=== PATIENT | female | born 1950 | race Hispanic/Latino ===

== ENCOUNTER 2017-08-24 11:20 | Emergency (ER) | payer OTHER ==
--- OUTSIDE RECORDS SUMMARY | 2017-08-24 11:28 | XMS REPORT | Continuity of Care Document ---
:1950 Author Organization Interface Problems Problem Status Onset Classification Date Comments Source Date Reported LEFT POSTERIOR Active [facility] COMMUNICATING [address] [place] [address] Center ARTERY ANEU [facility] (<span Resolved Problem 06/23/2016 [place] ID="[id number]"> [address] [place] [address] Confirmed</span>) LFLT TRANSFER Active [id number] [place] [address] SAH Active [facility] Active [facility] Rehabilitation, [facility] Cerebral edema Active Problem 06/23/2016 [facility] DM (<span Resolved Problem 06/23/2016 [place] ID="[id number]"> Medical Center Confirmed</span>) 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 SAH (<span Active Problem 06/23/2016 [place] ID="[id number]"> [facility] Center Confirmed</span>) Hyperosmolality Active Problem 06/23/2016 [facility] and hypernatremia [facility] HTN (<span Active Problem 06/23/2016 [place] ID="[id number]"> Medical Center Confirmed</span>) Obstructive Active Problem 06/23/2016 [facility] hydrocephalus [facility] Acute and chronic Active Problem 06/23/2016 [facility] respiratory [facility] failure with hypoxia 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, [facility]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 [facility] HEMORRHAGE, UN NONTRAUMATIC Active [facility] HEMORRHAGE, U CEREBRAL ANEURYSM, Active [facility] NONRUPTURED [facility] Medications Medication Details Route Status Patient Ordering Order Source Instructions Provider Date Ondansetron 4 MG 4 mg=1 tab, PO, Active 06/20/ [facility] Oral Tablet Q8H, PRN 2017 Medical [Zofran] Nausea/vomiting, Center X 10 day, # 30 tab, 0 Refill(s) pneumococcal 0.5 mL, Route: Inactive 06/20[facility] capsular IM, Drug Form: 2017 Medical polysaccharide INJ, Daily, Center type 1 vaccine / Start date: pneumococcal 06/20/16 9:00:00 capsular CDT, Duration: 1 polysaccharide doses or times, type 10A vaccine Stop date: / pneumococcal 06/20/16 9:00:00 capsular CDTNotes: (Same polysaccharide as: Pneumovax type 11A vaccine 23) Refrigerate / pneumococcal capsular polysaccharide type 12F vaccine / pneumococcal capsular polysacchar Acetaminophen 1 tab, PO, Q6H, Active [place] 300 MG / Codeine PRN Pain, X 15 2017 Medical Phosphate 30 MG day, # 60 tab, 0 Center Oral Tablet Refill(s) [Tylenol with Codeine #3] senna 8.6 mg 17.2 mg=2 tab, Active [facility] oral tablet PO, Bedtime, PRN 2017 Medical Constipation, X Center 10 day, # 20 tab, 0 Refill(s) Docusate Sodium 100 mg=1 cap, Active [place] 100 MG Oral PO, BID, # 28 2017 Medical Capsule [Colace] cap, 0 Refill(s) Center Saline Flush 10 ml, Route: No Longer [place] 0.9% IVP, Drug Form: Active 2017 Medical INJ, Dosing Center Weight 72.727, kg, Q12H, Start date: 06/19/16 21:00:00 CDT, Duration: 30 day, Stop date: 07/19/16 9:00:00 CDTNotes: Same as: BD Posiflush Sterile sennosides, RESIDENTIAL 8.6 mg, 1 tab, No Longer [place] Route: PO, Drug Active 2016 Medical Form: TAB, Center Dosing Weight 72.727, kg, Q12H, Start date: 06/19/16 21:00:00 CDT, Duration: 30 day, Stop date: 07/19/16 9:00:00 CDTNotes: (Same as: Senokot) Docusate 100 mg, 1 cap, No Longer [place] Route: PO, Drug Active 2016 Medical form: CAP, Q12H, Center Dosing Weight 72.727, kg, Start date: 06/19/16 21:00:00 CDT, Duration: 30 day, Stop date: 07/19/16 9:00:00 CDTNotes: (Same as: Colace) (Do Not Crush) Tylenol 650 mg, 2 tab, No Longer [place] Route: PO, Drug Active 2016 Medical form: TAB, Q6H, Center Dosing Weight 72.727, kg, PRN Pain Score 1-3, Start date: 06/19/16 19:10:00 CDT, Duration: 30 day, Stop date: 07/19/16 19:09:00 CDTNotes: Do not exceed 4 gm/day. (Same as: Tylenol) Insulin regular 8 unit, 0.08 mL, No Longer [place] Route: SUB-Q, Active 2016 Medical Drug form: SOLN, Center TID-Before Meals, Dosing Weight 72.727, kg, PRN Blood Glucose Results, Start date: 06/19/16 16:10:00 CDT, Duration: 30 day, Stop date: 07/19/16 16:09:00 CDTNotes: (Same as: Humulin R) Roll in palms of hands gently; Do not shake vigorously. "single patient use only" (Restricted to patients requiring a dose > 60 units) WASTE: F/P - Black; E - Municipal Trash Bin Stable for 28 days at room temperature Expires in days from Da te Glucagon 1 mg, Route: IM, No Longer [facility] Drug form: Active 2017 Medical PDR/INJ, PRN, Center Dosing Weight 72.727, kg, PRN Blood Glucose Results, Start date: 06/19/16 16:10:00 CDT, Duration: 30 day, Stop date: 07/19/16 16:09:00 CDT Dextrose 50% 25 gm, 50 mL, No Longer [facility] Syringe Route: IVP, Drug Active 2016 Medical Form: INJ, Center Dosing Weight 72.727, kg, PRN, PRN Blood Glucose Results, Start date: 06/19/16 16:10:00 CDT, Duration: 30 day, Stop date: 07/19/16 16:09:00 CDT potassium 2 pkt, Route: No Longer [facility] phosphate-sodium PO, Drug Form: Active 2017 Medical phosphate 250 PDR/REC, Dosing Center mg-280 mg-160 mg Weight 72.727, oral powder for kg, PRN, PRN reconstitution Abnormal Lab Result, FOR ICU USE ONLY, Start date: 06/19/16 13:36:00 CDT, Duration: 30 day, Stop date: 07/19/16 13:35:00 CDTNotes: (Same as: Phos-NaK) Each 1.5 gm pkt has 250mg phosphorous. Mix w/2.5oz water and stir. potassium 45 mmol, 15 mL, No Longer [facility] phosphate + Route: IVPB, Active 2016 Medical sodium chloride PRN, Dosing Center 0.9% INJ 250 mL Weight 72.727, kg, PRN Abnormal Lab Result, Start date: 06/19/16 13:36:00 CDT, Duration: 30 day, Stop date: 07/19/16 13:35:00 CDT, FOR ICU USE ONLYNotes: (Same as: K Phosphate.) 1 mMol phoshate has 1.47 mEq potassium Infuse over 4 hours Magnesium 2 gm, 50 mL, No Longer [facility] Sulfate Route: IVPB, Active 2016 Medical Drug form: INJ, Center PRN, Dosing Weight 72.727, kg, PRN Abnormal Lab Result, Start date: 06/19/16 13:36:00 CDT, Duration: 30 day, Stop date: 07/19/16 13:35:00 CDT, FOR ICU USE ONLYNotes: WASTE: F/P - Sink; E - Municipal Trash Bin sodium phosphate 45 mmol, 15 mL, No Longer [facility] + sodium Route: IVPB, Active 2016 Medical chloride 0.9% PRN, Dosing Center INJ 250 mL Weight 72.727, kg, PRN Abnormal Lab Result, Start date: 06/19/16 13:36:00 CDT, Duration: 30 day, Stop date: 07/19/16 13:35:00 CDT, FOR ICU USE ONLY Magnesium Oxide 800 mg, 2 tab, No Longer [facility] Route: PO, Drug Active 2016 Medical form: TAB, PRN, Center Dosing Weight 72.727, kg, PRN Abnormal Lab Result, FOR ICU USE ONLY, Start date: 06/19/16 13:36:00 CDT, Duration: 30 day, Stop date: 07/19/16 13:35:00 CDTNotes: (Same as: Mag-Ox 400) Magnesium oxide 107bg=200le elemental magnesium Dose=____mg magnesium oxide (___mg elemental magnesium) potassium 20 mEq, 15 mL, No Longer [place] chloride Route: [place], Drug Active 2016 Medical form: LIQ, PRN, Center Dosing Weight 72.727, kg, PRN Abnormal Lab Result, Start date: 06/19/16 13:36:00 CDT, Duration: 30 day, Stop date: 07/19/16 13:35:00 CDT, FOR ICU USE ONLYNotes: (Same as: Potassium Chloride) Calcium 500 mg, 1 tab, No Longer [place] Carbonate 500 MG Route: PO, Drug Active 2016 Medical Chewable Tablet form: CHEWTAB, Center PRN, Dosing Weight 72.727, kg, PRN Abnormal Lab Result, FOR ICU USE ONLY, Start date: 06/19/16 13:36:00 CDT, Duration: 30 day, Stop date: 07/19/16 13:35:00 CDTNotes: (Same As: Tums) Calcium Carbonate 500 yn=857 mg elemental calcium Dose= mg calcium carbonate ( mg elemental calcium) Calcium 1 gm, 10 mL, No Longer [facility] Gluconate Route: IVPB, Active 2016 Medical PRN, Dosing Center Weight 72.727, kg, PRN Abnormal Lab Result, Start date: 06/19/16 13:36:00 CDT, Duration: 30 day, Stop date: 07/19/16 13:35:00 CDT, FOR ICU USE ONLYNotes: WASTE: F/P - Sink; E - Municipal Trash Bin Sodium Chloride 1,000 mL, Rate: No Longer [facility] 0.154 MEQ/ML 75 ml/hr, Infuse Active 2016 Medical Injectable over: 13.3 hr, [place] Solution Route: IV, Dosing Weight 72.727 kg, Total Volume: 1,000, Start date: 06/19/16 13:36:00 CDT, Duration: 30 day, Stop date: 07/19/16 13:35:00 CDT Saline Flush 10 ml, Route: No Longer [place] 0.9% IVP, Drug Form: Active 2017 Medical INJ, Dosing Center Weight 72.727, kg, PRN, PRN Line Flush, Start date: 06/19/16 13:36:00 CDT, Duration: 30 day, Stop date: 07/19/16 13:35:00 CDTNotes: Same as: BD Posiflush Sterile Ondansetron 4 mg, 2 mL, Inactive [place] Route: IVP, Drug 2016 Medical form: INJ, ONCE, Center Dosing Weight 72.727, kg, PRN Nausea & Vomiting, Start date: 06/19/16 10:50:00 CDTNotes: (Same as: Zofran) MEDICATION WASTE Product Size: 4 mg Product Wasted: 0__ mg Naloxone 0.4 mg, 1 mL, Inactive [place] Route: IVP, Drug 2016 Medical form: INJ, Center Q2MIN, Dosing Weight 72.727, kg, PRN Narcotic Reversal, Start date: 06/19/16 10:50:00 CDT, Duration: 8 doses or times, Stop date: Limited # of timesNotes: Same as Narcan Flumazenil 0.2 mg, 2 mL, Inactive [place] Route: IVP, Drug 2016 Medical form: INJ, PRN, Center Dosing Weight 72.727, kg, PRN Benzodiazepine Reversal, Initial dose, Start date: 06/19/16 10:50:00 CDT, Duration: 1 day, Stop date: 06/20/16 10:49:00 CDTNotes: (Same as: Romazicon) Omnipaque 350 150 ml, Route: Inactive [place] INTRAARTERIAL, 2017 Medical Dosing Weight Center 72.727, kg, ONCE, Start date: 06/19/16 10:26:00 CDT, Stop date: 06/19/16 10:26:00 CDT Lipitor PO, Daily, 0 Active [facility] Refill(s) 2016 Medical Center Aspirin 325 mg, PO, 0 Active [facility] Refill(s) 2017 Medical Center ceFAZolin 2 gm, 100 mL, Inactive [place] Route: IVPB, 2017 Medical Drug form: INJ, Center PRE OP, Start date: 06/19/16 1:00:00 CDT, Duration: 1 day, Stop date: 06/20/16 0:59:00 CDTNotes: Same as: Ancef Acetaminophen 650 mg, PO, Q6H, Active [place] PRN Pain Score 2016 Medical 1-5, 0 Refill(s) Center Trazodone 50 mg=1 tab, PO, Active [facility] Hydrochloride 50 Bedtime, # 30 2017 Medical MG Oral Tablet tab, 0 Refill(s) Center Sodium Chloride 1 gm=1 tab, PO, Active [place] 1000 MG Oral Q6H, # 120 tab, 2017 Medical Tablet 0 Refill(s) Center polyethylene 17 gm, PO, Active [facility] glycol 3350 oral Daily, X 30 day, 2017 Medical powder for # 527 gm, 0 Center reconstitution Refill(s) Metformin 1,000 mg=1 tab, Active [facility] hydrochloride PO, BID, # 60 2017 Medical 1000 MG Oral tab, 0 Refill(s) Center Tablet Benadryl Maximum 1 appl, Route: No Longer [place] Strength 2% TOP, QID, Drug Active 2016 Medical topical cream form: CRM, PRN Center as needed for itching, Start date: 03/24/16 12:08:00 DIRECTOR CAREER, Duration: 30 day, Stop date: 04/23/16 12:07:00 CDT Eucerin Plus 1 appl, Route: No Longer [place] topical lotion TOP, Drug Form: Active 2017 Medical LOT, Dosing Center Weight 75, kg, BID, PRN as needed for dry skin, Start date: 03/24/16 12:08:00 DIRECTOR CAREER, Duration: 30 day, Stop date: 04/23/16 12:07:00 CDTNotes: (Same as: Cetaphil Lotion) Nimodipine 30 mg, 1 mL, No Longer [place] Route: PO, Drug Active 2016 Medical form: SUSP, Center Q12H, Dosing Weight 90.009, kg, Start date: 03/22/16 21:00:00 DIRECTOR CAREER, Duration: 30 day, Stop date: 04/21/16 9:00:00 CDTNotes: (Same as Nimodipine oral suspension 30mg/ml) Instill dose into NG tube and then flush with 30ml of NS emollients, 1 appl, Route: No Longer [place] topical lotion TOP, Drug Form: Active 2017 Medical LOT, Dosing Center Weight 75, kg, BID, Start date: 03/21/16 20:00:00 DIRECTOR CAREER, Duration: 30 day, Stop date: 04/20/16 8:00:00 CSTNotes: (Same as: Cetaphil Lotion) SMOG Enema 900 mL, Route: No Longer [facility] MT, Drug Form: Active 2017 Medical PEPITO, Dosing Center Weight 75, kg, Daily, PRN Constipation, Start date: 03/21/16 16:50:00 DIRECTOR CAREER, Duration: 7 day, Stop date: 03/28/16 16:49:00 CSTNotes: Non formulary item saline for irrigation (1L bottle) 100 mL, mineral oil 100 mL, glycerine 100 mL. Dispense (300 ml) in 1L NS bottle Bisacodyl 10 mg, 1 supp, No Longer [facility] Route: MT, Drug Active 2016 Medical form: SUPP, Center Daily, Dosing Weight 75, kg, PRN Constipation, Start date: 03/21/16 16:49:00 DIRECTOR CAREER, Duration: 7 day, Stop date: 03/28/16 16:48:00 CSTNotes: (Same As: Dulcolax, Bisco-Lax) magnesium 150 ml, Route: No Longer [facility] citrate 58.2 PO, Drug Form: Active 2017 Medical MG/ML Oral LIQ, Dosing Center Solution Weight 75, kg, Daily, PRN Constipation, Start date: 03/21/16 16:49:00 DIRECTOR CAREER, Duration: 7 day, Stop date: 03/28/16 16:48:00 CSTNotes: (Same as: Citrate of Magnesia) Concentration: 1.745 gm / 30 mL mineral oil 30 ml, Route: Inactive [facility] PO, Drug Form: 2017 Medical LIQ, Dosing Center Weight 75, kg, ONCE, Start date: 03/21/16 10:24:00 DIRECTOR CAREER, Stop date: 03/21/16 10:24:00 DIRECTOR CAREER Milk of Magnesia 30 ml, Route: Inactive [facility] PO, Drug Form: 2017 Medical SUSP, Dosing Center Weight 75, kg, ONCE, Start date: 03/21/16 10:24:00 DIRECTOR CAREER, Stop date: 03/21/16 10:24:00 CSTNotes: (Same as: Milk of Magnesia, MOM) Metformin 1,000 mg, 2 tab, No Longer [facility] Route: PO, Drug Active 2016 Medical form: TAB, BID, Center Dosing Weight 75, kg, Start date: 03/20/16 20:00:00 DIRECTOR CAREER, Stop date: 04/19/16 8:00:00 CSTNotes: (Same as: Glucophage) Take with meal Nimodipine 60 mg, 2 mL, No Longer [facility] Route: PO, Drug Active 2016 Medical form: SUSP, Q8H, Center Dosing Weight 90.009, kg, Start date: 03/20/16 16:00:00 DIRECTOR CAREER, Duration: 30 day, Stop date: 04/19/16 8:00:00 CSTNotes: (Same as Nimodipine oral suspension 30mg/ml) Instill dose into NG tube and then flush with 30ml of NS Trazodone 50 mg, 1 tab, No Longer [facility] Hydrochloride 50 Route: PO, Drug Active 2016 Medical MG Oral Tablet form: TAB, Center Bedtime, Dosing Weight 75, kg, Start date: 03/19/16 21:00:00 DIRECTOR CAREER, Duration: 30 day, Stop date: 04/17/16 21:00:00 CSTNotes: (Same As: Desyrel) Metformin 500 mg, 1 tab, No Longer [facility] Route: PO, Drug Active 2016 Medical form: TAB, Center Breakfast, Dosing Weight 75, kg, Start date: 03/19/16 7:00:00 DIRECTOR CAREER, Duration: 30 day, Stop date: 04/17/16 7:00:00 CSTNotes: (Same as: Glucophage) Take with meal Menthol 0.0044 1 appl, Route: No Longer [facility] MG/MG / Zinc TOP, BID, Drug Active 2016 Medical Oxide 0.2 MG/MG form: OINT, PRN Center Topical Ointment Diaper Rash, [Calmoseptine Start date: Ointment] 03/18/16 16:34:00 DIRECTOR CAREER, Duration: 30 day, Stop date: 04/17/16 16:33:00 CSTNotes: (Same as: Calmoseptine) Insulin, Aspart, 2 unit, 0.02 mL, No Longer [facility] Human Route: SUB-Q, Active 2016 Medical Drug form: SOLN, Center Bedtime, Dosing Weight 75, kg, PRN Blood Glucose Results, Start date: 03/18/16 12:27:00 DIRECTOR CAREER, Duration: 30 day, Stop date: 04/17/16 12:26:00 CSTNotes: Roll in palms of hands gently; Do not shake vigorously. (Same as: NovoLOG) "single patient use only" WASTE: F/P - Black; E - Municipal Trash Bin Stable for 28 days at room temperature. Expires in days from Da te Dextrose 50% 12.5 gm, 25 mL, No Longer [facility] Syringe Route: IVP, Drug Active 2016 Medical Form: INJ, Center Dosing Weight 75, kg, PRN, PRN Blood Glucose Results, Start date: 03/18/16 12:27:00 DIRECTOR CAREER, Duration: 30 day, Stop date: 04/17/16 12:26:00 DIRECTOR CAREER Glucagon 1 mg, Route: IM, No Longer [facility] Drug form: Active 2017 Medical PDR/INJ, PRN, Center Dosing Weight 75, kg, PRN Blood Glucose Results, Start date: 03/18/16 12:27:00 DIRECTOR CAREER, Duration: 30 day, Stop date: 04/17/16 12:26:00 DIRECTOR CAREER Insulin, Aspart, 4 unit, Route: Inactive [facility] Human SUB-Q, ONCE, 2017 Medical Dosing Weight Center 75, kg, Start date: 03/15/16 22:18:00 DIRECTOR CAREER, Stop date: 03/15/16 22:18:00 DIRECTOR CAREER Insulin, Aspart, 4 unit, 0.04 mL, No Longer [facility] Human Route: SUB-Q, Active 2016 Medical Drug form: SOLN, Center ONCE, Dosing Weight 75, kg, Start date: 03/14/16 22:46:00 DIRECTOR CAREER, Stop date: 03/14/16 22:46:00 CSTNotes: Roll in palms of hands gently; Do not shake vigorously. (Same as: NovoLOG) "single patient use only" WASTE: F/P - Black; E - Municipal Trash Bin Stable for 28 days at room temperature. Expires in days from Da te Cipro 500 mg, 1 tab, No Longer [place] Route: PO, Drug Active 2016 Medical form: TAB, Center [id number], Dosing Weight 75, kg, Start date: 03/14/16 11:00:00 DIRECTOR CAREER, Duration: 30 day, Stop date: 04/12/16 23:00:00 CSTNotes: May interfere w/enteral feedings - Take 1 hr before or 2 hrs after antacids, dairy pdt & minerals. On empty stomach. Melatonin 3 MG 6 mg, 2 tab, No Longer [place] Extended Release Route: PO, Drug Active 2016 Medical Tablet Form: TAB, Center Dosing Weight 75, kg, Bedtime, Start date: 03/13/16 21:00:00 DIRECTOR CAREER, Stop date: 04/11/16 21:00:00 CSTNotes: (Same as: Melatonin) NovoLOG FlexPen 5 unit, 0.05 mL, No Longer [facility] Route: SUB-Q, Active 2016 Medical Drug form: SOLN, Center TID-Meals, Start date: 03/13/16 12:00:00 DIRECTOR CAREER, Stop date: 03/18/16 23:00:00 CSTNotes: Roll in palms of hands gently; Do not shake vigorously. (Same as: NovoLOG) "single patient use only" WASTE: F/P - Black; E - Municipal Trash Bin Stable for 28 days at room temperature. Expires in days from Da te Insulin regular 3 unit, Route: Inactive [facility] SUB-Q, 2017 Medical TID-Before Center Meals, Dosing Weight 75, kg, Start date: 03/13/16 11:30:00 DIRECTOR CAREER, Duration: 30 day, Stop date: 04/12/16 6:30:00 DIRECTOR CAREER Insulin Glargine 15 unit, 0.15 No Longer [facility] mL, Route: Active 2016 Medical SUB-Q, Drug Center form: SOLN, Daily, Dosing Weight 75, kg, Start date: 03/13/16 11:30:00 DIRECTOR CAREER, Stop date: 03/18/16 23:00:00 CSTNotes: Same as: Lantus) Do not hold insulin without contacting prescriber WASTE: F/P - Black; E - Municipal Trash Bin Glucagon 1 mg, Route: IM, Inactive [place] PRN, Dosing 2016 Medical Weight 75, kg, Center PRN Blood Glucose Results, Start date: 03/13/16 10:07:00 DIRECTOR CAREER, Duration: 30 day, Stop date: 04/12/16 10:06:00 DIRECTOR CAREER Dextrose 50% 25 mL, Route: Inactive [facility] Syringe IVP, Dosing 2017 Medical Weight 75, kg, Center PRN, PRN Blood Glucose Results, Start date: 03/13/16 10:07:00 DIRECTOR CAREER, Duration: 30 day, Stop date: 04/12/16 10:06:00 DIRECTOR CAREER Melatonin 3 MG 3 mg, 1 tab, No Longer [place] Extended Release Route: PO, Drug Active 2016 Medical Tablet Form: TAB, Center Dosing Weight 90.009, kg, Bedtime, Start date: 03/12/16 21:00:00 DIRECTOR CAREER, Duration: 30 day, Stop date: 04/10/16 21:00:00 CSTNotes: (Same as: Melatonin) Glucagon 1 mg, Route: IM, No Longer [facility] Drug form: Active 2017 Medical PDR/INJ, PRN, Center Dosing Weight 75, kg, PRN Blood Glucose Results, Start date: 03/12/16 15:24:00 DIRECTOR CAREER, Duration: 30 day, Stop date: 04/11/16 15:23:00 DIRECTOR CAREER Dextrose 50% 25 gm, 50 mL, No Longer [facility] Syringe Route: IVP, Drug Active 2017 Medical Form: INJ, Center Dosing Weight 75, kg, PRN, PRN Blood Glucose Results, Start date: 03/12/16 15:24:00 DIRECTOR CAREER, Duration: 30 day, Stop date: 04/11/16 15:23:00 DIRECTOR CAREER Insulin, Aspart, 10 unit, 0.1 mL, No Longer [facility] Human Route: SUB-Q, Active 2017 Medical Drug form: SOLN, Center TID-Before Meals, Dosing Weight 75, kg, PRN Blood Glucose Results, Start date: 03/12/16 15:24:00 DIRECTOR CAREER, Duration: 30 day, Stop date: 04/11/16 15:23:00 CSTNotes: Roll in palms of hands gently; Do not shake vigorously. (Same as: NovoLOG) "single patient use only" WASTE: F/P - Black; E - Municipal Trash Bin Stable for 28 days at room temperature. Expires in days from Da te sennosides, RESIDENTIAL 8.6 mg, 1 tab, No Longer [place] Route: PO, Drug Active 2016 Medical Form: TAB, Center Dosing Weight 90.009, kg, QNoon, Start date: 03/12/16 12:00:00 DIRECTOR CAREER, Duration: 30 day, Stop date: 04/10/16 12:00:00 CSTNotes: (Same as: Senokot) Saline Flush 10 ml, Route: No Longer [place] 0.9% IVP, Drug Form: Active 2017 Medical INJ, Dosing Center Weight 90.009, kg, Q12H, Start date: 03/12/16 9:00:00 DIRECTOR CAREER, Duration: 30 day, Stop date: 04/10/16 21:00:00 CSTNotes: (Same as: BD Posiflush) Keppra 500 mg, 1 tab, No Longer [place] Route: PO, Drug Active 2016 Medical form: TAB, Q12H, Center Dosing Weight 90.009, kg, Start date: 03/12/16 9:00:00 DIRECTOR CAREER, Duration: 30 day, Stop date: 04/10/16 21:00:00 CSTNotes: (Same as:Keppra) Buspar 5 mg, 1 tab, No Longer [place] Route: PO, Drug Active 2016 Medical form: TAB, TID, Center Dosing Weight 90.009, kg, Start date: 03/12/16 8:00:00 DIRECTOR CAREER, Stop date: 04/10/16 17:00:00 CSTNotes: (Same As: BuSpar) insulin, 40 unit, 0.4 mL, No Longer [place] isophane Route: SUB-Q, Active 2016 Medical Drug form: INJ, Center Q8H, Dosing Weight 90.009, kg, Start date: 03/12/16 8:00:00 DIRECTOR CAREER, Duration: 30 day, Stop date: 04/11/16 0:00:00 CSTNotes: Roll in palms of hands gently; Do not shake vigorously. (Same as: Humulin N) Do not hold insulin without contacting prescriber WASTE: F/P - Black; E - Municipal Trash Bin Stable for 28 days at room temperature Expires in days from Da te Miralax 17 gm, 1 pkt, No Longer [place] Route: PO, Drug Active 2016 Medical form: PWDR, Center Daily, Dosing Weight 90.009, kg, Start date: 03/12/16 8:00:00 DIRECTOR CAREER, Duration: 30 day, Stop date: 04/10/16 8:00:00 CSTNotes: Dissolve in 8 oz of water or juice. (Same as: Miralax) Docusate 100 mg, 1 cap, No Longer [place] Route: PO, Drug Active 2016 Medical form: CAP, BID, Center Dosing Weight 90.009, kg, Start date: 03/12/16 8:00:00 DIRECTOR CAREER, Duration: 30 day, Stop date: 04/10/16 20:00:00 CSTNotes: (Same as: Colace) (Do Not Crush) Insulin, Aspart, 4 unit, 0.04 mL, Inactive [place] Human Route: SUB-Q, 2016 Medical Drug form: SOLN, [place] TID-Before Meals, Dosing Weight 75, kg, PRN Blood Glucose Results, Start date: 03/12/16 3:15:00 DIRECTOR CAREER, Duration: 30 day, Stop date: 04/11/16 3:14:00 CSTNotes: Roll in palms of hands gently; Do not shake vigorously. (Same as: NovoLOG) "single patient use only" WASTE: F/P - Black; E - Municipal Trash Bin Stable for 28 days at room temperature. Expires in days from Da te Dextrose 50% 25 gm, 50 mL, Inactive [place] Syringe Route: IVP, Drug 2016 Medical Form: INJ, Center Dosing Weight 75, kg, PRN, PRN Blood Glucose Results, Start date: 03/12/16 3:15:00 DIRECTOR CAREER, Duration: 30 day, Stop date: 04/11/16 3:14:00 DIRECTOR CAREER Glucagon 1 mg, Route: IM, Inactive [place] Drug form: 2017 Medical PDR/INJ, PRN, Center Dosing Weight 75, kg, PRN Blood Glucose Results, Start date: 03/12/16 3:15:00 DIRECTOR CAREER, Duration: 30 day, Stop date: 04/11/16 3:14:00 DIRECTOR CAREER Sodium Chloride 1 gm, 1 tab, No Longer [place] 1000 MG Oral Route: PO, Drug Active 2016 Medical Tablet form: TAB, Q6H, Center Dosing Weight 90.009, kg, Start date: 03/12/16 0:00:00 DIRECTOR CAREER, Duration: 30 day, Stop date: 04/10/16 18:00:00 DIRECTOR CAREER Nimodipine 60 mg, 2 mL, No Longer [place] Route: PO, Drug Active 2016 Medical form: SUSP, Q4H, Center Dosing Weight 90.009, kg, Start date: 03/12/16 0:00:00 DIRECTOR CAREER, Duration: 30 day, Stop date: 04/10/16 20:00:00 CSTNotes: (Same as Nimodipine oral suspension 30mg/ml) Instill dose into NG tube and then flush with 30ml of NS heparin 5,000 unit, 1 No Longer [place] mL, Route: Active 2016 Medical SUB-Q, Drug Center form: INJ, Q8H, Dosing Weight 90.009, kg, Start date: 03/12/16 0:00:00 DIRECTOR CAREER, Duration: 30 day, Stop date: 04/10/16 16:00:00 CSTNotes: porcine heparin Seroquel 25 mg, 1 tab, No Longer [place] Route: PO, Drug Active 2016 Medical form: TAB, BID, Center Dosing Weight 90.009, kg, PRN Agitation, Start date: 03/11/16 21:52:00 DIRECTOR CAREER, Duration: 30 day, Stop date: 04/10/16 21:51:00 CSTNotes: (Same as: SEROquel) Tylenol 650 mg, 20.3 mL, No Longer [place] Route: PO, Drug Active 2016 Medical form: LIQ, Q4H, Center Dosing Weight 90.009, kg, PRN Pain Score 1-5, Start date: 03/11/16 21:52:00 DIRECTOR CAREER, Stop date: 04/10/16 21:51:00 CSTNotes: Max acetaminophen=40 00mg/day (4 gm/day). (Same as: Tylenol) Saline Flush 10 ml, Route: No Longer [place] 0.9% IVP, Drug Form: Active 2016 Medical INJ, Dosing Center Weight 90.009, kg, PRN, PRN Line Flush, Start date: 03/11/16 21:52:00 DIRECTOR CAREER, Duration: 30 day, Stop date: 04/10/16 21:51:00 CSTNotes: (Same as: BD Posiflush) POLYETHYLENE PO, Daily, 0 Active [facility] GLYCOL [id number] Refill(s) 2016 Medical Center Levetiracetam 500 mg=5 mL, PO, Active [facility] 100 MG/ML Oral Q12H, 0 2016 Medical Solution Refill(s) Center insulin isophane 40 unit, SUB-Q, Active [facility] ([facility]) 100 Q8H, 0 Refill(s) 2017 Medical units/mL human Center recombinant subcutaneous suspension heparin 5,000 unit=1 mL, Active [place] SUB-Q, Q8H, 0 2016 Medical Refill(s) [place] bisacodyl 10 mg 10 mg=1 supp, Active [place] rectal MT, ONCE, PRN 2017 Medical suppository Constipation | Center once, 0 Refill(s) insulin, 40 unit, 0.4 mL, No Longer [place] isophane Route: SUB-Q, Active 2016 Medical Drug form: INJ, Center Q8H, Dosing Weight 90.009, kg, Start date: 03/10/16 16:00:00 DIRECTOR CAREER, Duration: 30 day, Stop date: 04/09/16 8:00:00 CSTNotes: Roll in palms of hands gently; Do not shake vigorously. (Same as: Humulin N) Do not hold insulin without contacting prescriber WASTE: F/P - Black; E - Municipal Trash Bin Stable for 28 days at room temperature Expires in days from Da te Keppra 500 mg, 5 mL, No Longer [place] Route: PO, Drug Active 2016 Medical form: SOLN, Center Q12H, Dosing Weight 90.009, kg, Start date: 03/10/16 9:00:00 DIRECTOR CAREER, Duration: 30 day, Stop date: 04/08/16 21:00:00 CSTNotes: Same as: Keppra Nimodipine 60 mg, 2 mL, No Longer [place] Route: NJ, Drug Active 2016 Medical form: SUSP, Q4H, Center Dosing Weight 90.909, kg, Start date: 03/10/16 0:00:00 DIRECTOR CAREER, Duration: 30 day, Stop date: 04/08/16 20:00:00 CSTNotes: (Same as Nimodipine oral suspension 30mg/ml) Instill dose into NG tube and then flush with 30ml of NS Sodium Chloride 1 gm, 1 tab, No Longer [place] 1000 MG Oral Route: PO, Drug Active 2016 Medical Tablet form: TAB, Q6H, Center Dosing Weight 90.009, kg, Priority: NOW, Start date: 03/09/16 18:11:00 DIRECTOR CAREER, Duration: 30 day, Stop date: 04/08/16 18:00:00 DIRECTOR CAREER Ancef + sodium 2 gm, Route: Inactive [place] chloride 0.9% IVPB, ONCE, 2017 Medical INJ 100 mL Dosing Weight Center 90.009, kg, Start date: 03/08/16 10:55:00 DIRECTOR CAREER, Duration: 1 doses or times, Stop date: 03/08/16 10:55:00 DIRECTOR CAREER, Surgical Prophylaxis Only; For patients Notes: (Same As: Ancef, Kefzol) Cefazolin FOR IV SET ONLY MEDICATION WASTE Product Size: 1000 mg Product Wasted: ___ mg Sodium Chloride 1,000 mL, 1,000 Inactive [place] 0.154 MEQ/ML ml/hr, Infuse 2016 Medical Injectable Over: 1 hr, Center Solution Route: IV, 1,000, Drug form: INJ, ONCE, Priority: STAT, Dosing Weight 90.009 kg, Start date: 03/08/16 6:25:00 DIRECTOR CAREER, Duration: 1 doses or times, Stop date: 03/08/16 6:25:00 DIRECTOR CAREER Sodium Chloride 250 mL, 250 Inactive [place] 0.154 MEQ/ML ml/hr, Infuse 2017 Medical Injectable Over: 1 hr, Center Solution Route: IV, 250, Drug form: INJ, ONCE, Priority: STAT, Dosing Weight 90.009 kg, Start date: 03/07/16 14:24:00 DIRECTOR CAREER, Duration: 1 doses or times, Stop date: 03/07/16 14:24:00 DIRECTOR CAREER Sodium Chloride 500 mL, 500 Inactive [place] 0.154 MEQ/ML ml/hr, Infuse 2017 Medical Injectable Over: 1 hr, Center Solution Route: IV, 500, Drug form: INJ, ONCE, Priority: STAT, Dosing Weight 90.009 kg, Start date: 03/06/16 7:54:00 DIRECTOR CAREER, Duration: 1 doses or times, Stop date: 03/06/16 7:54:00 DIRECTOR CAREER Sodium Chloride 500 mL, 500 Inactive [place] 0.154 MEQ/ML ml/hr, Infuse 2017 Medical Injectable Over: 1 hr, Center Solution Route: IV, 500, Drug form: INJ, ONCE, Priority: STAT, Dosing Weight 90.009 kg, Start date: 03/06/16 6:30:00 DIRECTOR CAREER, Duration: 1 doses or times, Stop date: 03/06/16 6:30:00 DIRECTOR CAREER Racepinephrine 11.25 mg, 0.5 Inactive [place] 22.5 MG/ML mL, Route: NEB, 2017 Medical Inhalant Drug Form: SOLN, Center Solution Dosing Weight 90.009, kg, RQ4H, Start date: 03/05/16 3:00:00 DIRECTOR CAREER, Duration: 30 day, Stop date: 04/03/16 23:00:00 CSTNotes: (racepinephrine *2.25% inh 0.5ml SOLN) (Same as:S2) Dexamethasone 10 mg, 2.5 mL, Inactive [facility] Route: IV, Drug 2016 Medical form: INJ, ONCE, Center Dosing Weight 90.009, kg, Start date: 03/05/16 0:42:00 DIRECTOR CAREER, Stop date: 03/05/16 0:42:00 CSTNotes: Concentration: 4mg/ml Ondansetron 4 mg, 2 mL, Inactive [facility] Route: IVP, Drug 2016 Medical form: INJ, ONCE, Center Dosing Weight 90.009, kg, PRN Nausea & Vomiting, Start date: 03/04/16 17:03:00 CSTNotes: (Same as: Zofran) MEDICATION WASTE Product Size: 4 mg Product Wasted: ___ mg Flumazenil 0.2 mg, 2 mL, Inactive [place] Route: IVP, Drug 2016 Medical form: INJ, PRN, Center Dosing Weight 90.009, kg, PRN Benzodiazepine Reversal, Initial dose, Start date: 03/04/16 17:03:00 DIRECTOR CAREER, Duration: 30 day, Stop date: 04/03/16 17:02:00 CSTNotes: (Same as: Romazicon) Naloxone 0.4 mg, 1 mL, Inactive [facility] Route: IVP, Drug 2016 Medical form: INJ, Center Q2MIN, Dosing Weight 90.009, kg, PRN Narcotic Reversal, Start date: 03/04/16 17:03:00 DIRECTOR CAREER, Duration: 8 doses or times, Stop date: Limited # of timesNotes: Same as Narcan Labetalol 10 mg, 2 mL, Inactive [facility] Route: IVP, Drug 2016 Medical form: INJ, Center Q5Min, Dosing Weight 90.009, kg, PRN Elevated BP, Start date: 03/04/16 17:03:00 DIRECTOR CAREER, Duration: 5 doses or times, Stop date: Limited # of times esmolol 10 mg, Route: Inactive [facility] IVP, Q5Min, 2017 Medical Dosing Weight Center 90.009, kg, PRN Other -See Comment, Start date: 03/04/16 17:03:00 DIRECTOR CAREER, Duration: 5 doses or times, Stop date: Limited # of times Morphine 2 mg, 1 mL, Inactive [facility] Route: IVP, Drug 2016 Medical form: INJ, Center Q5Min, Dosing Weight 90.009, kg, PRN Pain Score 4-6, Start date: 03/04/16 17:03:00 DIRECTOR CAREER, Duration: 5 doses or times, Stop date: Limited # of timesNotes: (Same as:MORPhine Sulfate) Omnipaque 300 150 ml, Route: Inactive [place] INTRAARTERIAL, 2017 Medical Dosing Weight Center 90.009, kg, ONCE, Start date: 03/04/16 16:39:00 DIRECTOR CAREER, Stop date: 03/04/16 16:39:00 DIRECTOR CAREER Ampicillin 1 gm, Route: No Longer [place] IVPB, Drug form: Active 2017 Medical PDR/INJ, ABXQ6H, Center Dosing Weight 90.009, kg, Start date: 03/04/16 8:00:00 DIRECTOR CAREER, Duration: 30 day, Stop date: 04/03/16 2:00:00 CSTNotes: (Same as: Andriy) MEDICATION WASTE Product Size: 1000 mg Product Wasted: ___ mg Dulcolax 10 mg, 1 supp, No Longer [place] Laxative Route: MT, Drug Active 2016 Medical form: SUPP, Center ONCE, Dosing Weight 90.009, kg, PRN Constipation, Start date: 03/04/16 7:17:00 DIRECTOR CAREER, onceNotes: (Same As: Dulcolax, Bisco-Lax) magnesium 300 ml, Route: Inactive [place] citrate 58.2 PO, Drug Form: 2017 Medical MG/ML Oral LIQ, Dosing Center Solution Weight 90.009, kg, ONCE, Start date: 03/03/16 10:52:00 DIRECTOR CAREER, Stop date: 03/03/16 10:52:00 CSTNotes: (Same as: Citrate of Magnesia) Concentration: 1.745 gm / 30 mL Sodium Chloride 500 mL, 500 Inactive [place] 0.154 MEQ/ML ml/hr, Infuse 2017 Medical Injectable Over: 1 hr, Center Solution Route: IV, 500, Drug form: INJ, ONCE, Priority: STAT, Dosing Weight 90.009 kg, Start date: 03/03/16 8:37:00 DIRECTOR CAREER, Duration: 1 doses or times, Stop date: 03/03/16 8:37:00 DIRECTOR CAREER Sodium Chloride 500 mL, 500 Inactive [facility] 0.154 MEQ/ML ml/hr, Infuse 2017 Medical Injectable Over: 1 hr, Center Solution Route: IV, 500, Drug form: INJ, ONCE, Priority: STAT, Dosing Weight 90.009 kg, Start date: 03/02/16 21:40:00 DIRECTOR CAREER, Duration: 1 doses or times, Stop date: 03/02/16 21:40:00 DIRECTOR CAREER Tylenol 650 mg, 20.3 mL, No Longer [place] Route: PO, Drug Active 2016 Medical form: LIQ, Q6H, Center Dosing Weight 90.009, kg, PRN Pain Score 1-3, Start date: 03/02/16 10:25:00 DIRECTOR CAREER, Stop date: 04/01/16 10:24:00 CSTNotes: Max acetaminophen=40 00mg/day (4 gm/day). (Same as: Tylenol) Dulcolax 10 mg, 1 supp, No Longer [place] Laxative Route: MT, Drug Active 2016 Medical form: SUPP, Center ONCE, Dosing Weight 90.009, kg, PRN Other -See Comment, Start date: 03/02/16 9:14:00 DIRECTOR CAREER, onceNotes: (Same As: Dulcolax, Bisco-Lax) Sodium Chloride 1,000 mL, 1,000 Inactive [place] 0.154 MEQ/ML ml/hr, Infuse 2017 Medical Injectable Over: 1 hr, [place] Solution Route: IV, 1,000, Drug form: INJ, ONCE, Priority: STAT, Dosing Weight 90.009 kg, Start date: 03/02/16 9:04:00 DIRECTOR CAREER, Duration: 1 doses or times, Stop date: 03/02/16 9:04:00 DIRECTOR CAREER Dexamethasone 4 mg, 1 tab, Inactive [place] Route: NJ, Drug 2016 Medical form: TAB, Center Daily, Dosing Weight 90.009, kg, Start date: 03/02/16 9:00:00 DIRECTOR CAREER, Stop date: 03/02/16 12:00:00 CSTNotes: Give with food. (Same As: Decadron) Zantac 150 mg, 10 mL, No Longer [place] Route: NJ, Drug Active 2016 Medical form: SYRP, Center Q12H, Start date: 03/01/16 21:00:00 DIRECTOR CAREER, Duration: 30 day, Stop date: 03/31/16 9:00:00 CSTNotes: (Same as:Zantac) Take before or with meals Racepinephrine 11.25 mg, 0.5 No Longer [place] 22.5 MG/ML mL, Route: NEB, Active 2016 Medical Inhalant Drug Form: SOLN, Center Solution Dosing Weight 90.009, kg, RQ4H, STAT, Start date: 03/01/16 14:46:00 DIRECTOR CAREER, Duration: 30 day, Stop date: 03/31/16 11:00:00 CSTNotes: (racepinephrine *2.25% inh 0.5ml SOLN) (Same as:S2) Albuterol 0.83 2.49 mg, 3 mL, No Longer [place] MG/ML Inhalant Route: NEB, Drug Active 2016 Medical Solution form: SOLN, Center RQ2H, Dosing Weight 90.009, kg, PRN Wheezing, Start date: 03/01/16 14:46:00 DIRECTOR CAREER, Duration: 30 day, Stop date: 03/31/16 14:45:00 CSTNotes: SEE RT DOCUMENTATION (Same as: Betsy) Dulcolax 10 mg, 1 supp, No Longer [place] Laxative Route: MT, Drug Active 2016 Medical form: SUPP, Center ONCE, Dosing Weight 90.009, kg, PRN Constipation, Start date: 03/01/16 7:49:00 DIRECTOR CAREER, onceNotes: (Same As: Dulcolax, Bisco-Lax) Fentanyl 1,000 microgram, No Longer [place] 20 mL, Rate: Active 2016 Medical Titrate, Start Center Dose: 50 microgram/hr, Titration: 25 microgram/hour every 15 minutes, Goal(s): RASS 0 to -1, Max Dose: 300 microgram/hr, Route: IV, Dosing Weight 90.009 kg, Total Volume: 20, Start date: 02/29/16 21:21:00 C... Dexamethasone 4 mg, 1 tab, No Longer [place] Route: NJ, Drug Active 2016 Medical form: TAB, Q12H, Center Dosing Weight 90.909, kg, Start date: 02/29/16 21:00:00 DIRECTOR CAREER, Stop date: 03/01/16 23:54:00 CSTNotes: Give with food. (Same As: Decadron) insulin, 50 unit, 0.5 mL, No Longer [place] isophane Route: SUB-Q, Active 2016 Medical Drug form: INJ, Center Q8H, Dosing Weight 90.009, kg, Start date: 02/29/16 16:00:00 DIRECTOR CAREER, Stop date: 03/30/16 8:00:00 CSTNotes: Roll in palms of hands gently; Do not shake vigorously. (Same as: Humulin N) Do not hold insulin without contacting prescriber WASTE: F/P - Black; E - [employer] Trash Bin Stable for 28 days at room temperature Expires in days from Da te sodium chloride 1,000 mL, Rate: No Longer [place] 0.9% 1000 ml INJ 100 ml/hr, Active 2016 Medical 1,000 mL Infuse over: 10 Center hr, Route: IV, Dosing Weight 90.009 kg, Total Volume: 1,000, Start date: 02/29/16 10:01:00 DIRECTOR CAREER, Stop date: 03/30/16 10:00:00 DIRECTOR CAREER magnesium 300 ml, Route: Inactive [place] citrate 58.2 PO, Drug Form: 2017 Medical MG/ML Oral LIQ, Dosing Center Solution Weight 90.009, kg, ONCE, Start date: 02/29/16 9:24:00 DIRECTOR CAREER, Stop date: 02/29/16 9:24:00 CSTNotes: (Same as: Citrate of Magnesia) Concentration: 1.745 gm / 30 mL Streptococcus 0.5 mL, Route: Inactive [place] pneumoniae IM, Drug Form: 2016 Medical serotype 1 INJ, Daily, Center capsular antigen Start date: diphtheria 02/29/16 9:00:00 [id number] protein DIRECTOR CAREER, Duration: 1 conjugate doses or times, vaccine / Stop date: Streptococcus 02/29/16 9:00:00 pneumoniae CSTNotes: (Same serotype 14 as: Prevnar 13) capsular antigen diphtheria [id number] protein conjugate vaccine / Streptococcus pneumoniae serotype 18C capsular antigen d Miralax 17 gm, 1 pkt, No Longer [place] Route: PO, Drug Active 2016 Medical form: PWDR, Center Daily, Dosing Weight 90.009, kg, Start date: 02/29/16 9:00:00 DIRECTOR CAREER, Duration: 30 day, Stop date: 03/29/16 9:00:00 CSTNotes: Dissolve in 8 oz of water or juice. (Same as: Miralax) Tylenol 650 mg, 20.3 mL, No Longer [place] Route: PO, Drug Active 2016 Medical form: LIQ, Q4H, Center Dosing Weight 90.009, kg, PRN Pain 1-3/Temp > 100.4 F, Start date: 02/29/16 5:47:00 DIRECTOR CAREER, Stop date: 03/30/16 5:46:00 CSTNotes: Max acetaminophen=40 00mg/day (4 gm/day). (Same as: Tylenol) Sodium Chloride 500 mL, 500 No Longer [place] 0.154 MEQ/ML ml/hr, Infuse Active 2016 Medical Injectable Over: 1 hr, [place] Solution Route: IV, 500, Drug form: INJ, ONCE, Priority: STAT, Dosing Weight 90.009 kg, Start date: 02/28/16 23:36:00 DIRECTOR CAREER, Duration: 1 doses or times, Stop date: 02/28/16 23:36:00 DIRECTOR CAREER Sodium Chloride 1,000 mL, 1,000 Inactive [place] 0.154 MEQ/ML ml/hr, Infuse 2017 Medical Injectable Over: 1 hr, [place] Solution Route: IV, 1,000, Drug form: INJ, ONCE, Priority: STAT, Dosing Weight 90.009 kg, Start date: 02/28/16 22:21:00 DIRECTOR CAREER, Duration: 1 doses or times, Stop date: 02/28/16 22:21:00 DIRECTOR CAREER Insulin regular 9 unit, 0.09 mL, No Longer [place] Route: SUB-Q, Active 2016 Medical Drug form: SOLN, Center Sliding Scale, Dosing Weight 90.009, kg, PRN Blood Glucose Results, Start date: 02/28/16 10:21:00 DIRECTOR CAREER, Duration: 30 day, Stop date: 03/29/16 10:20:00 CSTNotes: (Same as: Humulin R) Roll in palms of hands gently; Do not shake vigorously. "single patient use only" (Restricted to patients requiring a dose > 60 units) WASTE: F/P - Black; E - Municipal Trash Bin Stable for 28 days at room temperature Expires in days from Da te Dextrose 50% 12.5 gm, 25 mL, No Longer [facility] Syringe Route: IVP, Drug Active 2016 Medical Form: INJ, Center Dosing Weight 90.009, kg, PRN, PRN Blood Glucose Results, Start date: 02/28/16 10:21:00 DIRECTOR CAREER, Duration: 30 day, Stop date: 03/29/16 10:20:00 DIRECTOR CAREER Glucagon 1 mg, Route: IM, No Longer [facility] Drug form: Active 2017 Medical PDR/INJ, PRN, Center Dosing Weight 90.009, kg, PRN Blood Glucose Results, Start date: 02/28/16 10:21:00 DIRECTOR CAREER, Duration: 30 day, Stop date: 03/29/16 10:20:00 DIRECTOR CAREER insulin, 30 unit, 0.3 mL, No Longer [facility] isophane Route: SUB-Q, Active 2016 Medical Drug form: INJ, Center Q8H, Dosing Weight 90.009, kg, Start date: 02/28/16 9:00:00 DIRECTOR CAREER, Duration: 30 day, Stop date: 03/29/16 8:00:00 CSTNotes: Roll in palms of hands gently; Do not shake vigorously. (Same as: Humulin N) Do not hold insulin without contacting prescriber WASTE: F/P - Black; E - Municipal Trash Bin Stable for 28 days at room temperature Expires in days from Da te Regular Insulin, 3 unit, 0.03 mL, Inactive [place] Human 100 UNT/ML Route: SUB-Q, 2017 Medical Injectable Drug form: SOLN, Center Solution PRN, Dosing Weight 90.009, kg, PRN Abnormal Lab Result, Start date: 02/28/16 6:56:00 DIRECTOR CAREER, Duration: 30 day, Stop date: 03/29/16 6:55:00 CSTNotes: (Same as: Humulin R) Roll in palms of hands gently; Do not shake vigorously. "single patient use only" (Restricted to patients requiring a dose > 60 units) WASTE: F/P - Black; E - Municipal Trash Bin Stable for 28 days at room temperature Expires in days from Da te Dextrose 50% 6.25 gm, 12.5 Inactive [place] Syringe mL, Route: IVP, 2016 Medical Drug Form: INJ, Center Dosing Weight 90.009, kg, PRN, PRN Abnormal Lab Result, Start date: 02/28/16 6:56:00 DIRECTOR CAREER, Duration: 30 day, Stop date: 03/29/16 6:55:00 DIRECTOR CAREER heparin 5,000 unit, 1 No Longer [place] mL, Route: Active 2017 Medical SUB-Q, Drug Center form: INJ, Q8H, Dosing Weight 90.009, kg, Start date: 02/28/16 0:01:00 DIRECTOR CAREER, Duration: 30 day, Stop date: 03/29/16 0:00:00 CSTNotes: porcine heparin Famotidine 20 mg, 1 tab, No Longer [place] Route: PO, Drug Active 2016 Medical form: TAB, Q12H, Center Dosing Weight 90.909, kg, Start date: 02/27/16 21:00:00 DIRECTOR CAREER, Duration: 30 day, Stop date: 03/28/16 9:00:00 CSTNotes: (Same as: Pepcid) Levetiracetam 500 mg, 1 tab, No Longer [place] 500 MG Oral Route: PO, Drug Active 2016 Medical Tablet [Keppra] form: TAB, Q12H, Center Dosing Weight 90.009, kg, Start date: 02/27/16 21:00:00 DIRECTOR CAREER, Duration: 30 day, Stop date: 03/28/16 9:00:00 CSTNotes: (Same as:Keppra) Dexamethasone 4 mg, 1 tab, No Longer [place] Route: PO, Drug Active 2016 Medical form: TAB, Q6H, Center Dosing Weight 90.909, kg, Start date: 02/27/16 12:00:00 DIRECTOR CAREER, Duration: 30 day, Stop date: 03/28/16 6:00:00 CSTNotes: Give with food. (Same As: Decadron) chlorhexidine 15 mL, Route: No Longer [place] gluconate 1.2 Swab Mouth, Q4H, Active 2016 Medical MG/ML Mouthwash Drug form: LIQ, Center Start date: 02/27/16 12:00:00 DIRECTOR CAREER, Duration: 30 day, Stop date: 03/28/16 8:00:00 CSTNotes: (Same As: Peridex) Sodium Chloride 1,000 mL, 1,000 Inactive [place] 0.154 MEQ/ML ml/hr, Infuse 2016 Medical Injectable Over: 1 hr, Center Solution Route: IV, 1,000, Drug form: INJ, ONCE, Priority: STAT, Dosing Weight 90.009 kg, Start date: 02/27/16 2:42:00 DIRECTOR CAREER, Duration: 1 doses or times, Stop date: 02/27/16 2:42:00 DIRECTOR CAREER Cefazolin 2 gm, Route: Inactive [place] IVPB, Drug form: 2016 Medical INJ, ABXQ8H, Center Dosing Weight 90.009, kg, Start date: 02/27/16 1:00:00 DIRECTOR CAREER, Duration: 24 hr, Stop date: 02/27/16 17:00:00 CSTNotes: (Same As: Hermelinda Thomas) Cefazolin FOR IV SET ONLY MEDICATION WASTE Product Size: 1000 mg Product Wasted: _0_ mg sodium chloride 500 mL, Rate: 50 No Longer [place] 3% INJ 500 mL ml/hr, Infuse Active 2016 Medical over: 10 hr, Center Route: IV, Dosing Weight 90.009 kg, Total Volume: 500, Start date: 02/27/16 0:34:00 DIRECTOR CAREER, Stop date: 03/28/16 0:33:00 CSTNotes: "Administer by central venous catheter or a peripherally inserted central catheter (PICC) line. 3% Sodium Chloride may be infused via peripheral administration into large vein (antecubital) only in the case of emergency for short term use until a central line can be inserted" (Same as: Hypertonic Saline 3%) concentration=0. 513 mEq/mL Sodium Chloride 120 mEq, 30 mL, No Longer [place] 4 MEQ/ML 60 ml/hr, Infuse Active 2016 Medical Injectable Over: 30 Center Solution minutes, Route: IV, 30, Drug form: INJ, ONCE, Dosing Weight 90.009 kg, Start date: 02/26/16 22:47:00 DIRECTOR CAREER, Duration: 1 doses or times, Stop date: 02/26/16 22:47:00 DIRECTOR CAREER Mannitol 100 gm, 500 mL, No Longer [place] Route: IVPB, Active 2016 Medical Drug form: INJ, Center ONCE, Dosing Weight 90.009, kg, Priority: NOW, Start date: 02/26/16 22:29:00 DIRECTOR CAREER, Stop date: 02/26/16 22:29:00 CSTNotes: (Same as: Osmitrol) Infuse through 5 micron or smaller filter WASTE: F/P - Sink; E - Municipal Trash Bin chlorhexidine 15 mL, Route: No Longer [place] gluconate 1.2 Swab Mouth, Active 2016 Medical MG/ML Mouthwash Q12H, Drug form: Center LIQ, Start date: 02/26/16 21:00:00 DIRECTOR CAREER, Duration: 30 day, Stop date: 03/27/16 9:00:00 CSTNotes: (Same As: Peridex) Calcium 1,000 mg, 2 tab, No Longer [place] Carbonate 500 MG Route: PO, Drug Active 2016 Medical Chewable Tablet form: CHEWTAB, Center PRN, Dosing Weight 90.009, kg, PRN Abnormal Lab Result, FOR ICU USE ONLY, Start date: 02/26/16 20:51:00 DIRECTOR CAREER, Duration: 30 day, Stop date: 03/27/16 20:50:00 CSTNotes: (Same As: Tums) Calcium Carbonate 500 md=223 mg elemental calcium Dose= mg calcium carbonate ( mg elemental calcium) Calcium 1 gm, 10 mL, No Longer [place] Gluconate Route: IVPB, Active 2016 Medical PRN, Dosing Center Weight 90.009, kg, PRN Abnormal Lab Result, Start date: 02/26/16 20:51:00 DIRECTOR CAREER, Duration: 30 day, Stop date: 03/27/16 20:50:00 DIRECTOR CAREER, FOR ICU USE ONLYNotes: WASTE: F/P - Sink; E - Municipal Trash Bin Magnesium 2 gm, 50 mL, No Longer [place] Sulfate Route: IVPB, Active 2016 Medical Drug form: INJ, Center PRN, Dosing Weight 90.009, kg, PRN Abnormal Lab Result, Start date: 02/26/16 20:51:00 DIRECTOR CAREER, Duration: 30 day, Stop date: 03/27/16 20:50:00 DIRECTOR CAREER, FOR ICU USE ONLYNotes: WASTE: F/P - Sink; E - Municipal Trash Bin potassium 2 pkt, Route: No Longer [place] phosphate-sodium PO, Drug Form: Active 2017 Medical phosphate 250 PDR/REC, Dosing Center mg-280 mg-160 mg Weight 90.009, oral powder for kg, PRN, PRN reconstitution Abnormal Lab Result, FOR ICU USE ONLY, Start date: 02/26/16 20:51:00 DIRECTOR CAREER, Duration: 30 day, Stop date: 03/27/16 20:50:00 CSTNotes: (Same as: Phos-NaK) Each 1.5 gm pkt has 250mg phosphorous. Mix w/2.5oz water and stir. Magnesium Oxide 800 mg, 2 tab, No Longer [place] Route: PO, Drug Active 2016 Medical form: TAB, PRN, Center Dosing Weight 90.009, kg, PRN Abnormal Lab Result, FOR ICU USE ONLY, Start date: 02/26/16 20:51:00 DIRECTOR CAREER, Duration: 30 day, Stop date: 03/27/16 20:50:00 CSTNotes: (Same as: Mag-Ox 400) Magnesium oxide 167tk=195sk elemental magnesium Dose=____mg magnesium oxide (___mg elemental magnesium) potassium 45 mmol, 15 mL, No Longer [place] phosphate + Route: IVPB, Active 2016 Medical sodium chloride PRN, Dosing Center 0.9% INJ 250 mL Weight 90.009, kg, PRN Abnormal Lab Result, Start date: 02/26/16 20:51:00 DIRECTOR CAREER, Duration: 30 day, Stop date: 03/27/16 20:50:00 DIRECTOR CAREER, FOR ICU USE ONLYNotes: (Same as: K Phosphate.) 1 mMol phoshate has 1.47 mEq potassium Infuse over 4 hours sodium phosphate 30 mmol, 10 mL, No Longer [place] + sodium Route: IVPB, Active 2016 Medical chloride 0.9% PRN, Dosing Center INJ 250 mL Weight 90.009, kg, PRN Abnormal Lab Result, Start date: 02/26/16 20:51:00 DIRECTOR CAREER, Duration: 30 day, Stop date: 03/27/16 20:50:00 DIRECTOR CAREER, FOR ICU USE ONLY potassium 20 mEq, 15 mL, No Longer [place] chloride Route: [place], Drug Active 2016 Medical form: LIQ, PRN, Center Dosing Weight 90.009, kg, PRN Abnormal Lab Result, Start date: 02/26/16 20:51:00 DIRECTOR CAREER, Duration: 30 day, Stop date: 03/27/16 20:50:00 DIRECTOR CAREER, FOR ICU USE ONLYNotes: (Same as: Potassium Chloride) Dextrose 50% 12.5 gm, 25 mL, No Longer [place] Syringe Route: IVP, Drug Active 2016 Medical Form: INJ, Center Dosing Weight 90.009, kg, PRN, PRN Blood Glucose Results, Start date: 02/26/16 20:50:00 DIRECTOR CAREER, Duration: 30 day, Stop date: 03/27/16 20:49:00 DIRECTOR CAREER Insulin regular 99 mL, Rate: No Longer [place] 100 unit + Start Insulin Active 2016 Medical sodium chloride Drip Per ICU Center 0.9% INJ 99 mL Protocol, Dosing Weight 90.009, kg, Route: IVPB, Total Volume: 100, Start Date: 02/26/16 20:50:00 DIRECTOR CAREER, Duration: 30 day, Stop date: 03/27/16 20:49:00 DIRECTOR CAREER, Replace Every: 24 hrNotes: (Same as: Humulin R and NovoLIN R) WASTE: F/P - Black; E - Municipal Trash Bin (Do not shake) Fentanyl 1,000 microgram, No Longer [place] 20 mL, Rate: Active 2017 Medical Titrate, Start Center Dose: 50 microgram/hr, Titration: 25 microgram/hour every 15 minutes, Goal(s): RASS 0 to -1, Max Dose: 300 microgram/hr, Route: IV, Dosing Weight 90.009 kg, Total Volume: 20, Start date: 02/26/16 20:48:00 C... Dilaudid 0.5 mg, 0.25 mL, No Longer [place] Route: IV, Drug Active 2016 Medical form: INJ, Q3H, Center Dosing Weight 90.009, kg, PRN Pain Score 7-10, Start date: 02/26/16 18:52:00 DIRECTOR CAREER, Duration: 30 day, Stop date: 03/27/16 18:51:00 CSTNotes: Same as Dilaudid Acetaminophen 1 tab, Route: No Longer [place] 325 MG / PO, Drug Form: Active 2017 Medical Hydrocodone TAB, Dosing Center Bitartrate 10 MG Weight 90.009, Oral Tablet kg, Q4H, PRN [[place] 10/325] Pain Score 4-6, Start date: 02/26/16 18:52:00 DIRECTOR CAREER, Duration: 30 day, Stop date: 03/27/16 18:51:00 CSTNotes: Do not exceed 4gm/day of acetaminophen. (Same as: [place] 325/10) Ancef 1 gm, Route: Inactive [place] IVPB, ONCE, 2016 Medical Dosing Weight Center 90.009, kg, Start date: 02/26/16 17:15:00 DIRECTOR CAREER, Stop date: 02/26/16 17:15:00 DIRECTOR CAREER Ancef 2 gm, Route: IV, Inactive [place] ONCE, Dosing 2017 Medical Weight 90.909, Center kg, Start date: 02/26/16 14:15:00 DIRECTOR CAREER, Duration: 1 doses or times, Stop date: 02/26/16 14:15:00 DIRECTOR CAREER, Surgical Prophylaxis Only; For patients Propofol 10 1,000 mg, 100 No Longer [place] MG/ML Injectable mL, Rate: Active 2017 Medical Suspension Titrate, Start Center Dose: 5 microgram/kg/min , Titration: 5 microgram/kg/min every 15 min, Goal(s): MAP 70-100, Max Dose: 50 microgram/kg/min , Route: IV, Dosing Weight 90.909 kg, Total Volume: 100, Start date: 02/26/16 11:59:00 DIRECTOR CAREER,... Fentanyl 50 microgram, 1 Inactive [place] mL, Route: IV, 2016 Medical Drug form: INJ, Center ONCE, Dosing Weight 90.909, kg, PRN Pain Score 7-10, Start date: 02/26/16 11:58:00 DIRECTOR CAREER, Pediatric Dosing; For procedure; > 50 kgNotes: (Same as: Sublimaze) Preservative free. chlorhexidine 15 mL, Route: No Longer [place] gluconate 1.2 Swab Mouth, PRN, Active 2017 Medical MG/ML Mouthwash Drug form: LIQ, Center PRN Other -See Comment, Start date: 02/26/16 9:39:00 DIRECTOR CAREER, Duration: 30 day, Stop date: 03/27/16 9:38:00 CSTNotes: (Same As: Peridex) Ancef + sodium 2 gm, Route: Inactive [place] chloride 0.9% IVPB, ONCE, 2017 Medical INJ 100 mL Dosing Weight Center 90.909, kg, Start date: 02/26/16 9:38:00 DIRECTOR CAREER, Duration: 1 doses or times, Stop date: 02/26/16 9:38:00 DIRECTOR CAREER, Surgical Prophylaxis Only; For patients Notes: (Same As: Ancef Kefzol) MEDICATION WASTE Product Size: 1000 mg Product Wasted: ___ mg Docusate 100 mg, 10 mL, No Longer [place] Route: [place], Drug Active 2016 Medical form: LIQ, Q12H, Center Dosing Weight 90.909, kg, Start date: 02/26/16 9:00:00 DIRECTOR CAREER, Stop date: 03/26/16 21:00:00 CSTNotes: (Same as: Colace) Famotidine 20 mg, 2 mL, No Longer [place] Route: IVP, Drug Active 2016 Medical form: INJ, Q12H, Center Dosing Weight 90.909, kg, Start date: 02/26/16 9:00:00 DIRECTOR CAREER, Duration: 30 day, Stop date: 03/26/16 21:00:00 CSTNotes: (Same as: Pepcid) sennosides, RESIDENTIAL 8.8 mg, 5 mL, No Longer [place] Route: [place], Drug Active 2016 Medical Form: SYRP, Center Dosing Weight 90.909, kg, Q12H, Start date: 02/26/16 9:00:00 DIRECTOR CAREER, Stop date: 03/26/16 21:00:00 CSTNotes: (Same as: Senokot) Levetiracetam 500 mg, Route: No Longer [place] IVPB, Q12H, Active 2016 Medical Dosing Weight Center 90.909, kg, Start date: 02/26/16 9:00:00 DIRECTOR CAREER, Duration: 30 day, Stop date: 03/26/16 21:00:00 CSTNotes: Same as Keppra Mix with 100 mL NS, LR or D5W MEDICATION WASTE Product Size: 500 mg Product Wasted: ___ mg Omnipaque 350 150 ml, Route: Inactive [place] INTRAARTERIAL, 2017 Medical Dosing Weight Center 90.909, kg, ONCE, Start date: 02/26/16 8:56:00 DIRECTOR CAREER, Stop date: 02/26/16 8:56:00 DIRECTOR CAREER Nimodipine 30 mg, 1 mL, No Longer [place] Route: [place], Drug Active 2016 Medical form: SUSP, Q2H, Center Dosing Weight 90.909, kg, Start date: 02/26/16 6:00:00 DIRECTOR CAREER, Stop date: 03/27/16 4:00:00 CSTNotes: (Same as Nimodipine oral suspension 30mg/ml) Instill dose into NG tube and then flush with 30ml of NS Dexamethasone 4 mg, 1 mL, No Longer [place] Route: IV, Drug Active 2016 Medical form: INJ, Q6H, Center Dosing Weight 90.909, kg, Start date: 02/26/16 6:00:00 DIRECTOR CAREER, Duration: 30 day, Stop date: 03/27/16 0:00:00 CSTNotes: Concentration: 4mg/ml Keppra 500 mg, Route: Inactive [place] IV, ONCE, Dosing 2017 Medical Weight 90.909, Center kg, Start date: 02/26/16 5:39:00 DIRECTOR CAREER, Stop date: 02/26/16 5:39:00 DIRECTOR CAREER Ondansetron 4 mg, Route: Inactive [place] IVP, Drug form: 2017 Medical INJ, ONCE, Center Dosing Weight 90.909, kg, Priority: STAT, Start date: 02/26/16 5:31:00 DIRECTOR CAREER, Stop date: 02/26/16 5:31:00 DIRECTOR CAREER Morphine 4 mg, Route: Inactive [place] IVP, ONCE, 2017 Medical Dosing Weight Center 90.909, kg, Priority: STAT, Start date: 02/26/16 5:31:00 DIRECTOR CAREER, Stop date: 02/26/16 5:31:00 DIRECTOR CAREER Dextrose 50% 6.25 gm, 12.5 Inactive [place] Syringe mL, Route: IVP, 2016 Medical Drug Form: INJ, Center Dosing Weight 90.909, kg, PRN, PRN Abnormal Lab Result, Start date: 02/26/16 4:09:00 DIRECTOR CAREER, Duration: 30 day, Stop date: 03/27/16 4:08:00 DIRECTOR CAREER Regular Insulin, 3 unit, 0.03 mL, Inactive [place] Human 100 UNT/ML Route: SUB-Q, 2017 Medical Injectable Drug form: SOLN, Center Solution PRN, Dosing Weight 90.909, kg, PRN Abnormal Lab Result, Start date: 02/26/16 4:09:00 DIRECTOR CAREER, Duration: 30 day, Stop date: 03/27/16 4:08:00 CSTNotes: (Same as: Humulin R) Roll in palms of hands gently; Do not shake vigorously. "single patient use only" (Restricted to patients requiring a dose > 60 units) WASTE: F/P - Black; E - AxioMx Trash Bin Stable for 28 days at room temperature Expires in days from Da te Sodium Chloride 1,000 mL, Rate: No Longer [place] 0.154 MEQ/ML 75 ml/hr, Infuse Active 2016 Medical Injectable over: 13.3 hr, Center Solution Route: IV, Dosing Weight 90.909 kg, Total Volume: 1,000, Start date: 02/26/16 4:09:00 DIRECTOR CAREER, Duration: 30 day, Stop date: 03/27/16 4:08:00 DIRECTOR CAREER iodixanol 100 mL, Route: Inactive [place] IVP, Drug Form: 2016 Medical SOLN, Dosing Center Weight 90.909, kg, ONCALL, STAT, Start date: 02/26/16 3:43:00 DIRECTOR CAREER, Duration: 1 doses or times, Dose=2.2ml/kg, Max [id number] -- "To be infused by Radiology Staff ONLY" Saline Flush 10 mL, Route: No Longer [place] 0.9% IVP, Drug Form: Active 2017 Medical INJ, Dosing Center Weight 90.909, kg, PRN, PRN Line Flush, Start date: 02/26/16 2:46:00 DIRECTOR CAREER, Duration: 30 day, Stop date: 03/27/16 2:45:00 CSTNotes: Same as: BD Posiflush Sterile Allergies, Adverse Reactions, Alerts Substance Category Reaction Severity Reaction Status Date Comments Source type Reported NKDA Assertion Drug Active [facility] Immunizations Immunization Date Given Site Status Last Comments Source Updated pneumococcal 06/20/2016 Not Given [facility] 23-valent vaccine [facility] pneumococcal 03/03/2016 Right completed [facility] 13-valent vaccine Deltoid [facility] Results Order Name Results Value Reference Date Interpretation Comments Source Range CHEM PANEL eGFR 89 06/20 Result Comment: The eGFR is calculated using the CKD-EPI formula. In most young, healthy individuals the eGFR will be >90 mL/ min/1.73m2. The eGFR declines with age. An eGFR of 60-89 may be normal in [facility] mL/min/1. some populations, particularly the elderly, for whom the CKD-EPI formula has not been extensively validated. Use of the eGFR is not recommended in the following populations: [address] Individuals with unstable creatinine concentrations, including patients and those with serious co-morbid conditions. Patients with extremes in muscle mass or diet. The data above are obtained from the National Kidney Disease Education Program (NKDEP) which additionally recommends that when the eGFR is used in patients with extremes of body mass index for purposes of drug dosing, the eGFR should be multiplied by the estimated BMI. CHEM PANEL AGAP 15.2 meq/L 10.0 - 06/20 [facility] 20.0 [facility] CHEM PANEL Calcium Lvl 8.7 mg/dL 8.5 - 10.5 06/20 [facility] CHEM PANEL Creatinine 0.71 mg/dL 0.50 - 06/20 [facility] Lvl 1.40 [facility] CHEM PANEL Potassium Lvl 4.2 meq/L 3.5 - 5.1 06/20 [facility] CHEM PANEL Sodium Lvl 138 meq/L 135 - 145 06/[address] [place] [address] CHEM PANEL CO2 25 meq/L 24 - 32 06/20 [facility] CHEM PANEL Chloride Lvl 102 meq/L 95 - 109 06/20 [place] /2017 [facility] CHEM PANEL Glucose Lvl 161 mg/dL 70 - 99 06/[address] CHEM PANEL BUN 13 mg/dL 7 - 22 06/20 2016 [facility] CHEM PANEL Magnesium Lvl 2.1 mg/dL 1.8 - 2.4 06/[address] CHEM PANEL Phosphorus 3.3 mg/dL 2.5 - 4.5 06/20 [facility] HEMATOLOGY RBC 4.34 M/CMM 4.20 - 06/20 [place] 5.40 /2016 [facility] HEMATOLOGY WBC 9.5 K/CMM 3.7 - 10.4 06/20 [facility] HEMATOLOGY Hgb 13.4 g/dL 12.0 - 06/20 16.0 [facility] HEMATOLOGY MCHC 33.8 g/dL 32.0 - 06/20 [facility] 36.0 [facility] HEMATOLOGY MCH 30.8 pg 27.0 - 06/20 31.0 [facility] HEMATOLOGY RDW 13.2 % 11.5 - 05 14.5 [facility] HEMATOLOGY MCV 91.0 fL 80.0 - 06/20 [facility] 98.0 [facility] HEMATOLOGY Hct 39.5 % 36.0 - 06/20 48.0 [facility] HEMATOLOGY Platelet 248 K/CMM 133 - 450 06/[address] [place] [address] HEMATOLOGY MPV 8.0 fL 7.4 - 10.4 06/[address] HEMATOLOGY Segs 77.7 % 45.0 - 06/20 75.0 [facility] HEMATOLOGY Lymphocytes 19.0 % 20.0 - 06/20 [place] 40.0 2017 [facility] HEMATOLOGY Monocytes # 0.3 K/CMM 0.0 - 0.8 06/[address] HEMATOLOGY Lymphocytes # 1.8 K/CMM 1.0 - 5.5 06/[address] HEMATOLOGY Monocytes 3.1 % 2.0 - 12.0 06/[address] HEMATOLOGY Basophils 0.2 % 0.0 - 1.0 06/[address] [place] [address] HEMATOLOGY Segs-Bands # 7.4 K/CMM 1.5 - 8.1 06/[address] PARATHYROID Ca Norm WB 1.10 1.05 - 06/20 [facility] PROFILE mMol/L 1. [facility] PARATHYROID Ca Ion WB 1.10 1.05 - 06/20 [facility] PROFILE mMol/L . [facility] BACTERIAL - MRSA by PCR Negative 06/19 [facility] SEROLOGY [facility] (06/19/16 3:52 PM) [place] HEMATOLOGY PTT 27.8 s 22.9 - 06/19 [place] 35.8 [facility] HEMATOLOGY PT 14.0 s 12.0 - 06/19 [facility] 14.7 [facility] HEMATOLOGY INR 1.06 0.85 - 06/19 [place] 1. [facility] HEMATOLOGY Plav Effect 268 PRU 06/19 [facility] Plt [facility] HEMATOLOGY ASA Effect 431 ARU 06/19 [facility] Plt [facility] HEMATOLOGY Plav Effect see note 06/19 Result [facility] Plt Comment: [facility] asked [place] for results to be removed,06/19 08:45 HEMATOLOGY ASA Effect see note 06/19 Result [facility] Comment: [facility] asked [facility] to remove results,06/19 08:45 ELECTROLYTE Potassium Lvl 4.2 meq/L 3.5 - 5.1 06/19 [facility] S [facility] ELECTROLYTE Creatinine 0.61 mg/dL 0.50 - 06/19 [facility] Lvl 1.40 [facility] ELECTROLYTE Sodium Lvl 139 meq/L 135 - 145 06/19 [facility] S [address] ELECTROLYTE eGFR 95 06/19 Result Comment: The eGFR is calculated using the CKD-EPI formula. In most young, healthy individuals the eGFR will be >90 mL/ min/1.73m2. The eGFR declines with age. An eGFR of 60-89 may be normal in [facility] mL/min/1.7 some populations, particularly the elderly, for whom the CKD-EPI formula has not been extensively validated. Use of the eGFR is not recommended in the following populations: [address] Individuals with unstable creatinine concentrations, including patients and those with serious co-morbid conditions. Patients with extremes in muscle mass or diet. The data above are obtained from the National Kidney Disease Education Program (NKDEP) which additionally recommends that when the eGFR is used in patients with extremes of body mass index for purposes of drug dosing, the eGFR should be multiplied by the estimated BMI. ELECTROLYTE Chloride Lvl 103 meq/L 95 - 109 06/19 [facility] ELECTROLYTE CO2 26 meq/L 24 - 32 06/19 [facility] 2016 [facility] ELECTROLYTE Calcium Lvl 9.2 mg/dL 8.5 - 10.5 06/19 [facility] 2016 [facility] ELECTROLYTE AGAP 14.2 meq/L 10.0 - 06/19 [facility] S 20.0 [facility] ELECTROLYTE BUN 20 mg/dL 7 - 22 06/19 [facility] ELECTROLYTE Glucose Lvl 123 mg/dL 70 - 99 06/19 [facility] HEMATOLOGY Platelet 249 K/CMM 133 - 450 06/19 [facility] HEMATOLOGY RDW 12.3 % 11.5 - 06/19 [facility] 14.5 [facility] HEMATOLOGY MCHC 33.1 g/dL 32.0 - 06/19 [facility] 36.0 [facility] HEMATOLOGY MPV 7.9 fL 7.4 - 10.4 06/19 2016 [facility] HEMATOLOGY Hct 40.4 % 36.0 - 06/19 [facility] 48.0 [facility] HEMATOLOGY Hgb 13.4 g/dL 12.0 - 06/19 [facility] 16.0 [facility] HEMATOLOGY WBC 10.0 K/CMM 3.7 - 10.4 06/19 [facility] HEMATOLOGY RBC 4.43 M/CMM 4.20 - 06/19 [place] 5.40 [facility] HEMATOLOGY MCV 91.1 fL 80.0 - 06/19 [place] 98.0 [facility] HEMATOLOGY MCH 30.2 pg 27.0 - 06/19 [place] 31.0 [facility] HEMATOLOGY Eosinophils # 0.1 K/CMM 0.0 - 0.[address] HEMATOLOGY Basophils # 0.0 K/CMM 0.0 - 0.2 06/19 2016 [facility] HEMATOLOGY Basophils 0.0 % 0.0 - 1.0 06/[address] HEMATOLOGY Eosinophils 1.2 % 0.0 - 4.0 06/[address] HEMATOLOGY Monocytes # 0.4 K/CMM 0.0 - 0.8 06/19 [facility] Lymphocytes # 4.7 K/CMM 1.0 - 5.5 06/19 [facility] HEMATOLOGY Segs-Bands # 4.8 K/CMM 1.5 - 8.1 06/19 [facility] HEMATOLOGY Segs 47.6 % 45.0 - 06/19 [facility] 75.0 [facility] HEMATOLOGY Lymphocytes 46.9 % 20.0 - 06/19 [facility] 40.0 [facility] HEMATOLOGY Monocytes 4.3 % 2.0 - 12.0 06/19 [facility] Angiogram Angiogram PROCEDURE: 06/19 - [facility] cervical cervical - Medical artery artery 1. Diagnostic Cerebral Angiogram: This report was dictated by a Piping Engineer/Fellow. I have personally reviewed the images as Center bilateral bilateral VR well as the Resident's interpretation and agree with the findings. VR 2. 3D angiography: Left internal carotid artery Read by: Bernard Overton MD Resident: Bernard Overton MD Dictated Date/time: 06/19/16 14:27 3. 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 Marrero. 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 Dr. Marrero requests for endovascular therapy of the left posterior communicating artery aneurysm since the aneurysm is amenable for endovascular treatment ATTENDING: Ji Mcdowell M.D. He was present and immediately available for entire procedure, performing all critical portions. Reviewed all angiographic results. FELLOW: Bernard Murray M.D. COMPARISON: Angiogram 03/04/2016 TECHNIQUE: Prior to the procedure, the technical aspects of the procedure, as well as potential risks and benefits, were explained to the patient. Specifically, the risks of cerebral infarction, hemorrh age, stent thrombosis/re-stenosis, stent migration, blindness, cranial nerve palsy, facial pain, anaphylaxis, renal failure, limb loss, , non- target embolization, groin hematoma, arterial dissectio n, arterial pseudoaneurysm, and arteriovenous fistula were discussed. PROCEDURE: Informed consent was obtained describing all the risks, benefits and alternatives of the procedure the patient was brought to the interventional suite placed in the supine position where mode rate sedation was administered under the supervision of the attending. The patient was then prepped and draped in sterile fashion. The Right femoral artery was accessed using single wall micropuncture technique and a 6 Polish sheath was placed. A 5 Polish Vert catheter was coaxially advanced with a 0.035 Terumo Glidewire through the sheath into aorta arch to select the below mentioned arteries using roadmap technique. Two-dimensional and selective 3-D cerebral angiogram runs were performed. After review of the angiography data, there was evidence of left posterior corticated artery aneurysm that i s considered amenable for balloon assisted coil embolization. And a magnified roadmap , a 6-Polish envFormotus DA guide catheter was telescoped over a long 5-Polish Vert catheter and positioned over the left internal carotid artery upper cervical segment. 5000 units of heparin were administered intravenously following sheath placement; additional boluses of heparin were administered at one-hour intervals. The ACT was checked to ensure that it was between 250-300. 3D rotational angiography of the left internal carotid artery was also performed for better delineation of the left posterior corticated artery aneurysm. Three-dimensional angiographic images were proce ssed on an independent workstation, and volume-rendered three-dimensional images were produced. A working projection obtained to best demonstrate the neck of the left posterior commuting artery aneurysm. Superselective catheterization of the left internal carotid artery was performed with 4 x 7 hyper form balloon to reconstruct the aneurysm neck . Then after and using an SL 10 microcatheter the left posterior corticated artery aneurysm was selected and 4 x 6 mm [place] coil was deployed to est ablish a framing basket that was filled by 1.5 x 2 mm Linda coils . Repeated cerebral angiogram was performed . The catheter was withdrawn. Right femoral artery angiogram was performed and the catheter was removed. The femoral artery sheath removed and closed by Application of Angio-Seal closure device Post procedure neurological examination was at the patient's baseline. The patient was was then transferred to interventional holding area for post procedure care. MEDICATIONS: 200 mcg nitroglycerin IA CONTRAST: 130 cc. RADIATION DOSE: Cumulative Air KERMA Frontal: 1485 mGy Cumulative Air KERMA Lateral: 685 mGy FLUOROSCOPY TIME: 25.9 minutes TASKS: 1. Right femoral artery catheterization with 2-D angiogram run 2. Left common carotid artery selective catheterization and 2D angiogram Runs 3. Left Internal carotid artery selective catheterization and 2D/3D angiogram Runs 4. Left internal carotid artery communicating segment superselective catheterization using 4 x 7 hyper form balloon 5. Balloon assisted coil embolization of unruptured left posterior communicating artery aneurysm 6. Application of Angio-Seal closure device FINDINGS: PRE-TREATMENT 1- Left common carotid artery: Left common carotid reveals normal takeoff of the cervical internal carotid artery and external carotid artery and terminal branches. The bifurcation is smooth without irr egularity or any significant evidence of atherosclerotic disease or stenosis. No early venous shunting is present. 2- Left external carotid artery: Common carotid artery injection shows normal opacification of the external carotid artery and its terminal branches. There is no evidence of tumor blush, arteriovenous shunting or other abnormalities. 3- Left internal carotid artery: Left internal carotid artery injection reveals brisk opacification of the internal carotid artery (ICA), middle cerebral artery (MCA), and the anterior cerebral artery (GABRIELLA). There is evidence of aneurysm formation associated with the left internal carotid artery communicating segment measuring 4 x 6 x 3.2 mm. Its origin associated with the posterior communicat ing artery No arteriovenous malformation or fistula. Capillary and Venous phases show normal opacification without any evidence of perfusion deficits or abnormal flow obstruction. FINDINGS: POST-TREATMENT 1- left internal carotid artery : Left internal carotid artery injection revealed brisk opacification of the left internal carotid artery, left middle cerebral artery and anterior cerebral artery. There is evidence of dense coiling mass associated with the previously described left posterior communicating artery aneurysm. The left posterior communicating artery is patent. Capillary and venous phases within normal IMPRESSION: 1. Left posterior communicating artery aneurysm. 2. Successful balloon assisted coil embolization of unruptured left posterior communicating artery aneurysm URINE AND UA Mucus Few /LPF None Seen 03/23 [facility] STOOL /LPF /[address] [place] [address] URINE AND UA WBC 1 /HPF 0 - 5 03/[address] URINE AND UA RBC null 0 - 2 03/[address] URINE AND UA Bacteria Occasional None Seen 03/23 [facility] STOOL /HPF /HPF /[address] [place] [address] URINE AND UA <=1.0 0.1 - 1.0 03/23 [facility] Urobilinogen mg/dL [facility] URINE AND UA Turbidity Clear Clear 03/23 [facility] (03/23/16 4:55 PM) [place] URINE AND UA Spec Grav 1.011 <=1.030 03/[address] URINE AND UA pH 6.0 5.0 - 8.0 03/[address] URINE AND UA Protein Negative Negative 03/23 [facility] mg/dL mg/dL [facility] URINE AND UA Color Yellow Yellow 03/23 [facility] *NA* [facility] (03/23/16 4:55 PM) URINE AND UA Sq Epi Few /LPF Few /LPF 03/[address] URINE AND UA Glucose Negative Negative 03/23 [facility] mg/dL mg/dL [facility] URINE AND UA Ketones Negative Negative 03/23 [facility] mg/dL mg/dL [address] [place] [address] URINE AND UA Bili Negative Negative 03/23 [facility] [address] [place] [address] *NA* [facility] (03/23/16 4:55 PM) URINE AND UA Blood Negative Negative 03/23 [facility] (03/23/16 4:55 PM) [place] [facility] URINE AND UA Nitrite Negative Negative 03/23 [facility] (03/23/16 4:55 PM) [place] URINE AND UA Leuk Est Negative Negative 03/23 [facility] (03/23/16 4:55 PM) [place] CHEM PANEL B/C Ratio 21 6 - 25 03/[address] CHEM PANEL AGAP 15.2 meq/L 10.0 - 03/22 [facility] 20.0 [facility] CHEM PANEL Globulin 4.0 g/dL 2.7 - 4.2 03/[address] CHEM PANEL A/G Ratio 0.8 0.7 - 1.6 03/[address] CHEM PANEL eGFR 76 03/22 Result Comment: The eGFR is calculated using the CKD-EPI formula. In most young, healthy individuals the eGFR will be >90 mL/ min/1.73m2. The eGFR declines with age. An eGFR of 60-89 may be normal [facility] [facility] mL/min/1.7 some populations, particularly the elderly, for whom the CKD-EPI formula has not been extensively validated. Use of the eGFR is not recommended in the following populations: [address] Individuals with unstable creatinine concentrations, including patients and those with serious co-morbid conditions. Patients with extremes in muscle mass or diet. The data above are obtained from the National Kidney Disease Education Program (NKDEP) which additionally recommends that when the eGFR is used in patients with extremes of body mass index for purposes of drug dosing, the eGFR should be multiplied by the estimated BMI. CHEM PANEL Bili Total 0.3 mg/dL 0.2 - 1.3 03/[address] CHEM PANEL CO2 28 meq/L 24 - 32 03/[address] CHEM PANEL Calcium Lvl 9.2 mg/dL 8.5 - 10.5 03/[address] CHEM PANEL Albumin Lvl 3.1 g/dL 3.5 - 5.0 03/[address] CHEM PANEL Potassium Lvl 4.2 meq/L 3.5 - 5.1 03/[address] CHEM PANEL Chloride Lvl 97 meq/L 95 - 109 03/[address] CHEM PANEL Total Protein 7.1 g/dL 6.4 - 8.4 03/[address] CHEM PANEL AST 34 unit/L 0 - 37 03/[address] CHEM PANEL ALT 59 unit/L 0 - 65 03/[address] CHEM PANEL Alk Phos 86 unit/L 39 - 136 03/[address] CHEM PANEL Glucose Lvl 194 mg/dL 70 - 99 03/[address] CHEM PANEL Sodium Lvl 136 meq/L 135 - 145 03/[address] CHEM PANEL BUN 17 mg/dL 7 - 22 03/[address] CHEM PANEL Creatinine 0.82 mg/dL 0.50 - 03/22 [facility] Lvl 1.40 [facility] HEMATOLOGY Segs-Bands # 4.2 K/CMM 1.5 - 8.1 03/[address] HEMATOLOGY Lymphocytes # 2.5 K/CMM 1.0 - 5.5 03/[address] HEMATOLOGY Basophils 0.6 % 0.0 - 1.0 03/[address] HEMATOLOGY Eosinophils 2.1 % 0.0 - 4.0 03/22 [facility] HEMATOLOGY Monocytes # 0.6 K/CMM 0.0 - 0.8 03/22 [facility] HEMATOLOGY Eosinophils # 0.2 K/CMM 0.0 - 0.5 03/22 [facility] HEMATOLOGY Monocytes 7.5 % 2.0 - 12.0 03/22 [facility] HEMATOLOGY Segs 56.8 % 45.0 - 03/22 75.0 [facility] HEMATOLOGY Lymphocytes 33.0 % 20.0 - 03/22 40.0 [facility] HEMATOLOGY MCH 32.0 pg 27.0 - 03/22 31.0 [facility] HEMATOLOGY MCHC 33.7 g/dL 32.0 - 03/22 36.0 [facility] HEMATOLOGY MPV 7.4 fL 7.4 - 10.4 03/22 [facility] HEMATOLOGY RDW 14.3 % 11.5 - 03/22 14.5 [facility] HEMATOLOGY Platelet 202 K/CMM 133 - 450 03/[address] [place] [address] HEMATOLOGY MCV 95.0 fL 80.0 - 03/22 98.0 [facility] HEMATOLOGY Hct 36.1 % 36.0 - 03/22 48.0 [facility] HEMATOLOGY Hgb 12.2 g/dL 12.0 - 03/22 16.0 [facility] HEMATOLOGY RBC 3.80 M/CMM 4.20 - 0210 5.40 [facility] HEMATOLOGY WBC 7.5 K/CMM 3.7 - 10.4 03/22 [facility] CHEM PANEL B/C Ratio 25 6 - 25 03/20 [facility] CHEM PANEL AGAP 15.1 meq/L 10.0 - 03/20 20.0 [facility] CHEM PANEL Globulin 4.6 g/dL 2.7 - 4.2 03/20 2016 [facility] CHEM PANEL A/G Ratio 0.7 0.7 - 1.6 03/[address] CHEM PANEL Alk Phos 86 unit/L 39 - 136 03/20 2016 [facility] CHEM PANEL Bili Total 0.4 mg/dL 0.2 - 1.3 03/[address] CHEM PANEL eGFR 93 03/20 Result Comment: The eGFR is calculated using the CKD-EPI formula. In most young, healthy individuals the eGFR will be >90 mL/ min/1.73m2. The eGFR declines with age. An eGFR of 60-89 may be normal in [facility] mL/min/1.7 /2016 some populations, particularly the elderly, for whom the CKD-EPI formula has not been extensively validated. Use of the eGFR is not recommended in the following populations: [address] Individuals with unstable creatinine concentrations, including patients and those with serious co-morbid conditions. Patients with extremes in muscle mass or diet. The data above are obtained from the National Kidney Disease Education Program (NKDEP) which additionally recommends that when the eGFR is used in patients with extremes of body mass index for purposes of drug dosing, the eGFR should be multiplied by the estimated BMI. CHEM PANEL ALT 74 unit/L 0 - 65 03/[address] CHEM PANEL AST 32 unit/L 0 - 37 03/[address] CHEM PANEL Albumin Lvl 3.4 g/dL 3.5 - 5.0 03/[address] CHEM PANEL Total Protein 8.0 g/dL 6.4 - 8.4 03/[address] CHEM PANEL Chloride Lvl 98 meq/L 95 - 109 03/[address] CHEM PANEL CO2 27 meq/L 24 - 32 03/[address] CHEM PANEL Calcium Lvl 9.6 mg/dL 8.5 - 10.5 03/[address] CHEM PANEL Creatinine 0.68 mg/dL 0.50 - 02 [facility] Lvl 1.40 [facility] CHEM PANEL Sodium Lvl 136 meq/L 135 - 145 03/[address] CHEM PANEL Potassium Lvl 4.1 meq/L 3.5 - 5.1 03/[address] CHEM PANEL Glucose Lvl 197 mg/dL 70 - 99 03/[address] CHEM PANEL BUN 17 mg/dL 7 - 22 03/[address] HEMATOLOGY Monocytes 6.1 % 2.0 - 12.0 03/[address] HEMATOLOGY Eosinophils 2.1 % 0.0 - 4.0 02/ [facility] HEMATOLOGY Lymphocytes 28.0 % 20.0 - 02/ 40.0 [facility] HEMATOLOGY Eosinophils # 0.2 K/CMM 0.0 - 0.5 03/20 [facility] HEMATOLOGY Basophils # 0.1 K/CMM 0.0 - 0.2 / [address] [place] [address] HEMATOLOGY Segs 63.1 % 45.0 - 02 [place] 75.0 [facility] HEMATOLOGY Lymphocytes # 2.4 K/CMM 1.0 - 5.5 03/20 [facility] HEMATOLOGY Monocytes # 0.5 K/CMM 0.0 - 0.8 03/20 [facility] HEMATOLOGY Basophils 0.7 % 0.0 - 1.0 03/20 [facility] HEMATOLOGY Segs-Bands # 5.3 K/CMM 1.5 - 8.1 03/[address] HEMATOLOGY Platelet 259 K/CMM 133 - 450 03/20 [facility] HEMATOLOGY MPV 8.4 fL 7.4 - 10.4 03/20 [facility] HEMATOLOGY MCV 94.9 fL 80.0 - 03/20 [facility] 98.0 [facility] HEMATOLOGY Hct 37.1 % 36.0 - 02 48.0 [facility] HEMATOLOGY Hgb 12.6 g/dL 12.0 - 02 16.0 [facility] HEMATOLOGY WBC 8.5 K/CMM 3.7 - 10.4 03/20 [facility] HEMATOLOGY RBC 3.90 M/CMM 4.20 - 02 [place] 5.40 [facility] HEMATOLOGY RDW 14.4 % 11.5 - 02 [facility] 14.5 [facility] HEMATOLOGY MCH 32.2 pg 27.0 - 02 31.0 [facility] HEMATOLOGY MCHC 33.9 g/dL 32.0 - 02 [facility] 36.0 [facility] CHEM PANEL eGFR 93 03/18 Result Comment: The eGFR is calculated using the CKD-EPI formula. In most young, healthy individuals the eGFR will be >90 mL/ min/1.73m2. The eGFR declines with age. An eGFR of 60-89 may be normal in [facility] mL/min/1.7 some populations, particularly the elderly, for whom the CKD-EPI formula has not been extensively validated. Use of the eGFR is not recommended in the following populations: [address] Individuals with unstable creatinine concentrations, including patients and those with serious co-morbid conditions. Patients with extremes in muscle mass or diet. The data above are obtained from the National Kidney Disease Education Program (NKDEP) which additionally recommends that when the eGFR is used in patients with extremes of body mass index for purposes of drug dosing, the eGFR should be multiplied by the estimated BMI. CHEM PANEL Glucose Lvl 198 mg/dL 70 - 99 03/[address] CHEM PANEL BUN 18 mg/dL 7 - 22 03/[address] CHEM PANEL Alk Phos 78 unit/L 39 - 136 03/[address] CHEM PANEL AST 35 unit/L 0 - 37 03/[address] CHEM PANEL ALT 74 unit/L 0 - 65 03/[address] CHEM PANEL Creatinine 0.67 mg/dL 0.50 - 02 [facility] Lvl 1.[address] [place] [address] CHEM PANEL Chloride Lvl 99 meq/L 95 - 109 03/[address] CHEM PANEL Potassium Lvl 3.9 meq/L 3.5 - 5.1 03/[address] CHEM PANEL Sodium Lvl 136 meq/L 135 - 145 03/[address] CHEM PANEL Total Protein 7.2 g/dL 6.4 - 8.4 03/[address] CHEM PANEL Calcium Lvl 9.1 mg/dL 8.5 - 10.5 03/[address] CHEM PANEL CO2 27 meq/L 24 - 32 03/[address] CHEM PANEL Albumin Lvl 3.1 g/dL 3.5 - 5.0 03/[address] CHEM PANEL Bili Total 0.3 mg/dL 0.2 - 1.3 03/[address] CHEM PANEL A/G Ratio 0.8 0.7 - 1.6 03/[address] CHEM PANEL Globulin 4.1 g/dL 2.7 - 4.2 03/[address] CHEM PANEL B/C Ratio 27 6 - [address] [place] [address] CHEM PANEL AGAP 13.9 meq/L 10.0 - 02 20.0 [facility] HEMATOLOGY Platelet 279 K/CMM 133 - 450 02 [facility] HEMATOLOGY MCH 32.4 pg 27.0 - 02 31.0 [facility] HEMATOLOGY MPV 8.1 fL 7.4 - 10.4 02 [facility] HEMATOLOGY MCHC 33.9 g/dL 32.0 - 02 [place] 36.0 [facility] HEMATOLOGY RDW 14.3 % 11.5 - 02 [facility] 14.5 [facility] HEMATOLOGY Hgb 11.8 g/dL 12.0 - 03/18 [facility] 16.0 [facility] HEMATOLOGY WBC 8.3 K/CMM 3.7 - 10.4 02 [facility] [address] [place] [address] HEMATOLOGY Hct 34.6 % 36.0 - 02 [facility] 48.0 [facility] HEMATOLOGY MCV 95.3 fL 80.0 - 03/18 [facility] 98.0 [facility] HEMATOLOGY RBC 3.63 M/CMM 4.20 - 02 [facility] 5.40 [facility] HEMATOLOGY Eosinophils # 0.2 K/CMM 0.0 - 0.5 03/18 [facility] [address] [place] [address] HEMATOLOGY Monocytes # 0.5 K/CMM 0.0 - 0.8 02 [facility] [address] [place] [address] HEMATOLOGY Lymphocytes # 2.6 K/CMM 1.0 - 5.5 02 [facility] [address] [place] [address] HEMATOLOGY Basophils # 0.1 K/CMM 0.0 - 0.2 02 [facility] [address] [place] [address] HEMATOLOGY Basophils 1.0 % 0.0 - 1.0 02 [facility] [address] [place] [address] HEMATOLOGY Eosinophils 2.0 % 0.0 - 4.0 02 [facility] [address] [place] [address] HEMATOLOGY Monocytes 6.2 % 2.0 - 12.0 03/[address] HEMATOLOGY Segs 59.4 % 45.0 - 02/06 [facility] 75.0 2017 [facility] HEMATOLOGY Lymphocytes 31.4 % 20.0 - 02/06 [facility] 40.0 [facility] HEMATOLOGY Segs-Bands # 4.9 K/CMM 1.5 - 8.1 03/[address] HEMATOLOGY Basophils # 0.1 K/CMM 0.0 - 0.2 03/[address] URINE AND UA Glucose 100mg/dL 03/[address] URINE AND UA Bacteria Few /HPF None Seen 03/14 [facility] /[facility] /[address] [place] [address] URINE AND UA Mucus Few /LPF None Seen 03/14 [facility] /LPF [address] [place] [address] URINE AND UA Nitrite Negative Negative 03/14 [facility] [address] [place] [address] (03/14/16 12:37 AM) [place] URINE AND UA Bili Negative Negative 03/[address] *NA* [place] (03/14/16 12:37 AM) URINE AND UA Blood Negative Negative 03/[address] (03/14/16 12:37 AM) [place] URINE AND UA 4.0 mg/dL 0.1 - 1.0 03/14 [facility] Urobilinogen /[address] [place] [address] URINE AND UA RBC 1 /HPF 0 - 2 03/[address] URINE AND UA WBC null 0 - 5 03/[address] URINE AND UA Sq Epi Occasional Few /LPF 03/14 [facility] /LPF [address] [place] [address] URINE AND UA Leuk Est Large Negative 03/14 [facility] [address] [place] [address] *ABN* [facility] (03/14/16 12:37 AM) URINE AND UA Color Yellow Yellow 03/14 [facility] [address] [place] [address] *NA* [place] (03/14/16 12:37 AM) URINE AND UA Protein Negative Negative 03/14 [facility] mg/dL mg/dL /[address] [place] [address] URINE AND UA Ketones Negative Negative 03/14 [facility] mg/dL mg/dL [address] [place] [address] URINE AND UA Turbidity Slight Clear 03/14 [facility] [address] [place] [address] *ABN* Center (03/14/16 12:37 AM) URINE AND UA Spec Grav 1.016 <=1.030 03/[address] URINE AND UA pH 5.5 5.0 - 8.0 03/[address] CHEM PANEL Phosphorus 4.1 mg/dL 2.5 - 4.5 03/[address] CHEM PANEL Magnesium Lvl 2.4 mg/dL 1.8 - 2.4 03/12 [facility] [address] [place] [address] IMMUNOLOGY Prealbumin 27.4 mg/dL 18.0 - 03/12 [facility] 45.0 [facility] CHEM PANEL Phosphorus 4.0 mg/dL 2.5 - 4.5 03/[address] CHEM PANEL Magnesium Lvl 2.4 mg/dL 1.8 - 2.4 03/[address] ELECTROLYTE AGAP 14.1 meq/L 10.0 - 03/11 [facility] 20.0 [facility] ELECTROLYTE eGFR 97 03/11 Result Comment: The eGFR is calculated using the CKD-EPI formula. In most young, healthy individuals the eGFR will be >90 mL/ min/1.73m2. The eGFR declines with age. An eGFR of 60-89 may be normal in [facility] mL/min/1.7 some populations, particularly the elderly, for whom the CKD-EPI formula has not been extensively validated. Use of the eGFR is not recommended in the following populations: [address] Individuals with unstable creatinine concentrations, including patients and those with serious co-morbid conditions. Patients with extremes in muscle mass or diet. The data above are obtained from the National Kidney Disease Education Program (NKDEP) which additionally recommends that when the eGFR is used in patients with extremes of body mass index for purposes of drug dosing, the eGFR should be multiplied by the estimated BMI. ELECTROLYTE BUN 20 mg/dL 7 - 22 03/[address] ELECTROLYTE Creatinine 0.59 mg/dL 0.50 - 03/11 [facility] Lvl 1.40 [facility] ELECTROLYTE Sodium Lvl 137 meq/L 135 - 145 03/[address] ELECTROLYTE Potassium Lvl 4.1 meq/L 3.5 - 5.1 03/[address] ELECTROLYTE CO2 23 meq/L 24 - 32 03/[address] ELECTROLYTE Chloride Lvl 104 meq/L 95 - 109 03/[address] ELECTROLYTE Calcium Lvl 8.6 mg/dL 8.5 - 10.5 03/[address] ELECTROLYTE Glucose Lvl 95 mg/dL 70 - 99 03/[address] HEMATOLOGY Lymphocytes # 3.3 K/CMM 1.0 - 5.5 03/11 [facility] HEMATOLOGY Segs-Bands # 9.6 K/CMM 1.5 - 8.1 03/11 [facility] HEMATOLOGY Segs 67.9 % 45.0 - 03/11 [place] 75.0 [facility] HEMATOLOGY Lymphocytes 23.3 % 20.0 - 03/11 [place] 40.0 [facility] HEMATOLOGY Monocytes 6.4 % 2.0 - 12.0 03/11 [facility] HEMATOLOGY Eosinophils 1.4 % 0.0 - 4.0 03/11 [facility] HEMATOLOGY Basophils 1.0 % 0.0 - 1.0 03/11 [facility] HEMATOLOGY Eosinophils # 0.2 K/CMM 0.0 - 0.5 03/11 [facility] HEMATOLOGY Basophils # 0.1 K/CMM 0.0 - 0.2 03/11 [facility] HEMATOLOGY Monocytes # 0.9 K/CMM 0.0 - 0.8 03/11 [facility] HEMATOLOGY MPV 8.3 fL 7.4 - 10.4 03/11 [facility] HEMATOLOGY MCH 32.2 pg 27.0 - 03/11 [place] 31.0 [facility] HEMATOLOGY MCV 94.2 fL 80.0 - 03/11 [place] 98.0 [facility] HEMATOLOGY Platelet 359 K/CMM 133 - 450 03/11 [facility] HEMATOLOGY MCHC 34.2 g/dL 32.0 - 03/11 [place] 36.0 [facility] HEMATOLOGY RDW 14.3 % 11.5 - 03/11 [place] 14.5 [facility] HEMATOLOGY Hct 33.8 % 36.0 - 03/11 [place] 48.0 [facility] HEMATOLOGY WBC 14.1 K/CMM 3.7 - 10.4 03/11 [facility] HEMATOLOGY Hgb 11.5 g/dL 12.0 - 03/11 [place] 16.0 [facility] HEMATOLOGY RBC 3.59 M/CMM 4.20 - 03/11 [place] 5.40 [facility] PARATHYROID Ca Ion WB 1.00 1.05 - 03/11 [facility] PROFILE mMol/L 1. [facility] PARATHYROID Ca Norm WB 1.06 1.05 - 03/11 [facility] PROFILE mMol/L 1. [facility] CHEM PANEL Magnesium Lvl 2.8 mg/dL 1.8 - 2.4 03/[address] CHEM PANEL eGFR 98 03/10 Result Comment: The eGFR is calculated using the CKD-EPI formula. In most young, healthy individuals the eGFR will be >90 mL/ min/1.73m2. The eGFR declines with age. An eGFR of 60-89 may be normal in [facility] mL/min/1.7 some populations, particularly the elderly, for whom the CKD-EPI formula has not been extensively validated. Use of the eGFR is not recommended in the following populations: [address] Individuals with unstable creatinine concentrations, including patients and those with serious co-morbid conditions. Patients with extremes in muscle mass or diet. The data above are obtained from the National Kidney Disease Education Program (NKDEP) which additionally recommends that when the eGFR is used in patients with extremes of body mass index for purposes of drug dosing, the eGFR should be multiplied by the estimated BMI. CHEM PANEL AGAP 9.6 meq/L 10.0 - 03/10 [facility] 20.0 [facility] CHEM PANEL Calcium Lvl 8.8 mg/dL 8.5 - 10.5 03/[address] CHEM PANEL Creatinine 0.58 mg/dL 0.50 - 03/10 [facility] Lvl 1.40 [facility] CHEM PANEL Potassium Lvl 3.6 meq/L 3.5 - 5.1 03/[address] CHEM PANEL Sodium Lvl 135 meq/L 135 - 145 03/[address] CHEM PANEL CO2 29 meq/L 24 - 32 03/[address] CHEM PANEL Chloride Lvl 100 meq/L 95 - 109 03/[address] CHEM PANEL Glucose Lvl 85 mg/dL 70 - 99 03/[address] CHEM PANEL BUN 20 mg/dL 7 - 22 03/[address] CHEM PANEL Phosphorus 4.2 mg/dL 2.5 - 4.5 03/[address] HEMATOLOGY WBC 15.8 K/CMM 3.7 - 10.4 03/[address] HEMATOLOGY RBC 3.55 M/CMM 4.20 - 03/10 [facility] 5.40 [facility] HEMATOLOGY RDW 13.5 % 11.5 - 03/10 14.5 [facility] HEMATOLOGY Platelet 333 K/CMM 133 - 450 03/10 [facility] HEMATOLOGY MPV 8.7 fL 7.4 - 10.4 03/10 [facility] HEMATOLOGY Hgb 11.1 g/dL 12.0 - 03/10 16.0 [facility] HEMATOLOGY Hct 33.9 % 36.0 - 03/10 48.0 [facility] HEMATOLOGY MCV 95.6 fL 80.0 - 03/10 98.0 [facility] HEMATOLOGY MCH 31.3 pg 27.0 - 03/10 31.0 [facility] HEMATOLOGY MCHC 32.7 g/dL 32.0 - 03/10 36.0 [facility] HEMATOLOGY Basophils # 0.2 K/CMM 0.0 - 0.2 03/10 [facility] HEMATOLOGY Monocytes # 1.3 K/CMM 0.0 - 0.8 03/10 [facility] HEMATOLOGY Eosinophils # 0.2 K/CMM 0.0 - 0.5 03/10 [facility] HEMATOLOGY Segs-Bands # 10.3 K/CMM 1.5 - 8.1 03/10 [facility] HEMATOLOGY Lymphocytes # 3.9 K/CMM 1.0 - 5.5 03/[address] [place] [address] HEMATOLOGY Basophils 1.0 % 0.0 - 1.0 03/10 [facility] HEMATOLOGY Eosinophils 1.1 % 0.0 - 4.0 03/10 [facility] HEMATOLOGY Segs 64.9 % 45.0 - 03/10 75.0 [facility] HEMATOLOGY Monocytes 8.2 % 2.0 - 12.0 03/10 [facility] HEMATOLOGY Lymphocytes 24.8 % 20.0 - 03/10 40.0 [facility] PARATHYROID Ca Norm WB 1.11 . - 03/10 [facility] PROFILE mMol/L 1. [facility] PARATHYROID Ca Ion WB 1.14 1.05 - 03/10 [facility] PROFILE mMol/L . [facility] ELECTROLYTE Sodium Lvl 133 meq/L 135 - 145 03/09 [facility] S /[address] [place] [address] CHEM PANEL Magnesium Lvl 2.3 mg/dL 1.8 - 2.4 03/[address] CHEM PANEL Phosphorus 3.4 mg/dL 2.5 - 4.5 03/[address] ELECTROLYTE AGAP 14.7 meq/L 10.0 - 03/09 [facility] 20.0 [facility] ELECTROLYTE eGFR 99 03/09 Result Comment: The eGFR is calculated using the CKD-EPI formula. In most young, healthy individuals the eGFR will be >90 mL/ min/1.73m2. The eGFR declines with age. An eGFR of 60-89 may be normal in [facility] mL/min/1.7 /2016 some populations, particularly the elderly, for whom the CKD-EPI formula has not been extensively validated. Use of the eGFR is not recommended in the following populations: [address] Individuals with unstable creatinine concentrations, including patients and those with serious co-morbid conditions. Patients with extremes in muscle mass or diet. The data above are obtained from the National Kidney Disease Education Program (NKDEP) which additionally recommends that when the eGFR is used in patients with extremes of body mass index for purposes of drug dosing, the eGFR should be multiplied by the estimated BMI. ELECTROLYTE BUN 19 mg/dL 7 - 22 03/09 [facility] [address] ELECTROLYTE Creatinine 0.56 mg/dL 0.50 - 03/09 [facility] Lvl 1.40 [facility] ELECTROLYTE Glucose Lvl 130 mg/dL 70 - 99 03/[address] ELECTROLYTE Potassium Lvl 3.7 meq/L 3.5 - 5.1 03/[address] ELECTROLYTE Chloride Lvl 100 meq/L 95 - 109 03/[address] ELECTROLYTE CO2 23 meq/L 24 - 32 03/[address] ELECTROLYTE Calcium Lvl 8.8 mg/dL 8.5 - 10.5 03/[address] HEMATOLOGY Segs-Bands # 11.6 K/CMM 1.5 - 8.1 03/[address] HEMATOLOGY Eosinophils 1.1 % 0.0 - 4.0 03/[address] HEMATOLOGY Basophils 1.0 % 0.0 - 1.0 03/[address] HEMATOLOGY Lymphocytes # 3.4 K/CMM 1.0 - 5.5 03/09 [facility] HEMATOLOGY Segs 70.0 % 45.0 - 03/09 75.0 [facility] HEMATOLOGY Monocytes 7.2 % 2.0 - 12.0 03/09 [facility] HEMATOLOGY Lymphocytes 20.7 % 20.0 - 03/09 [place] 40.0 [facility] HEMATOLOGY Monocytes # 1.2 K/CMM 0.0 - 0.8 03/09 [facility] HEMATOLOGY Basophils # 0.2 K/CMM 0.0 - 0.2 03/09 [facility] HEMATOLOGY Eosinophils # 0.2 K/CMM 0.0 - 0.5 03/09 [facility] HEMATOLOGY Platelet 330 K/CMM 133 - 450 03/09 [facility] HEMATOLOGY RDW 13.7 % 11.5 - 03/09 [facility] 14.5 [facility] HEMATOLOGY MPV 8.1 fL 7.4 - 10.4 03/09 [facility] HEMATOLOGY MCH 31.9 pg 27.0 - 03/09 [facility] 31.0 [facility] HEMATOLOGY Hct 33.3 % 36.0 - 03/09 [facility] 48.0 [facility] HEMATOLOGY MCV 94.1 fL 80.0 - 03/09 [facility] 98.0 [facility] HEMATOLOGY MCHC 33.8 g/dL 32.0 - 03/09 [facility] 36.0 [facility] HEMATOLOGY WBC 16.6 K/CMM 3.7 - 10.4 03/09 [facility] HEMATOLOGY Hgb 11.3 g/dL 12.0 - 03/09 [facility] 16.0 [facility] HEMATOLOGY RBC 3.54 M/CMM 4.20 - 03/09 [place] 5.40 [facility] PARATHYROID Ca Norm WB 1.06 . - 03/09 [facility] PROFILE mMol/L . [facility] PARATHYROID Ca Ion WB 1.02 . - 03/09 [facility] PROFILE mMol/L . [facility] BLOOD BANK ABO/Rh A POS 03/08 [facility] BLOOD BANK Antibody Scrn Negative 03/08 [facility] /2016 [facility] (03/08/16 12:29 AM) [place] HEMATOLOGY PTT 27.1 s 22.9 - 03/08 [facility] 35.8 /2016 [facility] HEMATOLOGY PT 14.3 s 12.0 - 03/08 [facility] 14.7 [facility] HEMATOLOGY INR 1.09 0.85 - 03/08 [facility] 1. [facility] Brain wo Brain wo EXAM: CT BRAIN WITHOUT CONTRAST 03/08 - [facility] contrast CT contrast CT /2016 - [facility] DATE: 03/08/2016 4:32 AM DIRECTOR CAREER Read by: [place] Nova Dictated Date/time: 03/08/16 14:00 Electronically Signed by: [place] Nova 03/08/16 14:05 FINAL REPORT INDICATION: Bleeding COMPARISON: Brain CT dated 02/28/2016 TECHNIQUE: Routine axial CT images of the brain were obtained, with reformatted images in the sagittal and coronal plane. 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 The parenchymal hemorrhage in the the right frontal lobe has decreased in attenuation, with persist ent edematous changes. Subarachnoid hemorrhage in the right frontoparietal convexity is still identified. There is a left frontal ventriculostomy terminating in the left frontal horn. The ventricular si ze is normal. The basal cisterns are patent. There is no midline shift. IMPRESSION: 1. Interval decrease in the attenuation of the right frontal hemorrhage. 2. Interval decrease in the amount of subarachnoid hemorrhage. BODY FLUIDS Protein CSF 60 mg/dL 15 - 45 03/07 [facility] Comment: Medical "Significant Center Findings called to Rene Capone_at _03/07/2016 18:38_by _ _.Read Back OK." BODY FLUIDS Lactic Acid 3.2 mMol/L 0.6 - 2.2 03/07 [facility] BODY FLUIDS Glucose CSF 129 mg/dL 45 - 80 03/07 2016 [facility] BODY FLUIDS Monocyte CSF 18 % 15 - 45 03/07 [facility] BODY FLUIDS Segs CSF 55 % 0 - 6 03/07 [facility] BODY FLUIDS Lymph CSF 27 % 40 - 80 03/07 [facility] BODY FLUIDS RBC CSF 82327 /mm3 0 - 03 03/07 [facility] BODY FLUIDS WBC CSF 69 /mm3 0 - 53 03/07 [facility] BODY FLUIDS Color CSF Red Colorless 03/07 [facility] *ABN* [place] (03/07/16 4:52 PM) BODY FLUIDS Clarity CSF Moderate Clear 03/07 [facility] *ABN* [place] (03/07/16 4:52 PM) BODY FLUIDS Tube Num CSF 1 03/07 [facility] BODY FLUIDS Supernat CSF Hemolyzed Colorless 03/07 [facility] *ABN* [place] (03/07/16 4:52 PM) URINE AND UA Sq Epi RARE 03/07 [facility] URINE AND UA Nitrite Negative Negative 03/07 [facility] (03/07/16 4:52 PM) [place] URINE AND UA Leuk Est Negative Negative 03/07 [facility] (03/07/16 4:52 PM) [place] URINE AND UA Blood Moderate Negative 03/07 [facility] *ABN* [place] (03/07/16 4:52 PM) URINE AND UA 0.2 EU/dL 0.1 - 1.0 03/07 [facility] Urobilinogen [facility] URINE AND UA Bili Negative Negative 03/07 [facility] *NA* [place] (03/07/16 4:52 PM) URINE AND UA Protein Negative Negative 03/07 [facility] (03/07/16 4:52 PM) [place] URINE AND UA Ketones Negative Negative 03/07 [facility] *NA* [place] (03/07/16 4:52 PM) URINE AND UA Glucose Negative Negative 03/07 [facility] (03/07/16 4:52 PM) [place] URINE AND UA Color Yellow Yellow 03/07 [facility] *NA* [place] (03/07/16 4:52 PM) URINE AND UA pH 6.5 5.0 - 8.0 03/07 [facility] STOOL [facility] URINE AND UA Turbidity Slight Cloudy Clear 03/07 [facility] (03/07/16 4:52 PM) [place] URINE AND UA Spec Grav 1.010 <=1.030 03/07 [facility] URINE AND UA RBC 12 /HPF 0 - 2 03/07 [facility] URINE AND UA Mucus Few /LPF None Seen 03/07 [facility] STOOL /LPF /[address] [place] [address] URINE AND UA Bacteria Few /HPF None Seen 03/07 [facility] STOOL /HPF /2016 [facility] URINE AND UA WBC 7 /HPF 0 - 5 03/07 [facility] /[address] [place] [address] Abdomen AP Abdomen AP DX EXAM: XR ABDOMEN 1 VIEW 03/06 - [facility] - [facility] DATE: 03/06/2016 2:24 AM DIRECTOR CAREER Read by: Michelle House MD Dictated Date/time: 03/06/16 09:25 Electronically Signed by: Michelle House 03/06/16 09:26 FINAL REPORT INDICATION: Tube placement/removal/reposition ADDITIONAL INFORMATION: None. COMPARISON: 03/05/2016 TECHNIQUE: AP view of the abdomen. FINDINGS: Dobbhoff tube in place, with the tip in the gastric body in the midline at level of L2. The Dobbhoff tube Appears slightly retracted from previous exam. Nonobstructive gas pattern. IMPRESSION: 1. Dobbhoff tube retracted with tip in the gastric body. BODY FLUIDS Glucose CSF 115 mg/dL 45 - 80 03/[address] [place] [address] BODY FLUIDS Protein CSF 52 mg/dL 15 - 45 03/[address] BODY FLUIDS Segs CSF 69 % 0 - 6 03/[address] BODY FLUIDS Lymph CSF 21 % 40 - 80 03/[address] BODY FLUIDS Monocyte CSF 10 % 15 - 45 03/[address] BODY FLUIDS Tube Num CSF [id number] 03/05 [facility] (03/05/16 4:02 PM) [place] BODY FLUIDS Color CSF Red Colorless 03/05 [facility] *ABN* [place] (03/05/16 4:02 PM) BODY FLUIDS Clarity CSF Marked Clear 03/05 [facility] [place] (03/05/16 4:02 PM) BODY FLUIDS Supernat CSF Hemolyzed Colorless 03/05 [facility] [place] (03/05/16 4:02 PM) BODY FLUIDS WBC CSF 233 /mm3 0 - 53 03/[address] BODY FLUIDS RBC CSF 60726 /mm3 0 - 03 03/[address] URINE AND UA <=1.0 0.1 - 1.0 03/05 [facility] Urobilinogen mg/dL [facility] URINE AND UA RBC 7 /HPF 0 - 2 03/05 [facility] URINE AND UA Mucus Few /LPF None Seen 03/05 [facility] STOOL /LPF [facility] URINE AND Micro? Not Indicated 03/05 [facility] *NA* [place] (03/05/16 9:24 AM) URINE AND UA Nitrite Negative Negative 03/05 [facility] (03/05/16 9:24 AM) [place] URINE AND UA WBC 1 /HPF 0 - 5 03/05 [facility] URINE AND UA Leuk Est Negative Negative 03/05 [facility] (03/05/16 9:24 AM) [place] URINE AND UA Turbidity Clear Clear 03/05 [facility] (03/05/16 9:24 AM) [place] URINE AND UA Spec Grav 1.011 <=1.030 03/05 [facility] URINE AND UA Bili Negative Negative 03/05 [facility] Medical *NA* [place] (03/05/16 9:24 AM) URINE AND UA Ketones Negative Negative 03/05 [facility] mg/dL mg/dL [facility] URINE AND UA Glucose 300 mg/dL Negative 03/05 [facility] mg/dL [facility] URINE AND UA Color Yellow Yellow 03/05 [facility] *NA* [place] (03/05/16 9:24 AM) URINE AND UA Blood Negative Negative 03/05 [facility] (03/05/16 9:24 AM) [place] URINE AND UA pH 7.0 5.0 - 8.0 03/05 [facility] URINE AND UA Protein Negative Negative 03/05 [facility] mg/dL mg/dL [facility] Abdomen AP Abdomen AP DX EXAM: XR ABDOMEN 1 VIEW 03/05 - [facility] - Medical EXAM: XR ABDOMEN 1 VIEW This report was dictated by a Piping Engineer/Fellow. I have personally reviewed the images as Center well as the Resident's interpretation and agree with the findings. Read by: Wing Daley MD Resident: Wing Daley MD Dictated Date/time: 03/05/16 10:42 DATE: 03/05/2016 at 1026 and 1027 hours. Electronically Signed by: José Manuel Garcia MD 03/05/16 11:36 FINAL REPORT INDICATION: Tube placement/removal/reposition COMPARISON: Abdominal radiograph dated 02/27/2016 TECHNIQUE: AP view of the abdomen. FINDINGS: 1026 hours: Lines, tubes and hardware: Feeding tube tip projects over the expected region of 1st portion of the duodenum. Lower thorax: Left lung base is clear. Left costophrenic sulcus is sharp. Right lung base is not seen. Bowel: Normal caliber with nonobstructive bowel gas pattern. Bones and soft tissues: No acute bony abnormality. 1027 hours: The feeding tube has been advanced with the tip now projecting over the 3rd portion of the duodenum. IMPRESSION: 1. Final image demonstrates feeding tube tip in 3rd portion of duodenum. 2. Nonobstructive bowel gas pattern. Angiogram Angiogram PROCEDURE: 03/04 - [facility] /2016 - Medical artery artery 1. Diagnostic Cerebral Angiogram: This report was dictated by a Piping Engineer/Fellow. I have personally reviewed the images as Center bilateral bilateral VR well as the Resident's interpretation and agree with the findings. 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 7 days follow-up cerebral angiogram is indicated to rule out vasospasm with plan for endovascular treatment ATTENDING: Mathieu Abdullahi M.D. He was present and immediately available for entire procedure, performing all critical portions. Reviewed all angiographic results. FELLOW: Bernard Murray M.D. COMPARISON: Cerebral angiogram 02/26/2016 PROCEDURE: Informed consent was obtained describing all the risks, benefits and alternatives of the procedure the patient was brought to the interventional suite placed in the supine position where gene ral anesthesia was administered under the supervision of the attending. The patient was then prepped and draped in sterile fashion. The Right femoral artery was accessed using single wall micropuncture technique and a 5 Polish sheath was placed. A 5 Polish Vert catheter was coaxially advanced with a 0.035 Terumo Glidewire through the sheath into aorta arch to select the below mentioned arteries using roadmap technique. Two-dimensional cerebral angiogram runs were performed. After review of the angiography data, the catheter was withdrawn. Right femoral artery angiogram was performed and the ramya ter was removed. The femoral artery sheath removed and closed by Application of Mynx closure device Post procedure neurological examination was at the patient's baseline. The patient was was then t ransferred to interventional holding area for post procedure care. CONTRAST: 50 cc. RADIATION DOSE: Cumulative Air KERMA Frontal: 544 mGy Cumulative Air KERMA Lateral: 83 mGy FLUOROSCOPY TIME: 5.8 minutes TASKS: 1. Right femoral artery catheterization with 2-D angiogram run 2. Right common carotid artery selective catheterization with 2D angiogram run 3. Right Internal carotid artery selective catheterization and 2D angiogram Runs 4. Left common carotid artery selective catheterization and 2D angiogram Runs 5. Left Internal carotid artery selective catheterization and 2D angiogram Runs 6. Left vertebral artery selective catheterization and 2D angiogram Runs 7. Application of Mynx closure device FINDINGS: 1- Right common carotid artery: Right common carotid reveals normal takeoff of the internal carotid artery and external carotid artery and terminal branches. The bifurcation is smooth without irregulari ty or any significant evidence of atherosclerotic disease or stenosis. No early venous shunting is present. 2- Right external carotid artery: Common carotid artery injection shows normal opacification of the external carotid artery and its terminal branches. There is no evidence of tumor blush, arteriovenous shunting or other abnormalities. 3- Right internal carotid artery: Right internal carotid artery injection revealed brisk opacification of the internal carotid artery (ICA), middle cerebral artery (MCA), and the anterior cerebral arter y (GABRIELLA). 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 There is evidence of mild to moderate vasospasm associa cathy with the right middle cerebral artery and right anterior cerebral artery with no flow limitation . No arteriovenous malformation or fistula. Capillary and Venous phases show normal opacification wit hout any evidence of perfusion deficits or abnormal flow obstruction. There is evidence of 6 mm midline shift associated with displacement of both anterior cerebral artery to the left . 4- Left common carotid artery: Left common carotid reveals normal takeoff of the cervical internal carotid artery and external carotid artery and terminal branches. The bifurcation is smooth without irr egularity or any significant evidence of atherosclerotic disease or stenosis. No early venous shunting is present. 5- Left external carotid artery: Common carotid artery injection shows normal opacification of the external carotid artery and its terminal branches. There is no evidence of tumor blush, arteriovenous shunting or other abnormalities. 6- Left internal carotid artery: Left internal carotid artery injection reveals revealed brisk opacification of the internal carotid artery (ICA), middle cerebral artery (MCA), and the anterior cerebra l artery (GABRIELLA). There is evidence of aneurysm formation associated with the left internal carotid artery, indicating segment measuring 3.61 x 2.94 mm within neck of 2.27 mm .No arteriovenous malformati on or fistula. Capillary and Venous phases show normal opacification without any evidence of perfusion deficits or abnormal flow obstruction. 7-Left vertebral artery: Left vertebral artery injection reveals brisk opacification of the left vertebral artery, left posterior inferior cerebellar artery, bilateral anterior inferior cerebellar arter y, bilateral superior cerebellar artery and bilateral posterior cerebral artery. There is evidence of origin of the left posterior cerebral artery. No aneurysm, arteriovenous fistula or malformati on. . Capillary and Venous phases show normal opacification without any evidence of perfusion deficits or abnormal flow obstruction. 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 - Mild to moderate vasospasm associated with the right middle cerebral artery right anterior cerebral artery and basilar trunk with no flow limitation. 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 BLOOD BANK Antibody Scrn Negative 03/04 [facility] RESULTS [facility] (03/04/16 12:31 AM) [place] BLOOD BANK ABO/Rh A POS 03/04 [facility] RESULTS /2016 [facility] HEMATOLOGY PTT 28.1 s 22.9 - 03/04 [place] 35.8 /2016 [facility] HEMATOLOGY PT 14.5 s 12.0 - 03/04 [place] 14.7 [facility] HEMATOLOGY INR 1.11 0.85 - 03/04 [place] 1. [facility] Chest 1view Chest 1view EXAM: XR CHEST 1 VIEW 03/02 - [facility] DX /2016 - [facility] DATE: 03/02/2016 3:00 AM DIRECTOR CAREER Read by: Eusebia Smith MD Dictated Date/time: 03/02/16 15:31 Electronically Signed by: Eusebia Smith MD 03/02/16 15:59 FINAL REPORT INDICATION: Tube placement/removal/reposition. FINDINGS: Comparison is made to yesterday. The cardiomediastinal silhouette is stable. There is a patchy left infrahilar opacity. The costophrenic sulci are sharp, without effusions. The endotracheal tube is been removed. Other life-support lines and tubes remain in place. IMPRESSION: 1. A patchy left infrahilar opacity could be due to atelectasis, aspiration , and/or pneumonia. 2. Extubated. BODY FLUIDS Protein CSF 87 mg/dL 15 - 45 03/01 [facility] Comment: Medical "Significant Center Findings called to Isaac Snatana 03/01/2016 17:12__by __.Read Back OK." BODY FLUIDS Lactic Acid 2.7 mMol/L 0.6 - 2.2 03/01 [facility] BODY FLUIDS Glucose CSF 78 mg/dL 45 - 80 03/[address] BODY FLUIDS Monocyte CSF 13 % 15 - 45 03/[address] BODY FLUIDS Lymph CSF 13 % 40 - 80 03/[address] BODY FLUIDS Segs CSF 74 % 0 - 6 03/[address] BODY FLUIDS WBC CSF 233 /mm3 0 - 53 03/[address] BODY FLUIDS RBC CSF 41714 /mm3 0 - 03 03/[address] BODY FLUIDS Clarity CSF Marked Clear 03/01 [facility] *ABN* [place] (03/01/16 3:14 PM) BODY FLUIDS Supernat CSF Hemolyzed Colorless [facility] [place] (03/01/16 3:14 PM) BODY FLUIDS Color CSF Red Colorless 03/01 [facility] [place] (03/01/16 3:14 PM) BODY FLUIDS Tube Num CSF xxxxxxx 03/01 [facility] (03/01/16 3:14 PM) Center Chest 1view Chest 1view EXAM: XR CHEST 1 VIEW 03/01 - [facility] DX DX - [facility] DATE: 03/01/2016 3:00 AM DIRECTOR CAREER Read by: Vasiliy Bui MD Dictated Date/time: 03/01/16 09:56 Electronically Signed by: Vasiliy Bui MD 03/01/16 09:57 FINAL REPORT INDICATION: Abnormal chest sounds COMPARISON: 02/29/2016 TECHNIQUE: AP chest IMPRESSION: 1. Lines and tubes are stable. 2. Cardiomediastinal silhouette is normal for technique. 3. Faint patchy opacities again seen in both lungs suggestive of pulmonary edema or multifocal pneumonia. 4. Costophrenic sulci are sharp. 5. No acute osseous abnormalities. URINE AND UA Sq Epi None Seen 02/[address] URINE AND UA <=1.0 0.1 - 1.0 02/28 [facility] Urobilinogen mg/dL /2016 [facility] URINE AND UA Nitrite Negative Negative 02/[address] (02/29/16 11:57 AM) [place] URINE AND UA RBC 2 /HPF 0 - 2 02/[address] URINE AND UA WBC 2 /HPF 0 - 5 02/[address] URINE AND UA Leuk Est Negative Negative 02/[address] (02/29/16 11:57 AM) [place] URINE AND UA Blood Negative Negative 02/[address] (02/29/16 11:57 AM) [place] URINE AND UA Hyal Cast 1 /LPF 0 - 2 02/[address] URINE AND UA Mucus Few /LPF None Seen 02/28 [facility] /LPF /[address] [place] [address] URINE AND UA Spec Grav 1.016 <=1.030 02/[address] URINE AND UA pH 5.5 5.0 - 8.0 02/[address] URINE AND UA Turbidity Slight Clear 02/[address] *ABN* [place] (02/29/16 11:57 AM) URINE AND UA Protein Negative Negative 02/28 [facility] mg/dL mg/dL /2016 [facility] URINE AND UA Bili Negative Negative 02/[address] *NA* [place] (02/29/16 11:57 AM) URINE AND UA Ketones Negative Negative 02/28 [facility] mg/dL mg/dL /2016 [facility] URINE AND UA Glucose 30 mg/dL Negative 02/28 [facility] STOOL mg/dL /2016 [facility] URINE AND UA Color Yellow Yellow 02/28 [facility] STOOL /2016 Medical *NA* Center (02/29/16 11:57 AM) CARDIAC Troponin-I null 0.00 - 02/28 [facility] ENZYMES 0.40 /2016 [facility] Chest 1view Chest 1view EXAM: XR CHEST 1 VIEW 02/28 - [place] DX DX [facility] DATE: 02/29/2016 3:00 AM DIRECTOR CAREER Read by: Vasiliy Bui MD Dictated Date/time: 02/29/16 09:40 Electronically Signed by: Vasiliy Bui MD 02/29/16 09:41 FINAL REPORT INDICATION: Abnormal chest sounds COMPARISON: 02/28/2016 TECHNIQUE: AP chest IMPRESSION: 1. Lines and tubes are stable. 2. Cardiomediastinal silhouette is normal for technique. 3. Aortic atherosclerotic disease. 4. Slightly diminished lung volumes bilaterally with slightly prominent lung reticulations interstitial pulmonary edema. Superimposed infection cannot be excluded. 5. Interval resolution of the linear atelectatic changes previously seen in the retrocardiac space. 6. Costophrenic sulci are sharp. 7. No acute osseous abnormalities. Brain wo Brain wo EXAM: CT BRAIN 02/27 [facility] contrast CT contrast CT /2016 [facility] DATE: 02/28/2016 at 15:27 Read by: Marcela Johnson MD Dictated Date/time: 02/28/16 16:46 Electronically Signed by: Marcela Johnson MD 02/28/16 16:52 FINAL REPORT CLINICAL INFORMATION: Bleeding COMPARISON: CT brain 02/27/2016 TECHNIQUE: Axial images of the brain were obtained from the skull base through the vertex without contrast material administration. DLP: 1261 mGycm DISCUSSION: Evolving right frontal parenchymal hematoma with surrounding edema with stable mass effect. Improving subarachnoid hemorrhage. Stable intraventricular hemorrhage and ventricular volume. Stable left fron john EVD catheter. No significant midline shift. No new intracranial hemorrhage. Resolving small amount of postoperative pneumocephalus. IMPRESSION: Improving subarachnoid hemorrhage. Chest 1view Chest 1view EXAM: XR CHEST 1 VIEW 02/27 - [facility] DX DX /2016 - [facility] DATE: 02/28/2016 3:00 AM DIRECTOR CAREER Read by: Vasiliy Bui MD Dictated Date/time: 02/28/16 09:34 Electronically Signed by: Vasiliy Bui MD 02/28/16 09:35 FINAL REPORT INDICATION: Tube placement/removal/reposition COMPARISON: 02/27/2016 TECHNIQUE: AP chest IMPRESSION: 1. Lines and tubes are stable. 2. There are left retrocardiac opacities obscuring the left hemidiaphragm and silhouette of the descending thoracic aorta which may represent left pleural effusion with or without underlying atelectasis or consolidation of left lower lobe. 3. Small left pleural effusion. 4. Cardiomediastinal silhouette is normal for technique. Aortic atherosclerotic disease. 5. No acute osseous abnormalities. URINE AND UA Sq Epi None Seen 02/26 [facility] STOOL [facility] BACTERIAL - MRSA by PCR Negative 02/26 [facility] SEROLOGY [facility] (02/27/16 8:34 AM) [place] Abdomen AP Abdomen AP DX EXAM: XR ABDOMEN 1 VIEW 02/26 - [facility] DX - [facility] DATE: 02/27/2016 10:13 AM DIRECTOR CAREER Read by: Ashwin Guerra MD Dictated Date/time: 02/27/16 11:09 Electronically Signed by: Ashwin Guerra MD 02/27/16 11:09 FINAL REPORT INDICATION: Tube placement/removal/reposition COMPARISON: None. TECHNIQUE: Limited AP view of the abdomen for tube placement assessment. Number of images: 1 FINDINGS: Transesophageal feeding tube tip in the distal stomach Transesophageal suction tube sidehole in the distal stomach Other tubes and lines: None. No other changes. IMPRESSION: Tube positions as above. DRUG SCREEN U Opiate Scr Negative Negative 02/26 [facility] *NA* Center (02/27/16 12:41 AM) DRUG SCREEN U Cannab Scr Negative Negative [facility] (02/27/16 12:41 AM) DRUG SCREEN U Benzodia Negative Negative 02/26 [facility] (02/27/16 12:41 AM) DRUG SCREEN U Propoxyph Negative Negative 02/26 [facility] (02/27/16 12:41 AM) DRUG SCREEN U Methadone Negative Negative 02/26 [facility] (02/27/16 12:41 AM) DRUG SCREEN U Cocaine Scr Negative Negative 02/26 [facility] [place] (02/27/16 12:41 AM) DRUG SCREEN U Phencyc Scr Negative Negative 02/[facility] [place] (02/27/16 12:41 AM) DRUG SCREEN U Belinda Scr Negative Negative 02/[facility] [place] (02/27/16 12:41 AM) DRUG SCREEN U Amph Scr Negative Negative 02/[facility] [place] (02/27/16 12:41 AM) DRUG SCREEN UDS Note See Note 02/[facility] [place] (02/27/16 12:41 AM) URINE AND UA Bacteria Occasional None Seen 02/26 [facility] STOOL /HPF /HPF [facility] URINE AND UA Amorph Occasional None Seen 02/26 [facility] STOOL Trixie /HPF /HPF [facility] HEMATOLOGY TEG Interp Thrombelas 02/26 [facility] show shortened value of R and increased value of Angle Alpha. 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.CPT :04921 HEMATOLOGY Angle 74.3 53.0 - 02/26 [facility] degrees 72.0 [facility] HEMATOLOGY Max Amp 69.2 mm 50.0 - 02/26 [facility] 70.0 [facility] HEMATOLOGY Coag Index 3.5 -3.0-3.0 - 02/26 [facility] 3.0 [facility] HEMATOLOGY G-value 11.3 K 4.5 - 11.0 02/26 [facility] d/sc [facility] HEMATOLOGY Ly30 0.8 % 0.0 - 7.5 02/26 [facility] HEMATOLOGY TEG Data See Note 02/26 [facility] (02/27/16 12:40 AM) [place] HEMATOLOGY R-time 3.8 min 5.0 - 10.0 02/26 [facility] HEMATOLOGY K-time 0.9 min 1.0 - 3.0 02/26 [facility] HEMATOLOGY INR 1.23 0.85 - 02/26 [facility] 1. [facility] HEMATOLOGY PT 15.8 s 12.0 - 02/26 [place] 14.7 [facility] HEMATOLOGY PTT 25.3 s 22.9 - 02/26 [facility] 35.8 /2016 [facility] SPECIAL Hgb A1C 8.9 % <=5.6 % 02/26 [facility] CHEMISTRY /2016 [facility] Brain wo Brain wo CT HEAD WITHOUT CONTRAST 02/26 - [facility] contrast CT contrast CT /2016 - [facility] DATE: 02/27/2016 at 1:53 AM. Read by: Lopez Bullock MD Dictated Date/time: 02/27/16 06:48 Electronically Signed by: Lopez Bullock MD 02/27/16 06:52 FINAL REPORT COMPARISON: 02/26/2016 at 9:08 PM. HISTORY: Bleeding. TECHNIQUE: Contiguous axial images of the brain were obtained without intravenous contrast administration utilizing a portable CT scanner. DLP: 948.93 mGy-cm. FINDINGS: Again noted are the postoperative changes of interval right pterional craniotomy and clipping of right posterior communicating artery aneurysm. An aneurysm clip is again noted to the right of the sella turcica. Pneumocephalus is noted beneath the craniotomy flap and within the left frontal region, unchanged. A large, 3.8 x 2.4 cm parenchymal hematoma is again noted within the right frontal lobe. Extensive subarachnoid hemorrhage is again noted more prominent on the right. Intraventricular hemorrhage is again noted layering within the occipital horns. There has been interval placement of a left transfrontal ventriculostomy with the tip ending in the left frontal horn. There is no hydrocephalus. The ventricles are well decompressed. IMPRESSION: 1. Stable exam. There is no adverse interval change from the prior study of 5 hours earlier. 2. Stable Postoperative changes of right pterional craniotomy and clipping of right posterior communicating artery aneurysm. 3. Stable 3.8 x 4.2 cm parenchymal hematoma within the right frontal lobe. 4. Subarachnoid hemorrhage and intraventricular hemorrhage, unchanged. Chest 1 v Chest 1 v for EXAM: XR CHEST 1 VIEW 02/26 - [facility] for Placement DX /2016 [facility] DATE: 02/27/2016 at 0018 hours Read by: Gita Gannon MD Dictated Date/time: 02/27/16 07:09 Electronically Signed by: Gita Gannon MD 02/27/16 07:13 FINAL REPORT INDICATION: Line Placement COMPARISON: 02/26/2016 at 2120 hours TECHNIQUE: AP chest FINDINGS: Lines and tubes: Interval placement of right jugular central venous catheter with tip projecting at right atrium. There is no pneumothorax or intrathoracic complication identified following line placeme nt. Previous left jugular catheter has been removed. Gastric drainage tube remains in place stable in appearance. Lungs and pleura: Lung volumes have slightly decreased. There is slight increase in linear opacities of retrocardiac left lung base most consistent with subsegmental atelectasis. No effusions are identified. Heart and mediastinum: Cardiac mediastinal silhouette is stable. Bones: No interval change. IMPRESSION: 1. Interval placement of right jugular central venous catheter with tip followed to the level of right atrium. There is no evidence of pneumothorax following line placement however, a semierect view the chest is limited for that determination. There is been interval removal of previous left jugular catheter. 2. Slight increase in subsegmental atelectasis of retrocardiac left lung base associated with low lung volume. Chest 1view Chest 1view EXAM: XR CHEST 1 VIEW 02/25 [facility] DX DX /2017 [facility] DATE: 02/26/2016 at 2120 hours Read by: Gita Gannon MD Dictated Date/time: 02/27/16 06:37 Electronically Signed by: Gita Gannon MD 02/27/16 06:40 FINAL REPORT INDICATION: Tube placement/removal/reposition COMPARISON: Single view chest 02/26/2016 at 0249 hours TECHNIQUE: AP chest FINDINGS: Lines and tubes: Endotracheal tube is been placed with tip measured 2.6 cm above himanshu. A left jugular catheter is in place with tip followed to the level of brachiocephalic vein. Gastric drainage tube has been placed. The tip travels well below the level of left diaphragm prior to moving beyond the image border. Lungs and pleura: Lung volume has slightly improved. Scattered linear opacities are present in retrocardiac left lung base and above left costophrenic recess consistent with subsegmental atelectasis. Ad ditional platelike atelectasis is present in the right upper lobe extending to perihilar region. No effusions are identified. No pneumothorax is seen. However, a semierect view of the chest is limited for that determination. Heart and mediastinum: The cardiac silhouette is at upper limits of normal in size. Faint calcification is seen within aortic arch. The mediastinal contours are normal. Bones: No acute bony abnormality is identified. IMPRESSION: 1. Endotracheal tube placed with tip measured 2.6 cm above himanshu. 2. Left jugular catheter in place with tip projecting at brachiocephalic vein. There is no evidence of intrathoracic complication following line placement. 3. Left basilar and right upper lobe subsegmental atelectasis. 4. Gastric drainage tube in place with tip traveling well below the level of left diaphragm and moving beyond the image border. Brain wo Brain wo CT HEAD WITHOUT CONTRAST 02/25 - [facility] contrast CT contrast CT /2016 - [facility] DATE: 02/26/2016 at 9:08 PM. Read by: Lopez Bullock MD Dictated Date/time: 02/27/16 03:09 Electronically Signed by: Lopez Bullock MD 02/27/16 03:14 FINAL REPORT COMPARISON: 02/26/2016 at 3:48 AM.. HISTORY: Bleeding. TECHNIQUE: Contiguous axial images of the brain were obtained without intravenous contrast administration utilizing a portable CT scanner. DLP: 948.93 mGy-cm. FINDINGS: There are postoperative changes of interval right pterional craniotomy and clipping of right posterior communicating artery aneurysm. Aneurysm clip is noted to the right of the sella turcica. There has been development of a large, 3.8 x 2.4 cm parenchymal hematoma within the right frontal lobe. Extensive subarachnoid hemorrhage is again noted more prominent on the right. There has been interval placement of a left transfrontal ventriculostomy with the tip ending in the left frontal horn. There is no hydrocephalus. The ventricles are well decompressed. IMPRESSION: 1. Postoperative changes of right pterional craniotomy and clipping of right posterior communicating artery aneurysm. 2. Interval development of 3.8 x 4.2 cm parenchymal hematoma within the right frontal lobe. 3. Subarachnoid hemorrhage, more prominent on the right again noted. There are no mass lesions or extra axial collections. There are no acute bony abnormalities. The calvarium is intact. IMPRESSION: 1. No acute intracranial abnormality, normal CT scan of the brain. HEMATOLOGY POC Activated 154 s 02/25 [facility] Clotting Time /2016 [facility] BLOOD BANK Antibody Scrn Negative 02/25 [facility] RESULTS [facility] (02/26/16 3:00 AM) [place] BLOOD BANK ABO/Rh A POS 02/25 [facility] CHEM PANEL Bili Total 0.4 mg/dL 0.2 - 1.3 02/25 [facility]2016 [facility] CHEM PANEL Alk Phos 81 unit/L 39 - 136 02/25 [facility]2016 [facility] CHEM PANEL AST 45 unit/L 0 - 37 02/[address] CHEM PANEL Total Protein 7.8 g/dL 6.4 - 8.4 02/25 [facility]2016 [facility] CHEM PANEL Albumin Lvl 3.7 g/dL 3.5 - 5.0 02/25 [facility]2016 [facility] CHEM PANEL ALT 52 unit/L 0 - 65 02/[address] CHEM PANEL A/G Ratio 0.9 0.7 - 1.6 02/25 [facility]2016 [facility] CHEM PANEL Globulin 4.1 g/dL 2.7 - 4.2 02/25 [facility]2016 [facility] CHEM PANEL B/C Ratio 27 6 - 25 02/[address] HEMATOLOGY G-value Rapid 10.5 K 5.0 - 11.6 02/25 [facility] d/ [facility] HEMATOLOGY Max Amplitude 68 mm 52 - 71 02/[address] HEMATOLOGY K-time Rapid 1.1 min 0.6 - 2.3 02/[address] HEMATOLOGY Angle Rapid 76 degrees 64 - 80 02/[address] HEMATOLOGY [place] 0.6 min 02/[address] HEMATOLOGY R-time Rapid 0.8 min 0.4 - 0.7 02/[address] HEMATOLOGY ACT (TEG) 121 s 86 - 118 02/[address] HEMATOLOGY Estimated % 0.6 % 0.0 - 7.5 02/25 [facility] Lysis [address] Angiogram Angiogram PROCEDURE: 02/25 - [facility] cervical cervical - Medical artery artery 1. Diagnostic Cerebral Angiogram: This report was dictated by a Piping Engineer/Fellow. I have personally reviewed the images as Center bilateral bilateral VR well as the Resident's interpretation and agree with the findings. VR 2. 3D angiography: Bilateral internal carotid artery Read by: Bernard Overton MD Resident: Bernard Overton MD Dictated Date/time: 02/26/16 09:08 Electronically Signed by: Ji Mcdowell MD 03/07/16 12:30 FINAL REPORT DATE: 02/26/2016 7:11 AM DIRECTOR CAREER INDICATION: Due to the patient clinical presentation coupled with the CT and CTA brain finding, cerebral angiogram is indicated to rule out aneurysm, dural arteriovenous fistula, arteriovenous malformation or any other vascular abnormality HISTORY: 65 years Female present with acute onset of severe headache. CT brain showed evidence of diffuse subarachnoid hemorrhage. Cerebral angiogram is indicated to rule out aneurysm, dural arterioven ous fistula, arteriovenous malformation or any other vascular abnormality ATTENDING: Ji Mcdowell M.D. He was present and immediately available for entire procedure, performing all critical portions. Reviewed all angiographic results. FELLOW: Bernard Murray M.D. COMPARISON: CTA brain 02/25/2016 PROCEDURE: Informed consent was obtained describing all the risks, benefits and alternatives of the procedure the patient was brought to the interventional suite placed in the supine position where gene ral anesthesia was administered under the supervision of the attending. The patient was then prepped and draped in sterile fashion. The Right femoral artery was accessed using single wall micropuncture technique and a 5 Polish sheath was placed. A 5 Polish Vert catheter was coaxially advanced with a 0.035 Terumo Glidewire through the sheath into aorta arch to select the below mentioned arteries using roadmap technique. Two-dimensional and selective 3-D cerebral angiogram runs were performed. After review of the angiography data, the catheter was withdrawn. Right femoral artery angiogram was perfo rmed and the catheter was removed. The femoral artery sheath kept in for intraoperative angiogram. Post procedure neurological examination was at the patient's baseline. The patient was was then tr ansferred to interventional holding area for post procedure care. CONTRAST: 100 cc. RADIATION DOSE: Cumulative Air KERMA Frontal: 458 mGy Cumulative Air KERMA Lateral: 122 mGy FLUOROSCOPY TIME: 8.5 minutes TASKS: 1. Right femoral artery catheterization with 2-D angiogram run 2. Right common carotid artery selective catheterization with 2D angiogram run 3. Right Internal carotid artery selective catheterization and 2D angiogram Runs 7. Right vertebral artery selective catheterization and 2D angiogram Runs 5. Left common carotid artery selective catheterization and 2D angiogram Runs 6. Left Internal carotid artery selective catheterization and 2D angiogram Runs 7. Left vertebral artery selective catheterization and 2D angiogram Runs FINDINGS: 1- Right common carotid artery: Right common carotid reveals normal takeoff of the internal carotid artery and external carotid artery and terminal branches. The bifurcation is smooth without irregulari ty or any significant evidence of atherosclerotic disease or stenosis. No early venous shunting is present. 2- Right external carotid artery: Common carotid artery injection shows normal opacification of the external carotid artery and its terminal branches. There is no evidence of tumor blush, arteriovenous shunting or other abnormalities. 3- Right internal carotid artery: Right internal carotid artery injection revealed brisk opacification of the internal carotid artery (ICA), middle cerebral artery (MCA), and the anterior cerebral arter y (GABRIELLA). There is evidence of aneurysm formation associated with the right internal carotid artery communicating segment measuring 4.57 x 3.40 mm within neck of 2.88 mm. There is evidence of irregularit y associated with this neck and a robust right posterior communicating artery comes off it . No arteriovenous malformation or fistula. Capillary and Venous phases show normal opacification without any e vidence of perfusion deficits or abnormal flow obstruction. 4- Right vertebral artery: Right vertebral artery injection revealed brisk opacification of the right vertebral artery and end of the right posterior inferior cerebellar artery no aneurysm, arteriovenou s fistula or malformation. . Capillary and Venous phases show normal opacification without any evidence of perfusion deficits or abnormal flow obstruction. 5- Left common carotid artery: Left common carotid reveals normal takeoff of the cervical internal carotid artery and external carotid artery and terminal branches. The bifurcation is smooth without irr egularity or any significant evidence of atherosclerotic disease or stenosis. No early venous shunting is present. 6- Left external carotid artery: Common carotid artery injection shows normal opacification of the external carotid artery and its terminal branches. There is no evidence of tumor blush, arteriovenous shunting or other abnormalities. 7- Left internal carotid artery: Left internal carotid artery injection reveals revealed brisk opacification of the internal carotid artery (ICA), middle cerebral artery (MCA), and the anterior cerebra l artery (GABRIELLA). There is evidence of aneurysm formation associated with the left internal carotid artery, indicating segment measuring 3.61 x 2.94 mm within neck of 2.27 mm .No arteriovenous malformati on or fistula. Capillary and Venous phases show normal opacification without any evidence of perfusion deficits or abnormal flow obstruction. 8-Left vertebral artery: Left vertebral artery injection reveals brisk opacification of the left vertebral artery, left posterior inferior cerebellar artery, bilateral anterior inferior cerebellar arter y, bilateral superior cerebellar artery and bilateral posterior cerebral artery. There is evidence of origin of the left posterior cerebral artery. No aneurysm, arteriovenous fistula or malformati on. . Capillary and Venous phases show normal opacification without any evidence of perfusion deficits or abnormal flow obstruction. 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 It accounts for the previously described subarachnoid hemorrhage - Left internal carotid artery, indicating segment aneurysm measuring3.61 x 2.94 mm within neck of 2.27 mm. - The left posterior communicating artery associated with a origin of the left posterior cerebral artery. Brain wo Brain wo EXAM: CT HEAD WITHOUT CONTRAST 02/25 [facility] contrast CT contrast CT /2016 [facility] DATE: 02/26/2016 348 AM DIRECTOR CAREER Read by: Cecilio Finney MD Dictated Date/time: 02/26/16 07:50 Electronically Signed by: Cecilio Finney MD 02/26/16 07:59 FINAL REPORT INDICATION: 65 years old Female patient with follow-up subarachnoid hemorrhage TECHNIQUE: Multiple axial images were obtained through the head from vertex to the skull base. Axial bone algorithm reconstruction images are provided. COMPARISON: Prior CT scan of the head dated 02/26/2016 at 2:58 PM DISCUSSION: Interval minimal increase in previously identified subarachnoid hemorrhage predominantly along the right cerebral convexity, right sylvian fissure, right side of the basal cisterns, interhemispheric fis sure. Small amount of intraventricular hemorrhage layering within the occipital horns, new from prior study. No definite new parenchymal abnormality or new hemorrhage is identified. There is no significant mass effect and midline shift. Overall ventricles are stable in size and configuration. Basal cisterns are occupied by the subarachnoid hemorrhage. There is no evidence of downward herniation. No interval significant adverse changes in visualized paranasal sinuses, orbits, mastoid cavities and calvarium. IMPRESSION: 1. Interval minimal increase in scattered subarachnoid hemorrhage otherwise no significant interval adverse change. These findings are in agreement with preliminary report made by certified juvenile probation officer residential specialist: Creator: Joe Downey Date: Feb 26, 2016 03:59:21 Subject: Extensive right frontotemporal subarachnoid hemorrhage with extension into the basal cisterns and interhemispheric fissure appears more pro minent than on prior exam. Findings communicated to Dr. Murphy at 0400 hours on 02/26/2016. Spine Spine EXAM: CT CERVICAL SPINE WITHOUT CONTRAST 02/25 [facility] cervical wo cervical wo - Medical contrast CT contrast CT This report was dictated by a Piping Engineer/Fellow. I have personally reviewed the images as Center well as the Resident's interpretation and agree with the findings. DATE: 02/26/2016 3:23 AM DIRECTOR CAREER Read by: Joe Downey MD Resident: Joe Downey MD Dictated Date/time: 02/26/16 04:05 Electronically Signed by: Gita Gannon MD 02/26/16 04:31 FINAL REPORT INDICATION: Pain Post Trauma COMPARISON: Outside cervical spine CT on 02/26/2016 TECHNIQUE: Volumetric CT acquisition of the cervical spine without contrast. Axial, sagittal and coronal reconstructions. IV contrast: None. DLP: 514.07 mGy-cm FINDINGS: The spine is imaged from the skull base to the level of T2. No acute fracture or malalignment is identified. Multilevel degenerative disc disease with disc height loss and marginal osteophyte formation is seen at C4-C5 and C5-C6. Posterior calcified disc osteoph yte complex is present at C4-5 associated with impingement upon the anterior aspect of the thecal sac. No soft tissue abnormality is identified. Please refer to CT head for findings related to subarachnoid hemorrhage. IMPRESSION: 1. No acute abnormality of the cervical spine. 2. Multilevel mild degenerative disc disease most prominent at C4-C5 and at C5-C6. Brain/Neck Brain/Neck EXAM: CTA BRAIN 02/25 - [facility] CTA CTA /2016 - Medical EXAM: CTA NECK Center Read by: Nando Oliver MD Dictated Date/time: 02/26/16 09:37 DATE: 02/26/2016 3:22 AM DIRECTOR CAREER Electronically Signed by: Nando Oliver MD 02/26/16 09:53 FINAL REPORT INDICATION: Headache with Trauma COMPARISON: Subarachnoid hemorrhage TECHNIQUE: Rapid acquisition spiral CT images of the brain and neck were obtained between the aortic arch and the cranial vertex during intravenous infusion of iodinated contrast for the purposes of CT angiography . 3-D CT angiographic images are created using MIP technique at the acquisition workstation. The source images are also presented for interpretation. IV contrast: 100 cc Visipaque 320 DLP: 926 mGy-cm FINDINGS: NECK CTA: Aortic arch: There is common origin of the left subclavian artery and brachiocephalic artery. No origin stenosis is identified. The vertebral artery origins are patent bilaterally. Carotid arteries: The cervical common carotid arteries and cervical internal carotid arteries have a normal course, caliber, and contour. There are areas of calcification at the carotid bifurcations. No hemodynamically significant stenosis of the carotid bifurcations or internal carotid arteries is present by NASCET criteria. There is no evidence of vascular injury. Vertebral arteries: The vertebral arteries have a normal course, caliber and contour. The soft tissues of the neck and other incidental structures are normal. BRAIN CTA: Posterior indicating artery aneurysms are present bilaterally. On the right , the lesion measures 5 x 4 x 4 mm. On the left, the aneurysm measures 3 x 3 x 3 mm. No other intracranial aneurysms are noted. There is probably already some mild vasospasm in the sylvian branches of the right MCA and in the right A1 segment. There is normal variant anatomy. Both posterior communicating arteries are large in the basilar artery is diminutive. The right vertebral artery terminates in a posterior inferior cerebellar branch. The deep cerebral veins and major venous sinuses are normal. Subarachnoid hemorrhage is again noted in the basilar cisterns. 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 aneurysm (All qualitative and quantitative assessments of carotid bifurcation and proximal internal carotid artery stenosis are made referencing the distal internal carotid artery {NASCET criteria}.) Brain-Outsi Brain-Outside EXAM: CT HEAD WITHOUT CONTRAST 02/25 [facility] Consult Consult CT /2016 - [facility] CT [place] DATE: Study was performed at outside hospital on 02/26/2016 at 1221 hours and submitted for 2nd interpretation on 02/26/2016 2:55 AM DIRECTOR CAREER Read by: Cecilio Finney MD Dictated Date/time: 02/26/16 08:33 Electronically Signed by: Cecilio Finney MD 02/26/16 08:41 FINAL REPORT INDICATION: 65 years old Female patient with provided history of altered sensorium, severe headache. TECHNIQUE: Outside hospital noncontrast CT Scan of the head was submitted for 2nd opinion/interpretation. Multiple axial images were obtained through the head from vertex to the skull base. Axial bone a lgorithm reconstruction images were provided. COMPARISON: None. FINDINGS: There is extensive subarachnoid hemorrhage scattered along the right cerebral convexity, suprasellar cistern, interpeduncular cistern, ambient cistern, perimesencephalic cistern, prepontine and along the interhemispheric fissure. No definite evidence of cerebral edema, mass effect, midline shift is seen. Ventricles are normal in size and configuration. No pathological extra- axial fluid collection is seen. Basal cisterns are occupied by subarachnoid hemorrhage.. There is no evidence of downward herniation. Calvarium is intact. Visualized paranasal sinuses are clear. Mastoid air cells are well aerated. Visualized orbits appear grossly unremarkable. IMPRESSION: 1. Scattered subarachnoid hemorrhage along the right several convexity and basal cisterns as detailed above concerning for aneurysm rupture. Further evaluation with CT angiogram of the head is recommended. Outside hospital report is available. Findings are in agreement with outside hospital report. These findings are in agreement with preliminary report made by certified juvenile probation officer residential specialist: Creator: Joe Downey Date: Feb 26, 2016 03:09:02 Subject: Extensive right frontotemporal subarachnoid hemorrhage with extension into the basal cisterns. Findings were originally communicated to Dr. Mckeon from prior outside report. Chest 1view Chest 1view EXAM: XR CHEST 1 VIEW 02/25 - [facility] DX /2016 - Medical This report was dictated by a Piping Engineer/Fellow. I have personally reviewed the images as Center well as the Resident's interpretation and agree with the findings. DATE: 02/26/2016 2:46 AM DIRECTOR CAREER Read by: Joe Downey MD Resident: Joe Downey MD Dictated Date/time: 02/26/16 02:56 Electronically Signed by: Gita Gannon MD 02/26/16 04:03 FINAL REPORT INDICATION: Dizziness COMPARISON: None available TECHNIQUE: AP chest FINDINGS: Low lung volumes are present with accentuation of the pulmonary vasculature. Subsegmental atelectasis is present in the left lower lung. No pleural-based abnormality is identified. Pulmonary v ascularity is normal. The heart size is normal for technique. No acute bony abnormality is identified. IMPRESSION: Low lung volumes with mild subsegmental atelectasis in the left lower lung. Vital Signs Vital Sign Value Date Comments Source Weight 75.4 06/20/2016 [facility] Respitory Rate 39 06/20/2016 [facility] Systolic (mm Hg) 105 06/20/2016 [facility] Diastolic (mm Hg) 55 06/20/2016 [facility] Respitory Rate 20 06/20/2016 [facility] Systolic (mm Hg) 114 06/20/2016 [facility] Diastolic (mm Hg) 57 06/20/2016 [facility] Respitory Rate 20 06/20/2016 [facility] Systolic (mm Hg) 114 06/20/2016 [facility] Diastolic (mm Hg) 57 06/20/2016 [facility] BMI Calculated 27.52 06/19/2016 [facility] Weight 72.727 06/19/2016 [facility] Height 162.56 cm 06/19/2016 [facility] Heart Rate 82 06/19/2016 [facility] Height 162.56 cm 06/18/2016 [facility] BMI Calculated 27.52 06/18/2016 [facility] Weight 72.727 06/18/2016 [facility] Temperature Oral (F) 97.9 F 03/29/2016 [facility] Systolic (mm Hg) 99 03/29/2016 [facility] Diastolic (mm Hg) 57 03/29/2016 [facility] Heart Rate 71 03/29/2016 [facility] Temperature Oral (F) 98.5 F 03/29/2016 [facility] Heart Rate 69 03/29/2016 [facility] Systolic (mm Hg) 94 03/29/2016 [facility] Diastolic (mm Hg) 62 03/29/2016 [facility] Respitory Rate 16 03/29/2016 [facility] Respitory Rate 18 03/28/2016 [facility] Systolic (mm Hg) 134 03/28/2016 [facility] Diastolic (mm Hg) 71 03/28/2016 [facility] Temperature Oral (F) 98.3 F 03/28/2016 [facility] Heart Rate 66 03/28/2016 [facility] Respitory Rate 18 03/28/2016 [facility] Weight 75 03/12/2016 [facility] BMI Calculated 28.38 03/12/2016 [facility] Height 162.56 cm 03/12/2016 [facility] Weight 75 03/12/2016 [facility] BMI Calculated 28.38 03/12/2016 [facility] Height 162.56 cm 03/12/2016 [facility] Systolic (mm Hg) 109 03/12/2016 [facility] Diastolic (mm Hg) 66 03/12/2016 [facility] Respitory Rate 18 03/12/2016 [facility] Heart Rate 86 03/12/2016 [facility] Temperature Oral (F) 100.1 F 03/12/2016 [facility] Systolic (mm Hg) 124 03/12/2016 [facility] Diastolic (mm Hg) 60 03/12/2016 [facility] Systolic (mm Hg) 119 03/11/2016 [facility] Diastolic (mm Hg) 62 03/11/2016 [facility] Heart Rate 86 03/11/2016 [facility] Respitory Rate 18 03/11/2016 [facility] Temperature Oral (F) 98.3 F 03/11/2016 [facility] Temperature Oral (F) 98.0 F 03/11/2016 [facility] Respitory Rate 18 03/11/2016 [facility] Heart Rate 89 03/11/2016 [facility] Height 160.02 cm 03/01/2016 [facility] Height 160.02 cm 03/01/2016 [facility] Height 160.02 cm 03/01/2016 [facility] Weight 90.009 02/26/2016 [facility] BMI Calculated 35.15 02/26/2016 [facility] Weight 90.909 02/26/2016 [facility] BMI Calculated 34.4 02/26/2016 [facility] Encounters Location Location Encounter Encounter Reason Attending ADM DC Status Source Details Type Number For Provider Date Date Visit [facility] [id number] Isauro Marrero 02/25 03/12 [facility] Inpatient [id number] [place] 03/12 03/29 [facility] [id number] ISAURO L 04/17 [facility] [place] Outpatient [id number] JI MCDOWELL 05/24 [facility] Inpatient [id number] Ji Mcdowell 06/19 06/20 [facility] Procedures Procedure Code Date Perfomer Comments Source Selective catheter 37159 06/19/2016 [facility] placement, common Medical carotid or innominate Center artery, unilateral, any approach, with angiography of the ipsilateral extracranial carotid circulation and all associated radiological supervision and interpretation, includes angiography of the c Selective catheter [id number] 06/19/2016 [facility] placement, internal Medical carotid artery, Center unilateral, with angiography of the ipsilateral intracranial carotid circulation and all associated radiological supervision and interpretation, includes angiography of the extracranial carotid and ce Selective catheter [id number] 03/04/2016 [facility] placement, vertebral Medical artery, unilateral, Center with angiography of the ipsilateral vertebral circulation and all associated radiological supervision and interpretation, includes angiography of the cervicocerebral arch, when performed Selective catheter [id number] 02/27/2016 [facility] placement, internal Medical carotid artery, Center unilateral, with angiography of the ipsilateral intracranial carotid circulation and all associated radiological supervision and interpretation, includes angiography of the extracranial carotid and ce Craniotomy and [id number] [facility] clipping of Medical intracranial aneurysm Center
--- OUTSIDE RECORDS SUMMARY | 2017-08-24 11:29 | XMS REPORT | Summary of Care ---
:1950 Author Organization [facility] Address [address] [place] [id number]- Encounter HQ Timoteontr_ariella(FIN) [id number] Date(s): 02/26/16 - 03/11/[address] Professional Services provided by [facility] [place] [address]- Discharge Disposition: DC/DISC TO REHAB Attending Physician: Rayray Wall MD Admitting Physician: Isauro Marrero MD Vital Signs Most recent to oldest 1 2 3 [Reference Range]: Height 160.02 cm 160.02 cm 160.02 cm (03/01/16 2:30 PM) (03/01/16 10:58 AM) (03/01/16 7:44 AM) Current Weight 84 kg 85.3 kg 83 kg (03/08/16 5:00 AM) (03/07/16 5:00 AM) (03/06/16 5:00 AM) Temperature Oral [96.4-99.1 100.1 DegF 98.3 DegF 98.0 DegF DegF] *HI* (03/11/16 4:55 PM) (03/11/16 12:04 PM) (03/11/16 8:39 PM) Blood Pressure [90-140/60-90 109/66 mmHg 124/60 mmHg 119/62 mmHg mmHg] (03/11/16 8:39 PM) (03/11/16 8:00 PM) (03/11/16 4:55 PM) Respiratory Rate [14-20 18 BRMIN 18 BRMIN 18 BRMIN BRMIN] (03/11/16 8:39 PM) (03/11/16 4:55 PM) (03/11/16 12:04 PM) Peripheral Pulse Rate [60-100 86 bpm 86 bpm 89 bpm bpm] (03/11/16 8:39 PM) (03/11/16 4:55 PM) (03/11/16 12:04 PM) Weight 90.009 kg 90.909 kg (02/26/16 4:08 PM) (02/26/16 2:37 AM) Body Mass Index 35.15 m2 34.4 m2 (02/26/16 4:08 PM) (02/26/16 2:37 AM) Problem List Condition Effective Dates Status Health Status Informant Cerebral edema(Confirmed) Active DM (diabetes mellitus)(Confirmed) Resolved 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(Confirmed) SAH (subarachnoid Active hemorrhage)(Confirmed) Hyperosmolality and Active hypernatremia(Confirmed) HTN (hypertension)(Confirmed) Active Obstructive hydrocephalus(Confirmed) Active Acute and chronic respiratory Active failure with hypoxia(Confirmed) Intracerebral hemorrhage, Active intraventricular(Confirmed) Allergies, Adverse Reactions, Alerts Substance Reaction Severity Status NKDA Active Medications albuterol 0.083% inhalation solution 2.49 mg, 3 mL, Route: NEB, Drug form: SOLN, RQ2H, Dosing Weight 90.009, kg, PRN Wheezing, Start date: 03/01/16 14:46:00 TOE SEWER, Duration: 30 day, Stop date: 14:45:00 TOE SEWER Notes: SEE RT DOCUMENTATION (Same as: Betsy) Start Date: 03/01/16 Stop Date: 03/11/16 Status: Discontinuedampicillin 1 gm, Route: IVPB, Drug form: PDR/INJ, ABXQ6H, Dosing Weight 90.009, kg, Start date: 03/04/16 8:00:00 TOE SEWER, Duration: 30 day, Stop date: 04/03/16 2:00:00 TOE SEWER Notes: (Same as: Andriy) MEDICATION WASTE Product Size: 1000 mgProduct Wasted: ___ mg Start Date: 03/04/16 Stop Date: 03/10/16 Status: DiscontinuedAncef 1 gm, Route: IVPB, ONCE, Dosing Weight 90.009, kg, Start date: 02/26/16 17:15: 00 TOE SEWER, Stop date: 02/26/16 17:15:00 TOE SEWER Start Date: 02/26/16 Stop Date: 02/26/16 Status: CompletedAncef 2 gm, Route: IV, ONCE, Dosing Weight 90.909, kg, Start date: 02/26/16 14:15:00 TOE SEWER, Duration: 1 doses or times, Stop date: 02/26/16 14:15:00 TOE SEWER, Surgical Prophylaxis Only; For patients < 120 kg Start Date: 02/26/16 Stop Date: 02/26/16 Status: CompletedAncef + sodium chloride 0.9% INJ 100 mL 2 gm, Route: IVPB, ONCE, Dosing Weight 90.009, kg, Start date: 03/08/16 10:55: 00 TOE SEWER, Duration: 1 doses or times, Stop date: 03/08/16 10:55:00 TOE SEWER, Surgical Prophylaxis Only; For patients < 120 kg Notes: (Same As: Hermelinda Thomas)Cefazolin FOR IV SET ONLY MEDICATION WASTE Product Size:1000 mgProduct Wasted: ___ mg Start Date: 03/08/16 Stop Date: 03/08/16 Status: CompletedAncef + sodium chloride 0.9% INJ 100 mL 2 gm, Route: IVPB, ONCE, Dosing Weight 90.909, kg, Start date: 02/26/16 9:38:00 TOE SEWER, Duration: 1 doses or times, Stop date: 02/26/16 9:38:00 TOE SEWER, Surgical Prophylaxis Only; For patients < 120 kg Notes: (Same As: Hermelinda Thomas) MEDICATION WASTE Product Size: 1000 mgProduct Wasted: ___ mg Start Date: 02/26/16 Stop Date: 02/26/16 Status: CompletedANES esmolol 10 mg, Route: IVP, Q5Min, Dosing Weight 90.009, kg, PRN Other -See Comment, Start date: 03/04/16 17:03:00 TOE SEWER, Duration: 5 doses or times, Stop date: Limited # of times Start Date: 03/04/16 Stop Date: 03/04/16 Status: DiscontinuedANES flumazenil 0.2 mg, 2 mL, Route: IVP, Drug form: INJ, PRN, Dosing Weight 90.009, kg, PRN Benzodiazepine Reversal, Initial dose, Start date: 03/04/16 17:03:00 TOE SEWER, Duration: 30 day, Stop date: 04/03/16 17:02:00 TOE SEWER Notes: (Same as: Romazicon) Start Date: 03/04/16 Stop Date: 03/04/16 Status: DiscontinuedANES labetalol 10 mg, 2 mL, Route: IVP, Drug form: INJ, Q5Min, Dosing Weight 90.009, kg, PRN Elevated BP, Start date: 03/04/16 17:03:00 TOE SEWER, Duration: 5 doses or times, Stop date: Limited # of times Start Date: 03/04/16 Stop Date: 03/04/16 Status: DiscontinuedANES morphine Sulfate 2 mg, 1 mL, Route: IVP, Drug form: INJ, Q5Min, Dosing Weight 90.009, kg, PRN Pain Score 4-6, Start date: 03/04/16 17:03:00 TOE SEWER, Duration: 5 doses or times, Stop date: Limited # of times Notes: (Same as:MORPhine Sulfate) Start Date: 03/04/16 Stop Date: 03/04/16 Status: DiscontinuedANES naloxone 0.4 mg, 1 mL, Route: IVP, Drug form: INJ, Q2MIN, Dosing Weight 90.009, kg, PRN Narcotic Reversal, Start date: 03/04/16 17:03:00 TOE SEWER, Duration: 8 doses or times , Stop date: Limited # of times Notes: Same as Narcan Start Date: 03/04/16 Stop Date: 03/04/16 Status: DiscontinuedANES ondansetron 4 mg, 2 mL, Route: IVP, Drug form: INJ, ONCE, Dosing Weight 90.009, kg, PRN Nausea & Vomiting, Start date: 03/04/16 17:03:00 TOE SEWER Notes: (Same as: Zofran) MEDICATION WASTE Product Size: 4 mgProduct Wasted: ___ mg Start Date: 03/04/16 Stop Date: 03/04/16 Status: Discontinuedbisacodyl 10 mg rectal suppository 10 mg=1 supp, NJ, ONCE, PRN Constipation | once, 0 Refill(s) Start Date: 03/11/16 Status: Orderedcalcium carbonate 500 mg (200 mg elemental calcium) oral tablet 1,000 mg, 2 tab, Route: PO, Drug form: CHEWTAB, PRN, Dosing Weight 90.009, kg, PRN Abnormal Lab Result, FOR ICU USE ONLY, Start date: 02/26/16 20:51:00 TOE SEWER, Duration: 30 day, Stop date: 03/27/16 20:50:00 TOE SEWER Notes: (Same As: Tums)Calcium Carbonate 500 lp=725 mg elemental calcium Dose=_ mg calcium carbonate ( mg elemental calcium) Start Date: 02/26/16 Stop Date: 03/10/16 Status: Discontinuedcalcium carbonate 500 mg (200 mg elemental calcium) oral tablet 500 mg, 1 tab, Route: PO, Drug form: CHEWTAB, PRN, Dosing Weight 90.009, kg, PRN Abnormal Lab Result, FOR ICU USE ONLY, Start date: 02/26/16 20:51:00 TOE SEWER, Duration: 30 day, Stop date: 03/27/16 20:50:00CST Notes: (Same As: Eliuds)Calcium Carbonate 500 cz=505 mg elemental calcium Dose=_ mg calcium carbonate ( mg elemental calcium) Start Date: 02/26/16 Stop Date: 03/10/16 Status: Discontinuedcalcium gluconate + sodium chloride 0.9% INJ 50 mL 1 gm, 10 mL, Route: IVPB, PRN, Dosing Weight 90.009, kg, PRN Abnormal Lab Result , Start date: 02/26/16 20:51:00 TOE SEWER, Duration: 30 day, Stop date: 03/27/16 20:50 :00 TOE SEWER, FOR ICU USE ONLY Notes: WASTE: F/P - Sink; E - Municipal Trash Bin Start Date: 02/26/16 Stop Date: 03/10/16 Status: DiscontinuedceFAZolin (SCIP) + sodium chloride 0.9% INJ 100 mL 2 gm, Route: IVPB, Drug form: INJ, ABXQ8H, Dosing Weight 90.009, kg, Start date : 02/27/16 1:00:00 TOE SEWER, Duration: 24 hr, Stop date: 02/27/16 17:00:00 TOE SEWER Notes: (Same As: Ancef Kefzol)Cefazolin FOR IV SET ONLY MEDICATION WASTE Product Size:1000 mgProduct Wasted: _0_ mg Start Date: 02/27/16 Stop Date: 02/27/16 Status: Completedchlorhexidine topical 0.12% liquid 15 mL, Route: Swab Mouth, PRN, Drug form: LIQ, PRN Other -See Comment, Start date: 02/26/16 9:39:00 TOE SEWER, Duration: 30 day, Stop date: 03/27/16 9:38:00 TOE SEWER Notes: (Same As: Peridex) Start Date: 02/26/16 Stop Date: 03/02/16 Status: Discontinuedchlorhexidine topical 0.12% liquid 15 mL, Route: Swab Mouth, Q12H, Drug form: LIQ, Start date: 02/26/16 21:00:00 TOE SEWER, Duration: 30 day,Stop date: 03/27/16 9:00:00 TOE SEWER Notes: (Same As: Peridex) Start Date: 02/26/16 Stop Date: 02/27/16 Status: Discontinuedchlorhexidine topical 0.12% liquid 15 mL, Route: Swab Mouth, Q4H, Drug form: LIQ, Start date: 02/27/16 12:00:00 TOE SEWER , Duration: 30 day, Stop date: 03/28/16 8:00:00 TOE SEWER Notes: (Same As: Peridex) Start Date: 02/27/16 Stop Date: 03/02/16 Status: Discontinueddexamethasone 4 mg, 1 tab, Route: PO, Drug form: TAB, Q6H, Dosing Weight 90.909, kg, Start date: 02/27/16 12:00:00CST, Duration: 30 day, Stop date: 03/28/16 6:00:00 TOE SEWER Notes: Give with food.(Same As: Decadron) Start Date: 02/27/16 Stop Date: 02/29/16 Status: Discontinueddexamethasone 4 mg, 1 mL, Route: IV, Drug form: INJ, Q6H, Dosing Weight 90.909, kg, Start date : 02/26/16 6:00:00 TOE SEWER, Duration: 30 day, Stop date: 03/27/16 0:00:00 TOE SEWER Notes: Concentration: 4mg/ml Start Date: 02/26/16 Stop Date: 02/27/16 Status: Discontinueddexamethasone 4 mg, 1 tab, Route: NJ, Drug form: TAB, Q12H, Dosing Weight 90.909, kg, Start date: 02/29/16 21:00:00 TOE SEWER, Stop date: 03/01/16 23:54:00 TOE SEWER Notes: Give with food.(Same As: Decadron) Start Date: 02/29/16 Stop Date: 03/01/16 Status: Completeddexamethasone 4 mg, 1 tab, Route: NJ, Drug form: TAB, Daily, Dosing Weight 90.009, kg, Start date: 03/02/16 9:00:00 TOE SEWER, Stop date: 03/02/16 12:00:00 TOE SEWER Notes: Give with food.(Same As: Decadron) Start Date: 03/02/16 Stop Date: 03/02/16 Status: Completeddexamethasone 10 mg, 2.5 mL, Route: IV, Drug form: INJ, ONCE, Dosing Weight 90.009, kg, Start date: 03/05/16 0:42:00 TOE SEWER, Stop date: 03/05/16 0:42:00 TOE SEWER Notes: Concentration: 4mg/ml Start Date: 03/05/16 Stop Date: 03/05/16 Status: CompletedDextrose 50% Syringe 6.25 gm, 12.5 mL, Route: IVP, Drug Form: INJ, Dosing Weight 90.909, kg, PRN, PRN Abnormal Lab Result, Start date: 02/26/16 4:09:00 TOE SEWER, Duration: 30 day, Stop date: 03/27/16 4:08:00 TOE SEWER Start Date: 02/26/16 Stop Date: 02/26/16 Status: DiscontinuedDextrose 50% Syringe 12.5 gm, 25 mL, Route: IVP, Drug Form: INJ, Dosing Weight 90.909, kg, PRN, PRN Abnormal Lab Result, Start date: 02/26/16 4:09:00 TOE SEWER, Duration: 30 day, Stop date: 03/27/16 4:08:00 TOE SEWER Start Date: 02/26/16 Stop Date: 02/26/16 Status: DiscontinuedDextrose 50% Syringe 25 gm, 50 mL, Route: IVP, Drug Form: INJ, Dosing Weight 90.909, kg, PRN, PRN Abnormal Lab Result, Start date: 02/26/16 4:09:00 TOE SEWER, Duration: 30 day, Stop date: 03/27/16 4:08:00 TOE SEWER Start Date: 02/26/16 Stop Date: 02/26/16 Status: DiscontinuedDextrose 50% Syringe 6.25 gm, 12.5 mL, Route: IVP, Drug Form: INJ, Dosing Weight 90.009, kg, PRN, PRN Abnormal Lab Result, Start date: 02/28/16 6:56:00 TOE SEWER, Duration: 30 day, Stop date: 03/29/16 6:55:00 TOE SEWER Start Date: 02/28/16 Stop Date: 02/28/16 Status: DiscontinuedDextrose 50% Syringe 12.5 gm, 25 mL, Route: IVP, Drug Form: INJ, Dosing Weight 90.009, kg, PRN, PRN Abnormal Lab Result, Start date: 02/28/16 6:56:00 TOE SEWER, Duration: 30 day, Stop date: 03/29/16 6:55:00 TOE SEWER Start Date: 02/28/16 Stop Date: 02/28/16 Status: DiscontinuedDextrose 50% Syringe 25 gm, 50 mL, Route: IVP, Drug Form: INJ, Dosing Weight 90.009, kg, PRN, PRN Abnormal Lab Result, Start date: 02/28/16 6:56:00 TOE SEWER, Duration: 30 day, Stop date: 03/29/16 6:55:00 TOE SEWER Start Date: 02/28/16 Stop Date: 02/28/16 Status: DiscontinuedDextrose 50% Syringe 12.5 gm, 25 mL, Route: IVP, Drug Form: INJ, Dosing Weight 90.009, kg, PRN, PRN Blood Glucose Results, Start date: 02/28/16 10:21:00 TOE SEWER, Duration: 30 day, Stop date: 03/29/16 10:20:00 TOE SEWER Start Date: 02/28/16 Stop Date: 03/11/16 Status: DiscontinuedDextrose 50% Syringe 25 gm, 50 mL, Route: IVP, Drug Form: INJ, Dosing Weight 90.009, kg, PRN, PRN Blood Glucose Results, Start date: 02/28/16 10:21:00 TOE SEWER, Duration: 30 day, Stop date: 03/29/16 10:20:00 TOE SEWER Start Date: 02/28/16 Stop Date: 03/11/16 Status: DiscontinuedDextrose 50% Syringe 12.5 gm, 25 mL, Route: IVP, Drug Form: INJ, Dosing Weight 90.009, kg, PRN, PRN Blood Glucose Results, Start date: 02/26/16 20:50:00 TOE SEWER, Duration: 30 day, Stop date: 03/27/16 20:49:00 TOE SEWER Start Date: 02/26/16 Stop Date: 02/28/16 Status: DiscontinuedDextrose 50% Syringe 25 gm, 50 mL, Route: IVP, Drug Form: INJ, Dosing Weight 90.009, kg, PRN, PRN Blood Glucose Results, Start date: 02/26/16 20:50:00 TOE SEWER, Duration: 30 day, Stop date: 03/27/16 20:49:00 TOE SEWER Start Date: 02/26/16 Stop Date: 02/28/16 Status: DiscontinuedDilaudid 0.5 mg, 0.25 mL, Route: IV, Drug form: INJ, Q3H, Dosing Weight 90.009, kg, PRN Pain Score 7-10, Start date: 02/26/16 18:52:00 TOE SEWER, Duration: 30 day, Stop date : 03/27/16 18:51:00 TOE SEWER Notes: Same as Dilaudid Start Date: 02/26/16 Stop Date: 03/02/16 Status: Discontinueddocusate 100 mg, 10 mL, Route: NJ, Drug form: LIQ, Q12H, Dosing Weight 90.909, kg, Start date: 02/26/16 9:00:00 TOE SEWER, Stop date: 03/26/16 21:00:00 TOE SEWER Notes: (Same as: Colace) Start Date: 02/26/16 Stop Date: 03/11/16 Status: DiscontinuedDulcolax Laxative 10 mg, 1 supp, Route: NJ, Drug form: SUPP, ONCE, Dosing Weight 90.009, kg, PRN Other -See Comment, Start date: 03/02/16 9:14:00 TOE SEWER, once Notes: (Same As: Dulcolax, Bisco-Lax) Start Date: 03/02/16 Stop Date: 03/11/16 Status: DiscontinuedDulcolax Laxative 10 mg, 1 supp, Route: NJ, Drug form: SUPP, ONCE, Dosing Weight 90.009, kg, PRN Constipation, Start date: 03/01/16 7:49:00 TOE SEWER, once Notes: (Same As: Dulcolax, Bisco-Lax) Start Date: 03/01/16 Stop Date: 03/05/16 Status: CompletedDulcolax Laxative 10 mg, 1 supp, Route: NJ, Drug form: SUPP, ONCE, Dosing Weight 90.009, kg, PRN Constipation, Start date: 03/04/16 7:17:00 TOE SEWER, once Notes: (Same As: Dulcolax, Bisco-Lax) Start Date: 03/04/16 Stop Date: 03/11/16 Status: Discontinuedfamotidine 20 mg, 2 mL, Route: IVP, Drug form: INJ, Q12H, Dosing Weight 90.909, kg, Start date: 02/26/16 9:00:00 TOE SEWER, Duration: 30 day, Stop date: 03/26/16 21:00:00 TOE SEWER Notes: (Same as: Pepcid) Start Date: 02/26/16 Stop Date: 02/27/16 Status: Discontinuedfamotidine 20 mg, 1 tab, Route: PO, Drug form: TAB, Q12H, Dosing Weight 90.909, kg, Start date: 02/27/16 21:00:00 TOE SEWER, Duration: 30 day, Stop date: 03/28/16 9:00:00 TOE SEWER Notes: (Same as: Pepcid) Start Date: 02/27/16 Stop Date: 03/01/16 Status: DiscontinuedfentaNYL 50 microgram, 1 mL, Route: IV, Drug form: INJ, ONCE, Dosing Weight 90.909, kg, PRN Pain Score 7-10, Start date: 02/26/16 11:58:00 TOE SEWER, Pediatric Dosing; For procedure; > 50 kg Notes: (Same as: Sublimaze) Preservative free. Start Date: 02/26/16 Stop Date: 02/26/16 Status: CompletedfentaNYL 1000microgram/20ml drip (pyxis) 1,000 microgram 1,000 microgram, 20 mL, Rate: Titrate, Start Dose: 50 microgram/hr, Titration: 25 microgram/hour every 15 minutes, Goal(s): RASS 0 to -1, Max Dose: 300 microgram/hr, Route: IV, Dosing Weight 90.009 kg,Total Volume: 20, Start date: 02/26/16 20:48:00 C... Start Date: 02/26/16 Stop Date: 02/29/16 Status: DiscontinuedfentaNYL 1000microgram/20ml drip (pyxis) 1,000 microgram 1,000 microgram, 20 mL, Rate: Titrate, Start Dose: 50 microgram/hr, Titration: 25 microgram/hour every 15 minutes, Goal(s): RASS 0 to -1, Max Dose: 300 microgram/hr, Route: IV, Dosing Weight 90.009 kg,Total Volume: 20, Start date: 02/29/16 21:21:00 C... Start Date: 02/29/16 Stop Date: 03/02/16 Status: Discontinuedglucagon 1 mg, Route: IM, Drug form: PDR/INJ, PRN, Dosing Weight 90.009, kg, PRN Blood Glucose Results, Startdate: 02/28/16 10:21:00 TOE SEWER, Duration: 30 day, Stop date: 03/29/16 10:20:00 TOE SEWER Start Date: 02/28/16 Stop Date: 03/11/16 Status: Discontinuedheparin 5,000 unit=1 mL, SUB-Q, Q8H, 0 Refill(s) Start Date: 03/11/16 Status: Orderedheparin 5,000 unit, 1 mL, Route: SUB-Q, Drug form: INJ, Q8H, Dosing Weight 90.009, kg, Start date: 02/28/16 0:01:00 TOE SEWER, Duration: 30 day, Stop date: 03/29/16 0:00:00 TOE SEWER Notes: porcine heparin Start Date: 02/28/16 Stop Date: 03/11/16 Status: Discontinuedinsulin isophane (NPH) 100 units/mL human recombinant subcutaneous suspension 40 unit, SUB-Q, Q8H, 0 Refill(s) Start Date: 03/11/16 Status: Orderedinsulin isophane-NPH 40 unit, 0.4 mL, Route: SUB-Q, Drug form: INJ, Q8H, Dosing Weight 90.009, kg, Start date: 03/10/16 16:00:00 TOE SEWER, Duration: 30 day, Stop date: 04/09/16 8:00: 00 TOE SEWER Notes: Roll in palms of hands gently; Do not shake vigorously. (Same as: Humulin N)Do not hold insulin without contacting prescriberWASTE: F/P - Black; E - Municipal Trash Bin Stable for 28 days at room temperatureExpires in ____ _ days from Date Start Date: 03/10/16 Stop Date: 03/11/16 Status: Discontinuedinsulin isophane-NPH 30 unit, 0.3 mL, Route: SUB-Q, Drug form: INJ, Q8H, Dosing Weight 90.009, kg, Start date: 02/28/16 9:00:00 TOE SEWER, Duration: 30 day, Stop date: 03/29/16 8:00:00 TOE SEWER Notes: Roll in palms of hands gently; Do not shake vigorously. (Same as: Humulin N)Do not hold insulin without contacting prescriberWASTE: F/P [place] Black; E - Municipal Trash Bin Stable for 28 days at room temperatureExpires in ____ _ days from Date Start Date: 02/28/16 Stop Date: 02/29/16 Status: Discontinuedinsulin isophane-NPH 50 unit, 0.5 mL, Route: SUB-Q, Drug form: INJ, Q8H, Dosing Weight 90.009, kg, Start date: 02/29/16 16:00:00 TOE SEWER, Stop date: 03/30/16 8:00:00 TOE SEWER Notes: Roll in palms of hands gently; Do not shake vigorously. (Same as: Humulin N)Do not hold insulin without contacting prescriberWASTE: F/P - Black; E - Municipal Trash Bin Stable for 28 days at room temperatureExpires in ____ _ days from Date Start Date: 02/29/16 Stop Date: 03/10/16 Status: DiscontinuedInsulin regular 9 unit, 0.09 mL, Route: SUB-Q, Drug form: SOLN, Sliding Scale, Dosing Weight 90.009, kg, PRN Blood Glucose Results, Start date: 02/28/16 10:21:00 TOE SEWER, Duration: 30 day, Stop date: 03/29/16 10:20:00 TOE SEWER Notes: (Same as: Humulin R) Roll in palms of hands gently; Do not shake vigorously. "single patientuse only"(Restricted to patients requiring a dose > 60 units)WASTE: F/P - Black; E - Municipal Trash Bin Stable for 28 days at room temperatureExpires in days from Date Start Date: 02/28/16 Stop Date: 03/11/16 Status: DiscontinuedInsulin regular 3 unit, 0.03 mL, Route: SUB-Q, Drug form: SOLN, Sliding Scale, Dosing Weight 90.009, kg, PRN Blood Glucose Results, Start date: 02/28/16 10:21:00 TOE SEWER, Duration: 30 day, Stop date: 03/29/16 10:20:00 TOE SEWER Notes: (Same as: Humulin R) Roll in palms of hands gently; Do not shake vigorously. "single patientuse only"(Restricted to patients requiring a dose > 60 units)WASTE: F/P - Black; E - Municipal Trash Bin Stable for 28 days at room temperatureExpires in days from Date Start Date: 02/28/16 Stop Date: 03/11/16 Status: DiscontinuedInsulin regular 12 unit, 0.12 mL, Route: SUB-Q, Drug form: SOLN, Sliding Scale, Dosing Weight 90.009, kg, PRN Blood Glucose Results, Start date: 02/28/16 10:21:00 TOE SEWER, Duration: 30 day, Stop date: 03/29/16 10:20:00 TOE SEWER Notes: (Same as: Humulin R) Roll in palms of hands gently; Do not shake vigorously. "single patientuse only"(Restricted to patients requiring a dose > 60 units)WASTE: F/P - Black; E - Municipal Trash Bin Stable for 28 days at room temperatureExpires in days from Date Start Date: 02/28/16 Stop Date: 03/11/16 Status: DiscontinuedInsulin regular 15 unit, 0.15 mL, Route: SUB-Q, Drug form: SOLN, Sliding Scale, Dosing Weight 90.009, kg, PRN Blood Glucose Results, Start date: 02/28/16 10:21:00 TOE SEWER, Duration: 30 day, Stop date: 03/29/16 10:20:00 TOE SEWER Notes: (Same as: Humulin R) Roll in palms of hands gently; Do not shake vigorously. "single patientuse only"(Restricted to patients requiring a dose > 60 units)WASTE: F/P - Black; E - Municipal Trash Bin Stable for 28 days at room temperatureExpires in days from Date Start Date: 02/28/16 Stop Date: 03/11/16 Status: DiscontinuedInsulin regular 6 unit, 0.06 mL, Route: SUB-Q, Drug form: SOLN, Sliding Scale, Dosing Weight 90.009, kg, PRN Blood Glucose Results, Start date: 02/28/16 10:21:00 TOE SEWER, Duration: 30 day, Stop date: 03/29/16 10:20:00 TOE SEWER Notes: (Same as: Humulin R) Roll in palms of hands gently; Do not shake vigorously. "single patientuse only"(Restricted to patients requiring a dose > 60 units)WASTE: F/P - Black; E - Municipal Trash Bin Stable for 28 days at room temperatureExpires in days from Date Start Date: 02/28/16 Stop Date: 03/11/16 Status: DiscontinuedInsulin regular 100 unit + sodium chloride 0.9% INJ 99 mL 99 mL, Rate: Start Insulin Drip Per ICU Protocol, Dosing Weight 90.009, kg, Route: IVPB, Total Volume: 100, Start Date: 02/26/16 20:50:00 TOE SEWER, Duration: 30 day, Stop date: 03/27/16 20:49:00 TOE SEWER, Replace Every: 24 hr Notes: (Same as: Humulin R and NovoLIN R)WASTE: F/P - Black; E - Municipal Trash Bin (Do not shake) Start Date: 02/26/16 Stop Date: 02/28/16 Status: Discontinuedinsulin regular 100 units/mL human recombinant 3 unit, 0.03 mL, Route: SUB-Q, Drug form: SOLN, PRN, Dosing Weight 90.909, kg, PRN Abnormal Lab Result, Start date: 02/26/16 4:09:00 TOE SEWER, Duration: 30 day, Stop date: 03/27/16 4:08:00 TOE SEWER Notes: (Same as: Humulin R) Roll in palms of hands gently; Do not shake vigorously. "single patientuse only"(Restricted to patients requiring a dose > 60 units)WASTE: F/P - Black; E - Municipal Trash Bin Stable for 28 days at room temperatureExpires in days from Date Start Date: 02/26/16 Stop Date: 02/26/16 Status: Discontinuedinsulin regular 100 units/mL human recombinant 5 unit, 0.05 mL, Route: SUB-Q, Drug form: SOLN, PRN, Dosing Weight 90.909, kg, PRN Abnormal Lab Result, Start date: 02/26/16 4:09:00 TOE SEWER, Duration: 30 day, Stop date: 03/27/16 4:08:00 TOE SEWER Notes: (Same as: Humulin R) Roll in palms of hands gently; Do not shake vigorously. "single patientuse only"(Restricted to patients requiring a dose > 60 units)WASTE: F/P - Black; E - Municipal Trash Bin Stable for 28 days at room temperatureExpires in days from Date Start Date: 02/26/16 Stop Date: 02/26/16 Status: Discontinuedinsulin regular 100 units/mL human recombinant 7 unit, 0.07 mL, Route: SUB-Q, Drug form: SOLN, PRN, Dosing Weight 90.909, kg, PRN Abnormal Lab Result, Start date: 02/26/16 4:09:00 TOE SEWER, Duration: 30 day, Stop date: 03/27/16 4:08:00 TOE SEWER Notes: (Same as: Humulin R) Roll in palms of hands gently; Do not shake vigorously. "single patientuse only"(Restricted to patients requiring a dose > 60 units)WASTE: F/P - Black; E - Municipal Trash Bin Stable for 28 days at room temperatureExpires in days from Date Start Date: 02/26/16 Stop Date: 02/26/16 Status: Discontinuedinsulin regular 100 units/mL human recombinant 3 unit, 0.03 mL, Route: SUB-Q, Drug form: SOLN, PRN, Dosing Weight 90.009, kg, PRN Abnormal Lab Result, Start date: 02/28/16 6:56:00 TOE SEWER, Duration: 30 day, Stop date: 03/29/16 6:55:00 TOE SEWER Notes: (Same as: Humulin R) Roll in palms of hands gently; Do not shake vigorously. "single patientuse only"(Restricted to patients requiring a dose > 60 units)WASTE: F/P - Black; E - Municipal Trash Bin Stable for 28 days at room temperatureExpires in days from Date Start Date: 02/28/16 Stop Date: 02/28/16 Status: Discontinuedinsulin regular 100 units/mL human recombinant 9 unit, 0.09 mL, Route: SUB-Q, Drug form: SOLN, PRN, Dosing Weight 90.009, kg, PRN Abnormal Lab Result, Start date: 02/28/16 6:56:00 TOE SEWER, Duration: 30 day, Stop date: 03/29/16 6:55:00 TOE SEWER Notes: (Same as: Humulin R) Roll in palms of hands gently; Do not shake vigorously. "single patientuse only"(Restricted to patients requiring a dose > 60 units)WASTE: F/P - Black; E - [facility] Trash Bin Stable for 28 days at room temperatureExpires in days from Date Start Date: 02/28/16 Stop Date: 02/28/16 Status: Discontinuedinsulin regular 100 units/mL human recombinant 6 unit, 0.06 mL, Route: SUB-Q, Drug form: SOLN, PRN, Dosing Weight 90.009, kg, PRN Abnormal Lab Result, Start date: 02/28/16 6:56:00 TOE SEWER, Duration: 30 day, Stop date: 03/29/16 6:55:00 TOE SEWER Notes: (Same as: Humulin R) Roll in palms of hands gently; Do not shake vigorously. "single patientuse only"(Restricted to patients requiring a dose > 60 units)WASTE: F/P - Black; E - Municipal Trash Bin Stable for 28 days at room temperatureExpires in days from Date Start Date: 02/28/16 Stop Date: 02/28/16 Status: DiscontinuedKeppra 500 mg, 5 mL, Route: PO, Drug form: SOLN, Q12H, Dosing Weight 90.009, kg, Start date: 03/10/16 9:00:00 TOE SEWER, Duration: 30 day, Stop date: 04/08/16 21:00:00 TOE SEWER Notes: Same as: Keppra Start Date: 03/10/16 Stop Date: 03/11/16 Status: DiscontinuedKeppra 500 mg, Route: IV, ONCE, Dosing Weight 90.909, kg, Start date: 02/26/16 5:39:00 TOE SEWER, Stop date: 02/26/16 5:39:00 TOE SEWER Start Date: 02/26/16 Stop Date: 02/26/16 Status: CompletedKeppra 500 mg oral tablet 500 mg, 1 tab, Route: PO, Drug form: TAB, Q12H, Dosing Weight 90.009, kg, Start date: 02/27/16 21:00:00 TOE SEWER, Duration: 30 day, Stop date: 03/28/16 9:00:00 TOE SEWER Notes: (Same as:Keppra) Start Date: 02/27/16 Stop Date: 03/09/16 Status: DiscontinuedlevETIRAcetam + sodium chloride 0.9% INJ 100 mL 500 mg, Route: IVPB, Q12H, Dosing Weight 90.909, kg, Start date: 02/26/16 9:00: 00 TOE SEWER, Duration: 30 day, Stop date: 03/26/16 21:00:00 TOE SEWER Notes: Same as KeppraMix with 100 mL NS, LR or D5W MEDICATION WASTE Product Size: 500 mgProduct Wasted: ___ mg Start Date: 02/26/16 Stop Date: 02/27/16 Status: DiscontinuedlevETIRAcetam 100 mg/mL oral solution 500 mg=5 mL, PO, Q12H, 0 Refill(s) Start Date: 03/11/16 Status: Orderedmagnesium citrate 1.745 g/30 mL oral liquid 300 ml, Route: PO, Drug Form: LIQ, Dosing Weight 90.009, kg, ONCE, Start date: 03/03/16 10:52:00 TOE SEWER, Stop date: 03/03/16 10:52:00 TOE SEWER Notes: (Same as: Citrate of Magnesia)Concentration: 1.745 gm / 30 mL Start Date: 03/03/16 Stop Date: 03/03/16 Status: Completedmagnesium citrate 1.745 g/30 mL oral liquid 300 ml, Route: PO, Drug Form: LIQ, Dosing Weight 90.009, kg, ONCE, Start date: 02/29/16 9:24:00 TOE SEWER,Stop date: 02/29/16 9:24:00 TOE SEWER Notes: (Same as: Citrate of Magnesia)Concentration: 1.745 gm / 30 mL Start Date: 02/29/16 Stop Date: 02/29/16 Status: Completedmagnesium oxide 800 mg, 2 tab, Route: PO, Drug form: TAB, PRN, Dosing Weight 90.009, kg, PRN Abnormal Lab Result, FOR ICU USE ONLY, Start date: 02/26/16 20:51:00 TOE SEWER, Duration: 30 day, Stop date: 03/27/16 20:50:00 TOE SEWER Notes: (Same as: Mag-Ox 400)Magnesium oxide [id number] elemental magnesiumDose= ____mg magnesium oxide (___mg elemental magnesium) Start Date: 02/26/16 Stop Date: 03/10/16 Status: Discontinuedmagnesium sulfate 2 gm, 50 mL, Route: IVPB, Drug form: INJ, PRN, Dosing Weight 90.009, kg, PRN Abnormal Lab Result, Start date: 02/26/16 20:51:00 TOE SEWER, Duration: 30 day, Stop date: 03/27/16 20:50:00 TOE SEWER, FOR ICU USE ONLY Notes: WASTE: F/P - Sink; E - Municipal Trash Bin Start Date: 02/26/16 Stop Date: 03/10/16 Status: Discontinuedmannitol 100 gm, 500 mL, Route: IVPB, Drug form: INJ, ONCE, Dosing Weight 90.009, kg, Priority: NOW, Start date: 02/26/16 22:29:00 TOE SEWER, Stop date: 02/26/16 22:29:00 TOE SEWER Notes: (Same as: Osmitrol)Infuse through 5 micron or smaller filter WASTE: F/P - Sink; E - Municipal Trash Bin Start Date: 02/26/16 Stop Date: 02/27/16 Status: CompletedMiraLax 17 gm, 1 pkt, Route: PO, Drug form: PWDR, Daily, Dosing Weight 90.009, kg, Start date: 02/29/16 9:00:00 TOE SEWER, Duration: 30 day, Stop date: 03/29/16 9:00:00 TOE SEWER Notes: Dissolve in 8 oz of water or juice.(Same as: Miralax) Start Date: 02/29/16 Stop Date: 03/11/16 Status: Discontinuedmorphine Sulfate 4 mg, Route: IVP, ONCE, Dosing Weight 90.909, kg, Priority: STAT, Start date: 5:31:00 TOE SEWER, Stop date: 02/26/16 5:31:00 TOE SEWER Start Date: 02/26/16 Stop Date: 02/26/16 Status: CompletedniMODipine 30 mg, 1 mL, Route: NJ, Drug form: SUSP, Q2H, Dosing Weight 90.909, kg, Start date: 02/26/16 6:00:00CST, Stop date: 03/27/16 4:00:00 TOE SEWER Notes: (Same as Nimodipine oral suspension 30mg/ml)Instill dose into NG tube and then flush with 30ml of NS Start Date: 02/26/16 Stop Date: 03/09/16 Status: DiscontinuedniMODipine 60 mg, 2 mL, Route: NJ, Drug form: SUSP, Q4H, Dosing Weight 90.909, kg, Start date: 03/10/16 0:00:00CST, Duration: 30 day, Stop date: 04/08/16 20:00:00 TOE SEWER Notes: (Same as Nimodipine oral suspension 30mg/ml)Instill dose into NG tube and then flush with 30ml of NS Start Date: 03/10/16 Stop Date: 03/11/16 Status: DiscontinuedNorco 10/325 oral tablet 1 tab, Route: PO, Drug Form: TAB, Dosing Weight 90.009, kg, Q4H, PRN Pain Score 4-6, Start date: 02/26/16 18:52:00 TOE SEWER, Duration: 30 day, Stop date: 03/27/16 18 :51:00 TOE SEWER Notes: Do not exceed 4gm/day of acetaminophen. (Same as: [place] 325/10) Start Date: 02/26/16 Stop Date: 03/02/16 Status: DiscontinuedNS (Bolus) IV 1,000 mL, 1,000 ml/hr, Infuse Over: 1 hr, Route: IV, 1,000, Drug form: INJ, ONCE , Priority: STAT, Dosing Weight 90.009 kg, Start date: 02/28/16 22:21:00 TOE SEWER, Duration: 1 doses or times, Stop date: 02/28/16 22:21:00 TOE SEWER Start Date: 02/28/16 Stop Date: 02/28/16 Status: CompletedNS (Bolus) IV 500 mL, 500 ml/hr, Infuse Over: 1 hr, Route: IV, 500, Drug form: INJ, ONCE, Priority: STAT, Dosing Weight 90.009 kg, Start date: 02/28/16 23:36:00 TOE SEWER, Duration: 1 doses or times, Stop date: 02/28/16 23:36:00 TOE SEWER Start Date: 02/28/16 Stop Date: 02/29/16 Status: CompletedNS (Bolus) IV 500 mL, 500 ml/hr, Infuse Over: 1 hr, Route: IV, 500, Drug form: INJ, ONCE, Priority: STAT, Dosing Weight 90.009 kg, Start date: 03/03/16 8:37:00 TOE SEWER, Duration: 1 doses or times, Stop date: 03/03/16 8:37:00 TOE SEWER Start Date: 03/03/16 Stop Date: 03/03/16 Status: CompletedNS (Bolus) IV 1,000 mL, 1,000 ml/hr, Infuse Over: 1 hr, Route: IV, 1,000, Drug form: INJ, ONCE , Priority: STAT, Dosing Weight 90.009 kg, Start date: 03/08/16 6:25:00 TOE SEWER, Duration: 1 doses or times, Stop date: 03/08/16 6:25:00 TOE SEWER Start Date: 03/08/16 Stop Date: 03/08/16 Status: CompletedNS (Bolus) IV 1,000 mL, 1,000 ml/hr, Infuse Over: 1 hr, Route: IV, 1,000, Drug form: INJ, ONCE , Priority: STAT, Dosing Weight 90.009 kg, Start date: 03/02/16 9:04:00 TOE SEWER, Duration: 1 doses or times, Stop date: 03/02/16 9:04:00 TOE SEWER Start Date: 03/02/16 Stop Date: 03/02/16 Status: CompletedNS (Bolus) IV 250 mL, 250 ml/hr, Infuse Over: 1 hr, Route: IV, 250, Drug form: INJ, ONCE, Priority: STAT, Dosing Weight 90.009 kg, Start date: 03/07/16 14:24:00 TOE SEWER, Duration: 1 doses or times, Stop date: 03/07/16 14:24:00 TOE SEWER Start Date: 03/07/16 Stop Date: 03/07/16 Status: DiscontinuedNS (Bolus) IV 500 mL, 500 ml/hr, Infuse Over: 1 hr, Route: IV, 500, Drug form: INJ, ONCE, Priority: STAT, Dosing Weight 90.009 kg, Start date: 03/06/16 6:30:00 TOE SEWER, Duration: 1 doses or times, Stop date: 03/06/16 6:30:00 TOE SEWER Start Date: 03/06/16 Stop Date: 03/06/16 Status: CompletedNS (Bolus) IV 500 mL, 500 ml/hr, Infuse Over: 1 hr, Route: IV, 500, Drug form: INJ, ONCE, Priority: STAT, Dosing Weight 90.009 kg, Start date: 03/02/16 21:40:00 TOE SEWER, Duration: 1 doses or times, Stop date: 03/02/16 21:40:00 TOE SEWER Start Date: 03/02/16 Stop Date: 03/02/16 Status: CompletedNS (Bolus) IV 1,000 mL, 1,000 ml/hr, Infuse Over: 1 hr, Route: IV, 1,000, Drug form: INJ, ONCE , Priority: STAT, Dosing Weight 90.009 kg, Start date: 02/27/16 2:42:00 TOE SEWER, Duration: 1 doses or times, Stop date: 02/27/16 2:42:00 TOE SEWER Start Date: 02/27/16 Stop Date: 02/27/16 Status: CompletedNS (Bolus) IV 500 mL, 500 ml/hr, Infuse Over: 1 hr, Route: IV, 500, Drug form: INJ, ONCE, Priority: STAT, Dosing Weight 90.009 kg, Start date: 03/06/16 7:54:00 TOE SEWER, Duration: 1 doses or times, Stop date: 03/06/16 7:54:00 TOE SEWER Start Date: 03/06/16 Stop Date: 03/06/16 Status: CompletedOmnipaque 300 150 ml, Route: INTRAARTERIAL, Dosing Weight 90.009, kg, ONCE, Start date: 16:39:00 TOE SEWER, Stop date: 03/04/16 16:39:00 TOE SEWER Start Date: 03/04/16 Stop Date: 03/04/16 Status: CompletedOmnipaque 350 150 ml, Route: INTRAARTERIAL, Dosing Weight 90.909, kg, ONCE, Start date: 8:56:00 TOE SEWER, Stopdate: 02/26/16 8:56:00 TOE SEWER Start Date: 02/26/16 Stop Date: 02/26/16 Status: Completedondansetron 4 mg, Route: IVP, Drug form: INJ, ONCE, Dosing Weight 90.909, kg, Priority: STAT , Start date: 02/26/16 5:31:00 TOE SEWER, Stop date: 02/26/16 5:31:00 TOE SEWER Start Date: 02/26/16 Stop Date: 02/26/16 Status: Completedpneumococcal 13-valent vaccine 0.5 mL, Route: IM, Drug Form: INJ, Daily, Start date: 02/29/16 9:00:00 TOE SEWER, Duration: 1 doses or times, Stop date: 02/29/16 9:00:00 TOE SEWER Notes: (Same as: [place] 13) Start Date: 02/29/16 Stop Date: 02/29/16 Status: Completedpolyethylene glycol 3350 PO, Daily, 0 Refill(s) Start Date: 03/11/16 Status: Orderedpotassium chloride 20 mEq, 15 mL, Route: NJ, Drug form: LIQ, PRN, Dosing Weight 90.009, kg, PRN Abnormal Lab Result, Start date: 02/26/16 20:51:00 TOE SEWER, Duration: 30 day, Stop date: 03/27/16 20:50:00 TOE SEWER, FOR ICU USE ONLY Notes: (Same as: Potassium Chloride) Start Date: 02/26/16 Stop Date: 03/10/16 Status: Discontinuedpotassium chloride 20 mEq, 1 tab, Route: PO, Drug form: ERTAB, PRN, Dosing Weight 90.009, kg, PRN Abnormal Lab Result, Start date: 02/26/16 20:51:00 TOE SEWER, Duration: 30 day, Stop date: 03/27/16 20:50:00 TOE SEWER, FOR ICU USE ONLY Notes: (Same as: K-Dur 20)"Do Not Crush" With food and full glass of water Start Date: 02/26/16 Stop Date: 03/10/16 Status: Discontinuedpotassium chloride 20 mEq, 100 mL, Route: IVPB, Drug form: INJ, PRN, Dosing Weight 90.009, kg, PRN Abnormal Lab Result,Via central line, Start date: 02/26/16 20:51:00 TOE SEWER, Duration: 30 day, Stop date: 03/27/16 20:50:00 TOE SEWER, FOR ICU USE ONLY Notes: (Same as: KCL) Infuse no faster than 10 mEq/hr if given peripherally. Start Date: 02/26/16 Stop Date: 03/10/16 Status: Discontinuedpotassium chloride 10 mEq, 50 mL, Route: IVPB, Drug form: INJ, PRN, Dosing Weight 90.009, kg, PRN Abnormal Lab Result, Via peripheral line, Start date: 02/26/16 20:51:00 TOE SEWER, Duration: 30 day, Stop date: 03/27/16 20:50:00 TOE SEWER, FOR ICU USE ONLY Notes: (Same as: KCL) Infuse over 2 hours. Start Date: 02/26/16 Stop Date: 03/10/16 Status: Discontinuedpotassium phosphate + sodium chloride 0.9% INJ 250 mL 45 mmol, 15 mL, Route: IVPB, PRN, Dosing Weight 90.009, kg, PRN Abnormal Lab Result, Start date: 02/26/16 20:51:00 TOE SEWER, Duration: 30 day, Stop date: 20:50:00 TOE SEWER, FOR ICU USE ONLY Notes: (Same as: K Phosphate.) 1 mMol phoshate has 1.47 mEq potassium Infuse over 4 hours Start Date: 02/26/16 Stop Date: 03/10/16 Status: Discontinuedpotassium phosphate + sodium chloride 0.9% INJ 250 mL 15 mmol, 5 mL, Route: IVPB, PRN, Dosing Weight 90.009, kg, PRN Abnormal Lab Result, Start date: 02/26/16 20:51:00 TOE SEWER, Duration: 30 day, Stop date: 20:50:00 TOE SEWER, FOR ICU USE ONLY Notes: (Same as: K Phosphate.) 1 mMol phoshate has 1.47 mEq potassium Infuse over 4 hours Start Date: 02/26/16 Stop Date: 03/10/16 Status: Discontinuedpotassium phosphate + sodium chloride 0.9% INJ 250 mL 30 mmol, 10 mL, Route: IVPB, PRN, Dosing Weight 90.009, kg, PRN Abnormal Lab Result, Start date: 02/26/16 20:51:00 TOE SEWER, Duration: 30 day, Stop date: 20:50:00 TOE SEWER, FOR ICU USE ONLY Notes: (Same as: K Phosphate.) 1 mMol phoshate has 1.47 mEq potassium Infuse over 4 hours Start Date: 02/26/16 Stop Date: 03/10/16 Status: Discontinuedpotassium phosphate-sodium phosphate 250 mg-280 mg-160 mg oral powder for reconstitution 2 pkt, Route: PO, Drug Form: PDR/REC, Dosing Weight 90.009, kg, PRN, PRN Abnormal Lab Result, FOR ICU USE ONLY, Start date: 02/26/16 20:51:00 TOE SEWER, Duration: 30 day, Stop date: 03/27/16 20:50:00 TOE SEWER Notes: (Same as: Phos-NaK) Each 1.5 gm pkt has 250mg phosphorous. Mix w/2.5oz water and stir. Start Date: 02/26/16 Stop Date: 03/10/16 Status: Discontinuedpropofol INJ 1,000 mg 1,000 mg, 100 mL, Rate: Titrate, Start Dose: 5 microgram/kg/min, Titration: 5 microgram/kg/min every15 min, Goal(s): MAP 70-100, Max Dose: 50 microgram/kg/min , Route: IV, Dosing Weight 90.909 kg, Total Volume: 100, Start date: 02/26/16 11 :59:00 TOE SEWER,... Start Date: 02/26/16 Stop Date: 02/29/16 Status: Discontinuedracemic epinephrine 2.25% inhalation solution 11.25 mg, 0.5 mL, Route: NEB, Drug Form: SOLN, Dosing Weight 90.009, kg, RQ4H, STAT, Start date: 03/01/16 14:46:00 TOE SEWER, Duration: 30 day, Stop date: 03/31/16 11:00:00 TOE SEWER Notes: (racepinephrine *2.25% inh 0.5ml SOLN) (Same as:S2) Start Date: 03/01/16 Stop Date: 03/02/16 Status: Discontinuedracemic epinephrine 2.25% inhalation solution 11.25 mg, 0.5 mL, Route: NEB, Drug Form: SOLN, Dosing Weight 90.009, kg, RQ4H, Start date: 03/05/16 3:00:00 TOE SEWER, Duration: 30 day, Stop date: 04/03/16 23:00: 00 TOE SEWER Notes: (racepinephrine *2.25% inh 0.5ml SOLN) (Same as:S2) Start Date: 03/05/16 Stop Date: 03/05/16 Status: DiscontinuedSaline Flush 0.9% 10 mL, Route: IVP, Drug Form: INJ, Dosing Weight 90.909, kg, PRN, PRN Line Flush , Start date: 02/26/16 2:46:00 TOE SEWER, Duration: 30 day, Stop date: 03/27/16 2:45: 00 TOE SEWER Notes: Same as: BD Posiflush Sterile Start Date: 02/26/16 Stop Date: 03/11/16 Status: Discontinuedsenna 8.8 mg, 5 mL, Route: NJ, Drug Form: SYRP, Dosing Weight 90.909, kg, Q12H, Start date: 02/26/16 9:00:00 TOE SEWER, Stop date: 03/26/16 21:00:00 TOE SEWER Notes: (Same as: Senokot) Start Date: 02/26/16 Stop Date: 03/11/16 Status: Discontinuedsodium chloride 0.9% 1000 ml INJ 1,000 mL 1,000 mL, Rate: 75 ml/hr, Infuse over: 13.3 hr, Route: IV, Dosing Weight 90.909 kg, Total Volume: 1,000, Start date: 02/26/16 4:09:00 TOE SEWER, Duration: 30 day, Stop date: 03/27/16 4:08:00 TOE SEWER Start Date: 02/26/16 Stop Date: 02/27/16 Status: Discontinuedsodium chloride 0.9% 1000 ml INJ 1,000 mL 1,000 mL, Rate: 100 ml/hr, Infuse over: 10 hr, Route: IV, Dosing Weight 90.009 kg, Total Volume: 1,000, Start date: 02/29/16 10:01:00 TOE SEWER, Stop date: 03/30/16 10:00:00 TOE SEWER Start Date: 02/29/16 Stop Date: 03/09/16 Status: Discontinuedsodium chloride 1 gm oral tablet 1 gm, 1 tab, Route: PO, Drug form: TAB, Q6H, Dosing Weight 90.009, kg, Priority : NOW, Start date: 03/09/16 18:11:00 TOE SEWER, Duration: 30 day, Stop date: 04/08/16 18:00:00 TOE SEWER Start Date: 03/09/16 Stop Date: 03/11/16 Status: Discontinuedsodium chloride 23.4% (BOLUS) 120 mEq, 30 mL, 60 ml/hr, Infuse Over: 30 minutes, Route: IV, 30, Drug form: INJ , ONCE, Dosing Weight 90.009 kg, Start date: 02/26/16 22:47:00 TOE SEWER, Duration: 1 doses or times, Stop date: 02/26/16 22:47:00 TOE SEWER Start Date: 02/26/16 Stop Date: 02/27/16 Status: Completedsodium chloride 3% INJ 500 mL 500 mL, Rate: 50 ml/hr, Infuse over: 10 hr, Route: IV, Dosing Weight 90.009 kg, Total Volume: 500, Start date: 02/27/16 0:34:00 TOE SEWER, Stop date: 03/28/16 0:33: 00 TOE SEWER Notes: "Administer by central venous catheter or a peripherally inserted central catheter (PICC) line.3% Sodium Chloride may be infused via peripheral administration into large vein (antecubital) only in the case of emergency for short term use until a central line can be inserted" (Same as: Hypertonic Saline 3%)concentration=0.513 mEq/mL Start Date: 02/27/16 Stop Date: 02/29/16 Status: Discontinuedsodium phosphate + sodium chloride 0.9% INJ 250 mL 30 mmol, 10 mL, Route: IVPB, PRN, Dosing Weight 90.009, kg, PRN Abnormal Lab Result, Start date: 02/26/16 20:51:00 TOE SEWER, Duration: 30 day, Stop date: 20:50:00 TOE SEWER, FOR ICU USE ONLY Start Date: 02/26/16 Stop Date: 03/10/16 Status: Discontinuedsodium phosphate + sodium chloride 0.9% INJ 250 mL 45 mmol, 15 mL, Route: IVPB, PRN, Dosing Weight 90.009, kg, PRN Abnormal Lab Result, Start date: 02/26/16 20:51:00 TOE SEWER, Duration: 30 day, Stop date: 20:50:00 TOE SEWER, FOR ICU USE ONLY Start Date: 02/26/16 Stop Date: 03/10/16 Status: Discontinuedsodium phosphate + sodium chloride 0.9% INJ 250 mL 15 mmol, 5 mL, Route: IVPB, PRN, Dosing Weight 90.009, kg, PRN Abnormal Lab Result, Start date: 02/26/16 20:51:00 TOE SEWER, Duration: 30 day, Stop date: 20:50:00 TOE SEWER, FOR ICU USE ONLY Start Date: 02/26/16 Stop Date: 03/10/16 Status: DiscontinuedTylenol 650 mg, 20.3 mL, Route: PO, Drug form: LIQ, Q6H, Dosing Weight 90.009, kg, PRN Pain Score 1-3, Startdate: 03/02/16 10:25:00 TOE SEWER, Stop date: 04/01/16 10:24:00 TOE SEWER Notes: Max hjvgkwajdbane=5658qr/day (4 gm/day). (Same as: Tylenol) Start Date: 03/02/16 Stop Date: 03/11/16 Status: DiscontinuedTylenol 650 mg, 20.3 mL, Route: PO, Drug form: LIQ, Q4H, Dosing Weight 90.009, kg, PRN Pain 1-3/Temp > 100.4 F, Start date: 02/29/16 5:47:00 TOE SEWER, Stop date: 03/30/16 5 :46:00 TOE SEWER Notes: Max ypbdtkfzgfjye=9547pb/day (4 gm/day). (Same as: Tylenol) Start Date: 02/29/16 Stop Date: 03/11/16 Status: DiscontinuedVisipaque 320mg/ml 100 mL, Route: IVP, Drug Form: SOLN, Dosing Weight 90.909, kg, ONCALL, STAT, Start date: 02/26/16 3:43:00 TOE SEWER, Duration: 1 doses or times, Dose=2.2ml/kg, Max drex=596tc -- "To be infused by Radiology Staff ONLY" Start Date: 02/26/16 Stop Date: 02/26/16 Status: CompletedZantac 150 mg, 10 mL, Route: NJ, Drug form: SYRP, Q12H, Start date: 03/01/16 21:00:00 TOE SEWER, Duration: 30 day, Stop date: 03/31/16 9:00:00 TOE SEWER Notes: (Same as:Zantac) Take before or with meals Start Date: 03/01/16 Stop Date: 03/05/16 Status: Discontinued Results BLOOD BANK RESULTS Most recent to oldest 1 2 3 [Reference Range]: ABO/Rh A POS A POS A POS *Unknown* *Unknown* *Unknown* (03/08/16 12:29 AM) (03/04/16 12:31 AM) (02/26/16 3:00 AM) Antibody Scrn Negative Negative Negative (03/08/16 12:29 AM) (03/04/16 12:31 AM) (02/26/16 3:00 AM) ELECTROLYTES Most recent to oldest 1 2 3 [Reference Range]: Sodium Lvl [135-145 mEq/L] 137 mEq/L 135 mEq/L 133 mEq/L (03/11/16 4:54 AM) (03/10/16 2:06 AM) *LOW* (03/09/16 3:07 PM) Potassium Lvl [3.5-5.1 4.1 mEq/L 3.6 mEq/L 3.7 mEq/L mEq/L] (03/11/16 4:54 AM) (03/10/16 2:06 AM) (03/09/16 2:56 AM) Chloride Lvl [95-109 mEq/L] 104 mEq/L 100 mEq/L 100 mEq/L (03/11/16 4:54 AM) (03/10/16 2:06 AM) (03/09/16 2:56 AM) CO2 [24-32 mEq/L] 23 mEq/L 29 mEq/L 23 mEq/L *LOW* (03/10/16 2:06 AM) *LOW* (03/11/16 4:54 AM) (03/09/16 2:56 AM) AGAP [10.0-20.0 mEq/L] 14.1 mEq/L 9.6 mEq/L 14.7 mEq/L (03/11/16 4:54 AM) *LOW* (03/09/16 2:56 AM) (03/10/16 2:06 AM) CHEM PANEL Most recent to oldest 1 2 3 [Reference Range]: Creatinine Lvl [0.50-1.40 0.59 mg/dL 0.58 mg/dL 0.56 mg/dL mg/dL] (03/11/16 4:54 AM) (03/10/16 2:06 AM) (03/09/16 2:56 AM) eGFR 97 mL/min/1.73m2 1 98 mL/min/1.73m2 2 99 mL/min/1.73m2 3 *NA* *NA* *NA* (03/11/16 4:54 AM) (03/10/16 2:06 AM) (03/09/16 2:56 AM) BUN [7-22 mg/dL] 20 mg/dL 20 mg/dL 19 mg/dL (03/11/16 4:54 AM) (03/10/16 2:06 AM) (03/09/16 2:56 AM) B/C Ratio [6-25] 27 *HI* (02/26/16 2:56 AM) Glucose Lvl [70-99 mg/dL] 95 mg/dL 85 mg/dL 130 mg/dL (03/11/16 4:54 AM) (03/10/16 2:06 AM) *HI* (03/09/16 2:56 AM) Total Protein [6.4-8.4 g/dL] 7.8 g/dL (02/26/16 2:56 AM) Albumin Lvl [3.5-5.0 g/dL] 3.7 g/dL (02/26/16 2:56 AM) Globulin [2.7-4.2 g/dL] 4.1 g/dL (02/26/16 2:56 AM) A/G Ratio [0.7-1.6] 0.9 (02/26/16 2:56 AM) Calcium Lvl [8.5-10.5 mg/dL] 8.6 mg/dL 8.8 mg/dL 8.8 mg/dL (03/11/16 4:54 AM) (03/10/16 2:06 AM) (03/09/16 2:56 AM) Phosphorus [2.5-4.5 mg/dL] 4.0 mg/dL 4.2 mg/dL 3.4 mg/dL (03/11/16 4:54 AM) (03/10/16 2:06 AM) (03/09/16 2:56 AM) Magnesium Lvl [1.8-2.4 2.4 mg/dL 2.8 mg/dL 2.3 mg/dL mg/dL] (03/11/16 4:54 AM) *HI* (03/09/16 2:56 AM) (03/10/16 2:06 AM) ALT [0-65 unit/L] 52 unit/L (02/26/16 2:56 AM) AST [0-37 unit/L] 45 unit/L *HI* (02/26/16 2:56 AM) Alk Phos [39-136 unit/L] 81 unit/L (02/26/16 2:56 AM) Bili Total [0.2-1.3 mg/dL] 0.4 mg/dL (02/26/16 2:56 AM) 1Result Comment: The eGFR is calculated using the CKD-EPI formula. In most young , healthy individualsthe eGFR will be >90 mL/min/1.73m2. The eGFR declines with age. An eGFR of 60-89 may be normal in some populations, particularly the elderly, for whom the CKD-EPI formula has not been extensively validated. Use of the eGFR is not recommended in the following populations: Individuals with unstable creatinine concentrations, including patients and those with serious co-morbid conditions. Patients with extremes in muscle mass or diet. The data above are obtained from the National Kid[employer] Education Program ( [employer]) which additionally recommends that when the eGFR is used in patients with extremes of body mass index for purposesof drug dosing, the eGFR should be multiplied by the estimated BMI.2Result Comment: The eGFR is calculated using the CKD-EPI formula. In most young, healthy individualsthe eGFR will be >90 mL/ min/1.73m2. The eGFR declines with age. An eGFR of 60-89 may be normal in some populations, particularly the elderly, for whom the CKD-EPI formula has not been extensively validated. Use of the eGFR is not recommended in the following populations: Individuals with unstable creatinine concentrations, including patients and those with serious co-morbid conditions. Patients with extremes in muscle mass or diet. The data above are obtained from the National [employer] Education Program ( [employer]) which additionally recommends that when the eGFR is used in patients with extremes of body mass index for purposesof drug dosing, the eGFR should be multiplied by the estimated BMI.3Result Comment: The eGFR is calculated using the CKD-EPI formula. In most young, healthy individualsthe eGFR will be >90 mL/ min/1.73m2. The eGFR declines with age. An eGFR of 60-89 may be normal in some populations, particularly the elderly, for whom the CKD-EPI formula has not been extensively validated. Use of the eGFR is not recommended in the following populations: Individuals with unstable creatinine concentrations, including patients and those with serious co-morbid conditions. Patients with extremes in muscle mass or diet. The data above are obtained from the National Kid[employer] Education Program ( [employer]) which additionally recommends that when the eGFR is used in patients with extremes of body mass index for purposesof drug dosing, the eGFR should be multiplied by the estimated BMI.CARDIAC ENZYMES Most recent to oldest [Reference Range]: 1 2 3 Troponin-I [0.00-0.40 ng/mL] <0.02 ng/mL (02/29/16 12:37 AM) SPECIAL CHEMISTRY Most recent to oldest [Reference Range]: 1 2 3 Hgb A1C [<=5.6 %] 8.9 % *HI* (02/27/16 12:40 AM) PARATHYROID PROFILE Most recent to oldest 1 2 3 [Reference Range]: Ca Ion WB [1.05-1.25 mMol/L] 1.00 mMol/L 1.14 mMol/L 1.02 mMol/L *LOW* (03/10/16 2:06 AM) *LOW* (03/11/16 4:54 AM) (03/09/16 2:56 AM) Ca Norm WB [1.05-1.25 1.06 mMol/L 1.11 mMol/L 1.06 mMol/L mMol/L] (03/11/16 4:54 AM) (03/10/16 2:06 AM) (03/09/16 2:56 AM) DRUG SCREEN Most recent to oldest [Reference Range]: 1 2 3 U Methadone Scr [Negative] Negative *NA* (02/27/16 12:41 AM) U Propoxyph Scr [Negative] Negative *NA* (02/27/16 12:41 AM) U Amph Scr [Negative] Negative *NA* (02/27/16 12:41 AM) U Belinda Scr [Negative] Negative *NA* (02/27/16 12:41 AM) U Benzodia Scr [Negative] Negative *NA* (02/27/16 12:41 AM) U Cocaine Scr [Negative] Negative *NA* (02/27/16 12:41 AM) U Opiate Scr [Negative] Negative *NA* (02/27/16 12:41 AM) U Phencyc Scr [Negative] Negative *NA* (02/27/16 12:41 AM) U Cannab Scr [Negative] Negative *NA* (02/27/16 12:41 AM) UDS Note See Note *NA* (02/27/16 12:41 AM) URINE AND STOOL Most recent to oldest 1 2 3 [Reference Range]: UA Turbidity [Clear] Slight Cloudy Clear Slight (03/07/16 4:52 PM) (03/05/16 9:24 AM) *ABN* (02/29/16 11:57 AM) UA Color [Yellow] Yellow Yellow Yellow *NA* *NA* *NA* (03/07/16 4:52 PM) (03/05/16 9:24 AM) (02/29/16 11:57 AM) UA pH [5.0-8.0] 6.5 (03/07/16 4:52 PM) UA pH [5.0-8.0] 7.0 5.5 (03/05/16 9:24 AM) (02/29/16 11:57 AM) UA Spec Grav [<=1.030] 1.010 (03/07/16 4:52 PM) UA Spec Grav [<=1.030] 1.011 1.016 (03/05/16 9:24 AM) (02/29/16 11:57 AM) UA Glucose [Negative] Negative (03/07/16 4:52 PM) UA Glucose [Negative 300 mg/dL 30 mg/dL mg/dL] *ABN* *ABN* (03/05/16 9:24 AM) (02/29/16 11:57 AM) UA Blood [Negative] Moderate Negative Negative *ABN* (03/05/16 9:24 AM) (02/29/16 11:57 AM) (03/07/16 4:52 PM) UA Ketones [Negative] Negative *NA* (03/07/16 4:52 PM) UA Ketones [Negative Negative mg/dL Negative mg/dL mg/dL] *NA* *NA* (03/05/16 9:24 AM) (02/29/16 11:57 AM) UA Protein [Negative] Negative (03/07/16 4:52 PM) UA Protein [Negative Negative mg/dL Negative mg/dL mg/dL] (03/05/16 9:24 AM) (02/29/16 11:57 AM) UA Urobilinogen [0.1-1.0 0.2 EU/dL EU/dL] (03/07/16 4:52 PM) UA Urobilinogen [0.1-1.0 <=1.0 mg/dL <=1.0 mg/dL mg/dL] *NA* *NA* (03/05/16 9:24 AM) (02/29/16 11:57 AM) UA Bili [Negative] Negative Negative Negative *NA* *NA* *NA* (03/07/16 4:52 PM) (03/05/16 9:24 AM) (02/29/16 11:57 AM) UA Leuk Est [Negative] Negative Negative Negative (03/07/16 4:52 PM) (03/05/16 9:24 AM) (02/29/16 11:57 AM) UA Nitrite [Negative] Negative Negative Negative (03/07/16 4:52 PM) (03/05/16 9:24 AM) (02/29/16 11:57 AM) UA WBC [0-5 /HPF] 7 /HPF 1 /HPF 2 /HPF *HI* (03/05/16 9:24 AM) (02/29/16 11:57 AM) (03/07/16 4:52 PM) UA RBC [0-2 /HPF] 12 /HPF 7 /HPF 2 /HPF *HI* *HI* (02/29/16 11:57 AM) (03/07/16 4:52 PM) (03/05/16 9:24 AM) UA Bacteria [None Seen Few /HPF Occasional /HPF /HPF] *NA* *NA* (03/07/16 4:52 PM) (02/27/16 12:41 AM) UA Sq Epi RARE None Seen None Seen *NA* *NA* *NA* (03/07/16 4:52 PM) (02/29/16 11:57 AM) (02/27/16 2:35 PM) UA Hyal Cast [0-2 /LPF] 1 /LPF (02/29/16 11:57 AM) UA Amorph Trixie [None Seen Occasional /HPF /HPF] *NA* (02/27/16 12:41 AM) UA Mucus [None Seen /LPF] Few /LPF Few /LPF Few /LPF *NA* *NA* *NA* (03/07/16 4:52 PM) (03/05/16 9:24 AM) (02/29/16 11:57 AM) Micro? Not Indicated *NA* (03/05/16 9:24 AM) BODY FLUIDS Most recent to oldest 1 2 3 [Reference Range]: Glucose CSF [45-80 mg/dL] 129 mg/dL 115 mg/dL 78 mg/dL *HI* *HI* (03/01/16 3:14 PM) (03/07/16 4:52 PM) (03/05/16 4:02 PM) Protein CSF [15-45 mg/dL] 60 mg/dL 1 52 mg/dL 87 mg/dL 2 *HI* *HI* *HI* (03/07/16 4:52 PM) (03/05/16 4:02 PM) (03/01/16 3:14 PM) Lactic Acid CSF [0.6-2.2 3.2 mMol/L 2.7 mMol/L mMol/L] *HI* *HI* (03/07/16 4:52 PM) (03/01/16 3:14 PM) Tube Num CSF 1 *NA* (03/07/16 4:52 PM) Tube Num CSF xxxxxxx xxxxxxx (03/05/16 4:02 PM) (03/01/16 3:14 PM) Color CSF [Colorless] Red Red Red *ABN* *ABN* *ABN* (03/07/16 4:52 PM) (03/05/16 4:02 PM) (03/01/16 3:14 PM) Clarity CSF [Clear] Moderate Marked Marked *ABN* *ABN* *ABN* (03/07/16 4:52 PM) (03/05/16 4:02 PM) (03/01/16 3:14 PM) Supernat CSF [Colorless] Hemolyzed Hemolyzed Hemolyzed *ABN* *ABN* *ABN* (03/07/16 4:52 PM) (03/05/16 4:02 PM) (03/01/16 3:14 PM) RBC CSF [0-0 /mm3] 87232 /mm3 64219 /mm3 20568 /mm3 *HI* *HI* *HI* (03/07/16 4:52 PM) (03/05/16 4:02 PM) (03/01/16 3:14 PM) WBC CSF [0-5 /mm3] 69 /mm3 233 /mm3 233 /mm3 *HI* *HI* *HI* (03/07/16 4:52 PM) (03/05/16 4:02 PM) (03/01/16 3:14 PM) Segs CSF [0-6 %] 55 % 69 % 74 % *HI* *HI* *HI* (03/07/16 4:52 PM) (03/05/16 4:02 PM) (03/01/16 3:14 PM) Lymph CSF [40-80 %] 27 % 21 % 13 % *LOW* *LOW* *LOW* (03/07/16 4:52 PM) (03/05/16 4:02 PM) (03/01/16 3:14 PM) Monocyte CSF [15-45 %] 18 % 10 % 13 % (03/07/16 4:52 PM) *LOW* *LOW* (03/05/16 4:02 PM) (03/01/16 3:14 PM) 1Result Comment: "Significant Findings called to Rene Liborio_at _03/07/2016 18: 38_by _ DH_.Read Back OK."2Result Comment: "Significant Findings called to Isaac Mercado_at 03/01/2016 17:12__by DH__.Read Back OK."HEMATOLOGY Most recent to oldest 1 2 3 [Reference Range]: WBC [3.7-10.4 K/CMM] 14.1 K/CMM 15.8 K/CMM 16.6 K/CMM *HI* *HI* *HI* (03/11/16 4:54 AM) (03/10/16 2:06 AM) (03/09/16 2:56 AM) RBC [4.20-5.40 M/CMM] 3.59 M/CMM 3.55 M/CMM 3.54 M/CMM *LOW* *LOW* *LOW* (03/11/16 4:54 AM) (03/10/16 2:06 AM) (03/09/16 2:56 AM) Hgb [12.0-16.0 g/dL] 11.5 g/dL 11.1 g/dL 11.3 g/dL *LOW* *LOW* *LOW* (03/11/16 4:54 AM) (03/10/16 2:06 AM) (03/09/16 2:56 AM) Hct [36.0-48.0 %] 33.8 % 33.9 % 33.3 % *LOW* *LOW* *LOW* (03/11/16 4:54 AM) (03/10/16 2:06 AM) (03/09/16 2:56 AM) MCV [80.0-98.0 fL] 94.2 fL 95.6 fL 94.1 fL (03/11/16 4:54 AM) (03/10/16 2:06 AM) (03/09/16 2:56 AM) MCH [27.0-31.0 pg] 32.2 pg 31.3 pg 31.9 pg *HI* *HI* *HI* (03/11/16 4:54 AM) (03/10/16 2:06 AM) (03/09/16 2:56 AM) MCHC [32.0-36.0 g/dL] 34.2 g/dL 32.7 g/dL 33.8 g/dL (03/11/16 4:54 AM) (03/10/16 2:06 AM) (03/09/16 2:56 AM) RDW [11.5-14.5 %] 14.3 % 13.5 % 13.7 % (03/11/16 4:54 AM) (03/10/16 2:06 AM) (03/09/16 2:56 AM) Platelet [133-450 359 K/CMM 333 K/CMM 330 K/CMM K/CMM] (03/11/16 4:54 AM) (03/10/16 2:06 AM) (03/09/16 2:56 AM) MPV [7.4-10.4 fL] 8.3 fL 8.7 fL 8.1 fL (03/11/16 4:54 AM) (03/10/16 2:06 AM) (03/09/16 2:56 AM) Segs [45.0-75.0 %] 67.9 % 64.9 % 70.0 % (03/11/16 4:54 AM) (03/10/16 2:06 AM) (03/09/16 2:56 AM) Lymphocytes [20.0-40.0 23.3 % 24.8 % 20.7 % %] (03/11/16 4:54 AM) (03/10/16 2:06 AM) (03/09/16 2:56 AM) Monocytes [2.0-12.0 %] 6.4 % 8.2 % 7.2 % (03/11/16 4:54 AM) (03/10/16 2:06 AM) (03/09/16 2:56 AM) Eosinophils [0.0-4.0 1.4 % 1.1 % 1.1 % %] (03/11/16 4:54 AM) (03/10/16 2:06 AM) (03/09/16 2:56 AM) Basophils [0.0-1.0 %] 1.0 % 1.0 % 1.0 % (03/11/16 4:54 AM) (03/10/16 2:06 AM) (03/09/16 2:56 AM) Segs-Bands # [1.5-8.1 9.6 K/CMM 10.3 K/CMM 11.6 K/CMM K/CMM] *HI* *HI* *HI* (03/11/16 4:54 AM) (03/10/16 2:06 AM) (03/09/16 2:56 AM) Lymphocytes # [1.0-5.5 3.3 K/CMM 3.9 K/CMM 3.4 K/CMM K/CMM] (03/11/16 4:54 AM) (03/10/16 2:06 AM) (03/09/16 2:56 AM) Monocytes # [0.0-0.8 0.9 K/CMM 1.3 K/CMM 1.2 K/CMM K/CMM] *HI* *HI* *HI* (03/11/16 4:54 AM) (03/10/16 2:06 AM) (03/09/16 2:56 AM) Eosinophils # [0.0-0.5 0.2 K/CMM 0.2 K/CMM 0.2 K/CMM K/CMM] (03/11/16 4:54 AM) (03/10/16 2:06 AM) (03/09/16 2:56 AM) Basophils # [0.0-0.2 0.1 K/CMM 0.2 K/CMM 0.2 K/CMM K/CMM] (03/11/16 4:54 AM) (03/10/16 2:06 AM) (03/09/16 2:56 AM) PT [12.0-14.7 seconds] 14.3 seconds 14.5 seconds 15.8 seconds (03/08/16 12:20 AM) (03/04/16 12:31 AM) *HI* (02/27/16 12:40 AM) INR [0.85-1.17] 1.09 1.11 1.23 (03/08/16 12:20 AM) (03/04/16 12:31 AM) *HI* (02/27/16 12:40 AM) POC Activated Clotting 154 seconds Time *NA* (02/26/16 8:51 AM) PTT [22.9-35.8 27.1 seconds 28.1 seconds 25.3 seconds seconds] (03/08/16 12:20 AM) (03/04/16 12:31 AM) (02/27/16 12:40 AM) ACT (TEG) Rapid 121 seconds [86-118 seconds] *HI* (02/26/16 2:56 AM) Split Point Rapid 0.6 minutes *NA* (02/26/16 2:56 AM) R-time [5.0-10.0 3.8 minutes minutes] *LOW* (02/27/16 12:40 AM) R-time Rapid [0.4-0.7 0.8 minutes minutes] *HI* (02/26/16 2:56 AM) K-time [1.0-3.0 0.9 minutes minutes] *LOW* (02/27/16 12:40 AM) K-time Rapid [0.6-2.3 1.1 minutes minutes] (02/26/16 2:56 AM) Angle [53.0-72.0 74.3 degrees degrees] *HI* (02/27/16 12:40 AM) Angle Rapid [64-80 76 degrees degrees] (02/26/16 2:56 AM) Max Amp [50.0-70.0 mm] 69.2 mm (02/27/16 12:40 AM) Max Amplitude Rapid 68 mm [52-71 mm] (02/26/16 2:56 AM) G-value [4.5-11.0 K 11.3 K d/sc d/sc] *HI* (02/27/16 12:40 AM) G-value Rapid 10.5 K d/sc [5.0-11.6 K d/sc] (02/26/16 2:56 AM) Estimated % Lysis 0.6 % Rapid [0.0-7.5 %] (02/26/16 2:56 AM) Ly30 [0.0-7.5 %] 0.8 % (02/27/16 12:40 AM) Coag Index [-3.0-3.0] 3.5 *HI* (02/27/16 12:40 AM) TEG Interp Thrombelastograph results show shortened value of R and increased value of Angle Alpha. These findings are suggestive of enzymatic hypercoagulation. CPT:48639 *NA* (02/27/16 12:40 AM) TEG Data See Note (02/27/16 12:40 AM) BACTERIAL - SEROLOGY Most recent to oldest [Reference Range]: 1 2 3 MRSA by PCR Negative (02/27/16 8:34 AM) Immunizations Given and Recorded Vaccine Date Status Refusal Reason pneumococcal 13-valent vaccine 03/03/16 Given Procedures Procedure Date Related Diagnosis Body Site Selective catheter placement, vertebral artery, 03/04/16 unilateral, with angiography of the ipsilateral vertebral circulation and all associated radiological supervision and interpretation, includes angiography of the cervicocerebral arch, when performed Selective catheter placement, internal carotid 02/26/16 artery, unilateral, with angiography of the ipsilateral intracranial carotid circulation and all associated radiological supervision and interpretation, includes angiography of the extracranial carotid and ce Social History Social History Type Response Substance Abuse Use: None. Alcohol Current, Type Beer. Frequency: 1-2 times per month. Previous treatment: None. Alcohol use interferes with work or home: No. Drinks more than intended: No. Others hurt by drinking: No. Ready to change: No. Household alcohol concerns: No. Smoking Status Never smoker; Exposure to Tobacco Smoke None; Cigarette Smoking Last 365 Days No; Reg Smoking Cessation Counseling No Assessment and Plan Extracted from: Title: PM&R H&P Author: Jarod Curtis DO Date: 03/11/16 PM&R History and Physical Date of Admission: 03/11/16 Admitting Physician: Dr. Boom Parrish Prior documentation in the medical record was reviewed and summarized to formulate this H&P. Chief Complaint: Functional deficits d/t SAH HPI: This is a 65 year old female with PMH DM who presented with severe headache with N/V and questionable LOC on 02/24. 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 EVD was placed. She then underwent R frontotemporal craniotomy, anterior skull base resection, microdissection, and clipping with Dr. Marrero on 02/26/16. Post-operatively patient found to have L hemiplegia with small right intraparenchymal hemorrhage seen on CT. Patient was extubated and had repeat angiogram on 03/04 which showed moderate vasospasm. EVD was dc'd and patient was admitted to [facility] for acute inpatient rehabilitation. Patient reports no pain at time of exam. Reports LBM was yesterday. She reports no issues with urination, however her daughter, who was present at bedside reports she has been requiring straight cathete rization. Daughter reports patient lives in a [facility] with her and 3 sons. She reportedly was working and driving prior to injury. 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 Prior to injury she was independent with ADLs and did not require any assistive living devices. Current Functional Status: (per preadmission screen) Bathing : Total A Bed Mobility : Total A Bed Wheelchair Transfer : Total A Bladder : Total A Bowel : Total A Eating : Total A Grooming : Total A Locomotion Walk : Total A Locomotion Wheelchair : Total A Lower Body Bathing : Total A Lower Extremity Dressing : Total A Rolling-Left to Right : Total A Rolling-Right to Left : Total A Toilet Transfer : Total A Sit to Stand : Total A Supine to Sit : Total A Tub, Shower Transfer : Total A Upper Body Bathing : Total A Upper Extremity Dressing : Total A Past Medical and Surgical History: DM (diabetes mellitus) Family History: sister - DM Social History: Tobacco Details: Use: Never smoker. Tobacco smoke exposure: None. Did the Patient Smoke Cigarettes Anytime During the Last 365 Days? No. Cessation Counseling Provided? No. Medications (20) Active Scheduled Meds (8): 02/26/16 docusate 100 mg NJ Q12H 02/28/16 heparin 5,000 unit SUB-Q Q8H 03/10/16 insulin isophane (insulin isophane-NPH) 40 unit SUB-Q Q8H 03/10/16 levETIRAcetam (Keppra) 500 mg PO Q12H 03/10/16 niMODipine 60 mg NJ Q4H 02/29/16 polyethylene glycol 3350 (MiraLax) 17 gm PO Daily 02/26/16 senna 8.8 mg NJ Q12H 03/09/16 sodium chloride (sodium chloride 1 gm oral tablet) 1 gm PO Q6H Unscheduled Meds: None PRN Meds (12): 02/28/16 Dextrose 50% in Water IV (Dextrose 50% Syringe) 12.5 gm IVP PRN 02/28/16 Dextrose 50% in Water IV (Dextrose 50% Syringe) 25 gm IVP PRN 02/28/16 Insulin regular 3 unit SUB-Q Sliding Scale 02/28/16 Insulin regular 6 unit SUB-Q Sliding Scale 02/28/16 Insulin regular 9 unit SUB-Q Sliding Scale 02/28/16 Insulin regular 12 unit SUB-Q Sliding Scale 02/28/16 Insulin regular 15 unit SUB-Q Sliding Scale 02/29/16 acetaminophen (Tylenol) 650 mg PO Q4H 03/02/16 acetaminophen (Tylenol) 650 mg PO Q6H 03/01/16 albuterol (albuterol 0.083% inhalation solution) 2.49 mg NEB RQ2H 02/28/16 glucagon 1 mg IM PRN 02/26/16 sodium chloride (Saline Flush 0.9%) 10 mL IVP PRN One Time Meds: None Continuous Infusions: None Allergies (1) Active Reaction NKDA None documented Review of Systems: Constitutional: denies fevers Eyes: denies vision changes ENT: denies epistaxis CV: denies chest pain Respiratory: denies cough GI: denies nausea : denies urinary retention (however daughter reports she is requiring straight caths) MSK: denies pain Skin: denies rash Neuro: denies confusion Hem: denies abnormal bruising Vitals Tmp(F) Tmp(C) Ttype BP MAP Pulse RR SpO2 FIO2 ETCO2 03/11 12:04 98.0 36.67 oral 105/69 --- 89 18 97 --- --- 03/11 08:03 98.4 36.89 oral 106/60 --- 79 18 97 --- --- 03/11 03:35 99.5 37.50 oral 115/59 --- 75 18 96 --- --- 03/11 00:10 98.6 37.00 oral 109/63 --- 76 18 95 --- --- 03/10 21:23 ---- ---- ---- ----- --- --- 16 95 21% --- 24 Hr Tmax: 99.5F (37.50c) at 03/11 03:35 Vital Signs are the last 5 in the past 48 hours. 24 Hr Tmin: 97.7F (36.50c) at 03/10 20:25 Weights are the last 5 in 60 days, plus initial. Date Wt(kg) Wt(lb) Ht(cm) Ht(in) Method BMI BSA 03/08 84.00 184.80 Measured 03/07 85.30 187.66 Measured 03/06 83.00 182.60 Measured 03/05 83.40 183.48 Measured 03/04 84.00 184.80 Measured 02/25 (initial) 90.91 200.00 Measured 34.4 2.03 02/25 162.56 64.00 Stated 24 Hr Point of Care Glucoses 03/11 1205 Glucose POC 193 H 03/11 0009 Glucose POC 116 H Most Recent Scores: 03/11/16 Pain Intensity NRS (0-10) 0 03/11/16 Dickinson Rod Fall Score 12 03/11/16 Ronald Score 16 03/11/16 Danyel Coma Score 15 02/26/16 NIH Stroke Score 1 Lines, Tubes, and Drains: 03/10/2016 19:00 Peripheral Lines: Forearm Right 22 gauge Over the needle catheter 03/06/2016 02:00 Gastric Tubes: Nasojejunal Nostril, right 03/06/2016 02:30 Surgical Procedures: 03/04/16 16:24 DCA [id number] Primary Surgeon: Mathieu Abdullahi MD (Service: RAD) (no date) DIAGNOSTIC CEREBRAL ANGIOGRAM (primary surgeon unspecified) 02/26/16 14:43 RIGHT CRANIOTOMY FOR ANEURYSM CLIPPING WITH INTRAOPERATIVE ANGIOGRAM Primary Surgeon: Isauro Marrero MD (Service: KELLY) 02/26/16 08:00 DCA [id number] Primary Surgeon: Ji Truong MD (Service: KELLY) (no date) DIAGNOSTIC CEREBRAL ANGIOGRAM POSSIBLE COIL EMBOLIZATION [id number] (primary surgeon unspecified) Physical Exam: General: well-developed, NAD, lying in bed in 4 point restraints Eyes: sclera non-icteric, normal conjunctiva ENT: MMM, hearing grossly intact, dobhoff tube secured in place Cardiovascular: warm limbs, regular rate, + s1, s2 Respiratory: chest symmetry with respirations, non-labored respirations, cta GI: soft, not distended Skin: warm, surgical scalp wound with edges well approximated Psych: calm, cooperative Musculoskeletal: Manual Muscle Testing: testing limited by restraints but patient observed to moves all 4 extremities to command, L weaker than R Neurologic: Mental Status: awake, alert, oriented to person, hospital, and year, unable to name president + slowed processing and distractibility noted on exam, confused bag builder: eyes track to examiner, eomi Reflexes: R, L Bicep 2/4, 2/4 Patella 2/4, 2/4 Maura Neg. Neg. 24hr Labs 03/11 1205 Glucose POC 193 H 03/11 0454 Ca Ion WB 1.00 L Ca Norm WB 1.06 Glucose Lvl 95 BUN 20 Creatinine Lvl 0.59 Sodium Lvl 137 Potassium Lvl 4.1 Chloride Lvl 104 CO2 23 L AGAP 14.1 Calcium Lvl 8.6 eGFR 97 Magnesium Lvl 2.4 Phosphorus 4.0 WBC 14.1 H RBC 3.59 L Hgb 11.5 L Hct 33.8 L MCV 94.2 MCH 32.2 H MCHC 34.2 RDW 14.3 Platelet 359 MPV 8.3 Segs 67.9 Monocytes 6.4 Lymphocytes 23.3 Eosinophils 1.4 Basophils 1.0 Segs-Bands # 9.6 H Lymphocytes # 3.3 Monocytes # 0.9 H Eosinophils # 0.2 Basophils # 0.1 03/11 0009 Glucose POC 116 H Pertinent Imaging: Patient's diagnostic imaging and reports have been personally reviewed and visualized. 03/08 CT Brain showed interval decrease in attenuation of R frontal hemorrhage and interval decrease in amount of subarachnoid hemorrhage. 02/25 CTA Head showed Bilateral PCOM aneurysms with findings suggestive of rupture of R sided aneurysm. Impression: This is a 65 yo F w SAH d/t ruptured R PCOM aneurysm s/p R frontotemporal craniotomy, anterior skull base resection, microdissection, and clipping with Dr. Marrero on 02/26/16. Impairments: SAH Bilateral PCOM Aneurysms Nondominant Hemiplegia Cognitive Deficits Sleep Wake Cycle Dysfunction Agitation Dysphagia DM Constipation Post-surgical Pain Activity Limitations: Decreased mobility Decreased transfers Impairments of ability to perform ADLs Impairments of ability to perform iADLs Impairments of cognition Communication deficits Participation Restrictions: Return to work Driving Taking care of the home Recreational leisure activities Community reintegration PLAN: Rehabilitation for the above impairments -During the patient s inpatient rehabilitation stay, the patient will continue to work with physical therapy and occupational therapy. Patient will have physical therapy goals of increased independenc e with mobility and transfers, increased exercise tolerance, range of motion, strengthening and stretching. Patient will have occupational therapy goals of increased independence with ADLs, mobility and transfers. -Pt will require 24 hour nursing and PM&R physician supervision as well as PT/ OT/ASSOCIATE PRODUCT INTEGRITY ENGINEER evaluation and treatment to achieve these goals. SAH Bilateral PCOM Aneurysms Nondominant Hemiplegia - keppra 500 q12h - will clarify duration of therapy - nimodipine - patient will benefit from physical and occupational therapies to improve independence with ADLs Cognitive Deficits - patient will benefit from ASSOCIATE PRODUCT INTEGRITY ENGINEER and Neuropsych Sleep Wake Cycle Dysfunction - per daughter, patient has not been sleeping most nights. Will start melatonin and monitor sleep wake cycle. Agitation - will d/c restraints on admission and start patient on buspar for agitation. daughter plans to stay with her overnight. Will trial telesitter and monitor. Dysphagia - passed FEES for regular solids and nectar thick liquids on 03/11. - will benefit from ASSOCIATE PRODUCT INTEGRITY ENGINEER - will consult nutrition DM - NPH 40u q8h and SSI Constipation - docusate and miralax Post-surgical Pain - tylenol Urinary Retention - PVR with ICP for retention for >250cc Skin - q2h turns to prevent skin breakdown, daily skin checks DVT ppx - continue Lovenox Disposition: -Pending team rounds -Prognosis is good -Estimated length of stay is 2-4 weeks Jarod Curtis DO, PGY-2 Physical Medicine and Rehabilitation Attending Physician Attestation: I performed a history and physical examination of the patient and discussed the management with the resident. I reviewed the note and agree with the documented findings and plan of care with any excepti ons above. There are no changes in the patient's status since preadmission screening and patient's condition on admission supports the medical necessity of admission for rehab. It is safe to proceed wi th patient's therapy program. All lab data were reviewed including labs, imaging,meds. Please see care 4 for details. Hospital records reviewed and sumarized above. Initial Plan of Care: Patient will require 24 hour rehabilitation nursing for management of bowel, bladder, skin integrity, medication management, safety measures and preventing risk factors and complications. Patient will require a minimum of 3 hours of therapy a day for 5 of 7 days a week throughout the hospitalization, including at least the followin.5-2 hours Physical Therapy, 1.5-2 hours Occupational Therapy and 1 hour Speech-Language pathology, Neuropsychology. These disciplines will be needed in order to improve the patient's impairments in mobility, transfers, activities of daily living, swallow ing and cognition and evaluation of durable medical equipment if needed at discharge. Social Work and Case Management will be consulted to assist with discharge planning and family coping strategies. Prognosis: Good Estimated Length of Stay: 10-14 days Discharge Disposition: home with family
--- OUTSIDE RECORDS SUMMARY | 2017-08-24 11:30 | XMS REPORT | Summary of Care ---
:1950 Author Organization [facility] Address [address], [place] [address]- Encounter HQ Bola_ariella(FIN) [id number] Date(s): 03/11/16 - 03/29/16 [facility] [address] [place] [id number] [place] Discharge Disposition: Home or Self Care Attending Physician: Boom Charles MD Admitting Physician: Boom Charles MD Vital Signs Most recent to oldest 1 2 3 [Reference Range]: Height 162.56 cm 162.56 cm (03/11/16 10:00 PM) (03/11/16 9:52 PM) Current Weight 75.085 kg (03/17/16 5:26 AM) Temperature Oral [96.4-99.1 97.9 DegF 98.5 DegF 98.3 DegF DegF] (03/29/16 7:26 AM) (03/28/16 11:10 PM) (03/28/16 2:00 PM) Blood Pressure [90-140/60-90 99/57 mmHg 94/62 mmHg 134/71 mmHg mmHg] (03/29/16 7:26 AM) (03/28/16 11:10 PM) (03/28/16 2:00 PM) Respiratory Rate [14-20 16 BRMIN 18 BRMIN 18 BRMIN BRMIN] (03/28/16 11:10 PM) (03/28/16 2:00 PM) (03/28/16 6:35 AM) Peripheral Pulse Rate [60-100 71 bpm 69 bpm 66 bpm bpm] (03/29/16 7:26 AM) (03/28/16 11:10 PM) (03/28/16 2:00 PM) Weight 75 kg 75 kg (03/11/16 10:00 PM) (03/11/16 9:52 PM) Body Mass Index 28.38 m2 28.38 m2 (03/11/16 10:00 PM) (03/11/16 9:52 PM) Problem List Condition Effective Dates Status Health Status Informant Cerebral edema(Confirmed) Active DM (diabetes mellitus)(Confirmed) Resolved 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(Confirmed) SAH (subarachnoid Active hemorrhage)(Confirmed) Hyperosmolality and Active hypernatremia(Confirmed) HTN (hypertension)(Confirmed) Active Obstructive hydrocephalus(Confirmed) Active Acute and chronic respiratory Active failure with hypoxia(Confirmed) Intracerebral hemorrhage, Active intraventricular(Confirmed) Allergies, Adverse Reactions, Alerts Substance Reaction Severity Status NKDA Active Medications acetaminophen 650 mg, PO, Q6H, PRN Pain Score 1-5, 0 Refill(s) Start Date: 03/28/16 Stop Date: 04/27/16 Status: OrderedBenadryl Maximum Strength 2% topical cream 1 appl, Route: TOP, QID, Drug form: CRM, PRN as needed for itching, Start date: 03/24/16 12:08:00 POURER OFF, Duration: 30 day, Stop date: 04/23/16 12:07:00 CDT Start Date: 03/24/16 Stop Date: 03/29/16 Status: Discontinuedbisacodyl 10 mg, 1 supp, Route: CO, Drug form: SUPP, Daily, Dosing Weight 75, kg, PRN Constipation, Start date: 03/21/16 16:49:00 POURER OFF, Duration: 7 day, Stop date: 16:48:00 POURER OFF Notes: (Same As: Dulcolax, Bisco-Lax) Start Date: 03/21/16 Stop Date: 03/28/16 Status: CompletedBuSpar 5 mg, 1 tab, Route: PO, Drug form: TAB, TID, Dosing Weight 90.009, kg, Start date: 03/12/16 8:00:00 POURER OFF, Stop date: 04/10/16 17:00:00 POURER OFF Notes: (Same As: BuSpar) Start Date: 03/12/16 Stop Date: 03/18/16 Status: DiscontinuedCalmoseptine topical ointment 1 appl, Route: TOP, BID, Drug form: OINT, PRN Diaper Rash, Start date: 03/18/16 16:34:00 POURER OFF, Duration: 30 day, Stop date: 04/17/16 16:33:00 POURER OFF Notes: (Same as: Calmoseptine) Start Date: 03/18/16 Stop Date: 03/29/16 Status: DiscontinuedCipro 500 mg, 1 tab, Route: PO, Drug form: TAB, [id number], Dosing Weight 75, kg, Start date: 03/14/16 11:00:00 POURER OFF, Duration: 30 day, Stop date: 04/12/16 23:00:00 POURER OFF Notes: May interfere w/enteral feedings - Take 1 hr before or 2 hrs after antacids, dairy pdt & minerals. On empty stomach. Start Date: 03/14/16 Stop Date: 03/21/16 Status: Voided With ResultsDextrose 50% Syringe 25 mL, Route: IVP, Dosing Weight 75, kg, PRN, PRN Blood Glucose Results, Start date: 03/13/16 10:07:00 POURER OFF, Duration: 30 day, Stop date: 04/12/16 10:06:00 POURER OFF Start Date: 03/13/16 Stop Date: 03/13/16 Status: DeletedDextrose 50% Syringe 50 mL, Route: IVP, Dosing Weight 75, kg, PRN, PRN Blood Glucose Results, Start date: 03/13/16 10:07:00 POURER OFF, Duration: 30 day, Stop date: 04/12/16 10:06:00 POURER OFF Start Date: 03/13/16 Stop Date: 03/13/16 Status: DeletedDextrose 50% Syringe 25 gm, 50 mL, Route: IVP, Drug Form: INJ, Dosing Weight 75, kg, PRN, PRN Blood Glucose Results, Start date: 03/12/16 15:24:00 POURER OFF, Duration: 30 day, Stop date : 04/11/16 15:23:00 POURER OFF Start Date: 03/12/16 Stop Date: 03/29/16 Status: DiscontinuedDextrose 50% Syringe 12.5 gm, 25 mL, Route: IVP, Drug Form: INJ, Dosing Weight 75, kg, PRN, PRN Blood Glucose Results, Start date: 03/12/16 15:24:00 POURER OFF, Duration: 30 day, Stop date: 04/11/16 15:23:00 POURER OFF Start Date: 03/12/16 Stop Date: 03/29/16 Status: DiscontinuedDextrose 50% Syringe 25 gm, 50 mL, Route: IVP, Drug Form: INJ, Dosing Weight 75, kg, PRN, PRN Blood Glucose Results, Start date: 03/12/16 3:15:00 POURER OFF, Duration: 30 day, Stop date: 04/11/16 3:14:00 POURER OFF Start Date: 03/12/16 Stop Date: 03/12/16 Status: DiscontinuedDextrose 50% Syringe 12.5 gm, 25 mL, Route: IVP, Drug Form: INJ, Dosing Weight 75, kg, PRN, PRN Blood Glucose Results, Start date: 03/12/16 3:15:00 POURER OFF, Duration: 30 day, Stop date: 04/11/16 3:14:00 POURER OFF Start Date: 03/12/16 Stop Date: 03/12/16 Status: DiscontinuedDextrose 50% Syringe 12.5 gm, 25 mL, Route: IVP, Drug Form: INJ, Dosing Weight 75, kg, PRN, PRN Blood Glucose Results, Start date: 03/18/16 12:27:00 POURER OFF, Duration: 30 day, Stop date: 04/17/16 12:26:00 POURER OFF Start Date: 03/18/16 Stop Date: 03/29/16 Status: DiscontinuedDextrose 50% Syringe 25 gm, 50 mL, Route: IVP, Drug Form: INJ, Dosing Weight 75, kg, PRN, PRN Blood Glucose Results, Start date: 03/18/16 12:27:00 POURER OFF, Duration: 30 day, Stop date : 04/17/16 12:26:00 POURER OFF Start Date: 03/18/16 Stop Date: 03/29/16 Status: Discontinueddocusate 100 mg, 1 cap, Route: PO, Drug form: CAP, BID, Dosing Weight 90.009, kg, Start date: 03/12/16 8:00:00 POURER OFF, Duration: 30 day, Stop date: 04/10/16 20:00:00 POURER OFF Notes: (Same as: Colace) (Do Not Crush) Start Date: 03/12/16 Stop Date: 03/29/16 Status: Discontinuedemollients, topical lotion 1 appl, Route: TOP, Drug Form: LOT, Dosing Weight 75, kg, BID, Start date: 03/21 20:00:00 POURER OFF, Duration: 30 day, Stop date: 04/20/16 8:00:00 POURER OFF Notes: (Same as: Cetaphil Lotion) Start Date: 03/21/16 Stop Date: 03/29/16 Status: DiscontinuedEucerin Plus topical lotion 1 appl, Route: TOP, Drug Form: LOT, Dosing Weight 75, kg, BID, PRN as needed for dry skin, Start date: 03/24/16 12:08:00 POURER OFF, Duration: 30 day, Stop date: 12:07:00 CDT Notes: (Same as: Cetaphil Lotion) Start Date: 03/24/16 Stop Date: 03/29/16 Status: Discontinuedglucagon 1 mg, Route: IM, PRN, Dosing Weight 75, kg, PRN Blood Glucose Results, Start date: 03/13/16 10:07:00CST, Duration: 30 day, Stop date: 04/12/16 10:06:00 POURER OFF Start Date: 03/13/16 Stop Date: 03/13/16 Status: Deletedglucagon 1 mg, Route: IM, Drug form: PDR/INJ, PRN, Dosing Weight 75, kg, PRN Blood Glucose Results, Start date: 03/12/16 15:24:00 POURER OFF, Duration: 30 day, Stop date : 04/11/16 15:23:00 POURER OFF Start Date: 03/12/16 Stop Date: 03/29/16 Status: Discontinuedglucagon 1 mg, Route: IM, Drug form: PDR/INJ, PRN, Dosing Weight 75, kg, PRN Blood Glucose Results, Start date: 03/12/16 3:15:00 POURER OFF, Duration: 30 day, Stop date: 04/11/16 3:14:00 POURER OFF Start Date: 03/12/16 Stop Date: 03/12/16 Status: Discontinuedglucagon 1 mg, Route: IM, Drug form: PDR/INJ, PRN, Dosing Weight 75, kg, PRN Blood Glucose Results, Start date: 03/18/16 12:27:00 POURER OFF, Duration: 30 day, Stop date : 04/17/16 12:26:00 POURER OFF Start Date: 03/18/16 Stop Date: 03/29/16 Status: Discontinuedheparin 5,000 unit, 1 mL, Route: SUB-Q, Drug form: INJ, Q8H, Dosing Weight 90.009, kg, Start date: 03/12/16 0:00:00 POURER OFF, Duration: 30 day, Stop date: 04/10/16 16:00: 00 POURER OFF Notes: porcine heparin Start Date: 03/12/16 Stop Date: 03/29/16 Status: Discontinuedinsulin aspart 4 unit, 0.04 mL, Route: SUB-Q, Drug form: SOLN, ONCE, Dosing Weight 75, kg, Start date: 03/14/16 22:46:00 POURER OFF, Stop date: 03/14/16 22:46:00 POURER OFF Notes: Roll in palms of hands gently; Do not shake vigorously. (Same as: [employer]"single patient use only"WASTE: F/P - Black; E - Municipal Trash Bin Stable for 28 days at room temperature.Expires in days from Date Start Date: 03/14/16 Stop Date: 03/15/16 Status: Completedinsulin aspart 10 unit, 0.1 mL, Route: SUB-Q, Drug form: SOLN, TID-Before Meals, Dosing Weight 75, kg, PRN Blood Glucose Results, Start date: 03/12/16 15:24:00 POURER OFF, Duration: 30 day, Stop date: 04/11/16 15:23:00 POURER OFF Notes: Roll in palms of hands gently; Do not shake vigorously. (Same as: [employer]"single patient use only"WASTE: F/P - Black; E - Municipal Trash Bin Stable for 28 days at room temperature.Expires in days from Date Start Date: 03/12/16 Stop Date: 03/18/16 Status: Discontinuedinsulin aspart 8 unit, 0.08 mL, Route: SUB-Q, Drug form: SOLN, TID-Before Meals, Dosing Weight 75, kg, PRN Blood Glucose Results, Start date: 03/12/16 15:24:00 POURER OFF, Duration: 30 day, Stop date: 04/11/16 15:23:00 POURER OFF Notes: Roll in palms of hands gently; Do not shake vigorously. (Same as: NovoLOG)"single patient use only"WASTE: F/P - Black; E - [employer] Trash Bin Stable for 28 days at room temperature.Expires in days from Date Start Date: 03/12/16 Stop Date: 03/18/16 Status: Discontinuedinsulin aspart 6 unit, 0.06 mL, Route: SUB-Q, Drug form: SOLN, TID-Before Meals, Dosing Weight 75, kg, PRN Blood Glucose Results, Start date: 03/12/16 15:24:00 POURER OFF, Duration: 30 day, Stop date: 04/11/16 15:23:00 POURER OFF Notes: Roll in palms of hands gently; Do not shake vigorously. (Same as: NovoLOG)"single patient use only"WASTE: F/P - Black; E - [employer] Trash Bin Stable for 28 days at room temperature.Expires in days from Date Start Date: 03/12/16 Stop Date: 03/18/16 Status: Discontinuedinsulin aspart 4 unit, 0.04 mL, Route: SUB-Q, Drug form: SOLN, TID-Before Meals, Dosing Weight 75, kg, PRN Blood Glucose Results, Start date: 03/12/16 15:24:00 POURER OFF, Duration: 30 day, Stop date: 04/11/16 15:23:00 POURER OFF Notes: Roll in palms of hands gently; Do not shake vigorously. (Same as: NovoLOG)"single patient use only"WASTE: F/P - Black; E - [employer] Trash Bin Stable for 28 days at room temperature.Expires in days from Date Start Date: 03/12/16 Stop Date: 03/18/16 Status: Discontinuedinsulin aspart 2 unit, 0.02 mL, Route: SUB-Q, Drug form: SOLN, TID-Before Meals, Dosing Weight 75, kg, PRN Blood Glucose Results, Start date: 03/12/16 15:24:00 POURER OFF, Duration: 30 day, Stop date: 04/11/16 15:23:00 POURER OFF Notes: Roll in palms of hands gently; Do not shake vigorously. (Same as: [employer]"single patient use only"WASTE: F/P - Black; E - [employer] Trash Bin Stable for 28 days at room temperature.Expires in days from Date Start Date: 03/12/16 Stop Date: 03/18/16 Status: Discontinuedinsulin aspart 4 unit, 0.04 mL, Route: SUB-Q, Drug form: SOLN, TID-Before Meals, Dosing Weight 75, kg, PRN Blood Glucose Results, Start date: 03/12/16 3:15:00 POURER OFF, Duration: 30 day, Stop date: 04/11/16 3:14:00 POURER OFF Notes: Roll in palms of hands gently; Do not shake vigorously. (Same as: [employer]"single patient use only"WASTE: F/P - Black; E - [employer] Trash Bin Stable for 28 days at room temperature.Expires in days from Date Start Date: 03/12/16 Stop Date: 03/12/16 Status: Discontinuedinsulin aspart 3 unit, 0.03 mL, Route: SUB-Q, Drug form: SOLN, TID-Before Meals, Dosing Weight 75, kg, PRN Blood Glucose Results, Start date: 03/12/16 3:15:00 POURER OFF, Duration: 30 day, Stop date: 04/11/16 3:14:00 POURER OFF Notes: Roll in palms of hands gently; Do not shake vigorously. (Same as: [employer]"single patient use only"WASTE: F/P - Black; E - Municipal Trash Bin Stable for 28 days at room temperature.Expires in days from Date Start Date: 03/12/16 Stop Date: 03/12/16 Status: Discontinuedinsulin aspart 2 unit, 0.02 mL, Route: SUB-Q, Drug form: SOLN, TID-Before Meals, Dosing Weight 75, kg, PRN Blood Glucose Results, Start date: 03/12/16 3:15:00 POURER OFF, Duration: 30 day, Stop date: 04/11/16 3:14:00 POURER OFF Notes: Roll in palms of hands gently; Do not shake vigorously. (Same as: NovoLOG)"single patient use only"WASTE: F/P - Black; E - [employer] Trash Bin Stable for 28 days at room temperature.Expires in days from Date Start Date: 03/12/16 Stop Date: 03/12/16 Status: Discontinuedinsulin aspart 1 unit, 0.01 mL, Route: SUB-Q, Drug form: SOLN, TID-Before Meals, Dosing Weight 75, kg, PRN Blood Glucose Results, Start date: 03/12/16 3:15:00 POURER OFF, Duration: 30 day, Stop date: 04/11/16 3:14:00 POURER OFF Notes: Roll in palms of hands gently; Do not shake vigorously. (Same as: NovoLOG)"single patient use only"WASTE: F/P - Black; E - Municipal Trash Bin Stable for 28 days at room temperature.Expires in days from Date Start Date: 03/12/16 Stop Date: 03/12/16 Status: Discontinuedinsulin aspart 5 unit, 0.05 mL, Route: SUB-Q, Drug form: SOLN, TID-Before Meals, Dosing Weight 75, kg, PRN Blood Glucose Results, Start date: 03/12/16 3:15:00 POURER OFF, Duration: 30 day, Stop date: 04/11/16 3:14:00 POURER OFF Notes: Roll in palms of hands gently; Do not shake vigorously. (Same as: NovoLOG)"single patient use only"WASTE: F/P - Black; E - Municipal Trash Bin Stable for 28 days at room temperature.Expires in days from Date Start Date: 03/12/16 Stop Date: 03/12/16 Status: Discontinuedinsulin aspart 2 unit, 0.02 mL, Route: SUB-Q, Drug form: SOLN, Bedtime, Dosing Weight 75, kg, PRN Blood Glucose Results, Start date: 03/18/16 12:27:00 POURER OFF, Duration: 30 day, Stop date: 04/17/16 12:26:00 POURER OFF Notes: Roll in palms of hands gently; Do not shake vigorously. (Same as: NovoLOG)"single patient use only"WASTE: F/P - Black; E - Municipal Trash Bin Stable for 28 days at room temperature.Expires in days from Date Start Date: 03/18/16 Stop Date: 03/29/16 Status: Discontinuedinsulin aspart 1 unit, 0.01 mL, Route: SUB-Q, Drug form: SOLN, Bedtime, Dosing Weight 75, kg, PRN Blood Glucose Results, Start date: 03/18/16 12:27:00 POURER OFF, Duration: 30 day, Stop date: 04/17/16 12:26:00 POURER OFF Notes: Roll in palms of hands gently; Do not shake vigorously. (Same as: NovoLOG)"single patient use only"WASTE: F/P - Black; E - Municipal Trash Bin Stable for 28 days at room temperature.Expires in days from Date Start Date: 03/18/16 Stop Date: 03/29/16 Status: Discontinuedinsulin aspart 4 unit, 0.04 mL, Route: SUB-Q, Drug form: SOLN, Bedtime, Dosing Weight 75, kg, PRN Blood Glucose Results, Start date: 03/18/16 12:27:00 POURER OFF, Duration: 30 day, Stop date: 04/17/16 12:26:00 POURER OFF Notes: Roll in palms of hands gently; Do not shake vigorously. (Same as: NovoLOG)"single patient use only"WASTE: F/P - Black; E - Municipal Trash Bin Stable for 28 days at room temperature.Expires in days from Date Start Date: 03/18/16 Stop Date: 03/29/16 Status: Discontinuedinsulin aspart 3 unit, 0.03 mL, Route: SUB-Q, Drug form: SOLN, Bedtime, Dosing Weight 75, kg, PRN Blood Glucose Results, Start date: 03/18/16 12:27:00 POURER OFF, Duration: 30 day, Stop date: 04/17/16 12:26:00 POURER OFF Notes: Roll in palms of hands gently; Do not shake vigorously. (Same as: NovoLOG)"single patient use only"WASTE: F/P - Black; E - Municipal Trash Bin Stable for 28 days at room temperature.Expires in days from Date Start Date: 03/18/16 Stop Date: 03/29/16 Status: Discontinuedinsulin aspart 3 unit, 0.03 mL, Route: SUB-Q, Drug form: SOLN, TID-Before Meals, Dosing Weight 75, kg, PRN Blood Glucose Results, Start date: 03/18/16 12:27:00 POURER OFF, Duration: 30 day, Stop date: 04/17/16 12:26:00 POURER OFF Notes: Roll in palms of hands gently; Do not shake vigorously. (Same as: NovoLOG)"single patient use only"WASTE: F/P - Black; E - Municipal Trash Bin Stable for 28 days at room temperature.Expires in days from Date Start Date: 03/18/16 Stop Date: 03/29/16 Status: Discontinuedinsulin aspart 15 unit, 0.15 mL, Route: SUB-Q, Drug form: SOLN, TID-Before Meals, Dosing Weight 75, kg, PRN Blood Glucose Results, Start date: 03/18/16 12:27:00 POURER OFF, Duration: 30 day, Stop date: 04/17/16 12:26:00 POURER OFF Notes: Roll in palms of hands gently; Do not shake vigorously. (Same as: NovoLOG)"single patient use only"WASTE: F/P - Black; E - Municipal Trash Bin Stable for 28 days at room temperature.Expires in days from Date Start Date: 03/18/16 Stop Date: 03/29/16 Status: Discontinuedinsulin aspart 12 unit, 0.12 mL, Route: SUB-Q, Drug form: SOLN, TID-Before Meals, Dosing Weight 75, kg, PRN Blood Glucose Results, Start date: 03/18/16 12:27:00 POURER OFF, Duration: 30 day, Stop date: 04/17/16 12:26:00 POURER OFF Notes: Roll in palms of hands gently; Do not shake vigorously. (Same as: NovoLOG)"single patient use only"WASTE: F/P - Black; E - Municipal Trash Bin Stable for 28 days at room temperature.Expires in days from Date Start Date: 03/18/16 Stop Date: 03/29/16 Status: Discontinuedinsulin aspart 9 unit, 0.09 mL, Route: SUB-Q, Drug form: SOLN, TID-Before Meals, Dosing Weight 75, kg, PRN Blood Glucose Results, Start date: 03/18/16 12:27:00 POURER OFF, Duration: 30 day, Stop date: 04/17/16 12:26:00 POURER OFF Notes: Roll in palms of hands gently; Do not shake vigorously. (Same as: NovoLOG)"single patient use only"WASTE: F/P - Black; E - Municipal Trash Bin Stable for 28 days at room temperature.Expires in days from Date Start Date: 03/18/16 Stop Date: 03/29/16 Status: Discontinuedinsulin aspart 6 unit, 0.06 mL, Route: SUB-Q, Drug form: SOLN, TID-Before Meals, Dosing Weight 75, kg, PRN Blood Glucose Results, Start date: 03/18/16 12:27:00 POURER OFF, Duration: 30 day, Stop date: 04/17/16 12:26:00 POURER OFF Notes: Roll in palms of hands gently; Do not shake vigorously. (Same as: NovoLOG)"single patient use only"WASTE: F/P - Black; E - Municipal Trash Bin Stable for 28 days at room temperature.Expires in days from Date Start Date: 03/18/16 Stop Date: 03/29/16 Status: Discontinuedinsulin aspart 4 unit, Route: SUB-Q, ONCE, Dosing Weight 75, kg, Start date: 03/15/16 22:18:00 POURER OFF, Stop date: 03/15/16 22:18:00 POURER OFF Start Date: 03/15/16 Stop Date: 03/15/16 Status: Completedinsulin glargine 15 unit, 0.15 mL, Route: SUB-Q, Drug form: SOLN, Daily, Dosing Weight 75, kg, Start date: 03/13/16 11:30:00 POURER OFF, Stop date: 03/18/16 23:00:00 POURER OFF Notes: Same as: Lantus)Do not hold insulin without contacting prescriberWASTE: F /P - Black; E - Municipal Trash Bin Start Date: 03/13/16 Stop Date: 03/18/16 Status: Completedinsulin isophane-NPH 40 unit, 0.4 mL, Route: SUB-Q, Drug form: INJ, Q8H, Dosing Weight 90.009, kg, Start date: 03/12/16 8:00:00 POURER OFF, Duration: 30 day, Stop date: 04/11/16 0:00:00 POURER OFF Notes: Roll in palms of hands gently; Do not shake vigorously. (Same as: Humulin N)Do not hold insulin without contacting prescriberWASTE: F/P - Black; E - Municipal Trash Bin Stable for 28 days at room temperatureExpires in ____ _ days from Date Start Date: 03/12/16 Stop Date: 03/13/16 Status: DiscontinuedInsulin regular 3 unit, Route: SUB-Q, TID-Before Meals, Dosing Weight 75, kg, Start date: 11:30:00 POURER OFF, Duration: 30 day, Stop date: 04/12/16 6:30:00 POURER OFF Start Date: 03/13/16 Stop Date: 03/13/16 Status: DeletedKeppra 500 mg, 1 tab, Route: PO, Drug form: TAB, Q12H, Dosing Weight 90.009, kg, Start date: 03/12/16 9:00:00 POURER OFF, Duration: 30 day, Stop date: 04/10/16 21:00:00 POURER OFF Notes: (Same as:Keppra) Start Date: 03/12/16 Stop Date: 03/13/16 Status: Discontinuedmagnesium citrate 1.745 g/30 mL oral liquid 150 ml, Route: PO, Drug Form: LIQ, Dosing Weight 75, kg, Daily, PRN Constipation , Start date: 03/21/16 16:49:00 POURER OFF, Duration: 7 day, Stop date: 03/28/16 16:48: 00 POURER OFF Notes: (Same as: Citrate of Magnesia)Concentration: 1.745 gm / 30 mL Start Date: 03/21/16 Stop Date: 03/28/16 Status: Completedmelatonin 3 mg oral tablet 3 mg, 1 tab, Route: PO, Drug Form: TAB, Dosing Weight 90.009, kg, Bedtime, Start date: 03/12/16 21:00:00 POURER OFF, Duration: 30 day, Stop date: 04/10/16 21:00: 00 POURER OFF Notes: (Same as: Melatonin) Start Date: 03/12/16 Stop Date: 03/13/16 Status: Voided With Resultsmelatonin 3 mg oral tablet 6 mg, 2 tab, Route: PO, Drug Form: TAB, Dosing Weight 75, kg, Bedtime, Start date: 03/13/16 21:00:00CST, Stop date: 04/11/16 21:00:00 POURER OFF Notes: (Same as: Melatonin) Start Date: 03/13/16 Stop Date: 03/29/16 Status: DiscontinuedmetFORMIN 500 mg, 1 tab, Route: PO, Drug form: TAB, Breakfast, Dosing Weight 75, kg, Start date: 03/19/16 7:00:00 POURER OFF, Duration: 30 day, Stop date: 04/17/16 7:00:00 POURER OFF Notes: (Same as: Glucophage) Take with meal Start Date: 03/19/16 Stop Date: 03/20/16 Status: DiscontinuedmetFORMIN 1,000 mg, 2 tab, Route: PO, Drug form: TAB, BID, Dosing Weight 75, kg, Start date: 03/20/16 20:00:00CST, Stop date: 04/19/16 8:00:00 POURER OFF Notes: (Same as: Glucophage) Take with meal Start Date: 03/20/16 Stop Date: 03/29/16 Status: DiscontinuedmetFORMIN 1000 mg oral tablet 1,000 mg=1 tab, PO, BID, # 60 tab, 0 Refill(s) Start Date: 03/28/16 Stop Date: 04/27/16 Status: OrderedMilk of Magnesia 30 ml, Route: PO, Drug Form: SUSP, Dosing Weight 75, kg, ONCE, Start date: 03/21 10:24:00 POURER OFF, Stop date: 03/21/16 10:24:00 POURER OFF Notes: (Same as: Milk of Magnesia, MOM) Start Date: 03/21/16 Stop Date: 03/21/16 Status: Completedmineral oil 30 ml, Route: PO, Drug Form: LIQ, Dosing Weight 75, kg, ONCE, Start date: 10:24:00 POURER OFF, Stop date: 03/21/16 10:24:00 POURER OFF Start Date: 03/21/16 Stop Date: 03/21/16 Status: CompletedMiraLax 17 gm, 1 pkt, Route: PO, Drug form: PWDR, Daily, Dosing Weight 90.009, kg, Start date: 03/12/16 8:00:00 POURER OFF, Duration: 30 day, Stop date: 04/10/16 8:00:00 POURER OFF Notes: Dissolve in 8 oz of water or juice.(Same as: Miralax) Start Date: 03/12/16 Stop Date: 03/29/16 Status: DiscontinuedniMODipine 60 mg, 2 mL, Route: PO, Drug form: SUSP, Q8H, Dosing Weight 90.009, kg, Start date: 03/20/16 16:00:00 POURER OFF, Duration: 30 day, Stop date: 04/19/16 8:00:00 POURER OFF Notes: (Same as Nimodipine oral suspension 30mg/ml)Instill dose into NG tube and then flush with 30ml of NS Start Date: 03/20/16 Stop Date: 03/22/16 Status: DiscontinuedniMODipine 30 mg, 1 mL, Route: PO, Drug form: SUSP, Q12H, Dosing Weight 90.009, kg, Start date: 03/22/16 21:00:00 POURER OFF, Duration: 30 day, Stop date: 04/21/16 9:00:00 CDT Notes: (Same as Nimodipine oral suspension 30mg/ml)Instill dose into NG tube and then flush with 30ml of NS Start Date: 03/22/16 Stop Date: 03/26/16 Status: DiscontinuedniMODipine 60 mg, 2 mL, Route: PO, Drug form: SUSP, Q4H, Dosing Weight 90.009, kg, Start date: 03/12/16 0:00:00CST, Duration: 30 day, Stop date: 04/10/16 20:00:00 POURER OFF Notes: (Same as Nimodipine oral suspension 30mg/ml)Instill dose into NG tube and then flush with 30ml of NS Start Date: 03/12/16 Stop Date: 03/20/16 Status: DiscontinuedNovoLOG FlexPen 5 unit, 0.05 mL, Route: SUB-Q, Drug form: SOLN, TID-Meals, Start date: 03/13/16 12:00:00 POURER OFF, Stop date: 03/18/16 23:00:00 POURER OFF Notes: Roll in palms of hands gently; Do not shake vigorously. (Same as: NovoLOG)"single patient use only"WASTE: F/P - Black; E - Municipal Trash Bin Stable for 28 days at room temperature.Expires in days from Date Start Date: 03/13/16 Stop Date: 03/18/16 Status: Completedpolyethylene glycol 3350 oral powder for reconstitution 17 gm, PO, Daily, X 30 day, # 527 gm, 0 Refill(s) Start Date: 03/28/16 Stop Date: 04/27/16 Status: OrderedSaline Flush 0.9% 10 ml, Route: IVP, Drug Form: INJ, Dosing Weight 90.009, kg, PRN, PRN Line Flush , Start date: 03/11/16 21:52:00 POURER OFF, Duration: 30 day, Stop date: 04/10/16 21:51 :00 POURER OFF Notes: (Same as: BD Posiflush) Start Date: 03/11/16 Stop Date: 03/29/16 Status: DiscontinuedSaline Flush 0.9% 10 ml, Route: IVP, Drug Form: INJ, Dosing Weight 90.009, kg, Q12H, Start date: 03/12/16 9:00:00 POURER OFF,Duration: 30 day, Stop date: 04/10/16 21:00:00 POURER OFF Notes: (Same as: BD Posiflush) Start Date: 03/12/16 Stop Date: 03/29/16 Status: Discontinuedsenna 8.6 mg, 1 tab, Route: PO, Drug Form: TAB, Dosing Weight 90.009, kg, QNoon, Start date: 03/12/16 12:00:00 POURER OFF, Duration: 30 day, Stop date: 04/10/16 12:00: 00 POURER OFF Notes: (Same as: Senokot) Start Date: 03/12/16 Stop Date: 03/29/16 Status: DiscontinuedSEROquel 25 mg, 1 tab, Route: PO, Drug form: TAB, BID, Dosing Weight 90.009, kg, PRN Agitation, Start date: 03/11/16 21:52:00 POURER OFF, Duration: 30 day, Stop date: 04/10 21:51:00 POURER OFF Notes: (Same as: SEROquel) Start Date: 03/11/16 Stop Date: 03/29/16 Status: DiscontinuedSMOG Enema 900 mL, Route: CO, Drug Form: PEPITO, Dosing Weight 75, kg, Daily, PRN Constipation, Start date: 03/21/16 16:50:00 POURER OFF, Duration: 7 day, Stop date: 16:49:00 POURER OFF Notes: Non formulary itemsaline for irrigation (1L bottle) 100 mL, mineral oil 100 mL, glycerine 100mL. Dispense (300 ml) in 1L NS bottle Start Date: 03/21/16 Stop Date: 03/28/16 Status: Completedsodium chloride 1 gm oral tablet 1 gm=1 tab, PO, Q6H, # 120 tab, 0 Refill(s) Start Date: 03/28/16 Stop Date: 04/27/16 Status: Orderedsodium chloride 1 gm oral tablet 1 gm, 1 tab, Route: PO, Drug form: TAB, Q6H, Dosing Weight 90.009, kg, Start date: 03/12/16 0:00:00 POURER OFF, Duration: 30 day, Stop date: 04/10/16 18:00:00 POURER OFF Start Date: 03/12/16 Stop Date: 03/29/16 Status: Discontinuedtrazodone 50 mg oral tablet 50 mg=1 tab, PO, Bedtime, # 30 tab, 0 Refill(s) Start Date: 03/28/16 Stop Date: 04/27/16 Status: Orderedtrazodone 50 mg oral tablet 50 mg, 1 tab, Route: PO, Drug form: TAB, Bedtime, Dosing Weight 75, kg, Start date: 03/19/16 21:00:00 POURER OFF, Duration: 30 day, Stop date: 04/17/16 21:00:00 POURER OFF Notes: (Same As: Desyrel) Start Date: 03/19/16 Stop Date: 03/29/16 Status: DiscontinuedTylenol 650 mg, 20.3 mL, Route: PO, Drug form: LIQ, Q4H, Dosing Weight 90.009, kg, PRN Pain Score 1-5, Startdate: 03/11/16 21:52:00 POURER OFF, Stop date: 04/10/16 21:51:00 POURER OFF Notes: Max vswiohnpihukl=2764zw/day (4 gm/day). (Same as: Tylenol) Start Date: 03/11/16 Stop Date: 03/29/16 Status: Discontinued Results ELECTROLYTES Most recent to oldest 1 2 3 [Reference Range]: Sodium Lvl [135-145 mEq/L] 136 mEq/L 136 mEq/L 136 mEq/L (03/22/16 6:16 AM) (03/20/16 4:34 AM) (03/18/16 4:48 AM) Potassium Lvl [3.5-5.1 mEq/L] 4.2 mEq/L 4.1 mEq/L 3.9 mEq/L (03/22/16 6:16 AM) (03/20/16 4:34 AM) (03/18/16 4:48 AM) Chloride Lvl [95-109 mEq/L] 97 mEq/L 98 mEq/L 99 mEq/L (03/22/16 6:16 AM) (03/20/16 4:34 AM) (03/18/16 4:48 AM) CO2 [24-32 mEq/L] 28 mEq/L 27 mEq/L 27 mEq/L (03/22/16 6:16 AM) (03/20/16 4:34 AM) (03/18/16 4:48 AM) AGAP [10.0-20.0 mEq/L] 15.2 mEq/L 15.1 mEq/L 13.9 mEq/L (03/22/16 6:16 AM) (03/20/16 4:34 AM) (03/18/16 4:48 AM) CHEM PANEL Most recent to oldest 1 2 3 [Reference Range]: Creatinine Lvl [0.50-1.40 0.82 mg/dL 0.68 mg/dL 0.67 mg/dL mg/dL] (03/22/16 6:16 AM) (03/20/16 4:34 AM) (03/18/16 4:48 AM) eGFR 76 mL/min/1.73m2 1 93 mL/min/1.73m2 2 93 mL/min/1.73m2 3 *NA* *NA* *NA* (03/22/16:16 AM) (03/20/16 4:34 AM) (03/18/16 4:48 AM) BUN [7-22 mg/dL] 17 mg/dL 17 mg/dL 18 mg/dL (03/22/16 6:16 AM) (03/20/16 4:34 AM) (03/18/16 4:48 AM) B/C Ratio [6-25] 21 25 27 (03/22/16 6:16 AM) (03/20/16 4:34 AM) *HI* (03/18/16 4:48 AM) Glucose Lvl [70-99 mg/dL] 194 mg/dL 197 mg/dL 198 mg/dL *HI* *HI* *HI* (03/22/16 6:16 AM) (03/20/16 4:34 AM) (03/18/16 4:48 AM) Total Protein [6.4-8.4 g/dL] 7.1 g/dL 8.0 g/dL 7.2 g/dL (03/22/16 6:16 AM) (03/20/16 4:34 AM) (03/18/16 4:48 AM) Albumin Lvl [3.5-5.0 g/dL] 3.1 g/dL 3.4 g/dL 3.1 g/dL *LOW* *LOW* *LOW* (03/22/16 6:16 AM) (03/20/16 4:34 AM) (03/18/16 4:48 AM) Globulin [2.7-4.2 g/dL] 4.0 g/dL 4.6 g/dL 4.1 g/dL (03/22/16 6:16 AM) *HI* (03/18/16 4:48 AM) (03/20/16 4:34 AM) A/G Ratio [0.7-1.6] 0.8 0.7 0.8 (03/22/16 6:16 AM) (03/20/16 4:34 AM) (03/18/16 4:48 AM) Calcium Lvl [8.5-10.5 mg/dL] 9.2 mg/dL 9.6 mg/dL 9.1 mg/dL (03/22/16 6:16 AM) (03/20/16 4:34 AM) (03/18/16 4:48 AM) Phosphorus [2.5-4.5 mg/dL] 4.1 mg/dL (03/12/16 4:47 AM) Magnesium Lvl [1.8-2.4 2.4 mg/dL mg/dL] (03/12/16 4:47 AM) ALT [0-65 unit/L] 59 unit/L 74 unit/L 74 unit/L (03/22/16 6:16 AM) *HI* *HI* (03/20/16 4:34 AM) (03/18/16 4:48 AM) AST [0-37 unit/L] 34 unit/L 32 unit/L 35 unit/L (03/22/16 6:16 AM) (03/20/16 4:34 AM) (03/18/16 4:48 AM) Alk Phos [39-136 unit/L] 86 unit/L 86 unit/L 78 unit/L (03/22/16 6:16 AM) (03/20/16 4:34 AM) (03/18/16 4:48 AM) Bili Total [0.2-1.3 mg/dL] 0.3 mg/dL 0.4 mg/dL 0.3 mg/dL (03/22/16 6:16 AM) (03/20/16 4:34 AM) (03/18/16 4:48 AM) 1Result Comment: The eGFR is calculated [...] eGFR should be multiplied by the estimated BMI.URINE AND STOOL Most recent to oldest [Reference Range]: 1 2 3 UA Turbidity [Clear] Clear Slight (03/23/16 4:55 PM) *ABN* (03/14/16 12:37 AM) UA Color [Yellow] Yellow Yellow *NA* *NA* (03/23/16 4:55 PM) (03/14/16 12:37 AM) UA pH [5.0-8.0] 6.0 5.5 (03/23/16 4:55 PM) (03/14/16 12:37 AM) UA Spec Grav [<=1.030] 1.011 1.016 (03/23/16 4:55 PM) (03/14/16 12:37 AM) UA Glucose [Negative mg/dL] Negative mg/dL *NA* (03/23/16 4:55 PM) UA Glucose 100mg/dL *NA* (03/14/16 12:37 AM) UA Blood [Negative] Negative Negative (03/23/16 4:55 PM) (03/14/16 12:37 AM) UA Ketones [Negative mg/dL] Negative mg/dL Negative mg/dL *NA* *NA* (03/23/16 4:55 PM) (03/14/16 12:37 AM) UA Protein [Negative mg/dL] Negative mg/dL Negative mg/dL (03/23/16 4:55 PM) (03/14/16 12:37 AM) UA Urobilinogen [0.1-1.0 mg/dL] <=1.0 mg/dL 4.0 mg/dL *NA* *HI* (03/23/16 4:55 PM) (03/14/16 12:37 AM) UA Bili [Negative] Negative Negative *NA* *NA* (03/23/16 4:55 PM) (03/14/16 12:37 AM) UA Leuk Est [Negative] Negative Large (03/23/16 4:55 PM) *ABN* (03/14/16 12:37 AM) UA Nitrite [Negative] Negative Negative (03/23/16 4:55 PM) (03/14/16 12:37 AM) UA WBC [0-5 /HPF] 1 /HPF >182 /HPF (03/23/16 4:55 PM) *HI* (03/14/16 12:37 AM) UA RBC [0-2 /HPF] <1 /HPF 1 /HPF (03/23/16 4:55 PM) (03/14/16 12:37 AM) UA Bacteria [None Seen /HPF] Occasional /HPF Few /HPF *NA* *NA* (03/23/16 4:55 PM) (03/14/16 12:37 AM) UA Sq Epi [Few /LPF] Few /LPF Occasional /LPF *NA* *NA* (03/23/16 4:55 PM) (03/14/16 12:37 AM) UA Mucus [None Seen /LPF] Few /LPF Few /LPF *NA* *NA* (03/23/16 4:55 PM) (03/14/16 12:37 AM) IMMUNOLOGY Most recent to oldest [Reference Range]: 1 2 3 Prealbumin [18.0-45.0 mg/dL] 27.4 mg/dL (03/12/16 4:47 AM) HEMATOLOGY Most recent to oldest 1 2 3 [Reference Range]: WBC [3.7-10.4 K/CMM] 7.5 K/CMM 8.5 K/CMM 8.3 K/CMM (03/22/16 6:16 AM) (03/20/16 4:34 AM) (03/18/16 4:48 AM) RBC [4.20-5.40 M/CMM] 3.80 M/CMM 3.90 M/CMM 3.63 M/CMM *LOW* *LOW* *LOW* (03/22/16 6:16 AM) (03/20/16 4:34 AM) (03/18/16 4:48 AM) Hgb [12.0-16.0 g/dL] 12.2 g/dL 12.6 g/dL 11.8 g/dL (03/22/16 6:16 AM) (03/20/16 4:34 AM) *LOW* (03/18/16 4:48 AM) Hct [36.0-48.0 %] 36.1 % 37.1 % 34.6 % (03/22/16 6:16 AM) (03/20/16 4:34 AM) *LOW* (03/18/16 4:48 AM) MCV [80.0-98.0 fL] 95.0 fL 94.9 fL 95.3 fL (03/22/16 6:16 AM) (03/20/16 4:34 AM) (03/18/16 4:48 AM) MCH [27.0-31.0 pg] 32.0 pg 32.2 pg 32.4 pg *HI* *HI* *HI* (03/22/16 6:16 AM) (03/20/16 4:34 AM) (03/18/16 4:48 AM) MCHC [32.0-36.0 g/dL] 33.7 g/dL 33.9 g/dL 33.9 g/dL (03/22/16 6:16 AM) (03/20/16 4:34 AM) (03/18/16 4:48 AM) RDW [11.5-14.5 %] 14.3 % 14.4 % 14.3 % (03/22/16 6:16 AM) (03/20/16 4:34 AM) (03/18/16 4:48 AM) Platelet [133-450 K/CMM] 202 K/CMM 259 K/CMM 279 K/CMM (03/22/16 6:16 AM) (03/20/16 4:34 AM) (03/18/16 4:48 AM) MPV [7.4-10.4 fL] 7.4 fL 8.4 fL 8.1 fL (03/22/16 6:16 AM) (03/20/16 4:34 AM) (03/18/16 4:48 AM) Segs [45.0-75.0 %] 56.8 % 63.1 % 59.4 % (03/22/16 6:16 AM) (03/20/16 4:34 AM) (03/18/16 4:48 AM) Lymphocytes [20.0-40.0 %] 33.0 % 28.0 % 31.4 % (03/22/16 6:16 AM) (03/20/16 4:34 AM) (03/18/16 4:48 AM) Monocytes [2.0-12.0 %] 7.5 % 6.1 % 6.2 % (03/22/16 6:16 AM) (03/20/16 4:34 AM) (03/18/16 4:48 AM) Eosinophils [0.0-4.0 %] 2.1 % 2.1 % 2.0 % (03/22/16 6:16 AM) (03/20/16 4:34 AM) (03/18/16 4:48 AM) Basophils [0.0-1.0 %] 0.6 % 0.7 % 1.0 % (03/22/16 6:16 AM) (03/20/16 4:34 AM) (03/18/16 4:48 AM) Segs-Bands # [1.5-8.1 K/CMM] 4.2 K/CMM 5.3 K/CMM 4.9 K/CMM (03/22/16 6:16 AM) (03/20/16 4:34 AM) (03/18/16 4:48 AM) Lymphocytes # [1.0-5.5 K/CMM] 2.5 K/CMM 2.4 K/CMM 2.6 K/CMM (03/22/16 6:16 AM) (03/20/16 4:34 AM) (03/18/16 4:48 AM) Monocytes # [0.0-0.8 K/CMM] 0.6 K/CMM 0.5 K/CMM 0.5 K/CMM (03/22/16 6:16 AM) (03/20/16 4:34 AM) (03/18/16 4:48 AM) Eosinophils # [0.0-0.5 K/CMM] 0.2 K/CMM 0.2 K/CMM 0.2 K/CMM (03/22/16 6:16 AM) (03/20/16 4:34 AM) (03/18/16 4:48 AM) Basophils # [0.0-0.2 K/CMM] 0.1 K/CMM 0.1 K/CMM 0.1 K/CMM (03/20/16 4:34 AM) (03/18/16 4:48 AM) (03/15/16 5:38 AM) Immunizations Given and Recorded Vaccine Date Status Refusal Reason pneumococcal 13-valent vaccine 03/03/16 Given Procedures No data available for this section Social History Social History Type Response Substance [...] Assessment and Plan Extracted from: Title: PM&R Discharge Summary Author: Jarod Curtis DO Date: 03/29/16 DISCHARGE SUMMARY ADMISSION DATE: 03/11/16 DISCHARGE DATE: 03/29/16 ADMISSION DIAGNOSIS: SAH Bilateral PCOM Aneurysms Nondominant Hemiplegia Cognitive Deficits Sleep Wake Cycle Dysfunction Agitation Dysphagia DM type 2 with hyperglycemia Constipation Post-surgical Pain DISCHARGE DIAGNOSIS: SAH Bilateral PCOM Aneurysms Nondominant Hemiplegia Cognitive Deficits Sleep Wake Cycle Dysfunction Agitation - resolved Dysphagia - improved DM type 2 with hyperglycemia Post-surgical Pain ATTENDING PHYSICIAN: Dr. Boom Parrish CONSULTING PHYSICIANS: none BRIEF SUMMARY OF PRESENT ILLNESS: This is a 65 year old female with PMH DM who presented with severe headache with N/V and questionable LOC on 02/24. Found to have SAH d/t ruptured R PCOM aneurysm and transferred to [facility] for HLOC. EVD was placed. She then underwent R frontotemporal craniotomy, anterior skull base resection, microdissection, and clipping with Dr. Marrero on 02/26/16. Post- operatively patient found to have L hemiplegia with small right intraparenchymal hemorrhage seen on CT. Patient was extubated and had repeat angiogram on 03/04 which showed moderate vasospasm. EVD was dc'd and patient was admitted to [facility] for acute inpatient rehabilitation. PERTINENT PAST HISTORY: PMH/PSH: DM type 2 Social History: Alcohol Details: Current, Type Beer. Frequency: 1-2 times per month. Previous treatment: None. Alcohol use interferes with work or home: No. Drinks more than intended: No. Others hurt by drinking: No. Lizabeth dy to change: No. Household alcohol concerns: No. Tobacco Details: Use: Never smoker. Tobacco smoke exposure: None. Did the Patient Smoke Cigarettes Anytime During the Last 365 Days? No. Cessation Counseling Provided? No. Details: Use: Never smoker. Tobacco smoke exposure: None. Did the Patient Smoke Cigarettes Anytime During the Last 365 Days? No. Cessation Counseling Provided? No. Substance Abuse Details: Use: None. Family History: Mother: Liver cancer Allergies: Allergies: NKDA HOSPITAL COURSE: Patient was admitted to [facility] on 03/11/16. She completed 7 days of seizure ppx with keppra on 03/13. Patient was tapered of nimodipine according to neurosurgery's plan without recurrence of vasospasm. Neuropsych and Speech language pathology were consulted for cognitive deficits. Patient's dysphagia improved with METAL RIVET MACHINE OPERATOR therapies, and her diet was upgraded to regular solids thin liquids. Patient was tra nsferred back to her home dose of metformin for management of her diabetes. Metformin dose was increased to 1000mg bid prior to discharge. Patient still with hyperglycemia, and patient and daughter were counseled to follow up with primary care doctor following discharge to continue monitoring and management patient's blood sugar. Hospital course was complicated by sleep wake cycle dysfunction for whic h patient was started on melatonin and trazodone, UTI for which patient was treated with 7 days of Cipro, and agitation which improved with buspar. Buspar was weaned prior to discharge, and agitation di d not reoccur. Patient progressed well with therapies for her cognitive deficits and hemiparesis d/t SAH. She showed improvement in endurance, strength , and independence with ADLs. She was discharged ho vt with family on 03/29/16 with 24 hour supervision. DISCHARGE FIM SCORES: PT Current Status PT Treatment Recommendations PT Treatment Recommendations: Patient presents with Left-sided weakness s/p ICH with resultant impairment of all functional mobilities including transitional movements, transfers and gait with loss of independence in work, home and community settings. patient is appropriate for inpatient rehabilitation and has potential to regain previous level of function. Discharge disposition [facility] either [facility] or home with outpatient physical therapy services. Performed: 12:41 Mobility Transfer Bed to and From Chair: Supervision or Setup Performed: 03/28/16 13:48 Floor Recovery: Does not occur Performed: 03/28/16 13:48 Transfer Toilet Type: Stand step Performed: 03/28/16 13:48 Toilet Transfer Device Type: Grab bar, Walker, rolling, Other: elevated toilet in restroom Performed: 03/28/16 13:48 Tub, Shower Transfer: Supvn/Setup - 5 Performed: 03/28/16 16:18 Tub/Shower Transfer Type: Stand step Performed: 03/28/16 13:48 Tub/Shower Transfer Device Type: Grab bar, Walker, rolling, Other: Tubbench in tub Performed: 03/28/16 13:48 Ambulation Level Surfaces Ambulation Device: Cane, single-point/straight, Walker, rolling Performed: 15:35 Ambulation Distance: 400 ft Performed: 03/28/16 13:48 Ambulation Uneven Surfaces Locomotion Walk: Supvn/Setup - 5 Performed: 03/28/16 13:48 Stairs Device: Straight cane, Right side rail up the stairs Performed: 15:35 Number of Stairs Performed: 12 Performed: 03/28/16 13:48 Locomotion Stair: Min A - 4 Performed: 03/28/16 13:48 Bed,Chair,Wheelchair: Supvn/Setup - 5 Performed: 03/28/16 13:48 Wheelchair Mobility Level Surfaces Wheelchair Mobility Level Distance: 40 ft Performed: 03/28/16 13:48 OT Current Status OT Treatment Recommendations OT Treatment Recommendations: Pt is a 65 yo female s/p SAH and s/p R frontotemporal craniotomy, anterior skullbase resection and hospitalization complicated by small R intraparenchymal hemorrhage. 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 Pt now presenting with non-dominant L hemiplegia, decreased L side attention, decreased balance, and motor planning for adl m obility and self care. Pt will benefit from intensive rehab program to progress with adl re-training, adl mobility training, caregiver training, and dme recommendations to maximize independence and decr ease burden of care for safe home discharge. Performed: 03/12/16 14:32 ADL Eating: Supvn/Setup - 5 Performed: 03/28/16 16:18 Grooming: Supvn/Setup - 5 Performed: 03/28/16 16:18 Grooming Descriptors: Supported short sit Performed: 03/28/16 16:18 Bathing: Supvn/Setup - 5 Performed: 03/28/16 16:18 Bathing Descriptors: Supported short sit, Tub Performed: 03/28/16 16:18 Bathing Equipment: Long handled bath sponge, Tub bench Performed: 03/28/16 16: 18 Upper Extremity Dressing: Supvn/Setup - 5 Performed: 03/28/16 16:18 Lower Extremity Dressing: Supvn/Setup - 5 Performed: 03/28/16 16:18 Dressing Descriptors: Supported short sit Performed: 03/28/16 16:18 Toileting: Supvn/Setup - 5 Performed: 03/29/16 08:50 Toileting Descriptors: Sitting without back support Performed: 03/28/16 16:18 Toileting Equipment: Grab bars/rail, Other: BSC; elevated toilet Performed: 16:18 Toilet Transfer: Supvn/Setup - 5 Performed: 03/28/16 16:18 Tub Transfer: Supvn/Setup - 5 Performed: 03/28/16 16:18 Shower Transfer: Does not occur Performed: 03/28/16 13:48 Cognition Cognition: Other: decreased problem solving and abstract reasoning Performed: 03/28/16 16:18 Vision Vision Status: Impaired Performed: 03/12/16 14:32 METAL RIVET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 Severity Level Comprehension: Standby prompting - 5 Performed: 03/29/16 08:48 Comprehension Mode: Auditory Performed: 03/29/16 08:48 Expression: Standby prompting - 5 Performed: 03/29/16 08:48 Expression Mode: Vocal Performed: 03/29/16 08:48 Memory: Standby prompting - 5 Performed: 03/29/16 08:48 Problem Solving: Standby prompting - 5 Performed: 03/29/16 08:48 Social Interaction: Standby prompting - 5 Performed: 03/29/16 08:48 PROCEDURES PERFORMED DURING ADMISSION: none PHYSICAL EXAM (at time of discharge): Vitals Tmp(F) Pulse BP RR SpO2 FIO2 03/29 07:26 97.9 71 99/57 -- --- --- 03/28 23:10 98.5 69 94/62 16 --- --- 03/28 14:00 98.3 66 134/71 18 --- --- 03/28 06:35 98.0 63 119/56 18 --- --- 03/27 23:44 98.6 68 96/54 18 97 --- 24 Hr Tmax: 98.5F (36.94c) at 03/28 23:10 Vital Signs are the last 5 in the past 48 hours. Physical Exam General: well-developed, NAD, lying in bed with daughter at bedside Eyes: sclera non-icteric, normal conjunctiva Cardiovascular: no pallor, no cyanosis, regular rate Respiratory: chest symmetry with respirations, non-labored respirations Skin: warm, surgical scalp wound with edges well approximated Psych: calm, cooperative, pleasant Neurologic: Mental Status: awake, alert, oriented to person and place DISCHARGE MEDICATIONS: Discharge Medications trazodone 50 mg oral tablet :50 mg, 1 tab, PO, Bedtime, for 30 day, 30 tab, 0 Refill(s) Ordered by: Jarod Curtis 03/28/2016 12:41 sodium chloride 1 gm oral tablet :1 gm, 1 tab, PO, Q6H, for 30 day, 120 tab, 0 Refill(s) Ordered by: Jarod Curtis 03/28/2016 12:41 metFORMIN 1000 mg oral tablet :1,000 mg, 1 tab, PO, BID, for 30 day, 60 tab, 0 Refill(s) Ordered by: Jarod Curtis DO 03/28/2016 12:41 polyethylene glycol 3350 oral powder for reconstitution :17 gm, PO, Daily, for 30 day, 527 gm, 0 Refill(s) Ordered by: Jarod Curtis 03/28/2016 12:39 CONDITION OF PATIENT ON DISCHARGE: stable DISPOSITION/INSTRUCTIONS/FOLLOW UP: Discharge to: Follow up Care Other: Dr Author Marrero When: within 16 days Comments: Call for follow up appointment The patient should follow up with Dr. Isauro Marrero MD In the neurosurgery clinic at [phone] in 2 week. Other: Out Patient therapy prescription Comments: in your discharge envelop. Other: Follow up with primary care provider When: 5 to 7 days Comments: Call for follow up appointment Other: Good Rx card Comments: [email or web address] medication card Activity: Activity Allowed at Discharge : Activity as tolerated, Other- see in Additional Activity Details Activity Details : patient requires 24 hour supervision Discharge Driving : None Discharge Lifting : No lifting until cleared by physician Discharge Sexual Activity : No sexual activity until cleared by physician Diet: Diet Carbohydrate Controlled -- 03/19/16 11:56:00 POURER OFF, Diabetic/4carb per meal (1800 layla) Follow up Appointments: The discharge plan was reviewed and discussed with the patient/family and appropriate education and counseling was provided. They were given the opportunity to ask any questions which were answered to the best of my knowledge. Physical Medicine and Rehabilitation Attending Physician Attestation: I personally examined the patient with the resident, reviewed all components of the history and physical examination and agree with the resident's assessment and plan of care as documented. Any exceptions are noted below. Chava Dixon MD Extracted from: Title: Team Rounds PM&R Author: Boom Charles MD Date: 03/28/16 Progress Note - Team Rounds Day Patient seen and examined today on day of rounds. Medical Updates: 65 year old female with PMH DM who presented with severe headache with N/V and questionable LOC on 02/24. Found to have SAH d/t ruptured R PCOM aneurysm and transferred to [facility] for HLOC. EVD was placed . She then underwent R frontotemporal craniotomy, anterior skull base resection , microdissection, and clipping with Dr. Marrero on 02/26/16. Post-operatively patient found to have L hemiplegia with small rig ht intraparenchymal hemorrhage seen on CT. Patient was extubated and had repeat angiogram on 03/04 which showed moderate vasospasm. EVD was dc'd and patient was admitted to [facility] for acute inpatient rehabilitation. - No new complaints. - Plan is to go home tomorrow - No overnight events reported by nursing. - LBM was Friday. Vitals Tmp(F) Pulse BP RR SpO2 FIO2 03/28 06:35 98.0 63 119/56 18 --- --- 03/27 23:44 98.6 68 96/54 18 97 --- 03/27 16:10 98.4 62 126/52 18 --- --- 03/27 06:43 97.6 56 108/57 18 --- --- 03/26 23:34 98.0 63 97/58 18 97 --- 24 Hr Tmax: 98.6F (37.00c) at 03/27 23:44 Vital Signs are the last 5 in the past 48 hours. Physical Exam: General: well-developed, NAD, lying in bed with family at bedside Eyes: sclera non-icteric, normal conjunctiva Cardiovascular: no pallor, no cyanosis Respiratory: chest symmetry with respirations, non-labored respirations Skin: warm, surgical scalp wound with edges well approximated Psych: calm, cooperative Neurologic: Mental Status: awake, alert, oriented to person and place Nursing: - no pain - stable v/s Therapeutic Reports: PT Current Status PT Treatment Recommendations PT Treatment Recommendations: Patient presents with Left-sided weakness s/p ICH with resultant impairment of all functional mobilities including transitional movements, transfers and gait with loss of independence in work, home and community settings. patient is appropriate for inpatient rehabilitation and has potential to regain previous level of function. Discharge disposition is either home [facility] or home with outpatient physical therapy services. Performed: 12:41 Mobility Transfer Bed to and From Chair: Supervision or Setup Performed: 03/21/16 13:00 Floor Recovery: Does not occur Performed: 03/21/16 13:00 Transfer Toilet Type: Stand step Performed: 03/21/16 13:00 Toilet Transfer Device Type: Bedside commode Performed: 03/21/16 13:00 Tub, Shower Transfer: Min A - 4 Performed: 03/21/16 13:00 Tub/Shower Transfer Type: Stand step Performed: 03/21/16 13:00 Tub/Shower Transfer Device Type: Grab bar, Other: Tubbench in tub Performed: 03/21/16 13:00 Ambulation Level Surfaces Ambulation Device: Cane, single-point/straight, Walker, rolling Performed: 15:35 Ambulation Distance: 400 ft Performed: 03/27/16 15:35 Comment: + additional 300 feet with single point cane. Ambulation Uneven Surfaces Locomotion Walk: Supvn/Setup - 5 Performed: 03/27/16 15:35 Stairs Device: Straight cane, Right side rail up the stairs Performed: 15:35 Number of Stairs Performed: 12 Performed: 03/27/16 15:35 Locomotion Stair: Min A - 4 Performed: 03/27/16 15:35 Bed,Chair,Wheelchair: Supvn/Setup - 5 Performed: 03/27/16 15:35 Wheelchair Mobility Level Surfaces Wheelchair Mobility Level Distance: 40 ft Performed: 03/27/16 15:35 OT Current Status OT Treatment Recommendations OT Treatment Recommendations: Pt is a 65 yo female s/p SAH and s/p R frontotemporal craniotomy, anterior skullbase resection and hospitalization complicated by small R intraparenchymal hemorrhage. 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 Pt now presenting with non-dominant L hemiplegia, decreased L side attention, decreased balance, and motor planning for adl m obility and self care. Pt will benefit from intensive rehab program to progress with adl re-training, adl mobility training, caregiver training, and dme recommendations to maximize independence and decr ease burden of care for safe home discharge. Performed: 03/12/16 14:32 ADL Eating: Supvn/Setup - 5 Performed: 03/27/16 16:50 Grooming: Supvn/Setup - 5 Performed: 03/27/16 16:50 Grooming Descriptors: Supported short sit Performed: 03/21/16 13:00 Bathing: Supvn/Setup - 5 Performed: 03/27/16 16:50 Bathing Descriptors: Supported short sit, Tub Performed: 03/21/16 13:00 Bathing Equipment: Long handled bath sponge, Tub bench Performed: 03/21/16 13: 00 Upper Extremity Dressing: Supvn/Setup - 5 Performed: 03/27/16 16:50 Lower Extremity Dressing: Min A - 4 Performed: 03/27/16 16:50 Dressing Descriptors: Supported short sit Performed: 03/21/16 13:00 Toileting: Tot A - 1 Performed: 03/27/16 09:00 Toileting Descriptors: Sitting without back support Performed: 03/21/16 13:00 Toileting Equipment: Grab bars/rail, Other: BSC; elevated toilet Performed: 13:00 Toilet Transfer: Min A - 4 Performed: 03/21/16 13:00 Tub Transfer: Min A - 4 Performed: 03/21/16 13:00 Shower Transfer: Does not occur Performed: 03/21/16 13:00 Vision Vision Status: Impaired Performed: 03/12/16 14:32 [employer]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 Severity Level Comprehension: Standby prompting - 5 Performed: 03/25/16 09:00 Comprehension Mode: Auditory Performed: 03/25/16 09:00 Expression: Standby prompting - 5 Performed: 03/25/16 09:00 Expression Mode: Vocal Performed: 03/25/16 09:00 Memory: Standby prompting - 5 Performed: 03/25/16 09:00 Problem Solving: Standby prompting - 5 Performed: 03/25/16 09:00 Social Interaction: Standby prompting - 5 Performed: 03/25/16 09:00 Goals: - improve balance - improve transfers - improve movement and coordination - monitor BM - monitor glycemia - initiate behavior modification program - ensure continence Discharge Plans: 03/29/2016 to home with 24 hr supervision Total time in care of this patient was 35 minutes with greater than half in coordination of care as demonstrated by multidisciplinary team rounds today.
--- OUTSIDE RECORDS SUMMARY | 2017-08-24 11:30 | XMS REPORT | Summary of Care ---
:1950 Author Organization [facility] Address [address] [place] [id number] Encounter HQ Encntr_ariella(FIN) [id number] Date(s): 06/19/16 - 06/20/[address] Professional Services provided by [facility] [place] [address]- Discharge Disposition: Home or Self Care Attending Physician: Ji Truong MD Admitting Physician: Ji Truong MD Referring Physician: Ji Truong MD Vital Signs Most recent to oldest 1 2 3 [Reference Range]: Height 162.56 cm 162.56 cm (06/19/16 6:22 AM) (06/18/16 11:25 AM) Blood Pressure [90-140/60-90 105/55 mmHg 114/57 mmHg 114/57 mmHg mmHg] (06/20/16 8:00 AM) (06/20/16 7:00 AM) (06/20/16 6:00 AM) Respiratory Rate [14-20 BRMIN] 39 BRMIN 20 BRMIN 20 BRMIN *HI* (06/20/16 8:00 AM) (06/20/16 7:00 AM) (06/20/16 8:35 AM) Peripheral Pulse Rate [60-100 82 bpm bpm] (06/19/16 6:22 AM) Weight 75.4 kg 72.727 kg 72.727 kg (06/20/16 9:40 AM) (06/19/16 6:22 AM) (06/18/16 11:25 AM) Body Mass Index 27.52 m2 27.52 m2 (06/19/16 6:22 AM) (06/18/16 11:25 AM) Problem List Condition Effective Dates Status Health Status Informant Cerebral edema(Confirmed) Active DM (diabetes mellitus)(Confirmed) Resolved 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(Confirmed) SAH (subarachnoid Active hemorrhage)(Confirmed) SAH (subarachnoid 02/26/16 Resolved hemorrhage)(Confirmed) Hyperosmolality and Active hypernatremia(Confirmed) HTN (hypertension)(Confirmed) Active Obstructive hydrocephalus(Confirmed) Active Acute and chronic respiratory Active failure with hypoxia(Confirmed) Intracerebral hemorrhage, Active intraventricular(Confirmed) Allergies, Adverse Reactions, Alerts Substance Reaction Severity Status NKDA Active Medications aspirin 325 mg, PO, 0 Refill(s) Start Date: 06/19/16 Status: Orderedcalcium carbonate 500 mg (200 mg elemental calcium) oral tablet 500 mg, 1 tab, Route: PO, Drug form: CHEWTAB, PRN, Dosing Weight 72.727, kg, PRN Abnormal Lab Result, FOR ICU USE ONLY, Start date: 06/19/16 13:36:00 CDT, Duration: 30 day, Stop date: 07/19/16 13:35:00CDT Notes: (Same As: Sarah)Calcium Carbonate 500 yb=314 mg elemental calcium Dose=_ mg calcium carbonate ( mg elemental calcium) Start Date: 06/19/16 Stop Date: 06/20/16 Status: Discontinuedcalcium carbonate 500 mg (200 mg elemental calcium) oral tablet 1,000 mg, 2 tab, Route: PO, Drug form: CHEWTAB, PRN, Dosing Weight 72.727, kg, PRN Abnormal Lab Result, FOR ICU USE ONLY, Start date: 06/19/16 13:36:00 CDT, Duration: 30 day, Stop date: 07/19/16 13:35:00 CDT Notes: (Same As: Eliuds)Calcium Carbonate 500 zu=148 mg elemental calcium Dose=_ mg calcium carbonate ( mg elemental calcium) Start Date: 06/19/16 Stop Date: 06/20/16 Status: Discontinuedcalcium gluconate + sodium chloride 0.9% INJ 50 mL 1 gm, 10 mL, Route: IVPB, PRN, Dosing Weight 72.727, kg, PRN Abnormal Lab Result , Start date: 06/19/16 13:36:00 CDT, Duration: 30 day, Stop date: 07/19/16 13:35 :00 CDT, FOR ICU USE ONLY Notes: WASTE: F/P - Sink; E - Municipal Trash Bin Start Date: 06/19/16 Stop Date: 06/20/16 Status: DiscontinuedceFAZolin 2 gm, 100 mL, Route: IVPB, Drug form: INJ, PRE OP, Start date: 06/19/16 1:00:00 CDT, Duration: 1 day, Stop date: 06/20/16 0:59:00 CDT Notes: Same as: Ancef Start Date: 06/19/16 Stop Date: 06/19/16 Status: CompletedColace 100 mg oral capsule 100 mg=1 cap, PO, BID, # 28 cap, 0 Refill(s) Start Date: 06/20/16 Stop Date: 07/04/16 Status: OrderedDextrose 50% Syringe 25 gm, 50 mL, Route: IVP, Drug Form: INJ, Dosing Weight 72.727, kg, PRN, PRN Blood Glucose Results, Start date: 06/19/16 16:10:00 CDT, Duration: 30 day, Stop date: 07/19/16 16:09:00 CDT Start Date: 06/19/16 Stop Date: 06/20/16 Status: DiscontinuedDextrose 50% Syringe 12.5 gm, 25 mL, Route: IVP, Drug Form: INJ, Dosing Weight 72.727, kg, PRN, PRN Blood Glucose Results, Start date: 06/19/16 16:10:00 CDT, Duration: 30 day, Stop date: 07/19/16 16:09:00 CDT Start Date: 06/19/16 Stop Date: 06/20/16 Status: Discontinueddocusate 100 mg, 1 cap, Route: PO, Drug form: CAP, Q12H, Dosing Weight 72.727, kg, Start date: 06/19/16 21:00:00 CDT, Duration: 30 day, Stop date: 07/19/16 9:00:00 CDT Notes: (Same as: Colace) (Do Not Crush) Start Date: 06/19/16 Stop Date: 06/20/16 Status: Discontinuedflumazenil 0.2 mg, 2 mL, Route: IVP, Drug form: INJ, PRN, Dosing Weight 72.727, kg, PRN Benzodiazepine Reversal, Initial dose, Start date: 06/19/16 10:50:00 CDT, Duration: 1 day, Stop date: 06/20/16 10:49:00 CDT Notes: (Same as: Romazicon) Start Date: 06/19/16 Stop Date: 06/19/16 Status: Discontinuedglucagon 1 mg, Route: IM, Drug form: PDR/INJ, PRN, Dosing Weight 72.727, kg, PRN Blood Glucose Results, Startdate: 06/19/16 16:10:00 CDT, Duration: 30 day, Stop date: 07/19/16 16:09:00 CDT Start Date: 06/19/16 Stop Date: 06/20/16 Status: DiscontinuedInsulin regular 8 unit, 0.08 mL, Route: SUB-Q, Drug form: SOLN, TID-Before Meals, Dosing Weight 72.727, kg, PRN Blood Glucose Results, Start date: 06/19/16 16:10:00 CDT, Duration: 30 day, Stop date: 07/19/16 16:09:00 CDT Notes: (Same as: Humulin R) Roll in palms of hands gently; Do not shake vigorously. "single patientuse only"(Restricted to patients requiring a dose > 60 units)WASTE: F/P - Black; E - Municipal Trash Bin Stable for 28 days at room temperatureExpires in days from Date Start Date: 06/19/16 Stop Date: 06/20/16 Status: DiscontinuedInsulin regular 4 unit, 0.04 mL, Route: SUB-Q, Drug form: SOLN, TID-Before Meals, Dosing Weight 72.727, kg, PRN Blood Glucose Results, Start date: 06/19/16 16:10:00 CDT, Duration: 30 day, Stop date: 07/19/16 16:09:00 CDT Notes: (Same as: Humulin R) Roll in palms of hands gently; Do not shake vigorously. "single patientuse only"(Restricted to patients requiring a dose > 60 units)WASTE: F/P - Black; E - Municipal Trash Bin Stable for 28 days at room temperatureExpires in days from Date Start Date: 06/19/16 Stop Date: 06/20/16 Status: DiscontinuedInsulin regular 10 unit, 0.1 mL, Route: SUB-Q, Drug form: SOLN, TID-Before Meals, Dosing Weight 72.727, kg, PRN Blood Glucose Results, Start date: 06/19/16 16:10:00 CDT, Duration: 30 day, Stop date: 07/19/16 16:09:00 CDT Notes: (Same as: Humulin R) (Restricted to patients requiring a dose > 60 units )WASTE: F/P - Black; E - Municipal Trash Bin Start Date: 06/19/16 Stop Date: 06/20/16 Status: DiscontinuedInsulin regular 6 unit, 0.06 mL, Route: SUB-Q, Drug form: SOLN, TID-Before Meals, Dosing Weight 72.727, kg, PRN Blood Glucose Results, Start date: 06/19/16 16:10:00 CDT, Duration: 30 day, Stop date: 07/19/16 16:09:00 CDT Notes: (Same as: Humulin R) Roll in palms of hands gently; Do not shake vigorously. "single patientuse only"(Restricted to patients requiring a dose > 60 units)WASTE: F/P - Black; E - Municipal Trash Bin Stable for 28 days at room temperatureExpires in days from Date Start Date: 06/19/16 Stop Date: 06/20/16 Status: DiscontinuedInsulin regular 2 unit, 0.02 mL, Route: SUB-Q, Drug form: SOLN, TID-Before Meals, Dosing Weight 72.727, kg, PRN Blood Glucose Results, Start date: 06/19/16 16:10:00 CDT, Duration: 30 day, Stop date: 07/19/16 16:09:00 CDT Notes: (Same as: Humulin R) Roll in palms of hands gently; Do not shake vigorously. "single patientuse only"(Restricted to patients requiring a dose > 60 units)WASTE: F/P - Black; E - Municipal Trash Bin Stable for 28 days at room temperatureExpires in days from Date Start Date: 06/19/16 Stop Date: 06/20/16 Status: DiscontinuedLipitor PO, Daily, 0 Refill(s) Start Date: 06/19/16 Status: Orderedmagnesium oxide 800 mg, 2 tab, Route: PO, Drug form: TAB, PRN, Dosing Weight 72.727, kg, PRN Abnormal Lab Result, FOR ICU USE ONLY, Start date: 06/19/16 13:36:00 CDT, Duration: 30 day, Stop date: 07/19/16 13:35:00 CDT Notes: (Same as: Mag-Ox 400)Magnesium oxide [id number] elemental magnesiumDose= ____mg magnesium oxide (___mg elemental magnesium) Start Date: 06/19/16 Stop Date: 06/20/16 Status: Discontinuedmagnesium sulfate 2 gm, 50 mL, Route: IVPB, Drug form: INJ, PRN, Dosing Weight 72.727, kg, PRN Abnormal Lab Result, Start date: 06/19/16 13:36:00 CDT, Duration: 30 day, Stop date: 07/19/16 13:35:00 CDT, FOR ICU USE ONLY Notes: WASTE: F/P - Sink; E - Municipal Trash Bin Start Date: 06/19/16 Stop Date: 06/20/16 Status: Discontinuednaloxone 0.4 mg, 1 mL, Route: IVP, Drug form: INJ, Q2MIN, Dosing Weight 72.727, kg, PRN Narcotic Reversal, Start date: 06/19/16 10:50:00 CDT, Duration: 8 doses or times , Stop date: Limited # of times Notes: Same as Narcan Start Date: 06/19/16 Stop Date: 06/19/16 Status: DiscontinuedOmnipaque 350 150 ml, Route: INTRAARTERIAL, Dosing Weight 72.727, kg, ONCE, Start date: 10:26:00 CDT, Stop date: 06/19/16 10:26:00 CDT Start Date: 06/19/16 Stop Date: 06/19/16 Status: Completedondansetron 4 mg, 2 mL, Route: IVP, Drug form: INJ, ONCE, Dosing Weight 72.727, kg, PRN Nausea & Vomiting, Start date: 06/19/16 10:50:00 CDT Notes: (Same as: Zofran) MEDICATION WASTE Product Size: 4 mgProduct Wasted: 0__ mg Start Date: 06/19/16 Stop Date: 06/19/16 Status: Discontinuedpneumococcal 23-valent vaccine 0.5 mL, Route: IM, Drug Form: INJ, Daily, Start date: 06/20/16 9:00:00 CDT, Duration: 1 doses or times, Stop date: 06/20/16 9:00:00 CDT Notes: (Same as: Pneumovax 23) Refrigerate Start Date: 06/20/16 Stop Date: 06/20/16 Status: Completedpotassium chloride 20 mEq, 15 mL, Route: NJ, Drug form: LIQ, PRN, Dosing Weight 72.727, kg, PRN Abnormal Lab Result, Start date: 06/19/16 13:36:00 CDT, Duration: 30 day, Stop date: 07/19/16 13:35:00 CDT, FOR ICU USE ONLY Notes: (Same as: Potassium Chloride) Start Date: 06/19/16 Stop Date: 06/20/16 Status: Discontinuedpotassium chloride 20 mEq, 100 mL, Route: IVPB, Drug form: INJ, PRN, Dosing Weight 72.727, kg, PRN Abnormal Lab Result,Via central line, Start date: 06/19/16 13:36:00 CDT, Duration: 30 day, Stop date: 07/19/16 13:35:00 CDT, FOR ICU USE ONLY Notes: (Same as: KCL) Infuse no faster than 10 mEq/hr if given peripherally. Start Date: 06/19/16 Stop Date: 06/20/16 Status: Discontinuedpotassium chloride 10 mEq, 50 mL, Route: IVPB, Drug form: INJ, PRN, Dosing Weight 72.727, kg, PRN Abnormal Lab Result, Via peripheral line, Start date: 06/19/16 13:36:00 CDT, Duration: 30 day, Stop date: 07/19/16 13:35:00 CDT, FOR ICU USE ONLY Notes: (Same as: KCL) Infuse over 2 hours. Start Date: 06/19/16 Stop Date: 06/20/16 Status: Discontinuedpotassium chloride 20 mEq, 1 tab, Route: PO, Drug form: ERTAB, PRN, Dosing Weight 72.727, kg, PRN Abnormal Lab Result, Start date: 06/19/16 13:36:00 CDT, Duration: 30 day, Stop date: 07/19/16 13:35:00 CDT, FOR ICU USE ONLY Notes: (Same as: K-Dur 20)"Do Not Crush" With food and full glass of water Start Date: 06/19/16 Stop Date: 06/20/16 Status: Discontinuedpotassium phosphate + sodium chloride 0.9% INJ 250 mL 45 mmol, 15 mL, Route: IVPB, PRN, Dosing Weight 72.727, kg, PRN Abnormal Lab Result, Start date: 06/19/16 13:36:00 CDT, Duration: 30 day, Stop date: 13:35:00 CDT, FOR ICU USE ONLY Notes: (Same as: K Phosphate.) 1 mMol phoshate has 1.47 mEq potassium Infuse over 4 hours Start Date: 06/19/16 Stop Date: 06/20/16 Status: Discontinuedpotassium phosphate + sodium chloride 0.9% INJ 250 mL 30 mmol, 10 mL, Route: IVPB, PRN, Dosing Weight 72.727, kg, PRN Abnormal Lab Result, Start date: 06/19/16 13:36:00 CDT, Duration: 30 day, Stop date: 13:35:00 CDT, FOR ICU USE ONLY Notes: (Same as: K Phosphate.) 1 mMol phoshate has 1.47 mEq potassium Infuse over 4 hours Start Date: 06/19/16 Stop Date: 06/20/16 Status: Discontinuedpotassium phosphate + sodium chloride 0.9% INJ 250 mL 15 mmol, 5 mL, Route: IVPB, PRN, Dosing Weight 72.727, kg, PRN Abnormal Lab Result, Start date: 06/19/16 13:36:00 CDT, Duration: 30 day, Stop date: 13:35:00 CDT, FOR ICU USE ONLY Notes: (Same as: K Phosphate.) 1 mMol phoshate has 1.47 mEq potassium Infuse over 4 hours Start Date: 06/19/16 Stop Date: 06/20/16 Status: Discontinuedpotassium phosphate-sodium phosphate 250 mg-280 mg-160 mg oral powder for reconstitution 2 pkt, Route: PO, Drug Form: PDR/REC, Dosing Weight 72.727, kg, PRN, PRN Abnormal Lab Result, FOR ICU USE ONLY, Start date: 06/19/16 13:36:00 CDT, Duration: 30 day, Stop date: 07/19/16 13:35:00 CDT Notes: (Same as: Phos-NaK) Each 1.5 gm pkt has 250mg phosphorous. Mix w/2.5oz water and stir. Start Date: 06/19/16 Stop Date: 06/20/16 Status: DiscontinuedSaline Flush 0.9% 10 ml, Route: IVP, Drug Form: INJ, Dosing Weight 72.727, kg, PRN, PRN Line Flush , Start date: 06/19/16 13:36:00 CDT, Duration: 30 day, Stop date: 07/19/16 13:35 :00 CDT Notes: Same as: BD Posiflush Sterile Start Date: 06/19/16 Stop Date: 06/20/16 Status: DiscontinuedSaline Flush 0.9% 10 ml, Route: IVP, Drug Form: INJ, Dosing Weight 72.727, kg, PRN, PRN Line Flush , Start date: 06/19/16 13:36:00 CDT, Duration: 30 day, Stop date: 07/19/16 13:35 :00 CDT Notes: Same as: BD Posiflush Sterile Start Date: 06/19/16 Stop Date: 06/20/16 Status: DiscontinuedSaline Flush 0.9% 10 ml, Route: IVP, Drug Form: INJ, Dosing Weight 72.727, kg, Q12H, Start date: 06/19/16 21:00:00 CDT, Duration: 30 day, Stop date: 07/19/16 9:00:00 CDT Notes: Same as: BD Posiflush Sterile Start Date: 06/19/16 Stop Date: 06/20/16 Status: Discontinuedsenna 8.6 mg, 1 tab, Route: PO, Drug Form: TAB, Dosing Weight 72.727, kg, Q12H, Start date: 06/19/16 21:00:00 CDT, Duration: 30 day, Stop date: 07/19/16 9:00:00 CDT Notes: (Same as: Veronica) Start Date: 06/19/16 Stop Date: 06/20/16 Status: Discontinuedsenna 8.6 mg oral tablet 17.2 mg=2 tab, PO, Bedtime, PRN Constipation, X 10 day, # 20 tab, 0 Refill(s) Start Date: 06/20/16 Stop Date: 06/30/16 Status: Orderedsodium chloride 0.9% 1000 ml INJ 1,000 mL 1,000 mL, Rate: 75 ml/hr, Infuse over: 13.3 hr, Route: IV, Dosing Weight 72.727 kg, Total Volume: 1,000, Start date: 06/19/16 13:36:00 CDT, Duration: 30 day, Stop date: 07/19/16 13:35:00 CDT Start Date: 06/19/16 Stop Date: 06/20/16 Status: Discontinuedsodium phosphate + sodium chloride 0.9% INJ 250 mL 45 mmol, 15 mL, Route: IVPB, PRN, Dosing Weight 72.727, kg, PRN Abnormal Lab Result, Start date: 06/19/16 13:36:00 CDT, Duration: 30 day, Stop date: 13:35:00 CDT, FOR ICU USE ONLY Start Date: 06/19/16 Stop Date: 06/20/16 Status: Discontinuedsodium phosphate + sodium chloride 0.9% INJ 250 mL 15 mmol, 5 mL, Route: IVPB, PRN, Dosing Weight 72.727, kg, PRN Abnormal Lab Result, Start date: 06/19/16 13:36:00 CDT, Duration: 30 day, Stop date: 13:35:00 CDT, FOR ICU USE ONLY Start Date: 06/19/16 Stop Date: 06/20/16 Status: Discontinuedsodium phosphate + sodium chloride 0.9% INJ 250 mL 30 mmol, 10 mL, Route: IVPB, PRN, Dosing Weight 72.727, kg, PRN Abnormal Lab Result, Start date: 06/19/16 13:36:00 CDT, Duration: 30 day, Stop date: 13:35:00 CDT, FOR ICU USE ONLY Start Date: 06/19/16 Stop Date: 06/20/16 Status: DiscontinuedTylenol 650 mg, 2 tab, Route: PO, Drug form: TAB, Q6H, Dosing Weight 72.727, kg, PRN Pain Score 1-3, Start date: 06/19/16 19:10:00 CDT, Duration: 30 day, Stop date: 07/19/16 19:09:00 CDT Notes: Do not exceed 4 gm/day. (Same as: Tylenol) Start Date: 06/19/16 Stop Date: 06/20/16 Status: DiscontinuedTylenol with Codeine #3 oral tablet 1 tab, PO, Q6H, PRN Pain, X 15 day, # 60 tab, 0 Refill(s) Start Date: 06/20/16 Stop Date: 07/05/16 Status: OrderedZofran 4 mg oral tablet 4 mg=1 tab, PO, Q8H, PRN Nausea/vomiting, X 10 day, # 30 tab, 0 Refill(s) Start Date: 06/20/16 Stop Date: 06/30/16 Status: Ordered Results ELECTROLYTES Most recent to oldest [Reference Range]: 1 2 Sodium Lvl [135-145 mEq/L] 138 mEq/L 139 mEq/L (06/19/16 11:36 PM) (06/19/16 6:51 AM) Potassium Lvl [3.5-5.1 mEq/L] 4.2 mEq/L 4.2 mEq/L (06/19/16 11:36 PM) (06/19/16 6:51 AM) Chloride Lvl [95-109 mEq/L] 102 mEq/L 103 mEq/L (06/19/16 11:36 PM) (06/19/16 6:51 AM) CO2 [24-32 mEq/L] 25 mEq/L 26 mEq/L (06/19/16 11:36 PM) (06/19/16 6:51 AM) AGAP [10.0-20.0 mEq/L] 15.2 mEq/L 14.2 mEq/L (06/19/16 11:36 PM) (06/19/16 6:51 AM) CHEM PANEL Most recent to oldest [Reference Range]: 1 2 Creatinine Lvl [0.50-1.40 mg/dL] 0.71 mg/dL 0.61 mg/dL (06/19/16 11:36 PM) (06/19/16 6:51 AM) eGFR 89 mL/min/1.73m2 1 95 mL/min/1.73m2 2 *NA* *NA* (06/19/16 11:36 PM) (06/19/16 6:51 AM) BUN [7-22 mg/dL] 13 mg/dL 20 mg/dL (06/19/16 11:36 PM) (06/19/16 6:51 AM) Glucose Lvl [70-99 mg/dL] 161 mg/dL 123 mg/dL *HI* *HI* (06/19/16 11:36 PM) (06/19/16 6:51 AM) Calcium Lvl [8.5-10.5 mg/dL] 8.7 mg/dL 9.2 mg/dL (06/19/16 11:36 PM) (06/19/16 6:51 AM) Phosphorus [2.5-4.5 mg/dL] 3.3 mg/dL (06/19/16 11:36 PM) Magnesium Lvl [1.8-2.4 mg/dL] 2.1 mg/dL (06/19/16 11:36 PM) 1Result Comment: The eGFR is calculated using [...] eGFR should be multiplied by the estimated BMI.PARATHYROID PROFILE Most recent to oldest [Reference Range]: 1 2 Ca Ion WB [1.05-1.25 mMol/L] 1.10 mMol/L (06/19/16 11:36 PM) Ca Norm WB [1.05-1.25 mMol/L] 1.10 mMol/L (06/19/16 11:36 PM) HEMATOLOGY Most recent to oldest [Reference Range]: 1 2 WBC [3.7-10.4 K/CMM] 9.5 K/CMM 10.0 K/CMM (06/19/16 11:36 PM) (06/19/16 6:51 AM) RBC [4.20-5.40 M/CMM] 4.34 M/CMM 4.43 M/CMM (06/19/16 11:36 PM) (06/19/16 6:51 AM) Hgb [12.0-16.0 g/dL] 13.4 g/dL 13.4 g/dL (06/19/16 11:36 PM) (06/19/16 6:51 AM) Hct [36.0-48.0 %] 39.5 % 40.4 % (06/19/16 11:36 PM) (06/19/16 6:51 AM) MCV [80.0-98.0 fL] 91.0 fL 91.1 fL (06/19/16 11:36 PM) (06/19/16 6:51 AM) MCH [27.0-31.0 pg] 30.8 pg 30.2 pg (06/19/16 11:36 PM) (06/19/16 6:51 AM) MCHC [32.0-36.0 g/dL] 33.8 g/dL 33.1 g/dL (06/19/16 11:36 PM) (06/19/16 6:51 AM) RDW [11.5-14.5 %] 13.2 % 12.3 % (06/19/16 11:36 PM) (06/19/16 6:51 AM) Platelet [133-450 K/CMM] 248 K/CMM 249 K/CMM (06/19/16 11:36 PM) (06/19/16 6:51 AM) MPV [7.4-10.4 fL] 8.0 fL 7.9 fL (06/19/16 11:36 PM) (06/19/16 6:51 AM) Segs [45.0-75.0 %] 77.7 % 47.6 % *HI* (06/19/16 6:51 AM) (06/19/16 11:36 PM) Lymphocytes [20.0-40.0 %] 19.0 % 46.9 % *LOW* *HI* (06/19/16 11:36 PM) (06/19/16 6:51 AM) Monocytes [2.0-12.0 %] 3.1 % 4.3 % (06/19/16 11:36 PM) (06/19/16 6:51 AM) Eosinophils [0.0-4.0 %] 1.2 % (06/19/16 6:51 AM) Basophils [0.0-1.0 %] 0.2 % 0.0 % (06/19/16 11:36 PM) (06/19/16 6:51 AM) Segs-Bands # [1.5-8.1 K/CMM] 7.4 K/CMM 4.8 K/CMM (06/19/16 11:36 PM) (06/19/16 6:51 AM) Lymphocytes # [1.0-5.5 K/CMM] 1.8 K/CMM 4.7 K/CMM (06/19/16 11:36 PM) (06/19/16 6:51 AM) Monocytes # [0.0-0.8 K/CMM] 0.3 K/CMM 0.4 K/CMM (06/19/16 11:36 PM) (06/19/16 6:51 AM) Eosinophils # [0.0-0.5 K/CMM] 0.1 K/CMM (06/19/16 6:51 AM) Basophils # [0.0-0.2 K/CMM] 0.0 K/CMM (06/19/16 6:51 AM) PT [12.0-14.7 seconds] 14.0 seconds (06/19/16 7:54 AM) INR [0.85-1.17] 1.06 (06/19/16 7:54 AM) PTT [22.9-35.8 seconds] 27.8 seconds (06/19/16 7:54 AM) ASA Effect Plt 431 ARU *NA* (06/19/16 7:54 AM) ASA Effect Plt see note 1 *NA* (06/19/16 6:54 AM) Plav Effect Plt 268 PRU *NA* (06/19/16 7:54 AM) Plav Effect Plt see note 2 *NA* (06/19/16 6:54 AM) 1Result Comment: Angela Tavares asked to remove results,06/19/2016 08:452Result Comment: Angela Tavares asked for results to be removed,06/19/2016 08:45BACTERIAL - SEROLOGY Most recent to oldest [Reference Range]: 1 2 MRSA by PCR Negative (06/19/16 3:52 PM) Immunizations Given and Recorded Vaccine Date Status Refusal Reason pneumococcal 13-valent vaccine 03/03/16 Given Not Given Vaccine Date Status Refusal Reason pneumococcal 23-valent vaccine 06/20/16 Not Given Parent Or Guardian Refuses Procedures Procedure Date Related Diagnosis Body Site Selective catheter placement, common carotid or 06/19/16 innominate artery, unilateral, any approach, with angiography of the ipsilateral extracranial carotid circulation and all associated radiological supervision and interpretation, includes angiography of the c Selective catheter placement, internal carotid 06/19/16 artery, unilateral, with angiography of the ipsilateral intracranial carotid circulation and all associated radiological supervision and interpretation, includes angiography of the extracranial carotid and ce Craniotomy and clipping of intracranial aneurysm Social History Social History Type Response Substance [...] Smoking Cessation Counseling No Assessment and Plan No data available for this section
--- NOTE | 2017-08-24 11:47 | RAD REPORT ---
EXAM DESCRIPTION: CT - Ct Stroke Brain Wo Cont - 08/24/2017 11:38 am CLINICAL HISTORY: Left-sided facial drooping/left hand weakness COMPARISON: August 2016 TECHNIQUE: Computed axial tomography of the head was obtained. IV contrast was not requested. All CT scans are performed using dose optimization technique as appropriate and may include automated exposure control or mA/KV adjustment according to patient size. FINDINGS: Postsurgical changes of a right craniotomy and aneurysm repair are seen. 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 The ventricles are normal in caliber. An acute intracranial bleed is not seen. No extra-axial fluid collection is noted. Fluid within the sinuses/ mastoids is not seen. IMPRESSION: No acute intracranial abnormality is seen. The examination was discussed with Dr. Jesus glez in the emergency room 11:30 a.m. August 24, 2017
[2017-08-24 11:56] LABS: Absolute Monocytes 0.7 K/uL (0.1-1.3); Absolute Neutrophil 5.5 K/uL (1.8-8.0); Basophils % 1.4 % (0-1.3); Eosinophils % 1.2 % (0-4.4); Hematocrit 41.6 % (36.0-45.0); Lymphocytes % 38.2 % (15.3-44.8); MCH 31.4 pg (27.0-35.0); MCV 93.1 fL (80-100); MPV 8.1 fL (7.6-11.3); Monocytes % 6.3 % (3.3-12.3); RBC Red Blood Cell Count 4.47 M/uL (3.86-4.86)
[2017-08-24] MEDS ORDERED: KETOROLAC 30 MG/ML INJ ONE (12:01)
[2017-08-24] MEDS ORDERED: NA CHLORIDE 0.9% 1,000 ML ONE (12:01)
[2017-08-24] MEDS ORDERED: METOCLOPRAMIDE 10 MG/2mL INJ ONE (12:01)
[2017-08-24 12:03] LABS: Protime INR 1.08
[2017-08-24 12:16] LABS: Potassium 4.7 mmol/L (3.5-5.1)
--- NOTE | 2017-08-24 12:40 | ER ---
Nurse's Notes [facility] Name: Lorri Dotson Age: 67 yrs Sex: Female : 1950 Arrival Date: 08/24/2017 Time: 11:22 Bed 2 Private MD: Nidia Contreras H; None, None Diagnosis: Cerebral infarction Presentation: 08/24 11:24 Presenting complaint: Rebeka's nephew states that 15 minutes ago they were at [facility] aj1 when she started having left sided weakness, facial droop, numbness to the left side, vomiting. They tried to give her a glass of water, but it just dribbled out the left side of her mouth. 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 Transition of care: patient was not received from another setting of care. An acute neurological deficit is present. The charge nurse has been notified. Onset of symptoms was August 24, 2017 at 11:05. Risk Assessment: Do you want to hurt yourself or someone else? Patient reports no desire to harm self or others. Initial Sepsis Screen: Does the patient meet any 2 criteria?. Care prior to arrival: None. 11:24 Method Of Arrival: Wheelchair aj1 11:24 Acuity: SARAI 2 aj1 11:56 Pre-hospital glucose is not applicable to this patient. Initial Sepsis Screen: Does the sv patient have a suspected source of infection? No. Patient's initial sepsis screen is negative. Triage Assessment: 11:28 The onset of the patients symptoms was August 24, 2017 at 11:05. General: Appears. Neuro: aj1 Garland Machine Operator are weak on left Facial droop on left, Reports dizziness, numbness in left side of face, left arm, left leg. Stroke Activation: Symptom onset < 3 hours Physician: Stroke Attending; Name: ; Notified At: ; Arrived At: Physician: Chief Stroke Resident; Name: ; Notified At: ; Arrived At: Physician: Stroke Resident; Name: ; Notified At: ; Arrived At: Physician: ED Attending; Name: Kristen; Notified At: 11:26; Arrived At: 11:26 Physician: ED Resident; Name: ; Notified At: ; Arrived At: Historical: - Allergies: 11:28 No Known Allergies; aj1 - Home Meds: 12:16 metformin 1,000 mg oral tab 2 times per day [Active]; glimepiride 4 mg Oral tab 1 tab sv once daily [Active]; lisinopril 20 mg Oral tab 1 tab once daily [Active]; lovastatin 10 mg Oral tab 1 tab once daily [Active]; aspirin 81 mg Oral chew 1 tab once daily [Active]; - PMHx: 11:28 Diabetes - NIDDM; Hypertension; TIA; aj1 - PSHx: 12:16 brain surgery with clips; sv - Immunization history:: Adult Immunizations up to date. - Social history:: Smoking status: Patient/guardian denies using tobacco, Patient/guardian denies using alcohol, street drugs, The patient lives The patient lives with family. - Ebola Screening: : Patient denies travel to an Ebola-affected area in the 21 days before illness onset. - Family history:: not pertinent. Screenin:51 Abuse screen: Denies threats or abuse. Denies injuries from another. Nutritional sv screening: No deficits noted. Tuberculosis screening: No symptoms or risk factors identified. Fall Risk None identified. Assessment: 11:22 Reassessment: Code stroke called, patient taken to CT by ELIAS Arreola. aj1 11:35 T-PA (Activase) Screening: Indications: Definite evidence of stroke, ischemic, embolic, sv or hypertensive: Yes. Treatment will start within 4.5 hours onset of symptoms: Yes. No evidence of intracranial hemorrhage or CT of head and no evidence of peripheral hemorrhage or recent CVA: No. General: Appears in no apparent distress. uncomfortable, well developed, Behavior is calm, cooperative, appropriate for age. Pain: Complains of pain in left frontal area, left side of the back of head, left side of forehead, left temporal area, left occipital area, left mandaen, left ear and left base of the skull Pain currently is 5 out of 10 on a pain scale. Pain began 1105 Is continuous. Neuro: Level of Consciousness is awake, alert, obeys commands, Oriented to person, place, time, situation, Garland Machine Operator are equal bilaterally Moves all extremities. Gait is steady, Speech is slurred, Facial droop on left, Reports dizziness, headache in left that is the "worst ever", numbness in left side of forehead, left eye, left mandaen, left ear, left side of the nose, left zygomatic area, left cheek, left mandible, left arm and left leg. Cardiovascular: Patient's skin is warm and dry. Pulses are 3+ in right radial artery and left radial artery Rhythm is sinus rhythm. Respiratory: Respiratory effort is even, unlabored, Respiratory pattern is regular, symmetrical. GI: Reports nausea, vomiting. EENT: Sclera/Cornea are reddened in right eye and left eye. Derm: Skin is pink, warm \\T\\ dry. 11:51 Patient has been NPO before screening. The patient is alert, and able to follow commands. The patient exhibits slurred or garbled speech. Provider notified of the indication for Speech Therapy consult. The patient is not exhibiting difficulty speaking. The patient does not exhibit difficulty understanding words. The patient is able to swallow own secretions with no drooling or need for suction. The patient did not tolerate one teaspoon of water. Drooling, immediate coughing, gurgling, or clearing of the throat was noted. Bedside swallow screening discontinued. Patient kept NPO until cleared by Speech Therapy or Physician. The patient failed the bedside swallow screening. The patient will be kept NPO until cleared by Speech Therapy or Physician. Provider notified of bedside swallow screening results: Irma Matos MD. 12:05 Reassessment: No changes from previously documented assessment. Patient and/or family sv updated on plan of care and expected duration. Pain level reassessed. Patient is alert, oriented x 3, equal unlabored respirations, skin warm/dry/pink. 12:20 Reassessment: Pt reports now that she's been having headaches and numbness to her sv extremities for a few months that have been intermittent. Pt stated today that her headache was worse today than any other headache. 13:08 Reassessment: No changes from previously documented assessment. Patient and/or family sv updated on plan of care and expected duration. Pain level reassessed. Patient is alert, oriented x 3, equal unlabored respirations, skin warm/dry/pink. 13:28 Reassessment: Report given to [facility] Vital Signs: 11:45 BP 132 / 61; Pulse 66; Resp 22; Temp 98.7; Pulse Ox 96% ; Pain 0/10; sv 12:16 BP 126 / 55; Pulse 80; Resp 19; Pulse Ox 97% ; sv 12:25 Weight 77.11 kg; ss 13:09 BP 123 / 61; Pulse 93; Resp 20; Pulse Ox 97% ; sv [place] Coma Score: 12:23 Eye Response: spontaneous(4). Verbal Response: oriented(5). Motor Response: obeys ma2 commands(6). Total: 15. NIH Stroke Scale Scores: 11:51 NIHSS Score: 3 sv 12:23 NIHSS Score: 3 ma2 ED Course: 11:22 Patient arrived in ED. sb2 11:22 None, None is Private Physician. sb2 11:[address] via wheelchair. sv 11:26 Nidia Contreras, is Private Physician. sb2 11:27 Triage completed. aj1 11:30 Patient moved back from CT. sv 11:30 Patient has correct armband on for positive identification. Placed in gown. Bed in low sv position. Call light in reach. Adult w/ patient. printing mechanist on. Pulse ox on. NIBP on. Door closed. Head of bed elevated. 11:30 Arm band placed on right wrist. Patient placed in an exam room, on a stretcher. sv 11:33 Initial lab(s) drawn, by me, sent to lab. Inserted saline lock: 20 gauge in right sv antecubital area, using aseptic technique. Blood collected. Flushed right antecubital with 5 ml normal saline. 11:38 CT Stroke Brain w/o Contrast In Process Unspecified. EDMS 11:48 Irma Matos MD is Attending Physician. ma2 11:49 Julieta Dominguez, ELIAS is Primary Nurse. sv 11:50 X-ray(s) taken. sv 11:53 EKG done, by ED staff, reviewed by Irma Matos MD. sv 11:54 Stroke CXR 1 View In Process Unspecified. EDMS 12:23 initiated transfer with Steph from [facility]. eb 12:40 connected the stroke team from [facility] with ED doc for patient transfer eb consultation. 13:19 No provider procedures requiring assistance completed. Patient transferred, IV remains sv in place. intact. Administered Medications: 12:05 Drug: TORadol 30 mg Route: IVP; Site: right antecubital; sv 12:15 Follow up: Response: No adverse reaction sv 12:09 Drug: NS 0.9% 1000 ml Route: IV; Rate: 1 bolus; Site: right antecubital; sv 13:00 Follow up: Response: No adverse reaction; IV Status: Completed infusion; IV Intake: sv 1000ml 12:09 Drug: Reglan 10 mg Route: IVP; Site: right antecubital; sv 12:15 Follow up: Response: No adverse reaction sv Point of Care Testing: Blood Glucose: 11:33 Blood Glucose: 100 mg/dL; sv Ranges: Intake: 13:00 IV: 1000ml; Total: 1000ml. sv Outcome: 12:39 ER care complete, transfer ordered by MD. ramirez 12:46 ER care complete, transfer ordered by MD. ramirez 13:00 Transferred by helicopter to [facility], Transfer form completed. X-rays sent sv w/ patient. Note: Report given to Naman GRIFFIN 13:00 Condition: stable 13:00 Instructed on the need for transfer. 13:35 Patient left the ED. sv NIH Stroke Scale - NIH Stroke Score Date: 08/24/2017 Time: 11:51 Total Score = 3 1a. Level of Consciousness (LOC) - 0(Alert) 1b. Level of Consciousness (LOC) (Year \\T\\ Age) - 0(Both) 1c. LOC Commands (Open \\T\\ Closes Eyes/Mysql Developer) - 0(Both) 2. Best Gaze (Lateral Gaze Paresis) - 0(Normal) 3. Visual Field Loss - 0(No visual loss) 4. Facial Palsy - 1(Minor Paralysis) 5a. Left Arm: Motor (10-second hold) - 0(No drift) 5b. Right Arm: Motor (10-second hold) - 0(No drift) 6a. Left Leg: Motor (5-second hold - always test supine) - 0(No drift) 6b. Right Leg: Motor (5-second hold - always test supine) - 0(No drift) 7. Limb Ataxia (finger/nose \\T\\ heel/sevilla - test with eyes open) - 0(Absent) 8. Sensory Loss (pinprick arms/legs/face) - 1(Mild to moderate loss) 9. Best Language: Aphasia (description/naming/reading) - 0(No aphasia) 10. Dysarthria (speech clarity - read or repeat words) - 1(Mild to Moderate) 11. Extinction and Inattention (visual/tactile/auditory/spatial/personal) - 0(No abnormality) Initials: jd NIH Stroke Scale - NIH Stroke Score Date: 08/24/2017 Time: 12:23 Total Score = 3 1a. Level of Consciousness (LOC) - 0(Alert) 1b. Level of Consciousness (LOC) (Year \\T\\ Age) - 0(Both) 1c. LOC Commands (Open \\T\\ Closes Eyes/Mysql Developer) - 0(Both) 2. Best Gaze (Lateral Gaze Paresis) - 0(Normal) 3. Visual Field Loss - 0(No visual loss) 4. Facial Palsy - 1(Minor Paralysis) 5a. Left Arm: Motor (10-second hold) - 1(Drift) 5b. Right Arm: Motor (10-second hold) - 0(No drift) 6a. Left Leg: Motor (5-second hold - always test supine) - 0(No drift) 6b. Right Leg: Motor (5-second hold - always test supine) - 0(No drift) 7. Limb Ataxia (finger/nose \\T\\ heel/sevilla - test with eyes open) - 0(Absent) 8. Sensory Loss (pinprick arms/legs/face) - 0(Normal) 9. Best Language: Aphasia (description/naming/reading) - 0(No aphasia) 10. Dysarthria (speech clarity - read or repeat words) - 1(Mild to Moderate) 11. Extinction and Inattention (visual/tactile/auditory/spatial/personal) - 0(No abnormality) Initials: ma2 Signatures: Dispatcher [employer] Dennise Girard RN RN aj1 Julieta Dominguez RN RN sv Smirch, Shelby, RN RN ss Alzahri, Mohammad, MD MD ma2 Juanita Waggoner Elizabeth eb Corrections: (The following items were deleted from the chart) 12:16 11:28 Home Meds: metformin 500 mg Oral tab 1 tab TID; alvarado miles
--- NOTE | 2017-08-24 12:40 | EDPHYS ---
Physician Documentation [facility] Name: Lorri Dotson Age: 67 yrs Sex: Female : 1950 Arrival Date: 08/24/2017 Time: 11:22 Bed 2 Private MD: Nidia Contreras H; None, None ED Physician Irma Matos HPI: 08/24 12:23 This 67 yrs old Female presents to ER via Wheelchair with complaints of S/S of ma2 Possible Stroke. 12:23 The patient's problem is reported as altered mental status, a facial droop, ma2 paresthesias, in left upper extremity, in left lower extremity, in left side of face, weakness, slurred speech . Onset: The symptoms/episode began/occurred suddenly, 0.5 hour(s) ago. Duration: This was a single incident. Context: the episode(s) was witnessed, by family, sister, son. Associated signs and symptoms: Pertinent positives: headache, nausea. Severity of symptoms: At their worst the symptoms were severe in the emergency department the symptoms are unchanged. 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 patient also passed out and regained consciousness spontaneously.. . Historical: - Allergies: 11:28 No Known Allergies; aj1 - Home Meds: 12:16 metformin 1,000 mg oral tab 2 times per day [Active]; glimepiride 4 mg Oral tab 1 tab sv once daily [Active]; lisinopril 20 mg Oral tab 1 tab once daily [Active]; lovastatin 10 mg Oral tab 1 tab once daily [Active]; aspirin 81 mg Oral chew 1 tab once daily [Active]; - PMHx: 11:28 Diabetes - NIDDM; Hypertension; TIA; aj1 - PSHx: 12:16 brain surgery with clips; sv - Immunization history:: Adult Immunizations up to date. - Social history:: Smoking status: Patient/guardian denies using tobacco, Patient/guardian denies using alcohol, street drugs, The patient lives The patient lives with family. - Ebola Screening: : Patient denies travel to an Ebola-affected area in the 21 days before illness onset. - Family history:: not pertinent. ROS: 12:23 Neuro: Positive for headache, syncope, tingling, weakness, gradual moderate headache . ma2 12:23 All other systems are negative. ma2 12:39 Constitutional: Negative for fever, chills, and weight loss. ma2 Exam: 12:23 Radiologist reports: wnl ma2 12:23 Constitutional: This is a well developed, well nourished patient who is awake, alert, and in no acute distress. Eyes: Pupils equal round and reactive to light, extra-ocular motions intact. Lids and lashes normal. Conjunctiva and sclera are non-icteric and not injected. Cornea within normal limits. Periorbital areas with no swelling, redness, or edema. ENT: Nares patent. No nasal discharge, no septal abnormalities noted. Tympanic membranes are normal and external auditory canals are clear. Oropharynx with no redness, swelling, or masses, exudates, or evidence of obstruction, uvula midline. Mucous membranes moist. Chest/axilla: Normal chest wall appearance and motion. Nontender with no deformity. No lesions are appreciated. Cardiovascular: Regular rate and rhythm with a normal S1 and S2. No gallops, murmurs, or rubs. Normal PMI, no JVD. No pulse deficits. Abdomen/GI: Soft, non-tender, with normal bowel sounds. No distension or tympany. No guarding or rebound. No evidence of tenderness throughout. 12:23 Neuro: Orientation: to person, place, time \T\ situation. Mentation: is normal, Memory: is normal, Cranial nerves: Speech is slurred, mild left facial droop sparing forehead and decreased sensation on left face , Motor: moves all fours, strength is 4/5 in the left hand and left arm, all other 5/5 , Sensation: numbness, that is moderate, of the face, left arm and left leg, tingling, that is moderate. Vital Signs: 11:45 BP 132 / 61; Pulse 66; Resp 22; Temp 98.7; Pulse Ox 96% ; Pain 0/10; sv 12:16 BP 126 / 55; Pulse 80; Resp 19; Pulse Ox 97% ; sv 12:25 Weight 77.11 kg; ss 13:09 BP 123 / 61; Pulse 93; Resp 20; Pulse Ox 97% ; sv NIH Stroke Scale Scores: 11:51 NIHSS Score: 3 sv 12:23 NIHSS Score: 3 ma2 [place] Coma Score: 12:23 Eye Response: spontaneous(4). Verbal Response: oriented(5). Motor Response: obeys ma2 commands(6). Total: 15. MDM: 11:48 Patient medically screened. ma2 12:23 Differential diagnosis: CVA, TIA, patient is not a TPA candidate as she had prior ma2 intracranial bleeding. Data reviewed: vital signs, nurses notes, radiologic studies. Counseling: I had a detailed discussion with the patient and/or guardian regarding: the historical points, exam findings, and any diagnostic results supporting the discharge/admit diagnosis, the presence of at least one elevated blood pressure reading (>120/80) during this emergency department visit, lab results, radiology results, the need to transfer to another facility. Response to treatment: the patient's symptoms have markedly improved after treatment. ED course: given IVF and headache cocktail . 12:40 ED course: will emergently transfer for higher level of care as no neurology service ma2 oncall available in our facility today . 08/24 11:26 Order name: Basic Metabolic Panel; Complete Time: 12:43 08/24 12:44 Interpretation: Abnormal. ma2 08/24 11:26 Order name: CBC with Diff; Complete Time: 12:43 08/24 11:26 Order name: Protime (+inr); Complete Time: 12:43 08/24 11:26 Order name: Ptt, Activated; Complete Time: 12:43 08/24 11:26 Order name: CT Stroke Brain w/o Contrast; Complete Time: 11:49 08/24 11:26 Order name: Stroke CXR 1 View 08/24 11:26 Order name: EKG; Complete Time: 11:26 08/24 11:26 Order name: Accucheck; Complete Time: 11:48 08/24 11:26 Order name: Cardiac monitoring; Complete Time: 11:48 08/24 11:26 Order name: EKG - Nurse/Tech; Complete Time: 11:48 08/24 11:26 Order name: IV Saline Lock; Complete Time: 11:48 08/24 11:26 Order name: Labs collected and sent; Complete Time: 11:48 08/24 11:26 Order name: NPO; Complete Time: 11:48 sv 08/24 11:26 Order name: O2 Per Protocol; Complete Time: 11:49 sv 08/24 11:26 Order name: O2 Sat Monitoring; Complete Time: 11:49 sv 08/24 11:26 Order name: Stroke Swallow Screen; Complete Time: 11:50 sv Administered Medications: 12:05 Drug: TORadol 30 mg Route: IVP; Site: right antecubital; sv 12:15 Follow up: Response: No adverse reaction sv 12:09 Drug: NS 0.9% 1000 ml Route: IV; Rate: 1 bolus; Site: right antecubital; sv 13:00 Follow up: Response: No adverse reaction; IV Status: Completed infusion; IV Intake: sv 1000ml 12:09 Drug: Reglan 10 mg Route: IVP; Site: right antecubital; sv 12:15 Follow up: Response: No adverse reaction sv Point of Care Testing: Blood Glucose: 11:33 Blood Glucose: 100 mg/dL; sv Ranges: Critical Glucose Levels:Adult <50 mg/dl or >400 mg/dl <40 mg/dl or >180 mg/dl Disposition: 08/24/17 12:46 Transfer ordered to [facility]. Diagnosis is Cerebral infarction. - Reason for transfer: Higher level of care. - Accepting physician is Kareem Mckeon . - Condition is Critical. - Problem is new. - Symptoms are unchanged. Critical care time excluding procedures: 12:45 Critical care time: Bedside Care: 20 minutes, Consultation: 10 minutes, Family ma2 Intervention: 10 minutes. Total time: 40 minutes NIH Stroke Scale - NIH Stroke Score Date: 08/24/2017 Time: 11:51 Total Score = 3 1a. Level of Consciousness (LOC) - 0(Alert) 1b. Level of Consciousness (LOC) (Year \T\ Age) - 0(Both) 1c. LOC Commands (Open \T\ Closes Eyes/Filler Shredding Machine Loader) - 0(Both) 2. Best Gaze (Lateral Gaze Paresis) - 0(Normal) 3. Visual Field Loss - 0(No visual loss) 4. Facial Palsy - 1(Minor Paralysis) 5a. Left Arm: Motor (10-second hold) - 0(No drift) 5b. Right Arm: Motor (10-second hold) - 0(No drift) 6a. Left Leg: Motor (5-second hold - always test supine) - 0(No drift) 6b. Right Leg: Motor (5-second hold - always test supine) - 0(No drift) 7. Limb Ataxia (finger/nose \T\ heel/sevilla - test with eyes open) - 0(Absent) 8. Sensory Loss (pinprick arms/legs/face) - 1(Mild to moderate loss) 9. Best Language: Aphasia (description/naming/reading) - 0(No aphasia) 10. Dysarthria (speech clarity - read or repeat words) - 1(Mild to Moderate) 11. Extinction and Inattention (visual/tactile/auditory/spatial/personal) - 0(No abnormality) Initials: jd NIH Stroke Scale - NIH Stroke Score Date: 08/24/2017 Time: 12:23 Total Score = 3 1a. Level of Consciousness (LOC) - 0(Alert) 1b. Level of Consciousness (LOC) (Year \T\ Age) - 0(Both) 1c. LOC Commands (Open \T\ Closes Eyes/Filler Shredding Machine Loader) - 0(Both) 2. Best Gaze (Lateral Gaze Paresis) - 0(Normal) 3. Visual Field Loss - 0(No visual loss) 4. Facial Palsy - 1(Minor Paralysis) 5a. Left Arm: Motor (10-second hold) - 1(Drift) 5b. Right Arm: Motor (10-second hold) - 0(No drift) 6a. Left Leg: Motor (5-second hold - always test supine) - 0(No drift) 6b. Right Leg: Motor (5-second hold - always test supine) - 0(No drift) 7. Limb Ataxia (finger/nose \T\ heel/sevilla - test with eyes open) - 0(Absent) 8. Sensory Loss (pinprick arms/legs/face) - 0(Normal) 9. Best Language: Aphasia (description/naming/reading) - 0(No aphasia) 10. Dysarthria (speech clarity - read or repeat words) - 1(Mild to Moderate) 11. Extinction and Inattention (visual/tactile/auditory/spatial/personal) - 0(No abnormality) Initials: ma2 Signatures: Dispatcher [employer] Dennise Girard RN RN ajJulieta Wills RN RN Irma Matos MD MD ma2 Corrections: (The following items were deleted from the chart) 12:16 11:28 Home Meds: metformin 500 mg Oral tab 1 tab TID; aj1 sv 12:46 12:39 08/24/2017 12:39 Transfer ordered to Other Acute Care Facility. Diagnosis ma2 is Cerebral infarction. Reason for transfer: Higher level of care. Accepting physician is ching. Condition is Stable. Problem is new. Symptoms are unchanged. ma2 13:35 12:46 08/24/2017 12:46 Transfer ordered to [facility]. Diagnosis is Cerebral infarction. Reason for transfer: Higher level of care. Accepting physician is Kareem Mckeon . Condition is Critical. Problem is new. Symptoms are unchanged. ma2
--- NOTE | 2017-08-24 12:54 | RAD REPORT ---
EXAM DESCRIPTION: Nikki Single View08/24/2017 11:56 am CLINICAL HISTORY: Hypertension/code stroke COMPARISON: February 2016 FINDINGS: The lungs appear clear of acute infiltrate. The heart is normal size IMPRESSION: No acute abnormalities displayed
--- NOTE | 2017-08-25 06:50 | EKG ---
Test Date: 2017-08-24 Test Time: 11:53:22 Financial Recruiter: KIKI MEASUREMENT RESULTS: Intervals: Rate: 66 MT: 142 QRSD: 80 QT: 424 QTc: 444 [place]: P: 6 MT: 142 QRS: -6 T: 24 INTERPRETIVE STATEMENTS: Normal sinus rhythm Normal ECG Compared to ECG 09/27/2016 20:47:08 No significant changes Electronically Signed On 08-25-17 06:49:44 CDT by Tj Jones
== END 2017-08-24 13:35 | disposition short-term general hospital (02) ==
LOC: ER 11:20
DX: I63.9 Cerebral infarction, unspecified (principal); I10 Essential (primary) hypertension; R29.703 NIHSS score 3; E11.9 Type 2 diabetes mellitus without complications; Z79.82 Long term (current) use of aspirin
CPT/HCPCS: 36415; 70450; 71045; 80048; 82962; 85025; 85610; 85730; 93005; 96361; 96374; 96375; 99285; J2765; J7030

== ENCOUNTER 2018-04-21 12:38 | Observation (INO) | payer OTHER ==
--- OUTSIDE RECORDS SUMMARY | 2018-04-21 12:54 | XMS REPORT | Continuity of Care Document ---
:1950 Author Organization Interface Problems Problem Status Onset Classification Date Comments Source Date Reported Other specified 03/15/2018 [facility] disorders of brain [address] [place] [address] TIA Active [address] ESTEFANIA BILLING Active [address] POSSIBLE STROKE Active [address] LEFT POSTERIOR Active [facility] COMMUNICATING [address] [place] [address] ARTERY ANEU SAH (<span Resolved Problem 03/15/2018 [place] ID="[id number]"> [address] [place] [address] Confirmed</span>) LFLT TRANSFER Active [facility] [id number] [place] [address] SAH Active 017 Rehabilitation SAH Active [facility] Rehabilitation, [facility] Cerebral edema Active Problem 03/15/2018 [facility] DM (<span Resolved Problem 03/15/2018 [place] ID="[id number]"> [facility] Center Confirmed</span>) 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 (<span Active Problem 03/15/2018 [place] ID="[id number]"> [facility] Center Confirmed</span>) Hyperosmolality Active Problem 03/15/2018 [facility] and hypernatremia [facility] HTN (<span Active Problem 03/15/2018 [place] ID="[id number]"> Medical Center Confirmed</span>) Obstructive Active Problem 03/15/2018 [facility] hydrocephalus [facility] Acute and chronic Active Problem 03/15/2018 [facility] respiratory [facility] failure with hypoxia Intracerebral Active Problem 03/15/2018 [facility] hemorrhage, [facility] intraventricular Weakness 03/15/2018 [facility] Hyperlipidemia, 03/15/2018 [facility] unspecified [facility] Type 2 diabetes 03/15/2018 [facility] mellitus with Medical Center hyperglycemia Hypertensive 03/15/2018 [facility] chronic kidney [facility] disease with stage 1 through stage 4 chronic kidney disease, or unspecified chronic kidney disease Type 2 diabetes 03/15/2018 [facility] mellitus with [facility] Center diabetic chronic kidney disease Chronic kidney 03/15/2018 [facility] disease, stage 2 Medical Center 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 [facility] detention use of 03/15/2018 [facility] oral hypoglycemic Medical Center drugs NONTRAUMATIC Active [facility] SUBARACHNOID Medical Center HEMORRHAGE, UN NONTRAUMATIC Active [facility] HEMORRHAGE, U CEREBRAL ANEURYSM, Active [facility] NONRUPTURED [facility] TRANSIENT CEREBRAL Active [facility] ISCHEMIC ATTACK, [facility] UNSP Medications Medication Details Route Status Patient Ordering Order Source Instructions Provider Date Metformin 1,250 mg, PO, Active [facility] hydrochloride BID-Meals, # 180 2018 Medical 1000 MG Oral tab, 1 Center Tablet Refill(s), Pharmacy: [id number] Plavix 75 mg, Route: No Longer [facility] PO, Drug form: Active 2018 Medical TAB, Daily, Center Dosing Weight 77.273, kg, Start date: 08/26/17 9:00:00 CDT, Duration: 30 day, Stop date: 09/24/17 9:00:00 CDT Lovastatin 10 mg, Route: No Longer [facility] PO, Drug form: Active 2018 Medical TAB, Daily, Center Dosing Weight 77.273, kg, Start date: 08/26/17 9:00:00 CDT, Duration: 30 day, Stop date: 09/24/17 9:00:00 CDT Lipitor 10 mg, 1 tab, No Longer [facility] Route: PO, Drug Active 2018 Medical form: TAB, Center Bedtime, Start date: 08/25/17 21:00:00 CDT, Duration: 30 day, Stop date: 09/23/17 21:00:00 CDTNotes: (Same As: Lipitor) Metformin 1,500 mg, PO, No Longer [facility] hydrochloride BID-Meals, # 270 Active 2018 Medical 1000 MG Oral tab, 1 Center Tablet Refill(s), Pharmacy: [id number] clopidogrel 75 75 mg=1 tab, PO, Active [facility] mg oral tablet Daily, # 90 tab, 2018 Medical 1 Refill(s), Center Pharmacy: [id number] lisinopril 20 mg 20 mg=1 tab, PO, Active [place] oral tablet Daily, 0 2018 Medical Refill(s) Center Metformin 1,000 mg=1 tab, Inactive [place] hydrochloride PO, BID-Meals, # 2018 Medical 1000 MG Oral 30 tab, 0 [place] Tablet Refill(s) lovastatin 10 mg 10 mg=1 tab, PO, Active [place] oral tablet Daily, 0 2018 Medical Refill(s) Center glimepiride 4 MG 4 mg=1 tab, PO, Active [place] Oral Tablet Daily, 0 2018 Medical [Amaryl] Refill(s) Center Insulin Lispro 3 unit, 0.03 mL, No Longer [place] Route: SUB-Q, Active 2017 Medical Drug form: SOLN, Center Bedtime, Dosing Weight 77.273, kg, PRN Blood Glucose Results, Start date: 08/25/17 12:11:00 CDT, Duration: 30 day, Stop date: 09/24/17 12:10:00 CDTNotes: (Same as: Humalog ) Roll in palms of hands gently; Do not shake `vigorously. "Single Patient Use Only " WASTE: F/P - Black; E - Municipal Trash Bin Stable for 28 days at room temperature. Expires in days from Da te Glucagon 1 mg, Route: IM, No Longer [place] Drug form: Active 2018 Medical PDR/INJ, PRN, Center Dosing Weight 77.273, kg, PRN Blood Glucose Results, Start date: 08/25/17 12:11:00 CDT, Duration: 30 day, Stop date: 09/24/17 12:10:00 CDT Dextrose 50% 25 gm, 50 mL, No Longer [place] Syringe Route: IVP, Drug Active 2017 Medical Form: INJ, Center Dosing Weight 77.273, kg, PRN, PRN Blood Glucose Results, Start date: 08/25/17 12:11:00 CDT, Duration: 30 day, Stop date: 09/24/17 12:10:00 CDT Plavix 75 mg, 1 tab, No Longer [facility] Route: PO, Drug Active 2017 Medical form: TAB, Center Daily, Dosing Weight 77.273, kg, Start date: 08/25/17 12:00:00 CDT, Duration: 30 day, Stop date: 09/24/17 9:00:00 CDTNotes: (Same As: Plavix) Tylenol 650 mg, 2 tab, No Longer [place] Route: PO, Drug Active 2017 Medical form: TAB, Q6H, Center Dosing Weight 77.273, kg, PRN Pain Score 1-3, Start date: 08/25/17 0:45:00 CDT, Duration: 30 day, Stop date: 09/24/17 0:44:00 CDTNotes: Do not exceed 4 gm/day. (Same as: Tylenol) Saline Flush 10 ml, Route: No Longer [place] 0.9% MISC, Drug Form: Active 2018 Medical INJ, Dosing Center Weight 77.273, kg, Q12H, Start date: 08/24/17 21:00:00 CDT, Duration: 30 day, Stop date: 09/23/17 9:00:00 CDTNotes: (Same as: BD Posiflush) atorvastatin 80 mg, 1 tab, No Longer [facility] Route: PO, Drug Active 2017 Medical form: TAB, Center Bedtime, Dosing Weight 77.273, kg, Start date: 08/24/17 21:00:00 CDT, Duration: 30 day, Stop date: 09/22/17 21:00:00 CDTNotes: Same as Lipitor heparin 5,000 unit, 1 No Longer [place] mL, Route: Active 2018 Medical SUB-Q, Drug Center form: INJ, Q8H, Dosing Weight 77.273, kg, (For patients weighing Notes: porcine heparin Aspirin 81 MG 81 mg, 1 tab, No Longer [facility] Enteric Coated Route: PO, Drug Active 2018 Medical Tablet form: ECTAB, Center Q24H, Dosing Weight 77.273, kg, Start date: 08/24/17 15:00:00 CDT, Duration: 30 day, Stop date: 09/22/17 15:00:00 CDTNotes: Do not crush or chew. (Same As: Ecotrin) Saline Flush 10 ml, Route: No Longer [place] 0.9% MISC, Drug Form: Active 2018 Medical INJ, Dosing Center Weight 77.273, kg, PRN, PRN Line Flush, Start date: 08/24/17 14:44:00 CDT, Duration: 30 day, Stop date: 09/23/17 14:43:00 CDTNotes: (Same as: BD Posiflush) iodixanol 100 mL, Route: Inactive [place] IVP, Drug Form: 2018 Medical SOLN, kg, Center ONCALL, STAT, Start date: 08/24/17 14:16:00 CDT, Duration: 1 doses or times, Dose=2.2ml/kg, Max [id number] -- "To be infused by Radiology Staff ONLY" Saline Flush 10 mL, Route: No Longer [place] 0.9% IVP, Drug Form: Active 2018 Medical INJ, kg, PRN, Center PRN Line Flush, Start date: 08/24/17 14:05:00 CDT, Duration: 30 day, Stop date: 09/23/17 14:04:00 CDTNotes: (Same as: BD Posiflush) Ondansetron 4 MG 4 mg=1 tab, PO, Active [facility] Oral Tablet Q8H, PRN 2017 Medical [Zofran] Nausea/vomiting, Center X 10 day, # 30 tab, 0 Refill(s) pneumococcal 0.5 mL, Route: Inactive [facility] capsular IM, Drug Form: 2017 Medical polysaccharide [...] polysacchar Acetaminophen 1 tab, PO, Q6H, Active [facility] 300 MG / Codeine PRN Pain, X 15 2016 Medical Phosphate 30 MG day, # 60 tab, 0 Center Oral Tablet Refill(s) [Tylenol with Codeine #3] senna 8.6 mg 17.2 mg=2 tab, Active [facility] oral tablet PO, Bedtime, PRN 2017 Medical Constipation, X Center 10 day, # 20 tab, 0 Refill(s) Docusate Sodium 100 mg=1 cap, Active [place] 100 MG Oral PO, BID, # 28 2017 Medical Capsule [Colace] cap, 0 Refill(s) Center Saline Flush 10 ml, Route: No Longer [place] 0.9% IVP, Drug Form: Active 2017 Medical INJ, Dosing Center Weight 72.727, kg, Q12H, Start date: 06/19/16 21:00:00 CDT, Duration: 30 day, Stop date: 07/19/16 9:00:00 CDTNotes: Same as: BD Posiflush Sterile sennosides, ALF 8.6 mg, 1 tab, No Longer [place] Route: PO, Drug Active 2016 Medical Form: TAB, Center Dosing Weight 72.727, kg, Q12H, Start date: 06/19/16 21:00:00 CDT, Duration: 30 day, Stop date: 07/19/16 9:00:00 CDTNotes: (Same as: Senokot) Docusate 100 mg, 1 cap, No Longer [place] Route: PO, Drug Active 2016 Medical form: CAP, Q12H, Center Dosing Weight 72.727, kg, Start date: 06/19/16 21:00:00 CDT, Duration: 30 day, Stop date: 07/19/16 9:00:00 CDTNotes: (Same as: Colace) (Do Not Crush) Tylenol 650 mg, 2 tab, No Longer [place] Route: PO, Drug Active 2016 Medical form: TAB, Q6H, Center Dosing Weight 72.727, kg, PRN Pain Score 1-3, Start date: 06/19/16 19:10:00 CDT, Duration: 30 day, Stop date: 07/19/16 19:09:00 CDTNotes: Do not exceed 4 gm/day. (Same as: Tylenol) Insulin regular 8 unit, 0.08 mL, No Longer [place] Route: SUB-Q, Active 2016 Medical Drug form: [...] Glucagon 1 mg, Route: IM, No Longer [facility] Drug form: Active 2017 Medical PDR/INJ, PRN, Center Dosing Weight 72.727, kg, PRN Blood Glucose Results, Start date: 06/19/16 16:10:00 CDT, Duration: 30 day, Stop date: 07/19/16 16:09:00 CDT Dextrose 50% 25 gm, 50 mL, No Longer [facility] Syringe Route: IVP, Drug Active 2016 Medical Form: INJ, Center Dosing Weight 72.727, kg, PRN, PRN Blood Glucose Results, Start date: 06/19/16 16:10:00 CDT, Duration: 30 day, Stop date: 07/19/16 16:09:00 CDT potassium 2 pkt, Route: No Longer [facility] phosphate-sodium PO, Drug Form: Active 2017 [...] potassium 45 mmol, 15 mL, No Longer [facility] phosphate + Route: IVPB, Active 2017 Medical sodium chloride PRN, Dosing Center 0.9% INJ 250 mL Weight 72.727, kg, PRN Abnormal Lab Result, Start date: 06/19/16 13:36:00 CDT, Duration: 30 day, Stop date: 07/19/16 13:35:00 CDT, FOR ICU USE ONLYNotes: (Same as: K Phosphate.) 1 mMol phoshate has 1.47 mEq potassium Infuse over 4 hours Magnesium 2 gm, 50 mL, No Longer [place] Sulfate Route: IVPB, Active 2017 Medical Drug form: INJ, Center PRN, Dosing Weight 72.727, kg, PRN Abnormal Lab Result, Start date: 06/19/16 13:36:00 CDT, Duration: 30 day, Stop date: 07/19/16 13:35:00 CDT, FOR ICU USE ONLYNotes: WASTE: F/P - Sink; E - Municipal Trash Bin sodium phosphate 45 mmol, 15 mL, No Longer [place] + sodium Route: IVPB, Active 2016 Medical chloride 0.9% PRN, Dosing Center INJ 250 mL Weight 72.727, kg, PRN Abnormal Lab Result, Start date: 06/19/16 13:36:00 CDT, Duration: 30 day, Stop date: 07/19/16 13:35:00 CDT, FOR ICU USE ONLY Magnesium Oxide 800 mg, 2 tab, No Longer [place] Route: PO, Drug Active 2016 Medical form: TAB, PRN, Center Dosing Weight 72.727, kg, PRN Abnormal Lab Result, FOR ICU USE ONLY, Start date: 06/19/16 13:36:00 CDT, Duration: 30 day, Stop date: 07/19/16 13:35:00 CDTNotes: (Same as: Mag-Ox 400) Magnesium oxide [id number] elemental magnesium Dose=____mg magnesium oxide (___mg elemental [...] Carbonate 500 MG Route: PO, Drug Active 2017 Medical Chewable Tablet form: CHEWTAB, Center PRN, Dosing Weight 72.727, kg, PRN Abnormal Lab Result, FOR ICU USE ONLY, Start date: 06/19/16 13:36:00 CDT, Duration: 30 day, Stop date: 07/19/16 13:35:00 CDTNotes: (Same As: Sarah) Calcium Carbonate 500 nc=728 mg elemental calcium Dose= mg calcium carbonate ( mg elemental calcium) Calcium 1 gm, 10 mL, No Longer [facility] Gluconate Route: IVPB, Active 2017 Medical PRN, Dosing Center Weight 72.727, kg, PRN Abnormal Lab Result, Start date: 06/19/16 13:36:00 CDT, Duration: 30 day, Stop date: 07/19/16 13:35:00 CDT, FOR ICU USE ONLYNotes: WASTE: F/P - Sink; E - Municipal Trash Bin Sodium Chloride 1,000 mL, Rate: No Longer [facility] 0.154 MEQ/ML 75 ml/hr, Infuse Active 2016 Medical Injectable over: 13.3 hr, Center Solution Route: IV, Dosing Weight 72.727 kg, [...] Start date: 06/19/16 10:50:00 CDTNotes: (Same as: Aminta) MEDICATION WASTE Product Size: 4 mg Product Wasted: 0__ mg Naloxone 0.4 mg, 1 mL, Inactive [facility] Route: IVP, Drug 2016 Medical form: INJ, Center Q2MIN, Dosing Weight 72.727, kg, PRN Narcotic Reversal, Start date: 06/19/16 10:50:00 CDT, Duration: 8 doses or times, Stop date: Limited # of timesNotes: Same as Narcan Flumazenil 0.2 mg, 2 mL, Inactive [facility] Route: IVP, Drug 2016 Medical form: INJ, PRN, Center Dosing Weight 72.727, kg, PRN Benzodiazepine Reversal, Initial dose, Start date: 06/19/16 10:50:00 CDT, Duration: 1 day, Stop date: 06/20/16 10:49:00 CDTNotes: (Same as: Romazicon) Omnipaque 350 150 ml, Route: Inactive [facility] INTRAARTERIAL, 2017 Medical Dosing Weight Center 72.727, kg, ONCE, Start date: 06/19/16 10:26:00 CDT, Stop date: 06/19/16 10:26:00 CDT Lipitor PO, Daily, 0 Active [facility] Refill(s) 2017 [facility] Aspirin 325 mg, PO, 0 Active [facility] Refill(s) 2017 [facility] ceFAZolin 2 gm, 100 mL, Inactive [facility] Route: IVPB, 2017 Medical Drug form: INJ, Center PRE OP, Start date: 06/19/16 1:00:00 CDT, Duration: 1 day, Stop date: 06/20/16 0:59:00 CDTNotes: Same as: Ancef Acetaminophen 650 mg, PO, Q6H, Active [facility] PRN Pain Score 2017 Medical 1-5, 0 Refill(s) [place] Trazodone 50 mg=1 tab, PO, Active [facility] Hydrochloride 50 Bedtime, # 30 2017 Medical MG Oral Tablet tab, 0 Refill(s) Center Sodium Chloride 1 gm=1 tab, PO, Active [place] 1000 MG Oral Q6H, # 120 tab, 2017 Medical Tablet 0 Refill(s) Center polyethylene 17 gm, PO, Active [facility] glycol 3350 oral Daily, X 30 day, 2017 Medical powder for # 527 gm, 0 Center reconstitution Refill(s) Metformin 1,000 mg=1 tab, Active [facility] hydrochloride PO, BID, # 60 2017 Medical 1000 MG Oral tab, 0 Refill(s) Center Tablet Benadryl Maximum 1 appl, Route: No Longer [facility] Strength 2% TOP, QID, Drug Active 2016 Medical topical cream form: CRM, PRN Center as needed for itching, Start date: 03/24/16 12:08:00 ADVERTISING INSERTER, Duration: 30 day, Stop date: 04/23/16 12:07:00 CDT Eucerin Plus 1 appl, Route: No Longer [facility] topical lotion TOP, Drug Form: Active 2016 Medical LOT, Dosing Center Weight 75, kg, BID, PRN as needed for dry skin, Start date: 03/24/16 12:08:00 ADVERTISING INSERTER, Duration: 30 day, Stop date: 04/23/16 12:07:00 CDTNotes: (Same as: Cetaphil Lotion) Nimodipine 30 mg, 1 mL, No Longer [facility] Route: PO, Drug Active 2016 Medical form: SUSP, Center Q12H, Dosing Weight 90.009, kg, Start date: 03/22/16 21:00:00 ADVERTISING INSERTER, Duration: 30 day, Stop date: 04/21/16 9:00:00 CDTNotes: (Same as Nimodipine oral suspension 30mg/ml) Instill dose into NG tube and then flush with 30ml of NS emollients, 1 appl, Route: No Longer [facility] topical lotion TOP, Drug Form: Active 2017 Medical LOT, Dosing Center Weight 75, kg, BID, Start date: 03/21/16 20:00:00 ADVERTISING INSERTER, Duration: 30 day, Stop date: 04/20/16 8:00:00 CSTNotes: (Same as: Cetaphil Lotion) SMOG Enema 900 mL, Route: No Longer [facility] ID, Drug Form: Active 2017 Medical PEPITO, Dosing Center Weight 75, kg, Daily, PRN Constipation, Start date: 03/21/16 16:50:00 ADVERTISING INSERTER, Duration: 7 day, Stop date: 03/28/16 16:49:00 CSTNotes: Non formulary item saline for irrigation (1L bottle) 100 mL, mineral oil 100 mL, glycerine 100 mL. Dispense (300 ml) in 1L NS bottle Bisacodyl 10 mg, 1 supp, No Longer [place] Route: ID, Drug Active 2016 Medical form: SUPP, Center Daily, Dosing Weight 75, kg, PRN Constipation, Start date: 03/21/16 16:49:00 ADVERTISING INSERTER, Duration: 7 day, Stop date: 03/28/16 16:48:00 CSTNotes: (Same As: Dulcolax, Bisco-Lax) magnesium 150 ml, Route: No Longer [place] citrate 58.2 PO, Drug Form: Active 2017 Medical MG/ML Oral LIQ, Dosing Center Solution Weight 75, kg, Daily, PRN Constipation, Start date: 03/21/16 16:49:00 ADVERTISING INSERTER, Duration: 7 day, Stop date: 03/28/16 16:48:00 CSTNotes: (Same as: Citrate of Magnesia) Concentration: 1.745 gm / 30 mL mineral oil 30 ml, Route: Inactive [place] PO, Drug Form: 2017 Medical LIQ, Dosing Center Weight 75, kg, ONCE, Start date: 03/21/16 10:24:00 ADVERTISING INSERTER, Stop date: 03/21/16 10:24:00 ADVERTISING INSERTER Milk of Magnesia 30 ml, Route: Inactive [place] PO, Drug Form: 2017 Medical SUSP, Dosing Center Weight 75, kg, ONCE, Start date: 03/21/16 10:24:00 ADVERTISING INSERTER, Stop date: 03/21/16 10:24:00 CSTNotes: (Same as: Milk of Magnesia, MOM) Metformin 1,000 mg, 2 tab, No Longer [facility] Route: PO, Drug Active 2016 Medical form: TAB, BID, Center Dosing Weight 75, kg, Start date: 03/20/16 20:00:00 ADVERTISING INSERTER, Stop date: 04/19/16 8:00:00 CSTNotes: (Same as: Glucophage) Take with meal Nimodipine 60 mg, 2 mL, No Longer [facility] Route: PO, Drug Active 2016 Medical form: SUSP, Q8H, Center Dosing Weight 90.009, kg, Start date: 03/20/16 16:00:00 ADVERTISING INSERTER, Duration: 30 day, Stop date: 04/19/16 8:00:00 CSTNotes: (Same as Nimodipine oral suspension 30mg/ml) Instill dose into NG tube and then flush with 30ml of NS Trazodone 50 mg, 1 tab, No Longer [facility] Hydrochloride 50 Route: PO, Drug Active 2016 Medical MG Oral Tablet form: TAB, Center Bedtime, Dosing Weight 75, kg, Start date: 03/19/16 21:00:00 ADVERTISING INSERTER, Duration: 30 day, Stop date: 04/17/16 21:00:00 CSTNotes: (Same As: Desyrel) Metformin 500 mg, 1 tab, No Longer [facility] Route: PO, Drug Active 2016 Medical form: TAB, Center Breakfast, Dosing Weight 75, kg, Start date: 03/19/16 7:00:00 ADVERTISING INSERTER, Duration: 30 day, Stop date: 04/17/16 7:00:00 CSTNotes: (Same as: Glucophage) Take with meal Menthol 0.0044 1 appl, Route: No Longer [facility] MG/MG / Zinc TOP, BID, Drug Active 2016 Medical Oxide 0.2 MG/MG form: OINT, PRN Center Topical Ointment Diaper Rash, [Calmoseptine Start date: Ointment] 03/18/16 16:34:00 ADVERTISING INSERTER, Duration: 30 day, Stop date: 04/17/16 16:33:00 CSTNotes: (Same as: Calmoseptine) Insulin, Aspart, 2 unit, 0.02 mL, No Longer [facility] Human Route: SUB-Q, Active 2016 Medical Drug form: SOLN, Center Bedtime, Dosing Weight 75, kg, PRN Blood Glucose Results, Start date: 03/18/16 12:27:00 ADVERTISING INSERTER, Duration: 30 day, Stop date: 04/17/16 12:26:00 CSTNotes: Roll in palms of hands gently; Do not shake vigorously. (Same as: NovoLOG) "single patient use only" WASTE: F/P - Black; E - Municipal Trash Bin Stable for 28 days at room temperature. Expires in days from Da te Dextrose 50% 12.5 gm, 25 mL, No Longer [facility] Syringe Route: IVP, Drug Active 2016 Medical Form: INJ, Center Dosing Weight 75, kg, PRN, PRN Blood Glucose Results, Start date: 03/18/16 12:27:00 ADVERTISING INSERTER, Duration: 30 day, Stop date: 04/17/16 12:26:00 ADVERTISING INSERTER Glucagon 1 mg, Route: IM, No Longer [facility] Drug form: Active 2017 Medical PDR/INJ, PRN, Center Dosing Weight 75, kg, PRN Blood Glucose Results, Start date: 03/18/16 12:27:00 ADVERTISING INSERTER, Duration: 30 day, Stop date: 04/17/16 12:26:00 ADVERTISING INSERTER Insulin, Aspart, 4 unit, Route: Inactive [place] Human SUB-Q, ONCE, 2016 Medical Dosing Weight Center 75, kg, Start date: 03/15/16 22:18:00 ADVERTISING INSERTER, Stop date: 03/15/16 22:18:00 ADVERTISING INSERTER Insulin, Aspart, 4 unit, 0.04 mL, No Longer [facility] Human Route: SUB-Q, Active 2016 Medical Drug form: SOLN, Center ONCE, Dosing Weight 75, kg, Start date: 03/14/16 22:46:00 ADVERTISING INSERTER, Stop date: 03/14/16 22:46:00 CSTNotes: Roll in palms of hands gently; Do not shake vigorously. (Same as: NovoLOG) "single patient use only" WASTE: F/P - Black; E - Municipal Trash Bin Stable for 28 days at room temperature. Expires in days from Da te Cipro 500 mg, 1 tab, No Longer [facility] Route: PO, Drug Active 2016 Medical form: TAB, Center [id number], Dosing Weight 75, kg, Start date: 03/14/16 11:00:00 ADVERTISING INSERTER, Duration: 30 day, Stop date: 04/12/16 23:00:00 CSTNotes: May interfere w/enteral feedings - Take 1 hr before or 2 hrs after antacids, dairy pdt & minerals. On empty stomach. Melatonin 3 MG 6 mg, 2 tab, No Longer [facility] Extended Release Route: PO, Drug Active 2016 Medical Tablet Form: TAB, Center Dosing Weight 75, kg, Bedtime, Start date: 03/13/16 21:00:00 ADVERTISING INSERTER, Stop date: 04/11/16 21:00:00 CSTNotes: (Same as: Melatonin) NovoLOG FlexPen 5 unit, 0.05 mL, No Longer [facility] Route: SUB-Q, Active 2016 Medical Drug form: SOLN, Center TID-Meals, Start date: 03/13/16 12:00:00 ADVERTISING INSERTER, Stop date: 03/18/16 23:00:00 CSTNotes: Roll in [...] Weight 75, kg, Start date: 03/13/16 11:30:00 ADVERTISING INSERTER, Duration: 30 day, Stop date: 04/12/16 6:30:00 ADVERTISING INSERTER Insulin Glargine 15 unit, 0.15 No Longer [facility] mL, Route: Active 2016 Medical SUB-Q, Drug Center form: SOLN, Daily, Dosing Weight 75, kg, Start date: 03/13/16 11:30:00 ADVERTISING INSERTER, Stop date: 03/18/16 23:00:00 CSTNotes: Same as: Lantus) Do not hold insulin without contacting prescriber WASTE: F/P - Black; E - Municipal Trash Bin Glucagon 1 mg, Route: IM, Inactive [facility] PRN, Dosing 2017 Medical Weight 75, kg, Center PRN Blood Glucose Results, Start date: 03/13/16 10:07:00 ADVERTISING INSERTER, Duration: 30 day, Stop date: 04/12/16 10:06:00 ADVERTISING INSERTER Dextrose 50% 25 mL, Route: Inactive [facility] Syringe IVP, Dosing 2017 Medical Weight 75, kg, Center PRN, PRN Blood Glucose Results, Start date: 03/13/16 10:07:00 ADVERTISING INSERTER, Duration: 30 day, Stop date: 04/12/16 10:06:00 ADVERTISING INSERTER Melatonin 3 MG 3 mg, 1 tab, No Longer [place] Extended Release Route: PO, Drug Active 2016 Medical Tablet Form: TAB, Center Dosing Weight 90.009, kg, Bedtime, Start date: 03/12/16 21:00:00 ADVERTISING INSERTER, Duration: 30 day, Stop date: 04/10/16 21:00:00 CSTNotes: (Same as: Melatonin) Glucagon 1 mg, Route: IM, No Longer [place] Drug form: Active 2017 Medical PDR/INJ, PRN, Center Dosing Weight 75, kg, PRN Blood Glucose Results, Start date: 03/12/16 15:24:00 ADVERTISING INSERTER, Duration: 30 day, Stop date: 04/11/16 15:23:00 ADVERTISING INSERTER Dextrose 50% 25 gm, 50 mL, No Longer [place] Syringe Route: IVP, Drug Active 2016 Medical Form: INJ, Center Dosing Weight 75, kg, PRN, PRN Blood Glucose Results, Start date: 03/12/16 15:24:00 ADVERTISING INSERTER, Duration: 30 day, Stop date: 04/11/16 15:23:00 ADVERTISING INSERTER Insulin, Aspart, 10 unit, 0.1 mL, No Longer [place] Human Route: SUB-Q, Active 2016 Medical Drug form: SOLN, Center TID-Before Meals, Dosing Weight 75, kg, PRN Blood Glucose Results, Start date: 03/12/16 15:24:00 ADVERTISING INSERTER, Duration: 30 day, Stop date: 04/11/16 15:23:00 CSTNotes: Roll in palms of hands gently; Do not shake vigorously. (Same as: NovoLOG) "single patient use only" WASTE: F/P - Black; E - Municipal Trash Bin Stable for 28 days at room temperature. Expires in days from Da te sennosides, ALF 8.6 mg, 1 tab, No Longer [place] Route: PO, Drug Active 2016 Medical Form: TAB, Center Dosing Weight 90.009, kg, QNoon, Start date: 03/12/16 12:00:00 ADVERTISING INSERTER, Duration: 30 day, Stop date: 04/10/16 12:00:00 CSTNotes: (Same as: Senokot) Saline Flush 10 ml, Route: No Longer [place] 0.9% IVP, Drug Form: Active 2017 Medical INJ, Dosing Center Weight 90.009, kg, Q12H, Start date: 03/12/16 9:00:00 ADVERTISING INSERTER, Duration: 30 day, Stop date: 04/10/16 21:00:00 CSTNotes: (Same as: BD Posiflush) Keppra 500 mg, 1 tab, No Longer [place] Route: PO, Drug Active 2016 Medical form: TAB, Q12H, Center Dosing Weight 90.009, kg, Start date: 03/12/16 9:00:00 ADVERTISING INSERTER, Duration: 30 day, Stop date: 04/10/16 21:00:00 CSTNotes: (Same as:Keppra) Buspar 5 mg, 1 tab, No Longer [place] Route: PO, Drug Active 2016 Medical form: TAB, TID, Center Dosing Weight 90.009, kg, Start date: 03/12/16 8:00:00 ADVERTISING INSERTER, Stop date: 04/10/16 17:00:00 CSTNotes: (Same As: BuSpar) insulin, 40 unit, 0.4 mL, No Longer [place] isophane Route: SUB-Q, Active 2016 Medical Drug form: INJ, Center Q8H, Dosing Weight 90.009, kg, Start date: 03/12/16 8:00:00 ADVERTISING INSERTER, Duration: 30 day, Stop date: 04/11/16 0:00:00 CSTNotes: Roll in palms of hands gently; Do not shake vigorously. (Same as: Humulin N) Do not hold insulin without contacting prescriber WASTE: F/P - Black; E - Municipal Trash Bin Stable for 28 days at room temperature Expires in days from Da te Miralax 17 gm, 1 pkt, No Longer [place] Route: PO, Drug Active 2016 Medical form: PWDR, Center Daily, Dosing Weight 90.009, kg, Start date: 03/12/16 8:00:00 ADVERTISING INSERTER, Duration: 30 day, Stop date: 04/10/16 8:00:00 CSTNotes: Dissolve in 8 oz of water or juice. (Same as: Miralax) Docusate 100 mg, 1 cap, No Longer [place] Route: PO, Drug Active 2016 Medical form: CAP, BID, Center Dosing Weight 90.009, kg, Start date: 03/12/16 8:00:00 ADVERTISING INSERTER, Duration: 30 day, Stop date: 04/10/16 20:00:00 CSTNotes: (Same as: Colace) (Do Not Crush) Insulin, Aspart, 4 unit, 0.04 mL, Inactive [place] Human Route: SUB-Q, 2016 Medical Drug form: SOLN, Center TID-Before Meals, Dosing Weight 75, kg, PRN Blood Glucose Results, Start date: 03/12/16 3:15:00 ADVERTISING INSERTER, Duration: 30 day, Stop date: 04/11/16 3:14:00 CSTNotes: Roll in palms of hands gently; Do not shake vigorously. (Same as: NovoLOG) "single patient use only" WASTE: F/P - Black; E - Municipal Trash Bin Stable for 28 days at room temperature. Expires in days from Da te Dextrose 50% 25 gm, 50 mL, Inactive [place] Syringe Route: IVP, Drug 2016 Medical Form: INJ, Center Dosing Weight 75, kg, PRN, PRN Blood Glucose Results, Start date: 03/12/16 3:15:00 ADVERTISING INSERTER, Duration: 30 day, Stop date: 04/11/16 3:14:00 ADVERTISING INSERTER Glucagon 1 mg, Route: IM, Inactive [place] Drug form: 2017 Medical PDR/INJ, PRN, Center Dosing Weight 75, kg, PRN Blood Glucose Results, Start date: 03/12/16 3:15:00 ADVERTISING INSERTER, Duration: 30 day, Stop date: 04/11/16 3:14:00 ADVERTISING INSERTER Sodium Chloride 1 gm, 1 tab, No Longer [place] 1000 MG Oral Route: PO, Drug Active 2016 Medical Tablet form: TAB, Q6H, Center Dosing Weight 90.009, kg, Start date: 03/12/16 0:00:00 ADVERTISING INSERTER, Duration: 30 day, Stop date: 04/10/16 18:00:00 ADVERTISING INSERTER Nimodipine 60 mg, 2 mL, No Longer [place] Route: PO, Drug Active 2016 Medical form: SUSP, Q4H, Center Dosing Weight 90.009, kg, Start date: 03/12/16 0:00:00 ADVERTISING INSERTER, Duration: 30 day, Stop date: 04/10/16 20:00:00 CSTNotes: (Same as Nimodipine oral suspension 30mg/ml) Instill dose into NG tube and then flush with 30ml of NS heparin 5,000 unit, 1 No Longer [place] mL, Route: Active 2016 Medical SUB-Q, Drug Center form: INJ, Q8H, Dosing Weight 90.009, kg, Start date: 03/12/16 0:00:00 ADVERTISING INSERTER, Duration: 30 day, Stop date: 04/10/16 16:00:00 CSTNotes: porcine heparin Seroquel 25 mg, 1 tab, No Longer [place] Route: PO, Drug Active 2016 Medical form: TAB, BID, Center Dosing Weight 90.009, kg, PRN Agitation, Start date: 03/11/16 21:52:00 ADVERTISING INSERTER, Duration: 30 day, Stop date: 04/10/16 21:51:00 CSTNotes: (Same as: SEROquel) Tylenol 650 mg, 20.3 mL, No Longer [place] Route: PO, Drug Active 2016 Medical form: LIQ, Q4H, Center Dosing Weight 90.009, kg, PRN Pain Score 1-5, Start date: 03/11/16 21:52:00 ADVERTISING INSERTER, Stop date: 04/10/16 21:51:00 CSTNotes: Max acetaminophen=40 00mg/day (4 gm/day). (Same as: Tylenol) Saline Flush 10 ml, Route: No Longer [place] 0.9% IVP, Drug Form: Active 2017 Medical INJ, Dosing Center Weight 90.009, kg, PRN, PRN Line Flush, Start date: 03/11/16 21:52:00 ADVERTISING INSERTER, Duration: 30 day, Stop date: 04/10/16 21:51:00 CSTNotes: (Same as: BD Posiflush) POLYETHYLENE PO, Daily, 0 Active [place] GLYCOL [id number] Refill(s) 2017 Medical Center Levetiracetam 500 mg=5 mL, PO, Active [place] 100 MG/ML Oral Q12H, 0 2016 Medical Solution Refill(s) [place] insulin isophane 40 unit, SUB-Q, Active [place] (NPH) 100 Q8H, 0 Refill(s) 2017 Medical units/mL human Center recombinant subcutaneous suspension heparin 5,000 unit=1 mL, Active [place] SUB-Q, Q8H, 0 2016 Medical Refill(s) [place] bisacodyl 10 mg 10 mg=1 supp, Active [place] rectal ID, ONCE, PRN 2017 Medical suppository Constipation | Center once, 0 Refill(s) insulin, 40 unit, 0.4 mL, No Longer [place] isophane Route: SUB-Q, Active 2016 Medical Drug form: INJ, Center Q8H, Dosing Weight 90.009, kg, Start date: 03/10/16 16:00:00 ADVERTISING INSERTER, Duration: 30 day, Stop date: 04/09/16 8:00:00 CSTNotes: Roll in palms of hands gently; Do not shake vigorously. (Same as: Humulin N) Do not hold insulin without contacting prescriber WASTE: F/P - Black; E - Municipal Trash Bin Stable for 28 days at room temperature Expires in days from Da te Keppra 500 mg, 5 mL, No Longer [place] Route: PO, Drug Active 2016 Medical form: SOLN, Center Q12H, Dosing Weight 90.009, kg, Start date: 03/10/16 9:00:00 ADVERTISING INSERTER, Duration: 30 day, Stop date: 04/08/16 21:00:00 CSTNotes: Same as: Keppra Nimodipine 60 mg, 2 mL, No Longer [place] Route: NJ, Drug Active 2016 Medical form: SUSP, Q4H, Center Dosing Weight 90.909, kg, Start date: 03/10/16 0:00:00 ADVERTISING INSERTER, Duration: 30 day, Stop date: 04/08/16 20:00:00 CSTNotes: (Same as Nimodipine oral suspension 30mg/ml) Instill dose into NG tube and then flush with 30ml of NS Sodium Chloride 1 gm, 1 tab, No Longer [place] 1000 MG Oral Route: PO, Drug Active 2016 Medical Tablet form: TAB, Q6H, Center Dosing Weight 90.009, kg, Priority: NOW, Start date: 03/09/16 18:11:00 ADVERTISING INSERTER, Duration: 30 day, Stop date: 04/08/16 18:00:00 ADVERTISING INSERTER Ancef + sodium 2 gm, Route: Inactive [place] chloride 0.9% IVPB, ONCE, 2017 Medical INJ 100 mL Dosing Weight Center 90.009, kg, Start date: 03/08/16 10:55:00 ADVERTISING INSERTER, Duration: 1 doses or times, Stop date: 03/08/16 10:55:00 ADVERTISING INSERTER, Surgical Prophylaxis Only; For patients Notes: (Same As: Hermelinda Thomas) Cefazolin FOR IV SET ONLY MEDICATION WASTE Product Size: 1000 mg Product Wasted: ___ mg Sodium Chloride 1,000 mL, 1,000 Inactive [place] 0.154 MEQ/ML ml/hr, Infuse 2017 Medical Injectable Over: 1 hr, [place] Solution Route: IV, 1,000, Drug form: INJ, ONCE, Priority: STAT, Dosing Weight 90.009 kg, Start date: 03/08/16 6:25:00 ADVERTISING INSERTER, Duration: 1 doses or times, Stop date: 03/08/16 6:25:00 ADVERTISING INSERTER Sodium Chloride 250 mL, 250 Inactive [place] 0.154 MEQ/ML ml/hr, Infuse 2017 Medical Injectable Over: 1 hr, Center Solution Route: IV, 250, Drug form: INJ, ONCE, Priority: STAT, Dosing Weight 90.009 kg, Start date: 03/07/16 14:24:00 ADVERTISING INSERTER, Duration: 1 doses or times, Stop date: 03/07/16 14:24:00 ADVERTISING INSERTER Sodium Chloride 500 mL, 500 Inactive [place] 0.154 MEQ/ML ml/hr, Infuse 2017 Medical Injectable Over: 1 hr, Center Solution Route: IV, 500, Drug form: INJ, ONCE, Priority: STAT, Dosing Weight 90.009 kg, Start date: 03/06/16 7:54:00 ADVERTISING INSERTER, Duration: 1 doses or times, Stop date: 03/06/16 7:54:00 ADVERTISING INSERTER Sodium Chloride 500 mL, 500 Inactive [place] 0.154 MEQ/ML ml/hr, Infuse 2017 Medical Injectable Over: 1 hr, Center Solution Route: IV, 500, Drug form: INJ, ONCE, Priority: STAT, Dosing Weight 90.009 kg, Start date: 03/06/16 6:30:00 ADVERTISING INSERTER, Duration: 1 doses or times, Stop date: 03/06/16 6:30:00 ADVERTISING INSERTER Racepinephrine 11.25 mg, 0.5 Inactive [place] 22.5 MG/ML mL, Route: NEB, 2017 Medical Inhalant Drug Form: SOLN, Center Solution Dosing Weight 90.009, kg, RQ4H, Start date: 03/05/16 3:00:00 ADVERTISING INSERTER, Duration: 30 day, Stop date: 04/03/16 23:00:00 CSTNotes: (racepinephrine *2.25% inh 0.5ml SOLN) (Same as:S2) Dexamethasone 10 mg, 2.5 mL, Inactive [place] Route: IV, Drug 2016 Medical form: INJ, ONCE, Center Dosing Weight 90.009, kg, Start date: 03/05/16 0:42:00 ADVERTISING INSERTER, Stop date: 03/05/16 0:42:00 CSTNotes: Concentration: 4mg/ml Ondansetron 4 mg, 2 mL, Inactive [facility] Route: IVP, Drug 2016 Medical form: INJ, ONCE, Center Dosing Weight 90.009, kg, PRN Nausea & Vomiting, Start date: 03/04/16 17:03:00 CSTNotes: (Same as: Zofran) MEDICATION WASTE Product Size: 4 mg Product Wasted: ___ mg Flumazenil 0.2 mg, 2 mL, Inactive [place] Route: IVP, Drug 2016 Medical form: INJ, PRN, Center Dosing Weight 90.009, kg, PRN Benzodiazepine Reversal, Initial dose, Start date: 03/04/16 17:03:00 ADVERTISING INSERTER, Duration: 30 day, Stop date: 04/03/16 17:02:00 CSTNotes: (Same as: Romazicon) Naloxone 0.4 mg, 1 mL, Inactive [facility] Route: IVP, Drug 2016 Medical form: INJ, Center Q2MIN, Dosing Weight 90.009, kg, PRN Narcotic Reversal, Start date: 03/04/16 17:03:00 ADVERTISING INSERTER, Duration: 8 doses or times, Stop date: Limited # of timesNotes: Same as Narcan Labetalol 10 mg, 2 mL, Inactive [facility] Route: IVP, Drug 2016 Medical form: INJ, Center Q5Min, Dosing Weight 90.009, kg, PRN Elevated BP, Start date: 03/04/16 17:03:00 ADVERTISING INSERTER, Duration: 5 doses or times, Stop date: Limited # of times esmolol 10 mg, Route: Inactive [facility] IVP, Q5Min, 2017 Medical Dosing Weight Center 90.009, kg, PRN Other -See Comment, Start date: 03/04/16 17:03:00 ADVERTISING INSERTER, Duration: 5 doses or times, Stop date: Limited # of times Morphine 2 mg, 1 mL, Inactive [facility] Route: IVP, Drug 2016 Medical form: INJ, Center Q5Min, Dosing Weight 90.009, kg, PRN Pain Score 4-6, Start date: 03/04/16 17:03:00 ADVERTISING INSERTER, Duration: 5 doses or times, Stop date: Limited # of timesNotes: (Same as:MORPhine Sulfate) Omnipaque 300 150 ml, Route: Inactive [facility] INTRAARTERIAL, 2017 Medical Dosing Weight Center 90.009, kg, ONCE, Start date: 03/04/16 16:39:00 ADVERTISING INSERTER, Stop date: 03/04/16 16:39:00 ADVERTISING INSERTER Ampicillin 1 gm, Route: No Longer [facility] IVPB, Drug form: Active 2016 Medical PDR/INJ, ABXQ6H, Center Dosing Weight 90.009, kg, Start date: 03/04/16 8:00:00 ADVERTISING INSERTER, Duration: 30 day, Stop date: 04/03/16 2:00:00 CSTNotes: (Same as: Andriy) MEDICATION WASTE Product Size: 1000 mg Product Wasted: ___ mg Dulcolax 10 mg, 1 supp, No Longer [place] Laxative Route: ID, Drug Active 2016 Medical form: SUPP, Center ONCE, Dosing Weight 90.009, kg, PRN Constipation, Start date: 03/04/16 7:17:00 ADVERTISING INSERTER, onceNotes: (Same As: Dulcolax, Bisco-Lax) magnesium 300 ml, Route: Inactive [place] citrate 58.2 PO, Drug Form: 2017 Medical MG/ML Oral LIQ, Dosing Center Solution Weight 90.009, kg, ONCE, Start date: 03/03/16 10:52:00 ADVERTISING INSERTER, Stop date: 03/03/16 10:52:00 CSTNotes: (Same as: Citrate of Magnesia) Concentration: 1.745 gm / 30 mL Sodium Chloride 500 mL, 500 Inactive [place] 0.154 MEQ/ML ml/hr, Infuse 2017 Medical Injectable Over: 1 hr, Center Solution Route: IV, 500, Drug form: INJ, ONCE, Priority: STAT, Dosing Weight 90.009 kg, Start date: 03/03/16 8:37:00 ADVERTISING INSERTER, Duration: 1 doses or times, Stop date: 03/03/16 8:37:00 ADVERTISING INSERTER Sodium Chloride 500 mL, 500 Inactive [place] 0.154 MEQ/ML ml/hr, Infuse 2017 Medical Injectable Over: 1 hr, Center Solution Route: IV, 500, Drug form: INJ, ONCE, Priority: STAT, Dosing Weight 90.009 kg, Start date: 03/02/16 21:40:00 ADVERTISING INSERTER, Duration: 1 doses or times, Stop date: 03/02/16 21:40:00 ADVERTISING INSERTER Tylenol 650 mg, 20.3 mL, No Longer [place] Route: PO, Drug Active 2016 Medical form: LIQ, Q6H, Center Dosing Weight 90.009, kg, PRN Pain Score 1-3, Start date: 03/02/16 10:25:00 ADVERTISING INSERTER, Stop date: 04/01/16 10:24:00 CSTNotes: Max acetaminophen=40 00mg/day (4 gm/day). (Same as: Tylenol) Dulcolax 10 mg, 1 supp, No Longer [place] Laxative Route: ID, Drug Active 2016 Medical form: SUPP, Center ONCE, Dosing Weight 90.009, kg, PRN Other -See Comment, Start date: 03/02/16 9:14:00 ADVERTISING INSERTER, onceNotes: (Same As: Dulcolax, Bisco-Lax) Sodium Chloride 1,000 mL, 1,000 Inactive [place] 0.154 MEQ/ML ml/hr, Infuse 2017 Medical Injectable Over: 1 hr, Center Solution Route: IV, 1,000, Drug form: INJ, ONCE, Priority: STAT, Dosing Weight 90.009 kg, Start date: 03/02/16 9:04:00 ADVERTISING INSERTER, Duration: 1 doses or times, Stop date: 03/02/16 9:04:00 ADVERTISING INSERTER Dexamethasone 4 mg, 1 tab, Inactive [place] Route: NJ, Drug 2016 Medical form: TAB, Center Daily, Dosing Weight 90.009, kg, Start date: 03/02/16 9:00:00 ADVERTISING INSERTER, Stop date: 03/02/16 12:00:00 CSTNotes: Give with food. (Same As: Decadron) Zantac 150 mg, 10 mL, No Longer [place] Route: NJ, Drug Active 2016 Medical form: SYRP, Center Q12H, Start date: 03/01/16 21:00:00 ADVERTISING INSERTER, Duration: 30 day, Stop date: 03/31/16 9:00:00 CSTNotes: (Same as:Zantac) Take before or with meals Racepinephrine 11.25 mg, 0.5 No Longer [place] 22.5 MG/ML mL, Route: NEB, Active 2016 Medical Inhalant Drug Form: SOLN, Center Solution Dosing Weight 90.009, kg, RQ4H, STAT, Start date: 03/01/16 14:46:00 ADVERTISING INSERTER, Duration: 30 day, Stop date: 03/31/16 11:00:00 CSTNotes: (racepinephrine *2.25% inh 0.5ml SOLN) (Same as:S2) Albuterol 0.83 2.49 mg, 3 mL, No Longer [place] MG/ML Inhalant Route: NEB, Drug Active 2016 Medical Solution form: SOLN, Center RQ2H, Dosing Weight 90.009, kg, PRN Wheezing, Start date: 03/01/16 14:46:00 ADVERTISING INSERTER, Duration: 30 day, Stop date: 03/31/16 14:45:00 CSTNotes: SEE RT DOCUMENTATION (Same as: Proventil) Dulcolax 10 mg, 1 supp, No Longer [place] Laxative Route: ID, Drug Active 2016 Medical form: SUPP, Center ONCE, Dosing Weight 90.009, kg, PRN Constipation, Start date: 03/01/16 7:49:00 ADVERTISING INSERTER, onceNotes: (Same As: Dulcolax, Bisco-Lax) Fentanyl 1,000 microgram, No Longer [place] 20 mL, Rate: Active 2016 Medical Titrate, Start Center Dose: 50 microgram/hr, Titration: 25 microgram/hour every 15 minutes, Goal(s): RASS 0 to -1, Max Dose: 300 microgram/hr, Route: IV, Dosing Weight 90.009 kg, Total Volume: 20, Start date: 02/29/16 21:21:00 C... Dexamethasone 4 mg, 1 tab, No Longer [place] Route: NJ, Drug Active 2016 Medical form: TAB, Q12H, Center Dosing Weight 90.909, kg, Start date: 02/29/16 21:00:00 ADVERTISING INSERTER, Stop date: 03/01/16 23:54:00 CSTNotes: Give with food. (Same As: Decadron) insulin, 50 unit, 0.5 mL, No Longer [place] isophane Route: SUB-Q, Active 2016 Medical Drug form: INJ, Center Q8H, Dosing Weight 90.009, kg, Start date: 02/29/16 16:00:00 ADVERTISING INSERTER, Stop date: 03/30/16 8:00:00 CSTNotes: Roll in palms of hands gently; Do not shake vigorously. (Same as: Humulin N) Do not hold insulin without contacting prescriber WASTE: F/P - Black; E - Municipal Trash Bin Stable for 28 days at room temperature Expires in days from Da te sodium chloride 1,000 mL, Rate: No Longer [place] 0.9% 1000 ml INJ 100 ml/hr, Active 2017 Medical 1,000 mL Infuse over: 10 Center hr, Route: IV, Dosing Weight 90.009 kg, Total Volume: 1,000, Start date: 02/29/16 10:01:00 ADVERTISING INSERTER, Stop date: 03/30/16 10:00:00 ADVERTISING INSERTER magnesium 300 ml, Route: Inactive [place] citrate 58.2 PO, Drug Form: 2016 Medical MG/ML Oral LIQ, Dosing Center Solution Weight 90.009, kg, ONCE, Start date: 02/29/16 9:24:00 ADVERTISING INSERTER, Stop date: 02/29/16 9:24:00 CSTNotes: (Same as: Citrate of Magnesia) Concentration: 1.745 gm / 30 mL Streptococcus 0.5 mL, Route: Inactive [place] pneumoniae IM, Drug Form: 2016 Medical serotype 1 INJ, Daily, Center capsular antigen Start date: diphtheria 02/29/16 9:00:00 [id number] protein ADVERTISING INSERTER, Duration: 1 conjugate doses or times, vaccine / Stop date: Streptococcus 02/29/16 9:00:00 pneumoniae CSTNotes: (Same serotype 14 as: Prevnar 13) capsular antigen diphtheria [id number] protein conjugate vaccine / Streptococcus pneumoniae serotype 18C capsular antigen d Miralax 17 gm, 1 pkt, No Longer [place] Route: PO, Drug Active 2016 Medical form: PWDR, Center Daily, Dosing Weight 90.009, kg, Start date: 02/29/16 9:00:00 ADVERTISING INSERTER, Duration: 30 day, Stop date: 03/29/16 9:00:00 CSTNotes: Dissolve in 8 oz of water or juice. (Same as: Miralax) Tylenol 650 mg, 20.3 mL, No Longer [place] Route: PO, Drug Active 2016 Medical form: LIQ, Q4H, Center Dosing Weight 90.009, kg, PRN Pain 1-3/Temp > 100.4 F, Start date: 02/29/16 5:47:00 ADVERTISING INSERTER, Stop date: 03/30/16 5:46:00 CSTNotes: Max acetaminophen=40 00mg/day (4 gm/day). (Same as: Tylenol) Sodium Chloride 500 mL, 500 No Longer [place] 0.154 MEQ/ML ml/hr, Infuse Active 2016 Medical Injectable Over: 1 hr, Center Solution Route: IV, 500, Drug form: INJ, ONCE, Priority: STAT, Dosing Weight 90.009 kg, Start date: 02/28/16 23:36:00 ADVERTISING INSERTER, Duration: 1 doses or times, Stop date: 02/28/16 23:36:00 ADVERTISING INSERTER Sodium Chloride 1,000 mL, 1,000 Inactive [place] 0.154 MEQ/ML ml/hr, Infuse 2017 Medical Injectable Over: 1 hr, Center Solution Route: IV, 1,000, Drug form: INJ, ONCE, Priority: STAT, Dosing Weight 90.009 kg, Start date: 02/28/16 22:21:00 ADVERTISING INSERTER, Duration: 1 doses or times, Stop date: 02/28/16 22:21:00 ADVERTISING INSERTER Insulin regular 9 unit, 0.09 mL, No Longer [place] Route: SUB-Q, Active 2016 Medical Drug form: SOLN, Center Sliding Scale, Dosing Weight 90.009, kg, PRN Blood Glucose Results, Start date: 02/28/16 10:21:00 ADVERTISING INSERTER, Duration: 30 day, Stop date: 03/29/16 10:20:00 [...] 50% 12.5 gm, 25 mL, No Longer [place] Syringe Route: IVP, Drug Active 2016 Medical Form: INJ, Center Dosing Weight 90.009, kg, PRN, PRN Blood Glucose Results, Start date: 02/28/16 10:21:00 ADVERTISING INSERTER, Duration: 30 day, Stop date: 03/29/16 10:20:00 ADVERTISING INSERTER Glucagon 1 mg, Route: IM, No Longer [place] Drug form: Active 2017 Medical PDR/INJ, PRN, Center Dosing Weight 90.009, kg, PRN Blood Glucose Results, Start date: 02/28/16 10:21:00 ADVERTISING INSERTER, Duration: 30 day, Stop date: 03/29/16 10:20:00 ADVERTISING INSERTER insulin, 30 unit, 0.3 mL, No Longer [place] isophane Route: SUB-Q, Active 2016 Medical Drug form: INJ, Center Q8H, Dosing Weight 90.009, kg, Start date: 02/28/16 9:00:00 ADVERTISING INSERTER, Duration: 30 day, Stop date: 03/29/16 8:00:00 CSTNotes: Roll in palms of hands gently; Do not shake vigorously. (Same as: Humulin N) Do not hold insulin without contacting prescriber WASTE: F/P - Black; E - Municipal Trash Bin Stable for 28 days at room temperature Expires in days from Da te Regular Insulin, 3 unit, 0.03 mL, Inactive [place] Human 100 UNT/ML Route: SUB-2016 Medical Injectable Drug form: SOLN, Center Solution PRN, Dosing Weight 90.009, kg, PRN Abnormal Lab Result, Start date: 02/28/16 6:56:00 ADVERTISING INSERTER, Duration: 30 day, Stop date: 03/29/16 6:55:00 CSTNotes: (Same as: Humulin R) Roll in palms of hands gently; Do not shake vigorously. "single patient use only" (Restricted to patients requiring a dose > 60 units) WASTE: F/P - Black; E - Municipal Trash Bin Stable for 28 days at room temperature Expires in days from Da te Dextrose 50% 6.25 gm, 12.5 Inactive [place] Syringe mL, Route: IVP, 2016 Medical Drug Form: INJ, Center Dosing Weight 90.009, kg, PRN, PRN Abnormal Lab Result, Start date: 02/28/16 6:56:00 ADVERTISING INSERTER, Duration: 30 day, Stop date: 03/29/16 6:55:00 ADVERTISING INSERTER heparin 5,000 unit, 1 No Longer [place] mL, Route: Active 2016 Medical SUB-Q, Drug Center form: INJ, Q8H, Dosing Weight 90.009, kg, Start date: 02/28/16 0:01:00 ADVERTISING INSERTER, Duration: 30 day, Stop date: 03/29/16 0:00:00 CSTNotes: porcine heparin Famotidine 20 mg, 1 tab, No Longer [place] Route: PO, Drug Active 2016 Medical form: TAB, Q12H, Center Dosing Weight 90.909, kg, Start date: 02/27/16 21:00:00 ADVERTISING INSERTER, Duration: 30 day, Stop date: 03/28/16 9:00:00 CSTNotes: (Same as: Pepcid) Levetiracetam 500 mg, 1 tab, No Longer [place] 500 MG Oral Route: PO, Drug Active 2016 Medical Tablet [Keppra] form: TAB, Q12H, Center Dosing Weight 90.009, kg, Start date: 02/27/16 21:00:00 ADVERTISING INSERTER, Duration: 30 day, Stop date: 03/28/16 9:00:00 CSTNotes: (Same as:Keppra) Dexamethasone 4 mg, 1 tab, No Longer [place] Route: PO, Drug Active 2016 Medical form: TAB, Q6H, Center Dosing Weight 90.909, kg, Start date: 02/27/16 12:00:00 ADVERTISING INSERTER, Duration: 30 day, Stop date: 03/28/16 6:00:00 CSTNotes: Give with food. (Same As: Decadron) chlorhexidine 15 mL, Route: No Longer [place] gluconate 1.2 Swab Mouth, Q4H, Active 2017 Medical MG/ML Mouthwash Drug form: LIQ, [place] Start date: 02/27/16 12:00:00 ADVERTISING INSERTER, Duration: 30 day, Stop date: 03/28/16 8:00:00 CSTNotes: (Same As: Peridex) Sodium Chloride 1,000 mL, 1,000 Inactive [place] 0.154 MEQ/ML ml/hr, Infuse 2017 Medical Injectable Over: 1 hr, [place] Solution Route: IV, 1,000, Drug form: INJ, ONCE, Priority: STAT, Dosing Weight 90.009 kg, Start date: 02/27/16 2:42:00 ADVERTISING INSERTER, Duration: 1 doses or times, Stop date: 02/27/16 2:42:00 ADVERTISING INSERTER Cefazolin 2 gm, Route: Inactive [place] IVPB, Drug form: 2016 Medical INJ, ABXQ8H, Center Dosing Weight 90.009, kg, Start date: 02/27/16 1:00:00 ADVERTISING INSERTER, Duration: 24 hr, Stop date: 02/27/16 17:00:00 CSTNotes: (Same As: Hermelinda Thomas) Cefazolin FOR IV SET ONLY MEDICATION WASTE Product Size: 1000 mg Product Wasted: _0_ mg sodium chloride 500 mL, Rate: 50 No Longer [place] 3% INJ 500 mL ml/hr, Infuse Active 2016 Medical over: 10 hr, Center Route: IV, Dosing Weight 90.009 kg, Total Volume: 500, Start date: 02/27/16 0:34:00 ADVERTISING INSERTER, Stop date: 03/28/16 0:33:00 CSTNotes: "Administer by [...] Weight 90.009 kg, Start date: 02/26/16 22:47:00 ADVERTISING INSERTER, Duration: 1 doses or times, Stop date: 02/26/16 22:47:00 ADVERTISING INSERTER Mannitol 100 gm, 500 mL, No Longer [place] Route: IVPB, Active 2016 Medical Drug form: INJ, Center ONCE, Dosing Weight 90.009, kg, Priority: NOW, Start date: 02/26/16 22:29:00 ADVERTISING INSERTER, Stop date: 02/26/16 22:29:00 CSTNotes: (Same as: Osmitrol) Infuse through 5 micron or smaller filter WASTE: F/P - Sink; E - Municipal Trash Bin chlorhexidine 15 mL, Route: No Longer [place] gluconate 1.2 Swab Mouth, Active 2016 Medical MG/ML Mouthwash Q12H, Drug form: Center LIQ, Start date: 02/26/16 21:00:00 ADVERTISING INSERTER, Duration: 30 day, Stop date: 03/27/16 9:00:00 CSTNotes: (Same As: Peridex) Calcium 1,000 mg, 2 tab, No Longer [place] Carbonate 500 MG Route: PO, Drug Active 2016 Medical Chewable Tablet form: CHEWTAB, Center PRN, Dosing Weight 90.009, kg, PRN Abnormal Lab Result, FOR ICU USE ONLY, Start date: 02/26/16 20:51:00 ADVERTISING INSERTER, Duration: 30 day, Stop date: 03/27/16 20:50:00 CSTNotes: (Same As: Tums) Calcium Carbonate 500 kv=344 mg elemental calcium Dose= mg calcium carbonate ( mg elemental calcium) Calcium 1 gm, 10 mL, No Longer [place] Gluconate Route: IVPB, Active 2016 Medical PRN, Dosing Center Weight 90.009, kg, PRN Abnormal Lab Result, Start date: 02/26/16 20:51:00 ADVERTISING INSERTER, Duration: 30 day, Stop date: 03/27/16 20:50:00 ADVERTISING INSERTER, FOR ICU USE ONLYNotes: WASTE: F/P - Sink; E - Municipal Trash Bin Magnesium 2 gm, 50 mL, No Longer [place] Sulfate Route: IVPB, Active 2016 Medical Drug form: INJ, Center PRN, Dosing Weight 90.009, kg, PRN Abnormal Lab Result, Start date: 02/26/16 20:51:00 ADVERTISING INSERTER, Duration: 30 day, Stop date: 03/27/16 20:50:00 ADVERTISING INSERTER, FOR ICU USE ONLYNotes: WASTE: F/P - Sink; E - Municipal Trash Bin potassium 2 pkt, Route: No Longer [place] phosphate-sodium PO, Drug Form: Active 2017 Medical phosphate 250 PDR/REC, Dosing Center mg-280 mg-160 mg Weight 90.009, oral powder for kg, PRN, PRN reconstitution Abnormal Lab Result, FOR ICU USE ONLY, Start date: 02/26/16 20:51:00 ADVERTISING INSERTER, Duration: 30 day, Stop date: 03/27/16 20:50:00 CSTNotes: (Same as: Phos-NaK) Each 1.5 gm pkt has 250mg phosphorous. Mix w/2.5oz water and stir. Magnesium Oxide 800 mg, 2 tab, No Longer [place] Route: PO, Drug Active 2016 Medical form: TAB, PRN, Center Dosing Weight 90.009, kg, PRN Abnormal Lab Result, FOR ICU USE ONLY, Start date: 02/26/16 20:51:00 ADVERTISING INSERTER, Duration: 30 day, Stop date: 03/27/16 20:50:00 CSTNotes: (Same as: Mag-Ox 400) Magnesium oxide [id number] elemental magnesium Dose=____mg magnesium oxide (___mg elemental magnesium) potassium 45 mmol, 15 mL, No Longer [place] phosphate + Route: IVPB, Active 2016 Medical sodium chloride PRN, Dosing Center 0.9% INJ 250 mL Weight 90.009, kg, PRN Abnormal Lab Result, Start date: 02/26/16 20:51:00 ADVERTISING INSERTER, Duration: 30 day, Stop date: 03/27/16 20:50:00 ADVERTISING INSERTER, FOR ICU USE ONLYNotes: (Same as: K Phosphate.) 1 mMol phoshate has 1.47 mEq potassium Infuse over 4 hours sodium phosphate 30 mmol, 10 mL, No Longer [place] + sodium Route: IVPB, Active 2016 Medical chloride 0.9% PRN, Dosing Center INJ 250 mL Weight 90.009, kg, PRN Abnormal Lab Result, Start date: 02/26/16 20:51:00 ADVERTISING INSERTER, Duration: 30 day, Stop date: 03/27/16 20:50:00 ADVERTISING INSERTER, FOR ICU USE ONLY potassium 20 mEq, 15 mL, No Longer [facility] chloride Route: [place], Drug Active 2016 Medical form: LIQ, PRN, Center Dosing Weight 90.009, kg, PRN Abnormal Lab Result, Start date: 02/26/16 20:51:00 ADVERTISING INSERTER, Duration: 30 day, Stop date: 03/27/16 20:50:00 ADVERTISING INSERTER, FOR ICU USE ONLYNotes: (Same as: Potassium Chloride) Dextrose 50% 12.5 gm, 25 mL, No Longer [place] Syringe Route: IVP, Drug Active 2016 Medical Form: INJ, Center Dosing Weight 90.009, kg, PRN, PRN Blood Glucose Results, Start date: 02/26/16 20:50:00 ADVERTISING INSERTER, Duration: 30 day, Stop date: 03/27/16 20:49:00 ADVERTISING INSERTER Insulin regular 99 mL, Rate: No Longer [place] 100 unit + Start Insulin Active 2016 Medical sodium chloride Drip Per ICU Center 0.9% INJ 99 mL Protocol, Dosing Weight 90.009, kg, Route: IVPB, Total Volume: 100, Start Date: 02/26/16 20:50:00 ADVERTISING INSERTER, Duration: 30 day, Stop date: 03/27/16 20:49:00 ADVERTISING INSERTER, Replace Every: 24 hrNotes: (Same as: Humulin R and NovoLIN R) WASTE: F/P - Black; E - Municipal Trash Bin (Do not shake) Fentanyl 1,000 microgram, No Longer [place] 20 mL, Rate: Active 2016 Medical Titrate, Start Center Dose: 50 microgram/hr, Titration: 25 microgram/hour every 15 minutes, Goal(s): RASS 0 to -1, Max Dose: 300 microgram/hr, Route: IV, Dosing Weight 90.009 kg, Total Volume: 20, Start date: 02/26/16 20:48:00 C... Dilaudid 0.5 mg, 0.25 mL, No Longer [place] Route: IV, Drug Active 2016 Medical form: INJ, Q3H, Center Dosing Weight 90.009, kg, PRN Pain Score 7-10, Start date: 02/26/16 18:52:00 ADVERTISING INSERTER, Duration: 30 day, Stop date: 03/27/16 18:51:00 CSTNotes: Same as Dilaudid Acetaminophen 1 tab, Route: No Longer [place] 325 MG / PO, Drug Form: Active 2017 Medical Hydrocodone TAB, Dosing Center Bitartrate 10 MG Weight 90.009, Oral Tablet kg, Q4H, PRN [[place] 10/325] Pain Score 4-6, Start date: 02/26/16 18:52:00 ADVERTISING INSERTER, Duration: 30 day, Stop date: 03/27/16 18:51:00 CSTNotes: Do not exceed 4gm/day of acetaminophen. (Same as: [place] 325/10) Ancef 1 gm, Route: Inactive [place] IVPB, ONCE, 2016 Medical Dosing Weight Center 90.009, kg, Start date: 02/26/16 17:15:00 ADVERTISING INSERTER, Stop date: 02/26/16 17:15:00 ADVERTISING INSERTER Ancef 2 gm, Route: IV, Inactive [place] ONCE, Dosing 2017 Medical Weight 90.909, Center kg, Start date: 02/26/16 14:15:00 ADVERTISING INSERTER, Duration: 1 doses or times, Stop date: 02/26/16 14:15:00 ADVERTISING INSERTER, Surgical Prophylaxis Only; For patients Propofol 10 1,000 mg, 100 No Longer [place] MG/ML Injectable mL, Rate: Active 2016 Medical Suspension Titrate, Start Center Dose: 5 microgram/kg/min , Titration: 5 microgram/kg/min every 15 min, Goal(s): MAP 70-100, Max Dose: 50 microgram/kg/min , Route: IV, Dosing Weight 90.909 kg, Total Volume: 100, Start date: 02/26/16 11:59:00 ADVERTISING INSERTER,... Fentanyl 50 microgram, 1 Inactive [place] mL, Route: IV, 2016 Medical Drug form: INJ, Center ONCE, Dosing Weight 90.909, kg, PRN Pain Score 7-10, Start date: 02/26/16 11:58:00 ADVERTISING INSERTER, Pediatric Dosing; For procedure; > 50 kgNotes: (Same as: Sublimaze) Preservative free. chlorhexidine 15 mL, Route: No Longer [place] gluconate 1.2 Swab Mouth, PRN, Active 2016 Medical MG/ML Mouthwash Drug form: LIQ, [place] PRN Other -See Comment, Start date: 02/26/16 9:39:00 ADVERTISING INSERTER, Duration: 30 day, Stop date: 03/27/16 9:38:00 CSTNotes: (Same As: Peridex) Ancef + sodium 2 gm, Route: Inactive [place] chloride 0.9% IVPB, ONCE, 2016 Medical INJ 100 mL Dosing Weight Center 90.909, kg, Start date: 02/26/16 9:38:00 ADVERTISING INSERTER, Duration: 1 doses or times, Stop date: 02/26/16 9:38:00 ADVERTISING INSERTER, Surgical Prophylaxis Only; For patients Notes: (Same As: Ancef, Kefzol) MEDICATION WASTE Product Size: 1000 mg Product Wasted: ___ mg Docusate 100 mg, 10 mL, No Longer [place] Route: [place], Drug Active 2016 Medical form: LIQ, Q12H, Center Dosing Weight 90.909, kg, Start date: 02/26/16 9:00:00 ADVERTISING INSERTER, Stop date: 03/26/16 21:00:00 CSTNotes: (Same as: Colace) Famotidine 20 mg, 2 mL, No Longer [place] Route: IVP, Drug Active 2016 Medical form: INJ, Q12H, Center Dosing Weight 90.909, kg, Start date: 02/26/16 9:00:00 ADVERTISING INSERTER, Duration: 30 day, Stop date: 03/26/16 21:00:00 CSTNotes: (Same as: Pepcid) sennosides, ALF 8.8 mg, 5 mL, No Longer [place] Route: [place], Drug Active 2016 Medical Form: SYRP, Center Dosing Weight 90.909, kg, Q12H, Start date: 02/26/16 9:00:00 ADVERTISING INSERTER, Stop date: 03/26/16 21:00:00 CSTNotes: (Same as: Senokot) Levetiracetam 500 mg, Route: No Longer [place] IVPB, Q12H, Active 2016 Medical Dosing Weight Center 90.909, kg, Start date: 02/26/16 9:00:00 ADVERTISING INSERTER, Duration: 30 day, Stop date: 03/26/16 21:00:00 CSTNotes: Same as Keppra Mix with 100 mL NS, LR or D5W MEDICATION WASTE Product Size: 500 mg Product Wasted: ___ mg Omnipaque 350 150 ml, Route: Inactive [place] INTRAARTERIAL, 2016 Medical Dosing Weight Center 90.909, kg, ONCE, Start date: 02/26/16 8:56:00 ADVERTISING INSERTER, Stop date: 02/26/16 8:56:00 ADVERTISING INSERTER Nimodipine 30 mg, 1 mL, No Longer [place] Route: [place], Drug Active 2016 Medical form: SUSP, Q2H, Center Dosing Weight 90.909, kg, Start date: 02/26/16 6:00:00 ADVERTISING INSERTER, Stop date: 03/27/16 4:00:00 CSTNotes: (Same as Nimodipine oral suspension 30mg/ml) Instill dose into NG tube and then flush with 30ml of NS Dexamethasone 4 mg, 1 mL, No Longer [place] Route: IV, Drug Active 2016 Medical form: INJ, Q6H, Center Dosing Weight 90.909, kg, Start date: 02/26/16 6:00:00 ADVERTISING INSERTER, Duration: 30 day, Stop date: 03/27/16 0:00:00 CSTNotes: Concentration: 4mg/ml Keppra 500 mg, Route: Inactive [place] IV, ONCE, Dosing 2017 Medical Weight 90.909, Center kg, Start date: 02/26/16 5:39:00 ADVERTISING INSERTER, Stop date: 02/26/16 5:39:00 ADVERTISING INSERTER Ondansetron 4 mg, Route: Inactive [place] IVP, Drug form: 2017 Medical INJ, ONCE, Center Dosing Weight 90.909, kg, Priority: STAT, Start date: 02/26/16 5:31:00 ADVERTISING INSERTER, Stop date: 02/26/16 5:31:00 ADVERTISING INSERTER Morphine 4 mg, Route: Inactive [place] IVP, ONCE, 2017 Medical Dosing Weight Center 90.909, kg, Priority: STAT, Start date: 02/26/16 5:31:00 ADVERTISING INSERTER, Stop date: 02/26/16 5:31:00 ADVERTISING INSERTER Dextrose 50% 6.25 gm, 12.5 Inactive [place] Syringe mL, Route: IVP, 2017 Medical Drug Form: INJ, Center Dosing Weight 90.909, kg, PRN, PRN Abnormal Lab Result, Start date: 02/26/16 4:09:00 ADVERTISING INSERTER, Duration: 30 day, Stop date: 03/27/16 4:08:00 ADVERTISING INSERTER Regular Insulin, 3 unit, 0.03 mL, Inactive [place] Human 100 UNT/ML Route: SUB-Q, 2017 Medical Injectable Drug form: SOLN, Center Solution PRN, Dosing Weight 90.909, kg, PRN Abnormal Lab Result, Start date: 02/26/16 4:09:00 ADVERTISING INSERTER, Duration: 30 day, Stop date: 03/27/16 4:08:00 [...] Total Volume: 1,000, Start date: 02/26/16 4:09:00 ADVERTISING INSERTER, Duration: 30 day, Stop date: 03/27/16 4:08:00 ADVERTISING INSERTER iodixanol 100 mL, Route: Inactive [place] IVP, Drug Form: 2016 Medical SOLN, Dosing Center Weight 90.909, kg, ONCALL, STAT, Start date: 02/26/16 3:43:00 ADVERTISING INSERTER, Duration: 1 doses or times, Dose=2.2ml/kg, Max [id number] -- "To be infused by Radiology Staff ONLY" Saline Flush 10 mL, Route: No Longer [place] 0.9% IVP, Drug Form: Active 2016 Medical INJ, Dosing Center Weight 90.909, kg, PRN, PRN Line Flush, Start date: 02/26/16 2:46:00 ADVERTISING INSERTER, Duration: 30 day, Stop date: 03/27/16 2:45:00 CSTNotes: Same as: BD Posiflush Sterile Allergies, Adverse Reactions, Alerts Substance Category Reaction Severity Reaction Status Date Comments Source type Reported Immunizations Immunization Date Given Site Status Last Comments Source Updated pneumococcal 06/20/2016 Not Given [facility] 23-valent vaccine [facility] pneumococcal 06/20/2016 Not Given [facility] 23-valent Medical vaccine<sup>1</villar Center p> pneumococcal 03/03/2016 Right completed [facility] 13-valent vaccine Deltoid [facility] Results Order Name Results Value Reference Date Interpretation Comments Source Range CHEM PANEL Phosphorus 5.0 mg/dL 2.5 - 4.5 08/[address] CHEM PANEL Magnesium Lvl 2.1 mg/dL 1.8 - 2.4 08/[address] CHEM PANEL eGFR 76 08/26 Result Comment: The eGFR is calculated using the CKD-EPI formula. In most young, healthy individuals the eGFR will be >90 mL/ min/1.73m2. The eGFR declines with age. An eGFR of 60-89 may be normal in [facility] mL/min/1. some populations, particularly the elderly, for whom the CKD-EPI formula has not been extensively validated. Use of the eGFR is not recommended in the following populations: [address] Individuals with unstable creatinine concentrations, including [...] multiplied by the estimated BMI. CHEM PANEL Creatinine 0.81 mg/dL 0.50 - 08/26 [facility] Lvl 1. [facility] CHEM PANEL Glucose Lvl 132 mg/dL 70 - 99 08/[address] CHEM PANEL Sodium Lvl 140 meq/L 135 - 145 08/[address] CHEM PANEL Potassium Lvl 4.6 meq/L 3.5 - 5.1 08/[address] CHEM PANEL BUN 19 mg/dL 7 - 22 08/[address] CHEM PANEL CO2 25 meq/L 24 - 32 08/[address] CHEM PANEL Calcium Lvl 9.2 mg/dL 8.5 - 10.5 08/[address] CHEM PANEL Chloride Lvl 104 meq/L 95 - 109 08/[address] CHEM PANEL AGAP 15.6 meq/L 10.0 - 08/26 [facility] . [facility] HEMATOLOGY Monocytes 7.2 % 2.0 - 12.0 08/[address] HEMATOLOGY Segs 51.4 % 45.0 - 08/26 [facility] 75.0 [facility] HEMATOLOGY Lymphocytes 38.6 % 20.0 - 08/26 [facility] [place] 40.0 [facility] HEMATOLOGY Lymphocytes # 3.2 K/CMM 1.0 - 5.5 08/26 [facility]2017 [facility] HEMATOLOGY Eosinophils 1.9 % 0.0 - 4.0 08/[address] HEMATOLOGY Basophils 0.9 % 0.0 - 1.0 08/[address] HEMATOLOGY Neutrophils # 4.2 K/CMM 1.5 - 8.1 08/[address] HEMATOLOGY Eosinophils # 0.2 K/CMM 0.0 - 0.5 08/[address] HEMATOLOGY Basophils # 0.1 K/CMM 0.0 - 0.2 08/[address] HEMATOLOGY Monocytes # 0.6 K/CMM 0.0 - 0.8 08/[address] HEMATOLOGY WBC 8.2 K/CMM 3.7 - 10.4 08/26 [facility]2017 [facility] HEMATOLOGY Hct 38.7 % 36.0 - 08/26 48.0 [facility] HEMATOLOGY RBC 4.18 M/CMM 4.20 - 08/26 [place] 5.40 [facility] HEMATOLOGY Hgb 13.1 g/dL 12.0 - 08/26 16.0 [facility] HEMATOLOGY MPV 9.1 fL 7.4 - 10.4 08/26 [facility]2017 [facility] HEMATOLOGY RDW 13.1 % 11.5 - 08/26 [place] 14.5 [facility] HEMATOLOGY Platelet 230 K/CMM 133 - 450 08/26 2017 [facility] HEMATOLOGY MCH 31.4 pg 27.0 - 08/26 [place] 31.0 [facility] HEMATOLOGY MCHC 33.9 g/dL 32.0 - 08/26 [facility] 36.0 [facility] HEMATOLOGY MCV 92.4 fL 80.0 - 08/26 [place] 98.0 [facility] PARATHYROID Ca Ion WB 1.11 1. - 08/26 [facility] PROFILE mMol/L 1. [facility] PARATHYROID Ca Norm WB 1.11 1. - 08/26 [facility] PROFILE mMol/L 1. [facility] Brain wo Brain wo EXAM: MRI BRAIN WITHOUT CONTRAST 08/25 - [facility] contrast contrast /2017 - Medical MRI This report was dictated by a Apartment Maintenance Manager/Fellow. I have personally reviewed the images as Center well as the Resident's interpretation and agree with the findings. DATE: 08/24/2017 549 PM CDT Read by: Lazaro eNwell MD Resident: Lazaro Newell MD Dictated Date/time: 08/25/17 18:37 Electronically Signed by: Cecilio Finney MD 08/25/17 23:22 FINAL REPORT INDICATION: 67 years old Female patient with history of Left sided numbness and weakness. COMPARISON: CT scan of the brain dated 08/24/2017 TECHNIQUE: Axial DWI, axial GRE, axial T2 FLAIR sequences were obtained through the brain as per standard MRI Brain stroke protocol. FINDINGS: Diffusion-weighted images do not demonstrate any abnormal restricted diffusion to suggest acute infarct.. Again identified are changes of encephalomalacia within the right anterior MCA division. Few scattered foci of T2 FLAIR hyperintensity within the periventricular and deep white matter There is no mass effect or midline shift. Ventricles are stable in size and configuration. No obvious pathological extra-axial fluid collection is identified. Cerebral sulci and basal cisterns are well preserved. Visualized paranasal sinuses are clear. Visualized mastoid air cells are clear. Visualized orbits appear grossly unremarkable. IMPRESSION: 1. No acute intracranial infarct. 2. Encephalomalacia in the territory of anterior division right MCA. These findings are in agreement with previous preliminary report made by manager operations and procurement administration vice president. LIPIDS VLDL 22 08/24 [facility] /[address] [place] [address] LIPIDS LDL 67 mg/dL <=99 mg/dL 08/24 [facility] (Calculated) /[address] [place] [address] LIPIDS HDL 30 mg/dL >=61 mg/dL 08/[address] LIPIDS Chol 119 mg/dL <=199 08/24 [facility] mg/dL [address] LIPIDS Trig 112 mg/dL <=149 08/24 [facility] mg/dL [address] [place] [address] LIPIDS CHD Risk 3.97 3.90 - 08/24 [facility] 5.80 /2017 [facility] SPECIAL Hgb A1C 8.1 % <=5.6 % 08/24 [facility] CHEMISTRY /[address] [place] [address] URINE AND UA RBC None Seen 0 - 2 08/24 [facility] STOOL /[address] [place] [address] (08/24/17 3:04 PM) [place] URINE AND UA WBC None Seen None Seen 08/[address] (08/24/17 3:04 PM) Center URINE AND UA Sq Epi Rare /LPF Few /LPF 08/24 [facility] [address] [place] [address] URINE AND UA 0.2 EU/dL 0.1 - 1.0 08/24 [facility] Urobilinogen /2017 [facility] URINE AND UA Blood Negative Negative 08/24 [facility] (08/24/17 3:04 PM) [place] URINE AND UA Nitrite Negative Negative 08/24 [facility] (08/24/17 3:04 PM) [place] URINE AND UA Leuk Est Negative Negative 08/24 [facility] (08/24/17 3:04 PM) [place] URINE AND UA Bili Negative Negative 08/24 [facility] Medical *NA* [place] (08/24/17 3:04 PM) URINE AND UA Ketones Negative Negative 08/24 [facility] mg/dL mg/dL [facility] URINE AND UA Protein Negative Negative 08/24 [facility] mg/dL mg/dL /2017 [facility] URINE AND UA Glucose Negative Negative 08/24 [facility] mg/dL mg/dL [facility] URINE AND UA pH 6.0 5.0 - 8.0 08/[address] URINE AND UA Spec Grav 1.010 <=1.030 08/[address] URINE AND UA Turbidity Clear Clear 08/24 [facility] (08/24/17 3:04 PM) [place] URINE AND UA Color Yellow Yellow 08/24 [facility] [address] [place] [address] *NA* [place] (08/24/17 3:04 PM) CARDIAC Troponin-I null 0.00 - 08/24 [facility] ENZYMES 0.40 [facility] CARDIAC Total CK 88 unit/L 12 - 191 08/24 [facility] ENZYMES [facility] ELECTROLYTE AGAP 15.5 meq/L 10.0 - 07 [facility] S 20.0 [facility] ELECTROLYTE CO2 23 meq/L 24 - 32 08/[address] ELECTROLYTE Calcium Lvl 9.0 mg/dL 8.5 - 10.5 08/[address] ELECTROLYTE Chloride Lvl 105 meq/L 95 - 109 08/[address] ELECTROLYTE eGFR 77 08/24 Result Comment: The eGFR is calculated using the CKD-EPI formula. In most young, healthy individuals the eGFR will be >90 mL/ min/1.73m2. The eGFR declines with age. An eGFR of 60-89 may be normal in [facility] mL/min/1.7 some populations, particularly the elderly, for whom the CKD-EPI formula has not been extensively validated. Use of the eGFR is not recommended in the following populations: [address] Individuals with unstable creatinine concentrations, including [...] be multiplied by the estimated BMI. ELECTROLYTE Potassium Lvl 4.5 meq/L 3.5 - 5.1 08/24 Result [facility] Comment: [facility] Slightly Hemolyzed. ELECTROLYTE Sodium Lvl 139 meq/L 135 - 145 08/[address] ELECTROLYTE BUN 15 mg/dL 7 - 22 08/[address] ELECTROLYTE Creatinine 0.80 mg/dL 0.50 - 08/24 [facility] Lvl 1.40 [facility] ELECTROLYTE Glucose Lvl 92 mg/dL 70 - 99 08/[address] HEMATOLOGY Monocytes # 0.7 K/CMM 0.0 - 0.8 08/[address] HEMATOLOGY Basophils 0.7 % 0.0 - 1.0 08/[address] HEMATOLOGY Neutrophils # 7.1 K/CMM 1.5 - 8.1 08/[address] HEMATOLOGY Eosinophils # 0.1 K/CMM 0.0 - 0.5 08/[address] HEMATOLOGY Basophils # 0.1 K/CMM 0.0 - 0.2 08/[address] HEMATOLOGY Lymphocytes # 4.4 K/CMM 1.0 - 5.5 08/[address] HEMATOLOGY Segs 57.1 % 45.0 - 08/24 [facility] 75.0 [facility] HEMATOLOGY Lymphocytes 35.6 % 20.0 - 07 [facility] 40.0 [facility] HEMATOLOGY Monocytes 5.6 % 2.0 - 12.0 08/[address] HEMATOLOGY Eosinophils 1.0 % 0.0 - 4.0 08/24 [facility] HEMATOLOGY PT 13.2 s 12.0 - 08/24 [place] 14.7 [facility] HEMATOLOGY INR 1.00 0.85 - 08/24 [place] 1.17 [facility] HEMATOLOGY MPV 8.0 fL 7.4 - 10.4 08/24 [facility] HEMATOLOGY MCHC 33.4 g/dL 32.0 - 08/24 [place] 36.0 [facility] HEMATOLOGY RDW 13.3 % 11.5 - 08/24 [place] 14.5 [facility] HEMATOLOGY MCH 31.0 pg 27.0 - 08/24 [facility] 31.0 [facility] HEMATOLOGY Platelet 269 K/CMM 133 - 450 08/24 [facility] HEMATOLOGY Hct 40.1 % 36.0 - 08/24 [facility] 48.0 [facility] HEMATOLOGY Hgb 13.4 g/dL 12.0 - 08/24 [facility] 16.0 [facility] HEMATOLOGY MCV 92.8 fL 80.0 - 08/24 [facility] 98.0 [facility] HEMATOLOGY WBC 12.4 K/CMM 3.7 - 10.4 08/24 [facility] HEMATOLOGY RBC 4.32 M/CMM 4.20 - 08/24 [facility] 5.40 /2017 [facility] HEMATOLOGY PTT 25.6 s 22.9 - 08/24 [facility] 35.8 /2017 [facility] Chest 1view Chest 1view EXAM: XR CHEST 1 VIEW 08/24 - [facility] DX DX /2017 - [facility] DATE: 08/24/2017 at 1446 hours Read by: Gita Gannon MD Dictated Date/time: 08/24/17 15:38 Electronically Signed by: Gita Gannon MD 08/24/17 15:39 FINAL REPORT INDICATION: - stroke COMPARISON: None TECHNIQUE: AP chest FINDINGS: Lines and tubes: None. Lungs and pleura: The lungs are clear. No focal consolidations are seen. The costophrenic recesses are sharp without pleural effusion. Pulmonary vascularity is normal. Heart and mediastinum: The heart size is normal for technique. The thoracic aorta is mildly tortuous. Punctate calcification is seen within aortic arch. The mediastinal contours are normal. Bones: No acute bony abnormality is identified. Bridging osteophytes with minimal disc space narrowing is seen at mid and lower portions of the thoracic spine. IMPRESSION: No acute cardiopulmonary abnormality. The thoracic aorta is mildly tortuous with punctate calcification seen at the aortic arch. Brain Brain Stroke EXAM: CT BRAIN 08/24 - [facility] Stroke wo wo contrast /2018 - Medical contrast CT CT This report was dictated by a Apartment Maintenance Manager/ Fellow. I have personally reviewed the images as Center well as the Resident's interpretation and agree with the findings. DATE: 08/24/2017 at 14:03 Read by: Aaron Lawton MD Resident: Aaron Lawton MD Dictated Date/time: 08/24/17 14:12 Electronically Signed by: Marcela Johnson MD 08/24/17 14:30 FINAL REPORT CLINICAL INFORMATION: - stroke COMPARISON: None TECHNIQUE: Axial images of the brain were obtained from the skull base through the vertex without contrast material administration. DLP: [id number] mGycm DISCUSSION: Encephalomalacia in the right frontal lobe. Right pterional craniotomy and right paraclinoid aneurysmal clip. Coiling material in the region of the left supraclinoid ICA. Compensatory dilatation of the right lateral ventricle. Small area of gliosis and dystrophic calcification in the left frontal lobe. No acute hemorrhage, hydrocephalus or midline shift. IMPRESSION: No early signs of cortical-based ischemia or acute hemorrhage. 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 Brain/Neck Brain/Neck EXAM: CT ANGIOGRAM OF THE BRAIN 08/24 - [facility] Stroke Stroke /2017 - Medical perfusion perfusion CTA EXAM: CT ANGIOGRAM OF THE NECK Center CTA EXAM: CT PERFUSION OF THE BRAIN Read by: Marcela Johnson MD Dictated Date/time: 08/24/17 15:13 Electronically Signed by: Marcela Johnson MD 08/24/17 15:31 FINAL REPORT DATE: 08/24/2017 at 14:11 INDICATION: - Stroke LITIGATION PARALEGAL COMPARISON: None TECHNIQUE: - Dynamic CT perfusion images on a limited area of the brain parenchyma are performed during bolus injection of iodinated contrast material. Color maps of relative cerebral blood flow, relative cerebral blood volume, time to peak, and mean transit time are created on an independent workstation and are submitted along with the source image data. -Rapid acquisition spiral CT images of the brain and neck were obtained between the aortic arch and the cranial vertex during intravenous infusion of iodinated contrast for the purposes of CT angiograph y. 3-D CT angiographic images are created using maximum intensity projection technique at the acquisition workstation. The source images are also presented for interpretation. IV contrast: 100 cc Visipaque 320 Total DLP: 3392 mGycm. FINDINGS: Both common carotid arteries are patent from their origin. Small amount of eccentric calcified plaque at the origin of the right ICA not resulting in significant stenosis by NASCET criteria. Both cervical ICAs are patent. The intracranial ICAs are patent. Right paraclinoid aneurysmal clip. No discrete recurrent or residual aneurysm. Coiling material in the supraclinoid left ICA with no discrete residual or recurrent aneu rysm. The anterior and middle cerebral arteries are patent. Both P-comm are patent with origin of both loan and credit manager. The vertebral arteries are patent from their origin. The left vertebral artery is dominant. The right vertebral artery ends in PICA. The intradural left vertebral artery is unremarkable. The basilar artery is diminutive. No AV malformation or aneurysms. Lung apices are clear. CT PERFUSION: No perfusion defect indicating of acute infarct or penumbra. Matching perfusion defect in the right frontal lobe compatible with area of encephalomalacia. IMPRESSION: No stenosis by NASCET criteria. No intracranial proximal branch occlusion or flow-limiting stenosis. Right paraclinoid aneurysmal clip. Left supraclinoid coiling material. No recurrent or residual aneurysms or AV malformation. No perfusion defects suggestive of acute infarct (All qualitative and quantitative assessments of carotid bifurcation and proximal internal carotid artery stenosis are made referencing the distal internal carotid artery {NASCET criteria}.) CHEM PANEL eGFR 89 06/20 Result Comment: The eGFR is calculated using the CKD-EPI formula. In most young, healthy individuals the eGFR will be >90 mL/ min/1.73m2. The eGFR declines with age. An eGFR of 60-89 may be normal in [place] mL/min/1.7 /2017 some populations, particularly the elderly, for whom the CKD-EPI formula has not been extensively validated. Use of the eGFR is not recommended in the following populations: [address] Individuals with unstable creatinine concentrations, including patients [...] PANEL AGAP 15.2 meq/L 10.0 - 06/20 20.0 [facility] CHEM PANEL Calcium Lvl 8.7 mg/dL 8.5 - 10.5 06/20 [facility] CHEM PANEL Creatinine 0.71 mg/dL 0.50 - 06/20 [facility] Lvl 1.40 [facility] CHEM PANEL Potassium Lvl 4.2 meq/L 3.5 - 5.1 06/20 [facility] CHEM PANEL Sodium Lvl 138 meq/L 135 - 145 06/20 [facility] CHEM PANEL CO2 25 meq/L 24 - 32 06/20 2016 [facility] CHEM PANEL Chloride Lvl 102 meq/L 95 - 109 06/[address] [place] [address] CHEM PANEL Glucose Lvl 161 mg/dL 70 - 99 06/[address] CHEM PANEL BUN 13 mg/dL 7 - 22 06/[address] [place] [address] CHEM PANEL Magnesium Lvl 2.1 mg/dL 1.8 - 2.4 06/20 [facility] CHEM PANEL Phosphorus 3.3 mg/dL 2.5 - 4.5 06/20 [facility] HEMATOLOGY RBC 4.34 M/CMM 4.20 - 06/20 5.40 [facility] HEMATOLOGY WBC 9.5 K/CMM 3.7 - 10.4 06/20 [facility] HEMATOLOGY Hgb 13.4 g/dL 12.0 - 06/20 16.0 [facility] HEMATOLOGY MCHC 33.8 g/dL 32.0 - 06/20 36.0 [facility] HEMATOLOGY MCH 30.8 pg 27.0 - 06/20 31.0 [facility] HEMATOLOGY RDW 13.2 % 11.5 - 06/20 14.5 [facility] HEMATOLOGY MCV 91.0 fL 80.0 - 06/20 98.0 [facility] HEMATOLOGY Hct 39.5 % 36.0 - 06/20 48.0 [facility] HEMATOLOGY Platelet 248 K/CMM 133 - 450 06/20 [facility] HEMATOLOGY MPV 8.0 fL 7.4 - 10.4 06/20 [facility] HEMATOLOGY Segs 77.7 % 45.0 - 06/20 [place] 75.0 [facility] HEMATOLOGY Lymphocytes 19.0 % 20.0 - 06/20 40.0 [facility] HEMATOLOGY Monocytes # 0.3 K/CMM 0.0 - 0.8 06/20 [facility] HEMATOLOGY Lymphocytes # 1.8 K/CMM 1.0 - 5.5 06/20 [facility] HEMATOLOGY Monocytes 3.1 % 2.0 - 12.0 06/20 [facility] HEMATOLOGY Basophils 0.2 % 0.0 - 1.0 06/20 [facility] HEMATOLOGY Segs-Bands # 7.4 K/CMM 1.5 - 8.1 06/20 [facility] PARATHYROID Ca Norm WB 1.10 1.05 - 06/20 [facility] PROFILE mMol/L 1. [facility] PARATHYROID Ca Ion WB 1.10 1.06/20 [facility] PROFILE mMol/L 1. [facility] BACTERIAL - MRSA by PCR Negative 06/19 [facility] SEROLOGY [facility] (06/19/16 3:52 PM) [facility] HEMATOLOGY PTT 27.8 s 22.9 - 06/19 [place] 35.8 /2016 [facility] HEMATOLOGY PT 14.0 s 12.0 - 06/19 [facility] 14.7 [facility] HEMATOLOGY INR 1.06 0.85 - 06/19 [facility] 1.17 [facility] HEMATOLOGY Plav Effect 268 PRU 06/19 [facility] Plt [facility] HEMATOLOGY ASA Effect 431 ARU 06/19 [facility] Pl[facility] HEMATOLOGY Plav Effect see note 06/19 Result [facility] Comment: [facility] asked [facility] for results to be removed,06/19 08:45 HEMATOLOGY ASA Effect see note 06/19 Result [facility] Comment: [facility] asked [facility] to remove results,06/19 08:45 ELECTROLYTE Potassium Lvl 4.2 meq/L 3.5 - 5.1 06/19 [facility] S [facility] ELECTROLYTE Creatinine 0.61 mg/dL 0.50 - 06/19 [facility] S Lvl 1.40 [facility] ELECTROLYTE Sodium Lvl 139 meq/L 135 - 145 06/19 [facility] ELECTROLYTE eGFR 95 06/19 Result Comment: The eGFR is calculated using the CKD-EPI formula. In most young, healthy individuals the eGFR will be >90 mL/ min/1.73m2. The eGFR declines with age. An eGFR of 60-89 may be normal in [facility] mL/min/1. some populations, particularly the elderly, for whom the CKD-EPI formula has not been extensively validated. Use of the eGFR is not recommended in the following populations: [address] Individuals with unstable creatinine concentrations, including [...] Lvl 103 meq/L 95 - 109 06/19 [facility] [address] [place] [address] ELECTROLYTE CO2 26 meq/L 24 - 32 06/19 [facility]2016 [facility] ELECTROLYTE Calcium Lvl 9.2 mg/dL 8.5 - 10.5 06/[address] ELECTROLYTE AGAP 14.2 meq/L 10.0 - 06/19 [facility] 20.0 [facility] ELECTROLYTE BUN 20 mg/dL 7 - 22 06/[address] ELECTROLYTE Glucose Lvl 123 mg/dL 70 - 99 06/[address] HEMATOLOGY Platelet 249 K/CMM 133 - 450 06/[address] HEMATOLOGY RDW 12.3 % 11.5 - 06/19 [facility] 14.5 [facility] HEMATOLOGY MCHC 33.1 g/dL 32.0 - 06/19 [facility] 36.0 [facility] HEMATOLOGY MPV 7.9 fL 7.4 - 10.4 06/[address] HEMATOLOGY Hct 40.4 % 36.0 - 06/19 [facility] 48.0 [facility] HEMATOLOGY Hgb 13.4 g/dL 12.0 - 06/19 [facility] 16.0 [facility] HEMATOLOGY WBC 10.0 K/CMM 3.7 - 10.4 06/[address] HEMATOLOGY RBC 4.43 M/CMM 4.20 - 06/19 [facility] [place] 5.40 /2016 [facility] HEMATOLOGY MCV 91.1 fL 80.0 - 06/19 [place] 98.0 [facility] HEMATOLOGY MCH 30.2 pg 27.0 - 06/19 [place] 31.0 [facility] HEMATOLOGY Eosinophils # 0.1 K/CMM 0.0 - 0.5 06/19 2016 [facility] HEMATOLOGY Basophils # 0.0 K/CMM 0.0 - 0.2 06/19 [facility] HEMATOLOGY Basophils 0.0 % 0.0 - 1.0 06/19 [facility] HEMATOLOGY Eosinophils 1.2 % 0.0 - 4.0 06/19 [facility]2016 [facility] HEMATOLOGY Monocytes # 0.4 K/CMM 0.0 - 0.8 06/19 [facility]2016 [facility] HEMATOLOGY Lymphocytes # 4.7 K/CMM 1.0 - 5.5 06/19 2016 [facility] HEMATOLOGY Segs-Bands # 4.8 K/CMM 1.5 - 8.1 06/19 [facility]2016 [facility] HEMATOLOGY Segs 47.6 % 45.0 - 06/19 [facility] 75.0 [facility] HEMATOLOGY Lymphocytes 46.9 % 20.0 - 06/19 [facility] 40.0 [facility] HEMATOLOGY Monocytes 4.3 % 2.0 - 12.0 06/19 [facility]2016 [facility] Angiogram Angiogram PROCEDURE: 06/19 - [facility] [place] [facility] cervical /2016 - Medical artery artery 1. Diagnostic Cerebral Angiogram: This report was dictated by a Apartment Maintenance Manager/Fellow. I have personally reviewed the images as [...] single wall micropuncture technique and a 6 [place] Islander sheath was placed. A 5 [place] Vert catheter was coaxially advanced with a [...] embolization. And a magnified roadmap , a 6-[place] Islander envoy DA guide catheter was telescoped over a long 5-[place] Islander Vert catheter and positioned over the left [...] was selected and 4 x 6 mm [place] coil was deployed to est ablish a [...] UA Mucus Few /LPF None Seen 03/23 [facility] STOOL /LPF /2016 [facility] URINE AND UA WBC 1 /HPF 0 - 5 03/[address] URINE AND UA RBC null 0 - 2 03/23 [facility] [address] [place] [address] URINE AND UA Bacteria Occasional None Seen 03/23 [facility] STOOL /HPF /HPF /2016 [facility] URINE AND UA <=1.0 0.1 - 1.0 03/23 [facility] Urobilinogen mg/dL [facility] URINE AND UA Turbidity Clear Clear 03/23 [facility] [address] [place] [address] (03/23/16 4:55 PM) [facility] URINE AND UA Spec Grav 1.011 <=1.030 03/23 [facility] [address] [place] [address] URINE AND UA pH 6.0 5.0 - 8.0 03/[address] URINE AND UA Protein Negative Negative 03/23 [facility] mg/dL mg/dL [address] [place] [address] URINE AND UA Color Yellow Yellow 03/23 [facility] [address] [place] [address] *NA* [facility] (03/23/16 4:55 PM) URINE AND UA Sq Epi Few /LPF Few /LPF 03/[address] URINE AND UA Glucose Negative Negative 03/23 [facility] mg/dL mg/dL /2016 [facility] URINE AND UA Ketones Negative Negative 03/23 [facility] mg/dL mg/dL [address] [place] [address] URINE AND UA Bili Negative Negative 03/23 [facility] [address] [place] [address] *NA* [place] (03/23/16 4:55 PM) URINE AND UA Blood Negative Negative 03/23 [facility] [address] [place] [address] (03/23/16 4:55 PM) [place] [facility] URINE AND UA Nitrite Negative Negative 03/23 [facility] (03/23/16 4:55 PM) [place] [facility] URINE AND UA Leuk Est Negative Negative 03/23 [facility] (03/23/16 4:55 PM) [facility] CHEM PANEL B/C Ratio 21 6 - 25 03/[address] CHEM PANEL AGAP 15.2 meq/L 10.0 - 03/22 [facility] 20.0 [facility] CHEM PANEL Globulin 4.0 g/dL 2.7 - 4.2 03/[address] CHEM PANEL A/G Ratio 0.8 0.7 - 1.6 03/[address] CHEM PANEL eGFR 76 03/22 Result Comment: The eGFR is calculated using the CKD-EPI formula. In most young, healthy individuals the eGFR will be >90 mL/ min/1.73m2. The eGFR declines with age. An eGFR of 60-89 may be normal in [facility] mL/min/1.7 some populations, particularly the elderly, for whom the CKD-EPI formula has not been extensively validated. Use of the eGFR is not recommended in the following populations: [address] Individuals with unstable creatinine concentrations, including [...] Total 0.3 mg/dL 0.2 - 1.3 03/[address] CHEM PANEL CO2 28 meq/L 24 - 32 03/[address] CHEM PANEL Calcium Lvl 9.2 mg/dL 8.5 - 10.5 03/[address] CHEM PANEL Albumin Lvl 3.1 g/dL 3.5 - 5.0 03/[address] CHEM PANEL Potassium Lvl 4.2 meq/L 3.5 - 5.1 03/[address] CHEM PANEL Chloride Lvl 97 meq/L 95 - 109 03/[address] CHEM PANEL Total Protein 7.1 g/dL 6.4 - 8.4 03/[address] CHEM PANEL AST 34 unit/L 0 - 37 03/[address] CHEM PANEL ALT 59 unit/L 0 - 65 03/[address] CHEM PANEL Alk Phos 86 unit/L 39 - 136 03/22 [facility] CHEM PANEL Glucose Lvl 194 mg/dL 70 - 99 03/22 [facility] CHEM PANEL Sodium Lvl 136 meq/L 135 - 145 03/22 [facility] CHEM PANEL BUN 17 mg/dL 7 - 22 03/[address] [place] [address] CHEM PANEL Creatinine 0.82 mg/dL 0.50 - 03/22 [facility] Lvl 1.40 /2016 [facility] HEMATOLOGY Segs-Bands # 4.2 K/CMM 1.5 - 8.1 03/22 [facility] HEMATOLOGY Lymphocytes # 2.5 K/CMM 1.0 - 5.5 03/22 [facility] HEMATOLOGY Basophils 0.6 % 0.0 - 1.0 03/22 [facility] HEMATOLOGY Eosinophils 2.1 % 0.0 - 4.0 03/[address] [place] [address] HEMATOLOGY Monocytes # 0.6 K/CMM 0.0 - 0.8 03/[address] [place] [address] HEMATOLOGY Eosinophils # 0.2 K/CMM 0.0 - 0.5 03/[address] [place] [address] HEMATOLOGY Monocytes 7.5 % 2.0 - 12.0 03/[address] [place] [address] HEMATOLOGY Segs 56.8 % 45.0 - 03/22 75.0 [facility] HEMATOLOGY Lymphocytes 33.0 % 20.0 - 03/22 40.0 [facility] HEMATOLOGY MCH 32.0 pg 27.0 - 03/22 31.0 [facility] HEMATOLOGY MCHC 33.7 g/dL 32.0 - 03/22 36.0 [facility] HEMATOLOGY MPV 7.4 fL 7.4 - 10.4 03/22 [facility] HEMATOLOGY RDW 14.3 % 11.5 - 03/22 14.5 [facility] HEMATOLOGY Platelet 202 K/CMM 133 - 450 03/22 [facility] HEMATOLOGY MCV 95.0 fL 80.0 - 03/22 98.0 [facility] HEMATOLOGY Hct 36.1 % 36.0 - 03/22 48.0 [facility] HEMATOLOGY Hgb 12.2 g/dL 12.0 - 03/22 [facility] 16.0 [facility] HEMATOLOGY RBC 3.80 M/CMM 4.20 - 02 [facility] 5.40 /2016 [facility] HEMATOLOGY WBC 7.5 K/CMM 3.7 - 10.4 03/22 [facility] CHEM PANEL B/C Ratio 25 6 - 25 03/[address] CHEM PANEL AGAP 15.1 meq/L 10.0 - 02 [facility] 20.0 [facility] CHEM PANEL Globulin 4.6 g/dL 2.7 - 4.2 03/[address] CHEM PANEL A/G Ratio 0.7 0.7 - 1.6 03/[address] CHEM PANEL Alk Phos 86 unit/L 39 - 136 03/[address] CHEM PANEL Bili Total 0.4 mg/dL 0.2 - 1.3 03/[address] CHEM PANEL eGFR 93 03/20 Result Comment: The eGFR is calculated using the CKD-EPI formula. In most young, healthy individuals the eGFR will be >90 mL/ min/1.73m2. The eGFR declines with age. An eGFR of 60-89 may be normal in [facility] mL/min/1.7 some populations, particularly the elderly, for whom the CKD-EPI formula has not been extensively validated. Use of the eGFR is not recommended in the following populations: [address] Individuals with unstable creatinine concentrations, including [...] ALT 74 unit/L 0 - 65 03/20 [facility] [address] [place] [address] CHEM PANEL AST 32 unit/L 0 - 37 03/[address] CHEM PANEL Albumin Lvl 3.4 g/dL 3.5 - 5.0 03/[address] CHEM PANEL Total Protein 8.0 g/dL 6.4 - 8.4 03/[address] CHEM PANEL Chloride Lvl 98 meq/L 95 - 109 03/[address] CHEM PANEL CO2 27 meq/L 24 - 32 03/[address] [place] [address] CHEM PANEL Calcium Lvl 9.6 mg/dL 8.5 - 10.[address] CHEM PANEL Creatinine 0.68 mg/dL 0.50 - 02 [facility] Lvl 1.40 [facility] CHEM PANEL Sodium Lvl 136 meq/L 135 - [address] CHEM PANEL Potassium Lvl 4.1 meq/L 3.5 - 5.1 03/[address] CHEM PANEL Glucose Lvl 197 mg/dL 70 - [address] CHEM PANEL BUN 17 mg/dL 7 - 22 03/[address] HEMATOLOGY Monocytes 6.1 % 2.0 - 12.0 03/[address] HEMATOLOGY Eosinophils 2.1 % 0.0 - 4.0 03/[address] HEMATOLOGY Lymphocytes 28.0 % 20.0 - 03/20 [facility] 40.0 [facility] HEMATOLOGY Eosinophils # 0.2 K/CMM 0.0 - 0.5 03/20 [facility] [address] [place] [address] HEMATOLOGY Basophils # 0.1 K/CMM 0.0 - 0.[address] HEMATOLOGY Segs 63.1 % 45.0 - 02 [facility] 75.0 [facility] HEMATOLOGY Lymphocytes # 2.4 K/CMM 1.0 - 5.5 03/[address] HEMATOLOGY Monocytes # 0.5 K/CMM 0.0 - 0.[address] HEMATOLOGY Basophils 0.7 % 0.0 - 1.0 03/20 [facility] [address] [place] [address] HEMATOLOGY Segs-Bands # 5.3 K/CMM 1.5 - 8.1 02 [facility] [address] [place] [address] HEMATOLOGY Platelet 259 K/CMM 133 - [address] HEMATOLOGY MPV 8.4 fL 7.4 - 10.4 03/[address] HEMATOLOGY MCV 94.9 fL 80.0 - 03/20 [facility] 98.0 [facility] HEMATOLOGY Hct 37.1 % 36.0 - 02 [facility] 48.0 [facility] HEMATOLOGY Hgb 12.6 g/dL 12.0 - 02 [facility] 16.0 [facility] HEMATOLOGY WBC 8.5 K/CMM 3.7 - 10.4 03/20 [facility] HEMATOLOGY RBC 3.90 M/CMM 4.20 - 03/20 [facility] 5.40 [facility] HEMATOLOGY RDW 14.4 % 11.5 - 03/20 [facility] 14.5 [facility] HEMATOLOGY MCH 32.2 pg 27.0 - 03/20 [facility] 31.0 [facility] HEMATOLOGY MCHC 33.9 g/dL 32.0 - 03/20 [facility] 36.0 [facility] CHEM PANEL eGFR 93 03/18 Result Comment: The eGFR is calculated using the CKD-EPI formula. In most young, healthy individuals the eGFR will be >90 mL/ min/1.73m2. The eGFR declines with age. An eGFR of 60-89 may be normal in [facility] mL/min/1. some populations, particularly the elderly, for whom the CKD-EPI formula has not been extensively validated. Use of the eGFR is not recommended in the following populations: [address] Individuals with unstable creatinine concentrations, including [...] Lvl 198 mg/dL 70 - 99 03/[address] [place] [address] CHEM PANEL BUN 18 mg/dL 7 - 22 03/18 [facility] [address] [place] [address] CHEM PANEL Alk Phos 78 unit/L 39 - 136 03/18 [facility] CHEM PANEL AST 35 unit/L 0 - 37 03/[address] CHEM PANEL ALT 74 unit/L 0 - 65 03/[address] CHEM PANEL Creatinine 0.67 mg/dL 0.50 - 02 [facility] Lvl 1.40 [facility] CHEM PANEL Chloride Lvl 99 meq/L 95 - 109 03/[address] CHEM PANEL Potassium Lvl 3.9 meq/L 3.5 - 5.1 03/18 [facility] CHEM PANEL Sodium Lvl 136 meq/L 135 - 145 03/18 [facility] /[address] [place] [address] CHEM PANEL Total Protein 7.2 g/dL 6.4 - 8.4 03/[address] CHEM PANEL Calcium Lvl 9.1 mg/dL 8.5 - 10.5 03/[address] CHEM PANEL CO2 27 meq/L 24 - 32 03/[address] CHEM PANEL Albumin Lvl 3.1 g/dL 3.5 - 5.0 03/[address] CHEM PANEL Bili Total 0.3 mg/dL 0.2 - 1.3 03/[address] CHEM PANEL A/G Ratio 0.8 0.7 - 1.6 03/[address] CHEM PANEL Globulin 4.1 g/dL 2.7 - 4.2 03/[address] CHEM PANEL B/C Ratio 27 6 - 25 03/[address] CHEM PANEL AGAP 13.9 meq/L 10.0 - 02 [facility] 20.0 [facility] HEMATOLOGY Platelet 279 K/CMM 133 - 450 03/18 [facility] [address] [place] [address] HEMATOLOGY MCH 32.4 pg 27.0 - 02 [facility] 31.0 [facility] HEMATOLOGY MPV 8.1 fL 7.4 - 10.4 03/18 [facility] [address] [place] [address] HEMATOLOGY MCHC 33.9 g/dL 32.0 - 02 [facility] 36.0 [facility] HEMATOLOGY RDW 14.3 % 11.5 - 02/ [facility] 14.5 [facility] HEMATOLOGY Hgb 11.8 g/dL 12.0 - 02 16.0 [facility] HEMATOLOGY WBC 8.3 K/CMM 3.7 - 10.4 03/18 [facility] [address] [place] [address] HEMATOLOGY Hct 34.6 % 36.0 - 02/ [facility] 48.0 [facility] HEMATOLOGY MCV 95.3 fL 80.0 - 02 [facility] 98.0 [facility] HEMATOLOGY RBC 3.63 M/CMM 4.20 - 02/ [facility] 5.40 [facility] HEMATOLOGY Eosinophils # 0.2 K/CMM 0.0 - 0.5 02 [facility] [address] [place] [address] HEMATOLOGY Monocytes # 0.5 K/CMM 0.0 - 0.[address] HEMATOLOGY Lymphocytes # 2.6 K/CMM 1.0 - 5.[address] HEMATOLOGY Basophils # 0.1 K/CMM 0.0 - 0.2 03/[address] HEMATOLOGY Basophils 1.0 % 0.0 - 1.0 03/[address] HEMATOLOGY Eosinophils 2.0 % 0.0 - 4.0 03/[address] HEMATOLOGY Monocytes 6.2 % 2.0 - 12.0 03/[address] HEMATOLOGY Segs 59.4 % 45.0 - 02 [place] 75.0 [facility] HEMATOLOGY Lymphocytes 31.4 % 20.0 - 02 [facility] 40.0 [facility] HEMATOLOGY Segs-Bands # 4.9 K/CMM 1.5 - 8.1 03/[address] HEMATOLOGY Basophils # 0.1 K/CMM 0.0 - 0.2 03/[address] URINE AND UA Glucose 100mg/dL 03/[address] URINE AND UA Bacteria Few /HPF None Seen 03/[address] URINE AND UA Mucus Few /LPF None Seen 03/14 [facility] /F [address] URINE AND UA Nitrite Negative Negative 03/[address] (03/14/16 12:37 AM) [place] URINE AND UA Bili Negative Negative 03/[address] *NA* [place] (03/14/16 12:37 AM) URINE AND UA Blood Negative Negative 03/[address] (03/14/16 12:37 AM) [place] URINE AND UA 4.0 mg/dL 0.1 - 1.0 03/14 [facility] Urobilinogen [address] URINE AND UA RBC 1 /HPF 0 - 2 03/[address] URINE AND UA WBC null 0 - 5 03/[address] URINE AND UA Sq Epi Occasional Few /LPF 03/14 [facility] /LPF [address] [place] [address] URINE AND UA Leuk Est Large Negative 03/[address] *ABN* Center (03/14/16 12:37 AM) URINE AND UA Color Yellow Yellow 03/14 [facility] *NA* Center (03/14/16 12:37 AM) URINE AND UA Protein Negative Negative 03/14 [facility] mg/dL mg/dL [facility] URINE AND UA Ketones Negative Negative 03/14 [facility] mg/dL mg/dL [facility] URINE AND UA Turbidity Slight Clear 03/14 [facility] *ABN* Center (03/14/16 12:37 AM) URINE AND UA Spec Grav 1.016 <=1.030 03/14 [facility] URINE AND UA pH 5.5 5.0 - 8.0 03/14 [facility]2016 [facility] CHEM PANEL Phosphorus 4.1 mg/dL 2.5 - 4.5 03/12 [facility]2016 [facility] CHEM PANEL Magnesium Lvl 2.4 mg/dL 1.8 - 2.4 03/[address] IMMUNOLOGY Prealbumin 27.4 mg/dL 18.0 - 03/12 [facility] 45.0 [facility] CHEM PANEL Phosphorus 4.0 mg/dL 2.5 - 4.5 03/[address] CHEM PANEL Magnesium Lvl 2.4 mg/dL 1.8 - 2.4 03/[address] ELECTROLYTE AGAP 14.1 meq/L 10.0 - 03/11 [facility] 20. [facility] ELECTROLYTE eGFR 97 03/11 Result Comment: The eGFR is calculated using the CKD-EPI formula. In most young, healthy individuals the eGFR will be >90 mL/ min/1.73m2. The eGFR declines with age. An eGFR of 60-89 may be normal in [facility] mL/min/1.7 some populations, particularly the elderly, for whom the CKD-EPI formula has not been extensively validated. Use of the eGFR is not recommended in the following populations: [address] Individuals with unstable creatinine concentrations, including [...] BMI. ELECTROLYTE BUN 20 mg/dL 7 - 03/11 [facility] /2016 [facility] ELECTROLYTE Creatinine 0.59 mg/dL 0.50 - 03/11 [facility] S Lvl 1. [facility] ELECTROLYTE Sodium Lvl 137 meq/L 135 - 145 03/[address] ELECTROLYTE Potassium Lvl 4.1 meq/L 3.5 - 5.1 03/[address] ELECTROLYTE CO2 23 meq/L 24 - 32 03/[address] ELECTROLYTE Chloride Lvl 104 meq/L 95 - 109 03/[address] ELECTROLYTE Calcium Lvl 8.6 mg/dL 8.5 - 10.5 03/[address] ELECTROLYTE Glucose Lvl 95 mg/dL 70 - 99 03/[address] HEMATOLOGY Lymphocytes # 3.3 K/CMM 1.0 - 5.5 03/[address] HEMATOLOGY Segs-Bands # 9.6 K/CMM 1.5 - 8.1 03/[address] HEMATOLOGY Segs 67.9 % 45.0 - 03/11 [facility] 75.0 [facility] HEMATOLOGY Lymphocytes 23.3 % 20.0 - 03/11 [facility] 40.0 [facility] HEMATOLOGY Monocytes 6.4 % 2.0 - 12.0 03/[address] HEMATOLOGY Eosinophils 1.4 % 0.0 - 4.0 03/[address] HEMATOLOGY Basophils 1.0 % 0.0 - 1.0 03/[address] HEMATOLOGY Eosinophils # 0.2 K/CMM 0.0 - 0.5 03/[address] HEMATOLOGY Basophils # 0.1 K/CMM 0.0 - 0.2 03/[address] HEMATOLOGY Monocytes # 0.9 K/CMM 0.0 - 0.8 03/[address] HEMATOLOGY MPV 8.3 fL 7.4 - 10.4 03/[address] HEMATOLOGY MCH 32.2 pg 27.0 - 03/11 [facility] 31.0 [facility] HEMATOLOGY MCV 94.2 fL 80.0 - 03/11 [facility] 98.0 [facility] HEMATOLOGY Platelet 359 K/CMM 133 - 450 03/[address] HEMATOLOGY MCHC 34.2 g/dL 32.0 - 03/11 36.0 [facility] HEMATOLOGY RDW 14.3 % 11.5 - 03/11 14. [facility] HEMATOLOGY Hct 33.8 % 36.0 - 03/11 48.0 [facility] HEMATOLOGY WBC 14.1 K/CMM 3.7 - 10.4 03/11 [facility] HEMATOLOGY Hgb 11.5 g/dL 12.0 - 03/11 16.0 [facility] HEMATOLOGY RBC 3.59 M/CMM 4.20 - 03/11 [facility] 5.40 [facility] PARATHYROID Ca Ion WB 1.00 1.05 - 03/11 [facility] PROFILE mMol/L 1. [facility] PARATHYROID Ca Norm WB 1.06 1. - 03/11 [facility] PROFILE mMol/L . [facility] CHEM PANEL Magnesium Lvl 2.8 mg/dL 1.8 - 2.4 03/10 [facility] CHEM PANEL eGFR 98 03/10 Result Comment: The eGFR is calculated using the CKD-EPI formula. In most young, healthy individuals the eGFR will be >90 mL/ min/1.73m2. The eGFR declines with age. An eGFR of 60-89 may be normal in [facility] mL/min/1. some populations, particularly the elderly, for whom the CKD-EPI formula has not been extensively validated. Use of the eGFR is not recommended in the following populations: [address] Individuals with unstable creatinine concentrations, including [...] PANEL AGAP 9.6 meq/L 10.0 - 03/10 20. [facility] CHEM PANEL Calcium Lvl 8.8 mg/dL 8.5 - 10.5 03/10 [facility] CHEM PANEL Creatinine 0.58 mg/dL 0.50 - 03/10 [facility] Lvl 1.40 [facility] CHEM PANEL Potassium Lvl 3.6 meq/L 3.5 - 5.1 03/10 [facility] CHEM PANEL Sodium Lvl 135 meq/L 135 - 145 03/[address] CHEM PANEL CO2 29 meq/L 24 - 32 03/10 2016 [facility] CHEM PANEL Chloride Lvl 100 meq/L 95 - 109 03/[address] CHEM PANEL Glucose Lvl 85 mg/dL 70 - 99 03/[address] CHEM PANEL BUN 20 mg/dL 7 - 22 03/[address] CHEM PANEL Phosphorus 4.2 mg/dL 2.5 - 4.5 03/[address] HEMATOLOGY WBC 15.8 K/CMM 3.7 - 10.4 03/10 2016 [facility] HEMATOLOGY RBC 3.55 M/CMM 4.20 - 03/10 [facility] 5.40 [facility] HEMATOLOGY RDW 13.5 % 11.5 - 03/10 [facility] 14. [facility] HEMATOLOGY Platelet 333 K/CMM 133 - 450 03/[address] HEMATOLOGY MPV 8.7 fL 7.4 - 10.4 03/[address] [place] [address] HEMATOLOGY Hgb 11.1 g/dL 12.0 - 03/10 [facility] 16.0 [facility] HEMATOLOGY Hct 33.9 % 36.0 - 03/10 48.0 [facility] HEMATOLOGY MCV 95.6 fL 80.0 - 03/10 [facility] 98.0 [facility] HEMATOLOGY MCH 31.3 pg 27.0 - 03/10 [facility] 31.0 [facility] HEMATOLOGY MCHC 32.7 g/dL 32.0 - 03/10 [facility] 36.0 [facility] HEMATOLOGY Basophils # 0.2 K/CMM 0.0 - 0.2 03/10 [facility] HEMATOLOGY Monocytes # 1.3 K/CMM 0.0 - 0.8 03/[address] [place] [address] HEMATOLOGY Eosinophils # 0.2 K/CMM 0.0 - 0.5 03/[address] HEMATOLOGY Segs-Bands # 10.3 K/CMM 1.5 - 8.1 03/[address] HEMATOLOGY Lymphocytes # 3.9 K/CMM 1.0 - 5.5 03/[address] [place] [address] HEMATOLOGY Basophils 1.0 % 0.0 - 1.0 03/10 [facility] HEMATOLOGY Eosinophils 1.1 % 0.0 - 4.0 03/10 [facility] HEMATOLOGY Segs 64.9 % 45.0 - 03/10 [facility] 75.0 [facility] HEMATOLOGY Monocytes 8.2 % 2.0 - 12.0 03/10 [facility] HEMATOLOGY Lymphocytes 24.8 % 20.0 - 03/10 [facility] 40.0 [facility] PARATHYROID Ca Norm WB 1.11 1.05 - 03/10 [facility] PROFILE mMol/L 1. [facility] PARATHYROID Ca Ion WB 1.14 1. - 03/10 [facility] PROFILE mMol/L . [facility] ELECTROLYTE Sodium Lvl 133 meq/L 135 - 145 03/09 [facility] CHEM PANEL Magnesium Lvl 2.3 mg/dL 1.8 - 2.4 03/[address] CHEM PANEL Phosphorus 3.4 mg/dL 2.5 - 4.5 03/09 [facility]2016 [facility] ELECTROLYTE AGAP 14.7 meq/L 10.0 - 03/09 [facility] 20.0 [facility] ELECTROLYTE eGFR 99 03/09 Result Comment: The eGFR is calculated using the CKD-EPI formula. In most young, healthy individuals the eGFR will be >90 mL/ min/1.73m2. The eGFR declines with age. An eGFR of 60-89 may be normal in [facility] mL/min/1. some populations, particularly the elderly, for whom the CKD-EPI formula has not been extensively validated. Use of the eGFR is not recommended in the following populations: [address] Individuals with unstable creatinine concentrations, including [...] BUN 19 mg/dL 7 - 22 03/09 [facility] ELECTROLYTE Creatinine 0.56 mg/dL 0.50 - 03/09 [facility] Lvl 1.40 [facility] ELECTROLYTE Glucose Lvl 130 mg/dL 70 - 99 03/09 [facility] ELECTROLYTE Potassium Lvl 3.7 meq/L 3.5 - 5.1 03/09 [facility] 2016 [facility] ELECTROLYTE Chloride Lvl 100 meq/L 95 - 109 03/09 [facility]2016 [facility] ELECTROLYTE CO2 23 meq/L 24 - 32 03/09 [facility]2016 [facility] ELECTROLYTE Calcium Lvl 8.8 mg/dL 8.5 - 10.5 03/09 [facility]2016 [facility] HEMATOLOGY Segs-Bands # 11.6 K/CMM 1.5 - 8.1 03/[address] HEMATOLOGY Eosinophils 1.1 % 0.0 - 4.0 03/09 2016 [facility] HEMATOLOGY Basophils 1.0 % 0.0 - 1.0 03/09 2016 [facility] HEMATOLOGY Lymphocytes # 3.4 K/CMM 1.0 - 5.5 03/[address] HEMATOLOGY Segs 70.0 % 45.0 - 03/09 75.0 [facility] HEMATOLOGY Monocytes 7.2 % 2.0 - 12.0 03/[address] HEMATOLOGY Lymphocytes 20.7 % 20.0 - 03/09 40.0 [facility] HEMATOLOGY Monocytes # 1.2 K/CMM 0.0 - 0.8 03/09 [facility] HEMATOLOGY Basophils # 0.2 K/CMM 0.0 - 0.2 03/[address] [place] [address] HEMATOLOGY Eosinophils # 0.2 K/CMM 0.0 - 0.5 03/09 [facility] HEMATOLOGY Platelet 330 K/CMM 133 - 450 03/09 2016 [facility] HEMATOLOGY RDW 13.7 % 11.5 - 03/09 14.5 [facility] HEMATOLOGY MPV 8.1 fL 7.4 - 10.4 03/09 [facility] HEMATOLOGY MCH 31.9 pg 27.0 - 03/09 31.0 [facility] HEMATOLOGY Hct 33.3 % 36.0 - 03/09 48.0 [facility] HEMATOLOGY MCV 94.1 fL 80.0 - 03/09 98.0 [facility] HEMATOLOGY MCHC 33.8 g/dL 32.0 - 03/09 [facility] [place] 36.0 /2017 [facility] HEMATOLOGY WBC 16.6 K/CMM 3.7 - 10.4 03/09 /2016 [facility] HEMATOLOGY Hgb 11.3 g/dL 12.0 - 03/09 [place] 16.0 [facility] HEMATOLOGY RBC 3.54 M/CMM 4.20 - 03/09 [facility] 5.40 /2016 [facility] PARATHYROID Ca Norm WB 1.06 1.05 - 03/09 [facility] PROFILE mMol/L 1. [facility] PARATHYROID Ca Ion WB 1.02 1.05 - 03/09 [facility] PROFILE mMol/L 1. [facility] BLOOD BANK ABO/Rh A POS 03/08 [facility] BLOOD BANK Antibody Scrn Negative 03/08 [facility] (03/08/16 12:29 AM) [place] HEMATOLOGY PTT 27.1 s 22.9 - 03/08 [facility] 35.8 [facility] HEMATOLOGY PT 14.3 s 12.0 - 03/08 [facility] 14.7 [facility] HEMATOLOGY INR 1.09 0.85 - 03/08 [facility] 1. 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 Read by: [place] Nova Dictated Date/time: 03/08/16 [...] CSF 60 mg/dL 15 - 45 03/07 Result Comment: Medical "Significant Center Findings called to Rene Capone_at _03/07/2016 18:38_by _ _.Read Back OK." BODY FLUIDS Lactic Acid 3.2 mMol/L 0.6 - 2.2 03/07 [facility] BODY FLUIDS Glucose CSF 129 mg/dL 45 - 80 03/07 [facility] BODY FLUIDS Monocyte CSF 18 % 15 - 45 03/07 [facility] BODY FLUIDS Segs CSF 55 % 0 - 6 03/07 [facility] BODY FLUIDS Lymph CSF 27 % 40 - 80 03/07 [facility] BODY FLUIDS RBC CSF 13439 /mm3 0 - 03 03/07 [facility] BODY FLUIDS WBC CSF 69 /mm3 0 - 53 03/07 [facility] BODY FLUIDS Color CSF Red Colorless 03/07 [facility] *ABN* [place] (03/07/16 4:52 PM) BODY FLUIDS Clarity CSF Moderate Clear 03/07 [facility] *ABN* [place] (03/07/16 4:52 PM) BODY FLUIDS Tube Num CSF 1 03/07 [facility] BODY FLUIDS Supernat CSF Hemolyzed Colorless 03/07 [facility] *ABN* [place] (03/07/16 4:52 PM) URINE AND UA Sq Epi RARE 03/07 [facility] URINE AND UA Nitrite Negative Negative 03/07 [facility] (03/07/16 4:52 PM) [place] URINE AND UA Leuk Est Negative Negative 03/07 [facility] (03/07/16 4:52 PM) [place] URINE AND UA Blood Moderate Negative 03/07 [facility] *ABN* [place] (03/07/16 4:52 PM) URINE AND UA 0.2 EU/dL 0.1 - 1.0 03/07 [facility] Urobilinogen [facility] URINE AND UA Bili Negative Negative 03/07 [facility] *NA* [place] (03/07/16 4:52 PM) URINE AND UA Protein Negative Negative 03/07 [facility] (03/07/16 4:52 PM) [place] URINE AND UA Ketones Negative Negative 03/07 [facility] *NA* [place] (03/07/16 4:52 PM) URINE AND UA Glucose Negative Negative 03/07 [facility] (03/07/16 4:52 PM) [place] URINE AND UA Color Yellow Yellow 03/07 [facility] *NA* [place] (03/07/16 4:52 PM) URINE AND UA pH 6.5 5.0 - 8.0 03/07 [facility] URINE AND UA Turbidity Slight Cloudy Clear 03/07 [facility] (03/07/16 4:52 PM) [place] URINE AND UA Spec Grav 1.010 <=1.030 03/07 [facility] URINE AND UA RBC 12 /HPF 0 - 2 03/07 [facility]2016 [facility] URINE AND UA Mucus Few /LPF None Seen 03/07 [facility] /LPF /2016 [facility] URINE AND UA Bacteria Few /HPF None Seen 03/07 [facility] /[facility] /2016 [facility] URINE AND UA WBC 7 /HPF 0 - 5 03/07 [facility] Abdomen AP Abdomen AP DX EXAM: XR ABDOMEN 1 VIEW 03/06 - [facility] - [facility] DATE: 03/06/2016 2:24 AM ADVERTISING INSERTER Read by: Michelle House MD Dictated Date/time: [...] CSF 115 mg/dL 45 - 80 03/05 [facility] BODY FLUIDS Protein CSF 52 mg/dL 15 - 45 03/05 [facility]2016 [facility] BODY FLUIDS Segs CSF 69 % 0 - 6 03/05 [facility] BODY FLUIDS Lymph CSF 21 % 40 - 80 03/05 [facility] BODY FLUIDS Monocyte CSF 10 % 15 - 45 03/05 [facility] BODY FLUIDS Tube Num CSF [id number] 03/05 [facility] (03/05/16 4:02 PM) [place] BODY FLUIDS Color CSF Red Colorless 03/05 [facility] *ABN* [place] (03/05/16 4:02 PM) BODY FLUIDS Clarity CSF Marked Clear 03/05 [facility] *ABN* [place] (03/05/16 4:02 PM) BODY FLUIDS Supernat CSF Hemolyzed Colorless 03/05 [facility] *ABN* [place] (03/05/16 4:02 PM) BODY FLUIDS WBC CSF 233 /mm3 0 - 53 03/05 [facility] BODY FLUIDS RBC CSF [address]17 /mm3 0 - 03 03/05 [facility]2016 [facility] URINE AND UA <=1.0 0.1 - 1.0 03/05 [facility] Urobilinogen mg/dL [facility] URINE AND UA RBC 7 /HPF 0 - 2 03/05 [facility] [address] [place] [address] URINE AND UA Mucus Few /LPF None Seen 03/05 [facility] STOOL /LPF /[address] [place] [address] URINE AND Micro? Not Indicated 03/05 [facility] *NA* [place] (03/05/16 9:24 AM) URINE AND UA Nitrite Negative Negative 03/05 [facility] (03/05/16 9:24 AM) [place] URINE AND UA WBC 1 /HPF 0 - 5 03/[address] URINE AND UA Leuk Est Negative Negative 03/05 [facility]2016 [facility] (03/05/16 9:24 AM) [place] URINE AND UA Turbidity Clear Clear 03/05 [facility] (03/05/16 9:24 AM) [place] URINE AND UA Spec Grav 1.011 <=1.030 03/05 [facility] [address] [place] [address] URINE AND UA Bili Negative Negative 03/05 [facility] *NA* [place] (03/05/16 9:24 AM) URINE AND UA Ketones Negative Negative 03/05 [facility] mg/dL mg/dL [facility] URINE AND UA Glucose 300 mg/dL Negative 03/05 [facility] mg/dL [facility] URINE AND UA Color Yellow Yellow 03/05 [facility] Medical *NA* Center (03/05/16 9:24 AM) URINE AND UA Blood Negative Negative 03/05 [facility] STOOL /2016 Medical (03/05/16 9:24 AM) Center URINE AND UA pH 7.0 5.0 - 8.0 03/05 [facility] STOOL /2016 [facility] Center URINE AND UA Protein Negative Negative 03/05 [facility] STOOL mg/dL mg/dL /2016 [facility] Center Abdomen AP Abdomen AP DX EXAM: XR ABDOMEN 1 VIEW 03/05 - [facility] DX - Medical EXAM: XR ABDOMEN 1 VIEW This report was dictated by a Apartment Maintenance Manager/Fellow. I have personally reviewed the images as [...] gas pattern. Angiogram Angiogram PROCEDURE: 03/04 - [facility] cervical /2016 - Medical artery artery 1. Diagnostic Cerebral Angiogram: This report was dictated by a Apartment Maintenance Manager/Fellow. I have personally reviewed the images as Center bilateral bilateral VR well as the Resident's interpretation and agree with the findings. VR Read by: Bernard Overton MD Resident: Bernard Overton MD Dictated Date/time: 03/04/16 17:01 DATE: 03/04/2016 3:46 PM ADVERTISING INSERTER Electronically Signed by: Mathieu Abdullahi MD 03/14/16 [...] single wall micropuncture technique and a 5 [place] Islander sheath was placed. A 5 [place] Vert catheter was coaxially advanced with a [...] mm. BLOOD BANK Antibody Scrn Negative 03/04 [facility] (03/04/16 12:31 AM) [place] BLOOD BANK ABO/Rh A POS 03/04 [place] RESULTS /2016 [facility] HEMATOLOGY PTT 28.1 s 22.9 - 03/04 [place] 35.8 /2016 [facility] HEMATOLOGY PT 14.5 s 12.0 - 03/04 [place] 14.7 /2016 [facility] HEMATOLOGY INR 1.11 0.85 - 03/04 [place] 1.17 [facility] Chest 1view Chest 1view EXAM: XR CHEST 1 VIEW 03/02 - [facility] DX DX /2016 - [facility] DATE: 03/02/2016 3:00 AM ADVERTISING INSERTER Read by: Eusebia Smith MD Dictated Date/time: [...] CSF 87 mg/dL 15 - 45 03/01 Result Comment: Medical "Significant Center Findings called to Isaac Sylvia_at 03/01/2016 17:12__by __.Read Back OK." BODY FLUIDS Lactic Acid 2.7 mMol/L 0.6 - 2.2 03/01 [facility] BODY FLUIDS Glucose CSF 78 mg/dL 45 - 80 03/01 [facility] BODY FLUIDS Monocyte CSF 13 % 15 - 45 03/01 [facility] BODY FLUIDS Lymph CSF 13 % 40 - 80 03/01 [facility] BODY FLUIDS Segs CSF 74 % 0 - 6 03/01 [facility] BODY FLUIDS WBC CSF 233 /mm3 0 - 53 03/01 [facility] BODY FLUIDS RBC CSF 86290 /mm3 0 - 03 03/01 [facility] BODY FLUIDS Clarity CSF Marked Clear 03/01 [facility] *ABN* [place] (03/01/16 3:14 PM) BODY FLUIDS Supernat CSF Hemolyzed Colorless 03/01 [facility] *ABN* [place] (03/01/16 3:14 PM) BODY FLUIDS Color CSF Red Colorless 03/01 [facility] *ABN* [place] (03/01/16 3:14 PM) BODY FLUIDS Tube Num CSF xxxxxxx 03/01 [facility] (03/01/16 3:14 PM) [place] Chest 1view Chest 1view EXAM: XR CHEST 1 VIEW 03/01 - [facility] DX DX - [facility] DATE: 03/01/2016 3:00 AM ADVERTISING INSERTER Read by: Vasiliy Bui MD Dictated Date/time: [...] AND UA Sq Epi None Seen 02/28 [facility] URINE AND UA <=1.0 0.1 - 1.0 02/28 [facility] Urobilinogen mg/dL /2016 [facility] URINE AND UA Nitrite Negative Negative 02/28 [facility] (02/29/16 11:57 AM) [place] URINE AND UA RBC 2 /HPF 0 - 2 02/28 [facility] Center2016 [facility] URINE AND UA WBC 2 /HPF 0 - 5 02/28 [facility]2016 [facility] URINE AND UA Leuk Est Negative Negative 02/28 [facility] (02/29/16 11:57 AM) [place] URINE AND UA Blood Negative Negative 02/28 [facility] (02/29/16 11:57 AM) [place] URINE AND UA Hyal Cast 1 /LPF 0 - 2 02/28 [facility]2016 [facility] URINE AND UA Mucus Few /LPF None Seen 02/28 [place] STOOL /LPF /2016 [facility] URINE AND UA Spec Grav 1.016 <=1.030 02/28 [facility]2016 [facility] URINE AND UA pH 5.5 5.0 - 8.0 02/[address] URINE AND UA Turbidity Slight Clear 02/28 [facility] (02/29/16 11:57 AM) URINE AND UA Protein Negative Negative 02/28 [facility] STOOL mg/dL mg/dL [facility] URINE AND UA Bili Negative Negative 02/28 [facility] *NA* [place] (02/29/16 11:57 AM) URINE AND UA Ketones Negative Negative 02/28 [facility] STOOL mg/dL mg/dL [facility] URINE AND UA Glucose 30 mg/dL Negative 02/28 [facility] mg/dL [facility] URINE AND UA Color Yellow Yellow 02/28 [facility] [place] (02/29/16 11:57 AM) CARDIAC Troponin-I null 0.00 - 02/28 [facility] ENZYMES 0.40 [facility] Chest 1view Chest 1view EXAM: XR CHEST 1 VIEW 02/28 [facility] DX DX [facility] DATE: 02/29/2016 3:00 AM ADVERTISING INSERTER Read by: Vasiliy Bui MD Dictated Date/time: [...] wo Brain wo EXAM: CT BRAIN 02/27 - [facility] contrast CT contrast CT /2016 [facility] DATE: 02/28/2016 at 15:27 Read by: [...] EXAM: XR CHEST 1 VIEW 02/27 - [facility] DX [facility] DATE: 02/28/2016 3:00 AM ADVERTISING INSERTER Read by: Vasiliy Bui MD Dictated Date/time: [...] AND UA Sq Epi None Seen 02/26 [facility] STOOL /2016 [facility] Center BACTERIAL - MRSA by PCR Negative 02/26 [facility] SEROLOGY /2016 [facility] (02/27/16 8:34 AM) Center Abdomen AP Abdomen AP DX EXAM: XR ABDOMEN 1 VIEW 02/26 - [place] DX /2016 [facility] DATE: 02/27/2016 10:13 AM ADVERTISING INSERTER Read by: Ashwin Guerra MD Dictated Date/time: [...] SCREEN U Opiate Scr Negative Negative 02/26 [facility] [place] (02/27/16 12:41 AM) DRUG SCREEN U Cannab Scr Negative Negative 02/26 [facility] (02/27/16 12:41 AM) DRUG SCREEN U Benzodia Negative Negative 02/26 [facility] (02/27/16 12:41 AM) DRUG SCREEN U Propoxyph Negative Negative 02/26 [facility] (02/27/16 12:41 AM) DRUG SCREEN U Methadone Negative Negative 02/26 [facility] (02/27/16 12:41 AM) DRUG SCREEN U Cocaine Scr Negative Negative 02/26 [facility] (02/27/16 12:41 AM) DRUG SCREEN U Phencyc Scr Negative Negative 02/26 [facility] (02/27/16 12:41 AM) DRUG SCREEN U Belinda Scr Negative Negative 02/26 [facility] (02/27/16 12:41 AM) DRUG SCREEN U Amph Scr Negative Negative 02/26 [facility] (02/27/16 12:41 AM) DRUG SCREEN UDS Note See Note 02/26 [facility] (02/27/16 12:41 AM) URINE AND UA Bacteria Occasional None Seen 02/26 [facility] STOOL /HPF /HPF [facility] URINE AND UA Amorph Occasional None Seen 02/26 [facility] STOOL Trixie /HPF /HPF [facility] HEMATOLOGY TEG Interp Thrombelas 02/26 [facility] tograph [facility] results [place] show shortened value of R and increased value of Angle Alpha. 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.CPT :67318 HEMATOLOGY Angle 74.3 53.0 - 02/26 [facility] degrees 72.0 [facility] HEMATOLOGY Max Amp 69.2 mm 50.0 - 02/26 [place] 70.0 [facility] HEMATOLOGY Coag Index 3.5 -3.0-3.0 - 02/26 [facility] 3.0 [facility] HEMATOLOGY G-value 11.3 K 4.5 - 11.0 02/26 [facility] d/sc [facility] HEMATOLOGY Ly30 0.8 % 0.0 - 7.5 02/26 [facility]2016 [facility] HEMATOLOGY TEG Data See Note 02/26 [facility] (02/27/16 12:40 AM) [place] HEMATOLOGY R-time 3.8 min 5.0 - 10.0 02/26 [facility] HEMATOLOGY K-time 0.9 min 1.0 - 3.0 02/26 [facility] HEMATOLOGY INR 1.23 0.85 - 02/26 [facility] 1. [facility] HEMATOLOGY PT 15.8 s 12.0 - 02/26 [facility] 14.7 [facility] HEMATOLOGY PTT 25.3 s 22.9 - 02/26 [facility] 35.8 [facility] SPECIAL Hgb A1C 8.9 % <=5.6 % 02/26 [facility] CHEMISTRY [facility] Brain wo Brain wo CT HEAD WITHOUT CONTRAST 02/26 - [facility] contrast CT contrast CT /2016 - [facility] DATE: 02/27/2016 at 1:53 AM. Read by: [...] for EXAM: XR CHEST 1 VIEW 02/26 [facility] for Placement DX /2016 - [facility] DX DATE: 02/27/2016 at 0018 hours Read by: Gita Gnanon MD Dictated Date/time: 02/27/16 07:09 Electronically Signed [...] EXAM: XR CHEST 1 VIEW 02/25 - [facility] DX DX /2016 - [facility] DATE: 02/26/2016 at 2120 hours Read by: [...] Brain wo CT HEAD WITHOUT CONTRAST 02/25 [facility] contrast CT contrast CT /2017 - [facility] DATE: 02/26/2016 at 9:08 PM. Read by: [...] brain. HEMATOLOGY POC Activated 154 s 02/25 [facility] Clotting Time [facility] BLOOD BANK Antibody Scrn Negative 02/25 [facility] RESULTS [facility] (02/26/16 3:00 AM) [place] BLOOD BANK ABO/Rh A POS 02/25 [facility] [address] [place] [address] CHEM PANEL Bili Total 0.4 mg/dL 0.2 - 1.3 02/[address] CHEM PANEL Alk Phos 81 unit/L 39 - 136 02/[address] CHEM PANEL AST 45 unit/L 0 - 37 02/[address] CHEM PANEL Total Protein 7.8 g/dL 6.4 - 8.4 02/[address] CHEM PANEL Albumin Lvl 3.7 g/dL 3.5 - 5.0 02/[address] CHEM PANEL ALT 52 unit/L 0 - 65 02/[address] CHEM PANEL A/G Ratio 0.9 0.7 - 1.6 02/[address] CHEM PANEL Globulin 4.1 g/dL 2.7 - 4.2 02/[address] CHEM PANEL B/C Ratio 27 6 - 25 02/[address] HEMATOLOGY G-value Rapid 10.5 K 5.0 - 11.6 02/25 [facility] d/sc [facility] HEMATOLOGY Max Amplitude 68 mm 52 - 71 02/[address] HEMATOLOGY K-time Rapid 1.1 min 0.6 - 2.3 02/[address] HEMATOLOGY Angle Rapid 76 degrees 64 - 80 02/[address] HEMATOLOGY [place] 0.6 min 02/[address] HEMATOLOGY R-time Rapid 0.8 min 0.4 - 0.7 02/25 [facility]2016 [facility] HEMATOLOGY ACT (TEG) 121 s 86 - 118 02/25 [facility] /2016 [facility] HEMATOLOGY Estimated % 0.6 % 0.0 - 7.5 02/25 [facility] Lysis Rapid [facility] Angiogram Angiogram PROCEDURE: 02/25 - [facility] - Medical artery artery 1. Diagnostic Cerebral Angiogram: This report was dictated by a Apartment Maintenance Manager/Fellow. I have personally reviewed the images as Center bilateral bilateral VR well as the Resident's interpretation and agree with the findings. VR 2. 3D angiography: Bilateral internal carotid artery Read by: Bernard Overton MD Resident: Bernard Overton MD Dictated Date/time: 02/26/16 09:08 Electronically Signed by: Ji Mcdowell MD 03/07/16 12:30 FINAL REPORT DATE: 02/26/2016 7:11 AM ADVERTISING INSERTER INDICATION: Due to the patient clinical presentation [...] single wall micropuncture technique and a 5 [place] Islander sheath was placed. A 5 [place]er Vert catheter was coaxially advanced with a [...] wo EXAM: CT HEAD WITHOUT CONTRAST 02/25 [facility] contrast CT contrast CT /2016 - [facility] DATE: 02/26/2016 348 AM ADVERTISING INSERTER Read by: Cecilio Finney MD Dictated Date/time: [...] in agreement with preliminary report made by manager operations and procurement administration vice president: Creator: Joe Downey Date: Feb 26, 2016 03:59:21 Subject: Extensive right frontotemporal subarachnoid hemorrhage with extension into the basal cisterns and interhemispheric fissure appears more pro minent than on prior exam. Findings communicated to Dr. Murphy at 0400 hours on 02/26/2016. Spine Spine EXAM: CT CERVICAL SPINE WITHOUT CONTRAST 02/25 - [facility] cervical cervical - Medical contrast CT contrast CT This report was dictated by a Apartment Maintenance Manager/Fellow. I have personally reviewed the images as Center well as the Resident's interpretation and agree with the findings. DATE: 02/26/2016 3:23 AM ADVERTISING INSERTER Read by: Joe Downey MD Resident: Joe [...] C5-C6. Brain/Neck Brain/Neck EXAM: CTA BRAIN 02/25 [facility] CTA CTA /2016 - Medical EXAM: CTA NECK Center Read by: Nando Oliver MD Dictated Date/time: 02/26/16 09:37 DATE: 02/26/2016 3:22 AM ADVERTISING INSERTER Electronically Signed by: Nando Oliver MD 02/26/16 [...] Brain-Outside EXAM: CT HEAD WITHOUT CONTRAST 02/25 [facility] de Consult Consult CT /2016 - Medical CT Center DATE: Study was performed at outside hospital on 02/26/2016 at 1221 hours and submitted for 2nd interpretation on 02/26/2016 2:55 AM ADVERTISING INSERTER Read by: Cecilio Finney MD Dictated Date/time: [...] in agreement with preliminary report made by manager operations and procurement administration vice president: Creator: Joe Downey Date: Feb 26, 2016 03:09:02 Subject: Extensive right frontotemporal subarachnoid hemorrhage with extension into the basal cisterns. Findings were originally communicated to Dr. Mckeon from prior outside report. Chest 1view Chest 1view EXAM: XR CHEST 1 VIEW 02/25 - [facility] DX DX /2016 - Medical This report was dictated by a Apartment Maintenance Manager/Fellow. I have personally reviewed the images as Center well as the Resident's interpretation and agree with the findings. DATE: 02/26/2016 2:46 AM ADVERTISING INSERTER Read by: Joe Downey MD Resident: Joe [...] Signs Vital Sign Value Date Comments Source Temperature Oral (F) 98.0 F 08/26/2017 [facility] Respitory Rate 18 08/26/2017 [facility] Systolic (mm Hg) 126 08/26/2017 [facility] Diastolic (mm Hg) 83 08/26/2017 [facility] Heart Rate 67 08/26/2017 [facility] Heart Rate 60 08/26/2017 [facility] Respitory Rate 18 08/26/2017 [facility] Systolic (mm Hg) 109 08/26/2017 [facility] Diastolic (mm Hg) 61 08/26/2017 [facility] Temperature Oral (F) 98.8 F 08/26/2017 [facility] Temperature Oral (F) 97.5 F 08/26/2017 [facility] Heart Rate 60 08/26/2017 [facility] Systolic (mm Hg) 110 08/26/2017 [facility] Diastolic (mm Hg) 61 08/26/2017 [facility] Respitory Rate 18 08/26/2017 [facility] Weight 77.273 08/25/2017 [facility] BMI Calculated 42.64 08/25/2017 [facility] Height 134.62 cm 08/25/2017 [facility] BMI Calculated 29.24 08/24/2017 [facility] Height 162.56 cm 08/24/2017 [facility] Weight 77.273 08/24/2017 [facility] Weight 77.273 08/24/2017 [facility] BMI Calculated 29.24 08/24/2017 [facility] Height 162.56 cm 08/24/2017 [facility] Weight 75.4 06/20/2016 [facility] Respitory Rate 39 06/20/2016 [facility] Systolic (mm Hg) 105 06/20/2016 [facility] Center Diastolic (mm Hg) 55 06/20/2016 [facility] Respitory Rate 20 06/20/2016 [facility] Systolic (mm Hg) 114 06/20/2016 [facility] Center Diastolic (mm Hg) 57 06/20/2016 [facility] Respitory Rate 20 06/20/2016 [facility] Systolic (mm Hg) 114 06/20/2016 [facility] Diastolic (mm Hg) 57 06/20/2016 [facility] BMI Calculated 27.52 06/19/2016 [facility] Weight 72.727 06/19/2016 [facility] Height 162.56 cm 06/19/2016 [facility] Heart Rate 82 06/19/2016 [facility] Height 162.56 cm 06/18/2016 [facility] BMI Calculated 27.52 06/18/2016 [facility] Weight 72.727 06/18/2016 [facility] Temperature Oral (F) 97.9 F 03/29/2016 [facility] Systolic (mm Hg) 99 03/29/2016 [facility] Diastolic (mm Hg) 57 03/29/2016 [facility] Heart Rate 71 03/29/2016 [facility] Temperature Oral (F) 98.5 F 03/29/2016 [facility] Heart Rate 69 03/29/2016 [facility] Systolic (mm Hg) 94 03/29/2016 [facility] Center Diastolic (mm Hg) 62 03/29/2016 [facility] Respitory Rate 16 03/29/2016 [facility] Respitory Rate 18 03/28/2016 [facility] Systolic (mm Hg) 134 03/28/2016 [facility] Diastolic (mm Hg) 71 03/28/2016 [facility] Temperature Oral (F) 98.3 F 03/28/2016 [facility] Heart Rate 66 03/28/2016 [facility] Respitory Rate 18 03/28/2016 [facility] Weight 75 03/12/2016 [facility] BMI Calculated 28.38 03/12/2016 [facility] Height 162.56 cm 03/12/2016 [facility] Weight 75 03/12/2016 [facility] BMI Calculated 28.38 03/12/2016 [facility] Height 162.56 cm 03/12/2016 [facility] Systolic (mm Hg) 109 03/12/2016 [facility] Diastolic (mm Hg) 66 03/12/2016 [facility] Respitory Rate 18 03/12/2016 [facility] Heart Rate 86 03/12/2016 [facility] Temperature Oral (F) 100.1 F 03/12/2016 [facility] Systolic (mm Hg) 124 03/12/2016 [facility] Diastolic (mm Hg) 60 03/12/2016 [facility] Systolic (mm Hg) 119 03/11/2016 [facility] Diastolic (mm Hg) 62 03/11/2016 [facility] Heart Rate 86 03/11/2016 [facility] Respitory Rate 18 03/11/2016 [facility] Temperature Oral (F) 98.3 F 03/11/2016 [facility] Temperature Oral (F) 98.0 F 03/11/2016 [facility] Respitory Rate 18 03/11/2016 [facility] Heart Rate 89 03/11/2016 [facility] Height 160.02 cm 03/01/2016 [facility] Height 160.02 cm 03/01/2016 [facility] Height 160.02 cm 03/01/2016 [facility] Weight 90.009 02/26/2016 [facility] BMI Calculated 35.15 02/26/2016 [facility] Weight 90.909 02/26/2016 [facility] BMI Calculated 34.4 02/26/2016 [facility] Encounters Location Location Encounter Encounter Reason Attending ADM DC Status Source Details Type Number For Provider Date Date Visit [facility] [id number] Isauro Day 02/25 03/12 [facility] Inpatient [id number] Boom 03/12 03/29 [facility] [id number] ISAURO L 04/17 Active [facility] [id number] JI MCDOWELL 05/24 [facility] Inpatient [id number] Ji Mcdowell 06/19 06/20 [facility] [id number] Veronika 08/24 08/26 [facility] Procedures Procedure Code Date Perfomer Comments Source Selective catheter [id number] 06/19/2016 [facility] placement, common Medical carotid or innominate Center artery, unilateral, any approach, with angiography of the ipsilateral extracranial carotid circulation and all associated radiological supervision and interpretation, includes angiography of the c Selective catheter [id number] 06/19/2016 [facility] placement, internal Medical carotid artery, Center unilateral, with angiography of the ipsilateral intracranial carotid circulation and all associated radiological supervision and interpretation, includes angiography of the extracranial carotid and ce Selective catheter [id number] 03/04/2016 [facility] placement, vertebral Medical artery, unilateral, Center with angiography of the ipsilateral vertebral circulation and all associated radiological supervision and interpretation, includes angiography of the cervicocerebral arch, when performed Selective catheter [id number] 02/27/2016 [facility] placement, internal Medical carotid artery, Center unilateral, with angiography of the ipsilateral intracranial carotid circulation and all associated radiological supervision and interpretation, includes angiography of the extracranial carotid and ce Craniotomy and [id number] [facility] clipping of Medical intracranial aneurysm Center Repair of aneurysm by [id number] [facility]
--- OUTSIDE RECORDS SUMMARY | 2018-04-21 12:57 | XMS REPORT | Summary of Care ---
:1950 Author Organization [facility] Address [address] [place] [id number] Encounter HQ Naborr_ariella(FIN) [id number] Date(s): 08/24/17 - 08/26/[address] Professional Services provided by [facility] [place] [address]- Encounter Diagnosis Other specified disorders of brain (Final) - 09/04/17 Weakness (Final) - Hyperlipidemia, unspecified (Final) - Type 2 diabetes mellitus with hyperglycemia (Final) - Hypertensive chronic kidney disease with stage 1 through stage 4 chronic kidney disease, or unspecified chronic kidney disease (Final) - Type 2 diabetes mellitus with diabetic chronic kidney disease (Final) - Chronic kidney disease, stage 2 (mild) (Final) - Dependence on renal dialysis (Final) - FPC (current) use of oral hypoglycemic drugs (Final) - Discharge Disposition: Home or Self Care Attending Physician: Veronika Cavazos MD Admitting Physician: Veronika Cavazos MD Vital Signs Most recent to oldest 1 2 3 [Reference Range]: Height 134.62 cm 162.56 cm 162.56 cm (08/25/17 9:36 AM) (08/24/17 5:40 PM) (08/24/17 5:24 PM) Temperature Oral [96.4-99.1 98.0 DegF 98.8 DegF 97.5 DegF DegF] (08/26/17 5:04 PM) (08/26/17 12:41 PM) (08/26/17 10:05 AM) Blood Pressure [90-140/60-90 126/83 mmHg 109/61 mmHg 110/61 mmHg mmHg] (08/26/17 5:04 PM) (08/26/17 12:41 PM) (08/26/17 10:05 AM) Respiratory Rate [14-20 18 BRMIN 18 BRMIN 18 BRMIN BRMIN] (08/26/17 5:04 PM) (08/26/17 12:41 PM) (08/26/17 10:05 AM) Peripheral Pulse Rate [60-100 67 bpm 60 bpm 60 bpm bpm] (08/26/17 5:04 PM) (08/26/17 12:41 PM) (08/26/17 10:05 AM) Weight 77.273 kg 77.273 kg 77.273 kg (08/25/17 9:36 AM) (08/24/17 5:40 PM) (08/24/17 5:24 PM) Body Mass Index 42.64 m2 29.24 m2 29.24 m2 (08/25/17 9:36 AM) (08/24/17 5:40 PM) (08/24/17 5:24 PM) Problem List Condition Effective Dates Status [...] Substance Reaction Severity Status NKDA Active Medications Amaryl 4 mg oral tablet 4 mg=1 tab, PO, Daily, 0 Refill(s) Start Date: 08/25/17 Status: Orderedaspirin 81 mg tablet, enteric coated 81 mg, 1 tab, Route: PO, Drug form: ECTAB, Q24H, Dosing Weight 77.273, kg, Start date: 08/24/17 15:00:00 CDT, Duration: 30 day, Stop date: 09/22/17 15:00: 00 CDT Notes: Do not crush or chew.(Same As: Ecotrin) Start Date: 08/24/17 Stop Date: 08/25/17 Status: Discontinuedatorvastatin 80 mg, 1 tab, Route: PO, Drug form: TAB, Bedtime, Dosing Weight 77.273, kg, Start date: 08/24/17 21:00:00 CDT, Duration: 30 day, Stop date: 09/22/17 21:00: 00 CDT Notes: Same as Lipitor Start Date: 08/24/17 Stop Date: 08/25/17 Status: Discontinuedclopidogrel 75 mg oral tablet 75 mg=1 tab, PO, Daily, # 90 tab, 1 Refill(s), Pharmacy: [id number] Start Date: 08/25/17 Status: OrderedDextrose 50% Syringe 25 gm, 50 mL, Route: IVP, Drug Form: INJ, Dosing Weight 77.273, kg, PRN, PRN Blood Glucose Results, Start date: 08/25/17 12:11:00 CDT, Duration: 30 day, Stop date: 09/24/17 12:10:00 CDT Start Date: 08/25/17 Stop Date: 08/26/17 Status: DiscontinuedDextrose 50% Syringe 12.5 gm, 25 mL, Route: IVP, Drug Form: INJ, Dosing Weight 77.273, kg, PRN, PRN Blood Glucose Results, Start date: 08/25/17 12:11:00 CDT, Duration: 30 day, Stop date: 09/24/17 12:10:00 CDT Start Date: 08/25/17 Stop Date: 08/26/17 Status: Discontinuedglucagon 1 mg, Route: IM, Drug form: PDR/INJ, PRN, Dosing Weight 77.273, kg, PRN Blood Glucose Results, Startdate: 08/25/17 12:11:00 CDT, Duration: 30 day, Stop date: 09/24/17 12:10:00 CDT Start Date: 08/25/17 Stop Date: 08/26/17 Status: Discontinuedheparin 5,000 unit, 1 mL, Route: SUB-Q, Drug form: INJ, Q8H, Dosing Weight 77.273, kg, ( For patients weighing < 100 kg)., Start date: 08/24/17 16:00:00 CDT, Duration : 30 day, Stop date: 09/23/17 8:00:00 CDT Notes: porcine heparin Start Date: 08/24/17 Stop Date: 08/26/17 Status: Discontinuedinsulin lispro 3 unit, 0.03 mL, Route: SUB-Q, Drug form: SOLN, Bedtime, Dosing Weight 77.273, kg, PRN Blood GlucoseResults, Start date: 08/25/17 12:11:00 CDT, Duration: 30 day, Stop date: 09/24/17 12:10:00 CDT Notes: (Same as: Humalog ) Roll in palms of hands gently; Do not shake ` vigorously. "Single PatientUse Only " WASTE: F/P - Black; E - Municipal Trash Bin Stable for 28 days at room temperature.Expires in days from Date Start Date: 08/25/17 Stop Date: 08/26/17 Status: Discontinuedinsulin lispro 4 unit, 0.04 mL, Route: SUB-Q, Drug form: SOLN, Bedtime, Dosing Weight 77.273, kg, PRN Blood GlucoseResults, Start date: 08/25/17 12:11:00 CDT, Duration: 30 day, Stop date: 09/24/17 12:10:00 CDT Notes: (Same as: Humalog ) Roll in palms of hands gently; Do not shake ` vigorously. "Single PatientUse Only " WASTE: F/P - Black; E - Municipal Trash Bin Stable for 28 days at room temperature.Expires in days from Date Start Date: 08/25/17 Stop Date: 08/26/17 Status: Discontinuedinsulin lispro 1 unit, 0.01 mL, Route: SUB-Q, Drug form: SOLN, TID-Before Meals, Dosing Weight 77.273, kg, PRN Blood Glucose Results, Start date: 08/25/17 12:11:00 CDT, Duration: 30 day, Stop date: 09/24/17 12:10:00 CDT Notes: (Same as: Humalog ) Roll in palms of hands gently; Do not shake ` vigorously. "Single PatientUse Only " WASTE: F/P - Black; E - Municipal Trash Bin Stable for 28 days at room temperature.Expires in days from Date Start Date: 08/25/17 Stop Date: 08/26/17 Status: Discontinuedinsulin lispro 1 unit, 0.01 mL, Route: SUB-Q, Drug form: SOLN, Bedtime, Dosing Weight 77.273, kg, PRN Blood GlucoseResults, Start date: 08/25/17 12:11:00 CDT, Duration: 30 day, Stop date: 09/24/17 12:10:00 CDT Notes: (Same as: Humalog ) Roll in palms of hands gently; Do not shake ` vigorously. "Single PatientUse Only " WASTE: F/P - Black; E - Municipal Trash Bin Stable for 28 days at room temperature.Expires in days from Date Start Date: 08/25/17 Stop Date: 08/26/17 Status: Discontinuedinsulin lispro 2 unit, 0.02 mL, Route: SUB-Q, Drug form: SOLN, Bedtime, Dosing Weight 77.273, kg, PRN Blood GlucoseResults, Start date: 08/25/17 12:11:00 CDT, Duration: 30 day, Stop date: 09/24/17 12:10:00 CDT Notes: (Same as: Humalog ) Roll in palms of hands gently; Do not shake ` vigorously. "Single PatientUse Only " WASTE: F/P - Black; E - Municipal Trash Bin Stable for 28 days at room temperature.Expires in days from Date Start Date: 08/25/17 Stop Date: 08/26/17 Status: Discontinuedinsulin lispro 4 unit, 0.04 mL, Route: SUB-Q, Drug form: SOLN, TID-Before Meals, Dosing Weight 77.273, kg, PRN Blood Glucose Results, Start date: 08/25/17 12:11:00 CDT, Duration: 30 day, Stop date: 09/24/17 12:10:00 CDT Notes: (Same as: Humalog ) Roll in palms of hands gently; Do not shake ` vigorously. "Single PatientUse Only " WASTE: F/P - Black; E - Municipal Trash Bin Stable for 28 days at room temperature.Expires in days from Date Start Date: 08/25/17 Stop Date: 08/26/17 Status: Discontinuedinsulin lispro 5 unit, 0.05 mL, Route: SUB-Q, Drug form: SOLN, TID-Before Meals, Dosing Weight 77.273, kg, PRN Blood Glucose Results, Start date: 08/25/17 12:11:00 CDT, Duration: 30 day, Stop date: 09/24/17 12:10:00 CDT Notes: (Same as: Humalog ) Roll in palms of hands gently; Do not shake ` vigorously. "Single PatientUse Only " WASTE: F/P - Black; E - Municipal Trash Bin Stable for 28 days at room temperature.Expires in days from Date Start Date: 08/25/17 Stop Date: 08/26/17 Status: Discontinuedinsulin lispro 2 unit, 0.02 mL, Route: SUB-Q, Drug form: SOLN, TID-Before Meals, Dosing Weight 77.273, kg, PRN Blood Glucose Results, Start date: 08/25/17 12:11:00 CDT, Duration: 30 day, Stop date: 09/24/17 12:10:00 CDT Notes: (Same as: Humalog ) Roll in palms of hands gently; Do not shake ` vigorously. "Single PatientUse Only " WASTE: F/P - Black; E - Municipal Trash Bin Stable for 28 days at room temperature.Expires in days from Date Start Date: 08/25/17 Stop Date: 08/26/17 Status: Discontinuedinsulin lispro 3 unit, 0.03 mL, Route: SUB-Q, Drug form: SOLN, TID-Before Meals, Dosing Weight 77.273, kg, PRN Blood Glucose Results, Start date: 08/25/17 12:11:00 CDT, Duration: 30 day, Stop date: 09/24/17 12:10:00 CDT Notes: (Same as: Humalog ) Roll in palms of hands gently; Do not shake ` vigorously. "Single PatientUse Only " WASTE: F/P - Black; E - Municipal Trash Bin Stable for 28 days at room temperature.Expires in days from Date Start Date: 08/25/17 Stop Date: 08/26/17 Status: DiscontinuedLipitor 10 mg, 1 tab, Route: PO, Drug form: TAB, Bedtime, Start date: 08/25/17 21:00:00 CDT, Duration: 30 day, Stop date: 09/23/17 21:00:00 CDT Notes: (Same As: Lipitor) Start Date: 08/25/17 Stop Date: 08/26/17 Status: Discontinuedlisinopril 20 mg oral tablet 20 mg=1 tab, PO, Daily, 0 Refill(s) Start Date: 08/25/17 Status: Orderedlovastatin 10 mg, Route: PO, Drug form: TAB, Daily, Dosing Weight 77.273, kg, Start date: 08/26/17 9:00:00 CDT,Duration: 30 day, Stop date: 09/24/17 9:00:00 CDT Start Date: 08/26/17 Stop Date: 08/25/17 Status: Deletedlovastatin 10 mg oral tablet 10 mg=1 tab, PO, Daily, 0 Refill(s) Start Date: 08/25/17 Status: OrderedmetFORMIN 1000 mg oral tablet 1,500 mg, PO, BID-Meals, # 270 tab, 1 Refill(s), Pharmacy: [id number] Start Date: 08/25/17 Stop Date: 08/26/17 Status: DiscontinuedmetFORMIN 1000 mg oral tablet 1,000 mg=1 tab, PO, BID-Meals, # 30 tab, 0 Refill(s) Start Date: 08/25/17 Stop Date: 08/25/17 Status: DiscontinuedmetFORMIN 1000 mg oral tablet 1,250 mg, PO, BID-Meals, # 180 tab, 1 Refill(s), Pharmacy: [id number] Start Date: 08/26/17 Status: OrderedPlavix 75 mg, Route: PO, Drug form: TAB, Daily, Dosing Weight 77.273, kg, Start date: 08/26/17 9:00:00 CDT,Duration: 30 day, Stop date: 09/24/17 9:00:00 CDT Start Date: 08/26/17 Stop Date: 08/25/17 Status: CanceledPlavix 75 mg, 1 tab, Route: PO, Drug form: TAB, Daily, Dosing Weight 77.273, kg, Start date: 08/25/17 12:00:00 CDT, Duration: 30 day, Stop date: 09/24/17 9:00:00 CDT Notes: (Same As: Plavix) Start Date: 08/25/17 Stop Date: 08/26/17 Status: DiscontinuedSaline Flush 0.9% 10 mL, Route: IVP, Drug Form: INJ, kg, PRN, PRN Line Flush, Start date: 14:05:00 CDT, Duration: 30 day, Stop date: 09/23/17 14:04:00 CDT Notes: (Same as: BD Posiflush) Start Date: 08/24/17 Stop Date: 08/25/17 Status: DeletedSaline Flush 0.9% 10 ml, Route: MISC, Drug Form: INJ, Dosing Weight 77.273, kg, Q12H, Start date: 08/24/17 21:00:00 CDT, Duration: 30 day, Stop date: 09/23/17 9:00:00 CDT Notes: (Same as: BD Posiflush) Start Date: 08/24/17 Stop Date: 08/26/17 Status: DiscontinuedSaline Flush 0.9% 10 ml, Route: MISC, Drug Form: INJ, Dosing Weight 77.273, kg, PRN, PRN Line Flush, Start date: 08/24/17 14:44:00 CDT, Duration: 30 day, Stop date: 09/23/17 14:43:00 CDT Notes: (Same as: BD Posiflush) Start Date: 08/24/17 Stop Date: 08/26/17 Status: DiscontinuedTylenol 650 mg, 2 tab, Route: PO, Drug form: TAB, Q6H, Dosing Weight 77.273, kg, PRN Pain Score 1-3, Start date: 08/25/17 0:45:00 CDT, Duration: 30 day, Stop date: 09/24/17 0:44:00 CDT Notes: Do not exceed 4 gm/day. (Same as: Tylenol) Start Date: 08/25/17 Stop Date: 08/26/17 Status: DiscontinuedVisipaque 320mg/ml 100 mL, Route: IVP, Drug Form: SOLN, kg, ONCALL, STAT, Start date: 08/24/17 14: 16:00 CDT, Duration: 1 doses or times, Dose=2.2ml/kg, Max ttpx=233cs -- "To be infused by Radiology Staff ONLY" Start Date: 08/24/17 Stop Date: 08/24/17 Status: Completed Results ELECTROLYTES Most recent to oldest [Reference Range]: 1 2 Sodium Lvl [135-145 mEq/L] 140 mEq/L 139 mEq/L (08/26/17 1:55 AM) (08/24/17 2:18 PM) Potassium Lvl [3.5-5.1 mEq/L] 4.6 mEq/L 4.5 mEq/L 1 (08/26/17 1:55 AM) (08/24/17 2:18 PM) Chloride Lvl [95-109 mEq/L] 104 mEq/L 105 mEq/L (08/26/17 1:55 AM) (08/24/17 2:18 PM) CO2 [24-32 mEq/L] 25 mEq/L 23 mEq/L (08/26/17 1:55 AM) *LOW* (08/24/17 2:18 PM) AGAP [10.0-20.0 mEq/L] 15.6 mEq/L 15.5 mEq/L (08/26/17 1:55 AM) (08/24/17 2:18 PM) 1Result Comment: Specimen Slightly Hemolyzed.CHEM PANEL Most recent to oldest [Reference Range]: 1 2 Creatinine Lvl [0.50-1.40 mg/dL] 0.81 mg/dL 0.80 mg/dL (08/26/17 1:55 AM) (08/24/17 2:18 PM) eGFR 76 mL/min/1.73m2 1 77 mL/min/1.73m2 2 *NA* *NA* (08/26/17 1:55 AM) (08/24/17 2:18 PM) BUN [7-22 mg/dL] 19 mg/dL 15 mg/dL (08/26/17 1:55 AM) (08/24/17 2:18 PM) Glucose Lvl [70-99 mg/dL] 132 mg/dL 92 mg/dL *HI* (08/24/17 2:18 PM) (08/26/17 1:55 AM) Calcium Lvl [8.5-10.5 mg/dL] 9.2 mg/dL 9.0 mg/dL (08/26/17 1:55 AM) (08/24/17 2:18 PM) Phosphorus [2.5-4.5 mg/dL] 5.0 mg/dL *HI* (08/26/17 1:55 AM) Magnesium Lvl [1.8-2.4 mg/dL] 2.1 mg/dL (08/26/17 1:55 AM) 1Result Comment: The eGFR is calculated using the CKD-EPI formula. In most young , healthy individualsthe eGFR will be >90 mL/min/1.73m2. The eGFR declines with age. An eGFR of 60-89 may be normal insome populations, particularly the elderly, for whom the [...] young, healthy individualsthe eGFR will be >90 mL/min/1.73m2. The eGFR declines with age. An eGFR of 60-89 may be normal insome populations, particularly the elderly, for whom the [...] recent to oldest [Reference Range]: 1 2 Total CK [12-191 unit/L] 88 unit/L (08/24/17 2:18 PM) Troponin-I [0.00-0.40 ng/mL] <0.02 ng/mL (08/24/17 2:18 PM) LIPIDS Most recent to oldest [Reference Range]: 1 2 CHD Risk [3.90-5.80] 3.97 (08/24/17 3:04 PM) Chol [<=199 mg/dL] 119 mg/dL (08/24/17 3:04 PM) Trig [<=149 mg/dL] 112 mg/dL (08/24/17 3:04 PM) HDL [>=61 mg/dL] 30 mg/dL *LOW* (08/24/17 3:04 PM) LDL (Calculated) [<=99 mg/dL] 67 mg/dL (08/24/17 3:04 PM) VLDL 22 *NA* (08/24/17 3:04 PM) SPECIAL CHEMISTRY Most recent to oldest [Reference Range]: 1 2 Hgb A1C [<=5.6 %] 8.1 % *HI* (08/24/17 3:04 PM) PARATHYROID PROFILE Most recent to oldest [Reference Range]: 1 2 Ca Ion WB [1.05-1.25 mMol/L] 1.11 mMol/L (08/26/17 1:55 AM) Ca Norm WB [1.05-1.25 mMol/L] 1.11 mMol/L (08/26/17 1:55 AM) URINE AND STOOL Most recent to oldest [Reference Range]: 1 2 UA Turbidity [Clear] Clear (08/24/17 3:04 PM) UA Color [Yellow] Yellow *NA* (08/24/17 3:04 PM) UA pH [5.0-8.0] 6.0 (08/24/17 3:04 PM) UA Spec Grav [<=1.030] 1.010 (08/24/17 3:04 PM) UA Glucose [Negative mg/dL] Negative mg/dL (08/24/17 3:04 PM) UA Blood [Negative] Negative (08/24/17 3:04 PM) UA Ketones [Negative mg/dL] Negative mg/dL *NA* (08/24/17 3:04 PM) UA Protein [Negative mg/dL] Negative mg/dL (08/24/17 3:04 PM) UA Urobilinogen [0.1-1.0 EU/dL] 0.2 EU/dL (08/24/17 3:04 PM) UA Bili [Negative] Negative *NA* (08/24/17 3:04 PM) UA Leuk Est [Negative] Negative (08/24/17 3:04 PM) UA Nitrite [Negative] Negative (08/24/17 3:04 PM) UA WBC [None Seen] None Seen (08/24/17 3:04 PM) UA RBC [0-2] None Seen (08/24/17 3:04 PM) UA Sq Epi [Few /LPF] Rare /LPF (08/24/17 3:04 PM) HEMATOLOGY Most recent to oldest [Reference Range]: 1 2 WBC [3.7-10.4 K/CMM] 8.2 K/CMM 12.4 K/CMM (08/26/17 1:55 AM) *HI* (08/24/17 2:18 PM) RBC [4.20-5.40 M/CMM] 4.18 M/CMM 4.32 M/CMM *LOW* (08/24/17 2:18 PM) (08/26/17 1:55 AM) Hgb [12.0-16.0 g/dL] 13.1 g/dL 13.4 g/dL (08/26/17 1:55 AM) (08/24/17 2:18 PM) Hct [36.0-48.0 %] 38.7 % 40.1 % (08/26/17 1:55 AM) (08/24/17 2:18 PM) MCV [80.0-98.0 fL] 92.4 fL 92.8 fL (08/26/17 1:55 AM) (08/24/17 2:18 PM) MCH [27.0-31.0 pg] 31.4 pg 31.0 pg *HI* (08/24/17 2:18 PM) (08/26/17 1:55 AM) MCHC [32.0-36.0 g/dL] 33.9 g/dL 33.4 g/dL (08/26/17 1:55 AM) (08/24/17 2:18 PM) RDW [11.5-14.5 %] 13.1 % 13.3 % (08/26/17 1:55 AM) (08/24/17 2:18 PM) MPV [7.4-10.4 fL] 9.1 fL 8.0 fL (08/26/17 1:55 AM) (08/24/17 2:18 PM) Platelet [133-450 K/CMM] 230 K/CMM 269 K/CMM (08/26/17 1:55 AM) (08/24/17 2:18 PM) Segs [45.0-75.0 %] 51.4 % 57.1 % (08/26/17 1:55 AM) (08/24/17 2:18 PM) Lymphocytes [20.0-40.0 %] 38.6 % 35.6 % (08/26/17 1:55 AM) (08/24/17 2:18 PM) Monocytes [2.0-12.0 %] 7.2 % 5.6 % (08/26/17 1:55 AM) (08/24/17 2:18 PM) Eosinophils [0.0-4.0 %] 1.9 % 1.0 % (08/26/17 1:55 AM) (08/24/17 2:18 PM) Basophils [0.0-1.0 %] 0.9 % 0.7 % (08/26/17 1:55 AM) (08/24/17 2:18 PM) Neutrophils # [1.5-8.1 K/CMM] 4.2 K/CMM 7.1 K/CMM (08/26/17 1:55 AM) (08/24/17 2:18 PM) Lymphocytes # [1.0-5.5 K/CMM] 3.2 K/CMM 4.4 K/CMM (08/26/17 1:55 AM) (08/24/17 2:18 PM) Monocytes # [0.0-0.8 K/CMM] 0.6 K/CMM 0.7 K/CMM (08/26/17 1:55 AM) (08/24/17 2:18 PM) Eosinophils # [0.0-0.5 K/CMM] 0.2 K/CMM 0.1 K/CMM (08/26/17 1:55 AM) (08/24/17 2:18 PM) Basophils # [0.0-0.2 K/CMM] 0.1 K/CMM 0.1 K/CMM (08/26/17 1:55 AM) (08/24/17 2:18 PM) PT [12.0-14.7 seconds] 13.2 seconds (08/24/17 2:18 PM) INR [0.85-1.17] 1.00 (08/24/17 2:18 PM) PTT [22.9-35.8 seconds] 25.6 seconds (08/24/17 2:18 PM) Immunizations Given and Recorded Vaccine Date Status Refusal Reason pneumococcal 13-valent vaccine 03/03/16 Given Not Given Vaccine Date Status Refusal Reason pneumococcal 23-valent vaccine1 06/20/16 Not Given Parent Or Guardian Refuses 1Result Note: Patient states that she got the vaccination in February 2016 Procedures Procedure Date Related Diagnosis Body Site Status Craniotomy and clipping of intracranial Completed aneurysm Repair of aneurysm by wiring Completed Social History Social History Type Response Substance [...] Days No; Reg Smoking Cessation Counseling No entered on: 08/24/17 Assessment and Plan Extracted from: Title: post discharge follow-up call Author: Tory Lazo RN Date: 09/01/17 Completed post-discharge follow-up call for this patient on August 28, 2017 at 3: 49PM. Patient did not state any post-discharge concern at this time. 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 Dotson is a 67 yo F w/PMH of HTN, HLD, DM, and R SAH s/p R Pcomm clipping and asx clipping of L Pcomm who presented to [facility] with sudden onset BRICK OR BLOCK MAKER and LFD @ 11 AM 08/24 while at [place] ith her family. At OSH, NIHSS 3, non-contrast CT obtained there w/out bleed. Transferred to [facility] for HLOC, but by time of arrival around 1:40 PM, her symptoms completely resolved and she was back to her baseline. MRI revealed no acute stroke. Echo was unremarkable. EEG was abnormal , consistent w/known R encephalomalacia; no epileptiform discharges. It's not clear whether this episode was a TIA or seizu re, but we leaned towards TIA given her risk factors, and pt was switched from ASA to plavix. Metformin was also increased on dc for better DM control. Her home lovastatin was continued as her LDL was a t goal. She was educated that if she has another similar episode in the future , that she may be having seizures, and may need to start on an anti-epileptic medication. LDL: 67 A1c: 8.1 EKG: NSR Non-con CT: No early signs of cortical-based ischemia or acute hemorrhage. 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 CTA: No LVO, no perfusion defect. MRI: R frontal encephalomalacia, no new stroke TTE: unremarkable, nl EF, nl left atria size EEG: abnormal EEG with breech frequency most promindent in the right anterior hemisphere maximal at C4 and T4 consistent with known structural abnormality on that side . No epileptiform discharges were seen and no seizures were noted in the study. Discharge Physical Examination: Unremarkable Final Diagnosis: TIA vs seizure Etiology: if ischemic, SV Discharge Medications: Amaryl 4 mg oral tablet 4 mg=1 tab, PO, Daily clopidogrel 75 mg oral tablet 75 mg=1 tab, PO, Daily lisinopril 20 mg oral tablet 20 mg=1 tab, PO, Daily lovastatin 10 mg oral tablet 10 mg=1 tab, PO, Daily metFORMIN 1000 mg oral tablet 1,250 mg, PO, BID-Meals trazodone 50 mg oral tablet 50 mg=1 tab, PO, Bedtime Discharge Instructions/Recommendations: You were admitted to the [facility] at [facility] in the Medical Center. We suspect that you had a Transient Ischemic Attack, which is a warning sign that you are at risk for a stroke. Melina gement of your diabetes, high blood pressure and high cholesterol are very important to preventing future strokes, so it is very important that you take the medications prescribed to you during this hos pital stay. Equally important is stopping all tobacco and drug use. You will need to follow up with a stroke doctor or SIDEWALK REPAIRER to prevent a future stroke. It is important to note that if this happens again, you may be having seizures and may need to be started on anti-epileptic medications. Please let your future medical providers know. Medications: - Stop taking Aspirin, and start taking Plavix 75 mg daily for stroke prevention. - We have increased your dose of Metformin to 1250 mg twice a day for diabetes control. - Continue taking your home Lovastatin 10 mg daily for high cholesterol. - Take your blood pressure medications daily and monitor your blood pressure at home (goal <130/80). - Take your other medications as instructed in your discharge summary. Follow-up appointments: - You have a follow-up appointment scheduled in the [facility] on 09/12/17 at 10:30 AM to follow up on management of your stroke. - Please call your PCP to schedule an appointment within 2-4 weeks for post- hospitalization follow-up and management of your overall health. Please call our nurse navigator Tory ([phone]) with any questions after discharge. Please take your discharge paperwork with you to your follow- up appointments. Returning back to work will be addressed at your follow-up appointment. Stroke clinic address: [facility] [address] , [address] [place] [address] I spent 35 minutes today discussing the above plan of care with the team and patient and answering all questions, as well as reconciling medications, coordinating follow up and discharge to home. Suspec t TIA with plan for secondary prevention as above. Less likely seizure given patient admits to recalling entire episode and transient BRICK OR BLOCK MAKER, and EEG findings. Rebeka understands to return to call 911 if repeat episode or any new focal weakness numbness difficulty speaking or swallowing or vision changes or dizziness. Exam nonfocal today. Patient was not discharged before noon as she had been pending EEG. Gita Méndez MD Assistance Professor, Vascular Neurology [phone] Extracted from: Title: Stroke History&Physical Author: Kameron Nguyễn MD Date: 08/24/17 Stroke History & Physical Chief Complaint: Left sided weakness HPI: 67 yo F wiht PMH of HTN, right SAH s/p R Pcomm clipping, asymptomatoc clipping of L Pcomm presented to [facility] with left sided weakness, left sided facial droop. LSN 11 am. She was at [facility] with the family and all of sudden she felt weak on the left with LFD. Non- contrast CT obtained and there no acute changes. Transferred here for HLOC. When the patient arrived here, her symptoms comp letely resolved and she got back to her baseline. GCS:15. SBP 110s and finger stick 150s. Review of Systems: GEN: no fever, chills, weight loss, fatigue EYES: no blurred vision, double vision CARDIO: no chest pain, palpitations PULM: no shortness of breath, cough GI: no nausea, vomiting, diarrhea, no abd pain : no frequency, dysuria, hematuria NEURO: see HPI SKIN: no rash or lesion MSK: no pain, swelling, redness, heat in muscles, no limited ROM, weakness, or atrophy, no cramps LYMPH/IMMUNO: No lymph node enlargement/tenderness, no heat/cold intolerance Past Medical History: HTN, DM Past Surgical History: Per HPI (prev MRN for more hx w/clipping [id number]) Family Medical History: No significant fam hx Social History: NO SAD abuse. Medications: ASA, lovastatin 10 qd, lisinopril 20 qd, metformin 1k bid, trazodone 50 qhs, omeprazole 20 qd, glipizide 4 qd Allergies: Objective: Vitals and Temp: Vitals Tmp(F) Pulse BP RR SpO2 FIO2 08/24 15:07 ---- 73 120/55 25 95 --- 08/24 14:28 ---- 85 115/58 26 95 --- 08/24 14:20 ---- 82 121/56 20 100 --- 08/24 14:08 98.2 79 126/62 18 99 --- 24 Hr Tmax: 98.2F (36.78c) at 08/24 14:08 Vital Signs are the last 5 in the past 48 hours. GENERAL: Awake, alert in NAD HEENT: - Normocephalic and atraumatic, dry mm, no LN++, no Thyromegally LUNGS - Clear to auscultation bilaterally with no wheezes CV - S1S2 RRR, no m/r/g, equal pulses bilaterally. ABDOMEN - Soft, nontender, nondistended with normoactive BS NEURO: Mental Status: AA&Ox3 Language: speech is ___clear__. Naming, repetition, fluency, and comprehension intact. Cranial Nerves: PERRL__3__mm/brisk. EOMI, visual epps full, no facial asymmetry, facial sensation intact, hearing intact, tongue/uvula/soft palate midline, normal sternocleidomastoid and trapezius mus obey strength. No evidence of tongue atrophy or fibrillations Motor:5/5 throughout. Tone: is normal and bulk is normal Sensation- Intact to light touch bilaterally Coordination: FTN intact bilaterally, no ataxia in BLE. Gait- deferred Pre-Morbid MRS 0-Completely asymptomatic and back to baseline post-stroke NIH Stroke Scale (NIHSS) 1a. Level of Consciousness; 0-alert 1-drowsy 2-stupor 3-coma 1b. LOC Questions month and age; 0-both 1-one 2-neither 1c. LOC Commands open/close eyes, side splitter/release non-paretic hand; 0-both 1- one 2-neither 2. Best Gaze; 0-nl 1-partial 2-forced gaze 3. Visual Epps; 0-No visual loss. 1-Partial hemianopia 2-Complete 3-Bilateral 4. Facial Palsy; 0-none 1-minor 2-partial 3-complete 5. Motor - R arm; 0-No drift 1-Drift 2-Some antigravity 3-No antigravity 4- No movement 6. Motor - R leg; 0-No drift 1-Drift 2-Some antigravity 3-No antigravity 4- No movement 7. Motor - L arm; 0-No drift 1-Drift 2-Some antigravity 3-No antigravity 4- No movement 8. Motor - L leg; 0-No drift 1-Drift 2-Some antigravity 3-No antigravity 4- No movement 9. Limb Ataxia; 0 absent 1 - 1limb 2 - 2 limbs 10. Sensory; 0-nl 1-partial loss 2-dense loss 11. Best Language; 0-nl 1-mild/mod 2-severe 3-mute 12. Dysarthria; 0-nl 1-mild/mod 2-severe x-untestable 13. Extinction and Inattention (formerly Neglect); 0-none 1-partial 2- complete 0 Total Labs: Labs (Last four charted values) WBC H 12.4 (AUG 24) Hgb 13.4 (AUG 24) Hct 40.1 (AUG 24) Plt 269 (AUG 24) Na 139 (AUG 24) K 4.5 (AUG 24) CO2 L 23 (AUG 24) Cl 105 (AUG 24) Cr 0.80 (AUG 24) BUN 15 (AUG 24) Glucose Random 92 (AUG 24) Ca 9.0 (AUG 24) PT 13.2 (AUG 24) INR 1.00 (AUG 24) PTT 25.6 (AUG 24) EKG: Imaging: Brain Stroke wo contrast CT 08/24/17 14:12:45 IMPRESSION: No early signs of cortical-based ischemia or acute hemorrhage. 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 Signed By: Marcela Johnson MD CTA: No LVO, no perfusion defect. Assessment: 67 yo F wiht PMH of HTN, right SAH s/p R Pcomm clipping, asymptomatoc clipping of L Pcomm presented to [facility] with left sided weakness, left sided facial droop. LSN 11 am. Symptom s resolved. TIA vs. seizure vs. stroke recrudecense vs. sentinel SAH r/o. Plan: TIA Seizures Acuity: Acute Current Suspected Etiology: TBD Continue Evaluation: -Admit to stroke unit. -Continue Aspirin/ Statin -Blood pressure control, goal of SYS permissive -MRI/ECHO/A1C/Lipid panel. -Hyperglycemia management per SSI to maintain glucose 140-180mg/dL. -PT/OT/ST therapies and recommendations when able. -EEG CV Essential (primary) hypertension -Aggressive BP control, goal SBP permissive -Titrate oral agents Hyperlipidemia, unspecified - Statin for goal LDL < 70 ENDO Type 2 diabetes mellitus w/o complications. Type 2 diabetes mellitus with hyperglycemia -SSI -Start oral meds -goal HgbA1c < 7 GI/ CKD Stage 2 (GFR 60-89) -Gentle hydration -avoid nephrotoxic agents Fluid/Electrolyte Disorders -Replete -Repeat labs -Trend -Per dialysis ID Possible Aspiration PNA -CXR -NPO -Monitor Prophylaxis DVT: Hep sq. GI: Bowel: Diet: NPO until cleared by speech Code Status: Full Code THE FOLLOWING WERE PRESENT ON ADMISSION: PRICING ANALYST - Chronic Stroke, Seizures?, SAH rule out. Cardiovascular - Essential HTN Renal - CKD ACUTE STROKE BENCHMARKS: TIME PT LAST SEEN NORMAL 11 am EMS PRE-NOTIFICATION OST-1:40 pm CODE STROKE ACTIVATION OST-1:40 pm ARRIVAL TIME OST- 2 pm TIME OF STROKE TEAM EVALUATION OST- 2pm CT HEAD READ TIME OST-2:30 pm IV tPA bolus (time and dose) OST-NA IV tPA infusion (time and dose) OST If not a candidate for IV tPA, why? TIA, hx of SAH. Delays in this process: (None) Kameron Nguyễn MD Neurology PGY-3 MSO [id number] Vascular Neurology Fellow Addendum I saw and examined the patient. I reviewed the resident's note. I agree with the findings and plan of care as documented in the resident's note. Any exceptions/additions are edited/noted. 67 year old woman with history of prior SAH post R Pcomm clipping, asymptomatic clipping of L Pcomm, HTN, and SALCEDO presenting with left facial droop , left hemiparesis and headache. Outside NIHSS 3. Outsid e CTH revealed no acute process per report. She was transferred for further evaluation. On arrival NIHSS here was 0. Follow up CTH revealed no early findings suggestive of an acute infarct, SAH, ICH or IVH. CTA Intra and extracranial did not reveal any LVO. Right frontal lobe encephalomalecia, and post op changes (aneurysm coiling/clipping) noted. Admit for further observation and evaluation with MRI and Routine EEG. She is currently close to her baseline. If neurological exam worsenes may consider a LP to check for xanthochromia and RBC count. Murphy Carson MD Vascular Neurology Fellow, PGY5 STROKE STAFF I have personally evaluated the patient. i have reviewed the resident 's note detailed above. I agree with the resident's findings, assessment and plan as outlined in the note except as detailed below. In addition, i have reviewed the patient's neuroimaging findings which reveal: Brain Stroke wo contrast CT 08/24/17 14:12:45 IMPRESSION: No early signs of cortical-based ischemia or acute hemorrhage. 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 Signed By: Marcela Johnson MD Brain/Neck Stroke perfusion CTA 08/24/17 15:13:09 IMPRESSION: No stenosis by NASCET criteria. No intracranial proximal branch occlusion or flow-limiting stenosis. Right paraclinoid aneurysmal clip. Left supraclinoid coiling material. No recurrent or residual aneurysms or AV malformation. No perfusion defects suggestive of acute infarct TTE: pending LIPIDS: CHD Risk: 3.97 (08/24/17 15:04:00 CDT) Chol: 119 mg/dL (08/24/17 15:04:00 CDT) HDL: 30 mg/dL Low (08/24/17 15:04:00 CDT) LDL (Calculated): 67 mg/dL (08/24/17 15:04:00 CDT) Tri mg/dL (08/24/17 15:04:00 CDT) VLDL: 22 (08/24/17 15:04:00 CDT) Hgb A1C: 8.1 % High (08/24/17 15:04:00 CDT) exam: no focal weakaness on this exam impression/Plan: 67 y.o. female with hx of SAH, at least 2 aneurysms based on CTA (one clip and the other coiled) presents with acute onset of LEFT hemiparesis and sensory changes; possible TIA, evaluation in progress. will FU TTE and MRI results, might be able to go home today THE FOLLOWING WERE PRESENT ON ADMISSION: in addition to above: E11.9 Type 2 diabetes mellitus without complications
--- OUTSIDE RECORDS SUMMARY | 2018-04-21 12:58 | XMS REPORT ---
:1950 [facility] [address] [place] [address] Care Team Providers Name Role Phone Unavailable Unavailable Unavailable Problems This patient has no known problems. Allergies, Adverse Reactions, Alerts This patient has no known allergies or adverse reactions. Medications This patient has no known medications. Results Test Description Test Time Test Comments Text Results Atomic Results Result Comments SCR MAMM BILATERAL DAVE 2017-12-16 15:55:39 - SCR MAMM BILATERAL DAVE CAD CAD DIGITAL DIGITALBILATERAL DIGITAL SCREENING MAMMOGRAM 3D/2D WITH CAD: 12/10/2017CLINICAL: Asymptomatic. Digital breast tomosynthesis was performed in addition to routine CC and MLO views. Current mammographic images were evaluated by either a [employer] M-Vu or a [employer] ImageChecker CAD (computer aided detection system). No prior exams were available for comparison. The tissue of both breasts is heterogeneously dense. This may lower the sensitivity of mammography. There are benign vascular calcifications in both breasts. There also are benign intramammary nodes in the left breast. No suspicious mass, architectural distortion, malignant type calcification, or lymph node abnormality detected. IMPRESSION: BENIGNThere is no mammographic evidence of malignancy. Resume annual screening mammography in one year. Deshaun jacinto/jose:12/16/2017 15:55:39 Real Estate Valuer: Nneka Kahn MM, [facility] Mammographyletter sent: BIRADS 1-2 Normal Mammogram BI-RADS: 2 Benign
[2018-04-21] MEDS ORDERED: ASPIRIN 81 MG CHEWABLE TABLET ONE (13:47)
[2018-04-21 14:01] LABS: Absolute Lymphocytes (CBC) 2.3 K/uL (0.7-4.9); Absolute Monocytes 0.3 K/uL (0.1-1.3); Absolute Neutrophil 6.2 K/uL (1.8-8.0); Basophils % 1.1 % (0-1.3); Eosinophils % 0.2 % (0-4.4); Hematocrit 39.9 % (36.0-45.0); Lymphocytes % 25.7 % (15.3-44.8); MPV 7.7 fL (7.6-11.3); Monocytes % 3.7 % (3.3-12.3); RBC Red Blood Cell Count 4.29 M/uL (3.86-4.86)
[2018-04-21 14:03] LABS: Protime INR 1.17
[2018-04-21 14:15] LABS: ALT/SGPT 32 U/L (12-78); AST/SGOT 23 U/L (15-37); Albumin 3.9 g/dL (3.4-5.0); Alkaline Phosphatase 71 U/L (45-117); BUN Blood Urea Nitrogen 14 mg/dL (7-18); Bicarbonate 27 mmol/L (21-32); Bilirubin Direct < 0.1 mg/dL (0-0.2); Bilirubin Total 0.3 mg/dL (0.2-1.0); Glucose Level 138 mg/dL (74-106); Magnesium 2.2 mg/dL (1.8-2.4); NT PRO-BNP 122 pg/mL (<125); Potassium 4.2 mmol/L (3.5-5.1); Protein, Total 7.9 g/dL (6.4-8.2); Sodium Level 141 mmol/L (136-145); Troponin (Emerg Dept Use Only) < 0.02 ng/mL (0.0-0.045)
--- NOTE | 2018-04-21 14:27 | RAD REPORT ---
EXAM DESCRIPTION: RAD - Chest Single View - 04/21/2018 2:15 pm CLINICAL HISTORY: Chest pain COMPARISON: August 2017 TECHNIQUE: AP portable chest image was obtained 1359 hours . FINDINGS: Lungs are clear. Heart and vasculature are normal. No measurable pleural effusion and no p neumothorax. No acute bony abnormality seen. No acute aortic findings suspected. IMPRESSION: No acute cardiopulmonary process. No significant interval change.
[2018-04-21] MEDS ORDERED: MAGNE/ALUM HYDROXD 30 ML UCUP ONE (15:14)
[2018-04-21] MEDS ORDERED: LIDOCAINE VISCOUS 2% SOLN 15 ML UDC ONE (15:15)
[2018-04-21] MEDS ORDERED: FAMOTIDINE 20 MG/2 ML VIAL IV ONE (15:15)
--- NOTE | 2018-04-21 15:18 | ER ---
Nurse's Notes [facility] Name: Lorri Dotson Age: 68 yrs Sex: Female : 1950 Arrival Date: 04/21/2018 Time: 12:41 Bed 30 Private MD: Diagnosis: Chest pain, unspecified Presentation: 04/21 12:47 Presenting complaint: Went to [facility] for SOB and N/V since this morning, sent hb from clinic due to abnormal EKG. Pt reports left sided chest pain 2/10 x 1 week. Transition of care: patient was not received from another setting of care. Onset of symptoms was April 21, 2018. Risk Assessment: Do you want to hurt yourself or someone else? Patient reports no desire to harm self or others. Care prior to arrival: None. 12:47 Method Of Arrival: Ambulatory hb 12:47 Acuity: SARAI 3 hb 13:00 Initial Sepsis Screen: Does the patient meet any 2 criteria? No. Patient's initial em sepsis screen is negative. Does the patient have a suspected source of infection? No. Patient's initial sepsis screen is negative. Triage Assessment: 20:27 General: Appears in no apparent distress. Behavior is calm, cooperative. Respiratory: mg2 Reports shortness of breath the patient has mild shortness of breath. Historical: - Allergies: 16:41 No Known Allergies; em - Home Meds: 12:50 aspirin 81 mg Oral chew 1 tab once daily [Active]; glimepiride 4 mg Oral tab 1 tab once hb daily [Active]; lisinopril 20 mg Oral tab 1 tab once daily [Active]; lovastatin 10 mg Oral tab 1 tab once daily [Active]; metformin 1,000 mg Oral tab 2 times per day [Active]; 16:41 Pepcid 20 mg Oral tab 1 tab once daily [Active]; atorvastatin 20 mg oral tab 1 tab once em daily [Active]; Plavix 75 mg Oral tab 1 tab once daily [Active]; - PMHx: 12:50 Diabetes - NIDDM; Hypertension; TIA; hb - PSHx: 12:50 brain surgery with clips; hb - Immunization history:: Adult Immunizations up to date. - Social history:: Smoking status: Patient/guardian denies using tobacco. - Ebola Screening: : No symptoms or risks identified at this time. Screenin:00 Abuse screen: Denies threats or abuse. Nutritional screening: No deficits noted. em Tuberculosis screening: No symptoms or risk factors identified. Fall Risk None identified. Assessment: 13:00 Pain: Complains of pain in anterior aspect of left upper chest Pain currently is 1 out em of 10 on a pain scale. Quality of pain is described as pressure, Pain began 1 day ago. Neuro: Level of Consciousness is awake, alert, obeys commands, Oriented to person, place, time, situation, Denies dizziness. Cardiovascular: Reports chest pain, nausea, shortness of breath, vomiting, Capillary refill < 3 seconds Patient's skin is warm and dry. Rhythm is sinus rhythm. Respiratory: Airway is patent Respiratory effort is even, unlabored, Respiratory pattern is regular, symmetrical, Breath sounds are clear bilaterally. Derm: Skin is intact, is healthy with good turgor, Skin is pink, warm \T\ dry. Musculoskeletal: Range of motion: intact in all extremities. 13:00 Reassessment: I agree with assessment completed by Don Mtz LVN . General: Appears aa5 comfortable, Behavior is calm, cooperative. 14:05 Reassessment: Patient appears in no apparent distress at this time. Patient and/or em family updated on plan of care and expected duration. Pain level reassessed. Patient is alert, oriented x 3, equal unlabored respirations, skin warm/dry/pink. reports pain 02/19, provider notified, new medication orders received. 15:42 Reassessment: Patient appears in no apparent distress at this time. Patient and/or em family updated on plan of care and expected duration. Pain level reassessed. Patient is alert, oriented x 3, equal unlabored respirations, skin warm/dry/pink. reports medication has helped Patient denies pain at this time. Patient states feeling better. Patient states symptoms have improved. 16:06 Reassessment: Patient appears in no apparent distress at this time. Patient and/or em family updated on plan of care and expected duration. Pain level reassessed. Patient is alert, oriented x 3, equal unlabored respirations, skin warm/dry/pink. pending room assignment, ordered heart health diet. 17:09 Reassessment: Patient appears in no apparent distress at this time. Patient and/or em family updated on plan of care and expected duration. Pain level reassessed. Patient is alert, oriented x 3, equal unlabored respirations, skin warm/dry/pink. Patient denies pain at this time. Patient states feeling better. Patient states symptoms have improved. 17:33 Reassessment: dinner tray given, room assignment given, will attempt to call report. em 17:55 Reassessment: nurse unavailable to give report at this time. em 20:28 Reassessment: patient doesn't have an admit order yet. charge nurse informed. mg2 Vital Signs: 12:49 BP 120 / 63; Pulse 71; Resp 16; Temp 97.5; Pulse Ox 96% on R/A; Pain 2/10; hb 13:30 BP 102 / 66; Pulse 72; Resp 18; Pulse Ox 99% on R/A; Pain 1/10; em 14:27 BP 115 / 65 RA; em 14:27 BP 112 / 65 LA; em 16:00 BP 103 / 50; Pulse 67; Resp 18; Pulse Ox 99% on R/A; Pain 0/10; em 17:10 BP 117 / 60; Pulse 70; Resp 16; Pulse Ox 96% on R/A; Pain 0/10; em 20:27 Pulse 59; Resp 18; Pulse Ox 100% on R/A; mg2 20:48 BP 123 / 66; Pulse 59; Resp 18; Temp 97.9(O); Pulse Ox 100% on R/A; Pain 0/10; mg2 ED Course: 12:41 Patient arrived in ED. as 12:49 Triage completed. hb 12:50 Arm band placed on left wrist. hb 12:56 Don Mtz LVN is Primary Nurse. em 12:58 Leonel Ramirez PA is PHCP. cp 12:58 Attila Whittington MD is Attending Physician. cp 13:00 Patient has correct armband on for positive identification. Placed in gown. Bed in low em position. Call light in reach. Side rails up X2. Adult w/ patient. phototypesetting equipment monitor on. Pulse ox on. NIBP on. 13:17 EKG done, by industrial technology teacher. reviewed by Leonel TINOCO. vh 13:30 Initial lab(s) drawn, by me, sent to lab. Inserted saline lock: 20 gauge in right em antecubital area, using aseptic technique. Blood collected. 14:14 X-ray completed. Portable x-ray completed in exam room. Patient tolerated procedure jb2 well. 14:16 XRAY Chest (1 view) In Process Unspecified. EDMS 15:17 Batsheva Keller MD is Hospitalizing Provider. cp 20:28 No provider procedures requiring assistance completed. Patient admitted, IV remains in mg2 place. Administered Medications: 13:37 Drug: Aspirin Chewable Tablet 324 mg Route: PO; em 15:41 Follow up: Response: No adverse reaction em 15:14 Drug: GI Cocktail without - (Maalox Suspension 30 ml, Lidocaine Liquid 2 % 15 aa5 ml) Route: PO; 15:41 Follow up: Response: No adverse reaction; Pain is decreased em 15:14 Drug: Pepcid 20 mg Route: IVP; Site: right antecubital; aa5 15:41 Follow up: Response: No adverse reaction; Pain is decreased em Outcome: 15:18 Decision to Hospitalize by Provider. cp 20:37 Admitted to Med/surg accompanied by tech, via wheelchair, room 220, with chart, Report mg2 called to ELIAS Austin 20:37 Condition: stable 20:37 Instructed on the need for admit, Demonstrated understanding of instructions. 20:49 Patient left the ED. mg2 Signatures: Dispatcher [employer] EDMS Gopal Pimentel jb2 Don Mtz, BEDSPREAD CUTTER HAND BEDSPREAD CUTTER HAND em Stacey Adair Audri, RN RN aa5 Michelle Arreguin Leonel Ramirez PA PA cp Samantha Noble RN RN Ever Reyna RN RN mg2 Corrections: (The following items were deleted from the chart) 16:41 12:50 Allergies: No Known Allergies; hb em
--- NOTE | 2018-04-21 15:18 | EDPHYS ---
Physician Documentation [facility] Name: Lorri Dotson Age: 68 yrs Sex: Female : 1950 Arrival Date: 04/21/2018 Time: 12:41 Bed 30 Private MD: ED Physician Attila Whittington HPI: 04/21 13:45 This 68 yrs old Female presents to ER via Ambulatory with complaints of cp Shortness Of Breath, Abnormal EKG. 13:45 The patient has shortness of breath with light activity. cp 13:45 Associated signs and symptoms: Pertinent positives: chest pain, Pertinent negatives: cp productive cough, diaphoresis, fever. Patient reports she was referred to ED from [facility] for abnormal EKG and chest pain. Historical: - Allergies: 16:41 No Known Allergies; em - Home Meds: 12:50 aspirin 81 mg Oral chew 1 tab once daily [Active]; glimepiride 4 mg Oral tab 1 tab once hb daily [Active]; lisinopril 20 mg Oral tab 1 tab once daily [Active]; lovastatin 10 mg Oral tab 1 tab once daily [Active]; metformin 1,000 mg Oral tab 2 times per day [Active]; 16:41 Pepcid 20 mg Oral tab 1 tab once daily [Active]; atorvastatin 20 mg oral tab 1 tab once em daily [Active]; Plavix 75 mg Oral tab 1 tab once daily [Active]; - PMHx: 12:50 Diabetes - NIDDM; Hypertension; TIA; hb - PSHx: 12:50 brain surgery with clips; hb - Immunization history:: Adult Immunizations up to date. - Social history:: Smoking status: Patient/guardian denies using tobacco. - Ebola Screening: : No symptoms or risks identified at this time. ROS: 13:55 Constitutional: Negative for body aches, chills, fever, poor PO intake. cp 13:55 Eyes: Negative for injury, pain, redness, and discharge. cp 13:55 ENT: Negative for drainage from ear(s), ear pain, sore throat, difficulty swallowing, difficulty handling secretions. 13:55 Cardiovascular: Positive for chest pain, Negative for edema, palpitations. 13:55 Respiratory: Positive for shortness of breath, Negative for cough, wheezing. 13:55 Abdomen/GI: Positive for nausea, black/tarry stool, rectal bleeding, Negative for abdominal pain, vomiting, diarrhea, constipation. 13:55 Back: Negative for pain at rest, pain with movement, radiated pain. 13:55 Skin: Negative for cellulitis, rash. 13:55 Neuro: Negative for altered mental status, headache, syncope, weakness. 13:55 All other systems are negative. Exam: 14:00 Constitutional: The patient appears in no acute distress, alert, awake, cp non-diaphoretic, non-toxic, well developed, well nourished. 14:00 Head/Face: Normocephalic, atraumatic. Eyes: Pupils equal round and reactive to light, cp extra-ocular motions intact. Lids and lashes normal. Conjunctiva and sclera are non-icteric and not injected. Cornea within normal limits. Periorbital areas with no swelling, redness, or edema. ENT: Nares patent. No nasal discharge, no septal abnormalities noted. Tympanic membranes are normal and external auditory canals are clear. Oropharynx with no redness, swelling, or masses, exudates, or evidence of obstruction, uvula midline. Mucous membranes moist. Neck: Trachea midline, no thyromegaly or masses palpated, and no cervical lymphadenopathy. Supple, full range of motion without nuchal rigidity, or vertebral point tenderness. No Meningismus. Chest/axilla: Normal chest wall appearance and motion. Nontender with no deformity. No lesions are appreciated. 14:00 Cardiovascular: Rate: normal, Rhythm: regular, Heart sounds: murmur, not appreciated, Edema: is not appreciated, JVD: is not appreciated. 14:00 Respiratory: the patient does not display signs of respiratory distress, Respirations: normal, no use of accessory muscles, no retractions, no splinting, no tachypnea, labored breathing, is not present, Breath sounds: are clear throughout, no decreased breath sounds, no stridor, no wheezing. 14:00 Abdomen/GI: Inspection: abdomen appears normal, Bowel sounds: active, all quadrants, Palpation: abdomen is soft and non-tender, in all quadrants. 14:00 Back: pain, is absent, ROM is normal. 14:00 Skin: cellulitis, is not appreciated, no rash present. 14:00 Neuro: Orientation: to person, place \T\ time. Mentation: is normal, Cerebellar function: is grossly normal, Motor: moves all fours, strength is normal, Sensation: is normal. Vital Signs: 12:49 BP 120 / 63; Pulse 71; Resp 16; Temp 97.5; Pulse Ox 96% on R/A; Pain 2/10; hb 13:30 BP 102 / 66; Pulse 72; Resp 18; Pulse Ox 99% on R/A; Pain 1/10; em 14:27 BP 115 / 65 RA; em 14:27 BP 112 / 65 LA; em 16:00 BP 103 / 50; Pulse 67; Resp 18; Pulse Ox 99% on R/A; Pain 0/10; em 17:10 BP 117 / 60; Pulse 70; Resp 16; Pulse Ox 96% on R/A; Pain 0/10; em 20:27 Pulse 59; Resp 18; Pulse Ox 100% on R/A; mg2 20:48 BP 123 / 66; Pulse 59; Resp 18; Temp 97.9(O); Pulse Ox 100% on R/A; Pain 0/10; mg2 MDM: 12:58 Patient medically screened. 14:35 Data reviewed: vital signs, nurses notes, lab test result(s), EKG, radiologic studies, cp plain films. 14:35 Test interpretation: by ED physician or midlevel provider: ECG, plain radiologic cp studies. 15:15 Physician consultation: Batsheva Keller MD was called at 15:05, was contacted at 15:05, regarding admission, to the telemetry unit. 04/21 13:31 Order name: Basic Metabolic Panel; Complete Time: 14:18 04/21 14:30 Interpretation: Normal except: GLUC 138. 04/21 13:31 Order name: CBC with Diff; Complete Time: 14:18 04/21 13:31 Order name: LFT's; Complete Time: 14:18 04/21 13:31 Order name: Magnesium; Complete Time: 14:18 04/21 13:31 Order name: NT PRO-BNP; Complete Time: 14:18 04/21 13:31 Order name: PT-INR; Complete Time: 14:18 04/21 13:31 Order name: Troponin (emerg Dept Use Only); Complete Time: 14:18 04/21 14:19 Interpretation: Reviewed. 04/21 13:31 Order name: XRAY Chest (1 view); Complete Time: 14:30 cp 04/21 13:31 Order name: EKG; Complete Time: 13:39 cp 04/21 13:31 Order name: Cardiac monitoring; Complete Time: 13:34 cp 04/21 16:54 Order name: Diet Heart Healthy; Complete Time: 16:54 em 04/21 13:31 Order name: EKG - Nurse/Tech; Complete Time: 13:34 cp 04/21 13:31 Order name: IV Saline Lock; Complete Time: 13:34 cp 04/21 13:31 Order name: Labs collected and sent; Complete Time: 13:34 cp 04/21 13:31 Order name: O2 Per Protocol; Complete Time: 13:34 cp 04/21 13:31 Order name: O2 Sat Monitoring; Complete Time: 13:35 cp 04/21 13:37 Order name: Blood Pressure Recheck: bilateral upper extremities; Complete Time: 15:08 cp Administered Medications: 13:37 Drug: Aspirin Chewable Tablet 324 mg Route: PO; em 15:41 Follow up: Response: No adverse reaction em 15:14 Drug: GI Cocktail without - (Maalox Suspension 30 ml, Lidocaine Liquid 2 % 15 aa5 ml) Route: PO; 15:41 Follow up: Response: No adverse reaction; Pain is decreased em 15:14 Drug: Pepcid 20 mg Route: IVP; Site: right antecubital; aa5 15:41 Follow up: Response: No adverse reaction; Pain is decreased em Disposition: 04/21/18 15:18 Hospitalization ordered by Batsheva Keller for Observation. Preliminary diagnosis is Chest pain, unspecified. - Bed requested for Telemetry/MedSurg (observation). - Status is Observation. mg2 - Condition is Stable. - Problem is new. - Symptoms have improved. UTI on Admission? No Addendum: 04/25/2018 07:35 Co-signature as Attending Physician, Attila Whittington MD. r n Signatures: Dispatcher [employer] EDIA Perri Flores Edgar, BILL BOARD POSTER BILL BOARD POSTER em Attila Whittington MD MD rn Calderon, Audri, RN RN aa5 Leonel Ramirez PA PA Samantha Bah, RN Ever Moore RN RN mg2 Corrections: (The following items were deleted from the chart) 04/21 16:41 12:50 Allergies: No Known Allergies; hb em 17:24 15:18 Hospitalization Ordered by Batsheva Keller MD for Observation. Preliminary diagnosis bd is Chest pain, unspecified. Bed requested for Telemetry/MedSurg (observation). Status is Observation. Condition is Stable. Problem is new. Symptoms have improved. UTI on Admission? No. cp 20:49 17:24 04/21/2018 15:18 Hospitalization Ordered by Batsheva Keller MD for Observation. mg2 Preliminary diagnosis is Chest pain, unspecified. Bed requested for Telemetry/MedSurg (observation). Status is Observation. Condition is Stable. Problem is new. Symptoms have improved. UTI on Admission? No. bd
[2018-04-21 21:51] VITALS: BMI 29.6
[2018-04-22 02:01] VITALS: O2SAT 98
[2018-04-22 03:43] LABS: Urine Appearance CLEAR; Urine Bilirubin NEGATIVE (NEG); Urine Blood NEGATIVE (NEG); Urine Color YELLOW; Urine Glucose NEGATIVE (NEG); Urine Protein NEGATIVE (NEG)
[2018-04-22 03:49] LABS: Urine Microscopic Reflex ORDER UMIC
[2018-04-22 04:17] LABS: Urine Bacteria <20 /HPF (<20); Urine Culture Reflex Order REFLEXED; Urine RBC <5 /HPF (NONE SEEN)
[2018-04-22] MEDS ORDERED: HYDROCODONE/APAP 10/325 TAB PO ONE (04:18)
[2018-04-22 05:42] LABS: Absolute Lymphocytes (CBC) 4.1 K/uL (0.7-4.9); Absolute Monocytes 0.7 K/uL (0.1-1.3); Basophils % 0.9 % (0-1.3); Eosinophils % 1.5 % (0-4.4); MPV 7.6 fL (7.6-11.3); Monocytes % 6.7 % (3.3-12.3); RBC Red Blood Cell Count 4.29 M/uL (3.86-4.86)
[2018-04-22 06:04] LABS: ALT/SGPT 33 U/L (12-78); AST/SGOT 25 U/L (15-37); Albumin 3.8 g/dL (3.4-5.0); Alkaline Phosphatase 70 U/L (45-117); BUN Blood Urea Nitrogen 18 mg/dL (7-18); Bicarbonate 27 mmol/L (21-32); Bilirubin Total 0.5 mg/dL (0.2-1.0); Glucose Level 147 mg/dL (74-106); Potassium 4.2 mmol/L (3.5-5.1); Protein, Total 7.9 g/dL (6.4-8.2); Sodium Level 140 mmol/L (136-145); Troponin I < 0.02 ng/mL (0.0-0.045)
[2018-04-22] MEDS ORDERED: ONDANSETRON 4 MG/2 ML VIAL IV PRN (07:48)
--- NOTE | 2018-04-22 08:58 | P.HP ---
Certification for Inpatient Patient admitted to: Observation With expected LOS: <2 Midnights Patient will require the following post-hospital care: None Practitioner: I am a practitioner with admitting privileges, knowledge of patient current condition, hospital course, and medical plan of care. Services: Services provided to patient in accordance with Admission requirements found in Title 42 Section 412.3 of the Code of Federal Regulations Patient History Date of Service: 04/21/18 Reason for admission: Chest pain rule out acute coronary syndrome;intractable nausea and vomiting History of Present Illness: Patient is a 68-year-old female came into the hospital with nausea and vomiting. Patient was at [facility] with complaints of nausea vomiting. Patient's chest started hurting mainly at the left side with no radiation. Patient came to the ER and was admitted to for further workup. So far troponins have been negative. Patient remains nauseated. Most of her symptoms may be related to GI complaint. Physical exam is unremarkable. No abdominal pain noted. Will admit her to the hospital and rule her out for acute coronary syndrome. Further workup as an outpatient with GI. Start diet and advance as tolerated if cardiac workup is negative. Allergies No Known Allergies Allergy (Verified 04/21/18 21:42) - Past Medical/Surgical History Has patient received pneumonia vaccine in the past: No Diabetic: Yes -: Diabetes-NIDDM -: HYpertension -: TIA -: brain surgery with clips - Family History Father Family History: Reviewed- Non-Contributory - Social History Smoking Status: Never smoker Alcohol use: No CD- Drugs: No Caffeine use: No Place of Residence: Home Review of Systems 10-point ROS is otherwise unremarkable Physical Examination - Vital Signs Temperature: 97.5 F Blood Pressure: 101/54 Pulse: 62 Respirations: 18 Pulse Ox (%): 98 - Physical Exam General: Alert, In no apparent distress, Oriented x3 HEENT: Atraumatic, PERRLA, Mucous membr. moist/pink, EOMI, Sclerae nonicteric Neck: Supple, 2+ carotid pulse no bruit, No LAD, Without JVD or thyroid abnormality Respiratory: Clear to auscultation bilaterally, Normal air movement Cardiovascular: Regular rate/rhythm, Normal S1 S2, No murmurs Gastrointestinal: Normal bowel sounds, Soft and benign, Non-distended, No tenderness Musculoskeletal: No clubbing, No swelling, No tenderness Integumentary: No rashes Neurological: Normal gait, Normal speech, Normal strength at 5/5 x4 extr, Normal tone, Sensation intact, Cranial nerves 3-12 intact, Normal affect Lymphatics: No axilla or inguinal lymphadenopathy - Studies Laboratory Data (last 24 hrs) 04/21/18 13:45: PT 13.7 H, INR 1.17 04/21/18 13:45: WBC 8.9, Hgb 13.2, Hct 39.9, Plt Count 261 04/21/18 13:45: Sodium 141, Potassium 4.2, BUN 14, Creatinine 0.63, Glucose 138 H, Magnesium 2.2, Total Bilirubin 0.3, AST 23, ALT 32, Alkaline Phosphatase 71 Assessment & Plan - Problems (Diagnosis) (1) Chest pain, rule out acute myocardial infarction Current Visit: Yes Status: Acute (2) Nausea and vomiting Current Visit: Yes Status: Acute - Plan 1. Serial troponins and EKG 2. Cardiology consultation 3. Echocardiogram 4. Anti-platelet therapy, anti coagulation, beta-anastasia, statin, and O2 as needed 5. IV morphine for pain 6. Nitro p.r.n. 7. GI and DVT prophylaxis Discharge Plan: Home Plan to discharge in: 24 Hours - Advance Directives Does patient have a Living Will: Yes Does patient have a Durable POA for Healthcare: Yes - Code Status/Comfort Care Code Status Assessed: Yes Code Status: Full Code Critical Care: No Time Spent Managing PTS Care (In Minutes): 50
[2018-04-22] MEDS ORDERED: ASPIRIN EC 81 MG TAB PO SCH (09:00)
[2018-04-22] MEDS ORDERED: ENOXAPARIN 40 MG/0.4 ML SQ SCH (09:00)
[2018-04-22] MEDS ORDERED: INFLUENZA VACCINE (for 3y+) 0.5 ML DOSE IMVAC ONE (10:00)
[2018-04-22] MEDS ORDERED: PNEUMOCOCCAL VACCINE 0.5 ML IMVAC ONE (10:00)
--- NOTE | 2018-04-22 12:01 | CON ---
History Of Present Illness: Mrs. Dotson is here because she had some chest pain and dizziness. The pain is in the center part of her chest, not radiating, it lasted a few seconds, there was one spell . She has had a stroke in the past. She has underlying diabetes, and tries to take good care of her self. She uses no tobacco. No illegal drugs. Very rare alcohol. Physical Examination: General: She is 5 feet 4 inches, 172 pounds. HEENT: Normal. Lungs: Clear. Cardiac: Normal. Abdomen: Soft. Extremities: Normal. Laboratory: Troponins are normal. Blood sugars 138, 147. Creatinine 0.86. Impression: The patient should have a stress test and echo, and we will base any further treatment o n the findings there. TIERRA Voice ID: [id number] Report ID: [id number]
[2018-04-22] MEDS ORDERED: REGADENOSON 0.4 MG/5 ML SYR IV ONE (12:08)
--- NOTE | 2018-04-22 13:45 | RAD REPORT ---
EXAM DESCRIPTION: NM - Rest Stress Cardiac Imaging - 04/22/2018 1:38 pm CLINICAL HISTORY: CP Chest pain. COMPARISON: No comparisons TECHNIQUE: The patient was administered approximately 10mCi of Tc 99m Sestamibi prior to resting SPE CT imaging of the heart. The patient was then administered approximately 30 mCi of Tc 99m Sestamibi f ollowing exercise or pharmacologic stress. Multiplanar SPECT images were reviewed. FINDINGS: No stress induced ischemic defect is seen to suggest stress induced ischemia. No fixed def ect is seen to suggest hibernating myocardium or scarred myocardium. The end diastolic volume is 69 ml, the end systolic volume is 18 ml, and the ejection fraction is 73 %. IMPRESSION: No stress induced ischemia.
--- NOTE | 2018-04-22 14:10 | TREADPHA ---
DX: CHEST PAIN Date of Study: 04/22/2018 Ht: 5 4 Wt: 172 lb 12.8 oz Consulting Physician: MATTHIEU MEDICATIONS: ASPIRIN, LIPITOR, LOVENOX, ZOFRAN HISTORY: 68 YEAR OLD FEMALE WITH COMPLAINTS OF CHEST PAIN. PHYSICIAL EXAMINATION: RESTING B.P.: 119/63 RESTING H.R.: 66 RESTING EKG: NORMAL PROTOCOL: LEXISCAN EXERCISE TIME: 3:30 B.P. AT PEAK STRESS: 121/51 IMPRESSION: LEXISCAN INJECTED FOLLOWED BY CARDIOLITE PER PROTOCOL. SEE NUCLEAR MEDICINE REPORT. NO SUPRAVENTRICULAR TACHYCARDIA. NO VENTRICULAR TACHYCARDIA. NO PREMATURE VENTRICULAR COMPLEXES. TWO PREMATURE ATRIAL COMPLEXES PRIOR TO PROCEDURE, NONE DURING PROCEDURE AND ONE DURING RECOVERY. PATIENT REPORTED NO CHEST PAIN OR TIGHTNESS THROUGHOUT THE PROCEDURE OR IN RECOVERY. NON DIAGNOSTIC EKG WITH LEXISCAN STRESS
[2018-04-22 18:28] VITALS: BP 106/55; TEMP 97.6
[2018-04-22] MEDS ORDERED: ATORVASTATIN 20 MG TAB PO SCH (21:00)
--- NOTE | 2018-04-23 08:36 | ECHO ---
HEIGHT: 5 ft 4 in WEIGHT: 172 lb 12.8 oz DATE OF STUDY: 04/22/[address]: Irma Palmer MD 2-DIMENSIONAL: YES M.MODE: YES DOPPLER: YES COLOR FLOW: YES TDS: NO PORTABLE: NO DEFINITY: NO BUBBLE STUDY: NO DIAGNOSIS: CHEST PAIN CARDIAC HISTORY: CATHERIZATION: NO SURGERY: NO PROSTHETIC VALVE: NO PACEMAKER: NO MEASUREMENTS (cm) DIASTOLIC (NORMALS) SYSTOLIC (NORMALS) IVSd 1.0 (0.6-1.2) LA Diam 3.5 (1.9-4.0) LVEF 83% LVIDd 4.5 (3.5-5.7) LVIDs 2.2 (2.0-3.5) %FS 52% LVPWd 1.1 (0.6-1.2) Ao Diam 2.7 (2.0-3.7) 2 DIMENSIONAL ASSESSMENT: RIGHT ATRIUM: NORMAL LEFT ATRIUM: NORMAL RIGHT VENTRICLE: NORMAL LEFT VENTRICLE: NORMAL TRICUSPID VALVE: NORMAL MITRAL VALVE: MITRAL ANNULAR CALCIFICATION PULMONIC VALVE: NORMAL AORTIC VALVE: NORMAL PERICARDIAL EFFUSION: NONE AORTIC ROOT: NORMAL LEFT VENTRICULAR WALL MOTION: NORMAL. DOPPLER/COLOR FLOW: TRACE OF MITRAL REGURGITATION. COMMENTS: NORMAL LEFT VENTRICULAR EJECTION FRACTION. MINIMAL MITRAL ANNULAR CALCIFICATION. TRACE OF MITRAL REGURGITATION. TECHNOLOGIST: KERI BARRIOS
--- NOTE | 2018-04-23 10:32 | EKG ---
Test Date: 2018-04-21 Test Time: 13:00:23 [place] Machine Operator: JELLY MEASUREMENT RESULTS: Intervals: Rate: 75 MA: 138 QRSD: 80 QT: 428 QTc: 477 [place]: P: 13 MA: 138 QRS: -3 T: 18 INTERPRETIVE STATEMENTS: Normal sinus rhythm Normal ECG Compared to ECG 08/24/2017 11:53:22 No significant changes Electronically Signed On 04-22-18 08:12:16 CDT by Tj Jones
== END 2018-04-22 18:55 | disposition home or self-care (01) ==
LOC: ER 12:38 → ERHOLD 15:25 → 2ND 20:38
PROVIDERS: ADMIT Family Medicine; ATTEND Hospitalist
DX: R07.9 Chest pain, unspecified (principal); R11.2 Nausea with vomiting, unspecified; E11.9 Type 2 diabetes mellitus without complications; I10 Essential (primary) hypertension; Z86.73 Personal history of transient ischemic attack (TIA), and cerebral infarction without residual deficits
CPT/HCPCS: 93005; 93017; 93306; 87088; 85025 ×2; 87086; 80048; 36415; 83735; 85610; 80076; 84484 ×3; 80053; 83880; 71045; 78452; 96374; 99285; J1650; J2785; J2405; A9500; G0378 ×2; 81003; 81015

== ENCOUNTER 2018-06-29 11:58 | Emergency (ER) | payer OTHER ==
--- OUTSIDE RECORDS SUMMARY | 2018-06-29 12:13 | XMS REPORT | Continuity of Care Document ---
:1950 Author Organization Interface Problems Problem Status Onset Classification Date Comments Source Date Reported Other specified 03/15/2018 [facility] disorders of brain [address] [place] [address] TIA Active [address] ESTEFANIA BILLING Active [address] POSSIBLE STROKE Active [address] LEFT POSTERIOR Active [facility] COMMUNICATING [address] [place] [address] ARTERY ANEU SAH (<span Resolved Problem 03/15/2018 [place] ID="[id number]"> [address] [place] [address] Confirmed</span>) LFLT TRANSFER Active [facility] [id number] [place] [address] SAH Active 017 Rehabilitation SAH Active 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 (<span Active Problem 03/15/2018 [place] ID="[id number]"> Medical Center Confirmed</span>) Hyperosmolality Active Problem 03/15/2018 [facility] and hypernatremia [facility] HTN (<span Active Problem 03/15/2018 [place] ID="[id number]"> Medical Center Confirmed</span>) Obstructive Active Problem 03/15/2018 [facility] hydrocephalus [facility] Acute and chronic Active Problem 03/15/2018 [facility] respiratory [facility] failure with hypoxia Intracerebral Active Problem 03/15/2018 [facility] hemorrhage, [facility] intraventricular Weakness 03/15/2018 [facility] Hyperlipidemia, 03/15/2018 [facility] unspecified [facility] Type 2 diabetes 03/15/2018 [facility] mellitus with [facility] Center hyperglycemia Hypertensive 03/15/2018 [facility] chronic kidney [facility] disease with stage 1 through stage 4 chronic kidney disease, or unspecified chronic kidney disease Type 2 diabetes 03/15/2018 [facility] mellitus with [facility] Center diabetic chronic kidney disease Chronic kidney 03/15/2018 [facility] disease, stage 2 Medical Center 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 [facility] use of 03/15/2018 [facility] oral hypoglycemic [facility] Center drugs NONTRAUMATIC Active [facility] SUBARACHNOID [facility] Center HEMORRHAGE, UN NONTRAUMATIC Active [facility] HEMORRHAGE, U CEREBRAL ANEURYSM, Active [facility] NONRUPTURED [facility] TRANSIENT CEREBRAL Active [facility] ISCHEMIC ATTACK, [facility] UNSP Medications Medication Details Route Status Patient Ordering Order Source Instructions Provider Date Metformin 1,250 mg, PO, Active [facility] hydrochloride BID-Meals, # 180 2018 Medical 1000 MG Oral tab, 1 Center Tablet Refill(s), Pharmacy: [id number] Plavix 75 mg, Route: No Longer [facility] PO, Drug form: Active 2018 Medical TAB, Daily, Center Dosing Weight 77.273, kg, Start date: 08/26/17 9:00:00 CDT, Duration: 30 day, Stop date: 09/24/17 9:00:00 CDT Lovastatin 10 mg, Route: No Longer [facility] PO, Drug form: Active 2018 Medical TAB, Daily, Center Dosing Weight 77.273, kg, Start date: 08/26/17 9:00:00 CDT, Duration: 30 day, Stop date: 09/24/17 9:00:00 CDT Lipitor 10 mg, 1 tab, No Longer [facility] Route: PO, Drug Active 2018 Medical form: TAB, Center Bedtime, Start date: 08/25/17 21:00:00 CDT, Duration: 30 day, Stop date: 09/23/17 21:00:00 CDTNotes: (Same As: Lipitor) Metformin 1,500 mg, PO, No Longer [facility] hydrochloride BID-Meals, # 270 Active 2018 Medical 1000 MG Oral tab, 1 Center Tablet Refill(s), Pharmacy: [facility] clopidogrel 75 75 mg=1 tab, PO, Active [facility] mg oral tablet Daily, # 90 tab, 2018 Medical 1 Refill(s), Center Pharmacy: [facility] lisinopril 20 mg 20 mg=1 tab, PO, Active [place] oral tablet Daily, 0 2018 Medical Refill(s) Center Metformin 1,000 mg=1 tab, Inactive [place] hydrochloride PO, BID-Meals, # 2018 Medical 1000 MG Oral 30 tab, 0 [place] Tablet Refill(s) lovastatin 10 mg 10 mg=1 tab, PO, Active [place] oral tablet Daily, 0 2018 Medical Refill(s) Center glimepiride 4 MG 4 mg=1 tab, PO, Active [place] Oral Tablet Daily, 0 2018 Medical [Amaryl] Refill(s) Center Insulin Lispro 3 unit, 0.03 mL, No Longer [place] Route: SUB-Q, Active 2017 Medical Drug form: [...] Glucagon 1 mg, Route: IM, No Longer [place] Drug form: Active 2018 Medical PDR/INJ, PRN, Center Dosing Weight 77.273, kg, PRN Blood Glucose Results, Start date: 08/25/17 12:11:00 CDT, Duration: 30 day, Stop date: 09/24/17 12:10:00 CDT Dextrose 50% 25 gm, 50 mL, No Longer [place] Syringe Route: IVP, Drug Active 2017 Medical Form: INJ, Center Dosing Weight 77.273, kg, PRN, PRN Blood Glucose Results, Start date: 08/25/17 12:11:00 CDT, Duration: 30 day, Stop date: 09/24/17 12:10:00 CDT Plavix 75 mg, 1 tab, No Longer [facility] Route: PO, Drug Active 2017 Medical form: TAB, Center Daily, Dosing Weight 77.273, kg, Start date: 08/25/17 12:00:00 CDT, Duration: 30 day, Stop date: 09/24/17 9:00:00 CDTNotes: (Same As: Plavix) Tylenol 650 mg, 2 tab, No Longer [place] Route: PO, Drug Active 2017 Medical form: TAB, Q6H, Center Dosing Weight 77.273, kg, PRN Pain Score 1-3, Start date: 08/25/17 0:45:00 CDT, Duration: 30 day, Stop date: 09/24/17 0:44:00 CDTNotes: Do not exceed 4 gm/day. (Same as: Tylenol) Saline Flush 10 ml, Route: No Longer [place] 0.9% MISC, Drug Form: Active 2018 Medical [...] Saline Flush 10 ml, Route: No Longer [place] 0.9% MISC, Drug Form: Active 2018 Medical INJ, Dosing Center Weight 77.273, kg, PRN, PRN Line Flush, Start date: 08/24/17 14:44:00 CDT, Duration: 30 day, Stop date: 09/23/17 14:43:00 CDTNotes: (Same as: BD Posiflush) iodixanol 100 mL, Route: Inactive [place] IVP, Drug Form: 2018 Medical SOLN, kg, Center ONCALL, STAT, Start date: 08/24/17 14:16:00 CDT, Duration: 1 doses or times, Dose=2.2ml/kg, Max [id number] -- "To be infused by Radiology Staff ONLY" Saline Flush 10 mL, Route: No Longer [place] 0.9% IVP, Drug Form: Active 2018 Medical [...] Refill(s) Docusate Sodium 100 mg=1 cap, Active [place] 100 MG Oral PO, BID, # 28 2017 Medical Capsule [Colace] cap, 0 Refill(s) Center Saline Flush 10 ml, Route: No Longer [place] 0.9% IVP, Drug Form: Active 2017 Medical INJ, Dosing Center Weight 72.727, kg, Q12H, Start date: 06/19/16 21:00:00 CDT, Duration: 30 day, Stop date: 07/19/16 9:00:00 CDTNotes: Same as: BD Posiflush Sterile sennosides, [facility] 8.6 mg, 1 tab, No Longer [place] Route: PO, Drug Active 2016 Medical Form: TAB, Center Dosing Weight 72.727, kg, Q12H, Start date: 06/19/16 21:00:00 CDT, Duration: 30 day, Stop date: 07/19/16 9:00:00 CDTNotes: (Same as: Senokot) Docusate 100 mg, 1 cap, No Longer [place] Route: PO, Drug Active 2016 Medical form: CAP, Q12H, Center Dosing Weight 72.727, kg, Start date: 06/19/16 21:00:00 CDT, Duration: 30 day, Stop date: 07/19/16 9:00:00 CDTNotes: (Same as: Colace) (Do Not Crush) Tylenol 650 mg, 2 tab, No Longer [place] Route: PO, Drug Active 2016 Medical form: TAB, Q6H, Center Dosing Weight 72.727, kg, PRN Pain Score 1-3, Start date: 06/19/16 19:10:00 CDT, Duration: 30 day, Stop date: 07/19/16 19:09:00 CDTNotes: Do not exceed 4 gm/day. (Same as: Tylenol) Insulin regular 8 unit, 0.08 mL, No Longer [place] Route: SUB-Q, Active 2016 Medical Drug form: [...] Glucagon 1 mg, Route: IM, No Longer [facility] Drug form: Active 2017 Medical PDR/INJ, PRN, Center Dosing Weight 72.727, kg, PRN Blood Glucose Results, Start date: 06/19/16 16:10:00 CDT, Duration: 30 day, Stop date: 07/19/16 16:09:00 CDT Dextrose 50% 25 gm, 50 mL, No Longer [facility] Syringe Route: IVP, Drug Active 2016 Medical Form: INJ, Center Dosing Weight 72.727, kg, PRN, PRN Blood Glucose Results, Start date: 06/19/16 16:10:00 CDT, Duration: 30 day, Stop date: 07/19/16 16:09:00 CDT potassium 2 pkt, Route: No Longer [facility] phosphate-sodium PO, Drug Form: Active 2017 [...] potassium 45 mmol, 15 mL, No Longer [facility] phosphate + Route: IVPB, Active 2017 [...] phosphate 45 mmol, 15 mL, No Longer [place] + sodium Route: IVPB, Active 2016 Medical chloride 0.9% PRN, Dosing Center INJ 250 mL Weight 72.727, kg, PRN Abnormal Lab Result, Start date: 06/19/16 13:36:00 CDT, Duration: 30 day, Stop date: 07/19/16 13:35:00 CDT, FOR ICU USE ONLY Magnesium Oxide 800 mg, 2 tab, No Longer [place] Route: PO, Drug Active 2016 Medical form: TAB, PRN, Center Dosing Weight 72.727, kg, PRN Abnormal Lab Result, FOR ICU USE ONLY, Start date: 06/19/16 13:36:00 CDT, Duration: 30 day, Stop date: 07/19/16 13:35:00 CDTNotes: (Same as: Mag-Ox 400) Magnesium oxide [id number] elemental magnesium Dose=____mg magnesium oxide (___mg elemental [...] CDTNotes: (Same As: Sarah) Calcium Carbonate 500 zx=408 mg elemental calcium Dose= mg calcium carbonate [...] mg Naloxone 0.4 mg, 1 mL, Inactive [facility] Route: IVP, Drug 2016 Medical form: INJ, Center Q2MIN, Dosing Weight 72.727, kg, PRN Narcotic Reversal, Start date: 06/19/16 10:50:00 CDT, Duration: 8 doses or times, Stop date: Limited # of timesNotes: Same as Narcan Flumazenil 0.2 mg, 2 mL, Inactive [facility] Route: IVP, Drug 2016 Medical form: INJ, PRN, Center Dosing Weight 72.727, kg, PRN Benzodiazepine Reversal, Initial dose, Start date: 06/19/16 10:50:00 CDT, Duration: 1 day, Stop date: 06/20/16 10:49:00 CDTNotes: (Same as: Romazicon) Omnipaque 350 150 ml, Route: Inactive [facility] INTRAARTERIAL, 2017 Medical Dosing Weight Center 72.727, kg, ONCE, Start date: 06/19/16 10:26:00 CDT, Stop date: 06/19/16 10:26:00 CDT Lipitor PO, Daily, 0 Active [facility] Refill(s) 2017 [facility] Aspirin 325 mg, PO, 0 Active [facility] Refill(s) 2017 [facility] ceFAZolin 2 gm, 100 mL, Inactive [facility] Route: IVPB, 2017 Medical Drug form: INJ, Center PRE OP, Start date: 06/19/16 1:00:00 CDT, Duration: 1 day, Stop date: 06/20/16 0:59:00 CDTNotes: Same as: Ancef Acetaminophen 650 mg, PO, Q6H, Active [facility] PRN Pain Score 2017 Medical 1-5, 0 Refill(s) [place] Trazodone 50 mg=1 tab, PO, Active [place] Hydrochloride 50 Bedtime, # 30 2017 Medical MG Oral Tablet tab, 0 Refill(s) Center Sodium Chloride 1 gm=1 tab, PO, Active [place] 1000 MG Oral Q6H, # 120 tab, 2017 Medical Tablet 0 Refill(s) Center polyethylene 17 gm, PO, Active [facility] glycol 3350 oral Daily, X 30 [...] needed for itching, Start date: 03/24/16 12:08:00 ENVIRONMENTAL ADVISER, Duration: 30 day, Stop date: 04/23/16 12:07:00 CDT Eucerin Plus 1 appl, Route: No Longer [facility] topical lotion TOP, Drug Form: Active 2016 Medical LOT, Dosing Center Weight 75, kg, BID, PRN as needed for dry skin, Start date: 03/24/16 12:08:00 ENVIRONMENTAL ADVISER, Duration: 30 day, Stop date: 04/23/16 12:07:00 CDTNotes: (Same as: Cetaphil Lotion) Nimodipine 30 mg, 1 mL, No Longer [place] Route: PO, Drug Active 2016 Medical form: SUSP, Center Q12H, Dosing Weight 90.009, kg, Start date: 03/22/16 21:00:00 ENVIRONMENTAL ADVISER, Duration: 30 day, Stop date: 04/21/16 9:00:00 CDTNotes: (Same as Nimodipine oral suspension 30mg/ml) Instill dose into NG tube and then flush with 30ml of NS emollients, 1 appl, Route: No Longer [place] topical lotion TOP, Drug Form: Active 2017 Medical LOT, Dosing Center Weight 75, kg, BID, Start date: 03/21/16 20:00:00 ENVIRONMENTAL ADVISER, Duration: 30 day, Stop date: 04/20/16 8:00:00 CSTNotes: (Same as: Cetaphil Lotion) SMOG Enema 900 mL, Route: No Longer [place], Drug Form: Active 2017 Medical PEPITO, Dosing Center Weight 75, kg, Daily, PRN Constipation, Start date: 03/21/16 16:50:00 ENVIRONMENTAL ADVISER, Duration: 7 day, Stop date: 03/28/16 16:49:00 CSTNotes: Non formulary item saline for irrigation (1L bottle) 100 mL, mineral oil 100 mL, glycerine 100 mL. Dispense (300 ml) in 1L NS bottle Bisacodyl 10 mg, 1 supp, No Longer [place] Route: [place], Drug Active 2016 Medical form: SUPP, Center Daily, Dosing Weight 75, kg, PRN Constipation, Start date: 03/21/16 16:49:00 ENVIRONMENTAL ADVISER, Duration: 7 day, Stop date: 03/28/16 16:48:00 CSTNotes: (Same As: Dulcolax, Bisco-Lax) magnesium 150 ml, Route: No Longer [place] citrate 58.2 PO, Drug Form: Active 2017 Medical MG/ML Oral LIQ, Dosing Center Solution Weight 75, kg, Daily, PRN Constipation, Start date: 03/21/16 16:49:00 ENVIRONMENTAL ADVISER, Duration: 7 day, Stop date: 03/28/16 16:48:00 CSTNotes: (Same as: Citrate of Magnesia) Concentration: 1.745 gm / 30 mL mineral oil 30 ml, Route: Inactive [place] PO, Drug Form: 2017 Medical LIQ, Dosing Center Weight 75, kg, ONCE, Start date: 03/21/16 10:24:00 ENVIRONMENTAL ADVISER, Stop date: 03/21/16 10:24:00 ENVIRONMENTAL ADVISER Milk of Magnesia 30 ml, Route: Inactive [place] PO, Drug Form: 2017 Medical SUSP, Dosing Center Weight 75, kg, ONCE, Start date: 03/21/16 10:24:00 ENVIRONMENTAL ADVISER, Stop date: 03/21/16 10:24:00 CSTNotes: (Same as: Milk of Magnesia, MOM) Metformin 1,000 mg, 2 tab, No Longer [facility] Route: PO, Drug Active 2016 Medical form: TAB, BID, Center Dosing Weight 75, kg, Start date: 03/20/16 20:00:00 ENVIRONMENTAL ADVISER, Stop date: 04/19/16 8:00:00 CSTNotes: (Same as: Glucophage) Take with meal Nimodipine 60 mg, 2 mL, No Longer [facility] Route: PO, Drug Active 2016 Medical form: SUSP, Q8H, Center Dosing Weight 90.009, kg, Start date: 03/20/16 16:00:00 ENVIRONMENTAL ADVISER, Duration: 30 day, Stop date: 04/19/16 8:00:00 CSTNotes: (Same as Nimodipine oral suspension 30mg/ml) Instill dose into NG tube and then flush with 30ml of NS Trazodone 50 mg, 1 tab, No Longer [place] Hydrochloride 50 Route: PO, Drug Active 2016 Medical MG Oral Tablet form: TAB, Center Bedtime, Dosing Weight 75, kg, Start date: 03/19/16 21:00:00 ENVIRONMENTAL ADVISER, Duration: 30 day, Stop date: 04/17/16 21:00:00 CSTNotes: (Same As: Desyrel) Metformin 500 mg, 1 tab, No Longer [place] Route: PO, Drug Active 2016 Medical form: TAB, Center Breakfast, Dosing Weight 75, kg, Start date: 03/19/16 7:00:00 ENVIRONMENTAL ADVISER, Duration: 30 day, Stop date: 04/17/16 7:00:00 CSTNotes: (Same as: Glucophage) Take with meal Menthol 0.0044 1 appl, Route: No Longer [place] MG/MG / Zinc TOP, BID, Drug Active 2016 Medical Oxide 0.2 MG/MG form: OINT, PRN Center Topical Ointment Diaper Rash, [Calmoseptine Start date: Ointment] 03/18/16 16:34:00 ENVIRONMENTAL ADVISER, Duration: 30 day, Stop date: 04/17/16 16:33:00 CSTNotes: (Same as: Calmoseptine) Insulin, Aspart, 2 unit, 0.02 mL, No Longer [place] Human Route: SUB-Q, Active 2016 Medical Drug form: SOLN, Center Bedtime, Dosing Weight 75, kg, PRN Blood Glucose Results, Start date: 03/18/16 12:27:00 ENVIRONMENTAL ADVISER, Duration: 30 day, Stop date: 04/17/16 12:26:00 CSTNotes: Roll in palms of hands gently; Do not shake vigorously. (Same as: NovoLOG) "single patient use only" WASTE: F/P - Black; E - Municipal Trash Bin Stable for 28 days at room temperature. Expires in days from Da te Dextrose 50% 12.5 gm, 25 mL, No Longer [facility] Syringe Route: IVP, Drug Active 2016 Medical Form: INJ, Center Dosing Weight 75, kg, PRN, PRN Blood Glucose Results, Start date: 03/18/16 12:27:00 ENVIRONMENTAL ADVISER, Duration: 30 day, Stop date: 04/17/16 12:26:00 ENVIRONMENTAL ADVISER Glucagon 1 mg, Route: IM, No Longer [facility] Drug form: Active 2017 Medical PDR/INJ, PRN, Center Dosing Weight 75, kg, PRN Blood Glucose Results, Start date: 03/18/16 12:27:00 ENVIRONMENTAL ADVISER, Duration: 30 day, Stop date: 04/17/16 12:26:00 ENVIRONMENTAL ADVISER Insulin, Aspart, 4 unit, Route: Inactive [place] Human SUB-Q, ONCE, 2016 Medical Dosing Weight Center 75, kg, Start date: 03/15/16 22:18:00 ENVIRONMENTAL ADVISER, Stop date: 03/15/16 22:18:00 ENVIRONMENTAL ADVISER Insulin, Aspart, 4 unit, 0.04 mL, No Longer [facility] Human Route: SUB-Q, Active 2016 Medical Drug form: SOLN, Center ONCE, Dosing Weight 75, kg, Start date: 03/14/16 22:46:00 ENVIRONMENTAL ADVISER, Stop date: 03/14/16 22:46:00 CSTNotes: Roll in palms of hands gently; Do not shake vigorously. (Same as: NovoLOG) "single patient use only" WASTE: F/P - Black; E - Municipal Trash Bin Stable for 28 days at room temperature. Expires in days from Da te Cipro 500 mg, 1 tab, No Longer [facility] Route: PO, Drug Active 2016 Medical form: TAB, Center [id number], Dosing Weight 75, kg, Start date: 03/14/16 11:00:00 ENVIRONMENTAL ADVISER, Duration: 30 day, Stop date: 04/12/16 23:00:00 CSTNotes: May interfere w/enteral feedings - Take 1 hr before or 2 hrs after antacids, dairy pdt & minerals. On empty stomach. Melatonin 3 MG 6 mg, 2 tab, No Longer [facility] Extended Release Route: PO, Drug Active 2016 Medical Tablet Form: TAB, Center Dosing Weight 75, kg, Bedtime, Start date: 03/13/16 21:00:00 ENVIRONMENTAL ADVISER, Stop date: 04/11/16 21:00:00 CSTNotes: (Same as: Melatonin) NovoLOG FlexPen 5 unit, 0.05 mL, No Longer [place] Route: SUB-Q, Active 2016 Medical Drug form: SOLN, Center TID-Meals, Start date: 03/13/16 12:00:00 ENVIRONMENTAL ADVISER, Stop date: 03/18/16 23:00:00 CSTNotes: Roll in [...] Weight 75, kg, Start date: 03/13/16 11:30:00 ENVIRONMENTAL ADVISER, Duration: 30 day, Stop date: 04/12/16 6:30:00 ENVIRONMENTAL ADVISER Insulin Glargine 15 unit, 0.15 No Longer [facility] mL, Route: Active 2016 Medical SUB-Q, Drug Center form: SOLN, Daily, Dosing Weight 75, kg, Start date: 03/13/16 11:30:00 ENVIRONMENTAL ADVISER, Stop date: 03/18/16 23:00:00 CSTNotes: Same as: Lantus) Do not hold insulin without contacting prescriber WASTE: F/P - Black; E - Municipal Trash Bin Glucagon 1 mg, Route: IM, Inactive [place] PRN, Dosing 2017 Medical Weight 75, kg, Center PRN Blood Glucose Results, Start date: 03/13/16 10:07:00 ENVIRONMENTAL ADVISER, Duration: 30 day, Stop date: 04/12/16 10:06:00 ENVIRONMENTAL ADVISER Dextrose 50% 25 mL, Route: Inactive [place] Syringe IVP, Dosing 2017 Medical Weight 75, kg, Center PRN, PRN Blood Glucose Results, Start date: 03/13/16 10:07:00 ENVIRONMENTAL ADVISER, Duration: 30 day, Stop date: 04/12/16 10:06:00 ENVIRONMENTAL ADVISER Melatonin 3 MG 3 mg, 1 tab, No Longer [place] Extended Release Route: PO, Drug Active 2016 Medical Tablet Form: TAB, Center Dosing Weight 90.009, kg, Bedtime, Start date: 03/12/16 21:00:00 ENVIRONMENTAL ADVISER, Duration: 30 day, Stop date: 04/10/16 21:00:00 CSTNotes: (Same as: Melatonin) Glucagon 1 mg, Route: IM, No Longer [place] Drug form: Active 2017 Medical PDR/INJ, PRN, Center Dosing Weight 75, kg, PRN Blood Glucose Results, Start date: 03/12/16 15:24:00 ENVIRONMENTAL ADVISER, Duration: 30 day, Stop date: 04/11/16 15:23:00 ENVIRONMENTAL ADVISER Dextrose 50% 25 gm, 50 mL, No Longer [place] Syringe Route: IVP, Drug Active 2016 Medical Form: INJ, Center Dosing Weight 75, kg, PRN, PRN Blood Glucose Results, Start date: 03/12/16 15:24:00 ENVIRONMENTAL ADVISER, Duration: 30 day, Stop date: 04/11/16 15:23:00 ENVIRONMENTAL ADVISER Insulin, Aspart, 10 unit, 0.1 mL, No Longer [place] Human Route: SUB-Q, Active 2016 Medical Drug form: SOLN, Center TID-Before Meals, Dosing Weight 75, kg, PRN Blood Glucose Results, Start date: 03/12/16 15:24:00 ENVIRONMENTAL ADVISER, Duration: 30 day, Stop date: 04/11/16 15:23:00 CSTNotes: Roll in palms of hands gently; Do not shake vigorously. (Same as: NovoLOG) "single patient use only" WASTE: F/P - Black; E - Municipal Trash Bin Stable for 28 days at room temperature. Expires in days from Da te sennosides, [facility] 8.6 mg, 1 tab, No Longer [place] Route: PO, Drug Active 2016 Medical Form: TAB, Center Dosing Weight 90.009, kg, QNoon, Start date: 03/12/16 12:00:00 ENVIRONMENTAL ADVISER, Duration: 30 day, Stop date: 04/10/16 12:00:00 CSTNotes: (Same as: Senokot) Saline Flush 10 ml, Route: No Longer [place] 0.9% IVP, Drug Form: Active 2017 Medical INJ, Dosing Center Weight 90.009, kg, Q12H, Start date: 03/12/16 9:00:00 ENVIRONMENTAL ADVISER, Duration: 30 day, Stop date: 04/10/16 21:00:00 CSTNotes: (Same as: BD Posiflush) Keppra 500 mg, 1 tab, No Longer [place] Route: PO, Drug Active 2016 Medical form: TAB, Q12H, Center Dosing Weight 90.009, kg, Start date: 03/12/16 9:00:00 ENVIRONMENTAL ADVISER, Duration: 30 day, Stop date: 04/10/16 21:00:00 CSTNotes: (Same as:Keppra) Buspar 5 mg, 1 tab, No Longer [place] Route: PO, Drug Active 2016 Medical form: TAB, TID, Center Dosing Weight 90.009, kg, Start date: 03/12/16 8:00:00 ENVIRONMENTAL ADVISER, Stop date: 04/10/16 17:00:00 CSTNotes: (Same As: BuSpar) insulin, 40 unit, 0.4 mL, No Longer [place] isophane Route: SUB-Q, Active 2016 Medical Drug form: INJ, Center Q8H, Dosing Weight 90.009, kg, Start date: 03/12/16 8:00:00 ENVIRONMENTAL ADVISER, Duration: 30 day, Stop date: 04/11/16 0:00:00 CSTNotes: Roll in palms of hands gently; Do not shake vigorously. (Same as: Humulin N) Do not hold insulin without contacting prescriber WASTE: F/P - Black; E - Municipal Trash Bin Stable for 28 days at room temperature Expires in days from Da te Miralax 17 gm, 1 pkt, No Longer [place] Route: PO, Drug Active 2016 Medical form: PWDR, Center Daily, Dosing Weight 90.009, kg, Start date: 03/12/16 8:00:00 ENVIRONMENTAL ADVISER, Duration: 30 day, Stop date: 04/10/16 8:00:00 CSTNotes: Dissolve in 8 oz of water or juice. (Same as: Miralax) Docusate 100 mg, 1 cap, No Longer [place] Route: PO, Drug Active 2016 Medical form: CAP, BID, Center Dosing Weight 90.009, kg, Start date: 03/12/16 8:00:00 ENVIRONMENTAL ADVISER, Duration: 30 day, Stop date: 04/10/16 20:00:00 CSTNotes: (Same as: Colace) (Do Not Crush) Insulin, Aspart, 4 unit, 0.04 mL, Inactive [place] Human Route: SUB-Q, 2016 Medical Drug form: SOLN, Center TID-Before Meals, Dosing Weight 75, kg, PRN Blood Glucose Results, Start date: 03/12/16 3:15:00 ENVIRONMENTAL ADVISER, Duration: 30 day, Stop date: 04/11/16 3:14:00 CSTNotes: Roll in palms of hands gently; Do not shake vigorously. (Same as: NovoLOG) "single patient use only" WASTE: F/P - Black; E - Municipal Trash Bin Stable for 28 days at room temperature. Expires in days from Da te Dextrose 50% 25 gm, 50 mL, Inactive [place] Syringe Route: IVP, Drug 2016 Medical Form: INJ, Center Dosing Weight 75, kg, PRN, PRN Blood Glucose Results, Start date: 03/12/16 3:15:00 ENVIRONMENTAL ADVISER, Duration: 30 day, Stop date: 04/11/16 3:14:00 ENVIRONMENTAL ADVISER Glucagon 1 mg, Route: IM, Inactive [place] Drug form: 2017 Medical PDR/INJ, PRN, Center Dosing Weight 75, kg, PRN Blood Glucose Results, Start date: 03/12/16 3:15:00 ENVIRONMENTAL ADVISER, Duration: 30 day, Stop date: 04/11/16 3:14:00 ENVIRONMENTAL ADVISER Sodium Chloride 1 gm, 1 tab, No Longer [place] 1000 MG Oral Route: PO, Drug Active 2016 Medical Tablet form: TAB, Q6H, Center Dosing Weight 90.009, kg, Start date: 03/12/16 0:00:00 ENVIRONMENTAL ADVISER, Duration: 30 day, Stop date: 04/10/16 18:00:00 ENVIRONMENTAL ADVISER Nimodipine 60 mg, 2 mL, No Longer [place] Route: PO, Drug Active 2016 Medical form: SUSP, Q4H, Center Dosing Weight 90.009, kg, Start date: 03/12/16 0:00:00 ENVIRONMENTAL ADVISER, Duration: 30 day, Stop date: 04/10/16 20:00:00 CSTNotes: (Same as Nimodipine oral suspension 30mg/ml) Instill dose into NG tube and then flush with 30ml of NS heparin 5,000 unit, 1 No Longer [place] mL, Route: Active 2016 Medical SUB-Q, Drug Center form: INJ, Q8H, Dosing Weight 90.009, kg, Start date: 03/12/16 0:00:00 ENVIRONMENTAL ADVISER, Duration: 30 day, Stop date: 04/10/16 16:00:00 CSTNotes: porcine heparin Seroquel 25 mg, 1 tab, No Longer [place] Route: PO, Drug Active 2016 Medical form: TAB, BID, Center Dosing Weight 90.009, kg, PRN Agitation, Start date: 03/11/16 21:52:00 ENVIRONMENTAL ADVISER, Duration: 30 day, Stop date: 04/10/16 21:51:00 CSTNotes: (Same as: SEROquel) Tylenol 650 mg, 20.3 mL, No Longer [place] [place] Route: PO, Drug Active 2016 Medical form: LIQ, Q4H, Center Dosing Weight 90.009, kg, PRN Pain Score 1-5, Start date: 03/11/16 21:52:00 ENVIRONMENTAL ADVISER, Stop date: 04/10/16 21:51:00 CSTNotes: Max acetaminophen=40 00mg/day (4 gm/day). (Same as: Tylenol) Saline Flush 10 ml, Route: No Longer [place] 0.9% IVP, Drug Form: Active 2017 Medical INJ, Dosing Center Weight 90.009, kg, PRN, PRN Line Flush, Start date: 03/11/16 21:52:00 ENVIRONMENTAL ADVISER, Duration: 30 day, Stop date: 04/10/16 21:51:00 CSTNotes: (Same as: BD Posiflush) POLYETHYLENE PO, Daily, 0 Active [place] GLYCOL 3350 Refill(s) 2017 [facility] Center Levetiracetam 500 mg=5 mL, PO, Active [place] 100 MG/ML Oral Q12H, 0 2016 Medical Solution Refill(s) [place] insulin isophane 40 unit, SUB-Q, Active [place] (NPH) 100 Q8H, 0 Refill(s) 2017 Medical units/mL human Center recombinant subcutaneous suspension heparin 5,000 unit=1 mL, Active [place] SUB-Q, Q8H, 0 2016 Medical Refill(s) [place] bisacodyl 10 mg 10 mg=1 supp, Active [place] rectal [place], ONCE, PRN 2017 Medical suppository Constipation | Center once, 0 Refill(s) insulin, 40 unit, 0.4 mL, No Longer [place] isophane Route: SUB-Q, Active 2016 Medical Drug form: INJ, Center Q8H, Dosing Weight 90.009, kg, Start date: 03/10/16 16:00:00 ENVIRONMENTAL ADVISER, Duration: 30 day, Stop date: 04/09/16 8:00:00 CSTNotes: Roll in palms of hands gently; Do not shake vigorously. (Same as: Humulin N) Do not hold insulin without contacting prescriber WASTE: F/P - Black; E - Municipal Trash Bin Stable for 28 days at room temperature Expires in days from Da te Keppra 500 mg, 5 mL, No Longer [place] Route: PO, Drug Active 2016 Medical form: SOLN, Center Q12H, Dosing Weight 90.009, kg, Start date: 03/10/16 9:00:00 ENVIRONMENTAL ADVISER, Duration: 30 day, Stop date: 04/08/16 21:00:00 CSTNotes: Same as: Keppra Nimodipine 60 mg, 2 mL, No Longer [place] Route: [place], Drug Active 2016 Medical form: SUSP, Q4H, Center Dosing Weight 90.909, kg, Start date: 03/10/16 0:00:00 ENVIRONMENTAL ADVISER, Duration: 30 day, Stop date: 04/08/16 20:00:00 CSTNotes: (Same as Nimodipine oral suspension 30mg/ml) Instill dose into NG tube and then flush with 30ml of NS Sodium Chloride 1 gm, 1 tab, No Longer [place] 1000 MG Oral Route: PO, Drug Active 2016 Medical Tablet form: TAB, Q6H, Center Dosing Weight 90.009, kg, Priority: NOW, Start date: 03/09/16 18:11:00 ENVIRONMENTAL ADVISER, Duration: 30 day, Stop date: 04/08/16 18:00:00 ENVIRONMENTAL ADVISER Ancef + sodium 2 gm, Route: Inactive [place] chloride 0.9% IVPB, ONCE, 2017 Medical INJ 100 mL Dosing Weight Center 90.009, kg, Start date: 03/08/16 10:55:00 ENVIRONMENTAL ADVISER, Duration: 1 doses or times, Stop date: 03/08/16 10:55:00 ENVIRONMENTAL ADVISER, Surgical Prophylaxis Only; For patients Notes: (Same As: Hermelinda Thomas) Cefazolin FOR IV SET ONLY MEDICATION WASTE Product Size: 1000 mg Product Wasted: ___ mg Sodium Chloride 1,000 mL, 1,000 Inactive [place] 0.154 MEQ/ML ml/hr, Infuse 2017 Medical Injectable Over: 1 hr, [place] Solution Route: IV, 1,000, Drug form: INJ, ONCE, Priority: STAT, Dosing Weight 90.009 kg, Start date: 03/08/16 6:25:00 ENVIRONMENTAL ADVISER, Duration: 1 doses or times, Stop date: 03/08/16 6:25:00 ENVIRONMENTAL ADVISER Sodium Chloride 250 mL, 250 Inactive [place] 0.154 MEQ/ML ml/hr, Infuse 2017 Medical Injectable Over: 1 hr, Center Solution Route: IV, 250, Drug form: INJ, ONCE, Priority: STAT, Dosing Weight 90.009 kg, Start date: 03/07/16 14:24:00 ENVIRONMENTAL ADVISER, Duration: 1 doses or times, Stop date: 03/07/16 14:24:00 ENVIRONMENTAL ADVISER Sodium Chloride 500 mL, 500 Inactive [place] 0.154 MEQ/ML ml/hr, Infuse 2017 Medical Injectable Over: 1 hr, Center Solution Route: IV, 500, Drug form: INJ, ONCE, Priority: STAT, Dosing Weight 90.009 kg, Start date: 03/06/16 7:54:00 ENVIRONMENTAL ADVISER, Duration: 1 doses or times, Stop date: 03/06/16 7:54:00 ENVIRONMENTAL ADVISER Sodium Chloride 500 mL, 500 Inactive [place] 0.154 MEQ/ML ml/hr, Infuse 2017 Medical Injectable Over: 1 hr, Center Solution Route: IV, 500, Drug form: INJ, ONCE, Priority: STAT, Dosing Weight 90.009 kg, Start date: 03/06/16 6:30:00 ENVIRONMENTAL ADVISER, Duration: 1 doses or times, Stop date: 03/06/16 6:30:00 ENVIRONMENTAL ADVISER Racepinephrine 11.25 mg, 0.5 Inactive [place] 22.5 MG/ML mL, Route: NEB, 2017 Medical Inhalant Drug Form: SOLN, Center Solution Dosing Weight 90.009, kg, RQ4H, Start date: 03/05/16 3:00:00 ENVIRONMENTAL ADVISER, Duration: 30 day, Stop date: 04/03/16 23:00:00 CSTNotes: (racepinephrine *2.25% inh 0.5ml SOLN) (Same as:S2) Dexamethasone 10 mg, 2.5 mL, Inactive [place] Route: IV, Drug 2016 Medical form: INJ, ONCE, Center Dosing Weight 90.009, kg, Start date: 03/05/16 0:42:00 ENVIRONMENTAL ADVISER, Stop date: 03/05/16 0:42:00 CSTNotes: Concentration: 4mg/ml Ondansetron 4 mg, 2 mL, Inactive [facility] Route: IVP, Drug 2016 Medical form: INJ, ONCE, Center Dosing Weight 90.009, kg, PRN Nausea & Vomiting, Start date: 03/04/16 17:03:00 CSTNotes: (Same as: Zofran) MEDICATION WASTE Product Size: 4 mg Product Wasted: ___ mg Flumazenil 0.2 mg, 2 mL, Inactive [place] Route: IVP, Drug 2016 Medical form: INJ, PRN, Center Dosing Weight 90.009, kg, PRN Benzodiazepine Reversal, Initial dose, Start date: 03/04/16 17:03:00 ENVIRONMENTAL ADVISER, Duration: 30 day, Stop date: 04/03/16 17:02:00 CSTNotes: (Same as: Romazicon) Naloxone 0.4 mg, 1 mL, Inactive [facility] Route: IVP, Drug 2016 Medical form: INJ, Center Q2MIN, Dosing Weight 90.009, kg, PRN Narcotic Reversal, Start date: 03/04/16 17:03:00 ENVIRONMENTAL ADVISER, Duration: 8 doses or times, Stop date: Limited # of timesNotes: Same as Narcan Labetalol 10 mg, 2 mL, Inactive [facility] Route: IVP, Drug 2016 Medical form: INJ, Center Q5Min, Dosing Weight 90.009, kg, PRN Elevated BP, Start date: 03/04/16 17:03:00 ENVIRONMENTAL ADVISER, Duration: 5 doses or times, Stop date: Limited # of times esmolol 10 mg, Route: Inactive [facility] IVP, Q5Min, 2017 Medical Dosing Weight Center 90.009, kg, PRN Other -See Comment, Start date: 03/04/16 17:03:00 ENVIRONMENTAL ADVISER, Duration: 5 doses or times, Stop date: Limited # of times Morphine 2 mg, 1 mL, Inactive [facility] Route: IVP, Drug 2016 Medical form: INJ, Center Q5Min, Dosing Weight 90.009, kg, PRN Pain Score 4-6, Start date: 03/04/16 17:03:00 ENVIRONMENTAL ADVISER, Duration: 5 doses or times, Stop date: Limited # of timesNotes: (Same as:MORPhine Sulfate) Omnipaque 300 150 ml, Route: Inactive [facility] INTRAARTERIAL, 2017 Medical Dosing Weight Center 90.009, kg, ONCE, Start date: 03/04/16 16:39:00 ENVIRONMENTAL ADVISER, Stop date: 03/04/16 16:39:00 ENVIRONMENTAL ADVISER Ampicillin 1 gm, Route: No Longer [facility] IVPB, Drug form: Active 2016 Medical PDR/INJ, ABXQ6H, Center Dosing Weight 90.009, kg, Start date: 03/04/16 8:00:00 ENVIRONMENTAL ADVISER, Duration: 30 day, Stop date: 04/03/16 2:00:00 CSTNotes: (Same as: Andriy) MEDICATION WASTE Product Size: 1000 mg Product Wasted: ___ mg Dulcolax 10 mg, 1 supp, No Longer [place] Laxative Route: [place], Drug Active 2016 Medical form: SUPP, Center ONCE, Dosing Weight 90.009, kg, PRN Constipation, Start date: 03/04/16 7:17:00 ENVIRONMENTAL ADVISER, onceNotes: (Same As: Dulcolax, Bisco-Lax) magnesium 300 ml, Route: Inactive [place] citrate 58.2 PO, Drug Form: 2017 Medical MG/ML Oral LIQ, Dosing Center Solution Weight 90.009, kg, ONCE, Start date: 03/03/16 10:52:00 ENVIRONMENTAL ADVISER, Stop date: 03/03/16 10:52:00 CSTNotes: (Same as: Citrate of Magnesia) Concentration: 1.745 gm / 30 mL Sodium Chloride 500 mL, 500 Inactive [place] 0.154 MEQ/ML ml/hr, Infuse 2017 Medical Injectable Over: 1 hr, Center Solution Route: IV, 500, Drug form: INJ, ONCE, Priority: STAT, Dosing Weight 90.009 kg, Start date: 03/03/16 8:37:00 ENVIRONMENTAL ADVISER, Duration: 1 doses or times, Stop date: 03/03/16 8:37:00 ENVIRONMENTAL ADVISER Sodium Chloride 500 mL, 500 Inactive [place] 0.154 MEQ/ML ml/hr, Infuse 2017 Medical Injectable Over: 1 hr, Center Solution Route: IV, 500, Drug form: INJ, ONCE, Priority: STAT, Dosing Weight 90.009 kg, Start date: 03/02/16 21:40:00 ENVIRONMENTAL ADVISER, Duration: 1 doses or times, Stop date: 03/02/16 21:40:00 ENVIRONMENTAL ADVISER Tylenol 650 mg, 20.3 mL, No Longer [place] Route: PO, Drug Active 2016 Medical form: LIQ, Q6H, Center Dosing Weight 90.009, kg, PRN Pain Score 1-3, Start date: 03/02/16 10:25:00 ENVIRONMENTAL ADVISER, Stop date: 04/01/16 10:24:00 CSTNotes: Max acetaminophen=40 00mg/day (4 gm/day). (Same as: Tylenol) Dulcolax 10 mg, 1 supp, No Longer [place] Laxative Route: [place], Drug Active 2016 Medical form: SUPP, Center ONCE, Dosing Weight 90.009, kg, PRN Other -See Comment, Start date: 03/02/16 9:14:00 ENVIRONMENTAL ADVISER, onceNotes: (Same As: Dulcolax, Bisco-Lax) Sodium Chloride 1,000 mL, 1,000 Inactive [place] 0.154 MEQ/ML ml/hr, Infuse 2017 Medical Injectable Over: 1 hr, Center Solution Route: IV, 1,000, Drug form: INJ, ONCE, Priority: STAT, Dosing Weight 90.009 kg, Start date: 03/02/16 9:04:00 ENVIRONMENTAL ADVISER, Duration: 1 doses or times, Stop date: 03/02/16 9:04:00 ENVIRONMENTAL ADVISER Dexamethasone 4 mg, 1 tab, Inactive [place] Route: [place], Drug 2016 Medical form: TAB, Center Daily, Dosing Weight 90.009, kg, Start date: 03/02/16 9:00:00 ENVIRONMENTAL ADVISER, Stop date: 03/02/16 12:00:00 CSTNotes: Give with food. (Same As: Decadron) Zantac 150 mg, 10 mL, No Longer [place] Route: [place], Drug Active 2016 Medical form: SYRP, Center Q12H, Start date: 03/01/16 21:00:00 ENVIRONMENTAL ADVISER, Duration: 30 day, Stop date: 03/31/16 9:00:00 CSTNotes: (Same as:Zantac) Take before or with meals Racepinephrine 11.25 mg, 0.5 No Longer [place] 22.5 MG/ML mL, Route: NEB, Active 2016 Medical Inhalant Drug Form: SOLN, Center Solution Dosing Weight 90.009, kg, RQ4H, STAT, Start date: 03/01/16 14:46:00 ENVIRONMENTAL ADVISER, Duration: 30 day, Stop date: 03/31/16 11:00:00 CSTNotes: (racepinephrine *2.25% inh 0.5ml SOLN) (Same as:S2) Albuterol 0.83 2.49 mg, 3 mL, No Longer [place] MG/ML Inhalant Route: NEB, Drug Active 2016 Medical Solution form: SOLN, Center RQ2H, Dosing Weight 90.009, kg, PRN Wheezing, Start date: 03/01/16 14:46:00 ENVIRONMENTAL ADVISER, Duration: 30 day, Stop date: 03/31/16 14:45:00 CSTNotes: SEE RT DOCUMENTATION (Same as: Proventil) Dulcolax 10 mg, 1 supp, No Longer [place] Laxative Route: [place], Drug Active 2016 Medical form: SUPP, Center ONCE, Dosing Weight 90.009, kg, PRN Constipation, Start date: 03/01/16 7:49:00 ENVIRONMENTAL ADVISER, onceNotes: (Same As: Dulcolax, Bisco-Lax) Fentanyl 1,000 microgram, No Longer [place] 20 mL, Rate: Active 2016 Medical Titrate, Start Center Dose: 50 microgram/hr, Titration: 25 microgram/hour every 15 minutes, Goal(s): RASS 0 to -1, Max Dose: 300 microgram/hr, Route: IV, Dosing Weight 90.009 kg, Total Volume: 20, Start date: 02/29/16 21:21:00 C... Dexamethasone 4 mg, 1 tab, No Longer [place] Route: [place], Drug Active 2016 Medical form: TAB, Q12H, Center Dosing Weight 90.909, kg, Start date: 02/29/16 21:00:00 ENVIRONMENTAL ADVISER, Stop date: 03/01/16 23:54:00 CSTNotes: Give with food. (Same As: Decadron) insulin, 50 unit, 0.5 mL, No Longer [place] isophane Route: SUB-Q, Active 2016 Medical Drug form: INJ, Center Q8H, Dosing Weight 90.009, kg, Start date: 02/29/16 16:00:00 ENVIRONMENTAL ADVISER, Stop date: 03/30/16 8:00:00 CSTNotes: Roll in palms of hands gently; Do not shake vigorously. (Same as: Humulin N) Do not hold insulin without contacting prescriber WASTE: F/P - Black; E - Municipal Trash Bin Stable for 28 days at room temperature Expires in days from Da te sodium chloride 1,000 mL, Rate: No Longer [place] 0.9% 1000 ml INJ 100 ml/hr, Active 2017 Medical 1,000 mL Infuse over: 10 Center hr, Route: IV, Dosing Weight 90.009 kg, Total Volume: 1,000, Start date: 02/29/16 10:01:00 ENVIRONMENTAL ADVISER, Stop date: 03/30/16 10:00:00 ENVIRONMENTAL ADVISER magnesium 300 ml, Route: Inactive [place] citrate 58.2 PO, Drug Form: 2016 Medical MG/ML Oral LIQ, Dosing Center Solution Weight 90.009, kg, ONCE, Start date: 02/29/16 9:24:00 ENVIRONMENTAL ADVISER, Stop date: 02/29/16 9:24:00 CSTNotes: (Same as: Citrate of Magnesia) Concentration: 1.745 gm / 30 mL Streptococcus 0.5 mL, Route: Inactive [place] pneumoniae IM, Drug Form: 2016 Medical serotype 1 INJ, Daily, Center capsular antigen Start date: diphtheria 02/29/16 9:00:00 [id number] protein ENVIRONMENTAL ADVISER, Duration: 1 conjugate doses or times, vaccine / Stop date: Streptococcus 02/29/16 9:00:00 pneumoniae CSTNotes: (Same serotype 14 as: Prevnar 13) capsular antigen diphtheria [id number] protein conjugate vaccine / Streptococcus pneumoniae serotype 18C capsular antigen d Miralax 17 gm, 1 pkt, No Longer [place] Route: PO, Drug Active 2016 Medical form: PWDR, Center Daily, Dosing Weight 90.009, kg, Start date: 02/29/16 9:00:00 ENVIRONMENTAL ADVISER, Duration: 30 day, Stop date: 03/29/16 9:00:00 CSTNotes: Dissolve in 8 oz of water or juice. (Same as: Miralax) Tylenol 650 mg, 20.3 mL, No Longer [place] Route: PO, Drug Active 2016 Medical form: LIQ, Q4H, Center Dosing Weight 90.009, kg, PRN Pain 1-3/Temp > 100.4 F, Start date: 02/29/16 5:47:00 ENVIRONMENTAL ADVISER, Stop date: 03/30/16 5:46:00 CSTNotes: Max acetaminophen=40 00mg/day (4 gm/day). (Same as: Tylenol) Sodium Chloride 500 mL, 500 No Longer [place] 0.154 MEQ/ML ml/hr, Infuse Active 2016 Medical Injectable Over: 1 hr, Center Solution Route: IV, 500, Drug form: INJ, ONCE, Priority: STAT, Dosing Weight 90.009 kg, Start date: 02/28/16 23:36:00 ENVIRONMENTAL ADVISER, Duration: 1 doses or times, Stop date: 02/28/16 23:36:00 ENVIRONMENTAL ADVISER Sodium Chloride 1,000 mL, 1,000 Inactive [place] 0.154 MEQ/ML ml/hr, Infuse 2017 Medical Injectable Over: 1 hr, Center Solution Route: IV, 1,000, Drug form: INJ, ONCE, Priority: STAT, Dosing Weight 90.009 kg, Start date: 02/28/16 22:21:00 ENVIRONMENTAL ADVISER, Duration: 1 doses or times, Stop date: 02/28/16 22:21:00 ENVIRONMENTAL ADVISER Insulin regular 9 unit, 0.09 mL, No Longer [place] Route: SUB-Q, Active 2016 Medical Drug form: SOLN, Center Sliding Scale, Dosing Weight 90.009, kg, PRN Blood Glucose Results, Start date: 02/28/16 10:21:00 ENVIRONMENTAL ADVISER, Duration: 30 day, Stop date: 03/29/16 10:20:00 [...] 50% 12.5 gm, 25 mL, No Longer [place] Syringe Route: IVP, Drug Active 2016 Medical Form: INJ, Center Dosing Weight 90.009, kg, PRN, PRN Blood Glucose Results, Start date: 02/28/16 10:21:00 ENVIRONMENTAL ADVISER, Duration: 30 day, Stop date: 03/29/16 10:20:00 ENVIRONMENTAL ADVISER Glucagon 1 mg, Route: IM, No Longer [place] Drug form: Active 2017 Medical PDR/INJ, PRN, Center Dosing Weight 90.009, kg, PRN Blood Glucose Results, Start date: 02/28/16 10:21:00 ENVIRONMENTAL ADVISER, Duration: 30 day, Stop date: 03/29/16 10:20:00 ENVIRONMENTAL ADVISER insulin, 30 unit, 0.3 mL, No Longer [place] isophane Route: SUB-Q, Active 2016 Medical Drug form: INJ, Center Q8H, Dosing Weight 90.009, kg, Start date: 02/28/16 9:00:00 ENVIRONMENTAL ADVISER, Duration: 30 day, Stop date: 03/29/16 8:00:00 CSTNotes: Roll in palms of hands gently; Do not shake vigorously. (Same as: Humulin N) Do not hold insulin without contacting prescriber WASTE: F/P - Black; E - Municipal Trash Bin Stable for 28 days at room temperature Expires in days from Da te Regular Insulin, 3 unit, 0.03 mL, Inactive [place] Human 100 UNT/ML Route: SUB-2016 Medical Injectable Drug form: SOLN, Center Solution PRN, Dosing Weight 90.009, kg, PRN Abnormal Lab Result, Start date: 02/28/16 6:56:00 ENVIRONMENTAL ADVISER, Duration: 30 day, Stop date: 03/29/16 6:55:00 CSTNotes: (Same as: Humulin R) Roll in palms of hands gently; Do not shake vigorously. "single patient use only" (Restricted to patients requiring a dose > 60 units) WASTE: F/P - Black; E - Municipal Trash Bin Stable for 28 days at room temperature Expires in days from Da te Dextrose 50% 6.25 gm, 12.5 Inactive [place] Syringe mL, Route: IVP, 2016 Medical Drug Form: INJ, Center Dosing Weight 90.009, kg, PRN, PRN Abnormal Lab Result, Start date: 02/28/16 6:56:00 ENVIRONMENTAL ADVISER, Duration: 30 day, Stop date: 03/29/16 6:55:00 ENVIRONMENTAL ADVISER heparin 5,000 unit, 1 No Longer [place] mL, Route: Active 2016 Medical SUB-Q, Drug Center form: INJ, Q8H, Dosing Weight 90.009, kg, Start date: 02/28/16 0:01:00 ENVIRONMENTAL ADVISER, Duration: 30 day, Stop date: 03/29/16 0:00:00 CSTNotes: porcine heparin Famotidine 20 mg, 1 tab, No Longer [place] Route: PO, Drug Active 2016 Medical form: TAB, Q12H, Center Dosing Weight 90.909, kg, Start date: 02/27/16 21:00:00 ENVIRONMENTAL ADVISER, Duration: 30 day, Stop date: 03/28/16 9:00:00 CSTNotes: (Same as: Pepcid) Levetiracetam 500 mg, 1 tab, No Longer [place] 500 MG Oral Route: PO, Drug Active 2016 Medical Tablet [Keppra] form: TAB, Q12H, Center Dosing Weight 90.009, kg, Start date: 02/27/16 21:00:00 ENVIRONMENTAL ADVISER, Duration: 30 day, Stop date: 03/28/16 9:00:00 CSTNotes: (Same as:Keppra) Dexamethasone 4 mg, 1 tab, No Longer [place] Route: PO, Drug Active 2016 Medical form: TAB, Q6H, Center Dosing Weight 90.909, kg, Start date: 02/27/16 12:00:00 ENVIRONMENTAL ADVISER, Duration: 30 day, Stop date: 03/28/16 6:00:00 CSTNotes: Give with food. (Same As: Decadron) chlorhexidine 15 mL, Route: No Longer [place] gluconate 1.2 Swab Mouth, Q4H, Active 2017 Medical MG/ML Mouthwash Drug form: LIQ, [place] Start date: 02/27/16 12:00:00 ENVIRONMENTAL ADVISER, Duration: 30 day, Stop date: 03/28/16 8:00:00 CSTNotes: (Same As: Peridex) Sodium Chloride 1,000 mL, 1,000 Inactive [place] 0.154 MEQ/ML ml/hr, Infuse 2017 Medical Injectable Over: 1 hr, [place] Solution Route: IV, 1,000, Drug form: INJ, ONCE, Priority: STAT, Dosing Weight 90.009 kg, Start date: 02/27/16 2:42:00 ENVIRONMENTAL ADVISER, Duration: 1 doses or times, Stop date: 02/27/16 2:42:00 ENVIRONMENTAL ADVISER Cefazolin 2 gm, Route: Inactive [place] IVPB, Drug form: 2016 Medical INJ, ABXQ8H, Center Dosing Weight 90.009, kg, Start date: 02/27/16 1:00:00 ENVIRONMENTAL ADVISER, Duration: 24 hr, Stop date: 02/27/16 17:00:00 CSTNotes: (Same As: Hermelinda Thomas) Cefazolin FOR IV SET ONLY MEDICATION WASTE Product Size: 1000 mg Product Wasted: _0_ mg sodium chloride 500 mL, Rate: 50 No Longer [place] 3% INJ 500 mL ml/hr, Infuse Active 2016 Medical over: 10 hr, Center Route: IV, Dosing Weight 90.009 kg, Total Volume: 500, Start date: 02/27/16 0:34:00 ENVIRONMENTAL ADVISER, Stop date: 03/28/16 0:33:00 CSTNotes: "Administer by [...] Weight 90.009 kg, Start date: 02/26/16 22:47:00 ENVIRONMENTAL ADVISER, Duration: 1 doses or times, Stop date: 02/26/16 22:47:00 ENVIRONMENTAL ADVISER Mannitol 100 gm, 500 mL, No Longer [place] Route: IVPB, Active 2016 Medical Drug form: INJ, Center ONCE, Dosing Weight 90.009, kg, Priority: NOW, Start date: 02/26/16 22:29:00 ENVIRONMENTAL ADVISER, Stop date: 02/26/16 22:29:00 CSTNotes: (Same as: Osmitrol) Infuse through 5 micron or smaller filter WASTE: F/P - Sink; E - Municipal Trash Bin chlorhexidine 15 mL, Route: No Longer [place] gluconate 1.2 Swab Mouth, Active 2016 Medical MG/ML Mouthwash Q12H, Drug form: Center LIQ, Start date: 02/26/16 21:00:00 ENVIRONMENTAL ADVISER, Duration: 30 day, Stop date: 03/27/16 9:00:00 CSTNotes: (Same As: Peridex) Calcium 1,000 mg, 2 tab, No Longer [place] Carbonate 500 MG Route: PO, Drug Active 2016 Medical Chewable Tablet form: CHEWTAB, Center PRN, Dosing Weight 90.009, kg, PRN Abnormal Lab Result, FOR ICU USE ONLY, Start date: 02/26/16 20:51:00 ENVIRONMENTAL ADVISER, Duration: 30 day, Stop date: 03/27/16 20:50:00 CSTNotes: (Same As: Tums) Calcium Carbonate 500 il=228 mg elemental calcium Dose= mg calcium carbonate ( mg elemental calcium) Calcium 1 gm, 10 mL, No Longer [place] Gluconate Route: IVPB, Active 2016 Medical PRN, Dosing Center Weight 90.009, kg, PRN Abnormal Lab Result, Start date: 02/26/16 20:51:00 ENVIRONMENTAL ADVISER, Duration: 30 day, Stop date: 03/27/16 20:50:00 ENVIRONMENTAL ADVISER, FOR ICU USE ONLYNotes: WASTE: F/P - Sink; E - Municipal Trash Bin Magnesium 2 gm, 50 mL, No Longer [place] Sulfate Route: IVPB, Active 2016 Medical Drug form: INJ, Center PRN, Dosing Weight 90.009, kg, PRN Abnormal Lab Result, Start date: 02/26/16 20:51:00 ENVIRONMENTAL ADVISER, Duration: 30 day, Stop date: 03/27/16 20:50:00 ENVIRONMENTAL ADVISER, FOR ICU USE ONLYNotes: WASTE: F/P - Sink; E - Municipal Trash Bin potassium 2 pkt, Route: No Longer [place] phosphate-sodium PO, Drug Form: Active 2017 Medical phosphate 250 PDR/REC, Dosing Center mg-280 mg-160 mg Weight 90.009, oral powder for kg, PRN, PRN reconstitution Abnormal Lab Result, FOR ICU USE ONLY, Start date: 02/26/16 20:51:00 ENVIRONMENTAL ADVISER, Duration: 30 day, Stop date: 03/27/16 20:50:00 CSTNotes: (Same as: Phos-NaK) Each 1.5 gm pkt has 250mg phosphorous. Mix w/2.5oz water and stir. Magnesium Oxide 800 mg, 2 tab, No Longer [place] Route: PO, Drug Active 2016 Medical form: TAB, PRN, Center Dosing Weight 90.009, kg, PRN Abnormal Lab Result, FOR ICU USE ONLY, Start date: 02/26/16 20:51:00 ENVIRONMENTAL ADVISER, Duration: 30 day, Stop date: 03/27/16 20:50:00 CSTNotes: (Same as: Mag-Ox 400) Magnesium oxide [id number] elemental magnesium Dose=____mg magnesium oxide (___mg elemental magnesium) potassium 45 mmol, 15 mL, No Longer [place] phosphate + Route: IVPB, Active 2016 Medical sodium chloride PRN, Dosing Center 0.9% INJ 250 mL Weight 90.009, kg, PRN Abnormal Lab Result, Start date: 02/26/16 20:51:00 ENVIRONMENTAL ADVISER, Duration: 30 day, Stop date: 03/27/16 20:50:00 ENVIRONMENTAL ADVISER, FOR ICU USE ONLYNotes: (Same as: K Phosphate.) 1 mMol phoshate has 1.47 mEq potassium Infuse over 4 hours sodium phosphate 30 mmol, 10 mL, No Longer [place] + sodium Route: IVPB, Active 2016 Medical chloride 0.9% PRN, Dosing Center INJ 250 mL Weight 90.009, kg, PRN Abnormal Lab Result, Start date: 02/26/16 20:51:00 ENVIRONMENTAL ADVISER, Duration: 30 day, Stop date: 03/27/16 20:50:00 ENVIRONMENTAL ADVISER, FOR ICU USE ONLY potassium 20 mEq, 15 mL, No Longer [facility] chloride Route: [place], Drug Active 2016 Medical form: LIQ, PRN, Center Dosing Weight 90.009, kg, PRN Abnormal Lab Result, Start date: 02/26/16 20:51:00 ENVIRONMENTAL ADVISER, Duration: 30 day, Stop date: 03/27/16 20:50:00 ENVIRONMENTAL ADVISER, FOR ICU USE ONLYNotes: (Same as: Potassium Chloride) Dextrose 50% 12.5 gm, 25 mL, No Longer [place] Syringe Route: IVP, Drug Active 2016 Medical Form: INJ, Center Dosing Weight 90.009, kg, PRN, PRN Blood Glucose Results, Start date: 02/26/16 20:50:00 ENVIRONMENTAL ADVISER, Duration: 30 day, Stop date: 03/27/16 20:49:00 ENVIRONMENTAL ADVISER Insulin regular 99 mL, Rate: No Longer [place] 100 unit + Start Insulin Active 2016 Medical sodium chloride Drip Per ICU Center 0.9% INJ 99 mL Protocol, Dosing Weight 90.009, kg, Route: IVPB, Total Volume: 100, Start Date: 02/26/16 20:50:00 ENVIRONMENTAL ADVISER, Duration: 30 day, Stop date: 03/27/16 20:49:00 ENVIRONMENTAL ADVISER, Replace Every: 24 hrNotes: (Same as: Humulin R and NovoLIN R) WASTE: F/P - Black; E - Municipal Trash Bin (Do not shake) Fentanyl 1,000 microgram, No Longer [place] 20 mL, Rate: Active 2016 Medical Titrate, Start Center Dose: 50 microgram/hr, Titration: 25 microgram/hour every 15 minutes, Goal(s): RASS 0 to -1, Max Dose: 300 microgram/hr, Route: IV, Dosing Weight 90.009 kg, Total Volume: 20, Start date: 02/26/16 20:48:00 C... Dilaudid 0.5 mg, 0.25 mL, No Longer [place] Route: IV, Drug Active 2016 Medical form: INJ, Q3H, Center Dosing Weight 90.009, kg, PRN Pain Score 7-10, Start date: 02/26/16 18:52:00 ENVIRONMENTAL ADVISER, Duration: 30 day, Stop date: 03/27/16 18:51:00 CSTNotes: Same as Dilaudid Acetaminophen 1 tab, Route: No Longer [place] 325 MG / PO, Drug Form: Active 2017 Medical Hydrocodone TAB, Dosing Center Bitartrate 10 MG Weight 90.009, Oral Tablet kg, Q4H, PRN [[place] 10/325] Pain Score 4-6, Start date: 02/26/16 18:52:00 ENVIRONMENTAL ADVISER, Duration: 30 day, Stop date: 03/27/16 18:51:00 CSTNotes: Do not exceed 4gm/day of acetaminophen. (Same as: [place] 325/10) Ancef 1 gm, Route: Inactive [place] IVPB, ONCE, 2016 Medical Dosing Weight Center 90.009, kg, Start date: 02/26/16 17:15:00 ENVIRONMENTAL ADVISER, Stop date: 02/26/16 17:15:00 ENVIRONMENTAL ADVISER Ancef 2 gm, Route: IV, Inactive [place] ONCE, Dosing 2017 Medical Weight 90.909, Center kg, Start date: 02/26/16 14:15:00 ENVIRONMENTAL ADVISER, Duration: 1 doses or times, Stop date: 02/26/16 14:15:00 ENVIRONMENTAL ADVISER, Surgical Prophylaxis Only; For patients Propofol 10 1,000 mg, 100 No Longer [place] MG/ML Injectable mL, Rate: Active 2016 Medical Suspension Titrate, Start Center Dose: 5 microgram/kg/min , Titration: 5 microgram/kg/min every 15 min, Goal(s): MAP 70-100, Max Dose: 50 microgram/kg/min , Route: IV, Dosing Weight 90.909 kg, Total Volume: 100, Start date: 02/26/16 11:59:00 ENVIRONMENTAL ADVISER,... Fentanyl 50 microgram, 1 Inactive [place] mL, Route: IV, 2016 Medical Drug form: INJ, Center ONCE, Dosing Weight 90.909, kg, PRN Pain Score 7-10, Start date: 02/26/16 11:58:00 ENVIRONMENTAL ADVISER, Pediatric Dosing; For procedure; > 50 kgNotes: (Same as: Sublimaze) Preservative free. chlorhexidine 15 mL, Route: No Longer [place] gluconate 1.2 Swab Mouth, PRN, Active 2016 Medical MG/ML Mouthwash Drug form: LIQ, [place] PRN Other -See Comment, Start date: 02/26/16 9:39:00 ENVIRONMENTAL ADVISER, Duration: 30 day, Stop date: 03/27/16 9:38:00 CSTNotes: (Same As: Peridex) Ancef + sodium 2 gm, Route: Inactive [place] chloride 0.9% IVPB, ONCE, 2016 Medical INJ 100 mL Dosing Weight Center 90.909, kg, Start date: 02/26/16 9:38:00 ENVIRONMENTAL ADVISER, Duration: 1 doses or times, Stop date: 02/26/16 9:38:00 ENVIRONMENTAL ADVISER, Surgical Prophylaxis Only; For patients Notes: (Same As: Ancef, Kefzol) MEDICATION WASTE Product Size: 1000 mg Product Wasted: ___ mg Docusate 100 mg, 10 mL, No Longer [place] Route: [place], Drug Active 2016 Medical form: LIQ, Q12H, Center Dosing Weight 90.909, kg, Start date: 02/26/16 9:00:00 ENVIRONMENTAL ADVISER, Stop date: 03/26/16 21:00:00 CSTNotes: (Same as: Colace) Famotidine 20 mg, 2 mL, No Longer [place] Route: IVP, Drug Active 2016 Medical form: INJ, Q12H, Center Dosing Weight 90.909, kg, Start date: 02/26/16 9:00:00 ENVIRONMENTAL ADVISER, Duration: 30 day, Stop date: 03/26/16 21:00:00 CSTNotes: (Same as: Pepcid) sennosides, [facility] 8.8 mg, 5 mL, No Longer [place] Route: [place], Drug Active 2016 Medical Form: SYRP, Center Dosing Weight 90.909, kg, Q12H, Start date: 02/26/16 9:00:00 ENVIRONMENTAL ADVISER, Stop date: 03/26/16 21:00:00 CSTNotes: (Same as: Senokot) Levetiracetam 500 mg, Route: No Longer [place] IVPB, Q12H, Active 2016 Medical Dosing Weight Center 90.909, kg, Start date: 02/26/16 9:00:00 ENVIRONMENTAL ADVISER, Duration: 30 day, Stop date: 03/26/16 21:00:00 CSTNotes: Same as Keppra Mix with 100 mL NS, LR or D5W MEDICATION WASTE Product Size: 500 mg Product Wasted: ___ mg Omnipaque 350 150 ml, Route: Inactive [place] INTRAARTERIAL, 2016 Medical Dosing Weight Center 90.909, kg, ONCE, Start date: 02/26/16 8:56:00 ENVIRONMENTAL ADVISER, Stop date: 02/26/16 8:56:00 ENVIRONMENTAL ADVISER Nimodipine 30 mg, 1 mL, No Longer [place] Route: [place], Drug Active 2016 Medical form: SUSP, Q2H, Center Dosing Weight 90.909, kg, Start date: 02/26/16 6:00:00 ENVIRONMENTAL ADVISER, Stop date: 03/27/16 4:00:00 CSTNotes: (Same as Nimodipine oral suspension 30mg/ml) Instill dose into NG tube and then flush with 30ml of NS Dexamethasone 4 mg, 1 mL, No Longer [place] Route: IV, Drug Active 2016 Medical form: INJ, Q6H, Center Dosing Weight 90.909, kg, Start date: 02/26/16 6:00:00 ENVIRONMENTAL ADVISER, Duration: 30 day, Stop date: 03/27/16 0:00:00 CSTNotes: Concentration: 4mg/ml Keppra 500 mg, Route: Inactive [place] IV, ONCE, Dosing 2017 Medical Weight 90.909, Center kg, Start date: 02/26/16 5:39:00 ENVIRONMENTAL ADVISER, Stop date: 02/26/16 5:39:00 ENVIRONMENTAL ADVISER Ondansetron 4 mg, Route: Inactive [place] IVP, Drug form: 2017 Medical INJ, ONCE, Center Dosing Weight 90.909, kg, Priority: STAT, Start date: 02/26/16 5:31:00 ENVIRONMENTAL ADVISER, Stop date: 02/26/16 5:31:00 ENVIRONMENTAL ADVISER Morphine 4 mg, Route: Inactive [place] IVP, ONCE, 2017 Medical Dosing Weight Center 90.909, kg, Priority: STAT, Start date: 02/26/16 5:31:00 ENVIRONMENTAL ADVISER, Stop date: 02/26/16 5:31:00 ENVIRONMENTAL ADVISER Dextrose 50% 6.25 gm, 12.5 Inactive [place] Syringe mL, Route: IVP, 2017 Medical Drug Form: INJ, Center Dosing Weight 90.909, kg, PRN, PRN Abnormal Lab Result, Start date: 02/26/16 4:09:00 ENVIRONMENTAL ADVISER, Duration: 30 day, Stop date: 03/27/16 4:08:00 ENVIRONMENTAL ADVISER Regular Insulin, 3 unit, 0.03 mL, Inactive [place] Human 100 UNT/ML Route: SUB-Q, 2017 Medical Injectable Drug form: SOLN, Center Solution PRN, Dosing Weight 90.909, kg, PRN Abnormal Lab Result, Start date: 02/26/16 4:09:00 ENVIRONMENTAL ADVISER, Duration: 30 day, Stop date: 03/27/16 4:08:00 [...] Total Volume: 1,000, Start date: 02/26/16 4:09:00 ENVIRONMENTAL ADVISER, Duration: 30 day, Stop date: 03/27/16 4:08:00 ENVIRONMENTAL ADVISER iodixanol 100 mL, Route: Inactive [place] IVP, Drug Form: 2016 Medical SOLN, Dosing Center Weight 90.909, kg, ONCALL, STAT, Start date: 02/26/16 3:43:00 ENVIRONMENTAL ADVISER, Duration: 1 doses or times, Dose=2.2ml/kg, Max ephc=[id number] -- "To be infused by Radiology Staff ONLY" Saline Flush 10 mL, Route: No Longer [place] 0.9% IVP, Drug Form: Active 2016 Medical INJ, Dosing Center Weight 90.909, kg, PRN, PRN Line Flush, Start date: 02/26/16 2:46:00 ENVIRONMENTAL ADVISER, Duration: 30 day, Stop date: 03/27/16 2:45:00 CSTNotes: Same as: BD Posiflush Sterile Allergies, Adverse Reactions, Alerts Substance Category Reaction Severity Reaction Status Date Comments Source type Reported Immunizations Immunization Date Given Site Status Last Comments Source Updated pneumococcal 06/20/2016 Not Given [facility] 23-valent vaccine [facility] pneumococcal 06/20/2016 Not Given [facility] 23-valent Medical vaccine<sup>1</villar Center p> pneumococcal 03/03/2016 Right completed [facility] 13-valent vaccine Deltoid [facility] Results Order Name Results Value Reference Date Interpretation Comments Source Range CHEM PANEL Phosphorus 5.0 mg/dL 2.5 - 4.5 08/[address] CHEM PANEL Magnesium Lvl 2.1 mg/dL 1.8 - 2.4 08/[address] CHEM PANEL eGFR 76 08/26 Result Comment: The eGFR is calculated using the CKD-EPI formula. In most young, healthy individuals the eGFR will be >90 mL/ min/1.73m2. The eGFR declines with age. An eGFR of 60-89 may be normal in [facility] mL/min/1. some populations, particularly the elderly, for whom the CKD-EPI formula has not been extensively validated. Use of the eGFR is not recommended in the following populations: [address] Individuals with unstable creatinine concentrations, including [...] PANEL Creatinine 0.81 mg/dL 0.50 - 08/26 [facility] Lvl 1. [facility] CHEM PANEL Glucose Lvl 132 mg/dL 70 - 99 08/[address] CHEM PANEL Sodium Lvl 140 meq/L 135 - 145 08/[address] CHEM PANEL Potassium Lvl 4.6 meq/L 3.5 - 5.1 08/[address] CHEM PANEL BUN 19 mg/dL 7 - 22 08/[address] CHEM PANEL CO2 25 meq/L 24 - 32 08/[address] CHEM PANEL Calcium Lvl 9.2 mg/dL 8.5 - 10.5 08/[address] CHEM PANEL Chloride Lvl 104 meq/L 95 - 109 08/[address] CHEM PANEL AGAP 15.6 meq/L 10.0 - 08/26 [facility] . [facility] HEMATOLOGY Monocytes 7.2 % 2.0 - 12.0 08/[address] HEMATOLOGY Segs 51.4 % 45.0 - 08/26 [facility] 75.0 [facility] HEMATOLOGY Lymphocytes 38.6 % 20.0 - 08/26 [facility] [place] 40.0 [facility] HEMATOLOGY Lymphocytes # 3.2 K/CMM 1.0 - 5.5 08/26 [facility]2017 [facility] HEMATOLOGY Eosinophils 1.9 % 0.0 - 4.0 08/[address] HEMATOLOGY Basophils 0.9 % 0.0 - 1.0 08/[address] HEMATOLOGY Neutrophils # 4.2 K/CMM 1.5 - 8.1 08/[address] HEMATOLOGY Eosinophils # 0.2 K/CMM 0.0 - 0.5 08/[address] HEMATOLOGY Basophils # 0.1 K/CMM 0.0 - 0.2 08/[address] HEMATOLOGY Monocytes # 0.6 K/CMM 0.0 - 0.8 08/[address] HEMATOLOGY WBC 8.2 K/CMM 3.7 - 10.4 08/26 [facility]2017 [facility] HEMATOLOGY Hct 38.7 % 36.0 - 08/26 48.0 [facility] HEMATOLOGY RBC 4.18 M/CMM 4.20 - 08/26 [place] 5.40 [facility] HEMATOLOGY Hgb 13.1 g/dL 12.0 - 08/26 16.0 [facility] HEMATOLOGY MPV 9.1 fL 7.4 - 10.4 08/26 [facility]2017 [facility] HEMATOLOGY RDW 13.1 % 11.5 - 08/26 [place] 14.5 [facility] HEMATOLOGY Platelet 230 K/CMM 133 - 450 08/26 2017 [facility] HEMATOLOGY MCH 31.4 pg 27.0 - 08/26 [place] 31.0 [facility] HEMATOLOGY MCHC 33.9 g/dL 32.0 - 08/26 [facility] 36.0 [facility] HEMATOLOGY MCV 92.4 fL 80.0 - 08/26 [place] 98.0 [facility] PARATHYROID Ca Ion WB 1.11 1. - 08/26 [facility] PROFILE mMol/L 1. [facility] PARATHYROID Ca Norm WB 1.11 1. - 08/26 [facility] PROFILE mMol/L 1. [facility] Brain wo Brain wo EXAM: MRI BRAIN WITHOUT CONTRAST 08/25 - [facility] contrast contrast /2017 - Medical MRI This report was dictated by a Dietary Worker/Fellow. I have personally reviewed the images as Center well as the Resident's interpretation and agree with the findings. DATE: 08/24/2017 549 PM CDT Read by: Lazaro Newell MD Resident: Lazaro Newell MD Dictated Date/time: [...] agreement with previous preliminary report made by electronic heat seal operator vice president payment. LIPIDS VLDL 22 08/24 [facility] /[address] [place] [address] LIPIDS LDL 67 mg/dL <=99 mg/dL 08/24 [facility] (Calculated) /[address] [place] [address] LIPIDS HDL 30 mg/dL >=61 mg/dL 08/[address] LIPIDS Chol 119 mg/dL <=199 08/24 [facility] mg/dL [address] LIPIDS Trig 112 mg/dL <=149 08/24 [facility] mg/dL [address] [place] [address] LIPIDS CHD Risk 3.97 3.90 - 08/24 [facility] 5.80 /2017 [facility] SPECIAL Hgb A1C 8.1 % <=5.6 % 08/24 [facility] CHEMISTRY /[address] [place] [address] URINE AND UA RBC None Seen 0 - 2 08/24 [facility] STOOL /[address] [place] [address] (08/24/17 3:04 PM) [place] URINE AND UA WBC None Seen None Seen 08/[address] (08/24/17 3:04 PM) Center URINE AND UA Sq Epi Rare /LPF Few /LPF 08/24 [facility] [address] [place] [address] URINE AND UA 0.2 EU/dL 0.1 - 1.0 08/24 [facility] Urobilinogen /2017 [facility] URINE AND UA Blood Negative Negative 08/24 [facility] (08/24/17 3:04 PM) [place] URINE AND UA Nitrite Negative Negative 08/24 [facility] (08/24/17 3:04 PM) [place] URINE AND UA Leuk Est Negative Negative 08/24 [facility] (08/24/17 3:04 PM) [place] URINE AND UA Bili Negative Negative 08/24 [facility] Medical *NA* [place] (08/24/17 3:04 PM) URINE AND UA Ketones Negative Negative 08/24 [facility] mg/dL mg/dL [facility] URINE AND UA Protein Negative Negative 08/24 [facility] mg/dL mg/dL /2017 [facility] URINE AND UA Glucose Negative Negative 08/24 [facility] mg/dL mg/dL [facility] URINE AND UA pH 6.0 5.0 - 8.0 08/[address] URINE AND UA Spec Grav 1.010 <=1.030 08/[address] URINE AND UA Turbidity Clear Clear 08/24 [facility] (08/24/17 3:04 PM) [place] URINE AND UA Color Yellow Yellow 08/24 [facility] [address] [place] [address] *NA* [place] (08/24/17 3:04 PM) CARDIAC Troponin-I null 0.00 - 08/24 [facility] ENZYMES 0.40 [facility] CARDIAC Total CK 88 unit/L 12 - 191 08/24 [facility] ENZYMES [facility] ELECTROLYTE AGAP 15.5 meq/L 10.0 - 07 [facility] S 20.0 [facility] ELECTROLYTE CO2 23 meq/L 24 - 32 08/[address] ELECTROLYTE Calcium Lvl 9.0 mg/dL 8.5 - 10.5 08/[address] ELECTROLYTE Chloride Lvl 105 meq/L 95 - 109 08/[address] ELECTROLYTE eGFR 77 08/24 Result Comment: The eGFR is calculated using the CKD-EPI formula. In most young, healthy individuals the eGFR will be >90 mL/ min/1.73m2. The eGFR declines with age. An eGFR of 60-89 may be normal in [facility] mL/min/1.7 some populations, particularly the elderly, for whom the CKD-EPI formula has not been extensively validated. Use of the eGFR is not recommended in the following populations: [address] Individuals with unstable creatinine concentrations, including [...] 4.5 meq/L 3.5 - 5.1 08/24 Result [facility] Comment: [facility] Slightly Hemolyzed. ELECTROLYTE Sodium Lvl 139 meq/L 135 - 145 08/[address] ELECTROLYTE BUN 15 mg/dL 7 - 22 08/[address] ELECTROLYTE Creatinine 0.80 mg/dL 0.50 - 08/24 [facility] Lvl 1.40 [facility] ELECTROLYTE Glucose Lvl 92 mg/dL 70 - 99 08/[address] HEMATOLOGY Monocytes # 0.7 K/CMM 0.0 - 0.8 08/[address] HEMATOLOGY Basophils 0.7 % 0.0 - 1.0 08/[address] HEMATOLOGY Neutrophils # 7.1 K/CMM 1.5 - 8.1 08/[address] HEMATOLOGY Eosinophils # 0.1 K/CMM 0.0 - 0.5 08/[address] HEMATOLOGY Basophils # 0.1 K/CMM 0.0 - 0.2 08/[address] HEMATOLOGY Lymphocytes # 4.4 K/CMM 1.0 - 5.5 08/[address] HEMATOLOGY Segs 57.1 % 45.0 - 08/24 [facility] 75.0 [facility] HEMATOLOGY Lymphocytes 35.6 % 20.0 - 07 [facility] 40.0 [facility] HEMATOLOGY Monocytes 5.6 % 2.0 - 12.0 08/[address] HEMATOLOGY Eosinophils 1.0 % 0.0 - 4.0 08/24 [facility] HEMATOLOGY PT 13.2 s 12.0 - 08/24 [place] 14.7 [facility] HEMATOLOGY INR 1.00 0.85 - 08/24 [place] 1.17 [facility] HEMATOLOGY MPV 8.0 fL 7.4 - 10.4 08/24 [facility] HEMATOLOGY MCHC 33.4 g/dL 32.0 - 08/24 [place] 36.0 [facility] HEMATOLOGY RDW 13.3 % 11.5 - 08/24 [place] 14.5 [facility] HEMATOLOGY MCH 31.0 pg 27.0 - 08/24 [facility] 31.0 [facility] HEMATOLOGY Platelet 269 K/CMM 133 - 450 08/24 [facility] HEMATOLOGY Hct 40.1 % 36.0 - 08/24 [facility] 48.0 [facility] HEMATOLOGY Hgb 13.4 g/dL 12.0 - 08/24 [facility] 16.0 [facility] HEMATOLOGY MCV 92.8 fL 80.0 - 08/24 [facility] 98.0 [facility] HEMATOLOGY WBC 12.4 K/CMM 3.7 - 10.4 08/24 [facility] HEMATOLOGY RBC 4.32 M/CMM 4.20 - 08/24 [facility] 5.40 /2017 [facility] HEMATOLOGY PTT 25.6 s 22.9 - 08/24 [facility] 35.8 /2017 [facility] Chest 1view Chest 1view EXAM: XR CHEST 1 VIEW 08/24 - [facility] DX DX /2017 - [facility] DATE: 08/24/2017 at 1446 hours Read by: [...] Brain Stroke EXAM: CT BRAIN 08/24 - [facility] Stroke wo wo contrast /2018 - Medical contrast CT CT This report was dictated by a Dietary Worker/ Fellow. 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 The vertebral arteries are patent from [...] is not recommended in the following populations: [address] Center Individuals with unstable creatinine concentrations, [...] AGAP 15.2 meq/L 10.0 - 06/20 20.0 [facility] CHEM PANEL Calcium Lvl 8.7 mg/dL 8.5 - 10.5 06/20 [facility] CHEM PANEL Creatinine 0.71 mg/dL 0.50 - 06/20 [facility] Lvl 1.40 [facility] CHEM PANEL Potassium Lvl 4.2 meq/L 3.5 - 5.1 06/20 [facility] CHEM PANEL Sodium Lvl 138 meq/L 135 - 145 06/20 [facility] CHEM PANEL CO2 25 meq/L 24 - 32 06/20 2016 [facility] CHEM PANEL Chloride Lvl 102 meq/L 95 - 109 06/[address] [place] [address] CHEM PANEL Glucose Lvl 161 mg/dL 70 - 99 06/[address] CHEM PANEL BUN 13 mg/dL 7 - 22 06/[address] [place] [address] CHEM PANEL Magnesium Lvl 2.1 mg/dL 1.8 - 2.4 06/20 [facility] CHEM PANEL Phosphorus 3.3 mg/dL 2.5 - 4.5 06/20 [facility] HEMATOLOGY RBC 4.34 M/CMM 4.20 - 06/20 5.40 [facility] HEMATOLOGY WBC 9.5 K/CMM 3.7 - 10.4 06/20 [facility] HEMATOLOGY Hgb 13.4 g/dL 12.0 - 06/20 16.0 [facility] HEMATOLOGY MCHC 33.8 g/dL 32.0 - 06/20 36.0 [facility] HEMATOLOGY MCH 30.8 pg 27.0 - 06/20 31.0 [facility] HEMATOLOGY RDW 13.2 % 11.5 - 06/20 14.5 [facility] HEMATOLOGY MCV 91.0 fL 80.0 - 06/20 98.0 [facility] HEMATOLOGY Hct 39.5 % 36.0 - 06/20 48.0 [facility] HEMATOLOGY Platelet 248 K/CMM 133 - 450 06/20 [facility] HEMATOLOGY MPV 8.0 fL 7.4 - 10.4 06/20 [facility] HEMATOLOGY Segs 77.7 % 45.0 - 06/20 [place] 75.0 [facility] HEMATOLOGY Lymphocytes 19.0 % 20.0 - 06/20 40.0 [facility] HEMATOLOGY Monocytes # 0.3 K/CMM 0.0 - 0.8 06/20 [facility] HEMATOLOGY Lymphocytes # 1.8 K/CMM 1.0 - 5.5 06/20 [facility] HEMATOLOGY Monocytes 3.1 % 2.0 - 12.0 06/20 [facility] HEMATOLOGY Basophils 0.2 % 0.0 - 1.0 06/20 [facility] HEMATOLOGY Segs-Bands # 7.4 K/CMM 1.5 - 8.1 06/20 [facility] PARATHYROID Ca Norm WB 1.10 1.05 - 06/20 [facility] PROFILE mMol/L 1. [facility] PARATHYROID Ca Ion WB 1.10 1.06/20 [facility] PROFILE mMol/L 1. [facility] BACTERIAL - MRSA by PCR Negative 06/19 [facility] SEROLOGY [facility] (06/19/16 3:52 PM) [place] HEMATOLOGY PTT 27.8 s 22.9 - 06/19 [place] 35.8 /2016 [facility] HEMATOLOGY PT 14.0 s 12.0 - 06/19 [facility] 14.7 [facility] HEMATOLOGY INR 1.06 0.85 - 06/19 [facility] 1.17 [facility] HEMATOLOGY Plav Effect 268 PRU 06/19 [facility] Plt [facility] HEMATOLOGY ASA Effect 431 ARU 06/19 [facility] Plt [facility] HEMATOLOGY Plav Effect see note 06/19 Result [facility] Plt Comment: [facility] asked [place] for results to be removed,06/19 08:45 HEMATOLOGY ASA Effect see note 06/19 Result [facility] Comment: [facility] asked [place] to remove results,06/19 08:45 ELECTROLYTE Potassium Lvl 4.2 meq/L 3.5 - 5.1 06/19 [facility] S [facility] ELECTROLYTE Creatinine 0.61 mg/dL 0.50 - 06/19 [facility] S Lvl 1.40 [facility] ELECTROLYTE Sodium Lvl 139 meq/L 135 - 145 06/19 [facility] ELECTROLYTE eGFR 95 06/19 Result Comment: The eGFR is calculated using the CKD-EPI formula. In most young, healthy individuals the eGFR will be >90 mL/ min/1.73m2. The eGFR declines with age. An eGFR of 60-89 may be normal in [facility] mL/min/1. some populations, particularly the elderly, for whom the CKD-EPI formula has not been extensively validated. Use of the eGFR is not recommended in the following populations: [address] Individuals with unstable creatinine concentrations, including [...] Lvl 103 meq/L 95 - 109 06/19 [facility] [address] [place] [address] ELECTROLYTE CO2 26 meq/L 24 - 32 06/19 [facility]2016 [facility] ELECTROLYTE Calcium Lvl 9.2 mg/dL 8.5 - 10.5 06/[address] ELECTROLYTE AGAP 14.2 meq/L 10.0 - 06/19 [facility] 20.0 [facility] ELECTROLYTE BUN 20 mg/dL 7 - 22 06/[address] ELECTROLYTE Glucose Lvl 123 mg/dL 70 - 99 06/[address] HEMATOLOGY Platelet 249 K/CMM 133 - 450 06/[address] HEMATOLOGY RDW 12.3 % 11.5 - 06/19 [facility] 14.5 [facility] HEMATOLOGY MCHC 33.1 g/dL 32.0 - 06/19 [facility] 36.0 [facility] HEMATOLOGY MPV 7.9 fL 7.4 - 10.4 06/[address] HEMATOLOGY Hct 40.4 % 36.0 - 06/19 [facility] 48.0 [facility] HEMATOLOGY Hgb 13.4 g/dL 12.0 - 06/19 [facility] 16.0 [facility] HEMATOLOGY WBC 10.0 K/CMM 3.7 - 10.4 06/[address] HEMATOLOGY RBC 4.43 M/CMM 4.20 - 06/19 [facility] [place] 5.40 /2016 [facility] HEMATOLOGY MCV 91.1 fL 80.0 - 06/19 [place] 98.0 [facility] HEMATOLOGY MCH 30.2 pg 27.0 - 06/19 [place] 31.0 [facility] HEMATOLOGY Eosinophils # 0.1 K/CMM 0.0 - 0.5 06/19 2016 [facility] HEMATOLOGY Basophils # 0.0 K/CMM 0.0 - 0.2 06/19 [facility] HEMATOLOGY Basophils 0.0 % 0.0 - 1.0 06/19 [facility] HEMATOLOGY Eosinophils 1.2 % 0.0 - 4.0 06/19 [facility]2016 [facility] HEMATOLOGY Monocytes # 0.4 K/CMM 0.0 - 0.8 06/19 [facility]2016 [facility] HEMATOLOGY Lymphocytes # 4.7 K/CMM 1.0 - 5.5 06/19 2016 [facility] HEMATOLOGY Segs-Bands # 4.8 K/CMM 1.5 - 8.1 06/19 [facility]2016 [facility] HEMATOLOGY Segs 47.6 % 45.0 - 06/19 [facility] 75.0 [facility] HEMATOLOGY Lymphocytes 46.9 % 20.0 - 06/19 [facility] 40.0 [facility] HEMATOLOGY Monocytes 4.3 % 2.0 - 12.0 06/19 [facility]2016 [facility] Angiogram Angiogram PROCEDURE: 06/19 - [facility] [place] [place] cervical /2016 - Medical artery artery 1. Diagnostic Cerebral Angiogram: This report was dictated by a Dietary Worker/Fellow. I have personally reviewed the images as [...] single wall micropuncture technique and a 6 [place] sheath was placed. A 5 [place] Vert catheter was coaxially advanced with a [...] embolization. And a magnified roadmap , a 6-[place] envoy DA guide catheter was telescoped over a long 5-[place] Vert catheter and positioned over the left [...] was selected and 4 x 6 mm [place] coil was deployed to est ablish [...] UA Mucus Few /LPF None Seen 03/23 [facility] STOOL /LPF /2016 [facility] URINE AND UA WBC 1 /HPF 0 - 5 03/[address] URINE AND UA RBC null 0 - 2 03/23 [facility] [address] [place] [address] URINE AND UA Bacteria Occasional None Seen 03/23 [facility] STOOL /HPF /HPF /2016 [facility] URINE AND UA <=1.0 0.1 - 1.0 03/23 [facility] Urobilinogen mg/dL [facility] URINE AND UA Turbidity Clear Clear 03/23 [facility] [address] [place] [address] (03/23/16 4:55 PM) [place] URINE AND UA Spec Grav 1.011 <=1.030 03/23 [facility] [address] [place] [address] URINE AND UA pH 6.0 5.0 - 8.0 03/[address] URINE AND UA Protein Negative Negative 03/23 [facility] mg/dL mg/dL [address] [place] [address] URINE AND UA Color Yellow Yellow 03/23 [facility] [address] [place] [address] *NA* [place] (03/23/16 4:55 PM) URINE AND UA Sq Epi Few /LPF Few /LPF 03/[address] URINE AND UA Glucose Negative Negative 03/23 [facility] mg/dL mg/dL /2016 [facility] URINE AND UA Ketones Negative Negative 03/23 [facility] mg/dL mg/dL [address] [place] [address] URINE AND UA Bili Negative Negative 03/23 [facility] [address] [place] [address] *NA* [place] (03/23/16 4:55 PM) URINE AND UA Blood Negative Negative 03/23 [facility] [address] [place] [address] (03/23/16 4:55 PM) [place] URINE AND UA Nitrite Negative Negative 03/23 [facility] (03/23/16 4:55 PM) [place] URINE AND UA Leuk Est Negative Negative 03/23 [facility] (03/23/16 4:55 PM) [place] CHEM PANEL B/C Ratio 21 6 - 25 03/[address] CHEM PANEL AGAP 15.2 meq/L 10.0 - 03/22 [facility] 20.0 [facility] CHEM PANEL Globulin 4.0 g/dL 2.7 - 4.2 03/[address] CHEM PANEL A/G Ratio 0.8 0.7 - 1.6 03/[address] CHEM PANEL eGFR 76 03/22 Result Comment: The eGFR is calculated using the CKD-EPI formula. In most young, healthy individuals the eGFR will be >90 mL/ min/1.73m2. The eGFR declines with age. An eGFR of 60-89 may be normal in [facility] mL/min/1.7 some populations, particularly the elderly, for whom the CKD-EPI formula has not been extensively validated. Use of the eGFR is not recommended in the following populations: [address] Individuals with unstable creatinine concentrations, including [...] Total 0.3 mg/dL 0.2 - 1.3 03/[address] CHEM PANEL CO2 28 meq/L 24 - 32 03/[address] CHEM PANEL Calcium Lvl 9.2 mg/dL 8.5 - 10.5 03/[address] CHEM PANEL Albumin Lvl 3.1 g/dL 3.5 - 5.0 03/[address] CHEM PANEL Potassium Lvl 4.2 meq/L 3.5 - 5.1 03/[address] CHEM PANEL Chloride Lvl 97 meq/L 95 - 109 03/[address] CHEM PANEL Total Protein 7.1 g/dL 6.4 - 8.4 03/[address] CHEM PANEL AST 34 unit/L 0 - 37 03/[address] CHEM PANEL ALT 59 unit/L 0 - 65 03/[address] CHEM PANEL Alk Phos 86 unit/L 39 - 136 03/22 [facility] CHEM PANEL Glucose Lvl 194 mg/dL 70 - 99 03/22 [facility] CHEM PANEL Sodium Lvl 136 meq/L 135 - 145 03/22 [facility] CHEM PANEL BUN 17 mg/dL 7 - 22 03/[address] [place] [address] CHEM PANEL Creatinine 0.82 mg/dL 0.50 - 03/22 [facility] Lvl 1.40 /2016 [facility] HEMATOLOGY Segs-Bands # 4.2 K/CMM 1.5 - 8.1 03/22 [facility] HEMATOLOGY Lymphocytes # 2.5 K/CMM 1.0 - 5.5 03/22 [facility] HEMATOLOGY Basophils 0.6 % 0.0 - 1.0 03/22 [facility] HEMATOLOGY Eosinophils 2.1 % 0.0 - 4.0 03/[address] [place] [address] HEMATOLOGY Monocytes # 0.6 K/CMM 0.0 - 0.8 03/[address] [place] [address] HEMATOLOGY Eosinophils # 0.2 K/CMM 0.0 - 0.5 03/[address] [place] [address] HEMATOLOGY Monocytes 7.5 % 2.0 - 12.0 03/[address] [place] [address] HEMATOLOGY Segs 56.8 % 45.0 - 03/22 75.0 [facility] HEMATOLOGY Lymphocytes 33.0 % 20.0 - 03/22 40.0 [facility] HEMATOLOGY MCH 32.0 pg 27.0 - 03/22 31.0 [facility] HEMATOLOGY MCHC 33.7 g/dL 32.0 - 03/22 36.0 [facility] HEMATOLOGY MPV 7.4 fL 7.4 - 10.4 03/22 [facility] HEMATOLOGY RDW 14.3 % 11.5 - 03/22 14.5 [facility] HEMATOLOGY Platelet 202 K/CMM 133 - 450 03/22 [facility] HEMATOLOGY MCV 95.0 fL 80.0 - 03/22 98.0 [facility] HEMATOLOGY Hct 36.1 % 36.0 - 03/22 48.0 [facility] HEMATOLOGY Hgb 12.2 g/dL 12.0 - 03/22 [facility] 16.0 [facility] HEMATOLOGY RBC 3.80 M/CMM 4.20 - 02 [facility] 5.40 /2016 [facility] HEMATOLOGY WBC 7.5 K/CMM 3.7 - 10.4 03/22 [facility] CHEM PANEL B/C Ratio 25 6 - 25 03/[address] CHEM PANEL AGAP 15.1 meq/L 10.0 - 02 [facility] 20.0 [facility] CHEM PANEL Globulin 4.6 g/dL 2.7 - 4.2 03/[address] CHEM PANEL A/G Ratio 0.7 0.7 - 1.6 03/[address] CHEM PANEL Alk Phos 86 unit/L 39 - 136 03/[address] CHEM PANEL Bili Total 0.4 mg/dL 0.2 - 1.3 03/[address] CHEM PANEL eGFR 93 03/20 Result Comment: The eGFR is calculated using the CKD-EPI formula. In most young, healthy individuals the eGFR will be >90 mL/ min/1.73m2. The eGFR declines with age. An eGFR of 60-89 may be normal in [facility] mL/min/1.7 some populations, particularly the elderly, for whom the CKD-EPI formula has not been extensively validated. Use of the eGFR is not recommended in the following populations: [address] Individuals with unstable creatinine concentrations, including [...] ALT 74 unit/L 0 - 65 03/20 [facility] [address] [place] [address] CHEM PANEL AST 32 unit/L 0 - 37 03/[address] CHEM PANEL Albumin Lvl 3.4 g/dL 3.5 - 5.0 03/[address] CHEM PANEL Total Protein 8.0 g/dL 6.4 - 8.4 03/[address] CHEM PANEL Chloride Lvl 98 meq/L 95 - 109 03/[address] CHEM PANEL CO2 27 meq/L 24 - 32 03/[address] [place] [address] CHEM PANEL Calcium Lvl 9.6 mg/dL 8.5 - 10.[address] CHEM PANEL Creatinine 0.68 mg/dL 0.50 - 02 [facility] Lvl 1.40 [facility] CHEM PANEL Sodium Lvl 136 meq/L 135 - [address] CHEM PANEL Potassium Lvl 4.1 meq/L 3.5 - 5.1 03/[address] CHEM PANEL Glucose Lvl 197 mg/dL 70 - [address] CHEM PANEL BUN 17 mg/dL 7 - 22 03/[address] HEMATOLOGY Monocytes 6.1 % 2.0 - 12.0 03/[address] HEMATOLOGY Eosinophils 2.1 % 0.0 - 4.0 03/[address] HEMATOLOGY Lymphocytes 28.0 % 20.0 - 03/20 [facility] 40.0 [facility] HEMATOLOGY Eosinophils # 0.2 K/CMM 0.0 - 0.5 03/20 [facility] [address] [place] [address] HEMATOLOGY Basophils # 0.1 K/CMM 0.0 - 0.[address] HEMATOLOGY Segs 63.1 % 45.0 - 02 [facility] 75.0 [facility] HEMATOLOGY Lymphocytes # 2.4 K/CMM 1.0 - 5.5 03/[address] HEMATOLOGY Monocytes # 0.5 K/CMM 0.0 - 0.[address] HEMATOLOGY Basophils 0.7 % 0.0 - 1.0 03/20 [facility] [address] [place] [address] HEMATOLOGY Segs-Bands # 5.3 K/CMM 1.5 - 8.1 02 [facility] [address] [place] [address] HEMATOLOGY Platelet 259 K/CMM 133 - [address] HEMATOLOGY MPV 8.4 fL 7.4 - 10.4 03/[address] HEMATOLOGY MCV 94.9 fL 80.0 - 03/20 [facility] 98.0 [facility] HEMATOLOGY Hct 37.1 % 36.0 - 02 [facility] 48.0 [facility] HEMATOLOGY Hgb 12.6 g/dL 12.0 - 02 [facility] 16.0 [facility] HEMATOLOGY WBC 8.5 K/CMM 3.7 - 10.4 03/20 [facility] HEMATOLOGY RBC 3.90 M/CMM 4.20 - 03/20 [facility] 5.40 [facility] HEMATOLOGY RDW 14.4 % 11.5 - 03/20 [facility] 14.5 [facility] HEMATOLOGY MCH 32.2 pg 27.0 - 03/20 [facility] 31.0 [facility] HEMATOLOGY MCHC 33.9 g/dL 32.0 - 03/20 [facility] 36.0 [facility] CHEM PANEL eGFR 93 03/18 Result Comment: The eGFR is calculated using the CKD-EPI formula. In most young, healthy individuals the eGFR will be >90 mL/ min/1.73m2. The eGFR declines with age. An eGFR of 60-89 may be normal in [facility] mL/min/1. some populations, particularly the elderly, for whom the CKD-EPI formula has not been extensively validated. Use of the eGFR is not recommended in the following populations: [address] Individuals with unstable creatinine concentrations, including [...] Lvl 198 mg/dL 70 - 99 03/[address] [place] [address] CHEM PANEL BUN 18 mg/dL 7 - 22 03/18 [facility] [address] [place] [address] CHEM PANEL Alk Phos 78 unit/L 39 - 136 03/18 [facility] CHEM PANEL AST 35 unit/L 0 - 37 03/[address] CHEM PANEL ALT 74 unit/L 0 - 65 03/[address] CHEM PANEL Creatinine 0.67 mg/dL 0.50 - 02 [facility] Lvl 1.40 [facility] CHEM PANEL Chloride Lvl 99 meq/L 95 - 109 03/[address] CHEM PANEL Potassium Lvl 3.9 meq/L 3.5 - 5.1 03/18 [facility] CHEM PANEL Sodium Lvl 136 meq/L 135 - 145 03/18 [facility] /[address] [place] [address] CHEM PANEL Total Protein 7.2 g/dL 6.4 - 8.4 03/[address] CHEM PANEL Calcium Lvl 9.1 mg/dL 8.5 - 10.5 03/[address] CHEM PANEL CO2 27 meq/L 24 - 32 03/[address] CHEM PANEL Albumin Lvl 3.1 g/dL 3.5 - 5.0 03/[address] CHEM PANEL Bili Total 0.3 mg/dL 0.2 - 1.3 03/[address] CHEM PANEL A/G Ratio 0.8 0.7 - 1.6 03/[address] CHEM PANEL Globulin 4.1 g/dL 2.7 - 4.2 03/[address] CHEM PANEL B/C Ratio 27 6 - 25 03/[address] CHEM PANEL AGAP 13.9 meq/L 10.0 - 02 [facility] 20.0 [facility] HEMATOLOGY Platelet 279 K/CMM 133 - 450 03/18 [facility] [address] [place] [address] HEMATOLOGY MCH 32.4 pg 27.0 - 02 [facility] 31.0 [facility] HEMATOLOGY MPV 8.1 fL 7.4 - 10.4 03/18 [facility] [address] [place] [address] HEMATOLOGY MCHC 33.9 g/dL 32.0 - 02 [facility] 36.0 [facility] HEMATOLOGY RDW 14.3 % 11.5 - 02/ [facility] 14.5 [facility] HEMATOLOGY Hgb 11.8 g/dL 12.0 - 02 16.0 [facility] HEMATOLOGY WBC 8.3 K/CMM 3.7 - 10.4 03/18 [facility] [address] [place] [address] HEMATOLOGY Hct 34.6 % 36.0 - 02/ [facility] 48.0 [facility] HEMATOLOGY MCV 95.3 fL 80.0 - 02 [facility] 98.0 [facility] HEMATOLOGY RBC 3.63 M/CMM 4.20 - 02/ [facility] 5.40 [facility] HEMATOLOGY Eosinophils # 0.2 K/CMM 0.0 - 0.5 02 [facility] [address] [place] [address] HEMATOLOGY Monocytes # 0.5 K/CMM 0.0 - 0.[address] HEMATOLOGY Lymphocytes # 2.6 K/CMM 1.0 - 5.[address] HEMATOLOGY Basophils # 0.1 K/CMM 0.0 - 0.2 03/[address] HEMATOLOGY Basophils 1.0 % 0.0 - 1.0 03/[address] HEMATOLOGY Eosinophils 2.0 % 0.0 - 4.0 03/[address] HEMATOLOGY Monocytes 6.2 % 2.0 - 12.0 03/[address] HEMATOLOGY Segs 59.4 % 45.0 - 02 [place] 75.0 [facility] HEMATOLOGY Lymphocytes 31.4 % 20.0 - 02 [facility] 40.0 [facility] HEMATOLOGY Segs-Bands # 4.9 K/CMM 1.5 - 8.1 03/[address] HEMATOLOGY Basophils # 0.1 K/CMM 0.0 - 0.2 03/[address] URINE AND UA Glucose 100mg/dL 03/[address] URINE AND UA Bacteria Few /HPF None Seen 03/[address] URINE AND UA Mucus Few /LPF None Seen 03/14 [facility] /F [address] URINE AND UA Nitrite Negative Negative 03/[address] (03/14/16 12:37 AM) [place] URINE AND UA Bili Negative Negative 03/[address] *NA* [place] (03/14/16 12:37 AM) URINE AND UA Blood Negative Negative 03/[address] (03/14/16 12:37 AM) [place] URINE AND UA 4.0 mg/dL 0.1 - 1.0 03/14 [facility] Urobilinogen [address] URINE AND UA RBC 1 /HPF 0 - 2 03/[address] URINE AND UA WBC null 0 - 5 03/[address] URINE AND UA Sq Epi Occasional Few /LPF 03/14 [facility] /LPF [address] [place] [address] URINE AND UA Leuk Est Large Negative 03/[address] *ABN* [facility] (03/14/16 12:37 AM) URINE AND UA Color Yellow Yellow 03/14 [facility] *NA* [facility] (03/14/16 12:37 AM) URINE AND UA Protein Negative Negative 03/14 [facility] mg/dL mg/dL [facility] URINE AND UA Ketones Negative Negative 03/14 [facility] mg/dL mg/dL [facility] URINE AND UA Turbidity Slight Clear 03/14 [facility] *ABN* [facility] (03/14/16 12:37 AM) URINE AND UA Spec Grav 1.016 <=1.030 03/14 [facility] URINE AND UA pH 5.5 5.0 - 8.0 03/14 [facility]2016 [facility] CHEM PANEL Phosphorus 4.1 mg/dL 2.5 - 4.5 03/12 [facility]2016 [facility] CHEM PANEL Magnesium Lvl 2.4 mg/dL 1.8 - 2.4 03/[address] IMMUNOLOGY Prealbumin 27.4 mg/dL 18.0 - 03/12 [facility] 45.0 [facility] CHEM PANEL Phosphorus 4.0 mg/dL 2.5 - 4.5 03/[address] CHEM PANEL Magnesium Lvl 2.4 mg/dL 1.8 - 2.4 03/[address] ELECTROLYTE AGAP 14.1 meq/L 10.0 - 03/11 [facility] 20. [facility] ELECTROLYTE eGFR 97 03/11 Result Comment: The eGFR is calculated using the CKD-EPI formula. In most young, healthy individuals the eGFR will be >90 mL/ min/1.73m2. The eGFR declines with age. An eGFR of 60-89 may be normal in [facility] mL/min/1.7 some populations, particularly the elderly, for whom the CKD-EPI formula has not been extensively validated. Use of the eGFR is not recommended in the following populations: [address] Individuals with unstable creatinine concentrations, including [...] ELECTROLYTE BUN 20 mg/dL 7 - 03/11 [facility] /2016 [facility] ELECTROLYTE Creatinine 0.59 mg/dL 0.50 - 03/11 [facility] S Lvl 1. [facility] ELECTROLYTE Sodium Lvl 137 meq/L 135 - 145 03/[address] ELECTROLYTE Potassium Lvl 4.1 meq/L 3.5 - 5.1 03/[address] ELECTROLYTE CO2 23 meq/L 24 - 32 03/[address] ELECTROLYTE Chloride Lvl 104 meq/L 95 - 109 03/[address] ELECTROLYTE Calcium Lvl 8.6 mg/dL 8.5 - 10.5 03/[address] ELECTROLYTE Glucose Lvl 95 mg/dL 70 - 99 03/[address] HEMATOLOGY Lymphocytes # 3.3 K/CMM 1.0 - 5.5 03/[address] HEMATOLOGY Segs-Bands # 9.6 K/CMM 1.5 - 8.1 03/[address] HEMATOLOGY Segs 67.9 % 45.0 - 03/11 [facility] 75.0 [facility] HEMATOLOGY Lymphocytes 23.3 % 20.0 - 03/11 [facility] 40.0 [facility] HEMATOLOGY Monocytes 6.4 % 2.0 - 12.0 03/[address] HEMATOLOGY Eosinophils 1.4 % 0.0 - 4.0 03/[address] HEMATOLOGY Basophils 1.0 % 0.0 - 1.0 03/[address] HEMATOLOGY Eosinophils # 0.2 K/CMM 0.0 - 0.5 03/[address] HEMATOLOGY Basophils # 0.1 K/CMM 0.0 - 0.2 03/[address] HEMATOLOGY Monocytes # 0.9 K/CMM 0.0 - 0.8 03/[address] HEMATOLOGY MPV 8.3 fL 7.4 - 10.4 03/[address] HEMATOLOGY MCH 32.2 pg 27.0 - 03/11 [facility] 31.0 [facility] HEMATOLOGY MCV 94.2 fL 80.0 - 03/11 [facility] 98.0 [facility] HEMATOLOGY Platelet 359 K/CMM 133 - 450 03/[address] HEMATOLOGY MCHC 34.2 g/dL 32.0 - 03/11 36.0 [facility] HEMATOLOGY RDW 14.3 % 11.5 - 03/11 14. [facility] HEMATOLOGY Hct 33.8 % 36.0 - 03/11 48.0 [facility] HEMATOLOGY WBC 14.1 K/CMM 3.7 - 10.4 03/11 [facility] HEMATOLOGY Hgb 11.5 g/dL 12.0 - 03/11 16.0 [facility] HEMATOLOGY RBC 3.59 M/CMM 4.20 - 03/11 [facility] 5.40 [facility] PARATHYROID Ca Ion WB 1.00 1.05 - 03/11 [facility] PROFILE mMol/L 1. [facility] PARATHYROID Ca Norm WB 1.06 1. - 03/11 [facility] PROFILE mMol/L . [facility] CHEM PANEL Magnesium Lvl 2.8 mg/dL 1.8 - 2.4 03/10 [facility] CHEM PANEL eGFR 98 03/10 Result Comment: The eGFR is calculated using the CKD-EPI formula. In most young, healthy individuals the eGFR will be >90 mL/ min/1.73m2. The eGFR declines with age. An eGFR of 60-89 may be normal in [facility] mL/min/1. some populations, particularly the elderly, for whom the CKD-EPI formula has not been extensively validated. Use of the eGFR is not recommended in the following populations: [address] Individuals with unstable creatinine concentrations, including [...] AGAP 9.6 meq/L 10.0 - 03/10 20. [facility] CHEM PANEL Calcium Lvl 8.8 mg/dL 8.5 - 10.5 03/10 [facility] CHEM PANEL Creatinine 0.58 mg/dL 0.50 - 03/10 [facility] Lvl 1.40 [facility] CHEM PANEL Potassium Lvl 3.6 meq/L 3.5 - 5.1 03/10 [facility] CHEM PANEL Sodium Lvl 135 meq/L 135 - 145 03/[address] CHEM PANEL CO2 29 meq/L 24 - 32 03/10 2016 [facility] CHEM PANEL Chloride Lvl 100 meq/L 95 - 109 03/[address] CHEM PANEL Glucose Lvl 85 mg/dL 70 - 99 03/[address] CHEM PANEL BUN 20 mg/dL 7 - 22 03/[address] CHEM PANEL Phosphorus 4.2 mg/dL 2.5 - 4.5 03/[address] HEMATOLOGY WBC 15.8 K/CMM 3.7 - 10.4 03/10 2016 [facility] HEMATOLOGY RBC 3.55 M/CMM 4.20 - 03/10 [facility] 5.40 [facility] HEMATOLOGY RDW 13.5 % 11.5 - 03/10 [facility] 14. [facility] HEMATOLOGY Platelet 333 K/CMM 133 - 450 03/[address] HEMATOLOGY MPV 8.7 fL 7.4 - 10.4 03/[address] [place] [address] HEMATOLOGY Hgb 11.1 g/dL 12.0 - 03/10 [facility] 16.0 [facility] HEMATOLOGY Hct 33.9 % 36.0 - 03/10 48.0 [facility] HEMATOLOGY MCV 95.6 fL 80.0 - 03/10 [facility] 98.0 [facility] HEMATOLOGY MCH 31.3 pg 27.0 - 03/10 [facility] 31.0 [facility] HEMATOLOGY MCHC 32.7 g/dL 32.0 - 03/10 [facility] 36.0 [facility] HEMATOLOGY Basophils # 0.2 K/CMM 0.0 - 0.2 03/10 [facility] HEMATOLOGY Monocytes # 1.3 K/CMM 0.0 - 0.8 03/[address] [place] [address] HEMATOLOGY Eosinophils # 0.2 K/CMM 0.0 - 0.5 03/[address] HEMATOLOGY Segs-Bands # 10.3 K/CMM 1.5 - 8.1 03/[address] HEMATOLOGY Lymphocytes # 3.9 K/CMM 1.0 - 5.5 03/10 [place] [address] HEMATOLOGY Basophils 1.0 % 0.0 - 1.0 03/10 [facility] HEMATOLOGY Eosinophils 1.1 % 0.0 - 4.0 03/10 [facility] HEMATOLOGY Segs 64.9 % 45.0 - 03/10 [facility] 75.0 [facility] HEMATOLOGY Monocytes 8.2 % 2.0 - 12.0 03/10 [facility] HEMATOLOGY Lymphocytes 24.8 % 20.0 - 03/10 [facility] 40.0 [facility] PARATHYROID Ca Norm WB 1.11 1.05 - 03/10 [facility] PROFILE mMol/L 1. [facility] PARATHYROID Ca Ion WB 1.14 1. - 03/10 [facility] PROFILE mMol/L . [facility] ELECTROLYTE Sodium Lvl 133 meq/L 135 - 145 03/09 [facility] CHEM PANEL Magnesium Lvl 2.3 mg/dL 1.8 - 2.4 03/[address] CHEM PANEL Phosphorus 3.4 mg/dL 2.5 - 4.5 03/09 [facility]2016 [facility] ELECTROLYTE AGAP 14.7 meq/L 10.0 - 03/09 [facility] 20.0 [facility] ELECTROLYTE eGFR 99 03/09 Result Comment: The eGFR is calculated using the CKD-EPI formula. In most young, healthy individuals the eGFR will be >90 mL/ min/1.73m2. The eGFR declines with age. An eGFR of 60-89 may be normal in [facility] mL/min/1. some populations, particularly the elderly, for whom the CKD-EPI formula has not been extensively validated. Use of the eGFR is not recommended in the following populations: [address] Individuals with unstable creatinine concentrations, including [...] BUN 19 mg/dL 7 - 22 03/09 [facility] ELECTROLYTE Creatinine 0.56 mg/dL 0.50 - 03/09 [facility] Lvl 1.40 [facility] ELECTROLYTE Glucose Lvl 130 mg/dL 70 - 99 03/09 [facility] ELECTROLYTE Potassium Lvl 3.7 meq/L 3.5 - 5.1 03/09 [facility] 2016 [facility] ELECTROLYTE Chloride Lvl 100 meq/L 95 - 109 03/09 [facility]2016 [facility] ELECTROLYTE CO2 23 meq/L 24 - 32 03/09 [facility]2016 [facility] ELECTROLYTE Calcium Lvl 8.8 mg/dL 8.5 - 10.5 03/09 [facility]2016 [facility] HEMATOLOGY Segs-Bands # 11.6 K/CMM 1.5 - 8.1 03/[address] HEMATOLOGY Eosinophils 1.1 % 0.0 - 4.0 03/09 2016 [facility] HEMATOLOGY Basophils 1.0 % 0.0 - 1.0 03/09 2016 [facility] HEMATOLOGY Lymphocytes # 3.4 K/CMM 1.0 - 5.5 03/[address] HEMATOLOGY Segs 70.0 % 45.0 - 03/09 75.0 [facility] HEMATOLOGY Monocytes 7.2 % 2.0 - 12.0 03/[address] HEMATOLOGY Lymphocytes 20.7 % 20.0 - 03/09 40.0 [facility] HEMATOLOGY Monocytes # 1.2 K/CMM 0.0 - 0.8 03/09 [facility] HEMATOLOGY Basophils # 0.2 K/CMM 0.0 - 0.2 03/[address] [place] [address] HEMATOLOGY Eosinophils # 0.2 K/CMM 0.0 - 0.5 03/09 [facility] HEMATOLOGY Platelet 330 K/CMM 133 - 450 03/09 2016 [facility] HEMATOLOGY RDW 13.7 % 11.5 - 03/09 14.5 [facility] HEMATOLOGY MPV 8.1 fL 7.4 - 10.4 03/09 [facility] HEMATOLOGY MCH 31.9 pg 27.0 - 03/09 31.0 [facility] HEMATOLOGY Hct 33.3 % 36.0 - 03/09 48.0 [facility] HEMATOLOGY MCV 94.1 fL 80.0 - 03/09 98.0 [facility] HEMATOLOGY MCHC 33.8 g/dL 32.0 - 03/09 [facility] [place] 36.0 /2017 [facility] HEMATOLOGY WBC 16.6 K/CMM 3.7 - 10.4 03/09 /2016 [facility] HEMATOLOGY Hgb 11.3 g/dL 12.0 - 03/09 [place] 16.0 [facility] HEMATOLOGY RBC 3.54 M/CMM 4.20 - 03/09 [facility] 5.40 /2016 [facility] PARATHYROID Ca Norm WB 1.06 1.05 - 03/09 [facility] PROFILE mMol/L 1. [facility] PARATHYROID Ca Ion WB 1.02 1.05 - 03/09 [facility] PROFILE mMol/L 1. [facility] BLOOD BANK ABO/Rh A POS 03/08 [facility] BLOOD BANK Antibody Scrn Negative 03/08 [facility] (03/08/16 12:29 AM) [place] HEMATOLOGY PTT 27.1 s 22.9 - 03/08 [facility] 35.8 [facility] HEMATOLOGY PT 14.3 s 12.0 - 03/08 [facility] 14.7 [facility] HEMATOLOGY INR 1.09 0.85 - 03/08 [facility] 1. [facility] Brain wo Brain wo EXAM: CT BRAIN WITHOUT CONTRAST 03/08 [facility] contrast CT contrast CT /2016 [facility] DATE: 03/08/2016 4:32 AM ENVIRONMENTAL ADVISER Read by: [place] [employer] Dictated Date/time: 03/08/16 [...] Acid 3.2 mMol/L 0.6 - 2.2 03/07 [facility] BODY FLUIDS Glucose CSF 129 mg/dL 45 - 80 03/07 [facility] BODY FLUIDS Monocyte CSF 18 % 15 - 45 03/07 [facility] BODY FLUIDS Segs CSF 55 % 0 - 6 03/07 [facility] BODY FLUIDS Lymph CSF 27 % 40 - 80 03/07 [facility] BODY FLUIDS RBC CSF 52854 /mm3 0 - 03 03/07 [facility] BODY FLUIDS WBC CSF 69 /mm3 0 - 53 03/07 [facility] BODY FLUIDS Color CSF Red Colorless 03/07 [facility] *ABN* [place] (03/07/16 4:52 PM) BODY FLUIDS Clarity CSF Moderate Clear 03/07 [facility] *ABN* [place] (03/07/16 4:52 PM) BODY FLUIDS Tube Num CSF 1 03/07 [facility] BODY FLUIDS Supernat CSF Hemolyzed Colorless 03/07 [facility] *ABN* [place] (03/07/16 4:52 PM) URINE AND UA Sq Epi RARE 03/07 [facility] URINE AND UA Nitrite Negative Negative 03/07 [facility] (03/07/16 4:52 PM) [place] URINE AND UA Leuk Est Negative Negative 03/07 [facility] (03/07/16 4:52 PM) [place] URINE AND UA Blood Moderate Negative 03/07 [facility] *ABN* [place] (03/07/16 4:52 PM) URINE AND UA 0.2 EU/dL 0.1 - 1.0 03/07 [facility] Urobilinogen [facility] URINE AND UA Bili Negative Negative 03/07 [facility] *NA* [place] (03/07/16 4:52 PM) URINE AND UA Protein Negative Negative 03/07 [facility] (03/07/16 4:52 PM) [place] URINE AND UA Ketones Negative Negative 03/07 [facility] *NA* [place] (03/07/16 4:52 PM) URINE AND UA Glucose Negative Negative 03/07 [facility] (03/07/16 4:52 PM) [place] URINE AND UA Color Yellow Yellow 03/07 [facility] *NA* [place] (03/07/16 4:52 PM) URINE AND UA pH 6.5 5.0 - 8.0 03/07 [facility] URINE AND UA Turbidity Slight Cloudy Clear 03/07 [facility] (03/07/16 4:52 PM) [place] URINE AND UA Spec Grav 1.010 <=1.030 03/07 [facility] URINE AND UA RBC 12 /HPF 0 - 2 03/07 [facility]2016 [facility] URINE AND UA Mucus Few /LPF None Seen 03/07 [facility] /LPF /2016 [facility] URINE AND UA Bacteria Few /HPF None Seen 03/07 [facility] /[facility] /2016 [facility] URINE AND UA WBC 7 /HPF 0 - 5 03/07 [facility] Abdomen AP Abdomen AP DX EXAM: XR ABDOMEN 1 VIEW 03/06 - [facility] DATE: 03/06/2016 2:24 AM ENVIRONMENTAL ADVISER Read by: Michelle House MD Dictated Date/time: [...] CSF 115 mg/dL 45 - 80 03/05 [facility] BODY FLUIDS Protein CSF 52 mg/dL 15 - 45 03/05 [facility]2016 [facility] BODY FLUIDS Segs CSF 69 % 0 - 6 03/05 [facility] BODY FLUIDS Lymph CSF 21 % 40 - 80 03/05 [facility] BODY FLUIDS Monocyte CSF 10 % 15 - 45 03/05 [facility] BODY FLUIDS Tube Num CSF xxxxxxx 03/05 [facility] (03/05/16 4:02 PM) [place] BODY FLUIDS Color CSF Red Colorless 03/05 [facility] *ABN* [place] (03/05/16 4:02 PM) BODY FLUIDS Clarity CSF Marked Clear 03/05 [facility] *ABN* [place] (03/05/16 4:02 PM) BODY FLUIDS Supernat CSF Hemolyzed Colorless 03/05 [facility] *ABN* [place] (03/05/16 4:02 PM) BODY FLUIDS WBC CSF 233 /mm3 0 - 53 03/05 [facility] BODY FLUIDS RBC CSF 68945 /mm3 0 - 03 03/05 [facility]2016 [facility] URINE AND UA <=1.0 0.1 - 1.0 03/05 [facility] Urobilinogen mg/dL [facility] URINE AND UA RBC 7 /HPF 0 - 2 03/05 [facility] [address] [place] [address] URINE AND UA Mucus Few /LPF None Seen 03/05 [facility] STOOL /LPF /[address] [place] [address] URINE AND Micro? Not Indicated 03/05 [facility] *NA* [place] (03/05/16 9:24 AM) URINE AND UA Nitrite Negative Negative 03/05 [facility] (03/05/16 9:24 AM) [place] URINE AND UA WBC 1 /HPF 0 - 5 03/[address] URINE AND UA Leuk Est Negative Negative 03/05 [facility]2016 [facility] (03/05/16 9:24 AM) [place] URINE AND UA Turbidity Clear Clear 03/05 [facility] (03/05/16 9:24 AM) [place] URINE AND UA Spec Grav 1.011 <=1.030 03/05 [facility] [address] [place] [address] URINE AND UA Bili Negative Negative 03/05 [facility] *NA* [place] (03/05/16 9:24 AM) URINE AND UA Ketones Negative Negative 03/05 [facility] mg/dL mg/dL [facility] URINE AND UA Glucose 300 mg/dL Negative 03/05 [facility] mg/dL [facility] URINE AND UA Color Yellow Yellow 03/05 [facility] Medical *NA* Center (03/05/16 9:24 AM) URINE AND UA Blood Negative Negative 03/05 [facility] STOOL /2016 Medical (03/05/16 9:24 AM) Center URINE AND UA pH 7.0 5.0 - 8.0 03/05 [facility] STOOL /2016 [facility] URINE AND UA Protein Negative Negative 03/05 [facility] STOOL mg/dL mg/dL /2016 [facility] Center Abdomen AP Abdomen AP DX EXAM: XR ABDOMEN 1 VIEW 03/05 - [facility] DX - Medical EXAM: XR ABDOMEN 1 VIEW This report was dictated by a Dietary Worker/Fellow. I have personally reviewed the images as [...] gas pattern. Angiogram Angiogram PROCEDURE: 03/04 - [facility] [place] [place] cervical /2016 - Medical artery artery 1. Diagnostic Cerebral Angiogram: This report was dictated by a Dietary Worker/Fellow. I have personally reviewed the images as Center bilateral bilateral VR well as the Resident's interpretation and agree with the findings. VR Read by: Bernard Overton MD Resident: Bernard Overton MD Dictated Date/time: 03/04/16 17:01 DATE: 03/04/2016 3:46 PM ENVIRONMENTAL ADVISER Electronically Signed by: Mathieu Abdullahi MD 03/14/16 [...] single wall micropuncture technique and a 5 [place] sheath was placed. A 5 [place] Vert catheter was coaxially advanced with a [...] mm. BLOOD BANK Antibody Scrn Negative 03/04 [facility] (03/04/16 12:31 AM) [place] BLOOD BANK ABO/Rh A POS 03/04 [place] RESULTS /2016 [facility] HEMATOLOGY PTT 28.1 s 22.9 - 03/04 [place] 35.8 /2016 [facility] HEMATOLOGY PT 14.5 s 12.0 - 03/04 [place] 14.7 /2016 [facility] HEMATOLOGY INR 1.11 0.85 - 03/04 [place] 1.17 [facility] Chest 1view Chest 1view EXAM: XR CHEST 1 VIEW 03/02 - [facility] DX DX /2016 - [facility] DATE: 03/02/2016 3:00 AM ENVIRONMENTAL ADVISER Read by: Eusebia Smith MD Dictated Date/time: [...] Medical "Significant Center Findings called to Isaac Lucien_at 03/01/2016 17:12__by __.Read Back OK." BODY FLUIDS Lactic Acid 2.7 mMol/L 0.6 - 2.2 03/01 [facility] BODY FLUIDS Glucose CSF 78 mg/dL 45 - 80 03/01 [facility] BODY FLUIDS Monocyte CSF 13 % 15 - 45 03/01 [facility] BODY FLUIDS Lymph CSF 13 % 40 - 80 03/01 [facility] BODY FLUIDS Segs CSF 74 % 0 - 6 03/01 [facility] BODY FLUIDS WBC CSF 233 /mm3 0 - 53 03/01 [facility] BODY FLUIDS RBC CSF 25321 /mm3 0 - 03 03/01 [facility] BODY FLUIDS Clarity CSF Marked Clear 03/01 [facility] *ABN* [place] (03/01/16 3:14 PM) BODY FLUIDS Supernat CSF Hemolyzed Colorless 03/01 [facility] *ABN* [place] (03/01/16 3:14 PM) BODY FLUIDS Color CSF Red Colorless 03/01 [facility] *ABN* [place] (03/01/16 3:14 PM) BODY FLUIDS Tube Num CSF xxxxxxx 03/01 [facility] (03/01/16 3:14 PM) [place] Chest 1view Chest 1view EXAM: XR CHEST 1 VIEW 03/01 - [facility] DX DX - [facility] DATE: 03/01/2016 3:00 AM ENVIRONMENTAL ADVISER Read by: Vasiliy Biu MD Dictated Date/time: 03/01/16 09:56 Electronically Signed [...] AND UA Sq Epi None Seen 02/28 [facility] URINE AND UA <=1.0 0.1 - 1.0 02/28 [facility] Urobilinogen mg/dL /2016 [facility] URINE AND UA Nitrite Negative Negative 02/28 [facility] (02/29/16 11:57 AM) [place] URINE AND UA RBC 2 /HPF 0 - 2 02/28 [facility]2016 [facility] URINE AND UA WBC 2 /HPF 0 - 5 02/28 [facility]2016 [facility] URINE AND UA Leuk Est Negative Negative 02/28 [facility] (02/29/16 11:57 AM) [place] URINE AND UA Blood Negative Negative 02/28 [facility] (02/29/16 11:57 AM) [place] URINE AND UA Hyal Cast 1 /LPF 0 - 2 02/28 [facility]2016 [facility] URINE AND UA Mucus Few /LPF None Seen 02/28 [place] STOOL /LPF /2016 [facility] URINE AND UA Spec Grav 1.016 <=1.030 02/28 [facility]2016 [facility] URINE AND UA pH 5.5 5.0 - 8.0 02/[address] URINE AND UA Turbidity Slight Clear 02/28 [facility] (02/29/16 11:57 AM) URINE AND UA Protein Negative Negative 02/28 [facility] STOOL mg/dL mg/dL [facility] URINE AND UA Bili Negative Negative 02/28 [facility] *NA* [place] (02/29/16 11:57 AM) URINE AND UA Ketones Negative Negative 02/28 [facility] STOOL mg/dL mg/dL [facility] URINE AND UA Glucose 30 mg/dL Negative 02/28 [facility] mg/dL [facility] URINE AND UA Color Yellow Yellow 02/28 [facility] [place] (02/29/16 11:57 AM) CARDIAC Troponin-I null 0.00 - 02/28 [facility] ENZYMES 0.40 [facility] Chest 1view Chest 1view EXAM: XR CHEST 1 VIEW 02/28 [facility] DX DX [facility] DATE: 02/29/2016 3:00 AM ENVIRONMENTAL ADVISER Read by: Vasiliy Bui MD Dictated Date/time: [...] Brain wo EXAM: CT BRAIN 02/27 - [facility] contrast CT contrast CT /2016 [facility] DATE: 02/28/2016 at 15:27 Read by: Marcela [...] EXAM: XR CHEST 1 VIEW 02/27 - [facility] DX [facility] DATE: 02/28/2016 3:00 AM ENVIRONMENTAL ADVISER Read by: Vasiliy Bui MD Dictated Date/time: [...] AND UA Sq Epi None Seen 02/26 [facility] STOOL /2016 [facility] BACTERIAL - MRSA by PCR Negative 02/26 [facility] SEROLOGY /2016 [facility] (02/27/16 8:34 AM) Center Abdomen AP Abdomen AP DX EXAM: XR ABDOMEN 1 VIEW 02/26 - [place] DX /2016 [facility] DATE: 02/27/2016 10:13 AM ENVIRONMENTAL ADVISER Read by: Ashwin Guerra MD Dictated Date/time: 02/27/16 11:09 Electronically Signed by: Ashwin Guerar MD 02/27/16 11:09 FINAL REPORT INDICATION: Tube placement/removal/reposition COMPARISON: None. TECHNIQUE: Limited AP view of the abdomen for tube placement assessment. Number of images: 1 FINDINGS: Transesophageal feeding tube tip in the distal stomach Transesophageal suction tube sidehole in the distal stomach Other tubes and lines: None. No other changes. IMPRESSION: Tube positions as above. DRUG SCREEN U Opiate Scr Negative Negative 02/26 [facility]* [place] (02/27/16 12:41 AM) DRUG SCREEN U Cannab Scr Negative Negative 02/26 [facility] (02/27/16 12:41 AM) DRUG SCREEN U Benzodia Negative Negative 02/26 [facility] (02/27/16 12:41 AM) DRUG SCREEN U Propoxyph Negative Negative 02/26 [facility] (02/27/16 12:41 AM) DRUG SCREEN U Methadone Negative Negative 02/26 [facility] (02/27/16 12:41 AM) DRUG SCREEN U Cocaine Scr Negative Negative 02/26 [facility] (02/27/16 12:41 AM) DRUG SCREEN U Phencyc Scr Negative Negative 02/26 [facility] (02/27/16 12:41 AM) DRUG SCREEN U Belinda Scr Negative Negative 02/26 [facility] (02/27/16 12:41 AM) DRUG SCREEN U Amph Scr Negative Negative 02/26 [facility] (02/27/16 12:41 AM) DRUG SCREEN UDS Note See Note 02/26 [facility] (02/27/16 12:41 AM) URINE AND UA Bacteria Occasional None Seen 02/26 [facility] STOOL /HPF /HPF [facility] URINE AND UA Amorph Occasional None Seen 02/26 [facility] STOOL Trixie /HPF /HPF [facility] HEMATOLOGY TEG Interp Thrombelas 02/26 [facility] tograph [facility] results [place] show shortened value of R and increased value of Angle Alpha. 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.CPT :85266 HEMATOLOGY Angle 74.3 53.0 - 02/26 [facility] degrees 72.0 [facility] HEMATOLOGY Max Amp 69.2 mm 50.0 - 02/26 [place] 70.0 [facility] HEMATOLOGY Coag Index 3.5 -3.0-3.0 - 02/26 [facility] 3.0 [facility] HEMATOLOGY G-value 11.3 K 4.5 - 11.0 02/26 [facility] d/sc [facility] HEMATOLOGY Ly30 0.8 % 0.0 - 7.5 02/26 [facility]2016 [facility] HEMATOLOGY TEG Data See Note 02/26 [facility] (02/27/16 12:40 AM) [place] HEMATOLOGY R-time 3.8 min 5.0 - 10.0 02/26 [facility] HEMATOLOGY K-time 0.9 min 1.0 - 3.0 02/26 [facility] HEMATOLOGY INR 1.23 0.85 - 02/26 [facility] 1. [facility] HEMATOLOGY PT 15.8 s 12.0 - 02/26 [facility] 14.7 [facility] HEMATOLOGY PTT 25.3 s 22.9 - 02/26 [facility] 35.8 [facility] SPECIAL Hgb A1C 8.9 % <=5.6 % 02/26 [facility] CHEMISTRY [facility] Brain wo Brain wo CT HEAD WITHOUT CONTRAST 02/26 - [facility] contrast CT contrast CT /2016 - [facility] DATE: 02/27/2016 at 1:53 AM. Read by: [...] for EXAM: XR CHEST 1 VIEW 02/26 [facility] for Placement DX /2016 - Medical [...] EXAM: XR CHEST 1 VIEW 02/25 - [facility] DX DX /2016 - [facility] DATE: 02/26/2016 at 2120 hours Read by: [...] Brain wo CT HEAD WITHOUT CONTRAST 02/25 [facility] contrast CT contrast CT /2017 - [facility] DATE: 02/26/2016 at 9:08 PM. Read by: [...] brain. HEMATOLOGY POC Activated 154 s 02/25 [facility] Clotting Time [facility] BLOOD BANK Antibody Scrn Negative 02/25 [facility] RESULTS [facility] (02/26/16 3:00 AM) [place] BLOOD BANK ABO/Rh A POS 02/25 [facility] [address] [place] [address] CHEM PANEL Bili Total 0.4 mg/dL 0.2 - 1.3 02/[address] CHEM PANEL Alk Phos 81 unit/L 39 - 136 02/[address] CHEM PANEL AST 45 unit/L 0 - 37 02/[address] CHEM PANEL Total Protein 7.8 g/dL 6.4 - 8.4 02/[address] CHEM PANEL Albumin Lvl 3.7 g/dL 3.5 - 5.0 02/[address] CHEM PANEL ALT 52 unit/L 0 - 65 02/[address] CHEM PANEL A/G Ratio 0.9 0.7 - 1.6 02/[address] CHEM PANEL Globulin 4.1 g/dL 2.7 - 4.2 02/[address] CHEM PANEL B/C Ratio 27 6 - 25 02/[address] HEMATOLOGY G-value Rapid 10.5 K 5.0 - 11.6 02/25 [facility] d/sc [facility] HEMATOLOGY Max Amplitude 68 mm 52 - 71 02/[address] HEMATOLOGY K-time Rapid 1.1 min 0.6 - 2.3 02/[address] HEMATOLOGY Angle Rapid 76 degrees 64 - 80 02/[address] HEMATOLOGY [place] 0.6 min 02/[address] HEMATOLOGY R-time Rapid 0.8 min 0.4 - 0.7 02/25 [facility]2016 [facility] HEMATOLOGY ACT (TEG) 121 s 86 - 118 02/25 [facility] /2016 [facility] HEMATOLOGY Estimated % 0.6 % 0.0 - 7.5 02/25 [facility] Lysis Rapid [facility] Angiogram Angiogram PROCEDURE: 02/[address] [facility] [place] [place] - Medical artery artery 1. Diagnostic Cerebral Angiogram: This report was dictated by a Dietary Worker/Fellow. I have personally reviewed the images as Center bilateral bilateral VR well as the Resident's interpretation and agree with the findings. VR 2. 3D angiography: Bilateral internal carotid artery Read by: Bernard Overton MD Resident: Bernard Overton MD Dictated Date/time: 02/26/16 09:08 Electronically Signed by: Ji Mcdowell MD 03/07/16 12:30 FINAL REPORT DATE: 02/26/2016 7:11 AM ENVIRONMENTAL ADVISER INDICATION: Due to the patient clinical presentation [...] single wall micropuncture technique and a 5 [place] sheath was placed. A 5 [place] Vert catheter was coaxially advanced with a [...] wo EXAM: CT HEAD WITHOUT CONTRAST 02/25 [facility] contrast CT contrast CT /2016 - [facility] DATE: 02/26/2016 348 AM ENVIRONMENTAL ADVISER Read by: Cecilio Finney MD Dictated Date/time: [...] in agreement with preliminary report made by electronic heat seal operator vice president payment: Creator: Joe Downey Date: Feb 26, 2016 03:59:21 Subject: Extensive right frontotemporal subarachnoid hemorrhage with extension into the basal cisterns and interhemispheric fissure appears more pro minent than on prior exam. Findings communicated to Dr. Murphy at 0400 hours on 02/26/2016. Spine Spine EXAM: CT CERVICAL SPINE WITHOUT CONTRAST 02/25 - [facility] cervical cervical - Medical contrast CT contrast CT This report was dictated by a Dietary Worker/Fellow. I have personally reviewed the images as Center well as the Resident's interpretation and agree with the findings. DATE: 02/26/2016 3:23 AM ENVIRONMENTAL ADVISER Read by: Joe Downey MD Resident: Joe [...] C5-C6. Brain/Neck Brain/Neck EXAM: CTA BRAIN 02/25 [facility] CTA CTA /2016 - Medical EXAM: CTA NECK Center Read by: Nando Oliver MD Dictated Date/time: 02/26/16 09:37 DATE: 02/26/2016 3:22 AM ENVIRONMENTAL ADVISER Electronically Signed by: Nando Oliver MD 02/26/16 [...] Brain-Outside EXAM: CT HEAD WITHOUT CONTRAST 02/25 [facility] de Consult Consult CT /2016 - Medical CT Center DATE: Study was performed at outside hospital on 02/26/2016 at 1221 hours and submitted for 2nd interpretation on 02/26/2016 2:55 AM ENVIRONMENTAL ADVISER Read by: Cecilio Finney MD Dictated Date/time: [...] in agreement with preliminary report made by electronic heat seal operator vice president payment: Creator: Joe Downey Date: Feb 26, 2016 03:09:02 Subject: Extensive right frontotemporal subarachnoid hemorrhage with extension into the basal cisterns. Findings were originally communicated to Dr. Mckeon from prior outside report. Chest 1view Chest 1view EXAM: XR CHEST 1 VIEW 02/25 - [facility] DX DX /2016 - Medical This report was dictated by a Dietary Worker/Fellow. I have personally reviewed the images as Center well as the Resident's interpretation and agree with the findings. DATE: 02/26/2016 2:46 AM ENVIRONMENTAL ADVISER Read by: Joe Downey MD Resident: Joe [...] Source Temperature Oral (F) 98.0 F 08/26/2017 [facility] Respitory Rate 18 08/26/2017 [facility] Systolic (mm Hg) 126 08/26/2017 [facility] Diastolic (mm Hg) 83 08/26/2017 [facility] Heart Rate 67 08/26/2017 [facility] Heart Rate 60 08/26/2017 [facility] Respitory Rate 18 08/26/2017 [facility] Systolic (mm Hg) 109 08/26/2017 [facility] Diastolic (mm Hg) 61 08/26/2017 [facility] Temperature Oral (F) 98.8 F 08/26/2017 [facility] Temperature Oral (F) 97.5 F 08/26/2017 [facility] Heart Rate 60 08/26/2017 [facility] Systolic (mm Hg) 110 08/26/2017 [facility] Diastolic (mm Hg) 61 08/26/2017 [facility] Respitory Rate 18 08/26/2017 [facility] Weight 77.273 08/25/2017 [facility] BMI Calculated 42.64 08/25/2017 [facility] Height 134.62 cm 08/25/2017 [facility] BMI Calculated 29.24 08/24/2017 [facility] Height 162.56 cm 08/24/2017 [facility] Weight 77.273 08/24/2017 [facility] Weight 77.273 08/24/2017 [facility] BMI Calculated 29.24 08/24/2017 [facility] Height 162.56 cm 08/24/2017 [facility] Weight 75.4 06/20/2016 [facility] Respitory Rate 39 06/20/2016 [facility] [...] [facility] Center Diastolic (mm Hg) 57 06/20/2016 [facility] BMI Calculated 27.52 06/19/2016 [facility] Weight 72.727 06/19/2016 [facility] Height 162.56 cm 06/19/2016 [facility] Heart Rate 82 06/19/2016 [facility] Height 162.56 cm 06/18/2016 [facility] BMI Calculated 27.52 06/18/2016 [facility] Weight 72.727 06/18/2016 [facility] Temperature Oral (F) 97.9 F 03/29/2016 [facility] Center Systolic (mm Hg) 99 03/29/2016 [facility] Diastolic (mm Hg) 57 03/29/2016 [facility] Heart Rate 71 03/29/2016 [facility] Temperature Oral (F) 98.5 F 03/29/2016 [facility] [...] [facility] Center Diastolic (mm Hg) 71 03/28/2016 [facility] Temperature Oral (F) 98.3 F 03/28/2016 [facility] Heart Rate 66 03/28/2016 [facility] Center Respitory Rate 18 03/28/2016 [facility] Weight 75 03/12/2016 [facility] BMI Calculated 28.38 03/12/2016 [facility] Height 162.56 cm 03/12/2016 [facility] Weight 75 03/12/2016 [facility] BMI Calculated 28.38 03/12/2016 [facility] Height 162.56 cm 03/12/2016 [facility] Systolic (mm Hg) 109 03/12/2016 [facility] Diastolic (mm Hg) 66 03/12/2016 [facility] Respitory Rate 18 03/12/2016 [facility] Heart Rate 86 03/12/2016 [facility] Temperature Oral (F) 100.1 F 03/12/2016 [facility] Systolic (mm Hg) 124 03/12/2016 [facility] Diastolic (mm Hg) 60 03/12/2016 [facility] Systolic (mm Hg) 119 03/11/2016 [facility] Diastolic (mm Hg) 62 03/11/2016 [facility] Heart Rate 86 03/11/2016 [facility] Respitory Rate 18 03/11/2016 [facility] Temperature Oral (F) 98.3 F 03/11/2016 [facility] Temperature Oral (F) 98.0 F 03/11/2016 [facility] Respitory Rate 18 03/11/2016 [facility] Heart Rate 89 03/11/2016 [facility] Height 160.02 cm 03/01/2016 [facility] Height 160.02 cm 03/01/2016 [facility] Height 160.02 cm 03/01/2016 [facility] Weight 90.009 02/26/2016 [facility] BMI Calculated 35.15 02/26/2016 [facility] Weight 90.909 02/26/2016 [facility] BMI Calculated 34.4 02/26/2016 [facility] Encounters Location Location Encounter Encounter Reason Attending ADM DC Status Source Details Type Number For Provider Date Date Visit [facility] [id number] Isauro Day 02/25 03/12 [facility] Inpatient [id number] Boom 03/12 03/29 [facility] Out[facility] [id number] ISAURO L 04/17 Active [facility] Outpatient [id number] JI MCDOWELL 05/24 [facility] Inpatient [id number] Ji Mcdowell 06/19 06/20 [facility] [id number] Veronika 08/24 08/26 [facility] Procedures Procedure Code Date Perfomer Comments Source Selective catheter 86606 06/19/2016 [facility] placement, common Medical carotid or innominate Center artery, unilateral, any approach, with angiography of the ipsilateral extracranial carotid circulation and all associated radiological supervision and interpretation, includes angiography of the c Selective catheter 53904 06/19/2016 [facility] placement, internal Medical carotid artery, Center unilateral, with angiography of the ipsilateral intracranial carotid circulation and all associated radiological supervision and interpretation, includes angiography of the extracranial carotid and ce Selective catheter 30123 03/04/2016 [facility] Hospital placement, vertebral Medical artery, unilateral, Center with angiography of the ipsilateral vertebral circulation and all associated radiological supervision and interpretation, includes angiography of the cervicocerebral arch, when performed Selective catheter [id number] 02/27/2016 [facility] placement, internal Medical carotid artery, Center unilateral, with angiography of the ipsilateral intracranial carotid circulation and all associated radiological supervision and interpretation, includes angiography of the extracranial carotid and ce Craniotomy and [id number] [facility] clipping of Medical intracranial aneurysm Center Repair of aneurysm by [id number] [facility]
--- OUTSIDE RECORDS SUMMARY | 2018-06-29 12:17 | XMS REPORT ---
:1950 [facility] [address] [place] [address] Care Team Providers Name Role Phone Unavailable [...] mammographic images were evaluated by either a [employer] M-Vu or a [employer] ImageChecker CAD (computer aided detection system). No [...] mammography in one year. Deshaun jacinto/jose:12/16/2017 15:55:39 Guitar Teacher: Nneka Kahn MM, [facility] Mammographyletter sent: BIRADS 1-2 Normal Mammogram BI-RADS: 2 Benign
--- NOTE | 2018-06-29 12:45 | ER ---
Nurse's Notes [facility] Name: Lorri Dotson Age: 68 yrs Sex: Female : 1950 Arrival Date: 06/29/2018 Time: 12:00 Bed 13 Private MD: Diagnosis: Muscle spasm Presentation: 06/29 12:05 Presenting complaint: Patient states: "my blood sugar was high today, it was 280 around aa5 7:30am today and my normal is between 110 and 130". pt reports nausea, denies vomiting. Pt also reports SOB that began 1 week ago and back pain. Transition of care: patient was not received from another setting of care. Onset of symptoms was June 2018. Risk Assessment: Do you want to hurt yourself or someone else? Patient reports no desire to harm self or others. Initial Sepsis Screen: Does the patient meet any 2 criteria? No. Patient's initial sepsis screen is negative. Does the patient have a suspected source of infection? No. Patient's initial sepsis screen is negative. Care prior to arrival: None. 12:05 Method Of Arrival: Ambulatory aa5 12:05 Acuity: SARAI 3 aa5 Historical: - Allergies: 12:07 No Known Allergies; aa5 - Home Meds: 12:07 aspirin 81 mg Oral chew 1 tab once daily [Active]; atorvastatin 20 mg Oral tab 1 tab aa5 once daily [Active]; glimepiride 4 mg Oral tab 1 tab once daily [Active]; lisinopril 20 mg Oral tab 1 tab once daily [Active]; lovastatin 10 mg Oral tab 1 tab once daily [Active]; metformin 1,000 mg Oral tab 2 times per day [Active]; Pepcid 20 mg Oral tab 1 tab once daily [Active]; Plavix 75 mg Oral tab 1 tab once daily [Active]; - PMHx: 12:07 Diabetes - NIDDM; Hypertension; TIA; aa5 - PSHx: 12:07 brain surgery with clips; aa5 - Immunization history:: Flu vaccine is not up to date. - Social history:: Smoking status: Patient/guardian denies using tobacco, Patient/guardian denies using alcohol, street drugs, The patient lives with family. - Ebola Screening: : No symptoms or risks identified at this time. - Family history:: not pertinent. - Hospitalizations: : No recent hospitalization is reported. Screenin:03 Abuse screen: Denies threats or abuse. Denies injuries from another. Nutritional aj screening: No deficits noted. Tuberculosis screening: No symptoms or risk factors identified. Fall Risk None identified. Assessment: 12:20 General: Appears in no apparent distress. comfortable, Behavior is calm, cooperative, aj appropriate for age. Pain: Denies pain. Neuro: Level of Consciousness is awake, alert, obeys commands, Oriented to person, place, time, situation, Appropriate for age. Respiratory: Airway is patent Respiratory effort is even, unlabored, Respiratory pattern is regular, symmetrical. GI: Reports indigestion. Derm: Skin is intact, is healthy with good turgor, Skin is pink, warm \\T\\ dry. normal. Vital Signs: 12:07 BP 128 / 55; Pulse 70; Resp 18 S; Temp 98.0(TE); Pulse Ox 96% on R/A; Weight 72.57 kg aa5 (R); Height 5 ft. 4 in. (162.56 cm) (R); Pain 5/10; 12:07 Body Mass Index 27.46 (72.57 kg, 162.56 cm) aa5 ED Course: 12:00 Patient arrived in ED. rg4 12:01 Arm band placed on. aa5 12:07 Triage completed. aa5 12:10 Irma Matos MD is Attending Physician. ma2 12:18 Gita Frank, ELIAS is Primary Nurse. aj 12:36 EKG done, by structured cabling technician. reviewed by Irma Matos MD. sm3 13:03 Patient has correct armband on for positive identification. aj 13:03 No provider procedures requiring assistance completed. Patient did not have IV access aj during this emergency room visit. Administered Medications: 12:50 CANCELLED (Physician Discretion): Motrin 400 mg PO once aj 13:02 Drug: Maalox Suspension (200 mg-200 mg-20 mg/5 mL) 30 ml Route: PO; aj 13:04 Follow up: Response: No adverse reaction; Medication administered at discharge. aj Point of Care Testing: Blood Glucose: 12:08 Blood Glucose: 87 mg/dL; aa5 Ranges: Outcome: 12:44 Discharge ordered by . ma2 13:03 Discharged to home ambulatory. aj 13:03 Condition: good 13:03 Discharge instructions given to patient, Instructed on discharge instructions, follow up and referral plans. medication usage, Demonstrated understanding of instructions, follow-up care, medications, Prescriptions given X 1. 13:04 Patient left the ED. john Signatures: Gita Frank, RN RN Leelee Fregoso RN RN aa5 Carrie Swartz4 Irma Matos MD MD ak2 Fabiola Maria 3
--- NOTE | 2018-06-29 12:45 | EDPHYS ---
Physician Documentation [facility] Name: Lorri Dotson Age: 68 yrs Sex: Female : 1950 Arrival Date: 06/29/2018 Time: 12:00 Bed 13 Private MD: ED Physician Irma Matos HPI: 06/29 12:33 This 68 yrs old Female presents to ER via Ambulatory with complaints of High ma2 Blood Sugar. 12:33 This 68 yrs old Female presents to ER via Ambulatory with complaints of High ma2 Blood Sugar. 12:33 Onset: The symptoms/episode began/occurred gradually, 1 day(s) ago. Current symptoms: ma2 In the emergency department the patient's symptoms have resolved. The patient has experienced similar episodes in the past. hs of NIDDM her with elevated BS and BP x 1, has muscle aches also . Historical: - Allergies: 12:07 No Known Allergies; aa5 - Home Meds: 12:07 aspirin 81 mg Oral chew 1 tab once daily [Active]; atorvastatin 20 mg Oral tab 1 tab aa5 once daily [Active]; glimepiride 4 mg Oral tab 1 tab once daily [Active]; lisinopril 20 mg Oral tab 1 tab once daily [Active]; lovastatin 10 mg Oral tab 1 tab once daily [Active]; metformin 1,000 mg Oral tab 2 times per day [Active]; Pepcid 20 mg Oral tab 1 tab once daily [Active]; Plavix 75 mg Oral tab 1 tab once daily [Active]; - PMHx: 12:07 Diabetes - NIDDM; Hypertension; TIA; aa5 - PSHx: 12:07 brain surgery with clips; aa5 - Immunization history:: Flu vaccine is not up to date. - Social history:: Smoking status: Patient/guardian denies using tobacco, Patient/guardian denies using alcohol, street drugs, The patient lives with family. - Ebola Screening: : No symptoms or risks identified at this time. - Family history:: not pertinent. - Hospitalizations: : No recent hospitalization is reported. ROS: 12:33 Constitutional: Negative for fever, chills, and weight loss, Cardiovascular: Negative ma2 for chest pain, palpitations, and edema, Respiratory: Negative for shortness of breath, cough, wheezing, and pleuritic chest pain, Abdomen/GI: Negative for abdominal pain, nausea, diarrhea, and constipation, Psych: Negative for depression, anxiety, suicide ideation, homicidal ideation, and hallucinations, Endocrine: Negative for neck swelling, polydipsia, polyuria, polyphagia, and marked weight changes. 12:33 All other systems are negative. Exam: 12:33 Constitutional: This is a well developed, well nourished patient who is awake, alert, ma2 and in no acute distress. Chest/axilla: Normal chest wall appearance and motion. Nontender with no deformity. No lesions are appreciated. Cardiovascular: Regular rate and rhythm with a normal S1 and S2. No gallops, murmurs, or rubs. Normal PMI, no JVD. No pulse deficits. Respiratory: Lungs have equal breath sounds bilaterally, clear to auscultation and percussion. No rales, rhonchi or wheezes noted. No increased work of breathing, no retractions or nasal flaring. Abdomen/GI: Soft, non-tender, with normal bowel sounds. No distension or tympany. No guarding or rebound. No evidence of tenderness throughout. Back: No spinal tenderness. No costovertebral tenderness. Full range of motion. MS/ Extremity: Pulses equal, no cyanosis. Neurovascular intact. Full, normal range of motion. 12:33 Musculoskeletal/extremity: tenderness over scapula and lright lower ribs. Vital Signs: 12:07 BP 128 / 55; Pulse 70; Resp 18 S; Temp 98.0(TE); Pulse Ox 96% on R/A; Weight 72.57 kg aa5 (R); Height 5 ft. 4 in. (162.56 cm) (R); Pain 5/10; 12:07 Body Mass Index 27.46 (72.57 kg, 162.56 cm) aa5 MDM: 12:10 Patient medically screened. ma2 12:33 Differential diagnosis: BS wnl and BP wnl here, has muscle sprain vs spasm. Data ma2 reviewed: vital signs, nurses notes. Counseling: I had a detailed discussion with the patient and/or guardian regarding: the historical points, exam findings, and any diagnostic results supporting the discharge/admit diagnosis, the presence of at least one elevated blood pressure reading (>120/80) during this emergency department visit, the need for outpatient follow up. Response to treatment: the patient's symptoms have markedly improved after treatment. 12:43 ED course: . [facility] 06/29 12:11 Order name: Urine Dipstick-Ancillary (obtain specimen); Complete Time: 12:50 wv2 06/29 12:11 Order name: Blood Sugar; Complete Time: 12:13 wv2 06/29 12:13 Order name: EKG - Nurse/Tech; Complete Time: 12:50 wv2 Administered Medications: 12:50 CANCELLED (Physician Discretion): Motrin 400 mg PO once 13:02 Drug: Maalox Suspension (200 mg-200 mg-20 mg/5 mL) 30 ml Route: PO; aj 13:04 Follow up: Response: No adverse reaction; Medication administered at discharge. Point of Care Testing: Blood Glucose: 12:08 Blood Glucose: 87 mg/dL; aa5 Ranges: Critical Glucose Levels:Adult <50 mg/dl or >400 mg/dl <40 mg/dl or >180 mg/dl Disposition: 06/29/18 12:44 Discharged to Home. Impression: Muscle spasm. - Condition is Stable. - Discharge Instructions: Muscle Pain, Adult. - Prescriptions for Tylenol- Codeine #3 300-30 mg Oral Tablet - take 2 tablet by ORAL route every 6 hours As needed; 30 tablet. - Medication Reconciliation Form, Thank You Letter, Antibiotic Education, Prescription Opioid Use form. - Follow up: Private Physician; When: Tomorrow; Reason: Continuance of care. Signatures: Gita Frank RN RN aj Calderon, Audri, RN RN aa5 Irma Matos MD MD wv2 Corrections: (The following items were deleted from the chart) 12:50 12:35 Motrin 400 mg PO once ordered. [facility] 13:04 12:44 06/29/2018 12:44 Discharged to Home. Impression: Muscle spasm. Condition is aj Stable. Forms are Medication Reconciliation Form, Thank You Letter, Antibiotic Education, Prescription Opioid Use. Follow up: Private Physician; When: Tomorrow; Reason: Continuance of care. [facility]
[2018-06-29] MEDS ORDERED: MAGNE/ALUM HYDROXD 30 ML UCUP ONE (13:05)
[2018-06-29 13:33] VITALS: BP 128/55; TEMP 98; O2SAT 96
--- NOTE | 2018-06-29 15:11 | EKG ---
Test Date: 2018-06-29 Test Time: 12:36:53 [employer] Worker: JOSE MEASUREMENT RESULTS: Intervals: Rate: 64 NH: 142 QRSD: 82 QT: 420 QTc: 433 [place]: P: 10 NH: 142 QRS: 5 T: 27 INTERPRETIVE STATEMENTS: Normal sinus rhythm Normal ECG Compared to ECG 04/21/2018 13:00:23 No significant changes Electronically Signed On 06-29-18 15:10:47 CDT by Tj Jones
== END 2018-06-29 13:04 | disposition home or self-care (01) ==
LOC: ER 11:58
DX: M62.838 Other muscle spasm (principal); E11.9 Type 2 diabetes mellitus without complications; I10 Essential (primary) hypertension; Z86.73 Personal history of transient ischemic attack (TIA), and cerebral infarction without residual deficits; Z79.82 Long term (current) use of aspirin
CPT/HCPCS: 82962; 93005; 99283

== ENCOUNTER 2019-02-11 17:55 | Emergency (ER) | payer OTHER ==
--- OUTSIDE RECORDS SUMMARY | 2019-02-11 17:57 | XMS REPORT ---
:1950 [facility] Address [address] [place] [address] Care Team Providers Name Role Phone Unavailable [...] mammographic images were evaluated by either a [employer] M-Vu or a [employer] ImageChecker CAD (computer aided detection system). No [...] mammography in one year. Deshaun jacinto/jose:12/16/2017 15:55:39 Import/Export Analyst: Nneka Kahn MM, [facility] Mammographyletter sent: BIRADS 1-2 Normal Mammogram BI-RADS: 2 Benign
--- NOTE | 2019-02-11 20:40 | RAD REPORT ---
EXAM DESCRIPTION: Nikki Sam (2 Views)02/11/2019 8:33 pm CLINICAL HISTORY: Cough COMPARISON: April 2018 FINDINGS: The lungs appear clear of acute infiltrate. The heart is normal size IMPRESSION: No acute abnormalities displayed
--- NOTE | 2019-02-11 20:46 | ER ---
Nurse's Notes [facility] Name: Lorri Dotson Age: 68 yrs Sex: Female : 1950 Arrival Date: 02/11/2019 Time: 17:57 Bed 14 Private MD: Diagnosis: Acute bronchitis, unspecified Presentation: 02/11 18:13 Transition of care: patient was not received from another setting of care. sv 18:13 Method Of Arrival: Ambulatory sv 18:18 Presenting complaint: Patient states: fever, non-productive cough, body aches since sv Friday. Onset of symptoms was February 06, 2019. Care prior to arrival: None. 18:18 Acuity: SARAI 4 sv 20:00 Risk Assessment: Do you want to hurt yourself or someone else? Patient reports no rr5 desire to harm self or others. Initial Sepsis Screen: Does the patient meet any 2 criteria? No. Patient's initial sepsis screen is negative. Does the patient have a suspected source of infection? Yes: Productive cough/pneumonia. Historical: - Allergies: 18:13 No Known Allergies; sv - PMHx: 18:13 Diabetes - NIDDM; Hypertension; TIA; sv - PSHx: 18:13 brain surgery with clips; sv Screenin:13 Abuse screen: Denies threats or abuse. Denies injuries from another. Nutritional rr5 screening: No deficits noted. Tuberculosis screening: No symptoms or risk factors identified. Fall Risk None identified. Total Whitmore Fall Scale indicates No Risk (0-24 pts). Assessment: 20:00 General: Appears in no apparent distress. uncomfortable, Behavior is calm, cooperative, rr5 appropriate for age, awaiting for results.. Pain: Complains of pain in throat Quality of pain is described as aching, Pain began gradually, Is intermittent. Neuro: Level of Consciousness is awake, alert, obeys commands, Oriented to person, place, time, situation, Appropriate for age. Cardiovascular: Capillary refill < 3 seconds Patient's skin is warm and dry. Respiratory: Airway is patent Respiratory effort is even, unlabored, Respiratory pattern is regular, symmetrical, Breath sounds are clear. GI: No signs and/or symptoms were reported involving the gastrointestinal system. : No signs and/or symptoms were reported regarding the genitourinary system. EENT: Throat is clear with gag reflex present, Reports pain in throat. Derm: Skin is intact, Skin temperature is warm. Musculoskeletal: Circulation, motion, and sensation intact. Capillary refill < 3 seconds. 21:10 Reassessment: Patient appears in no apparent distress at this time. Patient is alert, rr5 oriented x 3, equal unlabored respirations, skin warm/dry/pink. discharge instruction given and explained without complaints made. Vital Signs: 18:19 BP 140 / 58; Pulse 91; Resp 16; Temp 100.2; Pulse Ox 95% ; sv 20:00 BP 146 / 75; Pulse 80; Resp 17; Pulse Ox 98% ; rr5 21:12 BP 133 / 62; Pulse 85; Resp 17; Temp 99.5; Pulse Ox 99% ; rr5 ED Course: 17:57 Patient arrived in ED. ag5 18:13 Arm band placed on. sv 18:19 Triage completed. sv 19:27 Flu Sent. jd3 19:27 Strep Sent. jd3 19:31 Sharri Cruz FNP-C [facility]. snw 19:31 Leonel Mccracken MD is Attending Physician. snw 19:51 Jhon Person, ELIAS is Primary Nurse. rr5 20:10 Patient has correct armband on for positive identification. Placed in gown. Bed in low rr5 position. Call light in reach. 20:41 Chest Pa And Lat (2 Views) XRAY In Process Unspecified. EDMS 21:15 No provider procedures requiring assistance completed. Patient did not have IV access rr5 during this emergency room visit. Administered Medications: No medications were administered Outcome: 20:46 Discharge ordered by . snw 21:16 Discharged to home ambulatory. rr5 21:16 Condition: stable 21:16 Discharge instructions given to patient, Instructed on discharge instructions, follow up and referral plans. medication usage, Demonstrated understanding of instructions, follow-up care, medications, Prescriptions given X 2. 21:18 Patient left the ED. rr5 Signatures: Dispatcher [employer] EDMS Julieta Dominguez, RN Sharri Alonso FNP-C FNP-Csnw Davies, Jonathon, RN RN jd3 Roque, Raymond, RN RN rr5 Lucia Rincon ag5
--- NOTE | 2019-02-11 20:46 | EDPHYS ---
Physician Documentation [facility] Name: Lorri Dotson Age: 68 yrs Sex: Female : 1950 Arrival Date: 02/11/2019 Time: 17:57 Bed 14 Private MD: ED Physician Leonel Mccracken HPI: 02/11 21:15 This 68 yrs old Female presents to ER via Ambulatory with complaints of Sore snw Throat, Cough. 21:15 The patient presents with sore throat. The patient describes throat pain as raw. Onset: snw The symptoms/episode began/occurred suddenly, 2 day(s) ago, and became persistent. Severity of symptoms: At their worst the symptoms were moderate. Associated signs and symptoms: Pertinent positives: cough, fever, flu-like symptoms, malaise. It is unknown whether or not the patient has had similar symptoms in the past. It is unknown whether or not the patient has recently seen a physician. Historical: - Allergies: 18:13 No Known Allergies; sv - PMHx: 18:13 Diabetes - NIDDM; Hypertension; TIA; sv - PSHx: 18:13 brain surgery with clips; sv ROS: 21:15 Eyes: Negative for injury, pain, redness, and discharge, ENT: Negative for injury, snw pain, and discharge, + sore throat Neck: Negative for injury, pain, and swelling, Cardiovascular: Negative for chest pain, palpitations, and edema, Abdomen/GI: Negative for abdominal pain, nausea, vomiting, diarrhea, and constipation, Back: Negative for injury and pain, : Negative for injury, bleeding, discharge, and swelling, MS/Extremity: Negative for injury and deformity, Skin: Negative for injury, rash, and discoloration, Neuro: Negative for headache, weakness, numbness, tingling, and seizure. 21:15 Constitutional: Positive for body aches, fever. 21:15 Respiratory: Positive for cough, with no reported sputum. Exam: 21:13 Constitutional: This is a well developed, well nourished patient who is awake, alert, snw and in no acute distress. Head/Face: Normocephalic, atraumatic. Eyes: Pupils equal round and reactive to light, extra-ocular motions intact. Lids and lashes normal. Conjunctiva and sclera are non-icteric and not injected. Cornea within normal limits. Periorbital areas with no swelling, redness, or edema. ENT: Nares patent. No nasal discharge, no septal abnormalities noted. Tympanic membranes are normal and external auditory canals are clear. Oropharynx with no redness, swelling, or masses, exudates, or evidence of obstruction, uvula midline. Mucous membranes moist. Neck: Trachea midline, no thyromegaly or masses palpated, and no cervical lymphadenopathy. Supple, full range of motion without nuchal rigidity, or vertebral point tenderness. No Meningismus. Chest/axilla: Normal chest wall appearance and motion. Nontender with no deformity. No lesions are appreciated. Cardiovascular: Regular rate and rhythm with a normal S1 and S2. No gallops, murmurs, or rubs. Normal PMI, no JVD. No pulse deficits. Respiratory: Lungs have equal breath sounds bilaterally, clear to auscultation and percussion. No rales, rhonchi or wheezes noted. No increased work of breathing, no retractions or nasal flaring. +cough Abdomen/GI: Soft, non-tender, with normal bowel sounds. No distension or tympany. No guarding or rebound. No evidence of tenderness throughout. Back: No spinal tenderness. No costovertebral tenderness. Full range of motion. Skin: Warm, dry with normal turgor. Normal color with no rashes, no lesions, and no evidence of cellulitis. Vital Signs: 18:19 BP 140 / 58; Pulse 91; Resp 16; Temp 100.2; Pulse Ox 95% ; sv 20:00 BP 146 / 75; Pulse 80; Resp 17; Pulse Ox 98% ; rr5 21:12 BP 133 / 62; Pulse 85; Resp 17; Temp 99.5; Pulse Ox 99% ; rr5 MDM: 19:32 Patient medically screened. snw 21:14 Data reviewed: vital signs, nurses notes. Data interpreted: Pulse oximetry: on room air snw is 99 %. Interpretation: normal. Counseling: I had a detailed discussion with the patient and/or guardian regarding: the historical points, exam findings, and any diagnostic results supporting the discharge/admit diagnosis, lab results, the need for outpatient follow up, for definitive care, to return to the emergency department if symptoms worsen or persist or if there are any questions or concerns that arise at home. Special discussion: I have referred the patient to see his PCP for further evaluation of high blood pressure. Based on the history and exam findings, there is no indication for further emergent testing or inpatient evaluation. I discussed with the patient/guardian the need to see the primary care provider for further evaluation of the symptoms. 02/11 18:58 Order name: Flu; Complete Time: 20:16 snw 02/11 18:58 Order name: Strep; Complete Time: 20:16 snw 02/11 20:04 Order name: Throat Culture EDMS 02/11 20:17 Order name: Chest Pa And Lat (2 Views) XRAY; Complete Time: 20:48 snw Administered Medications: No medications were administered Disposition: 02/11/19 20:46 Discharged to Home. Impression: Acute bronchitis, unspecified. - Condition is Stable. - Discharge Instructions: Acute Bronchitis, Adult, Hypertension, Blood Glucose Monitoring, Adult, Form - Blood Pressure Record Sheet. - Prescriptions for Zyrtec 10 mg Oral Tablet - take 1 tablet by ORAL route once daily As needed; 20 tablet. Tessalon Perles 100 mg Oral Capsule - take 1 capsule by ORAL route every 8 hours As needed; 15 capsule. - Medication Reconciliation Form, Thank You Letter, Antibiotic Education, Prescription Opioid Use form. - Follow up: Private Physician; When: 2 - 3 days; Reason: Recheck today's complaints, Continuance of care, Re-evaluation by your physician. Follow up: Emergency Department; When: As needed; Reason: Worsening of condition. Addendum: 02/15/2019 08:51 Co-signature as Attending Physician, Leonel Mccracken MD I agree with the assessment and c gold plan of care. Signatures: Dispatcher [employer] Julieta Dave, RN Leonel Smith MD MD cha Therrien, Shelly, FUNDRAISING ASSISTANT-C FUNDRAISING ASSISTANT-Csnw Jhon Person, RN RN rr5 Corrections: (The following items were deleted from the chart) 02/11 21:18 20:46 02/11/2019 20:46 Discharged to Home. Impression: Acute bronchitis, unspecified. rr5 Condition is Stable. Forms are Medication Reconciliation Form, Thank You Letter, Antibiotic Education, Prescription Opioid Use. Follow up: Private Physician; When: 2 - 3 days; Reason: Recheck today's complaints, Continuance of care, Re-evaluation by your physician. Follow up: Emergency Department; When: As needed; Reason: Worsening of condition. snw
[2019-02-11 21:27] VITALS: BP 133/62; TEMP 99.5; O2SAT 99
== END 2019-02-11 21:18 | disposition home or self-care (01) ==
LOC: ER 17:55
DX: J20.9 Acute bronchitis, unspecified (principal); I10 Essential (primary) hypertension
CPT/HCPCS: 71046; 87070; 87081; 87804; 99283

== ENCOUNTER 2019-04-25 16:53 | Emergency (ER) | payer OTHER ==
--- OUTSIDE RECORDS SUMMARY | 2019-04-25 16:55 | XMS REPORT | Summary of Care ---
:1950 Author Organization [facility] - Health Address [address] [place] [address] Care Team Providers Name Role Phone Unavailable Primary Care Provider Unavailable Encounter Details Date Type Department Care Team Description 04/04/2019 Orders Only [facility] Doctor Unassigned, [address] [facility] [place] [address] [address] [place] [address] Allergies No Known Allergiesdocumented as of this encounter (statuses as of 04/04/2019) Medications Medication Sig Dispensed Refills Start Date End Date Status metFORMIN 1,000 mg Take 1,000 mg by 0 Active tablet mouth 2 (two) times daily with meals. lisinopril 20 mg tablet Take 20 mg by 0 Active mouth daily. glimepiride 4 mg tablet Take 4 mg by 0 Active mouth daily with breakfast. atorvastatin 10 mg Take 10 mg by 0 Active tablet mouth at bedtime. clopidogrel 75 mg Take 75 mg by 0 Active tablet mouth daily. acetaminophen-codeine Take 1 tablet by 20 tablet 0 12/06/2017 Active (TYLENOL-CODEINE #3) mouth every 6 300-30 mg tablet (six) hours as needed for Pain (scale 4-6). ondansetron 4 mg Take 1 tablet by 12 tablet 0 02/17/2018 Active disintegrating tablet mouth every 8 (eight) hours as needed for Nausea and Vomiting (N/V). sulfamethoxazole-trimet Take 1 tablet by 20 tablet 0 02/17/2018 Active hoprim 800-160 mg per mouth every 12 tablet (twelve) hours. promethazine-codeine Take 5 mL by 120 mL 0 04/04/2018 Active 6.25-10 mg/5 mL mouth 4 (four) syrupIndications: times daily as Flu-like symptoms needed for Cough. sucralfate 1 gram Take 1 tablet by 30 tablet 0 05/03/2018 Active tabletIndications: mouth before Hiccoughs meals and at bedtime. metoclopramide HCl 10 Take 1 tablet by 20 tablet 0 05/03/2018 Active mg tabletIndications: mouth every 6 Hiccoughs (six) hours. documented as of this encounter (statuses as of 04/04/2019) Active Problems Problem Noted Date Abnormal fasting glucose 05/07/2013 Overview: Fasting glucose- 326 Encounter for routine gynecological examination 04/08/2013 Overview: ICD10 Diagnosis Term Manager Social Services Utility Tubal ligation status 04/08/2013 Asymptomatic varicose veins 04/08/2013 Leg cramps 04/08/2013 Overweight 04/08/2013 Overview: ICD10 Diagnosis [employer] Social Services Utility documented as of this encounter (statuses as of 04/04/2019) Immunizations Name Administration Dates Next Due Tdap 04/08/2012 documented as of this encounter Social History Tobacco Use Types Packs/Day Years Used Date Never Smoker Smokeless Tobacco: Never Used Alcohol Use Drinks/Week oz/Week Comments No Sex Assigned at Date Recorded Not on file Job Start Date Occupation Industry Not on file Not on file Not on file Travel History Travel Start Travel End No recent travel history available. documented as of this encounter Last Filed Vital Signs Not on filedocumented in this encounter Plan of Treatment Health Maintenance Due Date Last Done Comments HEPATITIS C (HCV) SCREEN 1950 COLONOSCOPY 04/19/2001 Zoster Recombinant Vaccine (SHINGRIX) (1 of 2) 04/19/2001 Breast Cancer Screening (MAMMOGRAM) 02/14/2012 02/13/2011 Medicare Wellness Visit 04/19/2016 Osteoporosis Screening 04/19/2016 PNEUMOCOCCAL VACCINES 65+ (1 of 2 - PCV13) 04/19/2016 INFLUENZA VACCINE (#1) 2018 DTaP,Tdap,and Td Vaccines (2 - Td) 04/08/2022 04/08/2012 documented as of this encounter Procedures Procedure Name Priority Date/Time Associated Diagnosis Comments CONSENT/REFUSAL FOR Routine 04/04/2019 5:51 AM BUNDLE BREAKER DIAGNOSIS AND TREATMENT documented in this encounter Results Not on filedocumented in this encounter Insurance Payer Benefit Plan / Subscriber ID Effective Phone Address Type Group Dates [facility] [id number] 2017-Prese Medicare Adv HEALTHCARE - HEALTHCARE DUAL nt PPO MANAGED COMPLETE MEDICARE [facility] xxxxxxxxx 2016-Prese Medicaid HEALTHCARE COMM PLUS nt PLAN - MANAGED MEDICAID documented as of this encounter
--- OUTSIDE RECORDS SUMMARY | 2019-04-25 16:55 | XMS REPORT ---
:1950 [facility] [address] [place] [address] Care Team Providers Name Role Phone Unavailable [...] mammographic images were evaluated by either a InforcePro M-Vu or a [employer] ImageChecker CAD (computer aided detection system). No [...] mammography in one year. Deshaun jacinto/jose:12/16/2017 15:55:39 Tie Inspector: Nneka Kahn MM, [facility] Mammographyletter sent: BIRADS 1-2 Normal Mammogram BI-RADS: 2 Benign
--- OUTSIDE RECORDS SUMMARY | 2019-04-25 16:56 | XMS REPORT | Summary of Care ---
:1950 Author Organization [facility] Address [address] [place] [address] Care Team Providers Name Role Phone Pcp, Patient Does Not Have A Primary Care Provider Reason for Referral (Routine) Status Reason Specialty Diagnoses / Procedures Referred By Referred To Contact Contact New Request Diagnoses Vomiting, intractability of vomiting not specified, presence of nausea not specified, unspecified vomiting type Chest pain, unspecified type Corby Dickinson, Pcp, Patient Procedures Discharge Follow-up: PCP PATIENT DOES NOT HAVE A PCP; 2 Weeks MD Does Not Have A [address] [place] [address] [id number] [phone] Phone: [phone] Radiology Services (STAT) Status Reason Specialty Diagnoses / Referred By Referred To Procedures Contact Contact New Request Diagnostic Diagnoses Vomiting, intractability of vomiting not specified, presence of nausea not specified, unspecified vomiting type Bryan Milligan, Radiology Procedures XR CHEST [address] [place], [place] [address] MRI/CAT Scan (STAT) Status Reason Specialty Diagnoses / Referred By Referred To Procedures Contact Contact New Request Diagnostic Diagnoses Vomiting, intractability of vomiting not specified, presence of nausea not specified, unspecified vomiting type Bryan Milligan, Radiology Procedures CT ABDOMEN PELVIS W CONTRAST [address] [place], [place] [address] MRI/CAT Scan (STAT) Status Reason Specialty Diagnoses / Referred By Referred To Procedures Contact Contact New Request Diagnostic Diagnoses Vomiting, intractability of vomiting not specified, presence of nausea not specified, unspecified vomiting type Bryan Milligan, Radiology Procedures CT HEAD WO CONTRAST [address] [place] [address] [place] [address] Reason for Visit Reason Comments Vomiting Auth/Cert Status Reason Specialty Diagnoses / Referred By Referred To Procedures Contact Contact [facility] [address] [place] [address] [place] [address] Encounter Details Date Type Department Care Team Description 04/04/2019 - Emergency [facility] Surgery Bryan Milligan MD [address] [place] [address] [place] [id number] Chest pain 04/05/2019 Unit Corby Dickinson MD [address] [place] [id number] [place] [address] [address] [place], [place] [id number] Allergies No Known Allergiesdocumented as of this encounter (statuses as of 04/05/2019) Medications Medication Sig Dispensed Refills Start Date End Date Status glimepiride 4 mg Take 4 mg by 0 Active tablet mouth daily with breakfast. atorvastatin 10 mg Take 10 mg by 0 Active tablet mouth at bedtime. clopidogrel 75 mg Take 75 mg by 0 Active tablet mouth daily. acetaminophen-codei Take 1 tablet 20 tablet 0 12/06/2017 Active ne (TYLENOL-CODEINE by mouth #3) 300-30 mg every 6 (six) tablet hours as needed for Pain (scale 4-6). metoclopramide HCl Take 1 tablet 20 tablet 0 05/03/2018 Active 10 mg by mouth tabletIndications: every 6 (six) Hiccoughs hours. famotidine 20 mg Take 1 tablet 60 tablet 2 04/05/2019 Active tabletIndications: by mouth 2 Vomiting, (two) times intractability of daily. vomiting not specified, presence of nausea not specified, unspecified vomiting type, Chest pain, unspecified type sucralfate 1 gram Take 1 tablet 120 tablet 1 04/05/2019 Active tabletIndications: by mouth Hiccoughs before meals and at bedtime. metFORMIN 1,000 mg Take 1,000 mg 0 04/05/19 Discontinued tablet by mouth 2 20 (two) times daily with meals. lisinopril 20 mg Take 20 mg by 0 04/05/19 Discontinued tablet mouth daily. 20 ondansetron 4 mg Take 1 tablet 12 tablet 0 02/17/2018 04/04/19 Discontinued disintegrating by mouth 20 tablet every 8 (eight) hours as needed for Nausea and Vomiting (N/V). sulfamethoxazole-tr Take 1 tablet 20 tablet 0 02/17/2018 04/04/19 Discontinued imethoprim 800-160 by mouth 20 mg per tablet every 12 (twelve) hours. promethazine-codein Take 5 mL by 120 mL 0 04/04/2018 04/04/19 Discontinued e 6.25-10 mg/5 mL mouth 4 20 syrupIndications: (four) times Flu-like symptoms daily as needed for Cough. sucralfate 1 gram Take 1 tablet 30 tablet 0 05/03/2018 04/05/19 Discontinued tabletIndications: by mouth 20 (Reorder) Hiccoughs before meals and at bedtime. documented as of this encounter (statuses as of 04/05/2019) Active Problems Problem Noted Date Chest pain 04/04/2019 Morbid obesity 04/04/2019 Type 2 diabetes mellitus without complication, without long-term current 04/04 use of insulin Essential hypertension 04/04/2019 HLD (hyperlipidemia) 04/04/2019 History of arterial ischemic stroke 04/04/2019 Abnormal fasting glucose 05/07/2013 Overview: Fasting glucose- 326 Encounter for routine gynecological examination 04/08/2013 Overview: ICD10 Diagnosis Term Hand Therapist Utility Tubal ligation status 04/08/2013 Asymptomatic varicose veins 04/08/2013 Leg cramps 04/08/2013 Overweight 04/08/2013 Overview: ICD10 Diagnosis Term Hand Therapist Utility documented as of this encounter (statuses as of 04/05/2019) Immunizations Name Administration Dates Next Due Tdap [...] of this encounter Last Filed Vital Signs Vital Sign Reading Time Taken Comments Blood Pressure 108/60 04/05/2019 11:41 AM DISABILITY INSURANCE CLAIM EXAMINER Pulse 64 04/05/2019 11:41 AM DISABILITY INSURANCE CLAIM EXAMINER Temperature 36.1 C (97 F) 04/05/2019 11:41 AM DISABILITY INSURANCE CLAIM EXAMINER Respiratory Rate 16 04/05/2019 11:41 AM DISABILITY INSURANCE CLAIM EXAMINER Oxygen Saturation 93% 04/05/2019 11:41 AM DISABILITY INSURANCE CLAIM EXAMINER Inhaled Oxygen Concentration - - Weight 84.4 kg (186 lb) 04/04/2019 8:42 AM DISABILITY INSURANCE CLAIM EXAMINER Height 134.6 cm (4' 5") 04/04/2019 8:42 AM DISABILITY INSURANCE CLAIM EXAMINER Body Mass Index 46.55 04/04/2019 8:42 AM DISABILITY INSURANCE CLAIM EXAMINER documented in this encounter Discharge Instructions Lisa Luna - 04/05/2019 11:35 AM CSTPlease make a follow up appointment with your Primary Care Provider when you are discharged from [facility]. BILITY INSURANCE CLAIM EXAMINER AttachmentsThe following attachments cannot be sent through Care Everywhere.Chest Pain, Noncardiac (American)Chest Pain, Uncertain Cause (American )Famotidine tablets or gelcaps (American)documented in this encounter Progress Notes Anahi Naik LBSW - 04/05/2019 2:21 PM CSTSubjective Patient ID: Lorri Dotson is a 68 year old female. 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 MPOA: No Living Arrangement: Home Address of living arrangement : [address] [facility] [address] Persons living in home: Self Barriers to returning home: None Baseline functional status- ambulation: Independent Functional status-baseline personal care: Independent Baseline functional status- driving: Independent Baseline functional status- grocery shopping: Independent Functional status-baseline housekeeping: Independent Functional status-baseline meal prep: Independent Current functional status same as prior: Yes Home Health Care Agency: No Provider Services: No DME Company: No Equipment: None Hemodialysis: No Community resources utilized: None Funding Resources: Medicaid HMO Prescription coverage plan: Medicaid-3 slots Pharmacy where meds are filled: Other Other pharmacy[facility] Anticipated services prior to disharge: Continue Medical Eval Expected mode of discharge transportation: Same as support system Additional Recommendations for DC: Medical clearance Additional info required for discharge planning: Pending medical evaluation Recommended discharge plan: Home SFA Complete: Social Functional Assessment complete: Yes Alcohol Use Screening (AUDIT-C) How often do you have a drink containing alcohol?: Never SCORE: 0 Did patient elect to have resources provided: No Role of Care Management explained. Any issues or concerns with obtaining/affording your medications at home: no. 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 Review of Systems Objective Physical Exam Assessment/Plan Home, no needs JEISON Wright Prepress Operator - Care Management [facility] [phone] [email or web address] Brenda Witt MD - 04/05/2019 8:14 AM CST [facility] Cardiology progress note Date of Service: 04/05/2019 Lorri Dotson is a 68 years old female hospitalized for chest pain and epigastric pain. Pain has resolved. PHYSICAL EXAM Vitals: 04/04/19 1940 04/04/19 2318 04/05/19 0514 04/05/19 0750 BP: 107/48 100/48 113/61 117/70 Pulse: 75 73 71 83 Resp: Temp: 36.1 C (97 F) 37.1 C (98.7 F) 36.1 C (97 F) 35.6 C (96 F) TempSrc: Tympanic Tympanic Tympanic Tympanic SpO2: 93% 96% 95% 94% Weight: Height: General: alert and oriented x 3 (person, place and date/time); no apparent distress HEENT: normocephalic atraumatic Neck: supple, no lymphadenopathy, no bruits, no JVD Lungs: clear to auscultation bilaterally Cardio: S1, S2, normal rate, regular; no murmurs, rubs or gallops Abdomen: non-distended : not examined Rectal: not examined Extremities: no clubbing, cyanosis, or edema Skin: no rashes Neuro: no focal deficits Medications: I have reviewed the patient's medications; see Medication Reconciliation. Labs: I have reviewed the patient's labs. ASSESSMENT AND PLAN Principal Problem: Chest pain Active Problems: Morbid obesity Type 2 diabetes mellitus without complication, without long-term current use of insulin Essential hypertension HLD (hyperlipidemia) History of arterial ischemic stroke Chest pain/epigastric pain--likely GI etiology. The location is predominantly epigastric area with tender, worse after taking pills. Will get ECHO to rule out structural heart disease. Recommend GI evaluation. Chest pain has resolved. HTN--controlled DM--per primary team Morbid obesity--weight loss discussed Brenda Vasquez MD, FACC, FACP, [employer] Tech, Division of Cardiology [facility] documented in this encounter Plan of Treatment Health Maintenance Due Date Last Done Comments HEPATITIS C (HCV) SCREEN 1950 EYE EXAM 04/19/1961 URINE MICROALBUMIN 04/19/1961 FOOT EXAM 04/19/1969 COLONOSCOPY 04/19/2001 Zoster Recombinant Vaccine 04/19/2001 (SHINGRIX) (1 of 2) Breast Cancer Screening 02/14/2012 02/13/2011 (MAMMOGRAM) LDL-C 05/06/2014 05/06/2013 Medicare Wellness Visit 04/19/2016 Osteoporosis Screening 04/19/2016 PNEUMOCOCCAL VACCINES 65+ (1 of 2 04/19/2016 - PCV13) INFLUENZA VACCINE (#1) 2018 HgA1C 10/03/2019 04/04/2019 CREATININE (SERUM) 04/04/2020 04/04/2019, 05/02/2018, 02/17/2018, Additional history exists DTaP,Tdap,and Td Vaccines (2 - Td) 04/08/2022 04/08/2012 documented as of this encounter Procedures Procedure Name Priority Date/Time Associated Diagnosis Comments POCT GLUCOSE Routine 04/05/2019 11:44 Results for this (AUTOMATED) AM DISABILITY INSURANCE CLAIM EXAMINER procedure are in the results section. ECHO ROUTINE Routine 04/05/2019 10:01 Chest pain on W/DOPPLER COLOR AM DISABILITY INSURANCE CLAIM EXAMINER breathing POCT GLUCOSE Routine 04/05/2019 7:54 Results for this (AUTOMATED) AM DISABILITY INSURANCE CLAIM EXAMINER procedure are in the results section. CBC WITH Routine 04/05/2019 4:32 Results for this DIFFERENTIAL AM DISABILITY INSURANCE CLAIM EXAMINER procedure are in the results section. CBC WITH Routine 04/05/2019 4:32 Results for this DIFFERENTIAL AM DISABILITY INSURANCE CLAIM EXAMINER procedure are in the results section. BASIC METABOLIC Routine 04/05/2019 4:32 Results for this PANEL (NA, K, CL, AM DISABILITY INSURANCE CLAIM EXAMINER procedure are in CO2, GLUCOSE, BUN, the results CREATININE, CA) section. TROPONIN I Add-on 04/05/2019 4:32 Results for this AM DISABILITY INSURANCE CLAIM EXAMINER procedure are in the results section. POCT GLUCOSE Routine 04/04/2019 7:45 Results for this (AUTOMATED) PM DISABILITY INSURANCE CLAIM EXAMINER procedure are in the results section. POCT GLUCOSE Routine 04/04/2019 4:37 Results for this (AUTOMATED) PM DISABILITY INSURANCE CLAIM EXAMINER procedure are in the results section. POCT GLUCOSE Routine 04/04/2019 12:04 Results for this (AUTOMATED) PM DISABILITY INSURANCE CLAIM EXAMINER procedure are in the results section. CT ABDOMEN PELVIS W STAT 04/04/2019 7:21 Vomiting, Results for this CONTRAST AM DISABILITY INSURANCE CLAIM EXAMINER intractability of procedure are in vomiting not the results specified, presence of section. nausea not specified, unspecified vomiting type CT HEAD WO CONTRAST STAT 04/04/2019 7:20 Vomiting, Results for this AM DISABILITY INSURANCE CLAIM EXAMINER intractability of procedure are in vomiting not the results specified, presence of section. nausea not specified, unspecified vomiting type XR CHEST 1 VW STAT 04/04/2019 6:42 Vomiting, Results for this AM DISABILITY INSURANCE CLAIM EXAMINER intractability of procedure are in vomiting not the results specified, presence of section. nausea not specified, unspecified vomiting type URINALYSIS STAT 04/04/2019 6:21 Vomiting, Results for this AM DISABILITY INSURANCE CLAIM EXAMINER intractability of procedure are in vomiting not the results specified, presence of section. nausea not specified, unspecified vomiting type CBC WITH STAT 04/04/2019 6:15 Vomiting, Results for this DIFFERENTIAL AM DISABILITY INSURANCE CLAIM EXAMINER intractability of procedure are in vomiting not the results specified, presence of section. nausea not specified, unspecified vomiting type N-TERMINAL PRO-BNP STAT 04/04/2019 6:15 Vomiting, Results for this AM DISABILITY INSURANCE CLAIM EXAMINER intractability of procedure are in vomiting not the results specified, presence of section. nausea not specified, unspecified vomiting type ACTIVATED PARTIAL STAT 04/04/2019 6:15 Vomiting, Results for this THRMPLAS KATRIN AM DISABILITY INSURANCE CLAIM EXAMINER intractability of procedure are in vomiting not the results specified, presence of section. nausea not specified, unspecified vomiting type PROTHROMBIN TIME / STAT 04/04/2019 6:15 Vomiting, Results for this INR AM DISABILITY INSURANCE CLAIM EXAMINER intractability of procedure are in vomiting not the results specified, presence of section. nausea not specified, unspecified vomiting type GLYCOSYLATED Add-on 04/04/2019 6:15 Results for this HEMOGLOBIN (A1C) AM DISABILITY INSURANCE CLAIM EXAMINER procedure are in the results section. CBC WITH Routine 04/04/2019 6:15 Vomiting, Results for this DIFFERENTIAL AM DISABILITY INSURANCE CLAIM EXAMINER intractability of procedure are in vomiting not the results specified, presence of section. nausea not specified, unspecified vomiting type BASIC METABOLIC STAT 04/04/2019 6:15 Vomiting, Results for this PANEL (NA, K, CL, AM DISABILITY INSURANCE CLAIM EXAMINER intractability of procedure are in CO2, GLUCOSE, BUN, vomiting not the results CREATININE, CA) specified, presence of section. nausea not specified, unspecified vomiting type HEPATIC FUNCTION STAT 04/04/2019 6:15 Vomiting, Results for this PANEL (00973) AM DISABILITY INSURANCE CLAIM EXAMINER intractability of procedure are in (ALB,T.PRO,BILI vomiting not the results T,BU/BC,ALT,AST,ALK specified, presence of section. PHOS) nausea not specified, unspecified vomiting type TROPONIN I STAT 04/04/2019 6:15 Vomiting, Results for this AM DISABILITY INSURANCE CLAIM EXAMINER intractability of procedure are in vomiting not the results specified, presence of section. nausea not specified, unspecified vomiting type LIPASE Add-on 04/04/2019 6:15 Results for this AM DISABILITY INSURANCE CLAIM EXAMINER procedure are in the results section. EKG-12 LEAD Routine 04/04/2019 6:14 AM DISABILITY INSURANCE CLAIM EXAMINER EKG-12 LEAD STAT 04/04/2019 5:59 AM DISABILITY INSURANCE CLAIM EXAMINER NOTICE OF PRIVACY Routine 04/04/2019 5:52 PRACTICES AM DISABILITY INSURANCE CLAIM EXAMINER documented in this encounter Results POCT GLUCOSE (AUTOMATED) (04/05/2019 11:44 AM DISABILITY INSURANCE CLAIM EXAMINER) Pathologist [facility] POCT GLU 119 (H) 70 - 110 mg/dL [facility] Specimen Blood Performing Organization Address [facility] [place] Phone Number [facility] CLIA: [id number], [address] [place] [address] POCT GLUCOSE (AUTOMATED) (04/05/2019 7:54 AM DISABILITY INSURANCE CLAIM EXAMINER) Pathologist [facility] POCT GLU 194 (H) 70 - 110 mg/dL [facility] Specimen Blood Performing Organization Address [facility] [place] Phone Number [facility] CLIA: [id number], [address] [place] [address] TROPONIN I (04/05/2019 4:32 AM DISABILITY INSURANCE CLAIM EXAMINER) [facility] TROPONIN I 0.003 <=0.034 ng/mL [facility] Specimen Blood - ARM, LEFT Narrative Performed At Equal or Less than 0.034 ng/ml---Normal [facility] Note: Cardiac troponin begins to rise 3-4 hours after the onset of ischemia. Repeat in 4-6 hours if the sample was drawn within 3-4 hours of the onset of the symptom and found normal. Between 0.035 and 0.120 ng/mL--- Borderline. Questionable myocardial injury or necrosis Note: Serial measurement may be necessary to confirm or exclude the diagnosis of myocardial injury or necrosis; Clinical correlation (symptoms, EKGs, imaging studies, and others) required; Repeat in 4-6 hours if clinically indicated. Equal or Higher than 0.121 ng/mL---Abnormal. Myocardial Injury or Necrosis Likely Biotin has been reported to cause a negative bias, interpret results relative to patient's use of biotin. Performing Organization Address [facility] Phone Number [facility] CLIA: [id number], [address] [place] [address] CBC WITH DIFFERENTIAL (04/05/2019 4:32 AM DISABILITY INSURANCE CLAIM EXAMINER) [facility] WBC 7.14 4.30 - 11.10 [facility] 10*3/L [facility] RBC 4.17 3.93 - 5.25 [facility] 10*6/L [facility] HGB 12.4 11.6 - 15.0 [facility] g/dL [facility] HCT 39.5 35.7 - 45.2 % [facility] MCV 94.7 80.6 - 95.5 fL [facility] MCH 29.7 25.9 - 32.8 pg [facility] MCHC 31.4 (L) 31.6 - 35.1 [facility] g/dL [facility] RDW-SD 45.6 39.0 - 49.9 fL [facility] RDW-CV 13.2 12.0 - 15.5 % [facility] PLT 232 166 - 358 [facility] 10*3/L [facility] MPV 10.9 9.5 - 12.9 fL [facility] NRBC/100 WBC 0.0 0.0 - 10.0 /100 [facility] WBCs [facility] NRBC x10^3 <0.01 10*3/L [facility] GRAN MAT (NEUT) % 62.0 % [facility] IMM GRAN % 0.40 % [facility] LYMPH % 26.6 % [facility] MONO % 8.8 % [facility] EOS % 1.5 % [facility] BASO % 0.7 % [facility] GRAN MAT x10^3(ANC) 4.42 1.88 - 7.09 [facility] 10*3/uL [facility] IMM GRAN x10^3 0.03 0.00 - 0.06 [facility] 10*3/uL [facility] LYMPH x10^3 1.90 1.32 - 3.29 [facility] 10*3/uL [facility] MONO x10^3 0.63 0.33 - 0.92 [facility] 10*3/uL [facility]ITAL [facility] EOS x10^3 0.11 0.03 - 0.39 [facility] 10*3/uL [facility]ITAL [facility] BASO x10^3 0.05 0.01 - 0.07 [facility] 10*3/uL [facility] Specimen Blood - ARM, LEFT Performing Organization Address City/State/Zipcode Phone Number [facility] CLIA: [id number], [address] [place] [address] Basic Metabolic Panel (NA, K, CL, CO2, GLUCOSE, BUN, CREATININE, CA) (2019 4:32 AM DISABILITY INSURANCE CLAIM EXAMINER) NA 136 135 - 145 [facility] mmol/L [facility] K 4.4 3.5 - 5.0 [facility] mmol/L [facility] CL 100 98 - 108 mmol/L [facility] CO2 TOTAL 24 23 - 31 mmol/L [facility] AGAP 12 2 - 16 [facility] BUN 18 7 - 23 mg/dL [facility] GLUCOSE 177 (H) 70 - 110 mg/dL [facility] CREATININE 0.60 0.50 - 1.04 [facility] mg/dL [facility] CALCIUM 8.7 8.6 - 10.6 [facility] mg/dL [facility] eGFR Calculation 99.7 mL/min/1.73m2 [facility] ([facility] LABORATORY [place]) eGFR Calculation 120.9 mL/min/1.73m2 [facility] () [facility] Specimen Blood - ARM, LEFT Narrative Performed At Association of Glomerular Filtration Rate (GFR) [facility] and Staging of Kidney Disease* + + +- + | GFR (mL/min/1.73 m2) | With Kidney Damage | Without Kidney Damage + + +- + | >90 | Stage one | Normal + + +- + | 60-89 | Stage two | Decreased GFR + + +- + | 30-59 | Stage three | Stage three + + +- + | 15-29 | Stage four | Stage four + + +- + | <15 (or dialysis) | Stage five | Stage five + + +- + *Each stage assumes the associated GFR level has been in effect for at least three months. Stages 1 to 5, with or without kidney disease, indicate chronic kidney disease. Notes: Determination of stages one and two (with eGFR >59mL/min/1.73 m2) requires estimation of kidney damage for at least three months as defined by structural or functional abnormalities of the kidney, manifested by either: Pathological abnormalities or Markers of kidney damage (including abnormalities in the composition of the blood or urine or abnormalities in imaging tests). Performing Organization Address City/State/Zipcode Phone Number [facility] CLIA: [id number], [address] [place] [address] POCT GLUCOSE (AUTOMATED) (04/04/2019 7:45 PM DISABILITY INSURANCE CLAIM EXAMINER) POCT GLU 162 (H) 70 - 110 mg/dL [facility] Specimen Blood Performing Organization Address [facility] Phone Number [facility] CLIA: [id number], [address] [place] [address] POCT GLUCOSE (AUTOMATED) (04/04/2019 4:37 PM DISABILITY INSURANCE CLAIM EXAMINER) POCT GLU 119 (H) 70 - 110 mg/dL [facility] Specimen Blood Performing Organization Address [facility] Phone Number [facility] CLIA: [id number], [address] [place] [address] POCT GLUCOSE (AUTOMATED) (04/04/2019 12:04 PM DISABILITY INSURANCE CLAIM EXAMINER) POCT GLU 161 (H) 70 - 110 mg/dL [facility] Specimen Blood Performing Organization Address [facility] Phone Number [facility] CLIA: [id number], [address] [place] [address] LABORATORY Hospital [facility] CT ABDOMEN PELVIS W CONTRAST (04/04/2019 7:21 AM DISABILITY INSURANCE CLAIM EXAMINER) Specimen Impressions Performed At PACS/VR/DOSE Hepatic steatosis. Unchanged 4 mm nonobstructing right renal stone. 2.4 cm left adrenal nodule stable since 12/19/2016 and likely benign.. Preliminary Report Dictated by Resident: Teresa Fritz I, Barb Lucero MD., have reviewed this study and agree with the above report. Narrative Performed At EXAM: CT ABDOMEN AND PELVIS WITH CONTRAST PACS/VR/DOSE HISTORY: 68-year-old female complaining of epigastric pain. COMPARISON: Abdominal CT study dated 12/19/2016. TECHNIQUE AND FINDINGS: Contiguous axial imaging from the level of the lung bases through the pubic symphysis was performed after the uncomplicated administration of 120 cc of intravenous Omnipaque contrast. Coronal and sagittal reconstructions were obtained. Auto mA and/or iterative reconstruction were used to reduce radiation dose. FINDINGS: LOWER THORAX: The lungs bases are clear. No cardiomegaly. LIVER: No focal hepatic lesions. Normal contour. The liver is diffusely hypoattenuating and enlarged at 20.6 cm. GALLBLADDER AND BILIARY TREE: No gallbladder wall thickening. No biliary duct dilatation. PANCREAS: No ductal dilation or masses. SPLEEN: No splenomegaly. ADRENAL GLANDS: Unchanged 2.4 cm left adrenal nodule. KIDNEYS: Unchanged 3.2 cm right renal simple cyst. No hydronephrosis or masses. Unchanged 4 mm right renal nonobstructing stone. PELVIS/BLADDER: The urinary bladder is not well-distended. The uterus is unremarkable. GI TRACT: No dilation or wall thickening. VESSELS: Unremarkable. LYMPH NODES: No lymphadenopathy. PERITONEUM AND RETROPERITONEUM: No free air or fluid. BONES AND SOFT TISSUES: No suspicious lytic or sclerotic bony lesions. Procedure Note [facility], Radiant Results Inft User - 04/04/2019 3:21 PM DISABILITY INSURANCE CLAIM EXAMINER EXAM: CT ABDOMEN AND PELVIS WITH CONTRAST HISTORY: 68-year-old female complaining of epigastric pain. COMPARISON: Abdominal CT study dated 12/19/2016. TECHNIQUE AND FINDINGS: Contiguous axial imaging from the level of the lung bases through the pubic symphysis was performed after the uncomplicated administration of 120 cc of intravenous Omnipaque contrast. Coronal and sagittal reconstructions were obtained. Auto mA and/or iterative reconstruction were used to reduce radiation dose. FINDINGS: LOWER THORAX: The lungs bases are clear. No cardiomegaly. LIVER: No focal hepatic lesions. Normal contour. The liver is diffusely hypoattenuating and enlarged at 20.6 cm. GALLBLADDER AND BILIARY TREE: No gallbladder wall thickening. No biliary duct dilatation. PANCREAS: No ductal dilation or masses. SPLEEN: No splenomegaly. ADRENAL GLANDS: Unchanged 2.4 cm left adrenal nodule. KIDNEYS: Unchanged 3.2 cm right renal simple cyst. No hydronephrosis or masses. Unchanged 4 mm right renal nonobstructing stone. PELVIS/BLADDER: The urinary bladder is not well-distended. The uterus is unremarkable. GI TRACT: No dilation or wall thickening. VESSELS: Unremarkable. LYMPH NODES: No lymphadenopathy. PERITONEUM AND RETROPERITONEUM: No free air or fluid. BONES AND SOFT TISSUES: No suspicious lytic or sclerotic bony lesions. IMPRESSION Hepatic steatosis. Unchanged 4 mm nonobstructing right renal stone. 2.4 cm left adrenal nodule stable since 12/19/2016 and likely benign.. Preliminary Report Dictated by Resident: Teresa Fritz I, Barb Lucero MD., have reviewed this study and agree with the above report. Performing Organization Address City/State/Zipcode Phone Number PACS/VR/DOSE CT HEAD WO CONTRAST (04/04/2019 7:20 AM DISABILITY INSURANCE CLAIM EXAMINER) Specimen Impressions Performed At PACS/VR/DOSE No acute intracranial findings. 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 Preliminary Report Dictated by Resident: Tevin Lemos MD., have reviewed this study and agree with the above report. Narrative Performed At CT HEAD WO CONTRAST PACS/VR/DOSE HISTORY: Headache, acute, normal neuro exam COMPARISON: CT Max face dated 12/06/2017. TECHNIQUE: Noncontrast CT scan of the head with coronal and sagittal reformats was performed. FINDINGS: Changes of right frontal craniotomy with underlying right frontal lobe transformation are seen. Unchanged bilateral metallic densities at the level of the cavernous ICA, most likely represent prior coiling and clipping The ventricles and cerebral sulci are normal in caliber and configuration. No hydrocephalus, midline shift or pathological extra-axial fluid collection is present. The basal cisterns are unremarkable. There is no acute intracranial hemorrhage or significant mass effect. The mastoid air cells and paranasal air sinuses are clear. The calvarium and central skull base are unremarkable. Procedure Note [facility], Radiant Results Inft User - 04/04/2019 9:55 AM DISABILITY INSURANCE CLAIM EXAMINER CT HEAD WO CONTRAST HISTORY: Headache, acute, normal neuro exam COMPARISON: CT Max face dated 12/06/2017. TECHNIQUE: Noncontrast CT scan of the head with coronal and sagittal reformats was performed. FINDINGS: Changes of right frontal craniotomy with underlying right frontal lobe transformation are seen. Unchanged bilateral metallic densities at the level of the cavernous ICA, most likely represent prior coiling and clipping The ventricles and cerebral sulci are normal in caliber and configuration. No hydrocephalus, midline shift or pathological extra-axial fluid collection is present. The basal cisterns are unremarkable. There is no acute intracranial hemorrhage or significant mass effect. The mastoid air cells and paranasal air sinuses are clear. The calvarium and central skull base are unremarkable. IMPRESSION No acute intracranial findings. 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 Preliminary Report Dictated by Resident: Teresa Fritz I, Tevin Aaron MD., have reviewed this study and agree with the above report. Performing Organization Address [facility] [place] Phone Number PACS/VR/DOSE XR CHEST 1 VW (04/04/2019 6:42 AM DISABILITY INSURANCE CLAIM EXAMINER) Specimen Impressions Performed At PACS/VR/DOSE No acute cardiopulmonary process. Preliminary Report Dictated by Resident: Mi De Santiago I, Barb Lucero MD., have reviewed this study and agree with the above report. Narrative Performed At XR CHEST 1 VW PACS/VR/DOSE HISTORY: chest pain COMPARISON: X-ray dated 05/02/2018 FINDINGS: The lungs are well expanded and clear. The costophrenic angles are clear. The heart is normal in size. Atherosclerotic calcifications in the aortic arc. No pneumothorax is found. Degenerative changes are seen in thoracic spine. Procedure Note [facility], Radiant Results Inft User - 04/04/2019 9:32 AM DISABILITY INSURANCE CLAIM EXAMINER XR CHEST 1 VW HISTORY: chest pain COMPARISON: X-ray dated 05/02/2018 FINDINGS: The lungs are well expanded and clear. The costophrenic angles are clear. The heart is normal in size. Atherosclerotic calcifications in the aortic arc. No pneumothorax is found. Degenerative changes are seen in thoracic spine. IMPRESSION No acute cardiopulmonary process. Preliminary Report Dictated by Resident: Mi De Santiago I, Barb Lucero MD., have reviewed this study and agree with the above report. Performing Organization Address [facility] [place] Phone Number [facility]/VR/DOSE Urinalysis (04/04/2019 6:21 AM DISABILITY INSURANCE CLAIM EXAMINER) APPEARANCE Hazy (A) Clear [facility] COLOR Yellow Yellow [facility] PH 5.0 4.8 - 8.0 [facility] SP GRAVITY 1.019 1.003 - 1.030 [facility] GLU U QUAL Normal Normal [facility] BLOOD Negative Negative [facility] KETONES Negative Negative [facility] PROTEIN Negative Negative [facility] UROBILIN Normal Normal [facility] BILIRUBIN Negative Negative [facility] NITRITE Negative Negative [facility] LEUK ALICE Negative Negative [facility] RBC/HPF 1 0 - 3 HPF [facility] WBC/HPF 2 0 - 5 HPF [facility] BACTERIA Moderate (A) Negative [facility] MUCOUS Slight (A) Negative LPF [facility] SQ EPITH 24 HPF [facility] HYAL CAST 1 <=2 LPF [facility] Specimen Urine - URINE, CLEAN CATCH Performing Organization Address [facility] [place] Phone Number [facility] CLIA: [id number], [address] [place] [address] Glycosylated Hemoglobin (A1C) (04/04/2019 6:15 AM DISABILITY INSURANCE CLAIM EXAMINER) HGB A1C 7.9 (H) 4.0 - 6.0 % NGSP [facility] Specimen Blood - VENOUS Narrative Performed At %A1C (NGSP) Interpretation (ADA) [facility] 4.8-5.6 Normal or (Non-Diabetic Range) 5.7-6.4 Increased Risk (Pre-Diabetic) >6.5 Diabetes Indicated Performing Organization Address [facility] [place] Phone Number [facility] CLIA: [id number], [address] [place] [address] LIPASE (04/04/2019 6:15 AM DISABILITY INSURANCE CLAIM EXAMINER) LIPASE 153 0 - 220 U/L [facility] Specimen Blood - VENOUS Performing Organization Address [facility] Phone Number [facility] CLIA: [id number], [address] [place] [address] CBC WITH DIFFERENTIAL (04/04/2019 6:15 AM DISABILITY INSURANCE CLAIM EXAMINER) WBC 9.52 4.30 - 11.10 [facility] 10*3/L [facility] RBC 4.51 3.93 - 5.25 [facility] 10*6/L [facility] HGB 13.3 11.6 - 15.0 g/dL [facility] HCT 42.1 35.7 - 45.2 % [facility] MCV 93.3 80.6 - 95.5 fL [facility] MCH 29.5 25.9 - 32.8 pg [facility] MCHC 31.6 31.6 - 35.1 g/dL [facility] RDW-SD 45.4 39.0 - 49.9 fL [facility] RDW-CV 13.2 12.0 - 15.5 % [facility] PLT 245 166 - 358 [facility] 10*3/L HOSP[facility] MPV 9.5 9.5 - 12.9 fL [facility] NRBC/100 WBC 0.0 0.0 - 10.0 /100 [facility] WBCs [facility] NRBC x10^3 <0.01 10*3/L [facility] GRAN MAT (NEUT) % 72.3 % [facility] IMM GRAN % 0.40 % [facility] LYMPH % 20.5 % [facility] MONO % 5.0 % [facility] EOS % 1.4 % [facility] BASO % 0.4 % [facility] GRAN MAT x10^3(ANC) 6.88 1.88 - 7.09 [facility] 10*3/uL HOSPITAL [facility] IMM GRAN x10^3 0.04 0.00 - 0.06 [facility] 10*3/uL [facility] LYMPH x10^3 1.95 1.32 - 3.29 [facility] 10*3/uL [facility] MONO x10^3 0.48 0.33 - 0.92 [facility] 10*3/uL H[facility]ITAL [facility] EOS x10^3 0.13 0.03 - 0.39 [facility] 10*3/uL [facility]ITAL [facility] BASO x10^3 0.04 0.01 - 0.07 [facility] 10*3/uL [facility] Specimen Blood - VENOUS Performing Organization Address City/State/Zipcode Phone Number [facility] CLIA: [id number], [address] [place] [address] N-TERMINAL PRO-BNP (04/04/2019 6:15 AM DISABILITY INSURANCE CLAIM EXAMINER) NT-proBNP 31 <=125 pg/mL [facility] Specimen Blood - VENOUS Narrative Performed At [facility] has been reported to cause a negative [facility] bias, interpret results relative to patient's use of biotin. Performing Organization Address City/State/Zipcode Phone Number [facility] CLIA: [id number], [address] [place] [phone] Prothrombin Time (PT) / INR (04/04/2019 6:15 AM DISABILITY INSURANCE CLAIM EXAMINER) Pathologist [facility] PROTIME PATIENT 13.2 12.0 - 14.7 [facility] LABORATORY INR 1.1Comment: Normal [facility] INR <1.1; Warfarin [facility] Therapeutic range LABORATORY 2.0 to 3.0 or 2.5 to 3.5, depending upon the indications. Specimen Blood - VENOUS Performing Organization Address City/[facility], [place] Phone Number [facility] CLIA: [id number], [address] [place] [address] aPTT (04/04/2019 6:15 AM DISABILITY INSURANCE CLAIM EXAMINER) [facility] APTT Patient 27 23 - 38 Seconds [facility] Specimen Blood - VENOUS Narrative Performed At [facility] patient population mean normal value [facility] for aPTT is 30 seconds. Performing Organization Address [facility] Phone Number [facility] CLIA: [id number], [address] [place] [address] Troponin I (04/04/2019 6:15 AM DISABILITY INSURANCE CLAIM EXAMINER) [facility] TROPONIN I 0.001 <=0.034 ng/mL [facility] Specimen Blood - VENOUS Narrative Performed At Equal or Less than 0.034 ng/ml---Normal [facility] Note: Cardiac troponin begins to rise 3-4 hours after the onset of ischemia. Repeat in 4-6 hours if the sample was drawn within 3-4 hours of the onset of the symptom and found normal. Between 0.035 and 0.120 ng/mL--- Borderline. Questionable myocardial injury or necrosis Note: Serial measurement may be necessary to confirm or exclude the diagnosis of myocardial injury or necrosis; Clinical correlation (symptoms, EKGs, imaging studies, and others) required; Repeat in 4-6 hours if clinically indicated. Equal or Higher than 0.121 ng/mL---Abnormal. Myocardial Injury or Necrosis Likely Biotin has been reported to cause a negative bias, interpret results relative to patient's use of biotin. Performing Organization Address City/[facility] [place] Phone Number [facility] CLIA: [id number], [address] [place] [address] LABORATORY Hospital [facility] Hepatic Function Panel (ALB, T.PRO, BILI T, BU/BC, ALT, AST, ALK PHOS) (2019 6:15 AM DISABILITY INSURANCE CLAIM EXAMINER) TOTAL BILI 0.4 0.1 - 1.1 mg/dL [facility] BILI UNCON 0.3 0.1 - 1.1 mg/dL [facility] BILI CONJ 0.0 0.0 - 0.3 mg/dL [facility] T PROTEIN 7.9 6.3 - 8.2 g/dL [facility] ALBUMIN 4.8 3.5 - 5.0 g/dL [facility] ALK PHOS 70 34 - 122 U/L [facility] ALTv 32 5 - 35 U/L [facility] AST(SGOT) 38 13 - 40 U/L [facility] Specimen Blood - VENOUS Performing Organization Address City/State/Zipcode Phone Number [facility] CLIA: [id number], [address] [place] [address] LABORATORY Hospital [facility] Basic Metabolic Panel (NA, K, CL, CO2, GLUCOSE, BUN, CREATININE, CA) (2019 6:15 AM DISABILITY INSURANCE CLAIM EXAMINER) Pathologist [facility] NA 138 135 - 145 [facility] mmol/L [facility] K 4.5 3.5 - 5.0 [facility] mmol/L [facility] CL 101 98 - 108 mmol/L [facility] CO2 TOTAL 24 23 - 31 mmol/L [facility] AGAP 13 2 - 16 [facility] BUN 20 7 - 23 mg/dL [facility] GLUCOSE 199 (H) 70 - 110 mg/dL [facility] CREATININE 0.65 0.50 - 1.04 [facility] mg/dL [facility] CALCIUM 9.6 8.6 - 10.6 [facility] mg/dL [facility] eGFR Calculation 90.9 mL/min/1.73m2 [facility] ([facility] LABORATORY [place]) eGFR Calculation 110.2 mL/min/1.73m2 [facility] () [facility] Specimen Blood - VENOUS Narrative Performed At Association of Glomerular Filtration Rate (GFR) [facility] and Staging of Kidney Disease* + + +- + | GFR (mL/min/1.73 m2) | With Kidney Damage | Without Kidney Damage + + +- + | >90 | Stage one | Normal + + +- + | 60-89 | Stage two | Decreased GFR + + +- + | 30-59 | Stage three | Stage three + + +- + | 15-29 | Stage four | Stage four + + +- + | <15 (or dialysis) | Stage five | Stage five + + +- + *Each stage assumes the associated GFR level has been in effect for at least three months. Stages 1 to 5, with or without kidney disease, indicate chronic kidney disease. Notes: Determination of stages one and two (with eGFR >59mL/min/1.73 m2) requires estimation of kidney damage for at least three months as defined by structural or functional abnormalities of the kidney, manifested by either: Pathological abnormalities or Markers of kidney damage (including abnormalities in the composition of the blood or urine or abnormalities in imaging tests). Performing Organization Address City/State/Zipcode Phone Number [facility] CLIA: [id number], [address] [place] [address] documented in this encounter Visit Diagnoses Diagnosis Vomiting, intractability of vomiting not specified, presence of nausea not specified, unspecified vomiting type - Primary Chest pain on breathing Painful respiration Hiccoughs Hiccough Chest pain, unspecified type Morbid obesity Type 2 diabetes mellitus without complication, without long-term current use of insulin Essential hypertension Unspecified essential hypertension HLD (hyperlipidemia) Other and unspecified hyperlipidemia History of arterial ischemic stroke Transient ischemic attack (TIA), and cerebral infarction without residual deficits documented in this encounter Administered Medications Medication Order MAR Action Action Date Dose Rate Site acetaminophen (TYLENOL) tablet Given 04/05/2019 12:49 PM DISABILITY INSURANCE CLAIM EXAMINER 650 mg 650 mg 650 mg, Oral, Q6HPRN, Starting 04/04/19 at 0824, Until Discontinued, Routine, Pain (scale 1-3) Given 04/04/2019 9:37 PM DISABILITY INSURANCE CLAIM EXAMINER 650 mg Given 04/04/2019 2:47 PM DISABILITY INSURANCE CLAIM EXAMINER 650 mg atorvastatin (LIPITOR) tablet 10 mg Given 04/04/2019 7:57 PM DISABILITY INSURANCE CLAIM EXAMINER 10 mg 10 mg, Oral, QHS, First dose on 04/04/19 at 2100, Until Discontinued, Routine clopidogreL (PLAVIX) tablet 75 mg Given 04/05/2019 8:18 AM DISABILITY INSURANCE CLAIM EXAMINER 75 mg 75 mg, Oral, DAILY, First dose on Fri04/05/19 at 0900, Until Discontinued, Routine dextrose 50 % in water (D50W) injection 25 mL 25 mL, Slow IV Push, PRN, Starting Fri04/04/19 at 1340, Until Discontinued, MAXIMUS, Blood Glucose < or=70 mg/dL and patient is unable to swallow or has mental status changes. famotidine (PEPCID AC) tablet 20 mg Given 04/05/2019 8:18 AM DISABILITY INSURANCE CLAIM EXAMINER 20 mg 20 mg, Oral, BID, First dose on Fri04/04/19 at 1345, Until Discontinued, Routine Given 04/04/2019 7:57 PM DISABILITY INSURANCE CLAIM EXAMINER 20 mg Given 04/04/2019 2:44 PM DISABILITY INSURANCE CLAIM EXAMINER 20 mg glimepiride (AMARYL) tablet 4 mg Given 04/05/2019 8:18 AM DISABILITY INSURANCE CLAIM EXAMINER 4 mg 4 mg, Oral, QAM WITH BREAKFAST, First dose on Fri04/05/19 at 0800, Until Discontinued, Routine glucagon (GLUCAGEN DIAGNOSTIC KIT) injection 1 mg 1 mg, Intramuscular, PRN, Starting Fri04/04/19 at 1340, Until Discontinued, MAXIMUS, Blood Glucose < or=70 mg/dL and patient is unable to swallow or has mental changes. maalox:diphenhydrAMINE:lidocaine2 %viscous 1:1:1: suspension (COMPOUNDED) 15 mL, Oral, Q4HPRN, Starting Fri04/04/19 at 1345, Until Discontinued, Routine , Epigastric pain Sliding Scale Insulin - Lispro Given 04/05/2019 8:18 AM DISABILITY INSURANCE CLAIM EXAMINER 2 Units Abdomen-SC (HumaLOG) + Fsbg Testing Subcutaneous, TID MEALS+HS, First dose on Fri04/04/19 at 1700, Until Discontinued, Routine sucralfate (CARAFATE) tablet 1 g Given 04/05/2019 12:49 PM DISABILITY INSURANCE CLAIM EXAMINER 1 g 1 g, Oral, AC+HS, First dose on Fri04/04/19 at 1345, Until Discontinued, Routine Given 04/05/2019 8:18 AM DISABILITY INSURANCE CLAIM EXAMINER 1 g Given 04/04/2019 7:57 PM DISABILITY INSURANCE CLAIM EXAMINER 1 g Medication Order MAR Action Action Date Dose Rate Site iohexol (OMNIPAQUE 350 BULK-100 Given 04/04/2019 7:13 AM DISABILITY INSURANCE CLAIM EXAMINER 120 mL mL) injection 120 mL 120 mL, Intravenous, ONCE, 1 dose, 04/04/19 at 0730, Routine documented in this encounter Insurance Payer Benefit Plan / Subscriber ID Effective Dates Phone Address Type Group [facility] xxxxxxxxx 2016-Present Medicaid COMM PLAN - PLUS MANAGED MEDICAID documented as of this encounter
[2019-04-25 17:39] LABS: Absolute Lymphocytes (CBC) 3.2 K/uL (0.7-4.9); Basophils % 0.1 % (0-1.3); Lymphocytes % 37.5 % (15.3-44.8); RBC Red Blood Cell Count 4.12 M/uL (3.86-4.86)
[2019-04-25 17:41] LABS: Urine Blood NEGATIVE (NEG); Urine Glucose 3+ (NEG); Urine Protein NEGATIVE (NEG); Urine pH 5.5 (5.0-7.0)
[2019-04-25] MEDS ORDERED: MORPHINE 4 MG/ML SYR ONE (17:41)
[2019-04-25] MEDS ORDERED: ONDANSETRON 4 MG/2 ML VIAL ONE (17:41)
[2019-04-25] MEDS ORDERED: NA CHLORIDE 0.9% 1,000 ML ONE (17:41)
[2019-04-25 17:50] LABS: ALT/SGPT 37 U/L (12-78); AST/SGOT 21 U/L (15-37); Albumin 3.9 g/dL (3.4-5.0); Alkaline Phosphatase 80 U/L (45-117); BUN Blood Urea Nitrogen 30 mg/dL (7-18); Bicarbonate 25 mmol/L (21-32); Bilirubin Direct < 0.1 mg/dL (0-0.2); Bilirubin Total 0.2 mg/dL (0.2-1.0); Glucose Level 183 mg/dL (74-106); Lipase 218 U/L (73-393); Potassium 3.7 mmol/L (3.5-5.1); Sodium Level 138 mmol/L (136-145)
[2019-04-25] MEDS ORDERED: DIPHENHYDRAMINE 50 MG/ML VIAL ONE (18:16)
[2019-04-25] MEDS ORDERED: METHYLPREDNISOLONE 125 MG INJ ONE (18:16)
[2019-04-25] MEDS ORDERED: FAMOTIDINE 20 MG/2 ML VIAL IV ONE (18:17)
[2019-04-25] MEDS ORDERED: METRONIDAZOLE 500mg IVPB 500 MG/100 ML BAG IV ONE (18:58)
[2019-04-25] MEDS ORDERED: CIPROFLOXACIN 400mg IV 400 MG/200 ML BAG IV ONE (18:58)
--- NOTE | 2019-04-25 19:32 | RAD REPORT ---
EXAM DESCRIPTION: CT - Abdomen Pelvis W Contrast - 04/25/2019 7:20 pm CLINICAL HISTORY: ABD PAIN COMPARISON: Abdomen Pelvis W Contrast dated 09/27/2016 TECHNIQUE: Biphasic, helical CT imaging of the abdomen and pelvis was performed following 100 ml non -ionic IV contrast. No oral contrast. All CT scans are performed using dose optimization technique as appropriate and may include automated exposure control or mA/KV adjustment according to patient size. FINDINGS: No suspicious findings in the lung bases. The liver, spleen, and pancreas show no suspicious findings. Liver does show fatty infiltration. Gall bladder size is normal. Gallstones can be occult. There is questionably a small gallstone near the ne ck of the gallbladder. There is no biliary tree dilatation. Symmetric renal function is seen with no hydronephrosis or suspicious renal mass. No pyelonephritis o r acute parenchymal process. Nonobstructing calculi are present. A 3 centimeter right renal cyst is p resent. A 2.5 centimeter left adrenal mass is unchanged from 2017. No right adrenal abnormality. No u rinary bladder abnormality. Uterus and ovaries show no suspicious findings or significant changes fro m comparison. No dilated bowel loops or bowel wall thickening. Appendix is normal. No free air, free fluid or infla mmatory stranding. No hernia, mass or bulky lymphadenopathy. No suspicious bony findings. IMPRESSION: Contrast enhanced CT abdomen and pelvis showing no acute finding. No significant changes from comparison. Nonacute findings are detailed in the body of the report.
--- NOTE | 2019-04-25 20:32 | EDPHYS ---
Physician Documentation [facility] Name: Lorri Dotson Age: 69 yrs Sex: Female : 1950 Arrival Date: 04/25/2019 Time: 16:56 Bed 5 Private MD: Leonel Henderson HPI: 04/24 17:05 This 69 yrs old Female presents to ER via Ambulatory with complaints of Back jmm Pain. 17:05 The patient presents with pain that is acute. Onset: The symptoms/episode jmm began/occurred gradually, 1 day(s) ago. The pain radiates to the abdomen. Associated signs and symptoms: Pertinent positives: vomiting, Pertinent negatives: fever. Modifying factors: The patient symptoms are alleviated by nothing, the patient symptoms are aggravated by nothing. The patient has experienced a previous episode, previous kidney stone. Historical: - Allergies: 17:09 No Known Allergies; ss - Home Meds: 17:09 aspirin 81 mg Oral chew 1 tab once daily [Active]; atorvastatin 20 mg Oral tab 1 tab ss once daily [Active]; glimepiride 4 mg Oral tab 1 tab once daily [Active]; lisinopril 20 mg Oral tab 1 tab once daily [Active]; lovastatin 10 mg Oral tab 1 tab once daily [Active]; metformin 1,000 mg Oral tab 2 times per day [Active]; Pepcid 20 mg Oral tab 1 tab once daily [Active]; Plavix 75 mg Oral tab 1 tab once daily [Active]; - PMHx: 17:09 Diabetes - NIDDM; Hypertension; TIA; ss - PSHx: 17:09 brain surgery with clips; ss - Immunization history:: Adult Immunizations up to date. - Social history:: Smoking status: Patient denies any tobacco usage or history of. ROS: 17:05 Constitutional: Negative for fever, chills, and weight loss, Cardiovascular: Negative jmm for chest pain, palpitations, and edema, Respiratory: Negative for shortness of breath, cough, wheezing, and pleuritic chest pain. 17:05 Back: Positive for flank pain. 17:05 All other systems are negative. Exam: 17:05 Constitutional: This is a well developed, well nourished patient who is awake, alert, jmm and in no acute distress. Head/Face: atraumatic. Eyes: EOMI, no conjunctival erythema appreciated ENT: Moist Mucus Membranes Neck: Trachea midline, Supple Chest/axilla: Normal chest wall appearance and motion. Cardiovascular: Regular rate and rhythm. No edema appreciated Respiratory: Normal respirations, no respiratory distress appreciated Back: Normal ROM 17:05 Skin: General appearance color normal MS/ Extremity: Moves all extremities, no obvious deformities appreciated, no edema noted to the lower extremities Neuro: Awake and alert, normal gait Psych: Behavior is normal, Mood is normal, Patient is cooperative and pleasant 17:05 Abdomen/GI: Inspection: abdomen appears normal, Bowel sounds: normal, Palpation: soft, mild abdominal tenderness, in the right lower quadrant. 17:05 Back: CVA tenderness, that is mild. Vital Signs: 17:06 BP 126 / 59; Pulse 84; Resp 20; Temp 97.2(TE); Pulse Ox 96% on R/A; Weight 72.57 kg; ss Height 5 ft. 0 in. (152.40 cm); Pain 5/10; 18:00 BP 121 / 62; Pulse 88; Resp 18; Pulse Ox 97% on R/A; Pain 6/10; hb 20:30 BP 107 / 57; Pulse 61; Resp 18; Pulse Ox 98% ; ea 17:06 Body Mass Index 31.25 (72.57 kg, 152.40 cm) ss MDM: 17:05 Patient medically screened. [facility] 20:29 Data reviewed: vital signs, nurses notes. [facility] 20:29 ED course: Labs and imaging studies are unremarkable. Patient is advised to follow up [facility] with pcp. Patient is advised to return to the ED if symptoms worsen. Patient understood and agrees with the plan of care. . 03 17:17 Order name: Basic Metabolic Panel; Complete Time: 17:55 hb 15 17:17 Order name: CBC with Diff; Complete Time: 17:55 hb /15 17:17 Order name: Creatinine for Radiology; Complete Time: 17:55 hb /15 17:17 Order name: Hepatic Function; Complete Time: 17:55 hb /15 17:17 Order name: Lipase; Complete Time: 17:55 hb /15 17:26 Order name: Urine Dipstick--Ancillary (enter results); Complete Time: 17:55 eb 04/24 17:56 Order name: CT Abd/Pelvis - IV Contrast Only; Complete Time: 19:36 mallika 04/24 17:17 Order name: IV Saline Lock; Complete Time: 17:30 hb 04/24 17:17 Order name: Labs collected and sent; Complete Time: 17:22 hb 04/24 17:17 Order name: Urine Dipstick-Ancillary (obtain specimen); Complete Time: 17:30 hb Administered Medications: 17:41 Drug: NS 0.9% 1000 ml Route: IV; Rate: 1 bolus; Site: right antecubital; hb 18:35 Follow up: Response: No adverse reaction; IV Status: Completed infusion; IV Intake: hb 1000ml 17:41 Drug: morphine 4 mg Route: IVP; Site: right antecubital; hb 18:00 Follow up: Response: No adverse reaction hb 17:41 Drug: Zofran (Ondansetron) 4 mg Route: IVP; Site: right antecubital; hb 18:00 Follow up: Response: No adverse reaction hb 18:00 Drug: Pepcid 40 mg Route: IVP; Site: right antecubital; ss 18:51 Follow up: Response: No adverse reaction hb 18:10 Drug: Benadryl 50 mg Route: IVP; Site: right antecubital; ss 18:51 Follow up: Response: No adverse reaction hb 18:18 Drug: SOLU-Medrol 125 mg Route: IVP; Site: right antecubital; ss 18:50 Follow up: Response: No adverse reaction hb 19:05 Drug: Cipro 400 mg Volume: 200 ml; Route: IVPB; Infused Over: 60 mins; Site: right hb antecubital; 20:22 Follow up: Response: No adverse reaction; IV Status: Completed infusion; IV Intake: rr5 200ml 19:05 Drug: Flagyl 500 mg Volume: 100 ml; Route: IVPB; Rate: 200 ml/hr; Infused Over: 30 hb mins; Site: right antecubital; 19:45 Follow up: Response: No adverse reaction; IV Status: Completed infusion; IV Intake: rr5 100ml 20:46 Not Given (Other Intervention Used): TORadol 30 mg IVP once sg Disposition: 04/25 10:39 Co-signature as Attending Physician, Leonel FUENTES I agree with the assessment and [facility] plan of care. Disposition: 04/25/19 20:31 Discharged to Home. Impression: Lower abdominal pain, unspecified. - Condition is Stable. - Discharge Instructions: Abdominal Pain, Adult. - Prescriptions for Ultracet 37.5- 325 mg Oral Tablet - take 1 tablet by ORAL route every 6 hours - for up to 5 days; do not exceed 8 tablets per day.; 12 tablet. - Work release form, Medication Reconciliation Form, Thank You Letter, Antibiotic Education, Prescription Opioid Use form. - Follow up: Private Physician; When: 2 - 3 days; Reason: Recheck today's complaints, Continuance of care, Re-evaluation by your physician. Signatures: Dispatcher [employer] EDNY Leonel Mccracken MD MD cha Mickail, Joel, PA PA [facility] Elba Davis, RN RN ss Samantha Noble, RN RN Barbara Kelly RN Lopez Bustos ea, RN sg Jhon Person RN rr5 Corrections: (The following items were deleted from the chart) 04/24 18:08 17:36 Stone Protocol+CT.RAD.BRZ ordered. [facility] 20:57 20:31 04/25/2019 20:31 Discharged to Home. Impression: Lower abdominal pain, ea unspecified. Condition is Stable. Forms are Medication Reconciliation Form, Thank You Letter, Antibiotic Education, Prescription Opioid Use. Follow up: Private Physician; When: 2 - 3 days; Reason: Recheck today's complaints, Continuance of care, Re-evaluation by your physician. jane
--- NOTE | 2019-04-25 20:32 | ER ---
Nurse's Notes [facility] Name: Lorri Dotson Age: 69 yrs Sex: Female : 1950 Arrival Date: 04/25/2019 Time: 16:56 Bed 5 Private MD: Diagnosis: Lower abdominal pain, unspecified Presentation: 04/24 17:06 Chief complaint: Patient states: intermittent, sharp R flank pain that radiates down ss RLQ that began yesterday. Also c/o urinary frequency. Coronavirus screen: The patient has NOT traveled to a country currently being monitored by the [facility] within the last 14 days. Proceed with normal triage procedures. Ebola Screen: Patient denies exposure to infectious person. Patient denies travel to an Ebola-affected area in the 21 days before illness onset. Initial Sepsis Screen: Does the patient meet any 2 criteria? No. Patient's initial sepsis screen is negative. Does the patient have a suspected source of infection? No. Patient's initial sepsis screen is negative. Risk Assessment: Do you want to hurt yourself or someone else? Patient reports no desire to harm self or others. 17:06 Method Of Arrival: Ambulatory ss 17:06 Acuity: SARAI 3 ss Historical: - Allergies: 17:09 No Known Allergies; ss - Home Meds: 17:09 aspirin 81 mg Oral chew 1 tab once daily [Active]; atorvastatin 20 mg Oral tab 1 tab ss once daily [Active]; glimepiride 4 mg Oral tab 1 tab once daily [Active]; lisinopril 20 mg Oral tab 1 tab once daily [Active]; lovastatin 10 mg Oral tab 1 tab once daily [Active]; metformin 1,000 mg Oral tab 2 times per day [Active]; Pepcid 20 mg Oral tab 1 tab once daily [Active]; Plavix 75 mg Oral tab 1 tab once daily [Active]; - PMHx: 17:09 Diabetes - NIDDM; Hypertension; TIA; ss - PSHx: 17:09 brain surgery with clips; ss - Immunization history:: Adult Immunizations up to date. - Social history:: Smoking status: Patient denies any tobacco usage or history of. Screenin:25 Abuse screen: Denies threats or abuse. Denies injuries from another. Nutritional hb screening: No deficits noted. Tuberculosis screening: No symptoms or risk factors identified. Fall Risk None identified. Assessment: 17:20 General: Appears in no apparent distress. Behavior is calm, cooperative. Pain: Pain hb currently is 5 out of 10 on a pain scale. Neuro: Level of Consciousness is awake, alert, obeys commands, Oriented to person, place, time, situation. Cardiovascular: Capillary refill < 3 seconds Patient's skin is warm and dry. Respiratory: Airway is patent Respiratory effort is even, unlabored, Respiratory pattern is regular, symmetrical. GI: No signs and/or symptoms were reported involving the gastrointestinal system. : Reports right flank pain, pain with urination. EENT: No signs and/or symptoms were reported regarding the EENT system. Derm: Skin is pink, warm \\T\\ dry. Musculoskeletal: No signs and/or symptoms reported regarding the musculoskeletal system. 18:07 Reassessment: Pt c/o itchy throat and tongue swelling, VSS. Dr. Mccracken notified, hb orders given. 18:33 Reassessment: Pt denies itchy throat, reports mouth feels "almost all better." VSS. hb 19:30 Reassessment: Patient appears in no apparent distress at this time. Patient and/or sg family updated on plan of care and expected duration. Pain level reassessed. pt complaining of pain in her gums and mouth at this time, no signs of anaphylaxis reported or observed at this time, Eliazar TINOCO notified. Vital Signs: 17:06 BP 126 / 59; Pulse 84; Resp 20; Temp 97.2(TE); Pulse Ox 96% on R/A; Weight 72.57 kg; Height 5 ft. 0 in. (152.40 cm); Pain 5/10; 18:00 BP 121 / 62; Pulse 88; Resp 18; Pulse Ox 97% on R/A; Pain 6/10; hb 20:30 BP 107 / 57; Pulse 61; Resp 18; Pulse Ox 98% ; ea 17:06 Body Mass Index 31.25 (72.57 kg, 152.40 cm) ED Course: 16:56 Patient arrived in ED. mr 17:05 Leonel Mccracken MD is Attending Physician. [facility] 17:07 Triage completed. 17:09 Arm band placed on right wrist. 17:15 Inserted saline lock: 22 gauge in right antecubital area, using aseptic technique. kj1 Blood collected. 17:15 Initial lab(s) drawn, by me, sent to lab. Urine collected: clean catch specimen, clear. kj1 17:25 Patient has correct armband on for positive identification. Bed in low position. Call hb light in reach. Side rails up X 1. 17:30 Urine Dipstick--Ancillary (enter results) Sent. kj1 17:41 Samantha Noble, RN is Primary Nurse. hb 18:21 Radiology exam delayed due to pt receiving meds before CT scan. md1 18:54 Chava Isabel PA is PHCP. jmm 19:08 Primary Nurse role handed off by Samantha Noble, RN sg 19:08 Lopez Miranda, RN is Primary Nurse. sg 19:09 Patient moved to radiology via wheelchair. sg 19:16 CT completed. Patient moved back from CT. bq 19:23 CT Abd/Pelvis - IV Contrast Only In Process Unspecified. EDMS 19:26 Patient moved back from radiology. sg 20:55 No provider procedures requiring assistance completed. IV discontinued, intact, ea bleeding controlled, No redness/swelling at site. Pressure dressing applied. Administered Medications: 17:41 Drug: NS 0.9% 1000 ml Route: IV; Rate: 1 bolus; Site: right antecubital; hb 18:35 Follow up: Response: No adverse reaction; IV Status: Completed infusion; IV Intake: hb 1000ml 17:41 Drug: morphine 4 mg Route: IVP; Site: right antecubital; hb 18:00 Follow up: Response: No adverse reaction hb 17:41 Drug: Zofran (Ondansetron) 4 mg Route: IVP; Site: right antecubital; hb 18:00 Follow up: Response: No adverse reaction hb 18:00 Drug: Pepcid 40 mg Route: IVP; Site: right antecubital; ss 18:51 Follow up: Response: No adverse reaction hb 18:10 Drug: Benadryl 50 mg Route: IVP; Site: right antecubital; ss 18:51 Follow up: Response: No adverse reaction hb 18:18 Drug: SOLU-Medrol 125 mg Route: IVP; Site: right antecubital; ss 18:50 Follow up: Response: No adverse reaction hb 19:05 Drug: Cipro 400 mg Volume: 200 ml; Route: IVPB; Infused Over: 60 mins; Site: right hb antecubital; 20:22 Follow up: Response: No adverse reaction; IV Status: Completed infusion; IV Intake: rr5 200ml 19:05 Drug: Flagyl 500 mg Volume: 100 ml; Route: IVPB; Rate: 200 ml/hr; Infused Over: 30 hb mins; Site: right antecubital; 19:45 Follow up: Response: No adverse reaction; IV Status: Completed infusion; IV Intake: rr5 100ml 20:46 Not Given (Other Intervention Used): TORadol 30 mg IVP once sg Intake: 18:35 IV: 1000ml; Total: 1000ml. hb 19:45 IV: 100ml; Total: 1100ml. rr5 20:22 IV: 200ml; Total: 1300ml. rr5 Outcome: 20:31 Discharge ordered by . jane 20:55 Discharged to home ambulatory, with family. ea 20:55 Condition: stable 20:55 Discharge instructions given to patient, Instructed on discharge instructions, follow up and referral plans. medication usage, Demonstrated understanding of instructions, follow-up care, medications. 20:57 Patient left the ED. ea Signatures: Dispatcher [employer] EDMS Lopez Miranda RN RN sg Anderson, Corey, MD MD cha Mickail, Joel, PA PA jmm Rivera, Mary mr LachelledionneTheresa Shelby RN Samantha Miranda RN RN Barbara Prince RN RN ea Roque, Raymond, RN RN rr5 Divya Florence kj1 Olinda Martins md1 Corrections: (The following items were deleted from the chart) 17:30 17:28 Initial lab(s) drawn, by me, sent to lab. Urine collected: clean catch specimen, kj1 clear, kj1
[2019-04-25 21:25] VITALS: TEMP 97.2
[2019-04-25 21:29] VITALS: BP 107/57; O2SAT 98
== END 2019-04-25 20:57 | disposition home or self-care (01) ==
LOC: ER 16:53
DX: R10.30 Lower abdominal pain, unspecified (principal); I10 Essential (primary) hypertension; E11.9 Type 2 diabetes mellitus without complications; Z79.01 Long term (current) use of anticoagulants; Z79.82 Long term (current) use of aspirin
CPT/HCPCS: 96365; 96361; 96368; 85025; 80048; 36415; 80076; 81003; 83690; 74177; 96375; 99284; Q9967; J1200; J7030; J2930; J2405; J0744

== ENCOUNTER 2019-05-07 20:36 | Emergency (ER) | payer OTHER ==
--- OUTSIDE RECORDS SUMMARY | 2019-05-07 20:39 | XMS REPORT ---
:1950 [facility] Address [address] [place] [address] Care Team Providers Name Role Phone Unavailable [...] mammographic images were evaluated by either a Adictiz M-Vu or a Polar OLED ImageChecker CAD (computer aided detection system). No [...] mammography in one year. Deshaun jacinto/jose:12/16/2017 15:55:39 Screen Printing Machine Loader Unloader: Nneka Kahn MM, [facility] Mammographyletter sent: BIRADS 1-2 Normal Mammogram BI-RADS: 2 Benign
[2019-05-07 21:14] LABS: Basophils % 1.2 % (0-1.3); Hematocrit 41.6 % (36.0-45.0); Lymphocytes % 38.1 % (15.3-44.8); MPV 7.7 fL (7.6-11.3); Protime INR 1.06
[2019-05-07] MEDS ORDERED: MORPHINE 4 MG/ML SYR ONE (21:25)
[2019-05-07] MEDS ORDERED: ONDANSETRON 4 MG/2 ML VIAL ONE (21:25)
[2019-05-07] MEDS ORDERED: MAGNE/ALUM HYDROXD 30 ML UCUP ONE (21:25)
[2019-05-07] MEDS ORDERED: NA CHLORIDE 0.9% 1,000 ML ONE (21:26)
[2019-05-07] MEDS ORDERED: LIDOCAINE VISCOUS 2% SOLN 15 ML UDC ONE (21:26)
[2019-05-07] MEDS ORDERED: FAMOTIDINE 20 MG/2 ML VIAL IV ONE (21:26)
[2019-05-07 21:30] LABS: ALT/SGPT 44 U/L (12-78); AST/SGOT 30 U/L (15-37); Alkaline Phosphatase 73 U/L (45-117); BUN Blood Urea Nitrogen 24 mg/dL (7-18); Bicarbonate 26 mmol/L (21-32); Bilirubin Direct < 0.1 mg/dL (0-0.2); Bilirubin Total 0.2 mg/dL (0.2-1.0); Glucose Level 159 mg/dL (74-106); Lipase 241 U/L (73-393); Magnesium 2.3 mg/dL (1.8-2.4); NT PRO-BNP 43 pg/mL (<125); Potassium 3.7 mmol/L (3.5-5.1); Protein, Total 8.1 g/dL (6.4-8.2); Sodium Level 138 mmol/L (136-145); Troponin (Emerg Dept Use Only) < 0.02 ng/mL (0.0-0.045)
--- NOTE | 2019-05-07 23:23 | ER ---
Nurse's Notes [facility] Name: Lorri Dotson Age: 69 yrs Sex: Female : 1950 Arrival Date: 05/07/2019 Time: 20:40 Bed 30 Private MD: Diagnosis: Upper abdominal pain, unspecified Presentation: 05/06 21:02 Chief complaint: Patient states: Reports she started having epigastric pain yesterday ea with a lot of belching. Pt denies n/v/d. Coronavirus screen: Patient denies fever greater than 100.4F, cough, shortness of breath, or difficulty breathing. Ebola Screen: No symptoms or risks identified at this time. Initial Sepsis Screen: Does the patient meet any 2 criteria? No. Patient's initial sepsis screen is negative. Does the patient have a suspected source of infection? No. Patient's initial sepsis screen is negative. Risk Assessment: Do you want to hurt yourself or someone else? Patient reports no desire to harm self or others. 21:02 Method Of Arrival: Ambulatory ea 21:02 Acuity: SARAI 3 ea 21:33 Onset of symptoms was May 07, 2019. mg2 Triage Assessment: 21:07 General: Appears in no apparent distress. Behavior is calm, cooperative, appropriate ea for age. Pain: Complains of pain in epigastric area. Neuro: Level of Consciousness is awake, alert, obeys commands, Oriented to person, place, time, situation. GI: Patient currently denies diarrhea, nausea, vomiting. Historical: - Allergies: 21:07 No Known Allergies; ea - Home Meds: 21:07 aspirin 81 mg Oral chew 1 tab once daily [Active]; atorvastatin 20 mg Oral tab 1 tab ea once daily [Active]; glimepiride 4 mg Oral tab 1 tab once daily [Active]; lisinopril 20 mg Oral tab 1 tab once daily [Active]; lovastatin 10 mg Oral tab 1 tab once daily [Active]; Plavix 75 mg Oral tab 1 tab once daily [Active]; Pepcid 20 mg Oral tab 1 tab once daily [Active]; metformin 1,000 mg Oral tab 2 times per day [Active]; - PMHx: 21:07 TIA; Hypertension; Diabetes - NIDDM; ea - PSHx: 21:07 brain surgery with clips; ea - Immunization history:: Adult Immunizations unknown. - Social history:: Patient/guardian denies using alcohol, street drugs, The patient lives alone, with family, Smoking status: Patient denies any tobacco usage or history of. - Family history:: not pertinent. Screenin:04 Abuse screen: Denies threats or abuse. Nutritional screening: No deficits noted. ea Tuberculosis screening: No symptoms or risk factors identified. Fall Risk None identified. Assessment: 21:00 General: Appears in no apparent distress. comfortable, Behavior is calm, cooperative. mg2 21:00 Pain: Complains of pain in abdomen and epigastric area Pain does not radiate. Pain mg2 currently is 8 out of 10 on a pain scale. Quality of pain is described as aching, Pain began gradually, Is intermittent. Neuro: Level of Consciousness is awake, alert, obeys commands, Oriented to person, place, time, situation. Cardiovascular: Capillary refill < 3 seconds Patient's skin is warm and dry. Respiratory: Airway is patent Respiratory effort is even, unlabored, Respiratory pattern is regular, symmetrical. GI: Bowel sounds present X 4 quads. Abd is soft and non tender X 4 quads. GI: Reports upper abdominal pain. : No signs and/or symptoms were reported regarding the genitourinary system. EENT: No signs and/or symptoms were reported regarding the EENT system. Derm: Skin is intact, is healthy with good turgor, Skin is pink, warm \T\ dry. normal. Musculoskeletal: Circulation, motion, and sensation intact. Capillary refill < 3 seconds. 22:11 Reassessment: Patient appears in no apparent distress at this time. Patient and/or mg2 family updated on plan of care and expected duration. Pain level reassessed. Patient is alert, oriented x 3, equal unlabored respirations, skin warm/dry/pink. 22:34 Reassessment: Patient states feeling better. mg2 Vital Signs: 21:02 BP 124 / 60; Pulse 78; Resp 18; Pulse Ox 99% ; Weight 77.11 kg; Height 5 ft. 4 in. ea (162.56 cm); 22:32 BP 123 / 58; Pulse 61; Resp 18; Temp 98.2; Pulse Ox 100% on R/A; Pain 2/10; mg2 23:39 BP 122 / 80; Pulse 62; Resp 18; Temp 98.2; Pulse Ox 100% on R/A; mg2 21:02 Body Mass Index 29.18 (77.11 kg, 162.56 cm) ea ED Course: 20:40 Patient arrived in ED. cf2 20:45 [facility]C [facility]. snw 20:45 Irma Matos MD is Attending Physician. snw 20:53 Ever Reyna, ELIAS is Primary Nurse. mg2 21:00 Inserted saline lock: 20 gauge in right antecubital area, using aseptic technique. mg2 Blood collected. 21:04 Triage completed. ea 21:04 Patient has correct armband on for positive identification. Placed in gown. Bed in low ea position. Call light in reach. Pulse ox on. NIBP on. 21:04 Arm band placed on right wrist. Patient placed in an exam room, on a stretcher, on ea pulse oximetry. 21:31 XRAY Chest (1 view) In Process Unspecified. EDMS 21:32 No provider procedures requiring assistance completed. mg2 22:16 CT Abd/Pelvis - IV Contrast Only In Process Unspecified. EDMS 23:39 IV discontinued, intact, bleeding controlled, No redness/swelling at site. Pressure mg2 dressing applied. Administered Medications: 21:28 Drug: Zofran (Ondansetron) 4 mg Route: IVP; Site: right antecubital; mg2 22:31 Follow up: Response: No adverse reaction mg2 21:29 Drug: Pepcid 20 mg Route: IVP; Site: right antecubital; mg2 22:31 Follow up: Response: No adverse reaction mg2 21:29 Drug: GI Cocktail without - (Maalox Suspension 30 ml, Lidocaine Liquid 2 % 15 mg2 ml) Route: PO; 22:31 Follow up: Response: No adverse reaction mg2 21:29 Drug: NS 0.9% 1000 ml Route: IV; Rate: 1 bolus; Site: right antecubital; mg2 22:31 Follow up: Response: No adverse reaction; IV Status: Completed infusion; IV Intake: mg2 1000ml 21:29 Drug: morphine 4 mg Route: IVP; Site: right antecubital; mg2 22:31 Follow up: Response: No adverse reaction; Marked relief of symptoms; RASS: Alert and mg2 Calm (0) Intake: 22:31 IV: 1000ml; Total: 1000ml. mg2 Outcome: 23:22 Discharge ordered by . caroline2 23:39 Discharged to home ambulatory. mg2 23:39 Condition: stable 23:39 Discharge instructions given to patient, Instructed on discharge instructions, follow up and referral plans. medication usage, Demonstrated understanding of instructions, follow-up care, medications, Prescriptions given X 2. 23:42 Patient left the ED. mg2 Signatures: Dispatcher [employer] EDMS Sharri Cruz, MINIBUS DRIVER-C MINIBUS DRIVER-Csnw Barbara Prince, RN Irma Mir ea, MD MD ma2 Gardose, Michele, RN RN mg2 Yash Alegre 2
--- NOTE | 2019-05-07 23:23 | EDPHYS ---
Physician Documentation [facility] Name: Lorri Dotson Age: 69 yrs Sex: Female : 1950 Arrival Date: 05/07/2019 Time: 20:40 Bed 30 Private MD: ED Physician Irma Matos HPI: 05/06 22:14 This 69 yrs old Female presents to ER via Ambulatory with complaints of ma2 Abdominal Pain, Shortness Of Breath. 22:14 The patient has shortness of breath at rest. Onset: The symptoms/episode began/occurred ma2 suddenly, 1 day(s) ago. Duration: The symptoms are continuous. Associated signs and symptoms: Pertinent positives: This patient does not have any pertinent positive signs or symptoms associated with shortness of breath. Pertinent negatives: non-productive cough, dizziness, hemoptysis, nausea. Severity of symptoms: At their worst the symptoms were mild in the emergency department the symptoms are unchanged. The patient has not experienced similar symptoms in the past. Historical: - Allergies: 21:07 No Known Allergies; ea - Home Meds: 21:07 aspirin 81 mg Oral chew 1 tab once daily [Active]; atorvastatin 20 mg Oral tab 1 tab ea once daily [Active]; glimepiride 4 mg Oral tab 1 tab once daily [Active]; lisinopril 20 mg Oral tab 1 tab once daily [Active]; lovastatin 10 mg Oral tab 1 tab once daily [Active]; Plavix 75 mg Oral tab 1 tab once daily [Active]; Pepcid 20 mg Oral tab 1 tab once daily [Active]; metformin 1,000 mg Oral tab 2 times per day [Active]; - PMHx: 21:07 TIA; Hypertension; Diabetes - NIDDM; ea - PSHx: 21:07 brain surgery with clips; ea - Immunization history:: Adult Immunizations unknown. - Social history:: Patient/guardian denies using alcohol, street drugs, The patient lives alone, with family, Smoking status: Patient denies any tobacco usage or history of. - Family history:: not pertinent. ROS: 22:14 Constitutional: Negative for fever, chills, and weight loss, Cardiovascular: Negative ma2 for chest pain, palpitations, and edema, Respiratory: Negative for shortness of breath, cough, wheezing, and pleuritic chest pain. 22:14 All other systems are negative. Exam: 22:14 Constitutional: This is a well developed, well nourished patient who is awake, alert, ma2 and in no acute distress. Chest/axilla: Normal chest wall appearance and motion. Nontender with no deformity. No lesions are appreciated. Cardiovascular: Regular rate and rhythm with a normal S1 and S2. No gallops, murmurs, or rubs. Normal PMI, no JVD. No pulse deficits. Respiratory: Lungs have equal breath sounds bilaterally, clear to auscultation and percussion. No rales, rhonchi or wheezes noted. No increased work of breathing, no retractions or nasal flaring. Abdomen/GI: epigastric-tenderness, with normal bowel sounds. No distension or tympany. No guarding or rebound. Neuro: Awake and alert, GCS 15, oriented to person, place, time, and situation. Cranial nerves II-XII grossly intact. Motor strength 5/5 in all extremities. Sensory grossly intact. Cerebellar exam normal. Normal gait. Vital Signs: 21:02 BP 124 / 60; Pulse 78; Resp 18; Pulse Ox 99% ; Weight 77.11 kg; Height 5 ft. 4 in. ea (162.56 cm); 22:32 BP 123 / 58; Pulse 61; Resp 18; Temp 98.2; Pulse Ox 100% on R/A; Pain 2/10; mg2 23:39 BP 122 / 80; Pulse 62; Resp 18; Temp 98.2; Pulse Ox 100% on R/A; mg2 21:02 Body Mass Index 29.18 (77.11 kg, 162.56 cm) ea MDM: 20:48 Patient medically screened. snw 22:14 Differential diagnosis: gastritis, pancreatitis vs gb stone vs gastroenteritis. Data ma2 reviewed: vital signs, nurses notes. 05/06 20:49 Order name: Basic Metabolic Panel; Complete Time: 22:07 snw 05/06 20:49 Order name: CBC with Diff; Complete Time: 22:07 snw 05/06 20:49 Order name: LFT's; Complete Time: 22:07 snw 05/06 20:49 Order name: Magnesium; Complete Time: 22:07 snw 05/06 20:49 Order name: NT PRO-BNP; Complete Time: 22:07 snw 05/06 20:49 Order name: PT-INR; Complete Time: 22:07 snw 05/06 20:49 Order name: Troponin (emerg Dept Use Only); Complete Time: 22:07 snw 05/06 20:49 Order name: XRAY Chest (1 view) snw 05/06 21:14 Order name: CT Abd/Pelvis - IV Contrast Only ma2 05/06 21:16 Order name: Lipase; Complete Time: 22:07 EDMS 05/06 20:49 Order name: EKG; Complete Time: 20:50 snw 05/06 20:49 Order name: Cardiac monitoring; Complete Time: 21:20 snw 05/06 20:49 Order name: EKG - Nurse/Tech; Complete Time: 21:20 snw 05/06 20:49 Order name: IV Saline Lock; Complete Time: 21:20 snw 05/06 20:49 Order name: Labs collected and sent; Complete Time: 21:21 snw 05/06 20:49 Order name: O2 Per Protocol; Complete Time: 21:21 snw 05/06 20:49 Order name: O2 Sat Monitoring; Complete Time: 21:21 snw Administered Medications: 21:28 Drug: Zofran (Ondansetron) 4 mg Route: IVP; Site: right antecubital; mg2 22:31 Follow up: Response: No adverse reaction mg2 21:29 Drug: Pepcid 20 mg Route: IVP; Site: right antecubital; mg2 22:31 Follow up: Response: No adverse reaction mg2 21:29 Drug: GI Cocktail without - (Maalox Suspension 30 ml, Lidocaine Liquid 2 % 15 mg2 ml) Route: PO; 22:31 Follow up: Response: No adverse reaction mg2 21:29 Drug: NS 0.9% 1000 ml Route: IV; Rate: 1 bolus; Site: right antecubital; mg2 22:31 Follow up: Response: No adverse reaction; IV Status: Completed infusion; IV Intake: mg2 1000ml 21:29 Drug: morphine 4 mg Route: IVP; Site: right antecubital; mg2 22:31 Follow up: Response: No adverse reaction; Marked relief of symptoms; RASS: Alert and mg2 Calm (0) Disposition: 05/07/19 23:22 Discharged to Home. Impression: Upper abdominal pain, unspecified. - Condition is Stable. - Discharge Instructions: Abdominal Pain, Adult. - Prescriptions for Zofran 4 mg Oral Tablet - take 1 tablet by ORAL route every 12 hours As needed; 20 tablet. Pepcid 20 mg Oral Tablet - take 1 tablet by ORAL route once daily for 10 days; 10 tablet. - Medication Reconciliation Form, Thank You Letter, Antibiotic Education, Prescription Opioid Use form. - Follow up: Private Physician; When: Tomorrow; Reason: Continuance of care. Signatures: Dispatcher [employer] [facility] Sharri Cruz, DRIVE IN TELLER-C DRIVE IN TELL[employer] Barbara Prince, RN RN ea Irma Matos MD MD ma2 Ever Reyna RN RN mg2 Corrections: (The following items were deleted from the chart) 21:16 21:11 LIPASE+[id number].LAB.BRZ ordered. [facility] 23:42 23:22 05/07/2019 23:22 Discharged to Home. Impression: Upper abdominal pain, mg2 unspecified. Condition is Stable. Prescriptions for Zofran 4 mg Oral Tablet - take 1 tablet by ORAL route every 12 hours As needed; 20 tablet, Pepcid 20 mg Oral Tablet - take 1 tablet by ORAL route once daily for 10 days; 10 tablet. and Forms are Medication Reconciliation Form, Thank You Letter, Antibiotic Education, Prescription Opioid Use. Follow up: Private Physician; When: Tomorrow; Reason: Continuance of care. ma2
[2019-05-07 23:52] VITALS: TEMP 98.2; O2SAT 100
[2019-05-07 23:54] VITALS: BP 122/80
--- NOTE | 2019-05-08 08:49 | EKG ---
Test Date: 2019-05-07 Test Time: 21:14:16 Medical Assistant Float: MG MEASUREMENT RESULTS: Intervals: Rate: 69 CO: 138 QRSD: 84 QT: 420 QTc: 450 [place]: P: 14 CO: 138 QRS: 6 T: 28 INTERPRETIVE STATEMENTS: Normal sinus rhythm Normal ECG Compared to ECG 06/29/2018 12:36:53 No significant changes Electronically Signed On 05-08-19 08:49:22 CDT by Bennie Camejo
--- NOTE | 2019-05-08 11:58 | RAD REPORT ---
EXAM DESCRIPTION: RAD - Chest Single View - 05/07/2019 9:31 pm CLINICAL HISTORY: abd pain, sob Chest pain. COMPARISON: Chest Pa And Lat (2 Views) dated 02/11/2019; Chest Single View dated 04/21/2018; Chest Sing le View dated 08/24/2017; Chest Single View dated 02/26/2016 FINDINGS: Portable technique limits examination quality. The lungs are grossly clear. The heart is normal in size. No displaced fractures. IMPRESSION: No acute intrathoracic process suspected.
--- NOTE | 2019-05-08 12:47 | RAD REPORT ---
EXAM DESCRIPTION: Abdomen Pelvis W Contrast CLINICAL HISTORY: 69 years Female ABD PAIN COMPARISON: None TECHNIQUE: Images were obtained in axial, sagittal, and coronal planes. Intravenous contrast was adm inistered. This exam was performed according to our departmental dose-optimization program which includes use of Automated Exposure Control, adjustment of the mA and/or kV according to patient size and/or use o f iterative reconstruction technique. FINDINGS: Decreased attenuation involving liver likely related to fatty change. Unremarkable spleen, pancreas, gallbladder, and adrenal glands bilaterally. No obstructing renal calcifications bilaterally. No hydronephrosis bilaterally. Right renal cysts. 3 mm nonobstructing calcification superior right kidney. Unremarkable bladder. Appendix within normal limits. No bowel obstruction, perforation, or inflammation. No abnormality lower lungs bilaterally. No acute osseous abnormality. No dilatation abdominal aorta. Unremarkable portal vein. No adenopathy or abnormal fluid collections seen. IMPRESSION: No acute intra-abdominal abnormality. Electronically signed by: Norma Pulido MD 05/07/2019 10:30 PM CDT Due to temporary technical issues with the PACS/Fluency reporting system, reports are being signed by the in house radiologist as a courtesy to ensure prompt reporting. The interpreting radiologist is f ully responsible for the content of the report.
== END 2019-05-07 23:42 | disposition home or self-care (01) ==
LOC: ER 20:36
DX: R10.10 Upper abdominal pain, unspecified (principal); I10 Essential (primary) hypertension; E11.9 Type 2 diabetes mellitus without complications; Z79.82 Long term (current) use of aspirin
CPT/HCPCS: 96361; 93005; 85025; 80048; 36415; 83735; 85610; 80076; 84484; 83690; 83880; 74177; 71045; 96375; 96374; 99284; Q9967; J7030; J2405

== ENCOUNTER 2019-08-12 08:48 | Emergency (ER) | payer OTHER ==
--- OUTSIDE RECORDS SUMMARY | 2019-08-12 09:28 | XMS REPORT | Continuity of Care Document ---
:1950 Author Organization [employer] Care Team Providers Name Role Phone [employer] Unavailable Un available Problems Problem Status Onset Classification Date Comments Sourc e Date Reported Other specified 03/15/2018 [facility] disorders of 018 Medical Center brain TIA Active [facility] 018 Medical Ce nter ESTEFANIA BILLING Active [facility] 018 Medical [place] POSSIBLE STROKE [place]18 [facility] [place] LEFT POSTERIOR [place] COMMUNIC[place] 017 [facility] [place] ARTERY ANEU LFLT TRANSFER Active [place] as #[id number] 017 Medical Ce nter SAH Active [address] Center, Rehabilita tion Cerebral edema Active Problem 03/15/2018 [place] (disorder) Medical C enter Diabetes mellitus Resolved Problem 03/15/2018 [place] (disorder) Medical C enter 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 Medical C enter (disorder) Hemorrhage into Active Problem 03/15/2018 [facility] subarachnoid [facility] space of neuraxis (disorder) Hyperosmolality Active Problem 03/15/2018 [facility] with Medical Ce nter hypernatremia (disorder) Hypertensive Active Problem 03/15/2018 [place] disorder, Medical Ce nter systemic arterial (disorder) Obstructive Active Problem 03/15/2018 [place] hydrocephalus [facility] (disorder) Respiratory Active Problem 03/15/2018 [place] failure Medical Ce [place]ter (disorder) Ventricular Active Problem 03/15/[place] hemorrhage [place] (disorder) Weakness 03/15/2018 [facility] Medical Ce nter Hyperlipidemia, 03/15/2018 [facility] unspecified Medical Center Type 2 diabetes 03/15/2018 [facility] mellitus with Medica l Center hyperglycemia Hypertensive 03/15/2018 [place] chronic kidney Medic al Center disease with stage 1 through stage 4 chronic kidney disease, or unspecified chronic kidney disease Type 2 diabetes 03/15/2018 [facility] mellitus with [facility] diabetic chronic kidney disease Chronic kidney 03/15/2018 [place] disease, stage 2 [facility] (mild) Dependence on 03/15/2018 [place] renal dialysis 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 [facility] (current) use of [facility] oral hypoglycemic drugs NONTRAUMATIC Active [facility] s SUBARACHNOID Medical Center HEMORRHAGE, UN NONTRAUMATIC Active [facility] HEMORRHAGE, U CEREBRAL Active [facility] ANEURYSM, Medical Ce nter NONRUPTURED TRANSIENT Active [facility] CEREBRAL ISCHEMIC Ca dical Center ATTACK, UNSP Medications Medication Details Route Status Patient Ordering Order Source Instructions Provider Date Metformin 1,250 mg, PO, Active [place] hydrochloride BID-Meals, # 180 2018 M edical 1000 MG Oral tab, 1 Center Tablet Refill(s), Pharmacy: [id number] Plavix 75 mg, Route: No Longer [place] PO, Drug form: Active 2018 Medical TAB, Daily, Center Dosing Weight 77.273, kg, Start date: 08/26/17 9:00:00 CDT, Duration: 30 day, Stop date: 09/24/17 9:00:00 CDT Lovastatin 10 mg, Route: [place] Longer [place] PO, Drug form: Active 2017 Medical TAB, Daily, Center Dosing Weight 77.273, kg, Start date: 08/26/17 9:00:00 CDT, Duration: 30 day, Stop date: 09/24/17 9:00:00 CDT Lipitor Notes: (Same As: [place] Longer [place] Lipitor) Active 2018 [facility] Metformin 1,500 mg, PO, No Longer [facility] as hydrochloride BID-Meals, # 270 Active 2018 edical 1000 MG Oral tab, 1 Center Tablet Refill(s), Pharmacy: [id number] clopidogrel 75 75 mg = 1 tab, Active [place] mg oral tablet PO, Daily, # 90 2018 edical tab, 1 Center Refill(s), Pharmacy: [facility] lisinopril 20 mg 20 mg = 1 tab, Active [facility] oral tablet PO, Daily, 0 2018 Medical Refill(s) [place] Metformin 1,000 mg = 1 Inactive [place] hydrochloride tab, PO, 2018 Medical 1000 MG Oral BID-Meals, # [address] Tablet tab, 0 Refill(s) lovastatin 10 mg 10 mg = 1 tab, Active [place] oral tablet PO, Daily, 0 2017 Medical Refill(s) [place] glimepiride 4 MG 4 mg = 1 tab, Active [place] Oral Tablet PO, Daily, 0 2017 Medical [Amaryl] Refill(s) [place] Insulin Lispro Notes: (Same as: No Longer [place] Humalog ) Roll Active 2018 Medical in [facility] hands gently; Do not shake `vigorously. "Single Patient Use Only " WASTE: F/P - Black; E - Municipal Trash Bin Stable for 28 days at room temperature. Expires in days from Da te Glucagon 1 mg, Route: IM, No Longer [place] Drug form: Active 2018 Medical PDR/INJ, PRN, Center Dosing Weight 77.273, kg, PRN Blood Glucose Results, Start date: 08/25/17 12:11:00 CDT, Duration: 30 day, Stop date: 09/24/17 12:10:00 CDT Dextrose 50% 25 gm, 50 mL, No Longer [place] Syringe Route: IVP, Drug Active 2017 Medical Form: INJ, [place] Dosing Weight 77.273, kg, PRN, PRN Blood Glucose Results, Start date: 08/25/17 12:11:00 CDT, Duration: 30 day, Stop date: 09/24/17 12:10:00 CDT Plavix Notes: (Same As: No Longer [place] Plavix) Active 2018 [facility] Tylenol Notes: Do not No Longer [place] exceed 4 gm/day. Active 2018 Medical (Same as: [place] Tylenol) Saline Flush Notes: (Same as: No Longer [place] 0.9% BD Posiflush) Active 2018 [facility] atorvastatin Notes: Same as No Longer [place] Lipitor Active 2018 [facility] heparin Notes: porcine [place] Longer [place] heparin Active 2018 [facility] Aspirin 81 MG Notes: Do not No Longer [place] Enteric Coated crush or chew. Active 2018 Ca dical Tablet (Same As: Center Ecotrin) Saline Flush Notes: (Same as: No Longer [place] 0.9% BD Posiflush) Active 2018 Medical [place] iodixanol 100 mL, Route: Inactive [place] as IVP, Drug Form: 2018 [facility] SOLN, kg, Center ONCALL, STAT, Start date: 08/24/17 14:16:00 CDT, Duration: 1 doses or times, Dose = 2.2ml/kg, Max dose = 100ml -- "To be infused by Radiology Staff ONLY" Saline Flush Notes: (Same as: No Longer [place] 0.9% BD Posiflush) Active 2018 [facility] Ondansetron 4 MG 4 mg = 1 tab, Active [place] Oral Tablet PO, Q8H, PRN 2017 Medical [Zofran] Nausea/vomiting, Center X 10 day, # 30 tab, 0 Refill(s) pneumococcal Notes: (Same as: Inactive [place] [facility] capsular Pneumovax 23) 2017 Medical polysaccharide Refrigerate Cente r type 1 vaccine / pneumococcal capsular polysaccharide type 10A vaccine / pneumococcal capsular polysaccharide type 11A vaccine / pneumococcal capsular polysaccharide type 12F vaccine / pneumococcal capsular polysacchar Acetaminophen 1 tab, PO, Q6H, Active [place] 300 MG / Codeine PRN Pain, X 15 2017 Medical Phosphate 30 MG day, # 60 tab, 0 Center Oral Tablet Refill(s) [Tylenol with Codeine #3] senna 8.6 mg 17.2 mg = 2 tab, Active [place] oral tablet PO, Bedtime, PRN 2017 Med ical Constipation, X Center 10 day, # 20 tab, 0 Refill(s) Docusate Sodium 100 mg = 1 cap, Active [place] 100 MG Oral PO, BID, # 28 2017 Medica l Capsule [Colace] cap, 0 Refill(s) Center Saline Flush Notes: Same as: No Longer [place] 0.9% BD Posiflush Active 2017 [facility] Sterile Center sennosides, DETENTION Notes: (Same as: No Longer 06/20 [place] Senokot) Active 2017 Medical Center Docusate Notes: (Same as: No Longer [place] Colace) (Do Not Active 2016 Medical Crush) Center Tylenol Notes: Do not No Longer [place] exceed 4 gm/day. Active 2016 Medical (Same as: Center Tylenol) Insulin regular 60 units) No Longer [place] WASTE: F/P - Active 2017 Medical Black; E - Center Municipal Trash Bin Stable for 28 days at room temperature Expires in days from Da te Glucagon 1 mg, Route: IM, No Longer [place] Drug form: Active 2016 Medical PDR/INJ, PRN, Center Dosing Weight 72.727, kg, PRN Blood Glucose Results, Start date: 06/19/16 16:10:00 CDT, Duration: 30 day, Stop date: 07/19/16 16:09:00 CDT Dextrose 50% 25 gm, 50 mL, No Longer [place] Syringe Route: IVP, Drug Active 2016 Medical Form: INJ, Center Dosing Weight 72.727, kg, PRN, PRN Blood Glucose Results, Start date: 06/19/16 16:10:00 CDT, Duration: 30 day, Stop date: 07/19/16 16:09:00 CDT potassium Notes: (Same as: No Longer [place] phosphate-sodium Phos-NaK) Each Active 2016 Medical phosphate 250 1.5 gm pkt has [address] mg-280 mg-160 mg 250mg oral powder for phosphorous. Mix reconstitution w/2.5oz water and stir. potassium Notes: (Same as: No Longer [place] phosphate + K Phosphate.) 1 Active 2016 Med ical sodium chloride mMol phoshate Ce nter 0.9% INJ 250 mL has 1.47 mEq potassium Infuse over 4 hours Magnesium Notes: WASTE: No Longer [place] as Sulfate F/P - Sink; E - Active 2016 Medical [facility] Bin sodium phosphate 45 mmol, 15 mL, No Longer 06/19 [place] + sodium Route: IVPB, Active 2016 Medical chloride 0.9% PRN, Dosing Center INJ 250 mL Weight 72.727, kg, PRN Abnormal Lab Result, Start date: 06/19/16 13:36:00 CDT, Duration: 30 day, Stop date: 07/19/16 13:35:00 CDT, FOR ICU USE ONLY Magnesium Oxide Notes: (Same as: No Longer 06/19 [place] Mag-Ox 400) Active 2017 [facility] Magnesium oxide Center [id number] elemental magnesium Dose=____mg magnesium oxide (___mg elemental magnesium) potassium Notes: (Same as: No Longer [facility] chloride Potassium Active 2016 [facility] Chloride) [place] Calcium Notes: (Same As: [place] Carbonate 500 MG Tums) Calcium Active 2016 edical Chewable Tablet Carbonate 500 mg Center = 200 mg elemental calcium Dose = mg calcium carbonate ( mg elemental calcium) Calcium Notes: WASTE: No Longer [facility] Gluconate F/P - Sink; E - Active 2016 Medica l [facility] Bin Sodium Chloride 1,000 mL, Rate: No Longer [facility] 0.154 MEQ/ML 75 ml/hr, Infuse Active 2016 Ca dical Injectable over: 13.3 hr, Center Solution Route: IV, Dosing Weight 72.727 kg, Total Volume: 1,000, Start date: 06/19/16 13:36:00 CDT, Duration: 30 day, Stop date: 07/19/16 13:35:00 CDT Saline Flush Notes: Same as: No Longer [place] [facility] 0.9% BD Posiflush Active 2017 [facility] Sterile [place] Ondansetron Notes: (Same as: Inactive [facility] Zofran) 2017 Medical MEDICATION WASTE Center Product Size: 4 mg Product Wasted: 0__ mg Naloxone Notes: Same as [place] Narcan [facility] Medical [place] Flumazenil Notes: (Same as: Inactive [facility] Romazicon) [address] [place] [address] Omnipaque 350 150 ml, Route: Inactive [facility] INTRAARTERIAL, 2017 Medical Dosing Weight Center 72.727, kg, ONCE, Start date: 06/19/16 10:26:00 CDT, Stop date: 06/19/16 10:26:00 CDT Lipitor PO, Daily, 0 Active [facility] Refill(s) 2017 [facility] Aspirin 325 mg, PO, 0 Active [facility] Refill(s) 2017 [facility] ceFAZolin Notes: Same as: [place] Ancef 2017 [facility] Acetaminophen 650 mg, PO, Q6H, Active [place] [facility] PRN Pain Score 2017 Medical 1-5, 0 Refill(s) [place] Trazodone 50 mg = 1 tab, [place] Hydrochloride 50 PO, Bedtime, # 2017 Medical MG Oral Tablet 30 tab, 0 Center Refill(s) Sodium Chloride 1 gm = 1 tab, Active [place] 1000 MG Oral PO, Q6H, # 120 2017 Medi layla Tablet tab, 0 Refill(s) [place]ike polyethylene 17 gm, PO, Active [facility] glycol 3350 oral Daily, X 30 day, 2017 Medical powder for # 527 gm, 0 Center reconstitution Refill(s) Metformin 1,000 mg = 1 Active [facility] hydrochloride tab, PO, BID, # 2017 Me dical 1000 MG Oral 60 tab, 0 Center Tablet Refill(s) Benadryl Maximum 1 appl, Route: No Longer [place] Strength 2% TOP, QID, Drug Active 2016 Medic al topical cream form: CRM, PRN [address] ter as needed for itching, Start date: 03/24/16 12:08:00 ABRASIVE GRADER, Duration: 30 day, Stop date: 04/23/16 12:07:00 CDT Eucerin Plus Notes: (Same as: No Longer [place] topical lotion Cetaphil Lotion) Active [address] [place] [address] Nimodipine Notes: (Same as No Longer [place] Nimodipine oral Active [address] [place] [address] suspension Center 30mg/ml) Instill dose into NG tube and then flush with 30ml of NS emollients, Notes: (Same as: No Longer [place] [facility] topical lotion Cetaphil Lotion) Active [address] [place] [address] SMOG Enema Notes: Non No Longer [place] formulary item Active 2017 [facility] saline for Center irrigation (1L bottle) 100 mL, mineral oil 100 mL, glycerine 100 mL. Dispense (300 ml) in 1L NS bottle Bisacodyl Notes: (Same As: No Longer [facility] Dulcolax, Active 2016 Medical Bisco-Lax) Center magnesium Notes: (Same as: No Longer [place] citrate 58.2 Citrate of Active 2016 Medical MG/ML Oral Magnesia) Center Solution Concentration: 1.745 gm / 30 mL mineral oil 30 ml, Route: [place] PO, Drug Form: 2017 Medical LIQ, Dosing Center Weight 75, kg, ONCE, Start date: 03/21/16 10:24:00 ABRASIVE GRADER, Stop date: 03/21/16 10:24:00 ABRASIVE GRADER Milk of Magnesia Notes: (Same as: Inactive 03/21 [facility] Milk of 2017 Medical Magnesia, MOM) Center Metformin Notes: (Same as: No Longer [facility] Glucophage) Active 2016 Medical Take with meal Center Nimodipine Notes: (Same as No Longer [facility] Nimodipine oral Active 2016 Medical suspension Center 30mg/ml) Instill dose into NG tube and then flush with 30ml of NS Trazodone Notes: (Same As: No Longer [facility] Hydrochloride 50 Desyrel) Active 2016 Medica l MG Oral Tablet Center Metformin Notes: (Same as: No Longer [facility] Glucophage) Active 2016 Medical Take with meal Center Menthol 0.0044 Notes: (Same as: No Longer [facility] MG/MG / Zinc Calmoseptine) Active 2016 Medic al Oxide 0.2 MG/MG Center Topical Ointment [Calmoseptine Ointment] Insulin, Aspart, Notes: Roll in No Longer [facility] Human palms of hands Active 2017 Medical gently; Do not Center shake vigorously. (Same as: NovoLOG) "single patient use only" WASTE: F/P - Black; E - Municipal Trash Bin Stable for 28 days at room temperature. Expires in days from Da te Dextrose 50% 12.5 gm, 25 mL, No Longer [place] [facility] Syringe Route: IVP, Drug Active 2016 Medical Form: INJ, Center Dosing Weight 75, kg, PRN, PRN Blood Glucose Results, Start date: 03/18/16 12:27:00 ABRASIVE GRADER, Duration: 30 day, Stop date: 04/17/16 12:26:00 ABRASIVE GRADER Glucagon 1 mg, Route: IM, No Longer [place] Drug form: Active 2016 Medical PDR/INJ, PRN, Center Dosing Weight 75, kg, PRN Blood Glucose Results, Start date: 03/18/16 12:27:00 ABRASIVE GRADER, Duration: 30 day, Stop date: 04/17/16 12:26:00 ABRASIVE GRADER Insulin, Aspart, 4 unit, Route: Inactive [place] Human SUB-Q, ONCE, 2016 Medical Dosing Weight Center 75, kg, Start date: 03/15/16 22:18:00 ABRASIVE GRADER, Stop date: 03/15/16 22:18:00 ABRASIVE GRADER Insulin, Aspart, Notes: Roll in No Longer [place] Human palms of hands Active 2016 Medical gently; Do not Center shake vigorously. (Same as: NovoLOG) "single patient use only" WASTE: F/P - Black; E - Municipal Trash Bin Stable for 28 days at room temperature. Expires in days from Da te Cipro Notes: May No Longer [place] interfere Active 2016 Medical w/enteral Center feedings - Take 1 hr before or 2 hrs after antacids, dairy pdt & minerals. On empty stomach. Melatonin 3 MG Notes: (Same as: No Longer [place] Extended Release Melatonin) Active 2016 [facility] layla Tablet Center NovoLOG FlexPen Notes: Roll in No Longer [place] palms of hands Active [address] [place] [address] gently; Do not Center shake vigorously. (Same as: NovoLOG) "single patient use only" WASTE: F/P - Black; E - Municipal Trash Bin Stable for 28 days at room temperature. Expires in days from Da te Insulin regular 3 unit, Route: Inactive [place] SUB-Q, 2016 Medical TID-Before Center Meals, Dosing Weight 75, kg, Start date: 03/13/16 11:30:00 ABRASIVE GRADER, Duration: 30 day, Stop date: 04/12/16 6:30:00 ABRASIVE GRADER Insulin Glargine Notes: Same as: No Longer 03/13 [facility] Lantus) Do not Active 2016 Medical hold insulin Center without contacting prescriber WASTE: F/P - Black; E - Municipal Trash Bin Glucagon 1 mg, Route: IM, [place] PRN, Dosing 2017 Medical Weight 75, kg, Center PRN Blood Glucose Results, Start date: 03/13/16 10:07:00 ABRASIVE GRADER, Duration: 30 day, Stop date: 04/12/16 10:06:00 ABRASIVE GRADER Dextrose 50% 25 mL, Route: Inactive [place] Syringe IVP, Dosing 2017 Medical Weight 75, kg, Center PRN, PRN Blood Glucose Results, Start date: 03/13/16 10:07:00 ABRASIVE GRADER, Duration: 30 day, Stop date: 04/12/16 10:06:00 ABRASIVE GRADER Melatonin 3 MG Notes: (Same as: No Longer [place] Extended Release Melatonin) Active 2016 [facility] Tablet Center Glucagon 1 mg, Route: IM, No Longer [place] Drug form: Active 2017 Medical PDR/INJ, PRN, Center Dosing Weight 75, kg, PRN Blood Glucose Results, Start date: 03/12/16 15:24:00 ABRASIVE GRADER, Duration: 30 day, Stop date: 04/11/16 15:23:00 ABRASIVE GRADER Dextrose 50% 25 gm, 50 mL, No Longer [place] Syringe Route: IVP, Drug Active 2016 Medical Form: INJ, Center Dosing Weight 75, kg, PRN, PRN Blood Glucose Results, Start date: 03/12/16 15:24:00 ABRASIVE GRADER, Duration: 30 day, Stop date: 04/11/16 15:23:00 ABRASIVE GRADER Insulin, Aspart, Notes: Roll in No Longer [place] Human palms of hands Active 2017 Medical gently; Do not Center shake vigorously. (Same as: NovoLOG) "single patient use only" WASTE: F/P - Black; E - Municipal Trash Bin Stable for 28 days at room temperature. Expires in days from Da te sennosides, DETENTION Notes: (Same as: No Longer 03/12 [place] Senokot) Active 2017 Medical Center Saline Flush Notes: (Same as: No Longer [place] 0.9% BD Posiflush) Active 2017 Medical Center Keppra Notes: (Same No Longer [place] as:Keppra) Active 2017 Medical Center Buspar Notes: (Same As: [place] BuSpar) Active 2017 Medical Center insulin, Notes: Roll in No Longer [place] isophane palms of hands Active 2016 Medical gently; Do not Center shake vigorously. (Same as: Humulin N) Do not hold insulin without contacting prescriber WASTE: F/P - Black; E - Municipal Trash Bin Stable for 28 days at room temperature Expires in days from Da te Miralax Notes: Dissolve No Longer [place] as in 8 oz of water Active 2017 Medical or juice. (Same Center as: Miralax) Docusate Notes: (Same as: [place] Longer [place] Colace) (Do Not Active 2016 Medical Crush) Center Insulin, Aspart, Notes: Roll in Inactive [place] Human palms of hands 2017 Medical gently; Do not Center shake vigorously. (Same as: NovoLOG) "single patient use only" WASTE: F/P - Black; E - Municipal Trash Bin Stable for 28 days at room temperature. Expires in days from Da te Dextrose 50% 25 gm, 50 mL, Inactive [place] Syringe Route: IVP, Drug 2016 Medical Form: INJ, Center Dosing Weight 75, kg, PRN, PRN Blood Glucose Results, Start date: 03/12/16 3:15:00 ABRASIVE GRADER, Duration: 30 day, Stop date: 04/11/16 3:14:00 ABRASIVE GRADER Glucagon 1 mg, Route: IM, [place] Drug form: 2017 Medical PDR/INJ, PRN, Center Dosing Weight 75, kg, PRN Blood Glucose Results, Start date: 03/12/16 3:15:00 ABRASIVE GRADER, Duration: 30 day, Stop date: 04/11/16 3:14:00 ABRASIVE GRADER Sodium Chloride 1 gm, 1 tab, No Longer H [place] 1000 MG Oral Route: PO, Drug Active 2017 Med ical Tablet form: TAB, Q6H, Center Dosing Weight 90.009, kg, Start date: 03/12/16 0:00:00 ABRASIVE GRADER, Duration: 30 day, Stop date: 04/10/16 18:00:00 ABRASIVE GRADER Nimodipine Notes: (Same as No Longer [facility] Nimodipine oral Active 2016 [facility] suspension Center 30mg/ml) Instill dose into NG tube and then flush with 30ml of NS heparin Notes: porcine [place] heparin Active 2016 [facility] Seroquel Notes: (Same as: No Longer [place] SEROquel) Active 2016 [facility] Tylenol Notes: Max No Longer [facility] acetaminophen = Active 2016 [facility] 4000mg/day (4 Center gm/day). (Same as: Tylenol) Saline Flush Notes: (Same as: No Longer [place] 0.9% BD Posiflush) Active [address] [place] [address] POLYETHYLENE PO, Daily, 0 Active [place] GLYCOL [id number] Refill(s) 2017 [facility] Levetiracetam 500 mg = 5 mL, Active [facility] 100 MG/ML Oral PO, Q12H, 0 2016 Medic al Solution Refill(s) Center insulin isophane 40 unit, SUB-Q, Active [facility] (NPH) 100 Q8H, 0 Refill(s) 2017 Medic al units/mL human Center recombinant subcutaneous suspension heparin 5,000 unit = 1 Active [facility] mL, SUB-Q, Q8H, 2017 [facility] 0 Refill(s) Center bisacodyl 10 mg 10 mg = 1 supp, Active [facility] rectal DE, ONCE, PRN 2017 [facility] suppository Constipation | Cente r once, 0 Refill(s) insulin, Notes: Roll in No Longer [place] as isophane palms of hands Active 2016 [facility] gently; Do not Center shake vigorously. (Same as: Humulin N) Do not hold insulin without contacting prescriber WASTE: F/P - Black; E - Municipal Trash Bin Stable for 28 days at room temperature Expires in days from [place] Notes: Same as: No Longer [place] as Keppra Active [address] [place] [address] Nimodipine Notes: (Same as No Longer [place] Nimodipine oral Active [address] [place] [address] 30mg/ml) Instill dose into NG tube and then flush with 30ml of NS Sodium Chloride 1 gm, 1 tab, No Longer H [place] 1000 MG Oral Route: PO, Drug Active 2017 Med ical Tablet form: TAB, Q6H, Center Dosing Weight 90.009, kg, Priority: NOW, Start date: 03/09/16 18:11:00 ABRASIVE GRADER, Duration: 30 day, Stop date: 04/08/16 18:00:00 ABRASIVE GRADER Ancef + sodium Notes: (Same As: Inactive [place] chloride 0.9% Ancef, Kefzol) 2017 Med ical INJ 100 mL Cefazolin FOR Cente r IV SET ONLY MEDICATION WASTE Product Size: 1000 mg Product Wasted: ___ mg Sodium Chloride 1,000 mL, 1,000 Inactive [place] 0.154 MEQ/ML ml/hr, Infuse 2017 Medic al Injectable Over: 1 hr, Center Solution Route: IV, 1,000, Drug form: INJ, ONCE, Priority: STAT, Dosing Weight 90.009 kg, Start date: 03/08/16 6:25:00 ABRASIVE GRADER, Duration: 1 doses or times, Stop date: 03/08/16 6:25:00 ABRASIVE GRADER Sodium Chloride 250 mL, 250 Inactive [place] 0.154 MEQ/ML ml/hr, Infuse 2017 Medic al Injectable Over: 1 hr, Center Solution Route: IV, 250, Drug form: INJ, ONCE, Priority: STAT, Dosing Weight 90.009 kg, Start date: 03/07/16 14:24:00 ABRASIVE GRADER, Duration: 1 doses or times, Stop date: 03/07/16 14:24:00 ABRASIVE GRADER Sodium Chloride 500 mL, 500 Inactive [place] 0.154 MEQ/ML ml/hr, Infuse 2017 Medic al Injectable Over: 1 hr, Center Solution Route: IV, 500, Drug form: INJ, ONCE, Priority: STAT, Dosing Weight 90.009 kg, Start date: 03/06/16 7:54:00 ABRASIVE GRADER, Duration: 1 doses or times, Stop date: 03/06/16 7:54:00 ABRASIVE GRADER Sodium Chloride 500 mL, 500 Inactive [facility] 0.154 MEQ/ML ml/hr, Infuse 2017 Medic al Injectable Over: 1 hr, Center Solution Route: IV, 500, Drug form: INJ, ONCE, Priority: STAT, Dosing Weight 90.009 kg, Start date: 03/06/16 6:30:00 ABRASIVE GRADER, Duration: 1 doses or times, Stop date: 03/06/16 6:30:00 ABRASIVE GRADER Racepinephrine Notes: Inactive [place] [facility] 22.5 MG/ML (racepinephrine 2017 Medic al Inhalant *2.25% inh 0.5ml Center Solution SOLN) (Same as:S2) Dexamethasone Notes: Inactive [facility] Concentration: 2017 Medical 4mg/ml Center Ondansetron Notes: (Same as: Inactive [facility] Zofran) 2017 Medical MEDICATION WASTE Center Product Size: 4 mg Product Wasted: ___ mg Flumazenil Notes: (Same as: Inactive [facility] Romazicon) [address] [place] [address] Center Naloxone Notes: Same [place] N[place]an [address] [place] [address] Labetalol 10 mg, 2 mL, Inactive [facility] Route: IVP, Drug 2017 Medical form: INJ, Center Q5Min, Dosing Weight 90.009, kg, PRN Elevated BP, Start date: 03/04/16 17:03:00 ABRASIVE GRADER, Duration: 5 doses or times, Stop date: Limited # of times esmolol 10 mg, Route: Inactive [facility] IVP, Q5Min, 2017 Medical Dosing Weight Center 90.009, kg, PRN Other -See Comment, Start date: 03/04/16 17:03:00 ABRASIVE GRADER, Duration: 5 doses or times, Stop date: Limited # of times Morphine Notes: (Same Inactive [facility] as:MORPhine 2017 Medical Sulfate) [place] Omnipaque 300 150 ml, Route: Inactive [facility] INTRAARTERIAL, 2017 Medical Dosing Weight Center 90.009, kg, ONCE, Start date: 03/04/16 16:39:00 ABRASIVE GRADER, Stop date: 03/04/16 16:39:00 ABRASIVE GRADER Ampicillin Notes: (Same as: No Longer [place]en) Active 2017 Medical MEDICATION Center WASTE Product Size: 1000 mg Product Wasted: ___ mg Dulcolax Notes: (Same As: [place]er [place] Laxative Dulcolax, Active 2016 Medical Bisco-Lax) Center magnesium Notes: (Same as: Inactive [place] citrate 58.2 Citrate of 2017 Medical MG/ML Oral Magnesia) Center Solution Concentration: 1.745 gm / 30 mL Sodium Chloride 500 mL, 500 Inactive [place] 0.154 MEQ/ML ml/hr, Infuse 2017 Medic al Injectable Over: 1 hr, Center Solution Route: IV, 500, Drug form: INJ, ONCE, Priority: STAT, Dosing Weight 90.009 kg, Start date: 03/03/16 8:37:00 ABRASIVE GRADER, Duration: 1 doses or times, Stop date: 03/03/16 8:37:00 ABRASIVE GRADER Sodium Chloride 500 mL, 500 Inactive [place] 0.154 MEQ/ML ml/hr, Infuse 2017 Medic al Injectable Over: 1 hr, Center Solution Route: IV, 500, Drug form: INJ, ONCE, Priority: STAT, Dosing Weight 90.009 kg, Start date: 03/02/16 21:40:00 ABRASIVE GRADER, Duration: 1 doses or times, Stop date: 03/02/16 21:40:00 ABRASIVE GRADER Tylenol Notes: Max No Longer [place] acetaminophen = Active 2016 Medical 4000mg/day (4 Center gm/day). (Same as: Tylenol) Dulcolax Notes: (Same As: [place]er [place] Laxative Dulcolax, Active 2016 Medical Bisco-Lax) Center Sodium Chloride 1,000 mL, 1,000 Inactive [place] 0.154 MEQ/ML ml/hr, Infuse 2017 Medic al Injectable Over: 1 hr, Center Solution Route: IV, 1,000, Drug form: INJ, ONCE, Priority: STAT, Dosing Weight 90.009 kg, Start date: 03/02/16 9:04:00 ABRASIVE GRADER, Duration: 1 doses or times, Stop date: 03/02/16 9:04:00 ABRASIVE GRADER Dexamethasone Notes: Give with Inactive [place] food. (Same As: 2017 Medical Decadron) Center Zantac Notes: (Same No Longer [place] as:Zantac) Take Active 2016 Medical before or with Center meals Racepinephrine Notes: [place] Longer [place] 22.5 MG/ML (racepinephrine Active 2016 Medic al Inhalant *2.25% inh 0.5ml Center Solution SOLN) (Same as:S2) Albuterol 0.83 Notes: SEE RT No Longer H [place] MG/ML Inhalant DOCUMENTATION Active 2016 Med ical Solution (Same as: Center Proventil) Dulcolax Notes: (Same As: [place] Longer [place] Laxative Dulcolax, Active 2016 Medical Bisco-Lax) Center Fentanyl 1,000 microgram, No Longer [place] 20 mL, Rate: Active 2016 Medical Titrate, Start Center Dose: 50 microgram/hr, Titration: 25 microgram/hour every 15 minutes, Goal(s): RASS 0 to -1, Max Dose: 300 microgram/hr, Route: IV, Dosing Weight 90.009 kg, Total Volume: 20, Start date: 02/29/16 21:21:00 C... Dexamethasone Notes: Give with No Longer [place] food. (Same As: Active 2016 Medical Decadron) Center insulin, Notes: Roll in No Longer [place] as isophane palms of hands Active 2016 Medical gently; Do not Center shake vigorously. (Same as: Humulin N) Do not hold insulin without contacting prescriber WASTE: F/P - Black; E - [employer] Trash Bin Stable for 28 days at room temperature Expires in days from Da te sodium chloride 1,000 mL, Rate: No Longer [place] 0.9% 1000 ml INJ 100 ml/hr, Active 2016 Medi layla 1,000 mL Infuse over: 10 Center hr, Route: IV, Dosing Weight 90.009 kg, Total Volume: 1,000, Start date: 02/29/16 10:01:00 ABRASIVE GRADER, Stop date: 03/30/16 10:00:00 ABRASIVE GRADER magnesium Notes: (Same as: Inactive [place] citrate 58.2 Citrate of 2017 Medical MG/ML Oral Magnesia) Center Solution Concentration: 1.745 gm / 30 mL Streptococcus Notes: (Same as: Inactive [place] pneumoniae Prevnar 13) 2017 Medical serotype 1 Center capsular antigen diphtheria [id number] protein conjugate vaccine / Streptococcus pneumoniae serotype 14 capsular antigen diphtheria [id number] protein conjugate vaccine / Streptococcus pneumoniae serotype 18C capsular antigen d Miralax Notes: Dissolve No Longer [place] as in 8 oz of water Active 2017 Medical or juice. (Same Center as: Miralax) Tylenol Notes: Max No Longer [place] acetaminophen = Active 2017 Medical 4000mg/day (4 Center gm/day). (Same as: Tylenol) Sodium Chloride 500 mL, 500 No Longer [place] 0.154 MEQ/ML ml/hr, Infuse Active 2016 Medic al Injectable Over: 1 hr, Center Solution Route: IV, 500, Drug form: INJ, ONCE, Priority: STAT, Dosing Weight 90.009 kg, Start date: 02/28/16 23:36:00 ABRASIVE GRADER, Duration: 1 doses or times, Stop date: 02/28/16 23:36:00 ABRASIVE GRADER Sodium Chloride 1,000 mL, 1,000 Inactive [place] 0.154 MEQ/ML ml/hr, Infuse 2017 Medic al Injectable Over: 1 hr, Dike Solution Route: IV, 1,000, Drug form: INJ, ONCE, Priority: STAT, Dosing Weight 90.009 kg, Start date: 02/28/16 22:21:00 ABRASIVE GRADER, Duration: 1 doses or times, Stop date: 02/28/16 22:21:00 ABRASIVE GRADER Insulin regular 60 units) No Longer [place] WASTE: F/P - Active 2017 Medical Black; E - Center Municipal Trash Bin Stable for 28 days at room temperature Expires in days from Da te Dextrose 50% 12.5 gm, 25 mL, No Longer H [place] Syringe Route: IVP, Drug Active 2016 Medical Form: INJ, Center Dosing Weight 90.009, kg, PRN, PRN Blood Glucose Results, Start date: 02/28/16 10:21:00 ABRASIVE GRADER, Duration: 30 day, Stop date: 03/29/16 10:20:00 ABRASIVE GRADER Glucagon 1 mg, Route: IM, No Longer [place] Drug form: Active 2017 Medical PDR/INJ, PRN, Center Dosing Weight 90.009, kg, PRN Blood Glucose Results, Start date: 02/28/16 10:21:00 ABRASIVE GRADER, Duration: 30 day, Stop date: 03/29/16 10:20:00 ABRASIVE GRADER insulin, Notes: Roll in No Longer [place] as isophane palms of hands Active 2017 Medical gently; Do not Center shake vigorously. (Same as: Humulin N) Do not hold insulin without contacting prescriber WASTE: F/P - Black; E - Municipal Trash Bin Stable for 28 days at room temperature Expires in days from Da te Regular Insulin, 60 units) Inactive [place] Human 100 UNT/ML WASTE: F/P - 2016 Me dical Injectable Black; E - Center Solution Municipal Trash Bin Stable for 28 days at room temperature Expires in days from Da te Dextrose 50% 6.25 gm, 12.5 Inactive [place] Syringe mL, Route: IVP, 2017 Medical Drug Form: INJ, Center Dosing Weight 90.009, kg, PRN, PRN Abnormal Lab Result, Start date: 02/28/16 6:56:00 ABRASIVE GRADER, Duration: 30 day, Stop date: 03/29/16 6:55:00 ABRASIVE GRADER heparin Notes: porcine No Longer [place] heparin Active 2017 Medical [place]ike Famotidine Notes: (Same as: No Longer [place] Pepcid) Active 2017 Medical Center Levetiracetam Notes: (Same No Longer [place] 500 MG Oral as:Keppra) Active 2017 Medical Tablet [Keppra] Center Dexamethasone Notes: Give with No Longer [place] food. (Same As: Active 2017 Medical Decadron) Center chlorhexidine Notes: (Same As: No Longer [place] gluconate 1.2 Peridex) Active 2017 Medical MG/ML Mouthwash Center Sodium Chloride 1,000 mL, 1,000 Inactive [place] 0.154 MEQ/ML ml/hr, Infuse 2017 Medic al Injectable Over: 1 hr, Center Solution Route: IV, 1,000, Drug form: INJ, ONCE, Priority: STAT, Dosing Weight 90.009 kg, Start date: 02/27/16 2:42:00 ABRASIVE GRADER, Duration: 1 doses or times, Stop date: 02/27/16 2:42:00 ABRASIVE GRADER Cefazolin Notes: (Same As: Inactive Trev cummings Ancef, Kefzol) 2017 Medical Cefazolin FOR Center IV SET ONLY MEDICATION WASTE Product Size: 1000 mg Product Wasted: _0_ mg sodium chloride Notes: No Longer [place] as 3% INJ 500 mL "Administer by Active 2016 Med ical central venous Center catheter or a peripherally inserted central catheter (PICC) line. 3% Sodium Chloride may be infused via peripheral administration into large vein (antecubital) only in the case of emergency for short term use until a central line can be inserted" (Same as: Hypertonic Saline 3%) concentration = 0.513 mEq/mL Sodium Chloride 120 mEq, 30 mL, No Longer [place] 4 MEQ/ML 60 ml/hr, Infuse Active 2016 Medica l Injectable Over: 30 Center Solution minutes, Route: IV, 30, Drug form: INJ, ONCE, Dosing Weight 90.009 kg, Start date: 02/26/16 22:47:00 ABRASIVE GRADER, Duration: 1 doses or times, Stop date: 02/26/16 22:47:00 ABRASIVE GRADER Mannitol Notes: (Same as: No Longer [place] cumm[place] Osmitrol) Infuse Active 2016 Medical through 5 micron Center or smaller filter WASTE: F/P - Sink; E - Municipal Trash Bin chlorhexidine Notes: (Same As: No Longer [place] gluconate 1.2 Peridex) Active 2017 Medical MG/ML Mouthwash Center Calcium Notes: (Same As: No Longer [place] Carbonate 500 MG Tums) Calcium Active 2016 M edical Chewable Tablet Carbonate 500 mg Center = 200 mg elemental calcium Dose = mg calcium carbonate ( mg elemental calcium) Calcium Notes: WASTE: No Longer [place] Gluconate F/P - Sink; E - Active 2016 Medica l Municipal Trash Center Bin Magnesium Notes: WASTE: No Longer [place] as Sulfate F/P - Sink; E - Active 2016 Medical Municipal Trash Center Bin potassium Notes: (Same as: No Longer [place] phosphate-sodium Phos-NaK) Each Active 2016 Medical phosphate 250 1.5 [address] pkt has [address] mg-280 mg-160 mg 250mg oral powder for phosphorous. Mix reconstitution w/2.5oz water and stir. Magnesium Oxide Notes: (Same as: No Longer 02/26 [place] Mag-Ox 400) Active 2016 [facility] Magnesium oxide Center [id number] elemental magnesium Dose=____mg magnesium oxide (___mg elemental magnesium) potassium Notes: (Same as: No Longer [place] phosphate + K Phosphate.) 1 Active 2016 Med ical sodium chloride mMol phoshate Ce nter 0.9% INJ 250 mL has 1.47 mEq potassium Infuse over 4 hours sodium phosphate 30 mmol, 10 mL, No Longer 02/26 [place] + sodium Route: IVPB, Active 2016 Medical chloride 0.9% PRN, Dosing Center INJ 250 mL Weight 90.009, kg, PRN Abnormal Lab Result, Start date: 02/26/16 20:51:00 ABRASIVE GRADER, Duration: 30 day, Stop date: 03/27/16 20:50:00 ABRASIVE GRADER, FOR ICU USE ONLY potassium Notes: (Same as: No Longer [place] chloride Potassium Active 2016 Medical Chloride) Center Dextrose 50% 12.5 gm, 25 mL, No Longer [place] [facility] Syringe Route: IVP, Drug Active 2016 Medical Form: INJ, Center Dosing Weight 90.009, kg, PRN, PRN Blood Glucose Results, Start date: 02/26/16 20:50:00 ABRASIVE GRADER, Duration: 30 day, Stop date: 03/27/16 20:49:00 ABRASIVE GRADER Insulin regular Notes: (Same as: No Longer 02/26 [place] 100 unit + Humulin R and Active 2016 Medical sodium chloride NovoLIN R) Cente r 0.9% INJ 99 mL WASTE: F/P - Black; E - Municipal Trash Bin (Do not shake) Fentanyl 1,000 microgram, No Longer [place] 20 mL, Rate: Active 2017 Medical Titrate, Start Center Dose: 50 microgram/hr, Titration: 25 microgram/hour every 15 minutes, Goal(s): RASS 0 to -1, Max Dose: 300 microgram/hr, Route: IV, Dosing Weight 90.009 kg, Total Volume: 20, Start date: 02/26/16 20:48:00 C... Dilaudid Notes: Same as No Longer [place] as Dilaudid Active 2016 Medical Center Acetaminophen Notes: Do not No Longer [place] 325 MG / exceed 4gm/day Active 2017 Medical Hydrocodone of Center Bitartrate 10 MG acetaminophen. Oral Tablet (Same as: [place] [[place] 10/325] 325/10) Ancef 1 gm, Route: Inactive [place] IVPB, ONCE, 2017 Medical Dosing Weight Center 90.009, kg, Start date: 02/26/16 17:15:00 ABRASIVE GRADER, Stop date: 02/26/16 17:15:00 ABRASIVE GRADER Ancef 2 gm, Route: IV, Inactive [place] as ONCE, Dosing 2017 Medical Weight 90.909, Center kg, Start date: 02/26/16 14:15:00 ABRASIVE GRADER, Duration: 1 doses or times, Stop date: 02/26/16 14:15:00 ABRASIVE GRADER, Surgical Prophylaxis Only; For patients < 120 kg Propofol 10 1,000 mg, 100 No Longer [place] MG/ML Injectable mL, Rate: Active 2016 Medic al Suspension Titrate, Start Center Dose: 5 microgram/kg/min , Titration: 5 microgram/kg/min every 15 min, Goal(s): MAP 70-100, Max Dose: 50 microgram/kg/min , Route: IV, Dosing Weight 90.909 kg, Total Volume: 100, Start date: 02/26/16 11:59:00 ABRASIVE GRADER,... Fentanyl Notes: (Same as: [place] Sublimaze) 2017 Medical Preservative Center free. chlorhexidine Notes: (Same As: No Longer [place] gluconate 1.2 Peridex) Active 2017 Medical MG/ML Mouthwash Center Ancef + sodium Notes: (Same As: Inactive [place] chloride 0.9% Ancef, Kefzol) 2017 Med ical INJ 100 mL MEDICATION Cente r WASTE Product Size: 1000 mg Product Wasted: ___ mg Docusate Notes: (Same as: No Longer [place] Colace) Active 2017 Medical Center Famotidine Notes: (Same as: No Longer [place] Pepcid) Active 2017 Medical Center sennosides, DETENTION Notes: (Same as: No Longer 02/25 [place] Senokot) Active 2016 Medical Center Levetiracetam Notes: Same as No Longer [place] [facility] Keppra Mix with Active 2017 Medical 100 mL NS, LR or Center D5W MEDICATION WASTE Product Size: 500 mg Product Wasted: ___ mg Omnipaque 350 150 ml, Route: Inactive [place] INTRAARTERIAL, 2017 Medical Dosing Weight Center 90.909, kg, ONCE, Start date: 02/26/16 8:56:00 ABRASIVE GRADER, Stop date: 02/26/16 8:56:00 ABRASIVE GRADER Nimodipine Notes: (Same as No Longer [place] Nimodipine oral Active 2016 Medical suspension Center 30mg/ml) Instill dose into NG tube and then flush with 30ml of NS Dexamethasone Notes: No Longer [place] Concentration: Active 2016 [facility] 4mg/ml Center Keppra 500 mg, Route: Inactive [place] IV, ONCE, Dosing 2017 Medical Weight 90.909, Center kg, Start date: 02/26/16 5:39:00 ABRASIVE GRADER, Stop date: 02/26/16 5:39:00 ABRASIVE GRADER Ondansetron 4 mg, Route: Inactive [place] as IVP, Drug form: 2017 Medical INJ, ONCE, Center Dosing Weight 90.909, kg, Priority: STAT, Start date: 02/26/16 5:31:00 ABRASIVE GRADER, Stop date: 02/26/16 5:31:00 ABRASIVE GRADER Morphine 4 mg, Route: Inactive [place] IVP, ONCE, 2017 Medical Dosing Weight Center 90.909, kg, Priority: STAT, Start date: 02/26/16 5:31:00 ABRASIVE GRADER, Stop date: 02/26/16 5:31:00 ABRASIVE GRADER Dextrose 50% 6.25 gm, 12.5 Inactive [place] Syringe mL, Route: IVP, 2017 Medical Drug Form: INJ, Center Dosing Weight 90.909, kg, PRN, PRN Abnormal Lab Result, Start date: 02/26/16 4:09:00 ABRASIVE GRADER, Duration: 30 day, Stop date: 03/27/16 4:08:00 ABRASIVE GRADER Regular Insulin, 60 units) Inactive [place] Human 100 UNT/ML WASTE: F/P - 2017 Me dical Injectable Black; E - Center Solution Municipal Trash Bin Stable for 28 days at room temperature Expires in days from Da te Sodium Chloride 1,000 mL, Rate: No Longer [place] 0.154 MEQ/ML 75 ml/hr, Infuse Active 2016 Ca dical Injectable over: 13.3 hr, Center Solution Route: IV, Dosing Weight 90.909 kg, Total Volume: 1,000, Start date: 02/26/16 4:09:00 ABRASIVE GRADER, Duration: 30 day, Stop date: 03/27/16 4:08:00 ABRASIVE GRADER iodixanol 100 mL, Route: Inactive [place] as IVP, Drug Form: 2017 Medical SOLN, Dosing Center Weight 90.909, kg, ONCALL, STAT, Start date: 02/26/16 3:43:00 ABRASIVE GRADER, Duration: 1 doses or times, Dose = 2.2ml/kg, Max dose = 100ml -- "To be infused by Radiology Staff ONLY" Saline Flush Notes: Same as: No Longer [place] 0.9% BD Posiflush Active 2016 [facility] Sterile Dike Allergies, Adverse Reactions, Alerts No Known Medication Allergies Immunizations Immunization Date Given Site Status Last Comments Source Updated pneumococcal 06/20/2016 Not Given [place] as 23-valent vaccine Ca dical Center pneumococcal 06/20/2016 Not Given [place] as 23-valent Medical vaccine<sup>1</villar Ce nter p> pneumococcal 03/03/2016 Right completed [facility] [place] as 13-valent vaccine Deltoid Ca dical Center Results Order Name Results Value Reference Date Interpretation Comments Imelda rce Range CHEM PANEL Phosphorus 5.0 2.5 - 4.5 08/26 [place] /2017 [facility] Center CHEM PANEL Magnesium Lvl 2.1 1.8 - 2.4 08/26 [facility] CHEM PANEL eGFR 76 08/26 Result Comment: The Medical eGFR is Center calculated using the CKD-EPI formula. In most young, healthy individuals the eGFR will be >90 mL/min/1.73m2 . The eGFR declines with age. An eGFR of 60-89 may be normal in some populations, particularly the elderly, for whom the CKD-EPI formula has not been extensively validated. Use of the eGFR is not recommended in the following populations:< br/>
Ruth viduals with unstable creatinine concentration s, including patients and those with serious co-morbid conditions.<b r/>
Patie nts with extremes in muscle mass or diet.

The data above are obtained from the National Kidney Disease Education Program (NKDEP) which additionally recommends that when the eGFR is used in patients with extremes of body mass index for purposes of drug dosing, the eGFR should be multiplied by the estimated BMI. CHEM PANEL Creatinine 0.81 0.50 - 08/26 [facility] Lvl 1.40 [facility] CHEM PANEL Glucose Lvl 132 70 - 99 08/[address] CHEM PANEL Sodium Lvl 140 135 - 145 08/[address] CHEM PANEL Potassium Lvl 4.6 3.5 - 5.1 08/26 [facility] CHEM PANEL BUN 19 7 - 22 08/[address] CHEM PANEL CO2 25 24 - 32 08/[address] CHEM PANEL Calcium Lvl 9.2 8.5 - 10.5 08/26 [place] [facility] CHEM PANEL Chloride Lvl 104 95 - 109 08/26 a s [facility] CHEM PANEL AGAP 15.6 10.0 - 07 20.0 [facility] HEMATOLOGY Monocytes 7.2 2.0 - 12.0 08/26 [facility]2017 [facility] HEMATOLOGY Segs 51.4 45.0 - 08/26 [place] 75.0 [facility] HEMATOLOGY Lymphocytes 38.6 20.0 - 07 [place] 40.0 [facility] HEMATOLOGY Lymphocytes # 3.2 1.0 - 5.5 08/26 [facility] HEMATOLOGY Eosinophils 1.9 0.0 - 4.0 08/26 a s [facility] HEMATOLOGY Basophils 0.9 0.0 - 1.0 08/26 [facility] HEMATOLOGY Neutrophils # 4.2 1.5 - 8.1 08/26 [place] [facility] HEMATOLOGY Eosinophils # 0.2 0.0 - 0.5 08/26 [facility] xa [facility] HEMATOLOGY Basophils # 0.1 0.0 - 0.2 08/26 a s [facility] HEMATOLOGY Monocytes # 0.6 0.0 - 0.8 08/26 s [facility] HEMATOLOGY WBC 8.2 3.7 - 10.4 08/26 [facility] HEMATOLOGY Hct 38.7 36.0 - 08/26 [place] 48.0 [facility] HEMATOLOGY RBC 4.18 4.20 - 08/26 [place] 5.40 [facility] HEMATOLOGY Hgb 13.1 12.0 - 08/26 16.0 [facility] HEMATOLOGY MPV 9.1 7.4 - 10.4 08/26 [facility] HEMATOLOGY RDW 13.1 11.5 - 08/26 [place] 14.5 [facility] HEMATOLOGY Platelet 230 133 - 450 08/26 [facility] HEMATOLOGY MCH 31.4 27.0 - 08/26 31.0 [facility] HEMATOLOGY MCHC 33.9 32.0 - 08/26 [place] 36.0 [facility] HEMATOLOGY MCV 92.4 80.0 - 08/26 [place] 98.0 [facility] PARATHYROID Ca Ion WB 1.11 1.05 - 08/26 [place] PROFILE 1. [facility] PARATHYROID Ca Norm WB 1.11 1.05 - 08/26 [place] PROFILE 1. [facility] LIPIDS VLDL 22 08/24 [facility] LIPIDS LDL 67 <=99 mg/dL 08/24 [facility] (Calculated) [facility] LIPIDS HDL 30 >=61 mg/dL 08/24 [facility] LIPIDS Chol 119 <=199 08/24 [facility] mg/dL [facility] LIPIDS Trig 112 <=149 08/24 mg/dL [facility] LIPIDS CHD Risk 3.97 3.90 - 08/24 [facility] [place] 5.80 [facility] SPECIAL Hgb A1C 8.1 <=5.6 % 08/24 [facility] CHEMISTRY /2017 [facility] URINE AND UA RBC None Seen 0 - 2 08/24 [facility] (08/24/17 3:04 PM) /2017 [facility] URINE AND UA WBC None Seen None Seen 08/24 [facility] (08/24/17 3:04 PM) /2017 [facility] URINE AND UA Sq Epi Rare /LPF Few /LPF 08/24 [facility] STOOL /2017 [facility] URINE AND UA 0.2 0.1 - 1.0 08/24 [facility] Urobilinogen /2017 [facility] URINE AND UA Blood Negative Negative 08/24 [facility] (08/24/17 3:04 PM) /2017 [facility] URINE AND UA Nitrite Negative Negative 08/24 [facility] (08/24/17 3:04 PM) /2017 [facility] URINE AND UA Leuk Est Negative Negative 08/24 [facility] (08/24/17 3:04 PM) /2017 [facility] URINE AND UA Bili Negative Negative 08/24 [facility] *NA* /2017 [facility] (08/24/17 3:04 PM) Dike URINE AND UA Ketones Negative Negative 08/24 [facility] mg/dL mg/dL /2017 [facility] URINE AND UA Protein Negative Negative 08/24 [facility] mg/dL mg/dL /[address] [place] [address] URINE AND UA Glucose Negative Negative 08/24 [facility] mg/dL mg/dL /[address] [place] [address] URINE AND UA pH 6.0 5.0 - 8.0 08/24 [facility] /2017 [facility] URINE AND UA Spec Grav 1.010 <=1.030 08/24 [facility] STOOL /2017 [facility] URINE AND UA Turbidity Clear Clear 08/24 [facility] (08/24/17 3:04 PM) /2017 [facility] URINE AND UA Color Yellow Yellow 08/24 [facility] *NA* /2017 [facility] (08/24/17 3:04 PM) Dike CARDIAC Troponin-I <0.02 0.00 - 08/24 [facility] ENZYMES 0.40 [facility] CARDIAC Total CK 88 12 - 191 08/24 [facility] ENZYMES /[address] [place] [address] ELECTROLYTE AGAP 15.5 10.0 - 08/24 [facility] S 20.0 [facility] ELECTROLYTE CO2 23 24 - 32 08/24 [facility] ELECTROLYTE Calcium Lvl 9.0 8.5 - 10.5 08/24 [facility] ELECTROLYTE Chloride Lvl 105 95 - 109 08/24 [facility] ELECTROLYTE eGFR 77 08/24 Result [facility] Comment: The Medical eGFR is Center calculated using the CKD-EPI formula. In most young, healthy individuals the eGFR will be >90 mL/min/1.73m2 . The eGFR declines with age. An eGFR of 60-89 may be normal in some populations, particularly the elderly, for whom the CKD-EPI formula has not been extensively validated. Use of the eGFR is not recommended in the following populations:< br/>
Ruth viduals with unstable creatinine concentration s, including patients and those with serious co-morbid conditions.<b r/>
Patie nts with extremes in muscle mass or diet.

The data above are obtained from the National Kidney Disease Education Program (NKDEP) which additionally recommends that when the eGFR is used in patients with extremes of body mass index for purposes of drug dosing, the eGFR should be multiplied by the estimated BMI. ELECTROLYTE Potassium Lvl 4.5 3.5 - 5.1 08/24 Result [facility] Comment: [facility] Slightly Hemolyzed. ELECTROLYTE Sodium Lvl 139 135 - 145 08/24 [facility] ELECTROLYTE BUN 15 7 - 22 08/24 [facility] 2017 [facility] ELECTROLYTE Creatinine 0.80 0.50 - 08/24 [facility] Lvl 1.40 [facility] ELECTROLYTE Glucose Lvl 92 70 - 99 08/24 [facility] 2017 [facility] HEMATOLOGY Monocytes # 0.7 0.0 - 0.8 08/24 [facility] 2017 [facility] HEMATOLOGY Basophils 0.7 0.0 - 1.0 08/24 [facility]2017 [facility] HEMATOLOGY Neutrophils # 7.1 1.5 - 8.1 08/24 [facility]2017 [facility] HEMATOLOGY Eosinophils # 0.1 0.0 - 0.5 08/[address] HEMATOLOGY Basophils # 0.1 0.0 - 0.2 08/24 [facility] 2017 [facility] HEMATOLOGY Lymphocytes # 4.4 1.0 - 5.5 08/24 [place]2017 [facility] HEMATOLOGY Segs 57.1 45.0 - 08/24 [place] 75.0 /2017 [facility] HEMATOLOGY Lymphocytes 35.6 20.0 - 08/24 [place] 40.0 /2017 [facility] HEMATOLOGY Monocytes 5.6 2.0 - 12.0 08/24 [facility] HEMATOLOGY Eosinophils 1.0 0.0 - 4.0 08/[place] [facility] HEMATOLOGY PT 13.2 12.0 - 08/24 [place] 14.7 /2017 [facility] HEMATOLOGY INR 1.00 0.85 - 08/24 [place] 1.17 /2017 [facility] HEMATOLOGY MPV 8.0 7.4 - 10.4 08/24 [facility] HEMATOLOGY MCHC 33.4 32.0 - 08/24 [place] 36.0 /2017 [facility] HEMATOLOGY RDW 13.3 11.5 - 08/24 [place] 14.5 /2017 [facility] HEMATOLOGY MCH 31.0 27.0 - 08/24 [place] 31.0 [facility] HEMATOLOGY Platelet 269 133 - 450 08/24 [facility] HEMATOLOGY Hct 40.1 36.0 - 08/24 [place] 48.0 /2017 [facility] HEMATOLOGY Hgb 13.4 12.0 - 08/24 [place] 16.0 /2017 [facility] HEMATOLOGY MCV 92.8 80.0 - 08/24 [place] 98.0 /2018 [facility] HEMATOLOGY WBC 12.4 3.7 - 10.4 08/24 [facility] HEMATOLOGY RBC 4.32 4.20 - 08/24 [place] 5.40 /2017 [facility] HEMATOLOGY PTT 25.6 22.9 - 08/24 [place] 35.8 2018 [facility] CHEM PANEL eGFR 89 06/20 Result Comment: The Medical eGFR is Center calculated using the CKD-EPI formula. In most young, healthy individuals the eGFR will be >90 mL/min/1.73m2 . The eGFR declines with age. An eGFR of 60-89 may be normal in some populations, particularly the elderly, for whom the CKD-EPI formula has not been extensively validated. Use of the eGFR is not recommended in the following populations:< br/>
Ruth viduals with unstable creatinine concentration s, including patients and those with serious co-morbid conditions.<b r/>
Patie nts with extremes in muscle mass or diet.

The data above are obtained from the National Kidney Disease Education Program (NKDEP) which additionally recommends that when the eGFR is used in patients with extremes of body mass index for purposes of drug dosing, the eGFR should be multiplied by the estimated BMI. CHEM PANEL AGAP 15.2 10.0 - 06/20 20.0 [facility] CHEM PANEL Calcium Lvl 8.7 8.5 - 10.5 06/20 [facility] CHEM PANEL Creatinine 0.71 0.50 - 06/20 [place] Lvl 1.40 [facility] CHEM PANEL Potassium Lvl 4.2 3.5 - 5.1 06/20 [facility] CHEM PANEL Sodium Lvl 138 135 - 145 06/20 [facility] CHEM PANEL CO2 25 24 - 32 06/20 2016 [facility] CHEM PANEL Chloride Lvl 102 95 - 109 06/20 [place] [facility] CHEM PANEL Glucose Lvl 161 70 - 99 06/20 [facility] CHEM PANEL BUN 13 7 - 22 06/20 [facility] CHEM PANEL Magnesium Lvl 2.1 1.8 - 2.4 06/20 [facility] CHEM PANEL Phosphorus 3.3 2.5 - 4.5 06/20 [facility] HEMATOLOGY RBC 4.34 4.20 - 06/20 [place] 5.40 [facility] HEMATOLOGY WBC 9.5 3.7 - 10.4 06/20 [facility] HEMATOLOGY Hgb 13.4 12.0 - 06/20 16.0 [facility] HEMATOLOGY MCHC 33.8 32.0 - 06/20 [place] 36.0 [facility] HEMATOLOGY MCH 30.8 27.0 - 06/20 31.0 [facility] HEMATOLOGY RDW 13.2 11.5 - 06/20 14.5 [facility] HEMATOLOGY MCV 91.0 80.0 - 06/20 [place] 98.0 [facility] HEMATOLOGY Hct 39.5 36.0 - 06/20 [place] 48.0 [facility] HEMATOLOGY Platelet 248 133 - 450 06/20 [facility] HEMATOLOGY MPV 8.0 7.4 - 10.4 06/20 [facility] HEMATOLOGY Segs 77.7 45.0 - 06/20 [place] 75.0 [facility] HEMATOLOGY Lymphocytes 19.0 20.0 - 06/20 [place] 40.0 [facility] HEMATOLOGY Monocytes # 0.3 0.0 - 0.8 06/20 s [facility] HEMATOLOGY Lymphocytes # 1.8 1.0 - 5.5 06/20 [place] [facility] HEMATOLOGY Monocytes 3.1 2.0 - 12.0 06/20 [facility] HEMATOLOGY Basophils 0.2 0.0 - 1.0 06/20 [facility] HEMATOLOGY Segs-Bands # 7.4 1.5 - 8.1 06/20 [facility] PARATHYROID Ca Norm WB 1.10 1.05 - 06/20 [place] PROFILE 1. [facility] PARATHYROID Ca Ion WB 1.10 1.05 - 06/20 [facility] PROFILE 1. [facility] BACTERIAL - MRSA by PCR Negative 06/19 [facility] SEROLOGY (06/19/16 3:52 PM) [facility] HEMATOLOGY PTT 27.8 22.9 - 06/19 [place] 35.8 [facility] HEMATOLOGY PT 14.0 12.0 - 06/19 14.7 [facility] HEMATOLOGY INR 1.06 0.85 - 06/19 [place] 1. [facility] HEMATOLOGY Plav Effect 268 06/19 Plt [facility] HEMATOLOGY ASA Effect 431 06/19 [facility] Plt [facility] HEMATOLOGY Plav Effect see note 06/19 Result [facility] Plt Comment: [facility] asked Dike for results to be removed,06/19 08:45 HEMATOLOGY ASA Effect see note 06/19 Result [facility] Plt Comment: [facility] asked Dike to remove results,06/19 08:45 ELECTROLYTE Potassium Lvl 4.2 3.5 - 5.1 06/19 [place] [facility] ELECTROLYTE Creatinine 0.61 0.50 - 06/19 [facility] S Lvl 1.40 [facility] ELECTROLYTE Sodium Lvl 139 135 - 145 06/19 [place] [facility] ELECTROLYTE eGFR 95 06/19 Result [facility] Comment: The Medical eGFR is Center calculated using the CKD-EPI formula. In most young, healthy individuals the eGFR will be >90 mL/min/1.73m2 . The eGFR declines with age. An eGFR of 60-89 may be normal in some populations, particularly the elderly, for whom the CKD-EPI formula has not been extensively validated. Use of the eGFR is not recommended in the following populations:< br/>
Ruth viduals with unstable creatinine concentration s, including patients and those with serious co-morbid conditions.<b r/>
Patie nts with extremes in muscle mass or diet.

The data above are obtained from the National Kidney Disease Education Program (NKDEP) which additionally recommends that when the eGFR is used in patients with extremes of body mass index for purposes of drug dosing, the eGFR should be multiplied by the estimated BMI. ELECTROLYTE Chloride Lvl 103 95 - 109 06/19 [place] [facility] ELECTROLYTE CO2 26 24 - 32 06/19 [facility] ELECTROLYTE Calcium Lvl 9.2 8.5 - 10.5 06/19 [place] [facility] ELECTROLYTE AGAP 14.2 10.0 - 06/19 [facility] S 20.0 [facility] ELECTROLYTE BUN 20 7 - 22 06/19 [facility] /2016 [facility] ELECTROLYTE Glucose Lvl 123 70 - 99 06/19 [facility] HEMATOLOGY Platelet 249 133 - 450 06/19 [facility] HEMATOLOGY RDW 12.3 11.5 - 06/19 [place] 14.5 [facility] HEMATOLOGY MCHC 33.1 32.0 - 06/19 [place] 36.0 [facility] HEMATOLOGY MPV 7.9 7.4 - 10.4 06/19 2016 [facility] HEMATOLOGY Hct 40.4 36.0 - 06/19 [place] 48.0 [facility] HEMATOLOGY Hgb 13.4 12.0 - 06/19 [place] 16.0 [facility] HEMATOLOGY WBC 10.0 3.7 - 10.4 06/19 2016 [facility] HEMATOLOGY RBC 4.43 4.20 - 05 [place] 5.40 [facility] HEMATOLOGY MCV 91.1 80.0 - 06/19 [place] 98.0 [facility] HEMATOLOGY MCH 30.2 27.0 - 06/19 [place] 31.0 [facility] HEMATOLOGY Eosinophils # 0.1 0.0 - 0.5 06/19 [facility] HEMATOLOGY Basophils # 0.0 0.0 - 0.2 06/19 [facility] HEMATOLOGY Basophils 0.0 0.0 - 1.0 06/19 [facility] HEMATOLOGY Eosinophils 1.2 0.0 - 4.0 06/19 [facility] HEMATOLOGY Monocytes # 0.4 0.0 - 0.8 06/19 [facility] HEMATOLOGY Lymphocytes # 4.7 1.0 - 5.5 06/19 [facility] HEMATOLOGY Segs-Bands # 4.8 1.5 - 8.1 06/19 [facility] HEMATOLOGY Segs 47.6 45.0 - 06/19 [place] 75.0 [facility] HEMATOLOGY Lymphocytes 46.9 20.0 - 06/19 [place] 40.0 [facility] HEMATOLOGY Monocytes 4.3 2.0 - 12.0 06/[address] [place] [address] URINE AND UA Mucus Few /LPF None Seen 03/23 [facility] STOOL /LPF [facility] URINE AND UA WBC 1 0 - 5 03/23 [facility] URINE AND UA RBC <1 0 - 2 03/23 [facility] [address] [place] [address] URINE AND UA Bacteria Occasional None Seen 03/23 [facility] STOOL /HPF /HPF [facility] URINE AND UA <=1.0 0.1 - 1.0 03/23 [facility] Urobilinogen mg/dL [facility] URINE AND UA Turbidity Clear Clear 03/23 [facility] (03/23/16 4:55 PM) /2016 [facility] URINE AND UA Spec Grav 1.011 <=1.030 03/[address] URINE AND UA pH 6.0 5.0 - 8.0 03/23 [facility] [address] [place] [address] URINE AND UA Protein Negative Negative 03/23 [facility] mg/dL mg/dL [address] [place] [address] URINE AND UA Color Yellow Yellow 03/23 [facility] *NA* /2016 [facility] (03/23/16 4:55 PM) Center URINE AND UA Sq Epi Few /LPF Few /LPF 03/23 [facility] URINE AND UA Glucose Negative Negative 03/23 [facility] mg/dL mg/dL [facility] URINE AND UA Ketones Negative Negative 03/23 [facility] mg/dL mg/dL [facility] URINE AND UA Bili Negative Negative 03/23 [facility] *NA* /2016 Medical (03/23/16 4:55 PM) Center URINE AND UA Blood Negative Negative 03/23 [facility] (03/23/16 4:55 PM) [facility] URINE AND UA Nitrite Negative Negative 03/23 [facility] (03/23/16 4:55 PM) [facility] URINE AND UA Leuk Est Negative Negative 03/23 [facility] (03/23/16 4:55 PM) [facility] CHEM PANEL B/C Ratio 21 6 - 25 03/22 [facility] CHEM PANEL AGAP 15.2 10.0 - 03/22 [facility] 20.0 [facility] CHEM PANEL Globulin 4.0 2.7 - 4.2 03/22 [facility] CHEM PANEL A/G Ratio 0.8 0.7 - 1.6 03/22 [facility] CHEM PANEL eGFR 76 03/22 [facility] Comment: [facility] eGFR is Center calculated using the CKD-EPI formula. In most young, healthy individuals the eGFR will be >90 mL/min/1.73m2 . The eGFR declines with age. An eGFR of 60-89 may be normal in some populations, particularly the elderly, for whom the CKD-EPI formula has not been extensively validated. Use of the eGFR is not recommended in the following populations:< br/>
Ruth viduals with unstable creatinine concentration s, including patients and those with serious co-morbid conditions.<b r/>
Patie nts with extremes in muscle mass or diet.

The data above are obtained from the National Kidney Disease Education Program (NKDEP) which additionally recommends that when the eGFR is used in patients with extremes of body mass index for purposes of drug dosing, the eGFR should be multiplied by the estimated BMI. CHEM PANEL Bili Total 0.3 0.2 - 1.3 03/22 [facility] CHEM PANEL CO2 28 24 - 32 03/22 2016 [facility] CHEM PANEL Calcium Lvl 9.2 8.5 - 10.5 03/22 [facility] CHEM PANEL Albumin Lvl 3.1 3.5 - 5.0 03/22 [facility] CHEM PANEL Potassium Lvl 4.2 3.5 - 5.1 03/22 [facility] CHEM PANEL Chloride Lvl 97 95 - 109 03/22 [facility] CHEM PANEL Total Protein 7.1 6.4 - 8.4 03/22 [facility] CHEM PANEL AST 34 0 - 37 03/22 2016 [facility] CHEM PANEL ALT 59 0 - 65 03/22 2016 [facility] CHEM PANEL Alk Phos 86 39 - 136 03/22 2016 [facility] CHEM PANEL Glucose Lvl 194 70 - 99 03/[address] CHEM PANEL Sodium Lvl 136 135 - 145 03/22 2016 [facility] CHEM PANEL BUN 17 7 - 22 03/22 2016 [facility] CHEM PANEL Creatinine 0.82 0.50 - 03/22 [facility] Lvl 1.40 [facility] HEMATOLOGY Segs-Bands # 4.2 1.5 - 8.1 03/22 [facility] HEMATOLOGY Lymphocytes # 2.5 1.0 - 5.5 03/22 [facility] HEMATOLOGY Basophils 0.6 0.0 - 1.0 03/22 [facility] HEMATOLOGY Eosinophils 2.1 0.0 - 4.0 03/22 [facility] HEMATOLOGY Monocytes # 0.6 0.0 - 0.8 03/22 [facility] HEMATOLOGY Eosinophils # 0.2 0.0 - 0.5 03/22 [facility] HEMATOLOGY Monocytes 7.5 2.0 - 12.0 03/22 2016 [facility] HEMATOLOGY Segs 56.8 45.0 - 03/22 [place] 75.0 [facility] HEMATOLOGY Lymphocytes 33.0 20.0 - 03/22 [place] 40.0 [facility] HEMATOLOGY MCH 32.0 27.0 - 03/22 [place] 31.0 [facility] HEMATOLOGY MCHC 33.7 32.0 - 03/22 36.0 /2017 [facility] HEMATOLOGY MPV 7.4 7.4 - 10.4 03/22 [facility] HEMATOLOGY RDW 14.3 11.5 - 03/22 14.5 [facility] HEMATOLOGY Platelet 202 133 - 450 03/22 [facility] HEMATOLOGY MCV 95.0 80.0 - 03/22 98.0 [facility] HEMATOLOGY Hct 36.1 36.0 - 02 [place] 48.0 /2016 [facility] HEMATOLOGY Hgb 12.2 12.0 - 03/22 [place] 16.0 [facility] HEMATOLOGY RBC 3.80 4.20 - 03/22 [place] 5.40 /2016 [facility] HEMATOLOGY WBC 7.5 3.7 - 10.4 03/22 2016 [facility] CHEM PANEL B/C Ratio 25 6 - 25 03/20 2016 [facility] CHEM PANEL AGAP 15.1 10.0 - 03/20 20.0 [facility] CHEM PANEL Globulin 4.6 2.7 - 4.2 03/20 [facility] CHEM PANEL A/G Ratio 0.7 0.7 - 1.6 03/20 2016 [facility] CHEM PANEL Alk Phos 86 39 - 136 03/20 2016 [facility] CHEM PANEL Bili Total 0.4 0.2 - 1.3 03/20 [facility] CHEM PANEL eGFR 93 03/20 Result Comment: The Medical eGFR is Center calculated using the CKD-EPI formula. In most young, healthy individuals the eGFR will be >90 mL/min/1.73m2 . The eGFR declines with age. An eGFR of 60-89 may be normal in some populations, particularly the elderly, for whom the CKD-EPI formula has not been extensively validated. Use of the eGFR is not recommended in the following populations:< br/>
Ruth viduals with unstable creatinine concentration s, including patients and those with serious co-morbid conditions.<b r/>
Patie nts with extremes in muscle mass or diet.

The data above are obtained from the National Kidney Disease Education Program (NKDEP) which additionally recommends that when the eGFR is used in patients with extremes of body mass index for purposes of drug dosing, the eGFR should be multiplied by the estimated BMI. CHEM PANEL ALT 74 0 - 65 02 2016 [facility] CHEM PANEL AST 32 0 - [address] CHEM PANEL Albumin Lvl 3.4 3.5 - 5.0 03/20 [facility] 2016 [facility] CHEM PANEL Total Protein 8.0 6.4 - 8.4 03/20 [facility] CHEM PANEL Chloride Lvl 98 95 - 109 03/20 [facility] CHEM PANEL CO2 27 24 - [address] CHEM PANEL Calcium Lvl 9.6 8.5 - 10.5 03/20 [facility] CHEM PANEL Creatinine 0.68 0.50 - 02 [facility] Lvl 1.40 [facility] CHEM PANEL Sodium Lvl 136 135 - [address] CHEM PANEL Potassium Lvl 4.1 3.5 - 5.1 03/20 [facility] CHEM PANEL Glucose Lvl 197 70 - 99 03/[address] CHEM PANEL BUN 17 7 - [address] HEMATOLOGY Monocytes 6.1 2.0 - 12.[address] HEMATOLOGY Eosinophils 2.1 0.0 - 4.0 03/20 [facility] HEMATOLOGY Lymphocytes 28.0 20.0 - 02 [place] 40.0 [facility] HEMATOLOGY Eosinophils # 0.2 0.0 - 0.5 03/20 [facility] HEMATOLOGY Basophils # 0.1 0.0 - 0.2 02 [facility] HEMATOLOGY Segs 63.1 45.0 - 02 [place] 75.0 [facility] HEMATOLOGY Lymphocytes # 2.4 1.0 - 5.5 03/[address] HEMATOLOGY Monocytes # 0.5 0.0 - 0.8 03/20 [facility] HEMATOLOGY Basophils 0.7 0.0 - 1.[address] HEMATOLOGY Segs-Bands # 5.3 1.5 - 8.1 03/20 [facility] HEMATOLOGY Platelet 259 133 - 450 02 [facility] HEMATOLOGY MPV 8.4 7.4 - 10.4 03/20 [facility] HEMATOLOGY MCV 94.9 80.0 - 02 [place] 98.0 /2016 [facility] HEMATOLOGY Hct 37.1 36.0 - 02 [place] 48.0 /2016 [facility] HEMATOLOGY Hgb 12.6 12.0 - 03/20 16.0 [facility] HEMATOLOGY WBC 8.5 3.7 - 10.4 03/20 [facility] HEMATOLOGY RBC 3.90 4.20 - 02 [place] 5.40 /2016 [facility] HEMATOLOGY RDW 14.4 11.5 - 03/20 14.5 [facility] HEMATOLOGY MCH 32.2 27.0 - 02 [place] 31.0 [facility] HEMATOLOGY MCHC 33.9 32.0 - 03/20 [place] 36.0 [facility] CHEM PANEL eGFR 93 03/18 [facility] Comment: [facility] eGFR is Center calculated using the CKD-EPI formula. In most young, healthy individuals the eGFR will be >90 mL/min/1.73m2 . The eGFR declines with age. An eGFR of 60-89 may be normal in some populations, particularly the elderly, for whom the CKD-EPI formula has not been extensively validated. Use of the eGFR is not recommended in the following populations:< br/>
Ruth viduals with unstable creatinine concentration s, including patients and those with serious co-morbid conditions.<b r/>
Patie nts with extremes in muscle mass or diet.

The data above are obtained from the National Kidney Disease Education Program (NKDEP) which additionally recommends that when the eGFR is used in patients with extremes of body mass index for purposes of drug dosing, the eGFR should be multiplied by the estimated BMI. CHEM PANEL Glucose Lvl 198 70 - 99 03/18 [facility] CHEM PANEL BUN 18 7 - 22 03/18 [facility] CHEM PANEL Alk Phos 78 39 - 136 03/18 [facility] CHEM PANEL AST 35 0 - 37 03/18 [facility] CHEM PANEL ALT 74 0 - 65 03/18 [facility] CHEM PANEL Creatinine 0.67 0.50 - 02 [place] Lvl 1.40 /2016 [facility] CHEM PANEL Chloride Lvl 99 95 - 109 02 [facility] CHEM PANEL Potassium Lvl 3.9 3.5 - 5.1 02 [facility] CHEM PANEL Sodium Lvl 136 135 - 145 02 2016 [facility] CHEM PANEL Total Protein 7.2 6.4 - 8.4 02 [facility] CHEM PANEL Calcium Lvl 9.1 8.5 - 10.5 02 [facility] CHEM PANEL CO2 27 24 - 32 02 [facility] CHEM PANEL Albumin Lvl 3.1 3.5 - 5.0 03/18 [facility] CHEM PANEL Bili Total 0.3 0.2 - 1.3 03/18 [facility] CHEM PANEL A/G Ratio 0.8 0.7 - 1.6 03/18 [facility] CHEM PANEL Globulin 4.1 2.7 - 4.2 03/18 [facility] CHEM PANEL B/C Ratio 27 6 - 25 02 [facility] CHEM PANEL AGAP 13.9 10.0 - 02 20.0 [facility] HEMATOLOGY Platelet 279 133 - 450 02 [facility] HEMATOLOGY MCH 32.4 27.0 - 02 31.0 [facility] HEMATOLOGY MPV 8.1 7.4 - 10.4 02 [facility] HEMATOLOGY MCHC 33.9 32.0 - 02 36.0 [facility] HEMATOLOGY RDW 14.3 11.5 - 02 14.5 [facility] HEMATOLOGY Hgb 11.8 12.0 - 02/ 16.0 [facility] HEMATOLOGY WBC 8.3 3.7 - 10.4 02 [facility] HEMATOLOGY Hct 34.6 36.0 - 02/ 48.0 [facility] HEMATOLOGY MCV 95.3 80.0 - 02/ 98.0 [facility] HEMATOLOGY RBC 3.63 4.20 - 02/ 5.40 [facility] HEMATOLOGY Eosinophils # 0.2 0.0 - 0.5 02 [facility] [address] [place] [address] HEMATOLOGY Monocytes # 0.5 0.0 - 0.[address] HEMATOLOGY Lymphocytes # 2.6 1.0 - 5.5 02 [facility] [address] [place] [address] HEMATOLOGY Basophils # 0.1 0.0 - 0.[address] HEMATOLOGY Basophils 1.0 0.0 - 1.0 03/[address] HEMATOLOGY Eosinophils 2.0 0.0 - 4.0 02 [facility] [address] [place] [address] HEMATOLOGY Monocytes 6.2 2.0 - 12.0 03/[address] HEMATOLOGY Segs 59.4 45.0 - 03/18 [facility] 75.0 [facility] HEMATOLOGY Lymphocytes 31.4 20.0 - 03/18 [facility] 40.0 [facility] HEMATOLOGY Segs-Bands # 4.9 1.5 - 8.1 03/18 [facility] [address] [place] [address] HEMATOLOGY Basophils # 0.1 0.0 - 0.2 02 [facility] [address] [place] [address] URINE AND UA Glucose 100mg/dL 03/14 [facility] [address] [place] [address] URINE AND UA Bacteria Few /HPF None Seen 03/14 [facility] /[address] [place] [address] URINE AND UA Mucus Few /LPF None Seen 03/14 [facility] /F /[address] [place] [address] URINE AND UA Nitrite Negative Negative 03/14 [facility] (03/14/16 12:37 AM) [facility] URINE AND UA Bili Negative Negative 03/14 [facility] *NA* /2016 [facility] (03/14/16 12:37 AM) [facility] URINE AND UA Blood Negative Negative 03/14 [facility] (03/14/16 12:37 AM) [facility] URINE AND UA 4.0 0.1 - 1.0 03/14 [facility] Urobilinogen /[address] [place] [address] URINE AND UA RBC 1 0 - 2 03/14 [facility] /[address] [place] [address] URINE AND UA WBC >182 0 - 5 03/14 [facility] /[address] [place] [address] URINE AND UA Sq Epi Occasional Few /LPF 03/14 [facility] STOOL /LPF /[address] [place] [address] URINE AND UA Leuk Est Large Negative 03/14 [facility] *ABN* /2017 [facility] (03/14/16 12:37 AM) [facility] URINE AND UA Color Yellow Yellow 03/14 [facility] *NA* [facility] (03/14/16 12:37 AM) [facility] URINE AND UA Protein Negative Negative 03/14 [facility] mg/dL mg/dL [facility] URINE AND UA Ketones Negative Negative 03/14 [facility] mg/dL mg/dL [facility] URINE AND UA Turbidity Slight Clear 03/14 [facility] *ABN* [facility] (03/14/16 12:37 AM) [facility] URINE AND UA Spec Grav 1.016 <=1.030 03/14 [facility] /2016 [facility] URINE AND UA pH 5.5 5.0 - 8.0 03/[address] CHEM PANEL Phosphorus 4.1 2.5 - 4.5 03/12 [facility]2016 [facility] CHEM PANEL Magnesium Lvl 2.4 1.8 - 2.4 03/[address] IMMUNOLOGY Prealbumin 27.4 18.0 - 03/12 [facility] 45.0 [facility] CHEM PANEL Phosphorus 4.0 2.5 - 4.5 03/[address] CHEM PANEL Magnesium Lvl 2.4 1.8 - 2.4 03/11 [facility] [address] [place] [address] ELECTROLYTE AGAP 14.1 10.0 - 03/11 [facility] S 20.0 [facility] ELECTROLYTE eGFR 97 03/11 Result [facility] Comment: The Medical eGFR is Center calculated using the CKD-EPI formula. In most young, healthy individuals the eGFR will be >90 mL/min/1.73m2 . The eGFR declines with age. An eGFR of 60-89 may be normal in some populations, particularly the elderly, for whom the CKD-EPI formula has not been extensively validated. Use of the eGFR is not recommended in the following populations:< br/>
Ruth viduals with unstable creatinine concentration s, including patients and those with serious co-morbid conditions.<b r/>
Patie nts with extremes in muscle mass or diet.

The data above are obtained from the National Kidney Disease Education Program (NKDEP) which additionally recommends that when the eGFR is used in patients with extremes of body mass index for purposes of drug dosing, the eGFR should be multiplied by the estimated BMI. ELECTROLYTE BUN 20 7 - 22 03/11 [facility] ELECTROLYTE Creatinine 0.59 0.50 - 03/11 [facility] S Lvl 1.40 [facility] ELECTROLYTE Sodium Lvl 137 135 - 145 03/11 [facility] ELECTROLYTE Potassium Lvl 4.1 3.5 - 5.1 03/11 [place] [facility] ELECTROLYTE CO2 23 24 - 32 03/11 [facility] 2016 [facility] ELECTROLYTE Chloride Lvl 104 95 - 109 03/11 [facility] ELECTROLYTE Calcium Lvl 8.6 8.5 - 10.5 03/11 [facility] ELECTROLYTE Glucose Lvl 95 70 - 99 03/11 [facility] 2016 [facility] HEMATOLOGY Lymphocytes # 3.3 1.0 - 5.5 03/11 [facility] HEMATOLOGY Segs-Bands # 9.6 1.5 - 8.1 03/11 [facility] HEMATOLOGY Segs 67.9 45.0 - 03/11 [facility] 75.0 [facility] HEMATOLOGY Lymphocytes 23.3 20.0 - 03/11 [place] 40.0 [facility] HEMATOLOGY Monocytes 6.4 2.0 - 12.0 03/11 2016 [facility] HEMATOLOGY Eosinophils 1.4 0.0 - 4.0 03/11 [facility] HEMATOLOGY Basophils 1.0 0.0 - 1.0 03/11 2016 [facility] HEMATOLOGY Eosinophils # 0.2 0.0 - 0.5 03/11 [facility] HEMATOLOGY Basophils # 0.1 0.0 - 0.2 03/11 [facility] HEMATOLOGY Monocytes # 0.9 0.0 - 0.8 03/11 [facility] HEMATOLOGY MPV 8.3 7.4 - 10.4 03/11 2016 [facility] HEMATOLOGY MCH 32.2 27.0 - 03/11 [facility] 31.0 [facility] HEMATOLOGY MCV 94.2 80.0 - 03/11 [place] 98.0 [facility] HEMATOLOGY Platelet 359 133 - 450 03/11 2016 [facility] HEMATOLOGY MCHC 34.2 32.0 - 03/11 [facility] 36.0 [facility] HEMATOLOGY RDW 14.3 11.5 - 03/11 [facility] 14.5 [facility] HEMATOLOGY Hct 33.8 36.0 - 03/11 [facility] 48.0 [facility] HEMATOLOGY WBC 14.1 3.7 - 10.4 03/11 [facility] HEMATOLOGY Hgb 11.5 12.0 - 03/11 16.0 [facility] HEMATOLOGY RBC 3.59 4.20 - 03/11 [facility] 5.40 [facility] PARATHYROID Ca Ion WB 1.00 1.05 - 03/11 [facility] PROFILE 1. [facility] PARATHYROID Ca Norm WB 1.06 1.05 - 03/11 [facility] . [facility] CHEM PANEL Magnesium Lvl 2.8 1.8 - 2.4 03/10 [facility] CHEM PANEL eGFR 98 03/10 Result Comment: The Medical eGFR is Center calculated using the CKD-EPI formula. In most young, healthy individuals the eGFR will be >90 mL/min/1.73m2 . The eGFR declines with age. An eGFR of 60-89 may be normal in some populations, particularly the elderly, for whom the CKD-EPI formula has not been extensively validated. Use of the eGFR is not recommended in the following populations:< br/>
Ruth viduals with unstable creatinine concentration s, including patients and those with serious co-morbid conditions.<b r/>
Patie nts with extremes in muscle mass or diet.

The data above are obtained from the National Kidney Disease Education Program (NKDEP) which additionally recommends that when the eGFR is used in patients with extremes of body mass index for purposes of drug dosing, the eGFR should be multiplied by the estimated BMI. CHEM PANEL AGAP 9.6 10.0 - 03/10 [facility] 20. [facility] CHEM PANEL Calcium Lvl 8.8 8.5 - 10.5 03/10 [facility] CHEM PANEL Creatinine 0.58 0.50 - 03/10 [place] Lvl 1.40 [facility] CHEM PANEL Potassium Lvl 3.6 3.5 - 5.1 03/10 [facility] CHEM PANEL Sodium Lvl 135 135 - 145 03/10 [facility] CHEM PANEL CO2 29 24 - 32 03/10 [facility] CHEM PANEL Chloride Lvl 100 95 - 109 03/10 [facility] CHEM PANEL Glucose Lvl 85 70 - 99 03/10 2016 [facility] CHEM PANEL BUN 20 7 - 22 03/10 [facility] CHEM PANEL Phosphorus 4.2 2.5 - 4.5 03/10 [facility] HEMATOLOGY WBC 15.8 3.7 - 10.4 03/10 [facility] HEMATOLOGY RBC 3.55 4.20 - 03/10 5.40 [facility] HEMATOLOGY RDW 13.5 11.5 - 03/10 14.5 [facility] HEMATOLOGY Platelet 333 133 - 450 03/10 [facility] HEMATOLOGY MPV 8.7 7.4 - 10.4 03/10 [facility] HEMATOLOGY Hgb 11.1 12.0 - 03/10 16.0 [facility] HEMATOLOGY Hct 33.9 36.0 - 03/10 48.0 [facility] HEMATOLOGY MCV 95.6 80.0 - 03/10 98.0 [facility] HEMATOLOGY MCH 31.3 27.0 - 03/10 31.0 [facility] HEMATOLOGY MCHC 32.7 32.0 - 03/10 36.0 [facility] HEMATOLOGY Basophils # 0.2 0.0 - 0.2 03/10 [facility] HEMATOLOGY Monocytes # 1.3 0.0 - 0.8 03/10 [facility] HEMATOLOGY Eosinophils # 0.2 0.0 - 0.5 03/10 [facility] HEMATOLOGY Segs-Bands # 10.3 1.5 - 8.1 03/10 [facility] HEMATOLOGY Lymphocytes # 3.9 1.0 - 5.5 03/10 [facility] HEMATOLOGY Basophils 1.0 0.0 - 1.0 03/10 [facility] HEMATOLOGY Eosinophils 1.1 0.0 - 4.0 03/10 [facility] HEMATOLOGY Segs 64.9 45.0 - 03/10 [place] 75.0 [facility] HEMATOLOGY Monocytes 8.2 2.0 - 12.0 03/10 [facility] HEMATOLOGY Lymphocytes 24.8 20.0 - 03/10 [facility] 40.0 [facility] PARATHYROID Ca Norm WB 1.11 1.05 - 03/10 [facility] PROFILE 1. [facility] PARATHYROID Ca Ion WB 1.14 1.05 - 03/10 [facility] PROFILE 1.25 [facility] ELECTROLYTE Sodium Lvl 133 135 - 145 03/09 [place] [facility] CHEM PANEL Magnesium Lvl 2.3 1.8 - 2.4 03/09 [place] [facility] CHEM PANEL Phosphorus 3.4 2.5 - 4.5 03/09 [facility] ELECTROLYTE AGAP 14.7 10.0 - 03/09 [facility] S 20. [facility] ELECTROLYTE eGFR 99 03/09 Result [facility] Comment: The Medical eGFR is Center calculated using the CKD-EPI formula. In most young, healthy individuals the eGFR will be >90 mL/min/1.73m2 . The eGFR declines with age. An eGFR of 60-89 may be normal in some populations, particularly the elderly, for whom the CKD-EPI formula has not been extensively validated. Use of the eGFR is not recommended in the following populations:< br/>
Ruth viduals with unstable creatinine concentration s, including patients and those with serious co-morbid conditions.<b r/>
Patie nts with extremes in muscle mass or diet.

The data above are obtained from the National Kidney Disease Education Program (NKDEP) which additionally recommends that when the eGFR is used in patients with extremes of body mass index for purposes of drug dosing, the eGFR should be multiplied by the estimated BMI. ELECTROLYTE BUN 19 7 - 22 03/09 [facility] ELECTROLYTE Creatinine 0.56 0.50 - 03/09 [facility] S Lvl 1.40 [facility] ELECTROLYTE Glucose Lvl 130 70 - 99 03/09 [facility] ELECTROLYTE Potassium Lvl 3.7 3.5 - 5.1 03/09 [place] [facility] ELECTROLYTE Chloride Lvl 100 95 - 109 03/09 [place] [facility] ELECTROLYTE CO2 23 24 - 32 03/09 [facility] ELECTROLYTE Calcium Lvl 8.8 8.5 - 10.5 03/09 [facility] HEMATOLOGY Segs-Bands # 11.6 1.5 - 8.1 03/09 [facility] HEMATOLOGY Eosinophils 1.1 0.0 - 4.0 03/09 [facility] HEMATOLOGY Basophils 1.0 0.0 - 1.0 03/09 [facility] HEMATOLOGY Lymphocytes # 3.4 1.0 - 5.5 03/09 [facility] HEMATOLOGY Segs 70.0 45.0 - 03/09 [place] 75.0 [facility] HEMATOLOGY Monocytes 7.2 2.0 - 12.0 03/09 [facility] HEMATOLOGY Lymphocytes 20.7 20.0 - 03/09 40.0 [facility] HEMATOLOGY Monocytes # 1.2 0.0 - 0.8 03/09 [facility] HEMATOLOGY Basophils # 0.2 0.0 - 0.2 03/09 [facility] HEMATOLOGY Eosinophils # 0.2 0.0 - 0.5 03/09 [facility] HEMATOLOGY Platelet 330 133 - 450 03/09 [facility] HEMATOLOGY RDW 13.7 11.5 - 03/09 14.5 [facility] HEMATOLOGY MPV 8.1 7.4 - 10.4 03/09 [facility] HEMATOLOGY MCH 31.9 27.0 - 03/09 31.0 [facility] HEMATOLOGY Hct 33.3 36.0 - 03/09 48.0 [facility] HEMATOLOGY MCV 94.1 80.0 - 03/09 98.0 [facility] HEMATOLOGY MCHC 33.8 32.0 - 03/09 36.0 [facility] HEMATOLOGY WBC 16.6 3.7 - 10.4 03/09 [facility] HEMATOLOGY Hgb 11.3 12.0 - 03/09 [place] 16.0 [facility] HEMATOLOGY RBC 3.54 4.20 - 03/09 [place] 5.40 /2016 [facility] PARATHYROID Ca Norm WB 1.06 1.05 - 03/09 [place] PROFILE 1.25 [facility] PARATHYROID Ca Ion WB 1.02 1.05 - 03/09 [place] PROFILE 1.25 [facility] BLOOD BANK ABO/Rh A POS 03/08 [facility] RESULTS /2016 [facility] BLOOD BANK Antibody Scrn Negative 03/08 [place] RESULTS (03/08/16 12:29 AM) [facility] HEMATOLOGY PTT 27.1 22.9 - 03/08 [facility] 35.8 /2016 [facility] HEMATOLOGY PT 14.3 12.0 - 03/08 [place] 14.7 /2016 [facility] HEMATOLOGY INR 1.09 0.85 - 03/08 [place] 1.17 [facility] BODY FLUIDS Protein CSF 60 15 - 45 03/07 Result Comment: Medical "Significant Center Findings called to Rene Capone_at _03/07/2016 18:38_by _ _.Read Back OK." BODY FLUIDS Lactic Acid 3.2 0.6 - 2.2 03/07 [place] CSF /2016 [facility] BODY FLUIDS Glucose CSF 129 45 - 80 03/07 [facility] BODY FLUIDS Monocyte CSF 18 15 - 45 03/07 [place] [facility] BODY FLUIDS Segs CSF 55 0 - 6 03/07 [facility] BODY FLUIDS Lymph CSF 27 40 - 80 03/07 [facility] BODY FLUIDS [place] [id number] 0 - 03 03/07 [facility] BODY FLUIDS WBC CSF 69 0 - 53 03/07 [facility] BODY FLUIDS Color CSF Red Colorless 03/07 [place] *ABN* [facility] (03/07/16 4:52 PM) [facility] BODY FLUIDS Clarity CSF Moderate Clear 03/07 [place] *ABN* [facility] (03/07/16 4:52 PM) [facility] BODY FLUIDS Tube Num CSF 1 03/07 [place] [facility] BODY FLUIDS Supernat CSF Hemolyzed Colorless 03/07 [place] *ABN* [facility] (03/07/16 4:52 PM) [facility] URINE AND UA Sq Epi RARE 03/07 [facility] STOOL [facility] URINE AND UA Nitrite Negative Negative 03/07 [facility] STOOL (03/07/16 4:52 PM) [facility] URINE AND UA Leuk Est Negative Negative 03/07 [facility] STOOL (03/07/16 4:52 PM) [facility] URINE AND UA Blood Moderate Negative 03/07 [facility] STOOL *ABN* [facility] (03/07/16 4:52 PM) Center URINE AND UA 0.2 0.1 - 1.0 03/07 [facility] Urobilinogen /2016 [facility] URINE AND UA Bili Negative Negative 03/07 [facility] STOOL *NA* /2016 [facility] (03/07/16 4:52 PM) [facility] URINE AND UA Protein Negative Negative 03/07 [facility] (03/07/16 4:52 PM) [facility] URINE AND UA Ketones Negative Negative 03/07 [facility] STOOL *NA* /2016 [facility] (03/07/16 4:52 PM) [facility] URINE AND UA Glucose Negative Negative 03/07 [facility] (03/07/16 4:52 PM) /2016 [facility] URINE AND UA Color Yellow Yellow 03/07 [facility] *NA* /2016 [facility] (03/07/16 4:52 PM) [facility] URINE AND UA pH 6.5 5.0 - 8.0 03/07 [facility] URINE AND UA Turbidity Slight Cloudy Clear 03/07 [facility] (03/07/16 4:52 PM) [facility] URINE AND UA Spec Grav 1.010 <=1.030 03/07 [place] [facility] URINE AND UA RBC 12 0 - 2 03/07 [facility] URINE AND UA Mucus Few /LPF None Seen 03/07 [facility] /LPF /2016 [facility] URINE AND UA Bacteria Few /HPF None Seen 03/07 [facility] URINE AND UA WBC 7 0 - 5 03/07 [place] STOOL [facility] BODY FLUIDS Glucose CSF 115 45 - 80 03/05 [facility] BODY FLUIDS Protein CSF 52 15 - 45 03/05 [facility] BODY FLUIDS Segs CSF 69 0 - 6 03/05 [facility] BODY FLUIDS Lymph CSF 21 40 - 80 03/05 [facility] BODY FLUIDS Monocyte CSF 10 15 - 45 03/05 [place] [facility] BODY FLUIDS Tube Num CSF [id number] 03[place]05 [place] (03/05/16 4:02 PM) [facility] BODY FLUIDS Color CSF Red Colorless 03/05 [place] *ABN* [facility] (03/05/16 4:02 PM) [facility] BODY FLUIDS Clarity CSF Marked Clear 03/05 [facility] *ABN* Medical (03/05/16 4:02 PM) [facility] BODY FLUIDS Supernat CSF Hemolyzed Colorless 03/05 [facility] *ABN* [facility] (03/05/16 4:02 PM) [facility] BODY FLUIDS WBC CSF 233 0 - 53 03/05 [facility] [place] [id number] 0 - 03 03/05 [facility] URINE AND UA <=1.0 0.1 - 1.0 03/05 [facility] Urobilinogen mg/dL [facility] URINE AND UA RBC 7 0 - 2 03/05 [facility] URINE AND UA Mucus Few /LPF None Seen 03/05 [facility] /LPF [facility] URINE AND Micro? Not Indicated 03/05 [facility] *NA* [facility] (03/05/16 9:24 AM) [facility] URINE AND UA Nitrite Negative Negative 03/05 [facility] (03/05/16 9:24 AM) [facility] URINE AND UA WBC 1 0 - 5 03/05 [facility] URINE AND UA Leuk Est Negative Negative 03/05 [facility] (03/05/16 9:24 AM) [facility] URINE AND UA Turbidity Clear Clear 03/05 [facility] (03/05/16 9:24 AM) [facility] URINE AND UA Spec Grav 1.011 <=1.030 03/05 [facility] [address] [place] [address] URINE AND UA Bili Negative Negative 03/05 [facility] *NA* [facility] (03/05/16 9:24 AM) [facility] URINE AND UA Ketones Negative Negative 03/05 [facility] mg/dL mg/dL [facility] URINE AND UA Glucose 300 mg/dL Negative 03/05 [facility] mg/dL [facility] URINE AND UA Color Yellow Yellow 03/05 [facility] *NA* [facility] (03/05/16 9:24 AM) [facility] URINE AND UA Blood Negative Negative 03/05 [facility] (03/05/16 9:24 AM) [facility] URINE AND UA pH 7.0 5.0 - 8.0 03/05 [facility] URINE AND UA Protein Negative Negative 03/05 [facility] STOOL mg/dL mg/dL /2016 [facility] BLOOD BANK Antibody Scrn Negative 03/04 [place] RESULTS (03/04/16 12:31 AM) /2016 [facility] BLOOD BANK ABO/Rh A POS 03/04 [place] RESULTS /2016 [facility] HEMATOLOGY PTT 28.1 22.9 - 03/04 [place] 35.8 /2016 [facility] HEMATOLOGY PT 14.5 12.0 - 03/04 [place] 14.7 /2016 [facility] HEMATOLOGY INR 1.11 0.85 - 03/04 [place] 1.17 /2016 [facility] BODY FLUIDS Protein CSF 87 15 - 45 03/01 Result Comment: Medical "Significant Center Findings called to Isaac Mercado_at 03/01/2016 17:12__by __.Read Back OK." BODY FLUIDS Lactic Acid 2.7 0.6 - 2.2 03/01 [place] CSF /2016 [facility] BODY FLUIDS Glucose CSF 78 45 - 80 03/01 [facility] BODY FLUIDS Monocyte CSF 13 15 - 45 03[place] [facility] BODY FLUIDS Lymph CSF 13 40 - 80 03/01 [facility] BODY FLUIDS Segs CSF 74 0 - 6 03/01 [facility] BODY FLUIDS WBC CSF 233 0 - 53 03/01 [facility] BODY FLUIDS RBC CSF [address]84 0 - 03 03/01 [facility] BODY FLUIDS Clarity CSF Marked Clear 03/01 [place] *ABN* Medical (03/01/16 3:14 PM) Center BODY FLUIDS Supernat CSF Hemolyzed Colorless 03/01 [place] *ABN* Medical (03/01/16 3:14 PM) Center BODY FLUIDS Color CSF Red Colorless 03/01 [place] *ABN* Medical (03/01/16 3:14 PM) Center BODY FLUIDS Tube Num CSF xxxxxxx 03[place] (03/01/16 3:14 PM) [facility] URINE AND UA Sq Epi None Seen 02/28 [facility] STOOL /2016 [facility] URINE AND UA <=1.0 0.1 - 1.0 02/28 [facility] STOOL Urobilinogen mg/dL /2016 [facility] URINE AND UA Nitrite Negative Negative 02/28 [facility] STOOL (02/29/16 11:57 AM) [facility] URINE AND UA RBC 2 0 - 2 02/28 [facility] URINE AND UA WBC 2 0 - 5 02/28 [facility] URINE AND UA Leuk Est Negative Negative 02/28 [facility] (02/29/16 11:57 AM) [facility] URINE AND UA Blood Negative Negative 02/28 [facility] (02/29/16 11:57 AM) [facility] URINE AND UA Hyal Cast 1 0 - 2 02/28 [facility] URINE AND UA Mucus Few /LPF None Seen 02/28 [facility] STOOL /LPF /2016 [facility] URINE AND UA Spec Grav 1.016 <=1.030 02/28 [facility] URINE AND UA pH 5.5 5.0 - 8.0 02/28 [facility] URINE AND UA Turbidity Slight Clear 02/28 [facility] STOOL *ABN* Medical (02/29/16 11:57 AM) Cente r URINE AND UA Protein Negative Negative 02/28 [facility] STOOL mg/dL mg/dL [facility] URINE AND UA Bili Negative Negative 02/28 [facility] STOOL *NA* Medical (02/29/16 11:57 AM) Cente r URINE AND UA Ketones Negative Negative 02/28 [facility] STOOL mg/dL mg/dL [facility] URINE AND UA Glucose 30 mg/dL Negative 02/28 [facility] mg/dL /2016 [facility] URINE AND UA Color Yellow Yellow 02/28 [facility] STOOL *NA* Medical (02/29/16 11:57 AM) Cente r CARDIAC Troponin-I <0.02 0.00 - 02/28 [facility] ENZYMES 0.40 [facility] URINE AND UA Sq Epi None Seen 02/26 [facility] BACTERIAL - MRSA by PCR Negative 02/26 [place] (02/27/16 8:34 AM) /2016 [facility] DRUG SCREEN U Opiate Scr Negative Negative 02/26 [place] *NA* Medical (02/27/16 12:41 AM) Cente r DRUG SCREEN U Cannab Scr Negative Negative 02/26 [place] *NA* Medical (02/27/16 12:41 AM) Cente r DRUG SCREEN U Benzodia Negative Negative 02/26 [place] *NA* Medical (02/27/16 12:41 AM) Cente r DRUG SCREEN U Propoxyph Negative Negative 02/26 [place] Scr *NA* Medical (02/27/16 12:41 AM) Cente r DRUG SCREEN U Methadone Negative Negative 02/26 [place] Scr *NA* Medical (02/27/16 12:41 AM) Cente r DRUG SCREEN U Cocaine Scr Negative Negative 02/26 [place] *NA* Medical (02/27/16 12:41 AM) Cente r DRUG SCREEN U Phencyc Scr Negative Negative 02/26 [place] *NA* Medical (02/27/16 12:41 AM) Cente r DRUG SCREEN U Belinda Scr Negative Negative 02/26 [place] *NA[place] [facility] (02/27/16 12:41 AM) Cente r DRUG SCREEN U Amph Scr Negative Negative 02/26 [place] *NA[place] [facility] (02/27/16 12:41 AM) Cente r DRUG SCREEN UDS Note See Note 02/26 [place] *NA* Medical (02/27/16 12:41 AM) Cente r URINE AND UA Bacteria Occasional None Seen 02/26 [place] /HPF /HPF [facility] URINE AND UA Amorph Occasional None Seen 02/26 [place] T[place] /HPF /HPF /2016 [facility] HEMATOLOGY TEG Interp Thrombelas 02/26 [place] to[place] [facility] results [place] show shortened value of R and increased value of Angle Alpha. 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 CPT:21533 HEMATOLOGY Angle 74.3 53.0 - 02/26 [place] 72.0 [facility] HEMATOLOGY Max Amp 69.2 50.0 - 02/26 [place] 70.0 [facility] HEMATOLOGY Coag Index 3.5 -3.0-3.0 - 02/26 [place] 3.0 [facility] HEMATOLOGY G-value 11.3 4.5 - 11.0 02/26 [facility] HEMATOLOGY Ly30 0.8 0.0 - 7.5 02/26 [facility] HEMATOLOGY TEG Data See Note 02/26 [facility] (02/27/16 12:40 AM) /2016 [facility] HEMATOLOGY R-time 3.8 5.0 - 10.0 02/26 [facility] HEMATOLOGY K-time 0.9 1.0 - 3.0 02/26 [facility] HEMATOLOGY INR 1.23 0.85 - 02/26 [place] 1. [facility] HEMATOLOGY PT 15.8 12.0 - 02/26 [place] 14.7 [facility] HEMATOLOGY PTT 25.3 22.9 - 02/26 [place] 35.8 [facility] SPECIAL Hgb A1C 8.9 <=5.6 % 02/26 [facility] CHEMISTRY /2016 [facility] HEMATOLOGY POC Activated 154 02/25 [place] [facility] BLOOD BANK Antibody Scrn Negative 02/25 [place] RESULTS (02/26/16 3:00 AM) [facility] BLOOD BANK ABO/Rh A POS 02/25 [facility] RESULTS [facility] CHEM PANEL Bili Total 0.4 0.2 - 1.3 02/25 [facility] CHEM PANEL Alk Phos 81 39 - 136 02/25 [facility] CHEM PANEL AST 45 0 - 37 02/25 [facility] CHEM PANEL Total Protein 7.8 6.4 - 8.4 02/25 [place] [facility] CHEM PANEL Albumin Lvl 3.7 3.5 - 5.0 02/25 [place] [facility] CHEM PANEL ALT 52 0 - 65 02/25 [facility] CHEM PANEL A/G Ratio 0.9 0.7 - 1.6 02/25 [facility] CHEM PANEL Globulin 4.1 2.7 - 4.2 02/25 [facility] CHEM PANEL B/C Ratio 27 6 - 25 02/25 [facility] HEMATOLOGY G-value Rapid 10.5 5.0 - 11.6 02/25 [place] [facility] HEMATOLOGY Max Amplitude 68 52 - 71 02/25 [place] Rapid [facility] HEMATOLOGY K-time Rapid 1.1 0.6 - 2.3 02/25 [place] /2016 [facility] HEMATOLOGY Angle Rapid 76 64 - 80 02/25 [facility] HEMATOLOGY [place] 0.6 02/25 [place] [facility] HEMATOLOGY R-time Rapid 0.8 0.4 - 0.7 02/25 [place] [facility] HEMATOLOGY ACT (TEG) 121 86 - 118 02/25 [facility] HEMATOLOGY Estimated % 0.6 0.0 - 7.5 02/25 [place] [facility] Pathology Reports No Data Provided for This Section Diagnostic Reports Report Value Date Source Brain wo contrast MRI EXAM: MRI BRAIN WITHOUT CONTRAST 8 [facility] DATE: 08/24/2017 549 PM CDT Cente r INDICATION: 67 years old Fem natasha patient with history of Left sided numbness [...] or midline shift. Ventricles are stable in siz e and configuration. No obvious pathological extra- axial fluid collection is identified. Cerebral sulci and basal cisterns are well preserved. Visualized paranasal sinuses are clear. Visualized mastoid air cells are clear. Visualized orbits appear grossly unremarkable. IMPRESSION: 1. No acute intracranial infarct. 2. Encephalomalacia in the territory of anterior division right MCA. These findings are in agreem ent with previous preliminary report made by quality control engineer physician president. Chest 1view DX EXAM: XR CHEST 1 VIEW 08/24/2017 [facility] edical DATE: 08/24/2017 at 1446 hours Ce nter INDICATION: - stroke COMPARISON: None TECHNIQUE: AP chest FINDINGS: Lines and tubes: None. Lungs and pleura: The lungs are clear. No focal consolidations are seen. The costophrenic recesses are sharp without pleural effusion. Pulmonary vascularity is normal. Heart and mediastinum: The h eart size is normal for technique. The thoracic aorta is mildly tortuous. Punctate calcification is seen within aortic arch. The mediastinal contours are normal. Bones: No acute bony abnorma lity is identified. Bridging osteophytes with minimal disc space narrowing is seen at mid and lower portions of the thoracic spine. IMPRESSION: No acute cardiopulmonary abnormality. The thoracic aorta is mildly tortuous with punctate calcification seen at the aortic arch. Brain Stroke wo EXAM: CT BRAIN 08/24/[address] [place] [facility] [address] DATE: 08/24/2017 at 14:03 Center CLINICAL INFORMATION: - stroke COMPARISON: None TECHNIQUE: Axial images of t he brain were obtained from the skull base through the vertex without contrast material administration. DLP: 777 mGycm DISCUSSION: Encephalomalacia in the righ t frontal lobe. Right pterional craniotomy and right paraclinoid aneurysmal clip. Coiling material in the region of the left supraclinoid ICA. Compensatory dilatation of the right lateral ventricle. Sma ll area of gliosis and dystrophic calcification in the left frontal lobe. No acute hemorrhage, hydrocephalus or midline shift. IMPRESSION: No early signs of cortical-based ischemia or acu te hemorrhage. 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 3-D CT angiographic image s are created using maximum intensity projection technique [...] ICAs are patent. The intracranial ICAs are pa tent. Right paraclinoid aneurysmal clip. No discrete recurrent or residual aneurysm. Coiling material in the supraclinoid left ICA with no discrete residual or recurrent aneu rysm. The anterior and middl e cerebral arteries are patent. Both P-comm are patent with origin of both sash maker. The vertebral arteries are p atent from their origin. The left vertebral artery [...] criteria. No intracranial proximal branch occlusion or juanis w-limiting stenosis. Right paraclinoid aneurysmal clip. Left supracli noid coiling material. No recurrent or residual aneurysms or AV malform ation. No perfusion defects suggestive of acute infarct (All qualitative and quantit ative assessments of carotid bifurcation and proximal internal carotid artery stenosis are made referencing the distal internal carotid artery {NASCET criteria}.) Angiogram cervical PROCEDURE: 06/19/2016 [facility] layla artery bilateral VR 1. Diagnostic Cerebral Angiogram: Center 2. 3D angiography: Left internal carotid artery 3. 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 Marrero. 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 Dr. Marrero requests for endovascular therapy of the left posterior communicating artery aneurysm since the aneurysm is amenable for endovascular treatment ATTENDING: Magi Cee He was present and immediately available for entire procedure, performing all critical portions. Reviewed all angiographic results. FELLOW: Bernard Murray M.D. COMPARISON: Angiogram 03/04/2016 TECHNIQUE: Prior to the proc edure, the technical aspects of the procedure, as well as potential risks and benefits, were explained to the patient. Specifically, the risks of cerebral infarction, hemorrh age, stent thrombosis/re-francy nosis, stent migration, blindness, cranial nerve palsy, facial pain, anaphylaxis, renal failure, limb loss, , non-target embolization, groin hematoma, arterial dissectio n, arterial pseudoaneurysm, and arteriovenous fi stula were discussed. PROCEDURE: Informed consent was obtained describing all the risks, benefits and alternatives of the procedure the patient was brought to the interventional suite placed in the supine position where mode rate sedation was administer ed under the supervision of the attending. The patient was then prepped and draped in sterile fashion. The Right femoral artery was accessed using single wall micropuncture technique and a 6 Montenegrin she ath was placed. A 5 Montenegrin Vert catheter was coaxially advanced with a 0.035 Terumo Glidewire through the sheath into aorta arch to select the below mentioned arteries using roadmap technique. Two-dimen sional and selective 3-D cerebral angiogram runs were performed. After review of the angiography data, there was evidence of left posterior corticated artery aneurysm that i s considered amenable for balloon assisted coil embolization. And a magnified roadmap , a 6-Montenegrin envoy DA guide catheter was telescoped over a long 5-Montenegrin Vert catheter and positioned over the left internal carotid artery upper cervical segment. 5000 units of heparin were administered in travenously following sheath placement; additional boluses of heparin were administered at one-hour intervals. The ACT was checked to ensure that it was between 250-300. 3D rotational angiography of the left internal carotid artery was also performed for better delineation of the left posterior corticated artery aneurysm. Three-dimensional angiographic images were proce ssed on an independent works tation, and volume-rendered three-dimensional images were produced. A working projection obtain ed to best demonstrate the neck of the left posterior commuting artery aneurysm. Superselective catheterization of the left internal carotid artery was performed with 4 x 7 hyper form balloon to recons truct the aneurysm neck . Then after and using an SL 10 microcatheter the left posterior corticated artery aneurysm was selected and 4 x 6 mm De Graff coil was deployed to est ablish a framing basket that was filled by 1.5 x 2 mm Linda coils . Repeated cerebral angiogram was performed . The catheter was withdrawn. Right femoral artery angiogram was performed and the catheter was removed. The femoral art kathie sheath removed and closed by Application of [...] TASKS: 1. Right femoral artery catheterization with 2- D angiogram run 2. Left common carotid artery selective catheter ization and 2D angiogram Runs 3. Left Internal carotid art kathie selective catheterization and 2D/3D angiogram Runs 4. Left internal carotid art kathie communicating segment superselective catheterization using 4 x 7 hyper form balloon 5. Balloon assisted coil emb olization of unruptured left posterior communicating artery aneurysm 6. Application of Angio-Seal closure device FINDINGS: PRE-TREATMENT 1- Left common carotid arter y: Left common carotid reveals normal takeoff of the cervical internal carotid artery and external carotid artery and terminal branches. The bifurcation is smooth without irr egularity or any significant evidence of atherosclerotic disease or stenosis. No early venous shunting is present. 2- Left external carotid art kathie: Common carotid artery injection shows normal opacification of the external carotid artery and its terminal branches. There is no evidence of tumor blush, arteriovenous shunting or other abnormalities. 3- Left internal carotid art kathie: Left internal carotid artery injection reveals brisk [...] obstruction. FINDINGS: POST-TREATMENT 1- left internal carotid art kathie : Left internal carotid artery injection revealed brisk opacification of the left internal carotid artery, left middle cerebral artery and anterior cerebral artery. There is evidence of dense coilin g mass associated with the previously described left posterior communicating artery aneurysm. The left posterior communicating artery is patent. Capillary and venous phases within normal IMPRESSION: 1. Left posterior communicating artery aneurysm. 2. Successful balloon assist ed coil embolization of unruptured left posterior communicating artery aneurysm Brain wo contrast CT EXAM: CT BRAIN WITHOUT CONTRAST 03/08/2016 [facility] DATE: 03/08/2016 4:32 AM [facility] INDICATION: Bleeding COMPARISON: Brain CT dated 02/28/2016 TECHNIQUE: Routine axial CT images of the brain were obtained, with reformatted images in the sagittal and coronal plane. 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 The parenchymal hemorrhage in the the right frontal lobe has decreased in attenuation, with persist ent edematous changes. Subar achnoid hemorrhage in the right frontoparietal convexity is still identified. There is a left frontal ventriculostomy terminating in the left frontal horn. The ventricular si ze is normal. The basal cisterns are patent. The re is no midline shift. IMPRESSION: 1. Interval decrease in the attenuation of the right frontal hemorrhage. 2. Interval decrease in the amount of subarachn oid hemorrhage. Abdomen AP DX EXAM: XR ABDOMEN 1 VIEW 03/06/2016 [facility] DATE: 03/06/2016 2:24 AM [facility] GRADER Cent er INDICATION: Tube placement/removal/reposition ADDITIONAL INFORMATION: None. COMPARISON: 03/05/2016 TECHNIQUE: AP view of the abdomen. FINDINGS: Dobbhoff tube in place, with the tip in the gastric body in the midline at level of L2. The Dobbhoff tube Appears slightly retracted from previous exam. Nonobstructive gas pattern. IMPRESSION: 1. Dobbhoff tube retracted with tip in the evi sebastian body. Abdomen AP DX EXAM: XR ABDOMEN 1 VIEW 03/05/2016 [facility] EXAM: XR ABDOMEN 1 VIEW Center DATE: 03/05/2016 at 1026 and 1027 hours. INDICATION: Tube placement/removal/reposition COMPARISON: Abdominal radiograph dated 7 TECHNIQUE: AP view of the abdomen. FINDINGS: 1026 hours: Lines, tubes and hardware: F eeding tube tip projects over the expected region of 1st portion of the duodenum. Lower thorax: Left lung base is clear. Left costophrenic sulcus is sharp. Right lung base is not seen. Bowel: Normal caliber with nonobstructive bowel gas pattern. Bones and soft tissues: No acute bony abnormalit y. 1027 hours: The feeding tube has been ad vanced with the tip now projecting over the 3rd portion of the duodenum. IMPRESSION: 1. Final image demonstrates feeding tube tip in 3rd portion of duodenum. 2. Nonobstructive bowel gas pattern. Angiogram cervical PROCEDURE: 03/04/2016 [facility] layla artery bilateral VR 1. Diagnostic Cerebral Angiogram: Center DATE: 03/04/2016 3:46 PM ABRASIVE GRADER INDICATION: 7 days follow-up cerebral angiogram to rule out vasospasm with plan for endovascular treatment HISTORY: 65 years Female wi th a history of ruptured left posterior corticated [...] supine position where gene ral anesthesia was administe red under the supervision of the attending. The patient was then prepped and draped in sterile fashion. The Right femoral artery was accessed using single wall micropuncture technique and a 5 Montenegrin sh eath was placed. A 5 Montenegrin Vert catheter was coaxially advanced with a 0.035 Terumo Glidewire through the sheath into aorta arch to select the below mentioned arteries using roadmap technique. Two-dime nsional cerebral angiogram runs were performed. After review of the angiography data, the catheter was withdrawn. Right femoral artery angiogram was performed and the ramya ter was removed. The femoral artery sheath removed and closed by Application of Mynx closure device Post procedure neurological examination was at the patient's baseline. The patient was was th en transferred to interventional holding area fo r post procedure care. CONTRAST: 50 cc. RADIATION DOSE: Cumulative Air KERMA Frontal: 544 mGy Cumulative Air KERMA Lateral: 83 mGy FLUOROSCOPY TIME: 5.8 minutes TASKS: 1. Right femoral artery catheterization with 2- D angiogram run 2. Right common carotid artery selective catheterization with 2D angiogram run 3. Right Internal carotid ar cayla selective catheterization and 2D angiogram Runs 4. Left common carotid artery selective catheter ization and 2D angiogram Runs 5. Left Internal carotid art kathie selective catheterization and 2D angiogram Runs 6. Left vertebral artery selective catheterizati on and 2D angiogram Runs 7. Application of Mynx closure device FINDINGS: 1- Right common carotid fabian ry: Right common carotid reveals normal takeoff of the internal carotid artery and external carotid artery and terminal branches. The bifurcation is smooth without irregulari ty or any significant eviden ce of atherosclerotic disease or stenosis. No early venous shunting is present. 2- Right external carotid ar cayla: Common carotid artery injection shows normal opacification of the external carotid artery and its terminal branches. There is no evidence of tumor blush, arteriovenous shunting or other abnormalities. 3- Right internal carotid ar cayla: Right internal carotid artery injection revealed brisk opacification of the internal carotid artery (ICA), middle cerebral artery (MCA), and the anterior cerebral arter y (GABRIELLA). 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 There is evidence of mild to moderate vasospasm associa cathy with the right middle ce rebral artery and right anterior cerebral artery with no flow limitation . No arteriovenous malformation or fistula. Capillary and Venous phases show normal opacification wit hout any evidence of perfusi on deficits or abnormal flow obstruction. There is evidence of 6 mm midline shift associated with displacement of both anterior cerebral artery to the left . 4- Left common carotid arter y: Left common carotid reveals normal takeoff of the cervical internal carotid artery and external carotid artery and terminal branches. The bifurcation is smooth without irr egularity or any significant evidence of atherosclerotic disease or stenosis. No early venous shunting is present. 5- Left external carotid art kathie: Common carotid artery injection shows normal opacification of the external carotid artery and its terminal branches. There is no evidence of tumor blush, arteriovenous shunting or other abnormalities. 6- Left internal carotid art kathie: Left internal carotid artery injection reveals revealed brisk opacification of the internal carotid artery (ICA), middle cerebral artery (MCA), and the anterior cerebra l artery (GABRIELLA). There is meli dence of aneurysm formation associated with the left internal carotid artery, indicating segment measuring 3.61 x 2.94 mm within neck of 2.27 mm .No arteriovenous malformati on or fistula. Capillary and Venous phases show normal opacification without any evidence of perfusion deficits or abnormal flow obstruction. 7-Left vertebral artery: Lef t vertebral artery injection reveals brisk opacification of the left vertebral artery, left posterior inferior cerebellar artery, bilateral anterior inferior cerebellar arter y, bilateral superior cerebe llar artery and bilateral posterior cerebral artery. There is evidence of origin of the left posterior cerebral artery. No aneurysm, arteriovenous fistula or malformati on. . Capillary and Venous p hases show normal opacification without any evidence of perfusion deficits or abnormal flow obstruction. 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 - Mild to moderate vasospasm associated with the right middle cerebral artery right anterior cerebral artery and basilar trunk with no flow limitation. 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 Chest 1view DX EXAM: XR CHEST 1 VIEW 03/02/2016 [facility] edical DATE: 03/02/2016 3:00 AM [facility] Cent er INDICATION: Tube placement/removal/reposition. FINDINGS: Comparison is made to yesterday. The cardiomediastinal silhou ette is stable. There is a patchy left infrahilar opacity. The costophrenic sulci are sharp, without effusions. The endotracheal tube is bee n removed. Other life-support lines and tubes remain in place. IMPRESSION: 1. A patchy left infrahilar opacity could be due to atelectasis, aspiration, and/or pneumonia. 2. Extubated. Chest 1view DX EXAM: XR CHEST 1 VIEW 03/01/2016 [facility] edical DATE: 03/01/2016 3:00 AM [facility] Cent er INDICATION: Abnormal chest sounds COMPARISON: 02/29/2016 TECHNIQUE: AP chest IMPRESSION: 1. Lines and tubes are stable. 2. Cardiomediastinal silhouette is normal for t echnique. 3. Faint patchy opacities a gain seen in both lungs suggestive of pulmonary edema or multifocal pneumonia. 4. Costophrenic sulci are sharp. 5. No acute osseous abnormalities. Chest 1view DX EXAM: XR CHEST 1 VIEW 02/29/2016 [facility] edical DATE: 02/29/2016 3:00 AM [facility] Cent er INDICATION: Abnormal chest sounds COMPARISON: 02/28/2016 TECHNIQUE: AP chest IMPRESSION: 1. Lines and tubes are stable. 2. Cardiomediastinal silhouette is normal for t echnique. 3. Aortic atherosclerotic disease. 4. Slightly diminished lung volumes bilaterally with slightly prominent lung reticulations interstitial pulmonary edema. Superimposed infection cannot be excluded. 5. Interval resolution of t he linear atelectatic changes previously seen in the retrocardiac space. 6. Costophrenic sulci are sharp. 7. No acute osseous abnormalities. Brain wo contrast CT EXAM: CT BRAIN 02/28/2016 [facility] dical DATE: 02/28/2016 at 15:27 Center CLINICAL INFORMATION: Bleeding COMPARISON: CT brain 02/27/2016 TECHNIQUE: Axial images of t he brain were obtained from the skull base through the vertex without contrast material administration. DLP: 1261 mGycm DISCUSSION: Evolving right frontal paren chymal hematoma with surrounding edema with stable mass effect. Improving subarachnoid hemorrhage. Stable intraventricular hemorrhage and ventricular volume. Stable left fron john EVD catheter. No signifi cant midline shift. No new intracranial hemorrhage. Resolving small amount of postoperative pneumocephalus. IMPRESSION: Improving subarachnoid hemorrhage. Chest 1view DX EXAM: XR CHEST 1 VIEW 02/28/2016 [facility] DATE: 02/28/2016 3:00 AM [facility] Cent er INDICATION: Tube placement/removal/reposition COMPARISON: 02/27/2016 TECHNIQUE: AP chest IMPRESSION: 1. Lines and tubes are stable. 2. There are left retrocard iac opacities obscuring the left hemidiaphragm and silhouette of the descending thoracic aorta which may represent left pleural effusion with or without underlying atelectasis or consolidation of left lower lobe. 3. Small left pleural effusion. 4. Cardiomediastinal silhou ette is normal for technique. Aortic atherosclerotic disease. 5. No acute osseous abnormalities. Abdomen AP DX EXAM: XR ABDOMEN 1 VIEW 02/27/2016 [facility] DATE: 02/27/2016 10:13 [address] GRADER [address] [address] INDICATION: Tube placement/removal/reposition COMPARISON: None. TECHNIQUE: Limited AP view of the abdomen for tube placement assessment. Number of images: 1 FINDINGS: Transesophageal feeding tube tip in the distal stomach Transesophageal suction tube sidehole in the dis john stomach Other tubes and lines: None. No other changes. IMPRESSION: Tube positions as above. Brain wo contrast CT CT HEAD WITHOUT CONTRAST 02/27/2016 [facility] DATE: 02/27/2016 at 1:53 AM. COMPARISON: 02/26/2016 at 9:08 PM. HISTORY: Bleeding. TECHNIQUE: Contiguous axial images of the brain were obtained without intravenous contrast administration utilizing a portable CT scanner. DLP: 948.93 mGy-cm. FINDINGS: Again noted are the postoper ative changes of interval right pterional craniotomy and clipping of right posterior communicating artery aneurysm. An aneurysm clip is again noted to the right of the sella turcica. Pneumocephalus is n oted beneath the craniotomy flap and within the left frontal region, unchanged. A large, 3.8 x 2.4 cm parenc hymal hematoma is again noted within the right frontal lobe. Extensive subarachnoid hemor rhage is again noted more prominent on the right. Intraventricular hemorrhage is again noted layering within the occipital horns. There has been interval plac ement of a left transfrontal ventriculostomy with the tip ending in the left frontal horn. There is no hydrocephalus. The ventricles are well decompressed. IMPRESSION: 1. Stable exam. There is no adverse interval change from the prior study of 5 hours earlier. 2. Stable Postoperative alvarez ges of right pterional craniotomy and clipping of right posterior communicating artery aneurysm. 3. Stable 3.8 x 4.2 cm parenchymal hematoma with in the right frontal lobe. 4. Subarachnoid hemorrhage and intraventricular hemorrhage, unchanged. Chest 1 v for EXAM: XR CHEST 1 VIEW 02/27/2016 [facility] edical Placement DX DATE: 02/27/2016 at 0018 hours Ce nter INDICATION: Line Placement COMPARISON: 02/26/2016 at 2120 hours TECHNIQUE: AP chest FINDINGS: Lines and tubes: Interval pl acement of right jugular central venous catheter with tip projecting at right atrium. There is no pneumothorax or intrathoracic complication identified following line placeme nt. Previous left jugular ca theter has been removed. Gastric drainage tube remains in place stable in appearance. Lungs and pleura: Lung volum es have slightly decreased. There is slight increase in linear opacities of retrocardiac left lung base most consistent with subsegmental atelectasis. No effusions are identified. Heart and mediastinum: Cardiac mediastinal silho uette is stable. Bones: No interval change. IMPRESSION: 1. Interval placement of rig ht jugular central venous catheter with tip followed to the level of right atrium. There is no evidence of pneumothorax following line placement however, a semierect view the chest is limited for that d etermination. There is been interval removal of previous left jugular catheter. 2. Slight increase in subseg mental atelectasis of retrocardiac left lung base associated with low lung volume. Chest 1view DX EXAM: XR CHEST 1 VIEW 02/26/2016 [facility] edical DATE: 02/26/2016 at 2120 hours Ce nter INDICATION: Tube placement/removal/reposition COMPARISON: Single view chest 02/26/2016 at 0249 hours TECHNIQUE: AP chest FINDINGS: Lines and tubes: Endotrachea l tube is been placed with tip measured 2.6 cm above himanshu. A left jugular catheter is in place with tip followed to the level of brachiocephalic vein. Gastric drainage tube has been placed. The tip tr avels well below the level of left diaphragm prior to moving beyond the image border. Lungs and pleura: Lung volum e has slightly improved. Scattered linear opacities are present in retrocardiac left lung base and above left costophrenic recess consistent with subsegmental atelectasis. Ad ditional platelike atelectas is is present in the right upper lobe extending to perihilar region. No effusions are identified. No pneumothorax is seen. However, a semierect view of the chest is limited for that determination. Heart and mediastinum: The c ardiac silhouette is at upper limits of normal in size. Faint calcification is seen within aortic arch. The mediastinal contours are normal. Bones: No acute bony abnormality is identified. IMPRESSION: 1. Endotracheal tube placed with tip measured 2. 6 cm above himanshu. 2. Left jugular catheter in place with tip projecting at brachiocephalic vein. There is no evidence of intrathoracic complication following line placement. 3. Left basilar and right upper lobe subsegmenta l atelectasis. 4. Gastric drainage tube in place with tip traveling well below the level of left diaphragm and moving beyond the image border. Brain wo contrast CT CT HEAD WITHOUT CONTRAST 02/26/2016 [facility] DATE: 02/26/2016 at 9:08 PM. [facility] COMPARISON: 02/26/2016 at 3:48 AM.. HISTORY: Bleeding. TECHNIQUE: Contiguous axial images of the brain were obtained without intravenous contrast administration utilizing a portable CT scanner. DLP: 948.93 mGy-cm. FINDINGS: There are postoperative alvarez ges of interval right pterional craniotomy and clipping of right posterior communicating artery aneurysm. Aneurysm clip is noted to the right of the sella turcica. There has been development o f a large, 3.8 x 2.4 cm parenchymal hematoma within the right frontal lobe. Extensive subarachnoid hemorrhage is again noted more prominent on the right. There has been interval plac ement of a left transfrontal ventriculostomy with the tip ending in the left frontal horn. There is no hydrocephalus. The ventricles are well decompressed. IMPRESSION: 1. Postoperative changes of right pterional craniotomy and clipping of right posterior communicating artery aneurysm. 2. Interval development of 3 .8 x 4.2 cm parenchymal hematoma within the right frontal lobe. 3. Subarachnoid hemorrhage, more prominent on th e right again noted. There are no mass lesions or extra axial collect ions. There are no acute bony abnormalities. The april rium is intact. IMPRESSION: 1. No acute intracranial abnormality, normal CT scan of the brain. Angiogram cervical PROCEDURE: 02/26/2016 [facility] artery bilateral VR 1. Diagnostic Cerebral Angiogram: Center 2. 3D angiography: Bilateral internal carotid a rtery DATE: 02/26/2016 7:11 AM [facility]IVE GRADER INDICATION: Due to the patie nt clinical presentation coupled with the CT and CTA brain finding, cerebral angiogram is indicated to rule out aneurysm, dural arteriovenous fistula, arteriovenous malformation or any other vascular abnormality HISTORY: 65 years Female pr esent with acute onset of severe headache. CT brain showed evidence of diffuse subarachnoid hemorrhage. Cerebral angiogram is indicated to rule out aneurysm, dural arterioven ous fistula, arteriovenous malformation or any o ther vascular abnormality ATTENDING: Magi Cee He was present and immediately available for entire procedure, performing all critical portions. Reviewed all angiographic results. FELLOW: Bernard Murray M.D. COMPARISON: CTA brain 02/25/2016 PROCEDURE: Informed consent was obtained describing all the risks, benefits and alternatives of the procedure the patient was brought to the interventional suite placed in the supine position where gene ral anesthesia was administe red under the supervision of the attending. The patient was then prepped and draped in sterile fashion. The Right femoral artery was accessed using single wall micropuncture technique and a 5 Montenegrin sh eath was placed. A 5 Montenegrin Vert catheter was coaxially advanced with a 0.035 Terumo Glidewire through the sheath into aorta arch to select the below mentioned arteries using roadmap technique. Two-dime nsional and selective 3-D cerebral angiogram runs were performed. After review of the angiography data, the catheter was withdrawn. Right femoral artery angiogram was perfo rmed and the catheter was re moved. The femoral artery sheath kept in for intraoperative angiogram. Post procedure neurological examination was at the patient's baseline. The patient was was the n transferred to interventional holding area for post procedure care. CONTRAST: 100 cc. RADIATION DOSE: Cumulative Air KERMA Frontal: 458 mGy Cumulative Air KERMA Lateral: 122 mGy FLUOROSCOPY TIME: 8.5 minutes TASKS: 1. Right femoral artery catheterization with 2- D angiogram run 2. Right common carotid artery selective catheterization with 2D angiogram run 3. Right Internal carotid ar cayla selective catheterization and 2D angiogram Runs 7. Right vertebral artery selective catheteriza tion and 2D angiogram Runs 5. Left common carotid artery selective catheter ization and 2D angiogram Runs 6. Left Internal carotid art kathie selective catheterization and 2D angiogram Runs 7. Left vertebral artery selective catheterizati on and 2D angiogram Runs FINDINGS: 1- Right common carotid fabian ry: Right common carotid reveals normal takeoff of the internal carotid artery and external carotid artery and terminal branches. The bifurcation is smooth without irregulari ty or any significant eviden ce of atherosclerotic disease or stenosis. No early venous shunting is present. 2- Right external carotid ar cayla: Common carotid artery injection shows normal opacification of the external carotid artery and its terminal branches. There is no evidence of tumor blush, arteriovenous shunting or other abnormalities. 3- Right internal carotid ar cayla: Right internal carotid artery injection revealed brisk opacification of the internal carotid artery (ICA), middle cerebral artery (MCA), and the anterior cerebral arter y (GABRIELLA). There is evidence o f aneurysm formation associated with the right internal [...] vidence of perfusion deficits or abnormal flow o bstruction. 4- Right vertebral artery: R ight vertebral artery injection revealed brisk opacification of the right vertebral artery and end of the right posterior inferior cerebellar artery no aneurysm, arteriovenou s fistula or malformation. . Capillary and Venous phases show normal opacification without any evidence of perfusion deficits or abnormal flow obstruction. 5- Left common carotid arter y: Left common carotid reveals normal takeoff of the cervical internal carotid artery and external carotid artery and terminal branches. The bifurcation is smooth without irr egularity or any significant evidence of atherosclerotic disease or stenosis. No early venous shunting is present. 6- Left external carotid art kathie: Common carotid artery injection shows normal opacification of the external carotid artery and its terminal branches. There is no evidence of tumor blush, arteriovenous shunting or other abnormalities. 7- Left internal carotid art kathie: Left internal carotid artery injection reveals revealed brisk opacification of the internal carotid artery (ICA), middle cerebral artery (MCA), and the anterior cerebra l artery (GABRIELLA). There is meli dence of aneurysm formation associated with the left internal carotid artery, indicating segment measuring 3.61 x 2.94 mm within neck of 2.27 mm .No arteriovenous malformati on or fistula. Capillary and Venous phases show normal opacification without any evidence of perfusion deficits or abnormal flow obstruction. 8-Left vertebral artery: Lef t vertebral artery injection reveals brisk opacification of the left vertebral artery, left posterior inferior cerebellar artery, bilateral anterior inferior cerebellar arter y, bilateral superior cerebe llar artery and bilateral posterior cerebral artery. There is evidence of origin of the left posterior cerebral artery. No aneurysm, arteriovenous fistula or malformati on. . Capillary and Venous p hases show normal opacification without any evidence of perfusion deficits or abnormal flow obstruction. IMPRESSION: - Right internal carotid art kathie communicating segment aneurysm measuring4.57 x 3.40 mm within neck of 2.88 mm. It accounts for the previously described subarachnoid hemorrhage - Left internal carotid fabian ry, indicating segment aneurysm measuring3.61 x 2.94 mm within neck of 2.27 mm. - The left posterior communi cating artery associated with a origin of the left posterior cerebral artery. Spine cervical wo EXAM: CT CERVICAL SPINE WITHOUT CONTRAST 02/25 [facility] contrast CT DATE: 02/26/2016 3:23 AM [facility] er INDICATION: Pain Post Trauma COMPARISON: Outside cervical spine CT on 017 TECHNIQUE: Volumetric CT ac quisition of the cervical spine without contrast. Axial, sagittal and coronal reconstructions. IV contrast: None. DLP: 514.07 mGy-cm FINDINGS: The spine is imaged from the skull bas e to the level of T2. No acute fracture or malalig nment is identified. Multilevel degenerative disc disease with disc height loss and marginal osteophyte formation is seen at C4-C5 and C5-C6. Posterior calcified disc osteoph yte complex is present at C4 -5 associated with impingement upon the anterior aspect of the thecal sac. No soft tissue abnormality is identified. Please refer to CT head for findings related to subarachnoid hemorrhage. IMPRESSION: 1. No acute abnormality of the cervical spine. 2. Multilevel mild degenerat cristina disc disease most prominent at C4-C5 and at C5-C6. Brain wo contrast CT EXAM: CT HEAD WITHOUT CONTRAST 02/26/2016 [facility] DATE: 02/26/2016 348 AM [facility] Cente r INDICATION: 65 years old Female patient with follow-up subarachnoid hemorrhage TECHNIQUE: Multiple axial im ages were obtained through the head from vertex to the skull base. Axial bone algorithm reconstruction images are provided. COMPARISON: Prior CT scan of the head dated 02/25 at 2:58 PM DISCUSSION: Interval minimal increase in previously identified subarachnoid hemorrhage predominantly along the right cerebral convexity, right sylvian fissure, right side of the basal cisterns, interhemispheric fis sure. Small amount of intrav entricular hemorrhage layering within the occipital horns, new from prior study. No definite new parenchymal abnormality or new h emorrhage is identified. There is no significant mass effect and midline shift. Overall ventricles are stable in size and config uration. Basal cisterns are occupied by the subarachnoid hemorrhage. There is no evidence of downward herniation. No interval significant adve rse changes in visualized paranasal sinuses, orbits, mastoid cavities and calvarium. IMPRESSION: 1. Interval minimal increase in scattered subarachnoid hemorrhage otherwise no significant interval adverse change. These findings are in agreem ent with preliminary report made by quality control engineer physician president: Creator: Joe Downey Date : Feb 26, 2016 03:59:21 Subject: Extensive right frontotemporal subarachnoid hemorrhage with extension into the basal cisterns and interhemispheric fissure appears more pro minent than on prior exam. Findings communicated to Dr. Murphy at 0400 hours on 02/26/2016. Brain/Neck CTA EXAM: CTA BRAIN 02/26/2016 [facility] EXAM: CTA NECK Center DATE: 02/26/2016 3:22 AM ABRASIVE GRADER INDICATION: Headache with Trauma COMPARISON: Subarachnoid hemorrhage [...] origins are patent bilaterally. Carotid arteries: The cervic al common carotid arteries and cervical internal carotid arteries have a normal course, caliber, and contour. There are areas of calcification at the carotid bifurcations. No hemodynamically significant stenosis of the carotid bifurcations or internal carotid arteries is present by NASCET criteria. There is no evidence of vascular injury. Vertebral arteries: The vert ebral arteries have a normal course, caliber and contour. The soft tissues of the neck and other incidenta l structures are normal. BRAIN CTA: Posterior indicating artery aneurysms are present bilaterally. On the right, the lesion measures 5 x 4 x 4 mm. On the left, the aneurysm measures 3 x 3 x 3 mm. No other intracranial aneurysms are noted. There is probably already so me mild vasospasm in the sylvian branches of the right MCA and in the right A1 segment. There is normal variant ok tianna. Both posterior communicating arteries are large in the basilar artery is diminutive. The right vertebral artery terminates in a posterior inferior cerebellar branch. The deep cerebral veins and major venous sinuses are normal. Subarachnoid hemorrhage is again noted in the ba silar cisterns. IMPRESSION: Lateral posterio r communicating artery aneurysms, suspect recent rupture of the right-sided aneurysm (All qualitative and quantit ative assessments of carotid bifurcation and proximal internal carotid artery stenosis are made referencing the distal internal carotid artery {NASCET criteria}.) Brain-Outside Consult EXAM: CT HEAD WITHOUT CONTRAST 02/26/2016 [facility] CT DATE: Study was performed at outside hospital on 02/26/2016 at 1221 hours and submitted for 2nd interpretation on 02/26/2016 2:55 AM [facility] INDICATION: 65 years old Fem natasha patient with provided history of altered sensorium, severe headache. TECHNIQUE: Outside hospital noncontrast CT Scan of the head was submitted for 2nd opinion/interpretation. Multiple axial images were obtained through the head from vertex to the skull base. Axial bone a lgorithm reconstruction images were provided. COMPARISON: None. FINDINGS: There is extensive subarachn oid hemorrhage scattered along the right cerebral convexity, suprasellar cistern, interpeduncular cistern, ambient cistern, perimesencephalic cistern, prepontine and along the interhemispheric fissure. No definite evidence of cerebral edema, mass eff ect, midline shift is seen. Ventricles are normal in siz e and configuration. No pathological extra-axial fluid collection is seen. Basal cisterns are occupied by subarachnoid hemorrhage.. There is no evidence of downward herniation. Calvarium is intact. Visualized paranasal sinuses are clear. Mastoid air cells are well aerated. Visualized orbits appear grossly unremarkable. IMPRESSION: 1. Scattered subarachnoid h emorrhage along the right several convexity and basal cisterns as detailed above concerning for aneurysm rupture. Further evaluation with CT angiogram of the head is recommended. Outside hospital report is a vailable. Findings are in agreement with outside hospital report. These findings are in agreem ent with preliminary report made by quality control engineer physician president: Creator: Joe Downey Date : Feb 26, 2016 03:09:02 Subject: Extensive right frontotemporal subarachnoid hemorrhage with extension into the basal cisterns. Findings were originally communicated to Dr. Mckeon from prior outside report. Chest 1view DX EXAM: XR CHEST 1 VIEW 02/26/2016 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 Subsegmental atelectasis is present in the left lower lung. No pleural-based abnormality is identified. Pulmonary v ascularity is normal. The he art size is normal for technique. No acute bony abnormality is identified. IMPRESSION: Low lung volumes with mild subsegmental atelecta sis in the left lower lung. Consultation Notes No Data Provided for This Section Discharge Summaries No Data Provided for This Section History and Physicals No Data Provided for This Section Vital Signs Vital Sign Value Date Comments Source Temperature Oral (F) 98.0 F 08/26/2017 [facility] Respitory Rate 18 08/26/2017 [facility] Systolic (mm Hg) 126 08/26/2017 [facility] Diastolic (mm Hg) 83 08/26/2017 [facility] Heart Rate 67 08/26/2017 [facility] Heart Rate 60 08/26/2017 [facility] Respitory Rate 18 08/26/2017 [facility] Systolic (mm Hg) 109 08/26/2017 [facility] Diastolic (mm Hg) 61 08/26/2017 [facility] Temperature Oral (F) 98.8 F 08/26/2017 [facility] Temperature Oral (F) 97.5 F 08/26/2017 [facility] Heart Rate 60 08/26/2017 [facility] Systolic (mm Hg) 110 08/26/2017 [facility] Diastolic (mm Hg) 61 08/26/2017 [facility] Respitory Rate 18 08/26/2017 [facility] Weight 77.273 08/25/2017 [facility] BMI Calculated 42.64 08/25/2017 [facility] Height 134.62 cm 08/25/2017 [facility] BMI Calculated 29.24 08/24/2017 [facility] Height 162.56 cm 08/24/2017 [facility] Weight 77.273 08/24/2017 [facility] Weight 77.273 08/24/2017 [facility] BMI Calculated 29.24 08/24/2017 [facility] Height 162.56 cm 08/24/2017 [facility] Weight 75.4 06/20/2016 [facility] Respitory Rate 39 06/20/2016 [facility] Systolic (mm Hg) 105 06/20/2016 [facility] Diastolic (mm Hg) 55 06/20/2016 [facility] Respitory Rate 20 06/20/2016 [facility] Systolic (mm Hg) 114 06/20/2016 [facility] Diastolic (mm Hg) 57 06/20/2016 [facility] Respitory Rate 20 06/20/2016 [facility] Systolic (mm Hg) 114 06/20/2016 [facility] Diastolic (mm Hg) 57 06/20/2016 [facility] BMI Calculated 27.52 06/19/2016 [facility] Weight 72.727 06/19/2016 [facility] Height 162.56 cm 06/19/2016 [facility] Heart Rate 82 06/19/2016 [facility] Height 162.56 cm 06/18/2016 [facility] BMI Calculated 27.52 06/18/2016 [facility] Weight 72.727 06/18/2016 [facility] Temperature Oral (F) 97.9 F 03/29/2016 [facility] Systolic (mm Hg) 99 03/29/2016 [facility] Diastolic (mm Hg) 57 03/29/2016 [facility] Heart Rate 71 03/29/2016 [facility] Temperature Oral (F) 98.5 F 03/29/2016 [facility] Heart Rate 69 03/29/2016 [facility] Systolic (mm Hg) 94 03/29/2016 [facility] Diastolic (mm Hg) 62 03/29/2016 [facility] Respitory Rate 16 03/29/2016 [facility] Respitory Rate 18 03/28/2016 [facility] Systolic (mm Hg) 134 03/28/2016 [facility] Diastolic (mm Hg) 71 03/28/2016 [facility] Temperature Oral (F) 98.3 F 03/28/2016 [facility] Heart Rate 66 03/28/2016 [facility] Respitory Rate 18 03/28/2016 [facility] Weight 75 03/12/2016 [facility] BMI Calculated 28.38 03/12/2016 [facility] Height 162.56 cm 03/12/2016 [facility] Weight 75 03/12/2016 [facility] BMI Calculated 28.38 03/12/2016 [facility] Height 162.56 cm 03/12/2016 [facility] Systolic (mm Hg) 109 03/12/2016 [facility] Diastolic (mm Hg) 66 03/12/2016 [facility] Respitory Rate 18 03/12/2016 [facility] Heart Rate 86 03/12/2016 [facility] Temperature Oral (F) 100.1 F 03/12/2016 [facility] Systolic (mm Hg) 124 03/12/2016 [facility] Diastolic (mm Hg) 60 03/12/2016 [facility] Systolic (mm Hg) 119 03/11/2016 [facility] Diastolic (mm Hg) 62 03/11/2016 [facility] Heart Rate 86 03/11/2016 [facility] Respitory Rate 18 03/11/2016 [facility] Temperature Oral (F) 98.3 F 03/11/2016 [facility] Temperature Oral (F) 98.0 F 03/11/2016 [facility] Respitory Rate 18 03/11/2016 [facility] Heart Rate 89 03/11/2016 [facility] Height 160.02 cm 03/01/2016 [facility] Height 160.02 cm 03/01/2016 [facility] Height 160.02 cm 03/01/2016 [facility] Weight 90.009 02/26/2016 [facility] BMI Calculated 35.15 02/26/2016 [facility] Weight 90.909 02/26/2016 [facility] BMI Calculated 34.4 02/26/2016 [facility] Encounters Location Location Encounter Encounter Reason Attending ADM DC Stat us Source Details Type Number For Provider Date Date Visit [facility] Inpatient [id number] Isauro Marrero 02/25 03/12 [facility] Inpatient [id number] Boom 03/12 03/29 [facility] Outpatient [id number] ISAURO L 04/17 Activ e [facility] Outpatient [id number] REI MCDOWELL 05/24 Acti ve [facility] Inpatient [id number] Rei Mcdowell 06/19 06/20 [facility] Observation [id number] Veronika 08/24 08/26 [facility] [place] /2017 [facility] Procedures Procedure Code Date Perfomer Comments Source Selective catheter [id number] 06/19/2016 [place] as placement, common Medical carotid or innominate Elda ter artery, unilateral, any approach, with angiography of the ipsilateral extracranial carotid circulation and all associated radiological supervision and interpretation, includes angiography of the c Selective catheter [id number] 06/19/2016 [place] as placement, internal Medic al carotid artery, Center unilateral, with angiography of the ipsilateral intracranial carotid circulation and all associated radiological supervision and interpretation, includes angiography of the extracranial carotid and ce Selective catheter [id number] 03/04/2016 [place] as placement, vertebral Medi layla artery, unilateral, Cente r with angiography of the ipsilateral vertebral circulation and all associated radiological supervision and interpretation, includes angiography of the cervicocerebral arch, when performed Craniotomy and [id number] [facility] clipping of Medical intracranial aneurysm Elda ter Repair of aneurysm by [id number] [facility] Assessment and Plan Assessment and Plan Date Source Extracted from:Title: post discharge follow-up call 08/27/19 [facility] Author: Tory Lazo RN Date: 09/01/17 Completed post-discharge follow-up call for this patient on August 28, 2017 at 3:49PM. 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 Dotson is a 67 yo F w/PMH of HTN, H LD, DM, and R SAH s/p R Pcomm clipping and asx clipping of L Pcomm who presented to [facility] with sudden onset STEEL ERECTING PUSHER and LFD @ 11 AM 08/24 [place] [facility] ith her family. At OSH, NIHSS 3, non-con trast CT obtained there w/out bleed. Transferred to [facility] for HLOC, but by time of arrival around 1:40 PM, her symptoms completely resolved and she was back to her baseline. MRI revealed no acute stroke. Echo was unremarkable. EEG was abnormal, consistent w/known R encephalomalacia; no epileptiform discharges. It's not clear whether this episode was a TIA or seizure, but we leaned towards TIA given her risk factors, and pt was switched from ASA to plavix. Metformin was also increased on dc for better DM control. Her home lovastatin was continued as her LDL was at goal. She was educated that if sh e has another similar episode in the future, that she may be having seizures, and may need to start on an anti- epileptic medication. LDL: 67 A1c: 8.1 EKG: NSR Non-con CT: No early signs of cortical-b ased ischemia or acute hemorrhage. Posttreatment changes of [...] Medications: Amaryl 4 mg oral tablet 4 mg = 1 tab, PO, Daily clopidogrel 75 mg oral tablet 75 mg = 1 tab, PO, Daily lisinopril 20 mg oral tablet 20 mg = 1 tab, PO, Daily lovastatin 10 mg oral tablet 10 mg = 1 tab, PO, Daily metFORMIN 1000 mg oral tablet 1,250 mg, PO, BID-Meals trazodone 50 mg oral tablet 50 mg = 1 tab, PO, Bedtime Discharge Instructions/Recommendations: [facility] in the [facility]. We suspect that you had a Transient Ischemic Attack, which is a warning sign that you are at risk for a stroke. Melina gement of your diabetes, high blood pres sure and high cholesterol are very important to preventing future strokes, so it is very important that you take the medications prescribed to you during this [facility] pital stay. Equally important is stoppin g all tobacco and drug use. You will need to follow up with a stroke doctor or HAND BOX FOLDER to prevent a future stroke. It is important to note that if this hap pens again, you may be having seizures and may need to be started on anti-epileptic medications. Please let your future medical providers know. Medications: - Stop taking Aspirin, and start taking Plavix 75 mg daily for stroke prevention. - We have increased your dose of Metform in to 1250 mg twice a day for diabetes control. - Continue taking your home Lovastatin 10 mg daily for high cholesterol. - Take your blood pressure medications d aily and monitor your blood pressure at home (goal <130/80). - Take your other medications as instructed in your discharg e summary. Follow-up appointments: - You have a follow-up appointment sched reza in the [facility] on 09/12/17 at 10:30 AM to follow up on management of your stroke. - Please call your PCP to schedule an ap pointment within 2-4 weeks for post- hospitalization follow-up and management of your overall health. Please call our nurse navigator Tory ([phone]) with any questions after discharge. Please take your discharge paperwork with you to your follow-up appointments. Returning back to work will be addressed at your follow-up appointment. Stroke clinic address: [facility] [address] , [address] [place] [address] I spent 35 minutes today discussing the above plan of care with the team and patient and answering all questions, as well as reconciling medications, coordinating follow up and discharge to home. Suspec t TIA with plan for secondary prevention as above. Less likely seizure given patient admits to recalling entire episode and transient STEEL ERECTING PUSHER, and EEG findings. Rebeka understands to return to call 911 if repeat episode or any new focal weakness numbness difficulty speaking or swallowing or vision changes or dizziness. Exam nonfocal today. Patient was not discharged before noon as she had been pendi ng EEG. Gita Méndez MD Assistance Professor, Vascular Neurology [phone] Extracted from:Title: Stroke History&Physical Author: Kameron Nguyễn MD Date: 08/24/17 Stroke History and Physical Chief Complaint: Left sided weakness HPI: 67 yo F wiht PMH of HTN, right SAH s/p R Pcomm clipping, asymptomatoc clipping of L Pcomm presented to [facility] with left sided weakness, left sided facial droop. LSN 11 am. She was at [facility] with the family and all of sudden sh e felt weak on the left with LFD. [...] cramps LYMPH/IMMUNO: No lymph node enlargement/tenderness, no heat/ cold intolerance Past Medical History: HTN, DM Past Surgical History: Per HPI (prev MRN for more hx w/clipp ing [id number]) Family Medical History: No significant fam hx Social History: NO SAD abuse. Medications: ASA, lovastatin 10 qd, nydia nopril 20 qd, metformin 1k bid, trazodone 50 [...] 24 Hr Tmax: 98.2F (36.78c) at 08/24 14:0 8 Vital Signs are the last 5 in the past 48 hours. GENERAL: Awake, alert in NAD HEENT: - Normocephalic and atraumatic, dry mm, no LN++, no T hyromegally LUNGS - Clear to auscultation bilaterally with no wheezes CV - S1S2 RRR, no m/r/g, equal pulses bilaterally. ABDOMEN - Soft, nontender, nondistended with normoactive BS NEURO: Mental Status: AA&Ox3 Language: speech is ___clear__. Naming, repetition, fluency, and comprehension intact. Cranial Nerves: PERRL__3__mm/brisk. EOMI , visual epps full, no facial asymmetry, facial [...] 1a. Level of Consciousness; 0-alert 1-drowsy 2-stupor 3-co ma 1b. LOC Questions month and age; 0-both 1-one 2-neithe r 1c. LOC Commands open/close eyes, staff midwife /release non-paretic hand; 0-both 1-one 2-neither 2. Best Gaze; 0-nl 1-partial 2-forced gaze 3. Visual Epps; 0-No visual loss. 1-Partial hemianop ia 2-Complete 3-Bilateral 4. Facial Palsy; 0-none 1-minor 2-partial 3-complete 5. Motor - R arm; 0-No drift 1-Drift 2 -Some antigravity 3-No antigravity 4- No movement 6. Motor - R leg; 0-No drift 1-Drift 2 -Some antigravity 3-No antigravity 4- No movement 7. Motor - L arm; 0-No drift 1-Drift 2 -Some antigravity 3-No antigravity 4- No movement 8. Motor - L leg; 0-No drift 1-Drift 2 -Some antigravity 3-No antigravity 4- No movement 9. Limb Ataxia; 0 absent 1 - 1limb 2 - 2 limbs 10. Sensory; 0-nl 1-partial loss 2-dense loss 11. Best Language; 0-nl 1-mild/mod 2-severe 3-mute 12. Dysarthria; 0-nl 1-mild/mod 2-severe x-unt estable 13. Extinction and Inattention (forme rly Neglect); 0-none 1-partial 2-complete 0 Total Labs: Labs (Last four charted [...] early signs of cortical-based ischemia or acute hemorrhag e. Posttreatment changes of clipping and coiling of ICA aneurys ms. Signed By: Marcela Johnson MD CTA: No LVO, no perfusion defect. Assessment: 67 yo F wiht PMH of HTN, rig ht SAH s/p R Pcomm clipping, asymptomatoc clipping of L Pcomm presented to [facility] with left sided weakness, left sided facial droop. LSN 11 am. Symptom s resolved. TIA vs. seizure vs. stroke recrudecense vs. sent inel SAH r/o. Plan: TIA Seizures Acuity: Acute Current Suspected Etiology: TBD Continue Evaluation: -Admit to stroke unit. -Continue Aspirin/ Statin -Blood pressure control, goal of SYS permissive -MRI/ECHO/A1C/Lipid panel. -Hyperglycemia management per SSI to maintain glucose 140-18 0mg/dL. -PT/OT/ST therapies and recommendations when able. -EEG [...] Code THE FOLLOWING WERE PRESENT ON ADMISSION: EMBEDDED SOFTWARE DESIGN ENGINEER - Chronic Stroke, Seizures?, SAH rule out. [...] (None) Kameron Nguyễn MD Neurology PGY-3 MSO [id number] Vascular Neurology Fellow Addendum I saw and examined the patient. I review ed the resident's note. I agree with the findings and plan of care as documented in the resident's note. Any exceptions/additions are edited/noted. 67 year old woman with history of prior SAH post R Pcomm clipping, asymptomatic clipping of L Pcomm, HTN, and SALCEDO presenting with left facial droop, left hemiparesis and headache. Outside NIHSS 3. Outsid e CTH revealed no acute process per repo rt. She was transferred for further evaluation. On [...] as outlined in the note except as detail ed below. In addition, i have reviewed t he patient's neuroimaging findings which reveal: Brain Stroke wo contrast CT 08/24/17 14:12:45 IMPRESSION: No early signs of cortical-based ischemia or acute hemorrhag e. Posttreatment changes of clipping and coiling of ICA aneurys ms. Signed By: Marcela Johnson MD Brain/Neck Stroke perfusion CTA 08/24/17 15:13:09 IMPRESSION: No stenosis by NASCET criteria. No intracranial proximal branch occlusion or flow-limiting s tenosis. Right paraclinoid aneurysmal clip. Left supraclinoid coiling [...] E11.9 Type 2 diabetes mellitus without complications Extracted from:Title: PM&R Discharge Summary 03/29/2016 [facility] Author: Jarod Curtis DO Date: 03/29/16 DISCHARGE [...] ruptured R PCOM aneurysm and transferred to [facility] for HLOC. EVD was placed. She then underwent R frontot emporal craniotomy, anterior skull base resection, microdissection, and clipping with Dr. Marrero on 02/26/16. Post- operatively patient found to have L hemiplegia with small right intraparenchymal hemorrhage seen on CT. Patient was extubated and had repeat angiogram on 1/23 which showed moderate vasospasm. EVD was dc'd and patient was admitted to [facility] for acute inpatient rehabilitation. PERTINENT PAST HISTORY: PMH/PSH: DM type 2 Social History: Alcohol Details: Current, Type Beer. Frequency: 1-2 times per month. Previous treatment: None. Alcohol use interferes with work or home: No. Drinks more than intended: No. Others hurt by drinking: No. [place] dy to change: No. Household alcohol concerns: No. Tobacco Details: Use: Never smoker. Tobacco smo ke exposure: None. Did the Patient Smoke Cigarettes Anytime During the Last 365 Days? No. Cessation Counseling Provided? No. Details: Use: Never smoker. Tobacco smo ke exposure: None. Did the Patient Smoke Cigarettes Anytime During the Last 365 Days? No. Cessation Counseling Provided? No. Substance Abuse Details: Use: None. Family History: Mother: Liver cancer Allergies: Allergies: NKDA HOSPITAL COURSE: Patient was admitted to [facility] Rehab on 02/12 . She completed 7 days of seizure ppx with keppra on 03/13. Patient was tapered of nimodipine according to neurosurgery's plan without recurrence of vasosp asm. Neuropsych and Speech language tutor ology were consulted for cognitive deficits. Patient's dysphagia improved with CUSTOMER ENGAGEMENT REPRESENTATIVE therapies, and her diet was upgraded to regular solids thin liquids. Fernanda alcantara was transferred back to her home dose of metformin for management of her diabetes. Metformin dose was increased to 1000mg bid prior to discharge. Patient still with hyperglycemia, and patient and carolina ilda were counseled to follow up with [facility] doctor following discharge to continue monitoring and management patient's blood sugar. Hospital course was complicated by sleep wake cycle dysfu nction for which patient was started on melatonin and trazodone, UTI for which patient was treated with 7 days of Cipro, and agitation which improved with buspar. Buspar was weaned prior to discharge, a nd agitation did not reoccur. Patient pr ogressed well with therapies for her cognitive deficits and hemiparesis d/t SAH. She showed improvement in endurance, strength, and independence with ADLs. She wa s discharged home with family on 03/29/16 with 24 hour superv ision. DISCHARGE FIM SCORES: PT Current Status PT Treatment Recommendations PT Treatment Recommendations: Patient pr esents with Left-sided weakness s/p ICH with resultant impairment of all functional mobilities including transitional movements, transfers and gait with loss of independence in work, home and community settings. patient is appropriate for inpatient rehabilitation and has potential to regain previous level of function. Discharge disposition is either home with [facility] or home with outpatient [facility] therapy services. Performed: 03/12/16 12:41 Mobility Transfer Bed to and From Chair: Supervision or Setup Performed: 03/28/16 13:48 Floor Recovery: Does not occur Performed: 03/28/16 13:48 Transfer Toilet Type: Stand step Performed: 03/28/16 13:48 Toilet Transfer Device Type: Grab bar, W alker, rolling, Other: elevated toilet in restroom Performed: 03/28/16 13:48 Tub, Shower Transfer: Supvn/Setup - 5 Performed: 03/28/16 1 6:18 Tub/Shower Transfer Type: Stand step Performed: 03/28/16 13 :48 Tub/Shower Transfer Device Type: Grab ba r, Walker, rolling, Other: Tubbench in tub Performed: 03/28/16 13:48 Ambulation Level Surfaces Ambulation Device: Cane, single-point/st raight, Walker, rolling Performed: 03/27/16 15:35 Ambulation Distance: 400 ft Performed: 03/28/16 13:48 Ambulation Uneven Surfaces Locomotion Walk: Supvn/Setup - 5 Performed: 03/28/16 13:48 Stairs Device: Straight cane, Right side rail up the stairs Performed: 03/27/16 15:35 Number of Stairs Performed: 12 Performed: 03/28/16 13:48 Locomotion Stair: Min A - 4 Performed: 03/28/16 13:48 Bed,Chair,Wheelchair: Supvn/Setup - 5 Performed: 03/28/16 1 3:48 Wheelchair Mobility Level Surfaces Wheelchair Mobility Level Distance: 40 ft Performed: 13:48 OT Current Status OT Treatment Recommendations OT Treatment Recommendations: Pt is a 65 yo female s/p SAH and s/p R frontotemporal craniotomy, anterior skullbase resection and hospitalization complicated by small R intraparenchymal hemorrhage. 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 Pt now presenting with non-dominant L hemiplegia, decreased L side attention, decreased balance, and motor planning for adl m obility and self care. Pt will benefit f rom intensive rehab program to progress with adl re-training, adl mobility training, caregiver training, and dme recommendations to maximize independence and decr ease burden of care for safe home discharge. Performed: 14:32 ADL Eating: Supvn/Setup - 5 Performed: 03/28/16 16:18 Grooming: Supvn/Setup - 5 Performed: 03/28/16 16:18 Grooming Descriptors: Supported short sit Performed: 16:18 Bathing: Supvn/Setup - 5 Performed: 03/28/16 16:18 Bathing Descriptors: Supported short sit, Tub Performed: 16:18 Bathing Equipment: Long handled bath spo nge, Tub bench Performed: 03/28/16 16:18 Upper Extremity Dressing: Supvn/Setup - 5 Performed: 16:18 Lower Extremity Dressing: Supvn/Setup - 5 Performed: 16:18 Dressing Descriptors: Supported short sit Performed: 16:18 Toileting: Supvn/Setup - 5 Performed: 03/29/16 08:50 Toileting Descriptors: Sitting without back support Perform ed: 03/28/16 16:18 Toileting Equipment: Grab bars/rail, Oth er: BSC; elevated toilet Performed: 03/28/16 16:18 Toilet Transfer: Supvn/Setup - 5 Performed: 03/28/16 16:18 Tub Transfer: Supvn/Setup - 5 Performed: 03/28/16 16:18 Shower Transfer: Does not occur Performed: 03/28/16 13:48 Cognition Cognition: Other: decreased problem solv ing and abstract reasoning Performed: 03/28/16 16:18 Vision Vision Status: Impaired Performed: 03/12/16 14:32 CUSTOMER ENGAGEMENT REPRESENTATIVE Current Status Severity Level Comprehension: Standby prompting - 5 Performed: 03/29/16 08 :48 Comprehension Mode: Auditory Performed: 03/29/16 08:48 Expression: Standby prompting - 5 Performed: 03/29/16 08:48 Expression Mode: Vocal Performed: 03/29/16 08:48 Memory: Standby prompting - 5 Performed: 03/29/16 08:48 Problem Solving: Standby prompting - 5 Performed: 03/29/16 08:48 Social Interaction: Standby prompting - 5 Performed: 08:48 PROCEDURES PERFORMED DURING ADMISSION: none PHYSICAL [...] 24 Hr Tmax: 98.5F (36.94c) at 03/28 23:1 0 Vital Signs are the last 5 in the past 48 hours. Physical Exam General: well-developed, NAD, lying in bed with daughter at bedside Eyes: sclera non-icteric, normal conjunctiva Cardiovascular: no pallor, no cyanosis, regular rate Respiratory: chest symmetry with respirations, non-labored r espirations Skin: warm, surgical scalp wound with edges well approximate d Psych: calm, cooperative, pleasant Neurologic: Mental Status: awake, alert, oriented to person and plac e DISCHARGE MEDICATIONS: Discharge Medications trazodone 50 mg oral tablet :50 mg, 1 ta b, PO, Bedtime, for 30 day, 30 tab, [...] Refill(s) Ordered by: Jarod Curtis 03/28/2016 12:41 polyethylene glycol 3350 oral powder for reconstitution :17 gm, PO, Daily, for 30 day, 527 gm, 0 Refill(s) Ordered by: Jarod Curtis 03/28/2016 12:39 CONDITION OF PATIENT ON DISCHARGE: stable DISPOSITION/INSTRUCTIONS/FOLLOW UP: Discharge to: Follow up Care Other: Dr Author Marrero When: within 16 days Comments: Call for follow up appointm ent The patient should follow up with Dr. Isauro Marrero MD In the neurosurgery clinic at [phone] in 2 week. Other: Out Patient therapy prescription Comments: in your discharge envelop. Other: Follow up with primary care provider When: 5 to 7 days Comments: Call for follow up appointment Other: Good Rx card Comments: [email or web address] medication card Activity: Activity Allowed at Discharge : Activi ty as tolerated, Other- see in Additional Activity Details Activity Details : patient requires 24 hour supervision Discharge Driving : None Discharge Lifting : No lifting until cleared by physician Discharge Sexual Activity : No sexual activity until clear ed by physician Diet: Diet Carbohydrate Controlled -- 03/19/16 11:56:00 [employer], Diabetic/4carb per meal (1800 layla) Follow up Appointments: The discharge plan was reviewed and disc ussed with the patient/family and appropriate education and counseling was provided. They were given the opportunity to ask any questions which were answered to the best of my knowledge. Physical Medicine and Rehabilitation Attending Physician Att estation: I personally examined the patient with t he resident, reviewed all components of the history and physical examination and agree with the resident's assessment and plan of care as documented. Any exceptions are noted below. Chava Dixon MD Extracted from:Title: Team Rounds PM&R Author: Boom Charles MD Date: 03/28/16 Progress Note - Team Rounds Day Patient seen and examined today on day of rounds. Medical Updates: 65 year old female with PMH DM who prese nted with severe headache with N/V and questionable LOC on 02/24. 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 EVD was placed . She then underwent R frontotemporal cr aniotomy, anterior skull base resection, microdissection, and clipping with Dr. Marrero on 02/26/16. Post-operatively patient found to have L hemiplegia with small rig ht intraparenchymal hemorrhage seen on C T. Patient was extubated and had repeat angiogram on 03/04 which showed moderate vasospasm. EVD was dc'd and patient was admitted to [facility] for acute inpatient rehabilitation. - No [...] 24 Hr Tmax: 98.6F (37.00c) at 03/27 23:4 4 Vital Signs are the last 5 in the past 48 hours. Physical Exam: General: well-developed, NAD, lying in bed with family at b edside Eyes: sclera non-icteric, normal conjunctiva Cardiovascular: no pallor, no cyanosis Respiratory: chest symmetry with respirations, non-labored r espirations Skin: warm, surgical scalp wound with edges well approximate d Psych: calm, cooperative Neurologic: Mental Status: awake, alert, oriented to person and plac e Nursing: - no pain - stable v/s Therapeutic Reports: PT Current Status PT Treatment Recommendations PT Treatment Recommendations: Patient pr esents with Left-sided weakness s/p ICH with resultant impairment of all functional mobilities including transitional movements, transfers and gait with loss of independence in work, home and community settings. patient is appropriate for inpatient rehabilitation and has potential to regain previous level of function. Discharge disposition is either home with [facility] or home with outpatient [facility] therapy services. Performed: 03/12/16 12:41 Mobility Transfer Bed to and From Chair: Supervision or Setup Performed: 03/21/16 13:00 Floor Recovery: Does not occur Performed: 03/21/16 13:00 Transfer Toilet Type: Stand step Performed: 03/21/16 13:00 Toilet Transfer Device Type: Bedside commode Performed: 10/27 13:00 Tub, Shower Transfer: Min A - 4 Performed: 03/21/16 13:00 Tub/Shower Transfer Type: Stand step Performed: 03/21/16 13 :00 Tub/Shower Transfer Device Type: Melina pennington r, Other: Tubbench in tub Performed: 03/21/16 13:00 Ambulation Level Surfaces Ambulation Device: Cane, single-point/st raight, Walker, rolling Performed: 03/27/16 15:35 Ambulation Distance: 400 ft Performed: 03/27/16 15:35 Comment: + additional 300 feet with single point cane. Ambulation Uneven Surfaces Locomotion Walk: Supvn/Setup - 5 Performed: 03/27/16 15:35 Stairs Device: Straight cane, Right side rail up the stairs Performed: 03/27/16 15:35 Number of Stairs Performed: 12 Performed: 03/27/16 15:35 Locomotion Stair: Min A - 4 Performed: 03/27/16 15:35 Bed,Chair,Wheelchair: Supvn/Setup - 5 Performed: 03/27/16 1 5:35 Wheelchair Mobility Level Surfaces Wheelchair Mobility Level Distance: 40 ft Performed: 15:35 OT Current Status OT Treatment Recommendations OT Treatment Recommendations: Pt is a 65 yo female s/p SAH and s/p R frontotemporal craniotomy, anterior skullbase resection and hospitalization complicated by small R intraparenchymal hemorrhage. 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 Pt now presenting with non-dominant L hemiplegia, decreased L side attention, decreased balance, and motor planning for adl m obility and self care. Pt will benefit f rom intensive rehab program to progress with adl re-training, adl mobility training, caregiver training, and dme recommendations to maximize independence and decr ease burden of care for safe home discharge. Performed: 14:32 ADL Eating: Supvn/Setup - 5 Performed: 03/27/16 16:50 Grooming: Supvn/Setup - 5 Performed: 03/27/16 16:50 Grooming Descriptors: Supported short sit Performed: 13:00 Bathing: Supvn/Setup - 5 Performed: 03/27/16 16:50 Bathing Descriptors: Supported short sit, Tub Performed: 13:00 Bathing Equipment: Long handled bath spo nge, Tub bench Performed: 03/21/16 13:00 Upper Extremity Dressing: Supvn/Setup - 5 Performed: 16:50 Lower Extremity Dressing: Min A - 4 Performed: 03/27/16 16: 50 Dressing Descriptors: Supported short sit Performed: 13:00 Toileting: Tot A - 1 Performed: 03/27/16 09:00 Toileting Descriptors: Sitting without back support Perform ed: 03/21/16 13:00 Toileting Equipment: Grab bars/rail, Oth er: BSC; elevated toilet Performed: 03/21/16 13:00 Toilet Transfer: Min A - 4 Performed: 03/21/16 13:00 Tub Transfer: Min A - 4 Performed: 03/21/16 13:00 Shower Transfer: Does not occur Performed: 03/21/16 13:00 Vision Vision Status: Impaired Performed: 03/12/16 14:32 CUSTOMER ENGAGEMENT REPRESENTATIVE Current Status Severity Level Comprehension: Standby prompting - 5 Performed: 03/25/16 09 :00 Comprehension Mode: Auditory Performed: 03/25/16 09:00 Expression: Standby prompting - 5 Performed: 03/25/16 09:00 Expression Mode: Vocal Performed: 03/25/16 09:00 Memory: Standby prompting - 5 Performed: 03/25/16 09:00 Problem Solving: Standby prompting - 5 Performed: 03/25/16 09:00 Social Interaction: Standby prompting - 5 Performed: 09:00 Goals: - improve balance - improve transfers - improve movement and coordination - monitor BM - monitor glycemia - initiate behavior modification program - ensure continence Discharge Plans: 03/29/2016 to home with 24 hr supervision Total time in care of this patient was 3 5 minutes with greater than half in coordination of care as demonstrated by multidisciplinary team rounds today. Extracted from:Title: PM&R H&P 03/12/2016 [facility] Author: Jarod Curtis DO Date: 03/11/16 PM&R History and Physical Date of Admission: 03/11/16 Admitting Physician: Dr. Boom Parrish Prior documentation in the medical recor d was reviewed and summarized to formulate this H&P. Chief Complaint: Functional deficits d/t SAH HPI: This is a 65 year old female with P DM who presented with severe headache with N/V and questionable LOC on 02/24. 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 EVD was placed. She then underwent R fr ontotemporal craniotomy, anterior skull base resection, microdissection, and clipping with Dr. Marrero on 02/26/16. Post- operatively patient found to have L hemiplegia with small right intraparenchymal hemor rhage seen on CT. Patient was extubated and had repeat angiogram on 03/04 which showed moderate vasospasm. EVD was dc'd and patient was admitted to [facility] for acute inpatient rehabilitation. Patient reports no pain at time of exam. Reports LBM was yesterday. She reports no issues with urination, however her daughter, who was present at bedside reports she has been requiring straight cathete rization. Daughter reports patient lives in a [facility] with her and 3 sons. [...] History: Tobacco Details: Use: Never smoker. Tobacco smo ke exposure: None. Did the Patient Smoke Cigarettes Anytime During the Last 365 Days? No. Cessation Counseling Provided? No. Medications (20) Active Scheduled Meds (8): 02/26/16 docusate 100 mg NJ Q12H 02/28/16 heparin 5,000 unit SUB-Q Q8H 03/10/16 insulin isophane (insulin isophane-NPH) 40 unit SUB -Q Q8H 03/10/16 levETIRAcetam (Keppra) 500 mg PO Q12H 03/10/16 niMODipine 60 mg NJ Q4H 02/29/16 polyethylene glycol 3350 (MiraLax) 17 gm PO Daily 02/26/16 senna 8.8 mg NJ Q12H 03/09/16 sodium chloride (sodium chloride 1 gm oral tablet) 1 gm PO Q6H Unscheduled Meds: None PRN Meds (12): 02/28/16 Dextrose 50% in Water IV (Dextrose 50% Syringe) 12. 5 gm IVP PRN 02/28/16 Dextrose 50% in [...] Q6H 03/01/16 albuterol (albuterol 0.083% inhalation solution) 2. 49 mg NEB RQ2H 02/28/16 glucagon 1 mg IM PRN 02/26/16 sodium chloride (Saline Flush 0.9%) 10 mL IVP PRN One Time Meds: None Continuous Infusions: None Allergies (1) Active Reaction NKDA None documented Review of Systems: Constitutional: denies fevers Eyes: denies vision changes ENT: denies epistaxis CV: denies chest pain Respiratory: denies cough GI: denies nausea : denies urinary retention (however [facility] reports she is requiring straight caths) MSK: denies pain Skin: denies rash Neuro: denies confusion Hem: denies abnormal bruising Vitals Tmp(F) Tmp(C) Ttype B P MAP Pulse RR SpO2 FIO2 ETCO2 03/11 12:04 98.0 36.67 oral 105/69 --- 89 18 97 --- --- 03/11 08:03 98.4 36.89 oral 106/60 --- 79 18 97 --- --- 03/11 03:35 99.5 37.50 oral 115/59 --- 75 18 96 --- --- 03/11 00:10 98.6 37.00 oral 109/63 --- 76 18 95 --- --- 03/10 21:23 ---- ---- ---- - ---- --- --- 16 95 21% --- 24 Hr Tmax: 99.5F (37.50c) at 03/11 03:3 5 Vital Signs are the last 5 in the past 48 hours. 24 Hr Tmin: 97.7F (36.50c) at 03/10 20: 25 Weights are the last 5 in 60 days, plus initial. Date Wt(kg) Wt(lb) Ht(cm) Ht(in) Method BM I BSA 03/08 84.00 184.80 Measured 03/07 85.30 187.66 Measured 03/06 83.00 182.60 Measured 03/05 83.40 183.48 Measured 03/04 84.00 184.80 Measured 02/25 (initial) 90.91 200.00 Measured 34. 4 2.03 02/25 162.56 64.00 Stated 24 Hr Point of Care Glucoses 03/11 1205 Glucose POC 193 H 03/11 0009 Glucose POC 116 H Most Recent Scores: 03/11/16 Pain Intensity NRS (0-10) 0 03/11/16 [place] Rod Fall Score 12 03/11/16 Ronald Score 16 03/11/16 [place] Score 15 02/26/16 NIH Stroke Score 1 Lines, Tubes, and Drains: 03/10/2016 19:00 Peripheral Lines: Forea rm Right 22 gauge Over the needle catheter 03/06/2016 02:00 Gastric Tubes: Nasojejunal Nostril, right 0 03/06/2016 02:30 Surgical Procedures: 03/04/16 16:24 DCA [id number] Primary Surgeon: Mathieu Abdullahi MD (Service: RAD) (no date) DIAGNOSTIC CEREBRAL ANGIOGRAM (primary surgeon unspecified) 02/26/16 14:43 RIGHT CRANIOTOMY FOR A NEURYSM CLIPPING WITH INTRAOPERATIVE ANGIOGRAM Primary Surgeon: Isauro Marrero MD (Servic e: KELLY) 02/26/16 08:00 DCA [id number] Primary Surgeon: Rei Mcdowell MD (Ser vice: KELLY) (no date) DIAGNOSTIC CEREBRAL ANGIOGRAM POSSIBLE COIL EMB OLIZATION (primary surgeon unspecified) Physical Exam: General: well-developed, NAD, lying in bed in 4 point restra ints Eyes: sclera non-icteric, normal conjunctiva ENT: MMM, hearing grossly intact, dobhoff tube secured in pl oni Cardiovascular: warm limbs, regular rate, + s1, s2 Respiratory: chest symmetry with respirations, non-labored r espirations, cta GI: soft, not distended Skin: warm, surgical scalp wound with edges well approximate d Psych: calm, cooperative Musculoskeletal: Manual Muscle Testing: testing limited by restraints but patien t observed to moves all 4 extremities to command, L weaker than R Neurologic: Mental Status: awake, alert, oriente d to person, hospital, and year, unable to name president + slowed processing and distractibility noted on exam, c onfused draw tender: eyes track to examiner, eomi Reflexes: R, [...] visualized. 03/08 CT Brain showed interval decrease i n attenuation of R frontal hemorrhage and interval decrease in amount of subarachnoid hemorrhage. 02/25 CTA Head showed Bilateral PCOM aneu rysms with findings suggestive of rupture of R [...] Rehabilitation for the above impairments -During the patients inpatient rehabili tation stay, the patient will continue to work with physical therapy and occupational therapy. Patient will have physical therapy goals of increased indepen dence with mobility and transfers, incre ased exercise tolerance, range of motion, strengthening and stretching. Patient will have occupational therapy goals of increased independence with ADLs, mobility and transfers. -Pt will require 24 hour nursing and PM& R physician supervision as well as PT/OT/CUSTOMER ENGAGEMENT REPRESENTATIVE evaluation and treatment to achieve these goals. SAH Bilateral PCOM Aneurysms Nondominant Hemiplegia - keppra 500 q12h - will clarify duration of therapy - nimodipine - patient will benefit from physical and occupational therapies to improve independence with ADLs Cognitive Deficits - patient will benefit from CUSTOMER ENGAGEMENT REPRESENTATIVE and Neuropsych Sleep Wake Cycle Dysfunction - per daughter, patient has not been sle eping most nights. Will start melatonin and monitor sleep wake cycle. Agitation - will d/c restraints on admission and s tart patient on buspar for agitation. daughter plans to stay with her overnight. Will trial telesitter and monitor. Dysphagia - passed FEES for regular solids and nectar thick liquids on 03/11. - will benefit from CUSTOMER ENGAGEMENT REPRESENTATIVE - will consult nutrition DM - NPH [...] PGY-2 Physical Medicine and Rehabilitation Attending Physician Att estation: I performed a history and physical exami nation of the patient and discussed the management with the resident. I reviewed the note and agree with the documented findings and plan of care with any excepti ons above. There are no changes in the patient's status since preadmission screening and patient's condition on admission supports the medical necessity of admission for rehab. It is safe to proceed with patient's therapy program. All lab data were reviewed including labs, imaging,meds. Please see care 4 for details. Hospital records reviewed and sumarized above. Initial Plan of Care: Patient will requi re 24 hour rehabilitation nursing for management of bowel, bladder, skin integrity, medication management, safety measures and preventing risk factors and complications. Patient will require a minimum of 3 hour s of therapy a day for 5 of 7 days a week throughout the hospitalization, including at least the followin.5-2 hours Physical Therapy, 1.5-2 hours Occupational Therapy and 1 hour Speech-assistant speech language pathologist ology, Neuropsychology. These disciplines will be needed in order to improve the patient's impairments in mobility, transfers, activities of daily living, sw allowing and cognition and evaluation of durable medical equipment if needed at discharge. Social Work and Case Management will be consulted to assist with discharge planning and family coping strategies. Prognosis: Good Estimated Length of Stay: 10-14 days Discharge Disposition: home with family Plan of Care No Data Provided for This Section Social History Social History Date Source Social History TypeResponse 03/12/2016 [facility] Substance Abuse Use: None. Alcohol Current, Type Beer. Frequency: 1-2 time s per month. Previous treatment: None. Alcohol use interferes with work or home: No. Drinks more than intended: No. Others hurt by drinking: No. Ready to change: No. Household alcohol concerns: No. Smoking Status Never smoker; Exposure to Tobacco Smoke None; Cigarette Smoking Last 365 Days No; Reg Smoking Cessation Counseling No entered on: 08/24/17 Family History No Data Provided for This Section Advance Directives No Data Provided for This Section Functional Status No Data Provided for This Section
--- OUTSIDE RECORDS SUMMARY | 2019-08-12 09:38 | XMS REPORT | Continuity of Care Document ---
:[address] [facility] t Address [address] [place] [address] Care Team Providers Name Role Phone Srini FUENTES Attending Clinician Teena FUENTES Attending Clinician Doctor Unassigned, Name Attending Clinician Unavailable Violet Cavazos Attending Clinician Marco Truong Attending Clinician José Manuel Charles Attending Clinician Trev Wall Attending Clinician Teena FUENTES Admitting Clinician Violet Cavazos Admitting Clinician Marco Truong Admitting Clinician José Manuel Charles Admitting Clinician Fatou Marrero Admitting Clinician Problems Condition Condition Condition Status Onset Resolution Last Treating Co mments Source Name Details Category Date Date Treatment Clinician Date TIA Diagnosis Active 2017-12-09 Mem oria 08-24 11:24:00 l TIA 00:00: [place] 00 Active 08/24/2017 [facility] ESTEFANIA Diagnosis Active 2017-11-27 Memoria BILLING 08-24 09:54:00 l 00:00: [place] MAC 00 BILLING Active 08/24/2017 [facility] POSSIBLE Diagnosis Active 2017-08-24 M emoria STROKE 08-24 14:50:00 l POSSIBLE 00:00: Jimi flower STROKE 00 Active 08/24/2017 [facility] LEFT Diagnosis Active 2016-06-19 Mem oria POSTERIOR - 11:51:00 l COMMUNICAT LEFT 00:00: Jimi flower ING ARTERY POSTERIOR 00 ANEU COMMUNICAT ING ARTERY ANEU Active 06/07/2016 [facility] LFLT Diagnosis Active 2016-08-17 Mem oria TRANSFER -16 06:30:00 l #[id number] LFLT 00:00: [place] TRANSFER 00 #[id number] Active 02/26/2016 [facility] SAH Diagnosis Active 2016-08-17 Mem oria -15 06:29:00 l SAH 23:30: [place] 00 Active 02/25/2016 [facility], Rehabilita tion Weakness Problem 2018-03-15 Mem oria 14:07:55 l Weakness Jimi n 03/15/2018 [facility] Hyperlipid Problem 2018-03-15 M emoria emia, 14:07:55 l unspecifie Jimi n d Hyperlipid emia, unspecifie d 03/15/2018 [facility] Type 2 Problem 2018-03-15 Memor ia diabetes 14:07:55 l mellitus Type 2 Jimi n with diabetes hyperglyce mellitus bart with hyperglyce bart 03/15/2018 [facility] Hypertensi Problem 2018-03-15 M emoria ve chronic 14:07:55 l kidney [place] disease Hypertensi with stage ve chronic 1 through kidney stage 4 disease chronic with stage kidney 1 through disease, stage 4 or chronic unspecifie kidney d chronic disease, kidney or disease unspecifie d chronic kidney disease 03/15/2018 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 Chronic Problem 2018-03-15 Derick rodney kidney 14:07:55 l disease, Chronic Jazmin nn stage 2 kidney (mild) disease, stage 2 (mild) 03/15/2018 [facility] Dependence Problem 2018-03-15 M emoria on renal 14:07:55 l dialysis [place] Dependence on renal dialysis 03/15/2018 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 Diabetes Problem Resolve 2018-03-15 Me moria mellitus d 14:07:55 l (disorder) Diabetes He rmann mellitus (disorder) Resolved Problem 03/15/2018 [facility] Cerebral Problem Active 2018-03-15 Mem oria edema 14:07:55 l (disorder) Cerebral He rmann edema (disorder) Active Problem 03/15/2018 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 Hemorrhage Problem Active 2018-03-15 M emoria into 14:07:55 l subarachno Jimi n id space Hemorrhage of into neuraxis subarachno (disorder) id space of neuraxis (disorder) Active Problem 03/15/2018 [facility] Hyperosmol Problem Active 2018-03-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:07:55 l hypernatre Jimi n bart Hyperosmol (disorder) ality with hypernatre bart (disorder) Active Problem 03/15/2018 [facility] Hypertensi Problem Active 2018-03-15 M emoria ve 14:07:55 l disorder, [place] systemic Hypertensi arterial ve (disorder) disorder, systemic arterial (disorder) Active Problem 03/15/2018 [facility] Obstructiv Problem Active 2018-03-15 M emoria e 14:07:55 l hydrocepha Jimi n adam Obstructiv (disorder) e hydrocepha adam (disorder) Active Problem 03/15/2018 [facility] Respirator Problem Active 2018-03-15 M emoria y failure 14:07:55 l (disorder) Jimi n Respirator y failure (disorder) Active Problem 03/15/2018 [facility] Ventricula Problem Active 2018-03-15 M emoria r 14:07:55 l hemorrhage Jimi n (disorder) Ventricula r hemorrhage (disorder) Active Problem 03/15/2018 [facility] NONTRAUMAT Diagnosis Active 2016-08-17 Memoria IC 06:29:00 l SUBARACHNO Jimi n ID NONTRAUMAT HEMORRHAGE IC , UN SUBARACHNO ID HEMORRHAGE , UN Active [facility] NONTRAUMAT Diagnosis Active 2016-08-17 Memoria IC 06:29:00 l INTRACEREB Jimi n RAL NONTRAUMAT HEMORRHAGE IC , U INTRACEREB RAL HEMORRHAGE , U Active Rehabilita tion CEREBRAL Diagnosis Active 2016-06-19 M emoria ANEURYSM, 11:51:00 l NONRUPTURE CEREBRAL He rmann D ANEURYSM, NONRUPTURE D Active [facility] TRANSIENT Diagnosis Active 2017-12-09 Memoria CEREBRAL 11:24:00 l ISCHEMIC [place] ATTACK, TRANSIENT UNSP CEREBRAL ISCHEMIC ATTACK, UNSP Active [facility] Other Problem 2017-2018-03-15 2018-03-15 M emoria specified 09-05 14:07:55 14:07:55 l disorders Other 02:58: Jimi n of brain specified 50 disorders of brain 8 03/15/2018 [facility] Allergies, Adverse Reactions, Alerts This patient has no known allergies or adverse reactions. Social History Social Habit Start Date Stop Date Quantity Comments Source Social History 2016-03-12 2016-03-[address] [facility] wanda 04:05:16 04:05:16 Medications Ordered Filled Start Stop Current Ordering Indication Dosage Frequency Signature Comments Components Source Medication Medication Date Date Medication? Clinician (SIG) Name Name Metformin 2018-0 Yes 1,250 mg, Mem oria hydrochlori -17 PO, l de 1000 MG 21:02: [facility] 17 # 180 tab, 1 Refill(s), Pharmacy: [id number] Plavix 2018-0 No 75 mg, Memoria 17 Route: PO, l 14:00: Drug form: [place] 00 TAB, Daily, Dosing Weight 77.273, kg, Start date: 08/26/17 9:00:00 CDT, Duration: 30 day, Stop date: 09/24/17 9:00:00 CDT Lovastatin 2017-0 No 10 mg, Memor ia 08-26 Route: PO, l 14:00: Drug form: [place] 00 TAB, Daily, Dosing Weight 77.273, kg, Start date: 08/26/17 9:00:00 CDT, Duration: 30 day, Stop date: 09/24/17 9:00:00 CDT Lipitor No Notes: Memoria 7-17 (Same As: l 02:00: Lipitor) Metformin No 1,500 mg, Mem oria hydrochlori 7-16 PO, l de 1000 MG 21:58: BID-Meals, H ermann Oral Tablet 00 # 270 tab, 1 Refill(s), Pharmacy: [id number] clopidogrel Yes 75 mg = 1 M emoria 75 mg oral 7-16 tab, PO, l tablet 21:58: Daily, # [place] 00 90 tab, 1 Refill(s), Pharmacy: [id number] lisinopril Yes 20 mg = 1 Me moria 20 mg oral 7-16 tab, PO, l tablet 18:11: Daily, 0 [place] 00 Refill(s) Metformin No 1,000 mg = Me moria hydrochlori 7-16 1 tab, PO, l de 1000 MG 18:11: BID-Meals, H ermann Oral Tablet 00 # 30 tab, 0 Refill(s) lovastatin Yes 10 mg = 1 Me moria 10 mg oral 7-16 tab, PO, l tablet 18:11: Daily, 0 [place] 00 Refill(s) glimepiride Yes 4 mg = 1 Me moria 4 MG Oral 7-16 tab, PO, l Tablet 18:11: Daily, 0 [place] [Amaryl] 00 Refill(s) Insulin No Notes: Memoria Lispro 7-16 (Same as: l 17:11: Humalog ) Roll in palms of hands gently; Do not shake `vigorousl y. "Single Patient Use Only " WASTE: F/P - Black; E - Municipal Trash Bin Stable for 28 days at room temperatur e. Expires in days from ____Date Glucagon No 1 mg, Memoria 7-16 Route: IM, l 17:11: Drug form: PDR/INJ, PRN, Dosing Weight 77.273, kg, PRN Blood Glucose Results, Start date: 08/25/17 12:11:00 CDT, Duration: 30 day, Stop date: 09/24/17 12:10:00 CDT Dextrose No 25 gm, 50 Derick rodney 50% Syringe 7-16 mL, Route: l 17:11: IVP, Drug Form: INJ, Dosing Weight 77.273, kg, PRN, PRN Blood Glucose Results, Start date: 08/25/17 12:11:00 CDT, Duration: 30 day, Stop date: 09/24/17 12:10:00 CDT Plavix No Notes: Memoria 7-16 (Same As: l 17:00: Plavix) [place] Tylenol No Notes: Do Memor ia 7-16 not exceed l 05:45: 4 gm/day. Kain (Same as: Tylenol) Saline No Notes: Memoria Flush 0.9% 7-16 (Same as: l 02:00: BD [place] Posiflush) atorvastati No Notes: Derick rodney n 7-16 Same as l 02:00: Lipitor [place] 00 heparin No Notes: Memoria 7-15 porcine l 21:00: heparin [place] Aspirin 81 No Notes: Do Me moria MG Enteric 7-15 not crush l Coated 20:00: or chew. [place] Tablet 00 (Same As: Ecotrin) Saline No Notes: Memoria Flush 0.9% 7-15 (Same as: l 19:44: BD [place] 00 Posiflush) iodixanol No 100 mL, Memor ia 7-15 Route: l 19:16: IVP, Drug Form: SOLN, kg, ONCALL, STAT, Start date: 08/24/17 14:16:00 CDT, Duration: 1 doses or times, Dose = 2.2ml/kg, Max dose = 100ml -- "To be infused by Radiology Staff ONLY" Saline No Notes: Memoria Flush 0.9% 7-15 (Same as: l 19:05: BD [place] 00 Posiflush) Ondansetron Yes 4 mg = 1 Me moria 4 MG Oral 5-11 tab, PO, l Tablet 14:55: Q8H, PRN [place] [Zofran] 00 Nausea/vom iting, X 10 day, # 30 tab, 0 Refill(s) pneumococca No Notes: Derick rodney l capsular 5-11 (Same as: l polysacchar 14:00: Pneumovax H ermann burt type 1 00 23) vaccine / Refrigerat pneumococca e l capsular polysacchar burt type 10A vaccine / pneumococca l capsular polysacchar burt type 11A vaccine / pneumococca l capsular polysacchar burt type 12F vaccine / pneumococca l capsular polysacchar Acetaminoph Yes 1 tab, PO, Memoria en 300 MG / 5-11 Q6H, PRN l Codeine 12:49: Pain, X 15 Herm suhas Phosphate 00 day, # 60 30 MG Oral tab, 0 Tablet Refill(s) [Tylenol with Codeine #3] senna 8.6 Yes 17.2 mg = Mem oria mg oral 5-11 2 tab, PO, l tablet 12:49: Bedtime, PRN Constipati on, X 10 day, # 20 tab, 0 Refill(s) Docusate Yes 100 mg = 1 Mem oria Sodium 100 5-11 cap, PO, l MG Oral 12:49: BID, # 28 Jazmin nn Capsule 00 cap, 0 [Colace] Refill(s) Saline No Notes: Memoria Flush 0.9% 5-11 Same as: l 02:00: BD Posiflush Sterile sennosides, No Notes: Derick rodney LONG-TERM 5-11 (Same as: l 02:00: Senokot) Docusate No Notes: Memoria 5-11 (Same as: l 02:00: Colace) (Do Not Crush) Tylenol No Notes: Do Memor ia 5-11 not exceed l 00:10: 4 gm/day. [place] 00 (Same as: Tylenol) Insulin No 60 Memoria regular 5-10 units) l 21:10: WASTE: F/P [place] - Black; E - Municipal Trash Bin Stable for 28 days at room temperatur e Expires in days from ____Date Glucagon 0 No 1 mg, Memoria 5-10 Route: IM, l 21:10: Drug form: [place] 00 PDR/INJ, PRN, Dosing Weight 72.727, kg, PRN Blood Glucose Results, Start date: 06/19/16 16:10:00 CDT, Duration: 30 day, Stop date: 07/19/16 16:09:00 CDT Dextrose 2017 No 25 gm, 50 Derick rodney 50% Syringe 5-10 mL, Route: l 21:10: IVP, Drug [place] 00 Form: INJ, Dosing Weight 72.727, kg, PRN, PRN Blood Glucose Results, Start date: 06/19/16 16:10:00 CDT, Duration: 30 day, Stop date: 07/19/16 16:09:00 CDT potassium No Notes: Memori a phosphate-s 5-10 (Same as: l odium 18:36: Phos-NaK) [place] phosphate 00 Each 1.5 250 mg-280 gm pkt has mg-160 mg 250mg oral powder phosphorou for s. Mix reconstitut w/2.5oz ion water and stir. potassium No Notes: Memori a phosphate + 5-10 (Same as: l sodium 18:36: K [place] chloride 00 Phosphate. 0.9% INJ ) 1 mMol 250 mL phoshate has 1.47 mEq potassium Infuse over 4 hours Magnesium No Notes: Memori a Sulfate 5-10 WASTE: F/P l 18:36: - Sink; E [place] 00 - Municipal Trash Bin sodium No 45 mmol, Memoria phosphate + 5-10 15 mL, l sodium 18:36: Route: [place] chloride 00 IVPB, PRN, 0.9% INJ Dosing 250 mL Weight 72.727, kg, PRN Abnormal Lab Result, Start date: 06/19/16 13:36:00 CDT, Duration: 30 day, Stop date: 07/19/16 13:35:00 CDT, FOR ICU USE ONLY Magnesium No Notes: Memori a Oxide 5-10 (Same as: l 18:36: Mag-Ox [place] 00 400) Magnesium oxide 180pb=970z g elemental magnesium Dose=____m g magnesium oxide (___mg elemental magnesium) potassium No Notes: Memori a chloride 5-10 (Same as: l 18:36: Potassium [place] 00 Chloride) Calcium No Notes: Memoria Carbonate 5-10 (Same As: l 500 MG 18:36: Tums) [place] Chewable 00 Calcium Tablet Carbonate 500 mg = 200 mg elemental calcium Dose = mg calcium carbonate ( mg elemental calcium) Calcium No Notes: Memoria Gluconate 5-10 WASTE: F/P l 18:36: - Sink; E [place] - Municipal Trash Bin Sodium No 1,000 mL, Memori a Chloride 5-10 Rate: 75 l 0.154 18:36: ml/hr, [place] MEQ/ML 00 Infuse Injectable over: 13.3 Solution hr, Route: IV, Dosing Weight 72.727 kg, Total Volume: 1,000, Start date: 06/19/16 13:36:00 CDT, Duration: 30 day, Stop date: 07/19/16 13:35:00 CDT Saline No Notes: Memoria Flush 0.9% 5-10 Same as: l 18:36: BD Posiflush Sterile Ondansetron No Notes: Derick rodney 5-10 (Same as: l 15:50: Zofran) MEDICATION WASTE Product Size: 4 mg Product Wasted: 0__ mg Naloxone No Notes: Memoria 5-10 Same as l 15:50: Narcan Flumazenil No Notes: Memor ia 5-10 (Same as: l 15:50: Romazicon) Omnipaque No 150 ml, Memor ia 350 5-10 Route: l 15:26: INTRAARTER [place] 00 IAL, Dosing Weight 72.727, kg, ONCE, Start date: 06/19/16 10:26:00 CDT, Stop date: 06/19/16 10:26:00 CDT Lipitor Yes PO, Daily, Derick rdoney 5-10 0 l 11:21: Refill(s) Aspirin Yes 325 mg, Memoria 5-10 PO, 0 l 11:14: Refill(s) [place] 00 ceFAZolin No Notes: Memori a 5-10 Same as: l 06:00: Ancef [place] 00 Acetaminoph Yes 650 mg, Mem oria en 2-16 PO, Q6H, l 18:35: PRN Pain [place] 00 Score 1-5, 0 Refill(s) Trazodone Yes 50 mg = 1 Mem oria Hydrochlori 2-16 tab, PO, l de 50 MG 18:35: Bedtime, # Her lay[place] Oral Tablet 00 30 tab, 0 Refill(s) Sodium Yes 1 gm = 1 Memoria Chloride 2-16 tab, PO, l 1000 MG 18:35: Q6H, # 120 Herm suhas Oral Tablet 00 tab, 0 Refill(s) polyethylen Yes 17 gm, PO, Memoria e glycol 2-16 Daily, X l 3350 oral 18:35: 30 day, # Her lay[place] powder for 00 527 gm, 0 reconstitut Refill(s) ion Metformin Yes 1,000 mg = Me moria hydrochlori 2-16 1 tab, PO, l de 1000 MG 18:35: BID, # 60 He rmann Oral Tablet 00 tab, 0 Refill(s) Benadryl No 1 appl, Memori a Maximum 2-12 Route: l Strength 2% 18:08: TOP, QID, H ermann topical 00 Drug form: cream CRM, PRN as needed for itching, Start date: 03/24/16 12:08:00 RECOVERY ROOM RN, Duration: 30 day, Stop date: 04/23/16 12:07:00 CDT Eucerin No Notes: Memoria Plus 2-12 (Same as: l topical 18:08: Cetaphil Jimi n lotion 00 Lotion) Nimodipine No Notes: Memor ia 2-11 (Same as l 03:00: Nimodipine [place] oral suspension 30mg/ml) Instill dose into NG tube and then flush with 30ml of NS emollients, No Notes: Derick rodney topical 2-10 (Same as: l lotion 02:00: Cetaphil [place] 00 Lotion) SMOG Enema No Notes: Non M emoria 03-21 formulary l 22:50: item saline for irrigation (1L bottle) 100 mL, mineral oil 100 mL, glycerine 100 mL. Dispense (300 ml) in 1L NS bottle Bisacodyl No Notes: Memori a 2- (Same As: l 22:49: Dulcolax, [place] Bisco-Lax) magnesium No Notes: Memori a citrate 03-21 (Same as: l 58.2 MG/ML 22:49: Citrate of H ermann Oral Magnesia) Solution Concentrat ion: 1.745 gm / 30 mL mineral oil No 30 ml, Derick rodney 03-21 Route: PO, l 16:24: Drug Form: LIQ, Dosing Weight 75, kg, ONCE, Start date: 03/21/16 10:24:00 RECOVERY ROOM RN, Stop date: 03/21/16 10:24:00 RECOVERY ROOM RN Milk of No Notes: Memoria Magnesia - (Same as: l 16:24: Milk of Magnesia, MOM) Metformin No Notes: Memori a 2-09 (Same as: l 02:00: Glucophage ) Take with meal Nimodipine No Notes: Memor ia 2-08 (Same as l 22:00: Nimodipine oral suspension 30mg/ml) Instill dose into NG tube and then flush with 30ml of NS Trazodone No Notes: Memori a Hydrochlori 2-08 (Same As: l de 50 MG 03:00: Desyrel) Jazmin nn Oral Tablet 00 Metformin No Notes: Memori a 2-07 (Same as: l 13:00: Glucophage ) Take with meal Menthol No Notes: Memoria 0.0044 2-06 (Same as: l MG/MG / 22:34: Calmosepti Herm suhas Zinc Oxide 00 ne) 0.2 MG/MG Topical Ointment [Calmosepti ne Ointment] Insulin, No Notes: Memoria Aspart, 2-06 Roll in l Human 18:27: palms of [place] hands gently; Do not shake vigorously . (Same as: NovoLOG) "single patient use only" WASTE: F/P - Black; E - Municipal Trash Bin Stable for 28 days at room temperatur e. Expires in days from ____Date Dextrose No 12.5 gm, Memor ia 50% Syringe 03-18 25 mL, l 18:27: Route: [place] 00 IVP, Drug Form: INJ, Dosing Weight 75, kg, PRN, PRN Blood Glucose Results, Start date: 03/18/16 12:27:00 RECOVERY ROOM RN, Duration: 30 day, Stop date: 04/17/16 12:26:00 RECOVERY ROOM RN Glucagon No 1 mg, Memoria 03-18 Route: IM, l 18:27: Drug form: [place] 00 PDR/INJ, PRN, Dosing Weight 75, kg, PRN Blood Glucose Results, Start date: 03/18/16 12:27:00 RECOVERY ROOM RN, Duration: 30 day, Stop date: 04/17/16 12:26:00 RECOVERY ROOM RN Insulin, No 4 unit, Memori a Aspart, 2- Route: l Human 04:18: SUB-Q, [place] 00 ONCE, Dosing Weight 75, kg, Start date: 03/15/16 22:18:00 RECOVERY ROOM RN, Stop date: 03/15/16 22:18:00 RECOVERY ROOM RN Insulin, No Notes: Memoria Aspart, 2-03 Roll in l Human 04:46: palms of [place] 00 hands gently; Do not shake vigorously . (Same as: NovoLOG) "single patient use only" WASTE: F/P - Black; E - Municipal Trash Bin Stable for 28 days at room temperatur e. Expires in days from ____Date Cipro No Notes: May Memori a 2-02 interfere l 17:00: w/enteral [place] 00 feedings - Take 1 hr before or 2 hrs after antacids, dairy pdt & minerals. On empty stomach. Melatonin 3 No Notes: Derick rodney MG Extended - (Same as: l Release 03:00: Melatonin) Herm suhas Tablet 00 NovoLOG No Notes: Memoria FlexPen 2-01 Roll in l 18:00: palms of [place] 00 hands gently; Do not shake vigorously . (Same as: NovoLOG) "single patient use only" WASTE: F/P - Black; E - Municipal Trash Bin Stable for 28 days at room temperatur e. Expires in days from ____Date Insulin 0 No 3 unit, Memoria regular 03-13 Route: l 17:30: SUB-Q, [place] TID-Before Meals, Dosing Weight 75, kg, Start date: 03/13/16 11:30:00 RECOVERY ROOM RN, Duration: 30 day, Stop date: 04/12/16 6:30:00 RECOVERY ROOM RN Insulin No Notes: Memoria Glargine 03-13 Same as: l 17:30: Lantus) Do not hold insulin without contacting prescriber WASTE: F/P - Black; E - Municipal Trash Bin Glucagon No 1 mg, Memoria 03-13 Route: IM, l 16:07: PRN, Dosing Weight 75, kg, PRN Blood Glucose Results, Start date: 03/13/16 10:07:00 RECOVERY ROOM RN, Duration: 30 day, Stop date: 04/12/16 10:06:00 RECOVERY ROOM RN Dextrose No 25 mL, Memoria 50% Syringe 03-13 Route: l 16:07: IVP, Dosing Weight 75, kg, PRN, PRN Blood Glucose Results, Start date: 03/13/16 10:07:00 RECOVERY ROOM RN, Duration: 30 day, Stop date: 04/12/16 10:06:00 RECOVERY ROOM RN Melatonin 3 No Notes: Derick rodney MG Extended 03-13 (Same as: l Release 03:00: Melatonin) Herm Glucagon No 1 mg, Memoria 03-12 Route: IM, l 21:24: Drug form: [place] PDR/INJ, PRN, Dosing Weight 75, kg, PRN Blood Glucose Results, Start date: 03/12/16 15:24:00 RECOVERY ROOM RN, Duration: 30 day, Stop date: 04/11/16 15:23:00 RECOVERY ROOM RN Dextrose No 25 gm, 50 Derick rodney 50% Syringe 1-31 mL, Route: l 21:24: IVP, Drug [place] 00 Form: INJ, Dosing Weight 75, kg, PRN, PRN Blood Glucose Results, Start date: 03/12/16 15:24:00 RECOVERY ROOM RN, Duration: 30 day, Stop date: 04/11/16 15:23:00 RECOVERY ROOM RN Insulin, No Notes: Memoria Aspart, - Roll in l Human 21:24: palms of [place] 00 hands gently; Do not shake vigorously . (Same as: NovoLOG) "single patient use only" WASTE: F/P - Black; E - Municipal Trash Bin Stable for 28 days at room temperatur e. Expires in days from ____Date sennosides, No Notes: Derick rodney LONG-TERM 03-12 (Same as: l 18:00: Senokot) [place] Saline No Notes: Memoria Flush 0.9% 03-12 (Same as: l 15:00: BD [place] Posiflush) Keppra No Notes: Memoria - (Same l 15:00: as:Keppra) [place] 00 Buspar No Notes: Memoria - (Same As: l 14:00: BuSpar) [place] insulin, No Notes: Memoria isophane 03-12 Roll in l 14:00: palms of [place] 00 hands gently; Do not shake vigorously . (Same as: Humulin N) Do not hold insulin without contacting prescriber WASTE: F/P - Black; E - Municipal Trash Bin Stable for 28 days at room temperatur e Expires in days from ____Date Miralax No Notes: Memoria 1-31 Dissolve l 14:00: in 8 oz of [place] water or juice. (Same as: Miralax) Docusate No Notes: Memoria 1-31 (Same as: l 14:00: Colace) [place] (Do Not Crush) Insulin, No Notes: Memoria Aspart, - Roll in l Human 09:15: palms of [place] 00 hands gently; Do not shake vigorously . (Same as: NovoLOG) "single patient use only" WASTE: F/P - Black; E - Municipal Trash Bin Stable for 28 days at room temperatur e. Expires in days from ____Date Dextrose 2016-0 No 25 gm, 50 Derick rodney 50% Syringe 1-31 mL, Route: l 09:15: IVP, Drug [place] 00 Form: INJ, Dosing Weight 75, kg, PRN, PRN Blood Glucose Results, Start date: 03/12/16 3:15:00 RECOVERY ROOM RN, Duration: 30 day, Stop date: 04/11/16 3:14:00 RECOVERY ROOM RN Glucagon No 1 mg, Memoria 03-12 Route: IM, l 09:15: Drug form: [place] PDR/INJ, PRN, Dosing Weight 75, kg, PRN Blood Glucose Results, Start date: 03/12/16 3:15:00 RECOVERY ROOM RN, Duration: 30 day, Stop date: 04/11/16 3:14:00 RECOVERY ROOM RN Sodium 2016- No 1 gm, 1 Memoria Chloride 03-12 tab, l 1000 MG 06:00: Route: PO, Herm suhas Oral Tablet 00 Drug form: TAB, Q6H, Dosing Weight 90.009, kg, Start date: 03/12/16 0:00:00 RECOVERY ROOM RN, Duration: 30 day, Stop date: 04/10/16 18:00:00 RECOVERY ROOM RN Nimodipine No Notes: Memor ia 03-12 (Same as l 06:00: Nimodipine oral suspension 30mg/ml) Instill dose into NG tube and then flush with 30ml of NS heparin No Notes: Memoria 03-12 porcine l 06:00: heparin Seroquel No Notes: Memoria 03-12 (Same as: l 03:52: SEROquel) Tylenol No Notes: Max Derick rodney 03-12 acetaminop l 03:52: hen = [place] 00 4000mg/day (4 gm/day). (Same as: Tylenol) Saline No Notes: Memoria Flush 0.9% 03-12 (Same as: l 03:52: BD Posiflush) POLYETHYLEN Yes PO, Daily, Memoria E GLYCOL 1-30 0 l 3350 23:13: Refill(s) [place] Levetiracet Yes 500 mg = 5 Memoria am 100 1-30 mL, PO, l MG/ML Oral 23:13: Q12H, 0 Herm suhas Solution 00 Refill(s) insulin Yes 40 unit, Memori a isophane 1-30 SUB-Q, l (NPH) 100 23:13: Q8H, 0 Jimi n units/mL 00 Refill(s) human recombinant subcutaneou s suspension heparin Yes 5,000 unit Derick rodney 30 = 1 mL, l 23:13: SUB-Q, [place] 00 Q8H, 0 Refill(s) bisacodyl Yes 10 mg = 1 Mem oria 10 mg 30 supp, CO, l rectal 23:13: ONCE, PRN Jimi n suppository 00 Constipati on | once, 0 Refill(s) insulin, No Notes: Memoria isophane 03-10 Roll in l 22:00: palms of [place] 00 hands gently; Do not shake vigorously . (Same as: Humulin N) Do not hold insulin without contacting prescriber WASTE: F/P - Black; E - Municipal Trash Bin Stable for 28 days at room temperatur e Expires in days from ____Date Keppra No Notes: Memoria 03-10 Same as: l 15:00: Keppra Nimodipine No Notes: Memor ia 03-10 (Same as l 06:00: Nimodipine oral suspension 30mg/ml) Instill dose into NG tube and then flush with 30ml of NS Sodium No 1 gm, 1 Memoria Chloride 03-10 tab, l 1000 MG 00:11: Route: PO, Herm suhas Oral Tablet 00 Drug form: TAB, Q6H, Dosing Weight 90.009, kg, Priority: NOW, Start date: 03/09/16 18:11:00 RECOVERY ROOM RN, Duration: 30 day, Stop date: 04/08/16 18:00:00 RECOVERY ROOM RN Ancef + 2017-0 No Notes: Memoria sodium 1-27 (Same As: l chloride 16:55: Ancef, [place] 0.9% INJ 00 Kefzol) 100 mL Cefazolin FOR IV SET ONLY MEDICATION WASTE Product Size: 1000 mg Product Wasted: ___ mg Sodium 2017-0 No 1,000 mL, Memori a Chloride 1-27 1,000 l 0.154 12:25: ml/hr, [place] MEQ/ML 00 Infuse Injectable Over: 1 Solution hr, Route: IV, 1,000, Drug form: INJ, ONCE, Priority: STAT, Dosing Weight 90.009 kg, Start date: 03/08/16 6:25:00 RECOVERY ROOM RN, Duration: 1 doses or times, Stop date: 03/08/16 6:25:00 RECOVERY ROOM RN Sodium 2017-0 No 250 mL, [facility] Chloride 1-26 250 ml/hr, l 0.154 20:24: Infuse [place] MEQ/ML 00 Over: 1 Injectable hr, Route: Solution IV, 250, Drug form: INJ, ONCE, Priority: STAT, Dosing Weight 90.009 kg, Start date: 03/07/16 14:24:00 RECOVERY ROOM RN, Duration: 1 doses or times, Stop date: 03/07/16 14:24:00 RECOVERY ROOM RN Sodium 2017-0 No 500 mL, [facility] Chloride 1-25 500 ml/hr, l 0.154 13:54: Infuse [place] MEQ/ML 00 Over: 1 Injectable hr, Route: Solution IV, 500, Drug form: INJ, ONCE, Priority: STAT, Dosing Weight 90.009 kg, Start date: 03/06/16 7:54:00 RECOVERY ROOM RN, Duration: 1 doses or times, Stop date: 03/06/16 7:54:00 RECOVERY ROOM RN Sodium 2017-0 No 500 mL, [facility] Chloride 1-25 500 ml/hr, l 0.154 12:30: Infuse [place] MEQ/ML 00 Over: 1 Injectable hr, Route: Solution IV, 500, Drug form: INJ, ONCE, Priority: STAT, Dosing Weight 90.009 kg, Start date: 03/06/16 6:30:00 RECOVERY ROOM RN, Duration: 1 doses or times, Stop date: 03/06/16 6:30:00 RECOVERY ROOM RN Racepinephr 2017-0 No Notes: Derick rodney ine 22.5 -24 (racepinep l MG/ML 09:00: hrine [place] Inhalant 00 *2.25% inh Solution 0.5ml SOLN) (Same as:S2) Dexamethaso No Notes: Derick rodney ne 03-05 Concentrat l 06:42: ion: [place] 00 4mg/ml Ondansetron No Notes: Derick rodney 03-04 (Same as: l 23:03: Zofran) [place] 00 MEDICATION WASTE Product Size: 4 mg Product Wasted: ___ mg Flumazenil No Notes: Memor ia 03-04 (Same as: l 23:03: Romazicon) Naloxone No Notes: [facility]oria 03-04 Same as l 23:03: Narcan [place] 00 Labetalol No 10 mg, 2 Derick rodney 03-04 mL, Route: l 23:03: IVP, Drug [place] 00 form: INJ, Q5Min, Dosing Weight 90.009, kg, PRN Elevated BP, Start date: 03/04/16 17:03:00 RECOVERY ROOM RN, Duration: 5 doses or times, Stop date: Limited # of times esmolol No 10 mg, Memoria 03-04 Route: l 23:03: IVP, [place] 00 Q5Min, Dosing Weight 90.009, kg, PRN Other -See Comment, Start date: 03/04/16 17:03:00 RECOVERY ROOM RN, Duration: 5 doses or times, Stop date: Limited # of times Morphine No Notes: [facility] 03-04 (Same l 23:03: as:MORPhin [place] 00 e Sulfate) Omnipaque No 150 ml, [facility]or ia 300 03-04 Route: l 22:39: INTRAARTER [place] 00 IAL, Dosing Weight 90.009, kg, ONCE, Start date: 03/04/16 16:39:00 RECOVERY ROOM RN, Stop date: 03/04/16 16:39:00 RECOVERY ROOM RN Ampicillin No Notes: Memor ia 03-04 (Same as: l 14:00: [place]) [place] 00 MEDICATION WASTE Product Size: 1000 mg Product Wasted: ___ mg Dulcolax No Notes: [facility] Laxative 03-04 (Same As: l 13:17: Dulcolax, [place] 00 Bisco-Lax) magnesium No Notes: Memori a citrate 03-03 (Same as: l 58.2 MG/ML 16:52: Citrate of H ermann Oral 00 Magnesia) Solution Concentrat ion: 1.745 gm / 30 mL Sodium No 500 mL, [facility] Chloride 22 500 ml/hr, l 0.154 14:37: Infuse [place] MEQ/ML 00 Over: 1 Injectable hr, Route: Solution IV, 500, Drug form: INJ, ONCE, Priority: STAT, Dosing Weight 90.009 kg, Start date: 03/03/16 8:37:00 RECOVERY ROOM RN, Duration: 1 doses or times, Stop date: 03/03/16 8:37:00 RECOVERY ROOM RN Sodium No 500 mL, [facility] Chloride 22 500 ml/hr, l 0.154 03:40: Infuse [place] MEQ/ML 00 Over: 1 Injectable hr, Route: Solution IV, 500, Drug form: INJ, ONCE, Priority: STAT, Dosing Weight 90.009 kg, Start date: 03/02/16 21:40:00 RECOVERY ROOM RN, Duration: 1 doses or times, Stop date: 03/02/16 21:40:00 RECOVERY ROOM RN Tylenol No Notes: Max Derick rodney 03-02 acetaminop l 16:25: hen = [place] 00 4000mg/day (4 gm/day). (Same as: Tylenol) Dulcolax No Notes: [facility] Laxative 03-02 (Same As: l 15:14: Dulcolax, [place] 00 Bisco-Lax) Sodium No 1,000 mL, Memori a Chloride 03-02 1,000 l 0.154 15:04: ml/hr, [place] MEQ/ML 00 Infuse Injectable Over: 1 Solution hr, Route: IV, 1,000, Drug form: INJ, ONCE, Priority: STAT, Dosing Weight 90.009 kg, Start date: 03/02/16 9:04:00 RECOVERY ROOM RN, Duration: 1 doses or times, Stop date: 03/02/16 9:04:00 RECOVERY ROOM RN Dexamethaso No Notes: Derick rodney ne 1-21 Give with l 15:00: food. [place] 00 (Same As: Decadron) Zantac No Notes: [facility] 1-21 (Same l 03:00: as:Zantac) [place] 00 Take before or with meals Racepinephr No Notes: Derick rodney ine 22.5 1-20 (racepinep l MG/ML 20:46: hrine [place] Inhalant 00 *2.25% inh Solution 0.5ml SOLN) (Same as:S2) Albuterol No Notes: SEE Me moria 0.83 MG/ML -20 RT l Inhalant 20:46: DOCUMENTAT [place] Solution 00 ION (Same as: Proventil) Dulcolax No Notes: [facility] Laxative 1-20 (Same As: l 13:49: Dulcolax, [place] 00 Bisco-Lax) Fentanyl No 1,000 [facility] 1-20 microgram, l 03:21: 20 mL, [place] 00 Rate: Titrate, Start Dose: 50 microgram/ hr, Titration: 25 microgram/ hour every 15 minutes, Goal(s): RASS 0 to -1, Max Dose: 300 microgram/ hr, Route: IV, Dosing Weight 90.009 kg, Total Volume: 20, Start date: 02/29/16 21:21:00 C... Dexamethaso No Notes: Derick rodney ne 1-20 Give with l 03:00: food. [place] 00 (Same As: Decadron) insulin, No Notes: [facility] isophane 1-19 Roll in l 22:00: palms of [place] 00 hands gently; Do not shake vigorously . (Same as: Humulin N) Do not hold insulin without contacting prescriber WASTE: F/P - Black; E - Municipal Trash Bin Stable for 28 days at room temperatur e Expires in days from ____Date sodium No 1,000 mL, Memori a chloride 1-19 Rate: 100 l 0.9% 1000 16:01: ml/hr, Jimi n ml INJ 00 Infuse 1,000 mL over: 10 hr, Route: IV, Dosing Weight 90.009 kg, Total Volume: 1,000, Start date: 02/29/16 10:01:00 RECOVERY ROOM RN, Stop date: 03/30/16 10:00:00 RECOVERY ROOM RN magnesium No Notes: Memori a citrate 1-19 (Same as: l 58.2 MG/ML 15:24: Citrate of H ermann Oral 00 Magnesia) Solution Concentrat ion: 1.745 gm / 30 mL Streptococc No Notes: Derick rodney us 1-19 (Same as: l pneumoniae 15:00: Prevnar Herm suhas serotype 1 00 13) capsular antigen diphtheria [id number] protein conjugate vaccine / Streptococc us pneumoniae serotype 14 capsular antigen diphtheria [id number] protein conjugate vaccine / Streptococc us pneumoniae serotype 18C capsular antigen d Miralax No Notes: [facility] 1-19 Dissolve l 15:00: in 8 oz of [place] 00 water or juice. (Same as: Miralax) Tylenol No Notes: Max Derick rodney 1-19 acetaminop l 11:47: hen = [place] 00 4000mg/day (4 gm/day). (Same as: Tylenol) Sodium No 500 mL, [facility] Chloride 1-19 500 ml/hr, l 0.154 05:36: Infuse [place] MEQ/ML 00 Over: 1 Injectable hr, Route: Solution IV, 500, Drug form: INJ, ONCE, Priority: STAT, Dosing Weight 90.009 kg, Start date: 02/28/16 23:36:00 RECOVERY ROOM RN, Duration: 1 doses or times, Stop date: 02/28/16 23:36:00 RECOVERY ROOM RN Sodium No 1,000 mL, Mem[facility] a Chloride 1-19 1,000 l 0.154 04:21: ml/hr, [place] MEQ/ML 00 Infuse Injectable Over: 1 Solution hr, Route: IV, 1,000, Drug form: INJ, ONCE, Priority: STAT, Dosing Weight 90.009 kg, Start date: 02/28/16 22:21:00 RECOVERY ROOM RN, Duration: 1 doses or times, Stop date: 02/28/16 22:21:00 RECOVERY ROOM RN Insulin No 60 Memoria regular 1-18 units) l 16:21: WASTE: F/P [place] 00 - Black; E - Municipal Trash Bin Stable for 28 days at room temperatur e Expires in days from ____Date Dextrose No 12.5 gm, Memor ia 50% Syringe 1-18 25 mL, l 16:21: Route: [place] 00 IVP, Drug Form: INJ, Dosing Weight 90.009, kg, PRN, PRN Blood Glucose Results, Start date: 02/28/16 10:21:00 RECOVERY ROOM RN, Duration: 30 day, Stop date: 03/29/16 10:20:00 RECOVERY ROOM RN Glucagon No 1 mg, [facility] 1-18 Route: IM, l 16:21: Drug form: [place] 00 PDR/INJ, PRN, Dosing Weight 90.009, kg, PRN Blood Glucose Results, Start date: 02/28/16 10:21:00 RECOVERY ROOM RN, Duration: 30 day, Stop date: 03/29/16 10:20:00 RECOVERY ROOM RN insulin, No Notes: [facility] isophane 1-18 Roll in l 15:00: palms of [place] 00 hands gently; Do not shake vigorously . (Same as: Humulin N) Do not hold insulin without contacting prescriber WASTE: F/P - Black; E - Municipal Trash Bin Stable for 28 days at room temperatur e Expires in days from ____Date Regular 0 No 60 [facility] Insulin, 1-18 units) l Human 100 12:56: WASTE: F/P He rmann UNT/ML 00 - Black; E Injectable - Solution Municipal Trash Bin Stable for 28 days at room temperatur e Expires in days from ____Date Dextrose No 6.25 gm, Mem[facility] ia 50% Syringe 1-18 12.5 mL, l 12:56: Route: [place] 00 IVP, Drug Form: INJ, Dosing Weight 90.009, kg, PRN, PRN Abnormal Lab Result, Start date: 02/28/16 6:56:00 RECOVERY ROOM RN, Duration: 30 day, Stop date: 03/29/16 6:55:00 RECOVERY ROOM RN heparin No Notes: [facility] 1-18 porcine l 06:01: heparin Famotidine No Notes: Memor ia 18 (Same as: l 03:00: Pepcid) Levetiracet No Notes: Derick rodney am 500 MG 02-27 (Same l Oral Tablet 03:00: as:Keppra) [place] [Keppra] Dexamethaso No Notes: Derick rodney ne 02-26 Give with l 18:00: food. [place] 00 (Same As: Decadron) chlorhexidi No Notes: Derick rodney ne 02-26 (Same As: l gluconate 18:00: Peridex) Herm suhas 1.2 MG/ML 00 Mouthwash Sodium No 1,000 mL, [facility] a Chloride 02-26 1,000 l 0.154 08:42: ml/hr, [place] MEQ/ML 00 Infuse Injectable Over: 1 Solution hr, Route: IV, 1,000, Drug form: INJ, ONCE, Priority: STAT, Dosing Weight 90.009 kg, Start date: 02/27/16 2:42:00 RECOVERY ROOM RN, Duration: 1 doses or times, Stop date: 02/27/16 2:42:00 RECOVERY ROOM RN Cefazolin No Notes: Memori a 02-26 (Same As: l 07:00: Ancef, [place] Kefzol) Cefazolin FOR IV SET ONLY MEDICATION WASTE Product Size: 1000 mg Product Wasted: _0_ mg sodium No Notes: Memoria chloride 3% 02-26 "Administe l INJ 500 mL 06:34: r by [place] 00 central venous catheter or a peripheral ly inserted central catheter (PICC) line. 3% Sodium Chloride may be infused via peripheral administra tion into large vein (antecubit al) only in the case of emergency for short term use until a central line can be inserted" (Same as: Hypertonic Saline 3%) concentra tion = 0.513 mEq/mL Sodium No 120 mEq, [facility] Chloride 4 17 30 mL, 60 l MEQ/ML 04:47: ml/hr, [place] Injectable 00 Infuse Solution Over: 30 minutes, Route: IV, 30, Drug form: INJ, ONCE, Dosing Weight 90.009 kg, Start date: 02/26/16 22:47:00 RECOVERY ROOM RN, Duration: 1 doses or times, Stop date: 02/26/16 22:47:00 RECOVERY ROOM RN Mannitol No Notes: [facility]oria 02-26 (Same as: l 04:29: Osmitrol) [place] 00 Infuse through 5 micron or smaller filter WASTE: F/P - Sink; E - Municipal Trash Bin chlorhexidi No Notes: Derick rodney ne 02-26 (Same As: l gluconate 03:00: Peridex) Herm suhas 1.2 MG/ML 00 Mouthwash Calcium No Notes: [facility] Carbonate 02-26 (Same As: l 500 MG 02:51: Tums) [place] Chewable 00 Calcium Tablet Carbonate 500 mg = 200 mg elemental calcium Dose = mg calcium carbonate ( mg elemental calcium) Calcium No Notes: [facility] Gluconate 02-26 WASTE: F/P l 02:51: - Sink; E [place] 00 - Municipal Trash Bin Magnesium No Notes: Memori a Sulfate 02-26 WASTE: F/P l 02:51: - Sink; E [place] - Municipal Trash Bin potassium No Notes: Memori a phosphate-s 02-26 (Same as: l odium 02:51: Phos-NaK) [place] phosphate 00 Each 1.5 250 mg-280 gm pkt has mg-160 mg 250mg oral powder phosphorou for s. Mix reconstitut w/2.5oz ion water and stir. Magnesium No Notes: Memori a Oxide 02-26 (Same as: l 02:51: Mag-Ox [place] 00 400) Magnesium oxide 164au=364p g elemental magnesium Dose=____m g magnesium oxide (___mg elemental magnesium) potassium No Notes: Memori a phosphate + 02-26 (Same as: l sodium 02:51: K [place] chloride 00 Phosphate. 0.9% INJ ) 1 mMol 250 mL phoshate has 1.47 mEq potassium Infuse over 4 hours sodium No 30 mmol, Memoria phosphate + 02-26 10 mL, l sodium 02:51: Route: [place] chloride 00 IVPB, PRN, 0.9% INJ Dosing 250 mL Weight 90.009, kg, PRN Abnormal Lab Result, Start date: 02/26/16 20:51:00 RECOVERY ROOM RN, Duration: 30 day, Stop date: 03/27/16 20:50:00 RECOVERY ROOM RN, FOR ICU USE ONLY potassium No Notes: Memori a chloride 02-26 (Same as: l 02:51: Potassium Chloride) Dextrose No 12.5 gm, Memor ia 50% Syringe 02-26 25 mL, l 02:50: Route: [place] 00 IVP, Drug Form: INJ, Dosing Weight 90.009, kg, PRN, PRN Blood Glucose Results, Start date: 02/26/16 20:50:00 RECOVERY ROOM RN, Duration: 30 day, Stop date: 03/27/16 20:49:00 RECOVERY ROOM RN Insulin No Notes: [facility]oria regular 100 02-26 (Same as: l unit + 02:50: Humulin R Jimi n sodium 00 and chloride NovoLIN R) 0.9% INJ 99 WASTE: mL F/P - Black; E - LIFEmee Trash Bin (Do not shake) Fentanyl No 1,000 [facility]oria -17 microgram, l 02:48: 20 mL, [place] 00 Rate: Titrate, Start Dose: 50 microgram/ hr, Titration: 25 microgram/ hour every 15 minutes, Goal(s): RASS 0 to -1, Max Dose: 300 microgram/ hr, Route: IV, Dosing Weight 90.009 kg, Total Volume: 20, Start date: 02/26/16 20:48:00 C... Dilaudid No Notes: [facility] 02-26 Same as l 00:52: Dilaudid [place] Acetaminoph No Notes: Do M emoria en 325 MG / 02-26 not exceed l Hydrocodone 00:52: 4gm/day of [place] Bitartrate 00 acetaminop 10 MG Oral hen. Tablet (Same as: [[place] 10/325] 325/10) Ancef No 1 gm, Memoria 16 Route: l 23:15: IVPB, [place] 00 ONCE, Dosing Weight 90.009, kg, Start date: 02/26/16 17:15:00 RECOVERY ROOM RN, Stop date: 02/26/16 17:15:00 RECOVERY ROOM RN Ancef No 2 gm, [facility] 1-16 Route: IV, l 20:15: ONCE, [place] 00 Dosing Weight 90.909, kg, Start date: 02/26/16 14:15:00 RECOVERY ROOM RN, Duration: 1 doses or times, Stop date: 02/26/16 14:15:00 RECOVERY ROOM RN, Surgical Prophylaxi s Only; For patients < 120 kg Propofol 10 No 1,000 mg, M emoria MG/ML -16 100 mL, l Injectable 17:59: Rate: Jimi n Suspension 00 Titrate, Start Dose: 5 microgram/ kg/min, Titration: 5 microgram/ kg/min every 15 min, Goal(s): MAP 70-100, Max Dose: 50 microgram/ kg/min, Route: IV, Dosing Weight 90.909 kg, Total Volume: 100, Start date: 02/26/16 11:59:00 RECOVERY ROOM RN,... Fentanyl No Notes: [facility]oria 1-16 (Same as: l 17:58: Sublimaze) Preservat cristina free. chlorhexidi No Notes: Derick rodney ne -16 (Same As: l gluconate 15:39: Peridex) Herm suhas 1.2 MG/ML 00 Mouthwash Ancef + No Notes: [facility]oria sodium -16 (Same As: l chloride 15:38: Ancef, [place] 0.9% INJ 00 Kefzol) 100 mL MEDICATION WASTE Product Size: 1000 mg Product Wasted: ___ mg Docusate No Notes: [facility]oria 1-16 (Same as: l 15:00: Colace) Famotidine No Notes: Memor ia -16 (Same as: l 15:00: Pepcid) sennosides, No Notes: Derick rodney LONG-TERM -16 (Same as: l 15:00: Senokot) Levetiracet No Notes: Derick rodney am -16 Same as l 15:00: Keppra [place] 00 Mix with 100 mL NS, LR or D5W MEDICATION WASTE Product Size: 500 mg Product Wasted: ___ mg Omnipaque 2017-0 No 150 ml, Memor ia 350 1-16 Route: l 14:56: INTRAARTER [place] 00 IAL, Dosing Weight 90.909, kg, ONCE, Start date: 02/26/16 8:56:00 RECOVERY ROOM RN, Stop date: 02/26/16 8:56:00 RECOVERY ROOM RN Nimodipine 2017-0 No Notes: Memor ia -16 (Same as l 12:00: Nimodipine oral suspension 30mg/ml) Instill dose into NG tube and then flush with 30ml of NS Dexamethaso 2016-0 No Notes: Derick rodney ne 02-25 Concentrat l 12:00: ion: [place] 00 4mg/ml Keppra 2016-0 No 500 mg, Memoria 16 Route: IV, l 11:39: ONCE, Dosing Weight 90.909, kg, Start date: 02/26/16 5:39:00 RECOVERY ROOM RN, Stop date: 02/26/16 5:39:00 RECOVERY ROOM RN Ondansetron 2017-0 No 4 mg, Memor ia 16 Route: l 11:31: IVP, Drug form: INJ, ONCE, Dosing Weight 90.909, kg, Priority: STAT, Start date: 02/26/16 5:31:00 RECOVERY ROOM RN, Stop date: 02/26/16 5:31:00 RECOVERY ROOM RN Morphine 2017-0 No 4 mg, Memoria 16 Route: l 11:31: IVP, ONCE, Dosing Weight 90.909, kg, Priority: STAT, Start date: 02/26/16 5:31:00 RECOVERY ROOM RN, Stop date: 02/26/16 5:31:00 RECOVERY ROOM RN Dextrose 2017-0 No 6.25 gm, Memor ia 50% Syringe 16 12.5 mL, l 10:09: Route: IVP, Drug Form: INJ, Dosing Weight 90.909, kg, PRN, PRN Abnormal Lab Result, Start date: 02/26/16 4:09:00 RECOVERY ROOM RN, Duration: 30 day, Stop date: 03/27/16 4:08:00 RECOVERY ROOM RN Regular 2017-0 No 60 Memoria Insulin, 1-16 units) l Human 100 10:09: WASTE: F/P He rmann UNT/ML 00 - Black; E Injectable - Solution Municipal Trash Bin Stable for 28 days at room temperatur e Expires in days from ____Date Sodium 2017-0 No 1,000 mL, Memori a Chloride 16 Rate: 75 l 0.154 10:09: ml/hr, [place] MEQ/ML 00 Infuse Injectable over: 13.3 Solution hr, Route: IV, Dosing Weight 90.909 kg, Total Volume: 1,000, Start date: 02/26/16 4:09:00 RECOVERY ROOM RN, Duration: 30 day, Stop date: 03/27/16 4:08:00 RECOVERY ROOM RN iodixanol No 100 mL, Memor ia 16 Route: l 09:43: IVP, Drug [place] 00 Form: SOLN, Dosing Weight 90.909, kg, ONCALL, STAT, Start date: 02/26/16 3:43:00 RECOVERY ROOM RN, Duration: 1 doses or times, Dose = 2.2ml/kg, Max dose = 100ml -- "To be infused by Radiology Staff ONLY" Saline No Notes: [facility]oria Flush 0.9% 16 Same as: l 08:46: BD [place] 00 Posiflush Sterile Vital Signs Vital Name Observation Time Observation Value Comments Source Temperature Oral (F) 2017-08-26 22:04:00 98.0 F [facility] [place] Respitory Rate 2017-08-26 22:04:00 Mem[facility] al [place] Systolic (mm Hg) 2017-08-26 22:04:00 Derick rial [place] Diastolic (mm Hg) 2017-08-26 22:04:00 Mem orial [place] Heart Rate 2017-08-26 22:04:00 [facility] [place] Heart Rate 2017-08-26 17:41:00 [facility] [place] Respitory Rate 2017-08-26 17:41:00 Memori al [place] Systolic (mm Hg) 2017-08-26 17:41:00 Derick rial [place] Diastolic (mm Hg) 2017-08-26 17:41:00 Mem orial [place] Temperature Oral (F) 2017-08-26 17:41:00 98.8 F [facility] [place] Temperature Oral (F) 2017-08-26 15:05:00 97.5 F [facility] [place] Heart Rate 2017-08-26 15:05:00 [facility] [place] Systolic (mm Hg) 2017-08-26 15:05:00 Derick rial [place] Diastolic (mm Hg) 2017-08-26 15:05:00 Mem orial [place] Respitory Rate 2017-08-26 15:05:00 [facility] [place] Weight 2017-08-25 14:36:00 [facility] [place] BMI Calculated 2017-08-25 14:36:00 [facility] [place] Height 2017-08-25 14:36:00 134.62 cm [facility] [place] BMI Calculated 2017-08-24 22:40:00 [facility] [place] Height 2017-08-24 22:40:00 162.56 cm [facility] [place] Weight 2017-08-24 22:40:00 [facility] [place] Weight 2017-08-24 22:24:00 [facility] [place] BMI Calculated 2017-08-24 22:24:00 [facility] [place] Height 2017-08-24 22:24:00 162.56 cm [facility] [place] Weight 2016-06-20 14:40:00 [facility] [place] Respitory Rate 2016-06-20 13:35:00 Memori al [place] Systolic (mm Hg) 2016-06-20 13:00:00 Derick rial [place] Diastolic (mm Hg) 2016-06-20 13:00:00 Mem orial [place] Respitory Rate 2016-06-20 13:00:00 Memori al [place] Systolic (mm Hg) 2016-06-20 12:00:00 Derick rial [place] Diastolic (mm Hg) 2016-06-20 12:00:00 Mem orial [place] Respitory Rate 2016-06-20 12:00:00 Memori al [place] Systolic (mm Hg) 2016-06-20 11:00:00 Derick rial [place] Diastolic (mm Hg) 2016-06-20 11:00:00 Mem [facility] [place] BMI Calculated 2016-06-19 11:22:00 [facility] [place] Weight 2016-06-19 11:22:00 [facility] [place] Height 2016-06-19 11:22:00 162.56 cm [facility] [place] Heart Rate 2016-06-19 11:22:00 [facility] [place] Height 2016-06-18 16:25:00 162.56 cm [facility] [place] BMI Calculated 2016-06-18 16:25:00 [facility] [place] Weight 2016-06-18 16:25:00 [facility] [place] Temperature Oral (F) 2016-03-29 13:26:00 97.9 F [facility] [place] Systolic (mm Hg) 2016-03-29 13:26:00 Derick rial [place] Diastolic (mm Hg) 2016-03-29 13:26:00 Mem orial [place] Heart Rate 2016-03-29 13:26:00 [facility] [place] Temperature Oral (F) 2016-03-29 05:10:00 98.5 F [facility] [place] Heart Rate 2016-03-29 05:10:00 [facility] [place] Systolic (mm Hg) 2016-03-29 05:10:00 Derick rial [place] Diastolic (mm Hg) 2016-03-29 05:10:00 Mem orial [place] Respitory Rate 2016-03-29 05:10:00 [facility] al [place] Respitory Rate 2016-03-28 20:00:00 [facility] al [place] Systolic (mm Hg) 2016-03-28 20:00:00 Derick rial [place] Diastolic (mm Hg) 2016-03-28 20:00:00 Mem orial [place] Temperature Oral (F) 2016-03-28 20:00:00 98.3 F [facility] [place] Heart Rate 2016-03-28 20:00:00 [facility] [place] Respitory Rate 2016-03-28 12:35:00 [facility] al [place] Weight 2016-03-12 04:00:00 [facility] [place] BMI Calculated 2016-03-12 04:00:00 [facility] [place] Height 2016-03-12 04:00:00 162.56 cm [facility] [place] Weight 2016-03-12 03:52:00 [facility] [place] BMI Calculated 2016-03-12 03:52:00 [facility] al [place] Height 2016-03-12 03:52:00 162.56 cm [facility] [place] Systolic (mm Hg) 2016-03-12 02:39:00 Derick rial [place] Diastolic (mm Hg) 2016-03-12 02:39:00 Mem orial [place] Respitory Rate 2016-03-12 02:39:00 [facility] al [place] Heart Rate 2016-03-12 02:39:00 [facility] [place] Temperature Oral (F) 2016-03-12 02:39:00 100.1 F [facility] [place] Systolic (mm Hg) 2016-03-12 02:00:00 Derick rial [place] Diastolic (mm Hg) 2016-03-12 02:00:00 Mem orial [place] Systolic (mm Hg) 2016-03-11 22:55:00 Derick rial [place] Diastolic (mm Hg) 2016-03-11 22:55:00 Mem orial [place] Heart Rate 2016-03-11 22:55:00 [facility] [place] Respitory Rate 2016-03-11 22:55:00 Mem[facility] al [place] Temperature Oral (F) 2016-03-11 22:55:00 98.3 F [facility] [place] Temperature Oral (F) 2016-03-11 18:04:00 98.0 F [facility] [place] Respitory Rate 2016-03-11 18:04:00 [facility] al [place] Heart Rate 2016-03-11 18:04:00 [facility] [place] Height 2016-03-01 20:30:00 160.02 cm [facility] [place] Height 2016-03-01 16:58:00 160.02 cm [facility] [place] Height 2016-03-01 13:44:00 160.02 cm [facility] [place] Weight 2016-02-26 22:08:00 [facility] [place] BMI Calculated 2016-02-26 22:08:00 [facility] [place] Weight 2016-02-26 08:37:00 [facility] [place] BMI Calculated 2016-02-26 08:37:00 [facility] al [place] Procedures Procedure Date / Time Performing Clinician Source Performed Selective catheter 2016-06-19 15:02:17 [facility] [place] placement, common carotid or innominate artery, unilateral, any approach, with angiography of the ipsilateral extracranial carotid circulation and all associated radiological supervision and interpretation, includes angiography of the c Selective catheter 2016-06-19 15:02:17 [facility] [place] placement, internal carotid artery, unilateral, with angiography of the ipsilateral intracranial carotid circulation and all associated radiological supervision and interpretation, includes angiography of the extracranial carotid and ce Selective catheter 2016-03-04 21:55:00 [facility] [place] placement, vertebral artery, unilateral, with angiography of the ipsilateral vertebral circulation and all associated radiological supervision and interpretation, includes angiography of the cervicocerebral arch, when performed Craniotomy and clipping of Memor ial [place] intracranial aneurysm Repair of aneurysm by [facility] Encounters Start End Encounter Admission Attending Care Care Encounter Source Date/Time Date/Time Type Type Clinicians Facility Department ID 2019-04-04 2019-04-05 Emergency Bryan Milligan [facility] [id number] 05:56:22 14:32:00 Teena Corby [place] [id number] [place] [id number] Roy [id number] 2019-04-04 2019-04-04 Orders Doctor MARY ANN [id number] 00:00:00 00:00:00 Only Unassigned, FOREIGN [id number] [place] [facility] [id number] 2017-08-24 2017-08-26 Outpatient Dirk [facility] [id number] 14:08:00 18:16:00 Veronika 68 Violet 2016-06-19 2016-06-20 Outpatient Dionne Ji [facility] [id number] 05:36:00 12:22:00 Marco 01 2016-03-11 2016-03-29 Outpatient FrancoisAriananewton [facility] [id number] 21:51:00 12:50:00 os, Boom 00 José Manuel 2016-02-26 2016-03-11 Outpatient Mae [facility] [id number] 02:37:00 21:43:00 Rayray Karimi 67 Results Test Description Test Time Test Comments Results Result [facility] e Comments SCR MAMM - SCR MAMM BILATERAL BILATERAL DAVE 6 DAVE CAD CAD DIGITAL 15:55:39 DIGITALBILATERAL DIGITAL SCREENING MAMMOGRAM 3D/2D WITH CAD: 12/10/2017CLINICAL: Asymptomatic. Digital breast tomosynthesis was performed in addition to routine CC and MLO views. Current mammographic images were evaluated by either a [employer] M-Vu or a [employer] ImageChecker CAD (computer aided detection system). No [...] mammography in one year. Deshaun jacinto/jose:12/16/2017 15:55:39 District Manager Primary Care Sales: Nneka Kahn MM, [facility] Mammographyletter sent: BIRADS 1-2 Normal Mammogram BI-RADS: 2 Benign CHEM PANEL 2017-08-10 5.0 [facility] [place] 06:55:00 CHEM PANEL 2017-08-10 2.1 [facility] 7 [place] 06:55:00 CHEM PANEL 2017-08-10 76 [facility] [place] 06:55:00 CHEM PANEL 2017-08-10 0.81 [facility] [place] 06:55:00 CHEM PANEL 2017-08-10 132 [facility] [place] 06:55:00 CHEM PANEL 2017-08-10 140 [facility] [place] 06:55:00 CHEM PANEL 2017-08-10 4.6 [facility] 7 [place] 06:55:00 CHEM PANEL 2017-08-10 19 [facility] [place] 06:55:00 CHEM PANEL 2017-08-10 25 [facility] [place] 06:55:00 CHEM PANEL 2017-08-10 9.2 [facility] [place] 06:55:00 CHEM PANEL 2017-08-10 104 [facility] [place] 06:55:00 CHEM PANEL 2017-08-10 15.6 [facility] [place] 06:55:00 HEMATOLOGY 2017-08-10 7.2 [facility] 7 [place] 06:55:00 HEMATOLOGY 2017-08-10 51.4 [facility] 7 [place] 06:55:00 HEMATOLOGY 2017-08-10 38.6 [facility] 7 [place] 06:55:00 HEMATOLOGY 2017-08-10 3.2 [facility] [place] 06:55:00 HEMATOLOGY 2017-08-10 1.9 [facility] 7 [place] 06:55:00 HEMATOLOGY 2017-08-10 0.9 [facility] 7 [place] 06:55:00 HEMATOLOGY 2017-08-10 4.2 [facility] 7 [place] 06:55:00 HEMATOLOGY 2017-08-10 0.2 [facility] [place] 06:55:00 HEMATOLOGY 2017-08-10 0.1 [facility] 7 [place] 06:55:00 HEMATOLOGY 2017-08-10 0.6 [facility] 7 [place] 06:55:00 HEMATOLOGY 2017-08-10 8.2 [facility] [place] 06:55:00 HEMATOLOGY 2017-08-10 38.7 [facility] [place] 06:55:00 HEMATOLOGY 2017-08-10 4.18 [facility] [place] 06:55:00 HEMATOLOGY 2017-08-10 13.1 [facility] [place] 06:55:00 HEMATOLOGY 2017-08-10 9.1 [facility] 7 [place] 06:55:00 HEMATOLOGY 2017-08-10 13.1 [facility] 7 [place] 06:55:00 HEMATOLOGY 2017-08-10 230 [facility] [place] 06:55:00 HEMATOLOGY 2017-08-26 06:55:00 Test Item Value Reference Range Interpretation Comme nts MCH (test code = MCH) 31.4 pg 27.0-31.0 [facility] GtuyotcRVMTXIKGAR3582-42-87 06:55:0033.9[facility] HermannHEMATOLOGY 2017-08-26 06:55:0092.4[facility] HermannPARATHYROID UCPXVXH2042-42-56 06:55:00 1.11[facility] HermannPARATHYROID AJEUIMJ3202-98-77 06:55:001.11[facility] [place] QOUDOK6357-29-90 20:04:00 Test Item Value Reference Range Interpretation Comments VLDL (test code = VLDL) 22 1 [facility] TwtbmwnUUJMUG9767-87-95 20:04:0067[facility] HvrixveHVBDCJ9384-95-42 20:04:0030[facility] NtunockUCQXQW0548-65-44 20:04:94737Tdeczqfo HermannLIPIDS 2017-08-24 20:04:71862Odrpwimj CkbpryoTWNOGB3954-21-38 20:04:00 Test Item Value Reference Range Interpretation Comments CHD Risk (test code = CHD Risk) 3.97 1 3.90-5.80 [facility]annSPECIAL ICXOLZBNI9320-89-97 20:04:008.1[facility]annUR[facility] AND WJQPZ8733-12-25 20:04:00None Seen (08/24/17 3:04 PM)[facility] LQKGU3845-85-56 20:04:00None Seen (08/24/17 3:04 PM)[facility] UCQDJ8020-99-78 20:04:000.2[facility] WQNDX2443-24-25 20:04:00 Negative (08/24/17 3:04 PM)[facility] FVVFE2178-71-55 20:04:00 Negative (08/24/17 3:04 PM)[facility] LQTUQ3475-63-52 20:04:00 Negative (08/24/17 3:04 PM)[facility] HSZQW9488-08-59 20:04:00 Negative *NA*(08/24/17 3:04 PM)[facility] OYKUG6553-88-04 20:04:00 Test Item Value Reference Range Interpretation Comments UA pH (test code = UA pH) 6.0 1 5.0-8.0 [facility] KVXIT0827-52-52 20:04:00 Test Item Value Reference Range Interpretation Comments UA Spec Grav (test code = UA Spec 1.010 1 Grav) [facility] FGOGF2738-91-84 20:04:00Clear (08/24/17 3:04 PM) [facility] OXWYD6737-20-46 20:04:00Yellow *NA*(08/24/17 3:04 PM) [facility] HermannCARDIAC OHISISJ5347-48-80 19:18:26<0.02[facility] [place] CARDIAC OZGMFTC2666-02-34 19:18:2688[facility] KewyzkoWERBRIZFQPRD5915-84-13 19:18:2615.5[facility] AgdnylnXUZIVTPAWLGL6118-86-10 19:18:2623[facility] [place] VMDNSIKYQPSU3473-46-43 19:18:269.0[facility] FxsbgwkXQNDVHHSRMHV5760-59-03 19:18:84201Uddffpvb VdrvrydNBZCDDODVNJB9093-68-67 19:18:2677[facility] [place] AAANHVIXCLZM6210-97-78 19:18:264.5[facility] EmrrqhzFAIHTJDFVJAV4398-40-43 19:18:47806Wrurtuun YrlbwthGNXGBXTMAQVR5948-42-87 19:18:2615[facility] [place] TIVZENJOJCGW8311-35-19 19:18:260.80[facility] XwdmetlWZQTFPZECCFD8499-29-85 19:18:2692[facility] AsbwrnuASSANYEZGL2475-98-61 19:18:260.7[facility] [place] XJWYDAEBMD9460-11-70 19:18:260.7[facility] EielltrVBSNQIZZFQ0193-24-99 19:18:267.1 [facility] QtpvdlgZXQCCUPDVS5277-65-12 19:18:260.1[facility] HermannHEMATOLOGY 2017-08-24 19:18:260.1[facility] IatvbddNVANDIDXIQ3505-50-01 19:18:264.4[facility] PsukcyxKIVOTNJBAQ9183-52-95 19:18:2657.1[facility] UuwdrwvULUJPLROPO4137-45-76 19:18:2635.6[facility] NjqqtfxJDWXDWBOFW4219-64-27 19:18:265.6[facility] [place] MOJORTMCPR7550-03-39 19:18:261.0[facility] WjpeowrDSUKUGOHOZ6179-56-32 19:18:26 Test Item Value Reference Range Interpretation Comments PT (test code = PT) 13.2 s 12.0-14.7 [facility] RcybdxoTWVGMJUPTE3116-49-62 19:18:26 Test Item Value Reference Range Interpretation Comments INR (test code = INR) 1.00 1 0.85-1.17 [facility] XvymkwmMCXAPOWKUJ9482-81-81 19:18:268.0[facility] HermannHEMATOLOGY 2017-08-24 19:18:2633.4[facility] KyzipvxPTHMVVTYVA0261-50-75 19:18:2613.3[facility] QnqjynkQRNZQVVOKV9901-51-68 19:18:26 Test Item Value Reference Range Interpretation Comments MCH (test code = MCH) 31.0 pg 27.0-31.0 [facility] JwoewlkFICFZIDEBI6210-42-05 19:18:48131Hnlcqvef HermannHEMATOLOGY 2017-08-24 19:18:2640.1[facility] GscjwvxXIUEJLHQDY5919-19-44 19:18:2613.4[facility] QbszmiyLAQGKYZMHY7818-51-25 19:18:2692.8[facility] LvbxljjQHEAHXOXKQ7984-91-18 19:18:2612.4[facility] YvknkxgLHFAYEMKOS1645-61-72 19:18:264.32[facility] [place] YLGPGFMHBF6970-78-60 19:18:26 Test Item Value Reference Range Interpretation Comments PTT (test code = PTT) 25.6 s 22.9-35.8 [facility]annCHEM DWWSD7754-97-56 04:36:0089[facility] HermannCHEM PANEL 2016-06-20 04:36:0015.2[facility] HermannCHEM CVOOV5940-85-48 04:36:008.7[facility] HermannCHEM WUXZI9320-89-87 04:36:000.71[facility]annCHEM RKATL8493-81-08 04:36:004.2[facility] HermannCHEM JZAHP5812-68-12 04:36:69634Xyzdcfns HermannCHEM YKHYN6031-87-33 04:36:0025[facility] HermannCHEM VBTKM6400-04-87 04:36:56438 [facility]annCHEM XDNOE4439-81-64 04:36:64439Vyuxkqzo HermannCHEM PANEL 2016-06-20 04:36:0013[facility] HermannCHEM LBYEU8225-09-68 04:36:002.1[facility] HermannCHEM YLTMU8689-75-00 04:36:003.3[facility] HnomgiuPKBWBCNNIZ4349-04-77 04:36:004.34[facility] HyxshsuBQEJLXVQVZ3236-14-80 04:36:009.5[facility] [place] DTWKTCJEIU0566-99-74 04:36:0013.4[facility] IxhsturNBJLLATNTE3133-28-22 04:36:00 33.8[facility] CnhiapfMUZWZLLOQE1800-36-15 04:36:00 Test Item Value Reference Range Interpretation Comments MCH (test code = MCH) 30.8 pg 27.0-31.0 [facility] YeedoayVWYJSAUBDE6801-66-89 04:36:0013.2[facility] HermannHEMATOLOGY 2016-06-20 04:36:0091.0[facility] ZxsljuoYYOMURFZOX2014-02-85 04:36:0039.5[facility] QssjlewTWGCOXBHTR4889-31-86 04:36:62283Lhbqqsbh WcwdzeqXUFDQLBLXR4115-99-46 04:36:008.0[facility] DweuymfJYUBOGXZKL6418-07-17 04:36:0077.7[facility] [place] GGOVYHFSAF3353-55-93 04:36:0019.0[facility] UoqhrrdGFEECSAQOZ5199-30-11 04:36:00 0.3[facility] LgtwpqyFQCNLICSYH8786-22-71 04:36:001.8[facility] HermannHEMATOLOGY 2016-06-20 04:36:003.1[facility] EbbtkmnYIAHMBXSBN3002-89-24 04:36:000.2[facility] OzriymiCWUXGDTEGW6070-75-05 04:36:007.4[facility] HermannPARATHYROID PROFILE 2016-06-20 04:36:001.10[facility] HermannPARATHYROID SDQWWZO2375-74-76 04:36:00 1.10[facility] HermannBACTERIAL - SMDCJMIU8466-69-80 20:52:00Negative (06/19/16 3:52 PM)[facility] QnziszsGPJTBMVAXB7554-72-78 12:54:00 Test Item Value Reference Range Interpretation Comments PTT (test code = PTT) 27.8 s 22.9-35.8 [facility] KthsbozKWSTFIRAHT9717-50-10 12:54:00 Test Item Value Reference Range Interpretation Comments PT (test code = PT) 14.0 s 12.0-14.7 [facility] HtjkrgnFWZLMZRYBZ0351-66-15 12:54:001.06[facility] HermannHEMATOLOGY 2016-06-19 12:54:82200Mmreilup PgghctpLQBZQJORVQ5877-09-99 12:54:39048Ihhbccti TphsgvvGMUIBBNQDBBN1765-31-26 11:51:004.2[facility] FcytagpUTDXAWIWFISX0791-40-80 11:51:000.61[facility] FdavmrsQOSRKDXYAEBF5854-82-13 11:51:44076Iytijehl [place] OIIVJCUTRXJU0061-19-26 11:51:0095[facility] XdptdycPWYQNBKEZTWM7898-62-97 11:51:00 103[facility] TsussdhQUTQWVJHNTOX0345-90-33 11:51:0026[facility] HermannELECTROLYTES 2016-06-19 11:51:009.2[facility] ExljcijUNDYHMPDMVKW6697-11-15 11:51:0014.2 [facility] XltafbyOOZQIMOQGWBG1448-29-41 11:51:0020[facility] HermannELECTROLYTES 2016-06-19 11:51:62587Cfiutuif MrawybrGQHWYGHNTI8148-61-31 11:51:62297Xpioakgh UczcihnATVXWYBABB7788-04-22 11:51:0012.3[facility] UypblmdFYPGGWWYMA0208-08-45 11:51:0033.1[facility] SejsgkoBHPFFKYORP8848-91-81 11:51:007.9[facility] [place] KBWQIFRKCE4778-82-18 11:51:0040.4[facility] IknezfdJGTOZLXQIN8975-60-24 11:51:00 13.4[facility] VcaegaqBKDEMZHVYN1326-18-56 11:51:0010.0[facility] HermannHEMATOLOGY 2016-06-19 11:51:004.43[facility] NgftvxoQKHCDAXAYP0208-90-18 11:51:0091.1[facility] WxwugpvRITRIFWDMJ6233-34-75 11:51:00 Test Item Value Reference Range Interpretation Comments MCH (test code = MCH) 30.2 pg 27.0-31.0 [facility] JwonafsYUEHPRVBDC0823-17-86 11:51:000.1[facility] HermannHEMATOLOGY 2016-06-19 11:51:000.0[facility] LvurhnkWHZDAGDUHT5781-30-72 11:51:000.0[facility] NezrvraEPGFANMXVD6382-58-43 11:51:001.2[facility] EhrqenrNYOZNBEFGM7795-14-47 11:51:000.4[facility] DaxkobjCWCYTSIDKJ1837-51-57 11:51:004.7[facility] [place] IIGBXPBPLG8499-58-63 11:51:004.8[facility] LidegcoPKZAYXJUCA0113-76-92 11:51:00 47.6[facility] AvdphzuXKBEIZLUEK8863-03-05 11:51:0046.9[facility] HermannHEMATOLOGY 2016-06-19 11:51:004.3[facility]UR[facility] AND KSOPV1039-94-73 22:55:001 [facility] CJKZB7480-98-24 22:55:00<1[facility] YQETZ7726-98-11 22:55:00Clear (03/23/16 4:55 PM)[facility]UR[facility] STOOL 2016-03-23 22:55:001.011[facility]UR[facility] AND MZGTX7714-45-66 22:55:006.0 [facility] FKYWV0800-35-39 22:55:00Yellow *NA*(03/23/16 4:55 PM) [facility] PBZDY0935-80-93 22:55:00Negative *NA*(03/23/16 4:55 PM) [facility] YISDZ1405-01-49 22:55:00Negative (03/23/16 4:55 PM) [facility] WNDAS8044-25-87 22:55:00Negative (03/23/16 4:55 PM) [facility] MUHIF6851-01-66 22:55:00Negative (03/23/16 4:55 PM) [facility]annCHEM DUGRU4164-89-71 12:16:0021[facility] HermannCHEM PANEL 2016-03-22 12:16:0015.2[facility] HermannCHEM BQVMU9130-79-56 12:16:004.0[facility] HermannCHEM TTTUI7490-40-88 12:16:000.8[facility] HermannCHEM SKUPC2895-40-53 12:16:0076[facility]annCHEM LWHRO5424-64-44 12:16:000.3[facility] HermannCHEM DIIEO5721-99-21 12:16:0028[facility] HermannCHEM FANIZ8321-25-37 12:16:009.2 [facility]annCHEM BWNDU8462-08-28 12:16:003.1[facility] HermannCHEM PANEL 2016-03-22 12:16:004.2[facility] HermannCHEM RQTYO9566-02-80 12:16:0097[facility]annCHEM VFGVC2010-06-33 12:16:007.1[facility] HermannCHEM MYMKN1887-61-75 12:16:0034[facility] HermannCHEM FURQW9850-52-79 12:16:0059[facility] HermannCHEM PYUJY2448-45-55 12:16:0086[facility]annCHEM IEHSI8440-66-24 12:16:34327 [facility]annCHEM PTIUQ3274-44-06 12:16:02155Zembazea HermannCHEM PANEL 2016-03-22 12:16:0017[facility] HermannCHEM PHOPI1958-14-27 12:16:000.82[facility] OhelrwaRVUWZYHKPD1105-22-38 12:16:004.2[facility] ZljrjjoULNORXGKVM5012-83-89 12:16:002.5[facility] IogalzsKEMLUUWEBP4804-77-76 12:16:000.6[facility] [place] MRYSJPUGXD8205-83-68 12:16:002.1[facility] EzsmdwySAADPKTFCP8956-49-32 12:16:000.6 [facility] YygrmolRNCNQXILAY0542-56-22 12:16:000.2[facility] HermannHEMATOLOGY 2016-03-22 12:16:007.5[facility] GuymscuSGZKTGMKFE0409-56-76 12:16:0056.8[facility] BkwgbcjLUEAZZIXKQ8434-26-10 12:16:0033.0[facility] RdsympeLFHHPFDFAJ0312-11-66 12:16:00 Test Item Value Reference Range Interpretation Comments MCH (test code = MCH) 32.0 pg 27.0-31.0 [facility] RhylyqwVMLWNIYHGK2597-17-20 12:16:0033.7[facility] HermannHEMATOLOGY 2016-03-22 12:16:007.4[facility] GyzpkalHQMFRKAVGN2759-54-69 12:16:0014.3[facility] HzwlxjqSPJJYZLYGJ7429-84-75 12:16:06671Crjgncxk MarystyOVRUHODGNF6003-56-26 12:16:0095.0[facility] NuwrlrtKEYHMGQRQR8215-37-09 12:16:0036.1[facility] [place] HAXJPJSQZC4551-45-41 12:16:0012.2[facility] CtgcoilFXSBSJAFTW0869-97-66 12:16:00 3.80[facility] BathmmfZSEDYTJIMX5487-21-21 12:16:007.5[facility] HermannCHEM PANEL 2016-03-20 10:34:0025[facility] HermannCHEM EOEJY4266-57-86 10:34:0015.1[facility] HermannCHEM CERWP0644-41-50 10:34:004.6[facility] HermannCHEM PUARY3905-65-22 10:34:000.7[facility] HermannCHEM EMIEZ5228-01-18 10:34:0086[facility] HermannCHEM BAAVO2041-82-73 10:34:000.4[facility] HermannCHEM ZVVXF8015-43-41 10:34:0093 [facility]annCHEM MBCEH3940-45-19 10:34:0074[facility] HermannCHEM PANEL 2016-03-20 10:34:0032[facility] HermannCHEM LEYSB6641-70-10 10:34:003.4[facility] HermannCHEM BQFTX9896-50-55 10:34:008.0[facility] HermannCHEM VVNAG3696-26-26 10:34:0098[facility] HermannCHEM IATKU0683-67-37 10:34:0027[facility] HermannCHEM NOGOI6448-77-55 10:34:009.6[facility] HermannCHEM MUCGS0772-39-80 10:34:000.68 [facility]annCHEM RKRWQ1294-12-43 10:34:17233Rkuvjfmj HermannCHEM PANEL 2016-03-20 10:34:004.1[facility] HermannCHEM QCXFO3664-18-66 10:34:38760Dvimzxou HermannCHEM ELZKF4840-03-51 10:34:0017[facility] MprmhiqIPAXJWUISB4981-67-40 10:34:006.1[facility] ZqrpqbtQBPKZMXORW8058-46-95 10:34:002.1[facility] [place] VXWIMYFEXG8304-68-02 10:34:0028.0[facility] YqjpybeFNTTVPPHPF5322-72-41 10:34:00 0.2[facility] LyuflatLEXUWESJIG1143-72-46 10:34:000.1[facility] HermannHEMATOLOGY 2016-03-20 10:34:0063.1[facility] TfdyxgzCDMBKBNFZH9944-19-05 10:34:002.4[facility] BtxzrtfKSJJMRLQTA1507-72-88 10:34:000.5[facility] CgiiyhiHSAPQDVVWH3244-59-76 10:34:000.7[facility] EonjagnYKQAPPNMDA9916-18-71 10:34:005.3[facility] [place] YJHDEACCPZ7462-98-81 10:34:65697Rhylpjub AvlzpqkURWITWYQHI8670-14-49 10:34:008.4 [facility] ElcdaazUKCHOHZLVQ2303-57-74 10:34:0094.9[facility] HermannHEMATOLOGY 2016-03-20 10:34:0037.1[facility] LzqamybSAPMATCKOC8677-72-01 10:34:0012.6[facility] KadsdxvBRCYUOMOBS2045-24-06 10:34:008.5[facility] AoxvfznFPCFCFLUTM3849-16-85 10:34:003.90[facility] HfqbhpkGEPWMIHOAO5465-02-63 10:34:0014.4[facility] [place] FYZSHOSCSX9392-91-96 10:34:00 Test Item Value Reference Range Interpretation Comments MCH (test code = MCH) 32.2 pg 27.0-31.0 [facility] GxspgjyXNPOJISJZK9513-21-66 10:34:0033.9[facility] HermannCHEM PANEL 2016-03-18 10:48:0093[facility] HermannCHEM CLWGH4523-50-63 10:48:09622Hwuxnkul HermannCHEM BWHRI4435-42-88 10:48:0018[facility] HermannCHEM DEYNT1553-91-76 10:48:0078[facility] HermannCHEM TWGTZ9862-30-48 10:48:0035[facility] HermannCHEM NWPOW1278-11-69 10:48:0074[facility]annCHEM HQFJB8943-56-32 10:48:000.67 [facility]annCHEM QWIPI2606-32-84 10:48:0099[facility] HermannCHEM PANEL 2016-03-18 10:48:003.9[facility] HermannCHEM QRQKF7241-61-00 10:48:76641Dikrpwtn HermannCHEM LTPJB7803-97-83 10:48:007.2[facility] HermannCHEM IXTLG9405-03-97 10:48:009.1[facility]annCHEM SVQOM3748-22-74 10:48:0027[facility] HermannCHEM RHNGE8547-78-04 10:48:003.1[facility] HermannCHEM AVUSG7190-39-10 10:48:000.3 [facility]annCHEM KKZSV2662-94-20 10:48:000.8[facility] HermannCHEM PANEL 2016-03-18 10:48:004.1[facility] HermannCHEM IFQEB0510-33-08 10:48:0027[facility] HermannCHEM LGFMF7968-12-25 10:48:0013.9[facility] CvzdxvuQGFCXGCJNR2785-06-20 10:48:07782Ysldpjtn KarpwweDOTSZTFVJK3132-04-97 10:48:00 Test Item Value Reference Range Interpretation Comments MCH (test code = MCH) 32.4 pg 27.0-31.0 [facility] OyyztguRJPTQNMIOU2805-37-29 10:48:008.1[facility] HermannHEMATOLOGY 2016-03-18 10:48:0033.9[facility] VuekhfsZRYYZQZIKK5164-22-79 10:48:0014.3[facility] NuexkonYIBJVMFMHM6752-10-94 10:48:0011.8[facility] WxfikgkXBOAKDOQBP3757-10-57 10:48:008.3[facility] HuuaycnTISIHVXERL6607-79-37 10:48:0034.6[facility] [place] IBAYBTMNKD2361-40-22 10:48:0095.3[facility] IsbhdftKRHPEKPBAG8236-44-18 10:48:00 3.63[facility] AktoqlcVENNYZGTEQ0374-38-03 10:48:000.2[facility] HermannHEMATOLOGY 2016-03-18 10:48:000.5[facility] YkyvmbbGAEPMMXUYY4142-92-59 10:48:002.6[facility] PigizeiHXXUEKMEFM7087-80-29 10:48:000.1[facility] XzwgginEUCNVBPBUD7716-28-52 10:48:001.0[facility] ChszxqvHRCKJHCIHJ6592-29-86 10:48:002.0[facility] [place] AXUASRRRKE1987-70-46 10:48:006.2[facility] CkjfbxoXDHKOMNEDM3447-63-32 10:48:00 59.4[facility] JgnaedmQSXVEGUTQL9500-41-14 10:48:0031.4[facility] HermannHEMATOLOGY 2016-03-18 10:48:004.9[facility] IjvbdoyFHSNVZIQDP7023-98-27 11:38:000.1[facility]UR[facility] AND CIBBF0371-12-64 06:37:00Negative (03/14/16 12:37 AM)[facility] QCLNG5736-76-48 06:37:00Negative *NA*(03/14/16 12:37 AM)[facility] WIXQS8898-83-34 06:37:00Negative (03/14/16 12:37 AM)[facility] XQUGU3522-62-68 06:37:004.0[facility]UR[facility] STOOL 2016-03-14 06:37:001[facility] YIAAR8574-53-61 06:37:00>182 [facility] IZNXL0246-94-44 06:37:00Large *ABN*(03/14/16 12:37 AM) [facility] SPBQT6535-43-92 06:37:00Yellow *NA*(03/14/16 12:37 AM) [facility] REENR5282-92-08 06:37:00Slight *ABN*(03/14/16 12:37 AM) [facility] DFTYI6979-16-57 06:37:001.016[facility]UR[facility] BLXDC7229-33-32 06:37:005.5[facility] HermannCHEM FHJMR0125-47-94 10:47:004.1 [facility]annCHEM DLDVP2243-02-17 10:47:002.4[facility] HermannIMMUNOLOGY 2016-03-12 10:47:0027.4[facility] HermannCHEM TUTAL3896-12-37 10:54:004.0[facility] HermannCHEM TKGRB9721-37-22 10:54:002.4[facility] FsuxvirNNDIPXAWXONB0741-75-05 10:54:0014.1[facility] PetucguVYVHRSOBNOWB1321-77-85 10:54:0097[facility] [place] OROCNQNTNRKK6453-03-71 10:54:0020[facility] UypvmarLICRAVPRHJFU8126-97-91 10:54:00 0.59[facility] CvrhlniYVTRDQBVRSIT2880-01-80 10:54:71922Zejktgzd [place] HRUHQWPCEKWT2975-07-53 10:54:004.1[facility] QmvlpkxCGJXOWVJYEXJ4318-64-99 10:54:0023[facility] OtdglbwKSEOWJFBPMMB2952-29-19 10:54:63836Sjaudxud [place] TLXHHHUOQNEH9683-71-56 10:54:008.6[facility] FblaefuREBUQBLYGMVE9722-69-57 10:54:0095[facility] XjuhgaaBMUAJMOTLI7742-11-56 10:54:003.3[facility] [place] AUGGTRNMGM7170-60-60 10:54:009.6[facility] JfuhmfgQJZWIKOOHE9030-03-21 10:54:00 67.9[facility] LduqdveVQSSDCPMVI0191-03-17 10:54:0023.3[facility] HermannHEMATOLOGY 2016-03-11 10:54:006.4[facility] FsewmbmOSALJSFWZC3926-44-64 10:54:001.4[facility] TfiwlhxPRDJTMYBLV9904-96-59 10:54:001.0[facility] FavfrykYACUNTXTLE6300-58-34 10:54:000.2[facility] XypbkgxOAHFFSZVIA0184-40-09 10:54:000.1[facility] CVWBPCXIFK4880-16-10 10:54:000.9[facility] AgfyasiZSUJTJAAJL0391-60-13 10:54:008.3 [facility] JpizsskMZVXBRGJRL7296-39-06 10:54:00 Test Item Value Reference Range Interpretation Comments MCH (test code = MCH) 32.2 pg 27.0-31.0 [facility] NzmezmuXFHUKJHPMQ2540-79-00 10:54:0094.2[facility] HermannHEMATOLOGY 2016-03-11 10:54:51717Wrcvaezn NgoynxoFZCZKBYMKM6710-78-37 10:54:0034.2[facility] SqyuyrxQIZLBKIOAY7240-38-04 10:54:0014.3[facility] NdxfujxXJOMFAGCNH1714-08-06 10:54:0033.8[facility] WitaawkQKELLQTKPD5380-23-55 10:54:0014.1[facility] IKVAJEIMOR5027-38-32 10:54:0011.5[facility] YqfllnlKIWTSEMGJX9719-15-59 10:54:00 3.59[facility] HermannPARATHYROID BAXTHBO4504-38-80 10:54:001.00[facility] PARATHYROID MSBFFOW8464-65-55 10:54:001.06[facility] HermannCHEM VDOCE7907-17-13 08:06:002.8[facility] HermannCHEM OASBI8114-63-49 08:06:0098[facility]annCHEM QETAL7103-10-53 08:06:009.[facility]annCHEM BXTRU5928-36-07 08:06:008.8 [facility]annCHEM FXYFK5836-76-73 08:06:000.58[facility]annCHEM PANEL 2016-03-10 08:06:003.6[facility] HermannCHEM OGTIS9195-24-04 08:06:90409Simpdeje HermannCHEM TGCIK1924-89-16 08:06:0029[facility]annCHEM WIJPL0060-59-54 08:06:97192Innrblfo HermannCHEM ERIZG5034-62-29 08:06:0085[facility]annCHEM WDTHG8664-03-17 08:06:0020[facility]annCHEM MPYSW0439-73-21 08:06:004.2 [facility] HnxvuviWVGSLHDQEY8196-50-75 08:06:0015.8[facility]annHEMATOLOGY 2016-03-10 08:06:003.55[facility] EmtahyiWAMRBYWJFH9568-91-18 08:06:0013.5[facility] FxuzcvoOYQVFZHZYL7811-52-61 08:06:42238Zxyacujy OjxmmpqXHLBVNMPMB4945-24-79 08:06:008.7[facility] MuaeytmJJKGGVZRZY2337-06-57 08:06:0011.1[facility] AGIYISBPQO1757-23-61 08:06:0033.9[facility] OuzswphGPIHRQASXM2928-70-44 08:06:00 95.6[facility] EydriuhVROBXSXBGB6313-45-07 08:06:00 Test Item Value Reference Range Interpretation Comments MCH (test code = MCH) 31.3 pg 27.0-31.0 [facility] FwmfoizKMCGNCUGCP0357-38-95 08:06:0032.7[facility]annHEMATOLOGY 2016-03-10 08:06:000.2[facility] IaeerjnPFLBGUAMER7134-58-23 08:06:001.3[facility] LvtioqoWBUSAAXGUK4516-80-05 08:06:000.2[facility] DqblmouVDZLDKPHZW8025-73-42 08:06:0010.3[facility] XeqyjgwOMWIERJISR1666-36-83 08:06:003.9[facility] MFYJMWDGPY5047-99-83 08:06:001.0[facility] WfxaigwMOQRIFQZHQ7082-97-02 08:06:001.1 [facility] JigdactIZYFZUTDXG8567-51-34 08:06:0064.9[facility]annHEMATOLOGY 2016-03-10 08:06:008.2[facility] HrkbqqbZIUVZIEMJO1537-08-87 08:06:0024.8[facility] HermannPARATHYROID OQJIGFU0947-61-90 08:06:001.11[facility] HermannPARATHYROID TRRXFAW3843-75-05 08:06:001.14[facility] UllkavvFHWRBALLXLBL7000-67-69 21:07:83791 [facility]annCHEM AAKBH2163-37-17 08:56:002.3[facility] HermannCHEM PANEL 2016-03-09 08:56:003.4[facility] PhmzmxwIHTUOGFYOHCP8839-31-62 08:56:0014.7 [facility] IxwytvnHCMBSOLGBZVO9949-84-98 08:56:0099[facility] HermannELECTROLYTES 2016-03-09 08:56:0019[facility] DxwcgzwQDBDZJKGKZOV3829-25-02 08:56:000.56[facility] LnlsmdjDAWSHFURRFFS0956-36-37 08:56:49622Woznhkfw UnpytuiUWLSVITIJOXT0822-46-73 08:56:003.7[facility] WjtbzpbCTRQUYJTYVUX1459-62-35 08:56:48596Eoevcbmq [place] SFRYTYCSCFSX4314-67-19 08:56:0023[facility] RseginqDUJKDKXVYFRP0618-57-66 08:56:00 8.8[facility] VpqeqhcVCSIYFIDYD9267-91-47 08:56:0011.6[facility]annHEMATOLOGY 2016-03-09 08:56:001.1[facility] HlrvjprXUUIBILDZJ8926-62-15 08:56:001.0[facility] VbcwyaxICYEJYTWED0160-44-53 08:56:003.4[facility] SdmqtkyQXRBPCFZVF4906-61-61 08:56:0070.0[facility] ZppjajnLNBBCZMBZK0197-30-85 08:56:007.2[facility] XXLYEVQMED2466-57-88 08:56:0020.7[facility] YkbsrprXAWFPGSUXC4211-49-82 08:56:00 1.2[facility] QwwfftfWPZDOKHKLP7899-99-87 08:56:000.2[facility]annHEMATOLOGY 2016-03-09 08:56:000.2[facility] ZehdytyOKIFHWPDRB9431-05-17 08:56:08514Phnhduhp PjypxwoEMIHUZFBIX5390-76-86 08:56:0013.7[facility] ShplsnhOPLXQAEKSS1801-85-11 08:56:008.1[facility] EytkgoxADTRLGKVBM4035-06-96 08:56:00 Test Item Value Reference Range Interpretation Comments MCH (test code = MCH) 31.9 pg 27.0-31.0 [facility] VxkzshxVVCCGJLRLX8341-74-33 08:56:0033.3[facility]annHEMATOLOGY 2016-03-09 08:56:0094.1[facility] FkxiajaYZMPJALUSD0840-45-39 08:56:0033.8[facility] GbzdlvzWKWKUKOTKQ7094-80-09 08:56:0016.6[facility] KaxstkfKGWAGWHZVL4490-33-63 08:56:0011.3[facility] XtotoqkZJFEALBDQY9196-32-92 08:56:003.54[facility] PARATHYROID FHIMOPT4536-68-72 08:56:001.06[facility] HermannPARATHYROID PROFILE 2016-03-09 08:56:001.02[facility] HermannBLOOD BANK QYGKBIN5900-92-63 06:29:00 Negative (03/08/16 12:29 AM)[facility] AzriujdBIVJXVMIST6774-93-69 06:20:00 Test Item Value Reference Range Interpretation Comments PTT (test code = PTT) 27.1 s 22.9-35.8 [facility] QbwplmaOUDLYSRVCI6862-93-32 06:20:00 Test Item Value Reference Range Interpretation Comments PT (test code = PT) 14.3 s 12.0-14.7 [facility] UdrtcefFTCQISFBNE0899-70-27 06:20:001.09[facility] HermannBODY FLUIDS 2016-03-07 22:52:0060[facility] HermannBODY TBRXNO5229-45-68 22:52:003.2[facility] HermannBODY AKOGDO0606-94-60 22:52:24912Mrmbpjfo HermannBODY QYSVKE4513-67-88 22:52:0018[facility] HermannBODY AHDNMO2604-18-11 22:52:0055[facility]annBODY HSTPUR1533-95-72 22:52:0027[facility]annBODY QTXUYP1063-32-98 22:52:6713318 [facility]annB[facility] RANXJH1945-77-12 22:52:0069[facility] HermannBODY FLUIDS 2016-03-07 22:52:00Red *ABN*(03/07/16 4:52 PM)[facility]annBODY FLUIDS 2016-03-07 22:52:00Moderate *ABN*(03/07/16 4:52 PM)[facility]annBODY FLUIDS 2016-03-07 22:52:00 Test Item Value Reference Range Interpretation Comments Tube Num CSF (test code = Tube Num CSF) 1 1 [facility]annBODY IPIPXY2819-69-99 22:52:00Hemolyzed *ABN*(03/07/16 4:52 PM) [facility] AZVTM2512-40-60 22:52:00Negative (03/07/16 4:52 PM) [facility] RQTZJ5014-21-59 22:52:00Negative (03/07/16 4:52 PM) [facility] LGNQD3151-76-52 22:52:00Moderate *ABN*(03/07/16 4:52 PM)[facility] XXKXX0747-63-85 22:52:000.2[facility]UR[facility] AND YWHXF6934-83-56 22:52:00Negative *NA*(03/07/16 4:52 PM)[facility] RQDBG7014-94-22 22:52:00Negative (03/07/16 4:52 PM)[facility] NDFHN7718-47-82 22:52:00Negative *NA*(03/07/16 4:52 PM)[facility] UOZMH3739-19-08 22:52:00Negative (03/07/16 4:52 PM)[facility] [id number] 22:52:00Yellow *NA*(03/07/16 4:52 PM)[facility] [id number] 22:52:00 Test Item Value Reference Range Interpretation Comments UA pH (test code = UA pH) 6.5 1 5.0-8.0 [facility] [id number] 22:52:00Slight Cloudy (03/07/16 4:52 PM)[facility] [id number] 22:52:00 Test Item Value Reference Range Interpretation Comments UA Spec Grav (test code = UA Spec 1.010 1 Grav) [facility] [id number] 22:52:0012[facility] [id number] 22:52:007[facility] [id number] 22:02:22929 [facility] [id number] 22:02:0052[facility] FLUIDS 2016-03-05 22:02:0069[facility] [id number] 22:02:0021[facility] [id number] 22:02:0010[facility] [id number] 22:02:00xxxxxxx (03/05/16 4:02 PM)[facility] [id number] 22:02:00 Red *ABN*(03/05/16 4:02 PM)[facility] [id number] 22:02:00Marked *ABN*(03/05/16 4:02 PM)[facility] [id number] 22:02:00Hemolyzed *ABN*(03/05/16 4:02 PM)[facility] [id number] 22:02:34715Dihhorgj HermannBODY [id number] 22:02:4647679Oaeluknx HermannURINE [facility] STOOL 2016-03-05 15:24:007[facility] [id number] 15:24:00Not Indicated *NA*(03/05/16 9:24 AM)[facility] [id number] 15:24:00Negative (03/05/16 9:24 AM)[facility] [id number] 15:24:001[facility] [id number] 15:24:00Negative (03/05/16 9:24 AM)[facility] [id number] 15:24:00Clear (03/05/16 9:24 AM)[facility] [id number] 15:24:001.011[facility] [id number] 15:24:00Negative *NA*(03/05/16 9:24 AM)[facility] [id number] 15:24:00Yellow *NA*(03/05/16 9:24 AM)[facility] [id number] 15:24:00Negative (03/05/16 9:24 AM)[facility] [id number] 15:24:007.0[facility]annBLO[facility] BANK [id number] 06:31:00 Negative (03/04/16 12:31 AM)[facility] ZfltmatNPYYZGDBPJ2906-33-28 06:31:00 Test Item Value Reference Range Interpretation Comments PTT (test code = PTT) 28.1 s 22.9-35.8 [facility] MnokoeiBECRBVDAEY6868-66-01 06:31:00 Test Item Value Reference Range Interpretation Comments PT (test code = PT) 14.5 s 12.0-14.7 [facility] SlsiiyuRZTQSTUFMU9286-09-00 06:31:001.11[facility] FLUIDS 2016-03-01 21:14:0087[facility] WTFKRA0176-52-51 21:14:002.7[facility] [id number] 21:14:0078[facility] [id number] 21:14:0013[facility] [id number] 21:14:0013[facility] [id number] 21:14:0074[facility] [id number] 21:14:79278 [facility] [id number] 21:14:6471790Gizmmdbt HermannBODY FLUIDS 2016-03-01 21:14:00Marked *ABN*(03/01/16 3:14 PM)[facility] FLUIDS 2016-03-01 21:14:00Hemolyzed *ABN*(03/01/16 3:14 PM)[facility] FLUIDS 2016-03-01 21:14:00Red *ABN*(03/01/16 3:14 PM)[facility] FLU[facility] 2016-03-01 21:14:00xxxxxxx (03/01/16 3:14 PM)[facility] STOOL 2016-02-29 17:57:00Negative (02/29/16 11:57 AM)[facility] STOOL 2016-02-29 17:57:002[facility] [id number] 17:57:002[facility] [id number] 17:57:00Negative (02/29/16 11:57 AM)[facility] [id number] 17:57:00Negative (02/29/16 11:57 AM)[facility] [id number] 17:57:001[facility] STOOL 2016-02-29 17:57:001.016[facility] [id number] 17:57:005.5 [facility] [id number] 17:57:00Slight *ABN*(02/29/16 11:57 AM) [facility] [id number] 17:57:00Negative *NA*(02/29/16 11:57 AM)[facility] [id number] 17:57:00Yellow *NA*(02/29/16 11:57 AM)[facility]annCARDIAC [id number] 06:37:00<0.02[facility] [place] BACTERIAL - [id number] 14:34:00Negative (02/27/16 8:34 AM)[facility] [id number] 06:41:00Negative *NA*(02/27/16 12:41 AM)[facility] [id number] 06:41:00Negative *NA*(02/27/16 12:41 AM)[facility] [id number] 06:41:00Negative *NA*(02/27/16 12:41 AM)[facility] [id number] 06:41:00Negative *NA*(02/27/16 12:41 AM)[facility] [id number] 06:41:00Negative *NA*(02/27/16 12:41 AM)[facility] [id number] 06:41:00Negative *NA*(02/27/16 12:41 AM)[facility] [id number] 06:41:00Negative *NA*(02/27/16 12:41 AM)[facility] [id number] 06:41:00Negative *NA*(02/27/16 12:41 AM)[facility] [id number] 06:41:00Negative *NA*(02/27/16 12:41 AM)[facility] [id number] 06:41:00See Note *NA*(02/27/16 12:41 AM)[facility] PzjvxgmSUQTQQBYXZ3523-49-09 06:40:00 Test Item Value Reference Range Interpretation Comments Angle (test code = Angle) 74.3 degrees 53.0-72.0 [facility] MnyrgajKKTTCQCURZ1291-01-69 06:40:00 Test Item Value Reference Range Interpretation Comments Max Amp (test code = Max Amp) 69.2 mm 50.0-70.0 [facility] YlqjhylNUYDOOZTAV0646-83-55 06:40:003.5[facility]annHEMATOLOGY 2016-02-27 06:40:0011.3[facility] EvuvysmCMVGDTOJBS9646-88-83 06:40:000.8[facility] YoxrhafTUKOWMPACT4957-66-23 06:40:00See Note (02/27/16 12:40 AM)[facility] [place] [id number] 06:40:00 Test Item Value Reference Range Interpretation Comments R-time (test code = R-time) 3.8 min 5.0-10.0 [facility] FpeuvrdTWQBYYEHUZ5466-93-23 06:40:00 Test Item Value Reference Range Interpretation Comments K-time (test code = K-time) 0.9 min 1.0-3.0 [facility] JdvoibiZUIUTTUSQM8762-55-04 06:40:001.23[facility]annHEMATOLOGY 2016-02-27 06:40:00 Test Item Value Reference Range Interpretation Comments PT (test code = PT) 15.8 s 12.0-14.7 [facility] AblbxebRIGYDEHQRP8724-16-83 06:40:00 Test Item Value Reference Range Interpretation Comments PTT (test code = PTT) 25.3 s 22.9-35.8 [facility] MUDEYSPTE5284-54-63 06:40:[address] GEQWDTJAOH9868-53-82 14:51:00 Test Item Value Reference Range Interpretation Comments POC Activated Clotting Time (test code 154 s = POC Activated Clotting Time) [facility] BANK [id number] 09:00:00Negative (02/26/16 3:00 AM) [facility] [id number] 08:56:510.4[facility]annCHEM PANEL 2016-02-26 08:56:5181[facility]annCHEM [id number] 08:56:5145[facility]annCHE[facility] MTYEU6351-60-72 08:56:517.8[facility]annCHEM [id number] 08:56:513.7[facility]annCHEM [id number] 08:56:5152[facility]annCHEM EOSHS1430-25-43 08:56:510.9[facility]annCHEM [id number] 08:56:514.1 [facility]annCHE[facility] [id number] 08:56:5127[facility]annHEMATOLOGY 2016-02-26 08:56:5110.5[facility] LvipkaxDGCMQBWJSN3233-28-46 08:56:51 Test Item Value Reference Range Interpretation Comments Max Amplitude Rapid (test code = Max 68 mm 52-71 Amplitude Rapid) [facility] AllenSjjpqkyRMGTIIDSDH4751-39-57 08:56:51 Test Item Value Reference Range Interpretation Comments K-time Rapid (test code = K-time 1.1 min 0.6-2.3 Rapid) [facility] AllenFgoteqvVZPTNYPZIV2320-24-62 08:56:51 Test Item Value Reference Range Interpretation Comments Angle Rapid (test code = Angle 76 degrees 64-80 Rapid) [facility] 08:56:51 Test Item Value Reference Range Interpretation Comments Split Point Rapid (test code = Split 0.6 min Point Rapid) [facility]QssdgamXRKLBKUWRA2853-32-08 08:56:51 Test Item Value Reference Range Interpretation Comments R-time Rapid (test code = R-time 0.8 min 0.4-0.7 Rapid) [facility]TicyxyaXBPZASOIGY1449-06-82 08:56:51 Test Item Value Reference Range Interpretation Comments ACT (TEG) Rapid (test code = ACT (TEG) 121 s 86-118 Rapid) [facility] WorthYnqvrcrEMDFQTYBXN6623-88-67 08:56:510.6[facility]
[2019-08-12] MEDS ORDERED: NA CHLORIDE 0.9% 500 ML ONE (10:14)
[2019-08-12 10:38] LABS: Absolute Lymphocytes (CBC) 2.1 K/uL (0.7-4.9); Basophils % 0.6 % (0-1.3); Hematocrit 44.5 % (36.0-45.0); Lymphocytes % 19.7 % (15.3-44.8); MPV 8.3 fL (7.6-11.3); RBC Red Blood Cell Count 4.89 M/uL (3.86-4.86)
[2019-08-12 11:16] LABS: Urine Blood NEGATIVE (NEG); Urine Glucose 2+ (NEG); Urine Protein NEGATIVE (NEG); Urine Specific Gravity 1.015 (1.005-1.030)
[2019-08-12 12:06] LABS: BUN Blood Urea Nitrogen 15 mg/dL (7-18); Bicarbonate 25 mmol/L (21-32); Glucose Level 213 mg/dL (74-106); Potassium 3.8 mmol/L (3.5-5.1); Sodium Level 138 mmol/L (136-145)
--- NOTE | 2019-08-12 12:22 | EDPHYS ---
Physician Documentation [facility] Name: Lorri Dotson Age: 69 yrs Sex: Female : 1950 Arrival Date: 08/12/2019 Time: 08:53 Bed 17 Private MD: ED Physician Leonel Mccracken HPI: 08/11 09:16 This 69 yrs old Female presents to ER via Unassigned with complaints of High [facility] Blood Sugar. 09:16 The patient presents with sore throat. Onset: The symptoms/episode began/occurred jm gradually, 2 day(s) ago. Modifying factors: The symptoms are alleviated by nothing, the symptoms are aggravated by nothing. Associated signs and symptoms: Pertinent positives: cough, headache, Pertinent negatives chest pain, diarrhea, fever, flu-like symptoms. This is a 69 year old female with a history of DM, HLP that presents to the ED with complaints of sore throat beginning 2 days ago with a mild cough. Patient states her BGL is elevated. Denies shortness of breath but has a mild cough. w. Historical: - Allergies: 08:57 No Known Allergies; rb1 - Home Meds: 08:57 Unable to obtain [Active]; rb1 - PMHx: 08:57 Diabetes - NIDDM; Hypertension; TIA; High Cholesterol; rb1 - PSHx: 08:57 brain surgery with clips; rb1 - Immunization history:: Adult Immunizations up to date. - Social history:: Smoking status: Patient denies any tobacco usage or history of. ROS: 09:16 Constitutional: Negative for fever, chills, and weight loss. jmm 09:16 Abdomen/GI: Negative for abdominal pain, nausea, vomiting, diarrhea, and constipation, Back: Negative for injury and pain. 09:16 ENT: Positive for sore throat. 09:16 Respiratory: Positive for cough. 09:16 Neuro: Positive for headache. 09:16 All other systems are negative. Exam: 09:16 Constitutional: This is a well developed, well nourished patient who is awake, alert, jmm and in no acute distress. Head/Face: atraumatic. Eyes: EOMI, no conjunctival erythema appreciated ENT: Moist Mucus Membranes Neck: Trachea midline, Supple Chest/axilla: Normal chest wall appearance and motion. Cardiovascular: Regular rate and rhythm. No edema appreciated Respiratory: Normal respirations, no respiratory distress appreciated Abdomen/GI: Non distended, soft Back: Normal ROM Skin: General appearance color normal MS/ Extremity: Moves all extremities, no obvious deformities appreciated, no edema noted to the lower extremities Neuro: Awake and alert, normal gait Psych: Behavior is normal, Mood is normal, Patient is cooperative and pleasant Vital Signs: 08:57 BP 120 / 57; Pulse 75; Resp 17; Temp 98.3(TE); Pulse Ox 94% on R/A; Weight 72.57 kg rb1 (R); Height 5 ft. 4 in. (162.56 cm) (R); Pain 0/10; 10:15 BP 116 / 56; Pulse 61; Resp 15 S; Pulse Ox 97% on R/A; ca1 11:03 BP 117 / 59; Pulse 62; Resp 15 S; Pulse Ox 99% on R/A; ca1 12:05 BP 126 / 59; Pulse 69; Resp 15 S; Pulse Ox 100% on R/A; ca1 08:57 Body Mass Index 27.46 (72.57 kg, 162.56 cm) rb1 MDM: 09:08 Patient medically screened. [facility] 12:18 Data reviewed: vital signs, nurses notes. Counseling: I had a detailed discussion with [facility] the patient and/or guardian regarding: the historical points, exam findings, and any diagnostic results supporting the discharge/admit diagnosis, lab results, the need for outpatient follow up, to return to the emergency department if symptoms worsen or persist or if there are any questions or concerns that arise at home. ED course: Patient is alert and non toxic in appearance in the ED. Patient is advised to follow up with pcp and otherwise given strict return precautions. Patient understood and agrees with the plan of care. . 08/11 09:09 Order name: CBC with Diff; Complete Time: 10:56 [facility] 08/11 09:09 Order name: BMP; Complete Time: 12:13 [facility] 08/11 09:09 Order name: Ketone, Serum; Complete Time: 12:13 [facility] 08/11 09:16 Order name: Strep; Complete Time: 10:43 [facility] 08/11 09:20 Order name: Glucose, Ancillary Testing; Complete Time: 09:21 [facility] 08/11 10:17 Order name: Urine Dipstick--Ancillary (enter results); Complete Time: 11:20 co 08/11 09:09 Order name: Urine Dipstick-Ancillary (obtain specimen); Complete Time: 10:08 [facility] 08/11 09:09 Order name: Saline Lock; Complete Time: 10:08 [facility] 08/11 10:41 Order name: Throat Culture EDSC Administered Medications: 10:07 Drug: NS 0.9% 500 ml Route: IV; Rate: bolus; Site: right antecubital; ca1 10:35 Follow up: Response: No adverse reaction; IV Status: Completed infusion ca1 Point of Care Testing: Blood Glucose: :18 Blood Glucose: 208 mg/dL; rb1 Ranges: Critical Glucose Levels:Adult <50 mg/dl or >400 mg/dl <40 mg/dl or >180 mg/dl Disposition: 13:29 Co-signature as Attending Physician, Leonel Mccracken MD I agree with the assessment and [facility] plan of care. Disposition: 08/12/19 12:21 Discharged to Home. Impression: Acute pharyngitis, Hyperglycemia, unspecified. - Condition is Stable. - Discharge Instructions: Hyperglycemia, Pharyngitis. - Prescriptions for Amoxicillin 875 mg Oral Tablet - take 1 tablet by ORAL route every 12 hours for 10 days; 20 tablet. - Medication Reconciliation Form, Thank You Letter, Antibiotic Education, Prescription Opioid Use form. - Follow up: Private Physician; When: 2 - 3 days; Reason: Recheck today's complaints, Continuance of care, Re-evaluation by your physician. Signatures: Dispatcher [employer] Leonel Juan MD MD cha Mickail, Joel, PA PA jmm Munoz, Edgar RN RN Chelsea Kim, RN RN rb1 Sharda Mensah RN RN ca1 Corrections: (The following items were deleted from the chart) 12:31 12:21 08/12/2019 12:21 Discharged to Home. Impression: Acute pharyngitis; em Hyperglycemia, unspecified. Condition is Stable. Forms are Medication Reconciliation Form, Thank You Letter, Antibiotic Education, Prescription Opioid Use. Follow up: Private Physician; When: 2 - 3 days; Reason: Recheck today's complaints, Continuance of care, Re-evaluation by your physician. [facility]
--- NOTE | 2019-08-12 12:22 | ER ---
Nurse's Notes [facility] Name: Lorri Dotson Age: 69 yrs Sex: Female : 1950 Arrival Date: 08/12/2019 Time: 08:53 Bed 17 Private MD: Diagnosis: Acute pharyngitis;Hyperglycemia, unspecified Presentation: 08/11 08:57 Chief complaint: Patient states: High blood sugar this morning, BS 283. Pt. takes rb1 medication but does not know the name of the pills. Onset of symptoms was August 12, 2019. 08:57 Method Of Arrival: Ambulatory rb1 08:57 Acuity: SARAI 3 rb1 10:10 Coronavirus screen: Proceed with normal triage. Patient denies a cough. Patient denies ca1 shortness of breath or difficulty breathing. Patient denies measured and/or subjective temperature greater than 100.4F prior to today's visit. Patient denies travel on a cruise ship or to a country the [facility] currently lists as an affected area. Patient denies contact with known and/or suspected case of COVID-19. Ebola Screen: Patient negative for fever greater than or equal to 101.5 degrees Fahrenheit, and additional compatible Ebola Virus Disease symptoms Patient denies exposure to infectious person. Patient denies travel to an Ebola-affected area in the 21 days before illness onset. No symptoms or risks identified at this time. Initial Sepsis Screen: Does the patient meet any 2 criteria? No. Patient's initial sepsis screen is negative. Does the patient have a suspected source of infection? No. Patient's initial sepsis screen is negative. Risk Assessment: Do you want to hurt yourself or someone else? Patient reports no desire to harm self or others. Triage Assessment: 08:57 General: Appears in no apparent distress. comfortable, Behavior is calm, cooperative, rb1 Denies fever, chills. Pain: Denies pain. EENT: Reports sore throat x 2 days. Neuro: Level of Consciousness is awake, alert, obeys commands, Oriented to person, place, time, situation. Cardiovascular: Capillary refill < 3 seconds. Respiratory: Reports cough that is non-productive, occasionally Airway is patent Respiratory effort is even, unlabored, Respiratory pattern is regular, symmetrical. GI: No signs and/or symptoms were reported involving the gastrointestinal system. : No signs and/or symptoms were reported regarding the genitourinary system. Derm: Skin is pink, warm \T\ dry. Historical: - Allergies: 08: No Known Allergies; rb1 - Home Meds: : Unable to obtain [Active]; rb1 - PMHx: 08:57 Diabetes - NIDDM; Hypertension; TIA; High Cholesterol; rb1 - PSHx: 08:57 brain surgery with clips; rb1 - Immunization history:: Adult Immunizations up to date. - Social history:: Smoking status: Patient denies any tobacco usage or history of. Screenin:08 Abuse screen: Denies threats or abuse. Denies injuries from another. Nutritional ca1 screening: No deficits noted. Tuberculosis screening: No symptoms or risk factors identified. Fall Risk IV access (20 points). Assessment: :57 Reassessment: See triage assessment. rb1 10:08 General: Appears in no apparent distress. comfortable, Behavior is calm, cooperative, ca1 appropriate for age. Pain: Complains of pain in forehead. Neuro: Level of Consciousness is awake, alert, obeys commands, Oriented to person, place, time, situation. Cardiovascular: Heart tones S1 S2 present Capillary refill < 3 seconds Patient's skin is warm and dry. Respiratory: Airway is patent Respiratory effort is even, unlabored, Respiratory pattern is regular, symmetrical, Breath sounds are clear bilaterally. GI: Abdomen is flat, non-distended, Bowel sounds present X 4 quads. Abd is soft and non tender X 4 quads. : No signs and/or symptoms were reported regarding the genitourinary system. EENT: No signs and/or symptoms were reported regarding the EENT system. Derm: Skin is intact, is healthy with good turgor, Skin is pink, warm \T\ dry. Musculoskeletal: Circulation, motion, and sensation intact. Capillary refill < 3 seconds. 11:03 Reassessment: Patient appears in no apparent distress at this time. Patient and/or ca1 family updated on plan of care and expected duration. Pain level reassessed. Patient is alert, oriented x 3, equal unlabored respirations, skin warm/dry/pink. 12:05 Reassessment: Patient appears in no apparent distress at this time. Patient and/or ca1 family updated on plan of care and expected duration. Pain level reassessed. Patient is alert, oriented x 3, equal unlabored respirations, skin warm/dry/pink. Vital Signs: 08:57 BP 120 / 57; Pulse 75; Resp 17; Temp 98.3(TE); Pulse Ox 94% on R/A; Weight 72.57 kg rb1 (R); Height 5 ft. 4 in. (162.56 cm) (R); Pain 0/10; 10:15 BP 116 / 56; Pulse 61; Resp 15 S; Pulse Ox 97% on R/A; ca1 11:03 BP 117 / 59; Pulse 62; Resp 15 S; Pulse Ox 99% on R/A; ca1 12:05 BP 126 / 59; Pulse 69; Resp 15 S; Pulse Ox 100% on R/A; ca1 08:57 Body Mass Index 27.46 (72.57 kg, 162.56 cm) rb1 ED Course: 08:53 Patient arrived in ED. mr 08:57 Chava Isabel PA is PHCP. [facility] 08:57 Leonel Mccracken MD is Attending Physician. [facility] 09:16 Chelsea Alvarez, ELIAS is Primary Nurse. rb1 09:57 No provider procedures requiring assistance completed. Initial lab(s) drawn, by az, ca1 sent to lab. Urine collected: clean catch specimen, cloudy. Inserted saline lock: 20 gauge in right antecubital area, using aseptic technique. Blood collected. 10:05 Arm band placed on right wrist. ca1 10:08 Strep Sent. ca1 10:08 BMP Sent. ca1 10:08 CBC with Diff Sent. ca1 10:08 Patient has correct armband on for positive identification. Bed in low position. Call ca1 light in reach. Side rails up X 1. Pulse ox on. NIBP on. Warm blanket given. 10:25 Triage completed. rb1 11:22 Throat Culture Sent. sv 12:30 IV discontinued, intact, bleeding controlled, No redness/swelling at site. Pressure em dressing applied. Administered Medications: 10:07 Drug: NS 0.9% 500 ml Route: IV; Rate: bolus; Site: right antecubital; ca1 10:35 Follow up: Response: No adverse reaction; IV Status: Completed infusion ca1 Point of Care Testing: Blood Glucose: 09:18 Blood Glucose: 208 mg/dL; rb1 Ranges: Outcome: 12:21 Discharge ordered by . [facility] 12:30 Discharged to home ambulatory. em 12:30 Condition: good 12:30 Discharge instructions given to patient, Instructed on discharge instructions, follow up and referral plans. medication usage, Demonstrated understanding of instructions, follow-up care, medications, Prescriptions given X 1. 12:31 Patient left the ED. em Signatures: Julieta Dominguez, RN RN Chava Riley PA PA jmm Sarai Zeng, ELIAS Ochoa RN em Chelsea Alvarez RN RN [facility] Sharda Mensah RN RN ca1 Corrections: (The following items were deleted from the chart) 12:24 11:03 Pulse 62bpm; Resp 15bpm; Spontaneous; Pulse Ox 99% RA; ca1 ca1
[2019-08-12] MEDS ORDERED: ACETAMINOPHEN 325 MG TABLET ONE (12:36)
[2019-08-12 12:37] VITALS: TEMP 98.3
[2019-08-12 12:42] VITALS: BP 126/59; O2SAT 100
== END 2019-08-12 12:31 | disposition home or self-care (01) ==
LOC: ER 08:48
DX: R73.9 Hyperglycemia, unspecified (principal); J02.9 Acute pharyngitis, unspecified
CPT/HCPCS: 87070; 85025; 80048; 36415; 82010; 82947; 87081; 81003; 99284; J7040

== ENCOUNTER 2019-10-03 08:16 | Emergency (ER) | payer OTHER ==
--- OUTSIDE RECORDS SUMMARY | 2019-10-03 08:19 | XMS REPORT | Continuity of Care Document ---
:1950 Author Organization [employer] Care Team Providers Name Role Phone [email or web address] Unavailable Un available Problems Problem Status Onset Classification Date Comments Sourc e Date Reported Other specified 09/06/19 03/15/2018 [facility] disorders of brain 18 edical Center TIA Active 08/25/[address] ESTEFANIA BILLING Active 08/25/[address] POSSIBLE STROKE Active 08/25/[address] Center Weakness 03/15/2018 [facility] [place] Hyperlipidemia, 03/15/2018 [facility] unspecified [facility] Type 2 diabetes 03/15/2018 [facility] mellitus with Medica l hyperglycemia Center Hypertensive 03/15/2018 [place] as chronic kidney Medic al disease with stage C enter 1 through stage 4 chronic kidney disease, or unspecified chronic kidney disease Type 2 diabetes 03/15/2018 [facility] mellitus with Medica l diabetic chronic [address] ter kidney disease Chronic kidney 03/15/2018 [facility] melissaas disease, stage 2 Med ical (mild) Center Dependence on 03/15/2018 [facility] renal dialysis Medic al Center prison 03/15/2018 [facility] (current) use of Med ical oral hypoglycemic Ce nter drugs Cerebral edema Active Problem 03/15/2018 [facility] (disorder) [facility] Center Diabetes mellitus Resolved Problem 03/15/2018 [facility] (disorder) Medical [place] Flaccid hemiplegia Active Problem 03/15/2018 [facility] (disorder) [facility] Hemorrhage into Active Problem 03/15/2018 [facility] subarachnoid space edical of neuraxis Center (disorder) Hyperosmolality Active Problem 03/15/2018 [facility] with hypernatremia edical (disorder) Center Hypertensive Active Problem 03/15/2018 [place] as disorder, systemic M edical arterial Center (disorder) Obstructive Active Problem 03/15/2018 [place] hydrocephalus Medica [place] (disorder) Center Respiratory Active Problem 03/15[place] failure ([place]order[place]ical [place] Ventricular Active Problem 03/15/[place] hemorrhage Medical (disorder) Center TRANSIENT CEREBRAL Active [facility] [place] ISCHEMIC ATTACK, [facility] ical [facility] Center Medications Medication Details Route Status Patient Ordering Order Source Instructions Provider Date Metformin 1,250 mg, Active [place] hydrochloride PO, 018 Medical 1000 MG Oral BID-Meals, # Center Tablet 180 tab, 1 Refill(s), Pharmacy: [id number] Plavix 75 mg, No Longer [facility] Route: PO, Active 018 Medical Drug form: Center TAB, Daily, Dosing Weight 77.273, kg, Start date: 08/26/17 9:00:00 CDT, Duration: 30 day, Stop date: 09/24/17 9:00:00 CDT Lovastatin 10 mg, No Longer [facility] Route: PO, Active 018 Medical Drug form: Center TAB, Daily, Dosing Weight 77.273, kg, Start date: 08/26/17 9:00:00 CDT, Duration: 30 day, Stop date: 09/24/17 9:00:00 CDT Lipitor Notes: (Same No Longer [facility] As: Lipitor) Active [address] [place] [address] Metformin 1,500 mg, No Longer [facility] hydrochloride PO, Active 018 Medical 1000 MG Oral BID-Meals, # Center Tablet 270 tab, 1 Refill(s), Pharmacy: [id number] clopidogrel 75 75 mg = 1 [place] oral tablet tab, PO, 018 [place] Daily, # 90 Center tab, 1 Refill(s), Pharmacy: [id number] lisinopril 20 mg 20 mg = 1 [place] tab, PO, 018 Medical Daily, 0 Center Refill(s) Metformin 1,000 mg = 1 Inactive [place] hydrochloride tab, PO, 018 Medical 1000 MG Oral BID-Meals, # Center Tablet 30 tab, 0 Refill(s) lovastatin 10 mg 10 mg = 1 [place] tablet tab, PO, 018 Medical Daily, 0 Center Refill(s) glimepiride 4 MG 4 mg = 1 Active [place] as Oral Tablet tab, PO, 018 Medical [Amaryl] Daily, 0 Center Refill(s) Insulin Lispro Notes: (Same No Longer [facility] as: Humalog Active 018 Medical ) Roll in Center palms of hands gently; Do not shake `vigorously. "Single Patient Use Only " WASTE: F/P - Black; E - Municipal Trash Bin Stable for 28 days at room temperature. Expires in days from __Date Glucagon 1 mg, Route: No Longer [facility] IM, Drug Active 018 Medical form: Center PDR/INJ, PRN, Dosing Weight 77.273, kg, PRN Blood Glucose Results, Start date: 08/25/17 12:11:00 CDT, Duration: 30 day, Stop date: 09/24/17 12:10:00 CDT Dextrose 50% 25 gm, 50 [place] Longer [place] Syringe mL, Route: Active 018 Medical IVP, Drug Center Form: INJ, Dosing Weight 77.273, kg, PRN, PRN Blood Glucose Results, Start date: 08/25/17 12:11:00 CDT, Duration: 30 day, Stop date: 09/24/17 12:10:00 CDT Plavix Notes: (Same No Longer [facility] As: Plavix) Active [address] [place] [address] Center Tylenol Notes: Do No Longer [facility] not exceed 4 Active 018 Medical gm/day. Center (Same as: Tylenol) Saline Flush Notes: (Same No Longer [place] 0.9% as: BD Active 018 Medical Posiflush) Center atorvastatin Notes: Same [place] Longer [place] Lipitor Active 018 [facility] Center heparin Notes: No Longer [facility] porcine Active 018 [facility] heparin Center Aspirin 81 MG Notes: Do No Longer [place] as Enteric Coated not crush or Active 018 Medi layla Tablet chew. (Same Center As: Ecotrin) Saline Flush Notes: (Same No Longer [place] 0.9% as: BD Active 018 Medical Posiflush) [place] iodixanol 100 mL, Inactive [facility] Route: IVP, 018 Medical Drug Form: Center SOLN, kg, ONCALL, STAT, Start date: 08/24/17 14:16:00 CDT, Duration: 1 doses or times, Dose = 2.2ml/kg, Max dose = 100ml -- "To be infused by Radiology Staff ONLY" Saline Flush Notes: (Same No Longer [place] 0.9% as: BD Active 018 Medical Posiflush) Center Allergies, Adverse Reactions, Alerts No Known Medication Allergies Immunizations Immunization Date Given Site Status Last Comments Source Updated pneumococcal 06/20/2016 Not Given [place] as 23-valent Medical vaccine<sup>1</villar Ce nter p> pneumococcal 03/03/2016 Right completed [facility] [place] as 13-valent vaccine Deltoid Me dical Center Results Order Name Results Value Reference Date Interpretation Comments Imelda rce Range CHEM PANEL Phosphorus 5.0 2.5 - 4.5 08/26 [facility] CHEM PANEL Magnesium Lvl 2.1 1.8 - 2.4 08/26 [place] [facility] CHEM PANEL eGFR 76 08/26 Result [...] CHEM PANEL Creatinine 0.81 0.50 - 08/26 [facility] Lvl 1.40 [facility] CHEM PANEL Glucose Lvl 132 70 - 99 08/26 [facility] CHEM PANEL Sodium Lvl 140 135 - 145 08/26 [facility]2017 [facility] CHEM PANEL Potassium Lvl 4.6 3.5 - 5.1 08/26 [facility] CHEM PANEL BUN 19 7 - 22 08/26 [facility] CHEM PANEL CO2 25 24 - 32 08/26 [facility] CHEM PANEL Calcium Lvl 9.2 8.5 - 10.5 08/26 [facility] CHEM PANEL Chloride Lvl 104 95 - 109 08/26 [facility] CHEM PANEL AGAP 15.6 10.0 - 08/26 [place] 20.0 [facility] HEMATOLOGY Monocytes 7.2 2.0 - 12.0 08/26 [facility] HEMATOLOGY Segs 51.4 45.0 - 08/26 [place] 75.0 [facility] HEMATOLOGY Lymphocytes 38.6 20.0 - 08/26 40.0 [facility] HEMATOLOGY Lymphocytes # 3.2 1.0 - 5.5 08/26 [facility] HEMATOLOGY Eosinophils 1.9 0.0 - 4.0 08/26 [facility] HEMATOLOGY Basophils 0.9 0.0 - 1.0 08/26 [facility] HEMATOLOGY Neutrophils # 4.2 1.5 - 8.1 08/26 [facility] HEMATOLOGY Eosinophils # 0.2 0.0 - 0.5 08/26 [facility] HEMATOLOGY Basophils # 0.1 0.0 - 0.2 08/26 [facility] HEMATOLOGY Monocytes # 0.6 0.0 - 0.8 08/26 [facility] HEMATOLOGY WBC 8.2 3.7 - 10.4 08/26 [facility] HEMATOLOGY Hct 38.7 36.0 - 08/26 [place] 48.0 [facility] HEMATOLOGY RBC 4.18 4.20 - 08/26 [place] 5.40 [facility] HEMATOLOGY Hgb 13.1 12.0 - 08/26 16.0 [facility] HEMATOLOGY MPV 9.1 7.4 - 10.4 08/26 [facility]2017 [facility] HEMATOLOGY RDW 13.1 11.5 - 08/26 [place] 14.5 [facility] HEMATOLOGY Platelet 230 133 - 450 08/26 [facility] HEMATOLOGY MCH 31.4 27.0 - 08/26 [facility] [place] 31.0 [facility] HEMATOLOGY MCHC 33.9 32.0 - 08/26 [facility] 36.0 [facility] HEMATOLOGY MCV 92.4 80.0 - 08/26 [facility] 98.0 [facility] PARATHYROID Ca Ion WB 1.11 1.05 - 08/26 [facility] PROFILE 1. [facility] PARATHYROID Ca Norm WB 1.11 1.05 - 08/26 [facility] PROFILE 1. [facility] LIPIDS VLDL 22 08/24 [facility] LIPIDS LDL 67 <=99 mg/dL 08/24 [facility] (Calculated) /2017 [facility] LIPIDS HDL 30 >=61 mg/dL 08/24 [facility] LIPIDS Chol 119 <=199 08/24 [facility] mg/dL [facility] LIPIDS Trig 112 <=149 08/24 [facility] mg/dL [facility] LIPIDS CHD Risk 3.97 3.90 - 08/24 [facility] 5.80 [facility] SPECIAL Hgb A1C 8.1 <=5.6 % 08/24 [facility] CHEMISTRY /2017 [facility] URINE AND UA RBC None Seen 0 - 2 08/24 [facility] (08/24/17 3:04 PM) /2017 [facility] URINE AND UA WBC None Seen None Seen 08/24 [facility] (08/24/17 3:04 PM) /2017 [facility] URINE AND UA Sq Epi Rare /LPF Few /LPF 08/24 [facility] [address] [place] [address] URINE AND UA 0.2 0.1 - 1.0 08/24 [facility] STOOL Urobilinogen /[address] [place] [address] URINE AND UA Blood Negative Negative 08/24 [facility] STOOL (08/24/17 3:04 PM) /2017 [facility] URINE AND UA Nitrite Negative Negative 08/24 [facility] STOOL (08/24/17 3:04 PM) /2017 [facility] URINE AND UA Leuk Est Negative Negative 08/24 [facility] (08/24/17 3:04 PM) /2017 [facility] URINE AND UA Bili Negative Negative 08/24 [facility] STOOL *NA* /2017 [facility] (08/24/17 3:04 PM) [place] URINE AND UA Ketones Negative Negative 08/24 [facility] STOOL mg/dL mg/dL [facility] URINE AND UA Protein Negative Negative 08/24 [facility] STOOL mg/dL mg/dL [facility] URINE AND UA Glucose Negative Negative 08/24 [facility] mg/dL mg/dL [facility] URINE AND UA pH 6.0 5.0 - 8.0 08/24 [facility] /2017 [facility] URINE AND UA Spec Grav 1.010 <=1.030 08/24 [facility] [address] [place] [address] URINE AND UA Turbidity Clear Clear 08/24 [facility] (08/24/17 3:04 PM) /[address] [place], [place] [address]a l [place] URINE AND UA Color Yellow Yellow 08/24 [facility] *NA* /2017 Medical (08/24/17 3:04 PM) [place] CARDIAC Troponin-I <0.02 0.00 - 08/24 [facility] ENZYMES 0.40 [facility] CARDIAC Total CK 88 12 - 191 08/24 [facility] ENZYMES /2017 [facility] ELECTROLYTES AGAP 15.5 10.0 - 08/24 [place] 20.0 [facility] ELECTROLYTES CO2 23 24 - 32 08/[address] ELECTROLYTES Calcium Lvl 9.0 8.5 - 10.5 08/24 [place] [facility] ELECTROLYTES Chloride Lvl 105 95 - 109 08/24 [place] [facility] ELECTROLYTES eGFR 77 08/24 Result Comment: [facility] eGFR is Center calculated using the CKD-EPI [...] should be multiplied by the estimated BMI. ELECTROLYTES Potassium Lvl 4.5 3.5 - 5.1 08/24 Result Comment: Medical Specimen Center Slightly Hemolyzed. ELECTROLYTES Sodium Lvl 139 135 - 145 08/24 [facility] ELECTROLYTES BUN 15 7 - 22 08/24 [facility] ELECTROLYTES Creatinine 0.80 0.50 - 08/24 [facility] Lvl 1.40 /2017 [facility] ELECTROLYTES Glucose Lvl 92 70 - 99 08/24 [facility] HEMATOLOGY Monocytes # 0.7 0.0 - 0.8 08/24 [facility] HEMATOLOGY Basophils 0.7 0.0 - 1.0 08/24 [facility] HEMATOLOGY Neutrophils # 7.1 1.5 - 8.1 08/24 [facility] HEMATOLOGY Eosinophils # 0.1 0.0 - 0.5 08/24 [facility] HEMATOLOGY Basophils # 0.1 0.0 - 0.2 08/24 [facility] HEMATOLOGY Lymphocytes # 4.4 1.0 - 5.5 08/24 [facility] HEMATOLOGY Segs 57.1 45.0 - 08/24 [place] 75.0 [facility] HEMATOLOGY Lymphocytes 35.6 20.0 - 08/24 [place] 40.0 [facility] HEMATOLOGY Monocytes 5.6 2.0 - 12.0 08/24 [facility] HEMATOLOGY Eosinophils 1.0 0.0 - 4.0 08/24 [facility] HEMATOLOGY PT 13.2 12.0 - 08/24 [place] 14.7 [facility] HEMATOLOGY INR 1.00 0.85 - 08/24 [place] 1.17 [facility] HEMATOLOGY MPV 8.0 7.4 - 10.4 08/24 [facility] HEMATOLOGY MCHC 33.4 32.0 - 08/24 [place] 36.0 [facility] HEMATOLOGY RDW 13.3 11.5 - 07 [place] 14.5 [facility] HEMATOLOGY MCH 31.0 27.0 - 08/24 [place] 31.0 [facility] HEMATOLOGY Platelet 269 133 - 450 08/24 [facility] HEMATOLOGY Hct 40.1 36.0 - 07 [place] 48.0 /2018 [facility] HEMATOLOGY Hgb 13.4 12.0 - 07 [place] 16.0 2018 [facility] HEMATOLOGY MCV 92.8 80.0 - 08/24 [facility] [place] 98.0 /2018 [facility] HEMATOLOGY WBC 12.4 3.7 - 10.4 08/24 [facility] /2017 [facility] HEMATOLOGY RBC 4.32 4.20 - 08/24 [facility] 5.40 [facility] HEMATOLOGY PTT 25.6 22.9 - 08/24 [facility] 35.8 /2017 [facility] Pathology Reports No Data Provided for This Section Diagnostic Reports Report Value Date Source Brain wo contrast MRI EXAM: MRI BRAIN WITHOUT CONTRAST 8 [facility] Medical DATE: 08/24/2017 549 PM CDT Cente r [...] ent with previous preliminary report made by radiation control health physicist hvac residential service technician. 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 The vertebral arteries are p atent from [...] the distal internal carotid artery {NASCET criteria}.) Consultation Notes No Data Provided for This Section Discharge Summaries No Data Provided for This Section History and Physicals No Data Provided for This Section Vital Signs Vital Sign Value Date Comments Source Temperature Oral (F) 98.0 F 08/26/2017 [place] [facility] Respitory Rate 18 08/26/2017 [facility] Systolic (mm Hg) 126 08/26/2017 [facility] Diastolic (mm Hg) 83 08/26/2017 [facility] Heart Rate 67 08/26/2017 [facility] Heart Rate 60 08/26/2017 [facility] Respitory Rate 18 08/26/2017 [facility] Systolic (mm Hg) 109 08/26/2017 [facility] Diastolic (mm Hg) 61 08/26/2017 [facility] Temperature Oral (F) 98.8 F 08/26/2017 [facility] Temperature Oral (F) 97.5 F 08/26/2017 [facility] Heart Rate 60 08/26/2017 [facility] Systolic (mm Hg) 110 08/26/2017 [facility] Center Diastolic (mm Hg) 61 08/26/2017 [facility] Respitory Rate 18 08/26/2017 [facility] Weight 77.273 08/25/2017 [facility] BMI Calculated 42.64 08/25/2017 [facility] Height 134.62 cm 08/25/2017 [facility] BMI Calculated 29.24 08/24/2017 [facility] Height 162.56 cm 08/24/2017 [facility] Weight 77.273 08/24/2017 [facility] Weight 77.273 08/24/2017 [facility] BMI Calculated 29.24 08/24/2017 [facility] Height 162.56 cm 08/24/2017 [facility] Encounters Location Location Encounter Encounter Reason Attending ADM DC Stat us Source Details Type Number For Provider Date Date Visit [facility] Observation [id number] Veronika 08/24 08/26 [facility] Kain Cavazos /2017 [facility] Procedures Procedure Code Date Perfomer Comments Source Craniotomy and [id number] [facility] clipping of [facility] intracranial [place] aneurysm Repair of aneurysm [id number] [place] as by [facility] Assessment and Plan Assessment and Plan Date Source Extracted from:Title: post discharge follow-up call 08/27/19 18 [facility] [place] Author: Tory Lazo RN Date: 09/01/17 Completed post-discharge follow-up call for this patient on August 28, 2017 at 3:49PM. 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 At OSH, NIHSS 3, non-con trast CT obtained there w/out bleed. Transferred to [facility] for HLOC, but by time of arrival [...] at goal. She was educated that if amanda zeng has another similar episode in the future, [...] Discharge Instructions/Recommendations: You were [facility] at [facility] in the [facility]. We suspect that you had a Transient Ischemic Attack, which is a warning sign that you are at risk for a stroke. Melina griceldaent of your diabetes, high blood pres sure and high cholesterol are very important to preventing future strokes, so it is very important that you take the medications prescribed to you during this hos pital stay. Equally important is stoppin g all tobacco and drug use. You will need to follow up with a stroke doctor or GARDEN TRACTOR MECHANIC to prevent a future stroke. It is [...] a follow-up appointment sched reza in the [facility] on 09/12/17 at 10:30 AM to follow up on management of your stroke. - Please call your PCP to schedule an ap pointment within 2-4 weeks for post- hospitalization follow-up and management of your overall health. Please call our nurse navigator Tory ([phone]) with any questions after discharge. Please take your discharge paperwork with you to your follow-up appointments. Returning back to work will be addressed at your follow-up appointment. Stroke clinic address: [facility] [address] , [address] [place] [address] I spent 35 minutes today discussing the above plan of care with the team and patient and answering all questions, as well as reconciling medications, coordinating follow up and discharge to home. Suspec t TIA with plan for secondary prevention as above. Less likely seizure given patient admits to recalling entire episode and transient DOOR TO DOOR SALES REPRESENTATIVE, and EEG findings. Paitent understands to return to call 911 if repeat episode or any new focal weakness numbness difficulty speaking or swallowing or vision changes or dizziness. Exam nonfocal today. Patient was not discharged before noon as she had been pendi ng EEG. Gita Méndez MD Assistance Professor, Vascular Neurology [phone] Extracted from:Title: Stroke History&Physical Author: Kameron Nguyễn MD Date: 08/24/17 Stroke History and Physical Chief Complaint: Left sided weakness HPI: 67 yo F wiht PMH of HTN, right SAH s/p R Pcomm clipping, asymptomatoc clipping of L Pcomm presented to [facility] with left sided weakness, left sided facial droop. LSN 11 am. She was at [facility] with the family and all of sudden [...] (prev MRN for more hx w/clipp ing [id number]) Family Medical History: No significant fam hx [...] intact. Cranial Nerves: PERRL__3__mm/brisk. EOMI , visual martin full, no facial asymmetry, facial sensation intact, [...] 2-neithe r 1c. LOC Commands open/close eyes, global regulatory affairs manager /release non-paretic hand; 0-both 1-one 2-neither 2. Best Gaze; 0-nl 1-partial 2-forced gaze 3. Visual Martin; 0-No visual loss. 1-Partial hemianop ia 2-Complete [...] asymptomatoc clipping of L Pcomm presented to [facility] with left sided weakness, left sided facial [...] Code THE FOLLOWING WERE PRESENT ON ADMISSION: HOCKEY SCOUT - Chronic Stroke, Seizures?, SAH rule out. [...] (None) Kameron Nguyễn MD Neurology PGY-3 MSO [id number] Vascular Neurology Fellow Addendum I saw and [...] E11.9 Type 2 diabetes mellitus without complications Plan of Care No Data Provided for This Section Social History Social History Date Source Social History TypeResponse 03/12/2016 [facility] Substance Abuse Use: None. Alcohol Current, Type [...]
--- OUTSIDE RECORDS SUMMARY | 2019-10-03 08:24 | XMS REPORT | Continuity of Care Document ---
:1950 Author Organization [facility] t Address [address] [place] [address] Care Team Providers Name Role Phone Srini FUENTES Attending Clinician Teena FUENTES Attending Clinician Doctor Unassigned, Name Attending Clinician Unavailable Violet Cavazos Attending Clinician Marco Truong Attending Clinician José Manuel Charles Attending Clinician Trve Wall Attending Clinician Teena FUENTES Admitting Clinician Violet Cavazos Admitting Clinician Marco Truong Admitting Clinician José Manuel Charles Admitting Clinician Fatou Marrero Admitting Clinician Problems Condition Condition Condition Status Onset Resolution Last Treating Co mments Source Name Details Category Date Date Treatment Clinician Date TIA Diagnosis Active 2017-12-09 Mem oria 08-24 11:24:00 l TIA 00:00: [place] 00 Active 08/24/2017 [facility] ESTEFANIA Diagnosis Active 2017-11-27 Memoria BILLING 08-24 09:54:00 l 00:00: [place] MAC 00 BILLING Active 08/24/2017 [facility] POSSIBLE Diagnosis Active 2017-08-24 M emoria STROKE 08-24 14:50:00 l POSSIBLE 00:00: Jimi flower STROKE 00 Active 08/24/2017 [facility] LEFT Diagnosis Active 2016-06-19 Mem oria POSTERIOR - 11:51:00 l COMMUNICAT LEFT 00:00: Jimi flower ING ARTERY POSTERIOR 00 ANEU COMMUNICAT ING ARTERY ANEU Active 06/07/2016 [facility] LFLT Diagnosis Active 2016-08-17 Mem oria TRANSFER -16 06:30:00 l #261-A LFLT 00:00: [place] TRANSFER 00 #[id number] Active 02/26/2016 [facility] SAH Diagnosis Active 2016-08-17 Mem oria -15 06:29:00 l SAH 23:30: [place] 00 Active 02/25/2016 [facility], Rehabilita tion Weakness Problem 2018-03-15 Mem oria 14:07:55 l Weakness Jimi n 03/15/2018 [facility] Hyperlipid Problem 2018-03-15 M emoria emia, 14:07:55 l unspecifie Jimi n d Hyperlipid emia, unspecifie d 03/15/2018 [facility] Type 2 Problem 2018-03-15 Memor ia diabetes 14:07:55 l mellitus Type 2 Jimi n with diabetes hyperglyce mellitus bart with hyperglyce bart 03/15/2018 [facility] Hypertensi Problem 2018-03-15 M emoria ve chronic 14:07:55 l kidney [place] disease Hypertensi with stage ve chronic 1 through kidney stage 4 disease chronic with stage kidney 1 through disease, stage 4 or chronic unspecifie kidney d chronic disease, kidney or disease unspecifie d chronic kidney disease 03/15/2018 [facility] Type 2 Problem 2018-03-15 Memor ia diabetes 14:07:55 l mellitus Type 2 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 chronic kidney disease 03/15/2018 [facility] Chronic Problem 2018-03-15 Derick rodney kidney 14:07:55 l disease, Chronic Jazmin nn stage 2 kidney (mild) disease, stage 2 (mild) 03/15/2018 [facility] Dependence Problem 2018-03-15 M emoria on renal 14:07:55 l dialysis [place] Dependence on renal dialysis 03/15/2018 [facility] detention Problem 2018-03-15 Me moria (current) 14:07:55 l use of Long [place] oral term hypoglycem (current) ic drugs use of oral hypoglycem ic drugs 03/15/2018 [facility] Diabetes Problem Resolve 2018-03-15 Me moria mellitus d 14:07:55 l (disorder) Diabetes He rmann mellitus (disorder) Resolved Problem 03/15/2018 [facility] Cerebral Problem Active 2018-03-15 Mem oria edema 14:07:55 l (disorder) Cerebral He rmann edema (disorder) Active Problem 03/15/2018 [facility] 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 14:07:55 l (disorder) Flaccid Her layton hemiplegia (disorder) Active Problem 03/15/2018 [facility] Hemorrhage Problem Active 2018-03-15 M emoria into 14:07:55 l subarachno Jimi n id space Hemorrhage of into neuraxis subarachno (disorder) id space of neuraxis (disorder) Active Problem 03/15/2018 [facility] Hyperosmol Problem Active 2018-03-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:07:55 l hypernatre Jimi n bart Hyperosmol (disorder) ality with hypernatre bart (disorder) Active Problem 03/15/2018 [facility] Hypertensi Problem Active 2018-03-15 M emoria ve 14:07:55 l disorder, [place] systemic Hypertensi arterial ve (disorder) disorder, systemic arterial (disorder) Active Problem 03/15/2018 [facility] Obstructiv Problem Active 2018-03-15 M emoria e 14:07:55 l hydrocepha Jimi n adam Obstructiv (disorder) e hydrocepha adam (disorder) Active Problem 03/15/2018 [facility] Respirator Problem Active 2018-03-15 M emoria y failure 14:07:55 l (disorder) Jimi n Respirator y failure (disorder) Active Problem 03/15/2018 [facility] Ventricula Problem Active 2018-03-15 M emoria r 14:07:55 l hemorrhage Jimi n (disorder) Ventricula r hemorrhage (disorder) Active Problem 03/15/2018 [facility] TRANSIENT Diagnosis Active 2017-12-09 Memoria CEREBRAL 11:24:00 l ISCHEMIC [place] ATTACK, TRANSIENT UNSP CEREBRAL ISCHEMIC ATTACK, UNSP Active [facility] NONTRAUMAT Diagnosis Active 2016-08-17 Memoria IC 06:29:00 l SUBARACHNO Jimi n ID NONTRAUMAT HEMORRHAGE IC , UN SUBARACHNO ID HEMORRHAGE , UN Active [facility] NONTRAUMAT Diagnosis Active 2016-08-17 Memoria IC 06:29:00 l INTRACEREB Jimi n RAL NONTRAUMAT HEMORRHAGE IC , U INTRACEREB RAL HEMORRHAGE , U Active Rehabilita tion CEREBRAL Diagnosis Active 2016-06-19 M emoria ANEURYSM, 11:51:00 l NONRUPTURE CEREBRAL He rmann D ANEURYSM, NONRUPTURE D Active [facility] Other Problem 2018-03-15 2018-03-15 M emoria specified 09-05 14:07:55 14:07:55 l disorders Other 02:58: Jimi n of brain specified 50 disorders of brain 8 03/15/2018 [facility] Allergies, Adverse Reactions, Alerts This patient has no known allergies or adverse reactions. Social History Social Habit Start Date Stop Date Quantity Comments Source Social History 2016-03-12 2016-03-12 [facility] wanda 04:05:16 04:05:16 Medications Ordered Filled Start Stop Current Ordering Indication Dosage Frequency Signature Comments Components Source Medication Medication Date Date Medication? Clinician (SIG) Name Name Metformin 2018-0 Yes 1,250 mg, Mem oria hydrochlori -17 PO, l de 1000 MG 21:02: BID-Meals, H wanda Oral Tablet 17 # 180 tab, 1 Refill(s), Pharmacy: [id number] Plavix 2018-0 No 75 mg, Memoria 08-26 Route: PO, l 14:00: Drug form: [...] 00 # 270 tab, 1 Refill(s), Pharmacy: [id number] clopidogrel Yes 75 mg = 1 M emoria 75 mg oral 7-16 tab, PO, l tablet 21:58: Daily, # [place] 00 90 tab, 1 Refill(s), Pharmacy: [id number] lisinopril Yes 20 mg = 1 Me moria 20 mg oral 7-16 tab, PO, l tablet 18:11: Daily, 0 [place] 00 Refill(s) Metformin No 1,000 mg = Me moria hydrochlori 7-16 1 tab, PO, l de 1000 MG 18:11: BID-Meals, H ermann Oral Tablet 00 # 30 tab, 0 Refill(s) lovastatin Yes 10 mg = 1 Me moria 10 mg oral 7-16 tab, PO, l tablet 18:11: Daily, 0 [place] 00 Refill(s) glimepiride Yes 4 mg = 1 Me moria 4 MG Oral 7-16 tab, PO, l Tablet 18:11: Daily, 0 [place] [Amaryl] 00 Refill(s) Insulin No Notes: Memoria [...] Memoria 7-16 (Same As: l 17:00: Plavix) [place] Tylenol No Notes: Do Memor ia 7-16 not exceed l 05:45: 4 gm/day. [place] (Same as: Tylenol) Saline No Notes: Memoria Flush 0.9% 7-16 (Same as: l 02:00: BD [place] Posiflush) atorvastati No Notes: Derick rodney n 7-16 Same as l 02:00: Lipitor [place] 00 heparin No Notes: Memoria 7-15 porcine l 21:00: heparin [place] Aspirin 81 No Notes: Do Me moria MG Enteric 7-15 not crush l Coated 20:00: or chew. [place] Tablet 00 (Same As: Ecotrin) Saline No Notes: Memoria Flush 0.9% 7-15 (Same as: l 19:44: BD [place] 00 Posiflush) iodixanol No 100 mL, Memor ia 7-15 Route: l 19:16: IVP, Drug Form: SOLN, kg, ONCALL, STAT, Start date: 08/24/17 14:16:00 CDT, Duration: 1 doses or times, Dose = 2.2ml/kg, Max dose = 100ml -- "To be infused by Radiology Staff ONLY" Saline No Notes: Memoria Flush 0.9% 7-15 (Same as: l 19:05: BD [place] 00 Posiflush) Ondansetron Yes 4 mg = 1 Me moria 4 MG Oral 5-11 tab, PO, l Tablet 14:55: Q8H, PRN [place] [Zofran] 00 Nausea/vom iting, X 10 day, [...] Posiflush Sterile sennosides, No Notes: Derick rodney FDC 5-11 (Same as: l 02:00: Senokot) Docusate No Notes: Memoria 5-11 (Same as: l 02:00: Colace) (Do Not Crush) Tylenol No Notes: Do Memor ia 5-11 not exceed l 00:10: 4 gm/day. [place]ain 00 (Same as: Tylenol) Insulin No 60 Memoria regular 5-10 units) l 21:10: WASTE: F/P [place] - Black; E - Municipal Trash Bin Stable for 28 days at room temperatur e Expires in days from ____Date Glucagon 0 No 1 mg, Memoria 5-10 Route: IM, l 21:10: Drug form: [place] 00 PDR/INJ, PRN, Dosing Weight 72.727, kg, PRN Blood Glucose Results, Start date: 06/19/16 16:10:00 CDT, Duration: 30 day, Stop date: 07/19/16 16:09:00 CDT Dextrose 2017 No 25 gm, 50 Derick rodney 50% Syringe 5-10 mL, Route: l 21:10: IVP, Drug [place] 00 Form: INJ, Dosing Weight 72.727, kg, [...] WASTE: F/P l 18:36: - Sink; E [place] 00 - Municipal Trash Bin sodium No [...] Oxide 5-10 (Same as: l 18:36: Mag-Ox [place] 00 400) Magnesium oxide 255lt=860l g elemental magnesium Dose=____m g magnesium oxide (___mg elemental magnesium) potassium No Notes: Memori a chloride 5-10 (Same as: l 18:36: Potassium [place] 00 Chloride) Calcium No Notes: Memoria Carbonate 5-10 (Same As: l 500 MG 18:36: Tums) [place] Chewable 00 Calcium Tablet Carbonate 500 mg = 200 mg elemental calcium Dose = mg calcium carbonate ( mg elemental calcium) Calcium No Notes: Memoria Gluconate 5-10 WASTE: F/P l 18:36: - Sink; E [place] - Municipal Trash Bin Sodium No 1,000 mL, Memori a Chloride 5-10 Rate: 75 l 0.154 18:36: ml/hr, [place] MEQ/ML 00 Infuse Injectable over: 13.3 Solution [...] ia 350 5-10 Route: l 15:26: INTRAARTER [place] 00 IAL, Dosing Weight 72.727, kg, ONCE, Start date: 06/19/16 10:26:00 CDT, Stop date: 06/19/16 10:26:00 CDT Lipitor Yes PO, Daily, Derick rodney 5-10 0 l 11:21: Refill(s) Aspirin Yes 325 mg, Memoria 5-10 PO, 0 l 11:14: Refill(s) [place] 00 ceFAZolin No Notes: Memori a 5-10 Same as: l 06:00: Ancef [place] 00 Acetaminoph Yes 650 mg, Mem oria en 2-16 PO, Q6H, l 18:35: PRN Pain [place] 00 Score 1-5, 0 Refill(s) Trazodone Yes [...] needed for itching, Start date: 03/24/16 12:08:00 RETAIL PRESENTATION SPECIALIST, Duration: 30 day, Stop date: 04/23/16 12:07:00 CDT Eucerin No Notes: Memoria Plus 2-12 (Same as: l topical 18:08: Cetaphil Jimi n lotion 00 Lotion) Nimodipine No Notes: Memor ia 2-11 (Same as l 03:00: Nimodipine [place] oral suspension 30mg/ml) Instill dose into NG tube and then flush with 30ml of NS emollients, No Notes: Derick rodney topical 2-10 (Same as: l lotion 02:00: Cetaphil [place] 00 Lotion) SMOG Enema No Notes: Non M emoria 03-21 formulary l 22:50: item saline for irrigation (1L bottle) 100 mL, mineral oil 100 mL, glycerine 100 mL. Dispense (300 ml) in 1L NS bottle Bisacodyl No Notes: Memori a 2- (Same As: l 22:49: Dulcolax, [place] Bisco-Lax) magnesium No Notes: Memori a citrate 03-21 (Same as: l 58.2 MG/ML 22:49: Citrate of H ermann Oral Magnesia) Solution Concentrat ion: 1.745 gm / 30 mL mineral oil No 30 ml, Derick rodney 03-21 Route: PO, l 16:24: Drug Form: LIQ, Dosing Weight 75, kg, ONCE, Start date: 03/21/16 10:24:00 RETAIL PRESENTATION SPECIALIST, Stop date: 03/21/16 10:24:00 RETAIL PRESENTATION SPECIALIST Milk of No Notes: Memoria Magnesia - [...] Roll in l Human 18:27: palms of [place] hands gently; Do not shake vigorously . (Same as: NovoLOG) "single patient use only" WASTE: F/P - Black; E - Municipal Trash Bin Stable for 28 days at room temperatur e. Expires in days from ____Date Dextrose No 12.5 gm, Memor ia 50% Syringe 03-18 25 mL, l 18:27: Route: [place] 00 IVP, Drug Form: INJ, Dosing Weight 75, kg, PRN, PRN Blood Glucose Results, Start date: 03/18/16 12:27:00 RETAIL PRESENTATION SPECIALIST, Duration: 30 day, Stop date: 04/17/16 12:26:00 RETAIL PRESENTATION SPECIALIST Glucagon No 1 mg, Memoria 03-18 Route: IM, l 18:27: Drug form: [place] 00 PDR/INJ, PRN, Dosing Weight 75, kg, PRN Blood Glucose Results, Start date: 03/18/16 12:27:00 RETAIL PRESENTATION SPECIALIST, Duration: 30 day, Stop date: 04/17/16 12:26:00 RETAIL PRESENTATION SPECIALIST Insulin, No 4 unit, Memori a Aspart, 2- Route: l Human 04:18: SUB-Q, [place] 00 ONCE, Dosing Weight 75, kg, Start date: 03/15/16 22:18:00 RETAIL PRESENTATION SPECIALIST, Stop date: 03/15/16 22:18:00 RETAIL PRESENTATION SPECIALIST Insulin, No Notes: Memoria Aspart, 2-03 Roll in l Human 04:46: palms of [place] 00 hands gently; Do not shake vigorously . (Same as: NovoLOG) "single patient use only" WASTE: F/P - Black; E - Municipal Trash Bin Stable for 28 days at room temperatur e. Expires in days from ____Date Cipro No Notes: May Memori a 2-02 interfere l 17:00: w/enteral [place] 00 feedings - Take 1 hr before [...] Memoria regular 03-13 Route: l 17:30: SUB-Q, K[place] TID-Before Meals, Dosing Weight 75, kg, Start date: 03/13/16 11:30:00 RETAIL PRESENTATION SPECIALIST, Duration: 30 day, Stop date: 04/12/16 6:30:00 RETAIL PRESENTATION SPECIALIST Insulin No Notes: Memoria Glargine 03-13 Same as: l 17:30: Lantus) Do not hold insulin without contacting prescriber WASTE: F/P - Black; E - Municipal Trash Bin Glucagon No 1 mg, Memoria 03-13 Route: IM, l 16:07: PRN, Dosing Weight 75, kg, PRN Blood Glucose Results, Start date: 03/13/16 10:07:00 RETAIL PRESENTATION SPECIALIST, Duration: 30 day, Stop date: 04/12/16 10:06:00 RETAIL PRESENTATION SPECIALIST Dextrose No 25 mL, Memoria 50% Syringe 03-13 Route: l 16:07: IVP, Dosing Weight 75, kg, PRN, PRN Blood Glucose Results, Start date: 03/13/16 10:07:00 RETAIL PRESENTATION SPECIALIST, Duration: 30 day, Stop date: 04/12/16 10:06:00 RETAIL PRESENTATION SPECIALIST Melatonin 3 No Notes: Derick rodney MG Extended 03-13 (Same as: l Release 03:00: Melatonin) Herm Glucagon No 1 mg, Memoria 03-12 Route: IM, l 21:24: Drug form: [place] PDR/INJ, PRN, Dosing Weight 75, kg, PRN Blood Glucose Results, Start date: 03/12/16 15:24:00 RETAIL PRESENTATION SPECIALIST, Duration: 30 day, Stop date: 04/11/16 15:23:00 RETAIL PRESENTATION SPECIALIST Dextrose No 25 gm, 50 Derick rodney 50% Syringe 1-31 mL, Route: l 21:24: IVP, Drug [place] 00 Form: INJ, Dosing Weight 75, kg, PRN, PRN Blood Glucose Results, Start date: 03/12/16 15:24:00 RETAIL PRESENTATION SPECIALIST, Duration: 30 day, Stop date: 04/11/16 15:23:00 RETAIL PRESENTATION SPECIALIST Insulin, No Notes: Memoria Aspart, - Roll in l Human 21:24: palms of [place] 00 hands gently; Do not shake vigorously . (Same as: NovoLOG) "single patient use only" WASTE: F/P - Black; E - Municipal Trash Bin Stable for 28 days at room temperatur e. Expires in days from ____Date sennosides, No Notes: Derick rodney FDC 03-12 (Same as: l 18:00: Senokot) [place] Saline No Notes: Memoria Flush 0.9% 03-12 (Same as: l 15:00: BD [place] Posiflush) Keppra No Notes: Memoria - (Same l 15:00: as:Keppra) [place] 00 Buspar No Notes: Memoria - (Same As: l 14:00: BuSpar) [place] insulin, No Notes: Memoria isophane 03-12 Roll in l 14:00: palms of [place] 00 hands gently; Do not shake vigorously . (Same as: Humulin N) Do not hold insulin without contacting prescriber WASTE: F/P - Black; E - Municipal Trash Bin Stable for 28 days at room temperatur e Expires in days from ____Date Miralax No Notes: Memoria 1-31 Dissolve l 14:00: in 8 oz of [place] water or juice. (Same as: Miralax) Docusate No Notes: Memoria 1-31 (Same as: l 14:00: Colace) [place] (Do Not Crush) Insulin, No Notes: Memoria [...] 1-31 mL, Route: l 09:15: IVP, Drug K[place] 00 Form: INJ, Dosing Weight 75, kg, PRN, PRN Blood Glucose Results, Start date: 03/12/16 3:15:00 RETAIL PRESENTATION SPECIALIST, Duration: 30 day, Stop date: 04/11/16 3:14:00 RETAIL PRESENTATION SPECIALIST Glucagon No 1 mg, Memoria 03-12 Route: IM, l 09:15: Drug form: [place] PDR/INJ, PRN, Dosing Weight 75, kg, PRN Blood Glucose Results, Start date: 03/12/16 3:15:00 RETAIL PRESENTATION SPECIALIST, Duration: 30 day, Stop date: 04/11/16 3:14:00 RETAIL PRESENTATION SPECIALIST Sodium 2016- No 1 gm, 1 Memoria Chloride 03-12 tab, l 1000 MG 06:00: Route: PO, Herm suhas Oral Tablet 00 Drug form: TAB, Q6H, Dosing Weight 90.009, kg, Start date: 03/12/16 0:00:00 RETAIL PRESENTATION SPECIALIST, Duration: 30 day, Stop date: 04/10/16 18:00:00 RETAIL PRESENTATION SPECIALIST Nimodipine No Notes: Memor ia 03-12 (Same as l 06:00: Nimodipine oral suspension 30mg/ml) Instill dose into NG tube and then flush with 30ml of NS heparin No Notes: Memoria 03-12 porcine l 06:00: heparin Seroquel No Notes: Memoria 03-12 (Same as: l 03:52: SEROquel) Tylenol No Notes: Max Derick rodney 03-12 acetaminop l 03:52: hen = Kain 00 4000mg/day (4 gm/day). (Same as: Tylenol) Saline No Notes: Memoria Flush 0.9% 03-12 (Same as: l 03:52: BD Posiflush) POLYETHYLEN Yes PO, Daily, Memoria E GLYCOL 1-30 0 l 3350 23:13: Refill(s) Kain Levetiracet Yes 500 mg = 5 Memoria am 100 1-30 mL, PO, l MG/ML Oral 23:13: Q12H, 0 Herm suhas Solution 00 Refill(s) insulin Yes 40 unit, Memori a isophane 1-30 SUB-Q, l (NPH) 100 23:13: Q8H, 0 Jimi n units/mL 00 Refill(s) human recombinant subcutaneou s suspension heparin Yes 5,000 unit Derick rodney 30 = 1 mL, l 23:13: SUB-Q, [place] 00 Q8H, 0 Refill(s) bisacodyl Yes 10 mg = 1 Mem oria 10 mg 30 supp, MA, l rectal 23:13: ONCE, PRN Jimi n suppository 00 Constipati on | once, 0 Refill(s) insulin, No Notes: Memoria isophane 03-10 Roll in l 22:00: palms of Kain [...] kg, Priority: NOW, Start date: 03/09/16 18:11:00 RETAIL PRESENTATION SPECIALIST, Duration: 30 day, Stop date: 04/08/16 18:00:00 RETAIL PRESENTATION SPECIALIST Ancef + 2017-0 No Notes: Memoria sodium 1-27 (Same As: l chloride 16:55: Ancef, Kain 0.9% INJ 00 Kefzol) 100 mL Cefazolin FOR IV SET ONLY MEDICATION WASTE Product Size: 1000 mg Product Wasted: ___ mg Sodium 2017-0 No 1,000 mL, Memori a Chloride 1-27 1,000 l 0.154 12:25: ml/hr, Kain MEQ/ML 00 Infuse Injectable Over: 1 Solution hr, Route: IV, 1,000, Drug form: INJ, ONCE, Priority: STAT, Dosing Weight 90.009 kg, Start date: 03/08/16 6:25:00 RETAIL PRESENTATION SPECIALIST, Duration: 1 doses or times, Stop date: 03/08/16 6:25:00 RETAIL PRESENTATION SPECIALIST Sodium 2017-0 No 250 mL, Memoria Chloride 1-26 250 ml/hr, l 0.154 20:24: Infuse [place] MEQ/ML 00 Over: 1 Injectable hr, Route: Solution IV, 250, Drug form: INJ, ONCE, Priority: STAT, Dosing Weight 90.009 kg, Start date: 03/07/16 14:24:00 RETAIL PRESENTATION SPECIALIST, Duration: 1 doses or times, Stop date: 03/07/16 14:24:00 RETAIL PRESENTATION SPECIALIST Sodium 2017-0 No 500 mL, Memoria Chloride 1-25 500 ml/hr, l 0.154 13:54: Infuse [place] MEQ/ML 00 Over: 1 Injectable hr, Route: Solution IV, 500, Drug form: INJ, ONCE, Priority: STAT, Dosing Weight 90.009 kg, Start date: 03/06/16 7:54:00 RETAIL PRESENTATION SPECIALIST, Duration: 1 doses or times, Stop date: 03/06/16 7:54:00 RETAIL PRESENTATION SPECIALIST Sodium 2017-0 No 500 mL, Memoria Chloride 1-25 500 ml/hr, l 0.154 12:30: Infuse [place] MEQ/ML 00 Over: 1 Injectable hr, Route: Solution IV, 500, Drug form: INJ, ONCE, Priority: STAT, Dosing Weight 90.009 kg, Start date: 03/06/16 6:30:00 RETAIL PRESENTATION SPECIALIST, Duration: 1 doses or times, Stop date: 03/06/16 6:30:00 RETAIL PRESENTATION SPECIALIST Racepinephr 2017-0 No Notes: Derick rodney ine 22.5 -24 (racepinep l MG/ML 09:00: hrine [place] Inhalant 00 *2.25% inh Solution 0.5ml SOLN) (Same as:S2) Dexamethaso No Notes: Derick rodney ne 03-05 Concentrat l 06:42: ion: [place] 00 4mg/ml Ondansetron No Notes: Derick rodney 03-04 (Same as: l 23:03: Zofran) [place] 00 MEDICATION WASTE Product Size: 4 mg Product Wasted: ___ mg Flumazenil No Notes: Memor ia 03-04 (Same as: l 23:03: Romazicon) Naloxone No Notes: Memoria 03-04 Same as l 23:03: Narcan [place] 00 Labetalol No 10 mg, 2 Derick rodney 03-04 mL, Route: l 23:03: IVP, Drug [place] 00 form: INJ, Q5Min, Dosing Weight 90.009, kg, PRN Elevated BP, Start date: 03/04/16 17:03:00 RETAIL PRESENTATION SPECIALIST, Duration: 5 doses or times, Stop date: Limited # of times esmolol No 10 mg, Memoria 03-04 Route: l 23:03: IVP, [place] 00 Q5Min, Dosing Weight 90.009, kg, PRN Other -See Comment, Start date: 03/04/16 17:03:00 RETAIL PRESENTATION SPECIALIST, Duration: 5 doses or times, Stop date: Limited # of times Morphine No Notes: Memoria 03-04 (Same l 23:03: as:MORPhin Kain 00 e Sulfate) Omnipaque No 150 ml, Memor ia 300 03-04 Route: l 22:39: INTRAARTER [place] 00 IAL, Dosing Weight 90.009, kg, ONCE, Start date: 03/04/16 16:39:00 RETAIL PRESENTATION SPECIALIST, Stop date: 03/04/16 16:39:00 RETAIL PRESENTATION SPECIALIST Ampicillin No Notes: Memor ia 03-04 (Same as: l 14:00: Principen) [place] 00 MEDICATION WASTE Product Size: 1000 mg Product Wasted: ___ mg Dulcolax No Notes: Memoria Laxative 03-04 (Same As: l 13:17: Dulcolax, [place] 00 Bisco-Lax) magnesium No Notes: Memori a [...] Weight 90.009 kg, Start date: 03/03/16 8:37:00 RETAIL PRESENTATION SPECIALIST, Duration: 1 doses or times, Stop date: 03/03/16 8:37:00 RETAIL PRESENTATION SPECIALIST Sodium No 500 mL, Memoria Chloride 22 500 ml/hr, l 0.154 03:40: Infuse [place] MEQ/ML 00 Over: 1 Injectable hr, Route: Solution IV, 500, Drug form: INJ, ONCE, Priority: STAT, Dosing Weight 90.009 kg, Start date: 03/02/16 21:40:00 RETAIL PRESENTATION SPECIALIST, Duration: 1 doses or times, Stop date: 03/02/16 21:40:00 RETAIL PRESENTATION SPECIALIST Tylenol No Notes: Max Derick rodney 03-02 acetaminop l 16:25: hen = [place]ain 00 4000mg/day (4 gm/day). (Same as: Tylenol) Dulcolax No Notes: Memoria Laxative 03-02 (Same As: l 15:14: Dulcolax, [place] 00 Bisco-Lax) Sodium No 1,000 mL, Memori a Chloride 03-02 1,000 l 0.154 15:04: ml/hr, [place] MEQ/ML 00 Infuse Injectable Over: 1 Solution hr, Route: IV, 1,000, Drug form: INJ, ONCE, Priority: STAT, Dosing Weight 90.009 kg, Start date: 03/02/16 9:04:00 RETAIL PRESENTATION SPECIALIST, Duration: 1 doses or times, Stop date: 03/02/16 9:04:00 RETAIL PRESENTATION SPECIALIST Dexamethaso No Notes: Derick rodney ne 1-21 Give with l 15:00: food. [place] 00 (Same As: Decadron) Zantac No Notes: Memoria 1-21 (Same l 03:00: as:Zantac) [place] 00 Take before or with meals Racepinephr [...] Memoria 1-20 microgram, l 03:21: 20 mL, [place] 00 Rate: Titrate, Start Dose: 50 microgram/ hr, Titration: 25 microgram/ hour every 15 minutes, Goal(s): RASS 0 to -1, Max Dose: 300 microgram/ hr, Route: IV, Dosing Weight 90.009 kg, Total Volume: 20, Start date: 02/29/16 21:21:00 C... Dexamethaso No Notes: Derick rodney ne 1-20 Give with l 03:00: food. [place] 00 (Same As: Decadron) insulin, No Notes: [...] Total Volume: 1,000, Start date: 02/29/16 10:01:00 RETAIL PRESENTATION SPECIALIST, Stop date: 03/30/16 10:00:00 RETAIL PRESENTATION SPECIALIST magnesium No Notes: Memori a citrate 1-19 (Same as: l 58.2 MG/ML 15:24: Citrate of H ermann Oral 00 Magnesia) Solution Concentrat ion: 1.745 gm / 30 mL Streptococc No Notes: Derick rodney us 1-19 (Same as: l pneumoniae 15:00: Prevnar Herm suhas serotype 1 00 13) capsular antigen diphtheria [id number] protein conjugate vaccine / Streptococc us pneumoniae serotype 14 capsular antigen diphtheria [id number] protein conjugate vaccine / Streptococc us pneumoniae [...] 1-19 500 ml/hr, l 0.154 05:36: Infuse [place] MEQ/ML 00 Over: 1 Injectable hr, Route: Solution IV, 500, Drug form: INJ, ONCE, Priority: STAT, Dosing Weight 90.009 kg, Start date: 02/28/16 23:36:00 RETAIL PRESENTATION SPECIALIST, Duration: 1 doses or times, Stop date: 02/28/16 23:36:00 RETAIL PRESENTATION SPECIALIST Sodium No 1,000 mL, Memori a Chloride 1-19 1,000 l 0.154 04:21: ml/hr, [place] MEQ/ML 00 Infuse Injectable Over: 1 Solution hr, Route: IV, 1,000, Drug form: INJ, ONCE, Priority: STAT, Dosing Weight 90.009 kg, Start date: 02/28/16 22:21:00 RETAIL PRESENTATION SPECIALIST, Duration: 1 doses or times, Stop date: 02/28/16 22:21:00 RETAIL PRESENTATION SPECIALIST Insulin No 60 [facility] regular 1-18 units) [...] Blood Glucose Results, Start date: 02/28/16 10:21:00 RETAIL PRESENTATION SPECIALIST, Duration: 30 day, Stop date: 03/29/16 10:20:00 RETAIL PRESENTATION SPECIALIST Glucagon No 1 mg, [facility]oria 1-18 Route: IM, l 16:21: Drug form: [place] 00 PDR/INJ, PRN, Dosing Weight 90.009, kg, PRN Blood Glucose Results, Start date: 02/28/16 10:21:00 RETAIL PRESENTATION SPECIALIST, Duration: 30 day, Stop date: 03/29/16 10:20:00 RETAIL PRESENTATION SPECIALIST insulin, No Notes: [facility] isophane 1-18 Roll in l 15:00: palms of [place] 00 hands gently; Do [...] Syringe 1-18 12.5 mL, l 12:56: Route: [place] 00 IVP, Drug Form: INJ, Dosing Weight 90.009, kg, PRN, PRN Abnormal Lab Result, Start date: 02/28/16 6:56:00 RETAIL PRESENTATION SPECIALIST, Duration: 30 day, Stop date: 03/29/16 6:55:00 RETAIL PRESENTATION SPECIALIST heparin No Notes: [facility] 1-18 porcine l 06:01: heparin Famotidine No Notes: [facility] ia 18 (Same as: l 03:00: Pepcid) Levetiracet No Notes: Derick rodney am 500 MG 02-27 (Same l Oral Tablet 03:00: as:Keppra) [place] [Keppra] Dexamethaso No Notes: Derick rodney ne 02-26 Give with l 18:00: food. [place] 00 (Same As: Decadron) chlorhexidi No Notes: Derick rodney ne 02-26 (Same As: l gluconate 18:00: Peridex) Herm suhas 1.2 MG/ML 00 Mouthwash Sodium No 1,000 mL, Memori a Chloride 02-26 1,000 l 0.154 08:42: ml/hr, [place] MEQ/ML 00 Infuse Injectable Over: 1 Solution hr, Route: IV, 1,000, Drug form: INJ, ONCE, Priority: STAT, Dosing Weight 90.009 kg, Start date: 02/27/16 2:42:00 RETAIL PRESENTATION SPECIALIST, Duration: 1 doses or times, Stop date: 02/27/16 2:42:00 RETAIL PRESENTATION SPECIALIST Cefazolin No Notes: [facility] a 02-26 (Same As: l 07:00: Ancef, [place] Kefzol) Cefazolin FOR IV SET ONLY MEDICATION WASTE Product Size: 1000 mg Product Wasted: _0_ mg sodium No Notes: [facility] chloride 3% 02-26 "Administe l INJ 500 mL 06:34: r by [place] 00 central venous catheter or a peripheral [...] 30 mL, 60 l MEQ/ML 04:47: ml/hr, [place] Injectable 00 Infuse Solution Over: 30 minutes, Route: IV, 30, Drug form: INJ, ONCE, Dosing Weight 90.009 kg, Start date: 02/26/16 22:47:00 RETAIL PRESENTATION SPECIALIST, Duration: 1 doses or times, Stop date: 02/26/16 22:47:00 RETAIL PRESENTATION SPECIALIST Mannitol No Notes: [facility] 02-26 (Same as: l 04:29: Osmitrol) [place] 00 Infuse through 5 micron or smaller filter WASTE: F/P - Sink; E - Municipal Trash Bin chlorhexidi No Notes: Derick rodney ne 02-26 (Same As: l gluconate 03:00: Peridex) Herm suhas 1.2 MG/ML 00 Mouthwash Calcium No Notes: [facility] Carbonate 02-26 (Same As: l 500 MG 02:51: Tums) [place] Chewable 00 Calcium Tablet Carbonate 500 mg = 200 mg elemental calcium Dose = mg calcium carbonate ( mg elemental calcium) Calcium No Notes: [facility] Gluconate 02-26 WASTE: F/P l 02:51: - Sink; E [place] 00 - Municipal Trash Bin Magnesium No Notes: [facility] a Sulfate 02-26 WASTE: F/P l 02:51: - Sink; E [place] - Municipal Trash Bin potassium No Notes: [facility] a phosphate-s 02-26 (Same as: l odium 02:51: Phos-NaK) [place] phosphate 00 Each 1.5 250 mg-280 gm pkt has mg-160 mg 250mg oral powder phosphorou for s. Mix reconstitut w/2.5oz ion water and stir. Magnesium No Notes: [facility] a Oxide 02-26 (Same as: l 02:51: Mag-Ox [place] 00 400) Magnesium oxide 313dw=89y g elemental magnesium Dose=____m g magnesium oxide (___mg elemental magnesium) potassium No Notes: [facility] a phosphate + 02-26 (Same as: l sodium 02:51: K [place] chloride 00 Phosphate. 0.9% INJ ) 1 mMol 250 mL phoshate has 1.47 mEq potassium Infuse over 4 hours sodium No 30 mmol, [facility] phosphate + 02-26 10 mL, l sodium 02:51: Route: [place] chloride 00 IVPB, PRN, 0.9% INJ Dosing 250 mL Weight 90.009, kg, PRN Abnormal Lab Result, Start date: 02/26/16 20:51:00 RETAIL PRESENTATION SPECIALIST, Duration: 30 day, Stop date: 03/27/16 20:50:00 RETAIL PRESENTATION SPECIALIST, FOR ICU USE ONLY potassium No Notes: [facility]ori a chloride 02-26 (Same as: l 02:51: Potassium Chloride) Dextrose No 12.5 gm, Memor ia 50% Syringe 02-26 25 mL, l 02:50: Route: [place] 00 IVP, Drug Form: INJ, Dosing Weight 90.009, kg, PRN, PRN Blood Glucose Results, Start date: 02/26/16 20:50:00 RETAIL PRESENTATION SPECIALIST, Duration: 30 day, Stop date: 03/27/16 20:49:00 RETAIL PRESENTATION SPECIALIST Insulin No Notes: [facility] regular 100 02-26 (Same as: l unit + 02:50: Humulin R Jimi n sodium 00 and chloride NovoLIN R) 0.9% INJ 99 WASTE: mL F/P - Black; E - Recommendo Trash Bin (Do not shake) Fentanyl No [...] not exceed l Hydrocodone 00:52: 4gm/day of [place] Bitartrate 00 acetaminop 10 MG Oral hen. Tablet (Same as: [[place] 10/325] 325/10) Ancef No 1 gm, [facility]oria 16 Route: l 23:15: IVPB, [place] 00 ONCE, Dosing Weight 90.009, kg, Start date: 02/26/16 17:15:00 RETAIL PRESENTATION SPECIALIST, Stop date: 02/26/16 17:15:00 RETAIL PRESENTATION SPECIALIST Ancef No 2 gm, [facility]oria 1-16 Route: IV, l 20:15: ONCE, [place] 00 Dosing Weight 90.909, kg, Start date: 02/26/16 14:15:00 RETAIL PRESENTATION SPECIALIST, Duration: 1 doses or times, Stop date: 02/26/16 14:15:00 RETAIL PRESENTATION SPECIALIST, Surgical Prophylaxi s Only; For patients < 120 kg Propofol 10 No 1,000 mg, M emoria MG/ML -16 100 mL, l Injectable 17:59: Rate: Jimi n Suspension 00 Titrate, Start Dose: 5 microgram/ kg/min, Titration: 5 microgram/ kg/min every 15 min, Goal(s): MAP 70-100, Max Dose: 50 microgram/ kg/min, Route: IV, Dosing Weight 90.909 kg, Total Volume: 100, Start date: 02/26/16 11:59:00 RETAIL PRESENTATION SPECIALIST,... Fentanyl No Notes: [facility] 1-16 (Same as: l 17:58: Sublimaze) Preservat cristina free. chlorhexidi No Notes: Derick rodney ne -16 (Same As: l gluconate 15:39: Peridex) Herm suhas 1.2 MG/ML 00 Mouthwash Ancef + No Notes: [facility] sodium -16 (Same As: l chloride 15:38: Ancef, [place] 0.9% INJ 00 Kefzol) 100 mL MEDICATION WASTE Product Size: 1000 mg Product Wasted: ___ mg Docusate No Notes: [facility] 1-16 (Same as: l 15:00: Colace) Famotidine No Notes: Memor ia -16 (Same as: l 15:00: Pepcid) sennosides, No Notes: Derick rodney FDC -16 (Same as: l 15:00: Senokot) Levetiracet No Notes: Derick rodney am -16 Same as l 15:00: Keppra [place] 00 Mix with 100 mL NS, LR or D5W MEDICATION WASTE Product Size: 500 mg Product Wasted: ___ mg Omnipaque 2017-0 No 150 ml, Memor ia 350 1-16 Route: l 14:56: INTRAARTER [place] 00 IAL, Dosing Weight 90.909, kg, ONCE, Start date: 02/26/16 8:56:00 RETAIL PRESENTATION SPECIALIST, Stop date: 02/26/16 8:56:00 RETAIL PRESENTATION SPECIALIST Nimodipine 2017-0 No Notes: Memor ia -16 (Same as l 12:00: Nimodipine oral suspension 30mg/ml) Instill dose into NG tube and then flush with 30ml of NS Dexamethaso 2016-0 No Notes: Derick rodney ne 02-25 Concentrat l 12:00: ion: [place] 00 4mg/ml Keppra 2016-0 No 500 mg, [facility]oria 16 Route: IV, l 11:39: ONCE, Dosing Weight 90.909, kg, Start date: 02/26/16 5:39:00 RETAIL PRESENTATION SPECIALIST, Stop date: 02/26/16 5:39:00 RETAIL PRESENTATION SPECIALIST Ondansetron 2017-0 No 4 mg, Mem[facility] ia 16 Route: l 11:31: IVP, Drug form: INJ, ONCE, Dosing Weight 90.909, kg, Priority: STAT, Start date: 02/26/16 5:31:00 RETAIL PRESENTATION SPECIALIST, Stop date: 02/26/16 5:31:00 RETAIL PRESENTATION SPECIALIST Morphine 2017-0 No 4 mg, [facility] 16 Route: l 11:31: IVP, ONCE, Dosing Weight 90.909, kg, Priority: STAT, Start date: 02/26/16 5:31:00 RETAIL PRESENTATION SPECIALIST, Stop date: 02/26/16 5:31:00 RETAIL PRESENTATION SPECIALIST Dextrose 2017-0 No 6.25 gm, Memor ia 50% Syringe 16 12.5 mL, l 10:09: Route: IVP, Drug Form: INJ, Dosing Weight 90.909, kg, PRN, PRN Abnormal Lab Result, Start date: 02/26/16 4:09:00 RETAIL PRESENTATION SPECIALIST, Duration: 30 day, Stop date: 03/27/16 4:08:00 RETAIL PRESENTATION SPECIALIST Regular 2017-0 No 60 [facility] Insulin, 1-16 units) l Human 100 10:09: WASTE: F/P He rmann UNT/ML 00 - Black; E Injectable - Solution Municipal Trash Bin Stable for 28 days at room temperatur e Expires in days from ____Date Sodium 2017-0 No 1,000 mL, Memori a Chloride 16 Rate: 75 l 0.154 10:09: ml/hr, [place] MEQ/ML 00 Infuse Injectable over: 13.3 Solution hr, Route: IV, Dosing Weight 90.909 kg, Total Volume: 1,000, Start date: 02/26/16 4:09:00 RETAIL PRESENTATION SPECIALIST, Duration: 30 day, Stop date: 03/27/16 4:08:00 RETAIL PRESENTATION SPECIALIST iodixanol No 100 mL, Mem[facility] ia 16 Route: l 09:43: IVP, Drug [place] 00 Form: SOLN, Dosing Weight 90.909, kg, ONCALL, STAT, Start date: 02/26/16 3:43:00 RETAIL PRESENTATION SPECIALIST, Duration: 1 doses or times, Dose = 2.2ml/kg, Max dose = 100ml -- "To be infused by Radiology Staff ONLY" Saline No Notes: [facility] Flush 0.9% 16 Same as: l 08:46: BD [place] 00 Posiflush Sterile Vital Signs Vital Name Observation Time Observation Value Comments Source Temperature Oral (F) 2017-08-26 22:04:00 98.0 F [facility] [place] Respitory Rate 2017-08-26 22:04:00 [facility] al [place] Systolic (mm Hg) 2017-08-26 22:04:00 Derick rial [place] Diastolic (mm Hg) 2017-08-26 22:04:00 Mem orial [place] Heart Rate 2017-08-26 22:04:00 [facility] [place] Heart Rate 2017-08-26 17:41:00 [facility] [place] Respitory Rate 2017-08-26 17:41:00 [facility] [place] Systolic (mm Hg) 2017-08-26 17:41:00 Derick rial [place] Diastolic (mm Hg) 2017-08-26 17:41:00 Mem orial [place] Temperature Oral (F) 2017-08-26 17:41:00 98.8 F [facility] [place] Temperature Oral (F) 2017-08-26 15:05:00 97.5 F [facility] [place] Heart Rate 2017-08-26 15:05:00 [facility] [place] Systolic (mm Hg) 2017-08-26 15:05:00 Derick rial [place] Diastolic (mm Hg) 2017-08-26 15:05:00 Mem o[facility] [place] Respitory Rate 2017-08-26 15:05:00 [facility] [place] Weight 2017-08-25 14:36:00 [facility] [place] BMI Calculated 2017-08-25 14:36:00 [facility] [place] Height 2017-08-25 14:36:00 134.62 cm [facility] [place] BMI Calculated 2017-08-24 22:40:00 [facility] [place] Height 2017-08-24 22:40:00 162.56 cm [facility] [place] Weight 2017-08-24 22:40:00 [facility] [place] Weight 2017-08-24 22:24:00 [facility] [place] BMI Calculated 2017-08-24 22:24:00 [facility] [place] Height 2017-08-24 22:24:00 162.56 cm [facility] [place] Weight 2016-06-20 14:40:00 [facility] [place] Respitory Rate 2016-06-20 13:35:00 [facility] [place] Systolic (mm Hg) 2016-06-20 13:00:00 Derick rial [place] Diastolic (mm Hg) 2016-06-20 13:00:00 Mem orial [place] Respitory Rate 2016-06-20 13:00:00 [facility] [place] Systolic (mm Hg) 2016-06-20 12:00:00 Derick rial [place] Diastolic (mm Hg) 2016-06-20 12:00:00 Mem o[facility] [place] Respitory Rate 2016-06-20 12:00:00 [facility] [place] Systolic (mm Hg) 2016-06-20 11:00:00 Derick rial [place] Diastolic (mm Hg) 2016-06-20 11:00:00 Mem o[facility] [place] BMI Calculated 2016-06-19 11:22:00 [facility] [place] Weight 2016-06-19 11:22:00 [facility] [place] Height 2016-06-19 11:22:00 162.56 cm [facility] [place] Heart Rate 2016-06-19 11:22:00 [facility] [place] Height 2016-06-18 16:25:00 162.56 cm [facility] [place] BMI Calculated 2016-06-18 16:25:00 [facility] [place] Weight 2016-06-18 16:25:00 [facility] [place] Temperature Oral (F) 2016-03-29 13:26:00 97.9 F [facility] [place] Systolic (mm Hg) 2016-03-29 13:26:00 Derick rial [place] Diastolic (mm Hg) 2016-03-29 13:26:00 Mem o[facility] [place] Heart Rate 2016-03-29 13:26:00 [facility] [place] Temperature Oral (F) 2016-03-29 05:10:00 98.5 F [facility] [place] Heart Rate 2016-03-29 05:10:00 [facility] [place] Systolic (mm Hg) 2016-03-29 05:10:00 Derick rial [place] Diastolic (mm Hg) 2016-03-29 05:10:00 Mem orial [place] Respitory Rate 2016-03-29 05:10:00 [facility] al [place] Respitory Rate 2016-03-28 20:00:00 [facility] al [place] Systolic (mm Hg) 2016-03-28 20:00:00 Derick rial [place] Diastolic (mm Hg) 2016-03-28 20:00:00 Mem orial [place] Temperature Oral (F) 2016-03-28 20:00:00 98.3 F [facility] [place] Heart Rate 2016-03-28 20:00:00 [facility] [place] Respitory Rate 2016-03-28 12:35:00 [facility] [place] Weight 2016-03-12 04:00:00 [facility] [place] BMI Calculated 2016-03-12 04:00:00 [facility] [place] Height 2016-03-12 04:00:00 162.56 cm [facility] [place] Weight 2016-03-12 03:52:00 [facility] [place] BMI Calculated 2016-03-12 03:52:00 [facility] al [place] Height 2016-03-12 03:52:00 162.56 cm [facility] [place] Systolic (mm Hg) 2016-03-12 02:39:00 Derick rial [place] Diastolic (mm Hg) 2016-03-12 02:39:00 Mem orial [place] Respitory Rate 2016-03-12 02:39:00 [facility] al [place] Heart Rate 2016-03-12 02:39:00 [facility] [place] Temperature Oral (F) 2016-03-12 02:39:00 100.1 F [facility] [place] Systolic (mm Hg) 2016-03-12 02:00:00 Derick rial [place] Diastolic (mm Hg) 2016-03-12 02:00:00 Mem orial [place] Systolic (mm Hg) 2016-03-11 22:55:00 Derick rial [place] Diastolic (mm Hg) 2016-03-11 22:55:00 Mem orial [place] Heart Rate 2016-03-11 22:55:00 [facility] [place] Respitory Rate 2016-03-11 22:55:00 Memori al [place] Temperature Oral (F) 2016-03-11 22:55:00 98.3 F [facility] [place] Temperature Oral (F) 2016-03-11 18:04:00 98.0 F [facility] [place] Respitory Rate 2016-03-11 18:04:00 [facility] [place] Heart Rate 2016-03-11 18:04:00 [facility] [place] Height 2016-03-01 20:30:00 160.02 cm [facility] [place] Height 2016-03-01 16:58:00 160.02 cm [facility] [place] Height 2016-03-01 13:44:00 160.02 cm [facility] [place] Weight 2016-02-26 22:08:00 [facility] [place] BMI Calculated 2016-02-26 22:08:00 [facility] [place] Weight 2016-02-26 08:37:00 [facility] [place] BMI Calculated 2016-02-26 08:37:00 [facility] al [place] Procedures Procedure Date / Time Performing Clinician Source Performed Selective catheter 2016-06-19 15:02:17 [facility] [place] placement, common carotid or innominate artery, unilateral, any approach, with angiography of the ipsilateral extracranial carotid circulation and all associated radiological supervision and interpretation, includes angiography of the c Selective catheter 2016-06-19 15:02:17 [facility] [place] placement, internal carotid artery, unilateral, with angiography of the ipsilateral intracranial carotid circulation and all associated radiological supervision and interpretation, includes angiography of the extracranial carotid and ce Selective catheter 2016-03-04 21:55:00 [facility] [place] placement, vertebral artery, unilateral, with angiography of the ipsilateral vertebral circulation and all associated radiological supervision and interpretation, includes angiography of the cervicocerebral arch, when performed Craniotomy and clipping of Memor ial [place] intracranial aneurysm Repair of aneurysm by [facility] Encounters Start End Encounter Admission Attending Care Care Encounter Source Date/Time Date/Time Type Type Clinicians Facility Department ID 2019-04-04 2019-04-05 Emergency Bryan Milligan [facility] [id number] 05:56:22 14:32:00 Teena Corby [place] [id number] [place] [id number] [place] [id number] 2019-04-04 2019-04-04 Orders Doctor MARY ANN [id number] 00:00:00 00:00:00 Only Unassigned, FOREIGN [id number] [place] [facility] [id number] 2017-08-24 2017-08-26 Outpatient Dirk [facility] [id number] 14:08:00 18:16:00 Veronika 67 Violet 2016-06-19 2016-06-20 Outpatient Dionne Ji [facility] [id number] 05:36:00 12:22:00 Marco 01 2016-03-11 2016-03-29 Outpatient FrancoisAriananewton [facility] [id number] 21:51:00 12:50:00 os, Boom 00 José Manuel 2016-02-26 2016-03-11 Outpatient Mae [facility] [id number] 02:37:00 21:43:00 Rayray Karimi 67 Results Test Description Test Time Test Comments Results Result [facility] e Comments SCR MAMM - SCR MAMM BILATERAL BILATERAL DAVE 6 DAVE CAD CAD DIGITAL 15:55:39 DIGITALBILATERAL DIGITAL SCREENING MAMMOGRAM 3D/2D WITH CAD: 12/10/2017CLINICAL: Asymptomatic. Digital breast tomosynthesis was performed in addition to routine CC and MLO views. Current mammographic images were evaluated by either a [employer] M-Vu or a [employer] ImageChecker CAD (computer aided detection system). No [...] mammography in one year. Deshaun jacinto/jose:12/16/2017 15:55:39 Dye Range Feeder: Nneka Kahn MM, [facility] Mammographyletter sent: BIRADS 1-2 Normal Mammogram BI-RADS: 2 Benign CHEM PANEL 2017-08-10 5.0 [facility] 7 [place] 06:55:00 CHEM PANEL 2017-08-10 2.1 [facility] 7 [place] 06:55:00 CHEM PANEL 2017-08-10 76 [facility] 7 [place] 06:55:00 CHEM PANEL 2017-08-10 0.81 [facility] 7 [place] 06:55:00 CHEM PANEL 2017-08-10 132 [facility] 7 [place] 06:55:00 CHEM PANEL 2017-08-10 140 [facility] 7 [place] 06:55:00 CHEM PANEL 2017-08-10 4.6 [facility] 7 [place] 06:55:00 CHEM PANEL 2017-08-10 19 [facility] 7 [place] 06:55:00 CHEM PANEL 2017-08-10 25 [facility] 7 [place] 06:55:00 CHEM PANEL 2017-08-10 9.2 [facility] 7 [place] 06:55:00 CHEM PANEL 2017-08-10 104 [facility] 7 [place] 06:55:00 CHEM PANEL 2017-08-10 15.6 [facility] 7 [place] 06:55:00 HEMATOLOGY 2017-08-10 7.2 [facility] 7 [place] 06:55:00 HEMATOLOGY 2017-08-10 51.4 [facility] 7 [place] 06:55:00 HEMATOLOGY 2017-08-10 38.6 [facility] 7 [place] 06:55:00 HEMATOLOGY 2017-08-10 3.2 [facility] 7 [place] 06:55:00 HEMATOLOGY 2017-08-10 1.9 [facility] 7 [place] 06:55:00 HEMATOLOGY 2017-08-10 0.9 [facility] 7 [place] 06:55:00 HEMATOLOGY 2017-08-10 4.2 [facility] 7 [place] 06:55:00 HEMATOLOGY 2017-08-10 0.2 [facility] 7 [place] 06:55:00 HEMATOLOGY 2017-08-10 0.1 [facility] 7 [place] 06:55:00 HEMATOLOGY 2017-08-10 0.6 [facility] 7 [place] 06:55:00 HEMATOLOGY 2017-08-10 8.2 [facility] 7 [place] 06:55:00 HEMATOLOGY 2017-08-10 38.7 [facility] 7 [place] 06:55:00 HEMATOLOGY 2017-08-10 4.18 [facility] 7 [place] 06:55:00 HEMATOLOGY 2017-08-10 13.1 [facility] 7 [place] 06:55:00 HEMATOLOGY 2017-08-10 9.1 [facility] 7 [place] 06:55:00 HEMATOLOGY 2017-08-10 13.1 [facility] 7 [place] 06:55:00 HEMATOLOGY 2017-08-10 230 [facility] 7 [place] 06:55:00 HEMATOLOGY 2017-08-26 06:55:00 Test Item Value Reference Range Interpretation Comme nts MCH (test code = MCH) 31.4 pg 27.0-31.0 [facility] AxldtxnFSBTUQCRWM2984-40-23 06:55:0033.9[facility] HermannHEMATOLOGY 2017-08-26 06:55:0092.4[facility] HermannPARATHYROID IUCAGIG9989-24-77 06:55:00 1.11[facility] HermannPARATHYROID KCJJWHS6886-71-31 06:55:001.11[facility] [place] FCLYAV6720-29-97 20:04:00 Test Item Value Reference Range Interpretation Comments VLDL (test code = VLDL) 22 1 [facility] BkaosdtVUUGZB5547-41-16 20:04:0067[facility] HnkcsflIWPIXW1865-85-87 20:04:0030[facility] OxgnpwjOQLKQD6475-15-14 20:04:90701Onilffbg HermannLIPIDS 2017-08-24 20:04:90784Qpbzsbnr LefyxudDTLSOK3329-43-42 20:04:00 Test Item Value Reference Range Interpretation Comments CHD Risk (test code = CHD Risk) 3.97 1 3.90-5.80 [facility] HermannSPECIAL WJNQDWDPL7166-77-45 20:04:008.1[facility]annURINE AND HYVWL4503-88-20 20:04:00None Seen (08/24/17 3:04 PM)[facility]ann[facility] AND NDJBC7596-02-68 20:04:00None Seen (08/24/17 3:04 PM)[facility] AND PPVTR8022-92-40 20:04:000.2[facility] AND [id number] 20:04:00 Negative (08/24/17 3:04 PM)[facility] AND KEGHG1516-48-70 20:04:00 Negative (08/24/17 3:04 PM)[facility] AND [id number] 20:04:00 Negative (08/24/17 3:04 PM)[facility] AND [id number] 20:04:00 Negative *NA*(08/24/17 3:04 PM)[facility] [id number] 20:04:00 Test Item Value Reference Range Interpretation Comments UA pH (test code = UA pH) 6.0 1 5.0-8.0 [facility] AND [id number] 20:04:00 Test Item Value Reference Range Interpretation Comments UA Spec Grav (test code = UA Spec 1.010 1 Grav) [facility] [id number] 20:04:00Clear (08/24/17 3:04 PM) [facility] AND [id number] 20:04:00Yellow *NA*(08/24/17 3:04 PM) [facility] HermannCARDIAC [id number] 19:18:26<0.02[facility] [place] CARDIAC JWLZYVF2583-75-74 19:18:2688[facility] KotfkzsGWUJOHESQUOU9615-42-68 19:18:2615.5[facility] PxwacpgGKEGCLTKJYSM3189-73-32 19:18:2623[facility] [place] UMCAZIKCUIUX9599-80-86 19:18:269.0[facility] UfqnnpfXVHVUYYSBCDN2927-20-18 19:18:35719Xamdjinj SyatyssFMOVNPBEABCC5300-97-20 19:18:2677[facility] [place] YWXIDOHUJIOB9888-82-94 19:18:264.5[facility] GpozsccVYSJWUPGKXEO7282-63-42 19:18:38096Gcbvsewd HmizbnxRFDLEAEVQLZW0416-37-29 19:18:2615[facility] [place] SUXFTMRVVEJS6218-23-68 19:18:260.80[facility] YayllfhNOOBXWHSPMLJ6108-37-74 19:18:2692[facility] GbdvfdxFZKUYQMSLD7522-56-85 19:18:260.7[facility] [place] UAUSEUJGBX6217-34-63 19:18:260.7[facility] GcnpebkQDHMQFKLJZ0035-15-22 19:18:267.1 [facility] FhvlkvtHZLLJACSUZ5183-10-50 19:18:260.1[facility] HermannHEMATOLOGY 2017-08-24 19:18:260.1[facility] YcvqrdlEIQKHVIZSM6578-33-89 19:18:264.4[facility] XtqyggnSNSOOBOKRY9294-57-11 19:18:2657.1[facility] GwmcapbCXFAGUVPJJ1917-52-76 19:18:2635.6[facility] BicuakhJRVDWGHZQH1212-29-14 19:18:265.6[facility] [place] AEHUZBAUXD4156-35-80 19:18:261.0[facility] LruunqoDTHKOQGQEJ4094-17-50 19:18:26 Test Item Value Reference Range Interpretation Comments PT (test code = PT) 13.2 s 12.0-14.7 [facility] YosbprbODUAEQOPKO6909-82-94 19:18:26 Test Item Value Reference Range Interpretation Comments INR (test code = INR) 1.00 1 0.85-1.17 [facility] XpsuhtcXUAXUZYBTV4723-95-69 19:18:268.0[facility] HermannHEMATOLOGY 2017-08-24 19:18:2633.4[facility] YgifwylMWRNMCHHYR3285-57-78 19:18:2613.3[facility] UucbuvcXMGHDMBREO7437-24-90 19:18:26 Test Item Value Reference Range Interpretation Comments MCH (test code = MCH) 31.0 pg 27.0-31.0 [facility] TtjqeqmBTSBKNGYZQ5246-89-13 19:18:63811Xedsyffn HermannHEMATOLOGY 2017-08-24 19:18:2640.1[facility] PipglvlXDJTBUJNRH7713-29-68 19:18:2613.4[facility] VvwkmtlDQKHEWYACM0204-14-73 19:18:2692.8[facility] ZtqmvofNRASCOAFBR3144-44-19 19:18:2612.4[facility] TsvttejJADUMPIZNE9262-69-13 19:18:264.32[facility] [place] CIOETWNAHH0128-71-79 19:18:26 Test Item Value Reference Range Interpretation Comments PTT (test code = PTT) 25.6 s 22.9-35.8 [facility] HermannCHEM CKCZK7730-80-76 04:36:0089[facility] HermannCHEM PANEL 2016-06-20 04:36:0015.2[facility] HermannCHEM LATJF7399-42-07 04:36:008.7[facility] HermannCHEM XDSPP5052-15-76 04:36:000.71[facility] HermannCHEM KOZLS7946-85-57 04:36:004.2[facility] HermannCHEM VPTGZ6222-44-25 04:36:84524Yhlvklzs HermannCHEM DPKVL5254-43-80 04:36:0025[facility] HermannCHEM TFCKC3719-72-08 04:36:42432 [facility] HermannCHEM VPPSM9585-25-04 04:36:21889Nkpzdrif HermannCHEM PANEL 2016-06-20 04:36:0013[facility] HermannCHEM VZOPV3849-23-09 04:36:002.1[facility] HermannCHEM WQIDQ0223-55-17 04:36:003.3[facility] HtdnanlHBWNNDCNFA1201-27-73 04:36:004.34[facility] LvevnysWHBBIMQYMP1445-78-44 04:36:009.5[facility] [place] CHLNQSOITM3193-06-69 04:36:0013.4[facility] ZgucqpuCMCNSQDQJI2127-17-70 04:36:00 33.8[facility] CzvzyjnJBUDYUECQR4264-03-49 04:36:00 Test Item Value Reference Range Interpretation Comments MCH (test code = MCH) 30.8 pg 27.0-31.0 [facility] XcdzbybQGHDLTRVHR2730-15-08 04:36:0013.2[facility]annHEMATOLOGY 2016-06-20 04:36:0091.0[facility] QtcunebORSTKOZCTF3111-25-35 04:36:0039.5[facility] LahminlKXTNGUVKPJ9101-96-93 04:36:47654Exfdfqmr FiuoifgNYFYKOFTZV3523-35-94 04:36:008.0[facility] AqqijinCDBGDMAOGC8594-75-24 04:36:0077.7[facility] NMIYENHDXD7341-47-21 04:36:0019.0[facility] IippctgXRISOKLNTA0304-23-40 04:36:00 0.3[facility] GymfeusGNCQPEUZBH3661-18-18 04:36:001.8[facility] HermannHEMATOLOGY 2016-06-20 04:36:003.1[facility] QteiyenCLATRJAJPQ9243-29-77 04:36:000.2[facility] JxugxhbTZVFFQDVGM0662-31-50 04:36:007.4[facility] HermannPARATHYROID PROFILE 2016-06-20 04:36:001.10[facility] HermannPARATHYROID JCUEURF4484-80-84 04:36:00 1.10[facility] HermannBACTERIAL - UAXHJEBI9272-96-80 20:52:00Negative (06/19/16 3:52 PM)[facility] IpubogjKTMGDZOFTD6467-54-97 12:54:00 Test Item Value Reference Range Interpretation Comments PTT (test code = PTT) 27.8 s 22.9-35.8 [facility] EztdkmeTNGKOJQWNT1835-41-38 12:54:00 Test Item Value Reference Range Interpretation Comments PT (test code = PT) 14.0 s 12.0-14.7 [facility] EqiucglQFTUTLTTIZ7951-50-83 12:54:001.06[facility]annHEMATOLOGY 2016-06-19 12:54:09053Mblfpnnj OijhpnaKZVWINSNJT7987-35-24 12:54:90321Lrrbxygo SsaghmlZAWFBAOUFQYG3868-07-63 11:51:004.2[facility] JvhrnfxNWKVWMWQSLKD6008-40-34 11:51:000.61[facility] JblvwkgAJTDAZLTTEZC4186-33-46 11:51:96565Wwyxvyvx [place] PAUVXHKSUMDN2754-43-52 11:51:0095[facility] ZynhwokKCXVODJLJMZE9815-24-53 11:51:00 103[facility] PjmjiktIGGRHJPNLKNU2373-01-50 11:51:0026[facility]annELECTROLYTES 2016-[facility]-19 11:51:009.2[facility] XpomcguAQZQQVFZNMRH0187-65-26 11:51:0014.2 [facility] KvbiklxLVIATYISHBLY2051-99-69 11:51:0020[facility]annELECTROLYTES 2016-06-19 11:51:39473Eimmurfw LjxbzanKPNOHTTLQN9581-34-81 11:51:95331Wacfkfpt EqtkihzKOZNWUPUTC8209-54-10 11:51:0012.3[facility] RvgxvrdMMNIUNYVYC2843-20-25 11:51:0033.1[facility] YamiufoDPRAYWEMDR6058-02-00 11:51:007.9[facility] VNISIWWNMF3185-00-34 11:51:0040.4[facility] JyymsvtBFDIZYIKCN4088-29-12 11:51:00 13.4[facility] SpvbqqtRILUEDXPGL5751-60-66 11:51:0010.0[facility]annHEMATOLOGY 2016-06-19 11:51:004.43[facility] XvshshvMIUJQKLUAU1292-72-67 11:51:0091.1[facility] WfwokqsGXRYKTUXWO4048-93-19 11:51:00 Test Item Value Reference Range Interpretation Comments MCH (test code = MCH) 30.2 pg 27.0-31.0 [facility] VtmsraeCEFENWSAWV0057-87-10 11:51:000.1[facility]annHEMATOLOGY 2016-06-19 11:51:000.0[facility] ZmhobecOTWGNISYTE4141-98-40 11:51:000.0[facility] ZytjzpiWPKYQCIRHQ5898-82-56 11:51:001.2[facility] YqxtrohJSDZMERXFM1734-59-21 11:51:000.4[facility] MxnugadWLYOIENJTG1360-03-74 11:51:004.7[facility] IJXNVSTVVY5683-82-49 11:51:004.8[facility] PzbvavrFKPDPIQAKL3345-61-45 11:51:00 47.6[facility] AdynylrIYGPVALPLL9204-14-23 11:51:0046.9[facility]annHEMATOLOGY 2016-06-19 11:51:004.3[facility] OCXCC9084-94-85 22:55:001 [facility] TVJBP9950-20-21 22:55:00<1[facility] BEZXW4304-95-17 22:55:00Clear (03/23/16 4:55 PM)[facility] STOOL 2016-03-23 22:55:001.011[facility] BXNCN7744-75-73 22:55:006.0 [facility] WBEHY8796-63-44 22:55:00Yellow *NA*(03/23/16 4:55 PM) [facility] HWEBI6161-84-93 22:55:00Negative *NA*(03/23/16 4:55 PM) [facility] DDWBE8638-48-04 22:55:00Negative (03/23/16 4:55 PM) [facility] HKFXR7911-79-52 22:55:00Negative (03/23/16 4:55 PM) [facility] LIVUY9399-60-44 22:55:00Negative (03/23/16 4:55 PM) [facility]annCHEM UHEIW7072-28-56 12:16:0021[facility]annCHEM PANEL 2016-03-22 12:16:0015.2[facility]annCHEM SGSJH5571-96-33 12:16:004.0[facility]annCHEM ULNWL9241-81-91 12:16:000.8[facility]annCHEM UBTZL7850-07-99 12:16:0076[facility]annCHEM DDWHS8953-19-95 12:16:000.3[facility]annCHEM JKNAP7636-08-32 12:16:0028[facility]annCHEM SQCBB3474-26-81 12:16:009.2 [facility]annCHE[facility] ODSOQ0180-11-32 12:16:003.1[facility]annCHEM PANEL 2016-03-22 12:16:004.2[facility]annCHEM ZNOTK9615-03-80 12:16:0097[facility]annCHEM LCXKQ1973-06-46 12:16:007.1[facility]annCHEM NCJNV5099-68-09 12:16:0034[facility]annCHEM FXQOB1026-93-17 12:16:0059[facility]annCHEM JOSAZ1549-42-96 12:16:0086[facility]annCHEM MDLYV0789-30-29 12:16:84715 [facility]annCHE[facility] DKOUP9477-46-20 12:16:32524Bwrtgriz HermannCHEM PANEL 2016-03-22 12:16:0017[facility]annCHEM YXZKU9863-51-93 12:16:000.82[facility] TrgzdnqNMNBNQRGFX3851-40-85 12:16:004.2[facility] ZwtlmjtPRXEACZSXB8861-59-61 12:16:002.5[facility] QqfehceGEHFGBCWRW1002-13-58 12:16:000.6[facility] VYRJFCFMCX3770-94-42 12:16:002.1[facility] NhewwqtVNFPGFTARZ5079-97-90 12:16:000.6 [facility] PmuiolrZBUPSZMKJH0626-20-76 12:16:000.2[facility] HermannHEMATOLOGY 2016-03-22 12:16:007.5[facility] YofuxnoFEVDKZTOSL5335-98-39 12:16:0056.8[facility] UnukiikHXDAORJFAE5345-78-61 12:16:0033.0[facility] GtvgilhCHKGGMXNVN4821-73-56 12:16:00 Test Item Value Reference Range Interpretation Comments MCH (test code = MCH) 32.0 pg 27.0-31.0 [facility] DykxzvkSMWKSMQUUQ9160-88-83 12:16:0033.7[facility]annHEMATOLOGY 2016-03-22 12:16:007.4[facility] HstrkypIRFDSOVTVQ7436-92-03 12:16:0014.3[facility] KfucdcfKTCOEMXCDK3100-27-96 12:16:92812Hgjwbaga NhyufivGRMXQDSQYJ5469-13-16 12:16:0095.0[facility] NlawshyOAWKHPEFBS8682-86-18 12:16:0036.1[facility] NXWEGLZRXP9688-66-06 12:16:0012.2[facility] ZxykmbmDAMJENRSQI0102-52-81 12:16:00 3.80[facility] GedcsxxUKBOYAPESJ7554-65-01 12:16:007.5[facility] HermannCHEM PANEL 2016-03-20 10:34:0025[facility]annCHEM NLGUF1269-20-17 10:34:0015.1[facility]annCHEM LEVBM8135-49-72 10:34:004.6[facility]annCHEM JJEGM1583-53-88 10:34:000.7[facility]annCHEM IFRSY6272-46-85 10:34:0086[facility]annCHEM JCNUU8312-84-95 10:34:000.4[facility]annCHEM FGEQZ5054-00-02 10:34:0093 [facility]annCHEM JSGHW5962-52-90 10:34:0074[facility]annCHEM PANEL 2016-03-20 10:34:0032[facility]annCHEM TDYDZ2341-16-71 10:34:003.4[facility]annCHEM PEVPK6320-93-06 10:34:008.0[facility]annCHEM ASONS0192-23-62 10:34:0098[facility]annCHEM EGXUP6980-64-19 10:34:0027[facility]annCHEM JDLQU8609-95-39 10:34:009.6[facility]annCHEM ITCSH6223-52-53 10:34:000.68 [facility]annCHEM AZNEV2648-68-22 10:34:75444Kjjjcpbv HermannCHEM PANEL 2016-03-20 10:34:004.1[facility]annCHEM ZQQQA1760-89-33 10:34:20540Kcbfqebt HermannCHEM DMQZS7650-01-66 10:34:0017[facility] VvonriuABXUWYSBTZ1528-14-38 10:34:006.1[facility] IzydwfxYDBLMQTRFO4756-76-57 10:34:002.1[facility] SQBVVIVKEK6350-14-79 10:34:0028.0[facility] VkmnnhmIYYXOCUZGV6413-21-27 10:34:00 0.2[facility] InntbvtWWBRNIEZHV5744-88-14 10:34:000.1[facility] HermannHEMATOLOGY 2016-03-20 10:34:0063.1[facility] NlspdyxAXXNRKVTEV2778-58-57 10:34:002.4[facility] DssitiaWAIBRVRRVE6160-39-31 10:34:000.5[facility] MqjmksmQQUVLKRMGA1788-80-14 10:34:000.7[facility] QflxwlcXRRTYNMAWW6333-39-39 10:34:005.3[facility] EQHQBTLLBZ8303-68-63 10:34:57941Pkvtqaul WprxpwjRZVFKLCJAE2615-91-75 10:34:008.4 [facility] OwrxoqnWVXSCMDMQP9621-72-09 10:34:0094.9[facility] HermannHEMATOLOGY 2016-03-20 10:34:0037.1[facility] MidylmySOLVOETEHN6021-97-43 10:34:0012.6[facility] FhawpqbCPAAPIPAQI8465-00-25 10:34:008.5[facility] HelmlmcKGBNMNCLQJ3252-65-13 10:34:003.90[facility] RssqsldXNJNXWOBVL7806-90-70 10:34:0014.4[facility] XJTVMLHPQE1015-14-47 10:34:00 Test Item Value Reference Range Interpretation Comments MCH (test code = MCH) 32.2 pg 27.0-31.0 [facility] KucvvgtIERTMEFUXI0624-22-50 10:34:0033.9[facility] HermannCHEM PANEL 2016-03-18 10:48:0093[facility] HermannCHEM UJSGH0684-31-58 10:48:70903Hznroxzr HermannCHEM WABAM5248-96-73 10:48:0018[facility]annCHEM QFUUM2980-71-92 10:48:0078[facility]annCHEM LTHPG3177-16-37 10:48:0035[facility]annCHEM HOOSP7290-42-77 10:48:0074[facility]annCHEM SZOQZ0197-83-02 10:48:000.67 [facility]annCHEM HUMTH6360-80-06 10:48:0099[facility]annCHEM PANEL 2016-03-18 10:48:003.9[facility]annCHEM TAWZX2531-39-64 10:48:22039Tqltxpkq HermannCHEM NBCUN3701-65-04 10:48:007.2[facility]annCHEM EUJQF3357-55-78 10:48:009.1[facility]annCHEM SBKYF5336-18-74 10:48:0027[facility]annCHEM BOVGU3046-59-34 10:48:003.1[facility]annCHEM CKYGX3112-20-71 10:48:000.3 [facility]annCHEM NCMHU5829-01-61 10:48:000.8[facility] HermannCHEM PANEL 2016-03-18 10:48:004.1[facility]annCHEM CNXCD8895-03-81 10:48:0027[facility]annCHEM GKZGP8417-30-98 10:48:0013.9[facility] LszffujREQJRJKXMT7598-28-00 10:48:94097Oolcunrq SkxhhojEFKNYPMKDB0076-56-05 10:48:00 Test Item Value Reference Range Interpretation Comments MCH (test code = MCH) 32.4 pg 27.0-31.0 [facility] RgjmotsDTUZWXKMVN3276-72-68 10:48:008.1[facility] HermannHEMATOLOGY 2016-03-18 10:48:0033.9[facility] UvkqmhyUOCPRLRWYF0781-56-01 10:48:0014.3[facility] CxfatnjOKHCOXVPCW5032-44-63 10:48:0011.8[facility] JcmjatsQHHWHFCBLB3737-75-31 10:48:008.3[facility] PxnqivfFPUJLXFVGQ0465-65-41 10:48:0034.6[facility] PPFGISQOKB8310-41-64 10:48:0095.3[facility] VmanaiqLAVVKGNGYC1912-79-32 10:48:00 3.63[facility] IsluhmkVQYYPZMMQK5184-70-73 10:48:000.2[facility] HermannHEMATOLOGY 2016-03-18 10:48:000.5[facility] OhgeaauDKQENACRHW7197-43-39 10:48:002.6[facility] PmlyywnCOONYLMXLO0244-72-44 10:48:000.1[facility] VisbukzKAETOKSDIH1306-20-87 10:48:001.0[facility] FyiabwyMGVTRUJYKY1672-26-90 10:48:002.0[facility] JUOVAPSRIA4817-28-11 10:48:006.2[facility] JxzrgwnBWRRWMANDM1169-23-63 10:48:00 59.4[facility] HlrcpiuJQJHSYESCV6136-59-42 10:48:0031.4[facility]annHEMATOLOGY 2016-03-18 10:48:004.9[facility] MzwjotfLVKNMXEOQF0851-26-39 11:38:000.1[facility] WWBRV2360-45-26 06:37:00Negative (03/14/16 12:37 AM)[facility] SUSWE5886-04-06 06:37:00Negative *NA*(03/14/16 12:37 AM)[facility] JWGQK6363-71-99 06:37:00Negative (03/14/16 12:37 AM)[facility] ESYIR8554-45-80 06:37:004.0[facility] STOOL 2016-03-14 06:37:001[facility] BEIKW6005-66-67 06:37:00>182 [facility] GBTME4782-69-09 06:37:00Large *ABN*(03/14/16 12:37 AM) [facility] BMMFP3900-63-06 06:37:00Yellow *NA*(03/14/16 12:37 AM) [facility] QMYJZ8673-78-06 06:37:00Slight *ABN*(03/14/16 12:37 AM) [facility] TNBJQ6976-95-43 06:37:001.016[facility] VEWKU3028-16-21 06:37:005.5[facility] HermannCHEM VPSPF9453-81-97 10:47:004.1 [facility]annCHEM SSYUA9152-47-47 10:47:002.4[facility] HermannIMMUNOLOGY 2016-03-12 10:47:0027.4[facility] HermannCHEM YXZWB7780-65-71 10:54:004.0[facility] HermannCHEM KGFKF3958-27-05 10:54:002.4[facility] RigrylsADAVNQWIVXNB2133-10-96 10:54:0014.1[facility] RicjrqsDPKLHQLYXJAY7574-37-53 10:54:0097[facility] VXJINGRYBTPG1452-61-98 10:54:0020[facility] GftxlsqEOVUDHFPOYOX4872-38-90 10:54:00 0.59[facility] KewdlxiETEJHGNLHMLM2514-82-45 10:54:63095Tujhefvh [place] OBXTKRJBDFTN2363-22-59 10:54:004.1[facility] BlpbdwlWDNVTGZCQHXU1764-86-60 10:54:0023[facility] LbeclclSHZBCPUWRTEJ6889-70-22 10:54:46466Vzfhhkmg [place] EDXHGGNTCXQS4502-61-46 10:54:008.6[facility] LutuigaNHLTPOFQXKEQ5288-96-33 10:54:0095[facility] ZwpzlpjFBNIQSNJOP3023-90-57 10:54:003.3[facility] DJUCPZNBWX9483-73-38 10:54:009.6[facility] XaqnydjKTIKSZQNRN2519-58-22 10:54:00 67.9[facility] UckzpaxRYSDMXWHIR4128-49-24 10:54:0023.3[facility] HermannHEMATOLOGY 2016-03-11 10:54:006.4[facility] IwhhugnLSRZHTBNPM7080-35-99 10:54:001.4[facility] OlmcslgRYPKLQRXVL9567-14-06 10:54:001.0[facility] BhnnbbtJPENESAAUP8713-67-47 10:54:000.2[facility] FsvbhrfVLWBQREEUB4132-41-46 10:54:000.1[facility] SNSLRDQIOC8163-29-85 10:54:000.9[facility] NwrlypyRAUYSDYATW2632-41-90 10:54:008.3 [facility] OpbsdfbCYPZQCAWIQ3778-98-17 10:54:00 Test Item Value Reference Range Interpretation Comments MCH (test code = MCH) 32.2 pg 27.0-31.0 [facility] KqhlipeHRNPQQINXQ5656-75-27 10:54:0094.2[facility] HermannHEMATOLOGY 2016-03-11 10:54:52304Izpenmkf IyenpigRBGSPGTXLJ9591-13-98 10:54:0034.2[facility] BcxfwhxYOHVNZISPU5212-38-69 10:54:0014.3[facility] KegnxmmKQIYWSUSZS3625-23-04 10:54:0033.8[facility] NnngqrrBHKMSDJYZF8158-97-80 10:54:0014.1[facility] CFNWCWAYOF6843-13-59 10:54:0011.5[facility] YlilpynZVYHJXVPKN0122-65-19 10:54:00 3.59[facility] HermannPARATHYROID QSOKOUL7325-82-28 10:54:001.00[facility] PARATHYROID HEHJJTU4971-62-01 10:54:001.06[facility] HermannCHEM YHLYS8491-02-58 08:06:002.8[facility] HermannCHEM DQHFK2555-82-14 08:06:0098[facility]annCHEM BUTMN3189-61-74 08:06:009.[facility]annCHEM QVQYJ4573-66-33 08:06:008.8 [facility]annCHEM AAGEH6654-81-12 08:06:000.58[facility] HermannCHEM PANEL 2016-03-10 08:06:003.6[facility]annCHEM ASTDF3853-25-19 08:06:59184Haabbfer HermannCHEM KFQZO7315-22-27 08:06:0029[facility]annCHEM NMHCI6310-45-82 08:06:77143Gmvxvepv HermannCHEM XSWAG8327-41-38 08:06:0085[facility]annCHEM XHAHY7655-13-31 08:06:0020[facility]annCHEM SZYVP4063-16-02 08:06:004.2 [facility] NbumrarTPMIJYUISW5470-43-50 08:06:0015.8[facility] HermannHEMATOLOGY 2016-03-10 08:06:003.55[facility] VfkisyuZZLKCAZKLJ8202-74-91 08:06:0013.5[facility] SwpbolyVIYSAZJGDT9239-14-44 08:06:41331Uyawfboy AfpghhyGNXPYOAJMW3300-01-38 08:06:008.7[facility] ApafwutEFGQPRFJFG5921-23-20 08:06:0011.1[facility] OMNMYYPEDT8239-78-90 08:06:0033.9[facility] NyzfpmiFZAPBTCHII1438-51-48 08:06:00 95.6[facility] SybbovrXXOUQSMZCZ0182-48-62 08:06:00 Test Item Value Reference Range Interpretation Comments MCH (test code = MCH) 31.3 pg 27.0-31.0 [facility] YucgzqpMIDYAPAHIF0509-77-36 08:06:0032.7[facility] HermannHEMATOLOGY 2016-03-10 08:06:000.2[facility] IwphwliPHLUGVMZTG6966-19-98 08:06:001.3[facility] SdqcdsrVLYCZIUQOJ3279-51-79 08:06:000.2[facility] YkkczxjIBZKLPEILK7912-39-26 08:06:0010.3[facility] SxcscnxKGCWKIUNNL8614-01-43 08:06:003.9[facility] JARJBRKIBU9678-60-70 08:06:001.0[facility] CsgbmfvGVPFFLLUSD2321-04-32 08:06:001.1 [facility] SebhnpgEDRLRQJEQI4678-89-58 08:06:0064.9[facility]annHEMATOLOGY 2016-03-10 08:06:008.2[facility] PgzcelgGBPBDHHDBV0040-31-51 08:06:0024.8[facility] HermannPARATHYROID UPICFSA0842-22-26 08:06:001.11[facility] HermannPARATHYROID QMMAAUA8875-58-56 08:06:001.14[facility] UpgyeieJPYPJIFKKGCA7119-38-18 21:07:49585 [facility]annCHEM ILUAH1660-73-77 08:56:002.3[facility] HermannCHEM PANEL 2016-03-09 08:56:003.4[facility] AvjgxktFUNDLIPPKYIL4533-14-97 08:56:0014.7 [facility] HzajdnzEDHOSPDDKGXZ0474-62-35 08:56:0099[facility] HermannELECTROLYTES 2016-03-09 08:56:0019[facility] XjxqrgoTTEYSEWDILQL2311-64-68 08:56:000.56[facility] VytrmagXWCKAFYMTWFR2343-02-08 08:56:08558Zcssjnng FysqhxhNPSAJKEXRQNO3472-56-00 08:56:003.7[facility] MdqjjjaLXFFHVEEMSUI1536-67-11 08:56:64109Gawcgjxw [place] ZSYCLAVGAOVH2877-45-67 08:56:0023[facility] QydphocSTFQBXMSYXIC2042-29-87 08:56:00 8.8[facility] GtrqrirCPADUKLQZL8253-32-94 08:56:0011.6[facility]annHEMATOLOGY 2016-03-09 08:56:001.1[facility] LsbutumBAEDJEVSDG8178-17-12 08:56:001.0[facility] FrvzmhwUQOCTCTGZG0117-46-96 08:56:003.4[facility] GuztraqQCXQLNKKDL8214-23-15 08:56:0070.0[facility] JytenkdMBSELEBZTV8757-73-75 08:56:007.2[facility] DATIGFPKBS4012-20-98 08:56:0020.7[facility] NlpdphcFSQYJUPVGT2026-52-19 08:56:00 1.2[facility] TpkonjoMBBVPWDQCJ6228-84-16 08:56:000.2[facility] HermannHEMATOLOGY 2016-03-09 08:56:000.2[facility] KtufwfwTZWECHACPX3845-98-77 08:56:87319Lcrgrvmi CmzgyyrKQXPMPPMYG6064-95-19 08:56:0013.7[facility] JrhmlvsXGJYEMUFLK4088-64-16 08:56:008.1[facility] LkbskfjAIQCGVGXYS6897-37-43 08:56:00 Test Item Value Reference Range Interpretation Comments MCH (test code = MCH) 31.9 pg 27.0-31.0 [facility] CegtwszTPYXGLGNBL0312-88-20 08:56:0033.3[facility] HermannHEMATOLOGY 2016-03-09 08:56:0094.1[facility] AtcnppgSYNZDWBWCB5520-35-86 08:56:0033.8[facility] DzrzfteRKFENPMFLF0662-23-31 08:56:0016.6[facility] LjqucrnJQCJDWLTPH4454-30-64 08:56:0011.3[facility] YygnzgaMXFKRFERDP2926-90-03 08:56:003.54[facility] PARATHYROID SKICUSF1344-56-61 08:56:001.06[facility] HermannPARATHYROID PROFILE 2016-03-09 08:56:001.02[facility]annBLOOD BANK SCJWJVH8775-54-96 06:29:00 Negative (03/08/16 12:29 AM)[facility] EzgmczqIIAGEJXBPO3033-58-25 06:20:00 Test Item Value Reference Range Interpretation Comments PTT (test code = PTT) 27.1 s 22.9-35.8 [facility] LematmwAQVQIRQFLS2713-92-38 06:20:00 Test Item Value Reference Range Interpretation Comments PT (test code = PT) 14.3 s 12.0-14.7 [facility] VqbdpytGUXTMZGOHP9046-74-88 06:20:001.09[facility] HermannBODY FLUIDS 2016-03-07 22:52:0060[facility] HermannBODY JVMPEG5318-91-67 22:52:003.2[facility] HermannBODY KFVQOI5217-48-38 22:52:55616Senryvbq HermannBODY YSKTJN5813-32-63 22:52:0018[facility] HermannBODY MXWMKR6800-08-41 22:52:0055[facility] HermannBODY FYEAAD7110-02-90 22:52:0027[facility] HermannBODY BNSVDX6589-53-48 22:52:3503562 [facility]annBODY BXYWOJ5142-01-57 22:52:0069[facility] HermannBODY FLUIDS 2016-03-07 22:52:00Red *ABN*(03/07/16 4:52 PM)[facility]annBODY FLUIDS 2016-03-07 22:52:00Moderate *ABN*(03/07/16 4:52 PM)[facility] HermannBODY FLUIDS 2016-03-07 22:52:00 Test Item Value Reference Range Interpretation Comments Tube Num CSF (test code = Tube Num CSF) 1 1 [facility]annBODY IKXADF4413-74-05 22:52:00Hemolyzed *ABN*(03/07/16 4:52 PM) [facility] ILFSF0889-37-19 22:52:00Negative (03/07/16 4:52 PM) [facility] HVSAJ0075-96-19 22:52:00Negative (03/07/16 4:52 PM) [facility] MLYKG2439-87-07 22:52:00Moderate *ABN*(03/07/16 4:52 PM)[facility] EJSHM7516-37-98 22:52:000.2[facility] AMNRA2943-74-18 22:52:00Negative *NA*(03/07/16 4:52 PM)[facility] OLHBI5011-78-10 22:52:00Negative (03/07/16 4:52 PM)[facility] UNGJB6733-34-81 22:52:00Negative *NA*(03/07/16 4:52 PM)[facility] BVQKO2574-87-11 22:52:00Negative (03/07/16 4:52 PM)[facility] BJCNO7854-70-00 22:52:00Yellow *NA*(03/07/16 4:52 PM)[facility] ODFRJ8634-89-16 22:52:00 Test Item Value Reference Range Interpretation Comments UA pH (test code = UA pH) 6.5 1 5.0-8.0 [facility] SVAGM3522-22-13 22:52:00Slight Cloudy (03/07/16 4:52 PM)[facility] OYZBF0865-91-88 22:52:00 Test Item Value Reference Range Interpretation Comments UA Spec Grav (test code = UA Spec 1.010 1 Grav) [facility] LVHLH8115-71-03 22:52:0012[facility]UR[facility] AWTOQ7541-11-32 22:52:007[facility] HermannBODY DHVRLX4617-23-68 22:02:71091 [facility]annB[facility] KXWYAR6812-08-64 22:02:0052[facility] HermannBODY FLUIDS 2016-03-05 22:02:0069[facility]annBODY ZDTNPQ6962-22-28 22:02:0021[facility]annBODY DFBBSC2530-28-73 22:02:0010[facility]annBODY ROJGBG4321-13-08 22:02:00xxxxxxx (03/05/16 4:02 PM)[facility]annB[facility] BQQMEL1083-27-00 22:02:00 Red *ABN*(03/05/16 4:02 PM)[facility]annB[facility] CQTUDC1293-13-79 22:02:00Marked *ABN*(03/05/16 4:02 PM)[facility]annBODY XFWWIV4884-16-82 22:02:00Hemolyzed *ABN*(03/05/16 4:02 PM)[facility]annBODY XEQQOT4367-91-57 22:02:24324Ettuqisk HermannBODY LBDOFF0013-30-30 22:02:0366075Uewckhng HermannURINE AND STOOL 2016-03-05 15:24:007[facility] AND YDRNV8633-47-46 15:24:00Not Indicated *NA*(03/05/16 9:24 AM)[facility] URQHD5082-18-62 15:24:00Negative (03/05/16 9:24 AM)[facility] UVZVU2760-36-06 15:24:001[facility] MODZR9606-25-32 15:24:00Negative (03/05/16 9:24 AM)[facility] HGVUZ0934-89-45 15:24:00Clear (03/05/16 9:24 AM)[facility] UPYVT1987-58-94 15:24:001.011[facility] BEUAE4649-20-71 15:24:00Negative *NA*(03/05/16 9:24 AM)[facility] HADBK2738-30-79 15:24:00Yellow *NA*(03/05/16 9:24 AM)[facility] BPCNM3483-70-59 15:24:00Negative (03/05/16 9:24 AM)[facility] JQYLD6506-29-77 15:24:007.0[facility]annBLOOD BANK FOPEHOT5246-11-67 06:31:00 Negative (03/04/16 12:31 AM)[facility] DixpfvuJORDJPQDWO2799-21-59 06:31:00 Test Item Value Reference Range Interpretation Comments PTT (test code = PTT) 28.1 s 22.9-35.8 [facility] DjjmkdyVQWDVNNJWV5658-69-07 06:31:00 Test Item Value Reference Range Interpretation Comments PT (test code = PT) 14.5 s 12.0-14.7 [facility] YbhdqesRZHGYPPKKT7411-30-20 06:31:001.11[facility]ann[facility] FLUIDS 2016-03-01 21:14:0087[facility] USFGNF9094-98-85 21:14:002.7[facility] TOTGPR1852-08-01 21:14:0078[facility] QHEABK9923-23-33 21:14:0013[facility] TBLXGI5123-35-21 21:14:0013[facility] DTGPHX9715-99-63 21:14:0074[facility] HOZUQL7001-44-21 21:14:64213 [facility] VAWYSU1244-30-26 21:14:7045231Fwjpyrii HermannBODY FLUIDS 2016-03-01 21:14:00Marked *ABN*(03/01/16 3:14 PM)[facility] 2016-03-01 21:14:00Hemolyzed *ABN*(03/01/16 3:14 PM)[facility] 2016-03-01 21:14:00Red *ABN*(03/01/16 3:14 PM)[facility] 2016-03-01 21:14:00xxxxxxx (03/01/16 3:14 PM)[facility] STOOL 2016-02-29 17:57:00Negative (02/29/16 11:57 AM)[facility] STOOL 2016-02-29 17:57:002[facility] HCQWF1034-13-14 17:57:002[facility] HOLPB1361-99-78 17:57:00Negative (02/29/16 11:57 AM)[facility] HFCJF5413-99-69 17:57:00Negative (02/29/16 11:57 AM)[facility] ONVCM7017-94-14 17:57:001[facility] STOOL 2016-02-29 17:57:001.016[facility] LULXH4734-46-50 17:57:005.5 [facility] UYUSY9852-51-89 17:57:00Slight *ABN*(02/29/16 11:57 AM) [facility] SRRMD0377-98-02 17:57:00Negative *NA*(02/29/16 11:57 AM)[facility] PPTVZ4317-90-09 17:57:00Yellow *NA*(02/29/16 11:57 AM)[facility]annCARDIAC OZQAWHR5771-96-71 06:37:00<0.02[facility] BACTERIAL - PONLGQTW0427-27-36 14:34:00Negative (02/27/16 8:34 AM)[facility] HAFYUN0961-72-07 06:41:00Negative *NA*(02/27/16 12:41 AM)[facility]annDR[facility] RNYBIR3537-16-18 06:41:00Negative *NA*(02/27/16 12:41 AM)[facility] ZBGBED8048-88-56 06:41:00Negative *NA*(02/27/16 12:41 AM)[facility] XGFGGA9452-09-56 06:41:00Negative *NA*(02/27/16 12:41 AM)[facility] BULPEX6906-00-44 06:41:00Negative *NA*(02/27/16 12:41 AM)[facility] MUBBJF2463-49-06 06:41:00Negative *NA*(02/27/16 12:41 AM)[facility] GLTDIM2466-63-73 06:41:00Negative *NA*(02/27/16 12:41 AM)[facility]annDR[facility] HNJOHK8288-72-69 06:41:00Negative *NA*(02/27/16 12:41 AM)[facility]annDR[facility] EXWSRV4758-70-32 06:41:00Negative *NA*(02/27/16 12:41 AM)[facility]annDR[facility] ZAXFEB5643-31-07 06:41:00See Note *NA*(02/27/16 12:41 AM)[facility] CwdwnudKZEPIBPVSQ4445-38-94 06:40:00 Test Item Value Reference Range Interpretation Comments Angle (test code = Angle) 74.3 degrees 53.0-72.0 [facility] EwfhbzlFGPORMFRMU0631-77-49 06:40:00 Test Item Value Reference Range Interpretation Comments Max Amp (test code = Max Amp) 69.2 mm 50.0-70.0 [facility] FbgsnoqTTQSREKZXD6359-82-03 06:40:003.5[facility]annHEMATOLOGY 2016-02-27 06:40:0011.3[facility] FnsxaspJCRMEGYSZU3227-86-48 06:40:000.8[facility] DwrucxeVQDSFTAFCE5007-99-39 06:40:00See Note (02/27/16 12:40 AM)[facility] [place] TXNRLLPYXB8270-65-38 06:40:00 Test Item Value Reference Range Interpretation Comments R-time (test code = R-time) 3.8 min 5.0-10.0 [facility] EsqkbevQWJGPUWPEG2149-23-08 06:40:00 Test Item Value Reference Range Interpretation Comments K-time (test code = K-time) 0.9 min 1.0-3.0 [facility] IvnuuvtZSQHLYJXCK7334-50-28 06:40:001.23[facility]annHEMATOLOGY 2016-02-27 06:40:00 Test Item Value Reference Range Interpretation Comments PT (test code = PT) 15.8 s 12.0-14.7 [facility] HdgpvgbPPVNGSKKOE5218-57-81 06:40:00 Test Item Value Reference Range Interpretation Comments PTT (test code = PTT) 25.3 s 22.9-35.8 [facility] AVDABSFYP6177-40-44 06:40[facility]008.9[facility] ENSETMQJGQ8528-61-10 14:51:00 Test Item Value Reference Range Interpretation Comments POC Activated Clotting Time (test code 154 s = POC Activated Clotting Time) [facility] BANK QDKEWVO8000-02-64 09:00:00Negative (02/26/16 3:00 AM) [facility] YTCBR8999-51-96 08:56:510.4[facility]annCHEM PANEL 2016-02-26 08:56:5181[facility]annCHEM EWKZF1248-27-20 08:56:5145[facility]annCHEM DTHXL4282-72-78 08:56:517.8[facility]annCHEM NWGLW5177-02-87 08:56:513.7[facility]annCHEM FCKNO4027-17-78 08:56:5152[facility]annCHEM ERMCN6256-18-79 08:56:510.9[facility]annCHEM KCGZX5436-48-95 08:56:514.1 [facility]annCHE[facility] KVQEL1456-79-49 08:56:5127[facility]annHEMATOLOGY 2016-02-26 08:56:5110.5[facility] MrfuygdRYMIPQTPUZ7979-35-49 08:56:51 Test Item Value Reference Range Interpretation Comments Max Amplitude Rapid (test code = Max 68 mm 52-71 Amplitude Rapid) [facility]EosjktzGWTRWZAIQB5424-10-53 08:56:51 Test Item Value Reference Range Interpretation Comments K-time Rapid (test code = K-time 1.1 min 0.6-2.3 Rapid) [facility] HospitalHtnaupuNVNYGUGVYS4628-97-52 08:56:51 Test Item Value Reference Range Interpretation Comments Angle Rapid (test code = Angle 76 degrees 64-80 Rapid) [facility]LzunpwyQVTIETMFUW2873-90-03 08:56:51 Test Item Value Reference Range Interpretation Comments Split Point Rapid (test code = Split 0.6 min Point Rapid) [facility] CenterYgiapcxRGXHDISCGS6751-31-34 08:56:51 Test Item Value Reference Range Interpretation Comments R-time Rapid (test code = R-time 0.8 min 0.4-0.7 Rapid) [facility] HospitalWvwcxbdBPVTGHWBSC2738-97-20 08:56:51 Test Item Value Reference Range Interpretation Comments ACT (TEG) Rapid (test code = ACT (TEG) 121 s 86-118 Rapid) [facility] HospitalPsaoqrrOMYOTNUKOT0944-02-57 08:56:510.6[facility]
[2019-10-03] MEDS ORDERED: ACETAMINOPHEN 325 MG TABLET ONE (09:14)
[2019-10-03] MEDS ORDERED: AZITHROMYCIN 250 MG TAB ONE (09:14)
--- NOTE | 2019-10-03 09:35 | ER ---
Nurse's Notes [facility] Name: Lorri Dotson Age: 69 yrs Sex: Female : 1950 Arrival Date: 10/03/2019 Time: 08:17 Bed 4 Private MD: Diagnosis: Fever, unspecified;Acute upper respiratory infection, unspecified;Type 2 diabetes mellitus Presentation: 10/02 08:20 Chief complaint: Patient states: C/O sore throat, headache, subjective fever, and body rb1 aches since yesterday. Coronavirus screen: Client presents with at least one sign or symptom that may indicate coronavirus-19. Standard/surgical mask placed on the client. Provider contacted for isolation considerations. Ebola Screen: Patient denies travel to an Ebola-affected area in the 21 days before illness onset. 08:20 Method Of Arrival: Ambulatory rb1 08:20 Initial Sepsis Screen: Does the patient meet any 2 criteria? No. Patient's initial rb1 sepsis screen is negative. Risk Assessment: Do you want to hurt yourself or someone else? Patient reports no desire to harm self or others. Onset of symptoms was October 02, 2019. 08:20 Acuity: SARAI 3 rb1 08:20 Initial Sepsis Screen: Does the patient have a suspected source of infection? No. bp Patient's initial sepsis screen is negative. Triage Assessment: 08:20 General: Appears in no apparent distress. Behavior is calm, cooperative, Reports rb1 Subjective fever. Pain: Complains of pain in bodyaches Pain currently is 6 out of 10 on a pain scale. Pain began 1 day ago. Also complains of no other associated symptoms. Neuro: Level of Consciousness is awake, alert, obeys commands, Oriented to person, place, time, situation. Cardiovascular: Capillary refill < 3 seconds. Respiratory: Airway is patent Respiratory effort is even, unlabored, Respiratory pattern is regular, symmetrical, Denies shortness of breath. GI: Patient currently denies diarrhea, nausea, vomiting. : No signs and/or symptoms were reported regarding the genitourinary system. Derm: Skin is pink, warm \T\ dry. 08:20 Headache History: The patient has had previous headaches and this one is similar to rb1 previous episodes. Historical: - Allergies: 08:20 No Known Allergies; rb1 - Home Meds: 08:20 aspirin 81 mg Oral chew 1 tab once daily [Active]; atorvastatin 20 mg Oral tab 1 tab rb1 once daily [Active]; glimepiride 4 mg Oral tab 1 tab once daily [Active]; lisinopril 20 mg Oral tab 1 tab once daily [Active]; lovastatin 10 mg Oral tab 1 tab once daily [Active]; metformin 1,000 mg Oral tab 2 times per day [Active]; Pepcid 20 mg Oral tab 1 tab once daily [Active]; Plavix 75 mg Oral tab 1 tab once daily [Active]; - PMHx: 08:20 Diabetes - NIDDM; High Cholesterol; Hypertension; TIA; rb1 - PSHx: 08:20 brain surgery with clips; rb1 - Immunization history:: Adult Immunizations unknown. - Social history:: Smoking status: Patient/guardian denies using. Screenin:20 Abuse screen: Denies threats or abuse. Nutritional screening: No deficits noted. rb1 Tuberculosis screening: No symptoms or risk factors identified. Fall Risk None identified. Assessment: 08:20 General: SEE TRIAGE NOTE. bp 09:09 Reassessment: XRAY AT B/S. UOP PENDING. bp 09:20 Reassessment: Patient appears in no apparent distress at this time. No changes from rb1 previously documented assessment. 09:59 Reassessment: PT D/ C HOME AMBULATORY, DX WITH VIRAL URI. bp Vital Signs: 08:20 BP 129 / 65; Pulse 65; Resp 17; Temp 99.8; Pulse Ox 96% ; Weight 72.57 kg; Height 5 ft. rb1 4 in. (162.56 cm); Pain 6/10; 09:52 BP 131 / 71; Pulse 67; Resp 17; Temp 98.5; Pulse Ox 97% ; bp 08:20 Body Mass Index 27.46 (72.57 kg, 162.56 cm) rb1 Danyel Coma Score: 08:40 Eye Response: spontaneous(4). Verbal Response: oriented(5). Motor Response: obeys mallika commands(6). Total: 15. ED Course: 08:17 Patient arrived in ED. as 08:20 Leonel Mccracken MD is Attending Physician. mallika 08:20 Arm band placed on right wrist. rb1 08:20 Patient has correct armband on for positive identification. Bed in low position. Call rb1 light in reach. Side rails up X 1. Pulse ox on. NIBP on. 08:25 Chelsea Alvarez, RN is Primary Nurse. rb1 08:28 Triage completed. rb1 09:16 Chest Single View XRAY In Process Unspecified. EDMS 09:59 No provider procedures requiring assistance completed. Patient did not have IV access bp during this emergency room visit. Administered Medications: 09:00 Drug: Zithromax 500 mg Route: PO; bp 09:32 Follow up: Response: No adverse reaction bp 09:00 Drug: Tylenol 650 mg Route: PO; bp 09:31 Follow up: Response: No adverse reaction bp Outcome: 09:35 Discharge ordered by . mallika 09:59 Discharged to home ambulatory. bp 09:59 Condition: stable 09:59 Discharge instructions given to patient, Instructed on discharge instructions, follow up and referral plans. medication usage, Demonstrated understanding of instructions, follow-up care, medications, Prescriptions given X 1. 10:00 Patient left the ED. bp Addendum: 10/06/2019 11:09 Addendum: COVID-19 Result: Positive result giiven to ED physician to notify pt. a a5 Physician: Attila Whittington MD Physician was able to contact pt and pt was notified of positive COVID-19 swab result. Physician answered pt questions. Signatures: Dispatcher [employer] EDMA Leonel Mccracken MD MD cha Martinez, Amelia as Calderon, Audri, RN RN aa5 Chelsea Alvarez, RN RN rb1 Luis Patel RN RN bp
--- NOTE | 2019-10-03 09:35 | EDPHYS ---
Physician Documentation [facility] Name: Lorri Dotson Age: 69 yrs Sex: Female : 1950 Arrival Date: 10/03/2019 Time: 08:17 Bed 4 Private MD: ED Physician Leonel Mccracken HPI: 10/02 08:36 This 69 yrs old Female presents to ER via Ambulatory with complaints of mallika Headache, Sore Throat, Fever. 08:36 The patient complains of pain to the top of head, forehead, left frontal area, left mallika temporal area, right frontal area and right temporal area. Historical: - Allergies: 08:20 No Known Allergies; rb1 - Home Meds: 08:20 aspirin 81 mg Oral chew 1 tab once daily [Active]; atorvastatin 20 mg Oral tab 1 tab rb1 once daily [Active]; glimepiride 4 mg Oral tab 1 tab once daily [Active]; lisinopril 20 mg Oral tab 1 tab once daily [Active]; lovastatin 10 mg Oral tab 1 tab once daily [Active]; metformin 1,000 mg Oral tab 2 times per day [Active]; Pepcid 20 mg Oral tab 1 tab once daily [Active]; Plavix 75 mg Oral tab 1 tab once daily [Active]; - PMHx: 08:20 Diabetes - NIDDM; High Cholesterol; Hypertension; TIA; rb1 - PSHx: 08:20 brain surgery with clips; rb1 - Immunization history:: Adult Immunizations unknown. - Social history:: Smoking status: Patient/guardian denies using. ROS: 08:37 Eyes: Negative for injury, pain, redness, and discharge, Neck: Negative for injury, mallika pain, and swelling, Cardiovascular: Negative for chest pain, palpitations, and edema, Abdomen/GI: Negative for abdominal pain, nausea, vomiting, diarrhea, and constipation, Back: Negative for injury and pain, : Negative for injury, bleeding, discharge, and swelling, MS/Extremity: Negative for injury and deformity. 08:37 ENT: Positive for difficulty swallowing, rhinorrhea. mallika 08:37 Respiratory: Positive for cough. 08:37 Neuro: Positive for weakness. Exam: 08:37 Head/Face: Normocephalic, atraumatic. Eyes: Pupils equal round and reactive to light, mallika extra-ocular motions intact. Lids and lashes normal. Conjunctiva and sclera are non-icteric and not injected. Cornea within normal limits. Periorbital areas with no swelling, redness, or edema. Neck: Trachea midline, no thyromegaly or masses palpated, and no cervical lymphadenopathy. Supple, full range of motion without nuchal rigidity, or vertebral point tenderness. No Meningismus. Chest/axilla: Normal chest wall appearance and motion. Nontender with no deformity. No lesions are appreciated. Cardiovascular: Regular rate and rhythm with a normal S1 and S2. No gallops, murmurs, or rubs. Normal PMI, no JVD. No pulse deficits. Respiratory: Lungs have equal breath sounds bilaterally, clear to auscultation and percussion. No rales, rhonchi or wheezes noted. No increased work of breathing, no retractions or nasal flaring. Abdomen/GI: Soft, non-tender, with normal bowel sounds. No distension or tympany. No guarding or rebound. No evidence of tenderness throughout. Back: No spinal tenderness. No costovertebral tenderness. Full range of motion. Female : Normal external genitalia. Skin: Warm, dry with normal turgor. Normal color with no rashes, no lesions, and no evidence of cellulitis. MS/ Extremity: Pulses equal, no cyanosis. Neurovascular intact. Full, normal range of motion. Neuro: Awake and alert, GCS 15, oriented to person, place, time, and situation. Cranial nerves II-XII grossly intact. Motor strength 5/5 in all extremities. Sensory grossly intact. Cerebellar exam normal. Normal gait. Psych: Awake, alert, with orientation to person, place and time. Behavior, mood, and affect are within normal limits. 08:37 Constitutional: The patient appears alert, awake, non-diaphoretic, non-toxic, well developed, well hydrated, well groomed, well nourished, febrile. 08:37 ENT: Posterior pharynx: Airway: normal, no evidence of obstruction, Tonsils: are normal in appearance, Uvula: normal, midline, swelling, is not appreciated, erythema, is not appreciated, exudate, is not appreciated. Vital Signs: 08:20 BP 129 / 65; Pulse 65; Resp 17; Temp 99.8; Pulse Ox 96% ; Weight 72.57 kg; Height 5 ft. rb1 4 in. (162.56 cm); Pain 6/10; 09:52 BP 131 / 71; Pulse 67; Resp 17; Temp 98.5; Pulse Ox 97% ; bp 08:20 Body Mass Index 27.46 (72.57 kg, 162.56 cm) rb1 [place] Coma Score: 08:40 Eye Response: spontaneous(4). Verbal Response: oriented(5). Motor Response: obeys [facility] commands(6). Total: 15. MDM: 08:20 Patient medically screened. [facility] 08:39 Data reviewed: vital signs, nurses notes, lab test result(s), radiologic studies, plain mallika films. 08:40 Differential diagnosis: sinusitis, echovirus infection, group A strep tonsillitis, mallika influenza, laryngitis, pharyngitis, tonsillitis, upper respiratory infection, viral syndrome. Differential Diagnosis: Bronchitis Influenza Upper Respiratory Infection Pharyngitis. Data interpreted: quality assurance monitor final: rate is 65 beats/min, Pulse oximetry: on room air. Test interpretation: by ED physician or midlevel provider: plain radiologic studies. Counseling: I had a detailed discussion with the patient and/or guardian regarding: the historical points, exam findings, and any diagnostic results supporting the discharge/admit diagnosis, radiology results, the need for outpatient follow up, for definitive care, a family practitioner. 09:34 ED course: explained all studies, and labs, pt is non toxic, will treat and follow up , mallika return if worse. 10/02 08:35 Order name: COVID-19 [facility] 10/02 08:37 Order name: Flu [facility] 10/02 08:35 Order name: Chest Single View XRAY [facility] 10/02 08:38 Order name: Influenza Screen (A [facility] 10/02 09:41 Order name: Urine Dipstick--Ancillary (enter results); Complete Time: 09:58 tx 10/02 08:35 Order name: Urine Dipstick-Ancillary (obtain specimen); Complete Time: 09:51 [facility] Administered Medications: 09:00 Drug: Zithromax 500 mg Route: PO; bp 09:32 Follow up: Response: No adverse reaction bp 09:00 Drug: Tylenol 650 mg Route: PO; bp 09:31 Follow up: Response: No adverse reaction bp Disposition: 10/03/19 09:35 Discharged to Home. Impression: Fever, unspecified, Acute upper respiratory infection, unspecified, Type 2 diabetes mellitus. - Condition is Stable. - Discharge Instructions: Type 2 Diabetes Mellitus, Diagnosis, Adult, Fever, Adult, Upper Respiratory Infection, Adult, Cool Mist Vaporizer, Cough, Adult, [id number], Cough, Adult, Type 2 Diabetes Mellitus, Diagnosis, Adult, [id number], Fever, Adult, [id number]. - Prescriptions for Zithromax 500 mg Oral Tablet - take 1 tablet by ORAL route once daily for 4 days; 4 tablet. - Medication Reconciliation Form, Thank You Letter, Antibiotic Education, Prescription Opioid Use form. - Follow up: Private Physician; When: 2 - 3 days; Reason: Recheck today's complaints, Continuance of care, Re-evaluation by your physician. - Problem is new. - Symptoms have improved. Signatures: Dispatcher [employer] EDLeonel Blank MD MD cha Barber, Rebecca, Luis Brand RN, RN RN bp Corrections: (The following items were deleted from the chart) 10:00 09:35 10/03/2019 09:35 Discharged to Home. Impression: Fever, unspecified; Acute upper bp respiratory infection, unspecified; Type 2 diabetes mellitus. Condition is Stable. Discharge Instructions: Type 2 Diabetes Mellitus, Diagnosis, Adult, Fever, Adult, Upper Respiratory Infection, Adult, Cool Mist Vaporizer, Cough, Adult, [id number], Cough, Adult, Type 2 Diabetes Mellitus, Diagnosis, Adult, [id number], Fever, Adult, [id number]. Prescriptions for Zithromax 500 mg Oral Tablet - take 1 tablet by ORAL route once daily for 4 days; 4 tablet. and Forms are Medication Reconciliation Form, Thank You Letter, Antibiotic Education, Prescription Opioid Use. Follow up: Private Physician; When: 2 - 3 days; Reason: Recheck today's complaints, Continuance of care, Re-evaluation by your physician. Problem is new. Symptoms have improved. mallika
[2019-10-03 09:46] LABS: Urine Blood NEGATIVE (NEG); Urine Glucose 2+ (NEG); Urine Protein NEGATIVE (NEG)
--- NOTE | 2019-10-03 10:13 | RAD REPORT ---
EXAM DESCRIPTION: Nikki Single View10/03/2019 9:16 am CLINICAL HISTORY: cough COMPARISON: April 2019 FINDINGS: The lungs appear clear of acute infiltrate. The heart is normal size IMPRESSION: No acute abnormalities displayed
[2019-10-08 14:10] VITALS: BP 131/71; TEMP 98.5; O2SAT 97
== END 2019-10-03 10:00 | disposition home or self-care (01) ==
LOC: ER 08:16
DX: U07.1 COVID-19 (principal); J06.9 Acute upper respiratory infection, unspecified; E11.9 Type 2 diabetes mellitus without complications; I10 Essential (primary) hypertension; E78.00 Pure hypercholesterolemia, unspecified; Z86.73 Personal history of transient ischemic attack (TIA), and cerebral infarction without residual deficits; Z79.01 Long term (current) use of anticoagulants; Z79.82 Long term (current) use of aspirin
CPT/HCPCS: 81003; 87804 ×2; 71045; 99284; U0002

== ENCOUNTER 2019-11-15 14:28 | Emergency (ER) | payer OTHER ==
--- NOTE | 2019-11-15 15:43 | RAD REPORT ---
EXAM DESCRIPTION: CT - Head Brain Wo Cont - 11/15/2019 3:33 pm CLINICAL HISTORY: HEADACHE Headache, drowsiness COMPARISON: Ct Stroke Brain Wo Cont dated 08/24/2017; Head Brain Wo Cont dated 08/27/2016 TECHNIQUE: All CT scans are performed using dose optimization technique as appropriate and may inclu de automated exposure control or mA/KV adjustment according to patient size. FINDINGS: No intracranial hemorrhage, hydrocephalus or extra-axial fluid collection.Gliosis is noted in the right frontotemporal region, unchanged. Right craniotomy with aneurysm repair changes present . The paranasal sinuses and mastoids are clear. IMPRESSION: No acute intracranial abnormality.
[2019-11-15 16:04] LABS: Absolute Lymphocytes (CBC) 2.9 K/uL (0.7-4.9); Basophils % 1.2 % (0-1.3); Hematocrit 40.5 % (36.0-45.0); Lymphocytes % 29.8 % (15.3-44.8); MPV 8.1 fL (7.6-11.3)
[2019-11-15 16:07] LABS: Protime INR 1.14
[2019-11-15 16:12] LABS: Magnesium 2.4 mg/dL (1.8-2.4); Potassium 4.3 mmol/L (3.5-5.1)
[2019-11-15] MEDS ORDERED: ASPIRIN 81 MG CHEWABLE TABLET ONE (16:32)
[2019-11-15] MEDS ORDERED: NA CHLORIDE 0.9% 500 ML ONE (16:33)
[2019-11-15] MEDS ORDERED: IBUPROFEN 400 MG TAB ONE (16:33)
[2019-11-15] MEDS ORDERED: IBUPROFEN 200 MG TAB PO ONE (16:33)
[2019-11-15] MEDS ORDERED: FOLIC ACID 5 MG/ML VIAL ONE (16:34)
--- NOTE | 2019-11-15 17:39 | RAD REPORT ---
EXAM DESCRIPTION: CT - Head angio - 11/15/2019 5:31 pm CLINICAL HISTORY: HEADACHE COMPARISON: Head Brain Wo Cont dated 11/15/2019; Ct Stroke Brain Wo Cont dated 08/24/2017 TECHNIQUE: CT angiography of the head was performed with MIPs. All CT scans are performed using dose optimization technique as appropriate and may include automated exposure control or mA/KV adjustment according to patient size. FINDINGS: No evidence of aneurysm is detected. Evidence of previous aneurysm repair noted in the cir obey of [place]. No flow-limiting stenosis or vascular malformation identified. The right vertebral artery may terminate in PICA. Left vertebral artery is dominant with forward flow noted. Evidence of right temporal craniotomy. The visualized dural venous sinuses are patent. IMPRESSION: Evidence of previous aneurysm repair is noted with no current flow abnormality discerned .
--- NOTE | 2019-11-15 17:43 | RAD REPORT ---
EXAM DESCRIPTION: CT - Neck Angio - 11/15/2019 5:31 pm CLINICAL HISTORY: HEADACHE COMPARISON: C Spine Wo Con dated 02/26/2016 TECHNIQUE: CT angiography of the neck vessels was performed with MIPs. All CT scans are performed using dose optimization technique as appropriate and may include automated exposure control or mA/KV adjustment according to patient size. FINDINGS: A left aortic arch is identified with normal three vessel configuration of the great vesse ls. No significant flow abnormality is seen of the common carotid bilaterally. No significant stenosis is identified involving the cervical segments of both internal carotid arteri es. Mild arthritic changes are present involving both carotid bulbs. Normal flow is seen within both vertebral arteries. IMPRESSION: No significant flow abnormality of the neck vessels is identified.
--- NOTE | 2019-11-15 17:52 | EDPHYS ---
Physician Documentation [facility] Name: Lorri Dotson Age: 69 yrs Sex: Female : 1950 Arrival Date: 11/15/2019 Time: 14:33 Bed 2 Private MD: ED Physician Attila Whittington HPI: 11/14 15:13 This 69 yrs old Female presents to ER via Ambulatory with complaints of rn Headache, numbness, trouble speaking. 15:13 The patient complains of pain to the top of head, forehead and left scientology. Onset: The rn symptoms/episode began/occurred yesterday. Severity of symptoms: At its worst the pain was mild, in the emergency department the pain is unchanged. The symptoms are alleviated by nothing. the symptoms are aggravated by nothing. The patient has not experienced similar symptoms in the past. Reports yesterday and today, having headache, not going away, top and left side, assoc with heavy tongue and difficulty speaking, + numbness/tingling both sides of face, and tingling right lower leg below knee. No trauma or head injury. No chest pain/sob/abd pain. . Historical: - Allergies: 15:05 No Known Allergies; ll1 - PMHx: 15:05 Diabetes - NIDDM; TIA; Hypertension; High Cholesterol; brain bleed; ll1 - PSHx: 15:05 brain surgery with clips; ll1 - Immunization history:: Flu vaccine is up to date. - Social history:: Smoking status: Patient denies any tobacco usage or history of. - Family history:: not pertinent. - Hospitalizations: : No recent hospitalization is reported. ROS: 15:18 Constitutional: Negative for fever, chills, and weight loss Eyes: Negative for injury, rn pain, redness, and discharge, Neck: Negative for injury, pain, and swelling, Cardiovascular: Negative for chest pain, palpitations, and edema, Respiratory: Negative for shortness of breath, cough, wheezing, and pleuritic chest pain, Abdomen/GI: Negative for abdominal pain, nausea, vomiting, diarrhea, and constipation, Back: Negative for injury and pain, MS/Extremity: Negative for injury and deformity, Skin: Negative for injury, rash, and discoloration, Neuro: Negative for weakness, and seizure Exam: 15:18 Constitutional: This is a well developed, well nourished patient who is awake, alert, rn and in no acute distress. Head/Face: Normocephalic, atraumatic. Eyes: Pupils equal round and reactive to light, extra-ocular motions intact. Lids and lashes normal. Conjunctiva and sclera are non-icteric and not injected. Cornea within normal limits. Periorbital areas with no swelling, redness, or edema. Neck: Trachea midline, no masses palpated, and no cervical lymphadenopathy. Supple, full range of motion without nuchal rigidity, or vertebral point tenderness. No Meningismus. Cardiovascular: Regular rate and rhythm. No pulse deficits. Respiratory: Speaking full sentences. No increased work of breathing, no retractions or nasal flaring. Abdomen/GI: soft, non-tender Skin: Warm, dry MS/ Extremity: Pulses equal, no cyanosis. Neurovascular intact. Full, normal range of motion. Equal circumference. Neuro: Awake and alert, GCS 15, oriented to person, place, time, and situation. Cranial nerves II-XII grossly intact. Motor strength 5/5 in all extremities. Sensory grossly intact. Cerebellar exam normal. 15:40 ECG was reviewed by the Attending Physician. rn Vital Signs: 15:03 BP 117 / 64; Pulse 78; Resp 18; Temp 99.0; Pulse Ox 96% ; Pain 10/10; ll1 16:30 BP 128 / 70; Pulse 68; Resp 18; Pulse Ox 99% on R/A; em 17:45 BP 127 / 54; Pulse 65; Resp 18; Pulse Ox 97% on R/A; em 18:34 BP 131 / 73; Pulse 57; Resp 18; Pulse Ox 96% on R/A; em [place] Coma Score: 17:49 Eye Response: spontaneous(4). Verbal Response: oriented(5). Motor Response: obeys rn commands(6). Total: 15. MDM: 15:05 Patient medically screened. rn 17:49 Differential diagnosis: cerebral vascular accident, hypertensive headache, rn intracerebral hemorrhage, migraine, subarachnoid bleed, tension headache, trigeminal neuralgia, vasomotor headache. Data reviewed: vital signs, nurses notes, lab test result(s), EKG, radiologic studies, CT scan, and as a result, I will admit patient. Counseling: I had a detailed discussion with the patient and/or guardian regarding: the historical points, exam findings, and any diagnostic results supporting the discharge/admit diagnosis, lab results, the need for further work-up and treatment in the hospital. Response to treatment: the patient's symptoms have mildly improved after treatment, and as a result, I will admit patient. Admission orders: after a detailed discussion of the patient's condition and case, the admit orders are written by me. ED course: Pt with no acute findings of CT head/angio, neck angio. Will admit given neurological symptoms of paresthesia, although bilateral facial, but also trouble speaking. + hx of previous CVA as well as cerebral aneurysm. Notified by ALEJANDRINA May, with hospitalist group that MRI unavailable. Decision made to obtain MRA brain and neck, no acute findings on imaging, and after treatment of SALCEDO, symptoms resolved. Given neg CT angio as well as resolution of bilateral symptoms after headache treatment, will dc home with neuro f/u. No focal single lesion could explain her neurological symptoms, much more likely complicated migraine vs trigeminal neuralgia type picture. Return precautions given and understood. Spoke with patient and she wants to go home. . 11/14 15:13 Order name: CBC with Diff; Complete Time: 16:09 rn 11/14 15:13 Order name: Basic Metabolic Panel; Complete Time: 16:29 rn 11/14 15:13 Order name: CT Head Brain wo Cont; Complete Time: 15:44 rn 11/14 15:13 Order name: Protime (+inr); Complete Time: 16:29 rn 11/14 15:13 Order name: Ptt, Activated; Complete Time: 16:29 rn 11/14 15:13 Order name: Magnesium; Complete Time: 16:29 rn 11/14 15:13 Order name: IV Start; Complete Time: 15:45 rn 11/14 15:13 Order name: EKG; Complete Time: 15:13 rn 11/14 16:08 Order name: CT Head Angio; Complete Time: 17:45 rn 11/14 16:08 Order name: CT Neck Angio; Complete Time: 17:45 rn 11/14 15:13 Order name: EKG Strip; Complete Time: 15:45 rn 11/14 15:13 Order name: Glucose Level; Complete Time: 15:45 rn EC:40 Rate is 70 beats/min. Rhythm is regular. QRS [place] is Normal. AL interval is normal. QRS rn interval is normal. QT interval is normal. No Q waves. T waves are Normal. No ST changes noted. Clinical impression: Normal ECG. Interpreted by me. Reviewed by me. Administered Medications: 16:28 Drug: Aspirin Chewable Tablet 324 mg Route: PO; em 17:41 Follow up: Response: No adverse reaction em 16: Drug: foLIC Acid 1 mg Route: IVPB; Site: right antecubital; em 17:42 Follow up: Response: No adverse reaction; IV Status: Completed infusion em 16: Drug: NS 0.9% 500 ml Route: IV; Rate: bolus; Site: right antecubital; em 17:45 Follow up: IV Status: Completed infusion; IV Intake: 500ml em 16: Drug: Motrin 600 mg Route: PO; em 17:41 Follow up: Response: No adverse reaction; Marked relief of symptoms; Pain is decreased em Disposition: 11/15/19 18:40 Discharged to Home. Impression: Headache, Paresthesia of skin. - Condition is Stable. - Discharge Instructions: General Headache Without Cause, Paresthesia. - Medication Reconciliation Form, Thank You Letter, Antibiotic Education, Prescription Opioid Use form. - Follow up: Private Physician; When: As needed; Reason: Recheck today's complaints, Re-evaluation by your physician. - Problem is new. - Symptoms have improved. Signatures: Dispatcher [employer] Don Marie, RN RN Attila Whittington MD MD rn Lewis, Lynsay, RN RN ll1 Corrections: (The following items were deleted from the chart) 18:28 17:51 Hospitalization Ordered by Irma Palmer MD for Observation. Preliminary rn diagnosis is Paresthesia of skin; Slurred speech; Headache. Bed requested for Telemetry/MedSurg (observation). Status is Observation. Condition is Stable. Problem is new. Symptoms have improved. rn 18:37 18:28 11/15/2019 17:51 Hospitalization Ordered by Prince Amaury FUENTES for Observation. rn Preliminary diagnosis is Paresthesia of skin; Slurred speech; Headache. Bed requested for Telemetry/MedSurg (observation). Status is Observation. Condition is Stable. Problem is new. Symptoms have improved. rn 18:39 17:49 ED course: Pt with no acute findings of CT head/angio, neck angio. Will admit rn given neurological symptoms of paresthesia, although bilateral facial, but also trouble speaking. + hx of previous CVA as well as cerebral aneurysm. . rn 18:58 18:40 11/15/2019 18:40 Discharged to Home. Impression: Headache; Paresthesia of skin. em Condition is Stable. Forms are Medication Reconciliation Form, Thank You Letter, Antibiotic Education, Prescription Opioid Use. Follow up: Private Physician; When: As needed; Reason: Recheck today's complaints, Re-evaluation by your physician. Problem is new. Symptoms have improved. rn
--- NOTE | 2019-11-15 17:52 | ER ---
Nurse's Notes [facility] Name: Lorri Dotson Age: 69 yrs Sex: Female : 1950 Arrival Date: 11/15/2019 Time: 14:33 Bed 2 Private MD: Diagnosis: Headache;Paresthesia of skin Presentation: 11/14 15:03 Chief complaint: Patient states: SALCEDO, both cheeks feel numb, tongues feels heavy, back ll1 pain for 2 days. No fever. + nausea. No cough. [place] int. Lisa #[id number] used for park interpreter. Coronavirus screen: Client denies travel out of the [place] in the last 14 days. At this time, the client does not indicate any symptoms associated with coronavirus-19. The client reports previous COVID testing was negative. Ebola Screen: Patient denies travel to an Ebola-affected area in the 21 days before illness onset. Initial Sepsis Screen: Does the patient meet any 2 criteria? No. Patient's initial sepsis screen is negative. Risk Assessment: Do you want to hurt yourself or someone else? Patient reports no desire to harm self or others. Onset of symptoms was November 14, 2019. 15:03 Method Of Arrival: Ambulatory ll1 15:03 Acuity: SARAI 3 ll1 Historical: - Allergies: 15:05 No Known Allergies; ll1 - PMHx: 15:05 Diabetes - NIDDM; TIA; Hypertension; High Cholesterol; brain bleed; ll1 - PSHx: 15:05 brain surgery with clips; ll1 - Immunization history:: Flu vaccine is up to date. - Social history:: Smoking status: Patient denies any tobacco usage or history of. - Family history:: not pertinent. - Hospitalizations: : No recent hospitalization is reported. Screenin:20 Abuse screen: Denies threats or abuse. Nutritional screening: No deficits noted. em Tuberculosis screening: No symptoms or risk factors identified. Fall Risk None identified. Assessment: 15:20 General: Appears in no apparent distress. comfortable, Behavior is calm, cooperative, em appropriate for age. Pain: Complains of pain in right cheek and left cheek Pain currently is 10 out of 10 on a pain scale. Neuro: Level of Consciousness is awake, alert, obeys commands, Oriented to person, place, time, situation, Appropriate for age Speech is normal, state's she couldn't speak for about 2 hours earlier today but couldn't dial 911 because she couldn't speak. Reports headache numbness in tongue since 0600 this morning Denies paresthesias numbness. Cardiovascular: Capillary refill < 3 seconds Patient's skin is warm and dry. Respiratory: Airway is patent Respiratory effort is even, unlabored, Respiratory pattern is regular, symmetrical. GI: Reports nausea, Patient currently denies vomiting. Derm: Skin is intact, is healthy with good turgor, Skin is pink, warm \T\ dry. Musculoskeletal: Capillary refill < 3 seconds, Range of motion: intact in all extremities. 16:47 Reassessment: Patient appears in no apparent distress at this time. Patient and/or em family updated on plan of care and expected duration. Pain level reassessed. Patient is alert, oriented x 3, equal unlabored respirations, skin warm/dry/pink. 17:45 Reassessment: Patient appears in no apparent distress at this time. Patient and/or em family updated on plan of care and expected duration. Pain level reassessed. Patient is alert, oriented x 3, equal unlabored respirations, skin warm/dry/pink. 18:33 Reassessment: Patient appears in no apparent distress at this time. Patient and/or em family updated on plan of care and expected duration. Pain level reassessed. Patient is alert, oriented x 3, equal unlabored respirations, skin warm/dry/pink. Vital Signs: 15:03 BP 117 / 64; Pulse 78; Resp 18; Temp 99.0; Pulse Ox 96% ; Pain 10/10; ll1 16:30 BP 128 / 70; Pulse 68; Resp 18; Pulse Ox 99% on R/A; em 17:45 BP 127 / 54; Pulse 65; Resp 18; Pulse Ox 97% on R/A; em 18:34 BP 131 / 73; Pulse 57; Resp 18; Pulse Ox 96% on R/A; em [place] Coma Score: 17:49 Eye Response: spontaneous(4). Verbal Response: oriented(5). Motor Response: obeys rn commands(6). Total: 15. ED Course: 14:33 Patient arrived in ED. mr 15:05 Triage completed. ll1 15:05 Attila Whittington MD is Attending Physician. rn 15:06 Arm band placed on Patient placed in an exam room, on a stretcher. ll1 15:18 Don Mtz, RN is Primary Nurse. em 15:20 Patient has correct armband on for positive identification. Placed in gown. Bed in low em position. Call light in reach. Pulse ox on. NIBP on. 15:28 EKG done, by ED staff, reviewed by Attila Whittington MD. em 15:34 CT Head Brain wo Cont In Process Unspecified. EDMS 15:45 Initial lab(s) drawn, by me, sent to lab. Inserted saline lock: 20 gauge in right em antecubital area, using aseptic technique. Blood collected. 17:31 CT Head Angio In Process Unspecified. EDMS 17:32 CT Neck Angio In Process Unspecified. EDMS 17:51 Irma Palmer MD is Hospitalizing Provider. rn 18:28 Prince Rebolledo MD is Hospitalizing Provider. rn 18:58 No provider procedures requiring assistance completed. IV discontinued, intact, em bleeding controlled, No redness/swelling at site. Pressure dressing applied. Administered Medications: 16:28 Drug: Aspirin Chewable Tablet 324 mg Route: PO; em 17:41 Follow up: Response: No adverse reaction em 16:28 Drug: foLIC Acid 1 mg Route: IVPB; Site: right antecubital; em 17:42 Follow up: Response: No adverse reaction; IV Status: Completed infusion em 16:28 Drug: NS 0.9% 500 ml Route: IV; Rate: bolus; Site: right antecubital; em 17:45 Follow up: IV Status: Completed infusion; IV Intake: 500ml em 16:28 Drug: Motrin 600 mg Route: PO; em 17:41 Follow up: Response: No adverse reaction; Marked relief of symptoms; Pain is decreased em Intake: 17:45 IV: 500ml; Total: 500ml. em Outcome: 17:51 Decision to Hospitalize by Provider. rn 18:40 Discharge ordered by . rn 18:58 Discharged to home ambulatory. em 18:58 Condition: good 18:58 Discharge instructions given to patient, Instructed on discharge instructions, follow up and referral plans. Demonstrated understanding of instructions, follow-up care. 18:58 Patient left the ED. em Signatures: Dispatcher [employer] Sarai Stacy Don Buckner, RN RN Attila Singleton MD MD rn Stanford, Brian, ELIAS RN ll1
[2019-11-15 20:48] VITALS: TEMP 99
[2019-11-15 20:53] VITALS: BP 131/73; O2SAT 96
--- NOTE | 2019-11-17 06:00 | EKG ---
Test Date: 2019-11-15 Test Time: 15:30:31 Copyright Expert: ALONSO MEASUREMENT RESULTS: Intervals: Rate: 70 IN: 148 QRSD: 80 QT: 428 QTc: 462 [facility]: P: 25 IN: 148 QRS: -3 T: 25 INTERPRETIVE STATEMENTS: Normal sinus rhythm Normal ECG Compared to ECG 05/07/2019 21:14:16 No significant changes Electronically Signed On 11-17-19 05:56:17 CDT by Bennie Camejo
--- OUTSIDE RECORDS SUMMARY | 2019-11-18 07:53 | XMS REPORT | Continuity of Care Document ---
:1950 Author Organization [employer]) Information [employer]cean Care Team Providers Name Role Phone Jajah Unavailable Un available Problems Problem Status Onset Classification Date Comments Sourc e Date Reported Other specified 09/06/19 03/15/2018 [facility] disorders of brain 18 edical Center TIA Active 08/25/[address] ESTEFANIA BILLING Active 08/25/[address] POSSIBLE STROKE Active 08/25/[address] Center Weakness 03/15/2018 [facility] Hyperlipidemia, 03/15/2018 [facility] unspecified [facility] Type 2 diabetes 03/15/2018 [facility] mellitus with Medica l hyperglycemia Center Hypertensive 03/15/2018 [place] as chronic kidney Medic al disease with stage C enter 1 through stage 4 chronic kidney disease, or unspecified chronic kidney disease Type 2 diabetes 03/15/2018 [facility] mellitus with Medica l diabetic chronic [address]a ter kidney disease Chronic kidney 03/15/2018 [facility] melissaas disease, stage 2 Med ical (mild) Center Dependence on 03/15/2018 [facility] renal dialysis Medic al Center FPC 03/15/2018 [facility] (current) use of Med ical oral hypoglycemic Ce nter drugs Cerebral edema Active Problem 03/15/2018 [facility] (disorder) [facility] Center Diabetes mellitus Resolved Problem 03/15/2018 [facility] (disorder) Medical [place] Flaccid hemiplegia Active Problem 03/15/2018 [facility] (disorder) 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/15/2018 [facility] subarachnoid space edical of neuraxis Center (disorder) Hyperosmolality Active Problem 03/15/2018 [facility] with hypernatremia edical (disorder) Center Hypertensive Active Problem 03/15/2018 [place] as disorder, systemic M edical arterial Center (disorder) Obstructive Active Problem 03/15/2018 [place] hydrocephalus Medica [place] (disorder) Center Respiratory Active Problem 03[place]15[place] failure ([place]order[place]ical [place] Ventricular Active Problem 03/15/[place] (disorder) Center TRANSIENT CEREBRAL Active [facility] [place] ISCHEMIC ATTACK, [facility] ical [facility] Center Medications Medication Details Route Status Patient Ordering Order Source Instructions Provider Date Metformin 1,250 mg, Active [place] hydrochloride PO, 018 Medical 1000 MG Oral BID-Meals, # Center Tablet 180 tab, 1 Refill(s), Pharmacy: [id number] Plavix 75 mg, No Longer [facility] Route: PO, Active 018 Medical Drug form: Center TAB, Daily, Dosing Weight 77.273, kg, Start date: 08/26/17 9:00:00 CDT, Duration: 30 day, Stop date: 09/24/17 9:00:00 CDT Lovastatin 10 mg, No Longer [facility] Route: PO, Active 018 Medical Drug form: Center TAB, Daily, Dosing Weight 77.273, kg, Start date: 08/26/17 9:00:00 CDT, Duration: 30 day, Stop date: 09/24/17 9:00:00 CDT Lipitor Notes: (Same No Longer [facility] As: Lipitor) Active [address] [place] [address] Metformin 1,500 mg, No Longer [facility] hydrochloride PO, Active 018 Medical 1000 MG Oral BID-Meals, # Center Tablet 270 tab, 1 Refill(s), Pharmacy: [id number] clopidogrel 75 75 mg = 1 [place] mg oral tablet tab, PO, 018 Medical Daily, # 90 Center tab, 1 Refill(s), Pharmacy: [id number] lisinopril 20 mg 20 [...] Refill(s) Insulin Lispro Notes: (Same No Longer [facility] as: Humalog Active 018 Medical ) Roll in Center palms of hands gently; Do not shake `vigorously. "Single Patient Use Only " WASTE: F/P - Black; E - Municipal Trash Bin Stable for 28 days at room temperature. Expires in days from __Date Glucagon 1 mg, Route: No Longer [facility] IM, Drug Active 018 Medical form: Center [...] 12:10:00 CDT Plavix Notes: (Same No Longer [facility] As: Plavix) Active [address] [place] [address] Center Tylenol Notes: Do No Longer [facility] not exceed 4 Active 018 Medical gm/day. Center (Same as: Tylenol) Saline Flush Notes: (Same No Longer [place] 0.9% as: BD Active 018 Medical Posiflush) Center atorvastatin Notes: Same [place] Longer [place] Lipitor Active 018 [facility] Center heparin Notes: No Longer [facility] porcine Active 018 [facility] heparin Center Aspirin 81 MG Notes: Do No Longer [place] as Enteric Coated not crush or Active 018 Medi layla Tablet chew. (Same Center As: Ecotrin) Saline Flush Notes: (Same No Longer [place] 0.9% as: BD Active 018 Medical Posiflush) [place] iodixanol 100 mL, Inactive [facility] Route: IVP, 018 Medical Drug Form: Center [...] Ce nter p> pneumococcal 03/03/2016 Right completed [facility] [place] as 13-valent vaccine Deltoid Me dical Center Results Order Name Results Value Reference Date Interpretation Comments Imelda rce Range CHEM PANEL Phosphorus 5.0 2.5 - 4.5 08/[address] [facility] CHEM PANEL Magnesium Lvl 2.1 1.8 - 2.4 08/26 [place] [facility] CHEM PANEL eGFR 76 08/26 Result [...] CHEM PANEL Creatinine 0.81 0.50 - 08/26 [facility] Lvl 1.[address] [facility] CHEM PANEL Glucose Lvl 132 70 - 99 08/[address] [facility] CHEM PANEL Sodium Lvl 140 135 - 145 08/26 [facility] [facility] CHEM PANEL Potassium Lvl 4.6 3.5 - 5.1 08/26 [facility] CHEM PANEL BUN 19 7 - 22 08/[address] [facility] CHEM PANEL CO2 25 24 - 32 08/[address] [facility] CHEM PANEL Calcium Lvl 9.2 8.5 - 10.5 08/[address] [facility] CHEM PANEL Chloride Lvl 104 95 - 109 08/[address] [facility] CHEM PANEL AGAP 15.6 10.0 - 08/26 [place] 20.[address] [facility] HEMATOLOGY Monocytes 7.2 2.0 - 12.0 08/[address] [facility] HEMATOLOGY Segs 51.4 45.0 - 08/26 [place] 75.[address] [facility] HEMATOLOGY Lymphocytes 38.6 20.0 - 08/[address] [facility] HEMATOLOGY Lymphocytes # 3.2 1.0 - 5.5 08/26 [facility] HEMATOLOGY Eosinophils 1.9 0.0 - 4.0 08/26 [facility] HEMATOLOGY Basophils 0.9 0.0 - 1.0 08/26 [facility] HEMATOLOGY Neutrophils # 4.2 1.5 - 8.1 08/26 [facility] HEMATOLOGY Eosinophils # 0.2 0.0 - 0.5 08/26 [facility] HEMATOLOGY Basophils # 0.1 0.0 - 0.2 08/26 [facility] HEMATOLOGY Monocytes # 0.6 0.0 - 0.8 08/26 [facility] HEMATOLOGY WBC 8.2 3.7 - 10.4 08/[address] [facility] HEMATOLOGY Hct 38.7 36.0 - 08/26 [place] 48.[address] [facility] HEMATOLOGY RBC 4.18 4.20 - 08/26 [place] 5.[address] [facility] HEMATOLOGY Hgb 13.1 12.0 - 08/[address] [facility] HEMATOLOGY MPV 9.1 7.4 - 10.4 08/26 [facility] [facility] HEMATOLOGY RDW 13.1 11.5 - 08/26 [place] 14.[address] [facility] HEMATOLOGY Platelet 230 133 - 450 08/[address] [facility] HEMATOLOGY MCH 31.4 27.0 - 08/26 [facility] [place] 31.[address] [facility] HEMATOLOGY MCHC 33.9 32.0 - 08/26 [facility] 36.[address] [facility] HEMATOLOGY MCV 92.4 80.0 - 08/26 [facility] 98.[address] [facility] PARATHYROID Ca Ion WB 1.11 1.05 - 08/26 [facility] PROFILE 1. [facility] PARATHYROID Ca Norm WB 1.11 1.05 - 08/26 [facility] PROFILE 1. [facility] LIPIDS VLDL 22 08/24 [facility] LIPIDS LDL 67 <=99 mg/dL 08/24 [facility] (Calculated) /[address] [facility] LIPIDS HDL 30 >=61 mg/dL 08/24 [facility] LIPIDS Chol 119 <=199 08/24 [facility] mg/dL [facility] LIPIDS Trig 112 <=149 08/24 [facility] mg/dL [facility] LIPIDS CHD Risk 3.97 3.90 - 08/24 [facility] 5.[address] [facility] SPECIAL Hgb A1C 8.1 <=5.6 % 08/24 [facility] CHEMISTRY /[address] [facility] URINE AND UA RBC None Seen 0 - 2 08/24 [facility] [place] [facility] (08/24/17 3:04 PM) /2017 [facility] URINE AND UA WBC None Seen None Seen 08/24 [facility] [place] [facility] (08/24/17 3:04 PM) /2017 [facility] URINE AND UA Sq Epi Rare /LPF Few /LPF 08/24 [facility] [place] [facility] [address] [place] [address] URINE AND UA 0.2 0.1 - 1.0 08/24 [facility] STOOL Urobilinogen /[address] [place] [address] URINE AND UA Blood Negative Negative 08/24 [facility] STOOL (08/24/17 3:04 PM) /2017 [facility] URINE AND UA Nitrite Negative Negative 08/24 [facility] STOOL (08/24/17 3:04 PM) /2017 [facility] URINE AND UA Leuk Est Negative Negative 08/24 [facility] [place] [facility] (08/24/17 3:04 PM) /2017 [facility] URINE AND UA Bili Negative Negative 08/24 [facility] STOOL *NA* /2017 [facility] (08/24/17 3:04 PM) [place] URINE AND UA Ketones Negative Negative 08/24 [facility] STOOL mg/dL mg/dL [facility] URINE AND UA Protein Negative Negative 08/24 [facility] STOOL mg/dL mg/dL [facility] URINE AND UA Glucose Negative Negative 08/24 [facility] [place] [facility] mg/dL mg/dL [facility] URINE AND UA pH 6.0 5.0 - 8.0 08/24 [facility] [place] [facility] /[address] [facility] URINE AND UA Spec Grav 1.010 <=1.030 08/24 [facility] [place] [facility] [address] [place] [address] URINE AND UA Turbidity Clear Clear 08/24 [facility] [place] [facility] (08/24/17 3:04 PM) /[address] [place], [place] [address]a l [place] URINE AND UA Color Yellow Yellow 08/24 [facility] [place] [facility] *NA* /2017 Medical (08/24/17 3:04 PM) [place] CARDIAC Troponin-I <0.02 0.00 - 08/24 [facility] ENZYMES 0.[address] [facility] CARDIAC Total CK 88 12 - 191 08/24 [facility] ENZYMES /[address] [facility] ELECTROLYTES AGAP 15.5 10.0 - 08/24 [place] 20.[address] [facility] ELECTROLYTES CO2 23 24 - 32 08/[address] ELECTROLYTES Calcium Lvl 9.0 8.5 - 10.5 08/[address] [place] [facility] ELECTROLYTES Chloride Lvl 105 95 - 109 08/[place] [facility] ELECTROLYTES eGFR 77 08/24 Result Comment: [facility] eGFR is Center calculated using the [...] Sodium Lvl 139 135 - 145 08/[address] [facility] ELECTROLYTES BUN 15 7 - 22 08/[address] [facility] ELECTROLYTES Creatinine 0.80 0.50 - 08/24 [facility] Lvl 1.40 /[address] [facility] ELECTROLYTES Glucose Lvl 92 70 - 99 08/24 [facility] HEMATOLOGY Monocytes # 0.7 0.0 - 0.8 08/24 [facility] HEMATOLOGY Basophils 0.7 0.0 - 1.0 08/[address] [facility] HEMATOLOGY Neutrophils # 7.1 1.5 - 8.1 08/24 [facility] HEMATOLOGY Eosinophils # 0.1 0.0 - 0.5 08/24 [facility] HEMATOLOGY Basophils # 0.1 0.0 - 0.2 08/24 [facility] HEMATOLOGY Lymphocytes # 4.4 1.0 - 5.5 08/24 [facility] HEMATOLOGY Segs 57.1 45.0 - 08/24 [place] [address] [facility] HEMATOLOGY Lymphocytes 35.6 20.0 - 08/24 [place] 40.[address] [facility] HEMATOLOGY Monocytes 5.6 2.0 - 12.0 08/[address] [facility] HEMATOLOGY Eosinophils 1.0 0.0 - 4.0 08/[address] [facility] HEMATOLOGY PT 13.2 12.0 - 08/24 [place] 14.[address] [facility] HEMATOLOGY INR 1.00 0.85 - 08/24 [place] 1.[address] [facility] HEMATOLOGY MPV 8.0 7.4 - 10.4 08/[address] [facility] HEMATOLOGY MCHC 33.4 32.0 - 08/24 [place] 36.[address] [facility] HEMATOLOGY RDW 13.3 11.5 - 07 [place] 14.[address] [facility] HEMATOLOGY MCH 31.0 27.0 - 08/24 [place] 31.[address] [facility] HEMATOLOGY Platelet 269 133 - 450 08/[address] [facility] HEMATOLOGY Hct 40.1 36.0 - 07 [place] 48.0 /[address] [facility] HEMATOLOGY Hgb 13.4 12.0 - 07 [place] 16.[address] [facility] HEMATOLOGY MCV 92.8 80.0 - 08/24 [facility] [place] 98.0 /[address] [facility] HEMATOLOGY WBC 12.4 3.7 - 10.4 08/24 [facility] /[address] [facility] HEMATOLOGY RBC 4.32 4.20 - 08/24 [facility] 5.[address] [facility] HEMATOLOGY PTT 25.6 22.9 - 08/24 [facility] 35.8 /[address] [facility] Pathology Reports No Data Provided for This Section Diagnostic Reports Report Value Date Source Brain wo contrast MRI EXAM: MRI BRAIN WITHOUT CONTRAST 8 [facility] Medical DATE: 08/24/2017 549 PM CDT Cente [...] ent with previous preliminary report made by economic geographer resident programs assistant. 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 The vertebral arteries are p atent from [...] Source Temperature Oral (F) 98.0 F 08/26/2017 [facility] Respitory Rate 18 08/26/2017 [facility] Systolic (mm Hg) 126 08/26/2017 [facility] Center Diastolic (mm Hg) 83 08/26/2017 [facility] Heart Rate 67 08/26/2017 [facility] Heart Rate 60 08/26/2017 [facility] Respitory Rate 18 08/26/2017 [facility] Systolic (mm Hg) 109 08/26/2017 [facility] Diastolic (mm Hg) 61 08/26/2017 [facility] Temperature Oral (F) 98.8 F 08/26/2017 [facility] Temperature Oral (F) 97.5 F 08/26/2017 [facility] Heart Rate 60 08/26/2017 [facility] Systolic (mm Hg) 110 08/26/2017 [facility] dical Center Diastolic (mm Hg) 61 08/26/2017 [facility] Respitory Rate 18 08/26/2017 [facility] Weight 77.273 08/25/2017 [facility] BMI Calculated 42.64 08/25/2017 [facility] Height 134.62 cm 08/25/2017 [facility] BMI Calculated 29.24 08/24/2017 [facility] Height 162.56 cm 08/24/2017 [facility] Weight 77.273 08/24/2017 [facility] Weight 77.273 08/24/2017 [facility] BMI Calculated 29.24 08/24/2017 [facility] Height 162.56 cm 08/24/2017 [facility] Encounters Location Location Encounter Encounter Reason Attending ADM DC Stat us Source Details Type Number For Provider Date Date Visit [facility] Observation [id number] [place]on[place] 08/24 08/26 [facility] Kain Cavazos /2017 [facility] Procedures Procedure Code Date Perfomer Comments Source Craniotomy and [id number] [facility] clipping of [facility] intracranial [place] aneurysm Repair of aneurysm [id number] [place] as by [facility] Assessment and Plan Assessment and Plan Date Source Extracted from:Title: post discharge follow-up call 08/27/19 18 [facility] Author: Tory Lazo RN Date: 09/01/17 Completed post-discharge follow-up call for this patient on August 28, 2017 at 3:49PM. 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 At OSH, NIHSS 3, non-con trast CT obtained there w/out bleed. Transferred to [facility] for HLOC, but by time of arrival [...] Discharge Instructions/Recommendations: [facility] [place] [facility] in the [facility]. We suspect that you had a [...] follow up with a stroke doctor or FLIGHT OPERATIONS MANAGER to prevent a future stroke. It is [...] a follow-up appointment sched reza in the [facility] on 09/12/17 at 10:30 AM to follow up on management of your stroke. - Please call your PCP to schedule an ap pointment within 2-4 weeks for post- hospitalization follow-up and management of your overall health. Please call our nurse navigator Tory ([phone]) with any questions after discharge. Please take your discharge paperwork with you to your follow-up appointments. Returning back to work will be addressed at your follow-up appointment. Stroke clinic address: [facility] [address] , [address] [place] [address] I spent 35 minutes today discussing the above plan of care with the team and patient and answering all questions, as well as reconciling medications, coordinating follow up and discharge to home. Suspec t TIA with plan for secondary prevention as above. Less likely seizure given patient admits to recalling entire episode and transient FILM PAINTER, and EEG findings. Paitent understands to return to call 911 if repeat episode or any new focal weakness numbness difficulty speaking or swallowing or vision changes or dizziness. Exam nonfocal today. Patient was not discharged before noon as she had been pendi ng EEG. Gita Méndez MD Assistance Professor, Vascular Neurology [phone] Extracted from:Title: Stroke History&Physical Author: Kameron Nguyễn MD Date: 08/24/17 Stroke History and Physical Chief Complaint: Left sided weakness HPI: 67 yo F wiht PMH of HTN, right SAH s/p R Pcomm clipping, asymptomatoc clipping of L Pcomm presented to [facility] with left sided weakness, left sided facial droop. LSN 11 am. She was at [facility] with the family and all of sudden [...] (prev MRN for more hx w/clipp ing [id number]) Family Medical History: No significant fam hx [...] 2-neithe r 1c. 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 [...] asymptomatoc clipping of L Pcomm presented to [facility] with left sided weakness, left sided facial [...] Code THE FOLLOWING WERE PRESENT ON ADMISSION: SENIOR INTERNATIONAL TAX MANAGER - Chronic Stroke, Seizures?, SAH rule out. [...] (None) Kameron Nguyễn MD Neurology PGY-3 [facility] [id number] Vascular Neurology Fellow Addendum I saw and [...] History Date Source Social History TypeResponse 03/12/2016 [facility] Substance Abuse Use: None. Alcohol Current, Type [...]
--- OUTSIDE RECORDS SUMMARY | 2019-11-18 07:59 | XMS REPORT | Continuity of Care Document ---
:1950 Author Organization [facility] t Address [address] [place] [address] Care Team Providers Name Role Phone Srini [...] l TIA 00:00: [place] 00 Active 08/24/2017 [facility] ESTEFANIA Diagnosis Active 2017-11-27 Memoria BILLING 08-24 09:54:00 l 00:00: [place] MAC 00 BILLING Active 08/24/2017 [facility] POSSIBLE Diagnosis Active 2017-08-24 M emoria STROKE 08-24 14:50:00 l POSSIBLE 00:00: Jimi flower STROKE 00 Active 08/24/2017 [facility] LEFT Diagnosis Active 2016-06-19 Mem oria POSTERIOR - 11:51:00 l COMMUNICAT LEFT 00:00: Jimi flower ING ARTERY POSTERIOR 00 ANEU COMMUNICAT ING ARTERY ANEU Active 06/07/2016 [facility] LFLT Diagnosis Active 2016-08-17 Mem oria TRANSFER -16 06:30:00 l #[id number] LFLT 00:00: [place] TRANSFER 00 #[id number] Active 02/26/2016 [facility] SAH Diagnosis Active 2016-08-17 Mem oria -15 06:29:00 l SAH 23:30: [place] 00 Active 02/25/2016 [facility], Rehabilita tion Weakness Problem 2018-03-15 Mem oria 14:07:55 l Weakness Jimi n 03/15/2018 [facility] Hyperlipid Problem 2018-03-15 M emoria emia, 14:07:55 l unspecifie Jimi n d Hyperlipid emia, unspecifie d 03/15/2018 [facility] Type 2 Problem 2018-03-15 Memor ia diabetes 14:07:55 l mellitus Type 2 Jimi n with diabetes hyperglyce mellitus bart with hyperglyce bart 03/15/2018 [facility] Hypertensi Problem 2018-03-15 M emoria ve chronic 14:07:55 l kidney [place] disease Hypertensi with stage ve chronic 1 through kidney stage 4 disease chronic with stage kidney 1 through disease, stage 4 or chronic unspecifie kidney d chronic disease, kidney or disease unspecifie d chronic kidney disease 03/15/2018 [facility] Type 2 Problem 2018-03-15 Memor ia diabetes 14:07:55 l mellitus Type 2 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 chronic kidney disease 03/15/2018 [facility] Chronic Problem 2018-03-15 Derick rodney kidney 14:07:55 l disease, Chronic Jazmin nn stage 2 kidney (mild) disease, stage 2 (mild) 03/15/2018 [facility] Dependence Problem 2018-03-15 M emoria on renal 14:07:55 l dialysis [place] Dependence on renal dialysis 03/15/2018 [facility] intermediate Problem 2018-03-15 Me moria (current) 14:07:55 l use of Long [place] oral term hypoglycem (current) ic drugs use of oral hypoglycem ic drugs 03/15/2018 [facility] Diabetes Problem Resolve 2018-03-15 Me moria mellitus d 14:07:55 l (disorder) Diabetes He rmann mellitus (disorder) Resolved Problem 03/15/2018 [facility] Cerebral Problem Active 2018-03-15 Mem oria edema 14:07:55 l (disorder) Cerebral He rmann edema (disorder) Active Problem 03/15/2018 [facility] 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 14:07:55 l (disorder) Flaccid [place] hemiplegia (disorder) Active Problem 03/15/2018 [facility] Hemorrhage Problem Active 2018-03-15 M emoria into 14:07:55 l subarachno Jimi n id space Hemorrhage of into neuraxis subarachno (disorder) id space of neuraxis (disorder) Active Problem 03/15/2018 [facility] Hyperosmol Problem Active 2018-03-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:07:55 l hypernatre Jimi n bart Hyperosmol (disorder) ality with hypernatre bart (disorder) Active Problem 03/15/2018 [facility] Hypertensi Problem Active 2018-03-15 M emoria ve 14:07:55 l disorder, [place] systemic Hypertensi arterial ve (disorder) disorder, systemic arterial (disorder) Active Problem 03/15/2018 [facility] Obstructiv Problem Active 2018-03-15 M emoria e 14:07:55 l hydrocepha Jimi n adam Obstructiv (disorder) e hydrocepha adam (disorder) Active Problem 03/15/2018 [facility] Respirator Problem Active 2018-03-15 M emoria y failure 14:07:55 l (disorder) Jimi n Respirator y failure (disorder) Active Problem 03/15/2018 [facility] Ventricula Problem Active 2018-03-15 M emoria r 14:07:55 l hemorrhage Jimi n (disorder) Ventricula r hemorrhage (disorder) Active Problem 03/15/2018 [facility] TRANSIENT Diagnosis Active 2017-12-09 Memoria CEREBRAL 11:24:00 l ISCHEMIC [place] ATTACK, TRANSIENT UNSP CEREBRAL ISCHEMIC ATTACK, UNSP Active [facility] NONTRAUMAT Diagnosis Active 2016-08-17 Memoria IC 06:29:00 l SUBARACHNO Jimi n ID NONTRAUMAT HEMORRHAGE IC , UN SUBARACHNO ID HEMORRHAGE , UN Active [facility] NONTRAUMAT Diagnosis Active 2016-08-17 Memoria IC 06:29:00 l INTRACEREB Jimi n RAL NONTRAUMAT HEMORRHAGE IC , U INTRACEREB RAL HEMORRHAGE , U Active Rehabilita tion CEREBRAL Diagnosis Active 2016-06-19 M emoria ANEURYSM, 11:51:00 l NONRUPTURE CEREBRAL He rmann D ANEURYSM, NONRUPTURE D Active [facility] Other Problem 2018-03-15 2018-03-15 M emoria specified 09-05 14:07:55 14:07:55 l disorders Other 02:58: Jimi n of brain specified 50 disorders of brain 8 03/15/2018 [facility] Allergies, Adverse Reactions, Alerts This patient has no known allergies or adverse reactions. Social History Social Habit Start Date Stop Date Quantity Comments Source Social History 2016-03-12 2016-03-12 [facility] wanda 04:05:16 04:05:16 Medications Ordered Filled Start Stop Current Ordering Indication Dosage Frequency Signature Comments Components Source Medication Medication Date Date Medication? Clinician (SIG) Name Name Metformin 2018-0 Yes 1,250 mg, Mem oria hydrochlori -17 PO, l de 1000 MG 21:02: BID-Meals, H wanda Oral Tablet 17 # 180 tab, 1 Refill(s), Pharmacy: [id number] Plavix 2018-0 No 75 mg, [...] 00 # 270 tab, 1 Refill(s), Pharmacy: [id number] clopidogrel Yes 75 mg = 1 M emoria 75 mg oral 7-16 tab, PO, l tablet 21:58: Daily, # [place] 00 90 tab, 1 Refill(s), Pharmacy: [id number] lisinopril Yes 20 mg = 1 Me moria 20 mg oral 7-16 tab, PO, l tablet 18:11: Daily, 0 [place] 00 Refill(s) Metformin No 1,000 mg = Me moria hydrochlori 7-16 1 tab, PO, l de 1000 MG 18:11: BID-Meals, H ermann Oral Tablet 00 # 30 tab, 0 Refill(s) lovastatin Yes 10 mg = 1 Me moria 10 mg oral 7-16 tab, PO, l tablet 18:11: Daily, 0 [place] 00 Refill(s) glimepiride Yes 4 mg = 1 Me moria 4 MG Oral 7-16 tab, PO, l Tablet 18:11: Daily, 0 [place] [Amaryl] 00 Refill(s) Insulin No Notes: Memoria [...] n 7-16 Same as l 02:00: Lipitor [place] 00 heparin No Notes: Memoria 7-15 porcine l 21:00: heparin [place] Aspirin 81 No Notes: Do Me moria MG Enteric 7-15 not crush l Coated 20:00: or chew. [place] Tablet 00 (Same As: Ecotrin) Saline No Notes: Memoria Flush 0.9% 7-15 (Same as: l 19:44: BD [place] 00 Posiflush) iodixanol No 100 mL, Memor ia 7-15 Route: l 19:16: IVP, Drug Form: SOLN, kg, ONCALL, STAT, Start date: 08/24/17 14:16:00 CDT, Duration: 1 doses or times, Dose = 2.2ml/kg, Max dose = 100ml -- "To be infused by Radiology Staff ONLY" Saline No Notes: Memoria Flush 0.9% 7-15 (Same as: l 19:05: BD [place] 00 Posiflush) Ondansetron Yes 4 mg = 1 Me moria 4 MG Oral 5-11 tab, PO, l Tablet 14:55: Q8H, PRN [place] [Zofran] 00 Nausea/vom iting, X 10 day, [...] Posiflush Sterile sennosides, No Notes: Derick rodney ALF 5-11 (Same as: l 02:00: Senokot) Docusate No Notes: Memoria 5-11 (Same as: l 02:00: Colace) (Do Not Crush) Tylenol No Notes: Do Memor ia 5-11 not exceed l 00:10: 4 gm/day. [place] 00 (Same as: Tylenol) Insulin No 60 Memoria regular 5-10 units) l 21:10: WASTE: F/P [place] - Black; E - Municipal Trash Bin Stable for 28 days at room temperatur e Expires in days from ____Date Glucagon 0 No 1 mg, Memoria 5-10 Route: IM, l 21:10: Drug form: [place] 00 PDR/INJ, PRN, Dosing Weight 72.727, kg, [...] WASTE: F/P l 18:36: - Sink; E [place] 00 - Municipal Trash Bin sodium No [...] 18:36: Mag-Ox [place] 00 400) Magnesium oxide [id number] g elemental magnesium Dose=____m g magnesium oxide (___mg elemental magnesium) potassium No Notes: Memori a chloride 5-10 (Same as: l 18:36: Potassium [place] 00 Chloride) Calcium No Notes: Memoria Carbonate 5-10 (Same As: l 500 MG 18:36: Tums) [place] Chewable 00 Calcium Tablet Carbonate 500 mg = 200 mg elemental calcium Dose = mg calcium carbonate ( mg elemental calcium) Calcium No Notes: Memoria Gluconate 5-10 WASTE: F/P l 18:36: - Sink; E [place] - Municipal Trash Bin Sodium No 1,000 mL, Memori a Chloride 5-10 Rate: 75 l 0.154 18:36: ml/hr, [place] MEQ/ML 00 Infuse Injectable over: 13.3 Solution [...] ia 350 5-10 Route: l 15:26: INTRAARTER [place] 00 IAL, Dosing Weight 72.727, kg, ONCE, Start date: 06/19/16 10:26:00 CDT, Stop date: 06/19/16 10:26:00 CDT Lipitor Yes PO, Daily, Derick rodney 5-10 0 l 11:21: Refill(s) Aspirin Yes 325 mg, Memoria 5-10 PO, 0 l 11:14: Refill(s) [place] 00 ceFAZolin No Notes: Memori a 5-10 Same as: l 06:00: Ancef [place] 00 Acetaminoph Yes 650 mg, Mem oria [...] needed for itching, Start date: 03/24/16 12:08:00 FACING BASTER JUMPBASTING, Duration: 30 day, Stop date: 04/23/16 12:07:00 CDT Eucerin No Notes: Memoria Plus 2-12 (Same as: l topical 18:08: Cetaphil Jimi n lotion 00 Lotion) Nimodipine No Notes: Memor ia 2-11 (Same as l 03:00: Nimodipine [place] oral suspension 30mg/ml) Instill dose into NG tube and then flush with 30ml of NS emollients, No Notes: Derick rodney topical 2-10 (Same as: l lotion 02:00: Cetaphil [place] 00 Lotion) SMOG Enema No Notes: Non M emoria 03-21 formulary l 22:50: item saline for irrigation (1L bottle) 100 mL, mineral oil 100 mL, glycerine 100 mL. Dispense (300 ml) in 1L NS bottle Bisacodyl No Notes: Memori a 2- (Same As: l 22:49: Dulcolax, [place] Bisco-Lax) magnesium No Notes: Memori a citrate 03-21 (Same as: l 58.2 MG/ML 22:49: Citrate of H ermann Oral Magnesia) Solution Concentrat ion: 1.745 gm / 30 mL mineral oil No 30 ml, Derick rodney 03-21 Route: PO, l 16:24: Drug Form: LIQ, Dosing Weight 75, kg, ONCE, Start date: 03/21/16 10:24:00 FACING BASTER JUMPBASTING, Stop date: 03/21/16 10:24:00 FACING BASTER JUMPBASTING Milk of No Notes: Memoria Magnesia - [...] Roll in l Human 18:27: palms of [place] hands gently; Do not shake vigorously . (Same as: NovoLOG) "single patient use only" WASTE: F/P - Black; E - Municipal Trash Bin Stable for 28 days at room temperatur e. Expires in days from ____Date Dextrose No 12.5 gm, Memor ia 50% Syringe 03-18 25 mL, l 18:27: Route: [place] 00 IVP, Drug Form: INJ, Dosing Weight 75, kg, PRN, PRN Blood Glucose Results, Start date: 03/18/16 12:27:00 FACING BASTER JUMPBASTING, Duration: 30 day, Stop date: 04/17/16 12:26:00 FACING BASTER JUMPBASTING Glucagon No 1 mg, Memoria 03-18 Route: IM, l 18:27: Drug form: [place] 00 PDR/INJ, PRN, Dosing Weight 75, kg, PRN Blood Glucose Results, Start date: 03/18/16 12:27:00 FACING BASTER JUMPBASTING, Duration: 30 day, Stop date: 04/17/16 12:26:00 FACING BASTER JUMPBASTING Insulin, No 4 unit, Memori a Aspart, 2- Route: l Human 04:18: SUB-Q, [place] 00 ONCE, Dosing Weight 75, kg, Start date: 03/15/16 22:18:00 FACING BASTER JUMPBASTING, Stop date: 03/15/16 22:18:00 FACING BASTER JUMPBASTING Insulin, No Notes: Memoria Aspart, 2-03 Roll in l Human 04:46: palms of [place] 00 hands gently; Do not shake vigorously . (Same as: NovoLOG) "single patient use only" WASTE: F/P - Black; E - Municipal Trash Bin Stable for 28 days at room temperatur e. Expires in days from ____Date Cipro No Notes: May Memori a 2-02 interfere l 17:00: w/enteral [place] 00 feedings - Take 1 hr before [...] Weight 75, kg, Start date: 03/13/16 11:30:00 FACING BASTER JUMPBASTING, Duration: 30 day, Stop date: 04/12/16 6:30:00 FACING BASTER JUMPBASTING Insulin No Notes: Memoria Glargine 03-13 Same as: l 17:30: Lantus) Do not hold insulin without contacting prescriber WASTE: F/P - Black; E - Municipal Trash Bin Glucagon No 1 mg, Memoria 03-13 Route: IM, l 16:07: PRN, Dosing Weight 75, kg, PRN Blood Glucose Results, Start date: 03/13/16 10:07:00 FACING BASTER JUMPBASTING, Duration: 30 day, Stop date: 04/12/16 10:06:00 FACING BASTER JUMPBASTING Dextrose No 25 mL, Memoria 50% Syringe 03-13 Route: l 16:07: IVP, Dosing Weight 75, kg, PRN, PRN Blood Glucose Results, Start date: 03/13/16 10:07:00 FACING BASTER JUMPBASTING, Duration: 30 day, Stop date: 04/12/16 10:06:00 FACING BASTER JUMPBASTING Melatonin 3 No Notes: Derick rodney MG Extended 03-13 (Same as: l Release 03:00: Melatonin) Herm Glucagon No 1 mg, Memoria 03-12 Route: IM, l 21:24: Drug form: [place] PDR/INJ, PRN, Dosing Weight 75, kg, PRN Blood Glucose Results, Start date: 03/12/16 15:24:00 FACING BASTER JUMPBASTING, Duration: 30 day, Stop date: 04/11/16 15:23:00 FACING BASTER JUMPBASTING Dextrose No 25 gm, 50 Derick rodney 50% Syringe 1-31 mL, Route: l 21:24: IVP, Drug [place] 00 Form: INJ, Dosing Weight 75, kg, PRN, PRN Blood Glucose Results, Start date: 03/12/16 15:24:00 FACING BASTER JUMPBASTING, Duration: 30 day, Stop date: 04/11/16 15:23:00 FACING BASTER JUMPBASTING Insulin, No Notes: Memoria Aspart, - Roll in l Human 21:24: palms of [place] 00 hands gently; Do not shake vigorously . (Same as: NovoLOG) "single patient use only" WASTE: F/P - Black; E - Municipal Trash Bin Stable for 28 days at room temperatur e. Expires in days from ____Date sennosides, No Notes: Derick rodney ALF 03-12 (Same as: l 18:00: Senokot) [place] Saline No Notes: Memoria Flush 0.9% 03-12 (Same as: l 15:00: BD [place] Posiflush) Keppra No Notes: Memoria - (Same l 15:00: as:Keppra) [place] 00 Buspar No Notes: Memoria - (Same [...] Dissolve l 14:00: in 8 oz of [place] water or juice. (Same as: Miralax) Docusate No Notes: Memoria 1-31 (Same as: l 14:00: Colace) [place] (Do Not Crush) Insulin, No Notes: Memoria Aspart, - Roll in l Human 09:15: palms of [place] 00 hands gently; Do not shake vigorously . (Same as: NovoLOG) "single patient use only" WASTE: F/P - Black; E - Municipal Trash Bin Stable for 28 days at room temperatur e. Expires in days from ____Date Dextrose 2016-0 No 25 gm, 50 Edrick rodney 50% Syringe 1-31 mL, Route: l 09:15: IVP, Drug [place] 00 Form: INJ, Dosing Weight 75, kg, PRN, PRN Blood Glucose Results, Start date: 03/12/16 3:15:00 FACING BASTER JUMPBASTING, Duration: 30 day, Stop date: 04/11/16 3:14:00 FACING BASTER JUMPBASTING Glucagon No 1 mg, Memoria 03-12 Route: IM, l 09:15: Drug form: [place] PDR/INJ, PRN, Dosing Weight 75, kg, PRN Blood Glucose Results, Start date: 03/12/16 3:15:00 FACING BASTER JUMPBASTING, Duration: 30 day, Stop date: 04/11/16 3:14:00 FACING BASTER JUMPBASTING Sodium 2016- No 1 gm, 1 Memoria Chloride 03-12 tab, l 1000 MG 06:00: Route: PO, Herm suhas Oral Tablet 00 Drug form: TAB, Q6H, Dosing Weight 90.009, kg, Start date: 03/12/16 0:00:00 FACING BASTER JUMPBASTING, Duration: 30 day, Stop date: 04/10/16 18:00:00 FACING BASTER JUMPBASTING Nimodipine No Notes: Memor ia 03-12 (Same [...] 30 = 1 mL, l 23:13: SUB-Q, [place] 00 Q8H, 0 Refill(s) bisacodyl Yes 10 mg = 1 Mem oria 10 mg 30 supp, IL, l rectal 23:13: ONCE, PRN Jimi n [...] kg, Priority: NOW, Start date: 03/09/16 18:11:00 FACING BASTER JUMPBASTING, Duration: 30 day, Stop date: 04/08/16 18:00:00 FACING BASTER JUMPBASTING Ancef + 2017-0 No Notes: Memoria sodium [...] Weight 90.009 kg, Start date: 03/08/16 6:25:00 FACING BASTER JUMPBASTING, Duration: 1 doses or times, Stop date: 03/08/16 6:25:00 FACING BASTER JUMPBASTING Sodium 2017-0 No 250 mL, Memoria Chloride 1-26 250 ml/hr, l 0.154 20:24: Infuse [place] MEQ/ML 00 Over: 1 Injectable hr, Route: Solution IV, 250, Drug form: INJ, ONCE, Priority: STAT, Dosing Weight 90.009 kg, Start date: 03/07/16 14:24:00 FACING BASTER JUMPBASTING, Duration: 1 doses or times, Stop date: 03/07/16 14:24:00 FACING BASTER JUMPBASTING Sodium 2017-0 No 500 mL, Memoria Chloride 1-25 500 ml/hr, l 0.154 13:54: Infuse [place] MEQ/ML 00 Over: 1 Injectable hr, Route: Solution IV, 500, Drug form: INJ, ONCE, Priority: STAT, Dosing Weight 90.009 kg, Start date: 03/06/16 7:54:00 FACING BASTER JUMPBASTING, Duration: 1 doses or times, Stop date: 03/06/16 7:54:00 FACING BASTER JUMPBASTING Sodium 2017-0 No 500 mL, Memoria Chloride 1-25 500 ml/hr, l 0.154 12:30: Infuse [place] MEQ/ML 00 Over: 1 Injectable hr, Route: Solution IV, 500, Drug form: INJ, ONCE, Priority: STAT, Dosing Weight 90.009 kg, Start date: 03/06/16 6:30:00 FACING BASTER JUMPBASTING, Duration: 1 doses or times, Stop date: 03/06/16 6:30:00 FACING BASTER JUMPBASTING Racepinephr 2017-0 No Notes: Derick rodney ine 22.5 -24 (racepinep l MG/ML 09:00: hrine [place] Inhalant 00 *2.25% inh Solution 0.5ml SOLN) (Same as:S2) Dexamethaso No Notes: Derick rodney ne 03-05 Concentrat l 06:42: ion: [place] 00 4mg/ml Ondansetron No Notes: Derick rodney 03-04 (Same as: l 23:03: Zofran) [place] 00 MEDICATION WASTE Product Size: 4 mg Product Wasted: ___ mg Flumazenil No Notes: Memor ia 03-04 (Same as: l 23:03: Romazicon) Naloxone No Notes: Memoria 03-04 Same as l 23:03: Narcan [place] 00 Labetalol No 10 mg, 2 Derick rodney 03-04 mL, Route: l 23:03: IVP, Drug [place] 00 form: INJ, Q5Min, Dosing Weight 90.009, kg, PRN Elevated BP, Start date: 03/04/16 17:03:00 FACING BASTER JUMPBASTING, Duration: 5 doses or times, Stop date: Limited # of times esmolol No 10 mg, Memoria 03-04 Route: l 23:03: IVP, [place] 00 Q5Min, Dosing Weight 90.009, kg, PRN Other -See Comment, Start date: 03/04/16 17:03:00 FACING BASTER JUMPBASTING, Duration: 5 doses or times, Stop date: Limited # of times Morphine No Notes: Memoria 03-04 (Same l 23:03: as:MORPhin [place] 00 e Sulfate) Omnipaque No 150 ml, Memor ia 300 03-04 Route: l 22:39: INTRAARTER [place] 00 IAL, Dosing Weight 90.009, kg, ONCE, Start date: 03/04/16 16:39:00 FACING BASTER JUMPBASTING, Stop date: 03/04/16 16:39:00 FACING BASTER JUMPBASTING Ampicillin No Notes: Memor ia 03-04 (Same as: l 14:00: Principen) [place] 00 MEDICATION WASTE Product Size: 1000 mg Product Wasted: ___ mg Dulcolax No Notes: Memoria Laxative 03-04 (Same As: l 13:17: Dulcolax, [place] 00 Bisco-Lax) magnesium No Notes: Memori a [...] Weight 90.009 kg, Start date: 03/03/16 8:37:00 FACING BASTER JUMPBASTING, Duration: 1 doses or times, Stop date: 03/03/16 8:37:00 FACING BASTER JUMPBASTING Sodium No 500 mL, Memoria Chloride 22 500 ml/hr, l 0.154 03:40: Infuse [place] MEQ/ML 00 Over: 1 Injectable hr, Route: Solution IV, 500, Drug form: INJ, ONCE, Priority: STAT, Dosing Weight 90.009 kg, Start date: 03/02/16 21:40:00 FACING BASTER JUMPBASTING, Duration: 1 doses or times, Stop date: 03/02/16 21:40:00 FACING BASTER JUMPBASTING Tylenol No Notes: Max Derick rodney 03-02 acetaminop l 16:25: hen = [place] 00 4000mg/day (4 gm/day). (Same as: Tylenol) Dulcolax No Notes: Memoria Laxative 03-02 (Same As: l 15:14: Dulcolax, [place] 00 Bisco-Lax) Sodium No 1,000 mL, Memori a Chloride 03-02 1,000 l 0.154 15:04: ml/hr, [place] MEQ/ML 00 Infuse Injectable Over: 1 Solution hr, Route: IV, 1,000, Drug form: INJ, ONCE, Priority: STAT, Dosing Weight 90.009 kg, Start date: 03/02/16 9:04:00 FACING BASTER JUMPBASTING, Duration: 1 doses or times, Stop date: 03/02/16 9:04:00 FACING BASTER JUMPBASTING Dexamethaso No Notes: Derick rodney ne 1-21 Give with l 15:00: food. [place] 00 (Same As: Decadron) Zantac No Notes: Memoria 1-21 (Same l 03:00: as:Zantac) [place] 00 Take before or with meals Racepinephr [...] Memoria 1-20 microgram, l 03:21: 20 mL, [place] 00 Rate: Titrate, Start Dose: 50 microgram/ [...] Total Volume: 1,000, Start date: 02/29/16 10:01:00 FACING BASTER JUMPBASTING, Stop date: 03/30/16 10:00:00 FACING BASTER JUMPBASTING magnesium No Notes: Memori a citrate 1-19 (Same as: l 58.2 MG/ML 15:24: Citrate of H ermann Oral 00 Magnesia) Solution Concentrat ion: 1.745 gm / 30 mL Streptococc No Notes: Derick rodney us 1-19 (Same as: l pneumoniae 15:00: Prevnar Herm suhas serotype 1 00 13) capsular antigen diphtheria [id number] protein conjugate vaccine / Streptococc us pneumoniae serotype 14 capsular antigen diphtheria [id number] protein conjugate vaccine / Streptococc us pneumoniae [...] 1-19 500 ml/hr, l 0.154 05:36: Infuse [place] MEQ/ML 00 Over: 1 Injectable hr, Route: Solution IV, 500, Drug form: INJ, ONCE, Priority: STAT, Dosing Weight 90.009 kg, Start date: 02/28/16 23:36:00 FACING BASTER JUMPBASTING, Duration: 1 doses or times, Stop date: 02/28/16 23:36:00 FACING BASTER JUMPBASTING Sodium No 1,000 mL, Memori a Chloride 1-19 1,000 l 0.154 04:21: ml/hr, [place] MEQ/ML 00 Infuse Injectable Over: 1 Solution hr, Route: IV, 1,000, Drug form: INJ, ONCE, Priority: STAT, Dosing Weight 90.009 kg, Start date: 02/28/16 22:21:00 FACING BASTER JUMPBASTING, Duration: 1 doses or times, Stop date: 02/28/16 22:21:00 FACING BASTER JUMPBASTING Insulin No 60 Memoria regular 1-18 units) [...] Blood Glucose Results, Start date: 02/28/16 10:21:00 FACING BASTER JUMPBASTING, Duration: 30 day, Stop date: 03/29/16 10:20:00 FACING BASTER JUMPBASTING Glucagon No 1 mg, Memoria 1-18 Route: IM, l 16:21: Drug form: [place] 00 PDR/INJ, PRN, Dosing Weight 90.009, kg, PRN Blood Glucose Results, Start date: 02/28/16 10:21:00 FACING BASTER JUMPBASTING, Duration: 30 day, Stop date: 03/29/16 10:20:00 FACING BASTER JUMPBASTING insulin, No Notes: Memoria isophane 1-18 Roll [...] Syringe 1-18 12.5 mL, l 12:56: Route: [place] 00 IVP, Drug Form: INJ, Dosing Weight 90.009, kg, PRN, PRN Abnormal Lab Result, Start date: 02/28/16 6:56:00 FACING BASTER JUMPBASTING, Duration: 30 day, Stop date: 03/29/16 6:55:00 FACING BASTER JUMPBASTING heparin No Notes: Memoria 1-18 porcine l 06:01: heparin Famotidine No Notes: Memor ia 18 (Same as: l 03:00: Pepcid) Levetiracet No Notes: Derick rodney am 500 MG 02-27 (Same l Oral Tablet 03:00: as:Keppra) [place] [Keppra] Dexamethaso No Notes: Derick rodney ne 02-26 Give with l 18:00: food. [place] 00 (Same As: Decadron) chlorhexidi No Notes: Derick rodney ne 02-26 (Same As: l gluconate 18:00: Peridex) Herm suhas 1.2 MG/ML 00 Mouthwash Sodium No 1,000 mL, Memori a Chloride 02-26 1,000 l 0.154 08:42: ml/hr, [place] MEQ/ML 00 Infuse Injectable Over: 1 Solution hr, Route: IV, 1,000, Drug form: INJ, ONCE, Priority: STAT, Dosing Weight 90.009 kg, Start date: 02/27/16 2:42:00 FACING BASTER JUMPBASTING, Duration: 1 doses or times, Stop date: 02/27/16 2:42:00 FACING BASTER JUMPBASTING Cefazolin No Notes: Memori a 02-26 (Same As: l 07:00: Ancef, [place] Kefzol) Cefazolin FOR IV SET ONLY MEDICATION WASTE Product Size: 1000 mg Product Wasted: _0_ mg sodium No Notes: Memoria chloride 3% 02-26 "Administe l INJ 500 mL 06:34: r by [place] 00 central venous catheter or a peripheral [...] Weight 90.009 kg, Start date: 02/26/16 22:47:00 FACING BASTER JUMPBASTING, Duration: 1 doses or times, Stop date: 02/26/16 22:47:00 FACING BASTER JUMPBASTING Mannitol No Notes: Memoria 02-26 (Same as: l 04:29: Osmitrol) [place] 00 Infuse through 5 micron or smaller filter WASTE: F/P - Sink; E - Municipal Trash Bin chlorhexidi No Notes: Derick rodney ne 02-26 (Same As: l gluconate 03:00: Peridex) Herm suhas 1.2 MG/ML 00 Mouthwash Calcium No Notes: Memoria Carbonate 02-26 (Same As: l 500 MG 02:51: Tums) [place] Chewable 00 Calcium Tablet Carbonate 500 mg [...] Oxide 02-26 (Same as: l 02:51: Mag-Ox [place] 00 400) Magnesium oxide [id number] g elemental magnesium Dose=____m g magnesium oxide [...] Abnormal Lab Result, Start date: 02/26/16 20:51:00 FACING BASTER JUMPBASTING, Duration: 30 day, Stop date: 03/27/16 20:50:00 FACING BASTER JUMPBASTING, FOR ICU USE ONLY potassium No Notes: Memori a chloride 02-26 (Same as: l 02:51: Potassium Chloride) Dextrose No 12.5 gm, Memor ia 50% Syringe 02-26 25 mL, l 02:50: Route: [place] 00 IVP, Drug Form: INJ, Dosing Weight 90.009, kg, PRN, PRN Blood Glucose Results, Start date: 02/26/16 20:50:00 FACING BASTER JUMPBASTING, Duration: 30 day, Stop date: 03/27/16 20:49:00 FACING BASTER JUMPBASTING Insulin No Notes: Memoria regular 100 02-26 (Same as: l unit + 02:50: Humulin R Jimi n sodium 00 and chloride NovoLIN R) 0.9% INJ 99 WASTE: mL F/P - Black; E - [employer] Trash Bin (Do not shake) Fentanyl No [...] 10 MG Oral hen. Tablet (Same as: [[place] 10/325] 325/10) Ancef No 1 gm, [facility] 16 Route: l 23:15: IVPB, [place] 00 ONCE, Dosing Weight 90.009, kg, Start date: 02/26/16 17:15:00 FACING BASTER JUMPBASTING, Stop date: 02/26/16 17:15:00 FACING BASTER JUMPBASTING Ancef No 2 gm, [facility] 1-16 Route: IV, l 20:15: ONCE, [place] 00 Dosing Weight 90.909, kg, Start date: 02/26/16 14:15:00 FACING BASTER JUMPBASTING, Duration: 1 doses or times, Stop date: 02/26/16 14:15:00 FACING BASTER JUMPBASTING, Surgical Prophylaxi s Only; For patients < 120 kg Propofol 10 No 1,000 mg, M emoria MG/ML -16 100 mL, l Injectable 17:59: Rate: Jimi n Suspension 00 Titrate, Start Dose: 5 microgram/ kg/min, Titration: 5 microgram/ kg/min every 15 min, Goal(s): MAP 70-100, Max Dose: 50 microgram/ kg/min, Route: IV, Dosing Weight 90.909 kg, Total Volume: 100, Start date: 02/26/16 11:59:00 FACING BASTER JUMPBASTING,... Fentanyl No Notes: [facility] 1-16 (Same as: l 17:58: Sublimaze) Preservat cristina free. chlorhexidi No Notes: Derick rodney ne -16 (Same As: l gluconate 15:39: Peridex) Herm suhas 1.2 MG/ML 00 Mouthwash Ancef + No Notes: [facility] sodium -16 (Same As: l chloride 15:38: Ancef, [place] 0.9% INJ 00 Kefzol) 100 mL MEDICATION WASTE Product Size: 1000 mg Product Wasted: ___ mg Docusate No Notes: [facility] 1-16 (Same as: l 15:00: Colace) Famotidine No Notes: [facility] ia -16 (Same as: l 15:00: Pepcid) sennosides, No Notes: Derick rodney ALF -16 (Same as: l 15:00: Senokot) Levetiracet No Notes: Derick rodney am -16 Same as l 15:00: Keppra [place] 00 Mix with 100 mL NS, LR or D5W MEDICATION WASTE Product Size: 500 mg Product Wasted: ___ mg Omnipaque 2017-0 No 150 ml, [facility] ia 350 1-16 Route: l 14:56: INTRAARTER [place] 00 IAL, Dosing Weight 90.909, kg, ONCE, Start date: 02/26/16 8:56:00 FACING BASTER JUMPBASTING, Stop date: 02/26/16 8:56:00 FACING BASTER JUMPBASTING Nimodipine 2017-0 No Notes: [facility] ia -16 (Same as l 12:00: Nimodipine oral suspension 30mg/ml) Instill dose into NG tube and then flush with 30ml of NS Dexamethaso 2016-0 No Notes: Derick rodney ne 02-25 Concentrat l 12:00: ion: [place] 00 4mg/ml Keppra 2016-0 No 500 mg, [facility] 16 Route: IV, l 11:39: ONCE, Dosing Weight 90.909, kg, Start date: 02/26/16 5:39:00 FACING BASTER JUMPBASTING, Stop date: 02/26/16 5:39:00 FACING BASTER JUMPBASTING Ondansetron 2017-0 No 4 mg, [facility] ia 16 Route: l 11:31: IVP, Drug form: INJ, ONCE, Dosing Weight 90.909, kg, Priority: STAT, Start date: 02/26/16 5:31:00 FACING BASTER JUMPBASTING, Stop date: 02/26/16 5:31:00 FACING BASTER JUMPBASTING Morphine 2017-0 No 4 mg, [facility] 16 Route: l 11:31: IVP, ONCE, Dosing Weight 90.909, kg, Priority: STAT, Start date: 02/26/16 5:31:00 FACING BASTER JUMPBASTING, Stop date: 02/26/16 5:31:00 FACING BASTER JUMPBASTING Dextrose 2017-0 No 6.25 gm, Memor ia 50% Syringe 16 12.5 mL, l 10:09: Route: IVP, Drug Form: INJ, Dosing Weight 90.909, kg, PRN, PRN Abnormal Lab Result, Start date: 02/26/16 4:09:00 FACING BASTER JUMPBASTING, Duration: 30 day, Stop date: 03/27/16 4:08:00 FACING BASTER JUMPBASTING Regular 2017-0 No 60 Mem[facility] Insulin, 1-16 units) l Human 100 10:09: WASTE: F/P He rmann UNT/ML 00 - Black; E Injectable - Solution [employer] Trash Bin Stable for 28 days at room temperatur e Expires in days from ____Date Sodium 2017-0 No 1,000 mL, Memori a Chloride 16 Rate: 75 l 0.154 10:09: ml/hr, [place] MEQ/ML 00 Infuse Injectable over: 13.3 Solution hr, Route: IV, Dosing Weight 90.909 kg, Total Volume: 1,000, Start date: 02/26/16 4:09:00 FACING BASTER JUMPBASTING, Duration: 30 day, Stop date: 03/27/16 4:08:00 FACING BASTER JUMPBASTING iodixanol No 100 mL, Mem[facility] ia 16 Route: l 09:43: IVP, Drug [place] 00 Form: SOLN, Dosing Weight 90.909, kg, ONCALL, STAT, Start date: 02/26/16 3:43:00 FACING BASTER JUMPBASTING, Duration: 1 doses or times, Dose = [...] Systolic (mm Hg) 2017-08-26 22:04:00 Derick rial [place] Diastolic (mm Hg) 2017-08-26 22:04:00 Mem orial [place] Heart Rate 2017-08-26 22:04:00 [facility] [place] Heart Rate 2017-08-26 17:41:00 [facility] [place] Respitory Rate 2017-08-26 17:41:00 [facility] al [place] Systolic (mm Hg) 2017-08-26 17:41:00 Derick rial [place] Diastolic (mm Hg) 2017-08-26 17:41:00 Mem orial [place] Temperature Oral (F) 2017-08-26 17:41:00 98.8 F [facility] [place] Temperature Oral (F) 2017-08-26 15:05:00 97.5 F [facility] [place] Heart Rate 2017-08-26 15:05:00 [facility] [place] Systolic (mm Hg) 2017-08-26 15:05:00 Derick rial [place] Diastolic (mm Hg) 2017-08-26 15:05:00 Mem [facility] [place] Respitory Rate 2017-08-26 15:05:00 [facility] [place] Weight 2017-08-25 14:36:00 [facility] [place] BMI Calculated 2017-08-25 14:36:00 [facility] [place] Height 2017-08-25 14:36:00 134.62 cm [facility] [place] BMI Calculated 2017-08-24 22:40:00 [facility] [place] Height 2017-08-24 22:40:00 162.56 cm [facility] [place] Weight 2017-08-24 22:40:00 [facility] [place] Weight 2017-08-24 22:24:00 [facility] [place] BMI Calculated 2017-08-24 22:24:00 [facility] [place] Height 2017-08-24 22:24:00 162.56 cm [facility] [place] Weight 2016-06-20 14:40:00 [facility] [place] Respitory Rate 2016-06-20 13:35:00 [facility] [place] Systolic (mm Hg) 2016-06-20 13:00:00 Derick rial [place] Diastolic (mm Hg) 2016-06-20 13:00:00 Mem orial [place] Respitory Rate 2016-06-20 13:00:00 [facility] [place] Systolic (mm Hg) 2016-06-20 12:00:00 Derick rial [place] Diastolic (mm Hg) 2016-06-20 12:00:00 Mem o[facility] [place] Respitory Rate 2016-06-20 12:00:00 [facility] [place] Systolic (mm Hg) 2016-06-20 11:00:00 Derick rial [place] Diastolic (mm Hg) 2016-06-20 11:00:00 Mem orial [place] BMI Calculated 2016-06-19 11:22:00 [facility] al [place] Weight 2016-06-19 11:22:00 [facility] [place] Height 2016-06-19 11:22:00 162.56 cm [facility] [place] Heart Rate 2016-06-19 11:22:00 [facility] [place] Height 2016-06-18 16:25:00 162.56 cm [facility] [place] BMI Calculated 2016-06-18 16:25:00 [facility] [place] Weight 2016-06-18 16:25:00 [facility] [place] Temperature Oral (F) 2016-03-29 13:26:00 97.9 F [facility] [place] Systolic (mm Hg) 2016-03-29 13:26:00 Derick rial [place] Diastolic (mm Hg) 2016-03-29 13:26:00 Mem orial [place] Heart Rate 2016-03-29 13:26:00 [facility] [place] Temperature Oral (F) 2016-03-29 05:10:00 98.5 F [facility] [place] Heart Rate 2016-03-29 05:10:00 [facility] [place] Systolic (mm Hg) 2016-03-29 05:10:00 Derick rial [place] Diastolic (mm Hg) 2016-03-29 05:10:00 Mem orial [place] Respitory Rate 2016-03-29 05:10:00 [facility] [place] Respitory Rate 2016-03-28 20:00:00 [facility] [place] Systolic (mm Hg) 2016-03-28 20:00:00 Dercik rial [place] Diastolic (mm Hg) 2016-03-28 20:00:00 Mem orial [place] Temperature Oral (F) 2016-03-28 20:00:00 98.3 F [facility] [place] Heart Rate 2016-03-28 20:00:00 [facility] [place] Respitory Rate 2016-03-28 12:35:00 [facility] [place] Weight 2016-03-12 04:00:00 [facility] [place] BMI Calculated 2016-03-12 04:00:00 [facility] [place] Height 2016-03-12 04:00:00 162.56 cm [facility] [place] Weight 2016-03-12 03:52:00 [facility] [place] BMI Calculated 2016-03-12 03:52:00 [facility] [place] Height 2016-03-12 03:52:00 162.56 cm [facility] [place] Systolic (mm Hg) 2016-03-12 02:39:00 Derick rial [place] Diastolic (mm Hg) 2016-03-12 02:39:00 Mem orial [place] Respitory Rate 2016-03-12 02:39:00 [facility] al [place] Heart Rate 2016-03-12 02:39:00 [facility] [place] Temperature Oral (F) 2016-03-12 02:39:00 100.1 F [facility] [place] Systolic (mm Hg) 2016-03-12 02:00:00 Derick rial [place] Diastolic (mm Hg) 2016-03-12 02:00:00 Mem orial [place] Systolic (mm Hg) 2016-03-11 22:55:00 Derick rial [place] Diastolic (mm Hg) 2016-03-11 22:55:00 Mem orial [place] Heart Rate 2016-03-11 22:55:00 [facility] [place] Respitory Rate 2016-03-11 22:55:00 [facility] al [place] Temperature Oral (F) 2016-03-11 22:55:00 98.3 F [facility] [place] Temperature Oral (F) 2016-03-11 18:04:00 98.0 F [facility] [place] Respitory Rate 2016-03-11 18:04:00 [facility] [place] Heart Rate 2016-03-11 18:04:00 [facility] [place] Height 2016-03-01 20:30:00 160.02 cm [facility] [place] Height 2016-03-01 16:58:00 160.02 cm [facility] [place] Height 2016-03-01 13:44:00 160.02 cm [facility] [place] Weight 2016-02-26 22:08:00 [facility] [place] BMI Calculated 2016-02-26 22:08:00 Mem[facility] al [place] [...] and ce Selective catheter 2016-03-04 21:55:00 [facility] [place] placement, vertebral artery, unilateral, with angiography of the ipsilateral vertebral circulation and all associated radiological supervision and interpretation, includes angiography of the cervicocerebral arch, when performed Craniotomy and clipping of Memor ial [place] intracranial aneurysm Repair of aneurysm by [facility] Encounters Start End Encounter Admission Attending Care Care Encounter Source Date/Time Date/Time Type Type Clinicians Facility Department ID 2019-04-04 2019-04-05 Emergency Bryan Milligan [facility] [id number] 05:56:22 14:32:00 Teena Corby Wall [id number] [place] [id number] [place] [id number] 2019-04-04 2019-04-04 Orders Doctor MARY ANN [id number] 00:00:00 00:00:00 Only Unassigned, FOREIGN 350.1.13.10 [place] [facility] [id number] 2017-08-24 2017-08-26 Outpatient Dirk [facility] [id number] 14:08:00 18:16:00 Veronika 67 Violet 2016-06-19 2016-06-20 Outpatient Dionne Ji [facility] [id number] 05:36:00 12:22:00 Marco 01 2016-03-11 2016-03-29 Outpatient FrancoisAriananewton [facility] [id number] 21:51:00 12:50:00 os, Boom 00 José Manuel 2016-02-26 2016-03-11 Outpatient Mae [facility] [id number] 02:37:00 21:43:00 Rayray Karimi 67 Results Test Description Test Time Test Comments Results Result [facility] e Comments SCR MAMM - SCR MAMM BILATERAL BILATERAL DAVE 6 DAVE CAD CAD DIGITAL 15:55:39 DIGITALBILATERAL DIGITAL SCREENING MAMMOGRAM 3D/2D WITH CAD: 12/10/2017CLINICAL: Asymptomatic. Digital breast tomosynthesis was performed in addition to routine CC and MLO views. Current mammographic images were evaluated by either a indoo[employer]rs M-Vu or a [employer] ImageChecker CAD (computer aided detection system). No [...] mammography in one year. Deshaun jacinto/jose:12/16/2017 15:55:39 Programs Assistant: Nneka Kahn MM, [facility] Mammographyletter sent: BIRADS 1-2 Normal Mammogram BI-RADS: 2 Benign CHEM PANEL 2017-08-10 5.0 [facility] 7 [place] 06:55:00 CHEM PANEL 2017-08-10 2.1 [facility] 7 [place] 06:55:00 CHEM PANEL 2017-08-10 76 [facility] 7 [place] 06:55:00 CHEM PANEL 2017-08-10 0.81 [facility] 7 [place] 06:55:00 CHEM PANEL 2017-08-10 132 [facility] 7 [place] 06:55:00 CHEM PANEL 2017-08-10 140 [facility] 7 [place] 06:55:00 CHEM PANEL 2017-08-10 4.6 [facility] 7 [place] 06:55:00 CHEM PANEL 2017-08-10 19 [facility] 7 [place] 06:55:00 CHEM PANEL 2017-08-10 25 [facility] 7 [place] 06:55:00 CHEM PANEL 2017-08-10 9.2 [facility] 7 [place] 06:55:00 CHEM PANEL 2017-08-10 104 [facility] 7 [place] 06:55:00 CHEM PANEL 2017-08-10 15.6 [facility] 7 [place] 06:55:00 HEMATOLOGY 2017-08-10 7.2 [facility] 7 [place] 06:55:00 HEMATOLOGY 2017-08-10 51.4 [facility] 7 [place] 06:55:00 HEMATOLOGY 2017-08-10 38.6 [facility] 7 [place] 06:55:00 HEMATOLOGY 2017-08-10 3.2 [facility] 7 [place] 06:55:00 HEMATOLOGY 2017-08-10 1.9 [facility] 7 [place] 06:55:00 HEMATOLOGY 2017-08-10 0.9 [facility] 7 [place] 06:55:00 HEMATOLOGY 2017-08-10 4.2 [facility] 7 [place] 06:55:00 HEMATOLOGY 2017-08-10 0.2 [facility] 7 [place] 06:55:00 HEMATOLOGY 2017-08-10 0.1 [facility] 7 [place] 06:55:00 HEMATOLOGY 2017-08-10 0.6 [facility] 7 [place] 06:55:00 HEMATOLOGY 2017-08-10 8.2 [facility] 7 [place] 06:55:00 HEMATOLOGY 2017-08-10 38.7 [facility] 7 [place] 06:55:00 HEMATOLOGY 2017-08-10 4.18 [facility] 7 [place] 06:55:00 HEMATOLOGY 2017-08-10 13.1 [facility] 7 [place] 06:55:00 HEMATOLOGY 2017-08-10 9.1 [facility] 7 [place] 06:55:00 HEMATOLOGY 2017-08-10 13.1 [facility] 7 [place] 06:55:00 HEMATOLOGY 2017-08-10 230 [facility] 7 [place] 06:55:00 HEMATOLOGY 2017-08-26 06:55:00 Test Item Value Reference Range Interpretation Comme nts MCH (test code = MCH) 31.4 pg 27.0-31.0 Memorial OetcaasYBGKEZIBAF5505-44-30 06:55:0033.9[facility] HermannHEMATOLOGY 2017-08-26 06:55:0092.4[facility] HermannPARATHYROID FOJRSLZ3732-58-44 06:55:00 1.11[facility] HermannPARATHYROID NYXHUCB3972-35-83 06:55:001.11[facility] [place] ZZUQBH1769-50-82 20:04:00 Test Item Value Reference Range Interpretation Comments VLDL (test code = VLDL) 22 1 Memorial WkhrshhIZXPFW8972-37-86 20:04:0067[facility] IftkvmoDQSCMU7939-62-47 20:04:0030[facility] FqtanagPEZLFA1389-20-02 20:04:85139Mjaqhxfp HermannLIPIDS 2017-08-24 20:04:30996Ozqmzuma GptjxfqDTAKAA1471-57-24 20:04:00 Test Item Value Reference Range Interpretation Comments CHD Risk (test code = CHD Risk) 3.97 1 3.90-5.80 [facility] HermannSPECIAL JLVIYASYI0439-10-00 20:04:008.1[facility]annURINE AND JLWKO7167-52-26 20:04:00None Seen (08/24/17 3:04 PM)[facility] AND XULBQ4057-39-17 20:04:00None Seen (08/24/17 3:04 PM)[facility] QFNYS6089-52-76 20:04:000.2[facility]UR[facility] AND ZFWPJ0755-12-28 20:04:00 Negative (08/24/17 3:04 PM)[facility] ZKOOT7161-69-65 20:04:00 Negative (08/24/17 3:04 PM)[facility] AXYFK4221-01-95 20:04:00 Negative (08/24/17 3:04 PM)[facility] TTYHL5730-43-33 20:04:00 Negative *NA*(08/24/17 3:04 PM)[facility] ZEKFE8188-49-43 20:04:00 Test Item Value Reference Range Interpretation Comments UA pH (test code = UA pH) 6.0 1 5.0-8.0 [facility] EESRU6639-76-12 20:04:00 Test Item Value Reference Range Interpretation Comments UA Spec Grav (test code = UA Spec 1.010 1 Grav) [facility] UXUHR1071-99-98 20:04:00Clear (08/24/17 3:04 PM) [facility] XEEYM7234-74-01 20:04:00Yellow *NA*(08/24/17 3:04 PM) [facility] HermannCARDIAC MBBQCSE1924-32-47 19:18:26<0.02[facility] [place] CARDIAC KUISLZP1075-76-23 19:18:2688[facility] WswpzehHFSSFBMEQIAU0774-64-54 19:18:2615.5[facility] JjozvqhUUDGUENNFACW2730-42-31 19:18:2623[facility] [place] CHFBOAPXCFZT8316-09-51 19:18:269.0[facility] RhtfxqoHQJDBPVCMPOX2153-52-77 19:18:73562Ytctgdnv JddzwimWUZCAQCTPXIO5146-25-11 19:18:2677[facility] [place] QGFJFWEQYBMM7293-07-39 19:18:264.5[facility] MtvnfydCJBCUWEXIBFE2088-32-57 19:18:27986Vfsmwhxz XvklxenYFPCOHNZISGP3964-02-22 19:18:2615[facility] [place] NVOILFCXYUJS5637-41-90 19:18:260.80[facility] LmilyqlFGLNBLYHVHEE5906-44-71 19:18:2692[facility] RctdrtcLQGOUPTHHI6955-16-32 19:18:260.7[facility] [place] URCACRQNZA8302-13-53 19:18:260.7[facility] NwgfassIKMNRUDIEV4389-87-46 19:18:267.1 [facility] XionudoMEOFTMQMFW3920-94-20 19:18:260.1[facility] HermannHEMATOLOGY 2017-08-24 19:18:260.1[facility] KbiddqaHZCWKUVAIH2099-60-90 19:18:264.4[facility] CjewidvBGZGCSBLSE6293-46-51 19:18:2657.1[facility] BjdvuzaXBJDAJGLXS6869-76-50 19:18:2635.6[facility] IamzwvgAXEZCJCPTW7785-27-22 19:18:265.6[facility] [place] XNUVEXFRMG3612-77-38 19:18:261.0[facility] GwzpcuoMCDKBXJYNL6061-39-53 19:18:26 Test Item Value Reference Range Interpretation Comments PT (test code = PT) 13.2 s 12.0-14.7 [facility] HlwctjsVCXCPFFOTY0094-40-97 19:18:26 Test Item Value Reference Range Interpretation Comments INR (test code = INR) 1.00 1 0.85-1.17 [facility] SoievbyAMLQRKSPFJ3937-30-55 19:18:268.0[facility] HermannHEMATOLOGY 2017-08-24 19:18:2633.4[facility] LahhakmNUZDRUOAZH6585-91-97 19:18:2613.3[facility] WkobykzVFJGVIFAXC5394-80-29 19:18:26 Test Item Value Reference Range Interpretation Comments MCH (test code = MCH) 31.0 pg 27.0-31.0 [facility] BlsvtkvNXJBTHBDTE2355-60-16 19:18:87348Lgkwvuaf HermannHEMATOLOGY 2017-08-24 19:18:2640.1[facility] WvzachkFHDSMGZZFJ6186-41-36 19:18:2613.4[facility] IdecnlgZSKVCHLXVX4919-15-26 19:18:2692.8[facility] BvvwqflFPELQILUXI7193-76-29 19:18:2612.4[facility] ZrflfnyDRNIYWFGWY1876-83-79 19:18:264.32[facility] [place] MYPDFFWDPP0725-48-09 19:18:26 Test Item Value Reference Range Interpretation Comments PTT (test code = PTT) 25.6 s 22.9-35.8 [facility] HermannCHEM POYTR8215-50-68 04:36:0089[facility] HermannCHEM PANEL 2016-06-20 04:36:0015.2[facility] HermannCHEM SHAYE3152-24-83 04:36:008.7[facility] HermannCHEM MLUFE1574-89-76 04:36:000.71[facility] HermannCHEM UZVEH0662-04-71 04:36:004.2[facility] HermannCHEM KXGTM0056-77-46 04:36:20670Dsdwdpri HermannCHEM ZGSSW8574-40-77 04:36:0025[facility] HermannCHEM TJIQM5945-41-90 04:36:80640 [facility] HermannCHEM BCFPS8630-11-31 04:36:96810Jrjrjaef HermannCHEM PANEL 2016-06-20 04:36:0013[facility] HermannCHEM UBHYH6371-67-19 04:36:002.1[facility] HermannCHEM QYVXA4153-12-14 04:36:003.3[facility] SeaxajzWXBKYINTTW8999-36-90 04:36:004.34[facility] FmgqaxbYWIVDAOUDM7700-49-78 04:36:009.5[facility] [place] ZOSIBJPYLQ2404-25-48 04:36:0013.4[facility] KbzftmpKFZGAJDANT6350-38-64 04:36:00 33.8[facility] SeaexsrPMWXSUGMWS3437-18-49 04:36:00 Test Item Value Reference Range Interpretation Comments MCH (test code = MCH) 30.8 pg 27.0-31.0 [facility] PgtoqmxIJFKAWQRYG6071-92-38 04:36:0013.2[facility] HermannHEMATOLOGY 2016-06-20 04:36:0091.0[facility] MshvfbyTVIHXVWPOZ7555-89-22 04:36:0039.5[facility] SjtszvxYPEQXKCKCT2643-23-10 04:36:08818Tplsxtbl BldvytxLFFAPCDSPY2727-56-04 04:36:008.0[facility] CursfasKOWEGZWIGR0815-72-59 04:36:0077.7[facility] [place] FHROVUGZST8749-90-81 04:36:0019.0[facility] GnjlhaeVZUOEPLVYU4202-53-89 04:36:00 0.3[facility] AdrjacsXKOUBNWVUX8396-63-39 04:36:001.8[facility] HermannHEMATOLOGY 2016-06-20 04:36:003.1[facility] YdgpqxnGXXVZKYVCG0911-70-21 04:36:000.2[facility] TrmbpedUBYMIKQYHS3298-78-42 04:36:007.4[facility] HermannPARATHYROID PROFILE 2016-06-20 04:36:001.10[facility] HermannPARATHYROID CKVMBZU8209-22-22 04:36:00 1.10[facility] HermannBACTERIAL - DZEXBYQO7900-37-80 20:52:00Negative (06/19/16 3:52 PM)[facility] YnmadpzJKTNJLGURO7245-83-27 12:54:00 Test Item Value Reference Range Interpretation Comments PTT (test code = PTT) 27.8 s 22.9-35.8 [facility] IyzwyofRLMOLZOWWO0130-40-57 12:54:00 Test Item Value Reference Range Interpretation Comments PT (test code = PT) 14.0 s 12.0-14.7 [facility] BbcdgkiKKDNCKKNUO8564-39-67 12:54:001.06[facility] HermannHEMATOLOGY 2016-06-19 12:54:97069Jckqpxys QhpskirESUYORQNLS6799-40-55 12:54:40374Ljflvmux PirektxYJAVYOIIPEWF1448-24-16 11:51:004.2[facility] FhhcjulGIYRGYTLMAVB9038-08-06 11:51:000.61[facility] XdhmnxmFMFDFGJSMFNP4057-13-21 11:51:75490Onxgkfpg [place] HWRJIJYKBVWG5181-16-86 11:51:0095[facility] VwivcvnZUOPSTBNOARL1327-44-96 11:51:00 103[facility] DvngfbgMQHMPCGKQHEJ7879-87-20 11:51:0026[facility] HermannELECTROLYTES 2016-06-19 11:51:009.2[facility] CuqnnxlLKTDCVPBXQXQ5790-93-36 11:51:0014.2 [facility] UhtijavYPXXYYKTIWXR5681-71-24 11:51:0020[facility] HermannELECTROLYTES 2016-06-19 11:51:57792Ptzfphxy GrykupjRDGFKHOGOO2358-54-13 11:51:16919Rzgksqgu VzlbylwQVNCGBFIWR5366-63-39 11:51:0012.3[facility] AgqgqlnOJBQPQRVEM1981-87-14 11:51:0033.1[facility] FjravycKTISXBYWHS7941-31-74 11:51:007.9[facility] [place] HLEQRNPYIN2855-58-65 11:51:0040.4[facility] WqoffwsEVZQJFLNDS4067-55-14 11:51:00 13.4[facility] XjdejwnFBQYSKJUXU0874-64-63 11:51:0010.0[facility] HermannHEMATOLOGY 2016-06-19 11:51:004.43[facility] GuexkleNTEKPGUHEH4203-46-95 11:51:0091.1[facility] XnineytQSKBTZVPIE2229-27-29 11:51:00 Test Item Value Reference Range Interpretation Comments MCH (test code = MCH) 30.2 pg 27.0-31.0 [facility] JdxqfpjYDAZOPGBYR5976-68-63 11:51:000.1[facility] HermannHEMATOLOGY 2016-06-19 11:51:000.0[facility] LdjxwffNRATEGDLTQ8792-37-74 11:51:000.0[facility] IgicubyHCIXWDPZLC9317-76-74 11:51:001.2[facility] OzkoorrRHHXWLIOXR6966-98-41 11:51:000.4[facility] KmeeoeqPQRQUQEBZA4588-77-63 11:51:004.7[facility] [place] NDJGXUNIQQ5451-92-95 11:51:004.8[facility] TwuicsoTWDJRJJORV9955-61-93 11:51:00 47.6[facility] IigqzduYSFADPTKLE4174-08-56 11:51:0046.9[facility] HermannHEMATOLOGY 2016-06-19 11:51:004.3[facility]annURINE AND IQZVQ3902-20-32 22:55:001 [facility] KUDVP5402-85-26 22:55:00<1[facility] AND SIUOL3447-61-62 22:55:00Clear (03/23/16 4:55 PM)[facility]UR[facility] AND STOOL 2016-03-23 22:55:001.011[facility]annUR[facility] AND GYNBS1905-50-94 22:55:006.0 [facility] PDPHU4273-04-39 22:55:00Yellow *NA*(03/23/16 4:55 PM) [facility] FEPZX4975-32-41 22:55:00Negative *NA*(03/23/16 4:55 PM) [facility] UOURR8963-69-86 22:55:00Negative (03/23/16 4:55 PM) [facility] HYMEU6532-83-09 22:55:00Negative (03/23/16 4:55 PM) [facility] EYDWX7516-26-11 22:55:00Negative (03/23/16 4:55 PM) [facility] QBOYJ2334-42-92 12:16:0021[facility]annCHEM PANEL 2016-03-22 12:16:0015.2[facility] LOUQI9441-48-65 12:16:004.0[facility] EXOMJ7908-61-22 12:16:000.8[facility]CHE[facility] FZWFP9579-64-57 12:16:0076[facility]CHE[facility] XYSKU0955-86-28 12:16:000.3[facility]CHE[facility] UPBJN3247-77-59 12:16:0028[facility]CHE[facility] CHKZL8539-00-72 12:16:009.2 [facility] OFLMU1641-40-11 12:16:003.1[facility]annCHE[facility] PANEL 2016-03-22 12:16:004.2[facility]CHE[facility] MSOOX6085-47-86 12:16:0097[facility] GIFXE8618-80-83 12:16:007.1[facility]annCHE[facility] BHQEB7558-48-42 12:16:0034[facility]CHE[facility] SMGAD0390-91-95 12:16:0059[facility]CHE[facility] HHHFF7530-84-82 12:16:0086[facility]CHE[facility] VPAVP9902-81-62 12:16:83335 [facility] IHLCW1047-62-20 12:16:50484Nhozttkh HermannCHEM PANEL 2016-03-22 12:16:0017[facility]annCHE[facility] TNCUT4101-24-65 12:16:000.82[facility] HilaudoCZJPKIUGWS8870-11-27 12:16:004.2[facility] TtcvenxQLKARZILFY0067-68-35 12:16:002.5[facility] ZaqblycSLDSWUXOLT3695-78-99 12:16:000.6[facility] WRFDCFJORP3907-46-91 12:16:002.1[facility] QckzpcoBNHSSNHSDO1221-78-12 12:16:000.6 [facility] FibruasBQHMCGVBDF4584-93-18 12:16:000.2[facility]annHEMATOLOGY 2016-03-22 12:16:007.5[facility] UaxsprjJERERVIGAO2186-87-50 12:16:0056.8[facility] JzlcfkjNSTMTRSGAE0670-28-91 12:16:0033.0[facility] WemzuayBQWHAKTUMV2886-50-46 12:16:00 Test Item Value Reference Range Interpretation Comments MCH (test code = MCH) 32.0 pg 27.0-31.0 [facility] KifdqgyALZBHDXWFJ7197-15-98 12:16:0033.7[facility]annHEMATOLOGY 2016-03-22 12:16:007.4[facility] NflfsxiVRJIZAETNU9462-07-19 12:16:0014.3[facility] IzywqzbUHEYVMTRRN9663-07-34 12:16:81932Pgcuduzv FfngoviLXPDPZUJUN0711-48-81 12:16:0095.0[facility] RxdjacuEGPQPHEZQV8259-92-83 12:16:0036.1[facility] JXJSCZRLFB7821-91-48 12:16:0012.2[facility] VquuzbsMYEVYNVTHQ8336-07-81 12:16:00 3.80[facility] VfgijnsEKEZFYYZWD1806-45-72 12:16:007.5[facility]annCHEM PANEL 2016-03-20 10:34:0025[facility]annCHE[facility] YRCCY8090-59-99 10:34:0015.1[facility]annCHEM OCARA1797-25-39 10:34:004.6[facility]annCHE[facility] JFFJK1809-80-01 10:34:000.7[facility]annCHE[facility] CVJRI6463-33-35 10:34:0086[facility]CHE[facility] EPRWB4485-27-50 10:34:000.4[facility]annCHE[facility] OVKOO2152-00-69 10:34:0093 [facility]CHE[facility] NDLLC2667-03-02 10:34:0074[facility]annCHE[facility] PANEL 2016-03-20 10:34:0032[facility]annCHE[facility] ICMLH9958-10-76 10:34:003.4[facility]annCHE[facility] GEIWB7341-91-93 10:34:008.0[facility]annCHE[facility] VSQFP1237-96-52 10:34:0098[facility]annCHE[facility] PPDXG3224-28-54 10:34:0027[facility]annCHE[facility] GYAPI3406-10-35 10:34:009.6[facility]annCHE[facility] RESHM1522-61-96 10:34:000.68 [facility]CHE[facility] TOFBC3736-28-57 10:34:69491Vqxgrors HermannCHEM PANEL 2016-03-20 10:34:004.1[facility]annCHEM SEWXT2953-64-94 10:34:45285Shkwqweg HermannCHEM SEDQV4317-00-56 10:34:0017[facility] WaaabqtCDPPGAGHXQ6995-70-67 10:34:006.1[facility] HartemrFNKIDNQPGK6853-64-97 10:34:002.1[facility] JMLPFYKKDS4936-48-30 10:34:0028.0[facility] XprztjtNYNIVGFWCK4597-29-07 10:34:00 0.2[facility] SiqynxeSQYEHBUIFY5610-35-83 10:34:000.1[facility]annHEMATOLOGY 2016-03-20 10:34:0063.1[facility] VbaqacqXTSVSLJCVZ6791-26-55 10:34:002.4[facility] SsdastpNZGQBUYJTH2216-73-39 10:34:000.5[facility] UljphsyTDFNEVVOBS4994-27-57 10:34:000.7[facility] JyijxnfRAMOAGNMCY7558-80-20 10:34:005.3[facility] ENJDETFVWN5525-83-24 10:34:14788Embklajx GaeomepTWVJLXTRUI2493-70-57 10:34:008.4 [facility] SnrqufvXMZBHWURQE7193-38-31 10:34:0094.9[facility] HermannHEMATOLOGY 2016-03-20 10:34:0037.1[facility] VgcpcgpOGADMJCRHB6654-98-33 10:34:0012.6[facility] IryvgebAWJTWVWTZI6750-04-68 10:34:008.5[facility] XlowrvxEASLIMOOCF3148-98-89 10:34:003.90[facility] OxesfkzSTHNSBHTFR8312-34-35 10:34:0014.4[facility] KQINGNUJOA1655-19-09 10:34:00 Test Item Value Reference Range Interpretation Comments MCH (test code = MCH) 32.2 pg 27.0-31.0 [facility] JtsypaoZKRCWPGZCI5947-52-67 10:34:0033.9[facility] HermannCHEM PANEL 2016-03-18 10:48:0093[facility] HermannCHEM ZCYXJ2737-48-11 10:48:77967Ayjakajz HermannCHEM EIUEH5210-00-52 10:48:0018[facility] HermannCHEM OROPN4984-61-95 10:48:0078[facility] HermannCHEM AHUHT3298-60-63 10:48:0035[facility] HermannCHEM OQECS1232-57-51 10:48:0074[facility] HermannCHEM MUQMF9392-57-57 10:48:000.67 [facility]annCHEM UKNXC9707-58-87 10:48:0099[facility] HermannCHEM PANEL 2016-03-18 10:48:003.9[facility] HermannCHEM NSTKL7799-91-78 10:48:83595Prbnoojp HermannCHEM CTBMM8590-90-30 10:48:007.2[facility] HermannCHEM ZLWEJ7275-96-02 10:48:009.1[facility] HermannCHEM XHSIZ0336-84-32 10:48:0027[facility] HermannCHEM JJCCZ3731-35-32 10:48:003.1[facility]annCHEM UBMFA3680-40-98 10:48:000.3 [facility]annCHEM MXFDB4363-61-50 10:48:000.8[facility] HermannCHEM PANEL 2016-03-18 10:48:004.1[facility] HermannCHEM LCLJH3999-65-64 10:48:0027[facility] HermannCHEM LYFWS8135-81-53 10:48:0013.9[facility] YugupkcYUAEGWRVEU8524-52-14 10:48:26657Lolnrhxs RszfnndHKNFEYOOWF4221-25-94 10:48:00 Test Item Value Reference Range Interpretation Comments MCH (test code = MCH) 32.4 pg 27.0-31.0 [facility] QwqtpiqPQGCXMSVRS4780-74-13 10:48:008.1[facility] HermannHEMATOLOGY 2016-03-18 10:48:0033.9[facility] AffknrzYYZGGEYLRD8929-78-73 10:48:0014.3[facility] OixxyjhGZKASTMGUN0212-03-34 10:48:0011.8[facility] YlepbpjQHVQPRFGUH5412-10-95 10:48:008.3[facility] FedbcguNSAQWGPWOW3748-72-62 10:48:0034.6[facility] NRSVIUYYMG8584-51-21 10:48:0095.3[facility] ZctkfvdBFPRMCKUAQ0240-28-49 10:48:00 3.63[facility] XcpdvcxSFWISPAAMJ7711-06-17 10:48:000.2[facility] HermannHEMATOLOGY 2016-03-18 10:48:000.5[facility] TiprgsgCQXSFOMZKA5470-38-94 10:48:002.6[facility] QalajyvWYDCGLGAWZ4858-04-37 10:48:000.1[facility] VqhnfyqSHFCISEEDX8396-88-85 10:48:001.0[facility] WaovmxlJOSQMYMQKE5783-83-16 10:48:002.0[facility] XYSUXUKFBG0923-97-25 10:48:006.2[facility] RtlwqhwQTIATPRRBV4365-75-98 10:48:00 59.4[facility] DkwefucANXRRQYSKJ7587-80-31 10:48:0031.4[facility] HermannHEMATOLOGY 2016-03-18 10:48:004.9[facility] VtniomxLPLZNPWLSH0415-04-95 11:38:000.1[facility]annURINE AND QJFJM2698-29-04 06:37:00Negative (03/14/16 12:37 AM)[facility] BAELB4452-83-57 06:37:00Negative *NA*(03/14/16 12:37 AM)[facility] OGTQZ0932-62-55 06:37:00Negative (03/14/16 12:37 AM)[facility] EQVWE5626-25-26 06:37:004.0[facility] STOOL 2016-03-14 06:37:001[facility] BZMKX8922-73-17 06:37:00>182 [facility] NOLUW4785-64-66 06:37:00Large *ABN*(03/14/16 12:37 AM) [facility] JTSGD9153-71-04 06:37:00Yellow *NA*(03/14/16 12:37 AM) [facility] KWFLJ6987-39-31 06:37:00Slight *ABN*(03/14/16 12:37 AM) [facility] PLKKC5592-11-36 06:37:001.016[facility] KULQJ2640-66-70 06:37:005.5[facility] HermannCHEM TZKIE8980-35-60 10:47:004.1 [facility]annCHEM YKTHN4705-16-40 10:47:002.4[facility] HermannIMMUNOLOGY 2016-03-12 10:47:0027.4[facility] HermannCHEM LNDKM9773-27-65 10:54:004.0[facility] HermannCHEM VSTNW7302-54-28 10:54:002.4[facility] HtghzcgNRAWCPABNJZZ3563-14-39 10:54:0014.1[facility] FudfsogYTZFYMDGBKMR0830-38-27 10:54:0097[facility] NEXGDXFQEIJI3619-56-53 10:54:0020[facility] LrmyhouGVYDJVNSCPUW1015-16-66 10:54:00 0.59[facility] HpkexpfSBLWHBWUEHPO0852-93-80 10:54:13362Egivyorx [place] ZLXWFEWYOLIQ8945-45-65 10:54:004.1[facility] UwqmlydROXWKWTMRAUD6180-38-72 10:54:0023[facility] ZrhvmjpGXUMGEBZCXHC1866-99-62 10:54:90164Hzkunfxx [place] FJGLYMSIQTBE4202-74-04 10:54:008.6[facility] FpougwpUYUFGQKQOXOA1464-78-65 10:54:0095[facility] WodkcosRJAOMFTVJU4854-51-44 10:54:003.3[facility] KDLADDKKIZ2347-96-95 10:54:009.6[facility] MmolxqsOSFYUSFJCT7000-37-75 10:54:00 67.9[facility] LvnrfaxZIZNASICXI4828-97-23 10:54:0023.3[facility] HermannHEMATOLOGY 2016-03-11 10:54:006.4[facility] QlsvohwEUYNTBKLFM7642-36-23 10:54:001.4[facility] RdhhezaMNTLERIAEW7176-30-93 10:54:001.0[facility] EpnvackIOVPLYWMNX0306-90-75 10:54:000.2[facility] CtzkpylULPTKCCLOT7770-98-43 10:54:000.1[facility] WUDTSSABIL3521-94-81 10:54:000.9[facility] YvrimjaOXJAQRUROX6183-62-42 10:54:008.3 [facility] PrbabxsKFPCENKBZJ8315-82-33 10:54:00 Test Item Value Reference Range Interpretation Comments MCH (test code = MCH) 32.2 pg 27.0-31.0 [facility] WlcncohNBOLUCRNCZ8397-91-80 10:54:0094.2[facility] HermannHEMATOLOGY 2016-03-11 10:54:14758Zywiwwoe SeriyoiPMTWPWRTJX1682-62-01 10:54:0034.2[facility] BpqjeioFOXGBOEILP6267-01-03 10:54:0014.3[facility] OkeghzcPMIKMCROYN8790-69-86 10:54:0033.8[facility] VxshaqmXASQPQNRGI9979-91-60 10:54:0014.1[facility] PDMCJBRWZN8029-83-72 10:54:0011.5[facility] LtkxjcvBNMZPBHHMP4967-16-76 10:54:00 3.59[facility] HermannPARATHYROID HIMORSS8991-51-72 10:54:001.00[facility] PARATHYROID ENJFPAI7821-42-46 10:54:001.06[facility] HermannCHEM VOCVL6901-85-56 08:06:002.8[facility] HermannCHEM MPWIR8720-00-50 08:06:0098[facility] HermannCHEM CPSNN7503-00-11 08:06:009.[facility] HermannCHEM SSDEU7326-26-58 08:06:008.8 [facility]annCHEM HRBGE0577-98-53 08:06:000.58[facility] HermannCHEM PANEL 2016-03-10 08:06:003.6[facility] HermannCHEM CUYMJ8726-37-07 08:06:76807Jvhnnjwm HermannCHEM GESNU4777-57-71 08:06:0029[facility] HermannCHEM GDVGK2828-42-92 08:06:72553Ntopniza HermannCHEM UHHSA9252-69-16 08:06:0085[facility] HermannCHEM UKFOQ3489-41-76 08:06:0020[facility] HermannCHEM DWRHE1808-84-86 08:06:004.2 [facility] TbnojdaPMVADESHXA3423-57-26 08:06:0015.8[facility] HermannHEMATOLOGY 2016-03-10 08:06:003.55[facility] DxorhnqTFVGOBTNVY8714-59-61 08:06:0013.5[facility] DrnrynaVHXTQUUSVP0528-03-08 08:06:62674Yfpjrqtu LraiefvBHOUTZUTRT5018-29-09 08:06:008.7[facility] PowxjabERCFPQOPUB8589-21-56 08:06:0011.1[facility] VCSYVFYIYJ1807-12-76 08:06:0033.9[facility] CpdycpfSCTINVJUOS7759-35-41 08:06:00 95.6[facility] WmryutpLLGUVEEBNI2191-42-53 08:06:00 Test Item Value Reference Range Interpretation Comments MCH (test code = MCH) 31.3 pg 27.0-31.0 [facility] PjtnyjkCROEYRKVBF8725-63-91 08:06:0032.7[facility] HermannHEMATOLOGY 2016-03-10 08:06:000.2[facility] RpftuddXSLPYYRGRH5048-82-44 08:06:001.3[facility] ZzcauebNAGACGVBVF4575-14-70 08:06:000.2[facility] IejzssgRZXZNBWKJE9140-48-05 08:06:0010.3[facility] IpxwzqwHTPGHQKSDE9829-16-06 08:06:003.9[facility] TPZBUYTHZI7292-83-79 08:06:001.0[facility] MjfigtgMMDIXBGXSJ8255-56-26 08:06:001.1 [facility] VovomatXKMQLOTYHA9448-88-64 08:06:0064.9[facility] HermannHEMATOLOGY 2016-03-10 08:06:008.2[facility] DmvwzymNVXPQXGRXS6274-28-56 08:06:0024.8[facility] HermannPARATHYROID UGYHSNX2918-66-94 08:06:001.11[facility] HermannPARATHYROID BYVYUDZ6455-27-91 08:06:001.14[facility] BzudkxyNZKZAKAEVZJN9577-23-86 21:07:59031 [facility] HermannCHEM FMFLL7075-37-26 08:56:002.3[facility] HermannCHEM PANEL 2016-03-09 08:56:003.4[facility] VompwbdPSEQGRFGXDIH3247-69-75 08:56:0014.7 [facility] SesgrnaTUCIKEHRNCVP0387-52-84 08:56:0099[facility] HermannELECTROLYTES 2016-03-09 08:56:0019[facility] KrxextzHEXOVKTTNAFE4870-25-41 08:56:000.56[facility] UvkcqhgAJXJVHUYGNYU3797-44-81 08:56:93253Mohvttfl ZygqlqtBSUSXCOZPLVO1532-34-75 08:56:003.7[facility] GlfbilkONLYPYXYEVLS4830-36-04 08:56:87258Eszjnzuz [place] QGRLGLPBTWFR2116-49-78 08:56:0023[facility] DbaalmmGUMNMCWZLYVC9647-07-48 08:56:00 8.8[facility] GgbarfaPXDZRMYEYO6339-07-70 08:56:0011.6[facility] HermannHEMATOLOGY 2016-03-09 08:56:001.1[facility] NoowzvgLBIYTEWLQQ2410-96-47 08:56:001.0[facility] QdyxfkqLEIJFMWQFG9859-81-33 08:56:003.4[facility] GfpgzspXHPEJXSQMU8376-27-55 08:56:0070.0[facility] LtwrmqcZMVQHTRTDG1509-26-90 08:56:007.2[facility] QVAZLKQERH0922-83-14 08:56:0020.7[facility] MqkuwgaSYIECXEOLW3653-03-80 08:56:00 1.2[facility] KxxwbkjYINIEVPEJW7805-64-20 08:56:000.2[facility] HermannHEMATOLOGY 2016-03-09 08:56:000.2[facility] AhnduurQMMVHJOKRG0749-12-51 08:56:35134Kjcnpvtj FwraoztVHVZCEISYS7331-58-00 08:56:0013.7[facility] ZsxkoyzYGQGEMSHGG8411-37-06 08:56:008.1[facility] VyiyaioXRSFGTHSRK2795-54-70 08:56:00 Test Item Value Reference Range Interpretation Comments MCH (test code = MCH) 31.9 pg 27.0-31.0 [facility] XqonfzjJDKGZFQKUU2474-29-17 08:56:0033.3[facility] HermannHEMATOLOGY 2016-03-09 08:56:0094.1[facility] HsoeakaUVGKVLUVFN3297-02-84 08:56:0033.8[facility] JztinlkNIMXJVJJXC1389-37-20 08:56:0016.6[facility] FxangsyVIIMWHSPPL1332-41-92 08:56:0011.3[facility] JjfznpdWKXOJWDQOI6977-59-56 08:56:003.54[facility] PARATHYROID VKCMHHV9700-77-59 08:56:001.06[facility] HermannPARATHYROID PROFILE 2016-03-09 08:56:001.02[facility] HermannBLOOD BANK JQDXBNP5754-43-57 06:29:00 Negative (03/08/16 12:29 AM)[facility] RmidwcoXCWQUSWSRF0840-57-66 06:20:00 Test Item Value Reference Range Interpretation Comments PTT (test code = PTT) 27.1 s 22.9-35.8 [facility] RztfywvADTCUAECWA5753-38-67 06:20:00 Test Item Value Reference Range Interpretation Comments PT (test code = PT) 14.3 s 12.0-14.7 [facility] BesxbbjVOTCSKEOPN0497-25-91 06:20:001.09[facility] HermannBODY FLUIDS 2016-03-07 22:52:0060[facility] HermannBODY FLYPWG3774-36-78 22:52:003.2[facility] HermannBODY VHTZVD4475-89-10 22:52:13953Ykzipxlv HermannBODY INSBAS8085-30-93 22:52:0018[facility] HermannBODY RPGHTL2384-32-09 22:52:0055[facility] HermannBODY TPXNJT6775-40-79 22:52:0027[facility] HermannBODY CPBMHC0998-88-73 22:52:5174255 [facility]annBODY HZCJBQ7299-49-33 22:52:0069[facility] HermannBODY FLUIDS 2016-03-07 22:52:00Red *ABN*(03/07/16 4:52 PM)[facility] HermannBODY FLUIDS 2016-03-07 22:52:00Moderate *ABN*(03/07/16 4:52 PM)[facility] HermannBODY FLUIDS 2016-03-07 22:52:00 Test Item Value Reference Range Interpretation Comments Tube Num CSF (test code = Tube Num CSF) 1 1 [facility]annBODY WJEOXU1046-29-90 22:52:00Hemolyzed *ABN*(03/07/16 4:52 PM) [facility] GNKGP6644-82-85 22:52:00Negative (03/07/16 4:52 PM) [facility] UTBOF8810-93-94 22:52:00Negative (03/07/16 4:52 PM) [facility] TKTNM3006-12-70 22:52:00Moderate *ABN*(03/07/16 4:52 PM)[facility] AND RTOJQ7958-24-74 22:52:000.2[facility]UR[facility] AND DHWGQ1891-65-20 22:52:00Negative *NA*(03/07/16 4:52 PM)[facility] LFXRL6834-77-67 22:52:00Negative (03/07/16 4:52 PM)[facility] UOEHW0416-16-88 22:52:00Negative *NA*(03/07/16 4:52 PM)[facility] GFZFA0404-98-92 22:52:00Negative (03/07/16 4:52 PM)[facility] WVWHF5077-58-74 22:52:00Yellow *NA*(03/07/16 4:52 PM)[facility] YIDJQ1137-39-97 22:52:00 Test Item Value Reference Range Interpretation Comments UA pH (test code = UA pH) 6.5 1 5.0-8.0 [facility] NYZGJ3978-50-32 22:52:00Slight Cloudy (03/07/16 4:52 PM)[facility] OIPNY3719-49-49 22:52:00 Test Item Value Reference Range Interpretation Comments UA Spec Grav (test code = UA Spec 1.010 1 Grav) [facility] JAONO4690-79-27 22:52:0012[facility] AND GXPBP1207-26-92 22:52:007[facility] HermannBODY OXWXWI9288-68-02 22:02:00884 [facility]annB[facility] CUMKKV6961-33-92 22:02:0052[facility] HermannBODY FLUIDS 2016-03-05 22:02:0069[facility] HermannBODY DDKMNQ1018-81-44 22:02:0021[facility] HermannBODY FYHHUO6267-46-69 22:02:0010[facility]annBODY KCDUUQ1018-50-01 22:02:00xxxxxxx (03/05/16 4:02 PM)[facility]annBODY JIFQNK9899-94-46 22:02:00 Red *ABN*(03/05/16 4:02 PM)[facility]annBODY RPNULM1893-73-43 22:02:00Marked *ABN*(03/05/16 4:02 PM)[facility] HermannBODY QSOKJZ5062-68-90 22:02:00Hemolyzed *ABN*(03/05/16 4:02 PM)[facility]annBODY XPLVQY4696-54-12 22:02:39715Rqpdfjuk HermannBODY NVXMCG4708-60-86 22:02:0237963Gihubymb HermannURINE AND STOOL 2016-03-05 15:24:007[facility] AND MPVLU6295-58-96 15:24:00Not Indicated *NA*(03/05/16 9:24 AM)[facility] URTVO7116-01-33 15:24:00Negative (03/05/16 9:24 AM)[facility] DVGRE4302-43-04 15:24:001[facility] AND YBNYY1944-32-92 15:24:00Negative (03/05/16 9:24 AM)[facility] IKITF5994-94-84 15:24:00Clear (03/05/16 9:24 AM)[facility] CSKCY7677-69-52 15:24:001.011[facility]UR[facility] AND QQSVY6638-52-48 15:24:00Negative *NA*(03/05/16 9:24 AM)[facility] ELGVB7544-53-41 15:24:00Yellow *NA*(03/05/16 9:24 AM)[facility] AND UXLEU5574-42-21 15:24:00Negative (03/05/16 9:24 AM)[facility] KITJZ5832-92-14 15:24:007.0[facility] HermannBLOOD BANK NYABDBK2750-18-95 06:31:00 Negative (03/04/16 12:31 AM)[facility] DgbxkobBFECTGZKZR2028-67-65 06:31:00 Test Item Value Reference Range Interpretation Comments PTT (test code = PTT) 28.1 s 22.9-35.8 [facility] IbsrsnsRZQQTJDAUN8716-57-37 06:31:00 Test Item Value Reference Range Interpretation Comments PT (test code = PT) 14.5 s 12.0-14.7 [facility] CaizykzGLYMIKILYL3502-83-95 06:31:001.11[facility] HermannBODY FLUIDS 2016-03-01 21:14:0087[facility]annBODY OQTLQU3179-21-32 21:14:002.7[facility]annBODY WNNHKK8385-26-39 21:14:0078[facility]annBODY MBLSGR7135-07-90 21:14:0013[facility]annBODY MYCLWG2554-69-29 21:14:0013[facility]annBODY BVPUWZ0279-81-00 21:14:0074[facility] HermannBODY GFGEEN0127-45-19 21:14:09975 [facility]annB[facility] PLPWKI4433-35-92 21:14:8538747Vweaiyxh HermannBODY FLUIDS 2016-03-01 21:14:00Marked *ABN*(03/01/16 3:14 PM)[facility] HermannBODY FLUIDS 2016-03-01 21:14:00Hemolyzed *ABN*(03/01/16 3:14 PM)[facility]annBODY FLUIDS 2016-03-01 21:14:00Red *ABN*(03/01/16 3:14 PM)[facility] HermannBODY FLUIDS 2016-03-01 21:14:00xxxxxxx (03/01/16 3:14 PM)[facility] STOOL 2016-02-29 17:57:00Negative (02/29/16 11:57 AM)[facility] STOOL 2016-02-29 17:57:002[facility]UR[facility] AND BOPMN7376-71-27 17:57:002[facility]UR[facility] AND OYHLI8375-92-94 17:57:00Negative (02/29/16 11:57 AM)[facility] XAAUD7772-58-88 17:57:00Negative (02/29/16 11:57 AM)[facility] UPDIV0912-69-00 17:57:001[facility]UR[facility] STOOL 2016-02-29 17:57:001.016[facility]UR[facility] OHHAQ6140-40-16 17:57:005.5 [facility] HSHMG4620-61-97 17:57:00Slight *ABN*(02/29/16 11:57 AM) [facility] JKRPX9598-49-39 17:57:00Negative *NA*(02/29/16 11:57 AM)[facility] TUPNG1559-55-59 17:57:00Yellow *NA*(02/29/16 11:57 AM)[facility] HermannCARDIAC ALJVRFL1692-49-84 06:37:00<0.02[facility] BACTERIAL - EKIYMIDR9490-16-37 14:34:00Negative (02/27/16 8:34 AM)[facility] HermannDRUG VDJUVL2615-60-15 06:41:00Negative *NA*(02/27/16 12:41 AM)[facility] HermannDRUG ZECDOF2042-90-75 06:41:00Negative *NA*(02/27/16 12:41 AM)[facility] HermannDRUG MDXBXU3837-72-10 06:41:00Negative *NA*(02/27/16 12:41 AM)[facility] HermannDRUG DOOVLB7913-21-50 06:41:00Negative *NA*(02/27/16 12:41 AM)[facility] HermannDRUG KEBYPY8720-63-62 06:41:00Negative *NA*(02/27/16 12:41 AM)[facility] HermannDRUG SDFSHX7689-27-36 06:41:00Negative *NA*(02/27/16 12:41 AM)[facility] HermannDRUG NZYDQX2679-79-69 06:41:00Negative *NA*(02/27/16 12:41 AM)[facility] HermannDRUG PKRMXV6190-02-85 06:41:00Negative *NA*(02/27/16 12:41 AM)[facility] HermannDRUG FQLTXF1588-45-33 06:41:00Negative *NA*(02/27/16 12:41 AM)[facility] HermannDRUG MGSCIL5210-32-10 06:41:00See Note *NA*(02/27/16 12:41 AM)[facility] XurxsgoBYKPENQUCY7099-61-16 06:40:00 Test Item Value Reference Range Interpretation Comments Angle (test code = Angle) 74.3 degrees 53.0-72.0 [facility] SpfvkdrSAUPJNDBPD0161-21-98 06:40:00 Test Item Value Reference Range Interpretation Comments Max Amp (test code = Max Amp) 69.2 mm 50.0-70.0 [facility] KsodzqpKDPOQOSZOY7480-10-24 06:40:003.5[facility] HermannHEMATOLOGY 2016-02-27 06:40:0011.3[facility] AhsibuiXHGQPOQQME5284-33-88 06:40:000.8[facility] PpkfebvNOWAYGQLSQ9460-80-32 06:40:00See Note (02/27/16 12:40 AM)[facility] [place] WYJNQMUKEW7503-85-78 06:40:00 Test Item Value Reference Range Interpretation Comments R-time (test code = R-time) 3.8 min 5.0-10.0 [facility] JftxkbyWZRBFLIBTQ6956-34-87 06:40:00 Test Item Value Reference Range Interpretation Comments K-time (test code = K-time) 0.9 min 1.0-3.0 [facility] KaacqsaLNCTVIJYBX2497-80-92 06:40:001.23[facility] HermannHEMATOLOGY 2016-02-27 06:40:00 Test Item Value Reference Range Interpretation Comments PT (test code = PT) 15.8 s 12.0-14.7 [facility] DhdaltlLXCVJHIHQC4971-97-29 06:40:00 Test Item Value Reference Range Interpretation Comments PTT (test code = PTT) 25.3 s 22.9-35.8 [facility] LTWUOVICL9710-64-81 06:40[facility]008.9[facility] XINVKTKKCA0125-55-34 14:51:00 Test Item Value Reference Range Interpretation Comments POC Activated Clotting Time (test code 154 s = POC Activated Clotting Time) [facility] BANK RAQOOIA0530-81-35 09:00:00Negative (02/26/16 3:00 AM) [facility] RVVWI1493-40-51 08:56:510.4[facility] HermannCHEM PANEL 2016-02-26 08:56:5181[facility] HermannCHEM DEMSG5006-41-51 08:56:5145[facility] HermannCHEM WVIJC4739-13-27 08:56:517.8[facility] HermannCHEM IPJWX6710-45-86 08:56:513.7[facility] HermannCHEM GRTWA0998-38-89 08:56:5152[facility] HermannCHEM HYSUY2080-61-72 08:56:510.9[facility] HermannCHEM LHTXY5352-77-37 08:56:514.1 [facility] HermannCHEM ZXYOG7725-01-69 08:56:5127[facility] HermannHEMATOLOGY 2016-02-26 08:56:5110.5[facility] KltivnjFEYTRNQKKW7850-88-46 08:56:51 Test Item Value Reference Range Interpretation Comments Max Amplitude Rapid (test code = Max 68 mm 52-71 Amplitude Rapid) [facility] DallasCzvldigRPTAEHETII6962-91-64 08:56:51 Test Item Value Reference Range Interpretation Comments K-time Rapid (test code = K-time 1.1 min 0.6-2.3 Rapid) [facility] DallasWjazbvnRDTKRGYWYB2740-78-65 08:56:51 Test Item Value Reference Range Interpretation Comments Angle Rapid (test code = Angle 76 degrees 64-80 Rapid) [facility]QQZWTEAX7257-97-13 08:56:51 Test Item Value Reference Range Interpretation Comments Split Point Rapid (test code = Split 0.6 min Point Rapid) [facility]PwuydeyZPCVJKFTOM5112-95-51 08:56:51 Test Item Value Reference Range Interpretation Comments R-time Rapid (test code = R-time 0.8 min 0.4-0.7 Rapid) [facility] CenterVinrrrxFTNTPQFATX8125-71-83 08:56:51 Test Item Value Reference Range Interpretation Comments ACT (TEG) Rapid (test code = ACT (TEG) 121 s 86-118 Rapid) [facility] CenterXhoschbVBFWIWUAKL2688-44-28 08:56:510.6[facility]
== END 2019-11-15 18:58 | disposition home or self-care (01) ==
LOC: ER 14:28
DX: R20.2 Paresthesia of skin (principal); I10 Essential (primary) hypertension; Z86.73 Personal history of transient ischemic attack (TIA), and cerebral infarction without residual deficits
CPT/HCPCS: 96365; 93005; 85025; 80048; 36415; 83735; 85610; 85730; 70450; 70496; 70498; 99284; Q9967; J7040

== ENCOUNTER 2020-08-22 14:03 | Emergency (ER) | payer OTHER ==
--- OUTSIDE RECORDS SUMMARY | 2020-08-22 14:11 | XMS REPORT | Continuity of Care Document ---
:1950 Author Organization [facility] t Address [address] [place] [address] Care Team Providers Name Role Phone Srini [...] l TIA 00:00: [place] 00 Active 08/24/2017 [facility] POSSIBLE Diagnosis Active 2017-08-24 M emoria STROKE 08-24 14:50:00 l POSSIBLE 00:00: Jimi n STROKE 00 Active 08/24/2017 [facility] ESTEFANIA Diagnosis Active 2017-11-27 Memoria BILLING 08-24 09:54:00 l 00:00: [place] ESTEFANIA 00 BILLING Active 08/24/2017 [facility] LEFT Diagnosis Active 2016-06-19 Mem oria POSTERIOR - 11:51:00 l COMMUNICAT LEFT 00:00: Jimi flower ING ARTERY POSTERIOR 00 ANEU COMMUNICAT ING ARTERY ANEU Active 06/07/2016 [facility] LFLT Diagnosis Active 2016-08-17 Mem oria TRANSFER 1-16 06:30:00 l #261-A LFLT 00:00: [place] TRANSFER 00 #[id number] Active 02/26/2016 [facility] SAH Diagnosis Active 2016-08-17 Mem oria 1-15 06:29:00 l SAH 23:30: [place] 00 Active 02/25/2016 [facility], Rehabilita tion Weakness Problem 2018-03-15 Mem oria 14:07:55 l Weakness Jimi n 03/15/2018 [facility] Hyperlipid Problem 2018-03-15 M emoria emia, 14:07:55 l unspecifie Jimi n d Hyperlipid emia, unspecifie d 03/15/2018 [facility] Type 2 Problem 2018-03-15 Memor ia diabetes 14:07:55 l mellitus Type 2 Jimi n with diabetes hyperglyce mellitus bart with hyperglyce bart 03/15/2018 [facility] Hypertensi Problem 2018-03-15 M emoria ve chronic 14:07:55 l kidney [place] disease Hypertensi with stage ve chronic 1 through kidney stage 4 disease chronic with stage kidney 1 through disease, stage 4 or chronic unspecifie kidney d chronic disease, kidney or disease unspecifie d chronic kidney disease 03/15/2018 [facility] Type 2 Problem 2018-03-15 Memor ia diabetes 14:07:55 l mellitus Type 2 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 chronic kidney disease 03/15/2018 [facility] Chronic Problem 2018-03-15 Derick rodney kidney 14:07:55 l disease, Chronic Jazmin nn stage 2 kidney (mild) disease, stage 2 (mild) 03/15/2018 [facility] Dependence Problem 2018-03-15 M emoria on renal 14:07:55 l dialysis [place] Dependence on renal dialysis 03/15/2018 [facility] MCFP Problem 2018-03-15 Me moria (current) 14:07:55 l use of Long [place] oral term hypoglycem (current) ic drugs use of oral hypoglycem ic drugs 03/15/2018 [facility] Diabetes Problem Resolve 2018-03-15 Me moria mellitus d 14:07:55 l (disorder) Diabetes He rmann mellitus (disorder) Resolved Problem 03/15/2018 [facility] Cerebral Problem Active 2018-03-15 Mem oria edema 14:07:55 l (disorder) Cerebral He rmann edema (disorder) Active Problem 03/15/2018 [facility] 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 14:07:55 l (disorder) Flaccid Her layton hemiplegia (disorder) Active Problem 03/15/2018 [facility] Hemorrhage Problem Active 2018-03-15 M emoria into 14:07:55 l subarachno Jimi n id space Hemorrhage of into neuraxis subarachno (disorder) id space of neuraxis (disorder) Active Problem 03/15/2018 [facility] Hyperosmol Problem Active 2018-03-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:07:55 l hypernatre Jimi n bart Hyperosmol (disorder) ality with hypernatre bart (disorder) Active Problem 03/15/2018 [facility] Hypertensi Problem Active 2018-03-15 M emoria ve 14:07:55 l disorder, [place] systemic Hypertensi arterial ve (disorder) disorder, systemic arterial (disorder) Active Problem 03/15/2018 [facility] Obstructiv Problem Active 2018-03-15 M emoria e 14:07:55 l hydrocepha Jimi n adam Obstructiv (disorder) e hydrocepha adam (disorder) Active Problem 03/15/2018 [facility] Respirator Problem Active 2018-03-15 M emoria y failure 14:07:55 l (disorder) Jimi n Respirator y failure (disorder) Active Problem 03/15/2018 [facility] Ventricula Problem Active 2018-03-15 M emoria r 14:07:55 l hemorrhage Jimi n (disorder) Ventricula r hemorrhage (disorder) Active Problem 03/15/2018 [facility] TRANSIENT Diagnosis Active 2017-12-09 Memoria CEREBRAL 11:24:00 l ISCHEMIC [place] ATTACK, TRANSIENT UNSP CEREBRAL ISCHEMIC ATTACK, UNSP Active [facility] NONTRAUMAT Diagnosis Active 2016-08-17 Memoria IC 06:29:00 l SUBARACHNO Jimi n ID NONTRAUMAT HEMORRHAGE IC , UN SUBARACHNO ID HEMORRHAGE , UN Active [facility] NONTRAUMAT Diagnosis Active 2016-08-17 Memoria IC 06:29:00 l INTRACEREB Jimi n RAL NONTRAUMAT HEMORRHAGE IC , U INTRACEREB RAL HEMORRHAGE , U Active Rehabilita tion CEREBRAL Diagnosis Active 2016-06-19 M emoria ANEURYSM, 11:51:00 l NONRUPTURE CEREBRAL He rmann D ANEURYSM, NONRUPTURE D Active [facility] History of Past Illness Condition Condition Condition Status Onset Resolution Last Treating Co mments Source Name Details Category Date Date Treatment Clinician Date Other Problem 2018-03-15 2018-03-15 M emoria specified 09-05 14:07:55 14:07:55 l disorders Other 02:58: Jimi flower of brain specified 50 disorders of brain 8 03/15/2018 [facility] Allergies, Adverse Reactions, Alerts This patient has no known allergies or adverse reactions. Social History Social Habit Start Date Stop Date Quantity Comments Source Social History 2016-03-12 2016-03-12 [facility] Ladi muñoz 04:05:16 04:05:16 Medications Ordered Filled Start Stop Current Ordering Indication Dosage Frequency Signature Comments Components Source Medication Medication Date Date Medication? Clinician (SIG) Name Name Metformin Yes 1,250 mg, Mem oria hydrochlori -17 PO, l de 1000 MG 21:02: BID-Meals, Ladi muñoz Oral Tablet 17 # 180 tab, 1 Refill(s), Pharmacy: [id number] Plavix 2018-0 No 75 mg, Memoria 08-26 Route: PO, l 14:00: Drug form: [place] 00 TAB, Daily, Dosing Weight 77.273, kg, [...] 00 # 270 tab, 1 Refill(s), Pharmacy: [id number] clopidogrel Yes 75 mg = 1 M emoria 75 mg oral 7-16 tab, PO, l tablet 21:58: Daily, # Kain 00 90 tab, 1 Refill(s), Pharmacy: [id number] lisinopril Yes 20 mg = 1 Me moria 20 mg oral 7-16 tab, PO, l tablet 18:11: Daily, 0 00 Refill(s) Metformin No 1,000 mg = Me moria hydrochlori 7-16 1 tab, PO, l de 1000 MG 18:11: BID-Meals, H ermann Oral Tablet 00 # 30 tab, 0 Refill(s) lovastatin Yes 10 mg = 1 Me moria 10 mg oral 7-16 tab, PO, l tablet 18:11: Daily, 0 [place] 00 Refill(s) glimepiride Yes 4 mg = 1 Me moria 4 MG Oral 7-16 tab, PO, l Tablet 18:11: Daily, 0 [Amaryl] 00 Refill(s) Insulin No Notes: Memoria Lispro -16 (Same as: l 17:11: Humalog ) Roll [...] Memoria 7-16 (Same As: l 17:00: Plavix) [place] Tylenol No Notes: Do Memor ia 7-16 not exceed l 05:45: 4 gm/day. Kain (Same as: Tylenol) Saline No Notes: Memoria Flush 0.9% 7-16 (Same as: l 02:00: BD [place] Posiflush) atorvastati No Notes: Derick rodney n 7-16 Same as l 02:00: Lipitor heparin No Notes: Memoria 7-15 porcine l 21:00: heparin Aspirin 81 No Notes: Do Me moria MG Enteric 7-15 not crush l Coated 20:00: or chew. Kain Tablet (Same As: Ecotrin) Saline No Notes: Memoria Flush 0.9% 7-15 (Same as: l 19:44: BD [place] Posiflush) iodixanol No 100 mL, Memor ia 7-15 Route: l 19:16: IVP, Drug Form: SOLN, kg, ONCALL, STAT, Start date: 08/24/17 14:16:00 CDT, Duration: 1 doses or times, Dose = 2.2ml/kg, Max dose = 100ml -- "To be infused by Radiology Staff ONLY" Saline No Notes: Memoria Flush 0.9% 7-15 (Same as: l 19:05: BD [place] Posiflush) Ondansetron Yes 4 mg = 1 [...] 2 tab, PO, l tablet 12:49: Bedtime, K[place] 00 PRN Constipati on, X 10 day, # 20 tab, 0 Refill(s) Docusate Yes 100 mg = 1 Mem oria Sodium 100 5-11 cap, PO, l MG Oral 12:49: BID, # 28 Jazmin nn Capsule 00 cap, 0 [Colace] Refill(s) Saline No Notes: Memoria Flush 0.9% 5-11 Same as: l 02:00: BD [place] Posiflush Sterile sennosides, No Notes: Derick rodney ALF 5-11 (Same as: l 02:00: Senokot) [place] Docusate No Notes: Memoria 5-11 (Same as: l 02:00: Colace) [place] (Do Not Crush) Tylenol No Notes: Do Memor ia 5-11 not exceed l 00:10: 4 gm/day. [place] (Same as: Tylenol) Insulin No 60 Memoria regular 5-10 units) l 21:10: WASTE: F/P [place] - Black; E - Municipal Trash Bin Stable for 28 days at room temperatur e Expires in days from ____Date Glucagon No 1 mg, Memoria 5-10 Route: IM, l 21:10: Drug form: [place] 00 PDR/INJ, PRN, Dosing Weight 72.727, kg, PRN Blood Glucose Results, Start date: 06/19/16 16:10:00 CDT, Duration: 30 day, Stop date: 07/19/16 16:09:00 CDT Dextrose 2017 No 25 gm, 50 Derick rodney 50% Syringe 5-10 mL, Route: l 21:10: IVP, Drug [place] 00 Form: INJ, Dosing Weight 72.727, kg, PRN, PRN Blood Glucose Results, Start date: 06/19/16 16:10:00 CDT, Duration: 30 day, Stop date: 07/19/16 16:09:00 CDT potassium No Notes: Memori a phosphate-s 5-10 (Same as: l odium 18:36: Phos-NaK) [place] phosphate 00 Each 1.5 250 mg-280 gm pkt has mg-160 mg 250mg oral powder phosphorou for s. Mix reconstitut w/2.5oz ion water and stir. potassium No Notes: Memori a phosphate + 5-10 (Same as: l sodium 18:36: K [place] chloride 00 Phosphate. 0.9% INJ ) 1 mMol 250 mL phoshate has 1.47 mEq potassium Infuse over 4 hours Magnesium No Notes: Memori a Sulfate 5-10 WASTE: F/P l 18:36: - Sink; E [place] 00 - [facility] sodium No 45 mmol, Memoria phosphate + 5-10 15 mL, l sodium 18:36: Route: [place] chloride 00 IVPB, PRN, 0.9% INJ Dosing 250 mL Weight 72.727, kg, PRN Abnormal Lab Result, Start date: 06/19/16 13:36:00 CDT, Duration: 30 day, Stop date: 07/19/16 13:35:00 CDT, FOR ICU USE ONLY Magnesium No Notes: Memori a Oxide 5-10 (Same as: l 18:36: Mag-Ox [place] 00 400) Magnesium oxide 142hf=554v g elemental magnesium Dose=____m g magnesium oxide (___mg elemental magnesium) potassium No Notes: Memori a chloride 5-10 (Same as: l 18:36: Potassium [place] 00 Chloride) Calcium No Notes: Memoria Carbonate 5-10 (Same As: l 500 MG 18:36: Tums) [place] Chewable 00 Calcium Tablet Carbonate 500 mg = 200 mg elemental calcium Dose = mg calcium carbonate ( mg elemental calcium) Calcium No Notes: Memoria Gluconate 5-10 WASTE: F/P l 18:36: - Sink; E - Municipal Trash Bin Sodium No 1,000 mL, Memori a Chloride 5-10 Rate: 75 l 0.154 18:36: ml/hr, [place] MEQ/ML 00 Infuse Injectable over: 13.3 Solution [...] Derick rodney 5-10 0 l 11:21: Refill(s) [place] 00 Aspirin Yes 325 mg, Memoria 5-10 PO, 0 l 11:14: Refill(s) ceFAZolin No Notes: Memori a 5-10 Same as: l 06:00: Ancef Acetaminoph Yes 650 mg, Mem oria en 2-16 PO, Q6H, l 18:35: PRN Pain Score 1-5, 0 Refill(s) Trazodone Yes 50 [...] needed for itching, Start date: 03/24/16 12:08:00 METAL CUTTER, Duration: 30 day, Stop date: 04/23/16 12:07:00 CDT Eucerin No Notes: Memoria Plus 2-12 (Same as: l topical 18:08: Cetaphil Jimi n lotion 00 Lotion) Nimodipine No Notes: Memor ia 2-11 (Same as l 03:00: Nimodipine [place] oral suspension 30mg/ml) Instill dose into NG tube and then flush with 30ml of NS emollients, No Notes: Derick rodney topical 2-10 (Same as: l lotion 02:00: Cetaphil Lotion) SMOG Enema No Notes: Non M emoria 03-21 formulary l 22:50: item saline for irrigation (1L bottle) 100 mL, mineral oil 100 mL, glycerine 100 mL. Dispense (300 ml) in 1L NS bottle Bisacodyl No Notes: Memori a 2- (Same As: l 22:49: Dulcolax, Bisco-Lax) magnesium No Notes: Memori a citrate 03-21 (Same as: l 58.2 MG/ML 22:49: Citrate of H erm Magnesia) Solution Concentrat ion: 1.745 gm / 30 mL mineral oil No 30 ml, Derick rodney 03-21 Route: PO, l 16:24: Drug Form: LIQ, Dosing Weight 75, kg, ONCE, Start date: 03/21/16 10:24:00 METAL CUTTER, Stop date: 03/21/16 10:24:00 METAL CUTTER Milk of No Notes: Memoria Magnesia 03-21 (Same as: l 16:24: Milk of Magnesia, MOM) Metformin No Notes: Memori a 2- (Same as: l 02:00: Glucophage ) Take [...] Roll in l Human 18:27: palms of [place] 00 hands gently; Do not shake vigorously . (Same as: NovoLOG) "single patient use only" WASTE: F/P - Black; E - Municipal Trash Bin Stable for 28 days at room temperatur e. Expires in days from ____Date Dextrose No 12.5 gm, Memor ia 50% Syringe 03-18 25 mL, l 18:27: Route: [place] 00 IVP, Drug Form: INJ, Dosing Weight 75, kg, PRN, PRN Blood Glucose Results, Start date: 03/18/16 12:27:00 METAL CUTTER, Duration: 30 day, Stop date: 04/17/16 12:26:00 METAL CUTTER Glucagon No 1 mg, Memoria 2- Route: IM, l 18:27: Drug form: [place] 00 PDR/INJ, PRN, Dosing Weight 75, kg, PRN Blood Glucose Results, Start date: 03/18/16 12:27:00 METAL CUTTER, Duration: 30 day, Stop date: 04/17/16 12:26:00 METAL CUTTER Insulin, No 4 unit, Memori a Aspart, - Route: l Human 04:18: SUB-Q, [place] 00 ONCE, Dosing Weight 75, kg, Start date: 03/15/16 22:18:00 METAL CUTTER, Stop date: 03/15/16 22:18:00 METAL CUTTER Insulin, No Notes: Memoria Aspart, 2-03 Roll in l Human 04:46: palms of [place] 00 hands gently; Do not shake vigorously . (Same as: NovoLOG) "single patient use only" WASTE: F/P - Black; E - Municipal Trash Bin Stable for 28 days at room temperatur e. Expires in days from ____Date Cipro No Notes: May Memori a 2-02 interfere l 17:00: w/enteral K[place] 00 feedings - Take 1 hr before or 2 hrs after antacids, dairy pdt & minerals. On empty stomach. Melatonin 3 No Notes: Derick rodney MG Extended 03-14 (Same as: l Release 03:00: Melatonin) Herm suhas Tablet 00 NovoLOG No Notes: Memoria FlexPen 03-13 Roll in l 18:00: palms of Kain hands gently; Do not shake vigorously . (Same as: NovoLOG) "single patient use only" WASTE: F/P - Black; E - Municipal Trash Bin Stable for 28 days at room temperatur e. Expires in days from ____Date Insulin No 3 unit, Memoria regular 03-13 Route: l 17:30: SUB-Q, [place] TID-Before Meals, Dosing Weight 75, kg, Start date: 03/13/16 11:30:00 METAL CUTTER, Duration: 30 day, Stop date: 04/12/16 6:30:00 METAL CUTTER Insulin No Notes: Memoria Glargine 03-13 Same as: l 17:30: Lantus) Do K[place] 00 not hold insulin without contacting prescriber WASTE: F/P - Black; E - Municipal Trash Bin Glucagon No 1 mg, Memoria 03-13 Route: IM, l 16:07: PRN, [place] 00 Dosing Weight 75, kg, PRN Blood Glucose Results, Start date: 03/13/16 10:07:00 METAL CUTTER, Duration: 30 day, Stop date: 04/12/16 10:06:00 METAL CUTTER Dextrose No 25 mL, Memoria 50% Syringe 03-13 Route: l 16:07: IVP, [place] 00 Dosing Weight 75, kg, PRN, PRN Blood Glucose Results, Start date: 03/13/16 10:07:00 METAL CUTTER, Duration: 30 day, Stop date: 04/12/16 10:06:00 METAL CUTTER Melatonin 3 No Notes: Derick rodney MG Extended 03-13 (Same as: l Release 03:00: Melatonin) Herm suhas Tablet Glucagon No 1 mg, Memoria 03-12 Route: IM, l 21:24: Drug form: [place] PDR/INJ, PRN, Dosing Weight 75, kg, PRN Blood Glucose Results, Start date: 03/12/16 15:24:00 METAL CUTTER, Duration: 30 day, Stop date: 04/11/16 15:23:00 METAL CUTTER Dextrose No 25 gm, 50 Derick rodney 50% Syringe 1-31 mL, Route: l 21:24: IVP, Drug [place] 00 Form: INJ, Dosing Weight 75, kg, PRN, PRN Blood Glucose Results, Start date: 03/12/16 15:24:00 METAL CUTTER, Duration: 30 day, Stop date: 04/11/16 15:23:00 METAL CUTTER Insulin, No Notes: Memoria Aspart, 1-31 Roll in l Human 21:24: palms of [place] 00 hands gently; Do not shake vigorously . (Same as: NovoLOG) "single patient use only" WASTE: F/P - Black; E - Municipal Trash Bin Stable for 28 days at room temperatur e. Expires in days from ____Date sennosides, No Notes: Derick rodney ALF -31 (Same as: l 18:00: Senokot) [place] Saline No Notes: Memoria Flush 0.9% 1-31 (Same as: l 15:00: BD [place] Posiflush) Keppra No Notes: Memoria 1-31 (Same l 15:00: as:Keppra) Kain 00 Buspar No Notes: Memoria 1-31 (Same As: l 14:00: BuSpar) [place] insulin, No Notes: Memoria isophane 1-31 Roll in l 14:00: palms of [place] 00 hands gently; Do not shake vigorously . (Same as: Humulin N) Do not hold insulin without contacting prescriber WASTE: F/P - Black; E - Municipal Trash Bin Stable for 28 days at room temperatur e Expires in days from ____Date Miralax No Notes: Memoria 1-31 Dissolve l 14:00: in 8 oz of Kain water or juice. (Same as: Miralax) Docusate No Notes: Memoria 1-31 (Same as: l 14:00: Colace) [place] (Do Not Crush) Insulin, No Notes: Memoria Aspart, 03-12 Roll in l Human 09:15: palms of Kain hands gently; Do not shake vigorously . (Same as: NovoLOG) "single patient use only" WASTE: F/P - Black; E - Municipal Trash Bin Stable for 28 days at room temperatur e. Expires in days from ____Date Dextrose No 25 gm, 50 Derick rodney 50% Syringe 1-31 mL, Route: l 09:15: IVP, Drug [place] 00 Form: INJ, Dosing Weight 75, kg, PRN, PRN Blood Glucose Results, Start date: 03/12/16 3:15:00 METAL CUTTER, Duration: 30 day, Stop date: 04/11/16 3:14:00 METAL CUTTER Glucagon No 1 mg, Memoria 03-12 Route: IM, l 09:15: Drug form: [place] 00 PDR/INJ, PRN, Dosing Weight 75, kg, PRN Blood Glucose Results, Start date: 03/12/16 3:15:00 METAL CUTTER, Duration: 30 day, Stop date: 04/11/16 3:14:00 METAL CUTTER Sodium No 1 gm, 1 Memoria Chloride 03-12 tab, l 1000 MG 06:00: Route: PO, Herm suhas Oral Tablet 00 Drug form: TAB, Q6H, Dosing Weight 90.009, kg, Start date: 03/12/16 0:00:00 METAL CUTTER, Duration: 30 day, Stop date: 04/10/16 18:00:00 METAL CUTTER Nimodipine No Notes: Memor ia 03-12 (Same [...] 0.9% 03-12 (Same as: l 03:52: BD [place] Posiflush) POLYETHYLEN Yes PO, Daily, Memoria E GLYCOL 30 0 l 3350 23:13: Refill(s) Kain Levetiracet Yes 500 mg = 5 Memoria am 100 1-30 mL, PO, l MG/ML Oral 23:13: Q12H, 0 Herm suhas Solution 00 Refill(s) insulin Yes 40 unit, Memori a isophane -30 SUB-Q, l (NPH) 100 23:13: Q8H, 0 Jimi n units/mL 00 Refill(s) human recombinant subcutaneou s suspension heparin Yes 5,000 unit Derick rodney 30 = 1 mL, l 23:13: SUB-Q, [place] 00 Q8H, 0 Refill(s) bisacodyl Yes 10 mg = 1 Mem oria 10 mg 03-11 supp, RI, l rectal 23:13: ONCE, PRN Jimi n suppository 00 Constipati on | once, 0 Refill(s) insulin, No Notes: Memoria isophane 03-10 Roll in l 22:00: palms of [place] 00 hands gently; Do not shake vigorously [...] kg, Priority: NOW, Start date: 03/09/16 18:11:00 METAL CUTTER, Duration: 30 day, Stop date: 04/08/16 18:00:00 METAL CUTTER Ancef + 2017-0 No Notes: Memoria sodium 1-27 (Same As: l chloride 16:55: Ancef, Kain 0.9% INJ 00 Kefzol) 100 mL Cefazolin FOR IV SET ONLY MEDICATION WASTE Product Size: 1000 mg Product Wasted: ___ mg Sodium 2017-0 No 1,000 mL, Memori a Chloride 1-27 1,000 l 0.154 12:25: ml/hr, [place] MEQ/ML 00 Infuse Injectable Over: 1 Solution hr, Route: IV, 1,000, Drug form: INJ, ONCE, Priority: STAT, Dosing Weight 90.009 kg, Start date: 03/08/16 6:25:00 METAL CUTTER, Duration: 1 doses or times, Stop date: 03/08/16 6:25:00 METAL CUTTER Sodium 2017-0 No 250 mL, Memoria Chloride 1-26 250 ml/hr, l 0.154 20:24: Infuse [place] MEQ/ML 00 Over: 1 Injectable hr, Route: Solution IV, 250, Drug form: INJ, ONCE, Priority: STAT, Dosing Weight 90.009 kg, Start date: 03/07/16 14:24:00 METAL CUTTER, Duration: 1 doses or times, Stop date: 03/07/16 14:24:00 METAL CUTTER Sodium 2017-0 No 500 mL, Memoria Chloride 1-25 500 ml/hr, l 0.154 13:54: Infuse [place] MEQ/ML 00 Over: 1 Injectable hr, Route: Solution IV, 500, Drug form: INJ, ONCE, Priority: STAT, Dosing Weight 90.009 kg, Start date: 03/06/16 7:54:00 METAL CUTTER, Duration: 1 doses or times, Stop date: 03/06/16 7:54:00 METAL CUTTER Sodium 2017-0 No 500 mL, Memoria Chloride 1-25 500 ml/hr, l 0.154 12:30: Infuse [place] MEQ/ML 00 Over: 1 Injectable hr, Route: Solution IV, 500, Drug form: INJ, ONCE, Priority: STAT, Dosing Weight 90.009 kg, Start date: 03/06/16 6:30:00 METAL CUTTER, Duration: 1 doses or times, Stop date: 03/06/16 6:30:00 METAL CUTTER Racepinephr No Notes: Derick rodney ine 22.5 -24 (racepinep l MG/ML 09:00: hrine [place] Inhalant 00 *2.25% inh Solution 0.5ml SOLN) (Same as:S2) Dexamethaso No Notes: Derick rodney ne 24 Concentrat l 06:42: ion: [place] 00 4mg/ml Ondansetron No Notes: Derick rodney - (Same as: l 23:03: Zofran) [place] 00 MEDICATION WASTE Product Size: 4 mg Product Wasted: ___ mg Flumazenil No Notes: Memor ia 03-04 (Same as: l 23:03: Romazicon) [place] 00 Naloxone No Notes: Memoria 03-04 Same as l 23:03: Narcan [place] 00 Labetalol No 10 mg, 2 Derick rodney -23 mL, Route: l 23:03: IVP, Drug [place] 00 form: INJ, Q5Min, Dosing Weight 90.009, kg, PRN Elevated BP, Start date: 03/04/16 17:03:00 METAL CUTTER, Duration: 5 doses or times, Stop date: Limited # of times esmolol No 10 mg, Memoria 03-04 Route: l 23:03: IVP, [place] 00 Q5Min, Dosing Weight 90.009, kg, PRN Other -See Comment, Start date: 03/04/16 17:03:00 METAL CUTTER, Duration: 5 doses or times, Stop date: Limited # of times Morphine No Notes: Memoria 03-04 (Same l 23:03: as:MORPhin [place] 00 e Sulfate) Omnipaque No 150 ml, Memor ia 300 03-04 Route: l 22:39: INTRAARTER [place] 00 IAL, Dosing Weight 90.009, kg, ONCE, Start date: 03/04/16 16:39:00 METAL CUTTER, Stop date: 03/04/16 16:39:00 METAL CUTTER Ampicillin No Notes: Memor ia 03-04 (Same as: l 14:00: [place]) [place] 00 MEDICATION WASTE Product Size: 1000 mg Product Wasted: ___ mg Dulcolax No Notes: Memoria Laxative 03-04 (Same As: l 13:17: Dulcolax, [place] 00 Bisco-Lax) magnesium No Notes: Memori a citrate 03-03 (Same as: l 58.2 MG/ML 16:52: Citrate of H ermann Oral 00 Magnesia) Solution Concentrat ion: 1.745 gm / 30 mL Sodium No 500 mL, Memoria Chloride 03-03 500 ml/hr, l 0.154 14:37: Infuse [place] MEQ/ML 00 Over: 1 Injectable hr, Route: Solution IV, 500, Drug form: INJ, ONCE, Priority: STAT, Dosing Weight 90.009 kg, Start date: 03/03/16 8:37:00 METAL CUTTER, Duration: 1 doses or times, Stop date: 03/03/16 8:37:00 METAL CUTTER Sodium No 500 mL, Memoria Chloride 03-03 500 ml/hr, l 0.154 03:40: Infuse [place] MEQ/ML 00 Over: 1 Injectable hr, Route: Solution IV, 500, Drug form: INJ, ONCE, Priority: STAT, Dosing Weight 90.009 kg, Start date: 03/02/16 21:40:00 METAL CUTTER, Duration: 1 doses or times, Stop date: 03/02/16 21:40:00 METAL CUTTER Tylenol No Notes: Max Derick rodney 03-02 acetaminop l 16:25: hen = [place] 00 4000mg/day (4 gm/day). (Same as: Tylenol) Dulcolax No Notes: Memoria Laxative 03-02 (Same As: l 15:14: Dulcolax, [place] 00 Bisco-Lax) Sodium No 1,000 mL, Memori a Chloride 03-02 1,000 l 0.154 15:04: ml/hr, [place] MEQ/ML 00 Infuse Injectable Over: 1 Solution hr, Route: IV, 1,000, Drug form: INJ, ONCE, Priority: STAT, Dosing Weight 90.009 kg, Start date: 03/02/16 9:04:00 METAL CUTTER, Duration: 1 doses or times, Stop date: 03/02/16 9:04:00 METAL CUTTER Dexamethaso No Notes: Derick rodeny ne 1-21 Give with l 15:00: food. [place] 00 (Same As: Decadron) Zantac No Notes: Memoria 1-21 (Same l 03:00: as:Zantac) [place] 00 Take before or with meals Racepinephr No Notes: Derick rodney ine 22.5 -20 (racepinep l MG/ML 20:46: hrine [place] Inhalant 00 *2.25% inh Solution 0.5ml SOLN) (Same as:S2) Albuterol No Notes: SEE Me moria 0.83 MG/ML -20 RT l Inhalant 20:46: DOCUMENTAT Her layton Solution 00 ION (Same as: Proventil) Dulcolax No Notes: Memoria Laxative -20 (Same As: l 13:49: Dulcolax, [place] 00 Bisco-Lax) Fentanyl No 1,000 Memoria 1-20 microgram, l 03:21: 20 mL, [place] 00 Rate: Titrate, Start Dose: 50 microgram/ hr, Titration: 25 microgram/ hour every 15 minutes, Goal(s): RASS 0 to -1, Max Dose: 300 microgram/ hr, Route: IV, Dosing Weight 90.009 kg, Total Volume: 20, Start date: 02/29/16 21:21:00 C... Dexamethaso No Notes: Derick rodney ne 1-20 Give with l 03:00: food. [place] (Same As: Decadron) insulin, No Notes: Memoria isophane 1-19 Roll in l 22:00: palms of [place] hands gently; Do not shake vigorously . (Same as: Humulin N) Do not hold insulin without contacting prescriber WASTE: F/P - Black; E - Municipal Trash Bin Stable for 28 days at room temperatur e Expires in days from ____Date sodium No 1,000 mL, Memori a chloride -19 Rate: 100 l 0.9% 1000 16:01: ml/hr, Jimi n ml INJ 00 Infuse 1,000 mL over: 10 hr, Route: IV, Dosing Weight 90.009 kg, Total Volume: 1,000, Start date: 02/29/16 10:01:00 METAL CUTTER, Stop date: 03/30/16 10:00:00 METAL CUTTER magnesium No Notes: Memori a citrate 1-19 (Same as: l 58.2 MG/ML 15:24: Citrate of H ermann Oral 00 Magnesia) Solution Concentrat ion: 1.745 gm / 30 mL Streptococc No Notes: Derick rodney us 1-19 (Same as: l pneumoniae 15:00: Prevnar Herm suhas serotype 1 00 13) capsular antigen diphtheria [id number] protein conjugate vaccine / Streptococc us pneumoniae serotype 14 capsular antigen diphtheria [id number] protein conjugate vaccine / Streptococc us pneumoniae serotype 18C capsular antigen d Miralax No Notes: Memoria 1-19 Dissolve l 15:00: in 8 oz of [place] 00 water or juice. (Same as: Miralax) Tylenol No Notes: Max Derick rodney 1-19 acetaminop l 11:47: hen = [place] 00 4000mg/day (4 gm/day). (Same as: Tylenol) Sodium No 500 mL, Memoria Chloride 1-19 500 ml/hr, l 0.154 05:36: Infuse [place] MEQ/ML 00 Over: 1 Injectable hr, Route: Solution IV, 500, Drug form: INJ, ONCE, Priority: STAT, Dosing Weight 90.009 kg, Start date: 02/28/16 23:36:00 METAL CUTTER, Duration: 1 doses or times, Stop date: 02/28/16 23:36:00 METAL CUTTER Sodium No 1,000 mL, Memori a Chloride 1-19 1,000 l 0.154 04:21: ml/hr, [place] MEQ/ML 00 Infuse Injectable Over: 1 Solution hr, Route: IV, 1,000, Drug form: INJ, ONCE, Priority: STAT, Dosing Weight 90.009 kg, Start date: 02/28/16 22:21:00 METAL CUTTER, Duration: 1 doses or times, Stop date: 02/28/16 22:21:00 METAL CUTTER Insulin 2017-0 No 60 Memoria regular 1-18 units) l 16:21: WASTE: F/P [place] 00 - Black; E - Municipal Trash Bin Stable for 28 days at room temperatur e Expires in days from ____Date Dextrose 2017-0 No 12.5 gm, Memor ia 50% Syringe 1-18 25 mL, l 16:21: Route: [place] 00 IVP, Drug Form: INJ, Dosing Weight 90.009, kg, PRN, PRN Blood Glucose Results, Start date: 02/28/16 10:21:00 METAL CUTTER, Duration: 30 day, Stop date: 03/29/16 10:20:00 METAL CUTTER Glucagon 2017 No 1 mg, Memoria 1-18 Route: IM, l 16:21: Drug form: [place] 00 PDR/INJ, PRN, Dosing Weight 90.009, kg, PRN Blood Glucose Results, Start date: 02/28/16 10:21:00 METAL CUTTER, Duration: 30 day, Stop date: 03/29/16 10:20:00 METAL CUTTER insulin, 2016-0 No Notes: [facility] isophane 1-18 Roll in l 15:00: palms of [place] 00 hands gently; Do not shake vigorously . (Same as: Humulin N) Do not hold insulin without contacting prescriber WASTE: F/P - Black; E - Municipal Trash Bin Stable for 28 days at room temperatur e Expires in days from ____Date Regular 2017-0 No 60 Memoria Insulin, 1-18 units) l Human 100 12:56: WASTE: F/P He rmann UNT/ML 00 - Black; E Injectable - Solution Municipal Trash Bin Stable for 28 days at room temperatur e Expires in days from ____Date Dextrose 2016-0 No 6.25 gm, Memor ia 50% Syringe 1-18 12.5 mL, l 12:56: Route: [place] 00 IVP, Drug Form: INJ, Dosing Weight 90.009, kg, PRN, PRN Abnormal Lab Result, Start date: 02/28/16 6:56:00 METAL CUTTER, Duration: 30 day, Stop date: 03/29/16 6:55:00 METAL CUTTER heparin No Notes: [facility]oria -18 porcine l 06:01: heparin Famotidine No Notes: Memor ia 18 (Same as: l 03:00: Pepcid) Levetiracet No Notes: Derick rodney am 500 MG 02-27 (Same l Oral Tablet 03:00: as:Keppra) [place] [Keppra] Dexamethaso No Notes: Derick rodney ne 02-26 Give with l 18:00: food. (Same As: Decadron) chlorhexidi No Notes: Derick rodney ne 02-26 (Same As: l gluconate 18:00: Peridex) Herm suhas 1.2 MG/ML 00 Mouthwash Sodium No 1,000 mL, Memori a Chloride 02-26 1,000 l 0.154 08:42: ml/hr, [place] MEQ/ML 00 Infuse Injectable Over: 1 Solution hr, Route: IV, 1,000, Drug form: INJ, ONCE, Priority: STAT, Dosing Weight 90.009 kg, Start date: 02/27/16 2:42:00 METAL CUTTER, Duration: 1 doses or times, Stop date: 02/27/16 2:42:00 METAL CUTTER Cefazolin No Notes: Memori a 02-26 (Same As: l 07:00: Ancef, Kefzol) Cefazolin FOR IV SET ONLY [...] Sodium No 120 mEq, Memoria Chloride 4 02-26 30 mL, 60 l MEQ/ML 04:47: ml/hr, [place] Injectable 00 Infuse Solution Over: 30 minutes, Route: IV, 30, Drug form: INJ, ONCE, Dosing Weight 90.009 kg, Start date: 02/26/16 22:47:00 METAL CUTTER, Duration: 1 doses or times, Stop date: 02/26/16 22:47:00 METAL CUTTER Mannitol No Notes: [facility]oria 02-26 (Same as: l 04:29: Osmitrol) [place] 00 Infuse through 5 micron or smaller filter WASTE: F/P - Sink; E - Municipal Trash Bin chlorhexidi No Notes: Derick rodney ne 02-26 (Same As: l gluconate 03:00: Peridex) Herm suhas 1.2 MG/ML 00 Mouthwash Calcium No Notes: [facility]oria Carbonate 02-26 (Same As: l 500 MG 02:51: Tums) [place] Chewable 00 Calcium Tablet Carbonate 500 mg = 200 mg elemental calcium Dose = mg calcium carbonate ( mg elemental calcium) Calcium No Notes: [facility] Gluconate 02-26 WASTE: F/P l 02:51: - Sink; E [place] 00 - Municipal Trash Bin Magnesium No Notes: Memori a Sulfate 02-26 WASTE: F/P l 02:51: - Sink; E [place] - Municipal Trash Bin potassium No Notes: Memori a phosphate-s 02-26 (Same as: l odium 02:51: Phos-NaK) [place] phosphate 00 Each 1.5 250 mg-280 gm pkt has mg-160 mg 250mg oral powder phosphorou for s. Mix reconstitut w/2.5oz ion water and stir. Magnesium No Notes: Memori a Oxide 02-26 (Same as: l 02:51: Mag-Ox [place] 00 400) Magnesium oxide 886mz=490i g elemental magnesium Dose=____m g magnesium oxide (___mg elemental magnesium) potassium No Notes: Memori a phosphate + 02-26 (Same as: l sodium 02:51: K [place] chloride 00 Phosphate. 0.9% INJ ) 1 mMol 250 mL phoshate has 1.47 mEq potassium Infuse over 4 hours sodium No 30 mmol, Memoria phosphate + 17 10 mL, l sodium 02:51: Route: [place] chloride 00 IVPB, PRN, 0.9% INJ Dosing 250 mL Weight 90.009, kg, PRN Abnormal Lab Result, Start date: 02/26/16 20:51:00 METAL CUTTER, Duration: 30 day, Stop date: 03/27/16 20:50:00 METAL CUTTER, FOR ICU USE ONLY potassium No Notes: Memori a chloride 02-26 (Same as: l 02:51: Potassium [place] 00 Chloride) Dextrose No 12.5 gm, Memor ia 50% Syringe 02-26 25 mL, l 02:50: Route: [place] 00 IVP, Drug Form: INJ, Dosing Weight 90.009, kg, PRN, PRN Blood Glucose Results, Start date: 02/26/16 20:50:00 METAL CUTTER, Duration: 30 day, Stop date: 03/27/16 20:49:00 METAL CUTTER Insulin No Notes: [facility]oria regular 100 02-26 (Same as: l unit + 02:50: Humulin R Jimi n sodium 00 and chloride NovoLIN R) 0.9% INJ 99 WASTE: mL F/P - Black; E - Municipal Trash Bin (Do not shake) Fentanyl No 1,000 [facility]oria 1-17 microgram, l 02:48: 20 mL, [place] 00 [...] 10 MG Oral hen. Tablet (Same as: [[place]mira Elmira 10/325] 325/10) Ancef No 1 gm, Memoria 16 Route: l 23:15: IVPB, [place] 00 ONCE, Dosing Weight 90.009, kg, Start date: 02/26/16 17:15:00 METAL CUTTER, Stop date: 02/26/16 17:15:00 METAL CUTTER Ancef No 2 gm, Memoria 1-16 Route: IV, l 20:15: ONCE, [place] Dosing Weight 90.909, kg, Start date: 02/26/16 14:15:00 METAL CUTTER, Duration: 1 doses or times, Stop date: 02/26/16 14:15:00 METAL CUTTER, Surgical Prophylaxi s Only; For patients < 120 kg Propofol 10 No 1,000 mg, M emoria MG/ML -16 100 mL, l Injectable 17:59: Rate: Jimi n Suspension 00 Titrate, Start Dose: 5 microgram/ kg/min, Titration: 5 microgram/ kg/min every 15 min, Goal(s): MAP 70-100, Max Dose: 50 microgram/ kg/min, Route: IV, Dosing Weight 90.909 kg, Total Volume: 100, Start date: 02/26/16 11:59:00 METAL CUTTER,... Fentanyl No Notes: Memoria 1-16 (Same as: l 17:58: Sublimaze) Preservat cristina free. chlorhexidi No Notes: Derick rodney ne -16 (Same As: l gluconate 15:39: Peridex) Herm suhas 1.2 MG/ML 00 Mouthwash Ancef + No Notes: [facility]oria sodium -16 (Same As: l chloride 15:38: Ancef, [place] 0.9% INJ 00 Kefzol) 100 mL MEDICATION WASTE Product Size: 1000 mg Product Wasted: ___ mg Docusate No Notes: Memoria 1-16 (Same as: l 15:00: Colace) Famotidine No Notes: Memor ia 1-16 (Same as: l 15:00: Pepcid) sennosides, No Notes: Derick rodney ALF -16 (Same as: l 15:00: Senokot) Levetiracet No Notes: Derick rodney am -16 Same as l 15:00: Keppra Mix with 100 mL NS, LR or D5W MEDICATION WASTE Product Size: 500 mg Product Wasted: ___ mg Omnipaque 2017-0 No 150 ml, Memor ia 350 02-25 Route: l 14:56: INTRAARTER [place] 00 IAL, Dosing Weight 90.909, kg, ONCE, Start date: 02/26/16 8:56:00 METAL CUTTER, Stop date: 02/26/16 8:56:00 METAL CUTTER Nimodipine 2016-0 No Notes: Memor ia 16 (Same as l 12:00: Nimodipine oral suspension 30mg/ml) Instill dose into NG tube and then flush with 30ml of NS Dexamethaso 2016-0 No Notes: Derick rodney ne 16 Concentrat l 12:00: ion: [place] 00 4mg/ml Keppra 2016-0 No 500 mg, Memoria 02-25 Route: IV, l 11:39: ONCE, Dosing Weight 90.909, kg, Start date: 02/26/16 5:39:00 METAL CUTTER, Stop date: 02/26/16 5:39:00 METAL CUTTER Ondansetron 2017-0 No 4 mg, Memor ia 02-25 Route: l 11:31: IVP, Drug form: INJ, ONCE, Dosing Weight 90.909, kg, Priority: STAT, Start date: 02/26/16 5:31:00 METAL CUTTER, Stop date: 02/26/16 5:31:00 METAL CUTTER Morphine 2017-0 No 4 mg, Memoria 02-25 Route: l 11:31: IVP, ONCE, Dosing Weight 90.909, kg, Priority: STAT, Start date: 02/26/16 5:31:00 METAL CUTTER, Stop date: 02/26/16 5:31:00 METAL CUTTER Dextrose 2017-0 No 6.25 gm, Memor ia 50% Syringe 02-25 12.5 mL, l 10:09: Route: IVP, Drug Form: INJ, Dosing Weight 90.909, kg, PRN, PRN Abnormal Lab Result, Start date: 02/26/16 4:09:00 METAL CUTTER, Duration: 30 day, Stop date: 03/27/16 4:08:00 METAL CUTTER Regular 2017-0 No 60 Memoria Insulin, 1-16 units) l Human 100 10:09: WASTE: F/P He rmann UNT/ML 00 - Black; E Injectable - Solution Municipal Trash Bin Stable for 28 days at room temperatur e Expires in days from ____Date Sodium 2017-0 No 1,000 mL, Memori a Chloride -16 Rate: 75 l 0.154 10:09: ml/hr, [place] MEQ/ML 00 Infuse Injectable over: 13.3 Solution hr, Route: IV, Dosing Weight 90.909 kg, Total Volume: 1,000, Start date: 02/26/16 4:09:00 METAL CUTTER, Duration: 30 day, Stop date: 03/27/16 4:08:00 METAL CUTTER iodixanol 0 No 100 mL, Memor ia -16 Route: l 09:43: IVP, Drug [place] 00 Form: SOLN, Dosing Weight 90.909, kg, ONCALL, STAT, Start date: 02/26/16 3:43:00 METAL CUTTER, Duration: 1 doses or times, Dose = 2.2ml/kg, Max dose = 100ml -- "To be infused by Radiology Staff ONLY" Saline No Notes: Memoria Flush 0.9% -16 Same as: l 08:46: BD [place] 00 Posiflush Sterile Vital Signs Vital Name Observation Time Observation Value Comments Source Temperature Oral (F) 2017-08-26 22:04:00 98.0 F [facility] [place] Respitory Rate 2017-08-26 22:04:00 Mem[facility] al [place] Systolic (mm Hg) 2017-08-26 22:04:00 Derick rial [place] Diastolic (mm Hg) 2017-08-26 22:04:00 Mem orial [place] Heart Rate 2017-08-26 22:04:00 [facility] [place] Heart Rate 2017-08-26 17:41:00 [facility] [place] Respitory Rate 2017-08-26 17:41:00 Memori al [place] Systolic (mm Hg) 2017-08-26 17:41:00 Derick rial [place] Diastolic (mm Hg) 2017-08-26 17:41:00 Mem orial [place] Temperature Oral (F) 2017-08-26 17:41:00 98.8 F [facility] [place] Temperature Oral (F) 2017-08-26 15:05:00 97.5 F [facility] [place] Heart Rate 2017-08-26 15:05:00 [facility] [place] Systolic (mm Hg) 2017-08-26 15:05:00 Derick rial [place] Diastolic (mm Hg) 2017-08-26 15:05:00 Mem orial [place] Respitory Rate 2017-08-26 15:05:00 [facility] [place] Weight 2017-08-25 14:36:00 [facility] [place] BMI Calculated 2017-08-25 14:36:00 [facility] [place] Height 2017-08-25 14:36:00 134.62 cm [facility] [place] BMI Calculated 2017-08-24 22:40:00 [facility] [place] Height 2017-08-24 22:40:00 162.56 cm [facility] [place] Weight 2017-08-24 22:40:00 [facility] [place] Weight 2017-08-24 22:24:00 [facility] [place] BMI Calculated 2017-08-24 22:24:00 [facility] [place] Height 2017-08-24 22:24:00 162.56 cm [facility] [place] Weight 2016-06-20 14:40:00 [facility] [place] Respitory Rate 2016-06-20 13:35:00 [facility] [place] Systolic (mm Hg) 2016-06-20 13:00:00 Derick rial [place] Diastolic (mm Hg) 2016-06-20 13:00:00 Mem orial [place] Respitory Rate 2016-06-20 13:00:00 [facility] al [place] Systolic (mm Hg) 2016-06-20 12:00:00 Derick rial [place] Diastolic (mm Hg) 2016-06-20 12:00:00 Mem orial [place] Respitory Rate 2016-06-20 12:00:00 Memori al [place] Systolic (mm Hg) 2016-06-20 11:00:00 Derick rial [place] Diastolic (mm Hg) 2016-06-20 11:00:00 [facility] [place] BMI Calculated 2016-06-19 11:22:00 [facility] [place] Weight 2016-06-19 11:22:00 [facility] [place] Height 2016-06-19 11:22:00 162.56 cm [facility] [place] Heart Rate 2016-06-19 11:22:00 [facility] [place] Height 2016-06-18 16:25:00 162.56 cm [facility] [place] BMI Calculated 2016-06-18 16:25:00 [facility] [place] Weight 2016-06-18 16:25:00 [facility] [place] Temperature Oral (F) 2016-03-29 13:26:00 97.9 F [facility] [place] Systolic (mm Hg) 2016-03-29 13:26:00 Derick rial [place] Diastolic (mm Hg) 2016-03-29 13:26:00 Mem orial [place] Heart Rate 2016-03-29 13:26:00 [facility] [place] Temperature Oral (F) 2016-03-29 05:10:00 98.5 F [facility] [place] Heart Rate 2016-03-29 05:10:00 [facility] [place] Systolic (mm Hg) 2016-03-29 05:10:00 Derick rial [place] Diastolic (mm Hg) 2016-03-29 05:10:00 Mem orial [place] Respitory Rate 2016-03-29 05:10:00 [facility] al [place] Respitory Rate 2016-03-28 20:00:00 [facility] al [place] Systolic (mm Hg) 2016-03-28 20:00:00 Derick rial [place] Diastolic (mm Hg) 2016-03-28 20:00:00 Mem orial [place] Temperature Oral (F) 2016-03-28 20:00:00 98.3 F [facility] [place] Heart Rate 2016-03-28 20:00:00 [facility] [place] Respitory Rate 2016-03-28 12:35:00 [facility] [place] Weight 2016-03-12 04:00:00 [facility] [place] BMI Calculated 2016-03-12 04:00:00 [facility] [place] Height 2016-03-12 04:00:00 162.56 cm [facility] [place] Weight 2016-03-12 03:52:00 [facility] [place] BMI Calculated 2016-03-12 03:52:00 [facility] [place] Height 2016-03-12 03:52:00 162.56 cm [facility] [place] Systolic (mm Hg) 2016-03-12 02:39:00 Derick rial [place] Diastolic (mm Hg) 2016-03-12 02:39:00 Mem orial [place] Respitory Rate 2016-03-12 02:39:00 Memori al [place] Heart Rate 2016-03-12 02:39:00 [facility] [place] Temperature Oral (F) 2016-03-12 02:39:00 100.1 F [facility] [place] Systolic (mm Hg) 2016-03-12 02:00:00 Derick rial [place] Diastolic (mm Hg) 2016-03-12 02:00:00 Mem orial [place] Systolic (mm Hg) 2016-03-11 22:55:00 Derick rial [place] Diastolic (mm Hg) 2016-03-11 22:55:00 Mem orial [place] Heart Rate 2016-03-11 22:55:00 [facility] [place] Respitory Rate 2016-03-11 22:55:00 Memori al [place] Temperature Oral (F) 2016-03-11 22:55:00 98.3 F [facility] [place] Temperature Oral (F) 2016-03-11 18:04:00 98.0 F [facility] [place] Respitory Rate 2016-03-11 18:04:00 [facility] al [place] Heart Rate 2016-03-11 18:04:00 [facility] [place] Height 2016-03-01 20:30:00 160.02 cm [facility] [place] Height 2016-03-01 16:58:00 160.02 cm [facility] [place] Height 2016-03-01 13:44:00 160.02 cm [facility] [place] Weight 2016-02-26 22:08:00 [facility] [place] BMI Calculated 2016-02-26 22:08:00 [facility] [place] Weight 2016-02-26 08:37:00 [facility] [place] BMI Calculated 2016-02-26 08:37:00 [facility] [place] Procedures Procedure Date / Time Performing Clinician [...] and ce Selective catheter 2016-03-04 21:55:00 [facility] [place] placement, vertebral artery, unilateral, with angiography of the ipsilateral vertebral circulation and all associated radiological supervision and interpretation, includes angiography of the cervicocerebral arch, when performed Craniotomy and clipping of Memor ial [place] intracranial aneurysm Repair of aneurysm by [facility] Encounters Start End Encounter Admission Attending Care Care Encounter Source Date/Time Date/Time Type Type Clinicians Facility Department ID 2019-04-04 2019-04-05 Emergency Bryan Milligan [facility] [id number] 05:56:22 14:32:00 Corby Dickinson [id number] [place] [id number] [place] [id number] 2019-04-04 2019-04-04 Orders Doctor MARY ANN [id number] 00:00:00 00:00:00 Only Unassigned, FOREIGN [id number] [place] [facility] [id number] 2017-08-24 2017-08-26 Outpatient Dirk [facility] [id number] 14:08:00 18:16:00 Veronika 67 Violet 2016-06-19 2016-06-20 Outpatient Dionne Ji [facility] [id number] 05:36:00 12:22:00 Marco 01 2016-03-11 2016-03-29 Outpatient Jacy [facility] [id number] 21:51:00 12:50:00 os, Boom 00 José Manuel 2016-02-26 2016-03-11 Outpatient Mae [facility] [id number] 02:37:00 21:43:00 Rayray Karimi 67 Results Test Description Test Time Test Comments Results Result [facility] e Comments SCR MAMM 2017-12-0 - SCR MAMM BILATERAL BILATERAL DAVE 6 DAVE CAD CAD DIGITAL 15:55:39 DIGITALBILATERAL DIGITAL SCREENING MAMMOGRAM 3D/2D WITH CAD: 12/10/2017CLINICAL: Asymptomatic. Digital breast tomosynthesis was performed in addition to routine CC and MLO views. Current mammographic images were evaluated by either a [employer] M-Vu or a [employer] ImageChecker CAD (computer aided detection system). No [...] annual screening mammography in one year. Deshaun jacinto/penrad:12/16/2017 15:55:39 It Help Desk Associate: Nneka Kahn MM, [facility] Mammographyletter sent: BIRADS 1-2 Normal Mammogram BI-RADS: 2 Benign HEMATOLOGY 2017-08-10 0.1 [place] [address] [place] 06:55:00 HEMATOLOGY 2017-08-10 0.6 [facility] 7 [place] 06:55:00 HEMATOLOGY 2017-08-10 8.2 [facility] 7 [place] 06:55:00 HEMATOLOGY 2017-08-10 38.7 [facility] 7 [place] 06:55:00 HEMATOLOGY 2017-08-10 4.18 [facility] 7 [place] 06:55:00 HEMATOLOGY 2017-08-10 13.1 [facility] 7 [place] 06:55:00 HEMATOLOGY 2017-08-10 9.1 [facility] 7 [place] 06:55:00 HEMATOLOGY 2017-08-10 13.1 [place] [address] [place] 06:55:00 HEMATOLOGY 2017-08-10 230 [facility] 7 [place] 06:55:00 HEMATOLOGY 2017-08-26 06:55:00 Test Item Value Reference Range Interpretation Comme nts MCH (test code = MCH) 31.4 pg 27.0-31.0 [facility] EohwrcqLOYMPDKYME0291-63-19 06:55:0033.9[facility] 2017-08-26 06:55:0092.4[facility]annPARATHYROID SKJWSVW0447-52-28 06:55:00 1.11[facility]annPARATHYROID CMFANRV5926-74-60 06:55:001.11[facility] [place] CHEM NEHKL9093-73-12 06:55:005.0[facility]annCHEM IYANJ5593-00-62 06:55:002.1 [facility]annCHEM [id number] 06:55:0076[facility]annCHEM PANEL 2017-08-26 06:55:000.81[facility]annCHEM TSNQB3944-01-23 06:55:90880Ilqipfdo HermannCHEM NTRPN2707-74-78 06:55:00025Qmiruoaj HermannCHEM CESMM4326-38-51 06:55:004.6[facility] HermannCHEM MZLJM3979-01-23 06:55:0019[facility] HermannCHEM CNMDR0728-13-62 06:55:0025[facility] HermannCHEM EBXBT9598-82-47 06:55:009.2 [facility]annCHEM CIXUI9194-13-06 06:55:79971Xdmwiqru HermannCHEM PANEL 2017-08-26 06:55:0015.6[facility] WuwfjpcGRUFUFKHNJ1235-67-77 06:55:007.2[facility] LtwfqtwZAMGOJHAUV1378-28-99 06:55:0051.4[facility] KafdcrzHCNMMYMNMJ7767-64-92 06:55:0038.6[facility] XdynrhfHDGZWRIFKK6912-51-97 06:55:003.2[facility] [place] RTDJIBMWTE0212-04-26 06:55:001.9[facility] EzbjqwnUAMDZVNEON0776-34-28 06:55:000.9 [facility] XtaeugtLUPMKNMOCW7044-98-31 06:55:004.2[facility] HermannHEMATOLOGY 2017-08-26 06:55:000.2[facility] VilfojpWOWVMO5960-93-43 20:04:00 Test Item Value Reference Range Interpretation Comments VLDL (test code = VLDL) 22 1 [facility] MtgsqbqMBZLDX0431-49-72 20:04:0067[facility] OapowqgBKVGKB5682-84-26 20:04:0030[facility] TtcttojYQPZNV0926-28-01 20:04:54034Fqxostom HermannLIPIDS 2017-08-24 20:04:89121Rdsmugdo LszjbolYUCHQJ0393-98-89 20:04:00 Test Item Value Reference Range Interpretation Comments CHD Risk (test code = CHD Risk) 3.97 1 3.90-5.80 [facility]annSPECIAL FHEQRFCZT1379-16-62 20:04:008.1[facility]annURINE AND PNUQV3842-36-25 20:04:00None Seen (08/24/17 3:04 PM)[facility] FXZOL5689-32-74 20:04:00None Seen (08/24/17 3:04 PM)[facility] TXFQN8962-02-74 20:04:000.2[facility] AND ZBZRY6298-37-75 20:04:00 Negative (08/24/17 3:04 PM)[facility] XDYZY9151-00-81 20:04:00 Negative (08/24/17 3:04 PM)[facility] YRQUA5746-02-88 20:04:00 Negative (08/24/17 3:04 PM)[facility] [id number] 20:04:00 Negative *NA*(08/24/17 3:04 PM)[facility] TOUZC1984-33-06 20:04:00 Test Item Value Reference Range Interpretation Comments UA pH (test code = UA pH) 6.0 1 5.0-8.0 [facility] POHJD5583-48-49 20:04:00 Test Item Value Reference Range Interpretation Comments UA Spec Grav (test code = UA Spec 1.010 1 Grav) [facility] [id number] 20:04:00Clear (08/24/17 3:04 PM) [facility] YFBRN1177-46-04 20:04:00Yellow *NA*(08/24/17 3:04 PM) [facility]annCARDIAC KPQTRFM9699-06-38 19:18:26<0.02[facility] [place] CARDIAC VNXHLQW9588-33-07 19:18:2688[facility] QwxxtisCQHQFVMGSAEV5586-95-26 19:18:2615.5[facility] WffoiyoXZPRQZVFCMWD7137-32-33 19:18:2623[facility] [place] ZARJTORLZPFZ1676-71-59 19:18:269.0[facility] ZhfdjmoTOEZHROKDVXQ9008-93-88 19:18:58794Zgudwpmj RpcqauqRNBEANXAFSPJ0086-50-75 19:18:2677[facility] [place] NOHWIDUZMMFA5401-94-86 19:18:264.5[facility] WayjkovZXKYPDOEJIUO8097-54-60 19:18:54923Qpjbyrte AamphpjDREPITITVDDO1908-22-55 19:18:2615[facility] [place] PKUYHSDHUKKP9346-23-30 19:18:260.80[facility] QtxqmmjMVBBJGAHRKPS5096-71-62 19:18:2692[facility] CymhnkfKIWAHKMQVV5037-78-51 19:18:260.7[facility] [place] GPASGDTGUU4032-29-97 19:18:260.7[facility] GzvttrsKNHYHUDCXQ1350-35-68 19:18:267.1 [facility] QjcerkcOIUFWQJEKN4901-64-73 19:18:260.1[facility]annHEMATOLOGY 2017-08-24 19:18:260.1[facility] XdxvzvnEYJZRNGLYW2451-35-88 19:18:264.4[facility] ItyagseYMPCBEHHMY4018-30-48 19:18:2657.1[facility] VryhfbmCODOTZAGXA3726-21-50 19:18:2635.6[facility] DtyluryFCVBLASLPP8724-41-50 19:18:265.6[facility] [place] XWHVEHOIKU9831-91-64 19:18:261.0[facility] PdfjdytUUNKWQXJIG4266-39-55 19:18:26 Test Item Value Reference Range Interpretation Comments PT (test code = PT) 13.2 s 12.0-14.7 [facility] LbxcpufOHVDQZFQAQ6970-49-26 19:18:26 Test Item Value Reference Range Interpretation Comments INR (test code = INR) 1.00 1 0.85-1.17 [facility] HikeardQTSTIGIAHN9044-69-83 19:18:268.0[facility]annHEMATOLOG[facility] 2017-08-24 19:18:2633.4[facility] QzpzavyRIUUQSUUEI6529-83-47 19:18:2613.3[facility] CuuyjvzCGCJVWXJYB3258-26-05 19:18:26 Test Item Value Reference Range Interpretation Comments MCH (test code = MCH) 31.0 pg 27.0-31.0 [facility] AvchzmbZVSBEPCYAC6295-34-63 19:18:97369Hzedlxxh HermannHEMATOLOGY 2017-08-24 19:18:2640.1[facility] IdmjkaoAIEUJJERXF1935-18-13 19:18:2613.4[facility] QzwcchfZHYOWSMUWV5117-15-72 19:18:2692.8[facility] WpsucwgWFSRMEUGZJ5201-89-19 19:18:2612.4[facility] AipoymkZARJJWVWWE9194-79-84 19:18:264.32[facility] OWBJAYZVNF7732-33-22 19:18:26 Test Item Value Reference Range Interpretation Comments PTT (test code = PTT) 25.6 s 22.9-35.8 [facility]CHE[facility] ECDHY3059-67-26 04:36:0089[facility]annCHEM PANEL 2016-06-20 04:36:0015.2[facility]annCHE[facility] XLIDQ1095-02-18 04:36:008.7[facility]annCHE[facility] EEEIV0036-70-29 04:36:000.71[facility]annCHE[facility] WUCJN7097-04-47 04:36:004.2[facility]annCHE[facility] LJJJG4350-36-15 04:36:12862Yrtjweis HermannCHEM XDFQQ5301-18-11 04:36:0025[facility]annCHE[facility] BVFTJ7175-91-21 04:36:99900 [facility] HJMQK1047-92-94 04:36:57448Efshqxtr HermannCHEM PANEL 2016-06-20 04:36:0013[facility]annCHEM KSCOQ3143-22-14 04:36:002.1[facility]annCHEM XCTWQ5538-74-95 04:36:003.3[facility] RezlpviEQBNQDARXY9721-00-55 04:36:004.34[facility] FkndajxEGISBJSXLE8542-32-57 04:36:009.5[facility] LFNIAMBLNN5179-53-24 04:36:0013.4[facility] LuobowbFSQTLLHBXG6245-58-69 04:36:00 33.8[facility] TsijpqlHORPUQCXWJ9443-01-02 04:36:00 Test Item Value Reference Range Interpretation Comments MCH (test code = MCH) 30.8 pg 27.0-31.0 [facility] OevxsluWQNMSWRURW7445-08-48 04:36:0013.2[facility]annHEMATOLOGY 2016-06-20 04:36:0091.0[facility] SneuisaRRXKFYUWFS4266-49-61 04:36:0039.5[facility] IgbyyjxOVTFGEESAW3359-84-17 04:36:12144Yzqeorzl TdmsxfcITJKGHXSHH8644-14-74 04:36:008.0[facility] JthtfndXFCCAJQHJM6031-22-99 04:36:0077.7[facility] HRNRUREPJU2677-72-73 04:36:0019.0[facility] SqppiyfCVMGMNIKID7144-18-69 04:36:00 0.3[facility] FxpcmzoRXJQODRWJE3371-77-13 04:36:001.8[facility]annHEMATOLOGY 2016-06-20 04:36:003.1[facility] GingrujRAWGNXVNCW6221-57-90 04:36:000.2[facility] FndaxpeBTTZVKQOII4237-73-00 04:36:007.4[facility] HermannPARATHYROID PROFILE 2016-06-20 04:36:001.10[facility]annPARATHYROID PWNROQS5967-83-62 04:36:00 1.10[facility] HermannBACTERIAL - YYOGCFCQ8171-68-45 20:52:00Negative (06/19/16 3:52 PM)[facility] JmihmtbZQKEVEBXCO1868-83-86 12:54:00 Test Item Value Reference Range Interpretation Comments PTT (test code = PTT) 27.8 s 22.9-35.8 [facility] XwrmjotJLNWPKVBVV2079-21-85 12:54:00 Test Item Value Reference Range Interpretation Comments PT (test code = PT) 14.0 s 12.0-14.7 [facility] VkmmdmfHTMZRWOXMX6647-18-88 12:54:001.06[facility] HermannHEMATOLOGY 2016-06-19 12:54:31289Idpgnbhw LezfmbbLBHJPULMJM3291-94-46 12:54:74112Vffggtyx HmmguguNLRQIGIWSQRD6757-27-50 11:51:004.2[facility] GctcloqVPFAYLFLZUKF3605-41-70 11:51:000.61[facility] ZfwreyfFDTVQICJGZYU4965-01-62 11:51:24734Susmxdmg Kain WNHNYQSHTNVB4745-62-41 11:51:0095[facility] RzlgzehSVMIHMQTPUEY2474-86-73 11:51:00 103[facility] PrsuylsZHQVZSPBPVKY7287-92-93 11:51:0026[facility] HermannELECTROLYTES 2016-06-19 11:51:009.2[facility] XfebtecWVPHLMOXHHDI8843-64-89 11:51:0014.2 [facility] MkqjjxuWLMAVCFLGRHE6278-57-71 11:51:0020[facility] HermannELECTROLYTES 2016-06-19 11:51:38786Zyxnzeib VkuoozePMOEMNHHPA6682-03-00 11:51:41674Lzzkeetq UcpacqaPUSNWIYLGJ6894-19-12 11:51:0012.3[facility] OlwhqtbSTIMDLGZEH6448-89-98 11:51:0033.1[facility] XqwjgisZUPJASOPVW4582-23-47 11:51:007.9[facility] XXUMSSFBLH4475-80-77 11:51:0040.4[facility] VipftuiHLEANDBDYA6904-89-34 11:51:00 13.4[facility] CwmitybEIDZOODAZZ3272-97-06 11:51:0010.0[facility] HermannHEMATOLOGY 2016-06-19 11:51:004.43[facility] ZvtndxbGSGQDBOCAW3513-50-26 11:51:0091.1[facility] GssgwrqEKQAROLOZE1004-60-96 11:51:00 Test Item Value Reference Range Interpretation Comments MCH (test code = MCH) 30.2 pg 27.0-31.0 [facility] IajzvppWSNNPMMLIG4775-09-17 11:51:000.1[facility] HermannHEMATOLOGY 2016-06-19 11:51:000.0[facility] DzziqqpSINSAXUACI1065-72-11 11:51:000.0[facility] TafaidaDDAUNRMEZQ1797-12-19 11:51:001.2[facility] RkeqjfnPXKMESYIPA0017-72-69 11:51:000.4[facility] IiupgkfWCBASBBCLN3370-89-48 11:51:004.7[facility] QLNFEWWMKS0744-60-04 11:51:004.8[facility] RdmjnklMRZXSSFPWE9227-04-18 11:51:00 47.6[facility] UtzoubuSXUXOOZWCP2181-44-86 11:51:0046.9[facility] HermannHEMATOLOGY 2016-06-19 11:51:004.3[facility]annUR[facility] AND BGVZZ6857-68-69 22:55:001 [facility] FGOYV5281-43-01 22:55:00<1[facility] DMCOX8899-84-26 22:55:00Clear (03/23/16 4:55 PM)[facility] STOOL 2016-03-23 22:55:001.011[facility] HWVPL1831-64-32 22:55:006.0 [facility] FYKFD8974-33-31 22:55:00Yellow *NA*(03/23/16 4:55 PM) [facility] NAXKL6430-48-74 22:55:00Negative *NA*(03/23/16 4:55 PM) [facility] SJJNL9144-82-67 22:55:00Negative (03/23/16 4:55 PM) [facility] GFPBY1667-03-88 22:55:00Negative (03/23/16 4:55 PM) [facility] QBBXT4653-02-00 22:55:00Negative (03/23/16 4:55 PM) [facility] HermannCHEM CCKRX5505-72-20 12:16:0021[facility] HermannCHEM PANEL 2016-03-22 12:16:0015.2[facility] HermannCHEM VUNQD6366-34-73 12:16:004.0[facility] HermannCHEM MWMYA8387-68-04 12:16:000.8[facility] HermannCHEM RAAJU7760-20-67 12:16:0076[facility]annCHEM SZPLI4470-61-08 12:16:000.3[facility] HermannCHEM FIARZ1974-91-78 12:16:0028[facility] HermannCHEM GSRKS1753-35-98 12:16:009.2 [facility]annCHEM XVEOK8175-38-57 12:16:003.1[facility] HermannCHEM PANEL 2016-03-22 12:16:004.2[facility] HermannCHEM QEGID2101-06-18 12:16:0097[facility] HermannCHEM YRJBF5247-71-68 12:16:007.1[facility] HermannCHEM MACJB7108-44-96 12:16:0034[facility] HermannCHEM XKRMT3291-54-22 12:16:0059[facility] HermannCHEM IOMQE3987-03-26 12:16:0086[facility] HermannCHEM ZKYRT7324-35-03 12:16:13673 [facility]annCHEM BAYNM7392-08-66 12:16:14119Jtgdanxc HermannCHEM PANEL 2016-03-22 12:16:0017[facility] HermannCHEM GQOTV8631-48-89 12:16:000.82[facility] QrlryisNLUBOEBBXH5980-12-43 12:16:004.2[facility] JktmfquQWIYDEUUDB5196-69-65 12:16:002.5[facility] JuiqzbnFGJRXQRLFA6164-11-87 12:16:000.6[facility] PFSBCFEGOV4251-83-10 12:16:002.1[facility] QgohcorXTGLYWIXAS7354-64-30 12:16:000.6 [facility] TysprypENODZVJFWK4548-11-50 12:16:000.2[facility] HermannHEMATOLOGY 2016-03-22 12:16:007.5[facility] CazwoqtSYTLDRVQFZ9440-84-13 12:16:0056.8[facility] HcfjtxoQFIRCJUGFZ5987-38-69 12:16:0033.0[facility] HqjyzmqYTMAYDXYEL9539-28-10 12:16:00 Test Item Value Reference Range Interpretation Comments MCH (test code = MCH) 32.0 pg 27.0-31.0 [facility] BatwozwKYEAYWAAAU1392-71-46 12:16:0033.7[facility] HermannHEMATOLOGY 2016-03-22 12:16:007.4[facility] RipbwjuRYQUDUFZVV6024-20-92 12:16:0014.3[facility] FkucvngDXKQQCUZKT6588-33-87 12:16:73313Yuuforhz XrxwbupSXFLUPLSVF2963-55-16 12:16:0095.0[facility] NxuyxvoJWEJIZQBUA5234-41-83 12:16:0036.1[facility] NSTYJHKDUW0168-99-29 12:16:0012.2[facility] WamziejOJJNQBSMAM4501-57-57 12:16:00 3.80[facility] VzdvbohGXUURYWZXR7095-34-81 12:16:007.5[facility] HermannCHEM PANEL 2016-03-20 10:34:0025[facility] HermannCHEM JXCEJ3419-39-19 10:34:0015.1[facility] HermannCHEM WTKJM2758-07-67 10:34:004.6[facility] HermannCHEM EVNNQ1862-43-15 10:34:000.7[facility] HermannCHEM FHROI0137-65-81 10:34:0086[facility] HermannCHEM WAKTH8962-21-45 10:34:000.4[facility] HermannCHEM QZVPC1185-58-68 10:34:0093 [facility]annCHEM FKBXS7403-17-68 10:34:0074[facility] HermannCHEM PANEL 2016-03-20 10:34:0032[facility] HermannCHEM NSOGK6171-40-20 10:34:003.4[facility] HermannCHEM FNHBQ7189-83-93 10:34:008.0[facility] HermannCHEM PVSZR1214-41-64 10:34:0098[facility] HermannCHEM JVDJM8374-68-19 10:34:0027[facility] HermannCHEM WUPEX7358-44-09 10:34:009.6[facility] HermannCHEM KJTET3499-60-46 10:34:000.68 [facility]annCHEM EKVCQ8873-05-94 10:34:52163Jaqizkox HermannCHEM PANEL 2016-03-20 10:34:004.1[facility] HermannCHEM TUYPQ4926-33-10 10:34:61095Envylbtb HermannCHEM SUCMM5909-65-85 10:34:0017[facility] CbryltoARJFWYQYSE3459-32-25 10:34:006.1[facility] CefaehxAYEBZXKWFJ4667-04-38 10:34:002.1[facility] ABKSUAXCUZ2330-42-78 10:34:0028.0[facility] DhkcnznCCJDDXNZKJ1335-94-24 10:34:00 0.2[facility] GokluewHDOEWRZMIQ0545-16-19 10:34:000.1[facility] HermannHEMATOLOGY 2016-03-20 10:34:0063.1[facility] FcypgweVYRBQSIFNN2393-46-45 10:34:002.4[facility] UkwrxrkEUVRVODYTU7927-12-68 10:34:000.5[facility] RrbpxtsJUIXYXDXLI8897-02-29 10:34:000.7[facility] WowvpdpHWCPZDVGXF3366-94-00 10:34:005.3[facility] FDKXEDTJOJ4270-06-56 10:34:04131Aymftror LebdytxRISHEEVDLP9870-95-42 10:34:008.4 [facility] PxoxxgfZGTOUXGEYW1560-60-28 10:34:0094.9[facility] HermannHEMATOLOGY 2016-03-20 10:34:0037.1[facility] GseqcyzABCBHAEFOS9318-20-92 10:34:0012.6[facility] PxehoqgUSKKDLQWQX2630-11-50 10:34:008.5[facility] GvivnuaQEUWGOJSRI7567-52-34 10:34:003.90[facility] BnivfctQNOZVXVSTI7497-44-83 10:34:0014.4[facility] GFRVKGHGVY8182-58-55 10:34:00 Test Item Value Reference Range Interpretation Comments MCH (test code = MCH) 32.2 pg 27.0-31.0 [facility] BshhrhlFLPKJDBCVO1799-13-26 10:34:0033.9[facility] HermannCHEM PANEL 2016-03-18 10:48:0093[facility] HermannCHEM VGFZT2658-11-24 10:48:96059Gxdnpppm HermannCHEM CJTUG0448-79-57 10:48:0018[facility] HermannCHEM KAQZF0504-56-28 10:48:0078[facility] HermannCHEM PDMHK5024-92-64 10:48:0035[facility] HermannCHEM MQMML2713-60-19 10:48:0074[facility] HermannCHEM DHXMS4202-38-95 10:48:000.67 [facility]annCHEM EWVFO3660-58-76 10:48:0099[facility] HermannCHEM PANEL 2016-03-18 10:48:003.9[facility] HermannCHEM BKVTL9666-99-49 10:48:95058Dfwcgbah HermannCHEM YBNZR5501-10-09 10:48:007.2[facility] HermannCHEM LKOFH7413-29-99 10:48:009.1[facility] HermannCHEM APCHE7663-64-93 10:48:0027[facility] HermannCHEM MQULC8482-49-89 10:48:003.1[facility] HermannCHEM RYCXV6212-25-93 10:48:000.3 [facility] HermannCHEM OLUPJ1776-63-06 10:48:000.8[facility] HermannCHEM PANEL 2016-03-18 10:48:004.1[facility] HermannCHEM KXNZO7422-36-71 10:48:0027[facility] HermannCHEM TNQUE8872-17-55 10:48:0013.9[facility] OkryqzqGFTMRZDEXS5077-84-86 10:48:01438Lbxrlcgf FdwregmKIDAGPOFTC2211-57-41 10:48:00 Test Item Value Reference Range Interpretation Comments MCH (test code = MCH) 32.4 pg 27.0-31.0 [facility] RerdjpaIEEOJEECCJ1834-34-73 10:48:008.1[facility] HermannHEMATOLOGY 2016-03-18 10:48:0033.9[facility] PrihvxaKRKLDJYUDZ0334-79-42 10:48:0014.3[facility] PpxzjfiYBWJBCEDJA2614-52-23 10:48:0011.8[facility] EiyahscNWXBHNHONS5253-04-51 10:48:008.3[facility] GzernklJQGUZHFQHK7659-14-25 10:48:0034.6[facility] ZULRALWCLE5021-83-32 10:48:0095.3[facility] NtrofqwDZYLMPWZFQ7786-37-23 10:48:00 3.63[facility] RkigjtjWOOPRTKISC9460-32-22 10:48:000.2[facility] HermannHEMATOLOGY 2016-03-18 10:48:000.5[facility] ZdrtbzuFMGDJPNNQX1960-07-56 10:48:002.6[facility] UznbjxrBKPHCDSENZ4180-94-60 10:48:000.1[facility] MqtqpvqYYCVJMABDI4698-25-27 10:48:001.0[facility] LgqylnmYJWBGFTJKG1822-72-57 10:48:002.0[facility] YEUWEWGOCY2549-46-28 10:48:006.2[facility] InktijqHBOWCEFDJV1924-04-99 10:48:00 59.4[facility] DgzreejVYWCQEZIFN9272-15-43 10:48:0031.4[facility] HermannHEMATOLOGY 2016-03-18 10:48:004.9[facility] XajzlimZVNUHULQZG2237-50-64 11:38:000.1[facility]UR[facility] AND MZIKY9894-17-46 06:37:00Negative (03/14/16 12:37 AM)[facility] MGOKB3638-55-14 06:37:00Negative *NA*(03/14/16 12:37 AM)[facility] HWSHH4173-19-80 06:37:00Negative (03/14/16 12:37 AM)[facility] JNDFR7516-21-49 06:37:004.0[facility] STOOL 2016-03-14 06:37:001[facility] HNIUK3030-98-89 06:37:00>182 [facility] CCJUA2275-18-17 06:37:00Large *ABN*(03/14/16 12:37 AM) [facility] YQWAF9819-16-96 06:37:00Yellow *NA*(03/14/16 12:37 AM) [facility] FCHKW9031-98-58 06:37:00Slight *ABN*(03/14/16 12:37 AM) [facility] UQHHI5040-97-51 06:37:001.016[facility] BUPRK2391-21-86 06:37:005.5[facility] HermannCHEM VYULA9869-19-51 10:47:004.1 [facility]annCHEM PEKAT0470-12-00 10:47:002.4[facility] HermannIMMUNOLOGY 2016-03-12 10:47:0027.4[facility] HermannCHEM KAEGG4921-44-95 10:54:004.0[facility] HermannCHEM ZVZYK8315-03-62 10:54:002.4[facility] MlnapfaOXJVYHLYTQWV8993-70-70 10:54:0014.1[facility] EcpuajjPUYQQGABONXT7819-69-12 10:54:0097[facility] RORQHAIREJAE3903-25-20 10:54:0020[facility] PjocvhvIKCLHTNADUFZ2598-94-20 10:54:00 0.59[facility] EpyfzhaEPQUJGKGNIJR4342-29-20 10:54:36330Gnmonqqx K[facility] INGWDTAFIKOO5540-84-95 10:54:004.1[facility] HaucakePOFOQUAZZYIT3355-42-26 10:54:0023[facility] UkkciusDDPLWSFVJSKF6617-11-71 10:54:82360Pccrzkbo Kain FLBJJXQQCBLR8977-13-87 10:54:008.6[facility] InepkoiAZIZDGWFRKYW8855-62-12 10:54:0095[facility] RavqxnvVLLBORIABH3823-71-60 10:54:003.3[facility] BECZZMLMNJ7807-32-22 10:54:009.6[facility] JlbcgnaYKDZZLQCWW6039-25-51 10:54:00 67.9[facility] LfhmbteSWDLCCXHZJ0631-85-50 10:54:0023.3[facility] HermannHEMATOLOGY 2016-03-11 10:54:006.4[facility] AdockncKXRJTGCUZT9626-23-42 10:54:001.4[facility] HthftrqEEYLNCMAZC7639-21-18 10:54:001.0[facility] RxnbbbtFHLVMVWLMY0701-33-76 10:54:000.2[facility] LmjyrhbUZNUTJJEAT8303-55-89 10:54:000.1[facility] ASNXFEJKAF1443-06-00 10:54:000.9[facility] ZoetciwCBSHCYQNLY9491-24-34 10:54:008.3 [facility] FzwfwtnYESONTITKR3951-34-62 10:54:00 Test Item Value Reference Range Interpretation Comments MCH (test code = MCH) 32.2 pg 27.0-31.0 [facility] ZinedktTQAODZJUOZ7113-41-10 10:54:0094.2[facility] HermannHEMATOLOGY 2016-03-11 10:54:01098Cbukoslm GijjfnbLSUFABOYUJ0145-30-06 10:54:0034.2[facility] LjzteucKHGCUMIHDK8531-54-98 10:54:0014.3[facility] QhfkluiBCQBGLDVFJ5775-47-10 10:54:0033.8[facility] QtnoivmQGDOMZEJVE7298-94-53 10:54:0014.1[facility] IPBUNXGNQP6426-26-32 10:54:0011.5[facility] DmicykhVUTJIKZNJA5147-34-97 10:54:00 3.59[facility] HermannPARATHYROID CPUQLAG3115-48-60 10:54:001.00[facility] PARATHYROID LMOHRWX0808-55-11 10:54:001.06[facility] HermannCHEM AUIIC4701-53-25 08:06:002.8[facility] HermannCHEM BIDJZ8577-82-81 08:06:0098[facility] HermannCHEM BFUIO4440-61-68 08:06:009.6[facility] HermannCHEM IMBEL3987-74-33 08:06:008.8 [facility]annCHEM WGYTZ7814-31-92 08:06:000.58[facility] HermannCHEM PANEL 2016-03-10 08:06:003.6[facility] HermannCHEM KGYTL8372-81-84 08:06:45754Wdkzrigu HermannCHEM OLKRS7848-96-61 08:06:0029[facility] HermannCHEM OMKHX6427-01-51 08:06:87698Prsdljcb HermannCHEM HQMDH2649-39-15 08:06:0085[facility] HermannCHEM RELXM2908-27-56 08:06:0020[facility] HermannCHEM XNBOD8977-77-86 08:06:004.2 [facility] YesvriuTTPPGIQNJS1388-24-52 08:06:0015.8[facility] HermannHEMATOLOGY 2016-03-10 08:06:003.55[facility] BjdvukyWGWKSZUVHB4989-68-23 08:06:0013.5[facility] MjyfrmiWWOTPPIWSZ0223-58-03 08:06:32075Kwhhshxb TptxlnzNAWOPPFWZJ0542-41-54 08:06:008.7[facility] SpzphetZGKAMBLKHQ6601-58-86 08:06:0011.1[facility] HBRNWEECFI7897-17-45 08:06:0033.9[facility] ZafdklfMPNZWAWPVE6566-17-29 08:06:00 95.6[facility] MhkehvwAQEGLWBNTY1350-25-13 08:06:00 Test Item Value Reference Range Interpretation Comments MCH (test code = MCH) 31.3 pg 27.0-31.0 [facility] CkaquhaXYECDJCFHF2599-32-41 08:06:0032.7[facility] HermannHEMATOLOGY 2016-03-10 08:06:000.2[facility] PggbmizVOLEGPDPSR2676-29-48 08:06:001.3[facility] CjjyhgqFDEEUFOIAX2373-49-59 08:06:000.2[facility] KzdlniwECAPIFBAUE9841-55-88 08:06:0010.3[facility] KepelutZKWYXDFHZZ8323-18-41 08:06:003.9[facility] QUFWWQKCAS1243-44-34 08:06:001.0[facility] WhlfkmhDGBQDLFIIH1418-95-21 08:06:001.1 [facility] MntkvzcPFVNOTIBJC9846-31-94 08:06:0064.9[facility] HermannHEMATOLOGY 2016-03-10 08:06:008.2[facility] YyvxwuiCNMQHUPQMV7683-66-77 08:06:0024.8[facility] HermannPARATHYROID ZIXIFVS7427-91-70 08:06:001.11[facility] HermannPARATHYROID ONYIHNL5320-97-24 08:06:001.14[facility] HzodwetPHWQJSSGKYUP6999-00-79 21:07:55532 [facility] HermannCHEM GVAQZ3569-74-37 08:56:002.3[facility] HermannCHEM PANEL 2016-03-09 08:56:003.4[facility] VjvfatpCVLZHNIZMHIU7617-41-07 08:56:0014.7 [facility] FevswaoFTDUBTTDOZTU8571-73-48 08:56:0099[facility] HermannELECTROLYTES 2016-03-09 08:56:0019[facility] IilftppAIZJVIUMPVSR1422-13-57 08:56:000.56[facility] JolvjmlMWGFRIVFJUFR9474-78-60 08:56:98458Pxriuywa NbdiiopGXDGUTNGWUNB0237-12-96 08:56:003.7[facility] HahkgcwFTRKZCBVZSHJ7144-09-58 08:56:12100Gjooeehn [place] LXGJTMUFWIBX8819-68-43 08:56:0023[facility] TytvoiiGHOVIKEOESRA4021-18-34 08:56:00 8.8[facility] YxnzlpuTAJZJDCCOU4834-06-68 08:56:0011.6[facility]annHEMATOLOGY 2016-03-09 08:56:001.1[facility] FbwvgzkBWFLRQNYOE5234-82-86 08:56:001.0[facility] TrzwibdGLALVKHYEJ1691-96-12 08:56:003.4[facility] NftggrpONTSJLRJFN4282-81-11 08:56:0070.0[facility] PtuankoOEAUMKEAZF5046-36-25 08:56:007.2[facility] YRZOWLVUMR7610-05-46 08:56:0020.7[facility] EfxzgcpPQIDFDVYCK6004-81-60 08:56:00 1.2[facility] SwlmlrkNXPIJQQPNQ7754-44-22 08:56:000.2[facility] HermannHEMATOLOGY 2016-03-09 08:56:000.2[facility] NpupwfwQRQYELVGTB1762-89-92 08:56:82648Aaiuqtph YyxyrkyYBMPWVBOCC9066-45-42 08:56:0013.7[facility] ScxjmieBJAMWUKTKG0529-23-05 08:56:008.1[facility] QsclkmjTSLQVHKJBX4195-32-40 08:56:00 Test Item Value Reference Range Interpretation Comments MCH (test code = MCH) 31.9 pg 27.0-31.0 [facility] UodfamqAOOONLLABV3223-10-69 08:56:0033.3[facility] HermannHEMATOLOGY 2016-03-09 08:56:0094.1[facility] DcptudrAEHLBFNQFG0905-14-24 08:56:0033.8[facility] BiwixwpVVMHZOMAVH8745-87-86 08:56:0016.6[facility] WiofslmAKEQIQIKMO9647-95-09 08:56:0011.3[facility] EmbwuhqRGGETNBIKH3733-42-61 08:56:003.54[facility] PARATHYROID WBZQHMD4139-87-89 08:56:001.06[facility] HermannPARATHYROID PROFILE 2016-03-09 08:56:001.02[facility]annBLOOD BANK XOFOWZS5686-15-40 06:29:00 Negative (03/08/16 12:29 AM)[facility] TlzecrhGQFVWLHKMY1895-88-81 06:20:00 Test Item Value Reference Range Interpretation Comments PTT (test code = PTT) 27.1 s 22.9-35.8 [facility] UphyhebTBTWZFTSXW9188-32-81 06:20:00 Test Item Value Reference Range Interpretation Comments PT (test code = PT) 14.3 s 12.0-14.7 [facility] ImuzuboIRIYDHZDDS1607-37-82 06:20:001.09[facility] HermannBODY FLUIDS 2016-03-07 22:52:0060[facility] HermannBODY PSJXUE4833-03-57 22:52:003.2[facility] HermannBODY TFKHDE5764-30-35 22:52:12496Jvyuiddl HermannBODY RZTWGC3184-60-79 22:52:0018[facility] HermannBODY RCOHRQ3911-59-46 22:52:0055[facility] HermannBODY RQPGEY2955-08-06 22:52:0027[facility] HermannBODY CPRBTK6495-03-38 22:52:2037882 [facility]annBODY APECRN3093-86-44 22:52:0069[facility] HermannBODY FLUIDS 2016-03-07 22:52:00Red *ABN*(03/07/16 4:52 PM)[facility]annBODY FLUIDS 2016-03-07 22:52:00Moderate *ABN*(03/07/16 4:52 PM)[facility] HermannBODY FLUIDS 2016-03-07 22:52:00 Test Item Value Reference Range Interpretation Comments Tube Num CSF (test code = Tube Num CSF) 1 1 [facility]annBODY VOPBMP9515-99-30 22:52:00Hemolyzed *ABN*(03/07/16 4:52 PM) [facility] IMWUG0090-91-53 22:52:00Negative (03/07/16 4:52 PM) [facility] SLXZQ3758-74-26 22:52:00Negative (03/07/16 4:52 PM) [facility] DEOPA9462-39-36 22:52:00Moderate *ABN*(03/07/16 4:52 PM)[facility] NYHOH0859-43-64 22:52:000.2[facility]UR[facility] AND PHDXC8283-82-16 22:52:00Negative *NA*(03/07/16 4:52 PM)[facility] BOTKQ7383-82-06 22:52:00Negative (03/07/16 4:52 PM)[facility] LBZSY7863-29-16 22:52:00Negative *NA*(03/07/16 4:52 PM)[facility] LAIJJ1896-77-02 22:52:00Negative (03/07/16 4:52 PM)[facility] QMZII6951-28-24 22:52:00Yellow *NA*(03/07/16 4:52 PM)[facility] VDCPS7423-40-06 22:52:00 Test Item Value Reference Range Interpretation Comments UA pH (test code = UA pH) 6.5 1 5.0-8.0 [facility] PQQEQ1766-75-80 22:52:00Slight Cloudy (03/07/16 4:52 PM)[facility] PQXPH3108-86-87 22:52:00 Test Item Value Reference Range Interpretation Comments UA Spec Grav (test code = UA Spec 1.010 1 Grav) [facility] JJFNN3177-06-77 22:52:0012[facility]UR[facility] AND WSAFX3905-16-02 22:52:007[facility] HermannBODY AXZPCW2800-04-14 22:02:98523 [facility] MKSWQB9772-71-82 22:02:0052[facility] FLUIDS 2016-03-05 22:02:0069[facility] FYQNIK3097-27-69 22:02:0021[facility] RTOHGN0384-32-73 22:02:0010[facility] JEXFCN4973-79-14 22:02:00xxxxxxx (03/05/16 4:02 PM)[facility] HPNKIM9392-88-43 22:02:00 Red *ABN*(03/05/16 4:02 PM)[facility] [id number] 22:02:00Marked *ABN*(03/05/16 4:02 PM)[facility] GYETYG1923-07-86 22:02:00Hemolyzed *ABN*(03/05/16 4:02 PM)[facility] HFVVCY3359-43-31 22:02:82969Ddxmcxxm HermannBODY CTCWRM8272-12-73 22:02:2843326Pqspdeha [facility] AND STOOL 2016-03-05 15:24:007[facility] HXEDK0373-03-20 15:24:00Not Indicated *NA*(03/05/16 9:24 AM)[facility] SGSLM5893-24-93 15:24:00Negative (03/05/16 9:24 AM)[facility] KDUWW9448-57-05 15:24:001[facility] GDPJU9719-23-25 15:24:00Negative (03/05/16 9:24 AM)[facility] KUUMG9802-57-97 15:24:00Clear (03/05/16 9:24 AM)[facility] KKVDP9044-38-77 15:24:001.011[facility] LONKB4670-61-97 15:24:00Negative *NA*(03/05/16 9:24 AM)[facility] IBAPM7366-28-80 15:24:00Yellow *NA*(03/05/16 9:24 AM)[facility] [id number] 15:24:00Negative (03/05/16 9:24 AM)[facility] PEJWE0456-67-94 15:24:007.0[facility]annBLOOD BANK IYXKCHF0755-78-62 06:31:00 Negative (03/04/16 12:31 AM)[facility] GenziirFLAUHAGUNA9482-10-66 06:31:00 Test Item Value Reference Range Interpretation Comments PTT (test code = PTT) 28.1 s 22.9-35.8 [facility] OoamspoSJQPKDTMUX7710-99-16 06:31:00 Test Item Value Reference Range Interpretation Comments PT (test code = PT) 14.5 s 12.0-14.7 [facility] RweryfaELBSZWJNUH5491-93-65 06:31:001.11[facility]ann[facility] FLUIDS 2016-03-01 21:14:0087[facility] PBRBNW9177-70-28 21:14:002.7[facility] QLMMPQ1512-30-75 21:14:0078[facility] HPNIPT2089-49-42 21:14:0013[facility] EALIZS3603-19-59 21:14:0013[facility] LSVUNO3231-18-66 21:14:0074[facility] ZKZHKW8792-88-43 21:14:04016 [facility] LCMYST5881-92-30 21:14:1985368Htahnfdx HermannBODY FLUIDS 2016-03-01 21:14:00Marked *ABN*(03/01/16 3:14 PM)[facility] FLUIDS 2016-03-01 21:14:00Hemolyzed *ABN*(03/01/16 3:14 PM)[facility] FLUIDS 2016-03-01 21:14:00Red *ABN*(03/01/16 3:14 PM)[facility] FLUIDS 2016-03-01 21:14:00xxxxxxx (03/01/16 3:14 PM)[facility] STOOL 2016-02-29 17:57:00Negative (02/29/16 11:57 AM)[facility] STOOL 2016-02-29 17:57:002[facility] NGVVE5372-67-69 17:57:002[facility] UXFSZ9632-06-31 17:57:00Negative (02/29/16 11:57 AM)[facility] BHKUN8564-95-13 17:57:00Negative (02/29/16 11:57 AM)[facility] PCRQS0566-12-38 17:57:001[facility] STOOL 2016-02-29 17:57:001.016[facility] GMARQ1385-69-73 17:57:005.5 [facility] MYLAA7120-88-89 17:57:00Slight *ABN*(02/29/16 11:57 AM) [facility] SDOJY3606-64-59 17:57:00Negative *NA*(02/29/16 11:57 AM)[facility] ENTLS6055-62-24 17:57:00Yellow *NA*(02/29/16 11:57 AM)[facility]annCARDIAC VNIWHWS6692-29-24 06:37:00<0.02[facility] BACTERIAL - EITNYHLD2893-72-48 14:34:00Negative (02/27/16 8:34 AM)[facility]annDRUG MHRXVC9433-88-59 06:41:00Negative *NA*(02/27/16 12:41 AM)[facility]annDR[facility] GWYRFJ2512-12-45 06:41:00Negative *NA*(02/27/16 12:41 AM)[facility]annDR[facility] KANAOJ4514-82-72 06:41:00Negative *NA*(02/27/16 12:41 AM)[facility]DR[facility] XLEHQI7368-62-85 06:41:00Negative *NA*(02/27/16 12:41 AM)[facility]annDR[facility] IJCRWR5163-51-97 06:41:00Negative *NA*(02/27/16 12:41 AM)[facility]annDR[facility] NSLPAF2337-70-68 06:41:00Negative *NA*(02/27/16 12:41 AM)[facility]annDR[facility] GMJBRL8438-70-48 06:41:00Negative *NA*(02/27/16 12:41 AM)[facility]annDR[facility] VYZVCX6600-52-86 06:41:00Negative *NA*(02/27/16 12:41 AM)[facility]annDR[facility] ABPZBG6264-98-46 06:41:00Negative *NA*(02/27/16 12:41 AM)[facility]annDR[facility] HWVOTZ5389-77-69 06:41:00See Note *NA*(02/27/16 12:41 AM)[facility] HrukvslBPZYNZVSOG0018-47-27 06:40:00 Test Item Value Reference Range Interpretation Comments Angle (test code = Angle) 74.3 degrees 53.0-72.0 [facility] EwhyialJPNRIXIOPC6548-27-05 06:40:00 Test Item Value Reference Range Interpretation Comments Max Amp (test code = Max Amp) 69.2 mm 50.0-70.0 [facility] PncylgbMDKFWYSQSY3938-11-03 06:40:003.5[facility] HermannHEMATOLOGY 2016-02-27 06:40:0011.3[facility] KxdgooaZWMIYEODOO1226-12-99 06:40:000.8[facility] LyaoopdJCKYTDYRHD8970-77-28 06:40:00See Note (02/27/16 12:40 AM)[facility] BAQTPOKBEX7971-00-13 06:40:00 Test Item Value Reference Range Interpretation Comments R-time (test code = R-time) 3.8 min 5.0-10.0 [facility] ZitawaeCPOYGIZPHQ8047-19-14 06:40:00 Test Item Value Reference Range Interpretation Comments K-time (test code = K-time) 0.9 min 1.0-3.0 [facility] XxlvglrWOVCESSJHJ5947-33-03 06:40:001.23[facility]annHEMATOLOGY 2016-02-27 06:40:00 Test Item Value Reference Range Interpretation Comments PT (test code = PT) 15.8 s 12.0-14.7 [facility]xRSXRIWKELV5835-[facility]-34 06:40:00 Test Item Value Reference Range Interpretation Comments PTT (test code = PTT) 25.3 s 22.9-35.8 [facility] LDEPKIAUE5612-70-74 06:40:008.9[facility] TTQHPPKZMQ8570-69-33 14:51:00 Test Item Value Reference Range Interpretation Comments POC Activated Clotting Time (test code 154 s = POC Activated Clotting Time) [facility] FSOTKYY7250-31-13 09:00:00Negative (02/26/16 3:00 AM) [facility] HermannCHEM NFVNY8878-08-65 08:56:510.4[facility] HermannCHEM PANEL 2016-02-26 08:56:5181[facility] HermannCHEM AIWIN9733-23-10 08:56:5145[facility] HermannCHEM DMUME3063-87-58 08:56:517.8[facility] HermannCHEM ZRWWV2274-49-20 08:56:513.7[facility] HermannCHEM YKOTT7306-37-26 08:56:5152[facility] HermannCHEM XDSQG9200-54-20 08:56:510.9[facility] HermannCHEM FULED6488-69-31 08:56:514.1 [facility]annCHEM VULHP0340-39-81 08:56:5127[facility]annHEMATOLOGY 2016-02-26 08:56:5110.5[facility] BnrxhwjDBKUPHODYA1859-02-30 08:56:51 Test Item Value Reference Range Interpretation Comments Max Amplitude Rapid (test code = Max 68 mm 52-71 Amplitude Rapid) [facility] HospitalBnnuoehNZUEWXALWA1103-66-29 08:56:51 Test Item Value Reference Range Interpretation Comments K-time Rapid (test code = K-time 1.1 min 0.6-2.3 Rapid) [id number] 08:56:51 Test Item Value Reference Range Interpretation Comments Angle Rapid (test code = Angle 76 degrees 64-80 Rapid) [id number] 08:56:51 Test Item Value Reference Range Interpretation Comments Split Point Rapid (test code = Split 0.6 min Point Rapid) [facility] [id number] 08:56:51 Test Item Value Reference Range Interpretation Comments R-time Rapid (test code = R-time 0.8 min 0.4-0.7 Rapid) [facility] [id number] 08:56:51 Test Item Value Reference Range Interpretation Comments ACT (TEG) Rapid (test code = ACT (TEG) 121 s 86-118 Rapid) [facility] [id number] 08:56:510.6[facility]
[2020-08-22 14:29] LABS: Urine Blood 1+ (Negative); Urine Glucose 3+ (Negative); Urine Protein Negative (Negative); Urine Specific Gravity 1.025 (1.005-1.030); Urine pH 5.5 (5.0-7.0)
--- NOTE | 2020-08-22 15:23 | EDPHYS ---
Physician Documentation [facility] Name: Lorri Dotson Age: 70 yrs Sex: Female : 1950 Arrival Date: 08/22/2020 Time: 14:09 Bed 5 Private MD: ED Physician Attila Whittington HPI: 08/22 14:45 This 70 yrs old Female presents to ER via Ambulatory with complaints of Pain cp With Urination, Fever. 14:45 The patient presents with urinary symptoms, dysuria, vaginal itching and burning. cp 14:45 Onset: The symptoms/episode began/occurred 3 day(s) ago. Associated signs and symptoms: cp Pertinent negatives: constipation, diarrhea, fever, vaginal bleeding. Severity of symptoms: in the emergency department the symptoms are unchanged, despite home interventions. Historical: - Allergies: 14:23 No Known Allergies; ss - Home Meds: 14:23 aspirin 81 mg Oral chew 1 tab once daily [Active]; atorvastatin 20 mg Oral tab 1 tab ss once daily [Active]; glimepiride 4 mg Oral tab 1 tab once daily [Active]; lisinopril 20 mg Oral tab 1 tab once daily [Active]; lovastatin 10 mg Oral tab 1 tab once daily [Active]; metformin 1,000 mg Oral tab 2 times per day [Active]; Pepcid 20 mg Oral tab 1 tab once daily [Active]; Plavix 75 mg Oral tab 1 tab once daily [Active]; - PMHx: 14:23 Brain bleed; Diabetes - NIDDM; High Cholesterol; Hypertension; TIA; ss - Immunization history:: Adult Immunizations up to date. - Social history:: Smoking status: Patient denies any tobacco usage or history of. ROS: 14:50 Constitutional: Negative for body aches, chills, fever, poor PO intake. cp 14:50 Eyes: Negative for injury, pain, redness, and discharge. cp 14:50 ENT: Negative for ear pain, sore throat, difficulty swallowing, difficulty handling secretions. 14:50 Cardiovascular: Negative for chest pain. 14:50 Respiratory: Negative for cough, shortness of breath, wheezing. 14:50 Abdomen/GI: Negative for abdominal pain, nausea, vomiting, and diarrhea. 14:50 Back: Negative for pain at rest, pain with movement. 14:50 : Positive for pelvic pain, burning with urination, vaginal itching. 14:50 Neuro: Negative for altered mental status, headache, weakness. 14:50 All other systems are negative. Exam: 14:55 Constitutional: The patient appears in no acute distress, alert, awake, non-toxic, well cp developed, well nourished. 14:55 Head/Face: Normocephalic, atraumatic. cp 14:55 Chest/axilla: Inspection: normal. 14:55 Cardiovascular: Rate: normal. 14:55 Respiratory: the patient does not display signs of respiratory distress, Respirations: normal, no use of accessory muscles, no retractions. 14:55 Abdomen/GI: Exam negative for discomfort, distension, guarding, Inspection: abdomen appears normal. 14:55 Back: pain, is absent, ROM is normal. 14:55 Skin: no rash present. 14:55 Neuro: Orientation: to person, place \T\ time. Mentation: is normal, Motor: moves all fours, strength is normal. Vital Signs: 14:21 BP 141 / 79; Pulse 92; Resp 16; Temp 97.6(TE); Pulse Ox 98% on R/A; Weight 77.11 kg; ss Height 5 ft. 4 in. (162.56 cm); Pain 8/10; 14:21 Body Mass Index 29.18 (77.11 kg, 162.56 cm) ss MDM: 14:26 Patient medically screened. cp 15:00 Differential diagnosis: shireen infection, urinary tract infection, vaginosis. cp 15:21 Data reviewed: vital signs, nurses notes, lab test result(s). cp 15:21 Counseling: I had a detailed discussion with the patient and/or guardian regarding: the cp historical points, exam findings, and any diagnostic results supporting the discharge/admit diagnosis, lab results, to return to the emergency department if symptoms worsen or persist or if there are any questions or concerns that arise at home. 08/22 14:26 Order name: Urine Microscopic Only; Complete Time: 15:41 cp 08/22 15:41 Interpretation: Normal except: UWBC 20-50; URBC 5-10; UBACT >50. cp 08/22 14:29 Order name: Urine Dipstick-Ancillary; Complete Time: 15:11 EDMS 08/22 15:11 Interpretation: Normal except: UGLUC 3+; UKET Trace; UBLD 1+; UESTR 1+. cp 08/22 14:26 Order name: Urine Dipstick-Ancillary (obtain specimen); Complete Time: 14:27 cp 08/22 15:41 Order name: Urine Culture EDMS Administered Medications: No medications were administered Disposition: 18:40 Co-signature as Attending Physician, Attila Whittington MD. rn Disposition Summary: 08/22/20 15:22 Discharge Ordered Location: Home cp Problem: new cp Symptoms: are unchanged cp Condition: Stable cp Diagnosis - UTI/ Urinary tract infection, site not specified cp Followup: cp - With: Private Physician - When: 2 - 3 days - Reason: Worsening of condition Discharge Instructions: - Discharge Summary Sheet cp - Urinary Tract Infection, Adult cp Forms: - Medication Reconciliation Form cp - Thank You Letter cp - Antibiotic Education cp - Prescription Opioid Use cp Prescriptions: - Cipro 250 mg Oral Tablet - take 1 tablet by ORAL route every 12 hours for 7 days; 14 tablet; Refills: 0, cp Product Selection Permitted - Diflucan 150 mg Oral Tablet - take 1 tablet by ORAL route one time for 1 day; 1 tablet; Refills: 0, Product cp Selection Permitted Signatures: Dispatcher [employer] EDMS Attila Whittington MD MD rn Smirch, Shelby, RN RN ss Page, Corey, ALEJANDRINA PA cp
--- NOTE | 2020-08-22 15:23 | ER ---
Nurse's Notes [facility] Name: Lorri Dotson Age: 70 yrs Sex: Female : 1950 Arrival Date: 08/22/2020 Time: 14:09 Bed 5 Private MD: Diagnosis: UTI/ Urinary tract infection, site not specified Presentation: 08/22 14:21 Chief complaint: Patient states: burning with urination that began Friday. ss Coronavirus screen: Client denies travel out of the [place] in the last 14 days. Ebola Screen: Patient denies exposure to infectious person. Patient denies travel to an Ebola-affected area in the 21 days before illness onset. Initial Sepsis Screen: Does the patient meet any 2 criteria? No. Patient's initial sepsis screen is negative. Does the patient have a suspected source of infection? No. Patient's initial sepsis screen is negative. Risk Assessment: Do you want to hurt yourself or someone else? Patient reports no desire to harm self or others. Onset of symptoms was August 21, 1999. 14:21 Method Of Arrival: Ambulatory ss 14:21 Acuity: SARAI 4 ss Historical: - Allergies: 14:23 No Known Allergies; ss - Home Meds: 14:23 aspirin 81 mg Oral chew 1 tab once daily [Active]; atorvastatin 20 mg Oral tab 1 tab ss once daily [Active]; glimepiride 4 mg Oral tab 1 tab once daily [Active]; lisinopril 20 mg Oral tab 1 tab once daily [Active]; lovastatin 10 mg Oral tab 1 tab once daily [Active]; metformin 1,000 mg Oral tab 2 times per day [Active]; Pepcid 20 mg Oral tab 1 tab once daily [Active]; Plavix 75 mg Oral tab 1 tab once daily [Active]; - PMHx: 14:23 Brain bleed; Diabetes - NIDDM; High Cholesterol; Hypertension; TIA; ss - Immunization history:: Adult Immunizations up to date. - Social history:: Smoking status: Patient denies any tobacco usage or history of. Screenin:20 Abuse screen: Denies threats or abuse. Nutritional screening: No deficits noted. tw2 Tuberculosis screening: No symptoms or risk factors identified. Fall Risk None identified. Assessment: 14:24 General: Appears in no apparent distress. comfortable, Behavior is calm, cooperative. ss Pain: Complains of pain in suprapubic area Pain currently is 8 out of 10 on a pain scale. Is episodic. Neuro: Level of Consciousness is awake, alert, obeys commands, Oriented to person, place, time, situation, Speech is normal. Cardiovascular: Capillary refill < 3 seconds is brisk in bilateral fingers. Respiratory: Airway is patent Respiratory effort is even, unlabored, Respiratory pattern is regular, symmetrical. GI: Patient currently denies diarrhea, nausea, vomiting. : Reports burning with urination, since x 2 days. EENT: Oral mucosa is moist. Derm: Skin is intact, is healthy with good turgor, Skin is dry, Skin is pink, warm \T\ dry. normal. Musculoskeletal: Circulation, motion, and sensation intact. Range of motion: intact in all extremities, Swelling absent. 15:37 Reassessment: Patient appears in no apparent distress at this time. No changes from tw2 previously documented assessment. Patient and/or family updated on plan of care and expected duration. Pain level reassessed. Patient is alert, oriented x 3, equal unlabored respirations, skin warm/dry/pink. Vital Signs: 14:21 BP 141 / 79; Pulse 92; Resp 16; Temp 97.6(TE); Pulse Ox 98% on R/A; Weight 77.11 kg; ss Height 5 ft. 4 in. (162.56 cm); Pain 8/10; 14:21 Body Mass Index 29.18 (77.11 kg, 162.56 cm) ED Course: 14:09 Patient arrived in ED. am2 14:18 Leonel Ramirez PA is PHCP. cp 14:18 Attila Whittington MD is Attending Physician. cp 14:20 Bed in low position. Call light in reach. Pulse ox on. NIBP on. tw2 14:23 Triage completed. ss 14:23 Arm band placed on right wrist. 14:32 Geetha Vega, ELIAS is Primary Nurse. tw2 14:42 Urine Microscopic Only Sent. tw2 15:43 No provider procedures requiring assistance completed. Patient did not have IV access tw2 during this emergency room visit. Administered Medications: No medications were administered Outcome: 15:22 Discharge ordered by . cp 15:43 Discharged to home ambulatory. tw2 15:43 Condition: stable 15:43 Discharge instructions given to patient, Instructed on discharge instructions, follow up and referral plans. medication usage, Demonstrated understanding of instructions, follow-up care, medications, Prescriptions given X 2. 15:44 Patient left the ED. tw2 Signatures: Elba Davis, RN RN Leonel Ramirez PA PA cp Wise, Tara, RN RN tw2 Gita Mcdonald 2
[2020-08-22 15:40] LABS: Urine Bacteria >50 /HPF (<20)
[2020-08-22 15:49] VITALS: BP 141/79; TEMP 97.6; O2SAT 98
== END 2020-08-22 15:44 | disposition home or self-care (01) ==
LOC: ER 14:03
DX: N39.0 Urinary tract infection, site not specified (principal); I10 Essential (primary) hypertension; E11.9 Type 2 diabetes mellitus without complications; E78.00 Pure hypercholesterolemia, unspecified; Z79.01 Long term (current) use of anticoagulants; Z79.82 Long term (current) use of aspirin
CPT/HCPCS: 81003; 81015; 87086; 87088; 99283

== ENCOUNTER 2020-08-30 17:38 | Emergency (ER) | payer OTHER ==
--- OUTSIDE RECORDS SUMMARY | 2020-08-30 17:44 | XMS REPORT | Continuity of Care Document ---
:1950 Author Organization [facility] t Address [address] [place] [address] Care Team Providers Name Role Phone Srini FUENTES Attending Clinician Teena FUENTES Attending Clinician Doctor Unassigned, Name Attending Clinician Unavailable Violet Cavazos Attending Clinician Marco Truong Attending Clinician José Manuel Charles Attending Clinician Trev Wall Attending Clinician Teena FUENTES Admitting Clinician Violet Cavazos Admitting Clinician Marco Truong Admitting Clinician José aMnuel Charles Admitting Clinician Fatou Marrero Admitting Clinician Problems Condition Condition Condition Status Onset Resolution Last Treating Co mments Source Name Details Category Date Date Treatment Clinician Date TIA Diagnosis Active 2017-12-09 Mem oria 08-24 11:24:00 l TIA 00:00: [place] 00 Active 08/24/2017 [facility] POSSIBLE Diagnosis Active 2017-08-24 M emoria STROKE 08-24 14:50:00 l POSSIBLE 00:00: Jimi n STROKE 00 Active 08/24/2017 [facility] ESTEFANIA Diagnosis Active 2017-11-27 Memoria BILLING 08-24 09:54:00 l 00:00: [place] ESTEFANIA 00 BILLING Active 08/24/2017 [facility] LEFT Diagnosis Active 2016-06-19 Mem oria POSTERIOR - 11:51:00 l COMMUNICAT LEFT 00:00: Jimi flower ING ARTERY POSTERIOR 00 ANEU COMMUNICAT ING ARTERY ANEU Active 06/07/2016 [facility] LFLT Diagnosis Active 2016-08-17 Mem oria TRANSFER 1-16 06:30:00 l #[id number] LFLT 00:00: [place] TRANSFER 00 #[id number] Active 02/26/2016 [facility] SAH Diagnosis Active 2016-08-17 Mem oria 1-15 06:29:00 l SAH 23:30: [place] 00 Active 02/25/2016 [facility], Rehabilita tion Weakness Problem 2018-03-15 Mem oria 14:07:55 l Weakness Jimi n 03/15/2018 [facility] Hyperlipid Problem 2018-03-15 M emoria emia, 14:07:55 l unspecifie Jimi n d Hyperlipid emia, unspecifie d 03/15/2018 [facility] Type 2 Problem 2018-03-15 Memor ia diabetes 14:07:55 l mellitus Type 2 Jimi n with diabetes hyperglyce mellitus bart with hyperglyce bart 03/15/2018 [facility] Hypertensi Problem 2018-03-15 M emoria ve chronic 14:07:55 l kidney [place] disease Hypertensi with stage ve chronic 1 through kidney stage 4 disease chronic with stage kidney 1 through disease, stage 4 or chronic unspecifie kidney d chronic disease, kidney or disease unspecifie d chronic kidney disease 03/15/2018 [facility] Type 2 Problem 2018-03-15 Memor ia diabetes 14:07:55 l mellitus Type 2 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 chronic kidney disease 03/15/2018 [facility] Chronic Problem 2018-03-15 Derick rodney kidney 14:07:55 l disease, Chronic Jazmin nn stage 2 kidney (mild) disease, stage 2 (mild) 03/15/2018 [facility] Dependence Problem 2018-03-15 M emoria on renal 14:07:55 l dialysis [place] Dependence on renal dialysis 03/15/2018 [facility] care home Problem 2018-03-15 Me moria (current) 14:07:55 l use of Long [place] oral term hypoglycem (current) ic drugs use of oral hypoglycem ic drugs 03/15/2018 [facility] Diabetes Problem Resolve 2018-03-15 Me moria mellitus d 14:07:55 l (disorder) Diabetes He rmann mellitus (disorder) Resolved Problem 03/15/2018 [facility] Cerebral Problem Active 2018-03-15 Mem oria edema 14:07:55 l (disorder) Cerebral He rmann edema (disorder) Active Problem 03/15/2018 [facility] 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 14:07:55 l (disorder) Flaccid [place] hemiplegia (disorder) Active Problem 03/15/2018 [facility] Hemorrhage Problem Active 2018-03-15 M emoria into 14:07:55 l subarachno Jimi n id space Hemorrhage of into neuraxis subarachno (disorder) id space of neuraxis (disorder) Active Problem 03/15/2018 [facility] Hyperosmol Problem Active 2018-03-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:07:55 l hypernatre Jimi n bart Hyperosmol (disorder) ality with hypernatre bart (disorder) Active Problem 03/15/2018 [facility] Hypertensi Problem Active 2018-03-15 M emoria ve 14:07:55 l disorder, [place] systemic Hypertensi arterial ve (disorder) disorder, systemic arterial (disorder) Active Problem 03/15/2018 [facility] Obstructiv Problem Active 2018-03-15 M emoria e 14:07:55 l hydrocepha Jimi n adam Obstructiv (disorder) e hydrocepha adam (disorder) Active Problem 03/15/2018 [facility] Respirator Problem Active 2018-03-15 M emoria y failure 14:07:55 l (disorder) Jimi n Respirator y failure (disorder) Active Problem 03/15/2018 [facility] Ventricula Problem Active 2018-03-15 M emoria r 14:07:55 l hemorrhage Jimi n (disorder) Ventricula r hemorrhage (disorder) Active Problem 03/15/2018 [facility] TRANSIENT Diagnosis Active 2017-12-09 Memoria CEREBRAL 11:24:00 l ISCHEMIC [place] ATTACK, TRANSIENT UNSP CEREBRAL ISCHEMIC ATTACK, UNSP Active [facility] NONTRAUMAT Diagnosis Active 2016-08-17 Memoria IC 06:29:00 l SUBARACHNO Jimi n ID NONTRAUMAT HEMORRHAGE IC , UN SUBARACHNO ID HEMORRHAGE , UN Active [facility] NONTRAUMAT Diagnosis Active 2016-08-17 Memoria IC 06:29:00 l INTRACEREB Jimi n RAL NONTRAUMAT HEMORRHAGE IC , U INTRACEREB RAL HEMORRHAGE , U Active Rehabil[facility] tion CEREBRAL Diagnosis Active 2016-06-19 M emoria ANEURYSM, 11:51:00 l NONRUPTURE CEREBRAL He rmann D ANEURYSM, NONRUPTURE D Active [facility] History of Past Illness Condition Condition Condition Status Onset Resolution Last Treating Co mments Source Name Details Category Date Date Treatment Clinician Date Other Problem 2018-03-15 2018-03-15 M emoria specified 09-05 14:07:55 14:07:55 l disorders Other 02:58: Jimi flower of brain specified 50 disorders of brain 8 03/15/2018 [facility] Allergies, Adverse Reactions, Alerts This patient has no known allergies or adverse reactions. Social History Social Habit Start Date Stop Date Quantity Comments Source Social History 2016-03-12 2016-03-12 [facility] Ladi muñoz 04:05:16 04:05:16 Medications Ordered Filled Start Stop Current Ordering Indication Dosage Frequency Signature Comments Components Source Medication Medication Date Date Medication? Clinician (SIG) Name Name Metformin Yes 1,250 mg, Mem oria hydrochlori -17 PO, l de 1000 MG 21:02: BID-Meals, Ladi muñoz Oral Tablet 17 # 180 tab, 1 Refill(s), Pharmacy: [id number] Plavix 2018-0 No 75 mg, Memoria 08-26 Route: PO, l 14:00: Drug form: [place] 00 TAB, Daily, Dosing Weight 77.273, kg, [...] 00 # 270 tab, 1 Refill(s), Pharmacy: [id number] clopidogrel Yes 75 mg = 1 M emoria 75 mg oral 7-16 tab, PO, l tablet 21:58: Daily, # [place] 00 90 tab, 1 Refill(s), Pharmacy: [id number] lisinopril Yes 20 mg [...] tab, PO, l tablet 18:11: Daily, 0 [place] 00 Refill(s) glimepiride Yes 4 mg = [...] Memoria 7-16 (Same As: l 17:00: Plavix) [place] Tylenol No Notes: Do Memor ia 7-16 not exceed l 05:45: 4 gm/day. [place] (Same as: Tylenol) Saline No Notes: Memoria Flush 0.9% 7-16 (Same as: l 02:00: BD [place] Posiflush) atorvastati No Notes: Derick rodney n [...] 0.9% 7-15 (Same as: l 19:05: BD [place] Posiflush) Ondansetron Yes 4 mg = 1 [...] 0.9% 5-11 Same as: l 02:00: BD [place] Posiflush Sterile sennosides, No Notes: Derick rodney [facility]CI 5-11 (Same as: l 02:00: Senokot) [place] Docusate No Notes: Memoria 5-11 (Same as: l 02:00: Colace) [place] (Do Not Crush) Tylenol No Notes: Do Memor ia 5-11 not exceed l 00:10: 4 gm/day. [place] (Same as: Tylenol) Insulin No 60 Memoria regular 5-10 units) l 21:10: WASTE: F/P [place] - Black; E - Municipal Trash Bin Stable for 28 days at room temperatur e Expires in days from ____Date Glucagon No 1 mg, Memoria 5-10 Route: IM, l 21:10: Drug form: [place] 00 PDR/INJ, PRN, Dosing Weight 72.727, kg, PRN Blood Glucose Results, Start date: 06/19/16 16:10:00 CDT, Duration: 30 day, Stop date: 07/19/16 16:09:00 CDT Dextrose 2017 No 25 gm, 50 Derick rodney 50% Syringe 5-10 mL, Route: l 21:10: IVP, Drug [place] 00 Form: INJ, Dosing Weight 72.727, kg, PRN, PRN Blood Glucose Results, Start date: 06/19/16 16:10:00 CDT, Duration: 30 day, Stop date: 07/19/16 16:09:00 CDT potassium No Notes: Memori a phosphate-s 5-10 (Same as: l odium 18:36: Phos-NaK) [place] phosphate 00 Each 1.5 250 mg-280 gm pkt has mg-160 mg 250mg oral powder phosphorou for s. Mix reconstitut w/2.5oz ion water and stir. potassium No Notes: Memori a phosphate + 5-10 (Same as: l sodium 18:36: K [place] chloride 00 Phosphate. 0.9% INJ ) 1 mMol 250 mL phoshate has 1.47 mEq potassium Infuse over 4 hours Magnesium No Notes: Memori a Sulfate 5-10 WASTE: F/P l 18:36: - Sink; E [place] 00 - [facility] [employer] McPhy sodium No 45 mmol, Memoria phosphate + 5-10 15 mL, l sodium 18:36: Route: [place] chloride 00 IVPB, PRN, 0.9% INJ Dosing 250 mL Weight 72.727, kg, PRN Abnormal Lab Result, Start date: 06/19/16 13:36:00 CDT, Duration: 30 day, Stop date: 07/19/16 13:35:00 CDT, FOR ICU USE ONLY Magnesium No Notes: Memori a Oxide 5-10 (Same as: l 18:36: Mag-Ox [place] 00 400) Magnesium oxide 800ln=115z g elemental magnesium Dose=____m g magnesium oxide (___mg elemental magnesium) potassium No Notes: Memori a chloride 5-10 (Same as: l 18:36: Potassium [place] 00 Chloride) Calcium No Notes: Memoria Carbonate 5-10 (Same As: l 500 MG 18:36: Tums) [place] Chewable 00 Calcium Tablet Carbonate 500 mg = 200 mg elemental calcium Dose = mg calcium carbonate ( mg elemental calcium) Calcium No Notes: Memoria Gluconate 5-10 WASTE: F/P l 18:36: - Sink; E - Municipal Trash Bin Sodium No 1,000 mL, Memori a Chloride 5-10 Rate: 75 l 0.154 18:36: ml/hr, [place] MEQ/ML 00 Infuse Injectable over: 13.3 Solution [...] Derick rodney 5-10 0 l 11:21: Refill(s) [place] 00 Aspirin Yes 325 mg, Memoria 5-10 [...] needed for itching, Start date: 03/24/16 12:08:00 [facility], Duration: 30 day, Stop date: 04/23/16 12:07:00 CDT Eucerin No Notes: Memoria Plus 2-12 (Same as: l topical 18:08: Cetaphil Jimi n lotion 00 Lotion) Nimodipine No Notes: Memor ia 2-11 (Same as l 03:00: Nimodipine [place] oral suspension 30mg/ml) Instill dose into NG [...] 75, kg, ONCE, Start date: 03/21/16 10:24:00 [facility] [facility], Stop date: 03/21/16 10:24:00 [facility] [employer] [facility] Milk of No Notes: Memoria Magnesia 03-21 [...] Syringe 03-18 25 mL, l 18:27: Route: [place] 00 IVP, Drug Form: INJ, Dosing Weight 75, kg, PRN, PRN Blood Glucose Results, Start date: 03/18/16 12:27:00 [facility] [employer] [facility], Duration: 30 day, Stop date: 04/17/16 12:26:00 [facility] Glucagon No 1 mg, Memoria 2- Route: IM, l 18:27: Drug form: [place] 00 PDR/INJ, PRN, Dosing Weight 75, kg, PRN Blood Glucose Results, Start date: 03/18/16 12:27:00 [facility] [facility], Duration: 30 day, Stop date: 04/17/16 12:26:00 [facility] [employer] [facility] Insulin, No 4 unit, Memori a Aspart, - Route: l Human 04:18: SUB-Q, [place] 00 ONCE, Dosing Weight 75, kg, Start date: 03/15/16 22:18:00 [facility] [facility], Stop date: 03/15/16 22:18:00 [facility] Insulin, No Notes: Memoria Aspart, 2-03 Roll in l Human 04:46: palms of [place] 00 hands gently; Do not shake vigorously [...] Memoria regular 03-13 Route: l 17:30: SUB-Q, [place] TID-Before Meals, Dosing Weight 75, kg, Start date: 03/13/16 11:30:00 [facility] [facility] [facility], Duration: 30 day, Stop date: 04/12/16 6:30:00 [facility] Insulin No Notes: Memoria Glargine 03-13 Same as: l 17:30: Lantus) Do [place] 00 not hold insulin without contacting prescriber WASTE: F/P - Black; E - Municipal Trash Bin Glucagon No 1 mg, Memoria 03-13 Route: IM, l 16:07: PRN, [place] 00 Dosing Weight 75, kg, PRN Blood Glucose Results, Start date: 03/13/16 10:07:00 [facility] [employer] [facility], Duration: 30 day, Stop date: 04/12/16 10:06:00 [facility] [employer] [facility] Dextrose No 25 mL, Memoria 50% Syringe 03-13 Route: l 16:07: IVP, [place] 00 Dosing Weight 75, kg, PRN, PRN Blood Glucose Results, Start date: 03/13/16 10:07:00 [facility] [employer] [facility], Duration: 30 day, Stop date: 04/12/16 10:06:00 [facility] Melatonin 3 No Notes: Derick rodney MG Extended 03-13 (Same as: l Release 03:00: Melatonin) Herm suhas Tablet Glucagon No 1 mg, Memoria 03-12 Route: IM, l 21:24: Drug form: [place] PDR/INJ, PRN, Dosing Weight 75, kg, PRN Blood Glucose Results, Start date: 03/12/16 15:24:00 [facility] [employer] [facility], Duration: 30 day, Stop date: 04/11/16 15:23:00 [facility] Dextrose No 25 gm, 50 Derick rodney 50% Syringe 1-31 mL, Route: l 21:24: IVP, Drug [place] 00 Form: INJ, Dosing Weight 75, kg, PRN, PRN Blood Glucose Results, Start date: 03/12/16 15:24:00 [facility] [facility] [facility], Duration: 30 day, Stop date: 04/11/16 15:23:00 [facility] [employer] [facility] Insulin, No Notes: Memoria Aspart, 1-31 Roll in l Human 21:24: palms of [place] 00 hands gently; Do not shake vigorously . (Same as: NovoLOG) "single patient use only" WASTE: F/P - Black; E - Municipal Trash Bin Stable for 28 days at room temperatur e. Expires in days from ____Date sennosides, No Notes: Derick rodney [facility] -31 (Same as: l 18:00: Senokot) [place] Saline No Notes: Memoria Flush 0.9% 1-31 (Same as: l 15:00: BD [place] Posiflush) Keppra No Notes: Memoria 1-31 (Same l 15:00: as:Keppra) [place] 00 Buspar No Notes: Memoria 1-31 (Same As: l 14:00: BuSpar) [place] insulin, No Notes: Memoria isophane 1-31 Roll in l 14:00: palms of [place] 00 hands gently; Do not shake vigorously [...] Blood Glucose Results, Start date: 03/12/16 3:15:00 [facility] [employer] [facility], Duration: 30 day, Stop date: 04/11/16 3:14:00 [facility] Glucagon No 1 mg, Memoria 03-12 Route: IM, l 09:15: Drug form: [place] 00 PDR/INJ, PRN, Dosing Weight 75, kg, PRN Blood Glucose Results, Start date: 03/12/16 3:15:00 [facility] [facility] [facility], Duration: 30 day, Stop date: 04/11/16 3:14:00 [facility] [employer] [facility] Sodium No 1 gm, 1 Memoria Chloride 03-12 tab, l 1000 MG 06:00: Route: PO, Herm suhas Oral Tablet 00 Drug form: TAB, Q6H, Dosing Weight 90.009, kg, Start date: 03/12/16 0:00:00 [facility] [facility] [facility], Duration: 30 day, Stop date: 04/10/16 18:00:00 [facility] Nimodipine No Notes: Memor ia 03-12 (Same [...] 30 = 1 mL, l 23:13: SUB-Q, [place] 00 Q8H, 0 Refill(s) bisacodyl Yes 10 mg = 1 Mem oria 10 mg 03-11 supp, PA, l rectal 23:13: ONCE, PRN Jimi n suppository 00 Constipati on | once, 0 Refill(s) insulin, No Notes: Memoria isophane 03-10 Roll in l 22:00: palms of [place] 00 hands gently; Do not shake vigorously [...] kg, Priority: NOW, Start date: 03/09/16 18:11:00 [facility] [facility], Duration: 30 day, Stop date: 04/08/16 18:00:00 [facility] [employer] [facility] Ancef + 2017-0 No Notes: Memoria sodium 1-27 (Same As: l chloride 16:55: Ancef, [place] 0.9% INJ 00 Kefzol) 100 mL Cefazolin FOR IV SET ONLY MEDICATION WASTE Product Size: 1000 mg Product Wasted: ___ mg Sodium 2017-0 No 1,000 mL, Memori a Chloride 1-27 1,000 l 0.154 12:25: ml/hr, [place] MEQ/ML 00 Infuse Injectable Over: 1 Solution hr, Route: IV, 1,000, Drug form: INJ, ONCE, Priority: STAT, Dosing Weight 90.009 kg, Start date: 03/08/16 6:25:00 [facility] [employer] [facility], Duration: 1 doses or times, Stop date: 03/08/16 6:25:00 [facility] Sodium 2017-0 No 250 mL, Memoria Chloride 1-26 250 ml/hr, l 0.154 20:24: Infuse [place] MEQ/ML 00 Over: 1 Injectable hr, Route: Solution IV, 250, Drug form: INJ, ONCE, Priority: STAT, Dosing Weight 90.009 kg, Start date: 03/07/16 14:24:00 [facility] [employer] [facility], Duration: 1 doses or times, Stop date: 03/07/16 14:24:00 [facility] Sodium 2017-0 No 500 mL, Memoria Chloride 1-25 500 ml/hr, l 0.154 13:54: Infuse [place] MEQ/ML 00 Over: 1 Injectable hr, Route: Solution IV, 500, Drug form: INJ, ONCE, Priority: STAT, Dosing Weight 90.009 kg, Start date: 03/06/16 7:54:00 [facility] [facility] [employer] [facility], Duration: 1 doses or times, Stop date: 03/06/16 7:54:00 [facility] [employer] [facility] Sodium 2017-0 No 500 mL, Memoria Chloride 1-25 500 ml/hr, l 0.154 12:30: Infuse [place] MEQ/ML 00 Over: 1 Injectable hr, Route: Solution IV, 500, Drug form: INJ, ONCE, Priority: STAT, Dosing Weight 90.009 kg, Start date: 03/06/16 6:30:00 [facility] [facility] [facility], Duration: 1 doses or times, Stop date: 03/06/16 6:30:00 [facility] [employer] [facility] Racepinephr No Notes: Derick rodney ine 22.5 -24 (racepinep l MG/ML 09:00: hrine [place] Inhalant 00 *2.25% inh Solution 0.5ml SOLN) (Same as:S2) Dexamethaso No Notes: Derick rodney ne 24 Concentrat l 06:42: ion: [place] 00 4mg/ml Ondansetron No Notes: Derick rodney - (Same as: l 23:03: Zofran) [place] 00 MEDICATION WASTE Product Size: 4 mg Product Wasted: ___ mg Flumazenil No Notes: Memor ia 03-04 (Same as: l 23:03: Romazicon) [place] 00 Naloxone No Notes: Memoria 03-04 Same as l 23:03: Narcan [place] 00 Labetalol No 10 mg, 2 Derick rodney -23 mL, Route: l 23:03: IVP, Drug [place] 00 form: INJ, Q5Min, Dosing Weight 90.009, kg, PRN Elevated BP, Start date: 03/04/16 17:03:00 [facility] [facility] [employer] [facility], Duration: 5 doses or times, Stop date: Limited # of times esmolol No 10 mg, Memoria 03-04 Route: l 23:03: IVP, [place] 00 Q5Min, Dosing Weight 90.009, kg, PRN Other -See Comment, Start date: 03/04/16 17:03:00 [facility] [facility] [facility], Duration: 5 doses or times, Stop date: Limited # of times Morphine No Notes: Memoria 03-04 (Same l 23:03: as:MORPhin [place] 00 e Sulfate) Omnipaque No 150 ml, Memor ia 300 03-04 Route: l 22:39: INTRAARTER [place] 00 IAL, Dosing Weight 90.009, kg, ONCE, Start date: 03/04/16 16:39:00 [facility] [facility] [facility], Stop date: 03/04/16 16:39:00 [facility] [employer] [facility] Ampicillin No Notes: Memor ia 03-04 (Same as: l 14:00: Principen) [place] 00 MEDICATION WASTE Product Size: 1000 mg [...] 03-03 500 ml/hr, l 0.154 14:37: Infuse [place] MEQ/ML 00 Over: 1 Injectable hr, Route: Solution IV, 500, Drug form: INJ, ONCE, Priority: STAT, Dosing Weight 90.009 kg, Start date: 03/03/16 8:37:00 [facility] [facility] [employer] [facility], Duration: 1 doses or times, Stop date: 03/03/16 8:37:00 [facility] [employer] [facility] Sodium No 500 mL, Memoria Chloride 03-03 500 ml/hr, l 0.154 03:40: Infuse [place] MEQ/ML 00 Over: 1 Injectable hr, Route: Solution IV, 500, Drug form: INJ, ONCE, Priority: STAT, Dosing Weight 90.009 kg, Start date: 03/02/16 21:40:00 [facility] [facility] [facility], Duration: 1 doses or times, Stop date: 03/02/16 21:40:00 [facility] [employer] [facility] Tylenol No Notes: Max Derick rodney 03-02 acetaminop l 16:25: hen = [place] 00 4000mg/day (4 gm/day). (Same as: Tylenol) Dulcolax No Notes: Memoria Laxative 03-02 (Same As: l 15:14: Dulcolax, [place] 00 Bisco-Lax) Sodium No 1,000 mL, Memori a Chloride 03-02 1,000 l 0.154 15:04: ml/hr, [place] MEQ/ML 00 Infuse Injectable Over: 1 Solution hr, Route: IV, 1,000, Drug form: INJ, ONCE, Priority: STAT, Dosing Weight 90.009 kg, Start date: 03/02/16 9:04:00 [facility] [facility] [employer] [facility], Duration: 1 doses or times, Stop date: 03/02/16 9:04:00 [facility] [employer] [facility] Dexamethaso No Notes: Derick rodney ne 1-21 [...] Laxative -20 (Same As: l 13:49: Dulcolax, [place] 00 Bisco-Lax) Fentanyl No 1,000 Memoria 1-20 [...] ne 1-20 Give with l 03:00: food. [place] (Same As: Decadron) insulin, No Notes: Memoria isophane 1-19 Roll in l 22:00: palms of [place] hands gently; Do not shake vigorously . [...] Total Volume: 1,000, Start date: 02/29/16 10:01:00 [facility] [facility] [facility], Stop date: 03/30/16 10:00:00 [facility] [facility] magnesium No Notes: Memori a citrate 1-19 (Same as: l 58.2 MG/ML 15:24: Citrate of H ermann Oral 00 Magnesia) Solution Concentrat ion: 1.745 gm / 30 mL Streptococc No Notes: Derick rodney us 1-19 (Same as: l pneumoniae 15:00: Prevnar Herm suhas serotype 1 00 13) capsular antigen diphtheria [id number] protein conjugate vaccine / Streptococc us pneumoniae serotype 14 capsular antigen diphtheria [id number] protein conjugate vaccine / Streptococc us pneumoniae serotype 18C capsular antigen d Miralax No Notes: Memoria 1-19 Dissolve l 15:00: in 8 oz of [place] 00 water or juice. (Same as: Miralax) Tylenol No Notes: Max Derick rodney 1-19 acetaminop l 11:47: hen = [place] 00 4000mg/day (4 gm/day). (Same as: Tylenol) Sodium No 500 mL, Memoria Chloride 1-19 500 ml/hr, l 0.154 05:36: Infuse [place] MEQ/ML 00 Over: 1 Injectable hr, Route: Solution IV, 500, Drug form: INJ, ONCE, Priority: STAT, Dosing Weight 90.009 kg, Start date: 02/28/16 23:36:00 [facility] [facility] [employer] [facility], Duration: 1 doses or times, Stop date: 02/28/16 23:36:00 [facility] [employer] [facility] Sodium No 1,000 mL, Memori a Chloride 1-19 1,000 l 0.154 04:21: ml/hr, [place] MEQ/ML 00 Infuse Injectable Over: 1 Solution hr, Route: IV, 1,000, Drug form: INJ, ONCE, Priority: STAT, Dosing Weight 90.009 kg, Start date: 02/28/16 22:21:00 [facility] [facility] [facility], Duration: 1 doses or times, Stop date: 02/28/16 22:21:00 [facility] [facility] [employer] [facility] Insulin 2017-0 No 60 Memoria regular 1-18 units) l 16:21: WASTE: F/P [place] 00 - Black; E - Municipal Trash Bin Stable for 28 days at room temperatur e Expires in days from ____Date Dextrose 2017-0 No 12.5 gm, Memor ia 50% Syringe 1-18 25 mL, l 16:21: Route: [place] 00 IVP, Drug Form: INJ, Dosing Weight 90.009, kg, PRN, PRN Blood Glucose Results, Start date: 02/28/16 10:21:00 [facility] [facility] [employer] [facility], Duration: 30 day, Stop date: 03/29/16 10:20:00 [facility] [employer] [facility] Glucagon 2017 No 1 mg, Memoria 1-18 Route: IM, l 16:21: Drug form: [place] 00 PDR/INJ, PRN, Dosing Weight 90.009, kg, PRN Blood Glucose Results, Start date: 02/28/16 10:21:00 [facility] [facility] [employer] [facility], Duration: 30 day, Stop date: 03/29/16 10:20:00 [facility] [facility] insulin, 2016-0 No Notes: Memoria isophane 1-18 Roll in l 15:00: palms of [place] 00 hands gently; Do not shake vigorously [...] Abnormal Lab Result, Start date: 02/28/16 6:56:00 [facility] [facility], Duration: 30 day, Stop date: 03/29/16 6:55:00 [facility] [facility] [facility] heparin No Notes: Memoria -18 porcine l [...] Weight 90.009 kg, Start date: 02/27/16 2:42:00 [facility] [facility] [facility], Duration: 1 doses or times, Stop date: 02/27/16 2:42:00 [facility] [employer] [facility] Cefazolin No Notes: Memori a 02-26 (Same [...] 30 mL, 60 l MEQ/ML 04:47: ml/hr, [place] Injectable 00 Infuse Solution Over: 30 minutes, Route: IV, 30, Drug form: INJ, ONCE, Dosing Weight 90.009 kg, Start date: 02/26/16 22:47:00 [facility] [facility] [facility], Duration: 1 doses or times, Stop date: 02/26/16 22:47:00 [facility] [employer] [facility] Mannitol No Notes: Memoria 02-26 (Same as: l 04:29: Osmitrol) [place] 00 Infuse through 5 micron or smaller filter WASTE: F/P - Sink; E - Municipal Trash Bin chlorhexidi No Notes: Derick rodney ne 02-26 (Same As: l gluconate 03:00: Peridex) Herm suhas 1.2 MG/ML 00 Mouthwash Calcium No Notes: Memoria Carbonate 02-26 (Same As: l 500 MG 02:51: Tums) [place] Chewable 00 Calcium Tablet Carbonate 500 mg = 200 mg elemental calcium Dose = mg calcium carbonate ( mg elemental calcium) Calcium No Notes: Memoria Gluconate 02-26 WASTE: F/P l 02:51: - Sink; E [place] 00 - Municipal Trash Bin Magnesium No Notes: Memori a Sulfate 02-26 WASTE: F/P l 02:51: - Sink; E [place] - Municipal Trash Bin potassium No Notes: Memori a phosphate-s 02-26 (Same as: l odium 02:51: Phos-NaK) [place] phosphate 00 Each 1.5 250 mg-280 gm pkt has mg-160 mg 250mg oral powder phosphorou for s. Mix reconstitut w/2.5oz ion water and stir. Magnesium No Notes: Memori a Oxide 02-26 (Same as: l 02:51: Mag-Ox [place] 00 400) Magnesium oxide 121ub=074z g elemental magnesium Dose=____m g magnesium oxide (___mg elemental magnesium) potassium No Notes: Memori a phosphate + 02-26 (Same as: l sodium 02:51: K [place] chloride 00 Phosphate. 0.9% INJ ) 1 mMol 250 mL phoshate has 1.47 mEq potassium Infuse over 4 hours sodium No 30 mmol, Memoria phosphate + 17 10 mL, l sodium 02:51: Route: [place] chloride 00 IVPB, PRN, 0.9% INJ Dosing 250 mL Weight 90.009, kg, PRN Abnormal Lab Result, Start date: 02/26/16 20:51:00 [facility] [facility], Duration: 30 day, Stop date: 03/27/16 20:50:00 [facility] [employer] [employer], FOR ICU USE ONLY potassium No Notes: Memori a chloride 02-26 (Same as: l 02:51: Potassium [place] 00 Chloride) Dextrose No 12.5 gm, Memor ia 50% Syringe 02-26 25 mL, l 02:50: Route: [place] 00 IVP, Drug Form: INJ, Dosing Weight 90.009, kg, PRN, PRN Blood Glucose Results, Start date: 02/26/16 20:50:00 [employer], Duration: 30 day, Stop date: 03/27/16 20:49:00 [employer] Insulin No Notes: Memoria regular 100 02-26 [...] 10 MG Oral hen. Tablet (Same as: [[place] 10/325] 325/10) Ancef No 1 gm, Memoria 16 Route: l 23:15: IVPB, [place] 00 ONCE, Dosing Weight 90.009, kg, Start date: 02/26/16 17:15:00 [employer], Stop date: 02/26/16 17:15:00 [employer] Ancef No 2 gm, Memoria 1-16 Route: IV, l 20:15: ONCE, [place] Dosing Weight 90.909, kg, Start date: 02/26/16 14:15:00 [employer], Duration: 1 doses or times, Stop date: 02/26/16 14:15:00 [employer], Surgical Prophylaxi s Only; For patients < 120 kg Propofol 10 No 1,000 mg, M emoria MG/ML -16 100 mL, l Injectable 17:59: Rate: Jimi n Suspension 00 Titrate, Start Dose: 5 microgram/ kg/min, Titration: 5 microgram/ kg/min every 15 min, Goal(s): MAP 70-100, Max Dose: 50 microgram/ kg/min, Route: IV, Dosing Weight 90.909 kg, Total Volume: 100, Start date: 02/26/16 11:59:00 [employer],... Fentanyl No Notes: Memoria 1-16 (Same as: l 17:58: Sublimaze) Preservat cristina free. chlorhexidi No Notes: Derick rodney ne -16 (Same As: l gluconate 15:39: Peridex) Herm suhas 1.2 MG/ML 00 Mouthwash Ancef + No Notes: Memoria sodium -16 (Same As: l chloride 15:38: Ancef, [place] 0.9% INJ 00 Kefzol) 100 mL MEDICATION WASTE Product Size: 1000 mg Product Wasted: ___ mg Docusate No Notes: Memoria 1-16 (Same as: l 15:00: Colace) Famotidine No Notes: Memor ia 1-16 (Same as: l 15:00: Pepcid) sennosides, No Notes: Derick rodney [facility] -16 (Same as: l 15:00: Senokot) Levetiracet No Notes: Derick rodney am -16 Same as l 15:00: Keppra Mix with 100 mL NS, LR or D5W MEDICATION WASTE Product Size: 500 mg Product Wasted: ___ mg Omnipaque 2017-0 No 150 ml, Memor ia 350 02-25 Route: l 14:56: INTRAARTER [place] 00 IAL, Dosing Weight 90.909, kg, ONCE, Start date: 02/26/16 8:56:00 [employer], Stop date: 02/26/16 8:56:00 [employer] Nimodipine 2016-0 No Notes: Memor ia 16 (Same as l 12:00: Nimodipine oral suspension 30mg/ml) Instill dose into NG tube and then flush with 30ml of NS Dexamethaso 2016-0 No Notes: Derick rodney ne 16 Concentrat l 12:00: ion: [place] 00 4mg/ml Keppra 2016-0 No 500 mg, Memoria 02-25 Route: IV, l 11:39: ONCE, Dosing Weight 90.909, kg, Start date: 02/26/16 5:39:00 [employer], Stop date: 02/26/16 5:39:00 [employer] Ondansetron 2017-0 No 4 mg, Memor ia 02-25 Route: l 11:31: IVP, Drug form: INJ, ONCE, Dosing Weight 90.909, kg, Priority: STAT, Start date: 02/26/16 5:31:00 [employer], Stop date: 02/26/16 5:31:00 [employer] Morphine 2017-0 No 4 mg, Memoria 02-25 Route: l 11:31: IVP, ONCE, Dosing Weight 90.909, kg, Priority: STAT, Start date: 02/26/16 5:31:00 [employer], Stop date: 02/26/16 5:31:00 [employer] Dextrose 2017-0 No 6.25 gm, Memor ia 50% Syringe 02-25 12.5 mL, l 10:09: Route: IVP, Drug Form: INJ, Dosing Weight 90.909, kg, PRN, PRN Abnormal Lab Result, Start date: 02/26/16 4:09:00 [employer], Duration: 30 day, Stop date: 03/27/16 4:08:00 [employer] Regular 2017-0 No 60 Memoria Insulin, 1-16 [...] Total Volume: 1,000, Start date: 02/26/16 4:09:00 [employer], Duration: 30 day, Stop date: 03/27/16 4:08:00 [employer] iodixanol 0 No 100 mL, Memor ia -16 Route: l 09:43: IVP, Drug [place] 00 Form: SOLN, Dosing Weight 90.909, kg, ONCALL, STAT, Start date: 02/26/16 3:43:00 [employer], Duration: 1 doses or times, Dose = 2.2ml/kg, Max dose = 100ml -- "To be infused by Radiology Staff ONLY" Saline No Notes: Memoria Flush 0.9% -16 Same as: l 08:46: BD [place] 00 Posiflush Sterile Vital Signs Vital Name Observation Time Observation Value Comments Source Temperature Oral (F) 2017-08-26 22:04:00 98.0 F [facility] [place] Respitory Rate 2017-08-26 22:04:00 [facility] [place] Systolic (mm Hg) 2017-08-26 22:04:00 Derick rial [place] Diastolic (mm Hg) 2017-08-26 22:04:00 Mem orial [place] Heart Rate 2017-08-26 22:04:00 [facility] [place] Heart Rate 2017-08-26 17:41:00 [facility] [place] Respitory Rate 2017-08-26 17:41:00 [facility] [place] Systolic (mm Hg) 2017-08-26 17:41:00 Derick rial [place] Diastolic (mm Hg) 2017-08-26 17:41:00 Mem orial [place] Temperature Oral (F) 2017-08-26 17:41:00 98.8 F [facility] [place] Temperature Oral (F) 2017-08-26 15:05:00 97.5 F [facility] [place] Heart Rate 2017-08-26 15:05:00 [facility] [place] Systolic (mm Hg) 2017-08-26 15:05:00 Derick rial [place] Diastolic (mm Hg) 2017-08-26 15:05:00 Mem orial [place] Respitory Rate 2017-08-26 15:05:00 [facility] [place] Weight 2017-08-25 14:36:00 [facility] [place] BMI Calculated 2017-08-25 14:36:00 [facility] [place] Height 2017-08-25 14:36:00 134.62 cm [facility] [place] BMI Calculated 2017-08-24 22:40:00 [facility] [place] Height 2017-08-24 22:40:00 162.56 cm [facility] [place] Weight 2017-08-24 22:40:00 [facility] [place] Weight 2017-08-24 22:24:00 [facility] [place] BMI Calculated 2017-08-24 22:24:00 [facility] [place] Height 2017-08-24 22:24:00 162.56 cm [facility] [place] Weight 2016-06-20 14:40:00 [facility] [place] Respitory Rate 2016-06-20 13:35:00 [facility] [place] Systolic (mm Hg) 2016-06-20 13:00:00 Derick rial [place] Diastolic (mm Hg) 2016-06-20 13:00:00 Mem orial [place] Respitory Rate 2016-06-20 13:00:00 [facility] [place] Systolic (mm Hg) 2016-06-20 12:00:00 Derick rial [place] Diastolic (mm Hg) 2016-06-20 12:00:00 Mem orial [place] Respitory Rate 2016-06-20 12:00:00 [facility] [place] Systolic (mm Hg) 2016-06-20 11:00:00 Derick rial [place] Diastolic (mm Hg) 2016-06-20 11:00:00 [facility] o[facility] [place] BMI Calculated 2016-06-19 11:22:00 [facility] [place] Weight 2016-06-19 11:22:00 [facility] [place] Height 2016-06-19 11:22:00 162.56 cm [facility] [place] Heart Rate 2016-06-19 11:22:00 [facility] [place] Height 2016-06-18 16:25:00 162.56 cm [facility] [place] BMI Calculated 2016-06-18 16:25:00 [facility] [place] Weight 2016-06-18 16:25:00 [facility] [place] Temperature Oral (F) 2016-03-29 13:26:00 97.9 F [facility] [place] Systolic (mm Hg) 2016-03-29 13:26:00 Derick rial [place] Diastolic (mm Hg) 2016-03-29 13:26:00 Mem orial [place] Heart Rate 2016-03-29 13:26:00 [facility] [place] Temperature Oral (F) 2016-03-29 05:10:00 98.5 F [facility] [place] Heart Rate 2016-03-29 05:10:00 [facility] [place] Systolic (mm Hg) 2016-03-29 05:10:00 Derick rial [place] Diastolic (mm Hg) 2016-03-29 05:10:00 Mem o[facility] [place] Respitory Rate 2016-03-29 05:10:00 [facility] [place] Respitory Rate 2016-03-28 20:00:00 [facility] [place] Systolic (mm Hg) 2016-03-28 20:00:00 Derick rial [place] Diastolic (mm Hg) 2016-03-28 20:00:00 [facility] [place] Temperature Oral (F) 2016-03-28 20:00:00 98.3 F [facility] [place] Heart Rate 2016-03-28 20:00:00 [facility] [place] Respitory Rate 2016-03-28 12:35:00 [facility] [place] Weight 2016-03-12 04:00:00 [facility] [place] BMI Calculated 2016-03-12 04:00:00 [facility] [place] Height 2016-03-12 04:00:00 162.56 cm [facility] [place] Weight 2016-03-12 03:52:00 [facility] [place] BMI Calculated 2016-03-12 03:52:00 [facility] [place] Height 2016-03-12 03:52:00 162.56 cm [facility] [place] Systolic (mm Hg) 2016-03-12 02:39:00 Derick rial [place] Diastolic (mm Hg) 2016-03-12 02:39:00 Mem orial [place] Respitory Rate 2016-03-12 02:39:00 [facility] [place] Heart Rate 2016-03-12 02:39:00 [facility] [place] Temperature Oral (F) 2016-03-12 02:39:00 100.1 F [facility] [place] Systolic (mm Hg) 2016-03-12 02:00:00 Derick rial [place] Diastolic (mm Hg) 2016-03-12 02:00:00 Mem o[facility] [place] Systolic (mm Hg) 2016-03-11 22:55:00 Derick rial [place] Diastolic (mm Hg) 2016-03-11 22:55:00 Mem orial [place] Heart Rate 2016-03-11 22:55:00 [facility] [place] Respitory Rate 2016-03-11 22:55:00 [facility] [place] Temperature Oral (F) 2016-03-11 22:55:00 98.3 F [facility] [place] Temperature Oral (F) 2016-03-11 18:04:00 98.0 F [facility] [place] Respitory Rate 2016-03-11 18:04:00 [facility] [place] Heart Rate 2016-03-11 18:04:00 [facility] [place] Height 2016-03-01 20:30:00 160.02 cm [facility] [place] Height 2016-03-01 16:58:00 160.02 cm [facility] [place] Height 2016-03-01 13:44:00 160.02 cm [facility] [place] Weight 2016-02-26 22:08:00 [facility] [place] BMI Calculated 2016-02-26 22:08:00 [facility] [place] Weight 2016-02-26 08:37:00 [facility] [place] BMI Calculated 2016-02-26 08:37:00 [facility] [place] Procedures Procedure Date / Time Performing Clinician [...] [place] intracranial aneurysm [facility] Encounters Start End Encounter Admission Attending Care Care Encounter Source Date/Time Date/Time Type Type Clinicians Facility Department ID 2019-04-04 2019-04-05 Emergency Bryan Milligan [facility] [id number]. [id number] 05:56:22 14:32:00 Corby Dickinson [id number] [place] [id number] [place] [id number] 2019-04-04 2019-04-04 Orders Doctor MARY ANN [id number] 00:00:00 00:00:00 Only Unassigned, FOREIGN 350.1.13.10 [place] [facility] [id number] 2017-08-24 2017-08-26 Outpatient Dirk [facility] [id number] 14:08:00 18:16:00 Veronika 67 [place] 2016-06-19 2016-06-20 Outpatient Dionne Ji [facility] [id number] 05:36:00 12:22:00 Marco 01 2016-03-11 2016-03-29 Outpatient Jacy [facility] [id number] 21:51:00 12:50:00 os, Boom 00 José Manuel 2016-02-26 2016-03-11 Outpatient Mae [facility] [id number] 02:37:00 21:43:00 Rayray Karimi 67 Results Test Description Test Time Test Comments Results Result [facility] e Comments SCR MAMM 2017-12-0 - SCR MAMM BILATERAL BILATERAL DAVE 6 DAVE CAD CAD DIGITAL 15:55:39 DIGITALBILATERAL DIGITAL SCREENING MAMMOGRAM 3D/2D WITH CAD: 12/10/2017CLINICAL: Asymptomatic. Digital breast tomosynthesis was performed in addition to routine CC and MLO views. Current mammographic images were evaluated by either a Unruly M-Vu or a SynergEyes ImageChecker CAD (computer aided detection system). No [...] mammography in one year. Deshaun jacinto/penrad:12/16/2017 15:55:39 Data Security Administrator: Nneka Kahn MM, [facility] Mammographyletter sent: BIRADS 1-2 Normal Mammogram BI-RADS: 2 Benign HEMATOLOGY 2017-08-10 0.1 [place] [address] [place] 06:55:00 HEMATOLOGY 2017-08-10 0.6 [facility] 7 [place] 06:55:00 HEMATOLOGY 2017-08-10 8.2 [facility] 7 [place] 06:55:00 HEMATOLOGY 2017-08-10 38.7 [facility] 7 [place] 06:55:00 HEMATOLOGY 2017-08-10 4.18 [facility] 7 [place] 06:55:00 HEMATOLOGY 2017-08-10 13.1 [facility] 7 [place] 06:55:00 HEMATOLOGY 2017-08-10 9.1 [facility] 7 [place] 06:55:00 HEMATOLOGY 2017-08-10 13.1 [place] [address] [place] 06:55:00 HEMATOLOGY 2017-08-10 230 [facility] 7 [place] 06:55:00 HEMATOLOGY 2017-08-26 06:55:00 Test Item Value Reference Range Interpretation Comme nts MCH (test code = MCH) 31.4 pg 27.0-31.0 [facility] QshgnlwWEVYZXGZXJ9295-26-67 06:55:0033.9[facility] 2017-08-26 06:55:0092.4[facility] HermannPARATHYROID LEQFRFT1492-26-57 06:55:00 1.11[facility]annPARATHYROID LJKJEJA9356-77-39 06:55:001.11[facility] [place] CHEM FROQH1876-32-52 06:55:005.0[facility]annCHEM OTZDK0106-17-56 06:55:002.1 [facility]annCHEM DDEBL7022-22-56 06:55:0076[facility]annCHEM PANEL 2017-08-26 06:55:000.81[facility] HermannCHEM FJKIN4058-51-33 06:55:59877Dyptvkhf HermannCHEM QRBEG9891-54-00 06:55:39150Jaeuhakb HermannCHEM WTOLQ5523-04-81 06:55:004.6[facility]annCHEM HJJOY4734-20-86 06:55:0019[facility] HermannCHEM EILOV3468-86-22 06:55:0025[facility] HermannCHEM TRWXI0526-44-78 06:55:009.2 [facility]annCHEM AXCWW9773-14-26 06:55:63476Khocvghb HermannCHEM PANEL 2017-08-26 06:55:0015.6[facility] JzodvbxFPUWREELPH4530-58-73 06:55:007.2[facility] OqwxqzfENRNAUQLQV6073-38-58 06:55:0051.4[facility] ZyhopyeUJZWDLFHNW1833-44-09 06:55:0038.6[facility] EtvucfsSWCJQBHLET2996-55-43 06:55:003.2[facility] [place] ENKIHIFSOH0948-69-94 06:55:001.9[facility] OsuccytGDZTHLYAOP6606-11-92 06:55:000.9 [facility] NdjrpkpSPIORUPMYN5638-42-22 06:55:004.2[facility] HermannHEMATOLOGY 2017-08-26 06:55:000.2[facility] XewdxcdHPVUIE1248-85-22 20:04:00 Test Item Value Reference Range Interpretation Comments VLDL (test code = VLDL) 22 1 [facility] YcpeqisJSGFTU6868-43-59 20:04:0067[facility] QrsosckUKOVAC8406-72-48 20:04:0030[facility] JebrokcJQRBGX3273-43-20 20:04:42776Gdkuonha HermannLIPIDS 2017-08-24 20:04:77270Fgmnsbyj QwolqchNQTUTW7112-13-72 20:04:00 Test Item Value Reference Range Interpretation Comments CHD Risk (test code = CHD Risk) 3.97 1 3.90-5.80 [facility]annSPECIAL UGYGLQFMW1959-00-84 20:04:008.1[facility]ann[facility] AND QTSYE7925-61-59 20:04:00None Seen (08/24/17 3:04 PM)[facility] VVTIY5170-30-90 20:04:00None Seen (08/24/17 3:04 PM)[facility] XTYLW9472-96-03 20:04:000.2[facility] NQMZG1882-52-68 20:04:00 Negative (08/24/17 3:04 PM)[facility] DRFHP0458-04-67 20:04:00 Negative (08/24/17 3:04 PM)[facility] AOUEX0203-24-51 20:04:00 Negative (08/24/17 3:04 PM)[facility] OJHNM9588-63-11 20:04:00 Negative *NA*(08/24/17 3:04 PM)[facility] XEETN2398-25-23 20:04:00 Test Item Value Reference Range Interpretation Comments UA pH (test code = UA pH) 6.0 1 5.0-8.0 [facility] HFEZC1887-27-41 20:04:00 Test Item Value Reference Range Interpretation Comments UA Spec Grav (test code = UA Spec 1.010 1 Grav) [facility] WODNO4538-32-44 20:04:00Clear (08/24/17 3:04 PM) [facility] RSFBJ0750-54-63 20:04:00Yellow *NA*(08/24/17 3:04 PM) [facility] HermannCARDIAC BCRKSRI9409-95-20 19:18:26<0.02[facility] [place] CARDIAC SGOHMRZ3217-11-56 19:18:2688[facility] CwookvkDKPZTEYHMLQW6352-33-39 19:18:2615.5[facility] CxbegerMYOYEPTBNHQN2868-43-73 19:18:2623[facility] [place] CLXLFMVUBOLJ5006-34-24 19:18:269.0[facility] FiltqhrHJKTQMEBLQBW8174-97-23 19:18:55049Fiirqbjz StwkiacXSWWBWKFKMYG4144-48-40 19:18:2677[facility] [place] DOFEPKIPBQDA6901-60-49 19:18:264.5[facility] RnfcxgxETGXGQHJCVSS3800-86-11 19:18:32457Gizuqund UvcqtjiKYWBTAEVAUHW4685-79-10 19:18:2615[facility] [place] SZHUFKLOAJDB5084-61-89 19:18:260.80[facility] CensdjeWRDKYSNIAISQ4358-17-00 19:18:2692[facility] RixigcrQDPGEOHYFW3830-20-94 19:18:260.7[facility] [place] WSMGEBMJHH2746-90-71 19:18:260.7[facility] QzystaqJIBHAMVIAG1095-46-66 19:18:267.1 [facility] TbqjmfbIWCYFTXVQK7999-67-82 19:18:260.1[facility] HermannHEMATOLOGY 2017-08-24 19:18:260.1[facility] WlaocnjJXJLOUNMBK7020-87-60 19:18:264.4[facility] YfrzplkWGWVLJPOYR3158-81-33 19:18:2657.1[facility] YkimschLMVZNBYQFI3386-64-05 19:18:2635.6[facility] SdruyisUWDYCQJRIO9514-81-64 19:18:265.6[facility] [place] ZOOTIDZUFY5224-18-82 19:18:261.0[facility] UyhcwzaIBUGYWUXJY5042-28-43 19:18:26 Test Item Value Reference Range Interpretation Comments PT (test code = PT) 13.2 s 12.0-14.7 [facility] WvytwivKPZKPSCHWB4071-44-87 19:18:26 Test Item Value Reference Range Interpretation Comments INR (test code = INR) 1.00 1 0.85-1.17 [facility] XbdftgkDMHDJPFWPZ7415-21-84 19:18:268.0[facility]annHEMATOLOGY 2017-08-24 19:18:2633.4[facility] IbipnzmEIXGOCFCAN0636-01-41 19:18:2613.3[facility] TumpdxoSUJPZODSWL4638-63-01 19:18:26 Test Item Value Reference Range Interpretation Comments MCH (test code = MCH) 31.0 pg 27.0-31.0 [facility] XcwjgxoSHCFHPRXHR1325-31-02 19:18:50051Eadcqtsj HermannHEMATOLOGY 2017-08-24 19:18:2640.1[facility] JvcbymcUCXSWAEYNP3297-66-10 19:18:2613.4[facility] AyfxtzcUZRQHPCBAY0543-78-99 19:18:2692.8[facility] AosjfpuEMHNCYXIXN9430-38-62 19:18:2612.4[facility] QstxjidOHFUTKJEZK2075-04-28 19:18:264.32[facility] [place] KFBKAPUHLF9096-50-11 19:18:26 Test Item Value Reference Range Interpretation Comments PTT (test code = PTT) 25.6 s 22.9-35.8 [facility]annCHEM VWOCN4754-78-03 04:36:0089[facility] HermannCHEM PANEL 2016-06-20 04:36:0015.2[facility] HermannCHEM DIJLY9769-38-98 04:36:008.7[facility] HermannCHEM IIZOW0985-57-69 04:36:000.71[facility] HermannCHEM EAEDZ6836-38-42 04:36:004.2[facility] HermannCHEM MAPDR5409-66-99 04:36:10619Gkveyned HermannCHEM ZPMQW6630-72-60 04:36:0025[facility] HermannCHEM XTESY0417-17-74 04:36:90828 [facility]annCHEM DAMEC5732-32-72 04:36:59209Cmtrjlfp HermannCHEM PANEL 2016-06-20 04:36:0013[facility] HermannCHEM JVYLT4815-88-06 04:36:002.1[facility] HermannCHEM YYZUT3371-11-85 04:36:003.3[facility] TdxaypuAKAAAVCNDJ3573-36-55 04:36:004.34[facility] RpsqrckWAJUBBMSXC1886-15-14 04:36:009.5[facility] [place] QTDBZIOGSP0919-63-41 04:36:0013.4[facility] UoykoumJKNRTXTIYR9563-01-01 04:36:00 33.8[facility] EhgxcziSTDUSECUJX7276-50-98 04:36:00 Test Item Value Reference Range Interpretation Comments MCH (test code = MCH) 30.8 pg 27.0-31.0 [facility] AqsmmpwOLBMECRLGZ1020-01-68 04:36:0013.2[facility] HermannHEMATOLOGY 2016-06-20 04:36:0091.0[facility] XxucwzbFERPHJXZUK9082-29-98 04:36:0039.5[facility] QiehsriZKWMQIPMOM0371-36-15 04:36:73504Dbnrycsh TmdefotRGSXMTHMGU2096-17-91 04:36:008.0[facility] EgdjeqkGQDEFYBYAX6800-25-02 04:36:0077.7[facility] [place] TMLMTXEZRX3428-34-77 04:36:0019.0[facility] UuplltjPCBSLCUKTG6119-46-57 04:36:00 0.3[facility] UnxyveiAHWFLTJPYK6565-73-44 04:36:001.8[facility] HermannHEMATOLOGY 2016-06-20 04:36:003.1[facility] BldcierUCPQBAXGQS5518-88-39 04:36:000.2[facility] NioheswTFGTJOKLQS1769-78-97 04:36:007.4[facility] HermannPARATHYROID PROFILE 2016-06-20 04:36:001.10[facility] HermannPARATHYROID XEROHNL0211-59-88 04:36:00 1.10[facility] HermannBACTERIAL - GHYQCIQU3178-22-98 20:52:00Negative (06/19/16 3:52 PM)[facility] UfdqnpvPRYEOIDSGB1016-30-49 12:54:00 Test Item Value Reference Range Interpretation Comments PTT (test code = PTT) 27.8 s 22.9-35.8 [facility] PrvsbwcZGXHUPKDRW8349-29-15 12:54:00 Test Item Value Reference Range Interpretation Comments PT (test code = PT) 14.0 s 12.0-14.7 [facility] CmfcmhyCVBXKBLAAT8094-36-91 12:54:001.06[facility] HermannHEMATOLOGY 2016-06-19 12:54:81446Ddeswqya AldgbshULEGWFZYOB3555-36-15 12:54:66894Faqgvqzv HptbwzmCQCOXSFKJKZI7321-41-27 11:51:004.2[facility] TdcwwofSVYTOWPUMIAP1385-90-50 11:51:000.61[facility] GdyaqveXHGNOQOUZESN5082-20-80 11:51:05728Loyshglz [place] HDUFNWOXQHQK8702-72-60 11:51:0095[facility] RovgdqkMZYHREIIJKLZ8309-46-46 11:51:00 103[facility] AimtqohEQJGNBCIKMTZ9732-42-70 11:51:0026[facility] HermannELECTROLYTES 2016-06-19 11:51:009.2[facility] DlmxyzdFPTGPZTHWYEV5737-64-02 11:51:0014.2 [facility] NxdfyjmRXJXTEWYJEAN3273-92-35 11:51:0020[facility] HermannELECTROLYTES 2016-06-19 11:51:32705Btzsejce GolwetqGLSPEBOOUP3338-89-53 11:51:97588Lxxmrcsl ZabfzphTVWLESJRMM7974-15-28 11:51:0012.3[facility] ZljxrasOYXERGZVAY2704-83-10 11:51:0033.1[facility] BjmvqqhONMZQTXMFI6326-83-51 11:51:007.9[facility] [place] JJMKCOVKHV0159-03-67 11:51:0040.4[facility] AmzkoepZAFSWDAGJT8497-31-82 11:51:00 13.4[facility] SgjvvzzBWSLMDNLBW9137-60-50 11:51:0010.0[facility] HermannHEMATOLOGY 2016-06-19 11:51:004.43[facility] IrjlyxaLLPOVLRPBH3506-29-74 11:51:0091.1[facility] CgmmtevHEVSIYYFXW6980-53-68 11:51:00 Test Item Value Reference Range Interpretation Comments MCH (test code = MCH) 30.2 pg 27.0-31.0 [facility] IajzwzpBALFHALPBD9951-64-95 11:51:000.1[facility] HermannHEMATOLOGY 2016-06-19 11:51:000.0[facility] MecabqkVJIDYUYKKO2609-64-19 11:51:000.0[facility] JrgmjltMMWXVUNGGQ0179-45-17 11:51:001.2[facility] DqqwbjvVDEFCZZZWY4396-42-42 11:51:000.4[facility] ZlgpaukNHYKPXSFBH3599-22-46 11:51:004.7[facility] [place] QXYDWIZKBH7232-80-92 11:51:004.8[facility] ZdywjyeFUBYJCCDHR3695-63-27 11:51:00 47.6[facility] OeiyimuMUBASFKDTW6502-56-73 11:51:0046.9[facility] HermannHEMATOLOGY 2016-06-19 11:51:004.3[facility] FWXOT7775-07-54 22:55:001 [facility] YFZPG9158-55-85 22:55:00<1[facility] FUNNV0036-90-35 22:55:00Clear (03/23/16 4:55 PM)[facility] STOOL 2016-03-23 22:55:001.011[facility] GXUNH4339-22-67 22:55:006.0 [facility] HALMZ7904-05-37 22:55:00Yellow *NA*(03/23/16 4:55 PM) [facility] KSNON7354-81-02 22:55:00Negative *NA*(03/23/16 4:55 PM) [facility] PSMOO4340-03-18 22:55:00Negative (03/23/16 4:55 PM) [facility] AMHTW7178-85-19 22:55:00Negative (03/23/16 4:55 PM) [facility] MCHEB1753-05-46 22:55:00Negative (03/23/16 4:55 PM) [facility]annCHE[facility] JEBIM0580-57-07 12:16:0021[facility]annCHEM PANEL 2016-03-22 12:16:0015.2[facility]annCHE[facility] IARDF4558-22-22 12:16:004.0[facility]annCHEM HGQXD8461-95-16 12:16:000.8[facility]annCHEM RUHJD5190-38-77 12:16:0076[facility]CHE[facility] LVEKP2083-51-08 12:16:000.3[facility]annCHE[facility] PDLSI5995-82-60 12:16:0028[facility]annCHE[facility] XTUPR1320-40-31 12:16:009.2 [facility]CHE[facility] CRBNI6416-28-45 12:16:003.1[facility]annCHEM PANEL 2016-03-22 12:16:004.2[facility]annCHE[facility] RDALC6284-50-84 12:16:0097[facility]CHE[facility] XOADY8167-27-69 12:16:007.1[facility]annCHE[facility] YSEYY5618-48-72 12:16:0034[facility]annCHE[facility] QGXWE1121-48-01 12:16:0059[facility]annCHE[facility] JZEAP0161-39-63 12:16:0086[facility]annCHE[facility] FSIJM7510-58-24 12:16:17401 [facility]CHE[facility] LUTTM5279-16-70 12:16:72519Mgwlelmy HermannCHEM PANEL 2016-03-22 12:16:0017[facility]annCHEM PCWJQ4578-51-03 12:16:000.82[facility] SkvcnckYWWEDOSAZP6431-29-70 12:16:004.2[facility] PqgpkhzWSOBURXHRE1594-44-19 12:16:002.5[facility] TszwbxlNPWPDEUUTA7103-53-11 12:16:000.6[facility] QLFPZKVOHK1447-73-91 12:16:002.1[facility] SklkpycLHCHJQCMUX0181-05-13 12:16:000.6 [facility] YzkhssoWNQVXUMNET3641-72-49 12:16:000.2[facility]annHEMATOLOGY 2016-03-22 12:16:007.5[facility] JblndoaWRURKWORXM1931-85-80 12:16:0056.8[facility] OvpvrzgYYZCBZRWRK4489-91-00 12:16:0033.0[facility] DbluiukNSVDCIFHBO3471-20-42 12:16:00 Test Item Value Reference Range Interpretation Comments MCH (test code = MCH) 32.0 pg 27.0-31.0 [facility] XptgdifMDVWUQRVDA9314-20-05 12:16:0033.7[facility]annHEMATOLOGY 2016-03-22 12:16:007.4[facility] FvicfoqNERMWSUOWL0807-37-39 12:16:0014.3[facility] WtygyflQUOXWLXDBW8225-79-53 12:16:13102Kbxmgven DblihrkYFZMYQJPOA9414-84-01 12:16:0095.0[facility] IadiaiwIJIJFJTRCD2065-40-07 12:16:0036.1[facility] XLBVMQTKNF5471-90-18 12:16:0012.2[facility] IxitnyjTCEJRQOTSS5988-81-38 12:16:00 3.80[facility] WbzxiqaBTHTQMQLSK9169-81-71 12:16:007.5[facility]annCHEM PANEL 2016-03-20 10:34:0025[facility]annCHEM HBHGN8585-92-04 10:34:0015.1[facility]annCHEM DTZSL1709-24-70 10:34:004.6[facility]annCHEM BASVI8190-00-19 10:34:000.7[facility]annCHEM LGLRZ2483-36-24 10:34:0086[facility]annCHEM ELXWO4441-81-25 10:34:000.4[facility]annCHEM CANPR7878-34-95 10:34:0093 [facility]CHE[facility] CDSAT7594-84-72 10:34:0074[facility]annCHEM PANEL 2016-03-20 10:34:0032[facility]annCHEM IXZIB9945-57-51 10:34:003.4[facility]annCHEM GBTII1819-17-19 10:34:008.0[facility]annCHEM YIEXE2984-59-46 10:34:0098[facility]annCHEM KMEOD2790-59-06 10:34:0027[facility]annCHEM UUVNS7210-51-57 10:34:009.6[facility]annCHEM XUDLJ6707-24-05 10:34:000.68 [facility]annCHE[facility] QDYMG4689-28-55 10:34:43974Bvygmpcv HermannCHEM PANEL 2016-03-20 10:34:004.1[facility]annCHEM OIQMR0923-83-62 10:34:21748Uoolparc HermannCHEM SHXGK8184-30-32 10:34:0017[facility] YbmveqgZSJDWIPDVV6386-02-50 10:34:006.1[facility] CmgtuvhNGQZSBFUMJ5131-13-29 10:34:002.1[facility] NMUJWGIMGJ9865-72-53 10:34:0028.0[facility] WjimowtEKCMOIXVQD3807-24-65 10:34:00 0.2[facility] YuiyfcdZUYWDMISSM6505-73-56 10:34:000.1[facility]annHEMATOLOGY 2016-03-20 10:34:0063.1[facility] GgaaaklRAHQPCISMG0876-90-46 10:34:002.4[facility] WrnunppGBXOPRESFA0847-02-90 10:34:000.5[facility] FcbllhrFALABMBDPO7830-74-33 10:34:000.7[facility] RkepmhxZJAGXIGFJU5031-83-89 10:34:005.3[facility] JAZSUVAYCH2021-56-99 10:34:03806Qzwojrhg YepptduQBDVXAVFVG4509-83-33 10:34:008.4 [facility] KkiqsydLTFCVQQRBI6017-17-77 10:34:0094.9[facility] HermannHEMATOLOGY 2016-03-20 10:34:0037.1[facility] GosbukvZZUUHHDHYF4052-83-04 10:34:0012.6[facility] PincpniSXWZEOXXXB6077-18-67 10:34:008.5[facility] QyvihbuJWKBERTHFL1239-44-20 10:34:003.90[facility] BkcbdtfIEHEMJSXKS7322-32-63 10:34:0014.4[facility] PNKRPVNUWU2747-65-02 10:34:00 Test Item Value Reference Range Interpretation Comments MCH (test code = MCH) 32.2 pg 27.0-31.0 [facility] LzujfltYZYIDTUCGJ0481-65-36 10:34:0033.9[facility] HermannCHEM PANEL 2016-03-18 10:48:0093[facility]annCHEM AOVUG1104-70-86 10:48:03772Axnkmyfm HermannCHEM QKJBK2352-93-32 10:48:0018[facility]annCHEM IKLUD7179-63-38 10:48:0078[facility]annCHEM KYKPF5500-17-58 10:48:0035[facility]annCHEM EQKVH8181-60-29 10:48:0074[facility]annCHEM LRFEN4567-74-80 10:48:000.67 [facility]annCHE[facility] UGDCO1018-28-65 10:48:0099[facility]annCHEM PANEL 2016-03-18 10:48:003.9[facility]annCHEM TVNND1567-11-37 10:48:84214Yfpkfysh HermannCHEM DCYVM4421-07-49 10:48:007.2[facility]annCHEM YZNTB6722-45-26 10:48:009.1[facility]annCHEM KUUJE5012-89-05 10:48:0027[facility]annCHEM WAHOJ8696-79-61 10:48:003.1[facility]annCHEM GDHNE3481-33-71 10:48:000.3 [facility]annCHEM WCSJH7522-24-70 10:48:000.8[facility]annCHEM PANEL 2016-03-18 10:48:004.1[facility]annCHEM CSTOP8671-97-37 10:48:0027[facility]annCHEM GRZKT4118-95-56 10:48:0013.9[facility] ZnzfkhnLJAANUXQKB6762-32-24 10:48:92411Yaificyg LhqqfrfIEYBLDSIOM9219-25-04 10:48:00 Test Item Value Reference Range Interpretation Comments MCH (test code = MCH) 32.4 pg 27.0-31.0 [facility] TlntndbANMNPXZCYY1658-87-57 10:48:008.1[facility] HermannHEMATOLOGY 2016-03-18 10:48:0033.9[facility] QhrtruqOWXURMVEBQ4237-98-34 10:48:0014.3[facility] QixfoinJEMLEQUSTU5356-57-22 10:48:0011.8[facility] ZxuuwikBUHFUKWEOH7541-95-74 10:48:008.3[facility] UnajsenBDYVVQCGFG1599-81-02 10:48:0034.6[facility] QCYWVQHBCD6624-39-90 10:48:0095.3[facility] RpdxxvjIFTNZWVMKA7400-04-36 10:48:00 3.63[facility] YodeqzdKOERRRRHIG9194-17-56 10:48:000.2[facility] HermannHEMATOLOGY 2016-03-18 10:48:000.5[facility] ZechstnVTMOTYBQGQ1289-67-51 10:48:002.6[facility] OttofnmBXKPJSECKJ9748-18-16 10:48:000.1[facility] HtukpplFDWFNVCTMH2785-65-82 10:48:001.0[facility] YogjgpuRBMCDPNPRT1206-57-90 10:48:002.0[facility] PFGWVUGKGX7632-28-47 10:48:006.2[facility] KdjgcfaVKFFCGQAFX0744-74-58 10:48:00 59.4[facility] QksfvbhYUWOBPGSKM5540-37-34 10:48:0031.4[facility] HermannHEMATOLOGY 2016-03-18 10:48:004.9[facility] DggiiixCMIIOIFJIU8062-00-44 11:38:000.1[facility]annUR[facility] AND EIIGP9053-12-46 06:37:00Negative (03/14/16 12:37 AM)[facility] MLROM3568-11-81 06:37:00Negative *NA*(03/14/16 12:37 AM)[facility] JLNCS8151-29-48 06:37:00Negative (03/14/16 12:37 AM)[facility] BSCMB5769-80-90 06:37:004.0[facility] STOOL 2016-03-14 06:37:001[facility] EJYDH4523-11-28 06:37:00>182 [facility] NJKCZ1445-73-82 06:37:00Large *ABN*(03/14/16 12:37 AM) [facility] DJXGG5745-66-45 06:37:00Yellow *NA*(03/14/16 12:37 AM) [facility] SQWAJ4749-63-17 06:37:00Slight *ABN*(03/14/16 12:37 AM) [facility] RYABY2400-26-67 06:37:001.016[facility] TBGAR9855-68-12 06:37:005.5[facility]annCHEM USJIZ3340-06-82 10:47:004.1 [facility]annCHEM UAOAS9896-77-55 10:47:002.4[facility] HermannIMMUNOLOGY 2016-03-12 10:47:0027.4[facility]annCHEM LSAGH3604-94-69 10:54:004.0[facility]annCHEM LEJIB4706-97-20 10:54:002.4[facility] XxrvbkbRXDILWMITQFJ4464-43-60 10:54:0014.1[facility] YgorlzqDTMNLZTJCKAB9892-08-60 10:54:0097[facility] VTTSSDDFHXRL8580-64-92 10:54:0020[facility] LirvtsaJJAZVLYVYXQY7010-11-89 10:54:00 0.59[facility] RsmfcehPUVDXORELDCS4878-26-62 10:54:33464Zrrvlsdq [facility] HSEMLXGJNDKD6405-35-80 10:54:004.1[facility] NsqbpuxGJBODTQFCOTD5740-35-43 10:54:0023[facility] ZdrtalbRPSWFRATNSRI1498-90-88 10:54:51310Szavisvi [facility] EHBFYZOLGNYO8958-24-78 10:54:008.6[facility] QspbhjjZPUFJDHTBYDR4847-03-79 10:54:0095[facility] MpixpwpSEOQAGAOHH7401-93-45 10:54:003.3[facility] NVOYLMPYLQ4483-96-95 10:54:009.6[facility] ZeovkboKWRCMGRZYC9911-54-08 10:54:00 67.9[facility] XvivwmdTKMUQNREMC7743-41-24 10:54:0023.3[facility] HermannHEMATOLOGY 2016-03-11 10:54:006.4[facility] JdwzwxtSLCMDWOUKJ9834-59-70 10:54:001.4[facility] FqnuftkLEVSASILIR1118-46-84 10:54:001.0[facility] MsrbettVZZOASGPOW7899-87-02 10:54:000.2[facility] LovhwldFCIYDOQWHG4508-71-62 10:54:000.1[facility] DXQHHMWRLY0124-25-65 10:54:000.9[facility] DtdkxysVJUPTIWLJR9921-23-32 10:54:008.3 [facility] MzvmihtHITDZQXDTK8649-02-63 10:54:00 Test Item Value Reference Range Interpretation Comments MCH (test code = MCH) 32.2 pg 27.0-31.0 [facility] GpauuudXLSCYLXQGF0006-00-63 10:54:0094.2[facility] HermannHEMATOLOGY 2016-03-11 10:54:68267Fyznvjfi IqegrojWIVCDNTDSP9699-23-75 10:54:0034.2[facility] FbutfgxYDHQLSKYIQ6476-85-62 10:54:0014.3[facility] VptvjrmXORISJZOZA7729-25-64 10:54:0033.8[facility] RdftmqgLVKNVLXYUM0664-79-59 10:54:0014.1[facility] YTNZJQWEFR8447-37-46 10:54:0011.5[facility] OdwhicoCXPHMEVLXI8032-27-87 10:54:00 3.59[facility] HermannPARATHYROID NCAISJA2199-75-73 10:54:001.00[facility] PARATHYROID STJDHPZ6732-39-97 10:54:001.06[facility] HermannCHEM CGNDI5870-14-73 08:06:002.8[facility] HermannCHEM RYPAI9446-88-55 08:06:0098[facility]annCHEM SAUGJ5838-49-88 08:06:009.6[facility]annCHEM OZLWO7634-16-45 08:06:008.8 [facility]annCHEM EJWLE3345-82-52 08:06:000.58[facility] HermannCHEM PANEL 2016-03-10 08:06:003.6[facility] HermannCHEM WMTDM1037-42-14 08:06:23891Tsgnnaxf HermannCHEM NLOQG1787-37-59 08:06:0029[facility] HermannCHEM PUPIJ4666-69-33 08:06:88892Jfyhcwjc HermannCHEM BDLXI0541-00-76 08:06:0085[facility] HermannCHEM OZGGW8445-90-00 08:06:0020[facility]annCHEM NDOLW5551-89-45 08:06:004.2 [facility] VgdjttgBYPEDICNDQ6731-84-83 08:06:0015.8[facility] HermannHEMATOLOGY 2016-03-10 08:06:003.55[facility] IovacvtYPVWVDCIFH4257-65-20 08:06:0013.5[facility] GpffslgCBLYDNSFKM9578-65-25 08:06:91581Xtttvyeb VozeaskDDGWJPNKYS9635-94-13 08:06:008.7[facility] VdkyvkgEPOOMLMKUK9313-39-67 08:06:0011.1[facility] QTROMVSVNG4302-55-11 08:06:0033.9[facility] IfophaqNEMQDDMMWE4084-21-38 08:06:00 95.6[facility] HpiwtzeIXNMRRJQYT4714-25-19 08:06:00 Test Item Value Reference Range Interpretation Comments MCH (test code = MCH) 31.3 pg 27.0-31.0 [facility] GmtunlzYGNTUAYCEP5287-80-81 08:06:0032.7[facility] HermannHEMATOLOGY 2016-03-10 08:06:000.2[facility] JvfotrbBLHUZLSVDI8420-14-19 08:06:001.3[facility] AuwvnsjFNELMRFNAT1755-08-97 08:06:000.2[facility] CnqhkboGPBWFQWCKJ1647-19-53 08:06:0010.3[facility] KhiabplREOSKUCQEG1190-37-27 08:06:003.9[facility] FZRRLSZKLF8867-88-41 08:06:001.0[facility] EhsvwviMGMNQSZSYT4116-32-66 08:06:001.1 [facility] DeppnvoKFSOKZTIQT7126-86-80 08:06:0064.9[facility] HermannHEMATOLOGY 2016-03-10 08:06:008.2[facility] CzyyekzPWOOTYCDQZ8973-68-64 08:06:0024.8[facility] HermannPARATHYROID NVYFUVV7478-58-69 08:06:001.11[facility] HermannPARATHYROID XMUGNXV8910-48-04 08:06:001.14[facility] FedaozwEGEVSPTYDNVF9530-35-99 21:07:26852 [facility]annCHEM VOHMW5718-86-40 08:56:002.3[facility] HermannCHEM PANEL 2016-03-09 08:56:003.4[facility] VmvcvdjYUZDPQICEJIV1416-67-73 08:56:0014.7 [facility] JxdgpagFSZAOXXLLYQE1583-48-75 08:56:0099[facility] HermannELECTROLYTES 2016-03-09 08:56:0019[facility] CqvzfaaWJFYAAZFQHIP0583-85-68 08:56:000.56[facility] CqnriovQDFQIGIEIPFG8822-89-70 08:56:92966Qzkqqejc GrpaenwHHRAATQRCKCR9489-41-31 08:56:003.7[facility] VrrfxosCJSSJQHJPFTG9216-12-40 08:56:63426Wgjedwwh [facility] OSZKNRAFJHGS9074-87-52 08:56:0023[facility] ZsebnjpQLIBRXLROTDF3024-43-81 08:56:00 8.8[facility] IhubqzyJLVNLNBZWP3672-66-33 08:56:0011.6[facility] HermannHEMATOLOGY 2016-03-09 08:56:001.1[facility] GufsxgvTLYNBERCHE8998-28-96 08:56:001.0[facility] OmcxwtiSKJNTCNNFF0733-98-07 08:56:003.4[facility] MgjsmbuXSUEKFVRGE2274-45-95 08:56:0070.0[facility] OhehukxCOARRSOCYK3845-07-08 08:56:007.2[facility] OBSUDHORDJ3389-60-66 08:56:0020.7[facility] DmdormaQSJUDMAUNF3408-60-40 08:56:00 1.2[facility] XvcdqziWXJZFJSWNY7489-18-69 08:56:000.2[facility] HermannHEMATOLOGY 2016-03-09 08:56:000.2[facility] PcckdwbNFMSMFHBIM7057-08-38 08:56:03716Ernzfhpa EeggjeoPBOISGUTUV4020-06-45 08:56:0013.7[facility] EpsombxLHYMMFTTIW4912-62-52 08:56:008.1[facility] HrkxsbeTTTQTQTYEW8154-99-10 08:56:00 Test Item Value Reference Range Interpretation Comments MCH (test code = MCH) 31.9 pg 27.0-31.0 [facility] ZskmnezJMKKRISBLE1067-85-49 08:56:0033.3[facility] HermannHEMATOLOGY 2016-03-09 08:56:0094.1[facility] RkvvwofSVBOUHRRVT4249-88-39 08:56:0033.8[facility] QocuekjVNBCJFXUWY6023-15-58 08:56:0016.6[facility] GcoxdanXGUNMXRLRW3630-41-14 08:56:0011.3[facility] VaapyxpRIOPVHBTMV6653-11-07 08:56:003.54[facility] PARATHYROID KQNOZRB2301-57-92 08:56:001.06[facility] HermannPARATHYROID PROFILE 2016-03-09 08:56:001.02[facility] HermannBLOOD BANK ZTJGKMJ1066-07-54 06:29:00 Negative (03/08/16 12:29 AM)[facility] QqxqugeRKLKAUIFIZ8357-83-66 06:20:00 Test Item Value Reference Range Interpretation Comments PTT (test code = PTT) 27.1 s 22.9-35.8 [facility] ShrvijjQVPLGJGQVO0840-94-78 06:20:00 Test Item Value Reference Range Interpretation Comments PT (test code = PT) 14.3 s 12.0-14.7 [facility] SitupywVXVWYKQQEJ8325-24-38 06:20:001.09[facility] HermannBODY FLUIDS 2016-03-07 22:52:0060[facility]annBODY HJZZZM0086-69-97 22:52:003.2[facility] HermannBODY DMMWCT9509-59-06 22:52:28648Lzgbamzt HermannBODY IEFZPP6451-39-83 22:52:0018[facility]annBODY SUWUWJ6073-24-25 22:52:0055[facility] HermannBODY UQQTVN7641-39-58 22:52:0027[facility]annBODY GFBEQX8302-00-35 22:52:5308945 [facility]annB[facility] ZRYPIN9607-80-34 22:52:0069[facility] HermannBODY FLUIDS 2016-03-07 22:52:00Red *ABN*(03/07/16 4:52 PM)[facility]annBODY FLUIDS 2016-03-07 22:52:00Moderate *ABN*(03/07/16 4:52 PM)[facility]annBODY FLUIDS 2016-03-07 22:52:00 Test Item Value Reference Range Interpretation Comments Tube Num CSF (test code = Tube Num CSF) 1 1 [facility]annB[facility] ZWFFWH1154-91-40 22:52:00Hemolyzed *ABN*(03/07/16 4:52 PM) [facility] BAYNE7110-79-72 22:52:00Negative (03/07/16 4:52 PM) [facility] ELBPE2850-06-50 22:52:00Negative (03/07/16 4:52 PM) [facility] OHRLU5893-18-68 22:52:00Moderate *ABN*(03/07/16 4:52 PM)[facility] EDXLF5879-04-53 22:52:000.2[facility] ACZLV2476-15-13 22:52:00Negative *NA*(03/07/16 4:52 PM)[facility] QFRXV2249-67-66 22:52:00Negative (03/07/16 4:52 PM)[facility] ZBDYA3569-15-98 22:52:00Negative *NA*(03/07/16 4:52 PM)[facility] DZSND1171-90-17 22:52:00Negative (03/07/16 4:52 PM)[facility] CLBRT5437-44-16 22:52:00Yellow *NA*(03/07/16 4:52 PM)[facility] RPQRA6454-17-22 22:52:00 Test Item Value Reference Range Interpretation Comments UA pH (test code = UA pH) 6.5 1 5.0-8.0 [facility] MMSRE2521-64-77 22:52:00Slight Cloudy (03/07/16 4:52 PM)[facility] FIZQV2645-22-11 22:52:00 Test Item Value Reference Range Interpretation Comments UA Spec Grav (test code = UA Spec 1.010 1 Grav) [facility] UALMR5441-59-94 22:52:0012[facility] WEBAH4620-58-11 22:52:007[facility]annBODY OCVFBI4600-48-11 22:02:02063 [facility] XSQYAD0261-48-92 22:02:0052[facility] HermannBODY FLUIDS 2016-03-05 22:02:0069[facility]annBODY DXWGFN0940-00-14 22:02:0021[facility]annBODY RBLUIP2526-68-87 22:02:0010[facility]annBODY FRJVCM8192-80-34 22:02:00xxxxxxx (03/05/16 4:02 PM)[facility]annB[facility] BEAUYD9949-35-76 22:02:00 Red *ABN*(03/05/16 4:02 PM)[facility]annB[facility] YJRLNM5156-37-23 22:02:00Marked *ABN*(03/05/16 4:02 PM)[facility]annB[facility] IOYVZP0950-18-86 22:02:00Hemolyzed *ABN*(03/05/16 4:02 PM)[facility]annB[facility] LXCERW4258-41-24 22:02:55911Ekhfqemz HermannBODY WGEIJK4494-67-00 22:02:8451761Bqdwurvj HermannURINE AND STOOL 2016-03-05 15:24:007[facility] AND XMKMR9346-47-73 15:24:00Not Indicated *NA*(03/05/16 9:24 AM)[facility] GHSMY2741-02-42 15:24:00Negative (03/05/16 9:24 AM)[facility] TTVUV8569-49-14 15:24:001[facility] HRKAF3021-47-99 15:24:00Negative (03/05/16 9:24 AM)[facility] CDXGY4164-16-05 15:24:00Clear (03/05/16 9:24 AM)[facility] YUFOZ0566-00-32 15:24:001.011[facility] FHNXN8997-95-43 15:24:00Negative *NA*(03/05/16 9:24 AM)[facility] OJOYC1439-31-15 15:24:00Yellow *NA*(03/05/16 9:24 AM)[facility] QCMTK0457-88-04 15:24:00Negative (03/05/16 9:24 AM)[facility] SWZWO4813-99-95 15:24:007.0[facility] HermannBLOOD BANK YCKLAWG2959-07-93 06:31:00 Negative (03/04/16 12:31 AM)[facility] UzfmmfdEKMIQLCKAV0500-27-01 06:31:00 Test Item Value Reference Range Interpretation Comments PTT (test code = PTT) 28.1 s 22.9-35.8 [facility] WblwxucSIFZVVZHZE0432-52-49 06:31:00 Test Item Value Reference Range Interpretation Comments PT (test code = PT) 14.5 s 12.0-14.7 [facility] BorhisaFBDEGYEVFF3948-98-47 06:31:001.11[facility] HermannBODY FLUIDS 2016-03-01 21:14:0087[facility]annBODY IHOBBA6429-40-87 21:14:002.7[facility]annBODY NLVHHS0985-65-87 21:14:0078[facility]annBODY LCWOKU3523-96-03 21:14:0013[facility]annBODY HVNAWO7596-32-13 21:14:0013[facility]annB[facility] VCDNBW2297-02-92 21:14:0074[facility]annBODY LMUAXX6280-72-20 21:14:55074 [facility]annB[facility] MPOHZA3599-28-45 21:14:9238143Gorqyukf HermannBODY FLUIDS 2016-03-01 21:14:00Marked *ABN*(03/01/16 3:14 PM)[facility]annBODY FLUIDS 2016-03-01 21:14:00Hemolyzed *ABN*(03/01/16 3:14 PM)[facility]annBODY FLUIDS 2016-03-01 21:14:00Red *ABN*(03/01/16 3:14 PM)[facility]annBODY FLUIDS 2016-03-01 21:14:00xxxxxxx (03/01/16 3:14 PM)[facility] STOOL 2016-02-29 17:57:00Negative (02/29/16 11:57 AM)[facility] STOOL 2016-02-29 17:57:002[facility]UR[facility] AND WCZKT1710-04-87 17:57:002[facility]UR[facility] AND TZJBR8275-05-12 17:57:00Negative (02/29/16 11:57 AM)[facility] AITYL3031-57-38 17:57:00Negative (02/29/16 11:57 AM)[facility] YJODF0494-40-67 17:57:001[facility]UR[facility] STOOL 2016-02-29 17:57:001.016[facility]UR[facility] LHAKB8215-63-86 17:57:005.5 [facility] LRYTN1470-33-95 17:57:00Slight *ABN*(02/29/16 11:57 AM) [facility] QZEEU8263-82-58 17:57:00Negative *NA*(02/29/16 11:57 AM)[facility] GSUIR6688-20-06 17:57:00Yellow *NA*(02/29/16 11:57 AM)[facility] HermannCARDIAC GDVBVUG3745-61-82 06:37:00<0.02[facility] BACTERIAL - OQRKDCMS8476-49-88 14:34:00Negative (02/27/16 8:34 AM)[facility] HermannDRUG QQCTUN3074-90-28 06:41:00Negative *NA*(02/27/16 12:41 AM)[facility] HermannDRUG KBTGUK7416-60-93 06:41:00Negative *NA*(02/27/16 12:41 AM)[facility]annDRUG VQTUEQ2870-05-39 06:41:00Negative *NA*(02/27/16 12:41 AM)[facility]annDRUG SICXKH4720-52-87 06:41:00Negative *NA*(02/27/16 12:41 AM)[facility]annDRUG BYWQSL2132-85-51 06:41:00Negative *NA*(02/27/16 12:41 AM)[facility] HermannDRUG MDJKUY8856-73-18 06:41:00Negative *NA*(02/27/16 12:41 AM)[facility] HermannDRUG MSOUJL6174-32-69 06:41:00Negative *NA*(02/27/16 12:41 AM)[facility] HermannDRUG TQLTQW2998-37-85 06:41:00Negative *NA*(02/27/16 12:41 AM)[facility]annDRUG VQIRRW8198-29-52 06:41:00Negative *NA*(02/27/16 12:41 AM)[facility]annDRUG OGXAAH2205-54-10 06:41:00See Note *NA*(02/27/16 12:41 AM)[facility] VdtqvzqIMFJUYFAZH8653-50-16 06:40:00 Test Item Value Reference Range Interpretation Comments Angle (test code = Angle) 74.3 degrees 53.0-72.0 [facility] KeudwsaJFWGQZMZNS6156-22-36 06:40:00 Test Item Value Reference Range Interpretation Comments Max Amp (test code = Max Amp) 69.2 mm 50.0-70.0 [facility] GoewftkAGHZXWCTSD0398-93-17 06:40:003.5[facility] HermannHEMATOLOGY 2016-02-27 06:40:0011.3[facility] NfmcsygLUQJWKVGOQ1011-56-52 06:40:000.8[facility] AdikhxwOVPSUQTBLM4382-59-04 06:40:00See Note (02/27/16 12:40 AM)[facility] DRAHCAHKBU7249-45-22 06:40:00 Test Item Value Reference Range Interpretation Comments R-time (test code = R-time) 3.8 min 5.0-10.0 [facility] NmiggobMDEZJRLBZP0731-76-61 06:40:00 Test Item Value Reference Range Interpretation Comments K-time (test code = K-time) 0.9 min 1.0-3.0 [facility] KnwrmqpXRVJXQZPLW0632-24-96 06:40:001.23[facility] HermannHEMATOLOGY 2016-02-27 06:40:00 Test Item Value Reference Range Interpretation Comments PT (test code = PT) 15.8 s 12.0-14.7 [facility]IqnpuhvINVTRVLFWE9701-33-06 06:40:00 Test Item Value Reference Range Interpretation Comments PTT (test code = PTT) 25.3 s 22.9-35.8 [facility] JXVDZHRHD6641-87-98 06:40:008.9[facility] FUSXIYITDV2629-53-08 14:51:00 Test Item Value Reference Range Interpretation Comments POC Activated Clotting Time (test code 154 s = POC Activated Clotting Time) [facility] DXOKJTW1815[facility]85-41 09:00:00Negative (02/26/16 3:00 AM) [facility] HermannCHEM MPUYC5609-03-91 08:56:510.4[facility] HermannCHEM PANEL 2016-02-26 08:56:5181[facility] HermannCHEM YIWFV4903-16-04 08:56:5145[facility] HermannCHEM FSXYI5878-41-20 08:56:517.8[facility] HermannCHEM OXORR4050-78-07 08:56:513.7[facility] HermannCHEM XIQOS6356-65-03 08:56:5152[facility] HermannCHEM DSIQE0139-22-01 08:56:510.9[facility] HermannCHEM ZHXPG3995-35-05 08:56:514.1 [facility] HermannCHEM YULRB8537-99-77 08:56:5127[facility] HermannHEMATOLOGY 2016-02-26 08:56:5110.5[facility] GjsudkdUPSYKDTRMK0569-72-65 08:56:51 Test Item Value Reference Range Interpretation Comments Max Amplitude Rapid (test code = Max 68 mm 52-71 Amplitude Rapid) [facility]iscoDtufaykDJDEKEBDJK7785-21-41 08:56:51 Test Item Value Reference Range Interpretation Comments K-time Rapid (test code = K-time 1.1 min 0.6-2.3 Rapid) [facility]iscoPgtgydiNAPTEYTCKB5954-69-46 08:56:51 Test Item Value Reference Range Interpretation Comments Angle Rapid (test code = Angle 76 degrees 64-80 Rapid) [facility] CenterNstgmajBNVDBKEKQK6014-88-99 08:56:51 Test Item Value Reference Range Interpretation Comments Split Point Rapid (test code = Split 0.6 min Point Rapid) [facility] CenterBwglmapYQKQSHZIXA0844-08-94 08:56:51 Test Item Value Reference Range Interpretation Comments R-time Rapid (test code = R-time 0.8 min 0.4-0.7 Rapid) [facility] [id number] 08:56:51 Test Item Value Reference Range Interpretation Comments ACT (TEG) Rapid (test code = ACT (TEG) 121 s 86-118 Rapid) [facility] [id number] 08:56:510.6[facility]
--- NOTE | 2020-08-30 20:49 | RAD REPORT ---
EXAM DESCRIPTION: US - Abdomen Exam Limited - 08/30/2020 8:29 pm CLINICAL HISTORY: EPIGASTRIC PAIN COMPARISON: Abdomen Pelvis W Contrast dated 05/07/2019 FINDINGS: The liver demonstrates diffuse fatty infiltration.No focal liver lesion or intrahepatic bi liary dilatation.Cholelithiasis is present. No gallbladder wall thickening or biliary duct dilatation . IMPRESSION: Cholelithiasis without sonographic evidence of acute cholecystitis.Fatty liver.
[2020-08-30 21:38] LABS: Urine Blood Negative (Negative); Urine Glucose 3+ (Negative); Urine Protein Negative (Negative)
[2020-08-30] MEDS ORDERED: ONDANSETRON 4 MG/2 ML VIAL ONE (21:40)
[2020-08-30] MEDS ORDERED: FAMOTIDINE 20 MG/2 ML VIAL IV ONE (21:40)
[2020-08-30] MEDS ORDERED: NA CHLORIDE 0.9% 500 ML ONE (21:40)
[2020-08-30] MEDS ORDERED: MECLIZINE HCL 12.5 MG TAB ONE (21:40)
[2020-08-30 21:53] LABS: Absolute Lymphocytes (CBC) 3.4 K/uL (0.7-4.9); Basophils % 1.3 % (0-1.3); Hematocrit 38.2 % (36.0-45.0); Lymphocytes % 37.4 % (15.3-44.8); MPV 8.3 fL (7.6-11.3); RBC Red Blood Cell Count 4.23 M/uL (3.86-4.86)
[2020-08-30 22:07] LABS: ALT/SGPT 44 U/L (12-78); AST/SGOT 24 U/L (15-37); Albumin 3.7 g/dL (3.4-5.0); Alkaline Phosphatase 73 U/L (45-117); BUN Blood Urea Nitrogen 16 mg/dL (7-18); Bicarbonate 31 mmol/L (21-32); Bilirubin Direct 0.1 mg/dL (0-0.2); Bilirubin Total 0.3 mg/dL (0.2-1.0); Glucose Level 278 mg/dL (74-106); Lipase 247 U/L (73-393); Magnesium 2.3 mg/dL (1.8-2.4); Potassium 4.2 mmol/L (3.5-5.1); Protein, Total 7.5 g/dL (6.4-8.2); Sodium Level 136 mmol/L (136-145)
[2020-08-30 23:21] LABS: Urine RBC <5 /HPF (NONE SEEN)
[2020-08-30 23:22] LABS: Urine Bacteria <20 /HPF (<20)
--- NOTE | 2020-08-30 23:37 | EDPHYS ---
Physician Documentation [facility] Name: Lorri Dotson Age: 70 yrs Sex: Female : 1950 Arrival Date: 08/30/2020 Time: 17:40 Bed 13 Private MD: ED Physician Attila Whittington HPI: 08/30 20:00 This 70 yrs old Female presents to ER via Ambulatory with complaints of High cp Blood Sugar. 20:00 The patient or guardian reports hyperglycemia. Onset: The symptoms/episode cp began/occurred today. 20:00 Associated signs and symptoms: Pertinent positives: nausea, dizziness, headache, cp Pertinent negatives: vomiting, chest pain, numbness, weakness. 20:00 Current symptoms: In the emergency department the patient's symptoms are unchanged from cp the initial presentation, despite home interventions. Historical: - Allergies: 17:58 No Known Allergies; ca1 - Home Meds: 08/31 00:24 Plavix 75 mg Oral tab 1 tab once daily [Active]; Pepcid 20 mg Oral tab 1 tab once daily bs2 [Active]; metformin 1,000 mg Oral tab 2 times per day [Active]; lovastatin 10 mg Oral tab 1 tab once daily [Active]; lisinopril 20 mg Oral tab 1 tab once daily [Active]; glimepiride 4 mg Oral tab 1 tab once daily [Active]; atorvastatin 20 mg Oral tab 1 tab once daily [Active]; aspirin 81 mg Oral chew 1 tab once daily [Active]; - PMHx: 08/30 17:58 Brain bleed; Diabetes - NIDDM; High Cholesterol; Hypertension; TIA; ca1 - Immunization history:: Client reports receiving the 2nd dose of the Covid vaccine, Client reports receiving the 1st dose of the Covid vaccine, Pneumococcal vaccine is not up to date, Flu vaccine is not up to date. - Social history:: Smoking status: Patient denies any tobacco usage or history of. ROS: 20:05 Constitutional: Negative for body aches, chills, fever, poor PO intake. cp 20:05 Eyes: Negative for injury, pain, redness, and discharge. cp 20:05 ENT: Negative for ear pain, sore throat, difficulty swallowing, difficulty handling cp secretions. 20:05 Cardiovascular: Negative for chest pain, edema, palpitations. 20:05 Respiratory: Negative for cough, shortness of breath, wheezing. 20:05 Abdomen/GI: Positive for nausea, Negative for vomiting, diarrhea, constipation, black/tarry stool, rectal bleeding. 20:05 : Negative for urinary symptoms. 20:05 Skin: Negative for rash. 20:05 Neuro: Positive for dizziness, headache, Negative for altered mental status, loss of consciousness, syncope, weakness. 20:05 All other systems are negative. Exam: 20:10 Constitutional: The patient appears in no acute distress, alert, awake, cp non-diaphoretic, non-toxic, well developed, well nourished. 20:10 Head/Face: Normocephalic, atraumatic. cp 20:10 Eyes: Periorbital structures: appear normal, Pupils: equal, round, and reactive to light and accomodation, Extraocular movements: intact throughout, Conjunctiva: normal, no exudate, no injection, Sclera: no appreciated abnormality, Lids and lashes: appear normal, bilaterally. 20:10 ENT: External ear(s): are unremarkable, Ear canal(s): are normal, clear, TM's: are normal, Nose: is normal, Mouth: Lips: moist, Oral mucosa: moist, Posterior pharynx: is normal, airway is patent, no erythema, no exudate. 20:10 Neck: ROM/movement: is normal, is supple, without pain, no range of motions limitations, no nuchal rigidity. 20:10 Chest/axilla: Inspection: normal, Palpation: is normal, no crepitus, no tenderness. 20:10 Cardiovascular: Rate: normal, Rhythm: regular, Edema: is not appreciated, JVD: is not appreciated. 20:10 Respiratory: the patient does not display signs of respiratory distress, Respirations: normal, no use of accessory muscles, no retractions, labored breathing, is not present, Breath sounds: are clear throughout, no decreased breath sounds, no stridor, no wheezing. 20:10 Abdomen/GI: Inspection: abdomen appears normal, Bowel sounds: active, all quadrants, Palpation: soft, in all quadrants, mild abdominal tenderness, in the epigastric area and right upper quadrant, rebound tenderness, is not appreciated, voluntary guarding, is elicited in the epigastric area. 20:10 Back: CVA tenderness, is absent. 20:10 Skin: no rash present. 20:10 Neuro: Orientation: to person, place \T\ time. Mentation: is normal, Cerebellar function: Romberg testing is negative, Motor: moves all fours, strength is normal, Sensation: is normal. Vital Signs: 17:56 BP 115 / 61; Pulse 83; Resp 16 S; Temp 97(TE); Pulse Ox 98% on R/A; Weight 72.57 kg ca1 (R); Height 4 ft. 5 in. (134.62 cm) (R); Pain 8/10; 17:56 Body Mass Index 40.05 (72.57 kg, 134.62 cm) ca1 MDM: 19:26 Patient medically screened. cp 20:00 Differential diagnosis: DKA, hyperglycemia, CVA, UTI. cp 23:33 Data reviewed: vital signs, nurses notes, lab test result(s), radiologic studies, CT cp scan, ultrasound. Counseling: I had a detailed discussion with the patient and/or guardian regarding: the historical points, exam findings, and any diagnostic results supporting the discharge/admit diagnosis, lab results, radiology results, the need for outpatient follow up, a family practitioner, a general surgeon, to return to the emergency department if symptoms worsen or persist or if there are any questions or concerns that arise at home. Response to treatment: the patient's symptoms have markedly improved after treatment, VSS. Patient reports abdomen pain and dizziness markedly improved. Will discharge to home for continued monitoring. 08/30 18:07 Order name: Glucose, Ancillary Testing; Complete Time: 19:26 EDNY 08/30 20:36 Interpretation: GLUC,ANCIL 280; Reviewed. 08/30 19:53 Order name: Basic Metabolic Panel; Complete Time: 22:46 08/30 22:46 Interpretation: Normal except: GLUC 278; GFR 54. 08/30 19:53 Order name: CBC with Diff; Complete Time: 22:46 08/30 19:53 Order name: Hepatic Function; Complete Time: 22:46 08/30 19:53 Order name: Lipase; Complete Time: 22:46 08/30 19:53 Order name: Ketone, Serum; Complete Time: 22:46 08/30 19:53 Order name: Urine Microscopic Only; Complete Time: 23:31 08/30 23:32 Interpretation: Abnormal: UWBC 10-20. cp 08/30 19:54 Order name: US Abdomen Limited: RUQ/epigastric; Complete Time: 21:29 cp 08/30 19:55 Order name: Magnesium cp 08/30 19:55 Order name: Magnesium; Complete Time: 22:46 EDMS 08/30 21:38 Order name: Urine Dipstick-Ancillary; Complete Time: 21:56 EDMS 08/30 21:56 Interpretation: Normal except: UGLUC 3+; UKET Trace. cp 08/30 21:57 Order name: CT Head Brain wo Cont cp 08/30 23:23 Order name: Urine Culture EDMS 08/30 19:53 Order name: IV Saline Lock; Complete Time: 21:49 cp 08/30 19:53 Order name: Labs collected and sent; Complete Time: 21:49 cp 08/30 19:53 Order name: Urine Dipstick-Ancillary (obtain specimen); Complete Time: 22:01 cp 08/30 23:20 Order name: Misc. Order: ambulate patient; Complete Time: 23:31 cp Administered Medications: 21:00 Drug: NS 0.9% 500 ml Route: IV; Rate: bolus; Site: right antecubital; bs2 22:40 Follow up: IV Status: Completed infusion; IV Intake: 500ml bs2 21:00 Drug: Zofran (Ondansetron) 4 mg Route: IVP; Site: right antecubital; bs2 22:01 Follow up: Response: No adverse reaction bs2 21:00 Drug: Pepcid (famotidine) 20 mg Route: IVP; Site: right antecubital; bs2 22:01 Follow up: Response: No adverse reaction bs2 21:00 Drug: Meclizine 25 mg Route: PO; bs2 22:01 Follow up: Response: No adverse reaction bs2 23:36 Drug: Rocephin - (cefTRIAXone) 1 grams Route: IVPB; Infused Over: 30 mins; Site: right ld1 antecubital; 23:36 Follow up: Response: No adverse reaction; IV Status: Completed infusion ld1 Disposition: 08/31 06:46 Co-signature as Attending Physician, Attila Whittington MD. rn Disposition Summary: 08/30/20 23:37 Discharge Ordered Location: Home cp Problem: new cp Symptoms: have improved cp Condition: Stable cp Diagnosis - Other cholelithiasis without obstruction cp - Dizziness and giddiness cp - UTI/ Urinary tract infection, site not specified cp - Diabetes mellitus due to underlying condition with hyperglycemia cp Followup: cp - With: Placido Adair MD - When: 2 - 3 days - Reason: cholelithiasis Followup: cp - With: Private Physician - When: 2 - 3 days - Reason: hyperglycemia Discharge Instructions: - Discharge Summary Sheet cp - Dizziness cp - Urinary Tract Infection, Adult cp - Cholelithiasis cp - Type 2 Diabetes Mellitus, Self Care, Adult cp Forms: - Medication Reconciliation Form cp - Thank You Letter cp - Antibiotic Education cp - Prescription Opioid Use cp Prescriptions: - Cipro 500 mg Oral Tablet - take 1 tablet by ORAL route every 12 hours for 7 days; 14 tablet; Refills: 0, cp Product Selection Permitted Signatures: Dispatcher [employer] EDAttila Pan MD MD rn Leonel Ramirez, ALEJANDRINA TINOCO cp Sharda Mensah RN RN ca1 Nneka Motta RN RN ld1 Nancy Naik RN RN bs2 Corrections: (The following items were deleted from the chart) 17:12 07/21 20:00 Associated signs and symptoms: Pertinent positives: dizziness, Pertinent cp negatives: chest pain, cp
--- NOTE | 2020-08-30 23:37 | ER ---
Nurse's Notes [facility] Name: Lorri Dotson Age: 70 yrs Sex: Female : 1950 Arrival Date: 08/30/2020 Time: 17:40 Bed 13 Private MD: Diagnosis: Other cholelithiasis without obstruction;Dizziness and giddiness;UTI/ Urinary tract infection, site not specified;Diabetes mellitus due to underlying condition with hyperglycemia Presentation: 08/30 17:56 Chief complaint: Patient states: BGL this morning was 400. Reports headache and nausea. ca1 BGL in Triage 280. Coronavirus screen: Client denies travel out of the [place] in the last 14 days. nausea, Client presents with at least one sign or symptom that may indicate coronavirus-19. Standard/surgical mask placed on the client. Provider contacted for isolation considerations. Ebola Screen: Patient negative for fever greater than or equal to 101.5 degrees Fahrenheit, and additional compatible Ebola Virus Disease symptoms Patient denies exposure to infectious person. Patient denies travel to an Ebola-affected area in the 21 days before illness onset. No symptoms or risks identified at this time. Initial Sepsis Screen: Does the patient meet any 2 criteria? No. Patient's initial sepsis screen is negative. Does the patient have a suspected source of infection? No. Patient's initial sepsis screen is negative. Risk Assessment: Do you want to hurt yourself or someone else? Patient reports no desire to harm self or others. Onset of symptoms was August 30, 2020. 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 ca1 Historical: - Allergies: 17:58 No Known Allergies; ca1 - Home Meds: 08/31 00:24 Plavix 75 mg Oral tab 1 tab once daily [Active]; Pepcid 20 mg Oral tab 1 tab once daily bs2 [Active]; metformin 1,000 mg Oral tab 2 times per day [Active]; lovastatin 10 mg Oral tab 1 tab once daily [Active]; lisinopril 20 mg Oral tab 1 tab once daily [Active]; glimepiride 4 mg Oral tab 1 tab once daily [Active]; atorvastatin 20 mg Oral tab 1 tab once daily [Active]; aspirin 81 mg Oral chew 1 tab once daily [Active]; - PMHx: 08/30 17:58 Brain bleed; Diabetes - NIDDM; High Cholesterol; Hypertension; TIA; ca1 - Immunization history:: Client reports receiving the 2nd dose of the Covid vaccine, Client reports receiving the 1st dose of the Covid vaccine, Pneumococcal vaccine is not up to date, Flu vaccine is not up to date. - Social history:: Smoking status: Patient denies any tobacco usage or history of. Screenin:30 Abuse screen: Denies threats or abuse. Denies injuries from another. Nutritional bs2 screening: No deficits noted. Tuberculosis screening: No symptoms or risk factors identified. Fall Risk None identified. Assessment: 19:30 General: Appears in no apparent distress. comfortable, obese, well groomed, well bs2 developed, well nourished, Behavior is calm, cooperative, appropriate for age. Pain: Complains of pain in epigastric area Pain currently is 2 out of 10 on a pain scale. Neuro: Reports dizziness, headache symptoms where more this morning when she woke up and she had a 400 blood sugar at home. Cardiovascular: No deficits noted. Respiratory: No deficits noted. GI: No deficits noted. : No signs and/or symptoms were reported regarding the genitourinary system. EENT: No signs and/or symptoms were reported regarding the EENT system. Derm: No signs and/or symptoms reported regarding the dermatologic system. Musculoskeletal: No signs and/or symptoms reported regarding the musculoskeletal system. Vital Signs: 17:56 BP 115 / 61; Pulse 83; Resp 16 S; Temp 97(TE); Pulse Ox 98% on R/A; Weight 72.57 kg ca1 (R); Height 4 ft. 5 in. (134.62 cm) (R); Pain 8/10; 17:56 Body Mass Index 40.05 (72.57 kg, 134.62 cm) ca1 ED Course: 17:40 Patient arrived in ED. mr 17:57 Triage completed. ca1 17:58 Arm band placed on right wrist. ca1 19:18 Leonel Ramirez PA is PHCP. cp 19:18 Attila Whittington MD is Attending Physician. cp 19:30 Patient has correct armband on for positive identification. Bed in low position. Call bs2 light in reach. Side rails up X 1. Pulse ox on. NIBP on. Door closed. Noise minimized. Warm blanket given. 19:30 No provider procedures requiring assistance completed. bs2 20:28 US Abdomen Limited: RUQ/epigastric In Process Unspecified. EDMS 21:12 Nancy Naik, RN is Primary Nurse. bs2 21:45 Inserted saline lock: 20 gauge in right antecubital area, using aseptic technique. bs2 21:49 Basic Metabolic Panel Sent. bs2 21:49 CBC with Diff Sent. bs2 21:49 Hepatic Function Sent. bs2 21:49 Lipase Sent. bs2 22:02 Magnesium Sent. bs2 22:02 Magnesium Sent. bs2 22:35 CT Head Brain wo Cont In Process Unspecified. EDMS 23:35 Placido Adair MD is Referral Physician. cp 23:50 IV discontinued, intact, bleeding controlled, No redness/swelling at site. bs2 08/31 00:28 Urine Culture Sent. bs2 Administered Medications: 08/30 21:00 Drug: NS 0.9% 500 ml Route: IV; Rate: bolus; Site: right antecubital; bs2 22:40 Follow up: IV Status: Completed infusion; IV Intake: 500ml bs2 21:00 Drug: Zofran (Ondansetron) 4 mg Route: IVP; Site: right antecubital; bs2 22:01 Follow up: Response: No adverse reaction bs2 21:00 Drug: Pepcid (famotidine) 20 mg Route: IVP; Site: right antecubital; bs2 22:01 Follow up: Response: No adverse reaction bs2 21:00 Drug: Meclizine 25 mg Route: PO; bs2 22:01 Follow up: Response: No adverse reaction bs2 23:36 Drug: Rocephin - (cefTRIAXone) 1 grams Route: IVPB; Infused Over: 30 mins; Site: right ld1 antecubital; 23:36 Follow up: Response: No adverse reaction; IV Status: Completed infusion ld1 Intake: 22:40 IV: 500ml; Total: 500ml. bs2 Outcome: 23:37 Discharge ordered by . cp 23:50 Discharged to home ambulatory. bs2 23:50 Condition: improved 23:50 Discharge instructions given to patient, Instructed on discharge instructions, follow up and referral plans. medication usage, Demonstrated understanding of instructions, follow-up care, medications, Prescriptions given X 1. 08/31 00:27 Patient left the ED. bs2 Signatures: Dispatcher [employer] EDFL Sarai Zeng mr Ashley, Leonel, ALEJANDRINA Mensah, Sharda, RN RN ca1 Nneka Motta RN RN ld1 Nancy Naik RN RN bs2
[2020-08-30] MEDS ORDERED: CEFTRIAXONE/SWI 1gm 1 GM/10 ML SYR ONE (23:56)
[2020-08-31 01:16] VITALS: BP 115/61; TEMP 97; O2SAT 98
--- NOTE | 2020-08-31 14:31 | RAD REPORT ---
EXAM DESCRIPTION: CT - Head Brain Wo Cont - 08/31/2020 6:46 am CLINICAL HISTORY: 70 years Female Dizziness;Headache COMPARISON: CT head without contrast dated 11/15/2019 Technique: Contiguous axial images of the brain were obtained without the administration of intrave nous contrast.This exam was performed according to our departmental dose-optimization program which i ncludes use of Automated Exposure Control, adjustment of the mA and/or kV according to patient size a nd/or use of iterative reconstruction technique. DLP: 838 mGy*cm FINDINGS: Brain: Unchanged right frontal postsurgical changes of encephalomalacia. No acute intracranial hemorr sai. No extra-axial collection. No mass effect or herniation. Unchanged prominence of the sulci an d cisterns. Encephalomalacia and corticated calcification the left frontal lobe. Confluent periventri cular and subcortical white matter hypodensity is noted. Ventricles: No hydrocephalus. Globes and orbits: No acute abnormality. Bones: Right frontal craniotomy. No acute osseous finding Paranasal sinuses: Paranasal sinuses are clear. Mastoid air cells: Well pneumatized. Soft tissues: Within normal limits IMPRESSION: No acute intracranial hemorrhage, hydrocephalus or herniation. Right frontal post surgical changes. Underlying encephalomalacia. Cerebral volume loss, chronic small vessel ischemic changes and left frontal encephalomalacia. Consid er MRI brain for further evaluation. Electronically signed by: Javed Rivas DO 08/30/2020 10:54 PM CDT Due to temporary technical issues with the PACS/Fluency reporting system, reports are being signed by the in house radiologists without review as a courtesy to insure prompt reporting. The interpreting radiologist is fully responsible for the content of the report.
== END 2020-08-31 00:27 | disposition home or self-care (01) ==
LOC: ER 17:38
DX: E11.65 Type 2 diabetes mellitus with hyperglycemia (principal); N39.0 Urinary tract infection, site not specified; K80.80 Other cholelithiasis without obstruction; I10 Essential (primary) hypertension; Z79.01 Long term (current) use of anticoagulants; Z79.82 Long term (current) use of aspirin
CPT/HCPCS: 96361; 87088; 85025; 87086; 80048; 36415; 82010; 83735; 82947; 80076; 83690; 70450; 76705; 96375; 96374; 99284; J0696; J7040; J2405; 81003; 81015

== ENCOUNTER 2020-12-10 12:06 | Emergency (ER) | payer OTHER ==
[2020-12-10] MEDS ORDERED: PROMETHAZINE-DM 5 ML OSYR ONE (14:22)
[2020-12-10] MEDS ORDERED: PROMETH/COD 6.25/10MG SYRUP 5ML ONE (14:23)
--- NOTE | 2020-12-10 15:01 | RAD REPORT ---
EXAM DESCRIPTION: RAD - Chest Single View - 12/10/2020 1:47 pm CLINICAL HISTORY: cough/chest pain with cough COMPARISON: Portable September 2019 TECHNIQUE: AP portable chest image was obtained 12/10/2020 1:47 pm . FINDINGS: Lung volumes are low with no focal abnormality. No failure or volume overload. Heart and v asculature are normal. No measurable pleural effusion and no pneumothorax. No acute bony abnormality seen. No acute aortic findings suspected. IMPRESSION: No acute cardiopulmonary process. No significant change from comparison study.
--- NOTE | 2020-12-10 15:22 | ER ---
Nurse's Notes [facility] Name: Lorri Dotson Age: 70 yrs Sex: Female : 1950 Arrival Date: 12/10/2020 Time: 12:08 Bed 7 Private MD: Diagnosis: Cough;Unspecified chronic bronchitis Presentation: 12/10 12:20 Chief complaint: Patient states: painful cough with small amount of phlegm that began 2 ss months ago. Pt reports she had a Covid test which was negative and also a sputum culture which did not show bacteria. Coronavirus screen: Client denies travel out of the [place] in the last 14 days. Ebola Screen: Patient denies exposure to infectious person. Patient denies travel to an Ebola-affected area in the 21 days before illness onset. Initial Sepsis Screen: Does the patient meet any 2 criteria? No. Patient's initial sepsis screen is negative. Does the patient have a suspected source of infection? No. Patient's initial sepsis screen is negative. Risk Assessment: Do you want to hurt yourself or someone else? Patient reports no desire to harm self or others. Onset of symptoms was September 2020. 12:20 Method Of Arrival: Ambulatory ss 12:20 Acuity: SARAI 3 ss Historical: - Allergies: 12:22 No Known Allergies; ss - PMHx: 12:22 Diabetes - NIDDM; High Cholesterol; Hypertension; TIA; Brain bleed; ss - Immunization history:: Adult Immunizations up to date. - Social history:: Smoking status: Patient denies any tobacco usage or history of. Screenin:40 Abuse screen: Denies threats or abuse. Nutritional screening: No deficits noted. aa5 Tuberculosis screening: No symptoms or risk factors identified. Fall Risk None identified. Assessment: 12:40 General: Appears comfortable, Behavior is calm, cooperative. Pain: Complains of pain in aa5 left scapular area, right scapular area, thoracic area and chest only with cough Is episodic. Neuro: Level of Consciousness is awake, alert, obeys commands, Oriented to person, place, time, situation. Cardiovascular: Patient's skin is warm and dry. Respiratory: Reports cough that is productive at times with yellowish sputum. Pt reports cough mostly at night. Airway is patent Respiratory effort is even, unlabored, Respiratory pattern is regular, symmetrical. GI: Abdomen is round non-distended, Patient currently denies diarrhea, nausea, vomiting. : No signs and/or symptoms were reported regarding the genitourinary system. EENT: No signs and/or symptoms were reported regarding the EENT system. Derm: Skin is pink, warm \T\ dry. Musculoskeletal: Range of motion: intact in all extremities. 13:28 Reassessment: Patient is alert, oriented x 3, equal unlabored respirations, skin aa5 warm/dry/pink. 14:27 Reassessment: Patient is alert, oriented x 3, equal unlabored respirations, skin aa5 warm/dry/pink. Patient states feeling better. Awaiting x-ray result, pt given cup of water. . 15:33 Reassessment: Patient is alert, oriented x 3, equal unlabored respirations, skin aa5 warm/dry/pink. Vital Signs: 12:20 Resp 16; Weight 80.74 kg; Height 4 ft. 5 in. (134.62 cm); Pain 10/10; ss 12:23 Temp 97.6(TE); ss 12:24 BP 123 / 50; Pulse 88; Pulse Ox 95% on R/A; ss 14:00 BP 116 / 60; Pulse 88; Resp 18 S; Pulse Ox 96% on R/A; aa5 15:00 BP 118 / 59; Pulse 87; Resp 16 S; Pulse Ox 95% on R/A; aa5 12:20 Body Mass Index 44.55 (80.74 kg, 134.62 cm) ss ED Course: 12:08 Patient arrived in ED. as 12:15 Esvin Crum MD is Attending Physician. kdr 12:22 Triage completed. ss 12:22 Arm band placed on right wrist. ss 12:38 Leelee Khalil, ELIAS is Primary Nurse. aa5 12:40 Patient has correct armband on for positive identification. Bed in low position. Call aa5 light in reach. Side rails up X 1. Pulse ox on. NIBP on. 13:46 Chest Single View XRAY In Process Unspecified. EDMS 15:33 No provider procedures requiring assistance completed. Patient did not have IV access aa5 during this emergency room visit. Administered Medications: 13:25 CANCELLED (Physician Discretion): Promethazine-Dextromethorphan Liquid 5 ml PO once ss 13:28 Drug: Phenergan (promethazine) -Codeine Liquid (6.25mg - 10mg / 5mL) 5 ml Route: PO; aa5 14:27 Follow up: Response: No adverse reaction; Marked relief of symptoms aa5 Outcome: 15:21 Discharge ordered by . kdr 15:33 Discharged to home ambulatory, with family. aa5 15:33 Condition: improved 15:33 Discharge instructions given to patient, Instructed on discharge instructions, follow up and referral plans. medication usage, Demonstrated understanding of instructions, follow-up care, medications, Prescriptions given X 2. 15:34 Patient left the ED. aa5 Signatures: Dispatcher [employer] EDMS Esvin Crum MD MD kdr Stacey Adair Audri RN RN aa5 Elba Davis RN RN ss
--- NOTE | 2020-12-10 15:22 | EDPHYS ---
Physician Documentation [facility] Name: Lorri Dotson Age: 70 yrs Sex: Female : 1950 Arrival Date: 12/10/2020 Time: 12:08 Bed 7 Private MD: ED Physician Esvin Crum HPI: 12/10 17:15 This 70 yrs old Female presents to ER via Ambulatory with complaints of Cough. kdr 17:15 The patient or guardian reports cough, that is intermittent, described as mild, with kdr productive sputum, that is yellow, difficulty breathing, hoarse voice. Onset: The symptoms/episode began/occurred gradually, 2 month(s) ago. Severity of symptoms: At their worst the symptoms were mild, moderate, just prior to arrival, in the emergency department the symptoms have improved, mildly. Modifying factors: The symptoms are alleviated by nothing, the symptoms are aggravated by Coughing. Associated signs and symptoms: The patient has no apparent associated signs or symptoms. The patient has not experienced similar symptoms in the past. The patient has been recently seen by a physician: the patient's primary care provider, Patient was seen in a clinic about 10 days ago was given cough medication however that is not working to manage her cough. She continues to have pain with coughing primarily. She is producing a yellow phlegm but otherwise no hemoptysis. Historical: - Allergies: 12:22 No Known Allergies; ss - PMHx: 12:22 Diabetes - NIDDM; High Cholesterol; Hypertension; TIA; Brain bleed; ss - Immunization history:: Adult Immunizations up to date. - Social history:: Smoking status: Patient denies any tobacco usage or history of. ROS: 17:15 Constitutional: Negative for fever, chills, and weight loss, Eyes: Negative for injury, kdr pain, redness, and discharge, Neck: Negative for injury, pain, and swelling, Cardiovascular: Negative for chest pain, palpitations, and edema, Respiratory: Negative for shortness of breath, cough, wheezing, and pleuritic chest pain, Abdomen/GI: Negative for abdominal pain, nausea, vomiting, diarrhea, and constipation, Back: Negative for injury and pain, : Negative for injury, bleeding, discharge, and swelling, MS/Extremity: Negative for injury and deformity, Skin: Negative for injury, rash, and discoloration, Neuro: Negative for headache, weakness, numbness, tingling, and seizure activity. Psych: Negative for depression, anxiety, suicide ideation, homicidal ideation, and hallucinations, Allergy/Immunology: Negative for hives, rash, and allergies, Endocrine: Negative for neck swelling, polydipsia, polyuria, polyphagia, and marked weight changes, Hematologic/Lymphatic: Negative for swollen nodes, abnormal bleeding, and unusual bruising. Exam: 17:15 Constitutional: This is a well developed, well nourished patient who is awake, alert, kdr and in no acute distress. Head/Face: Normocephalic, atraumatic. Eyes: Pupils equal round and reactive to light, extra-ocular motions intact. Lids and lashes normal. Conjunctiva and sclera are non-icteric and not injected. Cornea within normal limits. Periorbital areas with no swelling, redness, or edema. Neck: Trachea midline, no thyromegaly or masses palpated, and no cervical lymphadenopathy. Supple, full range of motion without nuchal rigidity, or vertebral point tenderness. No Meningismus. Chest/axilla: Normal chest wall appearance and motion. Nontender with no deformity. No lesions are appreciated. Cardiovascular: Regular rate and rhythm with a normal S1 and S2. No gallops, murmurs, or rubs. Normal PMI, no JVD. No pulse deficits. Respiratory: Lungs have equal breath sounds bilaterally, clear to auscultation and percussion. No rales, rhonchi or wheezes noted. No increased work of breathing, no retractions or nasal flaring. Abdomen/GI: Soft, non-tender, with normal bowel sounds. No distension or tympany. No guarding or rebound. No evidence of tenderness throughout. Back: No spinal tenderness. No costovertebral tenderness. Full range of motion. Skin: Warm, dry with normal turgor. Normal color with no rashes, no lesions, and no evidence of cellulitis. MS/ Extremity: Pulses equal, no cyanosis. Neurovascular intact. Full, normal range of motion. Neuro: Awake and alert, GCS 15, oriented to person, place, time, and situation. Cranial nerves II-XII grossly intact. Motor strength 5/5 in all extremities. Sensory grossly intact. Cerebellar exam normal. Normal gait. Psych: Awake, alert, with orientation to person, place and time. Behavior, mood, and affect are within normal limits. Vital Signs: 12:20 Resp 16; Weight 80.74 kg; Height 4 ft. 5 in. (134.62 cm); Pain 10/10; ss 12:23 Temp 97.6(TE); ss 12:24 BP 123 / 50; Pulse 88; Pulse Ox 95% on R/A; ss 14:00 BP 116 / 60; Pulse 88; Resp 18 S; Pulse Ox 96% on R/A; aa5 15:00 BP 118 / 59; Pulse 87; Resp 16 S; Pulse Ox 95% on R/A; aa5 12:20 Body Mass Index 44.55 (80.74 kg, 134.62 cm) ss MDM: 15:21 Patient medically screened. kdr 17:15 Data reviewed: vital signs, nurses notes, lab test result(s), EKG, radiologic studies. kdr 12/10 12:56 Order name: Chest Single View XRAY; Complete Time: 15:20 aa5 Administered Medications: 13:25 CANCELLED (Physician Discretion): Promethazine-Dextromethorphan Liquid 5 ml PO once ss 13:28 Drug: Phenergan (promethazine) -Codeine Liquid (6.25mg - 10mg / 5mL) 5 ml Route: PO; aa5 14:27 Follow up: Response: No adverse reaction; Marked relief of symptoms aa5 Disposition Summary: 12/10/20 15:21 Discharge Ordered Location: Home kdr Problem: new kdr Symptoms: have improved kdr Condition: Stable kdr Diagnosis - Cough kdr - Unspecified chronic bronchitis kdr Followup: kdr - With: Private Physician - When: 2 - 3 days - Reason: If symptoms return, Further diagnostic work-up, Recheck today's complaints, Continuance of care, Re-evaluation by your physician Discharge Instructions: - Discharge Summary Sheet kdr - Chronic Bronchitis, Adult kdr Forms: - Medication Reconciliation Form kdr - Thank You Letter kdr - Prescription Opioid Use kdr Prescriptions: - Promethazine VC-Codeine 6.25-5-10 mg/5 mL Oral syrup - take 5 milliliter by ORAL route every 4-6 hours As needed as needed, not to kdr exceed 30 mL in 24 hours; 150 milliliter; Refills: 0, Product Selection Permitted - Cyclobenzaprine 5 mg Oral Tablet - take 1 tablet by ORAL route 3 times per day As needed; 15 tablet; Refills: 0, kdr Product Selection Permitted Signatures: Dispatcher [employer] EDIN Esvin Crum MD MD kdr Calderon, Audri, RN RN aa5 Elba Davis RN RN ss Corrections: (The following items were deleted from the chart) 13:25 13:23 Promethazine-Dextromethorphan Liquid 5 ml PO once ordered. kdr ss
[2020-12-10 15:43] VITALS: TEMP 97.6
[2020-12-10 15:47] VITALS: BP 118/59; O2SAT 95
== END 2020-12-10 15:34 | disposition home or self-care (01) ==
LOC: ER 12:06
DX: J42 Unspecified chronic bronchitis (principal); I10 Essential (primary) hypertension; E11.9 Type 2 diabetes mellitus without complications; Z86.73 Personal history of transient ischemic attack (TIA), and cerebral infarction without residual deficits
CPT/HCPCS: 71045; 99284

== ENCOUNTER 2021-01-07 10:40 | Emergency (ER) | payer OTHER ==
--- OUTSIDE RECORDS SUMMARY | 2021-01-07 10:43 | XMS REPORT | Continuity of Care Document ---
:1950 Author Organization [facility] t Address [address] [place] [address] Care Team Providers Name Role Phone Srini FUENTES Attending Clinician Gideon FUENTES Attending Clinician GIDEON Attending Clinician Unavailable Doctor Unassigned, Name Attending Clinician Unavailable Marjorie PAULA III Attending Clinician Unavailable Gideon FUENTES Admitting Clinician GIDEON Admitting Clinician Unavailable Payers Payer Name Policy Type Policy Number Effective Date Expiration Date S [facility] [id number] 2016 00:00:00 [place] [id number] 2019 00:00:00 [facility] [id number] 2017 DUAL COMPLETE 00:00:00 Problems This patient has no known problems. Allergies, Adverse Reactions, Alerts Allergy Allergy Status Severity Reaction(s) Onset Inactive Treating Comm ents Source Name Type Date Date Clinician NO KNOWN Drug Active [facility]ER[facility] Class ity of S [facility] Medications This patient has no known medications. Procedures This patient has no known procedures. Encounters Start End Encounter Admission Attending Care Care Encounter Source Date/Time Date/Time Type Type Clinicians Facility Department ID 2019-04-04 2019-04-05 Emergency Bryan Milligan [facility] [id number] 05:56:22 14:32:00 Corby Dickinson [id number] [place] [id number] [place] [address] [id number] 2019-04-04 2019-04-04 Outpatient X GIDEON [facility] [place] [id number] [facility] 05:56:22 05:56:22 CORBY hector [facility] 2019-04-04 2019-04-04 Orders Doctor MARY ANN [id number] 00:00:00 00:00:00 Only Unassigned, FOREIGN [id number] [facility] [id number] 2018-04-04 2018-04-04 Emergency X CHAI JOHNSON [facility] ERT [id number] [facility] 15:49:54 16:41:00 BABR [facility] Results Test Description Test Time Test Comments Results Result Sourc e Comments SCR MAMM 2017-12-16 - SCR MAMM BILATERAL BILATERAL DAVE 15:55:39 DAVE CAD CAD DIGITAL DIGITALBILATERAL DIGITAL SCREENING MAMMOGRAM 3D/2D WITH CAD: 12/10/2017CLINICAL: Asymptomatic. Digital breast tomosynthesis was performed in addition to routine CC and MLO views. Current mammographic images were evaluated by either a Medical Simulation M-Vu or a [employer] ImageChecker CAD (computer aided detection system). No [...] mammography in one year. Deshaun jacinto/jose:12/16/2017 15:55:39 Foot Cutter: Nneka Kahn MM, [facility] Mammographyletter sent: BIRADS 1-2 Normal Mammogram BI-RADS: 2 Benign
[2021-01-07] MEDS ORDERED: HYDROCODONE/CHLORPHEN 5 ML/OSYR ONE (11:26)
[2021-01-07 12:35] LABS: SARS-COV-2 RT PCR NEGATIVE (NEGATIVE)
--- NOTE | 2021-01-07 12:53 | RAD REPORT ---
EXAM DESCRIPTION: RAD - Chest Pa And Lat (2 Views) - 01/07/2021 12:07 pm CLINICAL HISTORY: COUGH Chest pain. COMPARISON: Chest Single View dated 12/10/2020; Chest Single View dated 10/03/2019; Chest Single View dated 05/07/2019; Chest Pa And Lat (2 Views) dated 02/11/2019 FINDINGS: Interstitial lung markings are mildly prominent which may represent a viral infection. The heart is upper limit normal in size. No displaced fractures.
--- NOTE | 2021-01-07 13:02 | ER ---
Nurse's Notes [facility] Name: Lorri Dotson Age: 70 yrs Sex: Female : 1950 Arrival Date: 01/07/2021 Time: 10:42 Bed 5 Private MD: Diagnosis: Cough;Acute pharyngitis, unspecified Presentation: 01/07 10:55 Chief complaint: Patient states: had a cough X 2 weeks , was put on medicine (abx) but iw the cough is back , also having chest pain, has phlegm with cough , only has chest pain when she coughs and has pain to left back area. 10:55 Method Of Arrival: Ambulatory iw 10:57 Coronavirus screen: Client presents with at least one sign or symptom that may indicate iw coronavirus-19. Ebola Screen: Patient negative for fever greater than or equal to 101.5 degrees Fahrenheit, and additional compatible Ebola Virus Disease symptoms Patient denies exposure to infectious person. Patient denies travel to an Ebola-affected area in the 21 days before illness onset. No symptoms or risks identified at this time. Risk Assessment: Do you want to hurt yourself or someone else? Patient reports no desire to harm self or others. 10:57 Initial Sepsis Screen: Does the patient meet any 2 criteria? No. Patient's initial iw sepsis screen is negative. Does the patient have a suspected source of infection? No. Patient's initial sepsis screen is negative. Onset of symptoms was December 24, 2020. 10:57 Acuity: SARAI 3 iw Triage Assessment: 11:00 General: Appears uncomfortable, Behavior is cooperative, appropriate for age, anxious. bp Pain: Complains of pain in neck. EENT: No deficits noted. Neuro: Level of Consciousness is obeys commands, Oriented to Appropriate for age. Cardiovascular: Rhythm is sinus rhythm. Respiratory: Reports shortness of breath Breath sounds are clear bilaterally. GI: No signs and/or symptoms were reported involving the gastrointestinal system. : No signs and/or symptoms were reported regarding the genitourinary system. Derm: No deficits noted. Musculoskeletal: No deficits noted. Historical: - Allergies: 10:58 No Known Allergies; iw - Home Meds: 10:58 aspirin 81 mg Oral chew 1 tab once daily [Active]; atorvastatin 20 mg Oral tab 1 tab iw once daily [Active]; glimepiride 4 mg Oral tab 1 tab once daily [Active]; lisinopril 20 mg Oral tab 1 tab once daily [Active]; lovastatin 10 mg Oral tab 1 tab once daily [Active]; metformin 1,000 mg Oral tab 2 times per day [Active]; Pepcid 20 mg Oral tab 1 tab once daily [Active]; Plavix 75 mg Oral tab 1 tab once daily [Active]; - PMHx: 10:58 Brain bleed; Diabetes - NIDDM; High Cholesterol; Hypertension; TIA; iw - Immunization history:: Client reports receiving the 2nd dose of the Covid vaccine. - Social history:: Smoking status: Patient denies any tobacco usage or history of. Screenin:00 Abuse screen: Denies threats or abuse. Denies injuries from another. Nutritional bp screening: No deficits noted. Tuberculosis screening: No symptoms or risk factors identified. Fall Risk None identified. Assessment: 11:00 General: SEE TRIAGE NOTE. bp 12:00 Reassessment: PT TO RAD. bp 13:34 Reassessment: PT D/C HOME, DX WITH BRONCHITIS AND PHARYNGITIS. Pain: Denies pain. bp Vital Signs: 10:57 BP 109 / 61; Pulse 77; Resp 18 S; Temp 98.4; Pulse Ox 95% on R/A; Weight 77.11 kg; iw Height 5 ft. 4 in. (162.56 cm); 12:00 BP 117 / 87; Pulse 70; Resp 17; Pulse Ox 95% ; bp 13:34 BP 111 / 61; Pulse 64; Resp 17; Pulse Ox 97% ; bp 10:57 Body Mass Index 29.18 (77.11 kg, 162.56 cm) iw ED Course: 10:42 Patient arrived in ED. as 10:58 Triage completed. iw 10:59 Arm band placed on. iw 11:00 Pool Baez NP is PHCP. pm1 11:00 Rhiannon Finney MD is Attending Physician. pm1 11:00 Patient has correct armband on for positive identification. Bed in low position. Call bp light in reach. Side rails up X2. Pulse ox on. NIBP on. 11:23 Luis Patel, ELIAS is Primary Nurse. bp 12:06 Chest Pa And Lat (2 Views) XRAY In Process Unspecified. EDMS 13:34 No provider procedures requiring assistance completed. Patient did not have IV access bp during this emergency room visit. Patient maintains SpO2 saturation greater than 95% on room air. Administered Medications: 11:25 Drug: Tussionex Pennkinetic ER (chlorpheniramine-hydrocodone) Suspension 5 ml Route: PO;bp 13:37 Follow up: Response: No adverse reaction; Pain is decreased bp Outcome: 13:01 Discharge ordered by MD. pm1 13:34 Discharged to home ambulatory, with family. bp 13:34 Condition: stable 13:34 Discharge instructions given to patient, Instructed on discharge instructions, follow up and referral plans. medication usage, Demonstrated understanding of instructions, follow-up care, medications, Prescriptions given X 2. 13:38 Patient left the ED. bp Signatures: Dispatcher [employer] EDMS Stacey Adair Irene, RN RN iw Pool Baez NP MANAGER BABY pm1 Luis Patel RN RN bp Corrections: (The following items were deleted from the chart) 10:58 10:55 Chief complaint: Patient states: had a cough X 2 weeks , was put on medicine iw (abx) but the cough is back , also having chest pain, has phlegm with cough iw 11:43 11:33 General: Appears uncomfortable, Behavior is cooperative, appropriate for age, bp anxious, bp 11:43 11:33 Pain: Complains of pain in neck bp bp 11:43 11:33 EENT: No deficits noted. bp bp 11:43 11:33 Neuro: Level of Consciousness is obeys commands, Oriented to Appropriate for age bp bp 11:43 11:33 Cardiovascular: Rhythm is sinus rhythm bp bp 11:46 11:33 Respiratory: Reports shortness of breath Breath sounds are clear bilaterally. bp bp 11:46 11:33 GI: No signs and/or symptoms were reported involving the gastrointestinal system. bp bp 11:46 11:33 : No signs and/or symptoms were reported regarding the genitourinary system. bp bp 11:46 11:33 Derm: No deficits noted. bp bp 11:46 11:33 Musculoskeletal: No deficits noted. bp bp 11:46 10:30 Neuro: Level of Consciousness is obeys commands, Oriented to Appropriate for age bp bp 11:46 10:30 General: Appears uncomfortable, Behavior is cooperative, appropriate for age, bp anxious, bp 11:46 10:30 Pain: Complains of pain in neck bp bp 11:46 10:30 EENT: No deficits noted. bp bp 11:46 10:30 Cardiovascular: Rhythm is sinus rhythm bp bp
--- NOTE | 2021-01-07 13:02 | EDPHYS ---
Physician Documentation [facility] Name: Lorri Dotson Age: 70 yrs Sex: Female : 1950 Arrival Date: 01/07/2021 Time: 10:42 Bed 5 Private MD: ED Physician Rhiannon Finney HPI: 01/07 11:15 This 70 yrs old Female presents to ER via Ambulatory with complaints of Cough. pm1 11:15 The patient or guardian reports cough, with productive sputum, that is yellow. Onset: pm1 The symptoms/episode began/occurred 2 week(s) ago. Severity of symptoms: in the emergency department the symptoms are actually worse. Modifying factors: The symptoms are alleviated by nothing, the symptoms are aggravated by nothing. Associated signs and symptoms: Pertinent positives: chest pain, with cough, sore throat, Headache, Pertinent negatives: diarrhea, rhinorrhea, vomiting, Shortness of breath, body aches. The patient has been recently seen at the [facility] Emergency Department, for similar complaints X-rays were performed, 1 month ago and diagnosed with URI. Prescribed cough medications. Historical: - Allergies: 10:58 No Known Allergies; iw - Home Meds: 10:58 aspirin 81 mg Oral chew 1 tab once daily [Active]; atorvastatin 20 mg Oral tab 1 tab iw once daily [Active]; glimepiride 4 mg Oral tab 1 tab once daily [Active]; lisinopril 20 mg Oral tab 1 tab once daily [Active]; lovastatin 10 mg Oral tab 1 tab once daily [Active]; metformin 1,000 mg Oral tab 2 times per day [Active]; Pepcid 20 mg Oral tab 1 tab once daily [Active]; Plavix 75 mg Oral tab 1 tab once daily [Active]; - PMHx: 10:58 Brain bleed; Diabetes - NIDDM; High Cholesterol; Hypertension; TIA; iw - Immunization history:: Client reports receiving the 2nd dose of the Covid vaccine. - Social history:: Smoking status: Patient denies any tobacco usage or history of. ROS: 11:15 Constitutional: Negative for fever, chills, and weight loss. pm1 11:15 Abdomen/GI: Negative for abdominal pain, nausea, vomiting, diarrhea, and constipation. 11:15 MS/Extremity: Negative for injury and deformity, Skin: Negative for injury, rash, and discoloration. 11:15 ENT: Positive for sore throat, Negative for drainage from ear(s), ear pain. 11:15 Cardiovascular: Positive for chest pain, with cough. 11:15 Respiratory: Positive for cough, Negative for shortness of breath. 11:15 Back: Positive for of the left subscapular area. 11:15 Neuro: Positive for headache, Negative for numbness, tingling, weakness. 11:15 All other systems are negative. Exam: 11:15 Constitutional: This is a well developed, well nourished patient who is awake, alert, pm1 and in no acute distress. Head/Face: Normocephalic, atraumatic. 11:15 Back: No spinal tenderness. No costovertebral tenderness. Full range of motion. Skin: Warm, dry with normal turgor. Normal color with no rashes, no lesions, and no evidence of cellulitis. MS/ Extremity: Pulses equal, no cyanosis. Neurovascular intact. Full, normal range of motion. 11:15 Eyes: Exam is negative for acute changes, Periorbital structures: appear normal, Extraocular movements: no acute changes, Conjunctiva: no acute changes, no injection, Sclera: no acute changes, icterus, is not appreciated. 11:15 ENT: Exam is negative for acute changes, External ear(s): are unremarkable, Ear canal(s): are normal, TM's: no acute changes, Mouth: no acute changes, Lips: normal, moist, Oral mucosa: normal, pink and intact, moist. 11:15 Cardiovascular: Exam negative for acute changes, Rate: normal, Rhythm: regular, Pulses: no pulse deficits are appreciated, Heart sounds: normal, normal S1and S2, Edema: is not appreciated, JVD: is not appreciated. 11:15 Respiratory: Exam negative for acute changes, respiratory distress, shortness of breath, Breath sounds: are clear throughout. 11:15 Abdomen/GI: Exam negative for acute changes, Inspection: abdomen appears normal, Palpation: abdomen is soft and non-tender, in all quadrants. 11:15 Neuro: Exam negative for acute changes, Orientation: is normal, Mentation: is normal, Motor: is normal, moves all fours, Gait: is steady, at a normal pace, without difficulty. Vital Signs: 10:57 BP 109 / 61; Pulse 77; Resp 18 S; Temp 98.4; Pulse Ox 95% on R/A; Weight 77.11 kg; iw Height 5 ft. 4 in. (162.56 cm); 12:00 BP 117 / 87; Pulse 70; Resp 17; Pulse Ox 95% ; bp 13:34 BP 111 / 61; Pulse 64; Resp 17; Pulse Ox 97% ; bp 10:57 Body Mass Index 29.18 (77.11 kg, 162.56 cm) iw MDM: 11:03 Patient medically screened. pm1 12:57 Data reviewed: vital signs. Data interpreted: Pulse oximetry: on room air is 95 %. pm1 Interpretation: normal. Counseling: I had a detailed discussion with the patient and/or guardian regarding: the historical points, exam findings, and any diagnostic results supporting the discharge/admit diagnosis, lab results, radiology results, the need for outpatient follow up, to return to the emergency department if symptoms worsen or persist or if there are any questions or concerns that arise at home. 13:05 ED course: [place] reviewed. pm1 01/07 11:14 Order name: Strep; Complete Time: 12:22 pm1 01/07 11:14 Order name: COVID-19/FLU A+B (Document "Date of Onset" if Symptomatic); Complete Time: pm1 12:46 01/07 11:14 Order name: Chest Pa And Lat (2 Views) XRAY; Complete Time: 12:57 pm1 01/07 12:14 Order name: Throat Culture EDMS Administered Medications: 11:25 Drug: Tussionex Pennkinetic ER (chlorpheniramine-hydrocodone) Suspension 5 ml Route: PO;bp 13:37 Follow up: Response: No adverse reaction; Pain is decreased bp Disposition: 01/08 09:23 Co-signature as Attending Physician, Rhiannon Finney MD I agree with the assessment and sp3 plan of care. Disposition Summary: 01/07/21 13:01 Discharge Ordered Location: Home pm1 Problem: new pm1 Symptoms: have improved pm1 Condition: Stable pm1 Diagnosis - Cough pm1 - Acute pharyngitis, unspecified pm1 Followup: pm1 - With: Emergency Department - When: As needed - Reason: Worsening of condition Followup: pm1 - With: Private Physician - When: 2 - 3 days - Reason: Recheck today's complaints, Continuance of care, Re-evaluation by your physician Discharge Instructions: - Discharge Summary Sheet pm1 - Pharyngitis pm1 - Cough, Adult pm1 Forms: - Medication Reconciliation Form pm1 - Thank You Letter pm1 - Antibiotic Education pm1 - Prescription Opioid Use pm1 Prescriptions: - Zithromax Z-Gonzalez 250 mg Oral Tablet - take 1 tablet by ORAL route as directed for 5 days Day 1 - take two (2) tablets pm1 one time. Day 2, 3, 4 , 5 take one (1) tablet once daily.; 6 tablet; Refills: 0, Product Selection Permitted - Guaifenesin AC 10-100 mg/5 mL Oral Liquid - take 10 milliliters by ORAL route every 4 hours As needed; 240 milliliter; pm1 Refills: 0, Product Selection Permitted Signatures: Dispatcher [employer] Mahi Keyes RN RN iw Marinas, Patrick, NP [employer]DR[employer]ISING S[employer] REPRESENTATIVE pm1 Luis Patel RN RN bp Patel, Setul, MD MD sp3
[2021-01-07] MEDS ORDERED: ACETAMINOPHEN 325 MG TABLET ONE (13:11)
[2021-01-07 13:43] VITALS: TEMP 98.4
[2021-01-07 13:45] VITALS: BP 111/61; O2SAT 97
== END 2021-01-07 13:38 | disposition home or self-care (01) ==
LOC: ER 10:40
DX: J02.9 Acute pharyngitis, unspecified (principal); R05.9 Cough, unspecified; Z20.822 Contact with and (suspected) exposure to COVID-19
CPT/HCPCS: 87070; 87081; 0240U; 71046; 99285

== ENCOUNTER 2021-03-04 16:19 | Emergency (ER) | payer OTHER ==
--- OUTSIDE RECORDS SUMMARY | 2021-03-04 16:22 | XMS REPORT | Continuity of Care Document ---
:1950 Author Organization [facility] t Address [address] [place] [address] Care Team Providers Name Role Phone PCP, DOES NOT HAVE A Primary Care Physician Unavailable Srini FUENTES Attending Clinician Gideon FUENTES Attending Clinician GIDEON Attending Clinician Unavailable Doctor Unassigned, Name Attending Clinician Unavailable CHAI JOHNSON, Marjorie Attending Clinician Unavailable Gideon FUENTES Admitting Clinician GIDEON Admitting Clinician Unavailable Payers Payer Name Policy Type Policy Number Effective Date Expiration Date [facility] [id number] 2017 DUAL COMPLETE 00:00:00 [facility] [id number] 2016 00:00:00 [place] [id number] 2019 00:00:00 Problems This patient has no known problems. Allergies, Adverse Reactions, Alerts Allergy Allergy Status Severity Reaction(s) Onset Inactive Treating Comm ents Source Name Type Date Date Clinician NO KNOWN Drug Active [facility]ERGIE Class [facility] of [facility] Medications This patient has no known medications. Procedures This patient has no known procedures. Encounters Start End Encounter Admission Attending Care Care Encounter Source Date/Time Date/Time Type Type Clinicians Facility Department ID 2019-04-04 2019-04-05 Emergency Bryan Milligan [facility] [id number] 05:56:22 14:32:00 Corby Dickinson [id number] [place] [id number] [place] [id number] 2019-04-04 2019-04-05 Outpatient X GIDEON [facility] [place] [id number] Univers 05:56:22 14:32:00 CORBY hector [facility] 2019-04-04 2019-04-04 Orders Doctor MARY ANN [id number] 00:00:00 00:00:00 Only Unassigned, FOREIGN [id number] [facility] [id number] 2018-04-04 2018-04-04 Emergency X CHAI JOHNSON, [facility] ERT [id number] Univers 15:49:54 16:41:00 [facility]B [facility] Results Test Description Test Time Test Comments Results Result Sourc e Comments SCR MAMM 2017-12-16 - SCR MAMM BILATERAL BILATERAL DAVE 15:55:39 DAVE CAD CAD DIGITAL DIGITALBILATERAL DIGITAL SCREENING MAMMOGRAM 3D/2D WITH CAD: 12/10/2017CLINICAL: Asymptomatic. Digital breast tomosynthesis was performed in addition to routine CC and MLO views. Current mammographic images were evaluated by either a Sell[employer]and M-Vu or a [employer] ImageChecker CAD (computer aided detection system). No [...] mammography in one year. Deshaun jacinto/jose:12/16/2017 15:55:39 Edge Stitcher: Nneka Kahn MM, [facility] Mammographyletter sent: BIRADS 1-2 Normal Mammogram BI-RADS: 2 Benign
[2021-03-04 17:13] LABS: Absolute Lymphocytes (CBC) 3.3 K/uL (0.7-4.9); Hematocrit 41.6 % (36.0-45.0); Lymphocytes % 33.5 % (15.3-44.8); MPV 7.8 fL (7.6-11.3); RBC Red Blood Cell Count 4.46 M/uL (3.86-4.86)
[2021-03-04 17:17] LABS: Protime INR 1.08
[2021-03-04 17:35] LABS: ALT/SGPT 42 U/L (12-78); AST/SGOT 17 U/L (15-37); Albumin 3.6 g/dL (3.4-5.0); Alkaline Phosphatase 86 U/L (45-117); BUN Blood Urea Nitrogen 17 mg/dL (7-18); Bicarbonate 26 mmol/L (21-32); Bilirubin Direct < 0.1 mg/dL (0-0.2); Bilirubin Total 0.3 mg/dL (0.2-1.0); Glucose Level 340 mg/dL (74-106); Lipase 199 U/L (73-393); Magnesium 2.1 mg/dL (1.8-2.4); NT PRO-BNP 46 pg/mL (<125); Potassium 4.2 mmol/L (3.5-5.1); Protein, Total 7.7 g/dL (6.4-8.2); Sodium Level 134 mmol/L (136-145)
[2021-03-04 18:08] LABS: SARS-COV-2 RT PCR NEGATIVE (NEGATIVE)
--- NOTE | 2021-03-04 18:51 | RAD REPORT ---
EXAM DESCRIPTION: RAD - Chest Single View - 03/04/2021 5:35 pm CLINICAL HISTORY: SOB COMPARISON: Chest Pa And Lat (2 Views) dated 01/07/2021; Chest Single View dated 12/10/2020; Chest S polo View dated 10/03/2019; Chest Single View dated 05/07/2019 FINDINGS: Lines: None. Lungs: No evidence of edema or pneumonia. Pleural: No significant pleural effusions or pneumothorax. Cardiac: The heart size is within normal limits. Bones: No acute fractures. Other: IMPRESSION: No acute cardiopulmonary disease.
--- NOTE | 2021-03-04 19:22 | RAD REPORT ---
EXAM DESCRIPTION: CTAbdomen Pelvis W Contrast - 03/04/2021 6:27 pm CLINICAL HISTORY: ABD PAIN COMPARISON: Abdomen Pelvis W Contrast dated 05/07/2019; Abdomen Pelvis W Contrast dated 04/25/2019 ; Abdomen Pelvis W Contrast dated 09/27/2016 TECHNIQUE: CT of the abdomen and pelvis was performed. All CT scans are performed using dose optimization technique as appropriate and may include automated exposure control or mA/KV adjustment according to patient size. FINDINGS: Lower chest: No acute abnormality. Liver: Hepatic steatosis. Biliary: No biliary ductal dilatation. Stomach: No significant focal abnormality. Duodenum: No significant focal abnormality. Pancreas: No significant abnormality. Spleen: No significant abnormality. Adrenal: Benign unchanged left adrenal nodule. Kidney/ureter: No hydronephrosis. No renal calculi. Too small to characterize and/or benign appearing renal lesions are noted. Retroperitoneum: No retroperitoneal adenopathy. Vascular: No aneurysm. Bowel: No significant focal abnormality. Normal appendix. Peritoneum: No ascites or free air. Tiny fat containing umbilical hernia. Bladder: Grossly unremarkable. Reproductive: No adnexal masses. Bones: No acute fracture. A few nonspecific sclerotic foci in within the spine likely related to bone islands. Other: n/a IMPRESSION: No acute intra-abdominal or pelvic finding. Normal appendix. Incidental findings as note d above.
--- NOTE | 2021-03-04 19:26 | EDPHYS ---
Physician Documentation [facility] Name: Lorri Dotson Age: 70 yrs Sex: Female : 1950 Arrival Date: 03/04/2021 Time: 16:27 Bed 23 Private MD: ED Physician Attila Whittington HPI: 03/04 16:59 This 70 yrs old Female presents to ER via Ambulatory with complaints of pm1 Abdominal Pain, Shortness Of Breath, Headache. 16:59 The patient presents with abdominal pain in the upper abdomen. Onset: The pm1 symptoms/episode began/occurred 1 week(s) ago. The symptoms do not radiate. Associated signs and symptoms: Pertinent positives: shortness of breath, Pertinent negatives: nausea, vomiting, and diarrhea, chest pain, dysuria, fever. The symptoms are described as crampy. Modifying factors: The symptoms are alleviated by nothing, the symptoms are aggravated by nothing. Severity of pain: in the emergency department the pain is unchanged. The patient has experienced similar episodes in the past, a few times. The patient has not recently seen a physician. Historical: - Allergies: 16:34 No Known Allergies; gold - Home Meds: 16:34 aspirin 81 mg Oral chew 1 tab once daily [Active]; atorvastatin 20 mg Oral tab 1 tab gold once daily [Active]; glimepiride 4 mg Oral tab 1 tab once daily [Active]; lisinopril 20 mg Oral tab 1 tab once daily [Active]; lovastatin 10 mg Oral tab 1 tab once daily [Active]; metformin 1,000 mg Oral tab 2 times per day [Active]; Pepcid 20 mg Oral tab 1 tab once daily [Active]; Plavix 75 mg Oral tab 1 tab once daily [Active]; - PMHx: 16:34 High Cholesterol; TIA; Brain bleed; Diabetes - NIDDM; Hypertension; gold - Immunization history:: Adult Immunizations not up to date. - Social history:: Smoking status: Patient denies any tobacco usage or history of. ROS: 16:59 Constitutional: Negative for fever, chills, and weight loss. pm1 16:59 ENT: Negative for injury, pain, and discharge, Cardiovascular: Negative for chest pain, palpitations, and edema. 16:59 MS/Extremity: Negative for injury and deformity, Skin: Negative for injury, rash, and discoloration. 16:59 Respiratory: Positive for shortness of breath, Negative for cough. 16:59 Abdomen/GI: Positive for abdominal pain, of the right upper quadrant and left upper quadrant, Negative for nausea, vomiting, and diarrhea, constipation. 16:59 Back: Positive for of the left trapezius and right trapezius, pain. 16:59 Neuro: Positive for headache, Negative for numbness, tingling, weakness. 16:59 All other systems are negative. Exam: 16:59 Constitutional: This is a well developed, well nourished patient who is awake, alert, pm1 and in no acute distress. Head/Face: Normocephalic, atraumatic. 16:59 Back: No spinal tenderness. No costovertebral tenderness. Full range of motion. Skin: Warm, dry with normal turgor. Normal color with no rashes, no lesions, and no evidence of cellulitis. MS/ Extremity: Pulses equal, no cyanosis. Neurovascular intact. Full, normal range of motion. 16:59 Eyes: Exam is negative for acute changes, Periorbital structures: no acute changes, Pupils: no acute changes, Extraocular movements: no acute changes, Conjunctiva: no acute changes, no injection, Sclera: no acute changes, icterus, is not appreciated. 16:59 ENT: Exam is negative for acute changes, Mouth: no acute changes, Lips: normal, moist, Oral mucosa: normal, pink and intact, moist, Posterior pharynx: no acute changes. 16:59 Neck: Exam negative for External neck: no acute changes, C-spine: no acute changes, vertebral tenderness, is not appreciated, ROM/movement: no acute changes, Meningeal signs: Kernig's sign is negative, Brudzinski's sign is negative, nuchal rigidity, is not appreciated. 16:59 Cardiovascular: Exam negative for acute changes, Rate: normal, Rhythm: regular, Pulses: no pulse deficits are appreciated, Heart sounds: normal, normal S1and S2. 16:59 Respiratory: Exam negative for acute changes, respiratory distress, shortness of breath, Breath sounds: are clear throughout. 16:59 Abdomen/GI: Inspection: obese Palpation: soft, in all quadrants, mild abdominal tenderness, in the epigastric area. 16:59 Neuro: Exam negative for acute changes, Orientation: is normal, Mentation: is normal, Motor: is normal, moves all fours, Sensation: is normal, no obvious gross deficits. Vital Signs: 16:31 BP 122 / 61; Pulse 87; Resp 18; Temp 97.6; Pulse Ox 100% ; Weight 68.04 kg; Height 5 gold ft. 3 in. (160.02 cm); 16:53 BP 118 / 63; Pulse 81; Resp 16; Pulse Ox 99% on R/A; Pain 0/10; ab2 18:00 BP 116 / 70; Pulse 91; Resp 16; Pulse Ox 98% on R/A; Pain 6/10; ab2 16:31 Body Mass Index 26.57 (68.04 kg, 160.02 cm) gold MDM: 16:53 Patient medically screened. pm1 17:44 Differential diagnosis: AAA, acute coronary syndrome, appendicitis, cholecystitis, pm1 Cholelithiasis, myocardia ischemia or infarction, non-specific abd pain, Pyelonephritis, urinary tract infection. 19:25 Data reviewed: vital signs. Data interpreted: Pulse oximetry: on room air is 98 %. pm1 Interpretation: normal. Counseling: I had a detailed discussion with the patient and/or guardian regarding: the historical points, exam findings, and any diagnostic results supporting the discharge/admit diagnosis, lab results, radiology results, the need for outpatient follow up, a family practitioner, to return to the emergency department if symptoms worsen or persist or if there are any questions or concerns that arise at home. 03/04 16:57 Order name: Basic Metabolic Panel; Complete Time: 17:44 pm03/04 16:57 Order name: CBC with Diff; Complete Time: 17:44 pm03/04 16:57 Order name: LFT's; Complete Time: 17:44 pm03/04 16:57 Order name: Magnesium; Complete Time: 17:44 pm03/04 16:57 Order name: NT PRO-BNP; Complete Time: 17:44 pm03/04 16:57 Order name: PT-INR; Complete Time: 17:44 pm03/04 16:57 Order name: Troponin HS; Complete Time: 17:44 pm03/04 16:57 Order name: XRAY Chest (1 view); Complete Time: 18:54 pm1 03/04 16:57 Order name: EKG; Complete Time: 16:58 pm1 03/04 16:57 Order name: Cardiac monitoring; Complete Time: 17:10 pm1 03/04 16:57 Order name: Lipase; Complete Time: 17:44 pm1 03/04 16:57 Order name: CT Abd/Pelvis - IV Contrast Only; Complete Time: 19:24 pm1 03/04 16:58 Order name: COVID-19/FLU A+B (Document "Date of Onset" if Symptomatic); Complete Time: pm1 18:13 03/04 19:05 Order name: Glucose, Ancillary Testing; Complete Time: 19:09 EDMS 03/04 16:57 Order name: EKG - Nurse/Tech; Complete Time: 18:01 pm1 03/04 16:57 Order name: IV Saline Lock; Complete Time: 17:10 pm1 03/04 16:57 Order name: Labs collected and sent; Complete Time: 17:10 pm1 03/04 16:57 Order name: O2 Per Protocol; Complete Time: 17:10 pm1 03/04 16:57 Order name: O2 Sat Monitoring; Complete Time: 17:10 pm1 Administered Medications: No medications were administered Disposition Summary: 03/04/21 19:25 Discharge Ordered Location: Home pm1 Problem: new pm1 Symptoms: have improved pm1 Condition: Stable pm1 Diagnosis - Abdominal pain, unspecified pm1 Followup: pm1 - With: Emergency Department - When: As needed - Reason: Worsening of condition Followup: pm1 - With: Private Physician - When: 2 - 3 days - Reason: Recheck today's complaints, Continuance of care, Re-evaluation by your physician Discharge Instructions: - Discharge Summary Sheet pm1 - Abdominal Pain, Adult pm1 Forms: - Medication Reconciliation Form pm1 - Thank You Letter pm1 - Antibiotic Education pm1 - Prescription Opioid Use pm1 Addendum: 03/06/2021 19:02 Co-signature as Attending Physician, Attila Whittington MD. r n Signatures: Dispatcher [employer] Attila Cheng MD MD rn Marinas, Patrick, DAYAN SIGN SHOP SUPERVISOR pm1 Au-StagerSamantha RN RN gold
--- NOTE | 2021-03-04 19:26 | ER ---
Nurse's Notes [facility] Name: Lorri Dotson Age: 70 yrs Sex: Female : 1950 Arrival Date: 03/04/2021 Time: 16:27 Bed 23 [facility] MD: Diagnosis: Abdominal pain, unspecified Presentation: 03/04 16:31 Chief complaint: Patient states: SOB, abdominal pain N/V, and upper back pain. gold Coronavirus screen: Vaccine status:. Coronavirus screen: Vaccine status: Patient reports receiving the 2nd dose of the covid vaccine. Ebola Screen: Patient denies travel to an Ebola-affected area in the 21 days before illness onset. Initial Sepsis Screen: Does the patient meet any 2 criteria? No. Patient's initial sepsis screen is negative. Does the patient have a suspected source of infection? No. Patient's initial sepsis screen is negative. Risk Assessment: Do you want to hurt yourself or someone else? Patient reports no desire to harm self or others. Onset of symptoms was March 04, 2021. 16:31 Method Of Arrival: Ambulatory 16:31 Acuity: SARAI 3 gold Historical: - Allergies: 16:34 No Known Allergies; gold - Home Meds: 16:34 aspirin 81 mg Oral chew 1 tab once daily [Active]; atorvastatin 20 mg Oral tab 1 tab gold once daily [Active]; glimepiride 4 mg Oral tab 1 tab once daily [Active]; lisinopril 20 mg Oral tab 1 tab once daily [Active]; lovastatin 10 mg Oral tab 1 tab once daily [Active]; metformin 1,000 mg Oral tab 2 times per day [Active]; Pepcid 20 mg Oral tab 1 tab once daily [Active]; Plavix 75 mg Oral tab 1 tab once daily [Active]; - PMHx: 16:34 High Cholesterol; TIA; Brain bleed; Diabetes - NIDDM; Hypertension; gold - Immunization history:: Adult Immunizations not up to date. - Social history:: Smoking status: Patient denies any tobacco usage or history of. Screenin:44 Abuse screen: Denies threats or abuse. Denies injuries from another. Nutritional ab2 screening: No deficits noted. Tuberculosis screening: No symptoms or risk factors identified. Fall Risk None identified. Assessment: 16:43 General: Appears in no apparent distress. comfortable, Behavior is calm, cooperative, ab2 appropriate for age. Pain: Complains of pain in right upper quadrant and left upper quadrant Pain does not radiate. Pain currently is 7 out of 10 on a pain scale. Neuro: No deficits noted. Level of Consciousness is awake, alert, obeys commands, Oriented to person, place, time, situation, Appropriate for age Dirt Supervisor are equal bilaterally Moves all extremities. Gait is steady, Speech is normal, Facial symmetry appears normal. Cardiovascular: No deficits noted. Denies chest pain, Heart tones S1 S2 present Patient's skin is warm and dry. Chest pain is denied. Respiratory: Reports shortness of breath Airway is patent Breath sounds are clear bilaterally. GI: Bowel sounds present X 4 quads. Abdomen is tender to palpation in right upper quadrant and left upper quadrant Reports upper abdominal pain, nausea, vomiting. : No deficits noted. No signs and/or symptoms were reported regarding the genitourinary system. EENT: No deficits noted. No signs and/or symptoms were reported regarding the EENT system. Derm: No deficits noted. No signs and/or symptoms reported regarding the dermatologic system. Musculoskeletal: No deficits noted. No signs and/or symptoms reported regarding the musculoskeletal system. 18:29 Reassessment: Patient appears in no apparent distress at this time. Pt states she is ab2 getting a headache and asked for the lights to be dimmed. Vital Signs: 16:31 BP 122 / 61; Pulse 87; Resp 18; Temp 97.6; Pulse Ox 100% ; Weight 68.04 kg; Height 5 gold ft. 3 in. (160.02 cm); 16:53 BP 118 / 63; Pulse 81; Resp 16; Pulse Ox 99% on R/A; Pain 0/10; ab2 18:00 BP 116 / 70; Pulse 91; Resp 16; Pulse Ox 98% on R/A; Pain 6/10; ab2 16:31 Body Mass Index 26.57 (68.04 kg, 160.02 cm) gold ED Course: 16:27 Patient arrived in ED. am2 16:34 Triage completed. gold 16:41 Pool Baez NP is PHCP. pm1 16:41 Attila Whittington MD is Attending Physician. pm1 16:41 Reji Guerrero is Primary Nurse. ab2 16:44 Arm band placed on right wrist. ab2 16:45 Patient has correct armband on for positive identification. Bed in low position. Call ab2 light in reach. Side rails up X2. 16:45 No provider procedures requiring assistance completed. ab2 17:10 Basic Metabolic Panel Sent. ab2 17:10 COVID-19/FLU A+B (Document "Date of Onset" if Symptomatic) Sent. ab2 17:10 Inserted saline lock: 18 gauge in right antecubital area, using aseptic technique. ab2 Blood collected. 17:35 XRAY Chest (1 view) In Process Unspecified. EDMS 17:35 CT Abd/Pelvis - IV Contrast Only In Process Unspecified. EDMS 19:58 IV discontinued, intact, bleeding controlled, No redness/swelling at site. Pressure sf1 dressing applied. Administered Medications: No medications were administered Outcome: 19:25 Discharge ordered by MD. pm1 19:57 Discharged to home ambulatory. sf1 19:57 Condition: good 19:57 Discharge instructions given to patient. 19:58 Patient left the ED. sf1 Signatures: Dispatcher [employer] EDVA Pool Baez, PLASTICS SEASONER OPERATOR PLASTICS SEASONER OPERATOR pm1 Gita Mcdonald am2 Hellen-StageSamantha alvarez RN RN Reji Poon ab2 Sharonda Hernandez RN RN sf1
[2021-03-05 02:08] VITALS: TEMP 97.6
[2021-03-05 02:11] VITALS: BP 116/70; O2SAT 98
== END 2021-03-04 19:58 | disposition home or self-care (01) ==
LOC: ER 16:19
DX: R10.10 Upper abdominal pain, unspecified (principal); I10 Essential (primary) hypertension; E11.9 Type 2 diabetes mellitus without complications; Z79.01 Long term (current) use of anticoagulants; Z79.82 Long term (current) use of aspirin; Z20.822 Contact with and (suspected) exposure to COVID-19
CPT/HCPCS: 93005; 85025; 80048; 36415; 83735; 85610; 82947; 80076; 84484; 83690; 83880; 0240U; 74177; 71045; 99283; Q9967

== ENCOUNTER 2021-03-28 19:35 | Emergency (ER) | payer OTHER ==
--- OUTSIDE RECORDS SUMMARY | 2021-03-28 19:38 | XMS REPORT | Continuity of Care Document ---
:1950 Author Organization [facility] t Address [address] [place] [address] Care Team Providers Name Role Phone PCP, DOES NOT HAVE A Primary Care Physician Unavailable SRINI Attending Clinician Unavailable Srini FUENTES Attending Clinician Doctor Unassigned, Name Attending Clinician Unavailable GIDEON Attending Clinician Unavailable Gideon FUENTES Attending Clinician Marjorie PAULA III Attending Clinician Unavailable GIDEON Admitting Clinician Unavailable Gideon FUENTES Admitting Clinician Payers Payer Name Policy Type Policy Number Effective Date Expiration Date Malick bennett [facility] [id number] 2016 00:00:00 PLUS Problems Condition Condition Condition Status Onset Resolution Last Treating Co mments Source Name Details Category Date Date Treatment Clinician Date Chest pain Chest pain Disease Active 2020-0 U nivers 2-23 ity of 00:00: [address] Branch Morbid Morbid Disease Active 2020-0 Univers obesity obesity 2-23 ity of 00:00: [address] Branch Type 2 Type 2 Disease Active 2020-0 Univers diabetes diabetes 2-23 ity of mellitus mellitus 00:00: [place] without without 00 Medical complicati complicati Br anch on, on, without without long-term long-term current current use of use of insulin insulin Essential Essential Disease Active 2020-0 Uni vers hypertensi hypertensi 2-23 it y of on on 00:00: [address] Branch HLD HLD Disease Active 2020-0 Univers (hyperlipi (hyperlipi 2-23 it y of demia) demia) 00:00: [place] 00 Medical Branch History of History of Disease Active U nivers arterial arterial 2 ity of ischemic ischemic 00:00: [place] stroke stroke 00 Medical Branch Abnormal Abnormal Disease Active Overview: Un mick fasting fasting 3-28 Formattin ity o f glucose glucose 00:00: g of this [place] 00 note Medical might be Branch different from the original. Fasting glucose- 326 Encounter Encounter Disease Active Overview: Univers for for 2- Formattin ity of routine routine 00:00: g of this [place] gynecologi gynecologi 00 note Me dical layla layla might be Branch examinatio examinatio different n n from the original. 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 Allergies, Adverse Reactions, Alerts Allergy Allergy Status Severity Reaction(s) Onset Inactive Treating Comm ents Source Name Type Date Date Clinician NO KNOWN Drug Active Univers ALLERGIE Class ity of S [facility] Social History Social Habit Start Date Stop Date Quantity Comments Source Exposure to Not sure [facility] SARS-CoV-2 [place] Medical (event) Branch Alcohol intake 2019-04-04 2019-04-04 Current University 00:00:00 00:00:00 non-drinker of [facility] alcohol Branch (finding) Sex Ass[birth year] At [birth year] Universit y of 00:00:00 00:00:00 [facility] Smoking Status Start Date Stop Date Source Never smoker [facility] Branch Medications Ordered Filled Start Stop Current Ordering Indication Dosage Frequency Signature Comments Components Source Medication Medication Date Date Medication? Clinician (SIG) Name Name maalox:diph 2021-0 2021- No 15mL 15 mL, Uni vers enhydrAMINE 2-15 02-15 Oral, ity of :lidocaine 08:15: 07:06 ONCE, 1 [place] as 2 % viscous 00 :00 dose, On Medi layla 1:1:1 Tue Branch ([facility]OUT 03/27/21 at [facility]) 0215, oral Routine suspension 15 mL iohexol 2021- No [id number] 120mL 120 mL, Univers (OMNIPAQUE 03-2715 Intravenou it y of 350 07:00: 05:56 s, ONCE, 1 [place] BULK-500 00 :00 dose, On Medical mL) Tue Branch injection 03/27/21 at 120 mL 0100, Routine morpHINE 2021- No 4mg 4 mg, Slow Un mick injection 4 03-2715 IV Push, ity of mg 06:15: 05:25 ONCE, 1 [place] 00 :00 dose, On Medical Tue Branch 03/27/21 at 0015, STAT ondansetron 2021- No 4mg 4 mg, Slow Univers (ZOFRAN 03-2715 IV Push, ity of (PF)) 06:15: 05:25 ONCE, 1 [place] injection 4 00 :00 dose, On Medi layla mg Tue Branch 03/27/21 at 0015, MAXIMUS sodium 2021-0 Yes 5mL 5 mL, Univers chloride 2-15 Intravenou ity o f (NS) 05:08: s, PRN, [place] injection 5 31 Starting Medi layla mL on Mon Branch 03/26/21 at 2308, Until Discontinu ed, Routine, IV line flushing ondansetron 2021-0 Yes [id number] 4mg Take 1 Univers 4 mg 2-15 tablet by ity of disintegrat 00:00: mouth [place] ing tablet 00 every 4 Medica l (four) Branch hours as needed for Nausea and Vomiting (N/V). sucralfate 2021-0 Yes [id number] 1g Take 1 U nivers 1 gram 2-15 tablet by ity of tablet 00:00: mouth [place] 00 before Medical meals and Branch at bedtime. pantoprazol 2021-0 Yes [id number] 40mg Take 1 Univers e 40 mg EC 2-15 tablet by ity of tablet 00:00: mouth [place] 00 daily. Medical Branch glimepiride 2019- Yes 4mg Take 4 mg U nivers 4 mg tablet 2-24 by mouth ity of 14:33: daily with [place] [address] breakfast. Medical Branch atorvastati 2020-0 Yes 10mg Take 10 mg Univers n 10 mg 2-24 by mouth ity of tablet 14:33: at [place] [address] bedtime. Medical Branch clopidogrel 2020-0 Yes 75mg Take 75 mg Univers 75 mg 2-24 by mouth ity of tablet 14:33: daily. [place] [address] Medical Branch glimepiride 2020-0 Yes 4mg Take 4 mg U nivers 4 mg tablet 2-24 by mouth ity of 14:33: daily with [place] [address] breakfast. Medical Branch atorvastati 2020-0 Yes 10mg Take 10 mg Univers n 10 mg 2-24 by mouth ity of tablet 14:33: at [place] [address] bedtime. Medical Branch clopidogrel 2020-0 Yes 75mg Take 75 mg Univers 75 mg 2-24 by mouth ity of tablet 14:33: daily. [place] [address] Medical Branch famotidine 2020-0 Yes [id number] 20mg Take 1 U nivers 20 mg 2-24 tablet by ity of tablet 00:00: mouth 2 [place] [address] (two) Medical times Branch daily. sucralfate 2020-0 Yes [id number] 1g Take 1 U nivers 1 gram 2-24 tablet by ity of tablet 00:00: mouth [place] 00 before Medical meals and Branch at bedtime. famotidine 2020-0 Yes [id number] 20mg Take 1 U nivers 20 mg 2-24 tablet by ity of tablet 00:00: mouth 2 [place] [address] (two) Medical times Branch daily. sucralfate 2020-0 Yes [id number] 1g Take 1 U nivers 1 gram 2-24 tablet by ity of tablet 00:00: mouth [place] 00 before Medical meals and Branch at bedtime. metoclopram 2019-0 Yes [id number] 10mg Take 1 Univers burt HCl 10 3-24 tablet by ity of mg tablet 00:00: mouth [place] 00 every 6 Medical (six) Branch hours. metoclopram 2019-0 Yes [id number] 10mg Take 1 Univers burt HCl 10 3-24 tablet by ity of mg tablet 00:00: mouth [place] 00 every 6 Medical (six) Branch hours. acetaminoph 2018- Yes 1{tbl} Take 1 Un mick en-codeine 0-27 tablet by ity of (TYLENOL-CO 00:00: mouth [place] DEINE #3) 00 every 6 Medical 300-30 mg (six) Branch tablet hours as needed for Pain (scale 4-6). acetaminoph 2017- Yes 1{tbl} Take 1 Un mick en-codeine 0-27 tablet by ity of (TYLENOL-CO 00:00: mouth [place] DEINE #3) 00 every 6 Medical 300-30 mg (six) Branch tablet hours as needed for Pain (scale 4-6). Immunizations Ordered Filled Immunization Date Status Comments [facility] e Immunization Name Name TD 2012-04-08 Completed [facility] 00:00:00 [facility] 2012-04-08 Completed [facility] 00:00:00 [facility] Vital Signs Vital Name Observation Time Observation Value Comments Source Systolic blood 2021-03-27 08:30:00 118 mm[Hg] [facility] Diastolic blood 2021-03-27 08:30:00 70 mm[Hg] [facility] Heart rate 2021-03-27 08:30:00 67 /min [facility] Oxygen saturation in 2021-03-27 08:30:00 98 /min [facility] Arterial blood by [facility] Pulse oximetry Branch Respiratory rate 2021-03-27 07:00:00 18 /min [facility] acute hospital Body temperature 2021-03-27 04:48:00 36.22 [facility] Body height 2021-03-27 04:48:00 162.6 cm [facility] Body weight 2021-03-27 04:48:00 72.576 kg [facility] BMI 2021-03-27 04:48:00 27.46 kg/m2 [facility] Procedures Procedure Date / Time Performing Clinician Source Performed CT ABDOMEN PELVIS W 2021-03-27 05:57:50 Krut Milligan [facility] CONTRAST [facility] XR CHEST 1 VW 2021-03-27 05:50:00 Kurt Milligan [place] o f [facility] LACTIC ACID WHOLE BLOOD 2021-03-27 05:17:00 Kurt Milligan [facility] LIPASE 2021-03-27 05:14:00 Kurt Milligan [place] [facility] TROPONIN I 2021-03-27 05:14:00 Kurt Milligan [place] [facility] COMP. METABOLIC PANEL 2021-03-27 05:14:00 Kurt Milligan [facility] ([id number]) [facility] CBC WITH DIFF 2021-03-27 05:14:00 Kurt Milligan [place] [facility] PROTHROMBIN TIME / INR 2021-03-27 05:14:00 Kurt Milligan [facility] rsity [facility] ACTIVATED PARTIAL 2021-03-27 05:14:00 Kurt Milligan [facility] THRMPLAS [facility] CONSENT/REFUSAL FOR 2021-03-27 04:26:29 Doctor Jurgen, No Un [facility] DIAGNOSIS AND TREATMENT Name [facility] Encounters Start End Encounter Admission Attending Care Care Encounter Source Date/Time Date/Time Type Type Clinicians Facility Department ID 2021-03-26 2021-03-27 Emergency X SRINI [facility] ERT [id number] Univers 22:52:00 02:52:00 KURT boswell [facility] 2021-03-26 2021-03-27 [facility] [id number] Univers 22:52:00 02:52:00 Kurt RODRIGUEZ [id number] i ty of [place] 4.2.7.2.686 [facility] [id number] [facility] 084 Branch 2021-03-26 2021-03-26 Orders Doctor REESE [id number] Univers 00:00:00 00:00:00 Only Unassigned, FOREIGN 350.1.13.10 ity of [place] [facility] 4.2.7.2.686 [facility] [id number] [facility] 009 Branch 2019-04-04 2019-04-05 Outpatient X ZACK DICKINSON [place] [id number] Univers 05:56:22 14:32:00 CORBY boswell [facility] 2019-04-04 2019-04-05 Emergency Kurt Milligan [facility] [id number]. [id number] 05:56:22 14:32:00 Corby Dickinson 350.1.13.10 [place] 4.2.7.2.686 [place] [id number] 2019-04-04 2019-04-04 Orders Doctor MARY ANN [id number] 00:00:00 00:00:00 Only Unassigned, FOREIGN 350.1.13.10 [place] [facility] 4.2.7.2.686 [id number] 2018-04-04 2018-04-04 Emergency X CHAI III, [facility] ERT [id number] [facility] 15:49:54 16:41:00 BARB boswell [facility] Results Test Description Test Time Test Comments Results Result Comments Source HEMOGLOBIN A1c 2021-03-27 08:41:12 Test Item Value Reference Range Interpretation Comme nts HEMOGLOBIN A1c (test code = 14.1 % 4.2-5.6 H [employer] 11579) GUIDELINES FOR HGB A1C: PREDIABETES/INC REASED RISK . . . . . . . 5.7-6.4% DIAGNOSIS OF DIABETES . . . . . . . . . >=6.5% WITH CONF IRMATION OR APPROPRIATE SYMPTOMS N OTE: ASSAY MAY BE AFFECTED BY HEM OGLOBINOPATHIES (SICKLE CELL ANEMIA, S-C DISEASE, OTHERS) OR ARTIFICIALLY LO WERED BY DECREASED RED CELL SURVIV AL (HEMOLYTIC ANEMIAS, BLOOD LOSS, ETC.). CONSIDER ALTERNATE TESTI NG OR LABORATORY CONSULTATION. TROPONIN [id number] 05:48:42 Test Item Value Reference Interpretation Comments Range TROPONIN I (test 0.002 ng/mL See_Comment [Automated code = 8756716444) message] The system which generated this result transmitted reference range : <=0.034. The reference range was not used to interpret this result as normal/abnormal . JOANNE (test code = Reference (Normal) JOANNE) Range (defined by the 99th percentile reference limit): <= 0.034 ng/mL Note: Cardiac troponin begins to rise 3-4 hours after the onset of ischemia. Repeat in 4-6 hours if the sample was drawn within 3-4 hours of the onset of the symptom and found normal. Diagnosis of myocardial injury is made with acute changes in cTn concentrations with at least one serial sample above the 99th percentile upper reference limit (URL), taken together with the patient's clinical presentation. Biotin has been reported to cause a negative bias, interpret results relative to patient's use of biotin. Lab Interpretation Normal (test code = 08317-1) [facility]20 Test Item Value Reference Range Interpretation Comments APTT Patient (test See_Comment [Automat ed code = 3173-2) message] The system which generated this result transmitted reference range : 23 - 38 Seconds . The reference range was not used to interpr et this result as normal/abnormal . JOANNE (test code = JOANNE) The [facility] patient population mean normal value for aPTT is 30 seconds. Lab Interpretation Normal (test code = 01067-7) [facility] / [id number] 05:42:19 Test Item Value Reference Range Interpretation Comments PROTIME PATIENT (test See_Comment [Auto mated message] code = 5964-2) The system wh ich generated this result transmitted ref erence range: 12.0 - 1 4.7 Seconds. The re ference range was not u sed to interpret this result as normal/abnor mal. INR (test code = 6301-6) Nor mal INR <1.1; Warfarin Therap eutic range 2.0 to 3. 0 or 2.5 to 3.5, dep ending upon the indica tions. Lab Interpretation (test Normal code = 08709-6) [facility] WITH [id number] 05:39:18 Test Item Value Reference Range Interpretation Comments WBC (test code = See_Comment [Automated 1390-2) message] The sy stem which generated this result transmitted reference range : 4.30 - 11.10 10*3/?L. The reference range was not used to interpret this result as normal/abnormal . RBC (test code = See_Comment [Automated 949-8) message] The sy stem which generated this result transmitted reference range : 3.93 - 5.25 10*6/?L. The reference range was not used to interpret this result as normal/abnormal . HGB (test code = 14.3 g/dL 11.6-15.0 718-7) HCT (test code = 42.0 % 35.7-45.2 4544-3) MCV (test code = 91.3 fL 80.6-95.5 787-2) MCH (test code = 31.1 pg 25.9-32.8 785-6) MCHC (test code = 34.0 g/dL 31.6-35.1 786-4) RDW-SD (test code = 38.9 fL 39.0-49.9 L 13464-7) RDW-CV (test code = 11.7 % 12.0-15.5 L 788-0) PLT (test code = See_Comment [Automated 777-3) message] The sy stem which generated this result transmitted reference range : 166 - 358 10*3/ ?L. The reference r bonifacio was not used to interpret this result as normal/abnormal . MPV (test code = 9.6 fL 9.5-12.9 26600-8) NRBC/100 WBC (test See_Comment [Automat ed code = 8971897140) message] The system which generated this result transmitted reference range : 0.0 - 10.0 /100 WBCs. The refer ence range was not u sed to interpret th is result as normal/abnormal . NRBC x10^3 (test code <0.01 See_Comment [Auto mated = 3345953792) message] The s ystem which generated this result transmitted reference range : 10*3/?L. The reference range was not used to interpret this result as normal/abnormal . GRAN MAT (NEUT) % 57.3 % (test code = 770-8) IMM GRAN % (test code 0.60 % = 0151802994) LYMPH % (test code = 34.0 % 736-9) MONO % (test code = 6.2 % 5905-5) EOS % (test code = 1.3 % 713-8) BASO % (test code = 0.6 % 706-2) GRAN MAT x10^3(ANC) 6.24 10*3/uL 1.88-7.09 (test code = 9526276613) IMM GRAN x10^3 (test 0.06 10*3/uL 0.00-0.06 code = 0204323208) LYMPH x10^3 (test code 3.71 10*3/uL 1.32-3.29 H = 731-0) MONO x10^3 (test code 0.68 10*3/uL 0.33-0.92 = 742-7) EOS x10^3 (test code = 0.14 10*3/uL 0.03-0.39 711-2) BASO x10^3 (test code 0.07 10*3/uL 0.01-0.07 = 704-7) Lab Interpretation Abnormal (test code = 92193-3) [facility]. METABOLIC PANEL (86265)2021-03-27 05:38:38 Test Item Value Reference Range Interpretation Comments NA (test code = 130 mmol/L 135-145 L 6275029873) K (test code = 4.3 mmol/L 3.5-5.0 7469840769) CL (test code = 95 mmol/L 98-108 L 2235915823) CO2 TOTAL (test code = 28 mmol/L 23-31 9952559954) AGAP (test code = 2-16 0439268950) BUN (test code = 17 mg/dL 7-23 9419641591) GLUCOSE (test code = 283 mg/dL 70-110 H 2735542418) CREATININE (test code = 0.55 mg/dL 0.50-1.04 7739873387) TOTAL BILI (test code = 0.5 mg/dL 0.1-1.1 7029880879) CALCIUM (test code = 9.1 mg/dL 8.6-10.6 0202519726) T PROTEIN (test code = 7.3 g/dL 6.3-8.2 3883405886) ALBUMIN (test code = 4.7 g/dL 3.5-5.0 2799903705) ALK PHOS (test code = 86 U/L 34-122 6102103438) ALTv (test code = 28 U/L 5-35 1742-6) AST(SGOT) (test code = 27 U/L 13-40 2158048735) eGFR (test code = mL/min/1.73m2 2224011089) JOANNE (test code = JOANNE) Association of Glomerular Filtration Rate (GFR) and Staging of Kidney Disease* + --+ --+ ------+| GFR (mL/min/1.73 m2) ?| With Kidney Damage ?| ?Without Kidney Damage+ --------+ --------+ +| ?>90 ?| ?Stage one ?| ? Normal ?+ ---+ ---+ -------+| ?60-89 ?| ?Stage two ?| ? Decreased GFR ? + --+ --+ ------+| ?30-59 ?| ?Stage three ?| ? Stage three ? + --+ --+ ------+| ?15-29 ?| ?Stage four ? | ? Stage four ?+ ---+ ---+ -------+| ?<15 (or dialysis) ? ?| ?Stage five ? | ? Stage five ?+ ---+ ---+ -------+ *Each stage assumes the associated GFR level has been in effect for at least three months. ?Stages 1 to 5, with or without kidney disease, indicate chronic kidney disease. Notes: Determination of stages one and two (with eGFR >59mL/min/1.73 m2) requires estimation of kidney damage for at least three months as defined by structural or functional abnormalities of the kidney, manifested by either:Pathological abnormalities or Markers of kidney damage (including abnormalities in the composition of the blood or urine or abnormalities in imaging tests). Lab Interpretation Abnormal (test code = 61951-6) [facility], [id number] 05:38:38 Test Item Value Reference Range Interpretation Comments LIPASE (test code = 8411708657) 131 U/L 0-220 Lab Interpretation (test code = Normal 42390-6) [facility]AUTO DIFF WITH [id number] 03:49:45 Test Item Value Reference Range Interpretation Comments WBC (test code = 8.5 K/UL 3.5-11.0 1001) RBC (test code = 4.71 M/UL 3.80-5.40 1002) HEMOGLOBIN (test code 14.3 G/DL 11.5-15.5 = 1003) HEMATOCRIT (test code 42.8 % 34.0-45.0 = 1004) MCV (test code = 90.9 fL 80.0-99.0 1005) MCH (test code = 30.4 PG 25.0-33.0 1006) MCHC (test code = 33.4 G/DL 31.0-36.0 1007) RDW (test code = 11.7 % 11.5-15.0 1038) NEUTROPHILS (test 58.3 % code = 1008) LYMPHOCYTES (test 33.4 % code = 1010) MONOCYTES (test code 5.9 % = 1011) EOSINOPHILS (test 1.3 % code = 1012) BASOPHILS (test code 0.6 % = 1013) IMMATURE GRANULOCYTES 0.5 % (test code = 1036) NUCLEATED RBCS (test 0.0 /100 See_Comment [Autom ated code = 1065) WBC'S message] The sy stem which generated this result transmitted reference range : 0.0. The refere nce range was not u sed to interpret th is result as normal/abnormal . PLATELET COUNT (test 258 K/UL 130-400 code = 1015) ABSOLUTE NEUTROPHILS 4.96 K/UL 1.50-7.50 (test code = 1066) ABSOLUTE LYMPHOCYTES 2.84 K/UL 1.00-4.00 (test code = 1067) ABSOLUTE MONOCYTES 0.50 K/UL 0.20-1.00 (test code = 1068) ABSOLUTE EOSINOPHILS 0.11 K/UL 0.00-0.50 (test code = 1040) ABSOLUTE BASOPHILS 0.05 K/UL 0.00-0.20 (test code = 1069) ABS IMMATURE 0.04 K/UL 0.00-0.10 GRANULOCYTES (test code = 1020) ABS NUCLEATED RBCS 0.00 K/UL 0.00-0.11 (test code = 98887) COMPREHENSIVE METABOLIC [id number] 03:20:16 Test Item Value Reference Range Interpretation Comments GLUCOSE (test code = 338 MG/DL 70-99 H 2216) BUN (test code = 20 MG/DL 8-23 2207) CREATININE (test 0.73 MG/DL 0.60-1.30 code = 2214) eGFR (2020 CKD-EPI) 89 ML/MIN/1.73 >60 (test code = 26162) CALC BUN/CREAT (test 27 RATIO 6-28 code = 2235) SODIUM (test code = 137 MEQ/L 581-512 1607) POTASSIUM (test code 4.4 MEQ/L 3.5-5.4 = 2227) CHLORIDE (test code 96 MEQ/L 95-107 = 2214) CARBON DIOXIDE (test 25 MEQ/L 19-31 code = 2206) CALCIUM (test code = 9.4 MG/DL 8.5-10.5 2208) PROTEIN, TOTAL (test 7.4 G/DL 6.1-8.3 code = 2229) ALBUMIN (test code = 4.7 G/DL 3.5-5.2 2200) CALC GLOBULIN (test 2.7 G/DL 1.9-3.7 code = 2240) CALC A/G RATIO (test 1.7 RATIO 1.0-2.6 code = 2234) BILIRUBIN, TOTAL 0.3 MG/DL See_Comment [Automated message] (test code = 2207) The syste m which generated this result transmit cathy reference range : <=1.2. The refe rence range was not u sed to interpret th is result as normal/abnormal . ALKALINE PHOSPHATASE 86 U/L 40-142 (test code = 220) AST (test code = 21 U/L 9-40 2217) ALT (test code = 28 U/L 5-40 2218) LIPID [id number] 03:20:16 Test Item Value Reference Range Interpretation Comments CHOLESTEROL (test 159 MG/DL <200 code = 2210) TRIGLYCERIDES (test 154 MG/DL <150 H code = 2232) HDL CHOLESTEROL (test 42 MG/DL >39 code = 2220) CALC LDL CHOL (test 91 MG/DL <100 NOTE: C ALCULATED LDL code = 2237) IS BASED ON DAVON-ROBLES METHOD WHICHINCLUDES ADJUSTABLE TRIGLYCERIDE:VL DL CHOLESTEROL RAT IO.THIS FACTOR VARIES B Y MEASURED TRIGLY CERIDE AND NON-HDLCHOL ESTEROL CONCENTRATIONS WITH INCREASED CALCU LATED LDL SEENIN HIGH ER TRIGLYCERIDE OR LOWER NON-HDL SPECIME NS. FOR MOREINFORMATION , SEE CLIENT ANNOUNCE MENT AT [email or web address] RISK RATIO LDL/HDL 2.17 RATIO <3.22 UN LESS (test code = 2238) OTHERWISE INDICATED, ALL TESTING PER FORMED [facility], [place]. [address] [place] [address] LABORATORY DIRE CTOR: TROY NUÑEZ M.D. CLIA NUMBER [id number] CAP ACCREDITATION N O. [id number] SCR MAMM BILATERAL DAVE CAD [id number] 15:55:39 - SCR MAMM BILATERAL DAVE CAD DIGITALBILATERAL DIGITAL SCREENING MAMMOGRAM 3D/2D WITH CAD: 8CLINICAL: Asymptomatic. Digital breast tomosynthesis was performed in addition to routine CC and MLO views. Current mammographic images were evaluated by either a [employer] M-Vu or a [employer] ImageChecker CAD (computer aided detection system). No [...] mammography in one year. Deshaun jacinto/jose:12/16/2017 15:55:39 Ichthyologist: Nneka Kahn MM, [facility] Mammographyletter sent: BIRADS 1-2 Normal Mammogram BI-RADS: 2 Benign"
--- NOTE | 2021-03-28 21:09 | ER ---
Nurse's Notes [facility] Name: Lorri Dotson Age: 70 yrs Sex: Female : 1950 Arrival Date: 03/28/2021 Time: 19:36 Bed Waiting Private MD: Diagnosis: Presentation: 03/28 20:13 Chief complaint: Patient states: "Abdominal pain, it has been making me throw up.". tw5 Coronavirus screen: Vaccine status: Patient reports receiving the 2nd dose of the covid vaccine. does know brand. Ebola Screen: Patient negative for fever greater than or equal to 101.5 degrees Fahrenheit, and additional compatible Ebola Virus Disease symptoms Patient denies exposure to infectious person. Patient denies travel to an Ebola-affected area in the 21 days before illness onset. Initial Sepsis Screen: Does the patient meet any 2 criteria? No. Patient's initial sepsis screen is negative. Does the patient have a suspected source of infection? No. Patient's initial sepsis screen is negative. Risk Assessment: Do you want to hurt yourself or someone else? Patient reports no desire to harm self or others. Onset of symptoms was March 27, 2021. 20:13 Method Of Arrival: Ambulatory tw5 20:13 Acuity: SARAI 3 tw5 Triage Assessment: 20:18 General: Appears uncomfortable, Behavior is calm, cooperative, appropriate for age. tw5 Pain: Complains of pain in abdomen Pain currently is 8 out of 10 on a pain scale. GI: Reports constipation. Historical: - Allergies: 20:18 No Known Allergies; tw5 - Home Meds: 20:18 aspirin 81 mg Oral chew 1 tab once daily [Active]; atorvastatin 20 mg Oral tab 1 tab tw5 once daily [Active]; glimepiride 4 mg Oral tab 1 tab once daily [Active]; lisinopril 20 mg Oral tab 1 tab once daily [Active]; lovastatin 10 mg Oral tab 1 tab once daily [Active]; metformin 1,000 mg Oral tab 2 times per day [Active]; Pepcid 20 mg Oral tab 1 tab once daily [Active]; Plavix 75 mg Oral tab 1 tab once daily [Active]; - PMHx: 20:18 Brain bleed; High Cholesterol; Diabetes - NIDDM; Hypertension; TIA; tw5 - Immunization history:: Client reports receiving the 2nd dose of the Covid vaccine. - Social history:: Smoking status: Patient denies any tobacco usage or history of. Assessment: 21:07 General: Patient called to be brought back to a room several times. No answer. . tw5 Vital Signs: 20:13 BP 117 / 46; Pulse 88; Resp 18; Temp 98.4; Pulse Ox 95% on R/A; Weight 77.11 kg; Height tw5 4 ft. 5 in. (134.62 cm); Pain 8/10; 20:13 Body Mass Index 42.55 (77.11 kg, 134.62 cm) tw5 ED Course: 19:36 Patient arrived in ED. kc5 20:18 Triage completed. tw5 20:18 Arm band placed on right wrist. tw5 Administered Medications: No medications were administered Outcome: 21:08 Patient left the ED. tw5 Signatures: Carly López tw5 Kinjal Collier kc5
[2021-03-28 21:44] VITALS: BP 117/46; TEMP 98.4; O2SAT 95
== END 2021-03-28 21:08 | disposition left against medical advice (07) ==
LOC: ER 19:35
DX: Z53.21 Procedure and treatment not carried out due to patient leaving prior to being seen by health care provider (principal)
CPT/HCPCS: 99281

== ENCOUNTER 2021-03-29 16:44 | Emergency (ER) | payer OTHER ==
--- OUTSIDE RECORDS SUMMARY | 2021-03-29 16:47 | XMS REPORT | Continuity of Care Document ---
:1950 Author Organization [facility] t Address [address] [place] [address] Care Team Providers Name Role Phone PCP, DOES NOT HAVE A Primary Care Physician Unavailable SRINI Attending Clinician Unavailable Srini FUENTES Attending Clinician Doctor Unassigned, Name Attending Clinician Unavailable Gideon FUENTES Attending Clinician GIDEON Attending Clinician Unavailable Marjorie PAULA III Attending Clinician Unavailable Gideon FUENTES Admitting Clinician GIDEON Admitting Clinician Unavailable Payers Payer Name Policy Type Policy Number Effective Date Expiration Date Malick bennett [facility] [id number] 2016 00:00:00 PLUS Problems Condition Condition Condition Status Onset Resolution Last Treating Co mments Source Name Details Category Date Date Treatment Clinician Date Chest pain Chest pain Disease Active 2020-0 U nivers 2-23 ity of 00:00: [address] Branch Morbid Morbid Disease Active 2020-0 Univers obesity obesity 2-23 ity of 00:00: [address] Branch Type 2 Type 2 Disease Active 2020-0 Univers diabetes diabetes 2-23 ity of mellitus mellitus 00:00: [place] without without 00 Medical complicati complicati Br anch on, on, without without long-term long-term current current use of use of insulin insulin Essential Essential Disease Active 2020-0 Uni vers hypertensi hypertensi 2-23 it y of on on 00:00: [address] Branch HLD HLD Disease Active 2020-0 Univers (hyperlipi (hyperlipi 2-23 it y of demia) demia) 00:00: [place] 00 Medical Branch History of History of [...] of routine routine 00:00: g of this [place] gynecologi gynecologi 00 note Me dical layla layla might be Branch examinatio examinatio different n n from the original. ICD10 Diagnosis Term Calciminer Utility Tubal Tubal Disease Active Univers ligation [...] Formattin ity of 00:00: g of this [place] 00 note Medical might be Branch different from the original. ICD10 Diagnosis Term Calciminer Utility Allergies, Adverse Reactions, Alerts Allergy Allergy Status Severity Reaction(s) Onset Inactive Treating Comm ents Source Name Type Date Date Clinician NO KNOWN Drug Active Univers ALLERGIE Class ity of S [facility] Social History Social Habit Start Date Stop Date Quantity Comments Source Exposure to Not sure [facility] SARS-CoV-2 [place] Medical (event) Branch Alcohol intake 2019-04-04 2019-04-04 Current University 00:00:00 00:00:00 non-drinker of [facility] alcohol Branch (finding) Sex Assigned At [birth year] Universit y of 00:00:00 00:00:00 [facility] Smoking Status Start Date Stop Date Source Never smoker [facility] Branch Medications Ordered Filled Start Stop Current Ordering Indication Dosage Frequency Signature Comments Components Source Medication Medication Date Date Medication? Clinician (SIG) Name Name maalox:diph 2021-0 2021- No 15mL 15 mL, Uni vers enhydrAMINE 2-15 02-15 Oral, ity of :lidocaine 08:15: 07:06 ONCE, 1 [place] as 2 % viscous 00 :00 dose, On Medi layla 1:1:1 Tue Branch ([facility] 03/27/21 at [facility]) 0215, oral Routine suspension 15 mL iohexol 2021- No [id number] 120mL 120 mL, Univers (OMNIPAQUE 03-2715 Intravenou [...] Routine, IV line flushing ondansetron 2021-0 Yes [id number] 4mg Take 1 Univers 4 mg 2-15 tablet by ity of disintegrat 00:00: mouth [place] ing tablet 00 every 4 Medica l (four) Branch hours as needed for Nausea and Vomiting (N/V). sucralfate 2021-0 Yes [id number] 1g Take 1 U nivers 1 gram 2-15 tablet by ity of tablet 00:00: mouth [place] 00 before Medical meals and Branch at bedtime. pantoprazol 2021-0 Yes [id number] 40mg Take 1 Univers e 40 mg EC 2-15 tablet by ity of tablet 00:00: mouth [place] 00 daily. Medical Branch glimepiride 2019- Yes 4mg Take 4 mg U nivers 4 mg tablet 2-24 by mouth ity of 14:33: daily with [place] [address] breakfast. Medical Branch atorvastati 2020-0 Yes 10mg Take 10 mg Univers n 10 mg 2-24 by mouth ity of tablet 14:33: at [place] [address] bedtime. Medical Branch clopidogrel 2020-0 Yes 75mg Take 75 mg Univers 75 mg 2-24 by mouth ity of tablet 14:33: daily. [place] [address] Medical Branch glimepiride 2020-0 Yes 4mg Take 4 mg U nivers 4 mg tablet 2-24 by mouth ity of 14:33: daily with [place] [address] breakfast. Medical Branch atorvastati 2020-0 Yes 10mg Take 10 mg Univers n 10 mg 2-24 by mouth ity of tablet 14:33: at [place] [address] bedtime. Medical Branch clopidogrel 2020-0 Yes 75mg Take 75 mg Univers 75 mg 2-24 by mouth ity of tablet 14:33: daily. [place] [address] Medical Branch famotidine 2020-0 Yes [id number] 20mg Take 1 U nivers 20 mg 2-24 tablet by ity of tablet 00:00: mouth 2 [place] [address] (two) Medical times Branch daily. sucralfate 2020-0 Yes [id number] 1g Take 1 U nivers 1 gram 2-24 tablet by ity of tablet 00:00: mouth [place] 00 before Medical meals and Branch at bedtime. famotidine 2020-0 Yes [id number] 20mg Take 1 U nivers 20 mg 2-24 tablet by ity of tablet 00:00: mouth 2 [place] [address] (two) Medical times Branch daily. sucralfate 2020-0 Yes [id number] 1g Take 1 U nivers 1 gram 2-24 tablet by ity of tablet 00:00: mouth [place] 00 before Medical meals and Branch at bedtime. metoclopram 2019-0 Yes [id number] 10mg Take 1 Univers burt HCl 10 3-24 tablet by ity of mg tablet 00:00: mouth [place] 00 every 6 Medical (six) Branch hours. metoclopram 2019-0 Yes [id number] 10mg Take 1 Univers burt HCl 10 3-24 tablet by ity of mg tablet 00:00: mouth [place] 00 every 6 Medical (six) Branch hours. [...] Immunizations Ordered Filled Immunization Date Status Comments [facility] e Immunization Name Name TD 2012-04-08 Completed [facility] 00:00:00 [facility] [place] [facility] 2012-04-08 Completed [facility] 00:00:00 [facility] Vital Signs Vital Name Observation Time Observation Value Comments Source Systolic blood 2021-03-27 08:30:00 118 mm[Hg] [facility] Diastolic blood 2021-03-27 08:30:00 70 mm[Hg] [facility] Heart rate 2021-03-27 08:30:00 67 /min [facility] Oxygen saturation in 2021-03-27 08:30:00 98 /min [facility] Arterial blood by [facility] Pulse oximetry Branch Respiratory rate 2021-03-27 07:00:00 18 /min [facility] Body temperature 2021-03-27 04:48:00 36.22 [facility] Body height 2021-03-27 04:48:00 162.6 cm [facility] Body weight 2021-03-27 04:48:00 72.576 kg [facility] BMI 2021-03-27 04:48:00 27.46 kg/m2 [facility] Procedures Procedure Date / Time Performing Clinician Source Performed CT ABDOMEN PELVIS W 2021-03-27 05:57:50 Kurt Milligan [facility] CONTRAST [facility] XR CHEST 1 VW 2021-03-27 05:50:00 Kurt Milligan [place] o f [facility] LACTIC ACID WHOLE BLOOD 2021-03-27 05:17:00 Kurt Milligan [facility] LIPASE 2021-03-27 05:14:00 Kurt Milligan [place] [facility] TROPONIN I 2021-03-27 05:14:00 Kurt Milligan [place] [facility] COMP. METABOLIC PANEL 2021-03-27 05:14:00 [facility]igan [facility] ([id number]) [facility] CBC WITH DIFF 2021-03-27 05:14:00 Kurt Milligan [facility] PROTHROMBIN TIME / INR 2021-03-27 05:14:00 Kurt Milligan [facility] [place] [facility] rsity [facility] ACTIVATED PARTIAL 2021-03-27 05:14:00 Kurt Milligan [facility] THRMPLAS [facility] CONSENT/REFUSAL FOR 2021-03-27 04:26:29 Doctor Unapatrice, No Un [facility] DIAGNOSIS AND TREATMENT Name [facility] Encounters Start End Encounter Admission Attending Care Care Encounter Source Date/Time Date/Time Type Type Clinicians Facility Department ID 2021-03-26 2021-03-27 Emergency X SRINI [facility] ERT [id number] Univers 22:52:00 02:52:00 KURT boswell [facility] 2021-03-26 2021-03-27 [facility] [id number] Univers 22:52:00 02:52:00 Kurt RODRIGUEZ 350.1.13.10 i ty of JASPER 4.2.7.2.686 [facility] [id number] [facility] 084 Branch 2021-03-26 2021-03-26 Orders Doctor REESE [id number] Univers 00:00:00 00:00:00 Only Unassigned, FOREIGN 350.1.13.10 ity of [place] [facility] 4.2.7.2.686 [facility] [id number] [facility] 009 Branch 2019-04-04 2019-04-05 Emergency Kurt Milligan [facility] [id number] 05:56:22 14:32:00 Corby Dickinson [id number] [place] 4.2.7.2.686 [place] [id number] 2019-04-04 2019-04-05 [facility] [id number] [facility] 05:56:22 14:32:00 CORBY hector [facility] 2019-04-04 2019-04-04 Orders Doctor MARY ANN [id number] 00:00:00 00:00:00 Only Unassigned, FOREIGN 350.1.13.10 [facility] 4.2.7.2.686 [id number] 2018-04-04 2018-04-04 Emergency X CHAI JOHNSON, [facility] ERT [id number] Univers 15:49:54 16:41:00 BARB [facility] Results Test Description Test Time Test Comments Results Result Comments Source HEMOGLOBIN A1c 2021-03-27 08:41:12 Test Item Value Reference Range Interpretation Comme nts HEMOGLOBIN A1c (test code = 14.1 % 4.2-5.6 H [employer] 35208) GUIDELINES FOR HGB A1C: PREDIABETES/INC REASED RISK [...] ALTERNATE TESTI NG OR LABORATORY CONSULTATION. TROPONIN [id number] 05:48:42 Test Item Value Reference Interpretation Comments Range TROPONIN I (test 0.002 ng/mL See_Comment [Automated code = 1380516973) message] The system which generated this result [...] biotin. Lab Interpretation Normal (test code = 73524-7) [facility] 05:44[facility]20 Test Item Value Reference Range Interpretation Comments APTT Patient (test See_Comment [Automat ed code = 3173-2) message] The system which generated this result transmitted reference range : 23 - 38 Seconds . The reference range was not used to interpr et this result as normal/abnormal . JOANNE (test code = JOANNE) The [facility] patient population mean normal value for aPTT is 30 seconds. Lab Interpretation Normal (test code = 02431-5) [facility] / [id number] 05:42:19 Test Item Value Reference Range Interpretation [...] tions. Lab Interpretation (test Normal code = 32450-7) [facility] WITH [id number] 05:39:18 Test Item Value Reference Range Interpretation Comments WBC (test code = See_Comment [Automated 2490-2) message] The sy stem which generated this result transmitted reference range : 4.30 - 11.10 10*3/?L. The reference range was not used to interpret this result as normal/abnormal . RBC (test code = See_Comment [Automated 259-8) message] The sy stem which generated this [...] (test code = 38.9 fL 39.0-49.9 L 58712-7) RDW-CV (test code = 11.7 % 12.0-15.5 L 788-0) PLT (test code = See_Comment [Automated 777-3) message] The sy stem which generated this result transmitted reference range : 166 - 358 10*3/ ?L. The reference r bonifacio was not used to interpret this result as normal/abnormal . MPV (test code = 9.6 fL 9.5-12.9 76389-4) NRBC/100 WBC (test See_Comment [Automat ed code = 7385345948) message] The system which generated this result transmitted reference range : 0.0 - 10.0 /100 WBCs. The refer ence range was not u sed to interpret th is result as normal/abnormal . NRBC x10^3 (test code <0.01 See_Comment [Auto mated = 1591647044) message] The s ystem which generated this result transmitted reference range : 10*3/?L. The reference range was not used to interpret this result as normal/abnormal . GRAN MAT (NEUT) % 57.3 % (test code = 770-8) IMM GRAN % (test code 0.60 % = 8322214255) LYMPH % (test code = 34.0 % 736-9) MONO % (test code = 6.2 % 5905-5) EOS % (test code = 1.3 % 713-8) BASO % (test code = 0.6 % 706-2) GRAN MAT x10^3(ANC) 6.24 10*3/uL 1.88-7.09 (test code = 8020403317) IMM GRAN x10^3 (test 0.06 10*3/uL 0.00-0.06 code = 3964664879) LYMPH x10^3 (test code 3.71 10*3/uL 1.32-3.29 H = 731-0) MONO x10^3 (test code 0.68 10*3/uL 0.33-0.92 = 742-7) EOS x10^3 (test code = 0.14 10*3/uL 0.03-0.39 711-2) BASO x10^3 (test code 0.07 10*3/uL 0.01-0.07 = 704-7) Lab Interpretation Abnormal (test code = 28393-8) [facility]. METABOLIC PANEL (80218)2021-03-27 05:38:38 Test Item Value Reference Range Interpretation Comments NA (test code = 130 mmol/L 135-145 L 3035413679) K (test code = 4.3 mmol/L 3.5-5.0 7643073689) CL (test code = 95 mmol/L 98-108 L 2185124883) CO2 TOTAL (test code = 28 mmol/L 23-31 9515725565) AGAP (test code = 2-16 5640053517) BUN (test code = 17 mg/dL 7-23 3923767554) GLUCOSE (test code = 283 mg/dL 70-110 H 1259355524) CREATININE (test code = 0.55 mg/dL 0.50-1.04 6186007987) TOTAL BILI (test code = 0.5 mg/dL 0.1-1.2 0731635230) CALCIUM (test code = 9.1 mg/dL 8.6-10.6 5535892509) T PROTEIN (test code = 7.3 g/dL 6.3-8.2 4271307657) ALBUMIN (test code = 4.7 g/dL 3.5-5.0 3483378462) ALK PHOS (test code = 86 U/L 34-122 0750177747) ALTv (test code = 28 U/L 5-35 1742-6) AST(SGOT) (test code = 27 U/L 13-40 4840166324) eGFR (test code = mL/min/1.73m2 3105381671) JOANNE (test code = JOANNE) Association of [...] tests). Lab Interpretation Abnormal (test code = 16260-5) [facility], [id number] 05:38:38 Test Item Value Reference Range Interpretation Comments LIPASE (test code = 5208354868) 131 U/L 0-220 Lab Interpretation (test code = Normal 11243-9) [facility] W/AUTO DIFF WITH [id number] 03:49:45 Test Item Value Reference Range Interpretation [...] RBCS 0.00 K/UL 0.00-0.11 (test code = 90881) COMPREHENSIVE METABOLIC [id number] 03:20:16 Test Item Value Reference Range Interpretation Comments GLUCOSE (test code = 338 MG/DL 70-99 H 2216) BUN (test code = 20 MG/DL 8-23 2207) CREATININE (test 0.73 MG/DL 0.60-1.30 code = 2214) eGFR (2020 CKD-EPI) 89 ML/MIN/1.73 >60 (test code = 54900) CALC BUN/CREAT (test 27 RATIO 6-28 code = 2235) SODIUM (test code = 137 MEQ/L 366-755 7901) POTASSIUM (test code 4.4 MEQ/L 3.5-5.4 = [...] code = 28 U/L 5-40 2218) LIPID [id number] 03:20:16 Test Item Value Reference Range Interpretation [...] , SEE CLIENT ANNOUNCE MENT AT [email or web address] RISK RATIO LDL/HDL 2.17 RATIO <3.22 UN LESS (test code = 2238) OTHERWISE INDICATED, ALL TESTING PER FORMED ATCLINICAL PATH [facility]LOGY LABORATORIES, I [place] [facility] [place] [place] [address] LABORATORY DIRE CTOR: TROY NUÑEZ M.D. CLIA NUMBER [id number] CAP ACCREDITATION N O. [id number] SCR MAMM BILATERAL DAVE CAD [id number] 15:55:39 - SCR MAMM BILATERAL DAVE CAD DIGITALBILATERAL DIGITAL SCREENING MAMMOGRAM 3D/2D WITH CAD: 8CLINICAL: Asymptomatic. Digital breast tomosynthesis was performed in addition to routine CC and MLO views. Current mammographic images were evaluated by either a [employer] M-Vu or a [employer] ImageChecker CAD (computer aided detection system). No [...] mammography in one year. Deshaun jacinto/jose:12/16/2017 15:55:39 Telephone Answering Service Operator: Nneka Kahn MM, [facility] Mammographyletter sent: BIRADS 1-2 Normal Mammogram BI-RADS: 2 Benign"
[2021-03-29 17:27] LABS: Absolute Lymphocytes (CBC) 2.7 K/uL (0.7-4.9); Hematocrit 42.6 % (36.0-45.0); Lymphocytes % 32.5 % (15.3-44.8); MPV 7.7 fL (7.6-11.3); RBC Red Blood Cell Count 4.59 M/uL (3.86-4.86)
[2021-03-29 17:34] LABS: Protime INR 1.05
[2021-03-29 17:47] LABS: Albumin 4.1 g/dL (3.4-5.0); Bilirubin Direct 0.1 mg/dL (0-0.2); Bilirubin Total 0.4 mg/dL (0.2-1.0); Potassium 4.1 mmol/L (3.5-5.1); Protein, Total 8.1 g/dL (6.4-8.2); Troponin High Sensitivity 4.2 pg/mL (<58.9)
--- NOTE | 2021-03-29 18:19 | RAD REPORT ---
EXAM DESCRIPTION: RAD - Chest Single View - 03/29/2021 5:50 pm CLINICAL HISTORY: Pain;Chest pain COMPARISON: Portable 03/04/2021 TECHNIQUE: AP portable chest image was obtained 03/29/2021 5:50 pm . FINDINGS: No focal mass, consolidation or failure finding. Mild prominence of the interstitial patte rn matches comparison. Heart and vasculature are normal. No measurable pleural effusion and no pneumothorax. No acute bony abnormality seen. No acute aortic findings suspected. IMPRESSION: No acute cardiopulmonary process. No significant change from comparison.
[2021-03-29] MEDS ORDERED: NA CHLORIDE 0.9% 500 ML ONE (18:40)
[2021-03-29] MEDS ORDERED: ONDANSETRON 4 MG/2 ML VIAL ONE (18:59)
[2021-03-29] MEDS ORDERED: FENTANYL CITR 100 MCG/2 ML ONE (18:59)
--- NOTE | 2021-03-29 19:34 | RAD REPORT ---
EXAM DESCRIPTION: CT - Abdomen Pelvis W Contrast - 03/29/2021 7:19 pm CLINICAL HISTORY: ABD PAIN COMPARISON: CT study 03/04/2021 TECHNIQUE: Biphasic, helical CT imaging of the abdomen and pelvis was performed following 100 ml non -ionic IV contrast. No oral contrast. All CT scans are performed using dose optimization technique as appropriate and may include automated exposure control or mA/KV adjustment according to patient size. FINDINGS: No suspicious findings in the lung bases. Liver shows mild diffuse fatty infiltration pattern with no focal lesion. No portal vein abnormality. Spleen and pancreas show no suspicious findings. Small gallstones are seen near the neck. No biliary tree dilatation. Symmetric renal function is seen with no hydronephrosis or suspicious renal mass. A 3.6 centimeter si mple cyst present upper pole right kidney. Small calcification in the right renal parenchyma near the cyst noted. This is not believed to be part of the cyst. No pyelonephritis or acute parenchymal proc ess. No bladder abnormalities. No adrenal abnormalities. Uterus and ovaries show no suspicious findin gs. No dilated bowel loops or bowel wall thickening. Appendix is normal. No free air, free fluid or infla mmatory stranding. No hernia, mass or bulky lymphadenopathy. No suspicious bony findings. IMPRESSION: Contrast enhanced CT abdomen and pelvis showing no acute or emergent finding. Nonacute findings detailed in the body of the report. No significant change comparison.
[2021-03-29 20:35] LABS: Urine Blood Negative (Negative); Urine Glucose Negative (Negative); Urine Protein Negative (Negative); Urine Specific Gravity 1.015 (1.005-1.030); Urine pH 7.5 (5.0-7.0)
--- NOTE | 2021-03-29 20:59 | EDPHYS ---
Physician Documentation [facility] Name: Lorri Dotson Age: 70 yrs Sex: Female : 1950 Arrival Date: 03/29/2021 Time: 16:46 Bed 24 Private MD: ED Physician Esvin Crum HPI: 03/29 18:39 This 70 yrs old Female presents to ER via Ambulatory with complaints of kb Abdominal Pain, Jaw Pain. 18:39 The patient presents with abdominal pain in the upper abdomen. Onset: The kb symptoms/episode began/occurred yesterday. The symptoms do not radiate. Associated signs and symptoms: Pertinent positives: nausea, shortness of breath, Pertinent negatives: fever, vomiting. The symptoms are described as constant. Modifying factors: The symptoms are alleviated by nothing, the symptoms are aggravated by nothing. Severity of pain: At its worst the pain was moderate in the emergency department the pain is unchanged. The patient has not experienced similar symptoms in the past. The patient has not recently seen a physician. Pt reports abd pain, nausea and difficulty breathing since yesterday. Denies v/d, fever, chills, cough, congestion. Historical: - Allergies: 17:13 No Known Allergies; ss - Home Meds: 17:10 Plavix 75 mg Oral tab 1 tab once daily [Active]; Pepcid 20 mg Oral tab 1 tab once daily ss [Active]; metformin 1,000 mg Oral tab 2 times per day [Active]; lovastatin 10 mg Oral tab 1 tab once daily [Active]; lisinopril 20 mg Oral tab 1 tab once daily [Active]; glimepiride 4 mg Oral tab 1 tab once daily [Active]; atorvastatin 20 mg Oral tab 1 tab once daily [Active]; aspirin 81 mg Oral chew 1 tab once daily [Active]; - PMHx: 17:10 Brain bleed; Diabetes - NIDDM; High Cholesterol; Hypertension; TIA; ss - Immunization history:: Adult Immunizations up to date. - Social history:: Smoking status: Patient denies any tobacco usage or history of. ROS: 18:38 Constitutional: Negative for fever, chills, and weight loss. kb 18:38 Respiratory: Positive for shortness of breath. 18:38 Abdomen/GI: Positive for abdominal pain, nausea, Negative for vomiting, diarrhea. 18:38 All other systems are negative. Exam: 18:38 Constitutional: This is a well developed, well nourished patient who is awake, alert, kb and in no acute distress. Head/Face: Normocephalic, atraumatic. ENT: Moist Mucous membranes Cardiovascular: Regular rate and rhythm with a normal S1 and S2. No gallops, murmurs, or rubs. No pulse deficits. Respiratory: Respirations even and unlabored. No increased work of breathing. Talking in full sentences Skin: Warm, dry with normal turgor. Normal color. MS/ Extremity: Pulses equal, no cyanosis. Neurovascular intact. Full, normal range of motion. Neuro: Awake and alert, GCS 15, oriented to person, place, time, and situation. Moves all extremities. Normal gait. Psych: Awake, alert, with orientation to person, place and time. Behavior, mood, and affect are within normal limits. 18:38 Abdomen/GI: Inspection: abdomen appears normal, Bowel sounds: normal, in all quadrants, Palpation: soft, in all quadrants, mild abdominal tenderness, in the abdomen diffusely. Vital Signs: 17:00 BP 127 / 80; Pulse 90; Resp 18; Temp 98.5(O); Pulse Ox 97% ; Weight 77.11 kg; Height 5 ss ft. 4 in. (162.56 cm); Pain 10/10; 18:21 BP 115 / 61; Pulse 87; Resp 16; Pulse Ox 98% on R/A; ab2 19:45 BP 114 / 54; Pulse 84; Resp 16; Pulse Ox 98% ; ab2 21:10 BP 120 / 88; Pulse 81; Resp 16; Pulse Ox 100% on R/A; ab2 17:00 Body Mass Index 29.18 (77.11 kg, 162.56 cm) ss MDM: 18:12 Patient medically screened. kb 18:38 Data reviewed: vital signs, nurses notes. Data interpreted: Pulse oximetry: on room air kb is 98 %. Interpretation: normal. 20:58 Counseling: I had a detailed discussion with the patient and/or guardian regarding: the kb historical points, exam findings, and any diagnostic results supporting the discharge/admit diagnosis, lab results, radiology results, the need for outpatient follow up, a family practitioner, to return to the emergency department if symptoms worsen or persist or if there are any questions or concerns that arise at home. 03/29 17:13 Order name: Basic Metabolic Panel; Complete Time: 18:12 ss 03/29 17:13 Order name: CBC with Diff; Complete Time: 18:12 ss 03/29 17:13 Order name: LFT's; Complete Time: 18:12 ss 03/29 17:13 Order name: Magnesium; Complete Time: 18:12 ss 03/29 17:13 Order name: NT PRO-BNP; Complete Time: 18:12 ss 03/29 17:13 Order name: PT-INR; Complete Time: 18:12 ss 03/29 17:13 Order name: Troponin HS; Complete Time: 18:12 ss 03/29 17:13 Order name: XRAY Chest (1 view); Complete Time: 18:25 ss 03/29 18:25 Order name: COVID-19 SARS RT PCR (Document "Date of Onset" if Symptomatic); Complete kb Time: 20:24 03/29 18:25 Order name: CT Abd/Pelvis - IV Contrast Only; Complete Time: 19:39 kb 03/29 20:35 Order name: Urine Dipstick-Ancillary; Complete Time: 20:37 EDMS 03/29 17:13 Order name: Cardiac monitoring; Complete Time: 18:21 ss 03/29 17:13 Order name: EKG - Nurse/Tech; Complete Time: 17:18 ss 03/29 17:13 Order name: IV Saline Lock; Complete Time: 18:21 ss 03/29 17:13 Order name: Labs collected and sent; Complete Time: 18:11 ss 03/29 17:13 Order name: O2 Per Protocol; Complete Time: 18:21 ss 03/29 17:13 Order name: O2 Sat Monitoring; Complete Time: 18:21 ss 03/29 20:24 Order name: Urine Dipstick-Ancillary (obtain specimen); Complete Time: 20:34 kb Administered Medications: 18:40 Drug: NS 0.9% 500 ml Route: IV; Rate: bolus; Site: right antecubital; ab2 18:58 Drug: Zofran (Ondansetron) 4 mg Route: IVP; Site: right antecubital; ab2 18:59 Drug: fentaNYL (PF) 50 mcg Route: IVP; Site: right antecubital; ab2 Disposition Summary: 03/29/21 20:59 Discharge Ordered Location: Home kb Condition: Stable kb Diagnosis - Abdominal pain, Generalized kb Followup: kb - With: Emergency Department - When: As needed - Reason: Worsening of condition Followup: kb - With: Private Physician - When: 2 - 3 days - Reason: Recheck today's complaints, Continuance of care, Re-evaluation by your physician Discharge Instructions: - Discharge Summary Sheet kb - Abdominal Pain, Adult, [id number] kb Forms: - Medication Reconciliation Form kb - Thank You Letter kb - Antibiotic Education kb - Prescription Opioid Use kb Prescriptions: - Zofran 4 mg Oral Tablet - take 1 tablet by ORAL route every 6 hours As needed; 20 tablet; Refills: 0, kb Product Selection Permitted - dicyclomine 20 mg Oral Tablet - take 1 tablet by ORAL route 4 times per day As needed; 20 tablet; Refills: 0, kb Product Selection Permitted Addendum: 03/31/2021 00:10 Co-signature as Attending Physician, Esvin Crum MD I agree with the assessment and k plan of care. Signatures: Dispatcher [employer] EDMS Grace Florence, MANNEQUIN MAKER-C MANNEQUIN MAKER-Ckb Esvin Crum MD MD kdr Smirch, Shelby, RN RN Reji Mcfarland
--- NOTE | 2021-03-29 20:59 | ER ---
Nurse's Notes [facility] Name: Lorri Dotson Age: 70 yrs Sex: Female : 1950 Arrival Date: 03/29/2021 Time: 16:46 Bed 24 Private MD: Diagnosis: Abdominal pain, Generalized Presentation: 03/29 17:00 Chief complaint: Patient states: yesterday afternoon started having abdominal pain and ss jaw pain; denies chest pain. Abdominal and jaw pain has not gone away since yesterday afternoon; constant pain with belching and no relief. Coronavirus screen: Vaccine status: Patient reports receiving the 2nd dose of the covid vaccine. Client denies travel out of the [place] in the last 14 days. Ebola Screen: Patient negative for fever greater than or equal to 101.5 degrees Fahrenheit, and additional compatible Ebola Virus Disease symptoms Patient denies exposure to infectious person. Patient denies travel to an Ebola-affected area in the 21 days before illness onset. Initial Sepsis Screen: Does the patient meet any 2 criteria? No. Patient's initial sepsis screen is negative. Does the patient have a suspected source of infection? No. Patient's initial sepsis screen is negative. Risk Assessment: Do you want to hurt yourself or someone else? Patient reports no desire to harm self or others. Onset of symptoms was March 28, 2021 at 17:00. 17:00 Method Of Arrival: Ambulatory ss 17:00 Acuity: SARAI 3 ss Triage Assessment: 17:10 General: Appears uncomfortable, slender, well groomed, well developed, Behavior is ss calm, cooperative, appropriate for age, anxious, crying. Pain: Complains of pain in upper abdomen and jaw pain. GI: Reports upper abdominal pain, gaseousness, indigestion. Historical: - Allergies: 17:13 No Known Allergies; ss - Home Meds: 17:10 Plavix 75 mg Oral tab 1 tab once daily [Active]; Pepcid 20 mg Oral tab 1 tab once daily [Active]; metformin 1,000 mg Oral tab 2 times per day [Active]; lovastatin 10 mg Oral tab 1 tab once daily [Active]; lisinopril 20 mg Oral tab 1 tab once daily [Active]; glimepiride 4 mg Oral tab 1 tab once daily [Active]; atorvastatin 20 mg Oral tab 1 tab once daily [Active]; aspirin 81 mg Oral chew 1 tab once daily [Active]; - PMHx: 17:10 Brain bleed; Diabetes - NIDDM; High Cholesterol; Hypertension; TIA; ss - Immunization history:: Adult Immunizations up to date. - Social history:: Smoking status: Patient denies any tobacco usage or history of. Screenin:12 Abuse screen: Denies threats or abuse. Denies injuries from another. Nutritional ss screening: No deficits noted. Tuberculosis screening: No symptoms or risk factors identified. Fall Risk None identified. Assessment: 18:19 General: Appears in no apparent distress. comfortable, Behavior is calm, cooperative, ab2 appropriate for age. Pain: Complains of pain in abdomen Pain currently is 7 out of 10 on a pain scale. Neuro: Level of Consciousness is awake, alert, obeys commands, Oriented to person, place, time, situation, Appropriate for age Cover Assembler are equal bilaterally Moves all extremities. Gait is steady, Speech is normal. Cardiovascular: No deficits noted. Denies chest pain, Heart tones S1 S2 present. Respiratory: No deficits noted. Reports shortness of breath Airway is patent Respiratory effort is even, unlabored, Respiratory pattern is regular, symmetrical, Breath sounds are clear bilaterally. GI: Abdomen is round non-distended, Bowel sounds present X 4 quads. Abdomen is tender to palpation X 4 quads. Reports lower abdominal pain, upper abdominal pain. : No deficits noted. No signs and/or symptoms were reported regarding the genitourinary system. EENT: No deficits noted. No signs and/or symptoms were reported regarding the EENT system. Derm: No deficits noted. No signs and/or symptoms reported regarding the dermatologic system. Skin is intact, is healthy with good turgor, Skin is dry, Skin is pink, warm \\T\\ dry. Musculoskeletal: No deficits noted. No signs and/or symptoms reported regarding the musculoskeletal system. Vital Signs: 17:00 BP 127 / 80; Pulse 90; Resp 18; Temp 98.5(O); Pulse Ox 97% ; Weight 77.11 kg; Height 5 ss ft. 4 in. (162.56 cm); Pain 10/10; 18:21 BP 115 / 61; Pulse 87; Resp 16; Pulse Ox 98% on R/A; ab2 19:45 BP 114 / 54; Pulse 84; Resp 16; Pulse Ox 98% ; ab2 21:10 BP 120 / 88; Pulse 81; Resp 16; Pulse Ox 100% on R/A; ab2 17:00 Body Mass Index 29.18 (77.11 kg, 162.56 cm) ED Course: 16:46 Patient arrived in ED. ds1 17:09 Triage completed. ss 17:10 Arm band placed on left wrist. ss 17:12 Patient has correct armband on for positive identification. ss 17:19 EKG done, by ED staff, reviewed by Esvin Crum MD. mh5 17:50 XRAY Chest (1 view) In Process Unspecified. EDMS 18:12 Grace Florence FNP-C [facility]. kb 18:12 Esvin Crum MD is Attending Physician. kb 18:19 Reji Guerrero is Primary Nurse. ab2 18:22 Inserted saline lock: 20 gauge in right antecubital area, using aseptic technique. ab2 18:37 COVID-19 SARS RT PCR (Document "Date of Onset" if Symptomatic) Sent. ab2 19:19 CT Abd/Pelvis - IV Contrast Only In Process Unspecified. EDMS 21:09 No provider procedures requiring assistance completed. IV discontinued, intact, ab2 bleeding controlled, No redness/swelling at site. Pressure dressing applied. Administered Medications: 18:40 Drug: NS 0.9% 500 ml Route: IV; Rate: bolus; Site: right antecubital; ab2 18:58 Drug: Zofran (Ondansetron) 4 mg Route: IVP; Site: right antecubital; ab2 18:59 Drug: fentaNYL (PF) 50 mcg Route: IVP; Site: right antecubital; ab2 Outcome: 20:59 Discharge ordered by . kb 21:09 Discharged to home ambulatory, with family. ab2 21:09 Condition: good 21:09 Discharge instructions given to patient, family, Instructed on discharge instructions, follow up and referral plans. medication usage, Demonstrated understanding of instructions, follow-up care, medications, Prescriptions given X 2. 21:10 Patient left the ED. ab2 Signatures: Dispatcher [employer] EDMS Grace Florence FNP-C FNP-Kath Arce ds1 Elba Davis RN RN ss Martinez, Maria mh5 Reji Guerrero2 Corrections: (The following items were deleted from the chart) 18:12 17:12 No provider procedures requiring assistance completed. jordy spence
[2021-03-29 22:37] VITALS: TEMP 98.5
[2021-03-29 22:40] VITALS: BP 120/88; O2SAT 100
--- NOTE | 2021-03-30 13:06 | EKG ---
Test Date: 2021-03-29 Test Time: 17:12:58 Dancing Master: JOSE MEASUREMENT RESULTS: Intervals: Rate: 87 NH: 138 QRSD: 76 QT: 390 QTc: 469 [place]: P: 24 NH: 138 QRS: 27 T: 41 INTERPRETIVE STATEMENTS: Sinus rhythm with occasional premature ventricular complexes Otherwise normal ECG Compared to ECG 03/04/2021 17:32:53 Ventricular premature complex(es) now present Electronically Signed On 03-30-21 13:03:03 AIR CHIPPER by Bennie Camejo
== END 2021-03-29 21:10 | disposition home or self-care (01) ==
LOC: ER 16:44
DX: R10.84 Generalized abdominal pain (principal); Z20.822 Contact with and (suspected) exposure to COVID-19; I10 Essential (primary) hypertension; E11.9 Type 2 diabetes mellitus without complications; Z79.01 Long term (current) use of anticoagulants; Z79.82 Long term (current) use of aspirin; Z86.73 Personal history of transient ischemic attack (TIA), and cerebral infarction without residual deficits
CPT/HCPCS: 93005; 85025; 80048; 36415; 83735; 85610; 80076; 81003; 84484; 83880; 74177; 71045; 96375; 96374; 99284; U0003; Q9967; J3010; J7040; J2405

== ENCOUNTER 2021-05-07 07:21 | Day surgery (SDC) | payer OTHER ==
[2021-05-01 14:59] LABS: Absolute Lymphocytes (CBC) 3.5 K/uL (0.7-4.9); Hematocrit 39.1 % (36.0-45.0); Lymphocytes % 32.8 % (15.3-44.8); MPV 7.3 fL (7.6-11.3); RBC Red Blood Cell Count 4.27 M/uL (3.86-4.86)
[2021-05-01 15:23] LABS: ALT/SGPT 39 U/L (12-78); AST/SGOT 19 U/L (15-37); Albumin 3.9 g/dL (3.4-5.0); Alkaline Phosphatase 81 U/L (45-117); Amylase 34 U/L (25-115); BUN Blood Urea Nitrogen 14 mg/dL (7-18); Bicarbonate 27 mmol/L (21-32); Bilirubin Total 0.2 mg/dL (0.2-1.0); Glucose Level 156 mg/dL (74-106); Lipase 230 U/L (73-393); Potassium 4.1 mmol/L (3.5-5.1); Protein, Total 7.9 g/dL (6.4-8.2); Sodium Level 138 mmol/L (136-145)
[2021-05-01 15:25] LABS: Bilirubin Direct < 0.1 mg/dL (0-0.2)
[2021-05-07] MEDS ORDERED: CEFOXITIN SODIUM 1 GM/VIAL ONE (07:44)
[2021-05-07] MEDS: NA CHLORIDE 0.9% 1,000 ML ONE ×2 (07:48→09:06)
[2021-05-07] MEDS ORDERED: propofoL 200 MG/20 ML VIAL IV ONE (08:17)
[2021-05-07] MEDS ORDERED: FENTANYL CITR 100 MCG/2 ML ONE (08:17)
[2021-05-07] MEDS ORDERED: GLYCOPYRROLATE 0.2 MG/ML SYR ONE (08:18)
[2021-05-07] MEDS ORDERED: NEOSTIGMINE 1 MG/ML -5 ML ONE (08:18)
[2021-05-07] MEDS ORDERED: MIDAZOLAM HCL 2 MG/2 ML INJ ONE (08:18)
[2021-05-07] MEDS ORDERED: LIDOCAINE 1% MPF 5 ML VIAL ONE (08:18)
[2021-05-07] MEDS ORDERED: ONDANSETRON 4 MG/2 ML VIAL ONE (08:19)
[2021-05-07] MEDS ORDERED: MORPHINE 10 MG/ML VIAL ONE (08:19)
[2021-05-07] MEDS ORDERED: KETOROLAC 30 MG/ML INJ ONE (08:19)
[2021-05-07] MEDS ORDERED: METOCLOPRAMIDE 10 MG/2mL INJ ONE (08:20)
[2021-05-07] MEDS ORDERED: ROCURONIUM 50 MG/5 ML VIAL IV ONE (08:20)
[2021-05-07] MEDS ORDERED: Ringers Lactate 1,000 ML IV ONE (09:11)
--- NOTE | 2021-05-07 09:14 | P.BOP ---
Preoperative diagnosis: Acute cholecystitis, symptomatic cholelithiasis, RUQ abd pain Postoperative diagnosis: same Primary procedure: Laparoscopic cholecystectomy Estimated blood loss: <10cc Specimen: gb Findings: as above Anesthesia: General Complications: None Transferred to: Recovery Room Condition: Good
[2021-05-07] MEDS ORDERED: EPINEPHRINE INH 0.5 ML VIAL IH ONE (09:38)
[2021-05-07 09:46] VITALS: O2SAT 97
[2021-05-07 10:18] VITALS: BP 133/53; TEMP 97.3
--- NOTE | 2021-05-07 13:43 | OP ---
Date of Procedure: 05/07/2021 Surgeon: Placido Adair MD Preoperative Diagnoses: Acute cholecystitis, symptomatic cholelithiasis, right upper quadrant abdomi nal pain. Postoperative Diagnoses: Acute cholecystitis, symptomatic cholelithiasis, right upper quadrant abdom inal pain. Procedure: Laparoscopic cholecystectomy. Estimated Blood Loss: Less than 10 mL. Specimen: Gallbladder. Anesthesia: General plus local. Indication: This is the case of a female, who comes to us with above diagnosis. Fully explained the benefits, alternatives, and risks of laparoscopic possible open cholecystectomy, which include, but not limited to infection, bleeding, damage to adjacent structures, anesthesia complication, choledoch olithiasis, bile leak, pancreatitis, [place], and even . She also understands this may not relieve a ny symptoms. She might need more than one surgical intervention. She understood, signed a consent. Procedure In Detail: The patient was brought to the operating room, placed in supine position. Anes thesia was done without complication. Abdominal area was prepped and draped in the usual sterile fas hion. A time-out was called. Marcaine 0.5% was injected for local anesthetic followed by sharp inci marc of the skin in the infraumbilical region. Incision was carried down to fascia, which was opened under direct vision. Peritoneum was encountered, opened under direct vision. Vicryl #1 placed insi de the fascia. Jacqueline trocar was carefully introduced. Pneumoperitoneum was obtained. I placed 3 m ore trocars under direct visualization, 5 mm each one of them. After that, I put a grasper in the fu ndus of the gallbladder, another grasper in the infundibulum, retracting the gallbladder in the infer olateral fashion, exposing the triangle of Calot and obtaining critical view. Cystic duct and cystic artery were clearly isolated, freed circumferentially and a connection between those and the gallbla dder was clearly identified. I proceeded to ligate those by using at least 3 clips proximal, 1 clip distal, ligation in middle. Same was done with the cystic artery. No bile leak. No bleeding. At t hat moment, I removed the trocars under direct visualization and deflated the pneumoperitoneum. Clos ed the fascia with #1 Vicryl. Irrigated subcutaneous tissue, closed that with 3-0 chromic and skin w ith 3-0 chromic and Steri-Strips on top. Sponge count and instrument counts correct. The patient to lerated the procedure well. The patient was sent to recovery in stable condition. EDWIN/MODFatou Voice ID: [id number] Report ID: [id number]
--- NOTE | 2021-05-07 13:49 | DS ---
Date of Discharge: 05/07/2021 Diagnoses: Acute cholecystitis, symptomatic cholelithiasis, right upper quadrant abdominal pain. Procedure: Laparoscopic cholecystectomy. Disposition: Home. Activity: As tolerated. No heavy lifting. Plan: Follow up in my office in 1 week. Call for appointment at [phone]. Keep area dry for 48 jerrod rs, then may shower. Keep Steri-Strip intact. EDWIN/GAYLE Voice ID: [id number] Report ID: [id number]
== END 2021-05-07 11:00 | disposition home or self-care (01) ==
LOC: OR 07:21
PROVIDERS: ATTEND Surgery
PROC: 0FT40ZZ Resection of Gallbladder, Open Approach (ICD-10-PCS; 2021-05-07)
PROC: 0FJ44ZZ Inspection of Gallbladder, Percutaneous Endoscopic Approach (ICD-10-PCS; principal; 2021-05-07 08:30)
DX: K80.10 Calculus of gallbladder with chronic cholecystitis without obstruction (principal); R10.11 Right upper quadrant pain; Z20.822 Contact with and (suspected) exposure to COVID-19
CPT/HCPCS: 85025; 80048; 36415; 82150; 82947 ×2; 80076; 88304; 83690; 47600; U0002; J2704; J2765; J2250; J3010; J2710; J7120; J7030; J0694; J2405